=== PATIENT | male | born 1950 | race Caucasian/White ===

== ENCOUNTER → 2018-12-24 07:52 | Outpatient (CLI) | payer MEDICARE, OTHER, SELFPAY ==
[2018-12-24 08:39] LABS: Add Manual Diff / Slide Review NO; Basophils Absolute Auto 100 /uL; Basophils Percent Auto 0.8 %; Eosinophils Absolute Auto 500 /uL; Eosinophils Percent Auto 6.2 %; Hematocrit 48.8 %; Hemoglobin 16.4 g/dL; Lymphocytes Absolute Auto 2100 /uL; Lymphocytes Percent Auto 26.5 %; Mean Corpuscular HGB Conc 33.6 %; Mean Corpuscular Volume 98.3 fL; Monocytes Absolute Auto 700 /uL; Monocytes Percent Auto 8.9 %; Neutrophils Absolute Auto 4600 /uL; Neutrophils Percent Auto 57.6 %; Red Blood Cell Count 4.96 X10^6/uL; Red Cell Distribution Width 14.3 %
[2018-12-24 09:10] LABS: Platelet Count 222 X10^3/uL
[2018-12-24 10:39] LABS: TSH w/ Reflex to FT4 3.08 uIU/mL
[2018-12-24 12:26] LABS: Alanine Aminotransferase 27 IU/L; Albumin 4.2 g/dL; Albumin Globulin Ratio 1.3; Alkaline Phosphatase 58 U/L; Aspartate Aminotransferase 25 IU/L; BUN Creatinine Ratio 21.4; Bilirubin Total 0.6 mg/dL; Blood Urea Nitrogen 15 mg/dL; Carbon Dioxide 21 mmol/L; Chloride 109 mmol/L; Cholesterol 217 mg/dL; Estimated Glomerular Filt Rate > 60.0 mL/min; Globulin 3.3 g/dL; Glucose 95 mg/dL; HDL Cholesterol 49 mg/dL; HEMOLYSIS < 15; LDL Cholesterol Calculated 146 mg/dL; Potassium 4.3 mmol/L; Sodium 139 mmol/L; Total Protein 7.5 g/dL; Triglycerides 111 mg/dL
== END ==
PROVIDERS: Visit Provider Internal Medicine
DX: M15.0 Primary generalized (osteo)arthritis (principal); I10 Essential (primary) hypertension; E78.00 Pure hypercholesterolemia, unspecified; E04.1 Nontoxic single thyroid nodule
CPT/HCPCS: 36415; 80053; 80061; 84443; 85025

== ENCOUNTER → 2018-12-30 13:09 | Outpatient (CLI) | payer MEDICARE, OTHER, SELFPAY ==
--- NOTE | 2018-12-30 | DI.US.S_ITS ---
PROCEDURE: US THYROID INDICATIONS: BILE DUCT DILATION/THYROID NOD TECHNIQUE: Real-time scanning was performed of the thyroid gland, with image documentation. COMPARISON: None. FINDINGS: Right: The right thyroid lobe measures 1.5 x 1.4 x 3.9 cm and contains a single small nodule, measuring up to 9 x 5 x 7 mm at the inferior third of the gland. This is solid, hypoechoic, smoothly marginated and shows no abnormal internal calcifications Left: The left thyroid lobe measures up to 2.1 x 2.2 x 3.4 cm and is slightly enlarged at its middle third by a dominant nodule measuring up to 2.6 x 1.6 x 1.5 cm. This is solid, isoechoic, smoothly marginated and contains no internal calcifications Isthmus: The isthmus appears normal IMPRESSION: Asymmetric thyroid nodules, one each bilaterally, with a small nodule at the inferior third of the right thyroid lobe a dominant nodule measuring up to 2.7 x 1.6 x 1.5 cm at the middle third of the left thyroid lobe. Biopsy of this dominant mass may be warranted depending on clinical status. Dictated by: Josue Olivares M.D. on 12/30/2018 at 17:02 Approved by: Josue Olivares M.D. on 12/30/2018 at 17:04
--- NOTE | 2018-12-30 | DI.US.S_ITS ---
PROCEDURE: US ABDOMEN COMPLETE INDICATIONS: BILE DUCT DILATION/THYROID NOD TECHNIQUE: Real-time scanning was performed of the abdominal and retroperitoneal organs, with image documentation. COMPARISON: None. FINDINGS: Liver: Liver is normal in size and homogeneous in echotexture. A benign-appearing calcification is present within the right hepatic lobe. Gallbladder: The gallbladder is surgically absent. Biliary ducts: Intrahepatic bile ducts are non-dilated. Extrahepatic bile duct caliber measures 11.2 mm. Normal is 6-7 mm or less in diameter, or 10 mm or less post-cholecystectomy. Pancreas: Visualized portions of the pancreas are sonographically normal. Spleen: Spleen is normal in size and homogeneous in echotexture. Kidneys: Kidneys are normal in size and echotexture. Right kidney measures 9.1 cm long; left kidney measures 11.0 cm long. No hydronephrosis or nephrolithiasis. No solid masses. Aorta: Visualized aorta is normal in caliber at less than 3 cm. Iliacs: Proximal common iliac arteries are normal in caliber at less than 2.5 cm. IVC: Intrahepatic inferior vena cava is patent. Miscellaneous: No free abdominal fluid. IMPRESSION: 1. Mild ectasia of the common bile duct which may be associated with prior cholecystectomy. No intrahepatic biliary ductal dilatation. Dictated by: Jerica Webb M.D. on 12/30/2018 at 15:47 Approved by: Jerica Webb M.D. on 12/30/2018 at 15:51
== END ==
PROVIDERS: Visit Provider Internal Medicine
DX: K83.8 Other specified diseases of biliary tract (principal); E04.2 Nontoxic multinodular goiter; Z90.49 Acquired absence of other specified parts of digestive tract
CPT/HCPCS: 76536; 76700

== ENCOUNTER → 2019-01-10 07:56 | Outpatient (CLI) | payer MEDICARE, OTHER, SELFPAY ==
[2019-01-10 10:02] LABS: Free T3, Triiodothyronine Free 3.73 pg/mL (2.77-5.27); Free T4, Direct Thyroxine 0.83 ng/dL (0.78-2.19)
[2019-01-10 10:15] LABS: Thyroid Stimulating Hormone 2.58 uIU/mL (0.47-4.68)
== END ==
PROVIDERS: Visit Provider Internal Medicine
DX: E04.1 Nontoxic single thyroid nodule (principal)
CPT/HCPCS: 36415; 84439; 84443; 84481

== ENCOUNTER → 2019-03-20 07:43 | Outpatient (CLI) | payer MEDICARE, OTHER, SELFPAY ==
[2019-03-20 08:48] LABS: Alanine Aminotransferase 24 IU/L (21-72); Cholesterol 176 mg/dL (140-199); HDL Cholesterol 62 mg/dL (40-60); LDL Cholesterol Calculated 94 mg/dL (<100); Triglycerides 101 mg/dL (35-150)
[2019-03-20 12:28] LABS: Aspartate Aminotransferase 28 IU/L (17-59)
== END ==
PROVIDERS: PCP Internal Medicine; Visit Provider Internal Medicine
DX: E78.00 Pure hypercholesterolemia, unspecified (principal)
CPT/HCPCS: 36415; 80061; 84450; 84460

== ENCOUNTER 2019-04-14 16:18 | Emergency (ER) | payer MEDICARE, OTHER, SELFPAY ==
[2019-04-14] VITALS (12 sets, daily range): BP systolic 151–178; BP diastolic 89–101; PULSE 52–88; RESP 14–21; TEMP 36.6–36.7; O2SAT 95–98
--- NOTE | 2019-04-14 16:37 | DI.CT.S_ITS ---
PROCEDURE: CT HEAD/BRAIN WO CON INDICATIONS: loss of vision on left @ 345pm TECHNIQUE: Noncontrast 4.5 mm thick angled axial sections acquired from the foramen magnum to the vertex, with coronal and sagittal reformats. For radiation dose reduction, the following was used: automated exposure control, adjustment of mA and/or kV according to patient size. COMPARISON: None. FINDINGS: Image quality: Excellent. CSF spaces: Basal cisterns are patent. No extra-axial fluid collections. The ventricles are symmetric in size and shape. Brain: There is a 6.5 x 3.8 x 7 cm focus of intraparenchymal hemorrhage seen is seen within the right frontal lobe, also extending into the posterior right temporal lobe, the posterior right frontal lobe, and the right occipital lobe. There is surrounding edema seen. Mass effect is seen, with midline shift of 4 mm. There is cerebral volume loss for age, with resultant ventricular and sulcal prominence. There are periventricular and deep white matter chronic small vessel ischemic changes. There is intracranial internal carotid artery atherosclerosis. Skull and face: Calvarium and visualized facial bones appear intact, without suspicious lesions. Sinuses: Visualized sinuses and mastoids are clear. IMPRESSION: 7 cm focus of intraparenchymal hemorrhage, which is centered within the right parietal lobe. There is associated mass effect, with 4 mm of midline shift. An urgent or surgical referral is recommended. Note: Critical findings and recommendations discussed by telephone with Dr. Smith at 5 PM on 04/14/19. Dictated by: Pradeep Zarco M.D. on 04/14/2019 at 15:57 Approved by: Pradeep Zarco M.D. on 04/14/2019 at 16:02
[2019-04-14 16:46] LABS: Add Manual Diff / Slide Review NO; Basophils Absolute Auto 100 /uL (0-100); Basophils Percent Auto 0.9 % (0-2); Eosinophils Absolute Auto 200 /uL (0-450); Eosinophils Percent Auto 2.7 % (2-4); Lymphocytes Absolute Auto 2000 /uL (1100-4500); Lymphocytes Percent Auto 22.9 % (25-40); Mean Corpuscular HGB Conc 34.1 % (30-36); Mean Corpuscular Hemoglobin 33.6 PG (26-34); Mean Corpuscular Volume 98.7 fL (80-100); Monocytes Absolute Auto 700 /uL (0-900); Monocytes Percent Auto 8.1 % (3-14); Neutrophils Absolute Auto 5600 /uL (1500-7000); Neutrophils Percent Auto 65.4 % (50-75); Platelet Count 202 X10^3/uL (150-400); Red Blood Cell Count 4.76 X10^6/uL (4.5-5.9); White Blood Cell Count 8.5 X10^3/uL (4.5-11.0)
--- NOTE | 2019-04-14 16:51 | ED.NEUROSD ---
HPI - Neuro Symptoms/Deficit General Chief Complaint: Neuro Symptoms/Deficit Stated Complaint: CONFUSED DIZZY UNABLE TO SEE Time Seen by Provider: 04/14/19 16:37 Source: patient and family () Mode of arrival: ambulatory Limitations: no limitations History of Present Illness HPI Narrative: This is a 68-year-old male comes to the emergency department with complaint of loss of vision on the left side. states that she came home today and patient was at the door. He could not see the car which was in front of him. He seems sort of confused and missing things in his vision. She states that she did notice any obvious speech changes. She did notice any obvious weakness. Patient then started complaining of a severe headache he has been nauseated but not had any vomiting. Patient states that he does not have any chest pain, no shortness of breath. He denies any weakness or numbness in his extremities. He does notice his vision changes. He takes an aspirin daily but denies any other blood thinners. He does take medication for hypertension and dyslipidemia. On Anticoagulants: Yes (ASA 81 mg po daily) Related Data Home Medications Medication Instructions Recorded Confirmed aspirin [Aspirin Low Dose] 81 mg PO DAILY 04/14/19 04/14/19 omeprazole magnesium [Prilosec OTC] 20 mg PO DAILY 04/14/19 04/14/19 Allergies Allergy/AdvReac Type Severity Reaction Status Date / Time No Known Drug Allergies Allergy Verified 04/14/19 16:27 Review of Systems Review of Systems ROS Unobtainable: All systems reviewed & are unremarkable except as noted in HPI and below Eyes Reports loss of vision (Left vision loss) Neurologic Reports loss of vision (Left vision loss) [facility] Social History Smoking Status: Current every day smoker Social History Smoking Status: Current every day smoker Exam Narrative Exam Narrative: GEN: well nourished, well appearing elderly male, alert and oriented x 3, patient appears to be in mild distress. HEENT: Atraumatic, pupils are equal round reactive to light, patient has lateral gaze to the right, he does appear to have vision loss on the left, nares are clear, TMs are clear with no fluid, there is no conjunctival pallor. Throat is clear without any exudates, erythema, tonsillar enlargement or uvular deviation, no obvious facial droop. HEART: Regular rate and rhythm without murmur, clicks, rubs. Pulses are equal in upper and lower extremities LUNGS:Lungs clear to auscultation, no wheezes, rales, crackles, chest moves symmetrically ABD:bowel sounds normal, soft, non-tender, no guarding, rebound, rigidity, no masses noted, no hepatosplenomegaly :No CVA tenderness MSCL: Non-tender, no muscle atrophy, muscles strength 5/5 upper and lower extremities, full range of motion NEURO:CN 2-12 intact, sensation normal, reflexes 2/4 upper and lower extremities. finger nose finger test normal, heel sidhu test normal, no dysarthria although patient has a strong accent. No aphasia appreciated. Patient states he does not feel touch on the left lower upper extremity or left side of the face. Initial Vital Signs Initial Vital Signs: Vital Signs Temperature 98.1 F 04/14/19 16:22 Pulse Rate 88 04/14/19 16:22 Respiratory Rate 14 04/14/19 16:22 Blood Pressure 178/97 H 04/14/19 16:22 Pulse Oximetry 97 04/14/19 16:22 Scores GCS Gilby coma scale eye opening: Spontaneous Kanwal coma scale verbal response: Orientated Kanwal coma scale motor response: Obey commands Kanwal coma scale total score: 15 NIH Stroke Scale Level of Conciousness: Alert, keenly responsive Ask month/age: Answers both questions correctly. Open/close eyes, close hand: Performs both tasks correctly Best gaze horizontal: Forced deviation or total gaze paresis not overcome Visual graves: Complete hemianopia Facial palsy: Minor paralysis, flattened nasolabial fold, asymmetry on smiling Left arm drift: No drift for full 10 sec Right arm drift: No drift for full 10 sec Left leg drift: No drift for full 10 sec Right leg drift: No drift for full 10 sec Limb ataxia: Absent Sensory on face/arms/legs: Severe to total sensory loss, not aware of touch, coma, quadriplegic Best language: No aphasia, normal Dysarthria: Normal Extinction or inattention: Profound vale-inattention. Does not recognize own hand, one side Total NIH Stroke scale score: 9 Course Orders Ordered: ED Orders 04/14/19 16:28 EKG-12 Lead Stat 04/14/19 16:35 Basic Metabolic Panel Stat Complete Blood Count AUTO DIFF Stat Partial Thromboplastin Time Stat Prothrombin Time INR Stat Troponin I Stat 04/14/19 16:37 CT head/brain wo con Stat Urine Drug Screen, Rapid Stat Discontinued Medications Sodium Chloride (Normal Saline 0.9%) 1,000 mls @ 150 mls/hr IV CONT JOSE Last Admin: 04/14/19 16:56 Dose: 150 mls/hr Esmolol HCl (Brevibloc) 2.5 gm in 250 mls @ 0 mls/hr IV TITRATE JOSE; Protocol Last Admin: 04/14/19 17:52 Dose: Not Given Morphine Sulfate (Morphine) 4 mg IV NOW ONE Stop: 04/14/19 18:23 Last Admin: 04/14/19 18:24 Dose: 4 mg Ondansetron HCl (Zofran) 4 mg IV NOW ONE Stop: 04/14/19 16:55 Last Admin: 04/14/19 16:56 Dose: 4 mg Ondansetron HCl (Zofran) 4 mg IV NOW ONE Stop: 04/14/19 19:01 Last Admin: 04/14/19 19:01 Dose: 4 mg Vital Signs - 8 hr 04/14/19 16:22 04/14/19 16:30 04/14/19 16:50 Temperature 98.1 F Pulse Rate 88 82 78 Respiratory Rate 14 20 21 Blood Pressure 178/97 H Blood Pressure [Right Arm] 176/98 H 166/97 H Pulse Oximetry 97 04/14/19 17:00 04/14/19 17:10 04/14/19 17:20 Temperature Pulse Rate 77 73 69 Respiratory Rate 19 18 18 Blood Pressure Blood Pressure [Right Arm] 156/91 H 164/92 H 163/101 H Pulse Oximetry 04/14/19 17:31 04/14/19 17:40 04/14/19 17:50 Temperature Pulse Rate 63 66 64 Respiratory Rate 18 17 18 Blood Pressure Blood Pressure [Right Arm] 151/97 H 157/99 H 165/100 H Pulse Oximetry 98 04/14/19 18:10 04/14/19 18:30 04/14/19 19:05 Temperature 97.8 F Pulse Rate 62 57 L 52 L Respiratory Rate 19 17 17 Blood Pressure Blood Pressure [Right Arm] 160/94 H 151/90 H 158/89 H Pulse Oximetry 96 95 MDM - Neuro Symptoms/Deficit Lab Data Attestation: I reviewed the patient's lab results. Result diagrams: 04/14/19 16:35 04/14/19 16:35 Lab Results 04/14/19 04/14/19 04/14/19 Range/Units 16:35 16:35 16:35 WBC 8.5 (4.5-11.0) X10^3/uL RBC 4.76 (4.5-5.9) X10^6/uL Hgb 16.0 (13.5-17.5) g/dL Hct 47.0 (41-53) % MCV 98.7 (80-100) fL MCH 33.6 (26-34) PG MCHC 34.1 (30-36) % RDW 14.0 (11.6-14.8) % Plt Count 202 (150-400) X10^3/uL Neut % (Auto) 65.4 (50-75) % Lymph % (Auto) 22.9 L (25-40) % [place] % (Auto) 8.1 (3-14) % Eos % (Auto) 2.7 (2-4) % Baso % (Auto) 0.9 (0-2) % Neut # (Auto) 5600 (7337-0559) /uL Lymph # (Auto) 2000 (1128-6776) /uL [place] # (Auto) 700 (0-900) /uL Eos # (Auto) 200 (0-450) /uL Baso # (Auto) 100 (0-100) /uL PT 11.2 (10.1-12.7) SECONDS INR 1.0 (0.9-1.3) APTT 37 H (26.4-36.2) SECONDS Sodium 140 (137-145) mmol/L Potassium 3.7 (3.4-5.1) mmol/L Chloride 107 (98-107) mmol/L Carbon Dioxide 25 (22-32) mmol/L BUN 20 (9-20) mg/dL Creatinine 0.70 (0.66-1.25) mg/dL Estimated GFR > 60.0 (>60) mL/min BUN/Creatinine Ratio 28.6 H (6-22) Glucose 97 (80-110) mg/dL Calcium 9.3 (8.4-10.2) mg/dL Troponin I < 0.012 (0.01-0.034) ng/mL Point of Care Testing Glucose POC [address] scan - head: Radiologist's impression: Prelim report was called to me with a 7 cm focus of intraparenchymal hemorrhage, centered in the right parietal lobe with associated mass effect with 4 mm midline shift. Rod Nayak 68 M [address] [address] [address] Scan Report Signed Patient: Rod Nayak HMR#: [id number] : 1950cct:[id number] Age/Sex: 68 / MDate of Service: 04/14/19 Loc: ED Accession Number: [id number] Procedure: CT head/brain wo con Ordering Provider: Pita Smith D.O. PROCEDURE: CT HEAD/BRAIN WO CON INDICATIONS: loss of vision on left @ 345pm TECHNIQUE: Noncontrast 4.5 mm thick angled axial sections acquired from the foramen magnum to the vertex, with coronal and sagittal reformats. For radiation dose reduction, the following was used: automated exposure control, adjustment of mA and/or kV according to patient size. COMPARISON: None. FINDINGS: Image quality: Excellent. CSF spaces: Basal cisterns are patent. No extra-axial fluid collections. The ventricles are symmetric in size and shape. Brain: There is a 6.5 x 3.8 x 7 cm focus of intraparenchymal hemorrhage seen is seen within the right frontal lobe, also extending into the posterior right temporal lobe, the posterior right frontal lobe, and the right occipital lobe. There is surrounding edema seen. Mass effect is seen, with midline shift of 4 mm. There is cerebral volume loss for age, with resultant ventricular and sulcal prominence. There are periventricular and deep white matter chronic small vessel ischemic changes. There is intracranial internal carotid artery atherosclerosis. Skull and face: Calvarium and visualized facial bones appear intact, without suspicious lesions. Sinuses: Visualized sinuses and mastoids are clear. IMPRESSION: 7 cm focus of intraparenchymal hemorrhage, which is centered within the right parietal lobe. There is associated mass effect, with 4 mm of midline shift. An urgent or surgical referral is recommended. Note: Critical findings and recommendations discussed by telephone with Dr. Smith at 5 PM on 04/14/19. Dictated by: Pradeep Zarco M.D. on 04/14/2019 at 15:57 Approved by: Pradeep aZrco M.D. on 04/14/2019 at 16:02 ECG Data Attestation: I personally reviewed and interpreted this ECG as follows: Interpretation: Sinus rhythm rate 84 P are 142 QRS of 101 QTC of 425. No ST elevation. Incomplete right bundle branch block. MDM Narrative Medical decision making narrative: Patient's head CT shows intraparenchymal hemorrhage. Patient is on aspirin. We do not have platelets available here for transfusion. Patient right now is protecting her airway appropriately. Images were pushed to [facility], patient and family are willing for intervention and are full code at this time. Patient's head of bed was placed at 30?. Spoke with Dr. Jones the utility pipe layer at [facility] who requests that the systolic blood pressure be kept lower than 160, he recommends a nicardipine drip if it is not staying below this. Patient has been protecting his airway without issue. Patient, and I all discussed treatment opotions they are comfortable with transfer. They are comfortable with intervention as needed as well as full code. We do not have platelets available here. Patient is not on any blood thinners per . Critical Care Time Critical Care Time: Yes Total Critical Care Time: 140 Attestation: The high probability of a clinically significant, sudden or life threatening deterioration of the [cardiac] system(s) required my full and direct attention, intervention and personal management. The aggregate critical care time was [140] minutes. This time is in addition to time spent performing reported procedures but includes the following: [x] Data Review and interpretation [x] Patient assessment and monitoring of vital signs [x] Documentation [] Medication orders and management Discharge Plan Departure Patient Disposition: [facility] Clinical Impression: Intraparenchymal hemorrhage of brain Discharge Date/Time: 04/14/19 19:27 Interventions: ED Discharge Assessment Last Done: 04/14/19 19:22 Prescriptions: No Action aspirin [Aspirin Low Dose] 81 mg Tablet,Delayed Release (Dr/Ec) 81 mg PO DAILY RF: 0 Prilosec OTC 20 mg Tablet,Delayed Release (Dr/Ec) 20 mg PO DAILY RF: 0 Referrals: Ariel Cochran MD [Primary Care Provider] -
[2019-04-14 16:52] LABS: Prothrombin Time 11.2 SECONDS (10.1-12.7)
[2019-04-14 16:55] LABS: PTT Partial Thromboplastin Tim 37 SECONDS (26.4-36.2)
[2019-04-14 16:56] LABS: BUN Creatinine Ratio 28.6 (6-22); Blood Urea Nitrogen 20 mg/dL (9-20); Calcium 9.3 mg/dL (8.4-10.2); Carbon Dioxide 25 mmol/L (22-32); Chloride 107 mmol/L (98-107); Estimated Glomerular Filt Rate > 60.0 mL/min (>60); Glucose 97 mg/dL (80-110); HEMOLYSIS < 15 (0-50); Potassium 3.7 mmol/L (3.4-5.1); Sodium 140 mmol/L (137-145)
[2019-04-14] MEDS: ONDANSETRON 4 MG/2 ML INJ IV ×2 (16:56→19:01)
[2019-04-14] MEDS: SODIUM CHLORIDE 0.9% 1,000 ML 150 ML IV (16:56)
[2019-04-14 17:07] LABS: Troponin I < 0.012 ng/mL (0.01-0.034)
[2019-04-14] MEDS: MORPHINE 4 MG/ML INJ IV (18:24)
--- NOTE | 2019-04-14 18:37 | CM.SWNOTE ---
ED REEL CART OPERATOR Note HAND BLOCKER was asked to provide support to pt's as she was alone in the room with pt who had a stroke and is to be transferred to [facility]. Introduced myself and informed pt and his that I was there for support. Provided her with paper, encouraged her to write down anything she thought of and explained that in times of crisis we frequently have difficulty remembering. Pt's mentioned that her brother and [id number] live in [facility] and offered to come to the hospital to be with her, but she was not sure if she needed it as she didn't know what she needed. HAND BLOCKER provided validation and explained that it was perfectly normal not to know what she needed. REEL CART OPERATOR inquired if it was a positive relationship and if it is, to take them up on their offer. Explained that the whole experience in a large hospital can feel overwhelming and having someone with her may be important. She agreed that it might be helpful not to be alone and also contacted a neighbor and provided her with a urrutia. REEL CART OPERATOR checked in again; neighbor was present and pt's was not aware of any social work needs.
--- NOTE | 2019-05-12 17:21 | PC.NURSE ---
IV stop time for transfer at 1925 04/14/2019 total intake 450 ml 0.9% NS
== END 2019-04-14 19:27 | disposition short-term general hospital (02) ==
PROVIDERS: Emergency Provider Emergency Medicine; PCP Internal Medicine
DX: I61.8 Other nontraumatic intracerebral hemorrhage (principal); Z79.01 Long term (current) use of anticoagulants
CPT/HCPCS: 36591; 70450; 80048; 82962; 84484; 85025; 85610; 85730; 93005; 96361; 96374; 96375; 96376; 99285; 99291; 99292; J2270; J2405

== ENCOUNTER → 2019-05-20 14:46 | Outpatient (CLI) | payer MEDICARE, OTHER, SELFPAY ==
--- NOTE | 2019-05-20 14:54 | DI.CT.S_ITS ---
PROCEDURE: CT HEAD/BRAIN WO CON INDICATIONS: Nontraumatic intracerebral hemorrhage TECHNIQUE: Noncontrast 4.5 mm thick angled axial sections acquired from the foramen magnum to the vertex, with coronal and sagittal reformats. For radiation dose reduction, the following was used: automated exposure control, adjustment of mA and/or kV according to patient size. COMPARISON: [facility], CT, CT HEAD/BRAIN WO CON, 04/14/2019, 16:44. FINDINGS: Image quality: Excellent. CSF spaces: Basal cisterns are patent. No extra-axial fluid collections. Ventricles are asymmetric in size and shape associated with treatment of the large right occipital parietal hemorrhage that had been present acutely 04/14/19. Brain: Slight residual midline shift from right to left. No new intracranial masses or hemorrhage. There is only a small degree of residual hemorrhage at the posterior occipital parietal junction on the right Palafox-white matter interface is normal. Skull and face: Calvarium and visualized facial bones are intact, except for a large right temporal parietal craniotomy, without suspicious lesions that would indicate presence of infection or neoplasm. Sinuses: Visualized sinuses and mastoids are clear. IMPRESSION: A large prior hemorrhage in the right hemisphere has been largely evacuated through a wide right temporal parietal craniotomy, and mild residual edema within the right hemisphere from a prior ischemic injury produces now only a mild degree of [id number] shift of midline structures. No new injury is seen, no new hemorrhage is present. Expected postoperative appearance. At this time hydrocephalus of the left ventricular system or significant left hemispheric ischemic injury is not seen. Dictated by: Josue Olivares M.D. on 05/20/2019 at 15:31 Approved by: Josue Olivares M.D. on 05/20/2019 at 15:38
== END ==
PROVIDERS: PCP Internal Medicine; Visit Provider Neurological Surgery
DX: I61.1 Nontraumatic intracerebral hemorrhage in hemisphere, cortical (principal)
CPT/HCPCS: 70450

== ENCOUNTER → 2019-06-24 17:02 | Outpatient (CLI) | payer MEDICARE, OTHER, SELFPAY ==
--- NOTE | 2019-06-24 | DI.MRI.S_ITS ---
PROCEDURE: MR HEAD/BRAIN WO/W CON INDICATIONS: HEMORRHAGE TECHNIQUE: Noncontrast axial T1 spin echo, axial T2 fast spin echo, sagittal and axial FLAIR, coronal T2 fast spin echo, axial gradient echo, axial diffusion and ADC through the brain. After the administration of contrast, axial and coronal 3D VIBE or T1 spin echo with fat saturation through the brain. COMPARISON: [facility], CT, CT HEAD/BRAIN WO CON, 04/14/2019, 16:44. [facility], CT, CT HEAD/BRAIN WO CON, 05/20/2019, 14:51. FINDINGS: Image quality: Excellent. CSF Spaces: Basal cisterns are patent. No extra-axial fluid collections. Ventricles are again seen to be asymmetric in size and shape due to the craniotomy on the right and encephalomalacia and residual blood products from large right parietal hemorrhage identified 04/14/19. The blood products on precontrast T1 imaging have diminished in overall quantity and mass effect from the followup CT scanning 05/20/19, but remain heterogeneous and predominantly elevated in T1 signal with no identifiable internal focus of contrast enhancement on postcontrast T1 imaging that would indicate presence of a neoplasm or vascular malformation in this area. Brain: No midline shift. No intracranial bleeds or masses. No abnormal intracranial enhancement. The brainstem appears normal. Diffusion-weighted images demonstrate no acute ischemic insults. No chronic ischemic insults. Normal intravascular flow voids are present. Skull and face: Calvarial marrow is normal in signal. Orbits appear normal. Sinuses: Sinuses and mastoids appear clear. IMPRESSION: Slowly resolving mass effect from blood products related to a large right posterior parietal hemorrhagic event which occurred 04/14/19. The contrast-enhanced portion of the study shows no evidence of underlying neoplasm or vascular malformation as cause of hemorrhage in that area. No new lesion is identified. Dictated by: Josue Olivares M.D. on 06/25/2019 at 8:28 Approved by: Josue Olivares M.D. on 06/25/2019 at 8:30
== END ==
PROVIDERS: Family Provider Internal Medicine; PCP Internal Medicine; Visit Provider Psychiatry & Neurology Neurology
DX: Z86.79 Personal history of other diseases of the circulatory system (principal); R90.89 Other abnormal findings on diagnostic imaging of central nervous system; G93.89 Other specified disorders of brain; Z98.890 Other specified postprocedural states
CPT/HCPCS: 70553; A9579

== ENCOUNTER → 2019-09-08 12:47 | Outpatient (CLI) | payer MEDICARE, OTHER, SELFPAY ==
--- NOTE | 2019-09-08 | DI.MRI.S_ITS ---
PROCEDURE: MR HEAD/BRAIN WO/W CON INDICATIONS: abnormal findings on previous mri TECHNIQUE: Noncontrast axial T1 spin echo, axial T2 fast spin echo, sagittal and axial FLAIR, coronal T2 fast spin echo, axial gradient echo, axial diffusion and ADC through the brain. After the administration of contrast, axial and coronal T1 spin echo with fat saturation through the brain. COMPARISON: [facility], CT, CT HEAD/BRAIN WO CON, 05/20/2019, 14:51. [facility], CT, CT HEAD/BRAIN WO CON, 04/14/2019, 16:44. [facility], MR, MR HEAD/BRAIN WO/W CON, 06/24/2019, 17:20. FINDINGS: Image quality: There is susceptibility artifact seen, which is associated with dental hardware. CSF spaces: Basal cisterns are patent. No extra-axial fluid collections. There is ex vacuo dilatation seen of the posterior horn of the right lateral ventricle. Brain: Findings of prior right parietal hemorrhage can be seen, with partial evacuation compared to the prior examination. Brain parenchymal volume loss and encephalomalacia can be seen. No definite abnormal enhancement can be seen, although there is an area seen within the right frontal lobe that is hyperintense on both precontrast T1-weighted imaging and postcontrast T1-weighted imaging. No midline shift. There is cerebral volume loss for age. There is periventricular white matter chronic small vessel ischemic change. The brainstem appears normal. Diffusion-weighted images demonstrate no acute ischemic insults. No chronic ischemic insults. Normal intravascular flow voids are present. Skull and face: Right sided craniotomy changes are seen. Calvarial marrow is normal in signal. Orbits appear normal. Sinuses: Sinuses and mastoids appear clear. IMPRESSION: Prior right parietal hemorrhagic infarct, with apparent evacuation. There is encephalomalacia and volume loss seen, with ex vacuo dilatation of the posterior horn of the right lateral ventricle. No findings of acute or subacute infarction can be seen. No new hemorrhage can be seen. Dictated by: Pradeep Zarco M.D. on 09/08/2019 at 16:39 Approved by: Pradeep Zarco M.D. on 09/08/2019 at 16:42
== END ==
PROVIDERS: PCP Internal Medicine; Visit Provider Physician Assistant
DX: R90.89 Other abnormal findings on diagnostic imaging of central nervous system (principal); I69.398 Other sequelae of cerebral infarction; G93.89 Other specified disorders of brain
CPT/HCPCS: 70553; A9579

== ENCOUNTER → 2019-09-18 18:48 | Outpatient (ROUT) | payer MEDICARE, OTHER, SELFPAY ==
[2019-09-18 19:00] LABS: Alanine Aminotransferase 23 IU/L (21-72); Aspartate Aminotransferase 24 IU/L (17-59); BUN Creatinine Ratio 21.7 (6-22); Blood Urea Nitrogen 13 mg/dL (9-20); Calcium 9.6 mg/dL (8.4-10.2); Carbon Dioxide 26 mmol/L (22-32); Chloride 104 mmol/L (98-107); Cholesterol 157 mg/dL (140-199); Estimated Glomerular Filt Rate > 60.0 mL/min (>60); Glucose 98 mg/dL (80-110); HDL Cholesterol 54 mg/dL (40-60); HEMOLYSIS < 15 (0-50); LDL Cholesterol Calculated 75 mg/dL (<100); Potassium 4.1 mmol/L (3.4-5.1); Sodium 140 mmol/L (137-145); Triglycerides 141 mg/dL (35-150)
== END ==
PROVIDERS: PCP Internal Medicine; Visit Provider Internal Medicine
DX: I10 Essential (primary) hypertension (principal); E78.00 Pure hypercholesterolemia, unspecified
CPT/HCPCS: 80048; 80061; 84450; 84460

== ENCOUNTER → 2019-10-30 09:44 | Oncology outpatient (ONC) | payer MEDICARE, OTHER, SELFPAY ==
--- NOTE | 2019-10-30 10:28 | P.CONONC_ITS ---
History of Present Illness - Data of Consult Patient: new to practice Consult date: 10/30/19 Requesting Physician: Yesy Cortes MD Primary Care Provider: Yesy Cortes MD - Consult Narrative Reason for consult: Stroke Narrative: Rod Nayak is a 69 year old male. In April 14, 2019, he developed right parietal/occipital intracranial hemarrhage. He was evaluated first at ER and later transferred to [facility]. His first presentation was left sided vision loss. He was able to walk to ER accompanied by his , but evolved quickly into left sided faccid paralysis with severe headache. On April 16, 2019, he underwent right-sided decompressive craniectomy with evacuation of intraparenchymal hematoma by Dr. Rohit López. The patient had an unremarkable recovery and was discharged on 05/05/2019 to neurological rehab. The patient said that he gained some strength of his left leg and arm. His left leg regained strength better than his left arm. On 06/26/2019, he underwent right autologous cranioplasty for cranial defect. He was referred to [facility] for evaluation of possible cause of his hemorrhagic stroke. Gerd reports no previous history of prolong bleeding after trauma, no history of spontaneous nose bleeding, joint bleeding, BRBPR or hematuria. He also denies any family history of bleeding disorder. He admits to have medical problems including hypertension, hyperlipidemia and smoking. He also has chronic arthritis and has been using aspirin and ibuprofen regularly. CC: Dougie Barragan MD Home Medications and Allergies Home Medications Medication Instructions Recorded Confirmed Type omeprazole magnesium [Prilosec OTC] 20 mg PO DAILY 04/14/19 10/30/19 History Tylenol Extra Strength 500 mg Q4-6H PRN 10/30/19 10/30/19 History atorvastatin 10 mg PO DAILY 10/30/19 10/30/19 History gabapentin 900 mg PO BEDTIME 10/30/19 10/30/19 History levetiracetam [Keppra] 250 mg PO Q12H 10/30/19 10/30/19 History losartan 25 mg PO DAILY 10/30/19 10/30/19 History ondansetron HCl [Zofran] 4 mg PO Q6H PRN 10/30/19 10/30/19 History oxycodone 5 mg PO BID PRN 10/30/19 10/30/19 History Allergies Allergy/AdvReac Type Severity Reaction Status Date / Time No Known Drug Allergies Allergy Verified 04/14/19 16:27 Medical History - Medical, Surgical, Family History Medical History: Medical History (Last Updated 10/30/19 @ 22:29 by Dougie Barragan MD) Arthritis Negro esophagus Fibromyalgia Hyperlipidemia Hypertension Smoking Surgical History: Surgical History (Last Updated 10/30/19 @ 22:31 by Dougie Barragan MD) History of cholecystectomy Onset Date: ~1979 History of hernia repair Onset Date: ~2005 History of varicose vein stripping Onset Date: ~1995 Hx of appendectomy Onset Date: ~1967 - Social History Smoking Status: Current every day smoker Alcohol Intake: current Review of Systems All systems PM: reviewed and no additional remarkable complaints except as stated Exam Vital signs: Last Vital Signs Temp 98.1 F 10/30/19 10:29 Pulse 57 L 10/30/19 10:29 Resp 18 10/30/19 10:29 BP 115/74 10/30/19 10:29 Pulse Ox 98 10/30/19 10:29 ECOG 1 - Constitutional positive no acute distress, positive average body habitus, positive chronically ill appearing, positive cooperative - Routine HEENT Exam Head: Present: normocephalic, atraumatic Eye: Present: EOMI, PERRL, normal accommodation. Absent: conjunctival icterus, scleral injection ENT: Present: mucous membranes moist - Routine Neck Exam Present: supple. Absent: lymphadenopathy, thyromegaly - Routine Chest/Breast/Axilla Exam Chest wall exam standard: Absent: tenderness Axillae: Absent: lymphadenopathy - Routine Respiratory Exam Present: Clear to auscultation bilaterally. Absent: wheezes - Routine Cardiovascular Exam Present: RRR, S1, S2. Absent: murmur, gallop, rubs - Routine Abdominal Exam Present: soft. Absent: distended, rebound, organomegaly - Routine Extremities Exam Absent: edema - Routine Neurological Exam Present: alert, oriented X3, sensory deficit, motor deficit, abnormal gait, moving all extremities, facial asymmetry, normal speech. Absent: normal reflexes, normal tone - Routine Psychiatric Exam Present: normal affect, normal thought process, cooperative Results - Labs Normal CBC. No thrombocytopenia. Assessment and Plan (1) Stroke due to intracerebral hemorrhage Overview: 69 year old with right parietal/occipital intracranial hemarrhage requiring right-sided decompressive craniectomy with evacuation of intraparenchymal hematoma on 04/16/2019. He does not have personal history of abnormal bleeding events for examples, prolong bleeding after trauma, spontaneous nose bleeding, spontaneous joint bleeding, BRBPR or hematuria of unknown reason etc. Nor does he have family history of bleeding. He admits he has multiple e medical problems including hypertension, hyperlipidemia and smoking. He also has chronic arthritis and has been using aspirin and ibuprofen regularly. Assessment and Plan; I explained to the patient that his hemorrhagic stroke probably most likely related to his medical comorbidities including hypertension, hypercholesterolemia as well as long-term use of aspirin and ibuprofen. Patient said that he uses aspirin and Advil for osteoarthritis. He denies any previous history of abnormal bleeding and denies any family history of stroke or family history of bleeding events. I reviewed patient's laboratory tests, No thrombocytopenia. I talked with him that that I do not think he has any primary bleeding disorder. I do not think that extensive hematological workup is warranted. I recommend the patient continue follow-up with his primary care provider. No follow-up is scheduled. Please call if there is any new issue that need further evaluation.
[2019-10-30 10:29] VITALS: BP 115/74; PULSE 57; RESP 18; TEMP 36.7; O2SAT 98
== END ==
PROVIDERS: Family Provider Internal Medicine; PCP Internal Medicine; Visit Provider Internal Medicine Hematology & Oncology
DX: I69.254 Hemiplegia and hemiparesis following other nontraumatic intracranial hemorrhage affecting left non-dominant side (principal); M19.90 Unspecified osteoarthritis, unspecified site; I10 Essential (primary) hypertension; E78.5 Hyperlipidemia, unspecified; M79.7 Fibromyalgia; F17.200 Nicotine dependence, unspecified, uncomplicated; Z79.82 Long term (current) use of aspirin
CPT/HCPCS: 99204; 99214

== ENCOUNTER 2020-01-23 17:13 | Emergency (ER) | payer MEDICARE, OTHER, SELFPAY ==
--- NOTE | 2020-01-23 17:14 | DI.CT.S_ITS ---
PROCEDURE: CT HEAD/BRAIN WO CON INDICATIONS: code stroke TECHNIQUE: Noncontrast 4.5 mm thick angled axial sections acquired from the foramen magnum to the vertex, with coronal and sagittal reformats. For radiation dose reduction, the following was used: automated exposure control, adjustment of mA and/or kV according to patient size. COMPARISON: [facility], CT, CT HEAD/BRAIN WO CON, 05/20/2019, 14:51. [facility], MR, MR HEAD/BRAIN WO/W CON, 09/08/2019, 12:59. FINDINGS: Image quality: Excellent. CSF spaces: Basal cisterns are patent. No extra-axial fluid collections. Ex-vacuo dilatation of the right lateral ventricle involving the parietal and occipital portions. The ventricles are otherwise symmetric in size and shape. Brain: No acute intracranial bleeds or masses. Focal region of encephalomalacia within the right parietal lobe, compatible with postsurgical sequelae, as before. There is cerebral volume loss for age, with resultant ventricular and sulcal prominence. There are periventricular and deep white matter chronic small vessel ischemic changes. There is intracranial internal carotid artery atherosclerosis. Skull and face: Right frontoparietal craniotomy. Calvarium and visualized facial bones otherwise appear intact, without suspicious lesions. Sinuses: Visualized sinuses and mastoids are clear. IMPRESSION: 1. No acute intracranial abnormality. 2. Postsurgical sequelae. Dictated by: Rosalina Paulson M.D. on 01/23/2020 at 17:21 Approved by: Rosalina Paulson M.D. on 01/23/2020 at 17:23
[2020-01-23 17:19] VITALS: BP 161/97; PULSE 86; RESP 24; TEMP 36.4; O2SAT 98
--- NOTE | 2020-01-23 17:54 | ED.NEUROSD ---
HPI - Neuro Symptoms/Deficit General Chief Complaint: Neuro Symptoms/Deficit Stated Complaint: Stroke Time Seen by Provider: 01/23/20 17:24 Source: patient, family and EMS Mode of arrival: Ambulatory History of Present Illness HPI Narrative: 69-year-old gentleman with a large hemorrhagic stroke in March of 2016 with persistent left-sided weakness and left-sided neglect as well as hypertension and hyperlipidemia presents after an episode of slightly blurry vision this afternoon. He had gone to his usual pool physical therapy and was having some left shoulder pain and a bit of dizziness(both chronic issues and being appropriately rehabilitated). When he got home he was reading some material and specifically had difficulty reading the very fine print in a [employer] Flyer. This lasted for a few moments only, and was preceded by a brief episode of ?seeing stars. On arrival in the emergency room he is completely back to his baseline with no new symptoms and no continued visual changes. On Anticoagulants: No Related Data Home Medications Medication Instructions Recorded Confirmed omeprazole magnesium [Prilosec OTC] 20 mg PO DAILY 04/14/19 01/23/20 acetaminophen 500 - 1,000 mg PO Q6H PRN 10/30/19 01/23/20 atorvastatin 10 mg PO BEDTIME 10/30/19 01/23/20 gabapentin 900 mg PO BEDTIME 10/30/19 01/23/20 ondansetron HCl [Zofran] 4 mg PO DAILY PRN 10/30/19 01/23/20 oxycodone 5 - 10 mg PO BEDTIME 10/30/19 01/23/20 Mayra Capsule 1 cap PO DIRECTED 01/23/20 01/23/20 cyclobenzaprine 10 mg PO BEDTIME 01/23/20 01/23/20 docusate sodium [Stool Softener] 100 mg PO DAILY PRN 01/23/20 01/23/20 fluticasone propionate [Flonase 1 spray INTRANASAL DAILY 01/23/20 01/23/20 Allergy Relief] levocetirizine [Xyzal] 5 mg PO QPM 01/23/20 01/23/20 losartan 50 mg PO BID 01/23/20 01/23/20 ranitidine HCl [Acid Control 150 mg PO DIRECTED 01/23/20 01/23/20 (ranitidine)] Allergies Allergy/AdvReac Type Severity Reaction Status Date / Time No Known Drug Allergies Allergy Verified 04/14/19 16:27 Review of Systems Review of Systems Narrative: Mild left-sided neglect, left-sided weakness, left shoulder and trapezius tightness after swimming causing dizziness No fevers, cough, chills, abdominal pain, vomiting, diarrhea, skin changes or rashes He is alert appropriate and able to cooperate with history Patient History Medical History (Updated 01/23/20 @ 18:34 by Fior Green MD) Arthritis (Acute) Negro esophagus (Acute) Fibromyalgia (Acute) Hyperlipidemia (Acute) Hypertension (Acute) Smoking (Acute) Stroke due to intracerebral hemorrhage (Acute) Surgical History History of cholecystectomy (Acute ~1979) History of hernia repair (Acute ~2005) History of varicose vein stripping (Acute ~1995) Hx of appendectomy (Acute ~1967) Social History Smoking Status: Current every day smoker alcohol intake: current Smoking Status: Current every day smoker alcohol intake frequency: 0-2 drinks per day Substance Use Type: does not use Exam Narrative Exam Narrative: General: Alert and appropriate. Have mild dysarthria at baseline, mild left-sided neglect with cognitive awareness to try and correct for this, able to cooperate with history and exam HEENT: Pupils equal and reactive, neck is supple. No visual disturbance and able to read small print in a magazine at this time Neck: No cervical adenopathy no jugular venous distension, trapezius muscle spasm on the left Chest: Completely clear to auscultation Cardiac: Regular rate and rhythm without murmurs Abdomen: Soft and nontender Skin: No rashes, well perfused Neurologic: Left-sided weakness with contractures developing the left hand Psych: Good insight, appropriate affect Initial Vital Signs Initial Vital Signs: Vital Signs Temperature 97.6 F 01/23/20 17:19 Pulse Rate 86 01/23/20 17:19 Respiratory Rate 24 01/23/20 17:19 Blood Pressure 161/97 H 01/23/20 17:19 Pulse Oximetry 98 01/23/20 17:19 Course Orders Ordered: ED Orders 01/23/20 17:14 CT head/brain wo con Stat Vital Signs Vital signs: Vital Signs - 8 hr 01/23/20 17:19 Temperature 97.6 F Pulse Rate 86 Respiratory Rate 24 Blood Pressure 161/97 H Pulse Oximetry 98 MDM - Neuro Symptoms/Deficit Medical Records Attestation: I reviewed the patient's medical records. ECG Data Attestation: I personally reviewed and interpreted this ECG as follows: Interpretation: Ventricular rate at 63 Sinus rhythm Partial right bundle branch block no acute ischemic changes MDM Narrative Medical decision making narrative: 69-year-old gentleman with a large hemorrhagic stroke last March. Recovering nicely with a very brief episode of slightly blurred vision. Explanations and possibilities include mild dehydration, migraine, partial seizure, doubt recurrence stroke however his blood pressure is elevated so med is possibility. At this time, there is no additional workup required he has had full stroke workup, he is appropriately treating his blood pressure and following up with his primary care doctor as well as aggressive physical therapy. I believe it is safe for him to go home and will have him continue with all current care. Discharge Plan Departure Patient Disposition: Home Clinical Impression: Changes in vision Instructions: DI for Stroke-Ischemic Activity Restrictions/Additional Instructions: Thank you for coming in today. Your head CT do NOT suggest any new bleeding. Your exam does not suggest a new stroke at this time. Your blood pressure is moderately high however it sounds like Dr. Cortes is treating this appropriately and you do need to make sure that you take your evening blood pressure medications today. I am not sure why you had this brief episode of blurred vision associated with some spots in your peripheral visual field. It may be that you are slightly dehydrated after your pool workout today. Migraine headache can sometimes cause transiently blurred vision. Occasionally you can develop a mild seizure focus in your brain as it heals from a previous stroke and seizures can have all sorts of presentations from very mild to quite impressive. At this point, it does not appear related to a new stroke or other life-threatening event. As you are currently doing all of your stroke therapy and following up closely with your primary care physician I do not believe that we need to do additional workup or hospital admission at this time I would encourage you to continue to keep track of your blood pressures and follow up with Dr. Cortes as well as taking all of your blood pressure medications. I would also encourage you to make sure that you are drinking plenty of fluids after your pool workouts. If you have recurrent symptoms that are lasting for any extended period of time, associated with worsening weakness, altered mental status or other issues it would be appropriate to come to the emergency department. I hope that your recovery continues and you do not need a repeat visit to the emergency room. Prescriptions: No Action atorvastatin 10 mg Tablet 10 mg PO BEDTIME RF: 0 ondansetron HCl [Zofran] 4 mg Tablet 4 mg PO DAILY PRN (Reason: Nausea) RF: 0 acetaminophen 500 mg Tablet 500 - 1,000 mg PO Q6H PRN (Reason: pain) RF: 0 gabapentin 300 mg Capsule 900 mg PO BEDTIME RF: 0 oxycodone 5 mg Tablet 5 - 10 mg PO BEDTIME RF: 0 Mayra Capsule 1 cap PO DIRECTED RF: 0 losartan 50 mg Tablet 50 mg PO BID RF: 0 cyclobenzaprine 10 mg Tablet 10 mg PO BEDTIME RF: 0 ranitidine HCl [Acid Control (ranitidine)] 150 mg Tablet 150 mg PO DIRECTED RF: 0 docusate sodium [Stool Softener] 100 mg Capsule 100 mg PO DAILY PRN (Reason: constipation) RF: 0 fluticasone propionate [Flonase Allergy Relief] 50 mcg/actuation [place],Suspension 1 spray INTRANASAL DAILY RF: 0 levocetirizine [Xyzal] 5 mg Tablet 5 mg PO QPM RF: 0 Prilosec OTC 20 mg Tablet,Delayed Release (Dr/Ec) 20 mg PO DAILY RF: 0 Referrals: Yesy Cortes MD [Primary Care Provider] -
[2020-01-23 18:47] VITALS: BP 119/91; PULSE 81; RESP 18; TEMP 36.8; O2SAT 98
== END 2020-01-23 18:47 | disposition home or self-care (01) ==
LOC: ED 18:02
PROVIDERS: Emergency Provider Emergency Medicine; Family Provider Internal Medicine; PCP Internal Medicine
DX: H53.8 Other visual disturbances (principal); I10 Essential (primary) hypertension; E78.5 Hyperlipidemia, unspecified; R29.898 Other symptoms and signs involving the musculoskeletal system
CPT/HCPCS: 70450; 93005; 93010; 99282; 99284

== ENCOUNTER → 2020-05-16 15:14 | Outpatient (CLI) | payer MEDICARE, OTHER, SELFPAY ==
[2020-05-17 08:56] LABS: COVID19 Sendout Not Detected (Not Detect)
== END ==
PROVIDERS: Family Provider Internal Medicine; PCP Internal Medicine; Visit Provider Physician Assistant
DX: Z01.812 Encounter for preprocedural laboratory examination (principal)
CPT/HCPCS: 87635

== ENCOUNTER 2020-05-19 11:30 | Day surgery (SDC) | payer MEDICARE, OTHER, SELFPAY ==
[2020-05-19] VITALS (8 sets, daily range): BP systolic 100–141; BP diastolic 71–91; PULSE 57–67; RESP 12–20; TEMP 35.8–36.6; O2SAT 92–96; BMI 26.5
--- NOTE | 2020-05-19 | PATH_ITS ---
[facility] Accession Number: [id number] . 01 Material submitted: . PART A: esophagus - ESOPHAGUS AT 36CM PART B: esophagus - ESOPHAGUS AT 35CM . 02 Diagnosis: A. Esophagus at 36 cm, Biopsy: Proximal gastric-type mucosa with mild chronic inflammation. Negative for specialized intestinal metaplasia, dysplasia or malignancy. . B. Esophagus at 35 cm, Biopsy: Proximal gastric-type mucosa with specialized intestinal metaplasia, consistent with Negro's esophagus. Negative for dysplasia and malignancy. [facility] 05/21/2020 1048 Local . 02 Electronically signed: . Farshad Marquez MD, PhD, Pathologist NPI- [id number] . 01 Gross description: . Part A: ESOPHAGUS AT 36CM: Received in formalin are 3 fragment(s) of hercules, soft tissue measuring 0.3 x 0.2 x 0.1 cm to 0.2 x 0.1 x 0.1 cm submitted entirely in 1 cassette(s) Part B: ESOPHAGUS AT 35CM: Received in formalin are 3 fragment(s) of hercules, soft tissue measuring 0.3 x 0.3 x 0.2 cm to 0.2 x 0.2 x 0.2 cm submitted entirely in 1 cassette(s) /QBJ 05/20/2020 0742 Local . 02 Pathologist provided ICD-10: K22.70 . 02 CPT . 914980, [id number] Performed at: 01 [facility] [address], [place], [place] [id number] MD Gerson Wasserman MD Phone: [phone] Performed at: 02 [facility] [address] [place], [place] [id number] MD Kelley Robledo MD Phone: [phone]
[2020-05-19] MEDS: SODIUM CHLORIDE 0.9% 1,000 ML 100 ML IV (12:55)
--- NOTE | 2020-05-19 13:21 | PM.HP.1 ---
History of Present Illness History of Present Illness Date Patient Seen: 05/19/20 Time Patient Seen: 13:21 Chief complaint: [id number] Narrative: History of Negro's esophagus Patient History Medical History (Updated 02/07/20 @ 00:00 by ) Arthritis (Acute) Negro esophagus (Acute) Fibromyalgia (Acute) Hyperlipidemia (Acute) Hypertension (Acute) Smoking (Acute) Stroke due to intracerebral hemorrhage (Acute) Surgical History History of cholecystectomy (Acute ~1979) History of hernia repair (Acute ~2005) History of varicose vein stripping (Acute ~1995) Hx of appendectomy (Acute ~1967) Family & Social History Social History: household members spouse Tobacco & Substance use: Tobacco type cigarettes Smoking Status Former smoker Smoking packs per day 1 alcohol intake current alcohol intake frequency 0-2 drinks per day Substance Use Type does not use Meds Home Medications and Allergies Home Medications Medication Instructions Recorded Confirmed Type omeprazole magnesium [Prilosec OTC] 40 mg PO DAILY 04/14/19 05/19/20 History acetaminophen 500 - 1,000 mg PO Q6H PRN 10/30/19 05/19/20 History atorvastatin 10 mg PO BEDTIME 10/30/19 05/19/20 History gabapentin 600 mg PO BEDTIME 10/30/19 05/19/20 History ondansetron HCl [Zofran] 4 mg PO DAILY PRN 10/30/19 05/19/20 History oxycodone 5 - 10 mg PO BEDTIME 10/30/19 05/19/20 History Mayra Capsule 1 cap PO DIRECTED 01/23/20 05/19/20 History cyclobenzaprine 10 mg PO BEDTIME 01/23/20 05/19/20 History docusate sodium [Stool Softener] 100 mg PO DAILY PRN 01/23/20 05/19/20 History fluticasone propionate [Flonase 1 spray INTRANASAL DAILY 01/23/20 05/19/20 History Allergy Relief] levocetirizine [Xyzal] 5 mg PO QPM 01/23/20 05/19/20 History losartan 50 mg PO BID 01/23/20 05/19/20 History ranitidine HCl [Acid Control 150 mg PO DIRECTED 01/23/20 05/19/20 History (ranitidine)] amlodipine 5 mg PO DAILY 05/19/20 05/19/20 History guaifenesin [Mucinex] 1,200 mg PO Q12H PRN 05/19/20 05/19/20 History sennosides [senna] 8.6 mg PO BEDTIME 05/19/20 05/19/20 History simethicone [Gas-X Extra Strength] 125 mg 05/19/20 History Allergies Allergy/AdvReac Type Severity Reaction Status Date / Time aspirin AdvReac Verified 05/19/20 12:56 NSAIDS (Non-Steroidal AdvReac Verified 05/19/20 12:57 Anti-Inflamma Exam Vital Signs (past 8 hours): - 05/19/20 12:44 Temperature 97.8 F Pulse Rate 67 Respiratory Rate 16 Blood Pressure 141/87 H Pulse Oximetry 96 Oxygen Delivery Method Room Air Narrative Exam Narrative: Oropharynx free of lesions Chest clear to auscultation percussion Cardiac exam reveals no S3 or murmur Assessment & Plan Assessment & Plan narrative: History of Negro's esophagus need for follow-up endoscopy. Risks, benefits, alternatives have been explained. Further recommendations will follow the results of the study
--- NOTE | 2020-05-19 13:22 | PM.OP.ENDO ---
Operative Date/Time/Diagnoses Date of procedure: 05/19/20 Time of procedure: 13:22 Pre-op diagnosis: See indication and findings Procedure & Clinicians Study performed: EGD with biopsy Same procedure as scheduled: Yes Indications: Negro's esophagus Surgeon: Felipe Gomez Procedure Notes Procedure in detail: After informed consent was obtained the patient was placed in left lateral decubitus position. The video upper scope was placed into the oropharynx and with the patient's help swelled in the esophagus. The esophagus, stomach, duodenum were carefully examined. On withdrawal, retroflexed view the GE junction was performed. The scope was removed. Patient tolerated the procedure well. Blood loss none Complications none Sedation Total sedation time 10 minutes Versed 4 mg fentanyl 100 mg IV titration Findings 1. Negro's esophagus the last 2 cm of the esophagus. This is from 37-35 cm. Four-quadrant biopsies were taken in 2 locations labeled 36 and 35 cm. No other abnormalities were seen 2. Normal stomach other than mild straight distal antral erythema 3. Normal duodenal bulb and sweep Mr. Montaño will need follow-up endoscopy 3 years. We will be in touch regarding his biopsies.
[2020-05-19] MEDS: MIDAZOLAM 5 MG/5 ML VIAL IV (13:33)
[2020-05-19] MEDS: fentaNYL 250 MCG/5 ML INJ IV (13:33)
== END 2020-05-19 15:11 | disposition home or self-care (01) ==
PROVIDERS: PCP Internal Medicine; Referring Provider Internal Medicine Gastroenterology; Visit Provider Internal Medicine Gastroenterology
PROC: 0DJ08ZZ Inspection of Upper Intestinal Tract, Via Natural or Artificial Opening Endoscopic (ICD-10-PCS; CPT 43235; principal; 2020-05-19 13:00)
DX: K22.70 Barrett's esophagus without dysplasia (principal); K21.9 Gastro-esophageal reflux disease without esophagitis; I10 Essential (primary) hypertension; F17.210 Nicotine dependence, cigarettes, uncomplicated; Z86.73 Personal history of transient ischemic attack (TIA), and cerebral infarction without residual deficits; E78.5 Hyperlipidemia, unspecified; M79.7 Fibromyalgia
CPT/HCPCS: 43235; J2250; J3010

== ENCOUNTER → 2020-06-24 16:12 | Outpatient (CLI) | payer MEDICARE, OTHER, SELFPAY ==
--- NOTE | 2020-06-24 | DI.US.S_ITS ---
PROCEDURE: US THYROID INDICATIONS: THYROID NODULE TECHNIQUE: Real-time scanning was performed of the thyroid gland, with image documentation. COMPARISON: [facility], US, US THYROID, 12/30/2018, 15:28. FINDINGS: Right: Thyroid lobe measures 1.5 x 1.7 x 3.8 cm, and is homogeneous in echotexture. Left: Thyroid lobe measures 2.0 x 2.6 x 4.5 cm, and is homogenous in echotexture. Isthmus: 2 mm thick. Nodule number: 1 Location: Right inferior thyroid lobe Size: 1.1 x 0.7 x 0.8 cm. Composition: Predominantly cystic Echogenicity: Hypoechoic Shape: Wider than tall Margins: Smoothly marginated Echogenic foci: None Total points: 2 ACR TI-RADS category: Category 2, not suspicious, no biopsy recommended. Nodule number: To Location: Left mid thyroid Size: 2.6 x 1.8 x 1.9 cm. Composition: Solid Echogenicity: Hypoechoic Shape: Wider than tall Margins: Smoothly marginated Echogenic foci: None Total points: 4 ACR TI-RADS category: Thyroid nodule category 4, moderately suspicious, fine needle aspiration is recommended because this nodule is over a average diameter of 1.5 cm. recommended because this thyroid nodule is over an average diameter of 1.5 cm. Nodule number: 3 Location: Inferior right thyroid lobe Size: 1.5 x 0.8 x 0.9 cm. Composition: Solid Echogenicity: Hypoechoic Shape: Wider than tall Margins: Smoothly marginated Echogenic foci: Punctate Total points: 7 ACR TI-RADS category: The category 5, suspicious, fine-needle aspiration is recommended for this nodule. IMPRESSION: The 2 nodules on the left have imaging findings potentially increasing the risk of underlying thyroid carcinoma. Fine-needle aspiration biopsy of each of these 2 lesions is recommended. The patient may prefer to have both nodules biopsied on 1 day but also may prefer to have 2 separate biopsies scheduled. ACR TI-RADS definitions and recommendations: TI-RADS 1 (benign): 0 points. FNA not needed. TI-RADS 2 (not suspicious): 2 points. FNA not needed. TI-RADS 3 (mildly suspicious): 3 points. * FNA if 2.5 cm or larger, follow up if 1.5 cm or larger (at 1, 3, and 5 years). TI-RADS 4 (moderately suspicious): 4-6 points. * FNA if 1.5 cm or larger, follow up if 1 cm or larger (at 1, 2, 3, and 5 years). TI-RADS 5 (highly suspicious): 7 points or more. * FNA if 1 cm or larger, follow up if 0.5 cm or larger (every year for 5 years). Dictated by: Josue Olivares M.D. on 06/25/2020 at 15:48 Approved by: Josue Olivares M.D. on 06/25/2020 at 15:57
== END ==
PROVIDERS: PCP Internal Medicine; Referring Provider Internal Medicine; Visit Provider Internal Medicine
DX: E04.2 Nontoxic multinodular goiter (principal)
CPT/HCPCS: 76536

== ENCOUNTER → 2020-08-20 12:47 | Outpatient (CLI) | payer MEDICARE, OTHER, SELFPAY ==
--- NOTE | 2020-08-20 | DI.US.S_ITS ---
PROCEDURE: US FINE NEEDLE ASPIRATION INDICATIONS: THYROID FNA TECHNIQUE: The indications, alternatives, benefits, risks, and complications of the procedure were explained to the patient. Written informed consent was obtained and placed in the chart. The thyroid region was examined sonographically and a site was chosen for ultrasound guided percutaneous sampling. The skin was prepared and draped in the usual fashion, and anesthetized with 1% lidocaine infiltrated from the skin down to the thyroid gland. Multiple passes were then performed, with contents emptied into an appropriate pathology specimen container. A bandage was applied to the area of access at completion of the study. COMPARISON: [facility], [place], [place] THYROID, 12/30/2018, 15:28. [facility]YROID, 06/24/2020, 16:47. FINDINGS: After personal discussion by telephone with Dr. Mcmahan , both left thyroid nodules were planned to be sampled however only the left mid lobe lesion was accessible percutaneously. The inferior left thyroid nodule was not accessible due to location and small size. This could be further assessed with dedicated nuclear medicine radioactive iodine scanning, continued ultrasound surveillance, or surgical biopsy dependent on clinical suspicion. Location(s) of lesion(s) sampled: Left mid lobe Reed: 25 and 22 gauge hypodermic needles. Number of passes: 6 Medications: 1% lidocaine for local anaesthesia. Complications: None. IMPRESSION: Successful ultrasound-guided fine needle aspiration of the left mid lobe nodule only, with cytology results pending. The small inferior left nodule was not accessible for sampling as discussed above. Please see chart below for management recommendations based on cytology results. [facility] ReportingRecommendationsNon-diagnostic* Repeat US-guided FNA, with on-site cytology evaluation if possible. * Repeated non-diagnostic nodules without high suspicion US features: close observation vs surgical consult. * Consider surgery if nodule has high suspicion US features, grows >20% in 2 dimensions on followup, or patient has clinical risk factors for malignancy. Benign* If nodule has high suspicion US features: repeat US and FNA within 12 months. * If nodule has low to intermediate suspicion US features: repeat US at 12-24 months. If nodule grows (20% increase in at least 2 dimensions, with minimal increase of 2 mm or >50% change in volume), or development of new suspicious US features, then repeat FNA or continue followup. * If nodule has very low suspicion US features: followup US at >24 months. Atypia of undetermined significance, follicular lesion of undetermined significanceRepeat FNA, molecular testing, followup US, or surgical consult.Follicular neoplasm, suspicious for follicular neoplasmSurgical consult; also consider molecular testing. Suspicious for malignancySurgical consult.MalignantSurgical consult. Dictated by: Kristopher Jo M.D. on 08/20/2020 at 17:39 Approved by: Kristopher Jo M.D. on 08/20/2020 at 17:43
--- NOTE | 2020-08-20 | PATH_ITS ---
Note [facility] Accession Number: [id number] TESTS RESULT FLAG UNITS REF RANGE LAB Clinician Provided Cytology Information No. of containers..01 Other (Miscellaneous) No. of containers..02 Previously Prepared Cytology Slide 01 THYROID DIAGNOSIS: 01 LEFT THYROID NODULE, FINE NEEDLE ASPIRATION. NEGATIVE FOR MALIGNANT CELLS. ADEQUATE FOR EVALUATION. FOLLICULAR GROUPS ARE PRESENT. FAVOR BENIGN FOLLICULAR (GOITEROUS) NODULE (BETHESDA CATEGORY II), SEE COMMENT. COMMENT: MICROSCOPIC EXAMINATION REVEALS A MILDLY CELLULAR ASPIRATE, COMPOSED OF COLLOID, FOLLICULAR GROUPS WITHOUT SIGNIFICANT CYTOLOGIC OR ARCHITECTURAL ATYPIA, AND FEW MACROPHAGES. THESE FINDINGS FAVOR A BENIGN FOLLICULAR (GOITEROUS) NODULE. CORRELATION WITH CLINICAL AND RADIOGRAPHIC FINDINGS IS RECOMMENDED TO ENSURE THAT THE NODULE HAS BEEN ADEQUATELY SAMPLED. ACCORDING TO THE [place] REPORTING SYSTEM FOR THYROID CYTOPATHOLOGY, THE RISK OF MALIGNANCY IN THE CATEGORY BENIGN-CATEGORY II IS 0-3%; THEREFORE RECOMMEND CONTINUED ULTRASOUND SURVEILLANCE WITH REPEAT FNA IF THE NODULE SIGNIFICANTLY INCREASES IN SIZE. Pathologist ICD10: 01 E04.2 01 Right: Thyroid lobe measures 1.5 x 1.7 x 3.8 cm, and is homogeneous in echotexture. Left: Thyroid lobe measures 2.0 x 2.6 x 4.5 cm, and is homogenous in echotexture, Isthmus: 2 mm thick. Nodule number: 1 Location: Right inferior thyroid lobe Size: x 0.7 x 0.8 cm, and this has not changed significantly in size from the 01/07 study. Composition: Predominantly cystic Echogenicity: Hypoechoic Shape: Wider than tall Margins: Smoothly marginated Echogenic foci: None Total points: 2 ACR T I-RADS category: Category 2, not suspicious, no biopsy recommended. Nodule number: 2 Location: Left mid thyroid Size: 2.6 x 1.8 x 1.9 cm, and previously these measurements were 2.6 x 1.5 x 1.6 cm, mildly enlarged in size from the comparison study. Composition: Solid Echogenicity: Hypoechoic Shape: Wider than tall Margins: Smoothly marginated Echogenic foci: None Total points: 4 ACR T I-RADS category: Thyroid nodule category 4, moderately suspicious, fine needle aspiration is recommended because this nodule is over an average diameter of 1.5 cm. Nodule number: 3 Location: Inferior left thyroid lobe Size: 1.5 x 0.8 x 0.9 cm, not previously identified. Composition: Solid Echogenicity: Hypoechoic Shape: Wider than tall Margins: Smoothly marginated. Echogenic foci: Punctate Total points: 7 ACR T I-RADS category: The category 5, suspicious, fine-needle aspiration is recommended for this nodule. IMPRESSION: The 2 nodules on the left have imaging findings potentially increasing the risk of underlying thyroid carcinoma. Fine-needle aspiration biopsy of each of these 2 lesions is recommended. The patient may prefer to have both nodules biopsied on 1 day but also may prefer to have 2 separate biopsies scheduled. 01 Sarah Perez MD, Pathologist NPI- [id number] Mohit Beard, College Athletic Director ([facility]) 01 30 CC, RED, CLEAR RECIEVED: IN CYTOLYT WITH 6 ALCOHOL FIXED AND 6 QUICK STAINED SLIDES ALSO 1 RNA VIAL WAS RECEIVED FOR FURTHER TESTING. /VD 08/23/2020 1120 Local FLAG LEGEND: L-Low Normal,H-High Normal,LL-Alert Low,HH-Alert High <-Panic Low,>-Panic High,A-Abnormal,AA-Critical Abnormal Performed at: 01 =Z [facility] [address], [place] [address] Gerson Wasserman MD, Specimen Comment: A courtesy copy of this report has been sent to [phone], [phone] Specimen Comment: [id number] Performed at: 01 [facility] [address], [place], [place] [id number] MD Gerson Wasserman MD Phone: [phone]
== END ==
PROVIDERS: PCP Internal Medicine; Referring Provider Specialist/Technologist, Other Surgical Technologist; Visit Provider Specialist/Technologist, Other Surgical Technologist
DX: E04.2 Nontoxic multinodular goiter (principal)
CPT/HCPCS: 10005

== ENCOUNTER → 2020-08-26 15:32 | Outpatient (ROUT) | payer MEDICARE, OTHER, SELFPAY ==
[2020-08-26 16:26] LABS: Alanine Aminotransferase 29 IU/L (<50); Albumin Globulin Ratio 1.3 (1.0-2.8); Alkaline Phosphatase 86 U/L (38-126); Aspartate Aminotransferase 31 IU/L (17-59); BUN Creatinine Ratio 21.4 (6-22); Bilirubin Total 0.6 mg/dL (0.2-1.3); Blood Urea Nitrogen 15 mg/dL (9-20); Calcium 9.2 mg/dL (8.4-10.2); Carbon Dioxide 22 mmol/L (22-32); Chloride 107 mmol/L (98-107); Cholesterol 168 mg/dL (140-199); Estimated Glomerular Filt Rate > 60.0 mL/min (>60); Globulin 3.1 g/dL (1.7-4.1); Glucose 85 mg/dL (80-110); HDL Cholesterol 58 mg/dL (40-60); HEMOLYSIS < 15 (0-50); LDL Cholesterol Calculated 85 mg/dL (<100); Magnesium 2.1 mg/dL (1.6-2.3); Potassium 4.5 mmol/L (3.4-5.1); Sodium 140 mmol/L (137-145); Total Protein 7.1 g/dL (6.3-8.2); Triglycerides 124 mg/dL (35-150)
[2020-08-26 17:00] LABS: Vitamin D 25 Hydroxy (D3) < 12.8 ng/mL (30.0-100.0)
[2020-08-27 09:11] LABS: PSA Free % 12.9 % (.); PSA, Total 0.7 ng/mL (0.0-4.0)
== END ==
PROVIDERS: PCP Internal Medicine; Visit Provider Internal Medicine
DX: I10 Essential (primary) hypertension (principal); E78.2 Mixed hyperlipidemia; Z12.5 Encounter for screening for malignant neoplasm of prostate; R25.2 Cramp and spasm
CPT/HCPCS: 80053; 80061; 82306; 83735; 84153; 84154

== ENCOUNTER → 2020-12-07 18:21 | Outpatient (ROUT) | payer MEDICARE, OTHER, SELFPAY | PROVIDERS: PCP Internal Medicine; Visit Provider Internal Medicine | DX: E55.9 Vitamin D deficiency, unspecified (principal) | CPT/HCPCS: 82306 ==

== ENCOUNTER → 2020-12-17 10:58 | Outpatient (CLI) | payer MEDICARE, OTHER, SELFPAY ==
[2020-12-17] MEDS: COVID-19 VACC #1, MRNA(MOD) 100 MCG/0.5 ML VIAL IM (11:06)
== END ==
PROVIDERS: PCP Internal Medicine; Visit Provider Internal Medicine
DX: Z23 Encounter for immunization (principal)
CPT/HCPCS: 0011A; 91301

== ENCOUNTER → 2021-01-06 16:12 | Outpatient (CLI) | payer MEDICARE, OTHER, SELFPAY ==
--- NOTE | 2021-01-06 16:14 | DI.CT.S_ITS ---
PROCEDURE: CT SINUS SCREEN WO CON INDICATIONS: CHRONIC MAXILLARY SINUSITIS TECHNIQUE: Noncontrast 3.0 mm axial images acquired from the frontal sinuses to the mid-sella, with coronal and sagittal reformats. For radiation dose reduction, the following was used: automated exposure control, adjustment of mA and/or kV according to patient size. COMPARISON: [facility], CT, CT HEAD/BRAIN WO CON, 01/23/2020, 17:03. FINDINGS: Image quality: Excellent. Maxillary Sinuses: No bony remodeling or destruction. Mild bilateral maxillary sinus mucosal thickening. Ethmoid Air Cells: No bony remodeling or destruction. Moderate mucosal thickening within the bilateral ethmoid air cells. Sphenoid Sinuses: No bony remodeling or destruction. Mild left sphenoid sinus mucosal thickening. Frontal Sinuses: No bony remodeling or destruction. There is moderate mucosal thickening within the bilateral anteromedial frontal sinuses. Ostiomeatal Complexes: Left ostiomeatal unit is patent. Near complete opacification of the right ostiomeatal unit. No Krystina cells. Miscellaneous: Visualized intra-orbital contents are normal. No broderick bullosa or paradoxical turbinate curvature. Mild leftward nasal septal deviation. Right fronto temporal craniotomy, as before. Right parietal encephalomalacia, incompletely visualized. Ex vacuo dilatation of the right lateral ventricle. IMPRESSION: 1. Velazquez sinus mucosal disease as described above. 2. Leftward nasal septum deviation. 3. Intracranial postsurgical sequelae. Dictated by: Rosalina Paulson M.D. on 01/06/2021 at 16:35 Approved by: Rosalina Paulson M.D. on 01/06/2021 at 16:37
== END ==
PROVIDERS: PCP Internal Medicine; Referring Provider Internal Medicine; Visit Provider Internal Medicine
DX: J32.0 Chronic maxillary sinusitis (principal)
CPT/HCPCS: 70486

== ENCOUNTER → 2021-01-14 10:17 | Outpatient (CLI) | payer MEDICARE, OTHER, SELFPAY ==
[2021-01-14] MEDS: COVID-19 VACC #2, MRNA(MOD) 100 MCG/0.5 ML VIAL IM (10:27)
== END ==
PROVIDERS: PCP Internal Medicine; Visit Provider Internal Medicine
DX: Z23 Encounter for immunization (principal)
CPT/HCPCS: 0012A; 91301

== ENCOUNTER → 2021-03-26 09:58 | Outpatient (CLI) | payer MEDICARE, OTHER, SELFPAY ==
[2021-03-26 12:10] LABS: COVID19 -Nasal RAPID Negative (Negative)
== END ==
PROVIDERS: PCP Internal Medicine; Referring Provider Student in an Organized Health Care Education/Training Program; Visit Provider Student in an Organized Health Care Education/Training Program
DX: Z01.812 Encounter for preprocedural laboratory examination (principal); Z20.822 Contact with and (suspected) exposure to COVID-19
CPT/HCPCS: 87635; C9803

== ENCOUNTER → 2021-03-28 10:40 | Outpatient (CLI) | payer MEDICARE, OTHER, SELFPAY ==
--- NOTE | 2021-03-29 17:12 | DI.NM.S_ITS ---
PROCEDURE PERFORMED: Pharmacologic vasodilator stress and rest myocardial perfusion imaging with gating to assess ejection fraction and regional wall motion. DATE OF SERVICE: March 28, 2021 ORDERING PROVIDER: Yesy Cortes MD INDICATIONS: The patient is a 70-year-old male status post CVA who describes exertional dyspnea and atypical chest discomfort. CARDIAC STRESS: Per protocol, 0.4 mg of regadenoson was infused with a normal hemodynamic response with development of moderate dyspnea and abdominal discomfort but no chest discomfort. His resting ECG shows sinus rhythm with an incomplete RBBB with anterolateral ST-segment abnormalities but there were no significant ST-segment shifts or arrhythmias with stress. Per protocol, 27.5 millicuries of technetium-99m Myoview was injected. He was imaged 30 minutes later using a gated SPECT acquisition protocol. He returned the following day and was reinjected with an additional 26.0 millicuries of technetium-99m Myoview and was imaged 30 minutes later, again using a gated SPECT acquisition protocol. FINDINGS: RAW DATA: There is fairly good myocardial tracer uptake. The patient was unable to lay prone due to limited mobility because of his stroke. The lung/heart ratio is normal at 0.30. While the TID ratio is borderline elevated at 1.33, this is nonspecific with the use of vasodilator stress and visually, that degree of post-stress dilatation is not evident and thus this is nonspecific. QUANTITATED GATED SPECT: Post-stress ejection fraction is estimated at 71% without any focal wall motion abnormality. The resting ejection fraction is 73% with an end-diastolic volume of 73 mL. MYOCARDIAL PERFUSION IMAGING: Post-stress supine images show a normal myocardial perfusion pattern without any concerning perfusion defects. There is no prone imaging available. IMPRESSION: 1. Normal myocardial perfusion study. 2. No evidence of myocardial ischemia or previous myocardial infarction. 3. Normal left ventricular systolic function without any regional wall motion abnormality. While there is computer-measured post-stress dilatation, this is not visually apparent and thus lacks specificity. 4. No chest discomfort or ECG changes of ischemia with pharmacologic vasodilator stress. Rod Nayak - CANDIDO/trinity/trent doc#: [id number]/job#: [id number] dd: 03/29/2021 16:37:00 dt: 03/29/2021 16:50:00 DICTATING MD/COPIES TO: Leon Paredes MD; Yesy Cortes MD COPIES MNE: JONATHAN;
== END ==
PROVIDERS: PCP Internal Medicine; Referring Provider Internal Medicine; Visit Provider Internal Medicine
DX: R07.89 Other chest pain (principal); R06.09 Other forms of dyspnea; Z86.73 Personal history of transient ischemic attack (TIA), and cerebral infarction without residual deficits
CPT/HCPCS: 78452; 93017; A9502; J2785

== ENCOUNTER → 2021-04-05 14:52 | Outpatient (ROUT) | payer MEDICARE, OTHER, SELFPAY ==
[2021-04-05 15:44] LABS: Alanine Aminotransferase 35 IU/L (<50); Albumin 4.3 g/dL (3.5-5.0); Albumin Globulin Ratio 1.3 (1.0-2.8); Alkaline Phosphatase 81 U/L (38-126); Aspartate Aminotransferase 38 IU/L (17-59); BUN Creatinine Ratio 17.8 (6-22); Bilirubin Total 0.5 mg/dL (0.2-1.3); Blood Urea Nitrogen 13 mg/dL (9-20); Calcium 9.3 mg/dL (8.4-10.2); Carbon Dioxide 24 mmol/L (22-32); Chloride 106 mmol/L (98-107); Cholesterol 161 mg/dL (140-199); Estimated Glomerular Filt Rate > 60.0 mL/min (>60); Globulin 3.2 g/dL (1.7-4.1); Glucose 85 mg/dL (80-110); HDL Cholesterol 63 mg/dL (40-60); HEMOLYSIS 36 (0-50); LDL Cholesterol Calculated 74 mg/dL (<100); Potassium 4.4 mmol/L (3.4-5.1); Sodium 139 mmol/L (137-145); Total Protein 7.5 g/dL (6.3-8.2); Triglycerides 118 mg/dL (35-150)
[2021-04-06 08:36] LABS: PSA Free % 11.3 % (.); PSA, Total 0.8 ng/mL (0.0-4.0)
== END ==
PROVIDERS: PCP Internal Medicine; Visit Provider Internal Medicine
DX: I10 Essential (primary) hypertension (principal); E78.5 Hyperlipidemia, unspecified; N40.0 Benign prostatic hyperplasia without lower urinary tract symptoms
CPT/HCPCS: 80053; 80061; 84153; 84154

== ENCOUNTER → 2021-07-14 15:21 | Outpatient (CLI) | payer MEDICARE, OTHER, SELFPAY ==
--- NOTE | 2021-07-14 15:24 | DI.RAD.S_ITS ---
PROCEDURE: XR LUMBAR SPINE 2-3V INDICATIONS: LT SIDE LOW BACK PAIN TECHNIQUE: 3 views of the lumbar spine were acquired. COMPARISON: [facility], , US ABDOMEN COMPLETE, 12/30/2018, 14:05. FINDINGS: Bones: 5 [id number] vertebrae are present. Mild dextrocurvature centered at the L3 level. Grade 1 spondylolisthesis at the L5-S1 level and there is trace retrolisthesis at the L4-L5 level. There is severe disc degeneration at the L5-S1 level. Moderate L5-S1 facet joint arthropathy. No vertebral body compression fractures. No suspicious bony lesions. Soft tissues: Overlying bowel gas pattern is normal. No suspicious soft tissue calcifications. Vascular calcifications indicate atherosclerosis. Atherosclerotic changes of the abdominal aorta and there appears to be mild aneurysmal dilatation of the distal aorta measuring up to 4.3 cm on the lateral view. IMPRESSION: 1. Multilevel spondylosis, severe at the L5-S1 level. 2. Atherosclerotic and aneurysmal changes of the abdominal aorta. Recommend aortic ultrasound for further more accurate size assessment of the aneurysm. Dictated by: Hoang Jaime [facility] Interpreted: Victoriano Yates MD on 07/14/2021 at 15:58 Transcribed by: NANCY on 07/14/2021 at 16:00 Approved by: Francois Yates M.D. on 07/18/2021 at 9:38
== END ==
PROVIDERS: PCP Internal Medicine; Referring Provider Internal Medicine; Visit Provider Internal Medicine
DX: M54.5 Low back pain (principal); M47.817 Spondylosis without myelopathy or radiculopathy, lumbosacral region
CPT/HCPCS: 72100

== ENCOUNTER → 2021-07-26 14:43 | Outpatient (CLI) | payer MEDICARE, OTHER, SELFPAY ==
--- NOTE | 2021-07-26 | DI.US.S_ITS ---
PROCEDURE: US ABD AORTA ANEURYSM SCREEN INDICATIONS: Encounter for screening for cardiovascular disorde TECHNIQUE: Real time scanning was performed of the aorta and iliac arteries, with image documentation. COMPARISON: [facility], , US ABDOMEN COMPLETE, 12/30/2018, 14:05. FINDINGS: Aorta: Proximal aorta is not well seen cm. Mid-aorta measures 2.9 cm. Distal aortic diameter is 2.6 cm. Iliac arteries: Right common iliac artery measures 2.4 x 2.5 cm. Left common iliac artery measures 2 cm. IMPRESSION: No jordy aortic aneurysm is seen. The mid aorta is ectatic at 2.9 cm. 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 Dictated by: Pradeep Zarco M.D. on 07/26/2021 at 15:03 Approved by: Pradeep Zarco M.D. on 07/26/2021 at 15:04
== END ==
PROVIDERS: PCP Internal Medicine; Referring Provider Internal Medicine; Visit Provider Internal Medicine
DX: Z13.6 Encounter for screening for cardiovascular disorders (principal); I72.3 Aneurysm of iliac artery; I77.811 Abdominal aortic ectasia
CPT/HCPCS: 76706

== ENCOUNTER 2021-08-31 10:30 | Outpatient (RCR) | payer MEDICARE, OTHER, SELFPAY ==
--- NOTE | 2019-09-18 15:30 | OT.OP.EVAL ---
Visit Care Team Role Provider Type Yesy Cortes MD Attending Provider Physician Primary Care Provider Specialty: Internal Medicine Address: [address] [place] [address], [id number] Email: [email or web address] Initial Evaluation OT Outpatient Adult Evaluation Start: 09/29/19 07:33 Freq: Status: Active Protocol: Document 09/18/19 15:30 AMS (Rec: 09/29/19 08:13 AMS [id number]) General Information Visit Start Time 12:30 Visit Stop Time 13:25 Total Visit Minutes 55 Visit Number 11/28 Plan of Care Dates 09/18/19-12/11/2019 Insurance Information Medicare Treatment Setting Outpatient Care Note Type Initial Evaluation Referring Physician Yesy Cortes MD Reason for Referral CVA Identification Confirmed Yes: Photo ID Identification Confirmed By Medical History Patient is a 69 year-old male referred to outpatient OT by PCP, Yesy Cortes MD, 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 Patient was transferred from [facility] to [facility] where craniotomy was performed 04/16/19. Patient completed 7 weeks of rehab at [facility] and then underwent secondary surgery on 06/26/19 to replace skull fragment. Patient was then at acute rehab facility 06/30/19-07/18/19 . He was discharged home with assist from and caregivers. He received Home Health PT/OT/WATCH TRAIN INSPECTOR until . Therapy Pain Assessment When Pain Assessed Pre-treat Pain Present Pain Reported Left Foot Intensity 5 Scale Used Numeric (1 - 10) Left Upper Leg Intensity 7 Scale Used Numeric (1 - 10) Lower Back Intensity 7 Scale Used Numeric (1 - 10) Left Arm Intensity 4 Scale Used Numeric (1 - 10) Bilateral Shoulder Intensity 5 Scale Used Numeric (1 - 10) ADLs Comments Impaired; and caregiver assists patient w/ ADLS Skill Level Impaired Skill Level Impaired Skill Level Impaired Skill Level Impaired Skill Level Impaired Observations Observations AROM of L thumb noted. Use of lateral urrutia pinch. Unable to oppose left thumb to second digit pad. In-Hand Manipulation Right Level of Ability WFL Left Level of Ability Unable Right Level of Ability WFL Left Level of Ability Unable Right Level of Ability WFL Left Level of Ability Unable Right Level of Ability WFL Left Level of Ability Unable Right Level of Ability WFL Left Level of Ability Unable Goals Treatment Education completed re: positioning of UE when at rest ; instructed in positioning in w/c and when in supported sitting. Education focus on positioning of UE away from protective pattern and to the left of the body w/ supported wrist extension as tolerated. Recommended active TT ROM w/ scapular retraction/ protraction in frontal plane given no c/o pain/discomfort w / this exercise. Short Term Goals 1. Patient will be able to oppose left thumb to second digit pad 4 out of 5 trials with increased effort and concentration demonstrating increasing ability to actively incorporate the left upper extremity/hand in day-to-day life. 2. 0-30 degrees active left wrist extension. 3. 0-60 degrees active left forearm supination. 4. Patient will demonstrate increased ability to actively incorporate L UE in day-to-day life, as evidenced by ability to tolerate left <-> right weight shifting x 10 trials, with hands positioned in frontal plane. 5. Patient will actively participate in standardized digit/burnt lime drawer strength testing as tolerated. Care Home Goals 1. Patient will be modified independent with execution of UE home exercise program utilizing provided written and visual instructions from therapist with support of family and caregivers. Assessment/Plan Patient Response Good Rehabilitation Potential Good Impairments Identified ADLs,Attention,Balance,Body Mechanics,Flexibility, Functional Activities,Motor Function,Pain,Weakness,Posture ,Range of Motion,Recreational Activities,Meaningful Activities,Spasticity, Stiffness,Vision,Soft Tissue Mobility,Motor Planning Treatment Assessment Patient is a 69 year-old male referred to outpatient OT by PCP, Yesy Cortes MD, 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 PMH : Significant for arthritis; back pain; blood pressure; fibromyalgia; 2 brain surgeries (March 2019); left sided neglect; impaired vision . PLOF: Independent w/ ADLS and IADLS. Evaluation findings: Reported pain/discomfort of L LE, lower back bilateral shoulders, and L UE; left sided neglect; impaired functional independence; patient focus on gait; poor tolerance for distal L UE splint; impaired sensation of L UE; L UE weakness; decreased L UE AROM; decreased object manipulation abilities of the L hand; spasticity into flexor pattern of UE; protective posturing of UE; impaired posture; impaired balance; and poor tolerance for UE weight bearing. Outpatient OT is recommended to address these areas in order to maximize Gerd's success with active participation in meaningful activities with active incorporation of the affected UE. Comment 12 weeks Comment 1-2 times per week Therapeutic Contents Active Range of Motion, Adaptive Equipment Education, Client Education,Cognitive Skills Development,Functional Activities,Home Exercise Program,Joint Protection, Manual Therapy,Education, Neurodevelopment Treatment, Neuromuscular Re-Education, Self-Care,Stretching/ Flexibility Activities, Therapeutic Activities, Therapeutic Exercises, Modalities,Sensory Re- education Modalities As Needed,As Prescribed Types of Modalities Contrast Bath,E-Stim, Functional Stimulation (FES),T .E.N. Stimulation,TENS Placement/Application, Ultrasound Patient Instruction Home Exercise Program,Plan of Care,Questions/Concerns Occupational Therapy Assessment OT Outpatient Range of Motion Start: 09/29/19 07:33 Freq: Status: Active Protocol: Document 09/18/19 15:30 AMS (Rec: 09/29/19 08:13 AMS [email or web address]) ROM - Shoulder Shoulder Left Forearm ROM Testing Position Sitting Shoulder IR AROM (degrees) WFL IR Shoulder ER AROM (degrees) 0-30 Right Active Shoulder ROM WFL Yes Forearm ROM Testing Position Sitting ROM - Elbow/Forearm Elbow/Forearm Measured in Degrees Left ROM Testing Position Sitting Elbow Flex AROM (degrees) 120 Elbow Ext AROM (degrees) WFL Elbow Ext Forearm Pron AROM (degrees) WFL Pronation Forearm Sup AROM (degrees) 0-45 Right Elbow/Forearm ROM WFL Yes ROM Testing Position Sitting ROM - Wrist Wrist Range of Motion Measured in Degrees Left ROM Testing Position Sitting Wrist Flex AROM (degrees) WFL Wrist Ext AROM Fingers Open (degrees) 0 Wrist Ext AROM Fingers Flexed (degrees) 0 Ulnar Deviation AROM (degrees) 0 Radial Deviation AROM (degrees) 0 Wrist ROM WFL No Right Active ROM Testing Position Sitting Wrist ROM WFL Yes ROM Limitations Wrist ROM Limitations Muscle Tone
--- NOTE | 2019-09-26 15:30 | OT.OP.TRT ---
Visit Care Team Role Provider Type Yesy Cortes MD Attending Provider Physician Primary Care Provider Specialty: Internal Medicine Address: [address] [place] [address], [id number] Email: [email or web address] Occupational Therapy Treatment Note OT Outpatient Treatment Note - Adult Start: 09/29/19 07:33 Freq: Status: Active Protocol: Document 09/26/19 15:30 AMS (Rec: 10/01/19 13:44 AMS [id number]) OT Outpatient Adult Treatment Note Session Time Visit Start Time 14:30 Visit Stop Time 15:18 Total Visit Minutes 48 Visit Information Visit Number 12/29 Plan of Care Dates 09/18/19-12/11/2019 Insurance Information Medicare Setting Treatment Setting Outpatient Care Visit Type Note Type Treatment Note General Information General Information 69-yr-old male s/p 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 The pt was brought to [facility] ED where CT head revealed hemorrhage, then transferred via helicopter to [facility]. Pt underwent craniotomy on 04/16. He transferred to [facility] for rehab on 05/05 , where he remained until returning to [facility] 06/26 for surgical replacement of right side skull. He transferred from [facility] to [facility] for acute inpatient rehab from 06/30 - 07/18, returning home with Home Health PT/OT/ST until 09/12. While at [facility], the pt was seen by this MARKET PRESIDENT x2 and followed the facility's primary MARKET PRESIDENT Isabel Lyman, who targeted swallow and cognitve- linguistic rehab including left side neglect. Per pt/ spouse report, swallow function was determined rehabilitated at [facility] and re- assessed at [facility] and found to remain WNL. Per [facility] and Home Health MARKET PRESIDENT reports, the pt has made progress with cognitive- linguistic skills but continues with deficits in areas of visuospatial/left side neglect, oral motor strength secondary to left side weakness, calendar and clock usage, sequencing task steps, and problem solving. The pt reported particular frustration with reading and working with numbers, stating I used to be really good with numbers and enjoyed reading. - Subjective Identification Type Name,Picture Others Present Family Chief Complaint(s) Restricts Loss of Function Marked Degree Effect on Activity Marked Degree Effect on Daily Life Marked Degree - Objective Short Term Goals 1. Patient will be able to oppose left thumb to second digit pad 4 out of 5 trials with increased effort and concentration demonstrating increasing ability to actively incorporate the left upper extremity/hand in day-to-day life. 2. 0-30 degrees active left wrist extension. 3. 0-60 degrees active left forearm supination. 4. Patient will demonstrate increased ability to actively incorporate L UE in day-to-day life, as evidenced by ability to tolerate left <-> right weight shifting x 10 trials, with hands positioned in frontal plane. 5. Patient will actively participate in standardized digit/delivery driver/supervisor strength testing as tolerated. Muffler Mechanic Goals 1. Patient will be able to oppose left thumb to second digit pad 4 out of 5 trials with increased effort and concentration demonstrating increasing ability to actively incorporate the left upper extremity/hand in day-to-day life. 2. 0-30 degrees active left wrist extension. 3. 0-60 degrees active left forearm supination. 4. Patient will demonstrate increased ability to actively incorporate L UE in day-to-day life, as evidenced by ability to tolerate left <-> right weight shifting x 10 trials, with hands positioned in frontal plane. 5. Patient will actively participate in standardized digit/delivery driver/supervisor strength testing as tolerated. - Treatment 2 Descriptor Tone management. Weight bearing. Mat level. 1 Descriptor Filipino e-stim. Facilitation of wrist/digit extension. x 10 min. 10/10 cycle. 30 intensity. Exercises 2 Descriptor Cane exercises. Cane rowing - circumduction forwards 2x10. Forearm supination 2x10. Cane wrist extension 2x10. Supine cane chest press 2x10. Supine cane sh flex 2x10. Supine cane sh hor abd 2x10. Complexity Upgraded 1 Descriptor HEP. Instructed in seated EOM cane exercises. Cane rowing - circumduction forwards. Forearm supination. Cane wrist extension. Supine cane sh flex. Supine cane chest press. Supine cane sh hor abd. Recommended use of heat/warm water with hand exercises to support flexibility/ROM. accompanied patient to treatment session to assist w/ carry-over. and patient denied questions. Complexity Upgraded - Assessment Patient Response to Treatment Good Rehab Potential Good Impairments Identified ADLs,Attention,Body Mechanics, Coordination/Dexterity, Flexibility,Functional Activities,Motor Function,Pain ,Weakness,Posture,Range of Motion,Recreational Activities ,Meaningful Activities, Stiffness,Motor Planning Assessment of Improvement Decreased tone management of UE. Poor tolerance for weight bearing. Wesly intensity of e- stim at 30; recommend increasing as wesly by patient to support return of wrist/ digit extension. Improving attention to L side of space/ body. Home Exercise Program Please refer to treatment section of note for specific details. Reviewed with Patient/Caregiver Home Exercise Program Patient/Caregiver Understanding Good - Plan Therapy Recommendations Continue with Current Program, Advance per Rehabilitation Protocol Additional Therapy Recommendations Consult w/ PT and MARKET PRESIDENT
--- NOTE | 2019-09-29 15:30 | OT.OP.TRT ---
Visit Care Team Role Provider Type Yesy Cortes MD Attending Provider Physician Primary Care Provider Specialty: Internal Medicine Address: [address] [place] [address], [id number] Email: [email or web address] Occupational Therapy Treatment Note OT Outpatient Treatment Note - Adult Start: 09/29/19 07:33 Freq: Status: Active Protocol: Document 09/29/19 15:30 AMS (Rec: 10/01/19 13:56 AMS [email or web address]) OT Outpatient Adult Treatment Note Session Time Visit Start Time 14:30 Visit Stop Time 15:15 Total Visit Minutes 45 Visit Information Visit Number 01/26 Plan of Care Dates 09/18/19-12/11/2019 Insurance Information Medicare Setting Treatment Setting Outpatient Care Visit Type Note Type Treatment Note General Information General Information 69-yr-old male s/p 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 The pt was brought to [facility] ED where CT head revealed hemorrhage, then transferred via helicopter to [facility]. Pt underwent craniotomy on 04/16. He transferred to [facility] for rehab on 05/05 , where he remained until returning to [facility] 06/26 for surgical replacement of right side skull. He transferred from [facility] to [facility] for acute inpatient rehab from 06/30 - 07/18, returning home with Home Health PT/OT/ST until 09/12. While at [facility], the pt was seen by this PAPER RULER x2 and followed the facility's primary PAPER RULER Isabel Lyman, who targeted swallow and cognitve- linguistic rehab including left side neglect. Per pt/ spouse report, swallow function was determined rehabilitated at [facility] and re- assessed at [facility] and found to remain WNL. Per [facility] and Home Health PAPER RULER reports, the pt has made progress with cognitive- linguistic skills but continues with deficits in areas of visuospatial/left side neglect, oral motor strength secondary to left side weakness, calendar and clock usage, sequencing task steps, and problem solving. The pt reported particular frustration with reading and working with numbers, stating I used to be really good with numbers and enjoyed reading. - Subjective Identification Type Name,Picture Others Present Family Observations We have been really busy so he really hasn't had a chance to do the exercises at home with the cane per . Chief Complaint(s) Restricts Loss of Function Marked Degree Effect on Activity Marked Degree Effect on Daily Life Marked Degree Patient/Caregiver Compliance with Home Fair Exercise Program Comments w/ caregiver/family support - Objective Objective Measurements AROM measurements of L wrist were taken on this treatment date; please refer to ROM section of note for specific details. Please refer to below for progress towards meeting established OT goals. Short Term Goals 1. Patient will be able to oppose left thumb to second digit pad 4 out of 5 trials with increased effort and concentration demonstrating increasing ability to actively incorporate the left upper extremity/hand in day-to-day life. 2. 0-30 degrees active left wrist extension. 3. 0-60 degrees active left forearm supination. 4. Patient will demonstrate increased ability to actively incorporate L UE in day-to-day life, as evidenced by ability to tolerate left <-> right weight shifting x 10 trials, with hands positioned in frontal plane. 5. Patient will actively participate in standardized digit/ironmolder strength testing as tolerated. Skilled Nursing Goals 1. Patient will be modified independent with execution of UE home exercise program utilizing provided written and visual instructions from therapist with support of family and caregivers. - Treatment 2 Descriptor Tone management. Weight bearing. Mat level. 1 Descriptor Togolese e-stim. Facilitation of wrist/digit extension. x 10 min. 10/10 cycle. 36 intensity. Exercises 4 Descriptor Tone management. Weight bearing through UE. 3 Descriptor Compensatory motor planning/ object manipulation. 2 Descriptor Cane exercises. Cane rowing - circumduction forwards 2x10. 1 Descriptor HEP. Instruction/education re: compensatory motor pattern to utilize w/ functional grasping/releasing of objects (sliding to edge of table). Recommended weight bearing through distal L UE as able/as tolerated. and patient denied questions. Complexity Upgraded - Assessment Patient Response to Treatment Good Rehab Potential Good Impairments Identified ADLs,Attention,Body Mechanics, Coordination/Dexterity, Flexibility,Functional Activities,Motor Function,Pain ,Weakness,Posture,Range of Motion,Recreational Activities ,Meaningful Activities, Stiffness,Motor Planning Assessment of Improvement Increased tolerance for weight bearing through UE seated at EOM. Improving active range of motion of L wrist since time of initial evaluation. Focus on strengthening of wrist/ digit extensors to support functional abilities/object manipulation tasks. Increasing spontaneous rotation of neck to L side to attend to objects at mat level. Increasing self -directed use of L hand w/ light object manipulation. Weakness of UE. Decreased AROM of UE. Decreased functional independence/functional abilities with active incorporation of the affected UE. Home Exercise Program Please refer to treatment section of note for specific details. Reviewed with Patient/Caregiver Goals,Progress Being Made,Home Exercise Program Patient/Caregiver Understanding Excellent - Plan Therapy Recommendations Continue with Current Program, Advance per Rehabilitation Protocol Occupational Therapy Assessment OT Outpatient Range of Motion Start: 09/29/19 07:33 Freq: Status: Active Protocol: Document 09/29/19 15:30 AMS (Rec: 10/01/19 13:56 AMS [email or web address]) ROM - Shoulder Shoulder Left Forearm ROM Testing Position Sitting Shoulder IR AROM (degrees) WFL IR Shoulder ER AROM (degrees) 0-30 Right Active Shoulder ROM WFL Yes Forearm ROM Testing Position Sitting ROM - Elbow/Forearm Elbow/Forearm Measured in Degrees Left ROM Testing Position Sitting Elbow Flex AROM (degrees) 120 Elbow Ext AROM (degrees) WFL Elbow Ext Forearm Pron AROM (degrees) WFL Pronation Forearm Sup AROM (degrees) 0-45 Right Elbow/Forearm ROM WFL Yes ROM Testing Position Sitting ROM - Wrist Wrist Range of Motion Measured in Degrees Left ROM Testing Position Sitting Wrist Flex AROM (degrees) 0-70 Wrist Ext AROM Fingers Open (degrees) 0 Wrist Ext AROM Fingers Flexed (degrees) 0-10 Ulnar Deviation AROM (degrees) 0-20 Radial Deviation AROM (degrees) 0-15 Wrist ROM WFL No Right Active ROM Testing Position Sitting Wrist ROM WFL Yes ROM Limitations Wrist ROM Limitations Muscle Tone
--- NOTE | 2019-10-06 15:30 | OT.OP.TRT ---
Visit Care Team Role Provider Type Yesy Cortes MD Attending Provider Physician Primary Care Provider Specialty: Internal Medicine Address: [address] [place] [address], [id number] Email: [email or web address] [email or web address] [facility]blue [facility] Occupational Therapy Treatment Note OT Outpatient Treatment Note - Adult Start: 09/29/19 07:33 Freq: Status: Active Protocol: Document 10/06/19 15:30 AMS (Rec: 10/07/19 12:18 AMS [email or web address]) OT Outpatient Adult Treatment Note Session Time Visit Start Time 14:30 Visit Stop Time 15:20 Total Visit Minutes 50 Visit Information Visit Number 02/26 Plan of Care Dates 09/18/19-12/11/2019 Insurance Information Medicare Setting Treatment Setting Outpatient Care Visit Type Note Type Treatment Note General Information General Information 69-yr-old male s/p 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 The pt was brought to [facility] ED where CT head revealed hemorrhage, then transferred via helicopter to [facility]. Pt underwent craniotomy on 04/16. He transferred to [facility] for rehab on 05/05 , where he remained until returning to [facility] 06/26 for surgical replacement of right side skull. He transferred from [facility] to [facility] for acute inpatient rehab from 06/30 - 07/18, returning home with Home Health PT/OT/ST until 09/12. While at [facility], the pt was seen by this [employer] DRIVER x2 and followed the facility's primary [employer] DRIVER Isabel Lyman, who targeted swallow and cognitve- linguistic rehab including left side neglect. Per pt/ spouse report, swallow function was determined rehabilitated at [facility] and re- assessed at [facility] and found to remain WNL. Per [facility] and Home Health [employer] DRIVER reports, the pt has made progress with cognitive- linguistic skills but continues with deficits in areas of visuospatial/left side neglect, oral motor strength secondary to left side weakness, calendar and clock usage, sequencing task steps, and problem solving. The pt reported particular frustration with reading and working with numbers, stating I used to be really good with numbers and enjoyed reading. - Subjective Identification Type Name,Picture Others Present Family Observations We were just talking about that this morning per in re: doing exercises at home. Chief Complaint(s) Restricts Loss of Function Marked Degree Effect on Activity Marked Degree Effect on Daily Life Marked Degree Patient/Caregiver Compliance with Home Fair Exercise Program Comments w/ caregiver/family support - Objective Objective Measurements Please refer to below for progress towards meeting established OT goals. Short Term Goals 1. Patient will be able to oppose left thumb to second digit pad 4 out of 5 trials with increased effort and concentration demonstrating increasing ability to actively incorporate the left upper extremity/hand in day-to-day life. 2. 0-30 degrees active left wrist extension. 3. 0-60 degrees active left forearm supination. 4. Patient will demonstrate increased ability to actively incorporate L UE in day-to-day life, as evidenced by ability to tolerate left <-> right weight shifting x 10 trials, with hands positioned in frontal plane. 5. Patient will actively participate in standardized digit/genetics teacher strength testing as tolerated. Breakfast Bar Attendant Goals 1. Patient will be modified independent with execution of UE home exercise program utilizing provided written and visual instructions from therapist with support of family and caregivers. - Treatment 2 Descriptor Tone management. Weight bearing. Mat level. 1 Descriptor Botswanan e-stim. Facilitation of wrist/digit extension. x 10 min. 10/10 cycle. 37 intensity. Exercises 3 Descriptor Compensatory motor planning/ object manipulation. 2 Descriptor Cane supine exercises. Sh flex . Chest press. Sh hor abd. Sh abd. Wrist flex/ext. 1x10 per each exercise. 1 Descriptor HEP. No changes to HEP were made on this treatment date. Reviewed importance of daily ROM/tone management. and patient denied questions. - Assessment Patient Response to Treatment Good Rehab Potential Good Impairments Identified ADLs,Attention,Body Mechanics, Coordination/Dexterity, Flexibility,Functional Activities,Motor Function,Pain ,Weakness,Posture,Range of Motion,Recreational Activities ,Meaningful Activities, Stiffness,Motor Planning Progress Towards Goals Good Progress Assessment of Improvement Increased tone compared to previous treatment session; decreased liz for WB exercises compared to previous session. Decreased active carry-over. Decreased functional independence/functional abilities with active incorporation of the affected UE. Recommend that therapist addresses functional incorporation of the affected UE, tone management, weakness, motor planning, object manipulation, attention to L side of space/UE. Home Exercise Program Please refer to treatment section of note for specific details. Reviewed with Patient/Caregiver Goals,Progress Being Made,Home Exercise Program Patient/Caregiver Understanding Excellent - Plan Therapy Recommendations Continue with Current Program, Advance per Rehabilitation Protocol Additional Therapy Recommendations Consult w/ PT and [employer] DRIVER
--- NOTE | 2019-10-08 14:30 | OT.OP.TRT ---
Visit Care Team Role Provider Type Yesy Cortes MD Attending Provider Physician Primary Care Provider Specialty: Internal Medicine Address: [address] [place] [address], [id number] Email: [email or web address] [facility] greensboroDistractifyspan[facility] Occupational Therapy Treatment Note OT Outpatient Treatment Note - Adult Start: 09/29/19 07:33 Freq: Status: Active Protocol: Document 10/08/19 14:30 AMS (Rec: 10/10/19 13:04 AMS [email or web address]) OT Outpatient Adult Treatment Note Session Time Visit Start Time 13:30 Visit Stop Time 14:20 Total Visit Minutes 50 Visit Information Visit Number 04/28 Plan of Care Dates 09/18/19-12/11/2019 Insurance Information Medicare Setting Treatment Setting Outpatient Care Visit Type Note Type Treatment Note General Information General Information 69-yr-old male s/p 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 The pt was brought to [facility] ED where CT head revealed hemorrhage, then transferred via helicopter to [facility]. Pt underwent craniotomy on 04/16. He transferred to [facility] for rehab on 05/05 , where he remained until returning to [facility] 06/26 for surgical replacement of right side skull. He transferred from [facility] to [facility] for acute inpatient rehab from 06/30 - 07/18, returning home with Home Health PT/OT/ST until 09/12. While at [facility], the pt was seen by this FRAMING MECHANIC x2 and followed the facility's primary FRAMING MECHANIC Isabel Lyman, who targeted swallow and cognitve- linguistic rehab including left side neglect. Per pt/ spouse report, swallow function was determined rehabilitated at [facility] and re- assessed at [facility] and found to remain WNL. Per [facility] and Home Health FRAMING MECHANIC reports, the pt has made progress with cognitive- linguistic skills but continues with deficits in areas of visuospatial/left side neglect, oral motor strength secondary to left side weakness, calendar and clock usage, sequencing task steps, and problem solving. The pt reported particular frustration with reading and working with numbers, stating I used to be really good with numbers and enjoyed reading. - Subjective Identification Type Name,Picture Others Present Family Observations He didn't sleep very well last night per . Chief Complaint(s) Restricts Loss of Function Marked Degree Effect on Activity Marked Degree Effect on Daily Life Marked Degree Patient/Caregiver Compliance with Home Fair Exercise Program Comments w/ caregiver/family support - Objective Objective Measurements Please refer to below for progress towards meeting established OT goals. Short Term Goals 1. Patient will be able to oppose left thumb to second digit pad 4 out of 5 trials with increased effort and concentration demonstrating increasing ability to actively incorporate the left upper extremity/hand in day-to-day life. 2. 0-30 degrees active left wrist extension. 3. 0-60 degrees active left forearm supination. 4. Patient will demonstrate increased ability to actively incorporate L UE in day-to-day life, as evidenced by ability to tolerate left <-> right weight shifting x 10 trials, with hands positioned in frontal plane. 5. Patient will actively participate in standardized digit/statue carver strength testing as tolerated. Market Survey Representative Goals 1. Patient will be modified independent with execution of UE home exercise program utilizing provided written and visual instructions from therapist with support of family and caregivers. - Treatment 2 Descriptor Tone management. Weight bearing. Mat level hand/ forearm. TT forward plane forearm level. Cylindrical grasp neutral positioning w/ WB. Complexity Upgraded 1 Descriptor Panamanian e-stim. Facilitation of wrist/digit extension. x 6 min. 10/10 cycle. 38 intensity . Exercises 3 Descriptor Compensatory motor planning/ object manipulation. 2 Descriptor Cane supine exercises. Sh flex . Chest press. Sh hor abd. Sh abd. Wrist flex/ext. 1x10 per each exercise. 1 Descriptor HEP. No changes to HEP were made on this treatment date. Reviewed importance of daily ROM/tone management. and patient denied questions. - Assessment Patient Response to Treatment Good Rehab Potential Good Impairments Identified ADLs,Attention,Body Mechanics, Coordination/Dexterity, Flexibility,Functional Activities,Motor Function,Pain ,Weakness,Posture,Range of Motion,Recreational Activities ,Meaningful Activities, Stiffness,Motor Planning Assessment of Improvement Fatigue; decreased sleep previous night. Decreased ability to maintain static sitting balance for e-stim without support. c/o L LE pain ; info conveyed to PT. Patient referred to PT for presenting symptoms. Poor liz for WB; poor WB w/ weight shift in standing at TT. Decreased functional independence/ functional abilities with active incorporation of the affected UE. Recommend that therapist addresses functional incorporation of the affected UE, tone management, weakness , motor planning, object manipulation, attention to L side of space/UE. Home Exercise Program Please refer to treatment section of note for specific details. Reviewed with Patient/Caregiver Goals,Progress Being Made,Home Exercise Program Patient/Caregiver Understanding Good - Plan Additional Therapy Recommendations Consult w/ PT and FRAMING MECHANIC
--- NOTE | 2019-10-14 16:50 | OT.OP.TRT ---
Visit Care Team Role Provider Type Yesy Cortes MD Attending Provider Physician Primary Care Provider Specialty: Internal Medicine Address: [address] [place] [address], [address] Email: [email or web address] Therapy Treatment Note OT Outpatient Treatment Note - Adult Start: 09/29/19 07:33 Freq: Status: Active Protocol: Document 10/14/19 16:41 AMS (Rec: 10/14/19 16:50 AMS [email or web address]) OT Outpatient Adult Treatment Note Session Time Visit Start Time 14:30 Visit Stop Time 15:20 Total Visit Minutes 50 Visit Information Visit Number 05/28 Plan of Care Dates 09/18/19-12/11/2019 Insurance Information Medicare Setting Treatment Setting Outpatient Care Visit Type Note Type Treatment Note General Information General Information 69-yr-old male s/p 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 The pt was brought to [facility] ED where CT head revealed hemorrhage, then transferred via helicopter to [facility]. Pt underwent craniotomy on 04/16. He transferred to [facility] for rehab on 05/05 , where he remained until returning to [facility] 06/26 for surgical replacement of right side skull. He transferred from [facility] to [facility] for acute inpatient rehab from 06/30 - 07/18, returning home with Home Health PT/OT/ST until 09/12. While at [facility], the pt was seen by this THERMOMETER MAKER x2 and followed the facility's primary THERMOMETER MAKER Isabel Lyman, who targeted swallow and cognitve- linguistic rehab including left side neglect. Per pt/ spouse report, swallow function was determined rehabilitated at [facility] and re- assessed at [facility] and found to remain WNL. Per [facility] and Home Health THERMOMETER MAKER reports, the pt has made progress with cognitive- linguistic skills but continues with deficits in areas of visuospatial/left side neglect, oral motor strength secondary to left side weakness, calendar and clock usage, sequencing task steps, and problem solving. The pt reported particular frustration with reading and working with numbers, stating I used to be really good with numbers and enjoyed reading. - Subjective Identification Type Name,Picture Others Present Family Observations He saw the director of student financial services earlier today per . Chief Complaint(s) Restricts Loss of Function Marked Degree Effect on Activity Marked Degree Effect on Daily Life Marked Degree Patient/Caregiver Compliance with Home Good Exercise Program Comments w/ caregiver/family support - Objective Objective Measurements Please refer to below for progress towards meeting established OT goals. Short Term Goals 1. Patient will be able to oppose left thumb to second digit pad 4 out of 5 trials with increased effort and concentration demonstrating increasing ability to actively incorporate the left upper extremity/hand in day-to-day life. 2. 0-30 degrees active left wrist extension. 3. 0-60 degrees active left forearm supination. 4. Patient will demonstrate increased ability to actively incorporate L UE in day-to-day life, as evidenced by ability to tolerate left <-> right weight shifting x 10 trials, with hands positioned in frontal plane. 5. Patient will actively participate in standardized digit/guest history clerk strength testing as tolerated. Mental Telepathist Goals 1. Patient will be modified independent with execution of UE home exercise program utilizing provided written and visual instructions from therapist with support of family and caregivers. - Treatment 3 Descriptor Functional object manipulation . 2 Descriptor Tone management. Weight bearing. Mat level hand/ forearm. 1 Descriptor [place] Citizen e-stim. Facilitation of wrist/digit extension. x 10 min. 10/10 cycle. 36 intensity. Skin intact pre- and post- treatment. Use of towels to assist w/ positioning. Modality completed w/ patient seated up in w/c. Exercises 5 Descriptor Hand/finger AROM. Tendon glides. 4 Descriptor Cane exercises Side Both Body Position Supine Sets 2 Repetitions 10 3 Descriptor Compensatory motor planning/ object manipulation. 1 Descriptor HEP. Reviewed supine cane exercises w/ and new caregiver present. Sh flex; chest press; hor sh abd/add; sh abd; sh hor abd w/ ER; wrist ext. Scapular pinches w/ and without backwards sh shrugs were also recommended. Reviewed positioning of the UE out of vale pattern utilizing available surfaces. Recommended use of heat prior to ROM exercises w/ hands given h/o arthritis; recommended follow-up w/ PCP for additional recommendations for arthritis of the hands. Complexity Upgraded - Assessment Patient Response to Treatment Good Rehab Potential Good Assessment of Improvement Increased tolerance for therapeutic exercises/ activities observed on this treatment date. Mild swelling of L hand; swelling noted at the MCP joints of 2-5th digits of the L hand. (+) intrinsic tightness; (+) discomfort w/ WB for tone management and to encourage functional positioning of the hand/wrist. Decreased functional independence/functional abilities with active incorporation of the affected UE. Recommend that therapist addresses functional incorporation of the affected UE, tone management, weakness, motor planning, object manipulation, attention to L side of space/UE. Home Exercise Program Please refer to treatment section of note for specific details. Reviewed with Patient/Caregiver Goals,Progress Being Made,Home Exercise Program Patient/Caregiver Understanding Good - Plan Therapy Recommendations Continue with Current Program, Advance per Rehabilitation Protocol Additional Therapy Recommendations Consult w/ PT and THERMOMETER MAKER
--- NOTE | 2019-10-21 14:30 | OT.OP.TRT ---
Visit Care Team Role Provider Type Yesy Cortes MD Attending Provider Physician Primary Care Provider Specialty: Internal Medicine Address: [address] [place] [address], [address] Email: [email or web address] Occupational Therapy Treatment Note OT Outpatient Treatment Note - Adult Start: 09/29/19 07:33 Freq: Status: Active Protocol: Document 10/21/19 14:30 AMS (Rec: 10/22/19 11:54 AMS [id number]) OT Outpatient Adult Treatment Note Session Time Visit Start Time 13:30 Visit Stop Time 14:20 Total Visit Minutes 50 Visit Information Visit Number 06/28 Plan of Care Dates 09/18/19-12/11/2019 Insurance Information Medicare Setting Treatment Setting Outpatient Care Visit Type Note Type Treatment Note General Information General Information 69-yr-old male s/p 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 The pt was brought to [facility] ED where CT head revealed hemorrhage, then transferred via helicopter to [facility]. Pt underwent craniotomy on 04/16. He transferred to [facility] for rehab on 05/05 , where he remained until returning to [facility] 06/26 for surgical replacement of right side skull. He transferred from [facility] to [facility] for acute inpatient rehab from 06/30 - 07/18, returning home with Home Health PT/OT/ST until 09/12. While at [facility], the pt was seen by this RISK COMPLIANCE ANALYST x2 and followed the facility's primary RISK COMPLIANCE ANALYST Isabel Lyman, who targeted swallow and cognitve- linguistic rehab including left side neglect. Per pt/ spouse report, swallow function was determined rehabilitated at [facility] and re- assessed at [facility] and found to remain WNL. Per [facility] and Home Health RISK COMPLIANCE ANALYST reports, the pt has made progress with cognitive- linguistic skills but continues with deficits in areas of visuospatial/left side neglect, oral motor strength secondary to left side weakness, calendar and clock usage, sequencing task steps, and problem solving. The pt reported particular frustration with reading and working with numbers, stating I used to be really good with numbers and enjoyed reading. - Subjective Identification Type Name,Picture Others Present Family Observations My wrist was really hurting after the last time per Gerd. Chief Complaint(s) Restricts Loss of Function Marked Degree Effect on Activity Marked Degree Effect on Daily Life Marked Degree Patient/Caregiver Compliance with Home Good Exercise Program Comments w/ caregiver/family support - Objective Objective Measurements Please refer to below for progress towards meeting established OT goals. Short Term Goals 1. Patient will be able to oppose left thumb to second digit pad 4 out of 5 trials with increased effort and concentration demonstrating increasing ability to actively incorporate the left upper extremity/hand in day-to-day life. 2. 0-30 degrees active left wrist extension. 3. 0-60 degrees active left forearm supination. 4. Patient will demonstrate increased ability to actively incorporate L UE in day-to-day life, as evidenced by ability to tolerate left <-> right weight shifting x 10 trials, with hands positioned in frontal plane. 5. Patient will demonstrate improved ability to actively incorporate L UE in day-to-day life, as evidenced by increased director banking strength of the left hand. Gerd will average 15.0+ pounds of force with left director banking dynamometer II strength testing. GOALS MET Actively participated in standardized digit/director banking strength testing. Cutting Machine Tender Decorative/Lateral Urrutia Pinch. *MET 10/21/19 Outpatient Surgery Rn Goals 1. Patient will be modified independent with execution of UE home exercise program utilizing provided written and visual instructions from therapist with support of family and caregivers. - Treatment 4 Descriptor Bimanual coordination/ Stabilization for functional incorporation of the UE. Instructed in stabilization of jacket for manipulation of zipper w/ R hand; instructed in management of R sleeve w/ L hand; instructed in 2-handed obj manipulation (opening, drinking from container). 3 Descriptor Functional object manipulation . 2 Descriptor Tone management. Weight bearing. Mat level hand/ forearm. 1 Descriptor [place] Island[place] e-stim. Facilitation of wrist/digit extension. x 10 min. 10/10 cycle. 36 intensity. Skin intact pre- and post- treatment. Use of towels to assist w/ positioning. Modality completed w/ patient seated up in w/c. Exercises 5 Descriptor Hand/finger AROM. Thumb AROM. 4 Descriptor Cane exercises Side Both Body Position Supine Sets 2 Repetitions 10 3 Descriptor Compensatory motor planning/ object manipulation. 1 Descriptor HEP. Discussed ROM exercises for hand/thumb; visual and written instructions were obtained and will be provided to patient and as soon as able. Complexity Upgraded - Assessment Patient Response to Treatment Good Rehab Potential Good Assessment of Improvement Increased functional incorporation of affected UE w / instruction. L lateral urrutia pinch comparable to dominant R hand; however, would benefit from strengthening of L director banking strength. Decreased L UE motor planning to support functional incorporation/ ability to utilize available hand/digit strength. Decreased functional independence/ functional abilities with active incorporation of the affected UE. Recommend that therapist addresses functional incorporation of the affected UE, tone management, weakness , motor planning, object manipulation, attention to L side of space/UE. Recommended activities: tone management; functional ROM; bimanual coordination Home Exercise Program Please refer to treatment section of note for specific details. Reviewed with Patient/Caregiver Goals,Progress Being Made,Home Exercise Program Patient/Caregiver Understanding Good - Plan Therapy Recommendations Continue with Current Program, Advance per Rehabilitation Protocol Additional Therapy Recommendations Consult w/ PT and RISK COMPLIANCE ANALYST - convey 's request re: scheduling
--- NOTE | 2019-10-29 15:30 | OT.OP.TRT ---
Visit Care Team Role Provider Type Yesy Cortes MD Attending Provider Physician Primary Care Provider Specialty: Internal Medicine Address: [address] [place] [address], [id number] Email: [email or web address] Occupational Therapy Treatment Note OT Outpatient Treatment Note - Adult Start: 09/29/19 07:33 Freq: Status: Active Protocol: Document 10/29/19 13:30 AMS (Rec: 11/04/19 11:23 AMS [id number]) OT Outpatient Adult Treatment Note Session Time Visit Start Time 13:30 Visit Stop Time 14:20 Total Visit Minutes 50 Visit Information Visit Number 07/29 Plan of Care Dates 09/18/19-12/11/2019 Insurance Information Medicare Setting Treatment Setting Outpatient Care Visit Type Note Type Treatment Note General Information General Information 69-yr-old male s/p 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 The pt was brought to [facility] ED where CT head revealed hemorrhage, then [facility]. Pt underwent craniotomy on 04/16. He transferred to [facility] for rehab on 05/05 , where he remained until returning to [facility] 06/26 for surgical replacement of right side skull. He transferred from [facility] to [facility] for acute inpatient rehab from 06/30 - 07/18, returning home with Home Health PT/OT/ST until 09/12. While at [facility], the pt was seen by this CASINO DEALER x2 and followed the facility's primary CASINO DEALER Isabel Lyman, who targeted swallow and cognitve- linguistic rehab including left side neglect. Per pt/ spouse report, swallow function was determined rehabilitated at [facility] and re- assessed at [facility] and found to remain WNL. Per [facility] and Home Health CASINO DEALER reports, the pt has made progress with cognitive- linguistic skills but continues with deficits in areas of visuospatial/left side neglect, oral motor strength secondary to left side weakness, calendar and clock usage, sequencing task steps, and problem solving. The pt reported particular frustration with reading and working with numbers, stating I used to be really good with numbers and enjoyed reading. - Subjective Identification Type Name,Picture Others Present Family Observations I want to be able to go to the bathroom by myself per Gerd. Chief Complaint(s) Restricts Loss of Function Marked Degree Effect on Activity Marked Degree Effect on Daily Life Marked Degree Patient/Caregiver Compliance with Home Good Exercise Program Comments w/ caregiver/family support - Objective Objective Measurements Please refer to below for progress towards meeting established OT goals. Short Term Goals 1. Patient will be able to oppose left thumb to second digit pad 4 out of 5 trials with increased effort and concentration demonstrating increasing ability to actively incorporate the left upper extremity/hand in day-to-day life. 2. 0-30 degrees active left wrist extension. 3. 0-60 degrees active left forearm supination. 4. Patient will demonstrate increased ability to actively incorporate L UE in day-to-day life, as evidenced by ability to tolerate left <-> right weight shifting x 10 trials, with hands positioned in frontal plane. 5. Patient will demonstrate improved ability to actively incorporate L UE in day-to-day life, as evidenced by increased stage electrician helper strength of the left hand. Gerd will average 15.0+ pounds of force with left stage electrician helper dynamometer II strength testing. GOALS MET Actively participated in standardized digit/stage electrician helper strength testing. Agile Business Analyst/Lateral Nichols Pinch. *MET 10/21/19 Checker And Packer Goals 1. Patient will be modified independent with execution of UE home exercise program utilizing provided written and visual instructions from therapist with support of family and caregivers. - Treatment 4 Descriptor Bimanual coordination/ Stabilization for functional incorporation of the UE. 3 Descriptor Functional object manipulation . 2 Descriptor Tone management. Weight bearing. Exercises 7 Descriptor Elbow ext. Side Left Body Position Sitting Sets 3 Repetitions 10 Resistance TB #3 Complexity Upgraded 6 Descriptor Sh ext. Seated row. Side Left Body Position Sitting Sets 3 Repetitions 10 Resistance TB #3 Complexity Upgraded 5 Descriptor Hand/finger AROM. Thumb AROM. 3 Descriptor Compensatory motor planning/ object manipulation. 1 Descriptor HEP. No changes to HEP were made on this treatment date. Complexity Upgraded - Assessment Patient Response to Treatment Good Rehab Potential Good Assessment of Improvement Increased functional incorporation of affected UE w / instruction. Decreased L UE motor planning to support functional incorporation/ ability to utilize available hand/digit strength. Decreased functional independence/ functional abilities with active incorporation of the affected UE. Recommend that therapist addresses functional incorporation of the affected UE, tone management, weakness , motor planning, object manipulation, attention to L side of space/UE. Recommended activities: tone management; functional ROM; bimanual coordination Home Exercise Program Please refer to treatment section of note for specific details. Reviewed with Patient/Caregiver Goals,Progress Being Made,Home Exercise Program Patient/Caregiver Understanding Good - Plan Therapy Recommendations Continue with Current Program, Advance per Rehabilitation Protocol Additional Therapy Recommendations Consult w/ PT and CASINO DEALER
--- NOTE | 2019-11-05 14:49 | OT.OP.REEVAL ---
Visit Care Team Role Provider Type Yesy Cortes MD Attending Provider Physician Primary Care Provider Address: [address] [place] [address], [id number] Email: [email or web address] OT Outpatient OT Outpatient Adult Evaluation Start: 09/29/19 07:33 Freq: Status: Active Protocol: Document 09/18/19 15:30 AMS (Rec: 09/29/19 08:13 AMS [email or web address]) General Information Session Time Visit Start Time 12:30 Visit Stop Time 13:25 Total Visit Minutes 55 Visit Information Visit Number [id number] Plan of Care Dates 09/18/19-12/11/2019 Insurance Information Medicare Setting Treatment Setting Outpatient Care Visit Type Note Type Initial Evaluation Referral Referring Physician Yesy Cortes MD Reason for Referral CVA Identification Identification Confirmed Yes: Photo ID Identification Confirmed By Medical Information Medical History Patient is a 69 year-old male referred to outpatient OT by PCP, Yesy Cortes MD, 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 Patient was transferred from [facility] to [facility] where craniotomy was performed 04/16/19. Patient completed 7 weeks of rehab at [facility] and then underwent secondary surgery on 06/26/19 to replace skull fragment. Patient was then at acute rehab facility 06/30/19-07/18/19 . He was discharged home with assist from and caregivers. He received Home Health PT/OT/MAINFRAME SYSTEMS PROGRAMMER until . Therapy Pain Assessment Pain When Pain Assessed Pre-treat Pain Present Pain Present Pain Reported Location Left Foot Intensity 5 Scale Used Numeric (1 - 10) Left Upper Leg Intensity 7 Scale Used Numeric (1 - 10) Lower Back Intensity 7 Scale Used Numeric (1 - 10) Left Arm Intensity 4 Scale Used Numeric (1 - 10) Bilateral Shoulder Intensity 5 Scale Used Numeric (1 - 10) ADLs Overall Ability Comments Impaired; and caregiver assists patient w/ ADLS Dressing Skill Level Impaired Skill Level Impaired Skill Level Impaired Bathing Skill Level Impaired Toileting Skill Level Impaired Observations Observations Observations AROM of L thumb noted. Use of lateral nichols pinch. Unable to oppose left thumb to second digit pad. In-Hand Manipulation [id number] Translation Right Level of Ability WFL Left Level of Ability Unable [id number] Translation Right Level of Ability WFL Left Level of Ability Unable Shift Right Level of Ability WFL Left Level of Ability Unable Simple Rotation Right Level of Ability WFL Left Level of Ability Unable Complex Rotation Right Level of Ability WFL Left Level of Ability Unable Goals Treatment Treatment Education completed re: positioning of UE when at rest ; instructed in positioning in w/c and when in supported sitting. Education focus on positioning of UE away from protective pattern and to the left of the body w/ supported wrist extension as tolerated. Recommended active TT ROM w/ scapular retraction/ protraction in frontal plane given no c/o pain/discomfort w / this exercise. Short Term Goals Short Term Goals 1. Patient will be able to oppose left thumb to second digit pad 4 out of 5 trials with increased effort and concentration demonstrating increasing ability to actively incorporate the left upper extremity/hand in day-to-day life. 2. 0-30 degrees active left wrist extension. 3. 0-60 degrees active left forearm supination. 4. Patient will demonstrate increased ability to actively incorporate L UE in day-to-day life, as evidenced by ability to tolerate left <-> right weight shifting x 10 trials, with hands positioned in frontal plane. 5. Patient will actively participate in standardized digit/want ad supervisor strength testing as tolerated. Chcf Goals Artist Relationship Manager Goals 1. Patient will be modified independent with execution of UE home exercise program utilizing provided written and visual instructions from therapist with support of family and caregivers. 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 PMH : Significant for arthritis; back pain; blood pressure; fibromyalgia; 2 brain surgeries (March 2019); left sided neglect; impaired vision . PLOF: Independent w/ ADLS and IADLS. Evaluation findings: Reported pain/discomfort of L LE, lower back bilateral shoulders, and L UE; left sided neglect; impaired functional independence; patient focus on gait; poor tolerance for distal L UE splint; impaired sensation of L UE; L UE weakness; decreased L UE AROM; decreased object manipulation abilities of the L hand; spasticity into flexor pattern of UE; protective posturing of UE; impaired posture; impaired balance; and poor tolerance for UE weight bearing. Outpatient OT is recommended to address these areas in order to maximize Gerd's success with active participation in meaningful activities with active incorporation of the affected UE. Plan Comment 12 weeks Comment 1-2 times per week Therapeutic Contents Active Range of Motion, Adaptive Equipment Education, Client Education,Cognitive Skills Development,Functional Activities,Home Exercise Program,Joint Protection, Manual Therapy,Education, Neurodevelopment Treatment, Neuromuscular Re-Education, Self-Care,Stretching/ Flexibility Activities, Therapeutic Activities, Therapeutic Exercises, Modalities,Sensory Re- education Modalities As Needed,As Prescribed Types of Modalities Contrast Bath,E-Stim, Functional Stimulation (FES),T .E.N. Stimulation,TENS Placement/Application, Ultrasound Patient Instruction Home Exercise Program,Plan of Care,Questions/Concerns Sensory Assessment Sensory Profile2 Functional Wrist/Hand Scan Hand Side OT Outpatient Muscle Testing Start: 09/29/19 07:33 Freq: Status: Active Protocol: Document 11/05/19 14:25 AMS (Rec: 11/05/19 14:49 AMS [email or web address]) Tea Bag Machine Tender/Hand Strength Tea Bag Machine Tender/Hand Strength Left Tea Bag Machine Tender Dynamometer II 8.0 Lateral Pinch Strengh (lbs) 7.0 Comments Avg for Tea Bag Machine Tender and Lateral Pinch were obtained 10/21/19. Right Tea Bag Machine Tender Dynamometer II 44.0 Lateral Pinch Strengh (lbs) 10.0 Comments Avg for Tea Bag Machine Tender and Lateral Pinch were obtained 10/21/19. OT Outpatient Range of Motion Start: 09/29/19 07:33 Freq: Status: Active Protocol: Document 11/05/19 14:25 AMS (Rec: 11/05/19 14:49 AMS [email or web address]) ROM - Shoulder Shoulder Left Forearm ROM Testing Position Sitting Shoulder IR AROM (degrees) WFL IR Shoulder ER AROM (degrees) 0-30 Right Active Shoulder ROM WFL Yes Forearm ROM Testing Position Sitting ROM - Elbow/Forearm Elbow/Forearm Measured in Degrees Left ROM Testing Position Sitting Elbow Flex AROM (degrees) 120 Elbow Ext AROM (degrees) WFL Elbow Ext Forearm Pron AROM (degrees) WFL Pronation Forearm Sup AROM (degrees) 0-45 Right Elbow/Forearm ROM WFL Yes ROM Testing Position Sitting ROM - Wrist Wrist Range of Motion Measured in Degrees Left ROM Testing Position Sitting Wrist Flex AROM (degrees) 0-70 Wrist Ext AROM Fingers Open (degrees) 0 Wrist Ext AROM Fingers Flexed (degrees) 0-10 Ulnar Deviation AROM (degrees) 0-20 Radial Deviation AROM (degrees) 0-15 Wrist ROM WFL No Right Active ROM Testing Position Sitting Wrist ROM WFL Yes ROM Limitations Wrist ROM Limitations Muscle Tone OT Outpatient Treatment Note - Adult Start: 09/29/19 07:33 Freq: Status: Active Protocol: Document 11/05/19 14:25 AMS (Rec: 11/05/19 14:49 AMS [email or web address]) OT Outpatient Adult Treatment Note Session Time Visit Start Time 13:30 Visit Stop Time 14:20 Total Visit Minutes 50 Visit Information Visit Number 11/[id number] Plan of Care Dates 11/05/19-01/28/20 Insurance Information Medicare Setting Treatment Setting Outpatient Care Visit Type Note Type Re-Evaluation General Information General Information 69-yr-old male s/p 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 The pt was brought to [facility] ED where CT head revealed hemorrhage, then transferred via helicopter to [facility]. Pt underwent craniotomy on 04/16. He transferred to [facility] for rehab on 05/05 , where he remained until returning to [facility] 06/26 for surgical replacement of right side skull. He transferred from [facility] to [facility] for acute inpatient rehab from 06/30 - 07/18, returning home with Home Health PT/OT/ST until 09/12. While at [facility], the pt was seen by this MAINFRAME SYSTEMS PROGRAMMER x2 and followed the facility's primary MAINFRAME SYSTEMS PROGRAMMER Isabel Lyman, who targeted swallow and cognitve- linguistic rehab including left side neglect. Per pt/ spouse report, swallow function was determined rehabilitated at [facility] and re- assessed at [facility] and found to remain WNL. Per [facility] and Home Health MAINFRAME SYSTEMS PROGRAMMER reports, the pt has made progress with cognitive- linguistic skills but continues with deficits in areas of visuospatial/left side neglect, oral motor strength secondary to left side weakness, calendar and clock usage, sequencing task steps, and problem solving. The pt reported particular frustration with reading and working with numbers, stating I used to be really good with numbers and enjoyed reading. - Subjective Identification Type Name,Picture Others Present Family Observations I was sore in this hand and this leg after the pool for a couple of days per Gerd. She made a vest out of neoprene and I was much warmer this time in the pool. Chief Complaint(s) Restricts Loss of Function Marked Degree Effect on Activity Marked Degree Effect on Daily Life Marked Degree Patient/Caregiver Compliance with Home Good Exercise Program Comments w/ caregiver/family support - Objective Objective Measurements Please refer to below for progress towards meeting established OT goals. Short Term Goals 1. Patient will be able to oppose left thumb to second digit pad 4 out of 5 trials with increased effort and concentration demonstrating increasing ability to actively incorporate the left upper extremity/hand in day-to-day life. 11/05/19= 50% met; 2 out of 5 trials; inconsistent w/ accuracy w/ thumb to 2nd digit pad opposition 2. 0-30 degrees active left wrist extension. 3. 0-60 degrees active left forearm supination. 11/05/19= 25% met 4. Patient will demonstrate increased ability to actively incorporate L UE in day-to-day life, as evidenced by ability to tolerate left <-> right weight shifting x 10 trials, with hands positioned in frontal plane. 11/05/19= Poor liz for WB 5. Patient will demonstrate improved ability to actively incorporate L UE in day-to-day life, as evidenced by increased want ad supervisor strength of the left hand. Gerd will average 15.0+ pounds of force with left want ad supervisor dynamometer II strength testing. GOALS MET Actively participated in standardized digit/want ad supervisor strength testing. Tea Bag Machine Tender/Lateral Nichols Pinch. *MET 10/21/19 Artist Relationship Manager Goals 1. Patient will be modified independent with execution of UE home exercise program utilizing provided written and visual instructions from therapist with support of family and caregivers. = 25% met - Treatment 4 Descriptor Bimanual coordination/ Stabilization for functional incorporation of the UE. 3 Descriptor Functional object manipulation . 2 Descriptor Tone management. Weight bearing. Exercises 10 Descriptor UEB Side Both Body Position Seated in w/c Time x5 min Complexity Upgraded 9 Descriptor Sh abd Side Left Body Position Sitting Sets 1 Repetitions 10 Resistance TB #1 8 Descriptor Sh ext Side Left Body Position Sitting Sets 2 Repetitions 10 Resistance TB #3 7 Descriptor Elbow ext Side Left Body Position Sitting Sets 2 Repetitions 10 Resistance TB #3 6 Descriptor Seated row Side Left Body Position Sitting Sets 2 Repetitions 10 Resistance TB #3 5 Descriptor Hand/finger AROM. Thumb AROM. 3 Descriptor Compensatory motor planning/ object manipulation. 1 Descriptor HEP. No changes to HEP were made on this treatment date. Complexity Upgraded - Assessment Patient Response to Treatment Good Rehab Potential Good Assessment of Improvement Over the course of this certification period, Gerd has demonstrated progress relative to functional incorporation of the upper extremity (for stabilization of objects), as well as attention to the left side of the body. Gerd is demonstrating improving motor coordination of the left hand w/ gross/static grasps w/ obj manipulation w/ use of visual feedback. Gerd was able to maintain hand on UEB handle without assist x5 min. Gerd continues to present w/ decreased liz for WB through the UE particularly through the hand and with the wrist positioned in extension. Based on Gerd's dec liz for WB and difficulties w/ motor planning of the UE, Gerd cont to struggle w/ functional incorporation of the UE. Continued outpatient OT is recommended w/ focus on functional incorporation of the UE; recommend continuing to address motor planning and advancing activities as tolerated. Recommended activities: UEB; functional obj manipulation/ stabilization; UE motor planning; neuro handling/ functional support of neuro handling. Home Exercise Program Please refer to treatment section of note for specific details. Reviewed with Patient/Caregiver Goals,Progress Being Made,Home Exercise Program Patient/Caregiver Understanding Good - Plan Therapy Recommendations Continue with Current Program, Advance per Rehabilitation Protocol Additional Therapy Recommendations Consult w/ other therapies Comment 12 weeks Comment 1-2 times per week Therapeutic Contents Active Range of Motion, Adaptive Equipment Education, Client Education,Cognitive Skills Development,Functional Activities,Home Exercise Program,Joint Protection, Manual Therapy,Education, Neurodevelopment Treatment, Neuromuscular Re-Education, Self-Care,Stretching/ Flexibility Activities, Therapeutic Activities, Therapeutic Exercises, Modalities,Sensory Re- education Types of Modalities Contrast Bath,E-Stim, Functional Stimulation (FES),T .E.N. Stimulation,TENS Placement/Application, Ultrasound
--- NOTE | 2019-11-13 14:35 | OT.OP.TRT ---
Visit Care Team Role Provider Type Yesy Cortes MD Attending Provider Physician Primary Care Provider Specialty: Internal Medicine Address: [address] [place] [address], [address] Email: [email or web address] Occupational Therapy Treatment Note OT Outpatient Treatment Note - Adult Start: 09/29/19 07:33 Freq: Status: Active Protocol: Document 11/13/19 14:29 AMS (Rec: 11/13/19 14:35 AMS [id number]) OT Outpatient Adult Treatment Note Session Time Visit Start Time 13:30 Visit Stop Time 14:20 Total Visit Minutes 50 Visit Information Visit Number 12/29 Plan of Care Dates 11/05/19-01/28/20 Insurance Information Medicare Setting Treatment Setting Outpatient Care Visit Type Note Type Treatment Note General Information General Information 69-yr-old male s/p 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 The pt was brought to [facility] ED where CT head revealed hemorrhage, then transferred via helicopter to [facility]. Pt underwent craniotomy on 04/16. He transferred to [facility] for rehab on 05/05 , where he remained until returning to [facility] 06/26 for surgical replacement of right side skull. He transferred from [facility] to [facility] for acute inpatient rehab from 06/30 - 07/18, returning home with Home Health PT/OT/ST until 09/12. While at [facility], the pt was seen by this EXCHANGE MECHANIC x2 and followed the facility's primary EXCHANGE MECHANIC Isabel Lyman, who targeted swallow and cognitve- linguistic rehab including left side neglect. Per pt/ spouse report, swallow function was determined rehabilitated at [facility] and re- assessed at [facility] and found to remain WNL. Per [facility] and Home Health EXCHANGE MECHANIC reports, the pt has made progress with cognitive- linguistic skills but continues with deficits in areas of visuospatial/left side neglect, oral motor strength secondary to left side weakness, calendar and clock usage, sequencing task steps, and problem solving. The pt reported particular frustration with reading and working with numbers, stating I used to be really good with numbers and enjoyed reading. - Subjective Identification Type Name,Picture Others Present Family Observations Felipe did the stairs with him the other day per . He has been using that hand to hold onto water bottles per . Patient/Caregiver Compliance with Home Good Exercise Program Comments w/ caregiver/family support - Objective Objective Measurements Please refer to below for progress towards meeting established OT goals. Short Term Goals 1. Patient will be able to oppose left thumb to second digit pad 4 out of 5 trials with increased effort and concentration demonstrating increasing ability to actively incorporate the left upper extremity/hand in day-to-day life. 11/05/19= 50% met; 2 out of 5 trials; inconsistent w/ accuracy w/ thumb to 2nd digit pad opposition 2. 0-30 degrees active left wrist extension. 3. 0-60 degrees active left forearm supination. 11/05/19= 25% met 4. Patient will demonstrate increased ability to actively incorporate L UE in day-to-day life, as evidenced by ability to tolerate left <-> right weight shifting x 10 trials, with hands positioned in frontal plane. 11/05/19= Poor liz for WB 5. Patient will demonstrate improved ability to actively incorporate L UE in day-to-day life, as evidenced by increased purchasing specialist strength of the left hand. Gerd will average 15.0+ pounds of force with left purchasing specialist dynamometer II strength testing. GOALS MET Actively participated in standardized digit/purchasing specialist strength testing. Domestic Freight Forwarder/Lateral Nichols Pinch. *MET 10/21/19 Fdc Goals 1. Patient will be modified independent with execution of UE home exercise program utilizing provided written and visual instructions from therapist with support of family and caregivers. = 25% met - Treatment 4 Descriptor Bimanual coordination/ Stabilization for functional incorporation of the UE. 3 Descriptor Functional object manipulation . 2 Descriptor Tone management. Weight bearing. Exercises 11 Descriptor ER Side Left Body Position Sitting Sets 2 Repetitions 10 Resistance TB #1 10 Descriptor UEB Side Both Body Position Seated in w/c Time x4 min 9 Descriptor Sh abd. Sh flex. Side Left Body Position Sitting Sets 2 Repetitions 10 Resistance TB #1 Complexity Upgraded 8 Descriptor Sh ext Side Left Body Position Sitting Sets 2 Repetitions 10 Resistance TB #3 7 Descriptor Elbow ext Side Left Body Position Sitting Sets 2 Repetitions 10 Resistance TB #3 6 Descriptor Seated row Side Left Body Position Sitting Sets 2 Repetitions 10 Resistance TB #3 5 Descriptor Hand/finger AROM. Thumb AROM. 3 Descriptor Compensatory motor planning/ object manipulation. 1 Descriptor HEP. No changes to HEP were made on this treatment date. - Assessment Patient Response to Treatment Good Rehab Potential Good Assessment of Improvement Decreased liz for WB; (+) active incorporation of L UE w / stabilization w/ day-to-day task completion. Initiated focus on grading of force w/ obj manip; able to stack dominoes lengthwise w/ left hand x 3 trials w/ therapist stabilizating bottom emma of stack. Expressed desire to be able to manage small buttons of clothing w/ dressing. Continued outpatient OT is recommended w/ focus on functional incorporation of the UE; recommend continuing to address motor planning and advancing activities as tolerated. Recommended activities: UEB; functional obj manipulation/ stabilization; UE motor planning; neuro handling Home Exercise Program Please refer to treatment section of note for specific details. Reviewed with Patient/Caregiver Goals,Progress Being Made,Home Exercise Program Patient/Caregiver Understanding Good - Plan Therapy Recommendations Continue with Current Program, Advance per Rehabilitation Protocol Additional Therapy Recommendations Consult w/ other therapies
--- NOTE | 2019-11-17 16:05 | OT.OP.TRT ---
Visit Care Team Role Provider Type Yesy Cortes MD Attending Provider Physician Primary Care Provider Specialty: Internal Medicine Address: [address] [place] [address], [address] Email: [email or web address] Occupational Therapy Treatment Note OT Outpatient Treatment Note - Adult Start: 09/29/19 07:33 Freq: Status: Active Protocol: Document 11/17/19 15:53 AMS (Rec: 11/17/19 16:04 AMS [email or web address]) OT Outpatient Adult Treatment Note Session Time Visit Start Time 13:30 Visit Stop Time 14:20 Total Visit Minutes 50 Visit Information Visit Number 01/26 Plan of Care Dates 11/05/19-01/28/20 Insurance Information Medicare Setting Treatment Setting Outpatient Care Visit Type Note Type Treatment Note General Information General Information 69-yr-old male s/p 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 The pt was brought to [facility] ED where CT head revealed hemorrhage, then transferred via helicopter to [facility]. Pt underwent craniotomy on 04/16. He transferred to [facility] for rehab on 05/05 , where he remained until returning to [facility] 06/26 for surgical replacement of right side skull. He transferred from [facility] to [facility] for acute inpatient rehab from 06/30 - 07/18, returning home with Home Health PT/OT/ST until 09/12. While at [facility], the pt was seen by this QA INTERN x2 and followed the facility's primary QA INTERN Isabel Lyman, who targeted swallow and cognitve- linguistic rehab including left side neglect. Per pt/ spouse report, swallow function was determined rehabilitated at [facility] and re- assessed at [facility] and found to remain WNL. Per [facility] and Home Health QA INTERN reports, the pt has made progress with cognitive- linguistic skills but continues with deficits in areas of visuospatial/left side neglect, oral motor strength secondary to left side weakness, calendar and clock usage, sequencing task steps, and problem solving. The pt reported particular frustration with reading and working with numbers, stating I used to be really good with numbers and enjoyed reading. - Subjective Identification Type Name,Picture Others Present Family Observations I was able to do most of my buttons with just this hand per Gerd re: use of right hand . Chief Complaint(s) Restricts Loss of Function Marked Degree Effect on Activity Marked Degree Effect on Daily Life Marked Degree Patient/Caregiver Compliance with Home Good Exercise Program Comments w/ caregiver/family support - Objective Objective Measurements Please refer to below for progress towards meeting established OT goals. Short Term Goals 1. Patient will be able to oppose left thumb to each digit pad x 2 out of 3 cycles, with no more than 1 error, with increased effort and concentration demonstrating increasing ability to actively incorporate the left upper extremity/hand in day-to-day life. 11/17/19= GOAL UPGRADED 2. 0-30 degrees active left wrist extension. 3. 0-60 degrees active left forearm supination. 11/05/19= 25% met 4. Patient will demonstrate increased ability to actively incorporate L UE in day-to-day life, as evidenced by ability to tolerate left <-> right weight shifting x 10 trials, with hands positioned in frontal plane on horizontal parallel bar. 11/17/19= modified goal 5. Patient will demonstrate improved ability to actively incorporate L UE in day-to-day life, as evidenced by increased dual hose cementer strength of the left hand. Gerd will average 15.0+ pounds of force with left dual hose cementer dynamometer II strength testing. GOALS MET Actively participated in standardized digit/dual hose cementer strength testing. Etl Software Engineer/Lateral Nichols Pinch. *MET 10/21/19 Opposed L thumb to second digit pad 4 out of 5 trials w/ increased effort/ concentration. *MET 11/17/19 Wait Staff Goals 1. Patient will be modified independent with execution of UE home exercise program utilizing provided written and visual instructions from therapist with support of family and caregivers. = 25% met - Treatment 4 Descriptor Bimanual coordination/ Stabilization for functional incorporation of the UE. 3 Descriptor Functional object manipulation . 2 Descriptor Tone management. Weight bearing. Functional WB w/ s-s and standing at horizontal parallel bar from w/c (focus on functional WB). Exercises 11 Descriptor ER Side Left Body Position Sitting Sets 2 Repetitions 10 Resistance TB #1 10 Descriptor UEB. Seated. Height 1 x 2 min. Height 2 x 1 min. Body Position Seated in w/c Time x4 min Complexity Upgraded 9 Descriptor Sh abd. Sh flex. Side Left Body Position Sitting Sets 2 Repetitions 10 Resistance TB #1 8 Descriptor Sh ext Side Left Body Position Sitting Sets 2 Repetitions 10 Resistance TB #4 Complexity Upgraded 7 Descriptor Elbow ext Side Left Body Position Sitting Sets 2 Repetitions 10 Resistance TB #4 Complexity Upgraded 6 Descriptor Seated row Side Left Body Position Sitting Sets 2 Repetitions 10 Resistance TB #4 Complexity Upgraded 5 Descriptor Hand/finger AROM. Thumb AROM. 3 Descriptor Compensatory motor planning/ object manipulation. 1 Descriptor HEP/POC. Upgraded therapeutic exercises/neuro activities on this treatment date. Recommend providing written and visual instructions for theraband UE strengthening exercises at time of next treatment session . Recommend advancing weight bearing activities as tolerated to support functional abilities in the home; recommend coordinating w / PT. - Assessment Patient Response to Treatment Good Rehab Potential Good Assessment of Improvement Improving functional independence utilizing modified techniques; 1-handed buttoning w/ some stabilization of shirt material w/ affected UE. Improving UE strength; able to increase resistance w/ some exercises. Improving motor planning of the affected hand; met goal in this area. Upgraded goal accordingly. Improving tolerance for weight bearing; able to initiate functional weight bearing/ weight shifting onto affected hand/UE. Continued outpatient OT is recommended w/ focus on functional incorporation of the UE; recommend continuing to address motor planning and advancing activities as tolerated. Recommended activities: UEB; functional obj manipulation/ stabilization; UE motor planning; neuro handling Home Exercise Program Please refer to treatment section of note for specific details. Reviewed with Patient/Caregiver Goals,Progress Being Made,Home Exercise Program Patient/Caregiver Understanding Good - Plan Therapy Recommendations Continue with Current Program, Advance per Rehabilitation Protocol Additional Therapy Recommendations Consult w/ other therapies
--- NOTE | 2019-11-27 14:13 | OT.OP.TRT ---
Visit Care Team Role Provider Type Yesy Cortes MD Attending Provider Physician Primary Care Provider Specialty: Internal Medicine Address: [address] [place] [address], [id number] Email: [email or web address] Occupational Therapy Treatment Note OT Outpatient Treatment Note - Adult Start: 09/29/19 07:33 Freq: Status: Active Protocol: Document 11/27/19 14:00 AMS (Rec: 11/27/19 14:12 AMS [email or web address]) OT Outpatient Adult Treatment Note Session Time Visit Start Time 12:30 Visit Stop Time 13:20 Total Visit Minutes 50 Visit Information Visit Number 02/26 Plan of Care Dates 11/05/19-01/28/20 Insurance Information Medicare Setting Treatment Setting Outpatient Care Visit Type Note Type Treatment Note General Information General Information 69-yr-old male s/p 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 The pt was brought to [facility] ED where CT head revealed hemorrhage, then transferred via helicopter to [facility] [place]. Pt underwent craniotomy on 04/16. He transferred to [facility] for rehab on 05/05 , where he remained until returning to [facility] 06/26 for surgical replacement of right side skull. He transferred from [facility] to [facility] for acute inpatient rehab from 06/30 - 07/18, returning home with Home Health PT/OT/ST until 09/12. While at [facility], the pt was seen by this SMALL BUSINESS REPRESENTATIVE x2 and followed the facility's primary SMALL BUSINESS REPRESENTATIVE Isabel Lyman, who targeted swallow and cognitve- linguistic rehab including left side neglect. Per pt/ spouse report, swallow function was determined rehabilitated at [facility] and re- assessed at [facility] and found to remain WNL. Per [facility] and Home Health SMALL BUSINESS REPRESENTATIVE reports, the pt has made progress with cognitive- linguistic skills but continues with deficits in areas of visuospatial/left side neglect, oral motor strength secondary to left side weakness, calendar and clock usage, sequencing task steps, and problem solving. The pt reported particular frustration with reading and working with numbers, stating I used to be really good with numbers and enjoyed reading. - Subjective Identification Type Name,Picture Others Present Family Observations I have the soft yellow theraputty at home per Gerd. It is way too soft. Chief Complaint(s) Restricts Loss of Function Marked Degree Effect on Activity Marked Degree Effect on Daily Life Marked Degree Patient/Caregiver Compliance with Home Excellent Exercise Program Comments w/ caregiver/family support - Objective Objective Measurements Please refer to below for progress towards meeting established OT goals. Short Term Goals 1. Patient will be able to oppose left thumb to each digit pad x 2 out of 3 cycles, with no more than 1 error, with increased effort and concentration demonstrating increasing ability to actively incorporate the left upper extremity/hand in day-to-day life. 11/27/19= decreased accuracy w/ 4th and 5th digit opposition 2. 0-30 degrees active left wrist extension. 3. 0-60 degrees active left forearm supination. 11/05/19= 25% met 4. Patient will demonstrate increased ability to actively incorporate L UE in day-to-day life, as evidenced by ability to tolerate left <-> right weight shifting x 10 trials, with hands positioned in frontal plane on horizontal parallel bar. 11/17/19= modified goal 5. Patient will demonstrate improved ability to actively incorporate L UE in day-to-day life, as evidenced by increased marketing mgr strength of the left hand. Gerd will average 15.0+ pounds of force with left marketing mgr dynamometer II strength testing. GOALS MET Actively participated in standardized digit/marketing mgr strength testing. Nutrition Associate/Lateral Urrutia Pinch. *MET 10/21/19 Opposed L thumb to second digit pad 4 out of 5 trials w/ increased effort/ concentration. *MET 11/17/19 Halfway Goals 1. Patient will be modified independent with execution of UE home exercise program utilizing provided written and visual instructions from therapist with support of family and caregivers. = 25% met 2. Patient will be able to don upper body clothing items (e.g., donning of shirt/jacket ) with modified independence utilizing compensatory strategies on a daily basis based on spouse/patient verbal report, as observed over a 7- day period of time. 3. Patient will be able to doff upper body clothing items with modified independence utilizing compensatory strategies on a daily basis based on spouse/patient verbal report, as observed over a 7- day period of time. - Treatment 4 Descriptor Bimanual coordination/ Stabilization for functional incorporation of the UE. 3 Descriptor Functional object manipulation . 2 Descriptor Tone management. Weight bearing. Functional WB. Exercises 11 Descriptor ER Side Left Body Position Sitting Sets 1 Repetitions 10 Resistance TB #1 10 Descriptor UEB. Seated. Height 1 x 2 min. Height 2 x 1 min. Body Position Seated in w/c Time x4 min Complexity Upgraded 9 Descriptor Sh abd. Sh flex. Side Left Body Position Sitting Sets 2 Repetitions 10 Resistance TB #1 8 Descriptor Sh ext Side Left Body Position Sitting Sets 1 Repetitions 10 Resistance TB #3 7 Descriptor Elbow ext Side Left Body Position Sitting Sets 1 Repetitions 10 Resistance TB #3 6 Descriptor Seated row Side Left Body Position Sitting Sets 1 Repetitions 10 Resistance TB #3 5 Descriptor Hand/finger AROM. Thumb AROM. 3 Descriptor Compensatory motor planning. Object manipulation. Functional motor planning at EOM. Donning zip-up jacket ( min phys assist); doffing zip- up jacket (max phys assist). Donning L shoe (min physical assistance). Donning pants on left side to knee level (min physical assistance). Complexity Upgraded 1 Descriptor HEP/POC. Upgraded therapeutic exercises/neuro activities on this treatment date. Provided patient with written and visual instructions for home exercise program; provided patient w/ personal TB #1 and TB #3. Provided patient with personal blue theraputty for home use. Recommended focus on strengthening of lateral pinch to support functional success w/ dressing tasks. Discussed use of elastic shoe laces/zip lock laces and edge sawyer. Recommend reviewing functional abilities at time of next treatment session, as well as providing patient and spouse w/ written and visual instructions. Complexity Upgraded - Assessment Patient Response to Treatment Good Rehab Potential Good Assessment of Improvement Improving functional independence; reviewed techniques for donning zip-up jacket (2 approaches), left shoe, distal LB pant management w/ and without edge sawyer. Reviewed TB UE strengthening exercises for HEP; provision of appropriate resistant theraband. Provided increased resistant theraputty for home use to support functoinal abilities utilizing lateral urrutia pinch approach. Continued outpatient OT is recommended w/ focus on functional incorporation of the UE; recommend continuing to address motor planning and advancing activities as tolerated. Questions from patient and spouse re: functional independence w/ transfers; recommended that they follow-up w/ PT and consult manual for transport w /c for questions re: tightening of brakes. Recommended activities: UEB; functional obj manipulation/ stabilization; UE motor planning; neuro handling; functional tasks utilizing AE/ compensatory techniques as needed/necessary Home Exercise Program Please refer to treatment section of note for specific details. Reviewed with Patient/Caregiver Goals,Progress Being Made,Home Exercise Program Patient/Caregiver Understanding Good - Plan Therapy Recommendations Continue with Current Program, Advance per Rehabilitation Protocol
--- NOTE | 2019-12-09 14:29 | OT.OP.TRT ---
Visit Care Team Role Provider Type Yesy Cortes MD Attending Provider Physician Primary Care Provider Specialty: Internal Medicine Address: [address] [place] [address], [address] Email: [email or web address] Occupational Therapy Treatment Note OT Outpatient Treatment Note - Adult Start: 09/29/19 07:33 Freq: Status: Active Protocol: Document 12/09/19 13:26 AMS (Rec: 12/09/19 13:33 AMS [id number]) OT Outpatient Adult Treatment Note Session Time Visit Start Time 12:35 Visit Stop Time 13:25 Total Visit Minutes 50 Visit Information Visit Number 03/28 Plan of Care Dates 11/05/19-01/28/20 Insurance Information Medicare Setting Treatment Setting Outpatient Care Visit Type Note Type Treatment Note General Information General Information 69-yr-old male s/p 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 The pt was brought to [facility] ED where CT head revealed hemorrhage, then transferred via helicopter to [facility]. Pt underwent craniotomy on 04/16. He transferred to [facility] for rehab on 05/05 , where he remained until returning to [facility] 06/26 for surgical replacement of right side skull. He transferred from [facility] to [facility] for acute inpatient rehab from 06/30 - 07/18, returning home with Home Health PT/OT/ST until 09/12. While at [facility], the pt was seen by this POLICE COMMUNICATIONS OPERATOR x2 and followed the facility's primary POLICE COMMUNICATIONS OPERATOR Isabel Lyman, who targeted swallow and cognitve- linguistic rehab including left side neglect. Per pt/ spouse report, swallow function was determined rehabilitated at [facility] and re- assessed at [facility] and found to remain WNL. Per [facility] and Home Health POLICE COMMUNICATIONS OPERATOR reports, the pt has made progress with cognitive- linguistic skills but continues with deficits in areas of visuospatial/left side neglect, oral motor strength secondary to left side weakness, calendar and clock usage, sequencing task steps, and problem solving. The pt reported particular frustration with reading and working with numbers, stating I used to be really good with numbers and enjoyed reading. - Subjective Identification Type Name,Picture Others Present Family Observations accompanied Gerd to treatment session. He has really been working on that hand at home per . Chief Complaint(s) Restricts Loss of Function Marked Degree Effect on Activity Marked Degree Effect on Daily Life Marked Degree Patient/Caregiver Compliance with Home Excellent Exercise Program Comments w/ caregiver/family support - Objective Objective Measurements Please refer to below for progress towards meeting established OT goals. Re- assessed tube draw helper strength on this treatment date. Short Term Goals 1. Patient will be able to oppose left thumb to each digit pad x 2 out of 3 cycles, with no more than 1 error, with increased effort and concentration demonstrating increasing ability to actively incorporate the left upper extremity/hand in day-to-day life. 12/09/19= 50% met 2. 0-30 degrees active left wrist extension. 12/09/19= 0-20 degrees w/ fingers flexed 3. Patient will demonstrate increased ability to actively incorporate L UE in day-to-day life, as evidenced by ability to tolerate left <-> right weight shifting x 10 trials, with hands positioned in frontal plane on horizontal parallel bar. 11/17/19= modified goal GOALS MET Actively participated in standardized digit/tube draw helper strength testing. Paintless Dent Repair Technician/Lateral Nichols Pinch. *MET 10/21/19 Opposed L thumb to second digit pad 4 out of 5 trials w/ increased effort/ concentration. *MET 11/17/19 0-60 degrees active left forearm supination. *MET = 0-75 degrees Will average 15.0+ pounds of force with L tube draw helper dynamometer II strength testing. *MET 12/09 = 22.0# Retirement Goals 1. Patient will be modified independent with execution of UE home exercise program utilizing provided written and visual instructions from therapist with support of family and caregivers. = 25% met 2. Patient will be able to don upper body clothing items (e.g., donning of shirt/jacket ) with modified independence utilizing compensatory strategies on a daily basis based on spouse/patient verbal report, as observed over a 7- day period of time. 3. Patient will be able to doff upper body clothing items with modified independence utilizing compensatory strategies on a daily basis based on spouse/patient verbal report, as observed over a 7- day period of time. - Treatment 4 Descriptor Bimanual coordination/ Stabilization for functional incorporation of the UE. 3 Descriptor Functional object manipulation . 2 Descriptor Tone management. Weight bearing. Functional WB. Exercises 11 Descriptor ER Side Left Body Position Sitting Sets 1 Repetitions 10 Resistance TB #1 9 Descriptor Sh abd. Sh flex. Side Left Body Position Sitting Sets 2 Repetitions 10 Resistance TB #1 8 Descriptor Sh ext Side Left Body Position Sitting Sets 1 Repetitions 10 Resistance TB #3 7 Descriptor Elbow ext Side Left Body Position Sitting Sets 1 Repetitions 10 Resistance TB #3 6 Descriptor Seated row Side Left Body Position Sitting Sets 1 Repetitions 10 Resistance TB #3 5 Descriptor Hand/finger AROM. Thumb AROM. 3 Descriptor Compensatory motor planning. Object manipulation. Functional motor planning at EOM. Reviewed donning of L shoe seated at EOM. Written and visual instructions provided to support functional independence w/ dressing. Complexity Upgraded 1 Descriptor HEP/POC. Upgraded HEP; provided written and visual instructions to support functional independence w/ dressing. Recommended working on smaller object manipulation /grading of force w/ manipulation of objects on the radial side of the hand. was present throughout treatment session; both patient and denied questions. Complexity Upgraded - Assessment Patient Response to Treatment Good Rehab Potential Good Assessment of Improvement Improving tube draw helper strength; met short term goal in this area. Improving distal AROM of UE; this is evidenced by patient meeting short term goal in this area and progress towards meeting another goal in this area. Initiated smaller object manipulation to support motor planning/grading of force. Discussed functional activities to support motor planning of affected UE; progressed from stabilization to twisting lids w/ affected hand. Decreased motor planning of the hand; decreased obj manipulation abilities, including in-hand manipulation . Continued outpatient OT is recommended w/ focus on functional incorporation of the UE; recommend continuing to address motor planning and advancing activities as tolerated. Recommended activities: UEB; functional obj manipulation/ stabilization; UE motor planning; neuro handling; functional tasks utilizing AE/ compensatory techniques as needed/necessary Home Exercise Program Please refer to treatment section of note for specific details. Reviewed with Patient/Caregiver Goals,Progress Being Made,Home Exercise Program Patient/Caregiver Understanding Excellent - Plan Therapy Recommendations Continue with Current Program, Advance per Rehabilitation Protocol Additional Therapy Recommendations Consult w/ other therapies
--- NOTE | 2019-12-16 12:59 | OT.OP.TRT ---
Visit Care Team Role Provider Type Yesy Cortes MD Attending Provider Physician Primary Care Provider Specialty: Internal Medicine Address: [address] [place] [address], [address] Email: [email or web address] Treatment Note OT Outpatient Treatment Note - Adult Start: 09/29/19 07:33 Freq: Status: Active Protocol: Document 12/16/19 12:44 AMS (Rec: 12/16/19 12:59 AMS [id number]) OT Outpatient Adult Treatment Note Session Time Visit Start Time 11:30 Visit Stop Time 12:20 Total Visit Minutes 50 Visit Information Visit Number 04/28 Plan of Care Dates 11/05/19-01/28/20 Insurance Information Medicare Setting Treatment Setting Outpatient Care Visit Type Note Type Treatment Note General Information General Information 69-yr-old male s/p 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 The pt was brought to [facility] ED where CT head revealed hemorrhage, then transferred via helicopter to [facility]. Pt underwent craniotomy on 04/16. He transferred to [facility] for rehab on 05/05 , where he remained until returning to [facility] 06/26 for surgical replacement of right side skull. He transferred from [facility] to [facility] for acute inpatient rehab from 06/30 - 07/18, returning home with Home Health PT/OT/ST until 09/12. While at [facility], the pt was seen by this RFID SYSTEMS ARCHITECT x2 and followed the facility's primary RFID SYSTEMS ARCHITECT Isabel Lyman, who targeted swallow and cognitve- linguistic rehab including left side neglect. Per pt/ spouse report, swallow function was determined rehabilitated at [facility] and re- assessed at [facility] and found to remain WNL. Per [facility] and Home Health RFID SYSTEMS ARCHITECT reports, the pt has made progress with cognitive- linguistic skills but continues with deficits in areas of visuospatial/left side neglect, oral motor strength secondary to left side weakness, calendar and clock usage, sequencing task steps, and problem solving. The pt reported particular frustration with reading and working with numbers, stating I used to be really good with numbers and enjoyed reading. - Subjective Identification Type Name,Picture Others Present Family Observations accompanied Gerd to treatment session. One of his goals is to be able to use the bathroom by himself per . Chief Complaint(s) Restricts Loss of Function Marked Degree Effect on Activity Marked Degree Effect on Daily Life Marked Degree Patient/Caregiver Compliance with Home Excellent Exercise Program Comments w/ caregiver/family support - Objective Objective Measurements Please refer to below for progress towards meeting established OT goals. AROM measurements for the L UE were obtained on this treatment date; please refer to standardized section of note for specific details. Impaired sensation of L UE; absent sensation of distal UE (volar/ dorsal surfaces of the hand). Absent touch noted in the areas of light, pain, stereognosis. Report of some sense of touch noted w/ vibration elbow --> distal UE. Report of painful response to water to hand in morning. Short Term Goals 1. Patient will be able to oppose left thumb to each digit pad x 2 out of 3 cycles, with no more than 1 error, with increased effort and concentration demonstrating increasing ability to actively incorporate the left upper extremity/hand in day-to-day life. 12/09/19= 50% met 2. 0-30 degrees active left wrist extension. 12/09/19= 0-20 degrees w/ fingers flexed 3. Patient will demonstrate increased ability to actively incorporate L UE in day-to-day life, as evidenced by ability to tolerate left <-> right weight shifting x 10 trials, with hands positioned in frontal plane on horizontal bar. 11/17/19= modified goal 4. Patient will participate in standardized fine motor/ object manipulation standardized assessment given recent gains observed in outpatient setting/as well as in the home as reported by . GOALS MET Actively participated in standardized digit/machine wedger strength testing. Tooth Grinder/Lateral Nichols Pinch. *MET 10/21/19 Opposed L thumb to second digit pad 4 out of 5 trials w/ increased effort/ concentration. *MET 11/17/19 0-60 degrees active left forearm supination. *MET = 0-75 degrees Will average 15.0+ pounds of force with L machine wedger dynamometer II strength testing. *MET 12/09 = 22.0# Detention Goals 1. Patient will be modified independent with execution of UE home exercise program utilizing provided written and visual instructions from therapist with support of family and caregivers. = 25% met 2. Patient will be able to don upper body clothing items (e.g., donning of shirt/jacket ) with modified independence utilizing compensatory strategies on a daily basis based on spouse/patient verbal report, as observed over a 7- day period of time. 3. Patient will be able to doff upper body clothing items with modified independence utilizing compensatory strategies on a daily basis based on spouse/patient verbal report, as observed over a 7- day period of time. - Treatment 4 Descriptor Bimanual coordination. 3 Descriptor Functional object manipulation . Eye-hand coordination ( tennis ball TT activities with proximal stabilization of UE at elbow on w/c armrest). 2 Descriptor Tone management. Weight bearing. Functional WB. Exercises 11 Descriptor ER Side Left Body Position Sitting Sets 1 Repetitions 10 Resistance TB #1 5 Descriptor Hand/finger AROM. Thumb AROM. 3 Descriptor Compensatory motor planning. Object manipulation. Functional motor planning at EOM. Reviewed donning of L shoe seated at EOM. Written and visual instructions provided to support functional independence w/ dressing. Complexity Upgraded 1 Descriptor HEP/POC. Upgraded HEP. Recommended working on eye- hand coordination/speed of motor planning at TT via bimanual and unilateral UE activities utilizing tennis ball; discussed active use of visual compensatory strategies as well to support attention to left side of space/L UE. Discussed sensation options for UE. Discussed activities to support cylindrical object/ functional motor planning. Demonstrated and/or practiced all activities in treatment session. Discussed set-up of environment to support obj manip w/ attention to left side of space/body/L UE. Both patient and his denied questions. Complexity Upgraded - Assessment Patient Response to Treatment Good Rehab Potential Good Assessment of Improvement Improving AROM of UE; improved active ER noted from time of initial evaluation. Improving motor planning of the L UE; upgraded treatment and home exercise program appropriately . Impaired sensation; abnormal painful response to nonnoxious stimuli. L side neglect; cueing to support use of compensatory strategies to attend to L side of space. Continued outpatient OT is recommended w/ focus on functional incorporation of the UE; recommend continuing to address motor planning and advancing activities as tolerated. Recommended activities: UEB; functional obj manipulation/ stabilization; UE motor planning; neuro handling; functional tasks utilizing AE/ compensatory techniques as needed/necessary Home Exercise Program Please refer to treatment section of note for specific details. Reviewed with Patient/Caregiver Goals,Progress Being Made,Home Exercise Program Patient/Caregiver Understanding Excellent - Plan Additional Therapy Recommendations Consult w/ other therapies
--- NOTE | 2019-12-22 15:30 | OT.OP.TRT ---
Visit Care Team Role Provider Type Yesy Cortes MD Attending Provider Physician Primary Care Provider Specialty: Internal Medicine Address: [address] [place] [address], [id number] Email: [email or web address] Occupational Therapy Treatment Note OT Outpatient Treatment Note - Adult Start: 09/29/19 07:33 Freq: Status: Active Protocol: Document 12/22/19 15:35 AMS (Rec: 12/24/19 16:06 AMS [id number]) OT Outpatient Adult Treatment Note Session Time Visit Start Time 12:30 Visit Stop Time 13:15 Total Visit Minutes 45 Visit Information Visit Number 05/28 Plan of Care Dates 11/05/19-01/28/20 Insurance Information Medicare Setting Treatment Setting Outpatient Care Visit Type Note Type Treatment Note General Information General Information 69-yr-old male s/p 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 The pt was brought to [facility] ED where CT head revealed hemorrhage, then transferred via helicopter to [facility] [place]. Pt underwent craniotomy on 04/16. He transferred to [facility] for rehab on 05/05 , where he remained until returning to [facility] 06/26 for surgical replacement of right side skull. He transferred from [facility] to [facility] for acute inpatient rehab from 06/30 - 07/18, returning home with Home Health PT/OT/ST until 09/12. While at [facility], the pt was seen by this MOLECULAR SPECTROSCOPIST x2 and followed the facility's primary MOLECULAR SPECTROSCOPIST Isabel Lyman, who targeted swallow and cognitve- linguistic rehab including left side neglect. Per pt/ spouse report, swallow function was determined rehabilitated at [facility] and re- assessed at [facility] and found to remain WNL. Per [facility] and Home Health MOLECULAR SPECTROSCOPIST reports, the pt has made progress with cognitive- linguistic skills but continues with deficits in areas of visuospatial/left side neglect, oral motor strength secondary to left side weakness, calendar and clock usage, sequencing task steps, and problem solving. The pt reported particular frustration with reading and working with numbers, stating I used to be really good with numbers and enjoyed reading. - Subjective Identification Type Name,Picture Others Present Family Observations accompanied Gerd to treatment session. He has been trying to use the bathroom on his own per . I do use the grab bars per Gerd. Patient/Caregiver Compliance with Home Excellent Exercise Program Comments w/ caregiver/family support - Objective Objective Measurements Please refer to below for progress towards meeting established OT goals. 12/16/19= Impaired sensation of L UE; absent sensation of distal UE (volar/dorsal surfaces of the hand). Absent touch noted in the areas of light, pain, stereognosis. Report of some sense of touch noted w/ vibration elbow --> distal UE. Report of painful response to water to hand in morning. Short Term Goals 1. 0-30 degrees active left wrist extension. 12/09/19= 0-20 degrees w/ fingers flexed 2. Patient will demonstrate increased ability to actively incorporate L UE in day-to-day life, as evidenced by ability to tolerate left <-> right weight shifting x 10 trials, with hands positioned in frontal plane on horizontal bar. 11/17/19= modified goal 3. Patient will participate in standardized fine motor/ object manipulation standardized assessment given recent gains observed in outpatient setting/as well as in the home as reported by . GOALS MET Actively participated in standardized digit/assembler and tester electronics strength testing. Building Guard Deputy Sheriff/Lateral Nichols Pinch. *MET 10/21/19 Opposed L thumb to second digit pad 4 out of 5 trials w/ increased effort/ concentration. *MET 11/17/19 0-60 degrees active left forearm supination. *MET = 0-75 degrees Will average 15.0+ pounds of force with L assembler and tester electronics dynamometer II strength testing. *MET 12/09 = 22.0# Opposed L thumb to each digit pad x 2 out of 2 cycles. *MET 12/24/19 Subassembly Assembler Goals 1. Patient will be modified independent with execution of UE home exercise program utilizing provided written and visual instructions from therapist with support of family and caregivers. = 25% met 2. Patient will be able to don upper body clothing items (e.g., donning of shirt/jacket ) with modified independence utilizing compensatory strategies on a daily basis based on spouse/patient verbal report, as observed over a 7- day period of time. 3. Patient will be able to doff upper body clothing items with modified independence utilizing compensatory strategies on a daily basis based on spouse/patient verbal report, as observed over a 7- day period of time. - Treatment 5 Descriptor Motor planning. Isolation of 2nd digit to support object manipulation. 4 Descriptor Bimanual coordination. 3 Descriptor Functional object manipulation . Eye-hand coordination ( tennis ball TT activities w/ and without proximal stabilization of UE at elbow). Rotation of objects with and without use of compensatory strategies. PNF UE diagonals w / object manipulation. Opposition. Retrieval of objects to the left/retrieval of objects. 2 Descriptor Tone management. Exercises 12 Descriptor Spherical ball grasp/Hand strengthening Side Left Body Position Seated Sets 1 Repetitions 10 Resistance 2.2# spherical ball 5 Descriptor Hand/finger AROM. Thumb AROM. 1 Descriptor HEP/POC. Reviewed eye-hand/ bimanual activities. Discussed approaches to advance object manipulation abilities/ increase motor planning abilities of the digit/hand. Complexity Upgraded - Assessment Patient Response to Treatment Good Rehab Potential Good Assessment of Improvement Improving motor planning of the UE; advancing in-treatment session activities relative to motor planning and object manipulation. Introduced hand/ digit upper extremity strengthening w/ use of spherical ball. Continued outpatient OT is recommended w / focus on functional incorporation of the UE; recommend continuing to address motor planning and advancing activities as tolerated. Recommended activities: UEB; functional obj manipulation/ stabilization; UE motor planning; neuro handling; functional tasks utilizing AE/ compensatory techniques as needed/necessary Home Exercise Program Please refer to treatment section of note for specific details. Reviewed with Patient/Caregiver Goals,Progress Being Made,Home Exercise Program Patient/Caregiver Understanding Excellent - Plan Therapy Recommendations Continue with Current Program, Advance per Rehabilitation Protocol Additional Therapy Recommendations Consult w/ other therapies
--- NOTE | 2019-12-30 15:17 | OT.OP.TRT ---
Visit Care Team Role Provider Type Yesy Cortes MD Attending Provider Physician Primary Care Provider Specialty: Internal Medicine [address]: [address] [place] [address], [id number] Email: [email or web address] Occupational Therapy Treatment Note OT Outpatient Treatment Note - Adult Start: 09/29/19 07:33 Freq: Status: Active Protocol: Document 12/30/19 14:58 AMS (Rec: 12/30/19 15:17 AMS [email or web address]) OT Outpatient Adult Treatment Note Session Time Visit Start Time 12:30 Visit Stop Time 13:20 Total Visit Minutes 50 Visit Information Visit Number 06/28 Plan of Care Dates 11/05/19-01/28/20 Insurance Information Medicare Setting Treatment Setting Outpatient Care Visit Type Note Type Treatment Note General Information General Information 69-yr-old male s/p 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 The pt was brought to [facility] ED where CT head revealed hemorrhage, then transferred via helicopter to [facility]. Pt underwent craniotomy on 04/16. He transferred to [facility] for rehab on 05/05 , where he remained until returning to [facility] 06/26 for surgical replacement of right side skull. He transferred from [facility] to [facility] for acute inpatient rehab from 06/30 - 07/18, returning home with Home Health PT/OT/ST until 09/12. While at [facility], the pt was seen by this BALLOON ARTIST x2 and followed the facility's primary BALLOON ARTIST Isabel Lyman, who targeted swallow and cognitve- linguistic rehab including left side neglect. Per pt/ spouse report, swallow function was determined rehabilitated at [facility] and re- assessed at [facility] and found to remain WNL. Per [facility] and Home Health BALLOON ARTIST reports, the pt has made progress with cognitive- linguistic skills but continues with deficits in areas of visuospatial/left side neglect, oral motor strength secondary to left side weakness, calendar and clock usage, sequencing task steps, and problem solving. The pt reported particular frustration with reading and working with numbers, stating I used to be really good with numbers and enjoyed reading. - Subjective Identification Type Name,Picture Others Present Family Observations accompanied Gerd to treatment session. His dominoes are coming in this afternoon. We are going to be picking them up. He is going to be getting temporary prism glasses per . Patient/Caregiver Compliance with Home Excellent Exercise Program Comments w/ caregiver/family support - Objective Objective Measurements Please refer to below for progress towards meeting established OT goals. 12/16/19= Impaired sensation of L UE; absent sensation of distal UE (volar/dorsal surfaces of the hand). Absent touch noted in the areas of light, pain, stereognosis. Report of some sense of touch noted w/ vibration elbow --> distal UE. Report of painful response to water to hand in morning. Short Term Goals 1. 0-30 degrees active left wrist extension. 12/09/19= 0-20 degrees w/ fingers flexed 2. Patient will demonstrate increased ability to actively incorporate L UE in day-to-day life, as evidenced by ability to tolerate left <-> right weight shifting x 10 trials, with hands positioned in frontal plane on horizontal bar. 11/17/19= modified goal 3. Patient will participate in standardized fine motor/ object manipulation standardized assessment given recent gains observed in outpatient setting/as well as in the home as reported by . GOALS MET Actively participated in standardized digit/clay worker strength testing. Clinic Nurse/Lateral Nichols Pinch. *MET 10/21/19 Opposed L thumb to second digit pad 4 out of 5 trials w/ increased effort/ concentration. *MET 11/17/19 0-60 degrees active left forearm supination. *MET = 0-75 degrees Will average 15.0+ pounds of force with L clay worker dynamometer II strength testing. *MET 12/09 = 22.0# Opposed L thumb to each digit pad x 2 out of 2 cycles. *MET 12/24/19 Freight Breaker Goals 1. Patient will be modified independent with execution of UE home exercise program utilizing provided written and visual instructions from therapist with support of family and caregivers. = 25% met 2. Patient will be able to don upper body clothing items (e.g., donning of shirt/jacket ) with modified independence utilizing compensatory strategies on a daily basis based on spouse/patient verbal report, as observed over a 7- day period of time. 12/30/19= 25% met GOALS MET Per , Gerd is able to doff all UB clothing items w/ mod I on daily basis. *MET 12/30/19 - Treatment 5 Descriptor Motor planning. PNF diagonals UE. 4 Descriptor Bimanual coordination. 3 Descriptor Functional object manipulation . PNF UE diagonals w/ object manipulation. Simple rotation of objects 90 degree ROM. Grading of force w/ object manipulation. Thumb ROM; movement of object radial <-> ulnar sides of hand at fingertips. Separation of 2 sides of hand. 2 Descriptor Tone management. Exercises 12 Descriptor Spherical ball grasp/Hand strengthening 1x10 2.2# spherical ball 1x5 3.3# spherical ball Side Left Body Position Seated Complexity Upgraded 5 Descriptor Hand/finger AROM. Thumb AROM. Opposition. Opposition base each digit. 1 Descriptor HEP/POC. Instructed in activities to support fine motor planning and functional motor planning abilities. Complexity Upgraded - Assessment Patient Response to Treatment Good Rehab Potential Good Assessment of Improvement Improving UE motor planning abilities, including object manipulation abilities. Decreased in-hand motor coordination; decreased speed and efficiency with motor planning of various grasp patterns. Decreased hand/digit strength. Recommend addressing these areas. Decreased functional independence w/ donning clothing items. Recommended focusing on functional independence w/ upper body dressing while seated on stable surface versus attempting in standing. Continued outpatient OT is recommended w/ focus on functional incorporation of the UE; recommend continuing to address motor planning and advancing activities as tolerated. Recommended activities: functional object manipulation Home Exercise Program Please refer to treatment section of note for specific details. Reviewed with Patient/Caregiver Goals,Progress Being Made,Home Exercise Program Patient/Caregiver Understanding Excellent - Plan Therapy Recommendations Continue with Current Program, Advance per Rehabilitation Protocol Additional Therapy Recommendations Consult w/ other therapies
--- NOTE | 2020-01-06 15:28 | OT.OP.TRT ---
Visit Care Team Role Provider Type Yesy Cortes MD Attending Provider Physician Primary Care Provider Specialty: Internal Medicine Address: [address] [place] [address], [id number] Email: [email or web address] Occupational Therapy Treatment Note OT Outpatient Treatment Note - Adult Start: 09/29/19 07:33 Freq: Status: Active Protocol: Document 01/06/20 15:04 AMS (Rec: 01/06/20 15:28 AMS [id number]) OT Outpatient Adult Treatment Note Session Time Visit Start Time 12:30 Visit Stop Time 13:18 Total Visit Minutes 48 Visit Information Visit Number 07/29 Plan of Care Dates 11/05/19-01/28/20 Insurance Information Medicare Setting Treatment Setting Outpatient Care Visit Type Note Type Treatment Note General Information General Information 69-yr-old male s/p 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 The pt was brought to [facility] ED where CT head revealed hemorrhage, then transferred via helicopter to . Pt underwent craniotomy on 04/16. He transferred to [facility] for rehab on 05/05 , where he remained until returning to [facility] 06/26 for surgical replacement of right side skull. He transferred from [facility] to [facility] for acute inpatient rehab from 06/30 - 07/18, returning home with Home Health PT/OT/ST until 09/12. While at [facility], the pt was seen by this MACHINE OPERATOR PACKAGING x2 and followed the facility's primary MACHINE OPERATOR PACKAGING Isabel Lyman, who targeted swallow and cognitve- linguistic rehab including left side neglect. Per pt/ spouse report, swallow function was determined rehabilitated at [facility] and re- assessed at [facility] and found to remain WNL. Per [facility] and Home Health MACHINE OPERATOR PACKAGING reports, the pt has made progress with cognitive- linguistic skills but continues with deficits in areas of visuospatial/left side neglect, oral motor strength secondary to left side weakness, calendar and clock usage, sequencing task steps, and problem solving. The pt reported particular frustration with reading and working with numbers, stating I used to be really good with numbers and enjoyed reading. - Subjective Identification Type Name,Picture Others Present Family Observations accompanied Gerd to treatment session. His glasses are coming tomorrow per April (). Stephanie came yesterday and worked with him per April. Patient/Caregiver Compliance with Home Excellent Exercise Program Comments w/ caregiver/family support - Objective Objective Measurements Please refer to below for progress towards meeting established OT goals. Administered Peter Hand Function Test; please refer to standardized section of note for specific details. Correctly differentiated between L vs R w/ laterality activity 5 out of 10 trials. 12/16/19= Impaired sensation of L UE; absent sensation of distal UE (volar/dorsal surfaces of the hand). Absent touch noted in the areas of light, pain, stereognosis. Report of some sense of touch noted w/ vibration elbow --> distal UE. Report of painful response to water to hand in morning. Short Term Goals 1. 0-30 degrees active left wrist extension. 12/09/19= 0-20 degrees w/ fingers flexed 2. Patient will demonstrate increased ability to actively incorporate L UE in day-to-day life, as evidenced by ability to tolerate left <-> right weight shifting x 10 trials, with hands positioned in frontal plane on horizontal bar. 11/17/19= modified goal 3. Patient will participate in standardized fine motor/ object manipulation standardized assessment given recent gains observed in outpatient setting/as well as in the home as reported by . 01/06/20= Administered Peter Hand Function test; recommend attempting 9-Hole GOALS MET Actively participated in standardized digit/asbestos siding installer strength testing. Roller Setter/Lateral Nichols Pinch. *MET 10/21/19 Opposed L thumb to second digit pad 4 out of 5 trials w/ increased effort/ concentration. *MET 11/17/19 0-60 degrees active left forearm supination. *MET = 0-75 degrees Will average 15.0+ pounds of force with L asbestos siding installer dynamometer II strength testing. *MET 12/09 = 22.0# Opposed L thumb to each digit pad x 2 out of 2 cycles. *MET 12/24/19 Drop Count Associate Goals 1. Patient will be modified independent with execution of UE home exercise program utilizing provided written and visual instructions from therapist with support of family and caregivers. = 25% met 2. Patient will be able to don upper body clothing items (e.g., donning of shirt/jacket ) with modified independence utilizing compensatory strategies on a daily basis based on spouse/patient verbal report, as observed over a 7- day period of time. 01/06/20= 25% met GOALS MET Per , Rod is able to doff all UB clothing items w/ mod I on daily basis. *MET 12/30/19 - Treatment 5 Descriptor Motor planning. 4 Descriptor Bimanual coordination. 3 Descriptor Functional object manipulation . Peter Hand Function Test administered. 2 Descriptor Tone management. Exercises 12 Descriptor Spherical ball grasp/Hand strengthening 2x10 2.2# spherical ball 1x5 4.4# spherical ball Side Left Body Position Seated Complexity Upgraded 5 Descriptor Hand/finger AROM. Thumb AROM. Opposition. Opposition base each digit. 1 Descriptor HEP/POC. Discussed use of mirror to support attention/ motor planning of the L UE given impaired sensation. Demonstrated in treatment session. and patient denied questions. Complexity Upgraded - Assessment Patient Response to Treatment Good Rehab Potential Good Assessment of Improvement Improving speed and efficiency w/ TT eye-hand coordination tasks. Able to administer Peter Hand Function Test; able to execute small objects subtest w/ use of side of table, including managing paperclips! Able to increase resistance w/ spherical weighted ball; this suggests improving hand/digit strength. Decreased attention to left side of space; impaired L UE sensation and decreased awareness of UE in space. (+) response to mirror feedback w/ brief introduction. Decreased consistency w/ correctly differentiating between L and R hands; impaired laterality. Decreased functional independence w/ donning UB clothing items. Continued outpatient OT is recommended w / focus on functional incorporation of the UE; recommend continuing to address motor planning and advancing activities as tolerated. Recommended activities: functional object manipulation Home Exercise Program Please refer to treatment section of note for specific details. Reviewed with Patient/Caregiver Goals,Progress Being Made,Home Exercise Program Patient/Caregiver Understanding Excellent - Plan Therapy Recommendations Continue with Current Program, Advance per Rehabilitation Protocol Additional Therapy Recommendations Consult w/ other therapies
--- NOTE | 2020-01-13 17:32 | OT.OP.REEVAL ---
Visit Care Team Role Provider Type Yesy Cortes MD Attending Provider Physician Primary Care Provider Address: [address] [place] [address], [id number] Email: [email or web address] Outpatient OT Outpatient Adult Evaluation Start: 09/29/19 07:33 Freq: Status: Active Protocol: Document 09/18/19 15:30 AMS (Rec: 09/29/19 08:13 AMS [email or web address]) General Information Session Time Visit Start Time 12:30 Visit Stop Time 13:25 Total Visit Minutes 55 Visit Information Visit Number [id number] Plan of Care Dates 09/18/19-12/11/2019 Insurance Information Medicare Setting Treatment Setting Outpatient Care Visit Type Note Type Initial Evaluation Referral Referring Physician Yesy Cortes MD Reason for Referral CVA Identification Identification Confirmed Yes: Photo ID Identification Confirmed By Medical Information Medical History Patient is a 69 year-old male referred to outpatient OT by PCP, Yesy Cortes MD, 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 Patient was transferred from [facility] to [facility] where craniotomy was performed 04/16/19. Patient completed 7 weeks of rehab at [facility] and then underwent secondary surgery on 06/26/19 to replace skull fragment. Patient was then at acute rehab facility 06/30/19-07/18/19 . He was discharged home with assist from and caregivers. He received Home Health PT/OT/MANAGER TERMINAL until . Therapy Pain Assessment Pain When Pain Assessed Pre-treat Pain Present Pain Present Pain Reported Location Left Foot Intensity 5 Scale Used Numeric (1 - 10) Left Upper Leg Intensity 7 Scale Used Numeric (1 - 10) Lower Back Intensity 7 Scale Used Numeric (1 - 10) Left Arm Intensity 4 Scale Used Numeric (1 - 10) Bilateral Shoulder Intensity 5 Scale Used Numeric (1 - 10) ADLs Overall Ability Comments Impaired; and caregiver assists patient w/ ADLS Dressing Skill Level Impaired Skill Level Impaired Skill Level Impaired Bathing Skill Level Impaired Toileting Skill Level Impaired Observations Observations Observations AROM of L thumb noted. Use of lateral nichols pinch. Unable to oppose left thumb to second digit pad. In-Hand Manipulation [id number] Translation Right Level of Ability WFL Left Level of Ability Unable [id number] Translation Right Level of Ability WFL Left Level of Ability Unable Shift Right Level of Ability WFL Left Level of Ability Unable Simple Rotation Right Level of Ability WFL Left Level of Ability Unable Complex Rotation Right Level of Ability WFL Left Level of Ability Unable Goals Treatment Treatment Education completed re: positioning of UE when at rest ; instructed in positioning in w/c and when in supported sitting. Education focus on positioning of UE away from protective pattern and to the left of the body w/ supported wrist extension as tolerated. Recommended active TT ROM w/ scapular retraction/ protraction in frontal plane given no c/o pain/discomfort w / this exercise. Short Term Goals Short Term Goals 1. Patient will be able to oppose left thumb to second digit pad 4 out of 5 trials with increased effort and concentration demonstrating increasing ability to actively incorporate the left upper extremity/hand in day-to-day life. 2. 0-30 degrees active left wrist extension. 3. 0-60 degrees active left forearm supination. 4. Patient will demonstrate increased ability to actively incorporate L UE in day-to-day life, as evidenced by ability to tolerate left <-> right weight shifting x 10 trials, with hands positioned in frontal plane. 5. Patient will actively participate in standardized digit/cigarette making machine hopper feeder strength testing as tolerated. Detention Goals Canvas Repairer Goals 1. Patient will be modified independent with execution of UE home exercise program utilizing provided written and visual instructions from therapist with support of family and caregivers. 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 PMH : Significant for arthritis; back pain; blood pressure; fibromyalgia; 2 brain surgeries (March 2019); left sided neglect; impaired vision . PLOF: Independent w/ ADLS and IADLS. Evaluation findings: Reported pain/discomfort of L LE, lower back bilateral shoulders, and L UE; left sided neglect; impaired functional independence; patient focus on gait; poor tolerance for distal L UE splint; impaired sensation of L UE; L UE weakness; decreased L UE AROM; decreased object manipulation abilities of the L hand; spasticity into flexor pattern of UE; protective posturing of UE; impaired posture; impaired balance; and poor tolerance for UE weight bearing. Outpatient OT is recommended to address these areas in order to maximize Gerd's success with active participation in meaningful activities with active incorporation of the affected UE. Plan Comment 12 weeks Comment 1-2 times per week Therapeutic Contents Active Range of Motion, Adaptive Equipment Education, Client Education,Cognitive Skills Development,Functional Activities,Home Exercise Program,Joint Protection, Manual Therapy,Education, Neurodevelopment Treatment, Neuromuscular Re-Education, Self-Care,Stretching/ Flexibility Activities, Therapeutic Activities, Therapeutic Exercises, Modalities,Sensory Re- education Modalities As Needed,As Prescribed Types of Modalities Contrast Bath,E-Stim, Functional Stimulation (FES),T .E.N. Stimulation,TENS Placement/Application, Ultrasound Patient Instruction Home Exercise Program,Plan of Care,Questions/Concerns Sensory Assessment Sensory Profile2 Functional Wrist/Hand Scan Hand Side OT Outpatient Muscle Testing Start: 09/29/19 07:33 Freq: Status: Active Protocol: Document 01/13/20 17:07 AMS (Rec: 01/13/20 17:31 AMS [email or web address]) Junior Sales Representative/Hand Strength Junior Sales Representative/Hand Strength Left Junior Sales Representative Dynamometer II 24.0 Lateral Pinch Strengh (lbs) 7.0 Comments New avg for cigarette making machine hopper feeder obtained 01/13= 24.0# Avg for Junior Sales Representative and Lateral Pinch were obtained 10/21/19. 8.0# Left Junior Sales Representative 7.0# Lateral Pinch Right Junior Sales Representative Dynamometer II 44.0 Lateral Pinch Strengh (lbs) 10.0 Comments Avg for Junior Sales Representative and Lateral Pinch were obtained 10/21/19. OT Outpatient Range of Motion Start: 09/29/19 07:33 Freq: Status: Active Protocol: Document 01/13/20 17:07 AMS (Rec: 01/13/20 17:31 AMS [email or web address]) ROM - Shoulder Shoulder Left Forearm ROM Testing Position Sitting Shoulder Flex AROM (degrees) 0-80 Query Text: Shoulder Abd AROM (degrees) 0-70 Shoulder IR AROM (degrees) WFL IR Shoulder ER AROM (degrees) 0-40 Comments New Measurements taken 12/16/19 09/18/20 ER 0-30 Right Active Shoulder ROM WFL Yes Forearm ROM Testing Position Sitting ROM - Elbow/Forearm Elbow/Forearm Measured in Degrees Left ROM Testing Position Sitting Elbow Flex AROM (degrees) 120 Elbow Ext AROM (degrees) WFL Elbow Ext Forearm Pron AROM (degrees) WFL Pronation Forearm Sup AROM (degrees) 0-75 Comments NEW ROM Measurements obtained for forearm supination 12/09/19 09/18/19 ROM Measurements 120 flex WFL elbow ext WFL forearm pronation 0-45 forearm supination Right Elbow/Forearm ROM WFL Yes ROM Testing Position Sitting ROM - Wrist Wrist Range of Motion Measured in Degrees Left ROM Testing Position Sitting Wrist Flex AROM (degrees) 0-70 Wrist Ext AROM Fingers Open (degrees) 0 Wrist Ext AROM Fingers Flexed (degrees) 0-40 Ulnar Deviation AROM (degrees) 0-20 Radial Deviation AROM (degrees) 0-15 Comments 01/13/20 Measurements 09/18/19 ROM Measurements 0-70 wrist flex 0-10 fingers flexed 0-20 UD 0-15 RD Wrist ROM WFL No Right Active ROM Testing Position Sitting Wrist ROM WFL Yes ROM Limitations Wrist ROM Limitations Muscle Tone OT Outpatient Treatment Note - Adult Start: 09/29/19 07:33 Freq: Status: Active Protocol: Document 01/13/20 17:07 AMS (Rec: 01/13/20 17:31 [facility] [email or web address]) OT Outpatient Adult Treatment Note Session Time Visit Start Time 12:30 Visit Stop Time 13:28 Total Visit Minutes 58 Visit Information Visit Number 11/[id number] Plan of Care Dates 01/13/20-04/06/20 Insurance Information Medicare Setting Treatment Setting Outpatient Care Visit Type Note Type Re-Evaluation General Information General Information 69-yr-old male s/p 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 The pt was brought to [facility] ED where CT head revealed hemorrhage, then transferred via helicopter to [facility]. Pt underwent craniotomy on 04/16. He transferred to [facility] for rehab on 05/05 , where he remained until returning to [facility] 06/26 for surgical replacement of right side skull. He transferred from [facility] to [facility] for acute inpatient rehab from 06/30 - 07/18, returning home with Home Health PT/OT/ST until 09/12. - Subjective Identification Type Name,Picture Others Present Family Observations accompanied Gerd to treatment session. These are his temporary glasses. He is supposed to wear them for a hour per April (). Patient/Caregiver Compliance with Home Excellent Exercise Program Comments w/ caregiver/family support - Objective Objective Measurements Please refer to below for progress towards meeting established OT goals. 01/06/20= Correctly differentiated between L vs R w/ laterality activity 5 out of 10 trials. 12/16/19= Impaired sensation of L UE; absent sensation of distal UE (volar/dorsal surfaces of the hand). Absent touch noted in the areas of light, pain, stereognosis. Report of some sense of touch noted w/ vibration elbow --> distal UE. Report of painful response to water to hand in morning. Short Term Goals 1. Patient will present with improved fine motor/object manipulation abilities and joint protection of the left hand, as evidenced by ability to isolate thumb and second digit of the left hand and flip over 10 various sized coins requiring supervision from the therapist. 01/13/20= NEW GOAL 2. Patient will present with improved fine motor and bimanual coordination of the upper extremities, as evidenced by patient's self- report of ability to manage personal zippers of UB clothing items with increased time while seated on stable surface on a daily basis. 01/13= NEW GOAL GOALS MET Actively participated in standardized digit/cigarette making machine hopper feeder strength testing. Junior Sales Representative/Lateral Nichols Pinch. *MET 10/21/19 Opposed L thumb to second digit pad 4 out of 5 trials w/ increased effort/ concentration. *MET 11/17/19 0-60 degrees active left forearm supination. *MET = 0-75 degrees Will average 15.0+ pounds of force with L cigarette making machine hopper feeder dynamometer II strength testing. *MET 12/09= avg 22.0# of force Opposed L thumb to each digit pad x 2 out of 2 cycles. *MET 12/24/19 0-30 degrees active left wrist extension. *MET 01/13/20. 0-40 w/ fingers flexed Actively utilizing the left hand with functional transfers . *MET 01/13/20 Actively participated in additional standardized assessments. *MET 01/13/20 Canvas Repairer Goals 1. Patient will be modified independent with execution of UE home exercise program utilizing provided written and visual instructions from therapist with support of family and caregivers. 01/13/20 = 25% met 2. Patient will be able to don upper body clothing items (e.g., donning of shirt/jacket ) with modified independence utilizing compensatory strategies on a daily basis based on spouse/patient verbal report, as observed over a 7- day period of time. 01/13/20= 25% met GOALS MET Per , Gerd is able to doff all UB clothing items w/ mod I on daily basis. *MET 12/30/19 - Treatment 6 Descriptor Visual feedback to support UE motor planning. 5 Descriptor Motor planning. 4 Descriptor Bimanual coordination. 3 Descriptor Functional object manipulation . 2 Descriptor Tone management. Exercises 12 Descriptor Spherical ball grasp/Hand strengthening 2x10 2.2# spherical ball 1x5 4.4# spherical ball Side Left Body Position Seated Complexity Upgraded 5 Descriptor Hand/finger AROM. Thumb AROM to support in-hand manipulation. 1 Descriptor HEP/POC. Reviewed posture to support overall success w/ functional tasks (dressing); sitting on firm surface with feet positioned shoulder width apart, trunk at midline without lean, and hands coming to midline for certain tasks (e.g., management of zipper). Discussed protection of joints of fingers w/ focus on isolation of thumb and second digit for manipulation of smaller objects. Practiced in treatment session. Both patient and his denied questions. Complexity Upgraded - Assessment Patient Response to Treatment Good Rehab Potential Good Assessment of Overall Progress Improving Assessment of Improvement Gerd has made progress over the last certification period relative to functional incorporation of the L UE, L UE AROM, L hand strength, and motor planning/object manipulation abilities of the hand. This is evidenced by Gerd meeting goals in these areas, as well as patient/and patient's 's report of increased functional incorporation of the L UE/hand in day-to-day life. Despite progress, Gerd continues to present with L sided neglect, impaired vision, impaired L UE motor planning, decreased orientation to midline, impaired L UE sensation, and decreased functional independence. Continued outpatient OT is recommended to maximize patient's success in day-to-day life with active incorporation of the L UE. Recommended activities: functional object manipulation Home Exercise Program Please refer to treatment section of note for specific details. Reviewed with Patient/Caregiver Goals,Progress Being Made,Home Exercise Program Patient/Caregiver Understanding Excellent - Plan Therapy Recommendations Continue with Current Program, Advance per Rehabilitation Protocol Comment 12 weeks Frequency of Treatment Once a Week Therapeutic Contents Active Range of Motion, Adaptive Equipment Education, Client Education,Cognitive Skills Development,Functional Activities,Home Exercise Program,Joint Protection, Manual Therapy,Education, Neurodevelopment Treatment, Neuromuscular Re-Education, Self-Care,Stretching/ Flexibility Activities, Therapeutic Activities, Therapeutic Exercises, Modalities,Sensory Re- education Modalities As Needed,As Prescribed Types of Modalities Biofeedback,E-Stim,Functional Stimulation (FES),T.E.N. Stimulation,TENS Placement/ Application,Ultrasound Occupational Therapy Assessment OT Outpatient Standardized Assessments Start: 09/29/19 07:33 Freq: Status: Active Protocol: Document 01/13/20 17:07 [facility] (Rec: 01/13/20 17:31 AMS [email or web address]) Jebsen-Mely Hand Function Test Date of Test Date of Test 01/06/20 Writing Comments N/A Lifting Small, Common Objects Non-Dominant Hand 16.6 Dominant Hand 6.3 Comments Mean Subtest Scores for Men 60 -69 years of age in sec (+/- SD) Non-dominant hand = 7.48 +/- 2 .20; > 4 SD above the mean Dominant hand = 6.72 +/- 1.39; slightly faster then mean Simulated Feeding Comments N/A Stacking Checkers Non-Dominant Hand Unable Dominant Hand 5.2 Comments Mean Subtest Scores for Men 60 -69 years of age in sec (+/- SD) Non-dominant hand = 5.46 +/- 2 .83 Dominant hand = 4.19 +/- 0.93 ; slightly > 1 SD above mean Lifting Large, Light Objects Non-Dominant Hand 34.3 Dominant Hand 4.4 Comments Mean Subtest Scores for Men 60 -69 years of age in sec (+/- SD) Non-dominant hand = 3.94 +/- 0 .69; > 5+ SD above the man Dominant hand = 3.69 +/- 0.71; 1 SD above mean Lifting Large, Heavy Objects Non-Dominant Hand 39.8 Dominant Hand 5.8 Comments Mean Subtest Scores for Men 60 -69 years of age in sec (+/- SD) Non-dominant hand = 4.03 +/- 0 .78; > 5+ SD above the man Dominant hand = 3.62 +/- 0.73; slightly greater than 2 SD above the mean 9-Hole Peg Hand Test Hand Left Date of Test 01/13/20 Therapist Paula Carvajal, OTR/L Comments Unable Right Comments Did not perform assessment given patient unable to complete w/ L hand
--- NOTE | 2020-01-19 14:58 | OT.OP.TRT ---
Visit Care Team Role Provider Type Yesy Cortes MD Attending Provider Physician Primary Care Provider Specialty: Internal Medicine Address: [address] [place] [address], [id number] Email: [email or web address] Occupational Therapy Treatment Note OT Outpatient Treatment Note - Adult Start: 09/29/19 07:33 Freq: Status: Active Protocol: Document 01/19/20 14:45 AMS (Rec: 01/19/20 14:57 AMS [id number]) OT Outpatient Adult Treatment Note Session Time Visit Start Time 12:35 Visit Stop Time 13:30 Total Visit Minutes 55 Visit Information Visit Number 12/29 Plan of Care Dates 01/13/20-04/06/20 Insurance Information Medicare Setting Treatment Setting Outpatient Care Visit Type Note Type Treatment Note General Information General Information 69-yr-old male s/p 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 The pt was brought to [facility] ED where CT head revealed hemorrhage, then transferred via helicopter to [facility]. Pt underwent craniotomy on 04/16. He transferred to [facility] for rehab on 05/05 , where he remained until returning to [facility] 06/26 for surgical replacement of right side skull. He transferred from [facility] to [facility] for acute inpatient rehab from 06/30 - 07/18, returning home with Home Health PT/OT/ST until 09/12. - Subjective Identification Type Name,Picture Others Present Family Observations accompanied Gerd to treatment session. These are his temporary glasses. He is supposed to wear them for a hour per April (). Patient/Caregiver Compliance with Home Excellent Exercise Program Comments w/ caregiver/family support - Objective Objective Measurements Please refer to below for progress towards meeting established OT goals. 01/06/20= Correctly differentiated between L vs R w/ laterality activity 5 out of 10 trials. 12/16/19= Impaired sensation of L UE; absent sensation of distal UE (volar/dorsal surfaces of the hand). Absent touch noted in the areas of light, pain, stereognosis. Report of some sense of touch noted w/ vibration elbow --> distal UE. Report of painful response to water to hand in morning. Short Term Goals 1. Patient will present with improved fine motor/object manipulation abilities and joint protection of the left hand, as evidenced by ability to isolate thumb and second digit of the left hand and flip over 10 various sized coins requiring supervision from the therapist. 01/19/20= 25 % met; mod v.c. 2. Patient will present with improved fine motor and bimanual coordination of the upper extremities, as evidenced by patient's self- report of ability to manage personal zippers of UB clothing items with increased time while seated on stable surface on a daily basis. = 25% met GOALS MET Actively participated in standardized digit/library science professor strength testing. [employer]/Lateral Nichols Pinch. *MET 10/21/19 Opposed L thumb to second digit pad 4 out of 5 trials w/ increased effort/ concentration. *MET 11/17/19 0-60 degrees active left forearm supination. *MET = 0-75 degrees Will average 15.0+ pounds of force with L library science professor dynamometer II strength testing. *MET 12/09= avg 22.0# of force Opposed L thumb to each digit pad x 2 out of 2 cycles. *MET 12/24/19 0-30 degrees active left wrist extension. *MET 01/13/20. 0-40 w/ fingers flexed Actively utilizing the left hand with functional transfers . *MET 01/13/20 Actively participated in additional standardized assessments. *MET 01/13/20 Shelter Goals 1. Patient will be modified independent with execution of UE home exercise program utilizing provided written and visual instructions from therapist with support of family and caregivers. 01/19/20= 25% met 2. Patient will be able to don upper body clothing items (e.g., donning of shirt/jacket ) with modified independence utilizing compensatory strategies on a daily basis based on spouse/patient verbal report, as observed over a 7- day period of time. 01/19/20= 25 % met GOALS MET Per , Gerd is able to doff all UB clothing items w/ mod I on daily basis. *MET 12/30/19 - Treatment 6 Descriptor Visual feedback to support UE motor planning. 5 Descriptor Motor planning. 4 Descriptor Bimanual coordination. 3 Descriptor Functional object manipulation . 2 Descriptor Tone management. Exercises 12 Descriptor Spherical ball grasp/Hand strengthening 4.4# spherical ball 1x10 Resistent clothespins 2# to 6# of force resistance Complexity Upgraded 5 Descriptor Hand/finger AROM. Thumb AROM to support in-hand manipulation. 1 Descriptor HEP/POC. Reviewed posture to support overall success w/ functional tasks (dressing). Reviewed bimanual coordination /fine motor coordination to support success w/ management of zippers. Reviewed joint protection principles w/ isolation of radial side of hand. Instruction re: separation of 2 sides of hand to support in-hand manipulation. Both patient and his denied questions. Complexity Upgraded - Assessment Patient Response to Treatment Good Rehab Potential Good Assessment of Improvement Decreased ability to manipulate objects in space w/ L hand without proximal stabilization. Decreased bimanual coordination/motor planning noted w/ managing zipper of personal sweatshirt. Impaired sensation of distal L UE. Decreased orientation to midline relative to UEs; increased reliance on R UE w/ bimanual object manipulation. Impaired in-hand manipulation skills. Gerd continues to present with L sided neglect, impaired vision, impaired L UE motor planning, decreased orientation to midline, impaired L UE sensation, and decreased functional independence. Continued outpatient OT is recommended to maximize patient's success in day-to-day life with active incorporation of the L UE. Recommended activities: functional object manipulation Home Exercise Program Please refer to treatment section of note for specific details. Reviewed with Patient/Caregiver Goals,Progress Being Made,Home Exercise Program Patient/Caregiver Understanding Excellent - Plan Therapy Recommendations Continue with Current Program, Advance per Rehabilitation Protocol Additional Therapy Recommendations Consult w/ other therapies
--- NOTE | 2020-02-04 15:17 | OT.OP.TRT ---
Visit Care Team Role Provider Type Yesy Cortes MD Attending Provider Physician Primary Care Provider Specialty: Internal Medicine Address: [address] [place] [address], [id number] Email: [email or web address] Occupational Therapy Treatment Note OT Outpatient Treatment Note - Adult Start: 09/29/19 07:33 Freq: Status: Active Protocol: Document 02/04/20 15:01 AMS (Rec: 02/04/20 15:17 AMS [email or web address]) OT Outpatient Adult Treatment Note Session Time Visit Start Time 13:30 Visit Stop Time 14:20 Total Visit Minutes 50 Visit Information Visit Number 01/26 Plan of Care Dates 01/13/20-04/06/20 Insurance Information Medicare Setting Treatment Setting Outpatient Care Visit Type Note Type Treatment Note General Information General Information 69-yr-old male s/p 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 The pt was brought to [facility] ED where CT head revealed hemorrhage, then transferred via helicopter to [facility]. Pt underwent craniotomy on 04/16. He transferred to [facility] for rehab on 05/05 , where he remained until returning to [facility] 06/26 for surgical replacement of right side skull. He transferred from [facility] to [facility] for acute inpatient rehab from 06/30 - 07/18, returning home with Home Health PT/OT/ST until 09/12. - Subjective Others Present Family Observations , April, accompanied Gerd to treatment session. He is still having a hard time managing his clothing on that side per April relative to LB clothing and use of toilet. Patient/Caregiver Compliance with Home Good Exercise Program Comments w/ caregiver/family support - Objective Objective Measurements Please refer to below for progress towards meeting established OT goals. 01/06/20= Correctly differentiated between L vs R w/ laterality activity 5 out of 10 trials. 12/16/19= Impaired sensation of L UE; absent sensation of distal UE (volar/dorsal surfaces of the hand). Absent touch noted in the areas of light, pain, stereognosis. Report of some sense of touch noted w/ vibration elbow --> distal UE. Report of painful response to water to hand in morning. Short Term Goals 1. Patient will present with improved fine motor/object manipulation abilities and joint protection of the left hand, as evidenced by ability to isolate thumb and second digit of the left hand and flip over 10 various sized coins requiring supervision from the therapist. 02/04/20= 25% met; min v.c. 2. Patient will present with improved fine motor and bimanual coordination of the upper extremities, as evidenced by patient's self- report of ability to manage personal zippers of UB clothing items with increased time while seated on stable surface on a daily basis. 02/03= 25% met GOALS MET Actively participated in standardized digit/lubrication technician strength testing. Cold Roller/Lateral Nichols Pinch. *MET 10/21/19 Opposed L thumb to second digit pad 4 out of 5 trials w/ increased effort/ concentration. *MET 11/17/19 0-60 degrees active left forearm supination. *MET = 0-75 degrees Will average 15.0+ pounds of force with L lubrication technician dynamometer II strength testing. *MET 12/09= avg 22.0# of force Opposed L thumb to each digit pad x 2 out of 2 cycles. *MET 12/24/19 0-30 degrees active left wrist extension. *MET 01/13/20. 0-40 w/ fingers flexed Actively utilizing the left hand with functional transfers . *MET 01/13/20 Actively participated in additional standardized assessments. *MET 01/13/20 Senior Care Goals 1. Patient will be modified independent with execution of UE home exercise program utilizing provided written and visual instructions from therapist with support of family and caregivers. 02/04/20 = 25% met 2. Patient will be able to don upper body clothing items (e.g., donning of shirt/jacket ) with modified independence utilizing compensatory strategies on a daily basis based on spouse/patient verbal report, as observed over a 7- day period of time. 02/04/20= 25% met GOALS MET Per , Gerd is able to doff all UB clothing items w/ mod I on daily basis. *MET 12/30/19 - Treatment 6 Descriptor Visual feedback to support UE motor planning. 5 Descriptor Motor planning. Functional motor planning. Self-care activities. Modification/ compensatory strategies to promote functional independence w/ ADLs. 4 Descriptor Bimanual coordination. 3 Descriptor Functional object manipulation . 2 Descriptor Tone management. Exercises 12 Descriptor Spherical ball grasp/Hand strengthening 4.4# spherical ball 1x10 Resistent clothespins 2# to 6# of force resistance Complexity Upgraded 5 Descriptor Hand/finger AROM. Thumb AROM to support in-hand manipulation. 1 Descriptor HEP/POC. Education provided to April and re: modification/compensatory strategies to support functional independence relative to management of LB dressing; education provided re: dynamic functional grasp patterns to support bimanual coordination w/ functional tasks. Discussed ways to promote/practice functional bimanual/object manipulation ( zippers, clasps, interlocking items). Discussed progress relative to UE motor planning, including ability to grade force and increased success w/ release of objects in frontal plane from L hand. Both April and denied questions. - Assessment Patient Response to Treatment Good Rehab Potential Good Assessment of Overall Progress Improving Assessment of Improvement Improving functional independence; however, cont difficulties reported with toileting clothing management, management of clothing fasteners/objects. Thus, therapist provided education re: strategies to trial in the home to support success. Will need to follow-up at time of next session. Improving motor planning/ability to grade force w/ object release, as evidenced by ability to grasp and release dominoes w/ left hand vertically on table without assistance. Need to work on exertion of force between pads of digits to support success w/ small obj manip. Decreased orientation to midline. Impaired in-hand manipulation skills. Gerd continues to present with L sided neglect, impaired vision , impaired L UE motor planning , decreased orientation to midline, impaired L UE sensation, and decreased functional independence. Continued outpatient OT is recommended to maximize patient's success in day-to- day life with active incorporation of the L UE. Recommended activities: functional object manipulation Home Exercise Program Please refer to treatment section of note for specific details. Reviewed with Patient/Caregiver Goals,Progress Being Made,Home Exercise Program Patient/Caregiver Understanding Excellent - Plan Therapy Recommendations Continue with Current Program, Advance per Rehabilitation Protocol Additional Therapy Recommendations Consult w/ other therapies
--- NOTE | 2020-05-05 15:30 | OT.OP.REEVAL ---
Visit Care Team Role Provider Type Yesy Cortes MD Attending Provider Physician Primary Care Provider Address: [address] [place] [address], [id number] Email: [email or web address] OT Outpatient OT Outpatient Adult Evaluation Start: 09/29/19 07:33 Freq: Status: Active Protocol: Document 09/18/19 15:30 AMS (Rec: 09/29/19 08:13 AMS [id number]) General Information Session Time Visit Start Time 12:30 Visit Stop Time 13:25 Total Visit Minutes 55 Visit Information Visit Number [id number] Plan of Care Dates 09/18/19-12/11/2019 Insurance Information Medicare Setting Treatment Setting Outpatient Care Visit Type Note Type Initial Evaluation Referral Referring Physician Yesy Cortes MD Reason for Referral CVA Identification Identification Confirmed Yes: Photo ID Identification Confirmed By Medical Information Medical History Patient is a 69 year-old male referred to outpatient OT by PCP, Yesy Cortes MD, 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 Patient was transferred from [facility] to [facility] where craniotomy was performed 04/16/19. Patient completed 7 weeks of rehab at [facility] and then underwent secondary surgery on 06/26/19 to replace skull fragment. Patient was then at acute rehab facility 06/30/19-07/18/19 . He was discharged home with assist from and caregivers. He received Home Health PT/OT/[employer] until . Therapy Pain Assessment Pain When Pain Assessed Pre-treat Pain Present Pain Present Pain Reported Location Left Foot Intensity 5 Scale Used Numeric (0 - 10) Left Upper Leg Intensity 7 Scale Used Numeric (0 - 10) Lower Back Intensity 7 Scale Used Numeric (0 - 10) Left Arm Intensity 4 Scale Used Numeric (0 - 10) Bilateral Shoulder Intensity 5 Scale Used Numeric (0 - 10) ADLs Overall Ability Comments Impaired; and caregiver assists patient w/ ADLS Dressing Skill Level Impaired Skill Level Impaired Skill Level Impaired Bathing Skill Level Impaired Toileting Skill Level Impaired Observations Observations Observations AROM of L thumb noted. Use of lateral nichols pinch. Unable to oppose left thumb to second digit pad. In-Hand Manipulation [id number] Translation Right Level of Ability WFL Left Level of Ability Unable [id number] Translation Right Level of Ability WFL Left Level of Ability Unable Shift Right Level of Ability WFL Left Level of Ability Unable Simple Rotation Right Level of Ability WFL Left Level of Ability Unable Complex Rotation Right Level of Ability WFL Left Level of Ability Unable Goals Treatment Treatment Education completed re: positioning of UE when at rest ; instructed in positioning in w/c and when in supported sitting. Education focus on positioning of UE away from protective pattern and to the left of the body w/ supported wrist extension as tolerated. Recommended active TT ROM w/ scapular retraction/ protraction in frontal plane given no c/o pain/discomfort w / this exercise. Short Term Goals Short Term Goals 1. Patient will be able to oppose left thumb to second digit pad 4 out of 5 trials with increased effort and concentration demonstrating increasing ability to actively incorporate the left upper extremity/hand in day-to-day life. 2. 0-30 degrees active left wrist extension. 3. 0-60 degrees active left forearm supination. 4. Patient will demonstrate increased ability to actively incorporate L UE in day-to-day life, as evidenced by ability to tolerate left <-> right weight shifting x 10 trials, with hands positioned in frontal plane. 5. Patient will actively participate in standardized digit/restaurant line server strength testing as tolerated. [facility] Goals Workforce Manager Goals 1. Patient will be modified independent with execution of UE home exercise program utilizing provided written and visual instructions from therapist with support of family and caregivers. 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 PMH : Significant for arthritis; back pain; blood pressure; fibromyalgia; 2 brain surgeries (March 2019); left sided neglect; impaired vision . PLOF: Independent w/ ADLS and IADLS. Evaluation findings: Reported pain/discomfort of L LE, lower back bilateral shoulders, and L UE; left sided neglect; impaired functional independence; patient focus on gait; poor tolerance for distal L UE splint; impaired sensation of L UE; L UE weakness; decreased L UE AROM; decreased object manipulation abilities of the L hand; spasticity into flexor pattern of UE; protective posturing of UE; impaired posture; impaired balance; and poor tolerance for UE weight bearing. Outpatient OT is recommended to address these areas in order to maximize Gerd's success with active participation in meaningful activities with active incorporation of the affected UE. Plan Comment 12 weeks Comment 1-2 times per week Therapeutic Contents Active Range of Motion, Adaptive Equipment Education, Client Education,Cognitive Skills Development,Functional Activities,Home Exercise Program,Joint Protection, Manual Therapy,Education, Neurodevelopment Treatment, Neuromuscular Re-Education, Self-Care,Stretching/ Flexibility Activities, Therapeutic Activities, Therapeutic Exercises, Modalities,Sensory Re- education Modalities As Needed,As Prescribed Types of Modalities Contrast Bath,E-Stim, Functional Stimulation (FES),T .E.N. Stimulation,TENS Placement/Application, Ultrasound Patient Instruction Home Exercise Program,Plan of Care,Questions/Concerns Sensory Assessment Sensory Profile2 Functional Wrist/Hand Scan Hand Side OT Outpatient Muscle Testing Start: 09/29/19 07:33 Freq: Status: Active Protocol: Document 05/05/20 15:30 AMS (Rec: 05/11/20 11:47 AMS [id number]) Gelatin Powder Mixer/Hand Strength Gelatin Powder Mixer/Hand Strength Left Gelatin Powder Mixer Dynamometer II 32.0 Lateral Pinch Strengh (lbs) 7.0 Comments New avg for restaurant line server obtained 05/0501/13/20= 24.0# of force 10/21/19= 8.0# of force L Gelatin Powder Mixer; 7.0# of force L Lateral Pinch Right Gelatin Powder Mixer Dynamometer II 44.0 Lateral Pinch Strengh (lbs) 10.0 Comments Avg for Gelatin Powder Mixer and Lateral Pinch were obtained 10/21/19. OT Outpatient Range of Motion Start: 09/29/19 07:33 Freq: Status: Active Protocol: Document 05/05/20 15:30 AMS (Rec: 05/11/20 11:47 AMS [id number]) ROM - Shoulder Shoulder Left Forearm ROM Testing Position Sitting Shoulder Flex AROM (degrees) 0-100 Query Text: Shoulder Abd AROM (degrees) 0-70 Shoulder IR AROM (degrees) WFL IR Shoulder ER AROM (degrees) 0-40 Comments New Measurements 05/05/20 12/16/19= sh flex 0-80; 0-70 sh abd; WFL IR; 0-40 ER 09/18/20= ER 0-30 Right Active Shoulder ROM WFL Yes Forearm ROM Testing Position Sitting ROM - Elbow/Forearm Elbow/Forearm Measured in Degrees Left ROM Testing Position Sitting Elbow Flex AROM (degrees) 130 Elbow Ext AROM (degrees) WFL Elbow Ext Forearm Pron AROM (degrees) WFL Pronation Forearm Sup AROM (degrees) 0-80 Comments New ROM obtained 05/05/20 12/09/19= 0-75 supination 09/18/19= 0-120 degrees act elbow flex WFL elbow ext WFL forearm pronation 0-45 degrees active forearm supination Right Elbow/Forearm ROM WFL Yes ROM Testing Position Sitting ROM - Wrist Wrist Range of Motion Measured in Degrees Left ROM Testing Position Sitting Wrist Flex AROM (degrees) 0-70 Wrist Ext AROM Fingers Open (degrees) 0 Wrist Ext AROM Fingers Flexed (degrees) 0-40 Ulnar Deviation AROM (degrees) 0-20 Radial Deviation AROM (degrees) 0-15 Comments New ROM Measurements 05/05/20 01/13/20 ROM 0-70 wrist flex 0-40 wrist ext w/ fingers flexed 0-20 UD 0-15 RD 09/18/19 ROM 0-70 wrist flex 0-10 wrist ext fingers flexed 0-20 UD 0-15 RD Wrist ROM WFL No Right Active ROM Testing Position Sitting Wrist ROM WFL Yes ROM Limitations Wrist ROM Limitations Muscle Tone OT Outpatient Treatment Note - Adult Start: 09/29/19 07:33 Freq: Status: Active Protocol: Document 05/05/20 15:30 AMS (Rec: 05/11/20 11:47 AMS [id number]) OT Outpatient Adult Treatment Note Session Time Visit Start Time 10:30 Visit Stop Time 11:20 Total Visit Minutes 50 Visit Information Visit Number 11/28 Plan of Care Dates 05/05/20-07/28/20 Insurance Information Medicare Setting Treatment Setting Outpatient Care Visit Type Note Type Progress Note General Information General Information 69-yr-old male s/p 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 The pt was brought to [facility] ED where CT head revealed hemorrhage, then transferred via helicopter to [facility]. Pt underwent craniotomy on 04/16. He transferred to [facility] for rehab on 05/05 , where he remained until returning to [facility] 06/26 for surgical replacement of right side skull. He transferred from [facility] to [facility] for acute inpatient rehab from 06/30 - 07/18, returning home with Home Health PT/OT/ST until 09/12. - Subjective Identification Type Name Identification Reconciled With Medical Record Others Present Family Observations , April, accompanied Gerd to treatment session; all individuals present wore masks and sanitized hands pre- and post treatment. I can now do this per Gerd demonstrating doffing and donning personal glasses w/ the L hand. Patient/Caregiver Compliance with Home Good Exercise Program Comments w/ caregiver/family support - Objective Objective Measurements Please refer to below for progress towards meeting established OT goals. Functional abilities as of = min phys assist w/ donning UB/LB dressing ( however, is mod I w/ socks/ shoes); mod I w/ toileting hygiene, application of deodarant, and managing personal glasses. 01/06/20= Correctly differentiated between L vs R w/ laterality activity 5 out of 10 trials. 12/16/19= Impaired sensation of L UE; absent sensation of distal UE (volar/dorsal surfaces of the hand). Absent touch noted in the areas of light, pain, stereognosis. Report of some sense of touch noted w/ vibration elbow --> distal UE. Report of painful response to water to hand in morning. Short Term Goals 1. Patient will present with improved fine motor/object manipulation abilities and joint protection of the left hand, as evidenced by ability to isolate thumb and second digit of the left hand and flip over 10 various sized coins requiring supervision from the therapist. 02/04/20= 25% met; min v.c. 2. Patient will present with improved fine motor and bimanual coordination of the upper extremities, as evidenced by patient's self- report of ability to manage personal zippers of UB clothing items with increased time while seated on stable surface on a daily basis. 05/05= 25% met GOALS MET Actively participated in standardized digit/restaurant line server strength testing. Gelatin Powder Mixer/Lateral Nichols Pinch. *MET 10/21/19 Opposed L thumb to second digit pad 4 out of 5 trials w/ increased effort/ concentration. *MET 11/17/19 0-60 degrees active left forearm supination. *MET = 0-75 degrees Will average 15.0+ pounds of force with L restaurant line server dynamometer II strength testing. *MET 12/09= avg 22.0# of force Opposed L thumb to each digit pad x 2 out of 2 cycles. *MET 12/24/19 0-30 degrees active left wrist extension. *MET 01/13/20. 0-40 w/ fingers flexed Actively utilizing the left hand with functional transfers . *MET 01/13/20 Actively participated in additional standardized assessments. *MET 01/13/20 Mcfp Goals 1. Patient will be modified independent with execution of UE home exercise program utilizing provided written and visual instructions from therapist with support of family and caregivers. 02/04/20 = 25% met 2. Patient will be able to don upper body clothing items (e.g., donning of shirt/jacket ) with modified independence utilizing compensatory strategies on a daily basis based on spouse/patient verbal report, as observed over a 7- day period of time. 05/05/20= 25% met; min phys assistance required GOALS MET Per , Rod is able to doff all UB clothing items w/ mod I on daily basis. *MET 12/30/19 - Treatment 6 Descriptor Visual feedback to support UE motor planning. 5 Descriptor Motor planning. Functional motor planning. Self-care activities. Modification/ compensatory strategies to promote functional independence w/ ADLs. 4 Descriptor Bimanual coordination. 3 Descriptor Functional object manipulation . 2 Descriptor Tone management. Exercises 13 Descriptor ROM/Gelatin Powder Mixer Strength 5 Descriptor Hand/finger AROM. Thumb AROM to support in-hand manipulation. 1 Descriptor HEP/POC. Recommended continued outpatient OT with agreed frequency of 1 x per week given (+) carry-over of recommendations in the home. Discussed activities to work on bimanual coordination to support success w/ holding book given expressed desire to have increased success with this area. Demonstrated techniques to support UB dressing/LB dressing; recommend reviewing at time of next session. Both Themla and denied questions. - Assessment Patient Response to Treatment Good Rehab Potential Good Assessment of Overall Progress Improving Assessment of Improvement Gap in outpatient OT occurred secondary to COVID-19. Despite gap, Gerd did demonstrate improvements relative to functional abilities, ROM of L UE, L hand strength, and incorporation of the affected hand/UE in day-to-day life. This is evidenced by Gerd meeting goals established in these areas, as well as based on patient/spousal report. Gerd is now mod I w/ doffing/ donning socks/shoes, managing personal glasses, applying deodarant and managing personal toileting hygiene! Gerd continues to present with L sided neglect, impaired vision, impaired L UE motor planning, decreased orientation to midline, impaired L UE sensation, and decreased functional independence. Thus, continued outpatient OT is recommended to maximize patient's success in day-to-day life with active incorporation of the L UE. Recommended activities: functional object manipulation ; functional ADLS Home Exercise Program Please refer to treatment section of note for specific details. Reviewed with Patient/Caregiver Goals,Progress Being Made,Home Exercise Program Patient/Caregiver Understanding Excellent - Plan Therapy Recommendations Continue with Current Program, Advance per Rehabilitation Protocol Additional Therapy Recommendations Consult w/ other therapies Comment 12 weeks Frequency of Treatment Once a Week Comment Re-eval frequency Therapeutic Contents Active Range of Motion, Adaptive Equipment Education, Client Education,Cognitive Skills Development,Functional Activities,Home Exercise Program,Joint Protection, Manual Therapy,Education, Neurodevelopment Treatment, Neuromuscular Re-Education, Self-Care,Stretching/ Flexibility Activities, Therapeutic Activities, Therapeutic Exercises, Modalities,Sensory Re- education Modalities As Needed,As Prescribed Types of Modalities Contrast Bath,E-Stim, Functional Stimulation (FES),T .E.N. Stimulation,TENS Placement/Application, Ultrasound Additional Types of Modalities Use of heat
--- NOTE | 2020-05-13 15:41 | OT.OP.TRT ---
Visit Care Team Role Provider Type Yesy Cortes MD Attending Provider Physician Primary Care Provider Specialty: Internal Medicine [address]: [address] [place] [address], [address] Email: [email or web address] Occupational Therapy Treatment Note OT Outpatient Treatment Note - Adult Start: 09/29/19 07:33 Freq: Status: Active Protocol: Document 05/13/20 15:12 AMS (Rec: 05/13/20 15:25 AMS [id number]) OT Outpatient Adult Treatment Note Session Time Visit Start Time 12:35 Visit Stop Time 13:25 Total Visit Minutes 50 Visit Information Visit Number 11/28 Plan of Care Dates 05/05/20-07/28/20 Insurance Information Medicare Setting Treatment Setting Outpatient Care Visit Type Note Type Treatment Note General Information General Information 69-yr-old male s/p 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 The pt was brought to [facility] ED where CT head revealed hemorrhage, then transferred via helicopter to [facility]. Pt underwent craniotomy on 04/16. He transferred to [facility] for rehab on 05/05 , where he remained until returning to [facility] 06/26 for surgical replacement of right side skull. He transferred from [facility] to [facility] for acute inpatient rehab from 06/30 - 07/18, returning home with Home Health PT/OT/ST until 09/12. - Subjective Identification Type Name Identification Reconciled With Medical Record Others Present Family Observations , April, accompanied Gerd to treatment session; all individuals present wore masks and sanitized hands pre- and post treatment. I was wondering if you could test his sensation. Felipe did it yesterday per April. Patient/Caregiver Compliance with Home Good Exercise Program Comments w/ caregiver/family support - Objective Objective Measurements Please refer to below for progress towards meeting established OT goals. Impaired sensation of L UE; indicated awareness of sensation to touch of the anterior and posterior surfaces of the L forearm. Functional abilities as of = min phys assist w/ donning UB/LB dressing ( however, is mod I w/ socks/ shoes); mod I w/ toileting hygiene, application of deodarant, and managing personal glasses. 01/06/20= Correctly differentiated between L vs R w/ laterality activity 5 out of 10 trials. 12/16/19= Impaired sensation of L UE; absent sensation of distal UE (volar/dorsal surfaces of the hand). Absent touch noted in the areas of light, pain, stereognosis. Report of some sense of touch noted w/ vibration elbow --> distal UE. Report of painful response to water to hand in morning. Short Term Goals 1. Patient will present with improved fine motor/object manipulation abilities and joint protection of the left hand, as evidenced by ability to isolate thumb and second digit of the left hand and flip over 10 various sized coins requiring supervision from the therapist. 05/13/20= 50% met; min v.c. 2. Patient will present with improved fine motor and bimanual coordination of the upper extremities, as evidenced by patient's self- report of ability to manage personal zippers of UB clothing items with increased time while seated on stable surface on a daily basis. 05/05= 25% met GOALS MET Actively participated in standardized digit/stna strength testing. Roller Skater/Lateral Nichols Pinch. *MET 10/21/19 Opposed L thumb to second digit pad 4 out of 5 trials w/ increased effort/ concentration. *MET 11/17/19 0-60 degrees active left forearm supination. *MET = 0-75 degrees Will average 15.0+ pounds of force with L stna dynamometer II strength testing. *MET 12/09= avg 22.0# of force Opposed L thumb to each digit pad x 2 out of 2 cycles. *MET 12/24/19 0-30 degrees active left wrist extension. *MET 01/13/20. 0-40 w/ fingers flexed Actively utilizing the left hand with functional transfers . *MET 01/13/20 Actively participated in additional standardized assessments. *MET 01/13/20 Snf Goals 1. Patient will be modified independent with execution of UE home exercise program utilizing provided written and visual instructions from therapist with support of family and caregivers. 05/13/20 = 25% met 2. Patient will be able to don upper body clothing items (e.g., donning of shirt/jacket ) with modified independence utilizing compensatory strategies on a daily basis based on spouse/patient verbal report, as observed over a 7- day period of time. 05/13/20= 25% met; instructed in technique GOALS MET Per , Gerd is able to doff all UB clothing items w/ mod I on daily basis. *MET 12/30/19 - Treatment 5 Descriptor Motor planning. Functional motor planning. Self-care activities. Long-sleeved shirt donned sitting x 2; zip-up sweatshirt donned sitting x 1 (zipping of sweatshirt prior to attempt). Clothing management w/ toileting. 4 Descriptor Bimanual coordination. 3 Descriptor Functional object manipulation . Exercises 13 Descriptor ROM/Roller Skater Strength 1 Descriptor HEP/POC. Instructed in donning of long-sleeved shirt and zip -up sweatshirt; Gerd was able to verbally repeat back steps to therapist. Instructed in clothing management (pinching pants underneath shirt). Discussed use of R hand as compensatory strategy for sensation feedback of the L side of the body. Both Thelma and Gerd denied questions. - Assessment Patient Response to Treatment Good Rehab Potential Good Assessment of Improvement Therapist simplified verbal cues for UB dressing; utilized similar technique between long-sleeve shirt and zip-up sweatshirt to support success. Able to repeat steps back verbally including nichols components (pulling sleeve above elbows); difficulty was observed w/ first step; but Gerd was able to overcome and continued w/ good effort. d/t impaired sensation of the L side utilizing compensatory techniques to support pulling up of LB dressing/clothing management with R hand/UE. Gerd continues to present with L sided neglect, impaired vision, impaired L UE motor planning, decreased orientation to midline, impaired L UE sensation, and decreased functional independence. Thus, continued outpatient OT is recommended to maximize patient's success in day-to-day life with active incorporation of the L UE. Recommended activities: UB dressing; LB dressing clothing management Home Exercise Program Please refer to treatment section of note for specific details. Reviewed with Patient/Caregiver Goals,Progress Being Made,Home Exercise Program Patient/Caregiver Understanding Excellent - Plan Therapy Recommendations Continue with Current Program, Advance per Rehabilitation Protocol Additional Therapy Recommendations Consult w/ other therapies
--- NOTE | 2020-05-18 15:30 | OT.OP.TRT ---
Visit Care Team Role Provider Type Yesy Cortes MD Attending Provider Physician Primary Care Provider Specialty: Internal Medicine [address]: [address] [place] [address], [address] Email: [email or web address] Occupational Therapy Treatment Note OT Outpatient Treatment Note - Adult Start: 09/29/19 07:33 Freq: Status: Active Protocol: Document 05/18/20 15:30 AMS (Rec: 05/20/20 09:06 AMS [id number]) OT Outpatient Adult Treatment Note Session Time Visit Start Time 10:30 Visit Stop Time 11:20 Total Visit Minutes 50 Visit Information Visit Number 01/26 Plan of Care Dates 05/05/20-07/28/20 Insurance Information Medicare Setting Treatment Setting Outpatient Care Visit Type Note Type Treatment Note General Information General Information 69-yr-old male s/p 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 The pt was brought to [facility] ED where CT head revealed hemorrhage, then transferred via helicopter to [facility]. Pt underwent craniotomy on 04/16. He transferred to [facility] for rehab on 05/05 , where he remained until returning to [facility] 06/26 for surgical replacement of right side skull. He transferred from [facility] to [facility] for acute inpatient rehab from 06/30 - 07/18, returning home with Home Health PT/OT/ST until 09/12. - Subjective Identification Type Name Identification Reconciled With Medical Record Others Present Family Observations , April, accompanied Gerd to treatment session; all individuals present wore masks and sanitized hands pre- and post treatment. I brought in his shirts. He wanted to do it again today per April. Patient/Caregiver Compliance with Home Excellent Exercise Program Comments w/ caregiver/family support - Objective Objective Measurements Please refer to below for progress towards meeting established OT goals. Impaired sensation of L UE; indicated awareness of sensation to touch of the anterior and posterior surfaces of the L forearm. Functional abilities as of = min phys assist w/ donning UB/LB dressing ( however, is mod I w/ socks/ shoes); mod I w/ toileting hygiene, application of deodarant, and managing personal glasses. 01/06/20= Correctly differentiated between L vs R w/ laterality activity 5 out of 10 trials. 12/16/19= Impaired sensation of L UE; absent sensation of distal UE (volar/dorsal surfaces of the hand). Absent touch noted in the areas of light, pain, stereognosis. Report of some sense of touch noted w/ vibration elbow --> distal UE. Report of painful response to water to hand in morning. Short Term Goals 1. Patient will present with improved fine motor/object manipulation abilities and joint protection of the left hand, as evidenced by ability to isolate thumb and second digit of the left hand and flip over 10 various sized coins requiring supervision from the therapist. 05/18/20= 50% met; min v.c. 2. Patient will present with improved fine motor and bimanual coordination of the upper extremities, as evidenced by patient's self- report of ability to manage personal zippers of UB clothing items with increased time while seated on stable surface on a daily basis. 05/18= 25% met GOALS MET Actively participated in standardized digit/seo team lead strength testing. Retail Specialist/Lateral Nichols Pinch. *MET 10/21/19 Opposed L thumb to second digit pad 4 out of 5 trials w/ increased effort/ concentration. *MET 11/17/19 0-60 degrees active left forearm supination. *MET = 0-75 degrees Will average 15.0+ pounds of force with L seo team lead dynamometer II strength testing. *MET 12/09= avg 22.0# of force Opposed L thumb to each digit pad x 2 out of 2 cycles. *MET 12/24/19 0-30 degrees active left wrist extension. *MET 01/13/20. 0-40 w/ fingers flexed Actively utilizing the left hand with functional transfers . *MET 01/13/20 Actively participated in additional standardized assessments. *MET 01/13/20 Bioinformatics Engineer Goals 1. Patient will be modified independent with execution of UE home exercise program utilizing provided written and visual instructions from therapist with support of family and caregivers. 05/13/20 = 25% met 2. Patient will be able to don upper body clothing items (e.g., donning of shirt/jacket ) with modified independence utilizing compensatory strategies on a daily basis based on spouse/patient verbal report, as observed over a 7- day period of time. 05/18/20= 25% met; reviewed technique at EOM 3. Patient will present with improved bimanual coordination of the upper extremities, as evidenced by patient and patient's spouse's self-report of ability to manage personal reading materials, utilizing compensatory strategies/AE if/ as needed, with increased time while seated on stable surface on a daily basis with modified independence. GOALS MET Per , Rod is able to doff all UB clothing items w/ mod I on daily basis. *MET 12/30/19 - Treatment 5 Descriptor Motor planning. Functional motor planning. Self-care activities. Short-sleeved shirt donned sitting x 1; zip- up sweatshirt donned sitting x 1 (zipping of sweatshirt prior to attempt). Instruction on orientation of shirt to support success. 4 Descriptor Bimanual coordination. 3 Descriptor Functional object manipulation . PNF UE diagonals. Resistant clothespins in front of body at or slightly below 90 degrees sh flex. Exercises 1 Descriptor HEP/POC. Reviewed UE dressing with inclusion of orientation of shirt pre-UB dressing ( positioning of shirt on lap); required max phys assistance for positioning of shirt on leg to support success w/ this aspect of motor planing. Joint protection education provided re: avoidance of hyperextension of DIP joints with finger walks on incline surface; recommended as finger /UE motor planning. Instruction in manipulation of objects away from body to support functional strengthening and motor planning. Instructed in bimanual UE coordination with use of cane (focus on rhythmic /smooth motor planning). Both April and denied questions . - Assessment Patient Response to Treatment Good Rehab Potential Good Assessment of Improvement Initiated orientation component with UB dressing; max phys assist required on this treatment date. Cueing to double check shirt above elbows. Cueing to support bilateral pulling down of shirt. Fatigue observed w/ object manipulation away from body; proximal compensatory strategies to support success. Decreased joint protection and continued need to work on radial side digit isolation. Gerd continues to present with L sided neglect, impaired vision, impaired L UE motor planning, decreased orientation to midline, impaired L UE sensation, and decreased functional independence. Thus, continued outpatient OT is recommended to maximize patient's success in day-to-day life with active incorporation of the L UE. Recommended activities: UB dressing; LB dressing clothing management Home Exercise Program Please refer to treatment section of note for specific details. Reviewed with Patient/Caregiver Goals,Progress Being Made,Home Exercise Program Patient/Caregiver Understanding Excellent - Plan Therapy Recommendations Continue with Current Program, Advance per Rehabilitation Protocol Additional Therapy Recommendations Consult w/ other therapies
--- NOTE | 2020-05-26 15:30 | OT.OP.TRT ---
Visit Care Team Role Provider Type Yesy Cortes MD Attending Provider Physician Primary Care Provider Specialty: Internal Medicine Address: [address] [place] [address], [id number] Email: [email or web address]ational Therapy Treatment Note OT Outpatient Treatment Note - Adult Start: 09/29/19 07:33 Freq: Status: Active Protocol: Document 05/26/20 15:30 AMS (Rec: 05/27/20 08:26 AMS [id number]) OT Outpatient Adult Treatment Note Session Time Visit Start Time 14:30 Visit Stop Time 15:17 Total Visit Minutes 47 Visit Information Visit Number 02/26 Plan of Care Dates 05/05/20-07/28/20 Insurance Information Medicare Setting Treatment Setting Outpatient Care Visit Type Note Type Treatment Note General Information General Information 69-yr-old male s/p 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 The pt was brought to [facility] ED where CT head revealed hemorrhage, then transferred via helicopter to [facility] ([place], [place]). Pt underwent craniotomy on 04/16. He transferred to [facility] for rehab on 05/05 , where he remained until returning to [facility] 06/26 for surgical replacement of right side skull. He transferred from [facility] to [facility] for acute inpatient rehab from 06/30 - 07/18, returning home with Home Health PT/OT/ST until 09/12. - Subjective Identification Type Name Identification Reconciled With Medical Record Others Present Family Observations , April, accompanied Gerd to treatment session; all individuals present wore masks and sanitized hands pre- and post treatment. He is still having trouble with that side of his pants per April re: LB clothing management. Patient/Caregiver Compliance with Home Excellent Exercise Program Comments w/ caregiver/family support - Objective Objective Measurements Forward head posture; R anterior sh pain/discomfort. Tightness of front chest/pec. Please refer to below for progress towards meeting established OT goals. Functional abilities as of = min phys assist w/ donning UB/LB dressing ( however, is mod I w/ socks/ shoes); mod I w/ toileting hygiene, application of deodarant, and managing personal glasses. 01/06/20= Correctly differentiated between L vs R w/ laterality activity 5 out of 10 trials. 12/16/19= Impaired sensation of L UE; absent sensation of distal UE (volar/dorsal surfaces of the hand). Absent touch noted in the areas of light, pain, stereognosis. Report of some sense of touch noted w/ vibration elbow --> distal UE. Report of painful response to water to hand in morning. Short Term Goals 1. Patient will present with improved fine motor/object manipulation abilities and joint protection of the left hand, as evidenced by ability to isolate thumb and second digit of the left hand and flip over 10 various sized coins requiring supervision from the therapist. 05/18/20= 50% met; min v.c. 2. Patient will present with improved fine motor and bimanual coordination of the upper extremities, as evidenced by patient's self- report of ability to manage personal zippers of UB clothing items with increased time while seated on stable surface on a daily basis. 05/18= 25% met GOALS MET Actively participated in standardized digit/director packaging strength testing. Medical Receptionist/Lateral Nichols Pinch. *MET 10/21/19 Opposed L thumb to second digit pad 4 out of 5 trials w/ increased effort/ concentration. *MET 11/17/19 0-60 degrees active left forearm supination. *MET = 0-75 degrees Will average 15.0+ pounds of force with L director packaging dynamometer II strength testing. *MET 12/09= avg 22.0# of force Opposed L thumb to each digit pad x 2 out of 2 cycles. *MET 12/24/19 0-30 degrees active left wrist extension. *MET 01/13/20. 0-40 w/ fingers flexed Actively utilizing the left hand with functional transfers . *MET 01/13/20 Actively participated in additional standardized assessments. *MET 01/13/20 Alf Goals 1. Patient will be modified independent with execution of UE home exercise program utilizing provided written and visual instructions from therapist with support of family and caregivers. 05/13/20 = 25% met 2. Patient will be able to don upper body clothing items (e.g., donning of shirt/jacket ) with modified independence utilizing compensatory strategies on a daily basis based on spouse/patient verbal report, as observed over a 7- day period of time. 05/18/20= 25% met; reviewed technique at EOM 3. Patient will present with improved bimanual coordination of the upper extremities, as evidenced by patient and patient's spouse's self-report of ability to manage personal reading materials, utilizing compensatory strategies/AE if/ as needed, with increased time while seated on stable surface on a daily basis with modified independence. GOALS MET Per , Rod is able to doff all UB clothing items w/ mod I on daily basis. *MET 12/30/19 - Treatment 5 Descriptor Motor planning. Functional motor planning. Following of border of shirt seated. 1 x 10. 4 Descriptor Bimanual coordination. 3 Descriptor Functional object manipulation . PNF UE diagonals. Resistant clothespins in front of body. x 49 reps w/ 1 to 8# of force resistance. Exercises 5 Descriptor Motor planning. Sh circles with cane. Compensatory strategies at elbow. 4 Descriptor Functional ROM L sh. Seated. Top of head/Lower Back. 1 x 10 . 3 Descriptor ROM L sh. Seated. Scapular pinches. 1 x 10. Scaption w/ 45 degrees. 1 x 10 . Hor sh abd. 2 x 10. Sh ext. 1 x 10. Post delt. 1 x 10. 2 Descriptor ROM of L sh. Supine. Supine pec/ant sh stretch. 30 sec x 2. ER/Hands behind head. 20 sec x 1. 1 Descriptor HEP/POC. Discussed importance of positioning of L UE given impaired L vision/L sided neglect. Instructed in ROM stretch supine w/ inclusion of heat to maintain available functional range of motion of shoulder. Both Thelma and denied questions. - Assessment Patient Response to Treatment Good Rehab Potential Good Assessment of Improvement Impaired posture; forward head position and rounding of bilateral shoulders. Education provided in re: importance of positioning and stretching the L UE away from body given L sided neglect/impaired vision given typical tonal pattern of the UE. Pec tightness/pain and discomfort of anterior sh. Compensatory motor planning; elbow flex/ext noted w/ sh circles. Increased success w/ use of cane. Decreased kinesthetic and proprioceptive awareness L UE. Gerd continues to present with L sided neglect, impaired vision, impaired L UE motor planning, decreased orientation to midline, impaired L UE sensation, and decreased functional independence. Thus, continued outpatient OT is recommended to maximize patient's success in day-to-day life with active incorporation of the L UE. Recommended activities: UB dressing; LB dressing clothing management; passive/manual ROM of L UE; continuing to work on posture to support UE pain-free ROM Home Exercise Program Please refer to treatment section of note for specific details. Reviewed with Patient/Caregiver Goals,Progress Being Made,Home Exercise Program Patient/Caregiver Understanding Excellent - Plan Therapy Recommendations Continue with Current Program, Advance per Rehabilitation Protocol Additional Therapy Recommendations Consult w/ other therapies
--- NOTE | 2020-05-31 16:05 | OT.OP.TRT ---
Visit Care Team Role Provider Type Yesy Cortes MD Attending Provider Physician Primary Care Provider Specialty: Internal Medicine Address: [address] [place] [address], [address] Email: [email or web address] Treatment Note OT Outpatient Treatment Note - Adult Start: 09/29/19 07:33 Freq: Status: Active Protocol: Document 05/31/20 15:47 AMS (Rec: 05/31/20 16:04 AMS [id number]) OT Outpatient Adult Treatment Note Session Time Visit Start Time 14:30 Visit Stop Time 15:20 Total Visit Minutes 50 Visit Information Visit Number 03/28 Plan of Care Dates 05/05/20-07/28/20 Insurance Information Medicare Setting Treatment Setting Outpatient Care Visit Type Note Type Treatment Note General Information General Information 69-yr-old male s/p 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 The pt was brought to [facility] ED where CT head revealed hemorrhage, then transferred via helicopter to [facility]. Pt underwent craniotomy on 04/16. He transferred to [facility] for rehab on 05/05 , where he remained until returning to [facility] 06/26 for surgical replacement of right side skull. He transferred from [facility] to [facility] for acute inpatient rehab from 06/30 - 07/18, returning home with Home Health PT/OT/ST until 09/12. - Subjective Identification Type Name Identification Reconciled With Medical Record Others Present Family Observations , April, accompanied Gerd to 50% of treatment session. You might want to make sure that he is doing that stretch right. He was having a hard time on the bed this morning per April. Patient/Caregiver Compliance with Home Excellent Exercise Program Comments w/ caregiver/family support - Objective Objective Measurements Object transfer R hand thumb/ 3rd digit. Forward head posture; R anterior sh pain/ discomfort. Tightness of front chest/pec. Please refer to below for progress towards meeting established OT goals. Functional abilities as of = min phys assist w/ donning UB/LB dressing ( however, is mod I w/ socks/ shoes); mod I w/ toileting hygiene, application of deodarant, and managing personal glasses. 01/06/20= Correctly differentiated between L vs R w/ laterality activity 5 out of 10 trials. 12/16/19= Impaired sensation of L UE; absent sensation of distal UE (volar/dorsal surfaces of the hand). Absent touch noted in the areas of light, pain, stereognosis. Report of some sense of touch noted w/ vibration elbow --> distal UE. Report of painful response to water to hand in morning. Short Term Goals 1. Patient will present with improved fine motor/object manipulation abilities and joint protection of the left hand, as evidenced by ability to flip over 10 various sized coins requiring supervision from the therapist. 05/18/20= 50% met; min v.c. 2. Patient will present with improved fine motor and bimanual coordination of the upper extremities, as evidenced by patient's self- report of ability to manage personal zippers of UB clothing items with increased time while seated on stable surface on a daily basis. 05/18= 25% met GOALS MET Actively participated in standardized digit/end maker strength testing. Combat Control/Lateral Nichols Pinch. *MET 10/21/19 Opposed L thumb to second digit pad 4 out of 5 trials w/ increased effort/ concentration. *MET 11/17/19 0-60 degrees active left forearm supination. *MET = 0-75 degrees Will average 15.0+ pounds of force with L end maker dynamometer II strength testing. *MET 12/09= avg 22.0# of force Opposed L thumb to each digit pad x 2 out of 2 cycles. *MET 12/24/19 0-30 degrees active left wrist extension. *MET 01/13/20. 0-40 w/ fingers flexed Actively utilizing the left hand with functional transfers . *MET 01/13/20 Actively participated in additional standardized assessments. *MET 01/13/20 Section Cutter Goals 1. Patient will be modified independent with execution of UE home exercise program utilizing provided written and visual instructions from therapist with support of family and caregivers. 05/31/20 = 25% met 2. Patient will be able to don upper body clothing items (e.g., donning of shirt/jacket ) with modified independence utilizing compensatory strategies on a daily basis based on spouse/patient verbal report, as observed over a 7- day period of time. 05/18/20= 25% met; reviewed technique at EOM 3. Patient will present with improved bimanual coordination of the upper extremities, as evidenced by patient and patient's spouse's self-report of ability to manage personal reading materials, utilizing compensatory strategies/AE if/ as needed, with increased time while seated on stable surface on a daily basis with modified independence. GOALS MET Per , Rod is able to doff all UB clothing items w/ mod I on daily basis. *MET 12/30/19 - Treatment 5 Descriptor Motor planning. Functional motor planning. Following of border of shirt seated. 1 x 10. 4 Descriptor Bimanual coordination. 3 Descriptor Functional object manipulation . Vertical slanted surface. Pegboard. Exercises 6 Descriptor L UE Strengthening. Sh flex. 1# DB. 2 x 10. Sh height. Sh abd. 1# DB. 2 x 10. Sh height. Min phys A. Sh hor. abd. 1# DB. 2 x 10. Sh height. Elbow ext. Above head -> ceiling. 3# DB. 2 x 10. Facilitation by therapist. Chest press. 3# DB. 2 x 10. 5 Descriptor Motor planning. Supine. Proprioceptive input provided to assist w/ motor planning. 4 Descriptor Functional ROM L sh. Seated. Top of head/Lower Back. 1 x 10 . 3 Descriptor ROM L sh. Seated. Scapular pinches. 1 x 10. Scaption w/ 45 degrees. 1 x 10 . Hor sh abd. 2 x 10. Sh ext. 1 x 10. Post delt. 1 x 10. 2 Descriptor ROM of L UE. Supine pec/ant sh stretch. 30 sec x 1. MCP joint encouragement of extension. Hand press. Modifications used and trialed on this date to facilitate. 1 Descriptor HEP/POC. Discussed potential for carry-over of strengthening exercises into the home; recommended supine strengthening to discourage compensatory patterns. Recommended exercises be executed w/ support from family/caregivers d/t impaired sensation/vision/and risk for injury w/ dropping of a heavier weight. Rod and Thelma verbalized understanding/ agreement. Recommended working on facilitation of extension at MP joints; recommended consideration of use of heat to support joint mobility in pain-free ROM. Discussed safety risk w/ impaired sensation. Discussed potential use of warm water as an additional alternative. Both Thelma and Rod denied questions . - Assessment Patient Response to Treatment Good Rehab Potential Good Assessment of Improvement Advanced strengthening exercises on this treatment date; modified goal relative to object manipulation based on observations w/ R hand object manip. Increased tolerance for gentle weight bearing through palm of left hand compared to time of initial evaluation; positive response to heat. Impaired posture. Gerd continues to present with L sided neglect, impaired vision, impaired L UE motor planning, decreased orientation to midline, impaired L UE sensation, and decreased functional independence. Thus, continued outpatient OT is recommended to maximize patient's success in day-to-day life with active incorporation of the L UE. Recommended activities: functional motor planning; UE motor planning; UE strengthening; Home Exercise Program Please refer to treatment section of note for specific details. Reviewed with Patient/Caregiver Goals,Progress Being Made,Home Exercise Program Patient/Caregiver Understanding Excellent - Plan Therapy Recommendations Continue with Current Program, Advance per Rehabilitation Protocol Additional Therapy Recommendations Consult w/ other therapies
--- NOTE | 2020-06-09 15:16 | OT.OP.TRT ---
Visit Care Team Role Provider Type Yesy Cortes MD Attending Provider Physician Primary Care Provider Specialty: Internal Medicine [address]: [address] [place] [address], [id number] Email: [email or web address] Occupational Therapy Treatment Note OT Outpatient Treatment Note - Adult Start: 09/29/19 07:33 Freq: Status: Active Protocol: Document 06/09/20 14:57 AMS (Rec: 06/09/20 15:16 AMS [id number]) OT Outpatient Adult Treatment Note Session Time Visit Start Time 13:30 Visit Stop Time 14:25 Total Visit Minutes 55 Visit Information Visit Number 04/28 Plan of Care Dates 05/05/20-07/28/20 Insurance Information Medicare Setting Treatment Setting Outpatient Care Visit Type Note Type Treatment Note General Information General Information 69-yr-old male s/p 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 The pt was brought to [facility] ED where CT head revealed hemorrhage, then transferred via helicopter to [facility]. Pt underwent craniotomy on 04/16. He transferred to [facility] for rehab on 05/05 , where he remained until returning to [facility] 06/26 for surgical replacement of right side skull. He transferred from [facility] to [facility] for acute inpatient rehab from 06/30 - 07/18, returning home with Home Health PT/OT/ST until 09/12. - Subjective Identification Type Name Identification Reconciled With Medical Record Others Present Family Observations , April, accompanied Gerd to treatment session. He still has a hard time with those things per April relative to UB dressing and LB clothing management post toileting. Patient/Caregiver Compliance with Home Excellent Exercise Program Comments w/ caregiver/family support - Objective Objective Measurements Object transfer R hand thumb/ 3rd digit. Please refer to below for progress towards meeting established OT goals. Functional abilities as of = min phys assist w/ donning UB/LB dressing ( however, is mod I w/ socks/ shoes); mod I w/ toileting hygiene, application of deodarant, and managing personal glasses. 01/06/20= Correctly differentiated between L vs R w/ laterality activity 5 out of 10 trials. 12/16/19= Impaired sensation of L UE; absent sensation of distal UE (volar/dorsal surfaces of the hand). Absent touch noted in the areas of light, pain, stereognosis. Report of some sense of touch noted w/ vibration elbow --> distal UE. Report of painful response to water to hand in morning. Short Term Goals 1. Patient will present with improved fine motor/object manipulation abilities and joint protection of the left hand, as evidenced by ability to flip over 10 various sized coins requiring supervision from the therapist. 05/18/20= 50% met; min v.c. 2. Patient will present with improved fine motor and bimanual coordination of the upper extremities, as evidenced by patient's self- report of ability to manage personal zippers of UB clothing items with increased time while seated on stable surface on a daily basis. 05/18= 25% met 3. 0-80 degrees active R sh abd. GOALS MET Actively participated in standardized digit/cigar making machine supervisor strength testing. Rn Maternal Child/Lateral Nichols Pinch. *MET 10/21/19 Opposed L thumb to second digit pad 4 out of 5 trials w/ increased effort/ concentration. *MET 11/17/19 0-60 degrees active left forearm supination. *MET = 0-75 degrees Will average 15.0+ pounds of force with L cigar making machine supervisor dynamometer II strength testing. *MET 12/09= avg 22.0# of force Opposed L thumb to each digit pad x 2 out of 2 cycles. *MET 12/24/19 0-30 degrees active left wrist extension. *MET 01/13/20. 0-40 w/ fingers flexed Actively utilizing the left hand with functional transfers . *MET 01/13/20 Actively participated in additional standardized assessments. *MET 01/13/20 Zigzag Machine Operator Goals 1. Patient will be modified independent with execution of UE home exercise program utilizing provided written and visual instructions from therapist with support of family and caregivers. 06/09/20 = 25% met 2. Patient will be able to don upper body clothing items (e.g., donning of shirt/jacket ) with modified independence utilizing compensatory strategies on a daily basis based on spouse/patient verbal report, as observed over a 7- day period of time. 05/18/20= 25% met; reviewed technique at EOM 3. Patient will present with improved bimanual coordination of the upper extremities, as evidenced by patient and patient's spouse's self-report of ability to manage personal reading materials, utilizing compensatory strategies/AE if/ as needed, with increased time while seated on stable surface on a daily basis with modified independence. GOALS MET Per , Rod is able to doff all UB clothing items w/ mod I on daily basis. *MET 12/30/19 - Treatment 4 Descriptor Bimanual coordination. 3 Descriptor Functional object manipulation . Visual fixation supine <-> crossing midline. Exercises 6 Descriptor L UE Strengthening. Sh flex. 1# DB. 2 x 10. Sh ht. Seated. Sh abd. 1# DB. 2 x 10. Sh ht. Seated. Sh hor. abd. 1# DB. 2 x 10. Sh ht. Supine. Elbow ext. Above head -> ceiling. 3# DB. 2 x 10. Facilitation by therapist. Supine. Posterior deltoid. R sidelying . 1# DB. 2 x 10. Visual cues to support motor planning. N/A 06/09/20 = Chest press. 3# DB. 2 x 10. 5 Descriptor Motor planning. 3 Descriptor ROM L sh. Seated. Scapular pinches. 1 x 10. Scaption w/ 45 degrees. 1 x 10 . Hor sh abd. 2 x 10. Sh ext. 1 x 10. Post delt. 1 x 10. 2 Descriptor ROM of L UE. Supine pec/ant sh stretch. 20 sec x 1. Supine. UB/LB dissociation. 10 sec x 1. Posterior sh girdle. Cross body stretch seated. 20 sec x 1. MCP joint extension. DIP joint flexion; use of objects to support execution. 1 Descriptor HEP/POC. Discussed focus of OT treatment on supporting Rod' s functional abilities as previously identified; recommended use of small spherical object in palm of L hand to encourage flexion of DIP joints (decreased positive response noted towards other therapeutic approaches). Rod and Thelma verbalized understanding/agreement. - Assessment Patient Response to Treatment Good Rehab Potential Good Assessment of Improvement Increased focus on visual fixation w/ object manipulation/UE strengthening exercises to the L of the body . Decreased active flexion of DIPJ of digits 2-5 of the L hand; identified object for palm of hand to encourage flexion of DIPJ that did not exacerbate pain symptoms/was well tolerated. Introduced additional anterior/posterior sh girdle stretches and strengthening posterior sh/ delt. Gerd continues to present with L sided neglect, impaired vision, impaired L UE motor planning, decreased orientation to midline, impaired L UE sensation, and decreased functional independence. Thus, continued outpatient OT is recommended to maximize patient's success in day-to-day life with active incorporation of the L UE. Recommended activities: functional motor planning; UE motor planning; UE strengthening; Home Exercise Program Please refer to treatment section of note for specific details. Reviewed with Patient/Caregiver Goals,Progress Being Made,Home Exercise Program Patient/Caregiver Understanding Excellent - Plan Therapy Recommendations Continue with Current Program, Advance per Rehabilitation Protocol Additional Therapy Recommendations Consult w/ other therapies
--- NOTE | 2020-06-16 15:11 | OT.OP.TRT ---
Visit Care Team Role Provider Type Yesy Cortes MD Attending Provider Physician Primary Care Provider Specialty: Internal Medicine Address: [address] [place] [address], [address] Email: [email or web address] Occupational Therapy Treatment Note OT Outpatient Treatment Note - Adult Start: 09/29/19 07:33 Freq: Status: Active Protocol: Document 06/16/20 13:26 AMS (Rec: 06/16/20 14:01 AMS [id number]) OT Outpatient Adult Treatment Note Session Time Visit Start Time 13:30 Visit Stop Time 14:25 Total Visit Minutes 55 Visit Information Visit Number 05/28 Plan of Care Dates 05/05/20-07/28/20 Insurance Information Medicare Setting Treatment Setting Outpatient Care Visit Type Note Type Treatment Note General Information General Information 69-yr-old male s/p 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 The pt was brought to [facility] ED where CT head revealed hemorrhage, then transferred via helicopter to [facility]. Pt underwent craniotomy on 04/16. He transferred to [facility] for rehab on 05/05 , where he remained until returning to [facility] 06/26 for surgical replacement of right side skull. He transferred from [facility] to [facility] for acute inpatient rehab from 06/30 - 07/18, returning home with Home Health PT/OT/ST until 09/12. - Subjective Identification Type Name Identification Reconciled With Medical Record Others Present Family Observations , April, accompanied Gerd to treatment session. He was able to dressing all by himself on 2 separate days. He is still having a hard time with his clothing after using the toilet per April. I am still having a hard time holding a book and turning the pages. I have to use a table and something to hold it still per Gerd. Patient/Caregiver Compliance with Home Excellent Exercise Program Comments w/ caregiver/family support - Objective Objective Measurements Object transfer R hand thumb/ 3rd digit. Please refer to below for progress towards meeting established OT goals. Functional abilities as of = min phys assist w/ donning UB/LB dressing ( however, is mod I w/ socks/ shoes); mod I w/ toileting hygiene, application of deodarant, and managing personal glasses. 01/06/20= Correctly differentiated between L vs R w/ laterality activity 5 out of 10 trials. 12/16/19= Impaired sensation of L UE; absent sensation of distal UE (volar/dorsal surfaces of the hand). Absent touch noted in the areas of light, pain, stereognosis. Report of some sense of touch noted w/ vibration elbow --> distal UE. Report of painful response to water to hand in morning. Short Term Goals 1. Patient will present with improved fine motor coordination of the affected upper extremity; this will be evidenced by Gerd's ability to flip five, 3 x 5 index cards (simulated page turning subtest of the Peter Hand Function Test), within 2 SD below the mean (within 11.88 seconds) compared to his same- aged male peers requiring encouragement from therapist. 06/16/20= GOAL UPGRADED 2. Patient will present with improved fine motor coordination of the affected upper extremity; this will be evidenced by Gerd's ability to stack for wood checkers requiring minimal verbal and visual cues from therapist. = GOAL UPGRADED 3. Patient will present with improved fine motor and bimanual coordination of the upper extremities, as evidenced by patient's self- report of ability to manage personal zippers of UB clothing items with increased time while seated on stable surface on a daily basis. 05/18= 25% met 4. 0-80 degrees active R sh abd. GOALS MET Actively participated in standardized digit/educational technician strength testing. Offc Spec/Lateral Nichols Pinch. *MET 10/21/19 Opposed L thumb to second digit pad 4 out of 5 trials w/ increased effort/ concentration. *MET 11/17/19 0-60 degrees active left forearm supination. *MET = 0-75 degrees Will average 15.0+ pounds of force with L educational technician dynamometer II strength testing. *MET 12/09= avg 22.0# of force Opposed L thumb to each digit pad x 2 out of 2 cycles. *MET 12/24/19 0-30 degrees active left wrist extension. *MET 01/13/20. 0-40 w/ fingers flexed Actively utilizing the left hand with functional transfers . *MET 01/13/20 Actively participated in additional standardized assessments. *MET 01/13/20 Flipped over 10 various sized coins w/ S without use of edge of TT. *MET 06/16/20 Detention Goals 1. Patient will be modified independent with execution of UE home exercise program utilizing provided written and visual instructions from therapist with support of family and caregivers. 06/09/20 = 25% met 2. Patient will be able to don upper body clothing items (e.g., donning of shirt/jacket ) with modified independence utilizing compensatory strategies on a daily basis based on spouse/patient verbal report, as observed over a 7- day period of time. 05/18/20= 25% met; reviewed technique at EOM 3. Patient will present with improved bimanual coordination of the upper extremities, as evidenced by patient and patient's spouse's self-report of ability to manage personal reading materials, utilizing compensatory strategies/AE if/ as needed, with increased time while seated on stable surface on a daily basis with modified independence. GOALS MET Per , Gerd is able to doff all UB clothing items w/ mod I on daily basis. *MET 12/30/19 - Treatment 4 Descriptor Bimanual coordination. Neuro re-education. 3 Descriptor Functional object manipulation . Coins. Cards. Single. Flip from card stack to new card stack. Visual fixation seated <-> crossing midline. Exercises 8 Descriptor Wrist strengthening. Wrist ext. 2# DB 1 x 10. 3# DB 1 x 10. 7 Descriptor Elbow strengthening. Elbow ext. Supine. 4# DB. 2 x 10. Facilitation by therapist. 6 Descriptor L UE Strengthening. Sh flex. 2# DB. 2 x 10. Sh ht. Seated. Sh abd. 2# DB. 2 x 10. Sh ht. Seated. Sh hor. abd. 2# DB. 2 x 10. Sh ht. Supine. Post deltoid. R sidelying. 2# DB. 2 x 10. Visual cues to support motor planning. 5 Descriptor Motor planning. 2 Descriptor ROM of L UE. Supine pec/ant sh stretch. 20 sec x 1. Supine. UB/LB dissociation. 10 sec x 1. MCP joint extension. DIP joint flexion; use of objects to support execution. 1 Descriptor HEP/POC. Discussed recent increased focus on upper extremity strengthening; discussed potential for alternating between strengthening exercises and neuro/motor planning exercises to support functional success and utilize treatment time effectively. Trialed this approach with alt of seated strengthening and TT/neuro re- ed exercises. Gerd was able to tolerate and denied fatigue. - Assessment Patient Response to Treatment Good Rehab Potential Good Assessment of Improvement Improving fine motor abilities of affected hand; this is evidenced by Gerd meeting short term goal in this area and therapist's ability to advance fine motor/object manipulation goals. Improving L UE strength; this is evidenced by therapist's ability to increase resistance w/ UE strengthening exercises . Trialed alt strengthening exercises w/ fine motor and neuro based tasks; Gerd responded positively. Midline shift noted w/ neuro based tasks; decreased awareness of L UE in space. Practiced functional adjustment of LB band in standing for replication of functional task . Recommend repeating. Gerd continues to present with L sided neglect, impaired vision, impaired L UE motor planning, decreased orientation to midline, impaired L UE sensation, and decreased functional independence. Thus, continued outpatient OT is recommended to maximize patient's success in day-to-day life with active incorporation of the L UE. Recommended activities: functional motor planning; UE motor planning; UE strengthening; Home Exercise Program Please refer to treatment section of note for specific details. Reviewed with Patient/Caregiver Goals,Progress Being Made,Home Exercise Program Patient/Caregiver Understanding Excellent - Plan Therapy Recommendations Continue with Current Program, Advance per Rehabilitation Protocol Additional Therapy Recommendations Provided purple slip; schedule thru July
--- NOTE | 2020-06-22 14:30 | OT.OP.TRT ---
Visit Care Team Role Provider Type Yesy Cortes MD Attending Provider Physician Primary Care Provider Specialty: Internal Medicine [address]: [address] [place] [address], [id number] Email: [email or web address] Therapy Treatment Note OT Outpatient Treatment Note - Adult Start: 09/29/19 07:33 Freq: Status: Active Protocol: Document 06/22/20 13:32 AMS (Rec: 06/22/20 14:20 AMS [id number]) OT Outpatient Adult Treatment Note Session Time Visit Start Time 13:30 Visit Stop Time 14:15 Total Visit Minutes 45 Visit Information Visit Number 06/28 Plan of Care Dates 05/05/20-07/28/20 Insurance Information Medicare Setting Treatment Setting Outpatient Care Visit Type Note Type Treatment Note General Information General Information 69-yr-old male s/p 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 The pt was brought to [facility] ED where CT head revealed hemorrhage, then transferred via helicopter to [facility]. Pt underwent craniotomy on 04/16. He transferred to [facility] for rehab on 05/05 , where he remained until returning to [facility] 06/26 for surgical replacement of right side skull. He transferred from [facility] to [facility] for acute inpatient rehab from 06/30 - 07/18, returning home with Home Health PT/OT/ST until 09/12. - Subjective Identification Type Name Identification Reconciled With Medical Record Observations I got my shirt on by myself this morning. Thelma placed the shirt down for me per Gerd. Patient/Caregiver Compliance with Home Excellent Exercise Program Comments w/ caregiver/family support - Objective Objective Measurements Object transfer R hand thumb/ 3rd digit. Please refer to below for progress towards meeting established OT goals. Functional abilities as of = min phys assist w/ donning UB/LB dressing ( however, is mod I w/ socks/ shoes); mod I w/ toileting hygiene, application of deodarant, and managing personal glasses. 01/06/20= Correctly differentiated between L vs R w/ laterality activity 5 out of 10 trials. 12/16/19= Impaired sensation of L UE; absent sensation of distal UE (volar/dorsal surfaces of the hand). Absent touch noted in the areas of light, pain, stereognosis. Report of some sense of touch noted w/ vibration elbow --> distal UE. Report of painful response to water to hand in morning. Short Term Goals 1. Patient will present with improved fine motor coordination of the affected upper extremity; this will be evidenced by Gerd's ability to flip five, 3 x 5 index cards (simulated page turning subtest of the Peter Hand Function Test), within 2 SD below the mean (within 11.88 seconds) compared to his same- aged male peers requiring encouragement from therapist. 06/16/20= GOAL UPGRADED 2. Patient will present with improved fine motor coordination of the affected upper extremity; this will be evidenced by Gerd's ability to stack for wood checkers requiring minimal verbal and visual cues from therapist. = GOAL UPGRADED 3. Patient will present with improved fine motor and bimanual coordination of the upper extremities, as evidenced by patient's self- report of ability to manage personal zippers of UB clothing items with increased time while seated on stable surface on a daily basis. 05/18= 25% met 4. 0-80 degrees active R sh abd. GOALS MET Actively participated in standardized digit/soft tile setter strength testing. Mercury Cracking Tester/Lateral Nichols Pinch. *MET 10/21/19 Opposed L thumb to second digit pad 4 out of 5 trials w/ increased effort/ concentration. *MET 11/17/19 0-60 degrees active left forearm supination. *MET = 0-75 degrees Will average 15.0+ pounds of force with L soft tile setter dynamometer II strength testing. *MET 12/09= avg 22.0# of force Opposed L thumb to each digit pad x 2 out of 2 cycles. *MET 12/24/19 0-30 degrees active left wrist extension. *MET 01/13/20. 0-40 w/ fingers flexed Actively utilizing the left hand with functional transfers . *MET 01/13/20 Actively participated in additional standardized assessments. *MET 01/13/20 Flipped over 10 various sized coins w/ S without use of edge of TT. *MET 06/16/20 Senior Living Goals 1. Patient will be modified independent with execution of UE home exercise program utilizing provided written and visual instructions from therapist with support of family and caregivers. 06/09/20 = 25% met 2. Patient will be able to don upper body clothing items (e.g., donning of shirt/jacket ) with modified independence utilizing compensatory strategies on a daily basis based on spouse/patient verbal report, as observed over a 7- day period of time. 05/18/20= 25% met; reviewed technique at EOM 3. Patient will present with improved bimanual coordination of the upper extremities, as evidenced by patient and patient's spouse's self-report of ability to manage personal reading materials, utilizing compensatory strategies/AE if/ as needed, with increased time while seated on stable surface on a daily basis with modified independence. GOALS MET Per , Rod is able to doff all UB clothing items w/ mod I on daily basis. *MET 12/30/19 - Treatment 4 Descriptor Bimanual coordination. Neuro re-education. 3 Descriptor Functional object manipulation . Visual fixation seated <-> crossing midline. In-hand manipulation skills. Rotation from finger tips. Single object placed in hand w / focus on rotation (emma/ block). N/A 06/22/20 Coins. Cards. Single. Flip from card stack to new card stack. Exercises 8 Descriptor Wrist strengthening. Wrist ext. 2# DB 1 x 10. 3# DB 1 x 10. 7 Descriptor Elbow strengthening. Elbow ext. Supine. 4# DB. 2 x 10. Facilitation by therapist. 6 Descriptor L UE Strengthening. Sh flex. 2# DB. 2 x 10. Sh ht. Seated. Sh abd. 2# DB. 2 x 10. Sh ht. Seated. Sh hor. abd. 2# DB. 2 x 10. Sh ht. Supine. Post deltoid. R sidelying. 2# DB. 2 x 10. Visual cues to support motor planning. 2 Descriptor ROM of L UE. Supine pec/ant sh stretch. 20 sec x 1. MCP joint extension. DIP joint flexion; use of objects to support execution. 1 Descriptor HEP/POC. Recommended that Thelma supports with orientation of shirt at this time; progress to Gerd orientating shirt as able. Recommended that Rod works in object rotation w/ emma given that the couple already has this item in the home for therapeutic purposes. Thelma was not present at time of session given that she was receiving outpatient PT herself. Recommend reviewing treatment and OT recommendations if needed at time of next session. - Assessment Patient Response to Treatment Good Assessment of Improvement Increased success w/ support from w/ orientation of shirt w/ set-up. Progressed to rotation of objects w/ manipulation tasks. Improving L UE strength; this is evidenced by therapist's ability to increase resistance w/ UE strengthening exercises . Trialed alt strengthening exercises w/ fine motor and neuro based tasks; Gerd responded positively. Midline shift noted w/ neuro based tasks; decreased awareness of L UE in space. Gerd continues to present with L sided neglect, impaired vision, impaired L UE motor planning, decreased orientation to midline, impaired L UE sensation, and decreased functional independence. Thus, continued outpatient OT is recommended to maximize patient's success in day-to-day life with active incorporation of the L UE. Recommended activities: functional motor planning; UE motor planning; UE strengthening; Home Exercise Program Please refer to treatment section of note for specific details. Reviewed with Patient/Caregiver Goals,Progress Being Made,Home Exercise Program Patient/Caregiver Understanding Excellent - Plan Therapy Recommendations Continue with Current Program, Advance per Rehabilitation Protocol
--- NOTE | 2020-06-28 16:04 | OT.OP.TRT ---
Visit Care Team Role Provider Type Yesy Cortes MD Attending Provider Physician Primary Care Provider Specialty: Internal Medicine [address]: [address] [place] [address], [id number] Email: [email or web address] Occupational Therapy Treatment Note OT Outpatient Treatment Note - Adult Start: 09/29/19 07:33 Freq: Status: Active Protocol: Document 06/28/20 13:21 AMS (Rec: 06/28/20 14:00 AMS [id number]) OT Outpatient Adult Treatment Note Session Time Visit Start Time 13:30 Visit Stop Time 14:18 Total Visit Minutes 48 Visit Information Visit Number 07/29 Plan of Care Dates 05/05/20-07/28/20 Insurance Information Medicare Setting Treatment Setting Outpatient Care Visit Type Note Type Treatment Note General Information General Information 69-yr-old male s/p 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 The pt was brought to [facility] ED where CT head revealed hemorrhage, then transferred via helicopter to [facility]. Pt underwent craniotomy on 04/16. He transferred to [facility] for rehab on 05/05 , where he remained until returning to [facility] 06/26 for surgical replacement of right side skull. He transferred from [facility] to [facility] for acute inpatient rehab from 06/30 - 07/18, returning home with Home Health PT/OT/ST until 09/12. - Subjective Identification Type Name Identification Reconciled With Medical Record Observations He called me in so I could see what he was doing with the emma per April. Patient/Caregiver Compliance with Home Excellent Exercise Program Comments w/ caregiver/family support - Objective Objective Measurements Object transfer R hand thumb/ 3rd digit. Please refer to below for progress towards meeting established OT goals. Functional abilities as of = min phys assist w/ donning UB/LB dressing ( however, is mod I w/ socks/ shoes); mod I w/ toileting hygiene, application of deodarant, and managing personal glasses. 01/06/20= Correctly differentiated between L vs R w/ laterality activity 5 out of 10 trials. 12/16/19= Impaired sensation of L UE; absent sensation of distal UE (volar/dorsal surfaces of the hand). Absent touch noted in the areas of light, pain, stereognosis. Report of some sense of touch noted w/ vibration elbow --> distal UE. Report of painful response to water to hand in morning. Short Term Goals 1. Patient will present with improved fine motor coordination of the affected upper extremity; this will be evidenced by Gerd's ability to flip five, 3 x 5 index cards (simulated page turning subtest of the Peter Hand Function Test), within 2 SD below the mean (within 11.88 seconds) compared to his same- aged male peers requiring encouragement from therapist. 06/16/20= GOAL UPGRADED 2. Patient will present with improved fine motor coordination of the affected upper extremity; this will be evidenced by Gerd's ability to stack 4 wood checkers requiring minimal verbal and visual cues from therapist. = GOAL UPGRADED 3. Patient will present with improved fine motor and bimanual coordination of the upper extremities, as evidenced by patient's self- report of ability to manage personal zippers of UB clothing items with increased time while seated on stable surface on a daily basis. 05/18= 25% met 4. 0-80 degrees active R sh abd. GOALS MET Actively participated in standardized digit/toter strength testing. Land Acquisition Specialist/Lateral Nichols Pinch. *MET 10/21/19 Opposed L thumb to second digit pad 4 out of 5 trials w/ increased effort/ concentration. *MET 11/17/19 0-60 degrees active left forearm supination. *MET = 0-75 degrees Will average 15.0+ pounds of force with L toter dynamometer II strength testing. *MET 12/09= avg 22.0# of force Opposed L thumb to each digit pad x 2 out of 2 cycles. *MET 12/24/19 0-30 degrees active left wrist extension. *MET 01/13/20. 0-40 w/ fingers flexed Actively utilizing the left hand with functional transfers . *MET 01/13/20 Actively participated in additional standardized assessments. *MET 01/13/20 Flipped over 10 various sized coins w/ S without use of edge of TT. *MET 06/16/20 Shelter Goals 1. Patient will be modified independent with execution of UE home exercise program utilizing provided written and visual instructions from therapist with support of family and caregivers. 06/28/20 = 25% met 2. Patient will be able to don upper body clothing items (e.g., donning of shirt/jacket ) with modified independence utilizing compensatory strategies on a daily basis based on spouse/patient verbal report, as observed over a 7- day period of time. 05/18/20= 25% met; reviewed technique at EOM 3. Patient will present with improved bimanual coordination of the upper extremities, as evidenced by patient and patient's spouse's self-report of ability to manage personal reading materials, utilizing compensatory strategies/AE if/ as needed, with increased time while seated on stable surface on a daily basis with modified independence. GOALS MET Per , Rod is able to doff all UB clothing items w/ mod I on daily basis. *MET 12/30/19 - Treatment 4 Descriptor Bimanual coordination. Neuro re-education. Cup activity. Away from base of support. 3 Descriptor Functional object manipulation . Visual fixation seated <-> crossing midline. In-hand manipulation. Washers. Wide width marker. 2 diff colored disks. Tool manipulation. Basic level . N/A 06/22/20 Coins. Cards. Single. Flip from card stack to new card stack. Exercises 6 Descriptor L UE Strengthening. Sh flex. 3# DB. 2 x 10. Sh ht. Seated. Sh abd. 3# DB. 2 x 10. Sh ht. Seated. Sh hor. abd. 3# DB. 2 x 10. Sh ht. Supine. Hor Abd/Add. Seated. 1# DB. 2 x 5. N/A 06/28/20 Post deltoid. R sidelying. 2# DB. 2 x 10. Visual cues to support motor planning. 2 Descriptor ROM of L UE. Supine pec/ant sh stretch. 20 sec x 1. MCP joint extension. DIP joint flexion; use of objects to support execution. 1 Descriptor HEP/POC. Recommended working on in-hand manipulation skills ; focus on translation of smaller objects and rotation of larger objects (e.g., wide width pen). Practiced these activities in treatment session w/ Gerd. He denied questions. - Assessment Patient Response to Treatment Good Assessment of Improvement Improving obj manipulation abilities; advanced activities on this treatment date. Introduced more dynamic exercises. Increased awareness of L UE in space w/ cup activity; was able to self correct! versus tub container exercise. Recommend incorporating additional transferring of items away from base of support with upper extremities based on increased self awareness/ insight/ability to self correct as observed on this date. Tendency towards utilization of all digits w/ tool use as observed on this date; recommend incorporating additional tool based activities to support obj transfer at next treatment session. Gerd continues to present with L sided neglect, impaired vision, impaired L UE motor planning, decreased orientation to midline, impaired L UE sensation, and decreased functional independence. Thus, continued outpatient OT is recommended to maximize patient's success in day-to-day life with active incorporation of the L UE. Recommended activities: functional motor planning; UE motor planning; UE strengthening; Home Exercise Program Please refer to treatment section of note for specific details. Reviewed with Patient/Caregiver Goals,Progress Being Made,Home Exercise Program Patient/Caregiver Understanding Excellent - Plan Therapy Recommendations Continue with Current Program, Advance per Rehabilitation Protocol Additional Therapy Recommendations Complete progress note
--- NOTE | 2020-07-05 15:58 | OT.OPPN ---
Current Diagnoses Nontraumatic intracerebral hemorrhage, unspecified (07/05/20) Occupational Therapy Inpatient Evaluation/Re-Eval OT Outpatient Adult Evaluation Start: 09/29/19 07:33 Freq: Status: Active Protocol: Document 09/18/19 15:30 AMS (Rec: 09/29/19 08:13 AMS [id number]) General Information Session Time Visit Start Time 12:30 Visit Stop Time 13:25 Total Visit Minutes 55 Visit Information Visit Number [id number] Plan of Care Dates 09/18/19-12/11/2019 Insurance Information Medicare Setting Treatment Setting Outpatient Care Visit Type Note Type Initial Evaluation Referral Referring Physician Yesy Cortes MD Reason for Referral CVA Identification Identification Confirmed Yes: Photo ID Identification Confirmed By Medical Information Medical History Patient is a 69 year-old male referred to outpatient OT by PCP, Yesy Cortes MD, 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 Patient was transferred from [facility] to [facility] where craniotomy was performed 04/16/19. Patient completed 7 weeks of rehab at [facility] and then underwent secondary surgery on 06/26/19 to replace skull fragment. Patient was then at acute rehab facility 06/30/19-07/18/19 . He was discharged home with assist from and caregivers. He received Home Health PT/OT/[facility]HL[facility] until . Therapy Pain Assessment Pain When Pain Assessed Pre-treat Pain Present Pain Present Pain Reported Location Left Foot Intensity 5 Scale Used Numeric (0 - 10) Left Upper Leg Intensity 7 Scale Used Numeric (0 - 10) Lower Back Intensity 7 Scale Used Numeric (0 - 10) Left Arm Intensity 4 Scale Used Numeric (0 - 10) Bilateral Shoulder Intensity 5 Scale Used Numeric (0 - 10) ADLs Overall Ability Comments Impaired; and caregiver assists patient w/ ADLS Dressing Skill Level Impaired Skill Level Impaired Skill Level Impaired Bathing Skill Level Impaired Toileting Skill Level Impaired Observations Observations Observations AROM of L thumb noted. Use of lateral nichols pinch. Unable to oppose left thumb to second digit pad. In-Hand Manipulation [id number] Translation Right Level of Ability WFL Left Level of Ability Unable [id number] Translation Right Level of Ability WFL Left Level of Ability Unable Shift Right Level of Ability WFL Left Level of Ability Unable Simple Rotation Right Level of Ability WFL Left Level of Ability Unable Complex Rotation Right Level of Ability WFL Left Level of Ability Unable Goals Treatment Treatment Education completed re: positioning of UE when at rest ; instructed in positioning in w/c and when in supported sitting. Education focus on positioning of UE away from protective pattern and to the left of the body w/ supported wrist extension as tolerated. Recommended active TT ROM w/ scapular retraction/ protraction in frontal plane given no c/o pain/discomfort w / this exercise. Short Term Goals Short Term Goals 1. Patient will be able to oppose left thumb to second digit pad 4 out of 5 trials with increased effort and concentration demonstrating increasing ability to actively incorporate the left upper extremity/hand in day-to-day life. 2. 0-30 degrees active left wrist extension. 3. 0-60 degrees active left forearm supination. 4. Patient will demonstrate increased ability to actively incorporate L UE in day-to-day life, as evidenced by ability to tolerate left <-> right weight shifting x 10 trials, with hands positioned in frontal plane. 5. Patient will actively participate in standardized digit/adventure challenge instructor strength testing as tolerated. Manufacturer Representative Goals Assisted Goals 1. Patient will be modified independent with execution of UE home exercise program utilizing provided written and visual instructions from therapist with support of family and caregivers. 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 PMH : Significant for arthritis; back pain; blood pressure; fibromyalgia; 2 brain surgeries (March 2019); left sided neglect; impaired vision . PLOF: Independent w/ ADLS and IADLS. Evaluation findings: Reported pain/discomfort of L LE, lower back bilateral shoulders, and L UE; left sided neglect; impaired functional independence; patient focus on gait; poor tolerance for distal L UE splint; impaired sensation of L UE; L UE weakness; decreased L UE AROM; decreased object manipulation abilities of the L hand; spasticity into flexor pattern of UE; protective posturing of UE; impaired posture; impaired balance; and poor tolerance for UE weight bearing. Outpatient OT is recommended to address these areas in order to maximize Gerd's success with active participation in meaningful activities with active incorporation of the affected UE. Plan Comment 12 weeks Comment 1-2 times per week Therapeutic Contents Active Range of Motion, Adaptive Equipment Education, Client Education,Cognitive Skills Development,Functional Activities,Home Exercise Program,Joint Protection, Manual Therapy,Education, Neurodevelopment Treatment, Neuromuscular Re-Education, Self-Care,Stretching/ Flexibility Activities, Therapeutic Activities, Therapeutic Exercises, Modalities,Sensory Re- education Modalities As Needed,As Prescribed Types of Modalities Contrast Bath,E-Stim, Functional Stimulation (FES),T .E.N. Stimulation,TENS Placement/Application, Ultrasound Patient Instruction Home Exercise Program,Plan of Care,Questions/Concerns Sensory Assessment Sensory Profile2 Functional Wrist/Hand Scan Hand Side OT Outpatient Standardized Assessments Start: 09/29/19 07:33 Freq: Status: Active Protocol: Document 07/05/20 15:38 [facility] (Rec: 07/05/20 15:58 [facility] [id number]) Jebsen-Mely Hand Function Test Date of Test Date of Test 01/06/20 Writing Comments N/A Lifting Small, Common Objects Non-Dominant Hand 16.6 Dominant Hand 6.3 Comments Mean Subtest Scores for Men 60 -69 years of age in sec (+/- SD) Non-dominant hand = 7.48 +/- 2 .20; > 4 SD above the mean Dominant hand = 6.72 +/- 1.39; slightly faster then mean Simulated Feeding Comments N/A Stacking Checkers Non-Dominant Hand Unable Dominant Hand 5.2 Comments Mean Subtest Scores for Men 60 -69 years of age in sec (+/- SD) Non-dominant hand = 5.46 +/- 2 .83 Dominant hand = 4.19 +/- 0.93 ; slightly > 1 SD above mean Lifting Large, Light Objects Non-Dominant Hand 34.3 Dominant Hand 4.4 Comments Mean Subtest Scores for Men 60 -69 years of age in sec (+/- SD) Non-dominant hand = 3.94 +/- 0 .69; > 5+ SD above the man Dominant hand = 3.69 +/- 0.71; 1 SD above mean Lifting Large, Heavy Objects Non-Dominant Hand 39.8 Dominant Hand 5.8 Comments Mean Subtest Scores for Men 60 -69 years of age in sec (+/- SD) Non-dominant hand = 4.03 +/- 0 .78; > 5+ SD above the man Dominant hand = 3.62 +/- 0.73; slightly greater than 2 SD above the mean 9-Hole Peg Hand Test Hand Left Date of Test 01/13/20 Therapist DENISE Austin/Octavio Comments Unable Right Comments Did not perform assessment given patient unable to complete w/ L hand OT Outpatient Treatment Note - Adult Start: 09/29/19 07:33 Freq: Status: Active Protocol: Document 07/05/20 15:38 AMS (Rec: 07/05/20 15:58 AMS [id number]) OT Outpatient Adult Treatment Note Session Time Visit Start Time 13:30 Visit Stop Time 14:20 Total Visit Minutes 50 Visit Information Visit Number 11/28 Plan of Care Dates 07/05/20-09/27/20 Insurance Information Medicare Setting Treatment Setting Outpatient Care Visit Type Note Type Treatment Note General Information General Information Now 70-yr-old male s/p 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 The pt was brought to [facility] ED where CT head revealed hemorrhage, then transferred [facility] Pt underwent craniotomy on 04/16. He transferred to [facility] for rehab on 05/05 , where he remained until returning to [facility] 06/26 for surgical replacement of right side skull. He transferred from [facility] to [facility] for acute inpatient rehab from 06/30 - 07/18, returning home with Home Health PT/OT/ST until 09/12. - Subjective Identification Type Name Identification Reconciled With Medical Record Observations He had a hard time doing this at home per April in re: putting card in envelope. Patient/Caregiver Compliance with Home Excellent Exercise Program Comments w/ caregiver/family support - Objective Objective Measurements Object transfer R hand thumb/ 3rd digit. Please refer to below for progress towards meeting established OT goals. Functional abilities as of = min phys assist w/ donning UB/LB dressing ( however, is mod I w/ socks/ shoes); mod I w/ toileting hygiene, application of deodarant, and managing personal glasses. 01/06/20= Correctly differentiated between L vs R w/ laterality activity 5 out of 10 trials. 12/16/19= Impaired sensation of L UE; absent sensation of distal UE (volar/dorsal surfaces of the hand). Absent touch noted in the areas of light, pain, stereognosis. Report of some sense of touch noted w/ vibration elbow --> distal UE. Report of painful response to water to hand in morning. Short Term Goals 1. Patient will present with improved fine motor coordination of the affected upper extremity; this will be evidenced by Gerd's ability to place at least 5 pegs in pegboard with the left hand. = 25% met 2. Patient will present with improved fine motor and bimanual coordination of the upper extremities, as evidenced by patient's self- report of ability to manage personal zippers of UB clothing items with increased time while seated on stable surface on a daily basis. 07/05= 25% met 3. 0-80 degrees active R sh abd. GOALS MET Actively participated in standardized digit/adventure challenge instructor strength testing. Stripper Black And White/Lateral Nichols Pinch. *MET 10/21/19 Opposed L thumb to second digit pad 4 out of 5 trials w/ increased effort/ concentration. *MET 11/17/19 0-60 degrees active left forearm supination. *MET = 0-75 degrees Will average 15.0+ pounds of force with L adventure challenge instructor dynamometer II strength testing. *MET 12/09= avg 22.0# of force Opposed L thumb to each digit pad x 2 out of 2 cycles. *MET 12/24/19 0-30 degrees active left wrist extension. *MET 01/13/20. 0-40 w/ fingers flexed Actively utilizing the left hand with functional transfers . *MET 01/13/20 Actively participated in additional standardized assessments. *MET 01/13/20 Flipped over 10 various sized coins w/ S without use of edge of TT. *MET 06/16/20 Flipped five, 3 x 5 index cards, within 2 SD below the mean (within 11.88 seconds) ( Peter subtest). *MET 07/05/20; 10.9 sec Stacked 4 wood checkers w/ S. *MET 07/05/20 Assisted Goals 1. Patient will be modified independent with execution of UE home exercise program utilizing provided written and visual instructions from therapist with support of family and caregivers. 07/05/20 = 50% met 2. Patient will be able to don upper body clothing items (e.g., donning of shirt/jacket ) with modified independence utilizing compensatory strategies on a daily basis based on spouse/patient verbal report, as observed over a 7- day period of time. 07/05/20= 75% met; set-up from 3. Patient will present with improved bimanual coordination of the upper extremities, as evidenced by patient and patient's spouse's self-report of ability to manage personal reading materials, utilizing compensatory strategies/AE if/ as needed, with increased time while seated on stable surface on a daily basis with modified independence. 07/05/20 = 25% met GOALS MET Per , Gerd is able to doff all UB clothing items w/ mod I on daily basis. *MET 12/30/19 - Treatment 4 Descriptor Bimanual functional coordination. Neuro re- education. 3 Descriptor Functional object manipulation . Tool manipulation (basic level ). Card flip. Checkers stack. Small pegs. Exercises 6 Descriptor L UE Strengthening. Sh flex. 3# DB. 2 x 10. Sh ht. Seated. Sh abd. 3# DB. 2 x 10. Sh ht. Seated. Sh hor. abd. 3# DB. 2 x 10. Sh ht. Supine. Hor Abd/Add. Seated. 1# DB. 2 x 5. N/A 06/28/20 Post deltoid. R sidelying. 2# DB. 2 x 10. Visual cues to support motor planning. 1 Descriptor HEP/POC. Recommended functional incorporation of the L UE on a daily basis with various tasks. Working on compensatory strategies w/ object manipulation given impaired sensation. Recommended working on small obj rotation/controlling grasp and release of small objects. He denied questions. - Assessment Patient Response to Treatment Good Assessment of Overall Progress Improving Assessment of Improvement Gerd has made progress over the last certification period relative to object manipulation abilities of the left hand; this is evidenced by Gerd meeting short term goals in these areas, as well as therapist's ability to advance in therapy treatment fine motor/bimanual activities . Gerd tends to utilize all digits w/ basic tool use; working on radial side isolation w/ tool use. Therapist is also working on compensatory strategies w/ object manipulation given Gerd 's impaired sensation (e.g., placement of small peg on pegboard w/ fingertips w/ lifting hand straight up from pegboard). Gerd is demonstrating progress w/ functional dressing; however, continues to need assistance w / orientation of clothing items (e.g., shirt). Gerd was observed to need assistance w/ bimanual coordination w/ card and envelope; assistance provided w/ orientation. He was able to execute on 3rd trial without tactile cues. Gerd continues to present with L sided neglect, impaired vision, impaired L UE motor planning, decreased orientation to midline, impaired L UE sensation, and decreased functional independence. Thus, continued outpatient OT is recommended to maximize patient's success in day-to-day life with active incorporation of the L UE. Recommended activities: functional motor planning; UE motor planning; UE strengthening Home Exercise Program Please refer to treatment section of note for specific details. Reviewed with Patient/Caregiver Goals,Progress Being Made,Home Exercise Program Patient/Caregiver Understanding Excellent - Plan Therapy Recommendations Continue with Current Program, Advance per Rehabilitation Protocol Comment 12 weeks Comment 1-2 times per week Therapeutic Contents Active Range of Motion, Adaptive Equipment Education, Client Education,Cognitive Skills Development,Functional Activities,Home Exercise Program,Joint Protection, Manual Therapy,Education, Neurodevelopment Treatment, Neuromuscular Re-Education, Self-Care,Stretching/ Flexibility Activities, Therapeutic Activities, Therapeutic Exercises, Modalities,Sensory Re- education Types of Modalities E-Stim,Functional Stimulation (FES),T.E.N. Stimulation,TENS Placement/Application Additional Types of Modalities Heat/Ice
--- NOTE | 2020-07-28 15:32 | OT.OP.TRT ---
Visit Care Team Role Provider Type Yesy Cortes MD Attending Provider Physician Primary Care Provider Specialty: Internal Medicine [address]: [address] [place] [address], [address] Email: [email or web address] Therapy Treatment Note OT Outpatient Treatment Note - Adult Start: 09/29/19 07:33 Freq: Status: Active Protocol: Document 07/28/20 15:30 AMS (Rec: 07/29/20 15:32 AMS [id number]) OT Outpatient Adult Treatment Note Session Time Visit Start Time 14:30 Visit Stop Time 15:15 Total Visit Minutes 45 Visit Information Visit Number 12/29 Plan of Care Dates 07/05/20-09/27/20 Insurance Information Medicare Setting Treatment Setting Outpatient Care Visit Type Note Type Treatment Note General Information General Information Now 70-yr-old male s/p 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 The pt was brought to [facility] ED where CT head revealed hemorrhage, then transferred via helicopter to [facility]. Pt underwent craniotomy on 04/16. He transferred to [facility] for rehab on 05/05 , where he remained until returning to [facility] 06/26 for surgical replacement of right side skull. He transferred from [facility] to [facility] for acute inpatient rehab from 06/30 - 07/18, returning home with Home Health PT/OT/ST until 09/12. - Subjective Identification Type Name Identification Reconciled With Medical Record Observations My hand really hurt while holding the phone per Gerd. Patient/Caregiver Compliance with Home Excellent Exercise Program Comments w/ caregiver/family support - Objective Objective Measurements Object transfer R hand thumb/ 3rd digit. Hyperextension of DIP joints of 3rd, 4th and 5th digits of the L hand; hyperextension observed w/ object retrieval given digits are extended despite size of objects being manipulated. Please refer to below for progress towards meeting established OT goals. Functional abilities as of = min phys assist w/ donning UB/LB dressing ( however, is mod I w/ socks/ shoes); mod I w/ toileting hygiene, application of deodarant, and managing personal glasses. 01/06/20= Correctly differentiated between L vs R w/ laterality activity 5 out of 10 trials. 12/16/19= Impaired sensation of L UE; absent sensation of distal UE (volar/dorsal surfaces of the hand). Absent touch noted in the areas of light, pain, stereognosis. Report of some sense of touch noted w/ vibration elbow --> distal UE. Report of painful response to water to hand in morning. Short Term Goals 1. Patient will present with improved fine motor coordination of the affected upper extremity; this will be evidenced by Gerd's ability to place at least 5 pegs in pegboard with the left hand. = 25% met 2. Patient will present with improved fine motor and bimanual coordination of the upper extremities, as evidenced by patient's self- report of ability to manage personal zippers of UB clothing items with increased time while seated on stable surface on a daily basis. 07/05= 25% met 3. 0-80 degrees active R sh abd. GOALS MET Actively participated in standardized digit/valance cutter strength testing. Biometric Fingerprinting Technician/Lateral Nichols Pinch. *MET 10/21/19 Opposed L thumb to second digit pad 4 out of 5 trials w/ increased effort/ concentration. *MET 11/17/19 0-60 degrees active left forearm supination. *MET = 0-75 degrees Will average 15.0+ pounds of force with L valance cutter dynamometer II strength testing. *MET 12/09= avg 22.0# of force Opposed L thumb to each digit pad x 2 out of 2 cycles. *MET 12/24/19 0-30 degrees active left wrist extension. *MET 01/13/20. 0-40 w/ fingers flexed Actively utilizing the left hand with functional transfers . *MET 01/13/20 Actively participated in additional standardized assessments. *MET 01/13/20 Flipped over 10 various sized coins w/ S without use of edge of TT. *MET 06/16/20 Flipped five, 3 x 5 index cards, within 2 SD below the mean (within 11.88 seconds) ( Peter subtest). *MET 07/05/20; 10.9 sec Stacked 4 wood checkers w/ S. *MET 07/05/20 [place] Goals 1. Patient will be modified independent with execution of UE home exercise program utilizing provided written and visual instructions from therapist with support of family and caregivers. 07/28/20= 50% met 2. Patient will be able to don upper body clothing items (e.g., donning of shirt/jacket ) with modified independence utilizing compensatory strategies on a daily basis based on spouse/patient verbal report, as observed over a 7- day period of time. 07/28/20= 75 % met; set-up from 3. Patient will present with improved bimanual coordination of the upper extremities, as evidenced by patient and patient's spouse's self-report of ability to manage personal reading materials, utilizing compensatory strategies/AE if/ as needed, with increased time while seated on stable surface on a daily basis with modified independence. 07/28/20= 25% met GOALS MET Per , Rod is able to doff all UB clothing items w/ mod I on daily basis. *MET 12/30/19 - Treatment 4 Descriptor Bimanual functional coordination. Neuro re- education. 3 Descriptor Functional object manipulation . Tool manipulation (basic level ). Exercises 1 Descriptor HEP/POC. Thelma, Rod's , was present throughout treatment session. Discussed new activities that have been recently initiated in treatment session (including rotation of objects in palm/ tool manipulation). Discussed use of oval 8 rings throughout the day given positioning of DIP joints in hyperextension based on current motor approach to obj manipulation of various sizes. Thelma and Rod will look into this option further at home. Discussed use of AE to support grasping/holding of phone in the left hand to promote bimanual coordination/ functional abilities. Discussed utilization of paper cups to support functional motor planning/assist w/ force . - Assessment Patient Response to Treatment Good Assessment of Improvement Decreased success w/ tool manipulation on this treatment date compared to previous treatment sessions; however, therapist was able to initiate unfamiliar functional motor tasks which patient actively participated in. Therapist introduced motor planning w/ obj avoidance given frequent knocking over of items/grading of force w/ functional objects w/ cups to support functional/meaningful tasks. Rod continues to present with L sided neglect, impaired vision, impaired L UE motor planning, decreased orientation to midline, impaired L UE sensation, and decreased functional independence. Thus, continued outpatient OT is recommended to maximize patient's success in day-to-day life with active incorporation of the L UE. Recommended activities: functional motor planning; UE motor planning; UE strengthening Home Exercise Program Please refer to treatment section of note for specific details. Reviewed with Patient/Caregiver Goals,Progress Being Made,Home Exercise Program Patient/Caregiver Understanding Excellent - Plan Therapy Recommendations Continue with Current Program, Advance per Rehabilitation Protocol
--- NOTE | 2020-08-04 15:44 | OT.OP.TRT ---
Visit Care Team Role Provider Type Yesy Cortes MD Attending Provider Physician Primary Care Provider Specialty: Internal Medicine Address: [address] [place] [address], [id number] Email: [email or web address] Occupational Therapy Treatment Note OT Outpatient Treatment Note - Adult Start: 09/29/19 07:33 Freq: Status: Active Protocol: Document 08/04/20 15:27 AMS (Rec: 08/04/20 15:44 AMS [id number]) OT Outpatient Adult Treatment Note Session Time Visit Start Time 14:30 Visit Stop Time 15:15 Total Visit Minutes 45 Visit Information Visit Number 01/26 Plan of Care Dates 07/05/20-09/27/20 Insurance Information Medicare Setting Treatment Setting Outpatient Care Visit Type Note Type Treatment Note General Information General Information Now 70-yr-old male s/p 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 The pt was brought to [facility] ED where CT head revealed hemorrhage, then transferred via helicopter to [facility]. Pt underwent craniotomy on 04/16. He transferred to [facility] for rehab on 05/05 , where he remained until returning to [facility] 06/26 for surgical replacement of right side skull. He transferred from [facility] to [facility] for acute inpatient rehab from 06/30 - 07/18, returning home with Home Health PT/OT/ST until 09/12. - Subjective Identification Type Name Identification Reconciled With Medical Record Observations I want to be able to use this hand more. I can tell that I was doing something I hadn't done before in this hand per Gerd relative to cell phone use. Patient/Caregiver Compliance with Home Excellent Exercise Program Comments w/ caregiver/family support - Objective Objective Measurements Object transfer R hand thumb/ 3rd digit. Hyperextension of DIP joints of 3rd, 4th and 5th digits of the L hand; hyperextension observed w/ object retrieval given digits are extended despite size of objects being manipulated. Please refer to below for progress towards meeting established OT goals. Functional abilities as of = min phys assist w/ donning UB/LB dressing ( however, is mod I w/ socks/ shoes); mod I w/ toileting hygiene, application of deodarant, and managing personal glasses. 01/06/20= Correctly differentiated between L vs R w/ laterality activity 5 out of 10 trials. 12/16/19= Impaired sensation of L UE; absent sensation of distal UE (volar/dorsal surfaces of the hand). Absent touch noted in the areas of light, pain, stereognosis. Report of some sense of touch noted w/ vibration elbow --> distal UE. Report of painful response to water to hand in morning. Short Term Goals 1. Patient will present with improved fine motor coordination of the affected upper extremity; this will be evidenced by Gerd's ability to place at least 5 pegs in pegboard with the left hand. = 25% met 2. Patient will present with improved fine motor and bimanual coordination of the upper extremities, as evidenced by patient's self- report of ability to manage personal zippers of UB clothing items with increased time while seated on stable surface on a daily basis. 07/05= 25% met 3. 0-80 degrees active R sh abd. GOALS MET Actively participated in standardized digit/contestant coordinator strength testing. Bull Bucker/Lateral Nichols Pinch. *MET 10/21/19 Opposed L thumb to second digit pad 4 out of 5 trials w/ increased effort/ concentration. *MET 11/17/19 0-60 degrees active left forearm supination. *MET = 0-75 degrees Will average 15.0+ pounds of force with L contestant coordinator dynamometer II strength testing. *MET 12/09= avg 22.0# of force Opposed L thumb to each digit pad x 2 out of 2 cycles. *MET 12/24/19 0-30 degrees active left wrist extension. *MET 01/13/20. 0-40 w/ fingers flexed Actively utilizing the left hand with functional transfers . *MET 01/13/20 Actively participated in additional standardized assessments. *MET 01/13/20 Flipped over 10 various sized coins w/ S without use of edge of TT. *MET 06/16/20 Flipped five, 3 x 5 index cards, within 2 SD below the mean (within 11.88 seconds) ( Peter subtest). *MET 07/05/20; 10.9 sec Stacked 4 wood checkers w/ S. *MET 07/05/20 Correction Goals 1. Patient will be modified independent with execution of UE home exercise program utilizing provided written and visual instructions from therapist with support of family and caregivers. 07/28/20= 50% met 2. Patient will be able to don upper body clothing items (e.g., donning of shirt/jacket ) with modified independence utilizing compensatory strategies on a daily basis based on spouse/patient verbal report, as observed over a 7- day period of time. 07/28/20= 75 % met; set-up from 3. Patient will present with improved bimanual coordination of the upper extremities, as evidenced by patient and patient's spouse's self-report of ability to manage personal reading materials, utilizing compensatory strategies/AE if/ as needed, with increased time while seated on stable surface on a daily basis with modified independence. 07/28/20= 25% met 4. Patient will present with improved functional independence/motor coordination of the left upper extremity; this will be evidenced by patient and spouse's verbal report of patient's ability to manage personal cell phone utilizing compensatory strategies/AE if/ as needed over short periods of time (5 to 10 minutes in length) on daily basis with the left hand. 08/04/20= 25% met; NEW GOAL GOALS MET Per , Rod is able to doff all UB clothing items w/ mod I on daily basis. *MET 12/30/19 - Treatment 6 Descriptor Eye-hand coordination w/ visual scanning component. Whiteboard away from SRIDEVI. TT level within base of support. Sticky notes. L <-> R matching . 5 Descriptor Bimanual coordination. 4 Descriptor Neuro re-education. 3 Descriptor Functional object manipulation . Personal cell phone. Exercises 1 Descriptor HEP/POC. Thelma, Rod's , was present throughout treatment session. Recommended daily engagement of personal cell phone use in supported sitting position; recommended engagement in previously meaningful esther on cell phone with use of left hand. Discussed potential use of ipad to enlarge circles based on size observed in session to support success. Recommended esther use/fine motor/maze apps if meaningful to support UE motor planning. Recommended use of sticky notes as an additional option to support visual fixation w/ eye-hand coordination. Discussed use of large strap given report of discomfort w/ phone use and to avoid damaging cell phone and /or case. Thelma and Gerd denied questions. Recommended utilizing apps recommended by speech with the left hand; discuss w/ POST ACUTE CARE REGISTERED NURSE if more guidance is needed to identify appropriate 'brain exercises' . - Assessment Patient Response to Treatment Good Assessment of Improvement Increased focus on participation in meaningful activity (use of personal cell phone) on this treatment date ; actively problem solved with couple to support Gerd's success. Recommend revisiting at time of next treatment session. Initiated vertical visual scanning/L UE eye-hand coordination activities. Fatigue noted particularly w/ vertical positioning of board away from base of support. However, Gerd actively participated in task and demonstrated good effort. Gerd continues to present with L sided neglect, impaired vision, impaired L UE motor planning, decreased orientation to midline, impaired L UE sensation, and decreased functional independence. Thus, continued outpatient OT is recommended to maximize patient's success in day-to-day life with active incorporation of the L UE. Recommended activities: functional motor planning; UE motor planning; UE strengthening Home Exercise Program Please refer to treatment section of note for specific details. Reviewed with Patient/Caregiver Goals,Progress Being Made,Home Exercise Program Patient/Caregiver Understanding Excellent - Plan Therapy Recommendations Continue with Current Program, Advance per Rehabilitation Protocol
--- NOTE | 2020-08-11 15:56 | OT.OP.TRT ---
Visit Care Team Role Provider Type Yesy Cortes MD Attending Provider Physician Primary Care Provider Specialty: Internal Medicine Address: [address] [place] [address], [id number] Email: [email or web address] Occupational Therapy Treatment Note OT Outpatient Treatment Note - Adult Start: 09/29/19 07:33 Freq: Status: Active Protocol: Document 08/11/20 15:42 AMS (Rec: 08/11/20 15:56 AMS [id number]) OT Outpatient Adult Treatment Note Session Time Visit Start Time 14:30 Visit Stop Time 15:20 Total Visit Minutes 50 Visit Information Visit Number 02/26 Plan of Care Dates 07/05/20-09/27/20 Insurance Information Medicare Setting Treatment Setting Outpatient Care Visit Type Note Type Treatment Note General Information General Information 70-yr-old male s/p 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 The pt was brought to [facility] ED where CT head revealed hemorrhage, then transferred via helicopter to [facility]. Pt underwent craniotomy on 04/16. He transferred to [facility] for rehab on 05/05 , where he remained until returning to [facility] 06/26 for surgical replacement of right side skull. He transferred from [facility] to [facility] for acute inpatient rehab from 06/30 - 07/18, returning home with Home Health PT/OT/ST until 09/12. - Subjective Identification Type Name Identification Reconciled With Medical Record Observations See now this hand is sore per . We have some pulleys at home per April. Patient/Caregiver Compliance with Home Excellent Exercise Program Comment w/ caregiver/family support - Objective Objective Measurements Object transfer R hand thumb/ 3rd digit. Hyperextension of DIP joints of 3rd, 4th and 5th digits of the L hand; hyperextension observed w/ object retrieval given digits are extended despite size of objects being manipulated. Please refer to below for progress towards meeting established OT goals. Functional abilities as of = min phys assist w/ donning UB/LB dressing ( however, is mod I w/ socks/ shoes); mod I w/ toileting hygiene, application of deodarant, and managing personal glasses. 01/06/20= Correctly differentiated between L vs R w/ laterality activity 5 out of 10 trials. 12/16/19= Impaired sensation of L UE; absent sensation of distal UE (volar/dorsal surfaces of the hand). Absent touch noted in the areas of light, pain, stereognosis. Report of some sense of touch noted w/ vibration elbow --> distal UE. Report of painful response to water to hand in morning. Short Term Goals 1. Patient will present with improved fine motor coordination of the affected upper extremity; this will be evidenced by Gerd's ability to place at least 5 pegs in pegboard with the left hand. = 25% met 2. Patient will present with improved fine motor and bimanual coordination of the upper extremities, as evidenced by patient's self- report of ability to manage personal zippers of UB clothing items with increased time while seated on stable surface on a daily basis. 07/05= 25% met 3. 0-80 degrees active R sh abd. GOALS MET Actively participated in standardized digit/spring layer strength testing. News Production Supervisor/Lateral Nichols Pinch. *MET 10/21/19 Opposed L thumb to second digit pad 4 out of 5 trials w/ increased effort/ concentration. *MET 11/17/19 0-60 degrees active left forearm supination. *MET = 0-75 degrees Will average 15.0+ pounds of force with L spring layer dynamometer II strength testing. *MET 12/09= avg 22.0# of force Opposed L thumb to each digit pad x 2 out of 2 cycles. *MET 12/24/19 0-30 degrees active left wrist extension. *MET 01/13/20. 0-40 w/ fingers flexed Actively utilizing the left hand with functional transfers . *MET 01/13/20 Actively participated in additional standardized assessments. *MET 01/13/20 Flipped over 10 various sized coins w/ S without use of edge of TT. *MET 06/16/20 Flipped five, 3 x 5 index cards, within 2 SD below the mean (within 11.88 seconds) ( Peter subtest). *MET 07/05/20; 10.9 sec Stacked 4 wood checkers w/ S. *MET 07/05/20 Intermediate Goals 1. Patient will be modified independent with execution of UE home exercise program utilizing provided written and visual instructions from therapist with support of family and caregivers. 07/28/20= 50% met 2. Patient will be able to don upper body clothing items (e.g., donning of shirt/jacket ) with modified independence utilizing compensatory strategies on a daily basis based on spouse/patient verbal report, as observed over a 7- day period of time. 07/28/20= 75 % met; set-up from 3. Patient will present with improved bimanual coordination of the upper extremities, as evidenced by patient and patient's spouse's self-report of ability to manage personal reading materials, utilizing compensatory strategies/AE if/ as needed, with increased time while seated on stable surface on a daily basis with modified independence. 07/28/20= 25% met 4. Patient will present with improved functional independence/motor coordination of the left upper extremity; this will be evidenced by patient and spouse's verbal report of patient's ability to manage personal cell phone utilizing compensatory strategies/AE if/ as needed over short periods of time (5 to 10 minutes in length) on daily basis with the left hand. 08/04/20= 25% met GOALS MET Per , Rod is able to doff all UB clothing items w/ mod I on daily basis. *MET 12/30/19 - Treatment 6 Descriptor Eye-hand coordination. Balloon. OT positioned to L of body. 4-square ball. Bimanual activity center and w/ focus of catching to L of body. 5 Descriptor Bimanual coordination. 4 Descriptor Neuro re-education. 3 Descriptor Functional object manipulation . Personal cell phone. 2 Descriptor Kinesthetic awareness of L UE in space. Forearm/wrist positioning of R UE first then addition of elbow component. Verbal language provided to support Gerd's breaking down of motor chain along chain - self- identifying. Exercises 3 Descriptor Arm pulleys. x 5 minutes. Seated punches. Above head. Snow angels. Limited to 90 degrees. 2 Descriptor Upper trap tightness. Instructed in self-stretch. Hold 20 sec. Reviewed importance of posture and completing supine stretches. 1 Descriptor HEP/POC. Thelma, Rod's , was present throughout treatment session. Recommended focusing on 2 methods to utilize arm pulleys in sitting (to avoid having to reposition pulleys and support Gerd's independence w/ home program). Recommended goal of 3 minutes and increasing to 5 minutes. Discussed practicing of kinesthetic exercise at home given success observed in session; reviewed guidelines. Recommended daily execution of pec stretch, bicep stretch, attending to posture, and engaging in strengthening of post delt in sidelying. - Assessment Assessment of Improvement Increasing attention to left side of space; able to advance bimanual UE activities, as well eye-hand coordination/ motor planning tasks. Improving kinesthetic awareness of L UE; w/ verbal breakdown to support breakdown of motor chain able to replicate L from elbow, forearm, and wrist levels. Upper trap tightness, tightness of bicep, anterior chest/pec, rhomboids, and impaired posture; reviewed importance of daily execution of stretches. Upgraded HEP. Recommend reviewing HEP at this time for UE at time of next treatment session. Gerd continues to present with L sided neglect, impaired vision, impaired L UE motor planning, decreased orientation to midline, impaired L UE sensation, and decreased functional independence. Thus, continued outpatient OT is recommended to maximize patient's success in day-to-day life with active incorporation of the L UE. Recommended activities: functional motor planning; UE motor planning; UE strengthening Home Exercise Program Please refer to treatment section of note for specific details. - Plan Therapy Recommendations Continue with Current Program, Advance per Rehabilitation Protocol
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
--- NOTE | 2020-08-26 15:45 | OT.OP.TRT ---
Visit Care Team Role Provider Type Yesy Cortes MD Attending Provider Physician Primary Care Provider Specialty: Internal Medicine [address]: [address] [place] [address], [id number] Email: [email or web address]ational Therapy Treatment Note OT Outpatient Treatment Note - Adult Start: 09/29/19 07:33 Freq: Status: Active Protocol: Document 08/25/20 15:30 AMS (Rec: 08/26/20 12:25 AMS [id number]) OT Outpatient Adult Treatment Note Session Time Visit Start Time 14:30 Visit Stop Time 15:20 Total Visit Minutes 50 Visit Information Visit Number 04/28 Plan of Care Dates 07/05/20-09/27/20 Insurance Information Medicare Setting Treatment Setting Outpatient Care Visit Type Note Type Treatment Note General Information General Information 70-yr-old male s/p 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 The pt was brought to [facility] ED where CT head revealed hemorrhage, then transferred via helicopter to [facility]. Pt underwent craniotomy on 04/16. He transferred to [facility] for rehab on 05/05 , where he remained until returning to [facility] 06/26 for surgical replacement of right side skull. He transferred from [facility] to [facility] for acute inpatient rehab from 06/30 - 07/18, returning home with Home Health PT/OT/ST until 09/12. - Subjective Identification Type Name Identification Reconciled With Medical Record Observations April, Rod's , informed therapist that 'a small change in his vision was found'. Patient/Caregiver Compliance with Home Excellent Exercise Program Comment w/ caregiver/family support - Objective Objective Measurements Object transfer R hand thumb/ 3rd digit. Hyperextension of DIP joints of 3rd, 4th and 5th digits of the L hand; hyperextension observed w/ object retrieval given digits are extended despite size of objects being manipulated. Please refer to below for progress towards meeting established OT goals. Functional abilities as of = min phys assist w/ donning UB/LB dressing ( however, is mod I w/ socks/ shoes); mod I w/ toileting hygiene, application of deodarant, and managing personal glasses. 01/06/20= Correctly differentiated between L vs R w/ laterality activity 5 out of 10 trials. 12/16/19= Impaired sensation of L UE; absent sensation of distal UE (volar/dorsal surfaces of the hand). Absent touch noted in the areas of light, pain, stereognosis. Report of some sense of touch noted w/ vibration elbow --> distal UE. Report of painful response to water to hand in morning. Short Term Goals 1. Patient will present with improved fine motor coordination of the affected upper extremity; this will be evidenced by Gerd's ability to place at least 5 pegs in pegboard with the left hand. = 25% met 2. Patient will present with improved fine motor and bimanual coordination of the upper extremities, as evidenced by patient's self- report of ability to manage personal zippers of UB clothing items with increased time while seated on stable surface on a daily basis. 07/05= 25% met 3. 0-80 degrees active R sh abd. GOALS MET Actively participated in standardized digit/nursery hand strength testing. Card Punching Machine Operator/Lateral Nichols Pinch. *MET 10/21/19 Opposed L thumb to second digit pad 4 out of 5 trials w/ increased effort/ concentration. *MET 11/17/19 0-60 degrees active left forearm supination. *MET = 0-75 degrees Will average 15.0+ pounds of force with L nursery hand dynamometer II strength testing. *MET 12/09= avg 22.0# of force Opposed L thumb to each digit pad x 2 out of 2 cycles. *MET 12/24/19 0-30 degrees active left wrist extension. *MET 01/13/20. 0-40 w/ fingers flexed Actively utilizing the left hand with functional transfers . *MET 01/13/20 Actively participated in additional standardized assessments. *MET 01/13/20 Flipped over 10 various sized coins w/ S without use of edge of TT. *MET 06/16/20 Flipped five, 3 x 5 index cards, within 2 SD below the mean (within 11.88 seconds) ( Peter subtest). *MET 07/05/20; 10.9 sec Stacked 4 wood checkers w/ S. *MET 07/05/20 Political Reporter Goals 1. Patient will be modified independent with execution of UE home exercise program utilizing provided written and visual instructions from therapist with support of family and caregivers. 08/18/20 = 50% met 2. Patient will be able to don upper body clothing items (e.g., donning of shirt/jacket ) with modified independence utilizing compensatory strategies on a daily basis based on spouse/patient verbal report, as observed over a 7- day period of time. 08/18/20= 75% met; set-up from 3. Patient will present with improved bimanual coordination of the upper extremities, as evidenced by patient and patient's spouse's self-report of ability to manage personal reading materials, utilizing compensatory strategies/AE if/ as needed, with increased time while seated on stable surface on a daily basis with modified independence. 07/28/20= 25% met 4. Patient will present with improved functional independence/motor coordination of the left upper extremity; this will be evidenced by patient and spouse's verbal report of patient's ability to manage personal cell phone utilizing compensatory strategies/AE if/ as needed over short periods of time (5 to 10 minutes in length) on daily basis with the left hand. 08/04/20= 25% met GOALS MET Per , Rod is able to doff all UB clothing items w/ mod I on daily basis. *MET 12/30/19 - Treatment 6 Descriptor Eye-hand coordination. 5 Descriptor Bimanual coordination. 4 Descriptor Neuro re-education. Exercises 6 Descriptor Grasp strengthening. Transferring of weighted ball. 4.4#. 2x10. 5 Descriptor Forearm supination. 2# DB. 2x10. 4 Descriptor Wrist Strengthening Wrist ext. 2# DB. 2x10. Wrist RD/UD. 2# DB. 2x10. 3 Descriptor Arm bike seated. x 3 min. 1 Descriptor HEP/POC. Thelma, Rod's , was present throughout treatment session. Education re: passive/active ROM. Discussed importance of strengthening of digits/wrist into extension. Recommend practicing of digit ext strengthening for carry-over; had patient practice holding onto rubberband w/ right hand and extending digits with forearm in neutral. Both Thelma and Rod denied questions. - Assessment Assessment of Improvement Advanced distal L UE strengthening exercises; refer to treatment section of note for specific details. Unable to maintain sh flex, w/ elbow ext, and combined wrist ext. Advanced digit extension strengthening exercises utilizing rubberband only. Gerd continues to present with L sided neglect, impaired vision, impaired L UE motor planning, decreased orientation to midline, impaired L UE sensation, and decreased functional independence. Thus, continued outpatient OT is recommended to maximize patient's success in day-to-day life with active incorporation of the L UE. Recommended activities: functional motor planning; UE motor planning; UE strengthening Home Exercise Program Please refer to treatment section of note for specific details. - Plan Therapy Recommendations Continue with Current Program, Advance per Rehabilitation Protocol
--- NOTE | 2020-09-08 15:30 | OT.OP.TRT ---
Visit Care Team Role Provider Type Yesy Cortes MD Attending Provider Physician Primary Care Provider Specialty: Internal Medicine [address]: [address] [place] [address], [address] Email: [email or web address] Occupational Therapy Treatment Note OT Outpatient Treatment Note - Adult Start: 09/29/19 07:33 Freq: Status: Active Protocol: Document 09/08/20 15:30 AMS (Rec: 09/11/20 09:47 AMS [id number]) OT Outpatient Adult Treatment Note Session Time Visit Start Time 13:30 Visit Stop Time 14:20 Total Visit Minutes 50 Visit Information Visit Number 05/28 Plan of Care Dates 07/05/20-09/27/20 Insurance Information Medicare Setting Treatment Setting Outpatient Care Visit Type Note Type Treatment Note General Information General Information 70-yr-old male s/p 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 The pt was brought to [facility] ED where CT head revealed hemorrhage, then transferred via helicopter to [facility]. Pt underwent craniotomy on 04/16. He transferred to [facility] for rehab on 05/05 , where he remained until returning to [facility] 06/26 for surgical replacement of right side skull. He transferred from [facility] to [facility] for acute inpatient rehab from 06/30 - 07/18, returning home with Home Health PT/OT/ST until 09/12. - Subjective Identification Type Name Identification Reconciled With Medical Record Observations Thelma, Rod's , was present throughout treatment session. Indication of need to encourage carry-over/increased frequence of self-directed execution of exercises in the home (including use of arm pulleys). Patient/Caregiver Compliance with Home Excellent Exercise Program Comment w/ caregiver/family support - Objective Objective Measurements Object transfer R hand thumb/ 3rd digit. Hyperextension of DIP joints of 3rd, 4th and 5th digits of the L hand; hyperextension observed w/ object retrieval given digits are extended despite size of objects being manipulated. Please refer to below for progress towards meeting established OT goals. Functional abilities as of = min phys assist w/ donning UB/LB dressing ( however, is mod I w/ socks/ shoes); mod I w/ toileting hygiene, application of deodarant, and managing personal glasses. 01/06/20= Correctly differentiated between L vs R w/ laterality activity 5 out of 10 trials. 12/16/19= Impaired sensation of L UE; absent sensation of distal UE (volar/dorsal surfaces of the hand). Absent touch noted in the areas of light, pain, stereognosis. Report of some sense of touch noted w/ vibration elbow --> distal UE. Report of painful response to water to hand in morning. Short Term Goals 1. Patient will present with improved fine motor coordination of the affected upper extremity; this will be evidenced by Gerd's ability to place at least 5 pegs in pegboard with the left hand. = 25% met 2. Patient will present with improved fine motor and bimanual coordination of the upper extremities, as evidenced by patient's self- report of ability to manage personal zippers of UB clothing items with increased time while seated on stable surface on a daily basis. 07/05= 25% met 3. 0-80 degrees active R sh abd. GOALS MET Actively participated in standardized digit/o and m supervisor strength testing. International Relations Teacher/Lateral Nichols Pinch. *MET 10/21/19 Opposed L thumb to second digit pad 4 out of 5 trials w/ increased effort/ concentration. *MET 11/17/19 0-60 degrees active left forearm supination. *MET = 0-75 degrees Will average 15.0+ pounds of force with L o and m supervisor dynamometer II strength testing. *MET 12/09= avg 22.0# of force Opposed L thumb to each digit pad x 2 out of 2 cycles. *MET 12/24/19 0-30 degrees active left wrist extension. *MET 01/13/20. 0-40 w/ fingers flexed Actively utilizing the left hand with functional transfers . *MET 01/13/20 Actively participated in additional standardized assessments. *MET 01/13/20 Flipped over 10 various sized coins w/ S without use of edge of TT. *MET 06/16/20 Flipped five, 3 x 5 index cards, within 2 SD below the mean (within 11.88 seconds) ( Peter subtest). *MET 07/05/20; 10.9 sec Stacked 4 wood checkers w/ S. *MET 07/05/20 Custodial Goals 1. Patient will be modified independent with execution of UE home exercise program utilizing provided written and visual instructions from therapist with support of family and caregivers. 08/18/20 = 50% met 2. Patient will be able to don upper body clothing items (e.g., donning of shirt/jacket ) with modified independence utilizing compensatory strategies on a daily basis based on spouse/patient verbal report, as observed over a 7- day period of time. 08/18/20= 75% met; set-up from 3. Patient will present with improved bimanual coordination of the upper extremities, as evidenced by patient and patient's spouse's self-report of ability to manage personal reading materials, utilizing compensatory strategies/AE if/ as needed, with increased time while seated on stable surface on a daily basis with modified independence. 07/28/20= 25% met 4. Patient will present with improved functional independence/motor coordination of the left upper extremity; this will be evidenced by patient and spouse's verbal report of patient's ability to manage personal cell phone utilizing compensatory strategies/AE if/ as needed over short periods of time (5 to 10 minutes in length) on daily basis with the left hand. 08/04/20= 25% met GOALS MET Per , Rod is able to doff all UB clothing items w/ mod I on daily basis. *MET 12/30/19 - Treatment 6 Descriptor Eye-hand coordination. 5 Descriptor Bimanual coordination. 4 Descriptor Neuro re-education. Exercises 6 Descriptor Grasp strengthening. Transferring of weighted ball. 4.4#. 2x10. 5 Descriptor Forearm supination. 2# DB. 2x10. 4 Descriptor Wrist Strengthening Wrist ext. 2# DB. 2x10. Wrist RD/UD. 2# DB. 2x10. 3 Descriptor Arm bike seated. x 5 min. 1 Descriptor HEP/POC. Thelma, Rod's , was present throughout treatment session. Provided written and visual instructions. Both Thelma and Rod denied questions. - Assessment Assessment of Improvement Advanced HEP. Decreased kinesthetic awareness of L sh in space. Retraining of sh. Tightness of upper trap, levator, rhomboids, pec, IR. Roles onto back/supine position when trying to isolate sh ROM w/ short or long lever arm. Impaired posture; h/o poor posture. Reviewed importance of posture to support biomechanics w/ sh movement. Education re: sitting posture and recommended avoiding use of w/ c when sitting; recommended firm back. Also discussed influence of arm rests of posture and impact on sh. Plan : explore additional sidelying exercises/use of mirror for visual feedback neuro retraining/core engagement. Gerd continues to present with L sided neglect, impaired vision, impaired L UE motor planning, decreased orientation to midline, impaired L UE sensation, and decreased functional independence. Thus, continued outpatient OT is recommended to maximize patient's success in day-to-day life with active incorporation of the L UE. Home Exercise Program Please refer to treatment section of note for specific details. - Plan Therapy Recommendations Continue with Current Program, Advance per Rehabilitation Protocol
--- NOTE | 2020-09-15 15:47 | OT.OP.TRT ---
Visit Care Team Role Provider Type Yesy Cortes MD Attending Provider Physician Primary Care Provider Specialty: Internal Medicine Address: [address] [place] [address], [address] Email: [email or web address] Occupational Therapy Treatment Note OT Outpatient Treatment Note - Adult Start: 09/29/19 07:33 Freq: Status: Active Protocol: Document 09/15/20 15:38 AMS (Rec: 09/15/20 15:47 AMS [id number]) OT Outpatient Adult Treatment Note Session Time Visit Start Time 13:30 Visit Stop Time 14:25 Total Visit Minutes 55 Visit Information Visit Number 07/29 Plan of Care Dates 07/05/20-09/27/20 Insurance Information Medicare Setting Treatment Setting Outpatient Care Visit Type Note Type Treatment Note General Information General Information 70-yr-old male s/p 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 The pt was brought to [facility] ED where CT head revealed hemorrhage, then transferred via helicopter to [facility]. Pt underwent craniotomy on 04/16. He transferred to [facility] for rehab on 05/05 , where he remained until returning to [facility] 06/26 for surgical replacement of right side skull. He transferred from [facility] to [facility] for acute inpatient rehab from 06/30 - 07/18, returning home with Home Health PT/OT/ST until 09/12. - Subjective Identification Type Name Identification Reconciled With Medical Record Observations Thelma, Rod's , was present throughout treatment session. Indication of need to encourage carry-over/increased frequence of self-directed execution of exercises in the home (including use of arm pulleys). Patient/Caregiver Compliance with Home Excellent Exercise Program Comment w/ caregiver/family support - Objective Objective Measurements Object transfer R hand thumb/ 3rd digit. Hyperextension of DIP joints of 3rd, 4th and 5th digits of the L hand; hyperextension observed w/ object retrieval given digits are extended despite size of objects being manipulated. Please refer to below for progress towards meeting established OT goals. Functional abilities as of = min phys assist w/ donning UB/LB dressing ( however, is mod I w/ socks/ shoes); mod I w/ toileting hygiene, application of deodarant, and managing personal glasses. 01/06/20= Correctly differentiated between L vs R w/ laterality activity 5 out of 10 trials. 12/16/19= Impaired sensation of L UE; absent sensation of distal UE (volar/dorsal surfaces of the hand). Absent touch noted in the areas of light, pain, stereognosis. Report of some sense of touch noted w/ vibration elbow --> distal UE. Report of painful response to water to hand in morning. Short Term Goals 1. Patient will present with improved fine motor coordination of the affected upper extremity; this will be evidenced by Gerd's ability to place at least 5 pegs in pegboard with the left hand. = 25% met 2. Patient will present with improved fine motor and bimanual coordination of the upper extremities, as evidenced by patient's self- report of ability to manage personal zippers of UB clothing items with increased time while seated on stable surface on a daily basis. 07/05= 25% met 3. 0-80 degrees active R sh abd. GOALS MET Actively participated in standardized digit/hematology nurse educator strength testing. Retail Merchandising Manager/Lateral Nichols Pinch. *MET 10/21/19 Opposed L thumb to second digit pad 4 out of 5 trials w/ increased effort/ concentration. *MET 11/17/19 0-60 degrees active left forearm supination. *MET = 0-75 degrees Will average 15.0+ pounds of force with L hematology nurse educator dynamometer II strength testing. *MET 12/09= avg 22.0# of force Opposed L thumb to each digit pad x 2 out of 2 cycles. *MET 12/24/19 0-30 degrees active left wrist extension. *MET 01/13/20. 0-40 w/ fingers flexed Actively utilizing the left hand with functional transfers . *MET 01/13/20 Actively participated in additional standardized assessments. *MET 01/13/20 Flipped over 10 various sized coins w/ S without use of edge of TT. *MET 06/16/20 Flipped five, 3 x 5 index cards, within 2 SD below the mean (within 11.88 seconds) ( Peter subtest). *MET 07/05/20; 10.9 sec Stacked 4 wood checkers w/ S. *MET 07/05/20 Custodial Goals 1. Patient will be modified independent with execution of UE home exercise program utilizing provided written and visual instructions from therapist with support of family and caregivers. = 50% met 2. Patient will be able to don upper body clothing items (e.g., donning of shirt/jacket ) with modified independence utilizing compensatory strategies on a daily basis based on spouse/patient verbal report, as observed over a 7- day period of time. 08/18/20= 75% met; set-up from 3. Patient will present with improved bimanual coordination of the upper extremities, as evidenced by patient and patient's spouse's self-report of ability to manage personal reading materials, utilizing compensatory strategies/AE if/ as needed, with increased time while seated on stable surface on a daily basis with modified independence. 07/28/20= 25% met 4. Patient will present with improved functional independence/motor coordination of the left upper extremity; this will be evidenced by patient and spouse's verbal report of patient's ability to manage personal cell phone utilizing compensatory strategies/AE if/ as needed over short periods of time (5 to 10 minutes in length) on daily basis with the left hand. 08/04/20= 25% met GOALS MET Per , Rod is able to doff all UB clothing items w/ mod I on daily basis. *MET 12/30/19 - Treatment 6 Descriptor Eye-hand coordination. 5 Descriptor Bimanual coordination. 4 Descriptor Neuro re-education. 3 Descriptor Manual address muscular tightness. Exercises 4 Descriptor ER. Upright seated. 3 sets of 10 repetitions. 3# DB. 3 Descriptor Arm bike seated. x 5 min. 1 Descriptor HEP/POC. Thelma, Rod's , was present throughout treatment session. Recommended working on kinesthetic retraining of sh w/ digit isolation activity; recommended positioning piece of paper away from body at height (below the shoulder) and tracing. No other additional exercises/ activities were recommended on this treatment date. - Assessment Assessment of Improvement Retraining of sh. Tightness of upper trap, levator, rhomboids, pec, IR. Focus on seated/upright tracing of pathway w/ 2nd digit isolation . Impaired posture; h/o poor posture. Tendency towards IR w / execution of bimanual tasks at TT; will need to work on orientation to midline; continued neuro re-training needed and addressing strength into ER. Improving attention to left side body of space. Concerns verbalized by re : impaired sensation; request to test this area. Gerd continues to present with L sided neglect, impaired vision, impaired L UE motor planning, decreased orientation to midline, impaired L UE sensation, and decreased functional independence. Thus, continued outpatient OT is recommended to maximize patient's success in day-to-day life with active incorporation of the L UE. Home Exercise Program Please refer to treatment section of note for specific details. - Plan Therapy Recommendations Continue with Current Program, Advance per Rehabilitation Protocol Additional Therapy Recommendations Complete Progress Note at time of next treatment session
--- NOTE | 2020-09-22 15:30 | OT.OPPOC ---
Physical, Occupational & Speech Therapy At [facility] Rod Nayak [id number] Rod Nayak Visit Care Team Role Provider Type Yesy Cortes MD Attending Provider Physician Primary Care Provider Address: [address] [place] [address], [id number] Occupational Therapy Plan of Care OT Outpatient Adult Evaluation Start: 09/29/19 07:33 Freq: Status: Active Protocol: Document 09/18/19 15:30 AMS (Rec: 09/29/19 08:13 AMS [id number]) General Information Session Time Visit Start Time 12:30 Visit Stop Time 13:25 Total Visit Minutes 55 Visit Information Visit Number [id number] Plan of Care Dates 09/18/19-12/11/2019 Insurance Information Medicare Setting Treatment Setting Outpatient Care Visit Type Note Type Initial Evaluation Referral Referring Physician Yesy Cortes MD Reason for Referral CVA Identification Identification Confirmed Yes: Photo ID Identification Confirmed By Medical Information Medical History Patient is a 69 year-old male referred to outpatient OT by PCP, Yesy Cortes MD, 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 Patient was transferred from [facility] to [facility] where craniotomy was performed 04/16/19. Patient completed 7 weeks of rehab at [facility] and then underwent secondary surgery on 06/26/19 to replace skull fragment. Patient was then at acute rehab facility 06/30/19-07/18/19 . He was discharged home with assist from and caregivers. 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 Therapy Pain Assessment Pain When Pain Assessed Pre-treat Pain Present Pain Present Pain Reported Location Left Foot Intensity 5 Scale Used Numeric (0 - 10) Left Upper Leg Intensity 7 Scale Used Numeric (0 - 10) Lower Back Intensity 7 Scale Used Numeric (0 - 10) Left Arm Intensity 4 Scale Used Numeric (0 - 10) Bilateral Shoulder Intensity 5 Scale Used Numeric (0 - 10) ADLs Overall Ability Comments Impaired; and caregiver assists patient w/ ADLS Dressing Skill Level Impaired Skill Level Impaired Skill Level Impaired Bathing Skill Level Impaired Toileting Skill Level Impaired Observations Observations Observations AROM of L thumb noted. Use of lateral nichols pinch. Unable to oppose left thumb to second digit pad. In-Hand Manipulation [id number] Translation Right Level of Ability WFL Left Level of Ability Unable Gprr-qq-Wkepox Translation Right Level of Ability WFL Left Level of Ability Unable Shift Right Level of Ability WFL Left Level of Ability Unable Simple Rotation Right Level of Ability WFL Left Level of Ability Unable Complex Rotation Right Level of Ability WFL Left Level of Ability Unable Goals Treatment Treatment Education completed re: positioning of UE when at rest ; instructed in positioning in w/c and when in supported sitting. Education focus on positioning of UE away from protective pattern and to the left of the body w/ supported wrist extension as tolerated. Recommended active TT ROM w/ scapular retraction/ protraction in frontal plane given no c/o pain/discomfort w / this exercise. Short Term Goals Short Term Goals 1. Patient will be able to oppose left thumb to second digit pad 4 out of 5 trials with increased effort and concentration demonstrating increasing ability to actively incorporate the left upper extremity/hand in day-to-day life. 2. 0-30 degrees active left wrist extension. 3. 0-60 degrees active left forearm supination. 4. Patient will demonstrate increased ability to actively incorporate L UE in day-to-day life, as evidenced by ability to tolerate left <-> right weight shifting x 10 trials, with hands positioned in frontal plane. 5. Patient will actively participate in standardized digit/professor criminal justice strength testing as tolerated. Clearance Representative Goals Clearance Representative Goals 1. Patient will be modified independent with execution of UE home exercise program utilizing provided written and visual instructions from therapist with support of family and caregivers. 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 PMH : Significant for arthritis; back pain; blood pressure; fibromyalgia; 2 brain surgeries (March 2019); left sided neglect; impaired vision . PLOF: Independent w/ ADLS and IADLS. Evaluation findings: Reported pain/discomfort of L LE, lower back bilateral shoulders, and L UE; left sided neglect; impaired functional independence; patient focus on gait; poor tolerance for distal L UE splint; impaired sensation of L UE; L UE weakness; decreased L UE AROM; decreased object manipulation abilities of the L hand; spasticity into flexor pattern of UE; protective posturing of UE; impaired posture; impaired balance; and poor tolerance for UE weight bearing. Outpatient OT is recommended to address these areas in order to maximize Gerd's success with active participation in meaningful activities with active incorporation of the affected UE. Plan Comment 12 weeks Comment 1-2 times per week Therapeutic Contents Active Range of Motion, Adaptive Equipment Education, Client Education,Cognitive Skills Development,Functional Activities,Home Exercise Program,Joint Protection, Manual Therapy,Education, Neurodevelopment Treatment, Neuromuscular Re-Education, Self-Care,Stretching/ Flexibility Activities, Therapeutic Activities, Therapeutic Exercises, Modalities,Sensory Re- education Modalities As Needed,As Prescribed Types of Modalities Contrast Bath,E-Stim, Functional Stimulation (FES),T .E.N. Stimulation,TENS Placement/Application, Ultrasound Patient Instruction Home Exercise Program,Plan of Care,Questions/Concerns Sensory Assessment Sensory Profile2 Functional Wrist/Hand Scan Hand Side OT Outpatient Treatment Note - Adult Start: 09/29/19 07:33 Freq: Status: Active Protocol: Document 09/22/20 15:30 AMS (Rec: 09/26/20 12:28 AMS [id number]) OT Outpatient Adult Treatment Note Session Time Visit Start Time 13:30 Visit Stop Time 14:25 Total Visit Minutes 55 Visit Information Visit Number 11/[id number] Plan of Care Dates 09/22/20-12/15/20 Insurance Information Medicare Setting Treatment Setting Outpatient Care Visit Type Note Type Progress Note General Information General Information 70-yr-old male s/p 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 The pt was brought to [facility] ED where CT head revealed hemorrhage, then transferred via helicopter to [facility]. Pt underwent craniotomy on 04/16. He transferred to [facility] for rehab on 05/05 , where he remained until returning to [facility] 06/26 for surgical replacement of right side skull. He transferred from [facility] to [facility] for acute inpatient rehab from 06/30 - 07/18, returning home with Home Health PT/OT/ST until 09/12. - Subjective Identification Type Name Identification Reconciled With Medical Record Observations April, Rod's , accompanied him to OT treatment session. Patient/Caregiver Compliance with Home Excellent Exercise Program Comment w/ caregiver/family support - Objective Objective Measurements Object transfer R hand thumb/ 3rd digit. Hyperextension of DIP joints of 3rd, 4th and 5th digits of the L hand; hyperextension observed w/ object retrieval given digits are extended despite size of objects being manipulated. Please refer to below for progress towards meeting established OT goals. Functional abilities as of = min phys assist w/ donning UB/LB dressing ( however, is mod I w/ socks/ shoes); mod I w/ toileting hygiene, application of deodarant, and managing personal glasses. 01/06/20= Correctly differentiated between L vs R w/ laterality activity 5 out of 10 trials. 12/16/19= Impaired sensation of L UE; absent sensation of distal UE (volar/dorsal surfaces of the hand). Absent touch noted in the areas of light, pain, stereognosis. Report of some sense of touch noted w/ vibration elbow --> distal UE. Report of painful response to water to hand in morning. Short Term Goals 1. Patient will present with improved fine motor coordination of the affected upper extremity; this will be evidenced by Rod's ability to place 8 medium/large sized pegs in pegboard with the left hand, with therapist placing 1 peg at a time in the palm of the left hand. 09/22/20= GOAL UPGRADED 2. Patient will present with improved fine motor and bimanual coordination of the upper extremities, as evidenced by patient's self- report of ability to manage personal zippers of UB clothing items with increased time while seated on stable surface on a daily basis. 09/22 = 25% met; STILL WORKING ON THIS GOAL 3. 0-90 degrees active L sh abduction. 09/22/20 = GOAL UPGRADED GOALS MET Actively participated in standardized digit/professor criminal justice strength testing. Lathe Set Up Operator/Lateral Nichols Pinch. *MET 10/21/19 Opposed L thumb to second digit pad 4 out of 5 trials w/ increased effort/ concentration. *MET 11/17/19 0-60 degrees active left forearm supination. *MET = 0-75 degrees Will average 15.0+ pounds of force with L professor criminal justice dynamometer II strength testing. *MET 12/09= avg 22.0# of force Opposed L thumb to each digit pad x 2 out of 2 cycles. *MET 12/24/19 0-30 degrees active left wrist extension. *MET 01/13/20. 0-40 w/ fingers flexed Actively utilizing the left hand with functional transfers . *MET 01/13/20 Actively participated in additional standardized assessments. *MET 01/13/20 Flipped over 10 various sized coins w/ S without use of edge of TT. *MET 06/16/20 Flipped five, 3 x 5 index cards, within 2 SD below the mean (within 11.88 seconds) ( Peter subtest). *MET 07/05/20; 10.9 sec Stacked 4 wood checkers w/ S. *MET 07/05/20 Place 5+ small/medium/large pegs in pegboard w/ L hand. Transferred TT to pegboard. * MET 09/22/20 0-80 degrees active L sh abd. *MET 09/22/20 Clearance Representative Goals 1. Patient will be modified independent with execution of UE home exercise program utilizing provided written and visual instructions from therapist with support of family and caregivers. 09/22/20 = 50% met 2. Patient will be able to don upper body clothing items (e.g., donning of shirt/jacket ) with modified independence utilizing compensatory strategies on a daily basis based on spouse/patient verbal report, as observed over a 7- day period of time. 09/22/20= 75% met; set-up from 3. Patient will present with improved bimanual coordination of the upper extremities, as evidenced by patient and patient's spouse's self-report of ability to manage personal reading materials, utilizing compensatory strategies/AE if/ as needed, with increased time while seated on stable surface on a daily basis with modified independence. 09/22/20 = 50% met 4. Patient will present with improved functional independence/motor coordination of the left upper extremity; this will be evidenced by patient and spouse's verbal report of patient's ability to manage personal cell phone utilizing compensatory strategies/AE if/ as needed over short periods of time (5 to 10 minutes in length) on daily basis with the left hand. 09/22/20= 50% met GOALS MET Per , Rod is able to doff all UB clothing items w/ mod I on daily basis. *MET 12/30/19 - Treatment 6 Descriptor Eye-hand coordination. 5 Descriptor Bimanual coordination. 4 Descriptor Neuro re-education. 3 Descriptor Manual to address muscular tightness. Exercises 4 Descriptor ER. Upright seated. 3 sets of 10 repetitions. 3# DB. 3 Descriptor 5.5# spherical ball transfer. EOM <-> TT. 1x10. 1 Descriptor HEP/POC. Thelma, Rod's , was present throughout treatment session. Discussed progress that has been made over the last certification period. Instructed to use modified approach to manipulation of reading materials; recommended utilizing electronic device as an alternative to manual manipulation of newspaper. Encouragement of proximal stabilization at TT (elbow level). - Assessment Assessment of Improvement Rod has made progress over the last certification period relative to L UE AROM, object manipulation abilities, attention to the L side of space and L UE, as well as improved functional abilities of the L hand. This is evidenced by Rod meeting goals in these areas, as well as increased insight and desire to improve upon the overall function of his left hand. Given time constraints therapist did not examine sensation on this date; will complete to meet concerns of Thelma/Rod's . Rod continues to present with L sided neglect, impaired vision, impaired L UE motor planning, decreased orientation to midline, impaired L UE sensation, and decreased functional independence. Thus, continued outpatient OT is recommended to maximize patient's success in day-to-day life with active incorporation of the L UE. Home Exercise Program Please refer to treatment section of note for specific details. - Plan Therapy Recommendations Continue with Current Program, Advance per Rehabilitation Protocol Additional Therapy Recommendations Complete Progress Note at time of next treatment session Comment 12 weeks Frequency of Treatment Once a Week Therapeutic Contents Active Range of Motion, Adaptive Equipment Education, Client Education,Cognitive Skills Development,Functional Activities,Home Exercise Program,Joint Protection, Manual Therapy,Education, Neurodevelopment Treatment, Neuromuscular Re-Education, Self-Care,Stretching/ Flexibility Activities, Therapeutic Activities, Therapeutic Exercises, Modalities,Sensory Re- education Modalities As Needed,As Prescribed Types of Modalities E-Stim,Functional Stimulation (FES),T.E.N. Stimulation, Ultrasound Electronically Signed by: Paula Carvajal OT 09/26/20 1228 Please Sign and Return: I have reviewed this Plan of Care and certify that the skilled therapy services above are required to meet the patient?s needs. Physician Signature Date Printed Name and Credentials Clinical Instructor Signature Printed Name and Credentials
--- NOTE | 2020-09-29 16:02 | OT.OP.TRT ---
Visit Care Team Role Provider Type Yesy Cortes MD Attending Provider Physician Primary Care Provider Specialty: Internal Medicine [address]: [address] [place] [address], [id number] Email: [email or web address] Treatment Note OT Outpatient Treatment Note - Adult Start: 09/29/19 07:33 Freq: Status: Active Protocol: Document 09/29/20 15:48 AMS (Rec: 09/29/20 16:01 AMS [id number]) OT Outpatient Adult Treatment Note Session Time Visit Start Time 13:30 Visit Stop Time 14:25 Total Visit Minutes 55 Visit Information Visit Number 12/29 Plan of Care Dates 09/22/20-12/15/20 Insurance Information Medicare Setting Treatment Setting Outpatient Care Visit Type Note Type Progress Note General Information General Information 70-yr-old male s/p 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 The pt was brought to [facility] ED where CT head revealed hemorrhage, then transferred via helicopter to [facility]. Pt underwent craniotomy on 04/16. He transferred to [facility] for rehab on 05/05 , where he remained until returning to [facility] 06/26 for surgical replacement of right side skull. He transferred from [facility] to [facility] for acute inpatient rehab from 06/30 - 07/18, returning home with Home Health PT/OT/ST until 09/12. - Subjective Identification Type Name Identification Reconciled With Medical Record Observations April, Rod's , accompanied him to OT treatment session. He was able to put on his deodarant by himself per April . He only dropped 2 mushrooms . He was able to hold onto the mushroom with his left hand and chop with the other hand. I practiced having my elbow on the table per Rod with reading. I need a bigger table. Patient/Caregiver Compliance with Home Excellent Exercise Program Comment w/ caregiver/family support - Objective Objective Measurements Object transfer R hand thumb/ 3rd digit. Hyperextension of DIP joints of 3rd, 4th and 5th digits of the L hand; hyperextension observed w/ object retrieval given digits are extended despite size of objects being manipulated. Please refer to below for progress towards meeting established OT goals. Functional abilities as of = min phys assist w/ donning UB/LB dressing ( however, is mod I w/ socks/ shoes); mod I w/ toileting hygiene, application of deodarant, and managing personal glasses. 01/06/20= Correctly differentiated between L vs R w/ laterality activity 5 out of 10 trials. 12/16/19= Impaired sensation of L UE; absent sensation of distal UE (volar/dorsal surfaces of the hand). Absent touch noted in the areas of light, pain, stereognosis. Report of some sense of touch noted w/ vibration elbow --> distal UE. Report of painful response to water to hand in morning. Short Term Goals 1. Patient will present with improved fine motor coordination of the affected upper extremity; this will be evidenced by Gerd's ability to place 8 medium/large sized pegs in pegboard with the left hand, with therapist placing 1 peg at a time in the palm of the left hand. 09/29/20= 50% met 2. Patient will present with improved fine motor and bimanual coordination of the upper extremities, as evidenced by patient's self- report of ability to manage personal zippers of UB clothing items with increased time while seated on stable surface on a daily basis. 10/08 = 25% met; STILL WORKING ON 3. 0-90 degrees active L sh abduction. 09/22/20 = GOAL UPGRADED GOALS MET Actively participated in standardized digit/corrections lieutenant strength testing. Combining Machine Operator/Lateral Nichols Pinch. *MET 10/21/19 Opposed L thumb to second digit pad 4 out of 5 trials w/ increased effort/ concentration. *MET 11/17/19 0-60 degrees active left forearm supination. *MET = 0-75 degrees Will average 15.0+ pounds of force with L corrections lieutenant dynamometer II strength testing. *MET 12/09= avg 22.0# of force Opposed L thumb to each digit pad x 2 out of 2 cycles. *MET 12/24/19 0-30 degrees active left wrist extension. *MET 01/13/20. 0-40 w/ fingers flexed Actively utilizing the left hand with functional transfers . *MET 01/13/20 Actively participated in additional standardized assessments. *MET 01/13/20 Flipped over 10 various sized coins w/ S without use of edge of TT. *MET 06/16/20 Flipped five, 3 x 5 index cards, within 2 SD below the mean (within 11.88 seconds) ( Peter subtest). *MET 07/05/20; 10.9 sec Stacked 4 wood checkers w/ S. *MET 07/05/20 Place 5+ small/medium/large pegs in pegboard w/ L hand. Transferred TT to pegboard. * MET 09/22/20 0-80 degrees active L sh abd. *MET 09/22/20 Mcc Goals 1. Patient will be modified independent with execution of UE home exercise program utilizing provided written and visual instructions from therapist with support of family and caregivers. = 50% met 2. Patient will be able to don upper body clothing items (e.g., donning of shirt/jacket ) with modified independence utilizing compensatory strategies on a daily basis based on spouse/patient verbal report, as observed over a 7- day period of time. 09/22/20= 75% met; set-up from 3. Patient will present with improved bimanual coordination of the upper extremities, as evidenced by patient and patient's spouse's self-report of ability to manage personal reading materials, utilizing compensatory strategies/AE if/ as needed, with increased time while seated on stable surface on a daily basis with modified independence. 09/22/20 = 50% met 4. Patient will present with improved functional independence/motor coordination of the left upper extremity; this will be evidenced by patient and spouse's verbal report of patient's ability to manage personal cell phone utilizing compensatory strategies/AE if/ as needed over short periods of time (5 to 10 minutes in length) on daily basis with the left hand. 09/22/20= 50% met GOALS MET Per , Gerd is able to doff all UB clothing items w/ mod I on daily basis. *MET 12/30/19 - Treatment 6 Descriptor Eye-hand coordination. 5 Descriptor Bimanual coordination. 4 Descriptor Neuro re-education. 3 Descriptor Manual to address muscular tightness. Exercises 5 Descriptor Arm pulleys. Seated in w/c. x 3 minutes. 4 Descriptor ER. Upright seated. 3 sets of 10 repetitions. 3# DB. 3 Descriptor 5.5# spherical ball transfer. EOM <-> TT. 1x10. 2 Descriptor UEB. x 5 minutes. x 3 min L UE only. Seated in w/c. Forwards <-> Backwards alternating. 1 Descriptor HEP/POC. Thelma, Rod's , was present throughout treatment session. Discussed progress that has been made over the last certification period. Instructed to use modified approach to manipulation of reading materials; recommended utilizing electronic device as an alternative to manual manipulation of newspaper. Encouragement of proximal stabilization at TT (elbow level). - Assessment Assessment of Improvement Progressed to translation w/ pegs (medium and large size pegs). Education was provided re: separation of the 2 sides of the hand to support functional object manipulation . Based on feedback had patient practice utilizing clinic's pulleys to support carry-over given that treatment is 1 x per week and Rod reportedly has not been utilizing personal pulleys in the home. Given time constraints and need for progression of obj manipulation abilities/grasp patterns and addressing use of pulleys, therapist did not examine sensation; will complete to meet concerns of Thelma/Rdo's . Rod continues to present with L sided neglect, impaired vision, impaired L UE motor planning, decreased orientation to midline, impaired L UE sensation, and decreased functional independence. Thus, continued outpatient OT is recommended to maximize patient's success in day-to-day life with active incorporation of the L UE. Home Exercise Program Please refer to treatment section of note for specific details. - Plan Therapy Recommendations Continue with Current Program, Advance per Rehabilitation Protocol
--- NOTE | 2020-10-06 15:51 | OT.OP.TRT ---
Visit Care Team Role Provider Type Yesy Cortes MD Attending Provider Physician Primary Care Provider Specialty: Internal Medicine Address: [address] [place] [address], [id number] Email: [email or web address] Occupational Therapy Treatment Note OT Outpatient Treatment Note - Adult Start: 09/29/19 07:33 Freq: Status: Active Protocol: Document 10/06/20 15:40 AMS (Rec: 10/06/20 15:51 AMS [id number]) OT Outpatient Adult Treatment Note Session Time Visit Start Time 13:30 Visit Stop Time 14:25 Visit Information Visit Number 01/26 Plan of Care Dates 09/22/20-12/15/20 Insurance Information Medicare Setting Treatment Setting Outpatient Care Visit Type Note Type Treatment Note General Information General Information 70-yr-old male s/p 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 The pt was brought to [facility] ED where CT head revealed hemorrhage, then transferred via helicopter to [facility] [place]. Pt underwent craniotomy on 04/16. He transferred to [facility] for rehab on 05/05 , where he remained until returning to [facility] 06/26 for surgical replacement of right side skull. He transferred from [facility] to [facility] for acute inpatient rehab from 06/30 - 07/18, returning home with Home Health PT/OT/ST until 09/12. - Subjective Identification Type Name Identification Reconciled With Medical Record Observations April, Rod's , accompanied him to OT treatment session. He has been using the pulleys at home per April and Gerd. I have a hard time holding onto larger things with this hand per Gerd. Patient/Caregiver Compliance with Home Excellent Exercise Program Comment w/ caregiver/family support - Objective Objective Measurements Object transfer R hand thumb/ 3rd digit. Hyperextension of DIP joints of 3rd, 4th and 5th digits of the L hand; hyperextension observed w/ object retrieval given digits are extended despite size of objects being manipulated. Please refer to below for progress towards meeting established OT goals. Functional abilities as of = min phys assist w/ donning UB/LB dressing ( however, is mod I w/ socks/ shoes); mod I w/ toileting hygiene, application of deodarant, and managing personal glasses. 01/06/20= Correctly differentiated between L vs R w/ laterality activity 5 out of 10 trials. 12/16/19= Impaired sensation of L UE; absent sensation of distal UE (volar/dorsal surfaces of the hand). Absent touch noted in the areas of light, pain, stereognosis. Report of some sense of touch noted w/ vibration elbow --> distal UE. Report of painful response to water to hand in morning. Short Term Goals 1. Patient will present with improved fine motor coordination of the affected upper extremity; this will be evidenced by Gerd's ability to place 8 medium/large sized pegs in pegboard with the left hand, with therapist placing 1 peg at a time in the palm of the left hand. 10/06/20= 50% met 2. Patient will present with improved fine motor and bimanual coordination of the upper extremities, as evidenced by patient's self- report of ability to manage personal zippers of UB clothing items with increased time while seated on stable surface on a daily basis. 10/08 = 25% met; STILL WORKING ON 3. 0-90 degrees active L sh abduction. 09/22/20 = GOAL UPGRADED GOALS MET Actively participated in standardized digit/card lacer jacquard strength testing. Bioinformatics Engineer/Lateral Nichols Pinch. *MET 10/21/19 Opposed L thumb to second digit pad 4 out of 5 trials w/ increased effort/ concentration. *MET 11/17/19 0-60 degrees active left forearm supination. *MET = 0-75 degrees Will average 15.0+ pounds of force with L card lacer jacquard dynamometer II strength testing. *MET 12/09= avg 22.0# of force Opposed L thumb to each digit pad x 2 out of 2 cycles. *MET 12/24/19 0-30 degrees active left wrist extension. *MET 01/13/20. 0-40 w/ fingers flexed Actively utilizing the left hand with functional transfers . *MET 01/13/20 Actively participated in additional standardized assessments. *MET 01/13/20 Flipped over 10 various sized coins w/ S without use of edge of TT. *MET 06/16/20 Flipped five, 3 x 5 index cards, within 2 SD below the mean (within 11.88 seconds) ( Peter subtest). *MET 07/05/20; 10.9 sec Stacked 4 wood checkers w/ S. *MET 07/05/20 Place 5+ small/medium/large pegs in pegboard w/ L hand. Transferred TT to pegboard. * MET 09/22/20 0-80 degrees active L sh abd. *MET 09/22/20 Diamond Cleaner Goals 1. Patient will be modified independent with execution of UE home exercise program utilizing provided written and visual instructions from therapist with support of family and caregivers. = 50% met 2. Patient will be able to don upper body clothing items (e.g., donning of shirt/jacket ) with modified independence utilizing compensatory strategies on a daily basis based on spouse/patient verbal report, as observed over a 7- day period of time. 09/22/20= 75% met; set-up from 3. Patient will present with improved bimanual coordination of the upper extremities, as evidenced by patient and patient's spouse's self-report of ability to manage personal reading materials, utilizing compensatory strategies/AE if/ as needed, with increased time while seated on stable surface on a daily basis with modified independence. 09/22/20 = 50% met 4. Patient will present with improved functional independence/motor coordination of the left upper extremity; this will be evidenced by patient and spouse's verbal report of patient's ability to manage personal cell phone utilizing compensatory strategies/AE if/ as needed over short periods of time (5 to 10 minutes in length) on daily basis with the left hand. 09/22/20= 50% met GOALS MET Per , Gerd is able to doff all UB clothing items w/ mod I on daily basis. *MET 12/30/19 - Treatment 6 Descriptor Eye-hand coordination. 5 Descriptor Bimanual coordination. 4 Descriptor Neuro re-education. 3 Descriptor Object manipulation. Translation of object palm --> fingertip. Rotation of small spherical object in palm w/ visual point of focus. Exercises 6 Descriptor 2# weighted cane focus L hand side. 1x10. 5 Descriptor Arm pulleys. Seated in w/c. x 3 minutes. 4 Descriptor Pull to stand w/ parallel bar. Frontal plane L hand only. 1x10. Bar positioned to L of body. Pull to stand. 1x10. Grasping parallel bar positioned to L of body. Active elbow flexion <-> extension. 1x10. 3 Descriptor 5.5# spherical ball transfer. EOM <-> TT. 1x10. 2 Descriptor UEB. x 5 minutes. x 3 min L UE only. Seated in w/c. Forwards <-> Backwards alternating. 1 Descriptor HEP/POC. Thelma, Rod's , was present throughout treatment session. No additional recommendations were made on this treatment date. - Assessment Assessment of Improvement Attempted to progress to 6.6# weighted sphericall ball; able to execute x 2 reps only. Thumb add tightness L; provided manual release to thumb adductor. Tendency towards hyperextension of the MPJ w/ larger object manipulation. Impaired motor planning; attempting to work on isolated thumb coordination /exercises - positive response /increased success w/ incorporation of an object (as observed w/ small foam goal ball w/ visual reference w/ rotational component). Able to tolerate weight bearing/ weight shifting at parallel bar; recommended encouraging use of the L hand w/ bed mobility as able/tolerated. Therapist did not examine sensation; will complete to meet concerns of Thelma/Rod's . Rod continues to present with L sided neglect, impaired vision, impaired L UE motor planning, decreased orientation to midline, impaired L UE sensation, and decreased functional independence. Thus, continued outpatient OT is recommended to maximize patient's success in day-to-day life with active incorporation of the L UE. Home Exercise Program Please refer to treatment section of note for specific details. - Plan Therapy Recommendations Continue with Current Program, Advance per Rehabilitation Protocol
--- NOTE | 2020-10-13 16:14 | OT.OP.TRT ---
Visit Care Team Role Provider Type Yesy Cortes MD Attending Provider Physician Primary Care Provider Specialty: Internal Medicine [address]: [address] [place] [address], [id number] Email: [email or web address] Treatment Note OT Outpatient Treatment Note - Adult Start: 09/29/19 07:33 Freq: Status: Active Protocol: Document 10/13/20 15:50 AMS (Rec: 10/13/20 16:14 AMS [id number]) OT Outpatient Adult Treatment Note Session Time Visit Start Time 13:30 Visit Stop Time 14:20 Total Visit Minutes 50 Visit Information Visit Number 02/26 Plan of Care Dates 09/22/20-12/15/20 Insurance Information Medicare Setting Treatment Setting Outpatient Care Visit Type Note Type Treatment Note General Information General Information 70-yr-old male s/p 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 The pt was brought [facility] ED where CT head revealed hemorrhage, then transferred via helicopter to [facility]. Pt underwent craniotomy on 04/16. He transferred to [facility] for rehab on 05/05 , where he remained until returning to [facility] 06/26 for surgical replacement of right side skull. He transferred from [facility] to [facility] for acute inpatient rehab from 06/30 - 07/18, returning home with Home Health PT/OT/ST until 09/12. - Subjective Identification Type Name Identification Reconciled With Medical Record Observations April, Rod's , accompanied him to OT treatment session. Patient/Caregiver Compliance with Home Excellent Exercise Program Comment w/ caregiver/family support - Objective Objective Measurements Object transfer R hand thumb/ 3rd digit. Hyperextension of DIP joints of 3rd, 4th and 5th digits of the L hand; hyperextension observed w/ object retrieval given digits are extended despite size of objects being manipulated. Please refer to below for progress towards meeting established OT goals. Functional abilities as of = min phys assist w/ donning UB/LB dressing ( however, is mod I w/ socks/ shoes); mod I w/ toileting hygiene, application of deodarant, and managing personal glasses. 01/06/20= Correctly differentiated between L vs R w/ laterality activity 5 out of 10 trials. 12/16/19= Impaired sensation of L UE; absent sensation of distal UE (volar/dorsal surfaces of the hand). Absent touch noted in the areas of light, pain, stereognosis. Report of some sense of touch noted w/ vibration elbow --> distal UE. Report of painful response to water to hand in morning. Short Term Goals 1. Patient will present with improved fine motor coordination of the affected upper extremity; this will be evidenced by Gerd's ability to place 8 medium/large sized pegs in pegboard with the left hand, with therapist placing 1 peg at a time in the palm of the left hand. 10/13/20= 75% met 2. Patient will present with improved fine motor and bimanual coordination of the upper extremities, as evidenced by patient's self- report of ability to manage personal zippers of UB clothing items with increased time while seated on stable surface on a daily basis. 10/08 = 25% met; STILL WORKING ON 3. 0-90 degrees active L sh abduction. 10/13/20 = 25% met GOALS MET Actively participated in standardized digit/pv design and installation technician strength testing. Assistant Fitness Manager/Lateral Nichols Pinch. *MET 10/21/19 Opposed L thumb to second digit pad 4 out of 5 trials w/ increased effort/ concentration. *MET 11/17/19 0-60 degrees active left forearm supination. *MET = 0-75 degrees Will average 15.0+ pounds of force with L pv design and installation technician dynamometer II strength testing. *MET 12/09= avg 22.0# of force Opposed L thumb to each digit pad x 2 out of 2 cycles. *MET 12/24/19 0-30 degrees active left wrist extension. *MET 01/13/20. 0-40 w/ fingers flexed Actively utilizing the left hand with functional transfers . *MET 01/13/20 Actively participated in additional standardized assessments. *MET 01/13/20 Flipped over 10 various sized coins w/ S without use of edge of TT. *MET 06/16/20 Flipped five, 3 x 5 index cards, within 2 SD below the mean (within 11.88 seconds) ( Peter subtest). *MET 07/05/20; 10.9 sec Stacked 4 wood checkers w/ S. *MET 07/05/20 Place 5+ small/medium/large pegs in pegboard w/ L hand. Transferred TT to pegboard. * MET 09/22/20 0-80 degrees active L sh abd. *MET 09/22/20 Railway Track Worker Goals 1. Patient will be modified independent with execution of UE home exercise program utilizing provided written and visual instructions from therapist with support of family and caregivers. = 50% met 2. Patient will be able to don upper body clothing items (e.g., donning of shirt/jacket ) with modified independence utilizing compensatory strategies on a daily basis based on spouse/patient verbal report, as observed over a 7- day period of time. 09/22/20= 75% met; set-up from 3. Patient will present with improved bimanual coordination of the upper extremities, as evidenced by patient and patient's spouse's self-report of ability to manage personal reading materials, utilizing compensatory strategies/AE if/ as needed, with increased time while seated on stable surface on a daily basis with modified independence. 09/22/20 = 50% met 4. Patient will present with improved functional independence/motor coordination of the left upper extremity; this will be evidenced by patient and spouse's verbal report of patient's ability to manage personal cell phone utilizing compensatory strategies/AE if/ as needed over short periods of time (5 to 10 minutes in length) on daily basis with the left hand. 09/22/20= 50% met GOALS MET Per , Gerd is able to doff all UB clothing items w/ mod I on daily basis. *MET 12/30/19 - Treatment 6 Descriptor Eye-hand coordination. 5 Descriptor Bimanual coordination. 4 Descriptor Neuro re-education. 3 Descriptor Object manipulation. Translation of object palm --> fingertips. Seated. Standing. Pegboard obj manipulation w/ trunk rotation to the L. Exercises 13 Descriptor ROM/Assistant Fitness Manager Strength 12 Descriptor Spherical ball grasp/Hand strengthening 4.4# spherical ball 1x10 Resistent clothespins 2# to 6# of force resistance Complexity Upgraded 11 Descriptor Shoulder Strengthening. ER. Sitting. Side Left Sets 3 Repetitions 10 Resistance 2# DB (x 2 sets); 3# DB (x 1 set) 10 Descriptor UEB. Seated. Height 1 x 2 min. Height 2 x 1 min. Body Position Seated in w/c Time x4 min Complexity Upgraded 9 Descriptor Shoulder Strengthening. Seated . Sh abd. Sh flex. Side Left Body Position Sitting Sets 3 Repetitions 10 Resistance 2# DB (2 sets); 3# DB 1 set 6 Descriptor 2# weighted cane focus L hand side. 1x10. 5 Descriptor Arm pulleys. Seated in w/c. x 3 minutes. 4 Descriptor Pull to stand w/ parallel bar. Frontal plane L hand only. 1x10. Bar positioned to L of body. Pull to stand. 1x10. Grasping parallel bar positioned to L of body. Active elbow flexion <-> extension. 1x10. 3 Descriptor 5.5# spherical ball transfer. EOM <-> TT. 1x10. 2 Descriptor ROM/Stretches. Supine. Pec stretch. 30 sec. Supine. Both hands behind head . 30 sec. 1 Descriptor HEP/POC. Thelma, Rod's , was present throughout treatment session. Reviewed importance of ROM/stretches. - Assessment Assessment of Improvement Alternated between UE strengthening exercises, obj manipulation, and ROM/ stretches. Patient did c/o discomfort on the right side w / trunk rotation in standing w / obj manipulation. Tightness L side; tightness upper trap, levator, pec, rhomboids, lat. Need to encourage L scapular mobility. Impaired posture; tendency towards rounded shoulders neck flexion and chin protrusion. Need to continue to encourage carry- over of ROM/stretches into the home. Advancing activities as able relative to object manipulation/bimanual coordination to support functional abilities. Therapist did not examine sensation; will complete to meet concerns of Thelma/Rod's . Rod continues to present with L sided neglect, impaired vision, impaired L UE motor planning, decreased orientation to midline, impaired L UE sensation, and decreased functional independence. Thus, continued outpatient OT is recommended to maximize patient's success in day-to-day life with active incorporation of the L UE. Home Exercise Program Please refer to treatment section of note for specific details. - Plan Therapy Recommendations Continue with Current Program, Advance per Rehabilitation Protocol
--- NOTE | 2020-10-25 13:05 | OT.OP.TRT ---
Visit Care Team Role Provider Type Yesy Cortes MD Attending Provider Physician Primary Care Provider Specialty: Internal Medicine [address]: [address] [place] [address], [id number] Email: [email or web address] Occupational Therapy Treatment Note OT Outpatient Treatment Note - Adult Start: 09/29/19 07:33 Freq: Status: Active Protocol: Document 10/25/20 12:55 AMS (Rec: 10/25/20 13:05 AMS [id number]) OT Outpatient Adult Treatment Note Session Time Visit Start Time 10:30 Visit Stop Time 11:20 Total Visit Minutes 50 Visit Information Visit Number 03/28 Plan of Care Dates 09/22/20-12/15/20 Insurance Information Medicare Setting Treatment Setting Outpatient Care Visit Type Note Type Treatment Note General Information General Information 70-yr-old male s/p 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 The pt was brought to [facility] ED where CT head revealed hemorrhage, then transferred via helicopter to [facility]. Pt underwent craniotomy on 04/16. He transferred to [facility] for rehab on 05/05 , where he remained until returning to [facility] 06/26 for surgical replacement of right side skull. He transferred from [facility] to [facility] for acute inpatient rehab from 06/30 - 07/18, returning home with Home Health PT/OT/ST until 09/12. - Subjective Identification Type Name Identification Reconciled With Medical Record Observations April, Rod's , accompanied him to OT treatment session. We made a slight change to our schedule. We will be going to every other week to limit exposure per April. Felipe has been saying that he is swinging his arm more with walking which is good per April. Patient/Caregiver Compliance with Home Excellent Exercise Program Comment w/ caregiver/family support - Objective Objective Measurements Object transfer R hand thumb/ 3rd digit. Hyperextension of DIP joints of 3rd, 4th and 5th digits of the L hand; hyperextension observed w/ object retrieval given digits are extended despite size of objects being manipulated. Please refer to below for progress towards meeting established OT goals. Functional abilities as of = min phys assist w/ donning UB/LB dressing ( however, is mod I w/ socks/ shoes); mod I w/ toileting hygiene, application of deodarant, and managing personal glasses. 01/06/20= Correctly differentiated between L vs R w/ laterality activity 5 out of 10 trials. 12/16/19= Impaired sensation of L UE; absent sensation of distal UE (volar/dorsal surfaces of the hand). Absent touch noted in the areas of light, pain, stereognosis. Report of some sense of touch noted w/ vibration elbow --> distal UE. Report of painful response to water to hand in morning. Short Term Goals 1. Patient will present with improved fine motor coordination of the affected upper extremity; this will be evidenced by Gerd's ability to place 8 small sized pegs in pegboard with the left hand, with therapist placing 1 peg at a time in the palm of the left hand. 10/25/20 = GOAL UPGRADED 2. Patient will present with improved fine motor and bimanual coordination of the upper extremities, as evidenced by patient's self- report of ability to manage personal zippers of UB clothing items with increased time while seated on stable surface on a daily basis. 10/08 = 25% met; STILL WORKING ON 3. 0-90 degrees active L sh abduction. 10/13/20 = 25% met GOALS MET Actively participated in standardized digit/desktop support engineer strength testing. Surveying Or Spatial Science Technician/Lateral Nichols Pinch. *MET 10/21/19 Opposed L thumb to second digit pad 4 out of 5 trials w/ increased effort/ concentration. *MET 11/17/19 0-60 degrees active left forearm supination. *MET = 0-75 degrees Will average 15.0+ pounds of force with L desktop support engineer dynamometer II strength testing. *MET 12/09= avg 22.0# of force Opposed L thumb to each digit pad x 2 out of 2 cycles. *MET 12/24/19 0-30 degrees active left wrist extension. *MET 01/13/20. 0-40 w/ fingers flexed Actively utilizing the left hand with functional transfers . *MET 01/13/20 Actively participated in additional standardized assessments. *MET 01/13/20 Flipped over 10 various sized coins w/ S without use of edge of TT. *MET 06/16/20 Flipped five, 3 x 5 index cards, within 2 SD below the mean (within 11.88 seconds) ( Peter subtest). *MET 07/05/20; 10.9 sec Stacked 4 wood checkers w/ S. *MET 07/05/20 Placed 5+ small/medium/large pegs in pegboard w/ L hand. Transferred TT to pegboard. * MET 09/22/20 0-80 degrees active L sh abd. *MET 09/22/20 Place 8+ medium/large sized pegs in pegboard w/ L hand, w/ 1 peg placed at a time in the palm of L hand. *MET 10/25/20 Skilled Nursing Goals 1. Patient will be modified independent with execution of UE home exercise program utilizing provided written and visual instructions from therapist with support of family and caregivers. = 50% met 2. Patient will be able to don upper body clothing items (e.g., donning of shirt/jacket ) with modified independence utilizing compensatory strategies on a daily basis based on spouse/patient verbal report, as observed over a 7- day period of time. 10/25/20= 75% met; set-up from - completed w/ t-shirt for first time 3. Patient will present with improved bimanual coordination of the upper extremities, as evidenced by patient and patient's spouse's self-report of ability to manage personal reading materials, utilizing compensatory strategies/AE if/ as needed, with increased time while seated on stable surface on a daily basis with modified independence. 09/22/20 = 50% met 4. Patient will present with improved functional independence/motor coordination of the left upper extremity; this will be evidenced by patient and spouse's verbal report of patient's ability to manage personal cell phone utilizing compensatory strategies/AE if/ as needed over short periods of time (5 to 10 minutes in length) on daily basis with the left hand. 09/22/20= 50% met GOALS MET Per , Gerd is able to doff all UB clothing items w/ mod I on daily basis. *MET 12/30/19 - Treatment 6 Descriptor Eye-hand coordination. 5 Descriptor Bimanual coordination. 4 Descriptor Neuro re-education. 3 Descriptor Object manipulation. Translation of object palm --> fingertips. Small objects. Seated. Standing. Pegboard obj manipulation w/ trunk rotation to the L. Sherwood bags/Large/ Medium Rings. Exercises 11 Descriptor Shoulder Strengthening. ER. Sitting. Side Left Sets 3 Repetitions 10 Resistance 2# DB (x 2 sets); 3# DB (x 1 set) 9 Descriptor Shoulder Strengthening. Seated . Sh abd. Sh flex. Side Left Body Position Sitting Sets 3 Repetitions 10 Resistance 2# DB (2 sets); 3# DB 1 set 5 Descriptor Arm pulleys. Seated in w/c. x 3 minutes. 2 Descriptor ROM/Stretches. Supine. Pec stretch. 30 sec. Supine. Both hands behind head . 30 sec. 1 Descriptor HEP/POC. Thelma, Rod's , was present throughout treatment session. Reviewed importance of ROM/stretches. Encouraged use of L hand w/ finger foods for self-feeding (e.g., pretzels) to support functional incorporation of the L hand. - Assessment Assessment of Improvement Couple is reducing frequency for outpatient treatment to reduce risk of exposure given rising COVID numbers. Improving in-hand translation w/ medium sized objects placed in palm of left hand. Met goal in this area and progressed to small object manipulation utilizing compensatory technique to bring small object distal to palm to support thumb translation. Patient was able to complete - however, frustration noted given inconsistency w/ ability to execute the skill. Improving functional independence; able to manage personal t-shirt for first time. Progressed standing activities w/ object manipulation as well on this date to smaller objects and increased number of tasks in standing. Therapist did not examine sensation; will complete to meet concerns of Thelma/Rod's . PLAN: increase tasks completed in standing; work on translation/ smaller objects; bimanual coordination; importance of carry-over of stretches and use of pulleys. Gerd continues to present with L sided neglect, impaired vision, impaired L UE motor planning, decreased orientation to midline, impaired L UE sensation, and decreased functional independence. Thus, continued outpatient OT is recommended to maximize patient's success in day-to-day life with active incorporation of the L UE. Home Exercise Program Please refer to treatment section of note for specific details. - Plan Therapy Recommendations Continue with Current Program, Advance per Rehabilitation Protocol
--- NOTE | 2020-11-08 15:34 | OT.OP.TRT ---
Visit Care Team Role Provider Type Yesy Cortes MD Attending Provider Physician Primary Care Provider Specialty: Internal Medicine Address: [address] [place] [address], [id number] Email: [email or web address] Occupational Therapy Treatment Note OT Outpatient Treatment Note - Adult Start: 09/29/19 07:33 Freq: Status: Active Protocol: Document 11/08/20 15:20 AMS (Rec: 11/08/20 15:34 AMS [id number]) OT Outpatient Adult Treatment Note Session Time Visit Start Time 10:30 Visit Stop Time 11:20 Total Visit Minutes 50 Visit Information Visit Number 04/28 Plan of Care Dates 09/22/20-12/15/20 Insurance Information Medicare Setting Treatment Setting Outpatient Care Visit Type Note Type Treatment Note General Information General Information 70-yr-old male s/p 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 The pt was brought to [facility] ED where CT head revealed hemorrhage, then transferred via helicopter to [facility]. Pt underwent craniotomy on 04/16. He transferred to [facility] for rehab on 05/05 , where he remained until returning to [facility] 06/26 for surgical replacement of right side skull. He transferred from [facility] to [facility] for acute inpatient rehab from 06/30 - 07/18, returning home with Home Health PT/OT/ST until 09/12. - Subjective Identification Type Name Identification Reconciled With Medical Record Observations April, Rod's , accompanied him to OT treatment session. He has been using that hand a lot per April. Patient/Caregiver Compliance with Home Excellent Exercise Program Comment w/ caregiver/family support - Objective Objective Measurements Object transfer R hand thumb/ 3rd digit. Hyperextension of DIP joints of 3rd, 4th and 5th digits of the L hand; hyperextension observed w/ object retrieval given digits are extended despite size of objects being manipulated. Please refer to below for progress towards meeting established OT goals. Functional abilities as of = min phys assist w/ donning UB/LB dressing ( however, is mod I w/ socks/ shoes); mod I w/ toileting hygiene, application of deodarant, and managing personal glasses. 01/06/20= Correctly differentiated between L vs R w/ laterality activity 5 out of 10 trials. 12/16/19= Impaired sensation of L UE; absent sensation of distal UE (volar/dorsal surfaces of the hand). Absent touch noted in the areas of light, pain, stereognosis. Report of some sense of touch noted w/ vibration elbow --> distal UE. Report of painful response to water to hand in morning. Short Term Goals 1. Patient will present with improved fine motor coordination of the affected upper extremity; this will be evidenced by Gerd's ability to place 8 small sized pegs in pegboard with the left hand, with therapist placing 1 peg at a time in the palm of the left hand. 11/08/20 = 50% met 2. Patient will present with improved fine motor and bimanual coordination of the upper extremities, as evidenced by patient's self- report of ability to manage personal zippers of UB clothing items with increased time while seated on stable surface on a daily basis. 10/08 = 25% met; STILL WORKING ON 3. 0-90 degrees active L sh abduction. 10/13/20 = 25% met GOALS MET Actively participated in standardized digit/major gifts director strength testing. Fruit Grower/Lateral Nichols Pinch. *MET 10/21/19 Opposed L thumb to second digit pad 4 out of 5 trials w/ increased effort/ concentration. *MET 11/17/19 0-60 degrees active left forearm supination. *MET = 0-75 degrees Will average 15.0+ pounds of force with L major gifts director dynamometer II strength testing. *MET 12/09= avg 22.0# of force Opposed L thumb to each digit pad x 2 out of 2 cycles. *MET 12/24/19 0-30 degrees active left wrist extension. *MET 01/13/20. 0-40 w/ fingers flexed Actively utilizing the left hand with functional transfers . *MET 01/13/20 Actively participated in additional standardized assessments. *MET 01/13/20 Flipped over 10 various sized coins w/ S without use of edge of TT. *MET 06/16/20 Flipped five, 3 x 5 index cards, within 2 SD below the mean (within 11.88 seconds) ( Peter subtest). *MET 07/05/20; 10.9 sec Stacked 4 wood checkers w/ S. *MET 07/05/20 Placed 5+ small/medium/large pegs in pegboard w/ L hand. Transferred TT to pegboard. * MET 09/22/20 0-80 degrees active L sh abd. *MET 09/22/20 Place 8+ medium/large sized pegs in pegboard w/ L hand, w/ 1 peg placed at a time in the palm of L hand. *MET 10/25/20 Half-Way Goals 1. Patient will be modified independent with execution of UE home exercise program utilizing provided written and visual instructions from therapist with support of family and caregivers. = 50% met 2. Patient will be able to don upper body clothing items (e.g., donning of shirt/jacket ) with modified independence utilizing compensatory strategies on a daily basis based on spouse/patient verbal report, as observed over a 7- day period of time. 10/25/20= 75% met; set-up from - completed w/ t-shirt for first time 3. Patient will present with improved bimanual coordination of the upper extremities, as evidenced by patient and patient's spouse's self-report of ability to manage personal reading materials, utilizing compensatory strategies/AE if/ as needed, with increased time while seated on stable surface on a daily basis with modified independence. = 50% met 4. Patient will present with improved functional independence/motor coordination of the left upper extremity; this will be evidenced by patient and spouse's verbal report of patient's ability to manage personal cell phone utilizing compensatory strategies/AE if/ as needed over short periods of time (5 to 10 minutes in length) on daily basis with the left hand. 11/08/20= 50% met GOALS MET Per , Gerd is able to doff all UB clothing items w/ mod I on daily basis. *MET 12/30/19 - Treatment 6 Descriptor Eye-hand coordination. 5 Descriptor Bimanual coordination. 4 Descriptor Neuro re-education. 3 Descriptor Object manipulation. Translation of object palm --> fingertips. Small objects. Seated. Transferring of objects. With and without trunk rotation. TT --> location to left of body/ shoulder height. Seated/ Standing. Transferring of objects to L of body with 2# weight strapped to wrist. Exercises 1 Descriptor HEP/POC. Thelma, Rod's , was present throughout treatment session. Reviewed importance of ROM/stretches. Encouraged use of L hand w/ finger foods for self-feeding (e.g., pretzels) to support functional incorporation of the L hand. - Assessment Assessment of Improvement Decreased speed and efficiency w/ translation of smaller objects from palm --> fingertips despire use of compensatory technique to move small object distal to palm to support thumb translation. Initiated use of veclroed 2# weight around distal UE to support functional strengthening/activity tolerance. Decreased consistency w/ use of arm pulleys in the home; reportedly utilized 1 time since previous treatment session. Patient reports executing UE versus LE exercises when arm versus leg bothers him. PLAN: Focus on continuing to support functional incorporation of UE /hand in day-to-day life; re- inforcement of carry-over/ consistency w/ UE ROM exercises to maintain available shoulder ROM particularly w/ movement of UE to left of body Rod continues to present with L sided neglect, impaired vision, impaired L UE motor planning, decreased orientation to midline, impaired L UE sensation, and decreased functional independence. Thus, continued outpatient OT is recommended to maximize patient's success in day-to-day life with active incorporation of the L UE. Home Exercise Program Please refer to treatment section of note for specific details. - Plan Therapy Recommendations Continue with Current Program, Advance per Rehabilitation Protocol
--- NOTE | 2020-11-22 15:30 | OT.OP.TRT ---
Visit Care Team Role Provider Type Yesy Cortes MD Attending Provider Physician Primary Care Provider Specialty: Internal Medicine Address: [address] [place] [address], [id number] Email: [email or web address] Occupational Therapy Treatment Note OT Outpatient Treatment Note - Adult Start: 09/29/19 07:33 Freq: Status: Active Protocol: Document 11/22/20 15:30 AMS (Rec: 11/23/20 11:06 AMS [id number]) OT Outpatient Adult Treatment Note Session Time Visit Start Time 12:30 Visit Stop Time 13:20 Total Visit Minutes 50 Visit Information Visit Number 05/28 Plan of Care Dates 09/22/20-12/15/20 Insurance Information Medicare Setting Treatment Setting Outpatient Care Visit Type Note Type Treatment Note General Information General Information 70-yr-old male s/p 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 The pt was brought to [facility] ED where CT head revealed hemorrhage, then transferred via helicopter to [facility]. Pt underwent craniotomy on 04/16. He transferred to [facility] for rehab on 05/05 , where he remained until returning to [facility] 06/26 for surgical replacement of right side skull. He transferred from [facility] to [facility] for acute inpatient rehab from 06/30 - 07/18, returning home with Home Health PT/OT/ST until 09/12. - Subjective Identification Type Name Identification Reconciled With Medical Record Observations April, Rod's , accompanied him to OT treatment session. Rod reportedly has been inconsistent with UE exercises , including execution of UE DB strengthening exercises and use of arm pulleys. Patient/Caregiver Compliance with Home Excellent Exercise Program Comment w/ caregiver/family support - Objective Objective Measurements Object transfer R hand thumb/ 3rd digit. Hyperextension of DIP joints of 3rd, 4th and 5th digits of the L hand; hyperextension observed w/ object retrieval given digits are extended despite size of objects being manipulated. Please refer to below for progress towards meeting established OT goals. Functional abilities as of = min phys assist w/ donning UB/LB dressing ( however, is mod I w/ socks/ shoes); mod I w/ toileting hygiene, application of deodarant, and managing personal glasses. 01/06/20= Correctly differentiated between L vs R w/ laterality activity 5 out of 10 trials. 12/16/19= Impaired sensation of L UE; absent sensation of distal UE (volar/dorsal surfaces of the hand). Absent touch noted in the areas of light, pain, stereognosis. Report of some sense of touch noted w/ vibration elbow --> distal UE. Report of painful response to water to hand in morning. Short Term Goals 1. Patient will present with improved fine motor coordination of the affected upper extremity; this will be evidenced by Gerd's ability to place 8 small sized pegs in pegboard with the left hand, with therapist placing 1 peg at a time in the palm of the left hand. 11/22/20 = 50% met 2. Patient will present with improved fine motor and bimanual coordination of the upper extremities, as evidenced by patient's self- report of ability to manage personal zippers of UB clothing items with increased time while seated on stable surface on a daily basis. 10/08 = 25% met; STILL WORKING ON 3. 0-90 degrees active L sh abduction. 10/13/20 = 25% met GOALS MET Actively participated in standardized digit/psychologist social strength testing. Crew Dispatcher/Lateral Nichols Pinch. *MET 10/21/19 Opposed L thumb to second digit pad 4 out of 5 trials w/ increased effort/ concentration. *MET 11/17/19 0-60 degrees active left forearm supination. *MET = 0-75 degrees Will average 15.0+ pounds of force with L psychologist social dynamometer II strength testing. *MET 12/09= avg 22.0# of force Opposed L thumb to each digit pad x 2 out of 2 cycles. *MET 12/24/19 0-30 degrees active left wrist extension. *MET 01/13/20. 0-40 w/ fingers flexed Actively utilizing the left hand with functional transfers . *MET 01/13/20 Actively participated in additional standardized assessments. *MET 01/13/20 Flipped over 10 various sized coins w/ S without use of edge of TT. *MET 06/16/20 Flipped five, 3 x 5 index cards, within 2 SD below the mean (within 11.88 seconds) ( Peter subtest). *MET 07/05/20; 10.9 sec Stacked 4 wood checkers w/ S. *MET 07/05/20 Placed 5+ small/medium/large pegs in pegboard w/ L hand. Transferred TT to pegboard. * MET 09/22/20 0-80 degrees active L sh abd. *MET 09/22/20 Place 8+ medium/large sized pegs in pegboard w/ L hand, w/ 1 peg placed at a time in the palm of L hand. *MET 10/25/20 Mcfp Goals 1. Patient will be modified independent with execution of UE home exercise program utilizing provided written and visual instructions from therapist with support of family and caregivers. 11/22/20= 50% met 2. Patient will be able to don upper body clothing items (e.g., donning of shirt/jacket ) with modified independence utilizing compensatory strategies on a daily basis based on spouse/patient verbal report, as observed over a 7- day period of time. 11/22/20= 75 % met; set-up from - completed w/ t-shirt for first time 3. Patient will present with improved bimanual coordination of the upper extremities, as evidenced by patient and patient's spouse's self-report of ability to manage personal reading materials, utilizing compensatory strategies/AE if/ as needed, with increased time while seated on stable surface on a daily basis with modified independence. 11/22/20= 50% met 4. Patient will present with improved functional independence/motor coordination of the left upper extremity; this will be evidenced by patient and spouse's verbal report of patient's ability to manage personal cell phone utilizing compensatory strategies/AE if/ as needed over short periods of time (5 to 10 minutes in length) on daily basis with the left hand. 11/22/20= 50% met GOALS MET Per , Gerd is able to doff all UB clothing items w/ mod I on daily basis. *MET 12/30/19 - Treatment 6 Descriptor Eye-hand coordination. 5 Descriptor Bimanual coordination. 4 Descriptor Neuro re-education. 3 Descriptor Object manipulation. Translation of object palm --> fingertips. Small objects. Seated. Transferring of objects. With and without trunk rotation. TT --> location to left of body/ shoulder height. Seated/ Standing. Transferring of objects to L of body with 2# weight strapped to wrist. Exercises 1 Descriptor HEP/POC. Thelma, Rod's , was present throughout treatment session. Education provided re: positioning versus UE exercises versus functional/NDT approach of incorporation of L UE in day- to-day life. Education was provided re: importance of maintaining available range of motion; education re: positioning of objects to support upright sitting/ posture. Discussed functional activities to support ROM, including management of laundry, reading materials, functional dressing, g/h tasks . Discussed positioning of UE to the left of body on TT/or other surface/stretching arms out infront of body while seated at kitchen table. Discussed returning to PCP for additional options to address UE discomfort; Gerd is taking muscle relaxant at night time . - Assessment Assessment of Improvement Inconsistent w/ execution of UE strengthening/ROM exercises (e.g., use of arm pulleys). Thus, increased focus on positioning, environmental modifications, and functional incorporation of UE to support carry-over and daily completion. Gerd is taking muscle relaxant at night; he is using heating pad as well. c/o R sh pain and neck pain. ( +) response to manual therapy to upper trap/levator R side. Patient is completing upper trap/levator stretch when pain presents; however, pain continues to be bothersome. Tendency towards forward posturing w/ activities ( including engagement in reading materials). Will need to explore positioning/ functional tasks further to encourage movement/upright sitting/posturing/scapular movement. Recommend instruction on use of anibal bandage to support positioning of heating pad to assist couple. PLAN: Focus on continuing to support functional incorporation of UE /hand in day-to-day life; re- inforcement of carry-over/ consistency w/ UE ROM exercises to maintain available shoulder ROM particularly w/ movement of UE to left of body Gerd continues to present with L sided neglect, impaired vision, impaired L UE motor planning, decreased orientation to midline, impaired L UE sensation, and decreased functional independence. Thus, continued outpatient OT is recommended to maximize patient's success in day-to-day life with active incorporation of the L UE. Home Exercise Program Please refer to treatment section of note for specific details. - Plan Therapy Recommendations Continue with Current Program, Advance per Rehabilitation Protocol
--- NOTE | 2020-12-09 15:30 | OT.OPPN ---
Current Diagnoses Nontraumatic intracerebral hemorrhage, unspecified (12/09/20) Occupational Therapy Inpatient Evaluation/Re-Eval OT Outpatient Adult Evaluation Start: 09/29/19 07:33 Freq: Status: Active Protocol: Document 09/18/19 15:30 AMS (Rec: 09/29/19 08:13 AMS [id number]) General Information Session Time Visit Start Time 12:30 Visit Stop Time 13:25 Total Visit Minutes 55 Visit Information Visit Number [id number] Plan of Care Dates 09/18/19-12/11/2019 Insurance Information Medicare Setting Treatment Setting Outpatient Care Visit Type Note Type Initial Evaluation Referral Referring Physician Yesy Cortes MD Reason for Referral CVA Identification Identification Confirmed Yes: Photo ID Identification Confirmed By Medical Information Medical History Patient is a 69 year-old male referred to outpatient OT by PCP, Yesy Cortes MD, 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 Patient was transferred from [facility] to [facility] where craniotomy was performed 04/16/19. Patient completed [address] [facility] and then underwent secondary surgery on 06/26/19 to replace skull fragment. Patient was then at acute rehab facility 06/30/19-07/18/19 . He was discharged home with assist from and caregivers. He received Home Health PT/OT/COMPOUND FINISHER until . Therapy Pain Assessment Pain When Pain Assessed Pre-treat Pain Present Pain Present Pain Reported Location Left Foot Intensity 5 Scale Used Numeric (0 - 10) Left Upper Leg Intensity 7 Scale Used Numeric (0 - 10) Lower Back Intensity 7 Scale Used Numeric (0 - 10) Left Arm Intensity 4 Scale Used Numeric (0 - 10) Bilateral Shoulder Intensity 5 Scale Used Numeric (0 - 10) ADLs Overall Ability Comments Impaired; and caregiver assists patient w/ ADLS Dressing Skill Level Impaired Skill Level Impaired Skill Level Impaired Bathing Skill Level Impaired Toileting Skill Level Impaired Observations Observations Observations AROM of L thumb noted. Use of lateral nichols pinch. Unable to oppose left thumb to second digit pad. In-Hand Manipulation [id number] Translation Right Level of Ability WFL Left Level of Ability Unable [id number] Translation Right Level of Ability WFL Left Level of Ability Unable Shift Right Level of Ability WFL Left Level of Ability Unable Simple Rotation Right Level of Ability WFL Left Level of Ability Unable Complex Rotation Right Level of Ability WFL Left Level of Ability Unable Goals Treatment Treatment Education completed re: positioning of UE when at rest ; instructed in positioning in w/c and when in supported sitting. Education focus on positioning of UE away from protective pattern and to the left of the body w/ supported wrist extension as tolerated. Recommended active TT ROM w/ scapular retraction/ protraction in frontal plane given no c/o pain/discomfort w / this exercise. Short Term Goals Short Term Goals 1. Patient will be able to oppose left thumb to second digit pad 4 out of 5 trials with increased effort and concentration demonstrating increasing ability to actively incorporate the left upper extremity/hand in day-to-day life. 2. 0-30 degrees active left wrist extension. 3. 0-60 degrees active left forearm supination. 4. Patient will demonstrate increased ability to actively incorporate L UE in day-to-day life, as evidenced by ability to tolerate left <-> right weight shifting x 10 trials, with hands positioned in frontal plane. 5. Patient will actively participate in standardized digit/sorority supervisor strength testing as tolerated. Pile Driver Operator Goals Senior Care Goals 1. Patient will be modified independent with execution of UE home exercise program utilizing provided written and visual instructions from therapist with support of family and caregivers. 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 PMH : Significant for arthritis; back pain; blood pressure; fibromyalgia; 2 brain surgeries (March 2019); left sided neglect; impaired vision . PLOF: Independent w/ ADLS and IADLS. Evaluation findings: Reported pain/discomfort of L LE, lower back bilateral shoulders, and L UE; left sided neglect; impaired functional independence; patient focus on gait; poor tolerance for distal L UE splint; impaired sensation of L UE; L UE weakness; decreased L UE AROM; decreased object manipulation abilities of the L hand; spasticity into flexor pattern of UE; protective posturing of UE; impaired posture; impaired balance; and poor tolerance for UE weight bearing. Outpatient OT is recommended to address these areas in order to maximize Gerd's success with active participation in meaningful activities with active incorporation of the affected UE. Plan Comment 12 weeks Comment 1-2 times per week Therapeutic Contents Active Range of Motion, Adaptive Equipment Education, Client Education,Cognitive Skills Development,Functional Activities,Home Exercise Program,Joint Protection, Manual Therapy,Education, Neurodevelopment Treatment, Neuromuscular Re-Education, Self-Care,Stretching/ Flexibility Activities, Therapeutic Activities, Therapeutic Exercises, Modalities,Sensory Re- education Modalities As Needed,As Prescribed Types of Modalities Contrast Bath,E-Stim, Functional Stimulation (FES),T .E.N. Stimulation,TENS Placement/Application, Ultrasound Patient Instruction Home Exercise Program,Plan of Care,Questions/Concerns Sensory Assessment Sensory Profile2 Functional Wrist/Hand Scan Hand Side OT Outpatient Standardized Assessments Start: 09/29/19 07:33 Freq: Status: Active Protocol: Document 12/09/20 15:30 [facility] (Rec: 12/10/20 15:18 [facility] [id number]) Jebsen-Mely Hand Function Test Date of Test Date of Test 01/06/20 Writing Comments N/A Lifting Small, Common Objects Non-Dominant Hand 16.6 Dominant Hand 6.3 Comments Mean Subtest Scores for Men 60 -69 years of age in sec (+/- SD) Non-dominant hand = 7.48 +/- 2 .20; > 4 SD above the mean Dominant hand = 6.72 +/- 1.39; slightly faster then mean Simulated Feeding Comments N/A Stacking Checkers Non-Dominant Hand Unable Dominant Hand 5.2 Comments Mean Subtest Scores for Men 60 -69 years of age in sec (+/- SD) Non-dominant hand = 5.46 +/- 2 .83 Dominant hand = 4.19 +/- 0.93 ; slightly > 1 SD above mean Lifting Large, Light Objects Non-Dominant Hand 34.3 Dominant Hand 4.4 Comments Mean Subtest Scores for Men 60 -69 years of age in sec (+/- SD) Non-dominant hand = 3.94 +/- 0 .69; > 5+ SD above the man Dominant hand = 3.69 +/- 0.71; 1 SD above mean Lifting Large, Heavy Objects Non-Dominant Hand 39.8 Dominant Hand 5.8 Comments Mean Subtest Scores for Men 60 -69 years of age in sec (+/- SD) Non-dominant hand = 4.03 +/- 0 .78; > 5+ SD above the man Dominant hand = 3.62 +/- 0.73; slightly greater than 2 SD above the mean 9-Hole Peg Hand Test Hand Left Date of Test 01/13/20 Therapist DENISE Austin/Octavio Comments Unable Right Comments Did not perform assessment given patient unable to complete w/ L hand OT Outpatient Treatment Note - Adult Start: 09/29/19 07:33 Freq: Status: Active Protocol: Document 12/09/20 15:30 AMS (Rec: 12/10/20 15:18 AMS [id number]) OT Outpatient Adult Treatment Note Session Time Visit Start Time 12:30 Visit Stop Time 13:20 Total Visit Minutes 50 Visit Information Visit Number 11/[id number] Plan of Care Dates 12/10/2020-03/04/2021 Insurance Information Medicare Setting Treatment Setting Outpatient Care Visit Type Note Type Progress Note General Information General Information 70-yr-old male s/p 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 The pt was brought to [facility] ED where CT head revealed hemorrhage, then transferred via helicopter to [facility]. Pt underwent craniotomy on 04/16. He transferred to [facility] for rehab on 05/05 , where he remained until returning to [facility] 06/26 for surgical replacement of right side skull. He transferred from [facility] to [facility] for acute inpatient rehab from 06/30 - 07/18, returning home with Home Health PT/OT/ST until 09/12. - Subjective Identification Type Name Identification Reconciled With Medical Record Others Present Family Observations April, Rod's , accompanied him to OT treatment session. I have a whole routine in the morning. When I finally get to my shirt I just want to be done and have my coffee per Gerd. Patient/Caregiver Compliance with Home Good Exercise Program Comment w/ caregiver/family support - Objective Objective Measurements Object transfer R hand thumb/ 3rd digit. Hyperextension of DIP joints of 3rd, 4th and 5th digits of the L hand; hyperextension observed w/ object retrieval given digits are extended despite size of objects being manipulated. Please refer to below for progress towards meeting established OT goals. Functional abilities as of = min phys assist w/ donning UB/LB dressing ( however, is mod I w/ socks/ shoes); mod I w/ toileting hygiene, application of deodarant, and managing personal glasses. 01/06/20= Correctly differentiated between L vs R w/ laterality activity 5 out of 10 trials. 12/16/19= Impaired sensation of L UE; absent sensation of distal UE (volar/dorsal surfaces of the hand). Absent touch noted in the areas of light, pain, stereognosis. Report of some sense of touch noted w/ vibration elbow --> distal UE. Report of painful response to water to hand in morning. Short Term Goals 1. Patient will present with improved fine motor coordination of the affected upper extremity; this will be evidenced by Gerd's ability to place 8 small sized pegs in pegboard with the left hand, with therapist placing 1 peg at a time in the palm of the left hand. 12/09/20 = 50% met 2. 0-90 degrees active L sh abduction. 12/09/20= 75% met; 0 -85 degrees GOALS MET Actively participated in standardized digit/sorority supervisor strength testing. [employer] Artistic Director/Lateral Nichols Pinch. *MET 10/21/19 Opposed L thumb to second digit pad 4 out of 5 trials w/ increased effort/ concentration. *MET 11/17/19 0-60 degrees active left forearm supination. *MET = 0-75 degrees Will average 15.0+ pounds of force with L sorority supervisor dynamometer II strength testing. *MET 12/09= avg 22.0# of force Opposed L thumb to each digit pad x 2 out of 2 cycles. *MET 12/24/19 0-30 degrees active left wrist extension. *MET 01/13/20. 0-40 w/ fingers flexed Actively utilizing the left hand with functional transfers . *MET 01/13/20 Actively participated in additional standardized assessments. *MET 01/13/20 Flipped over 10 various sized coins w/ S without use of edge of TT. *MET 06/16/20 Flipped five, 3 x 5 index cards, within 2 SD below the mean (within 11.88 seconds) ( Peter subtest). *MET 07/05/20; 10.9 sec Stacked 4 wood checkers w/ S. *MET 07/05/20 Placed 5+ small/medium/large pegs in pegboard w/ L hand. Transferred TT to pegboard. * MET 09/22/20 0-80 degrees active L sh abd. *MET 09/22/20 Place 8+ medium/large sized pegs in pegboard w/ L hand, w/ 1 peg placed at a time in the palm of L hand. *MET 10/25/20 Able to manage personal zippers of UB clothing items with increased time (increased difficulty when fatigued). * MET 12/09/20 Senior Care Goals 1. Patient will be modified independent with execution of UE home exercise program utilizing provided written and visual instructions from therapist with support of family and caregivers. 12/09/20 = 50% met 2. Patient will be able to don upper body clothing items (e.g., donning of shirt/jacket ) with modified independence utilizing compensatory strategies on a daily basis based on spouse/patient verbal report, as observed over a 7- day period of time. 12/09/20= 75% met 3. Patient will present with improved bimanual coordination of the upper extremities, as evidenced by patient and patient's spouse's self-report of ability to manage personal reading materials, utilizing compensatory strategies/AE if/ as needed, with increased time while seated on stable surface on a daily basis with modified independence. 11/22/20= 50% met 4. Patient will present with improved functional independence/motor coordination of the left upper extremity; this will be evidenced by patient and spouse's verbal report of patient's ability to manage personal cell phone utilizing compensatory strategies/AE if/ as needed over short periods of time (5 to 10 minutes in length) on daily basis with the left hand. 11/22/20= 50% met GOALS MET Per , Gerd is able to doff all UB clothing items w/ mod I on daily basis. *MET 12/30/19 - Treatment 6 Descriptor Eye-hand coordination. 5 Descriptor Bimanual coordination. 4 Descriptor Neuro re-education. 3 Descriptor Object manipulation. Translation of object palm --> fingertips. Small objects. Seated. Transferring of objects. With and without trunk rotation. TT --> location to left of body/ shoulder height. Seated/ Standing. Transferring of objects to L of body with 2# weight strapped to wrist. 2 Descriptor Self-care Activities Croswell/donning zipper vest. Croswell/donning personal long sleeved jacket Exercises 1 Descriptor HEP/POC. Thelma, Rod's , was present throughout treatment session. - Assessment Assessment of Improvement Gerd has made progress relative to translation of objects w/ rotation of the left hand, left upper extremity range of motion, self-care abilities and functional problem solving. This is evidenced by Gerd meeting short term goals in these areas, as well as based on self- and caregiver report. Gerd continues to have difficulty w/ primarily w/ orientation of UB clothing. This may be d/t donning of shirt being the last in his morning routine; thus, actively problem solved w/ and April w/ slightly altering morning routine to support success. Gerd continues to report impaired sensation negatively impacts his day-to-day life; Gerd is attending to the left side more than from time of initial evaluation however, does have vision loss. Thus, impaired sensation and vision loss is likely contributing to difficulties with upper body dressing/functional incorporation of the L hand. Therapist has also been focusing increasingly on functional tasks given that Gerd is inconsistent w/ execution of UE strengthening/ ROM exercises (e.g., use of arm pulleys). Therapist is also increasingly focusing on positioning, environmental modifications. Gerd continues to c/o pain of the neck/L shoulder region. Neck pain was pre-morbid. Currently Gerd is taking a muscle relaxant at night and he is using heating pad. Gerd does have poor sitting/standing posture and has a tendency towards forward posturing w/ activities ( including engagement in reading materials). PLAN: Focus on continuing to support functional incorporation of UE/hand in day-to-day life; re -inforcement of carry-over/ consistency w/ UE ROM exercises to maintain available shoulder ROM particularly w/ movement of UE to left of body; Recommend instruction on use of anibal bandage to support positioning of heating pad to assist couple. Gerd continues to present with L sided neglect, impaired vision, impaired L UE motor planning, decreased orientation to midline, impaired L UE sensation, and decreased functional independence. Thus, continued outpatient OT is recommended to maximize patient's success in day-to-day life with active incorporation of the L UE. Home Exercise Program Please refer to treatment section of note for specific details. - Plan Therapy Recommendations Continue with Current Program, Advance per Rehabilitation Protocol Comment 12 weeks Comment 1 x per week versus 1 x every other week Therapeutic Contents Active Range of Motion, Adaptive Equipment Education, Client Education,Cognitive Skills Development,Functional Activities,Home Exercise Program,Joint Protection, Manual Therapy,Education, Neurodevelopment Treatment, Neuromuscular Re-Education, Self-Care,Stretching/ Flexibility Activities, Therapeutic Activities, Therapeutic Exercises, Modalities,Sensory Re- education Modalities As Needed,As Prescribed Types of Modalities E-Stim,Ice Massage,T.E.N. Stimulation,TENS Placement/ Application,Ultrasound Additional Types of Modalities Heat/US/Paraffin/
--- NOTE | 2020-12-20 13:30 | OT.OP.TRT ---
Visit Care Team Role Provider Type Yesy Cortes MD Attending Provider Physician Primary Care Provider Specialty: Internal Medicine [address]: [address] [place] [address], [address] Email: [email or web address] Occupational Therapy Treatment Note OT Outpatient Treatment Note - Adult Start: 09/29/19 07:33 Freq: Status: Active Protocol: Document 12/20/20 13:21 AMS (Rec: 12/20/20 13:30 AMS [id number]) OT Outpatient Adult Treatment Note Session Time Visit Start Time 12:30 Visit Stop Time 13:20 Total Visit Minutes 50 Visit Information Visit Number 12/29 Plan of Care Dates 12/10/2020-03/04/2021 Insurance Information Medicare Setting Treatment Setting Outpatient Care Visit Type Note Type Treatment Note General Information General Information 70-yr-old male s/p 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 The pt was brought to [facility] ED where CT head revealed hemorrhage, then transferred via helicopter to [facility]. Pt underwent craniotomy on 04/16. He transferred to [facility] for rehab on 05/05 , where he remained until returning to [facility] 06/26 for surgical replacement of right side skull. He transferred from [facility] to [facility] for acute inpatient rehab from 06/30 - 07/18, returning home with Home Health PT/OT/ST until 09/12. - Subjective Identification Type Name Identification Reconciled With Medical Record Others Present Family Observations April, Rod's , accompanied him to OT treatment session. I am trying to use this arm more per Rod. He is still getting help with his shirt in the morning per April. Patient/Caregiver Compliance with Home Good Exercise Program Comment w/ caregiver/family support - Objective Objective Measurements Object transfer R hand thumb/ 3rd digit. Hyperextension of DIP joints of 3rd, 4th and 5th digits of the L hand; hyperextension observed w/ object retrieval given digits are extended despite size of objects being manipulated. Please refer to below for progress towards meeting established OT goals. Functional abilities as of = min phys assist w/ donning UB/LB dressing ( however, is mod I w/ socks/ shoes); mod I w/ toileting hygiene, application of deodarant, and managing personal glasses. 01/06/20= Correctly differentiated between L vs R w/ laterality activity 5 out of 10 trials. 12/16/19= Impaired sensation of L UE; absent sensation of distal UE (volar/dorsal surfaces of the hand). Absent touch noted in the areas of light, pain, stereognosis. Report of some sense of touch noted w/ vibration elbow --> distal UE. Report of painful response to water to hand in morning. Short Term Goals 1. Patient will present with improved fine motor coordination of the affected upper extremity; this will be evidenced by Gerd's ability to place 8 small sized pegs in pegboard with the left hand, with therapist placing 1 peg at a time in the palm of the left hand. 12/09/20 = 50% met 2. 0-90 degrees active L sh abduction. 12/09/20= 75% met; 0 -85 degrees GOALS MET Actively participated in standardized digit/grocery clerk selling strength testing. Storage Garage Manager/Lateral [employer] Pinch. *MET 10/21/19 Opposed L thumb to second digit pad 4 out of 5 trials w/ increased effort/ concentration. *MET 11/17/19 0-60 degrees active left forearm supination. *MET = 0-75 degrees Will average 15.0+ pounds of force with L grocery clerk selling dynamometer II strength testing. *MET 12/09= avg 22.0# of force Opposed L thumb to each digit pad x 2 out of 2 cycles. *MET 12/24/19 0-30 degrees active left wrist extension. *MET 01/13/20. 0-40 w/ fingers flexed Actively utilizing the left hand with functional transfers . *MET 01/13/20 Actively participated in additional standardized assessments. *MET 01/13/20 Flipped over 10 various sized coins w/ S without use of edge of TT. *MET 06/16/20 Flipped five, 3 x 5 index cards, within 2 SD below the mean (within 11.88 seconds) ( Peter subtest). *MET 07/05/20; 10.9 sec Stacked 4 wood checkers w/ S. *MET 07/05/20 Placed 5+ small/medium/large pegs in pegboard w/ L hand. Transferred TT to pegboard. * MET 09/22/20 0-80 degrees active L sh abd. *MET 09/22/20 Place 8+ medium/large sized pegs in pegboard w/ L hand, w/ 1 peg placed at a time in the palm of L hand. *MET 10/25/20 Able to manage personal zippers of UB clothing items with increased time (increased difficulty when fatigued). * MET 12/09/20 Usp Goals 1. Patient will be modified independent with execution of UE home exercise program utilizing provided written and visual instructions from therapist with support of family and caregivers. 12/09/20 = 50% met 2. Patient will be able to don upper body clothing items (e.g., donning of shirt/jacket ) with modified independence utilizing compensatory strategies on a daily basis based on spouse/patient verbal report, as observed over a 7- day period of time. 12/09/20= 75% met 3. Patient will present with improved bimanual coordination of the upper extremities, as evidenced by patient and patient's spouse's self-report of ability to manage personal reading materials, utilizing compensatory strategies/AE if/ as needed, with increased time while seated on stable surface on a daily basis with modified independence. 11/22/20= 50% met 4. Patient will present with improved functional independence/motor coordination of the left upper extremity; this will be evidenced by patient and spouse's verbal report of patient's ability to manage personal cell phone utilizing compensatory strategies/AE if/ as needed over short periods of time (5 to 10 minutes in length) on daily basis with the left hand. 11/22/20= 50% met GOALS MET Per , Gerd is able to doff all UB clothing items w/ mod I on daily basis. *MET 12/30/19 - Treatment 6 Descriptor Eye-hand coordination. 5 Descriptor Bimanual coordination. 4 Descriptor Neuro re-education. 3 Descriptor Object manipulation. Translation of object palm --> fingertips. Small objects. Seated. Transferring of objects. With and without trunk rotation. TT --> location to left of body/ shoulder height. Seated/ Standing. Transferring of objects to L of body with 2# weight strapped to wrist. 2 Descriptor Self-care Activities Orientation to left upper extremity/awareness to support functional abilities [place]/donning zipper vest. [place]/donning personal long sleeved jacket Exercises 1 Descriptor HEP/POC. Thelma, Rod's , was present throughout treatment session. - Assessment Assessment of Improvement Active participation in all activities. Slightly upgraded eye-hand coordination w/ single arm use to increase demands on reaction time/motor planning abilities; introduced single marble to increase challenge. Increased speed and efficiency w/ manipulation evidenced w/ repetitions w/ single marble manipulation. Active problem solving observed w/ L UE to support R hand removal of items placed on L arm sleeve. Poor sitting/standing posture and has a tendency towards forward posturing w/ activities (including engagement in reading materials). Patient verbally indicated that he is trying to use hand more; able to identify daily task incorporation of left hand without support! also reported that Gerd is having increasing awareness of clothing items on the L UE. Overall, progress towards goals is being made. PLAN: Focus on continuing to support functional incorporation of UE/hand in day-to-day life; re- inforcement of carry-over/ consistency w/ UE ROM exercises to maintain available shoulder ROM particularly w/ movement of UE to left of body; Recommend instruction on use of anibal bandage to support positioning of heating pad to assist couple. Gerd continues to present with L sided neglect, impaired vision, impaired L UE motor planning, decreased orientation to midline, impaired L UE sensation, and decreased functional independence. Thus, continued outpatient OT is recommended to maximize patient's success in day-to-day life with active incorporation of the L UE. Home Exercise Program Please refer to treatment section of note for specific details. - Plan Therapy Recommendations Continue with Current Program, Advance per Rehabilitation Protocol
--- NOTE | 2021-01-05 15:30 | OT.OP.TRT ---
Visit Care Team Role Provider Type Yesy Cortes MD Attending Provider Physician Primary Care Provider Specialty: Internal Medicine [address]: [address] [place] [address], [id number] Email: [email or web address] Treatment Note OT Outpatient Treatment Note - Adult Start: 09/29/19 07:33 Freq: Status: Active Protocol: Document 01/05/21 15:30 AMS (Rec: 01/07/21 14:57 AMS [id number]) OT Outpatient Adult Treatment Note Session Time Visit Start Time 12:30 Visit Stop Time 13:20 Total Visit Minutes 50 Visit Information Visit Number 01/26 Plan of Care Dates 12/10/2020-03/04/2021 Insurance Information Medicare Setting Treatment Setting Outpatient Care Visit Type Note Type Treatment Note General Information General Information 70-yr-old male s/p 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 The pt was brought to [facility] ED where CT head revealed hemorrhage, then transferred via helicopter to [facility]. Pt underwent craniotomy on 04/16. He transferred to [facility] for rehab on 05/05 , where he remained until returning to [facility] 06/26 for surgical replacement of right side skull. He transferred from [facility] to [facility] for acute inpatient rehab from 06/30 - 07/18, returning home with Home Health PT/OT/ST until 09/12. - Subjective Identification Type Name Identification Reconciled With Medical Record Others Present Family Observations April, Rod's , accompanied him to OT treatment session. Can we work on shoe tying and this vest? per Rod. Patient/Caregiver Compliance with Home Good Exercise Program Comment w/ caregiver/family support - Objective Objective Measurements Object transfer R hand thumb/ 3rd digit. Hyperextension of DIP joints of 3rd, 4th and 5th digits of the L hand; hyperextension observed w/ object retrieval given digits are extended despite size of objects being manipulated. Please refer to below for progress towards meeting established OT goals. Functional abilities as of = min phys assist w/ donning UB/LB dressing ( however, is mod I w/ socks/ shoes); mod I w/ toileting hygiene, application of deodarant, and managing personal glasses. 01/06/20= Correctly differentiated between L vs R w/ laterality activity 5 out of 10 trials. 12/16/19= Impaired sensation of L UE; absent sensation of distal UE (volar/dorsal surfaces of the hand). Absent touch noted in the areas of light, pain, stereognosis. Report of some sense of touch noted w/ vibration elbow --> distal UE. Report of painful response to water to hand in morning. Short Term Goals 1. Patient will present with improved fine motor coordination of the affected upper extremity; this will be evidenced by Gerd's ability to place 8 small sized pegs in pegboard with the left hand, with therapist placing 1 peg at a time in the palm of the left hand. 12/09/20 = 50% met 2. 0-90 degrees active L sh abduction. 12/09/20= 75% met; 0 -85 degrees GOALS MET Actively participated in standardized digit/intranet support strength testing. Medical Assistant Float/Lateral Nichols Pinch. *MET 10/21/19 Opposed L thumb to second digit pad 4 out of 5 trials w/ increased effort/ concentration. *MET 11/17/19 0-60 degrees active left forearm supination. *MET = 0-75 degrees Will average 15.0+ pounds of force with L intranet support dynamometer II strength testing. *MET 12/09= avg 22.0# of force Opposed L thumb to each digit pad x 2 out of 2 cycles. *MET 12/24/19 0-30 degrees active left wrist extension. *MET 01/13/20. 0-40 w/ fingers flexed Actively utilizing the left hand with functional transfers . *MET 01/13/20 Actively participated in additional standardized assessments. *MET 01/13/20 Flipped over 10 various sized coins w/ S without use of edge of TT. *MET 06/16/20 Flipped five, 3 x 5 index cards, within 2 SD below the mean (within 11.88 seconds) ( Peter subtest). *MET 07/05/20; 10.9 sec Stacked 4 wood checkers w/ S. *MET 07/05/20 Placed 5+ small/medium/large pegs in pegboard w/ L hand. Transferred TT to pegboard. * MET 09/22/20 0-80 degrees active L sh abd. *MET 09/22/20 Place 8+ medium/large sized pegs in pegboard w/ L hand, w/ 1 peg placed at a time in the palm of L hand. *MET 10/25/20 Able to manage personal zippers of UB clothing items with increased time (increased difficulty when fatigued). * MET 12/09/20 Retirement Goals 1. Patient will be modified independent with execution of UE home exercise program utilizing provided written and visual instructions from therapist with support of family and caregivers. 12/09/20 = 50% met 2. Patient will be able to don upper body clothing items (e.g., donning of shirt/jacket ) with modified independence utilizing compensatory strategies on a daily basis based on spouse/patient verbal report, as observed over a 7- day period of time. 12/09/20= 75% met 3. Patient will present with improved bimanual coordination of the upper extremities, as evidenced by patient and patient's spouse's self-report of ability to manage personal reading materials, utilizing compensatory strategies/AE if/ as needed, with increased time while seated on stable surface on a daily basis with modified independence. 11/22/20= 50% met 4. Patient will present with improved functional independence/motor coordination of the left upper extremity; this will be evidenced by patient and spouse's verbal report of patient's ability to manage personal cell phone utilizing compensatory strategies/AE if/ as needed over short periods of time (5 to 10 minutes in length) on daily basis with the left hand. 11/22/20= 50% met GOALS MET Per , Rod is able to doff all UB clothing items w/ mod I on daily basis. *MET 12/30/19 - Treatment 6 Descriptor Eye-hand coordination. 5 Descriptor Bimanual coordination. 4 Descriptor Neuro re-education. 3 Descriptor Object manipulation. Translation of object palm --> fingertips. Small objects. Seated. Transferring of objects. With and without trunk rotation. TT --> location to left of body/ shoulder height. Seated/ Standing. Transferring of objects to L of body with 2# weight strapped to wrist. 2 Descriptor Self-care Activities Orientation to left upper extremity/awareness to support functional abilities Krebs/donning zipper vest. Tying of shoe laces. Exercises 1 Descriptor HEP/POC. Rod Renee's , was present throughout treatment session. Recommended that Gerd utilizes a stool to support shoe tying. Discussed potential use of shoe tying AE; Gerd denied current need. Discussed changing verbal cue to 'can you see your elbow' versus 'straighten your arm' to support donning of vest, short-sleeve shirt. Practiced this approach to donning of vest in treatment session. Discussed cue to place vest/or UB clothing item on table or other surface to support complete removal of clothing item from left upper extremity . Also recommended working on managing personal sleeves (R and L) with and without visual feedback. Both Rod and his denied questions. - Assessment Assessment of Improvement Active participation in all activities. Focus on functional abilities based on patient request. Addressed shoe tying abilities and reviewed donning of personal zipper vest. Identified strategies with patient and his to support carry-over /success in the home environment relative to these functional tasks/removal of upper body clothing items. Overall, progress towards goals is being made. PLAN: Focus on continuing to support functional incorporation of UE/hand in day-to-day life; re- inforcement of carry-over/ consistency w/ UE ROM exercises to maintain available shoulder ROM particularly w/ movement of UE to left of body; Recommend instruction on use of anibal bandage to support positioning of heating pad to assist couple. Gerd continues to present with L sided neglect, impaired vision, impaired L UE motor planning, decreased orientation to midline, impaired L UE sensation, and decreased functional independence. Thus, continued outpatient OT is recommended to maximize patient's success in day-to-day life with active incorporation of the L UE. Home Exercise Program Please refer to treatment section of note for specific details. - Plan Therapy Recommendations Continue with Current Program, Advance per Rehabilitation Protocol
--- NOTE | 2021-01-24 13:28 | OT.OP.TRT ---
Visit Care Team Role Provider Type Yesy Cortes MD Attending Provider Physician Primary Care Provider Specialty: Internal Medicine Address: [address] [place] [address], [id number] Email: [email or web address] Occupational Therapy Treatment Note OT Outpatient Treatment Note - Adult Start: 09/29/19 07:33 Freq: Status: Active Protocol: Document 01/24/21 12:27 AMS (Rec: 01/24/21 12:31 AMS [id number]) OT Outpatient Adult Treatment Note Session Time Visit Start Time 10:30 Visit Stop Time 11:15 Total Visit Minutes 45 Visit Information Visit Number 02/26 Plan of Care Dates 12/10/2020-03/04/2021 Insurance Information Medicare Setting Treatment Setting Outpatient Care Visit Type Note Type Treatment Note General Information General Information 70-yr-old male s/p 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 The pt was brought to [facility] ED where CT head revealed hemorrhage, then transferred via helicopter to [facility]. Pt underwent craniotomy on 04/16. He transferred to [facility] for rehab on 05/05 , where he remained until returning to [facility] 06/26 for surgical replacement of right side skull. He transferred from [facility] to [facility] for acute inpatient rehab from 06/30 - 07/18, returning home with Home Health PT/OT/ST until 09/12. - Subjective Identification Type Name Identification Reconciled With Medical Record Others Present Family Observations April, Rod's , accompanied him to OT treatment session. Can we work on the vest? per Rod. Last night he got his pajama top on but it was backwards. He is now however, pulling everything off of that arm when he is getting undressed. That is definitely progress. We had another appointment for his vision and they said that he is missing bilateral lower quadrants of his vision. He may have gotten a little bit back in the upper quadrants. It is hard to tell per April. Patient/Caregiver Compliance with Home Good Exercise Program Comment w/ caregiver/family support - Objective Objective Measurements Object transfer R hand thumb/ 3rd digit. Hyperextension of DIP joints of 3rd, 4th and 5th digits of the L hand; hyperextension observed w/ object retrieval given digits are extended despite size of objects being manipulated. Please refer to below for progress towards meeting established OT goals. Functional abilities as of = min phys assist w/ donning UB/LB dressing ( however, is mod I w/ socks/ shoes); mod I w/ toileting hygiene, application of deodarant, and managing personal glasses. 01/06/20= Correctly differentiated between L vs R w/ laterality activity 5 out of 10 trials. 12/16/19= Impaired sensation of L UE; absent sensation of distal UE (volar/dorsal surfaces of the hand). Absent touch noted in the areas of light, pain, stereognosis. Report of some sense of touch noted w/ vibration elbow --> distal UE. Report of painful response to water to hand in morning. Short Term Goals 1. Patient will present with improved fine motor coordination of the affected upper extremity; this will be evidenced by Gerd's ability to place 8 small sized pegs in pegboard with the left hand, with therapist placing 1 peg at a time in the palm of the left hand. 12/09/20 = 50% met 2. 0-90 degrees active L sh abduction. 12/09/20= 75% met; 0 -85 degrees GOALS MET Actively participated in standardized digit/scrap drop engineer strength testing. Pipe Fitter Supervisor/Lateral Nichols Pinch. *MET 10/21/19 Opposed L thumb to second digit pad 4 out of 5 trials w/ increased effort/ concentration. *MET 11/17/19 0-60 degrees active left forearm supination. *MET = 0-75 degrees Will average 15.0+ pounds of force with L scrap drop engineer dynamometer II strength testing. *MET 12/09= avg 22.0# of force Opposed L thumb to each digit pad x 2 out of 2 cycles. *MET 12/24/19 0-30 degrees active left wrist extension. *MET 01/13/20. 0-40 w/ fingers flexed Actively utilizing the left hand with functional transfers . *MET 01/13/20 Actively participated in additional standardized assessments. *MET 01/13/20 Flipped over 10 various sized coins w/ S without use of edge of TT. *MET 06/16/20 Flipped five, 3 x 5 index cards, within 2 SD below the mean (within 11.88 seconds) ( Peter subtest). *MET 07/05/20; 10.9 sec Stacked 4 wood checkers w/ S. *MET 07/05/20 Placed 5+ small/medium/large pegs in pegboard w/ L hand. Transferred TT to pegboard. * MET 09/22/20 0-80 degrees active L sh abd. *MET 09/22/20 Place 8+ medium/large sized pegs in pegboard w/ L hand, w/ 1 peg placed at a time in the palm of L hand. *MET 10/25/20 Able to manage personal zippers of UB clothing items with increased time (increased difficulty when fatigued). * MET 12/09/20 Fdc Goals 1. Patient will be modified independent with execution of UE home exercise program utilizing provided written and visual instructions from therapist with support of family and caregivers. 12/09/20 = 50% met 2. Patient will be able to don upper body clothing items (e.g., donning of shirt/jacket ) with modified independence utilizing compensatory strategies on a daily basis based on spouse/patient verbal report, as observed over a 7- day period of time. 01/24/21= 75 % met 3. Patient will present with improved bimanual coordination of the upper extremities, as evidenced by patient and patient's spouse's self-report of ability to manage personal reading materials, utilizing compensatory strategies/AE if/ as needed, with increased time while seated on stable surface on a daily basis with modified independence. 11/22/20= 50% met 4. Patient will present with improved functional independence/motor coordination of the left upper extremity; this will be evidenced by patient and spouse's verbal report of patient's ability to manage personal cell phone utilizing compensatory strategies/AE if/ as needed over short periods of time (5 to 10 minutes in length) on daily basis with the left hand. 11/22/20= 50% met GOALS MET Per , Rod is able to doff all UB clothing items w/ mod I on daily basis. *MET 12/30/19 - Treatment 2 Descriptor Self-care Activities Orientation to left upper extremity/awareness to support functional abilities [place]/donning zipper vest. [place]/donning long sleeve snap button v-neck shirt. Exercises 1 Descriptor HEP/POC. April, Rod's , was present throughout treatment session. Initiated UB set-up and orientation to front and back of shirt; problem solved in re: multiple tags located on the interior of UB clothing items. Initiated functional problem solving with clothing items inside out. Both Rod and his denied questions. - Assessment Assessment of Improvement Active participation in all activities. Focus on functional abilities based on patient request. Addressed UB dressing abilities; worked on orientation to front and back of vest and long sleeved shirt , as well as fixing sleeve/ shirt when 'inside out'. Identified strategies with patient and his to support carry-over/success in the home environment relative to these functional tasks. Overall, progress towards goals is being made. PLAN: Focus on continuing to support functional incorporation of UE/hand in day-to-day life; re- inforcement of carry-over/ consistency w/ UE ROM exercises to maintain available shoulder ROM particularly w/ movement of UE to left of body; Recommend instruction on use of anibal bandage to support positioning of heating pad to assist couple. Gerd continues to present with L sided neglect, impaired vision, impaired L UE motor planning, decreased orientation to midline, impaired L UE sensation, and decreased functional independence. Thus, continued outpatient OT is recommended to maximize patient's success in day-to-day life with active incorporation of the L UE. Home Exercise Program Please refer to treatment section of note for specific details. - Plan Therapy Recommendations Continue with Current Program, Advance per Rehabilitation Protocol
--- NOTE | 2021-01-31 11:37 | OT.OP.TRT ---
Visit Care Team Role Provider Type Yesy Cortes MD Attending Provider Physician Primary Care Provider Specialty: Internal Medicine [address]: [address] [place] [address], [id number] Email: [email or web address] Occupational Therapy Treatment Note OT Outpatient Treatment Note - Adult Start: 09/29/19 07:33 Freq: Status: Active Protocol: Document 01/31/21 11:27 AMS (Rec: 01/31/21 11:37 AMS [id number]) OT Outpatient Adult Treatment Note Session Time Visit Start Time 10:30 Visit Stop Time 11:15 Visit Information Visit Number 03/28 Plan of Care Dates 12/10/2020-03/04/2021 Insurance Information Medicare Setting Treatment Setting Outpatient Care Visit Type Note Type Treatment Note General Information General Information 70-yr-old male s/p 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 The pt was brought to [facility] ED where CT head revealed hemorrhage, then transferred via helicopter to [facility]. Pt underwent craniotomy on 04/16. He transferred to [facility] for rehab on 05/05 , where he remained until returning to [facility] 06/26 for surgical replacement of right side skull. He transferred from [facility] to [facility] for acute inpatient rehab from 06/30 - 07/18, returning home with Home Health PT/OT/ST until 09/12. - Subjective Identification Type Name Identification Reconciled With Medical Record Others Present Family Observations April, Gerd's , accompanied him to OT treatment session. I want to work on the belt. I want to have the option to not have to wear sweatpants per Gerd. He does tend to hold things by the loop so that should help per April. Patient/Caregiver Compliance with Home Good Exercise Program Comment w/ caregiver/family support - Objective Objective Measurements Object transfer R hand thumb/ 3rd digit. Hyperextension of DIP joints of 3rd, 4th and 5th digits of the L hand; hyperextension observed w/ object retrieval given digits are extended despite size of objects being manipulated. Please refer to below for progress towards meeting established OT goals. Functional abilities as of = min phys assist w/ donning UB/LB dressing ( however, is mod I w/ socks/ shoes); mod I w/ toileting hygiene, application of deodarant, and managing personal glasses. 01/06/20= Correctly differentiated between L vs R w/ laterality activity 5 out of 10 trials. 12/16/19= Impaired sensation of L UE; absent sensation of distal UE (volar/dorsal surfaces of the hand). Absent touch noted in the areas of light, pain, stereognosis. Report of some sense of touch noted w/ vibration elbow --> distal UE. Report of painful response to water to hand in morning. Short Term Goals 1. Patient will present with improved fine motor coordination of the affected upper extremity; this will be evidenced by Gerd's ability to place 8 small sized pegs in pegboard with the left hand, with therapist placing 1 peg at a time in the palm of the left hand. 12/09/20 = 50% met 2. 0-90 degrees active L sh abduction. 12/09/20= 75% met; 0 -85 degrees GOALS MET Actively participated in standardized digit/manager compensation strength testing. Lokie Engineer/Lateral Nichols Pinch. *MET 10/21/19 Opposed L thumb to second digit pad 4 out of 5 trials w/ increased effort/ concentration. *MET 11/17/19 0-60 degrees active left forearm supination. *MET = 0-75 degrees Will average 15.0+ pounds of force with L manager compensation dynamometer II strength testing. *MET 12/09= avg 22.0# of force Opposed L thumb to each digit pad x 2 out of 2 cycles. *MET 12/24/19 0-30 degrees active left wrist extension. *MET 01/13/20. 0-40 w/ fingers flexed Actively utilizing the left hand with functional transfers . *MET 01/13/20 Actively participated in additional standardized assessments. *MET 01/13/20 Flipped over 10 various sized coins w/ S without use of edge of TT. *MET 06/16/20 Flipped five, 3 x 5 index cards, within 2 SD below the mean (within 11.88 seconds) ( Peter subtest). *MET 07/05/20; 10.9 sec Stacked 4 wood checkers w/ S. *MET 07/05/20 Placed 5+ small/medium/large pegs in pegboard w/ L hand. Transferred TT to pegboard. * MET 09/22/20 0-80 degrees active L sh abd. *MET 09/22/20 Place 8+ medium/large sized pegs in pegboard w/ L hand, w/ 1 peg placed at a time in the palm of L hand. *MET 10/25/20 Able to manage personal zippers of UB clothing items with increased time (increased difficulty when fatigued). * MET 12/09/20 Long-Term Goals 1. Patient will be modified independent with execution of UE home exercise program utilizing provided written and visual instructions from therapist with support of family and caregivers. 12/09/20 = 50% met 2. Patient will be able to don upper body clothing items (e.g., donning of shirt/jacket ) with modified independence utilizing compensatory strategies on a daily basis based on spouse/patient verbal report, as observed over a 7- day period of time. 01/24/21= 75 % met 3. Patient will present with improved bimanual coordination of the upper extremities, as evidenced by patient and patient's spouse's self-report of ability to manage personal reading materials, utilizing compensatory strategies/AE if/ as needed, with increased time while seated on stable surface on a daily basis with modified independence. 11/22/20= 50% met 4. Patient will present with improved functional independence/motor coordination of the left upper extremity; this will be evidenced by patient and spouse's verbal report of patient's ability to manage personal cell phone utilizing compensatory strategies/AE if/ as needed over short periods of time (5 to 10 minutes in length) on daily basis with the left hand. 11/22/20= 50% met GOALS MET Per , Rod is able to doff all UB clothing items w/ mod I on daily basis. *MET 12/30/19 - Treatment 2 Descriptor Self-care Activities Orientation. Differentiation between front vs back, left vs right, inside vs outside clothing materials. [place]/donning zipper vest. [place]/donning long sleeve snap button v-neck shirt. Exercises 1 Descriptor HEP/POC. Rod Renee's , was present throughout treatment session. Discussed functional problem solving with donning of personal vest, v neck long sleeved shirt, and personal belt. Recommended orientation to appropriate tag w/ reference point of loop to hang item if clothing paperhanger pipe not being used. Began orientation w/ belt to 5 loops and starting with tail going to left. Recommended placement of UB clothing items on lap to support orientation. Discussed difficulties that may be encountered with completing dressing tasks while seated in w/c. Both Rod and his denied questions . - Assessment Assessment of Improvement Active participation in all activities. Focus on functional abilities based per patient and 's request. Addressed UB dressing and management of personal belt. Max difficulty w/ managing left belt loop located slightly posterior to front left pocket; attempt to manage with reaching across with right hand and was dependent w / threading belt w/ this 1 loop. Task was completed in standing. Identified strategies with patient and his to support carry-over /success in the home environment relative to these functional tasks. Gerd is demonstrating improving attention to left side of body w/ managing LB dressing; (+) pulling up of LB dressing over L hip on own; good walking of hands over the top of pants/ jeans! Overall, progress towards goals is being made. PLAN: Focus on continuing to support functional incorporation of UE/hand in day-to-day life; re- inforcement of carry-over/ consistency w/ UE ROM exercises to maintain available shoulder ROM particularly w/ movement of UE to left of body; Recommend instruction on use of anibal bandage to support positioning of heating pad to assist couple. Gerd continues to present with L sided neglect, impaired vision, impaired L UE motor planning, decreased orientation to midline, impaired L UE sensation, and decreased functional independence. Thus, continued outpatient OT is recommended to maximize patient's success in day-to-day life with active incorporation of the L UE. Home Exercise Program Please refer to treatment section of note for specific details. - Plan Therapy Recommendations Continue with Current Program, Advance per Rehabilitation Protocol
--- NOTE | 2021-02-07 11:47 | OT.OP.TRT ---
Visit Care Team Role Provider Type eYsy Cortes MD Attending Provider Physician Primary Care Provider Specialty: Internal Medicine Address: [address] [place] [address], [id number] Email: [email or web address] Occupational Therapy Treatment Note OT Outpatient Treatment Note - Adult Start: 09/29/19 07:33 Freq: Status: Active Protocol: Document 02/07/21 11:40 AMS (Rec: 02/07/21 11:46 AMS [id number]) OT Outpatient Adult Treatment Note Session Time Visit Start Time 10:30 Visit Stop Time 11:15 Total Visit Minutes 45 Visit Information Visit Number 04/28 Plan of Care Dates 12/10/2020-03/04/2021 Insurance Information Medicare Setting Treatment Setting Outpatient Care Visit Type Note Type Treatment Note General Information General Information 70-yr-old male s/p 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 The pt was brought to [facility] ED where CT head revealed hemorrhage, then transferred via helicopter to [facility]. Pt underwent craniotomy on 04/16. He transferred to [facility] for rehab on 05/05 , where he remained until returning to [facility] 06/26 for surgical replacement of right side skull. He transferred from [facility] to [facility] for acute inpatient rehab from 06/30 - 07/18, returning home with Home Health PT/OT/ST until 09/12. - Subjective Identification Type Name Identification Reconciled With Medical Record Others Present Family Observations April, Rod's , accompanied him to OT treatment session. He has been trying every night per April in re: donning pajama shirt on own. Patient/Caregiver Compliance with Home Good Exercise Program Comment w/ caregiver/family support - Objective Objective Measurements Object transfer R hand thumb/ 3rd digit. Hyperextension of DIP joints of 3rd, 4th and 5th digits of the L hand; hyperextension observed w/ object retrieval given digits are extended despite size of objects being manipulated. Please refer to below for progress towards meeting established OT goals. Functional abilities as of = min phys assist w/ donning UB/LB dressing ( however, is mod I w/ socks/ shoes); mod I w/ toileting hygiene, application of deodarant, and managing personal glasses. 01/06/20= Correctly differentiated between L vs R w/ laterality activity 5 out of 10 trials. 12/16/19= Impaired sensation of L UE; absent sensation of distal UE (volar/dorsal surfaces of the hand). Absent touch noted in the areas of light, pain, stereognosis. Report of some sense of touch noted w/ vibration elbow --> distal UE. Report of painful response to water to hand in morning. Short Term Goals 1. Patient will present with improved fine motor coordination of the affected upper extremity; this will be evidenced by Gerd's ability to place 8 small sized pegs in pegboard with the left hand, with therapist placing 1 peg at a time in the palm of the left hand. 12/09/20 = 50% met 2. 0-90 degrees active L sh abduction. 12/09/20= 75% met; 0 -85 degrees GOALS MET Actively participated in standardized digit/pharmacy services director strength testing. 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 *MET 10/21/19 Opposed L thumb to second digit pad 4 out of 5 trials w/ increased effort/ concentration. *MET 11/17/19 0-60 degrees active left forearm supination. *MET = 0-75 degrees Will average 15.0+ pounds of force with L pharmacy services director dynamometer II strength testing. *MET 12/09= avg 22.0# of force Opposed L thumb to each digit pad x 2 out of 2 cycles. *MET 12/24/19 0-30 degrees active left wrist extension. *MET 01/13/20. 0-40 w/ fingers flexed Actively utilizing the left hand with functional transfers . *MET 01/13/20 Actively participated in additional standardized assessments. *MET 01/13/20 Flipped over 10 various sized coins w/ S without use of edge of TT. *MET 06/16/20 Flipped five, 3 x 5 index cards, within 2 SD below the mean (within 11.88 seconds) ( Peter subtest). *MET 07/05/20; 10.9 sec Stacked 4 wood checkers w/ S. *MET 07/05/20 Placed 5+ small/medium/large pegs in pegboard w/ L hand. Transferred TT to pegboard. * MET 09/22/20 0-80 degrees active L sh abd. *MET 09/22/20 Place 8+ medium/large sized pegs in pegboard w/ L hand, w/ 1 peg placed at a time in the palm of L hand. *MET 10/25/20 Able to manage personal zippers of UB clothing items with increased time (increased difficulty when fatigued). * MET 12/09/20 Longterm Goals 1. Patient will be modified independent with execution of UE home exercise program utilizing provided written and visual instructions from therapist with support of family and caregivers. 12/09/20 = 50% met 2. Patient will be able to don upper body clothing items (e.g., donning of shirt/jacket ) with modified independence utilizing compensatory strategies on a daily basis based on spouse/patient verbal report, as observed over a 7- day period of time. 02/07/21= 75% met 3. Patient will present with improved bimanual coordination of the upper extremities, as evidenced by patient and patient's spouse's self-report of ability to manage personal reading materials, utilizing compensatory strategies/AE if/ as needed, with increased time while seated on stable surface on a daily basis with modified independence. 11/22/20= 50% met 4. Patient will present with improved functional independence/motor coordination of the left upper extremity; this will be evidenced by patient and spouse's verbal report of patient's ability to manage personal cell phone utilizing compensatory strategies/AE if/ as needed over short periods of time (5 to 10 minutes in length) on daily basis with the left hand. 11/22/20= 50% met GOALS MET Per , Rod is able to doff all UB clothing items w/ mod I on daily basis. *MET 12/30/19 - Treatment 2 Descriptor Self-care Activities Orientation. Differentiation between front vs back, left vs right, inside vs outside clothing materials. [place]/donning zipper vest. [place]/donning long sleeve snap button v-neck shirt. Exercises 1 Descriptor HEP/POC. Thelma, Rod's , was present throughout treatment session. Initiated orientation to left sided pockets of vest and left front pocket of sweats; initiated functional problem solving verbally prior to initiation of UB dressing process, including differentiation between left and right arm sleeves of v neck long sleeved shirt. Both Gerd and his denied questions. - Assessment Assessment of Improvement Active participation in all activities. Focus on functional abilities based per patient and 's request. Addressed UB dressing. Initiated orientation to and differentiation between left and right sleeves, front and back, inside/outside of clothing items prior to starting dressing process. Initiated orientation to and use of medium sized objects placed in left pockets of vest . Reviewed set-up on lap w/ pulley worker UB clothing. Improving orientation to UB clothing. Primary difficulty is identifying and locating left arm sleeve w/ pull-over UB clothing items; worked on identification of sleeve post set-up of clothing item on lap . Overall, progress towards goals is being made. PLAN: Focus on continuing to support functional incorporation of UE/hand in day-to-day life; re- inforcement of carry-over/ consistency w/ UE ROM exercises to maintain available shoulder ROM particularly w/ movement of UE to left of body; Recommend instruction on use of anibal bandage to support positioning of heating pad to assist couple. Gerd continues to present with L sided neglect, impaired vision, impaired L UE motor planning, decreased orientation to midline, impaired L UE sensation, and decreased functional independence. Thus, continued outpatient OT is recommended to maximize patient's success in day-to-day life with active incorporation of the L UE. Home Exercise Program Please refer to treatment section of note for specific details. - Plan Therapy Recommendations Continue with Current Program, Advance per Rehabilitation Protocol
--- NOTE | 2021-02-28 15:30 | OT.OPPOC ---
Physical, Occupational & Speech Therapy At [facility] Rod Nayak [id number] Rod Nayak Visit Care Team Role Provider Type Yesy Cortes MD Attending Provider Physician Primary Care Provider Address: [address] [place] [address], [id number] Occupational Therapy Plan of Care OT Outpatient Adult Evaluation Start: 09/29/19 07:33 Freq: Status: Active Protocol: Document 09/18/19 15:30 AMS (Rec: 09/29/19 08:13 AMS [id number]) General Information Session Time Visit Start Time 12:30 Visit Stop Time 13:25 Total Visit Minutes 55 Visit Information Visit Number [id number] Plan of Care Dates 09/18/19-12/11/2019 Insurance Information Medicare Setting Treatment Setting Outpatient Care Visit Type Note Type Initial Evaluation Referral Referring Physician Yesy Cortes MD Reason for Referral CVA Identification Identification Confirmed Yes: Photo ID Identification Confirmed By Medical Information Medical History Patient is a 69 year-old male referred to outpatient OT by PCP, Yesy Cortes MD, 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 Patient was transferred from [facility] to [facility] where craniotomy was performed 04/16/19. Patient completed 7 weeks of rehab at [facility] and then underwent secondary surgery on 06/26/19 to replace skull fragment. Patient was then at acute rehab facility 06/30/19-07/18/19 . He was discharged home with assist from and caregivers. He received Home Health PT/OT/PROCUREMENT TECHNICIAN until . Therapy Pain Assessment Pain When Pain Assessed Pre-treat Pain Present Pain Present Pain Reported Location Left Foot Intensity 5 Scale Used Numeric (0 - 10) Left Upper Leg Intensity 7 Scale Used Numeric (0 - 10) Lower Back Intensity 7 Scale Used Numeric (0 - 10) Left Arm Intensity 4 Scale Used Numeric (0 - 10) Bilateral Shoulder Intensity 5 Scale Used Numeric (0 - 10) ADLs Overall Ability Comments Impaired; and caregiver assists patient w/ ADLS Dressing Skill Level Impaired Skill Level Impaired Skill Level Impaired Bathing Skill Level Impaired Toileting Skill Level Impaired Observations Observations Observations AROM of L thumb noted. Use of lateral nichols pinch. Unable to oppose left thumb to second digit pad. In-Hand Manipulation [id number] Translation Right Level of Ability WFL Left Level of Ability Unable [id number] Translation Right Level of Ability WFL Left Level of Ability Unable Shift Right Level of Ability WFL Left Level of Ability Unable Simple Rotation Right Level of Ability WFL Left Level of Ability Unable Complex Rotation Right Level of Ability WFL Left Level of Ability Unable Goals Treatment Treatment Education completed re: positioning of UE when at rest ; instructed in positioning in w/c and when in supported sitting. Education focus on positioning of UE away from protective pattern and to the left of the body w/ supported wrist extension as tolerated. Recommended active TT ROM w/ scapular retraction/ protraction in frontal plane given no c/o pain/discomfort w / this exercise. Short Term Goals Short Term Goals 1. Patient will be able to oppose left thumb to second digit pad 4 out of 5 trials with increased effort and concentration demonstrating increasing ability to actively incorporate the left upper extremity/hand in day-to-day life. 2. 0-30 degrees active left wrist extension. 3. 0-60 degrees active left forearm supination. 4. Patient will demonstrate increased ability to actively incorporate L UE in day-to-day life, as evidenced by ability to tolerate left <-> right weight shifting x 10 trials, with hands positioned in frontal plane. 5. Patient will actively participate in standardized digit/integrity director strength testing as tolerated. Furnace Packer Goals Furnace Packer Goals 1. Patient will be modified independent with execution of UE home exercise program utilizing provided written and visual instructions from therapist with support of family and caregivers. 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 PMH : Significant for arthritis; back pain; blood pressure; fibromyalgia; 2 brain surgeries (March 2019); left sided neglect; impaired vision . PLOF: Independent w/ ADLS and IADLS. Evaluation findings: Reported pain/discomfort of L LE, lower back bilateral shoulders, and L UE; left sided neglect; impaired functional independence; patient focus on gait; poor tolerance for distal L UE splint; impaired sensation of L UE; L UE weakness; decreased L UE AROM; decreased object manipulation abilities of the L hand; spasticity into flexor pattern of UE; protective posturing of UE; impaired posture; impaired balance; and poor tolerance for UE weight bearing. Outpatient OT is recommended to address these areas in order to maximize Gerd's success with active participation in meaningful activities with active incorporation of the affected UE. Plan Comment 12 weeks Comment 1-2 times per week Therapeutic Contents Active Range of Motion, Adaptive Equipment Education, Client Education,Cognitive Skills Development,Functional Activities,Home Exercise Program,Joint Protection, Manual Therapy,Education, Neurodevelopment Treatment, Neuromuscular Re-Education, Self-Care,Stretching/ Flexibility Activities, Therapeutic Activities, Therapeutic Exercises, Modalities,Sensory Re- education Modalities As Needed,As Prescribed Types of Modalities Contrast Bath,E-Stim, Functional Stimulation (FES),T .E.N. Stimulation,TENS Placement/Application, Ultrasound Patient Instruction Home Exercise Program,Plan of Care,Questions/Concerns Sensory Assessment Sensory Profile2 Functional Wrist/Hand Scan Hand Side OT Outpatient Treatment Note - Adult Start: 09/29/19 07:33 Freq: Status: Active Protocol: Document 02/28/21 15:30 AMS (Rec: 03/01/21 09:09 AMS [id number]) OT Outpatient Adult Treatment Note Session Time Visit Start Time 10:30 Visit Stop Time 11:15 Total Visit Minutes 45 Visit Information Visit Number 11/28 Plan of Care Dates 02/28/21-05/23/21 Insurance Information Medicare Setting Treatment Setting Outpatient Care Visit Type Note Type Progress Note General Information General Information 70-yr-old male s/p 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 The pt was brought to [facility] ED where CT head revealed hemorrhage, then transferred via helicopter to [facility]. Pt underwent craniotomy on 04/16. He transferred to [facility] for rehab on 05/05 , where he remained until returning to [facility] 06/26 for surgical replacement of right side skull. He transferred from [facility] to [facility] for acute inpatient rehab from 06/30 - 07/18, returning home with Home Health PT/OT/ST until 09/12. - Subjective Identification Type Name Identification Reconciled With Medical Record Others Present Family Observations April, Rod's , accompanied him to OT treatment session. He has been working on his [employer] shirt every night per April. He has gotten it on 3 or 4 times in the last week per April. Patient/Caregiver Compliance with Home Excellent Exercise Program Comment w/ caregiver/family support - Objective Objective Measurements Object transfer R hand thumb/ 3rd digit. Hyperextension of DIP joints of 3rd, 4th and 5th digits of the L hand; hyperextension observed w/ object retrieval given digits are extended despite size of objects being manipulated. Please refer to below for progress towards meeting established OT goals. Functional abilities as of = min phys assist w/ donning UB/LB dressing ( however, is mod I w/ socks/ shoes); mod I w/ toileting hygiene, application of deodarant, and managing personal glasses. 01/06/20= Correctly differentiated between L vs R w/ laterality activity 5 out of 10 trials. 12/16/19= Impaired sensation of L UE; absent sensation of distal UE (volar/dorsal surfaces of the hand). Absent touch noted in the areas of light, pain, stereognosis. Report of some sense of touch noted w/ vibration elbow --> distal UE. Report of painful response to water to hand in morning. Short Term Goals 1. Patient will present with improved fine motor coordination of the affected upper extremity; this will be evidenced by Rod's ability to place 8 small sized pegs in pegboard with the left hand, with therapist placing 1 peg at a time in the palm of the left hand. 12/09/20 = 50% met ( 02/28/21= HAS NOT BEEN A FOCUS) 2. 0-90 degrees active L sh abduction. 12/09/20= 75% met; 0 -85 degrees (02/28/21= HAS NOT BEEN A FOCUS) GOALS MET Actively participated in standardized digit/integrity director strength testing. Special Events Driver/Lateral Nichols Pinch. *MET 10/21/19 Opposed L thumb to second digit pad 4 out of 5 trials w/ increased effort/ concentration. *MET 11/17/19 0-60 degrees active left forearm supination. *MET = 0-75 degrees Will average 15.0+ pounds of force with L integrity director dynamometer II strength testing. *MET 12/09= avg 22.0# of force Opposed L thumb to each digit pad x 2 out of 2 cycles. *MET 12/24/19 0-30 degrees active left wrist extension. *MET 01/13/20. 0-40 w/ fingers flexed Actively utilizing the left hand with functional transfers . *MET 01/13/20 Actively participated in additional standardized assessments. *MET 01/13/20 Flipped over 10 various sized coins w/ S without use of edge of TT. *MET 06/16/20 Flipped five, 3 x 5 index cards, within 2 SD below the mean (within 11.88 seconds) ( Peter subtest). *MET 07/05/20; 10.9 sec Stacked 4 wood checkers w/ S. *MET 07/05/20 Placed 5+ small/medium/large pegs in pegboard w/ L hand. Transferred TT to pegboard. * MET 09/22/20 0-80 degrees active L sh abd. *MET 09/22/20 Place 8+ medium/large sized pegs in pegboard w/ L hand, w/ 1 peg placed at a time in the palm of L hand. *MET 10/25/20 Able to manage personal zippers of UB clothing items with increased time (increased difficulty when fatigued). * MET 12/09/20 Furnace Packer Goals 1. Patient will be modified independent with execution of UE home exercise program utilizing provided written and visual instructions from therapist with support of family and caregivers. 02/28/21 = 50% met 2. Patient will be able to don upper body clothing items (e.g., donning of shirt/jacket ) with modified independence utilizing compensatory strategies on a daily basis based on spouse/patient verbal report, as observed over a 7- day period of time. 03/09/21= 75% met 3. Patient will present with improved bimanual coordination of the upper extremities, as evidenced by patient and patient's spouse's self-report of ability to manage personal reading materials, utilizing compensatory strategies/AE if/ as needed, with increased time while seated on stable surface on a daily basis with modified independence. 11/22/20= 50% met 4. Patient will present with improved functional independence/motor coordination of the left upper extremity; this will be evidenced by patient and spouse's verbal report of patient's ability to manage personal cell phone utilizing compensatory strategies/AE if/ as needed over short periods of time (5 to 10 minutes in length) on daily basis with the left hand. 11/22/20= 50% met (02/28/21= HAS NOT BEEN A FOCUS) GOALS MET Per , Rod is able to doff all UB clothing items w/ mod I on daily basis. *MET 12/30/19 - Treatment 2 Descriptor Self-care Activities Orientation. Differentiation between front vs back, left vs right, inside vs outside clothing materials. [place]/donning zip-up jacket. [place]/donning long sleeve snap button v-neck shirt. Exercises 1 Descriptor HEP/POC. Thelma, Rod's , was present throughout treatment session. Focused on identification of verbal cues to support optimal set-up with pull-over UB clothing items; cue to have 'collar away - facing forward' and other compensatory strategies to support location of left sleeve for UE (use of right arm inside and 'walking' of left hand down to find sleeve) . Both Rod and his denied questions. - Assessment Assessment of Improvement Based on feedback from Rod and his , therapist has been focusing on supporting Rod's functional independence with BADLS. Rod is making progress relative to UB dressing; he is demonstrating improving spatial awareness relative to UB clothing items (including ability to differentiate between front versus back, inside versus outside, top versus bottom, and left versus right sleeves) . He is demonstrating ability to locate pockets of left pockets of UB and LB clothing items utilizing R hand intermittently to support tactile feedback/confirmation. Rod however, does not yet consistently orient UB clothing items on lap with set -up of pull-over items. He also can become confused with motor planning when alternating between zip-up/ open front UB clothing versus pull-over UB clothing. Progress is being made though, given successful attempts being reported in the home without assist from April! Rod is reportedly only having occasional difficulties with LB clothing items (pants) and Thelma expressed interest in returning to practicing of tying shoe laces. Rod continues to present with L sided neglect, impaired vision, impaired L UE motor planning, decreased orientation to midline, impaired L UE sensation, and decreased functional independence. Continued outpatient OT is recommended to maximize Gerd's functional independence with incorporation of fine motor/ motor planning and strengthening activities to support functional gains. PLAN : Functional activities Home Exercise Program Please refer to treatment section of note for specific details. - Plan Therapy Recommendations Continue with Current Program, Advance per Rehabilitation Protocol Comment 12 weeks Comment 1 x per week versus 1 x every other week Therapeutic Contents Active Range of Motion, Adaptive Equipment Education, Client Education,Cognitive Skills Development,Functional Activities,Home Exercise Program,Joint Protection, Manual Therapy,Education, Neurodevelopment Treatment, Self-Care,Stretching/ Flexibility Activities, Therapeutic Activities, Therapeutic Exercises, Modalities Types of Modalities E-Stim,T.E.N. Stimulation,TENS Placement/Application, Ultrasound Additional Types of Modalities heat/ice Electronically Signed by: Paula Carvajal OT 03/01/21 0910 Please Sign and Return: I have reviewed this Plan of Care and certify that the skilled therapy services above are required to meet the patient?s needs. Physician Signature Date Printed Name and Credentials Clinical Instructor Signature Printed Name and Credentials
--- NOTE | 2021-03-14 12:09 | OT.OP.TRT ---
Visit Care Team Role Provider Type Yesy Cortes MD Attending Provider Physician Primary Care Provider Specialty: Internal Medicine Address: [address] [place] [address], [id number] Email: [email or web address] Treatment Note OT Outpatient Treatment Note - Adult Start: 09/29/19 07:33 Freq: Status: Active Protocol: Document 03/14/21 11:59 AMS (Rec: 03/14/21 12:09 AMS [id number]) OT Outpatient Adult Treatment Note Session Time Visit Start Time 10:30 Visit Stop Time 11:15 Visit Information Visit Number 12/29 Plan of Care Dates 02/28/21-05/23/21 Insurance Information Medicare Setting Treatment Setting Outpatient Care Visit Type Note Type Treatment Note General Information General Information 70-yr-old male s/p 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 The pt was brought to [facility] ED where CT head revealed hemorrhage, then transferred via helicopter to [facility]. Pt underwent craniotomy on 04/16. He transferred to [facility] for rehab on 05/05 , where he remained until returning to [facility] 06/26 for surgical replacement of right side skull. He transferred from [facility] to [facility] for acute inpatient rehab from 06/30 - 07/18, returning home with Home Health PT/OT/ST until 09/12. - Subjective Identification Type Name Identification Reconciled With Medical Record Others Present Family Observations April, Rod's , accompanied him to OT treatment session. He has been working on his [employer] shirt every night per April. He has gotten it on 3 or 4 times in the last week per April. Patient/Caregiver Compliance with Home Excellent Exercise Program Comment w/ caregiver/family support - Objective Objective Measurements Object transfer R hand thumb/ 3rd digit. Hyperextension of DIP joints of 3rd, 4th and 5th digits of the L hand; hyperextension observed w/ object retrieval given digits are extended despite size of objects being manipulated. Please refer to below for progress towards meeting established OT goals. Functional abilities as of = min phys assist w/ donning UB/LB dressing ( however, is mod I w/ socks/ shoes); mod I w/ toileting hygiene, application of deodarant, and managing personal glasses. 01/06/20= Correctly differentiated between L vs R w/ laterality activity 5 out of 10 trials. 12/16/19= Impaired sensation of L UE; absent sensation of distal UE (volar/dorsal surfaces of the hand). Absent touch noted in the areas of light, pain, stereognosis. Report of some sense of touch noted w/ vibration elbow --> distal UE. Report of painful response to water to hand in morning. Short Term Goals 1. Patient will present with improved fine motor coordination of the affected upper extremity; this will be evidenced by Gerd's ability to place 8 small sized pegs in pegboard with the left hand, with therapist placing 1 peg at a time in the palm of the left hand. 12/09/20 = 50% met ( 02/28/21= HAS NOT BEEN A FOCUS) 2. 0-90 degrees active L sh abduction. 12/09/20= 75% met; 0 -85 degrees (02/28/21= HAS NOT BEEN A FOCUS) GOALS MET Actively participated in standardized digit/fuel system maintenance supervisor strength testing. Mechanical Equipment Sales Engineer/Lateral [employer] Pinch. *MET 10/21/19 Opposed L thumb to second digit pad 4 out of 5 trials w/ increased effort/ concentration. *MET 11/17/19 0-60 degrees active left forearm supination. *MET = 0-75 degrees Will average 15.0+ pounds of force with L fuel system maintenance supervisor dynamometer II strength testing. *MET 12/09= avg 22.0# of force Opposed L thumb to each digit pad x 2 out of 2 cycles. *MET 12/24/19 0-30 degrees active left wrist extension. *MET 01/13/20. 0-40 w/ fingers flexed Actively utilizing the left hand with functional transfers . *MET 01/13/20 Actively participated in additional standardized assessments. *MET 01/13/20 Flipped over 10 various sized coins w/ S without use of edge of TT. *MET 06/16/20 Flipped five, 3 x 5 index cards, within 2 SD below the mean (within 11.88 seconds) ( Peter subtest). *MET 07/05/20; 10.9 sec Stacked 4 wood checkers w/ S. *MET 07/05/20 Placed 5+ small/medium/large pegs in pegboard w/ L hand. Transferred TT to pegboard. * MET 09/22/20 0-80 degrees active L sh abd. *MET 09/22/20 Place 8+ medium/large sized pegs in pegboard w/ L hand, w/ 1 peg placed at a time in the palm of L hand. *MET 10/25/20 Able to manage personal zippers of UB clothing items with increased time (increased difficulty when fatigued). * MET 12/09/20 Halfway Goals 1. Patient will be modified independent with execution of UE home exercise program utilizing provided written and visual instructions from therapist with support of family and caregivers. 02/28/21 = 50% met 2. Patient will be able to don upper body clothing items (e.g., donning of shirt/jacket ) with modified independence utilizing compensatory strategies on a daily basis based on spouse/patient verbal report, as observed over a 7- day period of time. 03/09/21= 75% met 3. Patient will present with improved bimanual coordination of the upper extremities, as evidenced by patient and patient's spouse's self-report of ability to manage personal reading materials, utilizing compensatory strategies/AE if/ as needed, with increased time while seated on stable surface on a daily basis with modified independence. 11/22/20= 50% met 4. Patient will present with improved functional independence/motor coordination of the left upper extremity; this will be evidenced by patient and spouse's verbal report of patient's ability to manage personal cell phone utilizing compensatory strategies/AE if/ as needed over short periods of time (5 to 10 minutes in length) on daily basis with the left hand. 11/22/20= 50% met (02/28/21= HAS NOT BEEN A FOCUS) GOALS MET Per , Rod is able to doff all UB clothing items w/ mod I on daily basis. *MET 12/30/19 - Treatment 2 Descriptor Self-care Activities Exercises 1 Descriptor HEP/POC. Thelma, Rod's , was present throughout treatment session. Answered questions re: UE. Recommended x 5 min daily of proximal UE exercises given that Stephanie has been focusing on PT based goals/ambulation. Discussed reducing/breaking up time throughout the day as needed. Discussed use of arm pulleys, arm circles, horizontal abd/ add, sh abd. Education was completed re: tendency to lean to R with L UE exercises; recommended completing bilaterally to discourage compensatory pattern. Requested identification of any other functional goals given that progress is reportedly being observed w/ UB dressing. Both Gerd and his denied questions. - Assessment Assessment of Improvement Focus of treatment session on L UE questions re: recommendations for ROM/ther ex. Gerd reported donning v- neck pull-over zipper jacket on his own this morning without assistance! reports that Gerd needs assistance if any errors are made re: orientation of clothing (inside out pulling of sleeve, et cetera). Tendency to lean to R with movement of L UE. Will need to follow-up re: carry-over of recommendations for UE. Inquired about additional functional areas that Gerd/ Thelma would like to see addressed; will need to follow -up with couple. Recommend re- assessing flexion of MPJs of digits based on feedback and to determine if further loss of ROM has occurred. Gerd continues to present with L sided neglect, impaired vision, impaired L UE motor planning, decreased orientation to midline, impaired L UE sensation, and decreased functional independence. Continued outpatient OT is recommended to maximize Gerd's functional independence with incorporation of fine motor/ motor planning and strengthening activities to support functional gains. PLAN : Functional activities Home Exercise Program Please refer to treatment section of note for specific details. - Plan Therapy Recommendations Continue with Current Program, Advance per Rehabilitation Protocol
--- NOTE | 2021-03-30 15:30 | OT.OP.TRT ---
Visit Care Team Role Provider Type Yesy Cortes MD Attending Provider Physician Primary Care Provider Specialty: Internal Medicine Address: [address] [place] [address], [address] Email: [email or web address] Therapy Treatment Note OT Outpatient Treatment Note - Adult Start: 09/29/19 07:33 Freq: Status: Active Protocol: Document 03/30/21 15:30 AMS (Rec: 03/31/21 13:16 AMS [id number]) OT Outpatient Adult Treatment Note Session Time Visit Start Time 10:30 Visit Stop Time 11:15 Total Visit Minutes 45 Visit Information Visit Number 01/26 Plan of Care Dates 02/28/21-05/23/21 Insurance Information Medicare Setting Treatment Setting Outpatient Care Visit Type Note Type Treatment Note General Information General Information 70-yr-old male s/p 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 The pt was brought to [facility] ED where CT head revealed hemorrhage, then transferred via helicopter to [facility]. Pt underwent craniotomy on 04/16. He transferred to [facility] for rehab on 05/05 , where he remained until returning to [facility] 06/26 for surgical replacement of right side skull. He transferred from [facility] to [facility] for acute inpatient rehab from 06/30 - 07/18, returning home with Home Health PT/OT/ST until 09/12. - Subjective Identification Type Name Identification Reconciled With Medical Record Others Present Family Observations April, Rod's , accompanied him to OT treatment session. He has PT right after this per April. Patient/Caregiver Compliance with Home Excellent Exercise Program Comment w/ caregiver/family support - Objective Objective Measurements Object transfer R hand thumb/ 3rd digit. Hyperextension of DIP joints of 3rd, 4th and 5th digits of the L hand; hyperextension observed w/ object retrieval given digits are extended despite size of objects being manipulated. Please refer to below for progress towards meeting established OT goals. Functional abilities as of = min phys assist w/ donning UB/LB dressing ( however, is mod I w/ socks/ shoes); mod I w/ toileting hygiene, application of deodarant, and managing personal glasses. 01/06/20= Correctly differentiated between L vs R w/ laterality activity 5 out of 10 trials. 12/16/19= Impaired sensation of L UE; absent sensation of distal UE (volar/dorsal surfaces of the hand). Absent touch noted in the areas of light, pain, stereognosis. Report of some sense of touch noted w/ vibration elbow --> distal UE. Report of painful response to water to hand in morning. Short Term Goals 1. Patient will present with improved fine motor coordination of the affected upper extremity; this will be evidenced by Gerd's ability to place 8 small sized pegs in pegboard with the left hand, with therapist placing 1 peg at a time in the palm of the left hand. 12/09/20 = 50% met ( 02/28/21= HAS NOT BEEN A FOCUS) 2. 0-90 degrees active L sh abduction. 12/09/20= 75% met; 0 -85 degrees (02/28/21= HAS NOT BEEN A FOCUS) GOALS MET Actively participated in standardized digit/cupola tender strength testing. Director Of Volunteer Services/Lateral Nichols Pinch. *MET 10/21/19 Opposed L thumb to second digit pad 4 out of 5 trials w/ increased effort/ concentration. *MET 11/17/19 0-60 degrees active left forearm supination. *MET = 0-75 degrees Will average 15.0+ pounds of force with L cupola tender dynamometer II strength testing. *MET 12/09= avg 22.0# of force Opposed L thumb to each digit pad x 2 out of 2 cycles. *MET 12/24/19 0-30 degrees active left wrist extension. *MET 01/13/20. 0-40 w/ fingers flexed Actively utilizing the left hand with functional transfers . *MET 01/13/20 Actively participated in additional standardized assessments. *MET 01/13/20 Flipped over 10 various sized coins w/ S without use of edge of TT. *MET 06/16/20 Flipped five, 3 x 5 index cards, within 2 SD below the mean (within 11.88 seconds) ( Peter subtest). *MET 07/05/20; 10.9 sec Stacked 4 wood checkers w/ S. *MET 07/05/20 Placed 5+ small/medium/large pegs in pegboard w/ L hand. Transferred TT to pegboard. * MET 09/22/20 0-80 degrees active L sh abd. *MET 09/22/20 Place 8+ medium/large sized pegs in pegboard w/ L hand, w/ 1 peg placed at a time in the palm of L hand. *MET 10/25/20 Able to manage personal zippers of UB clothing items with increased time (increased difficulty when fatigued). * MET 12/09/20 [place] Mixer Operator Goals 1. Patient will be modified independent with execution of UE home exercise program utilizing provided written and visual instructions from therapist with support of family and caregivers. 02/28/21 = 50% met 2. Patient will be able to don upper body clothing items (e.g., donning of shirt/jacket ) with modified independence utilizing compensatory strategies on a daily basis based on spouse/patient verbal report, as observed over a 7- day period of time. 03/09/21= 75% met 3. Patient will present with improved bimanual coordination of the upper extremities, as evidenced by patient and patient's spouse's self-report of ability to manage personal reading materials, utilizing compensatory strategies/AE if/ as needed, with increased time while seated on stable surface on a daily basis with modified independence. 11/22/20= 50% met 4. Patient will present with improved functional independence/motor coordination of the left upper extremity; this will be evidenced by patient and spouse's verbal report of patient's ability to manage personal cell phone utilizing compensatory strategies/AE if/ as needed over short periods of time (5 to 10 minutes in length) on daily basis with the left hand. 11/22/20= 50% met (02/28/21= HAS NOT BEEN A FOCUS) GOALS MET Per , Rod is able to doff all UB clothing items w/ mod I on daily basis. *MET 12/30/19 - Treatment 2 Descriptor Self-care Activities Exercises 1 Descriptor HEP/POC. Thelma, Rod's , was present throughout treatment session. Thelma and Rod reported approx one-third to half compliance w/ execution of home exercise program; they indicated that they now have hired Stephanie 1 x per week to help with exercises (including walking for PT). Thelma indicated prior to stroke Gerd would have walked for exercise. Instructed in passive stretch w/ use of flat surface to address tightening into flexion of MCP joints primarily of the 4th and 5th digits. Recommended focusing on v-neck versus button-up/ zipper donning of UB clothing at this time; recommended Thelma completes set-up and that they use same set-up for morning routine as much as possible. Both Gerd and his denied questions. - Assessment Assessment of Improvement Improved ext at MCP joints of 2nd and 3rd digits of L hand; decreased ext at MCP joints of 4th and 5th digits of L hand. Instructed in exercise. Some improvement relative to compliance w/ UE exercises; however, Gerd could continue to improve in this area. Altered approach to UB dressing; will focus on t- shirts/long sleeve shirts at this time. See treatment section above for additional details. Gerd continues to present with L sided neglect, impaired vision, impaired L UE motor planning, decreased orientation to midline, impaired L UE sensation, and decreased functional independence. Continued outpatient OT is recommended to maximize Gerd's functional independence with incorporation of fine motor/ motor planning and strengthening activities to support functional gains. PLAN : Functional activities Home Exercise Program Please refer to treatment section of note for specific details. - Plan Therapy Recommendations Continue with Current Program, Advance per Rehabilitation Protocol
--- NOTE | 2021-04-11 15:48 | OT.OP.TRT ---
Visit Care Team Role Provider Type Yesy Cortes MD Attending Provider Physician Primary Care Provider Specialty: Internal Medicine Address: [address] [place] [address], [id number] Email: [email or web address] Occupational Therapy Treatment Note OT Outpatient Treatment Note - Adult Start: 09/29/19 07:33 Freq: Status: Active Protocol: Document 04/11/21 15:39 AMS (Rec: 04/11/21 15:48 AMS [id number]) OT Outpatient Adult Treatment Note Session Time Visit Start Time 10:30 Visit Stop Time 11:15 Total Visit Minutes 45 Visit Information Visit Number 02/26 Plan of Care Dates 02/28/21-05/23/21 Insurance Information Medicare Setting Treatment Setting Outpatient Care Visit Type Note Type Treatment Note General Information General Information 70-yr-old male s/p 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 The pt was brought to [facility] ED where CT head revealed hemorrhage, then transferred via helicopter to [facility]. Pt underwent craniotomy on 04/16. He transferred to [facility] for rehab on 05/05 , where he remained until returning to [facility] 06/26 for surgical replacement of right side skull. He transferred from [facility] to [facility] for acute inpatient rehab from 06/30 - 07/18, returning home with Home Health PT/OT/ST until 09/12. - Subjective Identification Type Name Identification Reconciled With Medical Record Others Present Family Observations April, Rod's , accompanied him to OT treatment session. I wanted to work on this per Rod in re: donbryn of poncathryn . Patient/Caregiver Compliance with Home Excellent Exercise Program Comment w/ caregiver/family support - Objective Objective Measurements Object transfer R hand thumb/ 3rd digit. Hyperextension of DIP joints of 3rd, 4th and 5th digits of the L hand; hyperextension observed w/ object retrieval given digits are extended despite size of objects being manipulated. Please refer to below for progress towards meeting established OT goals. Functional abilities as of = min phys assist w/ donning UB/LB dressing ( however, is mod I w/ socks/ shoes); mod I w/ toileting hygiene, application of deodarant, and managing personal glasses. 2/18/20= Correctly differentiated between L vs R w/ laterality activity 5 out of 10 trials. 12/16/19= Impaired sensation of L UE; absent sensation of distal UE (volar/dorsal surfaces of the hand). Absent touch noted in the areas of light, pain, stereognosis. Report of some sense of touch noted w/ vibration elbow --> distal UE. Report of painful response to water to hand in morning. Short Term Goals 1. Patient will present with improved fine motor coordination of the affected upper extremity; this will be evidenced by Gerd's ability to place 8 small sized pegs in pegboard with the left hand, with therapist placing 1 peg at a time in the palm of the left hand. 12/09/20 = 50% met ( 02/28/21= HAS NOT BEEN A FOCUS) 2. 0-90 degrees active L sh abduction. 12/09/20= 75% met; 0 -85 degrees (02/28/21= HAS NOT BEEN A FOCUS) GOALS MET Actively participated in standardized digit/petrography teacher strength testing. Project Manager Senior/Lateral Nichols Pinch. *MET 10/21/19 Opposed L thumb to second digit pad 4 out of 5 trials w/ increased effort/ concentration. *MET 11/17/19 0-60 degrees active left forearm supination. *MET = 0-75 degrees Will average 15.0+ pounds of force with L petrography teacher dynamometer II strength testing. *MET 12/09= avg 22.0# of force Opposed L thumb to each digit pad x 2 out of 2 cycles. *MET 12/24/19 0-30 degrees active left wrist extension. *MET 01/13/20. 0-40 w/ fingers flexed Actively utilizing the left hand with functional transfers . *MET 01/13/20 Actively participated in additional standardized assessments. *MET 01/13/20 Flipped over 10 various sized coins w/ S without use of edge of TT. *MET 06/16/20 Flipped five, 3 x 5 index cards, within 2 SD below the mean (within 11.88 seconds) ( Peter subtest). *MET 07/05/20; 10.9 sec Stacked 4 wood checkers w/ S. *MET 07/05/20 Placed 5+ small/medium/large pegs in pegboard w/ L hand. Transferred TT to pegboard. * MET 09/22/20 0-80 degrees active L sh abd. *MET 09/22/20 Place 8+ medium/large sized pegs in pegboard w/ L hand, w/ 1 peg placed at a time in the palm of L hand. *MET 10/25/20 Able to manage personal zippers of UB clothing items with increased time (increased difficulty when fatigued). * MET 12/09/20 Lead Nuclear Medicine Technologist Goals 1. Patient will be modified independent with execution of UE home exercise program utilizing provided written and visual instructions from therapist with support of family and caregivers. 02/28/21 = 50% met 2. Patient will be able to don upper body clothing items (e.g., donning of shirt/jacket ) with modified independence utilizing compensatory strategies on a daily basis based on spouse/patient verbal report, as observed over a 7- day period of time. 04/11/21= 75% met 3. Patient will present with improved bimanual coordination of the upper extremities, as evidenced by patient and patient's spouse's self-report of ability to manage personal reading materials, utilizing compensatory strategies/AE if/ as needed, with increased time while seated on stable surface on a daily basis with modified independence. 04/11/21 = 50% met 4. Patient will present with improved functional independence/motor coordination of the left upper extremity; this will be evidenced by patient and spouse's verbal report of patient's ability to manage personal cell phone utilizing compensatory strategies/AE if/ as needed over short periods of time (5 to 10 minutes in length) on daily basis with the left hand. 04/11/21 = 50% met GOALS MET Per , Rod is able to doff all UB clothing items w/ mod I on daily basis. *MET 12/30/19 - Treatment 2 Descriptor Self-care Activities Exercises 1 Descriptor HEP/POC. Thelma, Rod's , was present throughout treatment session. Recommended continued support w/ set-up for upper body dressing given continued difficulties w/ self set-up and differentiation between front and back. Recommended continuing to practice flattening of hand; discussed use of table versus isolated use of knee to support inclusion of 4th and 5th digits in the stretch. Recommended practicing of finger digit isolation ( formation of numbers w/ left hand) and tapping isolated fingers on surface (piano keys ). Both Rod and his denied questions. - Assessment Assessment of Improvement Worked on self-donning of sweatshirt material based poncho. Assist w/ set-up and cueing to support functional motor planning/problem solving . Gerd was able to differentiate between inside and outside of poncho with verbal supports. Maximum difficulty w/ imitation of images of finger/hand poses with the right or the left hand. Improved with repetition within treatment session. Difficulty isolating digits of the left hand with motor imitation. Gerd continues to present with L sided neglect, impaired vision, impaired L UE motor planning, decreased orientation to midline, impaired L UE sensation, and decreased functional independence. Continued outpatient OT is recommended to maximize Gerd's functional independence with incorporation of fine motor/ motor planning and strengthening activities to support functional gains. PLAN : Functional activities Home Exercise Program Please refer to treatment section of note for specific details. - Plan Therapy Recommendations Continue with Current Program, Advance per Rehabilitation Protocol
--- NOTE | 2021-04-28 16:12 | OT.OP.TRT ---
Visit Care Team Role Provider Type Yesy Cortes MD Attending Provider Physician Primary Care Provider Specialty: Internal Medicine Address: [address] [place] [address], [id number] Email: [email or web address] Occupational Therapy Treatment Note OT Outpatient Treatment Note - Adult Start: 09/29/19 07:33 Freq: Status: Active Protocol: Document 04/28/21 16:09 AMS (Rec: 04/28/21 16:12 AMS [id number]) OT Outpatient Adult Treatment Note Session Time Visit Start Time 13:30 Visit Stop Time 14:20 Total Visit Minutes 50 Visit Information Visit Number 03/28 Plan of Care Dates 02/28/21-05/23/21 Insurance Information Medicare Setting Treatment Setting Outpatient Care Visit Type Note Type Treatment Note General Information General Information 70-yr-old male s/p 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 The pt was brought to [facility] ED where CT head revealed hemorrhage, then transferred via helicopter to [facility]. Pt underwent craniotomy on 04/16. He transferred to [facility] for rehab on 05/05 , where he remained until returning to [facility] 06/26 for surgical replacement of right side skull. He transferred from [facility] to [facility] for acute inpatient rehab from 06/30 - 07/18, returning home with Home Health PT/OT/ST until 09/12. - Subjective Identification Type Name Identification Reconciled With Medical Record Others Present Family Observations April, Rod's , accompanied him to OT treatment session. Patient/Caregiver Compliance with Home Excellent Exercise Program Comment w/ caregiver/family support - Objective Objective Measurements Object transfer R hand thumb/ 3rd digit. Hyperextension of DIP joints of 3rd, 4th and 5th digits of the L hand; hyperextension observed w/ object retrieval given digits are extended despite size of objects being manipulated. Please refer to below for progress towards meeting established OT goals. Functional abilities as of = min phys assist w/ donning UB/LB dressing ( however, is mod I w/ socks/ shoes); mod I w/ toileting hygiene, application of deodarant, and managing personal glasses. 01/06/20= Correctly differentiated between L vs R w/ laterality activity 5 out of 10 trials. 12/16/19= Impaired sensation of L UE; absent sensation of distal UE (volar/dorsal surfaces of the hand). Absent touch noted in the areas of light, pain, stereognosis. Report of some sense of touch noted w/ vibration elbow --> distal UE. Report of painful response to water to hand in morning. Short Term Goals 1. Patient will present with improved fine motor coordination of the affected upper extremity; this will be evidenced by Gerd's ability to place 8 small sized pegs in pegboard with the left hand, with therapist placing 1 peg at a time in the palm of the left hand. 12/09/20 = 50% met ( 02/28/21= HAS NOT BEEN A FOCUS) 2. 0-90 degrees active L sh abduction. 12/09/20= 75% met; 0 -85 degrees (02/28/21= HAS NOT BEEN A FOCUS) GOALS MET Actively participated in standardized digit/landfill attendant strength testing. Checkering Machine Adjuster/Lateral Nichols Pinch. *MET 10/21/19 Opposed L thumb to second digit pad 4 out of 5 trials w/ increased effort/ concentration. *MET 11/17/19 0-60 degrees active left forearm supination. *MET = 0-75 degrees Will average 15.0+ pounds of force with L landfill attendant dynamometer II strength testing. *MET 12/09= avg 22.0# of force Opposed L thumb to each digit pad x 2 out of 2 cycles. *MET 12/24/19 0-30 degrees active left wrist extension. *MET 01/13/20. 0-40 w/ fingers flexed Actively utilizing the left hand with functional transfers . *MET 01/13/20 Actively participated in additional standardized assessments. *MET 01/13/20 Flipped over 10 various sized coins w/ S without use of edge of TT. *MET 06/16/20 Flipped five, 3 x 5 index cards, within 2 SD below the mean (within 11.88 seconds) ( Peter subtest). *MET 07/05/20; 10.9 sec Stacked 4 wood checkers w/ S. *MET 07/05/20 Placed 5+ small/medium/large pegs in pegboard w/ L hand. Transferred TT to pegboard. * MET 09/22/20 0-80 degrees active L sh abd. *MET 09/22/20 Place 8+ medium/large sized pegs in pegboard w/ L hand, w/ 1 peg placed at a time in the palm of L hand. *MET 10/25/20 Able to manage personal zippers of UB clothing items with increased time (increased difficulty when fatigued). * MET 12/09/20 Internet Designer Goals 1. Patient will be modified independent with execution of UE home exercise program utilizing provided written and visual instructions from therapist with support of family and caregivers. 02/28/21 = 50% met 2. Patient will be able to don upper body clothing items (e.g., donning of shirt/jacket ) with modified independence utilizing compensatory strategies on a daily basis based on spouse/patient verbal report, as observed over a 7- day period of time. 04/11/21= 75% met 3. Patient will present with improved bimanual coordination of the upper extremities, as evidenced by patient and patient's spouse's self-report of ability to manage personal reading materials, utilizing compensatory strategies/AE if/ as needed, with increased time while seated on stable surface on a daily basis with modified independence. 04/11/21 = 50% met 4. Patient will present with improved functional independence/motor coordination of the left upper extremity; this will be evidenced by patient and spouse's verbal report of patient's ability to manage personal cell phone utilizing compensatory strategies/AE if/ as needed over short periods of time (5 to 10 minutes in length) on daily basis with the left hand. 04/11/21 = 50% met GOALS MET Per , Rod is able to doff all UB clothing items w/ mod I on daily basis. *MET 12/30/19 - Treatment 2 Descriptor Self-care Activities Exercises 1 Descriptor HEP/POC. Thelma, Rod's , was present throughout treatment session. - Assessment Assessment of Improvement Worked on self-donning of sweatshirt material based poncho and t-shirt. Assist w/ set-up and cueing to support functional motor planning/ problem solving. Gerd continues to present with L sided neglect, impaired vision, impaired L UE motor planning, decreased orientation to midline, impaired L UE sensation, and decreased functional independence. Continued outpatient OT is recommended to maximize Gerd's functional independence with incorporation of fine motor/ motor planning and strengthening activities to support functional gains. PLAN : Functional activities Home Exercise Program Please refer to treatment section of note for specific details. - Plan Therapy Recommendations Continue with Current Program, Advance per Rehabilitation Protocol
--- NOTE | 2021-06-06 13:28 | OT.OPPN ---
Current Diagnoses Nontraumatic intracerebral hemorrhage, unspecified (06/06/21) Other lack of coordination (06/06/21) Weakness (06/06/21) OT Progress Note OT Outpatient Standardized Assessments Start: 09/29/19 07:33 Freq: Status: Active Protocol: Document 06/06/21 13:15 AMS (Rec: 06/06/21 13:28 AMS [id number]) Jebsen-Mely Hand Function Test Date of Test Date of Test 01/06/20 Writing Comments N/A Lifting Small, Common Objects Non-Dominant Hand 16.6 Dominant Hand 6.3 Comments Mean Subtest Scores for Men 60 -69 years of age in sec (+/- SD) Non-dominant hand = 7.48 +/- 2 .20; > 4 SD above the mean Dominant hand = 6.72 +/- 1.39; slightly faster then mean Simulated Feeding Comments N/A Stacking Checkers Non-Dominant Hand Unable Dominant Hand 5.2 Comments Mean Subtest Scores for Men 60 -69 years of age in sec (+/- SD) Non-dominant hand = 5.46 +/- 2 .83 Dominant hand = 4.19 +/- 0.93 ; slightly > 1 SD above mean Lifting Large, Light Objects Non-Dominant Hand 34.3 Dominant Hand 4.4 Comments Mean Subtest Scores for Men 60 -69 years of age in sec (+/- SD) Non-dominant hand = 3.94 +/- 0 .69; > 5+ SD above the man Dominant hand = 3.69 +/- 0.71; 1 SD above mean Lifting Large, Heavy Objects Non-Dominant Hand 39.8 Dominant Hand 5.8 Comments Mean Subtest Scores for Men 60 -69 years of age in sec (+/- SD) Non-dominant hand = 4.03 +/- 0 .78; > 5+ SD above the man Dominant hand = 3.62 +/- 0.73; slightly greater than 2 SD above the mean 9-Hole Peg Hand Test Hand Left Date of Test 01/13/20 Therapist SHELBY Austin Comments Unable Right Comments Did not perform assessment given patient unable to complete w/ L hand OT Outpatient Treatment Note - Adult Start: 09/29/19 07:33 Freq: Status: Active Protocol: Document 06/06/21 13:15 AMS (Rec: 06/06/21 13:28 AMS [id number]) OT Outpatient Adult Treatment Note Session Time Visit Start Time 10:30 Visit Stop Time 11:15 Total Visit Minutes 45 Visit Information Visit Number 11/28 Plan of Care Dates 05/23/21-08/15/21 Insurance Information Medicare Setting Treatment Setting Outpatient Care Visit Type Note Type Progress Note General Information General Information 70-yr-old male s/p 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 The pt was brought to [facility] ED where CT head revealed hemorrhage, then transferred via helicopter to [facility]. Pt underwent craniotomy on 04/16. He transferred to [facility] for rehab on 05/05 , where he remained until returning to [facility] 06/26 for surgical replacement of right side skull. He transferred from [facility] to [facility] for acute inpatient rehab from 06/30 - 07/18, returning home with Home Health PT/OT/ST until 09/12. - Subjective Identification Type Name Identification Reconciled With Medical Record Others Present Family Observations April, Gerd's , accompanied him to OT treatment session. I am able to do my shirt 60% of the time per Gerd (and April). She has to help me with my belt and if my shoes become untied. I am using this left hand with limitations per Gerd. Patient/Caregiver Compliance with Home Excellent Exercise Program Comment w/ caregiver/family support - Objective Objective Measurements Object transfer R hand thumb/ 3rd digit. Hyperextension of DIP joints of 3rd, 4th and 5th digits of the L hand; hyperextension observed w/ object retrieval given digits are extended despite size of objects being manipulated. Please refer to below for progress towards meeting established OT goals. Functional abilities as of = min phys assist w/ donning UB/LB dressing ( however, is mod I w/ socks/ shoes); mod I w/ toileting hygiene, application of deodarant, and managing personal glasses. 01/06/20= Correctly differentiated between L vs R w/ laterality activity 5 out of 10 trials. 12/16/19= Impaired sensation of L UE; absent sensation of distal UE (volar/dorsal surfaces of the hand). Absent touch noted in the areas of light, pain, stereognosis. Report of some sense of touch noted w/ vibration elbow --> distal UE. Report of painful response to water to hand in morning. Short Term Goals 1. Patient will present with improved fine motor coordination of the affected upper extremity; this will be evidenced by Gerd's ability to place 8 small sized pegs in pegboard with the left hand, with therapist placing 1 peg at a time in the palm of the left hand. 06/06/21 = 50% met GOALS MET Actively participated in standardized digit/patch worker strength testing. Assembly Line Machine Operator/Lateral Nichols Pinch. *MET 10/21/19 Opposed L thumb to second digit pad 4 out of 5 trials w/ increased effort/ concentration. *MET 11/17/19 0-60 degrees active left forearm supination. *MET = 0-75 degrees Will average 15.0+ pounds of force with L patch worker dynamometer II strength testing. *MET 12/09= avg 22.0# of force Opposed L thumb to each digit pad x 2 out of 2 cycles. *MET 12/24/19 0-30 degrees active left wrist extension. *MET 01/13/20. 0-40 w/ fingers flexed Actively utilizing the left hand with functional transfers . *MET 01/13/20 Actively participated in additional standardized assessments. *MET 01/13/20 Flipped over 10 various sized coins w/ S without use of edge of TT. *MET 06/16/20 Flipped five, 3 x 5 index cards, within 2 SD below the mean (within 11.88 seconds) ( Peter subtest). *MET 07/05/20; 10.9 sec Stacked 4 wood checkers w/ S. *MET 07/05/20 Placed 5+ small/medium/large pegs in pegboard w/ L hand. Transferred TT to pegboard. * MET 09/22/20 0-80 degrees active L sh abd. *MET 09/22/20 Place 8+ medium/large sized pegs in pegboard w/ L hand, w/ 1 peg placed at a time in the palm of L hand. *MET 10/25/20 Able to manage personal zippers of UB clothing items with increased time (increased difficulty when fatigued). * MET 12/09/20 0-90 degrees active L sh abduction. *MET 06/06/21 Rotor Casting Machine Setup Operator Goals 1. Patient will be modified independent with execution of UE home exercise program utilizing provided written and visual instructions from therapist with support of family and caregivers. 06/06/21 = 50% met 2. Patient will be able to don upper body clothing items (e.g., donning of shirt/jacket ) with modified independence utilizing compensatory strategies on a daily basis based on spouse/patient verbal report, as observed over a 7- day period of time. 06/06/21= 50% met; completing 60% of the time 3. Patient will present with improved functional independence/motor coordination of the left upper extremity; this will be evidenced by patient and spouse's verbal report of patient's ability to manage personal cell phone utilizing compensatory strategies/AE if/ as needed over short periods of time (5 to 10 minutes in length) on daily basis with the left hand. 04/11/21 = 50% met 4. Patient will be able to manage personal belt with modified independence utilizing compensatory strategies on a daily basis based on spouse/patient verbal report, as observed over a 7- day period of time. 06/06/21 = NEW GOAL GOALS MET Per , Rod is able to doff all UB clothing items w/ mod I on daily basis. *MET 12/30/19 Able to manage personal reading materials, utilizing compensatory strategies/AE if/ as needed, w/ increased time while seated on stable surface . *MET 06/06/21 - Treatment 2 Descriptor Self-care Activities 1 Descriptor Object manipulation. Pegs. Exercises 2 Descriptor ROM Measurements. 1 Descriptor HEP/POC. Thelma, Rod's , was present throughout treatment session. - Assessment Assessment of Improvement Rod has made progress over the last certification period relative to active left upper extremity sh abduction and functional abilities; he is able to manage reading materials with active incorporation of the left hand and utilizing compensatory strategies as needed. He is able to don upper body clothing items 50 to 60% of the time with intermittent assistance for problem solving related to motor plan, orientation, laterality. Rod was encouraged to manage buttons w/ R hand on this date and he was able to button x 2 buttons on polo shirt w/ increased time with right hand . Based on feedback from Rod and his , they would like to work on belt management and tying of shoe laces. Rod continues to present with L sided neglect, impaired vision , impaired L UE motor planning , decreased orientation to midline, impaired L UE sensation, and decreased functional independence. Continued outpatient OT is recommended to maximize Gerd's functional independence with incorporation of fine motor/ motor planning and strengthening activities to support functional gains. PLAN : Functional activities Home Exercise Program Please refer to treatment section of note for specific details. - Plan Therapy Recommendations Continue with Current Program, Advance per Rehabilitation Protocol Comment 12 weeks Comment 1 x every 2 weeks versus 1 x per week Therapeutic Contents Active Range of Motion, Adaptive Equipment Education, Client Education,Cognitive Skills Development,Functional Activities,Home Exercise Program,Joint Protection, Manual Therapy,Education, Neurodevelopment Treatment, Neuromuscular Re-Education, Self-Care,Therapeutic Activities,Therapeutic Exercises,Modalities,Sensory Re-education Modalities As Needed,As Prescribed Additional Types of Modalities Heat/Ice/Cold Pack/E-stim Please Sign and Return: I have reviewed this Plan of Care and certify that the skilled therapy services above are required to meet the patient?s needs. Physician Signature Date Printed Name and Credentials Clinical Instructor Signature Printed Name and Credentials
--- NOTE | 2021-06-22 14:27 | OT.OP.TRT ---
Visit Care Team Role Provider Type Yesy Cortes MD Attending Provider Physician Primary Care Provider Specialty: Internal Medicine [address]: [address] [place] [address], [address] Email: [email or web address] Therapy Treatment Note OT Outpatient Treatment Note - Adult Start: 09/29/19 07:33 Freq: Status: Active Protocol: Document 06/22/21 14:21 AMS (Rec: 06/22/21 14:27 AMS [id number]) OT Outpatient Adult Treatment Note Session Time Visit Start Time 13:30 Visit Stop Time 14:15 Total Visit Minutes 45 Visit Information Visit Number 12/29 Plan of Care Dates 05/23/21-08/15/21 Insurance Information Medicare Setting Treatment Setting Outpatient Care Visit Type Note Type Treatment Note General Information General Information 70-yr-old male s/p 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 The pt was brought to [facility] ED where CT head revealed hemorrhage, then transferred via helicopter to [facility]. Pt underwent craniotomy on 04/16. He transferred to [facility] for rehab on 05/05 , where he remained until returning to [facility] 06/26 for surgical replacement of right side skull. He transferred from [facility] to [facility] for acute inpatient rehab from 06/30 - 07/18, returning home with Home Health PT/OT/ST until 09/12. - Subjective Identification Type Name Identification Reconciled With Medical Record Others Present Family Observations April, Rod's , accompanied him to OT treatment session. Patient/Caregiver Compliance with Home Excellent Exercise Program Comment w/ caregiver/family support - Objective Objective Measurements Object transfer R hand thumb/ 3rd digit. Hyperextension of DIP joints of 3rd, 4th and 5th digits of the L hand; hyperextension observed w/ object retrieval given digits are extended despite size of objects being manipulated. Please refer to below for progress towards meeting established OT goals. Functional abilities as of = min phys assist w/ donning UB/LB dressing ( however, is mod I w/ socks/ shoes); mod I w/ toileting hygiene, application of deodarant, and managing personal glasses. 01/06/20= Correctly differentiated between L vs R w/ laterality activity 5 out of 10 trials. 12/16/19= Impaired sensation of L UE; absent sensation of distal UE (volar/dorsal surfaces of the hand). Absent touch noted in the areas of light, pain, stereognosis. Report of some sense of touch noted w/ vibration elbow --> distal UE. Report of painful response to water to hand in morning. Short Term Goals 1. Patient will present with improved fine motor coordination of the affected upper extremity; this will be evidenced by Gerd's ability to place 8 small sized pegs in pegboard with the left hand, with therapist placing 1 peg at a time in the palm of the left hand. 06/06/21 = 50% met GOALS MET Actively participated in standardized digit/cocoa butter filter operator strength testing. Roll Plugger Machine Operator/Lateral Nichols Pinch. *MET 10/21/19 Opposed L thumb to second digit pad 4 out of 5 trials w/ increased effort/ concentration. *MET 11/17/19 0-60 degrees active left forearm supination. *MET = 0-75 degrees Will average 15.0+ pounds of force with L cocoa butter filter operator dynamometer II strength testing. *MET 12/09= avg 22.0# of force Opposed L thumb to each digit pad x 2 out of 2 cycles. *MET 12/24/19 0-30 degrees active left wrist extension. *MET 01/13/20. 0-40 w/ fingers flexed Actively utilizing the left hand with functional transfers . *MET 01/13/20 Actively participated in additional standardized assessments. *MET 01/13/20 Flipped over 10 various sized coins w/ S without use of edge of TT. *MET 06/16/20 Flipped five, 3 x 5 index cards, within 2 SD below the mean (within 11.88 seconds) ( Peter subtest). *MET 07/05/20; 10.9 sec Stacked 4 wood checkers w/ S. *MET 07/05/20 Placed 5+ small/medium/large pegs in pegboard w/ L hand. Transferred TT to pegboard. * MET 09/22/20 0-80 degrees active L sh abd. *MET 09/22/20 Place 8+ medium/large sized pegs in pegboard w/ L hand, w/ 1 peg placed at a time in the palm of L hand. *MET 10/25/20 Able to manage personal zippers of UB clothing items with increased time (increased difficulty when fatigued). * MET 12/09/20 0-90 degrees active L sh abduction. *MET 06/06/21 Manufacturing Technology Analyst Goals 1. Patient will be modified independent with execution of UE home exercise program utilizing provided written and visual instructions from therapist with support of family and caregivers. 06/06/21 = 50% met 2. Patient will be able to don upper body clothing items (e.g., donning of shirt/jacket ) with modified independence utilizing compensatory strategies on a daily basis based on spouse/patient verbal report, as observed over a 7- day period of time. 06/06/21= 50% met; completing 60% of the time 3. Patient will present with improved functional independence/motor coordination of the left upper extremity; this will be evidenced by patient and spouse's verbal report of patient's ability to manage personal cell phone utilizing compensatory strategies/AE if/ as needed over short periods of time (5 to 10 minutes in length) on daily basis with the left hand. 04/11/21 = 50% met 4. Patient will be able to manage personal belt with modified independence utilizing compensatory strategies on a daily basis based on spouse/patient verbal report, as observed over a 7- day period of time. 06/06/21 = NEW GOAL GOALS MET Per , Rod is able to doff all UB clothing items w/ mod I on daily basis. *MET 12/30/19 Able to manage personal reading materials, utilizing compensatory strategies/AE if/ as needed, w/ increased time while seated on stable surface . *MET 06/06/21 - Treatment 2 Descriptor Self-care Activities 1 Descriptor Object manipulation. Bimanual coordination. Exercises 2 Descriptor ROM Measurements. 1 Descriptor HEP/POC. Thelma, Rod's , was present throughout treatment session. Functional problem solving relative to management of personal belt. - Assessment Assessment of Improvement Min verbal cues to support functional problem solving with large bead lacing task and to complete bimanually. Min v.c. to support doffing of belt; mod to max verbal cues to support donning of belt. Initiated counting of loops x 5 and naming 2 ends of belt to support functional success. Recommendation to complete components of this skill seated versus in standing for energy conservation purposes. Recommend repeating. Gerd continues to present with L sided neglect, impaired vision , impaired L UE motor planning , decreased orientation to midline, impaired L UE sensation, and decreased functional independence. Continued outpatient OT is recommended to maximize Gerd's functional independence with incorporation of fine motor/ motor planning and strengthening activities to support functional gains. PLAN : Functional activities Home Exercise Program Please refer to treatment section of note for specific details. - Plan Therapy Recommendations Continue with Current Program, Advance per Rehabilitation Protocol Comment 12 weeks
--- NOTE | 2021-08-15 15:30 | OT.OPPN ---
Current Diagnoses Nontraumatic intracerebral hemorrhage, unspecified (08/15/21) Other lack of coordination (08/15/21) Weakness (08/15/21) OT Progress Note OT Outpatient Standardized Assessments Start: 09/29/19 07:33 Freq: Status: Active Protocol: Document 08/15/21 15:30 AMS (Rec: 08/16/21 13:44 AMS [id number]) 9-Hole Peg Hand Test Hand Left Date of Test 01/13/20 Therapist Paula Carvajal MSOTR/L Comments Unable Right Comments Did not perform assessment given patient unable to complete w/ L hand OT Outpatient Treatment Note - Adult Start: 09/29/19 07:33 Freq: Status: Active Protocol: Document 08/15/21 15:30 AMS (Rec: 08/16/21 13:44 AMS [id number]) OT Outpatient Adult Treatment Note Session Time Visit Start Time 12:30 Visit Stop Time 13:25 Total Visit Minutes 55 Visit Information Visit Number 11/28; with visit => starting to use KX modifier Plan of Care Dates 08/15/21-11/07/21 Insurance Information Medicare Setting Treatment Setting Outpatient Care Visit Type Note Type Progress Note General Information General Information 70-yr-old male s/p 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 The pt was brought to [facility] ED where CT head revealed hemorrhage, then transferred via helicopter to [facility]. Pt underwent craniotomy on 04/16. He transferred to [facility] for rehab on 05/05 , where he remained until returning to [facility] 06/26 for surgical replacement of right side skull. He transferred from [facility] to [facility] for acute inpatient rehab from 06/30 - 07/18, returning home with Home Health PT/OT/ST until 09/12. - Subjective Identification Type Name Identification Reconciled With Medical Record Others Present Family Observations April, Rod's , accompanied him to OT treatment session. Patient/Caregiver Compliance with Home Excellent Exercise Program Comment w/ caregiver/family support - Objective Objective Measurements Object transfer R hand thumb/ 3rd digit. Hyperextension of DIP joints of 3rd, 4th and 5th digits of the L hand; hyperextension observed w/ object retrieval given digits are extended despite size of objects being manipulated. Please refer to below for progress towards meeting established OT goals. Functional abilities as of = min phys assist w/ donning UB/LB dressing ( however, is mod I w/ socks/ shoes); mod I w/ toileting hygiene, application of deodarant, and managing personal glasses. 01/06/20= Correctly differentiated between L vs R w/ laterality activity 5 out of 10 trials. 12/16/19= Impaired sensation of L UE; absent sensation of distal UE (volar/dorsal surfaces of the hand). Absent touch noted in the areas of light, pain, stereognosis. Report of some sense of touch noted w/ vibration elbow --> distal UE. Report of painful response to water to hand in morning. Short Term Goals 1. Patient will present with improved fine motor coordination of the affected upper extremity; this will be evidenced by Gerd's ability to place 8 small sized pegs in pegboard with the left hand, with therapist placing 1 peg at a time in the palm of the left hand. 08/15/21 = 50% met; NOT a focus GOALS MET Actively participated in standardized digit/machine maintenance mechanic strength testing. [employer]/Lateral [employer] Pinch. *MET 10/21/19 Opposed L thumb to second digit pad 4 out of 5 trials w/ increased effort/ concentration. *MET 11/17/19 0-60 degrees active left forearm supination. *MET = 0-75 degrees Will average 15.0+ pounds of force with L machine maintenance mechanic dynamometer II strength testing. *MET 12/09= avg 22.0# of force Opposed L thumb to each digit pad x 2 out of 2 cycles. *MET 12/24/19 0-30 degrees active left wrist extension. *MET 01/13/20. 0-40 w/ fingers flexed Actively utilizing the left hand with functional transfers . *MET 01/13/20 Actively participated in additional standardized assessments. *MET 01/13/20 Flipped over 10 various sized coins w/ S without use of edge of TT. *MET 06/16/20 Flipped five, 3 x 5 index cards, within 2 SD below the mean (within 11.88 seconds) ( Peter subtest). *MET 07/05/20; 10.9 sec Stacked 4 wood checkers w/ S. *MET 07/05/20 Placed 5+ small/medium/large pegs in pegboard w/ L hand. Transferred TT to pegboard. * MET 09/22/20 0-80 degrees active L sh abd. *MET 09/22/20 Place 8+ medium/large sized pegs in pegboard w/ L hand, w/ 1 peg placed at a time in the palm of L hand. *MET 10/25/20 Able to manage personal zippers of UB clothing items with increased time (increased difficulty when fatigued). * MET 12/09/20 0-90 degrees active L sh abduction. *MET 06/06/21 Long-Term Goals 1. Patient will be modified independent with execution of UE home exercise program utilizing provided written and visual instructions from therapist with support of family and caregivers. 08/15/21 = 50% met 2. Patient will be able to don upper body clothing items (e.g., donning of shirt/jacket ) with modified independence utilizing compensatory strategies on a daily basis based on spouse/patient verbal report, as observed over a 7- day period of time. 08/15/21= 50% met; completing 60% of the time 3. Patient will be able to manage personal belt with modified independence utilizing compensatory strategies on a daily basis based on spouse/patient verbal report, as observed over a 7- day period of time. 08/15/21 = 25% met GOALS MET Per , Rod is able to doff all UB clothing items w/ mod I on daily basis. *MET 12/30/19 Able to manage personal reading materials, utilizing compensatory strategies/AE if/ as needed, w/ increased time while seated on stable surface . *MET 06/06/21 GOALS D/C Patient will present with improved functional independence/motor coordination of the left upper extremity; this will be evidenced by patient and spouse's verbal report of patient's ability to manage personal cell phone utilizing compensatory strategies/AE if/ as needed over short periods of time (5 to 10 minutes in length) on daily basis with the left hand. D/C 08/15/21 = NOT A FOCUS - Treatment 2 Descriptor Self-care Activities 1 Descriptor Object manipulation. Bimanual coordination. Exercises 1 Descriptor HEP/POC. Thelma, Rod's , was present throughout treatment session. Functional problem solving relative to management of button-up shirt. - Assessment Assessment of Improvement Gerd continues to require intermittent support with UB and LB dressing from his spouse; spouse assists when left arm has been placed through head hole of pull-over upper body cothing and/or pant leg becomes inside out. The couple has been trying various strategies as directed ; yet, vision, spatial awareness, laterality impairments, apraxia continues to impact Gerd's ability to complete this skill with functional independence on a daily basis. Yet, it is important to note that Gerd is successful with these self care skills on a more regular basis compared to time of initial evaluation. Instruction on button-up long sleeve clothing was completed on this date; able to manage buttons of plaid shirt without phys assistance. Min verbal cues overall, primarily provided on 3rd trial. This may have been d/t fatigue or Gerd trying to complete skill faster or d/t decreased executive function skills/ frustration. Instruction was provided to support more awareness; discussed self- management of pant legs, orientation to tag of pants prior to donning, use of long/ calf/athletic socks, holding of all clothing with right hand and reaching across with left arm. Gerd continues to present with L sided neglect, impaired vision, impaired L UE motor planning, decreased orientation to midline, impaired L UE sensation, and decreased functional independence. Continued outpatient OT is recommended to maximize Gerd's functional independence with incorporation of fine motor/ motor planning and strengthening activities to support functional gains. PLAN : Functional activities Home Exercise Program Please refer to treatment section of note for specific details. - Plan Therapy Recommendations Continue with Current Program, Advance per Rehabilitation Protocol Comment 12 weeks Comment 1 x a week versus 1 x every 3 weeks Therapeutic Contents Active Range of Motion, Adaptive Equipment Education, Client Education,Cognitive Skills Development,Functional Activities,Home Exercise Program,Joint Protection, Manual Therapy,Education, Neurodevelopment Treatment, Neuromuscular Re-Education, Self-Care,Therapeutic Activities,Therapeutic Exercises Please Sign and Return: I have reviewed this Plan of Care and certify that the skilled therapy services above are required to meet the patient?s needs. Physician Signature Date Printed Name and Credentials Clinical Instructor Signature Printed Name and Credentials
--- NOTE | 2021-08-31 11:47 | OT.OP.DC ---
Visit Care Team Role Provider Type Yesy Cortes MD Attending Provider Physician Primary Care Provider Address: [address] [place] [address], [id number] Email: [email or web address] Out[facility] OT Outpatient Adult Evaluation Start: 09/29/19 07:33 Freq: Status: Active Protocol: Document 09/18/19 15:30 AMS (Rec: 09/29/19 08:13 AMS [id number]) General Information Session Time Visit Start Time 12:30 Visit Stop Time 13:25 Total Visit Minutes 55 Visit Information Visit Number 11/[id number] Plan of Care Dates 09/18/19-12/11/2019 Insurance Information Medicare Setting Treatment Setting Outpatient Care Visit Type Note Type Initial Evaluation Referral Referring Physician Yesy Cortes MD Reason for Referral CVA Identification Identification Confirmed Yes: Photo ID Identification Confirmed By Medical Information Medical History Patient is a 69 year-old male referred to outpatient OT by PCP, Yesy Cortes MD, 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 Patient was transferred from [facility] to [facility] where craniotomy was performed 04/16/19. Patient completed 7 weeks of rehab at [facility] and then underwent secondary surgery on 06/26/19 to replace skull fragment. Patient was then at acute rehab facility 06/30/19-07/18/19 . He was discharged home with assist from and caregivers. 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 Therapy Pain Assessment Pain When Pain Assessed Pre-treat Pain Present Pain Present Pain Reported Location Left Foot Intensity 5 Scale Used Numeric (0 - 10) Left Upper Leg Intensity 7 Scale Used Numeric (0 - 10) Lower Back Intensity 7 Scale Used Numeric (0 - 10) Left Arm Intensity 4 Scale Used Numeric (0 - 10) Bilateral Shoulder Intensity 5 Scale Used Numeric (0 - 10) ADLs Overall Ability Comments Impaired; and caregiver assists patient w/ ADLS Dressing Skill Level Impaired Skill Level Impaired Skill Level Impaired Bathing Skill Level Impaired Toileting Skill Level Impaired Observations Observations Observations AROM of L thumb noted. Use of lateral nichols pinch. Unable to oppose left thumb to second digit pad. In-Hand Manipulation [id number] Translation Right Level of Ability WFL Left Level of Ability Unable [id number] Translation Right Level of Ability WFL Left Level of Ability Unable Shift Right Level of Ability WFL Left Level of Ability Unable Simple Rotation Right Level of Ability WFL Left Level of Ability Unable Complex Rotation Right Level of Ability WFL Left Level of Ability Unable Goals Treatment Treatment Education completed re: positioning of UE when at rest ; instructed in positioning in w/c and when in supported sitting. Education focus on positioning of UE away from protective pattern and to the left of the body w/ supported wrist extension as tolerated. Recommended active TT ROM w/ scapular retraction/ protraction in frontal plane given no c/o pain/discomfort w / this exercise. Short Term Goals Short Term Goals 1. Patient will be able to oppose left thumb to second digit pad 4 out of 5 trials with increased effort and concentration demonstrating increasing ability to actively incorporate the left upper extremity/hand in day-to-day life. 2. 0-30 degrees active left wrist extension. 3. 0-60 degrees active left forearm supination. 4. Patient will demonstrate increased ability to actively incorporate L UE in day-to-day life, as evidenced by ability to tolerate left <-> right weight shifting x 10 trials, with hands positioned in frontal plane. 5. Patient will actively participate in standardized digit/broker associate strength testing as tolerated. Jail Goals Final Assembler Boat Goals 1. Patient will be modified independent with execution of UE home exercise program utilizing provided written and visual instructions from therapist with support of family and caregivers. 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 PMH : Significant for arthritis; back pain; blood pressure; fibromyalgia; 2 brain surgeries (March 2019); left sided neglect; impaired vision . PLOF: Independent w/ ADLS and IADLS. Evaluation findings: Reported pain/discomfort of L LE, lower back bilateral shoulders, and L UE; left sided neglect; impaired functional independence; patient focus on gait; poor tolerance for distal L UE splint; impaired sensation of L UE; L UE weakness; decreased L UE AROM; decreased object manipulation abilities of the L hand; spasticity into flexor pattern of UE; protective posturing of UE; impaired posture; impaired balance; and poor tolerance for UE weight bearing. Outpatient OT is recommended to address these areas in order to maximize Gerd's success with active participation in meaningful activities with active incorporation of the affected UE. Plan Comment 12 weeks Comment 1-2 times per week Therapeutic Contents Active Range of Motion, Adaptive Equipment Education, Client Education,Cognitive Skills Development,Functional Activities,Home Exercise Program,Joint Protection, Manual Therapy,Education, Neurodevelopment Treatment, Neuromuscular Re-Education, Self-Care,Stretching/ Flexibility Activities, Therapeutic Activities, Therapeutic Exercises, Modalities,Sensory Re- education Modalities As Needed,As Prescribed Types of Modalities Contrast Bath,E-Stim, Functional Stimulation (FES),T .E.N. Stimulation,TENS Placement/Application, Ultrasound Patient Instruction Home Exercise Program,Plan of Care,Questions/Concerns Sensory Assessment Sensory Profile2 Functional Wrist/Hand Scan Hand Side OT Outpatient Muscle Testing Start: 09/29/19 07:33 Freq: Status: Active Protocol: Document 08/31/21 11:40 AMS (Rec: 08/31/21 11:47 [facility] [id number]) Respiratory Scientist/Hand Strength Respiratory Scientist/Hand Strength Left Respiratory Scientist Dynamometer II 32.0 Lateral Pinch Strengh (lbs) 7.0 Comments New avg for broker associate obtained 05/0501/13/20= 24.0# of force 10/21/19= 8.0# of force L Respiratory Scientist; 7.0# of force L Lateral Pinch Right Respiratory Scientist Dynamometer II 44.0 Lateral Pinch Strengh (lbs) 10.0 Comments Avg for Respiratory Scientist and Lateral Pinch were obtained 10/21/19. OT Outpatient Range of Motion Start: 09/29/19 07:33 Freq: Status: Active Protocol: Document 08/31/21 11:40 AMS (Rec: 08/31/21 11:47 AMS [id number]) ROM - Shoulder Shoulder Left Forearm ROM Testing Position Sitting Shoulder Flex AROM (degrees) 0-100 Query Text: Shoulder Abd AROM (degrees) 0-90 Shoulder IR AROM (degrees) WFL IR Shoulder ER AROM (degrees) 0-50 Comments New ROM taken 08/31/21 0-80 L sh abd. 09/22/20 12/16/19= sh flex 0-80; 0-70 sh abd; WFL IR; 0-40 ER 09/18/20= ER 0-30 Right Active Shoulder ROM WFL Yes Forearm ROM Testing Position Sitting ROM - Finger Goniometric Finger Measured in Degrees Left Second Finger ROM WFL No ROM Limitations Comments 08/31/21; -25 ext at L 2nd MCPJ; -25 ext at L 3rd MCPJ; - 45 ext at L 4th MCPJ; -70 ext at L 5th MCPJ; +35 degrees hyperext at L 4th PIPJ; +55 hyperext at L 5th DIPJ -35 ext at L 2nd MCPJ -40 ext at L 3rd MCPJ -30 ext at L 4th MCPJ -45 ext at L 5th MCPJ OT Outpatient Treatment Note - Adult Start: 09/29/19 07:33 Freq: Status: Active Protocol: Document 08/31/21 11:40 AMS (Rec: 08/31/21 11:47 AMS [id number]) OT Outpatient Adult Treatment Note Session Time Visit Start Time 10:30 Visit Stop Time 11:25 Total Visit Minutes 55 Visit Information Visit Number 12/29; with visit => starting to use KX modifier Plan of Care Dates 08/15/21-11/07/21 Insurance Information Medicare Setting Treatment Setting Outpatient Care Visit Type Note Type Treatment Note General Information General Information 70-yr-old male s/p 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 The pt was brought to [facility] ED where CT head revealed hemorrhage, then transferred via helicopter to [facility]. Pt underwent craniotomy on 04/16. He transferred to [facility] for rehab on 05/05 , where he remained until returning to [facility] 06/26 for surgical replacement of right side skull. He transferred from [facility] to [facility] for acute inpatient rehab from 06/30 - 07/18, returning home with Home Health PT/OT/ST until 09/12. - Subjective Identification Type Name Identification Reconciled With Medical Record Others Present Family Observations April, Rod's , accompanied him to OT treatment session. Patient/Caregiver Compliance with Home Excellent Exercise Program Comment w/ caregiver/family support - Objective Objective Measurements Object transfer R hand thumb/ 3rd digit. Hyperextension of DIP joints of 3rd, 4th and 5th digits of the L hand; hyperextension observed w/ object retrieval given digits are extended despite size of objects being manipulated. Please refer to below for progress towards meeting established OT goals. Functional abilities as of = min phys assist w/ donning UB/LB dressing ( however, is mod I w/ socks/ shoes); mod I w/ toileting hygiene, application of deodarant, and managing personal glasses. 01/06/20= Correctly differentiated between L vs R w/ laterality activity 5 out of 10 trials. 12/16/19= Impaired sensation of L UE; absent sensation of distal UE (volar/dorsal surfaces of the hand). Absent touch noted in the areas of light, pain, stereognosis. Report of some sense of touch noted w/ vibration elbow --> distal UE. Report of painful response to water to hand in morning. Short Term Goals GOALS MET Actively participated in standardized digit/broker associate strength testing. Respiratory Scientist/Lateral Nichols Pinch. *MET 10/21/19 Opposed L thumb to second digit pad 4 out of 5 trials w/ increased effort/ concentration. *MET 11/17/19 0-60 degrees active left forearm supination. *MET = 0-75 degrees Will average 15.0+ pounds of force with L broker associate dynamometer II strength testing. *MET 12/09= avg 22.0# of force Opposed L thumb to each digit pad x 2 out of 2 cycles. *MET 12/24/19 0-30 degrees active left wrist extension. *MET 01/13/20. 0-40 w/ fingers flexed Actively utilizing the left hand with functional transfers . *MET 01/13/20 Actively participated in additional standardized assessments. *MET 01/13/20 Flipped over 10 various sized coins w/ S without use of edge of TT. *MET 06/16/20 Flipped five, 3 x 5 index cards, within 2 SD below the mean (within 11.88 seconds) ( Peter subtest). *MET 07/05/20; 10.9 sec Stacked 4 wood checkers w/ S. *MET 07/05/20 Placed 5+ small/medium/large pegs in pegboard w/ L hand. Transferred TT to pegboard. * MET 09/22/20 0-80 degrees active L sh abd. *MET 09/22/20 Place 8+ medium/large sized pegs in pegboard w/ L hand, w/ 1 peg placed at a time in the palm of L hand. *MET 10/25/20 Able to manage personal zippers of UB clothing items with increased time (increased difficulty when fatigued). * MET 12/09/20 0-90 degrees active L sh abduction. *MET 06/06/21 Patient will present with improved fine motor coordination of the affected upper extremity; this will be evidenced by Gerd's ability to place 8 small sized pegs in pegboard with the left hand, with therapist placing 1 peg at a time in the palm of the left hand. 08/31/21 = x 6 small pegs Final Assembler Boat Goals Patient will be modified independent with execution of UE home exercise program utilizing provided written and visual instructions from therapist with support of family and caregivers. *MET Per , Gerd is able to doff all UB clothing items w/ mod I on daily basis. *MET 12/30/19 Able to manage personal reading materials, utilizing compensatory strategies/AE if/ as needed, w/ increased time while seated on stable surface . *MET 06/06/21 D/C Patient will be able to don upper body clothing items (e.g ., donning of shirt/jacket) with modified independence utilizing compensatory strategies on a daily basis based on spouse/patient verbal report, as observed over a 7- day period of time. 08/31/21 = 50 to 75% of time Patient will be able to manage personal belt with modified independence utilizing compensatory strategies on a daily basis based on spouse/ patient verbal report, as observed over a 7-day period of time. Wearing elastic d/t easier ability to manage w/ toileting, et cetera Patient will present with improved functional independence/motor coordination of the left upper extremity; this will be evidenced by patient and spouse's verbal report of patient's ability to manage personal cell phone utilizing compensatory strategies/AE if/ as needed over short periods of time (5 to 10 minutes in length) on daily basis with the left hand. D/C 08/15/21 = NOT A FOCUS - Treatment 2 Descriptor Self-care Activities 1 Descriptor Object manipulation. Bimanual coordination. Exercises 2 Descriptor ROM Measurements. 1 Descriptor HEP/POC. Thelma, Rod's , was present throughout treatment session. Self-care, attention to left hand UE, range of motion, object maniulation, discussed. - Assessment Assessment of Improvement Based on feedback from patient and spouse, patient to d/c from OT. Couple is mod independent with execution of home exercise program ( dressing skills, active incorporation of the left hand with completion of meaningful tasks). - Plan Therapy Recommendations Discharge from Occupational Therapy
== END 2021-12-20 09:55 ==
LOC: OT 10:30
PROVIDERS: PCP Internal Medicine; Visit Provider Internal Medicine
DX: I61.9 Nontraumatic intracerebral hemorrhage, unspecified (principal); R27.8 Other lack of coordination; R53.1 Weakness
CPT/HCPCS: 97032; 97110; 97112; 97140; 97166; 97530; 97535

== ENCOUNTER 2021-11-07 12:00 | Outpatient (RCR) | payer MEDICARE, OTHER, SELFPAY ==
--- NOTE | 2019-09-17 12:45 | PT.OIE ---
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) Visit Care Team Role Provider Type Yesy Cortes MD Attending Provider Physician Primary Care Provider Specialty: Internal Medicine Address: [address] [place] [address] Email: [email or web address] Initial Evaluation PT-OP-A Visit Information Start: 09/17/19 18:00 Freq: Status: Active Protocol: Document 09/17/19 12:00 DCW (Rec: 09/18/19 10:29 DCW [id number]) Out-Patient Physical Therapy Visit Information Visit Information Visit Type Initial Evaluation Visit Start Time 12:00 Visit Stop Time 13:00 Total Visit Minutes 60 Visit Number 1 Number of SPA HOST Visits 0 Evaluation Information Evaluation Date 09/17/19 PT-OP-B Current Condition Start: 09/17/19 18:00 Freq: Status: Active Protocol: Document 09/17/19 12:00 DCW (Rec: 09/18/19 10:29 DCW [id number]) Current Condition History of Current Condition Onset Date 04/14/19 Current Complaints Hemiparesis secondary to CVA History of Current Condition Pt is a 69 year old male presenting to skilled outpatient physical therapy with left-side neglect, hemiparesis, loss of independence, and difficulty walking following an intraparenchymal hemorrhage on 04/14/19. Pt was transferred from [facility] to [facility], where a craniotomy was performed on 04/16/19. Pt completed 7 weeks of rehab/ recovery at [facility], and then underwent a second surgery on 06/26/19 to replace the skull fragment. Pt was then at an acute rehab facility 06/30-07/18/19, and since then has been receiving home health physical therapy. Pt presents today with limited left-sided function, left visual and physical neglect, difficulty with transfers, decreased activity tolerance, decreased gait, and many other secondary effects following his CVA. Pt has been working on ambulation with a vale walker with home health, and his states he has walked around 100' a few times, but always with a therapist, as she does not feel comfortable walking with him yet. Pt exclusively gets around at time of evaluation in a manual wheelchair. Pt's transfers have been going fairly well, with his caregivers performing CGA, however pt will occasionally need assistance with placement of his left UE and LE due to neglect. Pt's biggest complaint at the moment is leg pain, his reports they have tried PT, Massage, CBD il, Tylenol, Oxycodine, and Gabapentin, all with minimal benefit. Prior to CVA, pt was fully independent in all activities. Pt and have garegivers 8 hrs a day for assistance. Prior Treatments and Tests Craniotomy 04/16/19, Acute rehab, Skull fragment replacement 06/26/19, home health PT Prior Functional Status Baseline Function- ADL's Independent Baseline Function- Mobility Independent PT-OP-C Subjective Start: 09/17/19 18:00 Freq: Status: Active Protocol: Document 09/17/19 12:00 DCW (Rec: 09/18/19 10:29 [facility] [id number]) OP-PT Subjective Patient Comments Patient Comments Your job is to get me up and walking again. I want to be out of this chair. Patient Reported Progress Improving OP-PT Pain Assessment Pain Assessment Grid Paper Pain Assessment Grid Completed Yes: Multiple locations, see paper chart PT-OP-G Mobility & Gait Start: 09/17/19 18:00 Freq: Status: Active Protocol: Document 09/17/19 12:00 DCW (Rec: 09/18/19 10:29 DC [id number]) OP Mobility Evaluation Bed Mobility Rolling Rolling torso largely SBA, however requires Min A x1 for positioning of L UE secondary to neglect Supine to and from Sit SBA Transfers Sit to Stand SBA /c gait belt, occasional assistance required for positioning of left foot Bed to Chair Transfers Stand pivot transfer CGA /c gait belt when transfersing in both directions OP Gait Assessment Gait Gait Assistance Required: Contact Guard Assist Distance (Feet) 120 Able to Maintain Weight Bearing Status Yes During Gait Assistive Devices Assistive Device Gait Belt,Vale Walker Orthotic/Prosthetic Devices or Brace: No Gait Deviations General Gait Pattern Antalgic,Ataxic,Decreased Stride Length,Decreased Feet Clearance,Flexed Trunk,Lateral Trunk Lean,Step-to Gait Factors Limiting Gait Function Factors Limiting Gait Function Abnormal Tonal Influences, Decreased Activity Tolerance, Decreased Sensation,Decreased Strength,Incoordination,Poor Balance,Poor Safety Awareness PT-OP-H Neuro Start: 09/17/19 18:00 Freq: Status: Active Protocol: Document 09/17/19 12:00 DCW (Rec: 09/18/19 17:29 DCW [id number]) Sensation Evaluation Gross Sensation Gross Sensation Left UE Impaired,Left LE Impaired Sensation Description Paresthesia,Numbness,Burning, Heaviness,Pain Location Details Left Leg Light Touch Absent Sharp/Dull Absent Deep Pressure Impaired Proprioception (Position) Absent Kinesthesia (Movement) Impaired Deep Tendon Reflex & Clonus Assessment Deep Tendon Reflex Left Achilles Deep Tendon Reflex 3+ Normal But Brisk Left Patellar Deep Tendon Reflex 3+ Normal But Brisk Muscle Tone Tone Assessment Left Lower Extremity Flexor Tone Description Severe Hypotonicity PT-OP-M Strength Start: 09/17/19 18:00 Freq: Status: Active Protocol: Document 09/17/19 12:00 DCW (Rec: 09/18/19 17:29 DCW [id number]) Hip Strength Hip Manual Muscle Testing Right Flexion (L2) 4 Good Extension (S1) 4 Good Abduction 5 Normal Adduction 5 Normal External Rotation 5 Normal Internal Rotation 5 Normal Left Flexion (L2) 3 Fair Extension (S1) 2- Poor- Abduction 2+ Poor+ Adduction 3+ Fair+ External Rotation 3- Fair- Internal Rotation 2- Poor- Reason Not Measured Muscle Tone,Pain Knee Strength Knee Manual Muscle Testing Right Flexion (S2) 5 Normal Extension (L3) 5 Normal Left Flexion (S2) 3- Fair- Extension (L3) 3+ Fair+ Reason Not Measured Muscle Tone,Pain Ankle/Foot Strength Ankle and Foot Manual Muscle Testing Right Dorsiflexion (L4) 5 Normal Plantarflexion (S1) 5 Normal Left Dorsiflexion (L4) 4- Good- Plantarflexion (S1) 3+ Fair+ PT-OP-T Assessment and Plan Start: 09/17/19 18:00 Freq: Status: Active Protocol: Document 09/17/19 12:00 DCW (Rec: 09/18/19 17:29 DCW [id number]) Physical Therapy Assessment Rehab Potential Rehabilitation Potential Fair Evaluation Complexity Number of Personal Factors/Comorbidities 3 or More Number of Body Systems Impaired 4 or More Clinical Presentation at Evaluation Unstable Impairments Impairments Activity Tolerance,Balance, Coordination,Functional Activities,Functional Mobility ,Gait,Pain,ROM,Sensation, Strength,Tone,Transfers Goals Four Impairment Pt demonstrates strength impairment throughout left LE Irrigation Service Technician Goal (LTG) Pt to display MMT >3+/5 through L LE LTG Duration 11/18/19 Three Impairment Pt SBA for transfers and bed mobility d/t Left Neglect Irrigation Service Technician Goal (LTG) Pt to demonstrate independent transfers and bed mobility with an ability to address left LE and UE 80% of the time Two Impairment Pt ambulates 120' SBA with hemiwalker Short Term Goal (STG) Pt to ambulate 200' Independently with hemiwalker to improve independence at home and reduce reliance on his wheelchair STG Duration 10/18/19 Detention Goal (LTG) Pt to ambulate 300' SBA /c SPC LTG Duration 11/18/19 One Impairment Pt does not have an appropriate home exercise program Short Term Goal (STG) Pt to be independent and compliant with an appropriate HEP STG Duration 10/18/19 Assessment Summary Assessment Patient presents with signs and symptoms consistent with his diagnosed CVA. Pt displays limited gait, decreased left- sided strength, decreased independence with transfers and bed mobility, absent sensation and proprioception, left neglect (both physical and visual), and pain throughout the affected side. Skilled therapy should be beneficial to address ongoing deficits s/p CVA, decreasing pt's burden of care, transitioning from w/c to a less restrictive assistive device, improving strength, limiting effects of left-sided pain and neglect, and improving coordination. Pt will benefit from a combination of both land- and water-based therapy. Pt is very motivated to address ongoing issues and work hard to return to as close to his prior level of function as possible. Physical Therapy Plan Frequency and Duration Frequency of Treatment 2x/Week Duration of Treatment 12 weeks Plan of Care Start Date 09/17/19 Plan of Care End Date 12/10/19 Therapeutic Interventions Therapeutic Interventions Aquatic Therapy,Balance Training,Coordination Training ,Gait Training,Home Exercise Program,Manual Therapy, Neuromuscular Re-education, Patient/Caregiver Education, Self-Care/Home Management, Therapeutic Activities, Therapeutic Exercises Modalities Cold Pack/Ice Massage,Electric Stimulation,Hot Packs, Ultrasound Next Visit Focus/Plan Next Note Type Treatment Note Next Visit Plan Strengthening, gait training, balance training, NMR
--- NOTE | 2019-09-19 12:54 | PT.OTN ---
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) Physical Therapy Treatment Note PT-OP-A Visit Information Start: 09/17/19 18:00 Freq: Status: Active Protocol: Document 09/19/19 12:00 DCW (Rec: 09/19/19 12:54 DCW [id number]) Out-Patient Physical Therapy Visit Information Visit Information Visit Type Treatment Note Visit Start Time 12:00 Visit Stop Time 12:45 Total Visit Minutes 45 Visit Number 2 Number of ACID RETORT OPERATOR Visits 0 Evaluation Information Evaluation Date 09/17/19 PT-OP-B Current Condition Start: 09/17/19 18:00 Freq: Status: Active Protocol: Document 09/17/19 12:00 DCW (Rec: 09/18/19 10:29 DCW [id number]) Current Condition History of Current Condition Onset Date 04/14/19 Current Complaints Hemiparesis secondary to CVA History of Current Condition Pt is a 69 year old male presenting to skilled outpatient physical therapy with left-side neglect, hemiparesis, loss of independence, and difficulty walking following an intraparenchymal hemorrhage on 04/14/19. Pt was transferred from [facility] to [facility], where a craniotomy was performed on 04/16/19. Pt completed 7 weeks of rehab/ recovery at [facility], and then underwent a second surgery on 06/26/19 to replace the skull fragment. Pt was then at an acute rehab facility 06/30-07/18/19, and since then has been receiving home health physical therapy. Pt presents today with limited left-sided function, left visual and physical neglect, difficulty with transfers, decreased activity tolerance, decreased gait, and many other secondary effects following his CVA. Pt has been working on ambulation with a trent walker with home health, and his states he has walked around 100' a few times, but always with a therapist, as she does not feel comfortable walking with him yet. Pt exclusively gets around at time of evaluation in a manual wheelchair. Pt's transfers have been going fairly well, with his caregivers performing CGA, however pt will occasionally need assistance with placement of his left UE and LE due to neglect. Pt's biggest complaint at the moment is leg pain, his reports they have tried PT, Massage, CBD il, Tylenol, Oxycodine, and Gabapentin, all with minimal benefit. Prior to CVA, pt was fully independent in all activities. Pt and have garegivers 8 hrs a day for assistance. Prior Treatments and Tests Craniotomy 04/16/19, Acute rehab, Skull fragment replacement 06/26/19, home health PT Prior Functional Status Baseline Function- ADL's Independent Baseline Function- Mobility Independent PT-OP-C Subjective Start: 09/17/19 18:00 Freq: Status: Active Protocol: Document 09/19/19 12:00 DCW (Rec: 09/19/19 12:54 DCW [id number]) OP-PT Subjective Patient Comments Patient Comments I'm ready to get moving! PT-OP-G Mobility & Gait Start: 09/17/19 18:00 Freq: Status: Active Protocol: Document 09/17/19 12:00 DCW (Rec: 09/18/19 10:29 DCW [id number]) OP Mobility Evaluation Bed Mobility Rolling Rolling torso largely SBA, however requires Min A x1 for positioning of L UE secondary to neglect Supine to and from Sit SBA Transfers Sit to Stand SBA /c gait belt, occasional assistance required for positioning of left foot Bed to Chair Transfers Stand pivot transfer CGA /c gait belt when transfersing in both directions OP Gait Assessment Gait Gait Assistance Required: Contact Guard Assist Distance (Feet) 120 Able to Maintain Weight Bearing Status Yes During Gait Assistive Devices Assistive Device Gait Belt,Trent Walker Orthotic/Prosthetic Devices or Brace: No Gait Deviations General Gait Pattern Antalgic,Ataxic,Decreased Stride Length,Decreased Feet Clearance,Flexed Trunk,Lateral Trunk Lean,Step-to Gait Factors Limiting Gait Function Factors Limiting Gait Function Abnormal Tonal Influences, Decreased Activity Tolerance, Decreased Sensation,Decreased Strength,Incoordination,Poor Balance,Poor Safety Awareness PT-OP-H Neuro Start: 09/17/19 18:00 Freq: Status: Active Protocol: Document 09/17/19 12:00 DCW (Rec: 09/18/19 17:29 DCW [id number]) Sensation Evaluation Gross Sensation Gross Sensation Left UE Impaired,Left LE Impaired Sensation Description Paresthesia,Numbness,Burning, Heaviness,Pain Location Details Left Leg Light Touch Absent Sharp/Dull Absent Deep Pressure Impaired Proprioception (Position) Absent Kinesthesia (Movement) Impaired Deep Tendon Reflex & Clonus Assessment Deep Tendon Reflex Left Achilles Deep Tendon Reflex 3+ Normal But Brisk Left Patellar Deep Tendon Reflex 3+ Normal But Brisk Muscle Tone Tone Assessment Left Lower Extremity Flexor Tone Description Severe Hypotonicity PT-OP-M Strength Start: 09/17/19 18:00 Freq: Status: Active Protocol: Document 09/17/19 12:00 DCW (Rec: 09/18/19 17:29 DCW [id number]) Hip Strength Hip Manual Muscle Testing Right Flexion (L2) 4 Good Extension (S1) 4 Good Abduction 5 Normal Adduction 5 Normal External Rotation 5 Normal Internal Rotation 5 Normal Left Flexion (L2) 3 Fair Extension (S1) 2- Poor- Abduction 2+ Poor+ Adduction 3+ Fair+ External Rotation 3- Fair- Internal Rotation 2- Poor- Reason Not Measured Muscle Tone,Pain Knee Strength Knee Manual Muscle Testing Right Flexion (S2) 5 Normal Extension (L3) 5 Normal Left Flexion (S2) 3- Fair- Extension (L3) 3+ Fair+ Reason Not Measured Muscle Tone,Pain Ankle/Foot Strength Ankle and Foot Manual Muscle Testing Right Dorsiflexion (L4) 5 Normal Plantarflexion (S1) 5 Normal Left Dorsiflexion (L4) 4- Good- Plantarflexion (S1) 3+ Fair+ PT-OP-Q Treatments Start: 09/17/19 18:00 Freq: Status: Active Protocol: Document 09/19/19 12:00 DCW (Rec: 09/19/19 12:54 DCW [id number]) Cardio Equipment Recumbent Elliptical ([employer]) Duration (Minutes) 5 Resistance 2 Seat Position 12 Other L UE strapped to handle Gym Equipment Shuttle Recovery Unilateral Heel Raises Details Left Resistance 12# Reps/Time Stopped d/t calf pain Unilateral Squats Details Left Resistance 37# Shuttle Recovery Platform Stable Bilateral Squats Resistance 100# Shuttle Recovery Platform Stable Therapeutic Exercises Other Exercises Side-stepping Other Exercise Name Side-stepping at [facility] Therapeutic Activity Therapeutic Activity 1 Name Stand-pivot transfers to L side Comments Verbal cues for checking to make sure chair was there, position of L UE and L LE, transfer techniques Gait Training Gait Activity Trent Walker amb Description Min A x1 amb with Trent-walker Device Used R Trent-walker Level of Assistance CGA->Min Ax1 Distance/Duration total 230', 3 rest breaks PT-OP-T Assessment and Plan Start: 09/17/19 18:00 Freq: Status: Active Protocol: Document 09/19/19 12:00 DCW (Rec: 09/19/19 12:54 DCW [id number]) Physical Therapy Assessment Impairments Impairments Activity Tolerance,Balance, Coordination,Functional Activities,Functional Mobility ,Gait,Pain,ROM,Sensation, Strength,Tone,Transfers Goals Four Impairment Pt demonstrates strength impairment throughout left LE Longterm Goal (LTG) Pt to display MMT >3+/5 through L LE LTG Duration 11/18/19 Three Impairment Pt SBA for transfers and bed mobility d/t Left Neglect Longterm Goal (LTG) Pt to demonstrate independent transfers and bed mobility with an ability to address left LE and UE 80% of the time Two Impairment Pt ambulates 120' SBA with hemiwalker Short Term Goal (STG) Pt to ambulate 200' Independently with hemiwalker to improve independence at home and reduce reliance on his wheelchair STG Duration 10/18/19 Health Administrator Goal (LTG) Pt to ambulate 300' SBA /c SPC LTG Duration 11/18/19 One Impairment Pt does not have an appropriate home exercise program Short Term Goal (STG) Pt to be independent and compliant with an appropriate HEP STG Duration 10/18/19 Assessment Summary Assessment Pt worked very hard today, despite being offered longer breaks when fatigued, he only took short, 30-second breaks between exercises, very motivated to fit as much activity as he could into his treatment time. Pt demonstrated significantly more difficulty with transfers to his left side. Physical Therapy Plan Frequency and Duration Frequency of Treatment 2x/Week Duration of Treatment 12 weeks Plan of Care Start Date 09/17/19 Plan of Care End Date 12/10/19 Therapeutic Interventions Therapeutic Interventions Aquatic Therapy,Balance Training,Coordination Training ,Gait Training,Home Exercise Program,Manual Therapy, Neuromuscular Re-education, Patient/Caregiver Education, Self-Care/Home Management, Therapeutic Activities, Therapeutic Exercises Modalities Cold Pack/Ice Massage,Electric Stimulation,Hot Packs, Ultrasound Next Visit Focus/Plan Next Note Type Treatment Note Next Visit Plan Strengthening, gait training, balance training, NMR
--- NOTE | 2019-09-24 14:34 | PT.OTN ---
Current Diagnoses Nontraumatic intracerebral hemorrhage, unspecified (09/24/19) Hemiplegia and hemiparesis following cerebral infarction affecting left non-dominant side (09/24/19) Pain in left leg (09/24/19) Pain in left lower leg (09/24/19) Other abnormalities of gait and mobility (09/24/19) Abnormal posture (09/24/19) Neurologic neglect syndrome (09/24/19) Physical Therapy Treatment Note PT-OP-A Visit Information Start: 09/17/19 18:00 Freq: Status: Active Protocol: Document 09/24/19 13:45 DCW (Rec: 09/24/19 14:34 DCW [id number]) Out-Patient Physical Therapy Visit Information Visit Information Visit Type Treatment Note Visit Start Time 13:45 Visit Stop Time 14:30 Total Visit Minutes 45 Visit Number 3 Number of DIRECTOR STATISTICAL PROGRAMMING Visits 0 Evaluation Information Evaluation Date 09/17/19 PT-OP-B Current Condition Start: 09/17/19 18:00 Freq: Status: Active Protocol: Document 09/17/19 12:00 DCW (Rec: 09/18/19 10:29 DCW [id number]) Current Condition History of Current Condition Onset Date 04/14/19 Current Complaints Hemiparesis secondary to CVA History of Current Condition Pt is a 69 year old male presenting to skilled outpatient physical therapy with left-side neglect, hemiparesis, loss of independence, and difficulty walking following an intraparenchymal hemorrhage on 04/14/19. Pt was transferred from [facility] to [facility], where a craniotomy was performed on 04/16/19. Pt completed 7 weeks of rehab/ recovery at [facility], and then underwent a second surgery on 06/26/19 to replace the skull fragment. Pt was then at an acute rehab facility 06/30-07/18/19, and since then has been receiving home health physical therapy. Pt presents today with limited left-sided function, left visual and physical neglect, difficulty with transfers, decreased activity tolerance, decreased gait, and many other secondary effects following his CVA. Pt has been working on ambulation with a trent walker with home health, and his states he has walked around 100' a few times, but always with a therapist, as she does not feel comfortable walking with him yet. Pt exclusively gets around at time of evaluation in a manual wheelchair. Pt's transfers have been going fairly well, with his caregivers performing CGA, however pt will occasionally need assistance with placement of his left UE and LE due to neglect. Pt's biggest complaint at the moment is leg pain, his reports they have tried PT, Massage, CBD il, Tylenol, Oxycodine, and Gabapentin, all with minimal benefit. Prior to CVA, pt was fully independent in all activities. Pt and have garegivers 8 hrs a day for assistance. Prior Treatments and Tests Craniotomy 04/16/19, Acute rehab, Skull fragment replacement 06/26/19, home health PT Prior Functional Status Baseline Function- ADL's Independent Baseline Function- Mobility Independent PT-OP-C Subjective Start: 09/17/19 18:00 Freq: Status: Active Protocol: Document 09/24/19 13:45 DCW (Rec: 09/24/19 14:34 DCW [id number]) OP-PT Subjective Patient Comments Patient Comments Pt reports he was fairly sore for a few days following his last appointment. PT-OP-G Mobility & Gait Start: 09/17/19 18:00 Freq: Status: Active Protocol: Document 09/17/19 12:00 DCW (Rec: 09/18/19 10:29 DCW [id number]) OP Mobility Evaluation Bed Mobility Rolling Rolling torso largely SBA, however requires Min A x1 for positioning of L UE secondary to neglect Supine to and from Sit SBA Transfers Sit to Stand SBA /c gait belt, occasional assistance required for positioning of left foot Bed to Chair Transfers Stand pivot transfer CGA /c gait belt when transfersing in both directions OP Gait Assessment Gait Gait Assistance Required: Contact Guard Assist Distance (Feet) 120 Able to Maintain Weight Bearing Status Yes During Gait Assistive Devices Assistive Device Gait Belt,Trent Walker Orthotic/Prosthetic Devices or Brace: No Gait Deviations General Gait Pattern Antalgic,Ataxic,Decreased Stride Length,Decreased Feet Clearance,Flexed Trunk,Lateral Trunk Lean,Step-to Gait Factors Limiting Gait Function Factors Limiting Gait Function Abnormal Tonal Influences, Decreased Activity Tolerance, Decreased Sensation,Decreased Strength,Incoordination,Poor Balance,Poor Safety Awareness PT-OP-H Neuro Start: 09/17/19 18:00 Freq: Status: Active Protocol: Document 09/17/19 12:00 DCW (Rec: 09/18/19 17:29 DCW [id number]) Sensation Evaluation Gross Sensation Gross Sensation Left UE Impaired,Left LE Impaired Sensation Description Paresthesia,Numbness,Burning, Heaviness,Pain Location Details Left Leg Light Touch Absent Sharp/Dull Absent Deep Pressure Impaired Proprioception (Position) Absent Kinesthesia (Movement) Impaired Deep Tendon Reflex & Clonus Assessment Deep Tendon Reflex Left Achilles Deep Tendon Reflex 3+ Normal But Brisk Left Patellar Deep Tendon Reflex 3+ Normal But Brisk Muscle Tone Tone Assessment Left Lower Extremity Flexor Tone Description Severe Hypotonicity PT-OP-M Strength Start: 09/17/19 18:00 Freq: Status: Active Protocol: Document 09/17/19 12:00 DCW (Rec: 09/18/19 17:29 DCW [id number]) Hip Strength Hip Manual Muscle Testing Right Flexion (L2) 4 Good Extension (S1) 4 Good Abduction 5 Normal Adduction 5 Normal External Rotation 5 Normal Internal Rotation 5 Normal Left Flexion (L2) 3 Fair Extension (S1) 2- Poor- Abduction 2+ Poor+ Adduction 3+ Fair+ External Rotation 3- Fair- Internal Rotation 2- Poor- Reason Not Measured Muscle Tone,Pain Knee Strength Knee Manual Muscle Testing Right Flexion (S2) 5 Normal Extension (L3) 5 Normal Left Flexion (S2) 3- Fair- Extension (L3) 3+ Fair+ Reason Not Measured Muscle Tone,Pain Ankle/Foot Strength Ankle and Foot Manual Muscle Testing Right Dorsiflexion (L4) 5 Normal Plantarflexion (S1) 5 Normal Left Dorsiflexion (L4) 4- Good- Plantarflexion (S1) 3+ Fair+ PT-OP-Q Treatments Start: 09/17/19 18:00 Freq: Status: Active Protocol: Document 09/24/19 13:45 DCW (Rec: 09/24/19 14:34 DCW [id number]) Cardio Equipment Recumbent Elliptical ([employer]) Duration (Minutes) 5 Resistance 2 Seat Position 12 Other L UE strapped to handle Therapeutic Exercises Sitting Exercises Adduction Sitting Exercise Name Adductor ball squeeze Side bilateral Reps/Minutes 5 hold LAQ Sitting Exercise Name LAQ Side left Resistance 2# Hamstring Curls Sitting Exercise Name HS curl Side left Resistance Lv 2 Equipment Used T-band Therapeutic Activity Therapeutic Activity 1 Name Stand-pivot transfers to L side Comments Verbal cues for checking to make sure chair was there, position of L UE and L LE, transfer techniques Gait Training Gait Activity Trent Walker amb Description Min A x1 amb with Trent-walker Device Used R Trent-walker, R LBQC Level of Assistance CGA->Min Ax1 Distance/Duration 160' x1 /c Trent, 60' x1 /c LBQC PT-OP-T Assessment and Plan Start: 09/17/19 18:00 Freq: Status: Active Protocol: Document 09/24/19 13:45 DCW (Rec: 09/24/19 14:34 DCW [id number]) Physical Therapy Assessment Impairments Impairments Activity Tolerance,Balance, Coordination,Functional Activities,Functional Mobility ,Gait,Pain,ROM,Sensation, Strength,Tone,Transfers Goals Four Impairment Pt demonstrates strength impairment throughout left LE Prison Goal (LTG) Pt to display MMT >3+/5 through L LE LTG Duration 11/18/19 Three Impairment Pt SBA for transfers and bed mobility d/t Left Neglect Prison Goal (LTG) Pt to demonstrate independent transfers and bed mobility with an ability to address left LE and UE 80% of the time Two Impairment Pt ambulates 120' SBA with hemiwalker Short Term Goal (STG) Pt to ambulate 200' Independently with hemiwalker to improve independence at home and reduce reliance on his wheelchair STG Duration 10/18/19 Dtp Operator Goal (LTG) Pt to ambulate 300' SBA /c SPC LTG Duration 11/18/19 One Impairment Pt does not have an appropriate home exercise program Short Term Goal (STG) Pt to be independent and compliant with an appropriate HEP STG Duration 10/18/19 Assessment Summary Assessment Trial of quad cane today, due to pt's habit of turning trent- walker at an angle and getting his walker leg very close to his right foot during swing phase. Pt had slightly less stability with quad cane, but was able to ambulate 60' with Min Ax1. Physical Therapy Plan Frequency and Duration Frequency of Treatment 2x/Week Duration of Treatment 12 weeks Plan of Care Start Date 09/17/19 Plan of Care End Date 12/10/19 Therapeutic Interventions Therapeutic Interventions Aquatic Therapy,Balance Training,Coordination Training ,Gait Training,Home Exercise Program,Manual Therapy, Neuromuscular Re-education, Patient/Caregiver Education, Self-Care/Home Management, Therapeutic Activities, Therapeutic Exercises Modalities Cold Pack/Ice Massage,Electric Stimulation,Hot Packs, Ultrasound Next Visit Focus/Plan Next Note Type Treatment Note Next Visit Plan Strengthening, gait training, balance training, NMR
--- NOTE | 2019-09-26 16:11 | PT.OTN ---
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) Physical Therapy Treatment Note PT-OP-A Visit Information Start: 09/17/19 18:00 Freq: Status: Active Protocol: Document 09/26/19 13:02 HH (Rec: 09/26/19 16:11 [email or web address]) Out-Patient Physical Therapy Visit Information Visit Information Visit Type Treatment Note Visit Note pt's attended session Visit Start Time 13:02 Visit Stop Time 13:46 Total Visit Minutes 44 Visit Number 4 Number of JAVA ANALYST Visits 0 PT-OP-B Current Condition Start: 09/17/19 18:00 Freq: Status: Active Protocol: Document 09/17/19 12:00 DCW (Rec: 09/18/19 10:29 DCW [id number]) Current Condition History of Current Condition Onset Date 04/14/19 Current Complaints Hemiparesis secondary to CVA History of Current Condition Pt is a 69 year old male presenting to skilled outpatient physical therapy with left-side neglect, hemiparesis, loss of independence, and difficulty walking following an intraparenchymal hemorrhage on 04/14/19. Pt was transferred from [facility] to [facility], where a craniotomy was performed on 04/16/19. Pt completed 7 weeks of rehab/ recovery at [facility], and then underwent a second surgery on 06/26/19 to replace the skull fragment. Pt was then at an acute rehab facility 06/30-07/18/19, and since then has been receiving home health physical therapy. Pt presents today with limited left-sided function, left visual and physical neglect, difficulty with transfers, decreased activity tolerance, decreased gait, and many other secondary effects following his CVA. Pt has been working on ambulation with a trent walker with home health, and his states he has walked around 100' a few times, but always with a therapist, as she does not feel comfortable walking with him yet. Pt exclusively gets around at time of evaluation in a manual wheelchair. Pt's transfers have been going fairly well, with his caregivers performing CGA, however pt will occasionally need assistance with placement of his left UE and LE due to neglect. Pt's biggest complaint at the moment is leg pain, his reports they have tried PT, Massage, CBD il, Tylenol, Oxycodine, and Gabapentin, all with minimal benefit. Prior to CVA, pt was fully independent in all activities. Pt and have garegivers 8 hrs a day for assistance. Prior Treatments and Tests Craniotomy 04/16/19, Acute rehab, Skull fragment replacement 06/26/19, home health PT Prior Functional Status Baseline Function- ADL's Independent Baseline Function- Mobility Independent PT-OP-C Subjective Start: 09/17/19 18:00 Freq: Status: Active Protocol: Document 09/26/19 13:02 HH (Rec: 09/26/19 16:11 HH [email or web address]) OP-PT Subjective Patient Comments Patient Comments 'Im ready to walk with you guabel PT-OP-G Mobility & Gait Start: 09/17/19 18:00 Freq: Status: Active Protocol: Document 09/17/19 12:00 DCW (Rec: 09/18/19 10:29 DCW [id number]) OP Mobility Evaluation Bed Mobility Rolling Rolling torso largely SBA, however requires Min A x1 for positioning of L UE secondary to neglect Supine to and from Sit SBA Transfers Sit to Stand SBA /c gait belt, occasional assistance required for positioning of left foot Bed to Chair Transfers Stand pivot transfer CGA /c gait belt when transfersing in both directions OP Gait Assessment Gait Gait Assistance Required: Contact Guard Assist Distance (Feet) 120 Able to Maintain Weight Bearing Status Yes During Gait Assistive Devices Assistive Device Gait Belt,Trent Walker Orthotic/Prosthetic Devices or Brace: No Gait Deviations General Gait Pattern Antalgic,Ataxic,Decreased Stride Length,Decreased Feet Clearance,Flexed Trunk,Lateral Trunk Lean,Step-to Gait Factors Limiting Gait Function Factors Limiting Gait Function Abnormal Tonal Influences, Decreased Activity Tolerance, Decreased Sensation,Decreased Strength,Incoordination,Poor Balance,Poor Safety Awareness PT-OP-H Neuro Start: 09/17/19 18:00 Freq: Status: Active Protocol: Document 09/17/19 12:00 DCW (Rec: 09/18/19 17:29 DCW [id number]) Sensation Evaluation Gross Sensation Gross Sensation Left UE Impaired,Left LE Impaired Sensation Description Paresthesia,Numbness,Burning, Heaviness,Pain Location Details Left Leg Light Touch Absent Sharp/Dull Absent Deep Pressure Impaired Proprioception (Position) Absent Kinesthesia (Movement) Impaired Deep Tendon Reflex & Clonus Assessment Deep Tendon Reflex Left Achilles Deep Tendon Reflex 3+ Normal But Brisk Left Patellar Deep Tendon Reflex 3+ Normal But Brisk Muscle Tone Tone Assessment Left Lower Extremity Flexor Tone Description Severe Hypotonicity PT-OP-M Strength Start: 09/17/19 18:00 Freq: Status: Active Protocol: Document 09/17/19 12:00 DCW (Rec: 09/18/19 17:29 DCW [id number]) Hip Strength Hip Manual Muscle Testing Right Flexion (L2) 4 Good Extension (S1) 4 Good Abduction 5 Normal Adduction 5 Normal External Rotation 5 Normal Internal Rotation 5 Normal Left Flexion (L2) 3 Fair Extension (S1) 2- Poor- Abduction 2+ Poor+ Adduction 3+ Fair+ External Rotation 3- Fair- Internal Rotation 2- Poor- Reason Not Measured Muscle Tone,Pain Knee Strength Knee Manual Muscle Testing Right Flexion (S2) 5 Normal Extension (L3) 5 Normal Left Flexion (S2) 3- Fair- Extension (L3) 3+ Fair+ Reason Not Measured Muscle Tone,Pain Ankle/Foot Strength Ankle and Foot Manual Muscle Testing Right Dorsiflexion (L4) 5 Normal Plantarflexion (S1) 5 Normal Left Dorsiflexion (L4) 4- Good- Plantarflexion (S1) 3+ Fair+ PT-OP-Q Treatments Start: 09/17/19 18:00 Freq: Status: Active Protocol: Document 09/26/19 13:02 (Rec: 09/26/19 16:11 [email or web address]) Gait Training Gait Activity gait cycle Description in front of mirror Device Used pink 1 lb db, mirror Level of Assistance CGA and verbal cues Surface ground level Distance/Duration 24 mins Treatment Focus stance phase and swing phase of LLE Comments R foot step over DB with R UE support (cues on L knee ext) L foot step over DB with R UE support Neuro Re-Education Treatment Other Activities weight shift Details in front of mirror Reps/Duration 20 mins Comments verbal and tactile cues on L knee to facilitate L knee extension during static stance . Without UE support on bar PT-OP-T Assessment and Plan Start: 09/17/19 18:00 Freq: Status: Active Protocol: Document 09/26/19 13:02 (Rec: 09/26/19 16:11 [email or web address]) Physical Therapy Assessment Goals Four Impairment Pt demonstrates strength impairment throughout left LE Milking Machine Operator Goal (LTG) Pt to display MMT >3+/5 through L LE LTG Duration 11/18/19 Three Impairment Pt SBA for transfers and bed mobility d/t Left Neglect Milking Machine Operator Goal (LTG) Pt to demonstrate independent transfers and bed mobility with an ability to address left LE and UE 80% of the time Two Impairment Pt ambulates 120' SBA with hemiwalker Short Term Goal (STG) Pt to ambulate 200' Independently with hemiwalker to improve independence at home and reduce reliance on his wheelchair STG Duration 10/18/19 Mcc Goal (LTG) Pt to ambulate 300' SBA /c SPC LTG Duration 11/18/19 One Impairment Pt does not have an appropriate home exercise program Short Term Goal (STG) Pt to be independent and compliant with an appropriate HEP STG Duration 10/18/19 Assessment Summary Assessment pt liz tx very well today. Primarily focused on standing weight shift and gait training to improve weight acceptance and foot clearance on LLE. Use of mirror today to improve his body awareness. Physical Therapy Plan Next Visit Focus/Plan Next Note Type Treatment Note Next Visit Plan Strengthening, gait training, balance training, NMR
--- NOTE | 2019-10-01 16:08 | PT.OTN ---
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 (10/01/19) Pain in left leg (10/01/19) Pain in left lower leg (10/01/19) Other abnormalities of gait and mobility (10/01/19) Abnormal posture (10/01/19) Neurologic neglect syndrome (10/01/19) Physical Therapy Treatment Note PT-OP-A Visit Information Start: 09/17/19 18:00 Freq: Status: Active Protocol: Document 10/01/19 15:15 DCW (Rec: 10/01/19 16:08 DCW [id number]) Out-Patient Physical Therapy Visit Information Visit Information Visit Type Treatment Note Visit Start Time 15:15 Visit Stop Time 16:00 Total Visit Minutes 45 Visit Number 5 Number of MOTOR VEHICLE ESCORT DRIVER Visits 0 Evaluation Information Evaluation Date 09/17/19 PT-OP-B Current Condition Start: 09/17/19 18:00 Freq: Status: Active Protocol: Document 09/17/19 12:00 DCW (Rec: 09/18/19 10:29 DCW [id number]) Current Condition History of Current Condition Onset Date 04/14/19 Current Complaints Hemiparesis secondary to CVA History of Current Condition Pt is a 69 year old male presenting to skilled outpatient physical therapy with left-side neglect, hemiparesis, loss of independence, and difficulty walking following an intraparenchymal hemorrhage on 04/14/19. Pt was transferred from [facility] to [facility], where a craniotomy was performed on 04/16/19. Pt completed 7 weeks of rehab/ recovery at [facility], and then underwent a second surgery on 06/26/19 to replace the skull fragment. Pt was then at an acute rehab facility 06/30-07/18/19, and since then has been receiving home health physical therapy. Pt presents today with limited left-sided function, left visual and physical neglect, difficulty with transfers, decreased activity tolerance, decreased gait, and many other secondary effects following his CVA. Pt has been working on ambulation with a trent walker with home health, and his states he has walked around 100' a few times, but always with a therapist, as she does not feel comfortable walking with him yet. Pt exclusively gets around at time of evaluation in a manual wheelchair. Pt's transfers have been going fairly well, with his caregivers performing CGA, however pt will occasionally need assistance with placement of his left UE and LE due to neglect. Pt's biggest complaint at the moment is leg pain, his reports they have tried PT, Massage, CBD il, Tylenol, Oxycodine, and Gabapentin, all with minimal benefit. Prior to CVA, pt was fully independent in all activities. Pt and have garegivers 8 hrs a day for assistance. Prior Treatments and Tests Craniotomy 04/16/19, Acute rehab, Skull fragment replacement 06/26/19, home health PT Prior Functional Status Baseline Function- ADL's Independent Baseline Function- Mobility Independent PT-OP-C Subjective Start: 09/17/19 18:00 Freq: Status: Active Protocol: Document 10/01/19 15:15 DCW (Rec: 10/01/19 16:08 DCW [id number]) OP-PT Subjective Patient Comments Patient Comments Pt notes he has had a large increase in left leg pain over the past 12 hours. PT-OP-G Mobility & Gait Start: 09/17/19 18:00 Freq: Status: Active Protocol: Document 09/17/19 12:00 DCW (Rec: 09/18/19 10:29 DCW [id number]) OP Mobility Evaluation Bed Mobility Rolling Rolling torso largely SBA, however requires Min A x1 for positioning of L UE secondary to neglect Supine to and from Sit SBA Transfers Sit to Stand SBA /c gait belt, occasional assistance required for positioning of left foot Bed to Chair Transfers Stand pivot transfer CGA /c gait belt when transfersing in both directions OP Gait Assessment Gait Gait Assistance Required: Contact Guard Assist Distance (Feet) 120 Able to Maintain Weight Bearing Status Yes During Gait Assistive Devices Assistive Device Gait Belt,Trent Walker Orthotic/Prosthetic Devices or Brace: No Gait Deviations General Gait Pattern Antalgic,Ataxic,Decreased Stride Length,Decreased Feet Clearance,Flexed Trunk,Lateral Trunk Lean,Step-to Gait Factors Limiting Gait Function Factors Limiting Gait Function Abnormal Tonal Influences, Decreased Activity Tolerance, Decreased Sensation,Decreased Strength,Incoordination,Poor Balance,Poor Safety Awareness PT-OP-H Neuro Start: 09/17/19 18:00 Freq: Status: Active Protocol: Document 09/17/19 12:00 DCW (Rec: 09/18/19 17:29 DCW [id number]) Sensation Evaluation Gross Sensation Gross Sensation Left UE Impaired,Left LE Impaired Sensation Description Paresthesia,Numbness,Burning, Heaviness,Pain Location Details Left Leg Light Touch Absent Sharp/Dull Absent Deep Pressure Impaired Proprioception (Position) Absent Kinesthesia (Movement) Impaired Deep Tendon Reflex & Clonus Assessment Deep Tendon Reflex Left Achilles Deep Tendon Reflex 3+ Normal But Brisk Left Patellar Deep Tendon Reflex 3+ Normal But Brisk Muscle Tone Tone Assessment Left Lower Extremity Flexor Tone Description Severe Hypotonicity PT-OP-M Strength Start: 09/17/19 18:00 Freq: Status: Active Protocol: Document 09/17/19 12:00 DCW (Rec: 09/18/19 17:29 DCW [id number]) Hip Strength Hip Manual Muscle Testing Right Flexion (L2) 4 Good Extension (S1) 4 Good Abduction 5 Normal Adduction 5 Normal External Rotation 5 Normal Internal Rotation 5 Normal Left Flexion (L2) 3 Fair Extension (S1) 2- Poor- Abduction 2+ Poor+ Adduction 3+ Fair+ External Rotation 3- Fair- Internal Rotation 2- Poor- Reason Not Measured Muscle Tone,Pain Knee Strength Knee Manual Muscle Testing Right Flexion (S2) 5 Normal Extension (L3) 5 Normal Left Flexion (S2) 3- Fair- Extension (L3) 3+ Fair+ Reason Not Measured Muscle Tone,Pain Ankle/Foot Strength Ankle and Foot Manual Muscle Testing Right Dorsiflexion (L4) 5 Normal Plantarflexion (S1) 5 Normal Left Dorsiflexion (L4) 4- Good- Plantarflexion (S1) 3+ Fair+ PT-OP-Q Treatments Start: 09/17/19 18:00 Freq: Status: Active Protocol: Document 10/01/19 15:15 DCW (Rec: 10/01/19 16:08 DCW [id number]) Cardio Equipment Recumbent Elliptical (Handmade Mobile) Duration (Minutes) 5 Resistance 2 Seat Position 12 Other L UE strapped to handle Therapeutic Exercises Sitting Exercises Seated Marching Sitting Exercise Name Seated Marching Side bilateral Resistance 4# Abduction Sitting Exercise Name Hip Abduction Side bilateral Resistance Lv 3 Equipment Used T-band LAQ Sitting Exercise Name LAQ Side left Resistance 4# Standing Exercises Toe-taps Standing Exercise Name Toe-taps Side bilateral Equipment Used 6 step Comments fwd, lateral Other Exercises Sit<->Stand Other Exercise Name Sit<->Stand /c R LE on step Equipment Used 4 Step, // bars Gait Training Gait Activity Trent Walker amb Description Min A x1 amb with LBQC Device Used R LBQC Level of Assistance CGA->Min Ax1 Distance/Duration 80' x2 /c LBQC PT-OP-T Assessment and Plan Start: 09/17/19 18:00 Freq: Status: Active Protocol: Document 10/01/19 15:15 DCW (Rec: 10/01/19 16:08 DCW [id number]) Physical Therapy Assessment Impairments Impairments Activity Tolerance,Balance, Coordination,Functional Activities,Functional Mobility ,Gait,Pain,ROM,Sensation, Strength,Tone,Transfers Goals Four Impairment Pt demonstrates strength impairment throughout left LE Top Frame Maker Goal (LTG) Pt to display MMT >3+/5 through L LE LTG Duration 11/18/19 Three Impairment Pt SBA for transfers and bed mobility d/t Left Neglect Top Frame Maker Goal (LTG) Pt to demonstrate independent transfers and bed mobility with an ability to address left LE and UE 80% of the time Two Impairment Pt ambulates 120' SBA with hemiwalker Short Term Goal (STG) Pt to ambulate 200' Independently with hemiwalker to improve independence at home and reduce reliance on his wheelchair STG Duration 10/18/19 Top Frame Maker Goal (LTG) Pt to ambulate 300' SBA /c SPC LTG Duration 11/18/19 One Impairment Pt does not have an appropriate home exercise program Short Term Goal (STG) Pt to be independent and compliant with an appropriate HEP STG Duration 10/18/19 Assessment Summary Assessment Pt continues to improve with L LE use, and pt shows fewer signs of left LE neglect. Pt following instruction well. Physical Therapy Plan Frequency and Duration Frequency of Treatment 2x/Week Duration of Treatment 12 weeks Plan of Care Start Date 09/17/19 Plan of Care End Date 12/10/19 Therapeutic Interventions Therapeutic Interventions Aquatic Therapy,Balance Training,Coordination Training ,Gait Training,Home Exercise Program,Manual Therapy, Neuromuscular Re-education, Patient/Caregiver Education, Self-Care/Home Management, Therapeutic Activities, Therapeutic Exercises Modalities Cold Pack/Ice Massage,Electric Stimulation,Hot Packs, Ultrasound Next Visit Focus/Plan Next Note Type Treatment Note Next Visit Plan Strengthening, gait training, balance training, NMR
--- NOTE | 2019-10-03 09:56 | PT.OTN ---
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) Physical Therapy Treatment Note PT-OP-A Visit Information Start: 09/17/19 18:00 Freq: Status: Active Protocol: Document 10/03/19 09:00 DCW (Rec: 10/03/19 09:55 DCW [id number]) Out-Patient Physical Therapy Visit Information Visit Information Visit Type Treatment Note Visit Start Time 09:00 Visit Stop Time 09:45 Total Visit Minutes 45 Visit Number 6 Number of CREATIVE SERVICES DIRECTOR Visits 0 Evaluation Information Evaluation Date 09/17/19 PT-OP-B Current Condition Start: 09/17/19 18:00 Freq: Status: Active Protocol: Document 09/17/19 12:00 DCW (Rec: 09/18/19 10:29 DCW [id number]) Current Condition History of Current Condition Onset Date 04/14/19 Current Complaints Hemiparesis secondary to CVA History of Current Condition Pt is a 69 year old male presenting to skilled outpatient physical therapy with left-side neglect, hemiparesis, loss of independence, and difficulty walking following an intraparenchymal hemorrhage on 04/14/19. Pt was transferred from [facility] to [facility], where a craniotomy was performed on 04/16/19. Pt completed 7 weeks of rehab/ recovery at [facility], and then underwent a second surgery on 06/26/19 to replace the skull fragment. Pt was then at an acute rehab facility 06/30-07/18/19, and since then has been receiving home health physical therapy. Pt presents today with limited left-sided function, left visual and physical neglect, difficulty with transfers, decreased activity tolerance, decreased gait, and many other secondary effects following his CVA. Pt has been working on ambulation with a trent walker with home health, and his states he has walked around 100' a few times, but always with a therapist, as she does not feel comfortable walking with him yet. Pt exclusively gets around at time of evaluation in a manual wheelchair. Pt's transfers have been going fairly well, with his caregivers performing CGA, however pt will occasionally need assistance with placement of his left UE and LE due to neglect. Pt's biggest complaint at the moment is leg pain, his reports they have tried PT, Massage, CBD il, Tylenol, Oxycodine, and Gabapentin, all with minimal benefit. Prior to CVA, pt was fully independent in all activities. Pt and have garegivers 8 hrs a day for assistance. Prior Treatments and Tests Craniotomy 04/16/19, Acute rehab, Skull fragment replacement 06/26/19, home health PT Prior Functional Status Baseline Function- ADL's Independent Baseline Function- Mobility Independent PT-OP-C Subjective Start: 09/17/19 18:00 Freq: Status: Active Protocol: Document 10/03/19 09:00 DCW (Rec: 10/03/19 09:55 DCW [id number]) OP-PT Subjective Patient Comments Patient Comments Pt reports his leg is still hurting, mostly when he is weight-bearing, but it doew feel better when he starts moving. PT-OP-G Mobility & Gait Start: 09/17/19 18:00 Freq: Status: Active Protocol: Document 09/17/19 12:00 DCW (Rec: 09/18/19 10:29 DCW [id number]) OP Mobility Evaluation Bed Mobility Rolling Rolling torso largely SBA, however requires Min A x1 for positioning of L UE secondary to neglect Supine to and from Sit SBA Transfers Sit to Stand SBA /c gait belt, occasional assistance required for positioning of left foot Bed to Chair Transfers Stand pivot transfer CGA /c gait belt when transfersing in both directions OP Gait Assessment Gait Gait Assistance Required: Contact Guard Assist Distance (Feet) 120 Able to Maintain Weight Bearing Status Yes During Gait Assistive Devices Assistive Device Gait Belt,Trent Walker Orthotic/Prosthetic Devices or Brace: No Gait Deviations General Gait Pattern Antalgic,Ataxic,Decreased Stride Length,Decreased Feet Clearance,Flexed Trunk,Lateral Trunk Lean,Step-to Gait Factors Limiting Gait Function Factors Limiting Gait Function Abnormal Tonal Influences, Decreased Activity Tolerance, Decreased Sensation,Decreased Strength,Incoordination,Poor Balance,Poor Safety Awareness PT-OP-H Neuro Start: 09/17/19 18:00 Freq: Status: Active Protocol: Document 09/17/19 12:00 DCW (Rec: 09/18/19 17:29 DCW [id number]) Sensation Evaluation Gross Sensation Gross Sensation Left UE Impaired,Left LE Impaired Sensation Description Paresthesia,Numbness,Burning, Heaviness,Pain Location Details Left Leg Light Touch Absent Sharp/Dull Absent Deep Pressure Impaired Proprioception (Position) Absent Kinesthesia (Movement) Impaired Deep Tendon Reflex & Clonus Assessment Deep Tendon Reflex Left Achilles Deep Tendon Reflex 3+ Normal But Brisk Left Patellar Deep Tendon Reflex 3+ Normal But Brisk Muscle Tone Tone Assessment Left Lower Extremity Flexor Tone Description Severe Hypotonicity PT-OP-M Strength Start: 09/17/19 18:00 Freq: Status: Active Protocol: Document 09/17/19 12:00 DCW (Rec: 09/18/19 17:29 DCW [id number]) Hip Strength Hip Manual Muscle Testing Right Flexion (L2) 4 Good Extension (S1) 4 Good Abduction 5 Normal Adduction 5 Normal External Rotation 5 Normal Internal Rotation 5 Normal Left Flexion (L2) 3 Fair Extension (S1) 2- Poor- Abduction 2+ Poor+ Adduction 3+ Fair+ External Rotation 3- Fair- Internal Rotation 2- Poor- Reason Not Measured Muscle Tone,Pain Knee Strength Knee Manual Muscle Testing Right Flexion (S2) 5 Normal Extension (L3) 5 Normal Left Flexion (S2) 3- Fair- Extension (L3) 3+ Fair+ Reason Not Measured Muscle Tone,Pain Ankle/Foot Strength Ankle and Foot Manual Muscle Testing Right Dorsiflexion (L4) 5 Normal Plantarflexion (S1) 5 Normal Left Dorsiflexion (L4) 4- Good- Plantarflexion (S1) 3+ Fair+ PT-OP-Q Treatments Start: 09/17/19 18:00 Freq: Status: Active Protocol: Document 10/03/19 09:00 DCW (Rec: 10/03/19 09:55 DCW [id number]) Cardio Equipment Recumbent Elliptical (Jobool) Duration (Minutes) 5 Resistance 2 Seat Position 12 Therapeutic Exercises Standing Exercises Abduction Standing Exercise Name R hip abduction Equipment Used Slider Comments R foot sliding, L LE support Other Exercises Side-stepping Other Exercise Name Side-stepping at rail - CGA Gait Training Gait Activity Trent Walker amb Description Min A x1 amb with LBQC Device Used R LBQC Level of Assistance CGA->Min Ax1 Distance/Duration 190' x1 Neuro Re-Education Treatment Balance Activities Standing Balance Details Static standing Surface inside // bars Comments CGA, Weight shift PT-OP-T Assessment and Plan Start: 09/17/19 18:00 Freq: Status: Active Protocol: Document 10/03/19 09:00 DCW (Rec: 10/03/19 09:55 DCW [id number]) Physical Therapy Assessment Impairments Impairments Activity Tolerance,Balance, Coordination,Functional Activities,Functional Mobility ,Gait,Pain,ROM,Sensation, Strength,Tone,Transfers Goals Four Impairment Pt demonstrates strength impairment throughout left LE Assisted Goal (LTG) Pt to display MMT >3+/5 through L LE LTG Duration 11/18/19 Three Impairment Pt SBA for transfers and bed mobility d/t Left Neglect Home Health Nurse Goal (LTG) Pt to demonstrate independent transfers and bed mobility with an ability to address left LE and UE 80% of the time Two Impairment Pt ambulates 120' SBA with hemiwalker Short Term Goal (STG) Pt to ambulate 200' Independently with hemiwalker to improve independence at home and reduce reliance on his wheelchair STG Duration 10/18/19 Home Health Nurse Goal (LTG) Pt to ambulate 300' SBA /c SPC LTG Duration 11/18/19 One Impairment Pt does not have an appropriate home exercise program Short Term Goal (STG) Pt to be independent and compliant with an appropriate HEP STG Duration 10/18/19 Assessment Summary Assessment Pt making small improvements each visit, better heel strike during gait, did well with static stance and weight shift today. Physical Therapy Plan Frequency and Duration Frequency of Treatment 2x/Week Duration of Treatment 12 weeks Plan of Care Start Date 09/17/19 Plan of Care End Date 12/10/19 Therapeutic Interventions Therapeutic Interventions Aquatic Therapy,Balance Training,Coordination Training ,Gait Training,Home Exercise Program,Manual Therapy, Neuromuscular Re-education, Patient/Caregiver Education, Self-Care/Home Management, Therapeutic Activities, Therapeutic Exercises Modalities Cold Pack/Ice Massage,Electric Stimulation,Hot Packs, Ultrasound Next Visit Focus/Plan Next Note Type Treatment Note Next Visit Plan Strengthening, gait training, balance training, NMR
--- NOTE | 2019-10-08 18:12 | PT.OTN ---
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) Physical Therapy Treatment Note PT-OP-A Visit Information Start: 09/17/19 18:00 Freq: Status: Active Protocol: Document 10/08/19 16:04 HH (Rec: 10/08/19 18:05 HH [id number]) Out-Patient Physical Therapy Visit Information Visit Information Visit Type Treatment Note Visit Start Time 16:04 Visit Stop Time 16:45 Total Visit Minutes 41 Visit Number 7 Number of ERCO MACHINE OPERATOR Visits 0 PT-OP-B Current Condition Start: 09/17/19 18:00 Freq: Status: Active Protocol: Document 09/17/19 12:00 DCW (Rec: 09/18/19 10:29 DCW [id number]) Current Condition History of Current Condition Onset Date 04/14/19 Current Complaints Hemiparesis secondary to CVA History of Current Condition Pt is a 69 year old male presenting to skilled outpatient physical therapy with left-side neglect, hemiparesis, loss of independence, and difficulty walking following an intraparenchymal hemorrhage on 04/14/19. Pt was transferred from [facility] to [facility], where a craniotomy was performed on 04/16/19. Pt completed 7 weeks of rehab/ recovery at [facility], and then underwent a second surgery on 06/26/19 to replace the skull fragment. Pt was then at an acute rehab facility 06/30-07/18/19, and since then has been receiving home health physical therapy. Pt presents today with limited left-sided function, left visual and physical neglect, difficulty with transfers, decreased activity tolerance, decreased gait, and many other secondary effects following his CVA. Pt has been working on ambulation with a trent walker with home health, and his states he has walked around 100' a few times, but always with a therapist, as she does not feel comfortable walking with him yet. Pt exclusively gets around at time of evaluation in a manual wheelchair. Pt's transfers have been going fairly well, with his caregivers performing CGA, however pt will occasionally need assistance with placement of his left UE and LE due to neglect. Pt's biggest complaint at the moment is leg pain, his reports they have tried PT, Massage, CBD il, Tylenol, Oxycodine, and Gabapentin, all with minimal benefit. Prior to CVA, pt was fully independent in all activities. Pt and have garegivers 8 hrs a day for assistance. 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 PT-OP-G Mobility & Gait Start: 09/17/19 18:00 Freq: Status: Active Protocol: Document 09/17/19 12:00 DCW (Rec: 09/18/19 10:29 DCW [id number]) OP Mobility Evaluation Bed Mobility Rolling Rolling torso largely SBA, however requires Min A x1 for positioning of L UE secondary to neglect Supine to and from Sit SBA Transfers Sit to Stand SBA /c gait belt, occasional assistance required for positioning of left foot Bed to Chair Transfers Stand pivot transfer CGA /c gait belt when transfersing in both directions OP Gait Assessment Gait Gait Assistance Required: Contact Guard Assist Distance (Feet) 120 Able to Maintain Weight Bearing Status Yes During Gait Assistive Devices Assistive Device Gait Belt,Trent Walker Orthotic/Prosthetic Devices or Brace: No Gait Deviations General Gait Pattern Antalgic,Ataxic,Decreased Stride Length,Decreased Feet Clearance,Flexed Trunk,Lateral Trunk Lean,Step-to Gait Factors Limiting Gait Function Factors Limiting Gait Function Abnormal Tonal Influences, Decreased Activity Tolerance, Decreased Sensation,Decreased Strength,Incoordination,Poor Balance,Poor Safety Awareness PT-OP-H Neuro Start: 09/17/19 18:00 Freq: Status: Active Protocol: Document 09/17/19 12:00 DCW (Rec: 09/18/19 17:29 DC [id number]) Sensation Evaluation Gross Sensation Gross Sensation Left UE Impaired,Left LE Impaired Sensation Description Paresthesia,Numbness,Burning, Heaviness,Pain Location Details Left Leg Light Touch Absent Sharp/Dull Absent Deep Pressure Impaired Proprioception (Position) Absent Kinesthesia (Movement) Impaired Deep Tendon Reflex & Clonus Assessment Deep Tendon Reflex Left Achilles Deep Tendon Reflex 3+ Normal But Brisk Left Patellar Deep Tendon Reflex 3+ Normal But Brisk Muscle Tone Tone Assessment Left Lower Extremity Flexor Tone Description Severe Hypotonicity PT-OP-M Strength Start: 09/17/19 18:00 Freq: Status: Active Protocol: Document 09/17/19 12:00 DCW (Rec: 09/18/19 17:29 DC [id number]) Hip Strength Hip Manual Muscle Testing Right Flexion (L2) 4 Good Extension (S1) 4 Good Abduction 5 Normal Adduction 5 Normal External Rotation 5 Normal Internal Rotation 5 Normal Left Flexion (L2) 3 Fair Extension (S1) 2- Poor- Abduction 2+ Poor+ Adduction 3+ Fair+ External Rotation 3- Fair- Internal Rotation 2- Poor- Reason Not Measured Muscle Tone,Pain Knee Strength Knee Manual Muscle Testing Right Flexion (S2) 5 Normal Extension (L3) 5 Normal Left Flexion (S2) 3- Fair- Extension (L3) 3+ Fair+ Reason Not Measured Muscle Tone,Pain Ankle/Foot Strength Ankle and Foot Manual Muscle Testing Right Dorsiflexion (L4) 5 Normal Plantarflexion (S1) 5 Normal Left Dorsiflexion (L4) 4- Good- Plantarflexion (S1) 3+ Fair+ PT-OP-Q Treatments Start: 09/17/19 18:00 Freq: Status: Active Protocol: Document 10/08/19 16:04 (Rec: 10/08/19 18:05 [id number]) Therapeutic Exercises Supine Exercises supine isometric hip abd Supine Exercise Name B knee bent Side bilateral Reps/Minutes 3 secs holdx 5 Comments manual resistance Gait Training Gait Activity WBQC Device Used WBQC on R UE Level of Assistance CGA to min A on LLE Surface ground level Comments cues on avoiding scissoring gait. gait cycle Description in front of mirror Device Used pink 1 lb db, mirror Level of Assistance CGA and verbal cues Surface ground level Distance/Duration 24 mins Treatment Focus stance phase and swing phase of LLE Comments R foot step over DB with R UE support (cues on L knee ext) L foot step over DB with R UE support Manual Therapy Treatment Soft Tissue Mobilization L medial knee jointline Mobilization Type Sustained Pressure,Trigger Point Release Intensity/Depth Superficial Body Position Supine L adductor Body Location L hip adductors Mobilization Type Rolling,Sustained Pressure Intensity/Depth Superficial Body Position Supine PT-OP-T Assessment and Plan Start: 09/17/19 18:00 Freq: Status: Active Protocol: Document 10/08/19 16:04 (Rec: 10/08/19 18:05 [id number]) Physical Therapy Assessment Goals Four Impairment Pt demonstrates strength impairment throughout left LE Clerk Operator Goal (LTG) Pt to display MMT >3+/5 through L LE LTG Duration 11/18/19 Three Impairment Pt SBA for transfers and bed mobility d/t Left Neglect Skilled Nursing Goal (LTG) Pt to demonstrate independent transfers and bed mobility with an ability to address left LE and UE 80% of the time Two Impairment Pt ambulates 120' SBA with hemiwalker Short Term Goal (STG) Pt to ambulate 200' Independently with hemiwalker to improve independence at home and reduce reliance on his wheelchair STG Duration 10/18/19 Clerk Operator Goal (LTG) Pt to ambulate 300' SBA /c SPC LTG Duration 11/18/19 One Impairment Pt does not have an appropriate home exercise program Short Term Goal (STG) Pt to be independent and compliant with an appropriate HEP STG Duration 10/18/19 Assessment Summary Assessment Pt cont to have significant L thigh pain. Assessed pt today and significant tenderness noted to pressure for L hip adductors proximal> distal. Explained to pt and his regarding overuse of adductors as a compensatory movement pattern from his flexion pattern. Pt reports symptoms relieved after manual therapy. Physical Therapy Plan Next Visit Focus/Plan Next Note Type Treatment Note Next Visit Plan reassess pt's symptoms Strengthening, gait training, balance training, NMR
--- NOTE | 2019-10-10 16:17 | PT.OTN ---
Current Diagnoses Nontraumatic intracerebral hemorrhage, unspecified (10/10/19) Hemiplegia and hemiparesis following cerebral infarction affecting left non-dominant side (10/10/19) Pain in left leg (10/10/19) Pain in left lower leg (10/10/19) Other abnormalities of gait and mobility (10/10/19) Abnormal posture (10/10/19) Neurologic neglect syndrome (10/10/19) Physical Therapy Treatment Note PT-OP-A Visit Information Start: 09/17/19 18:00 Freq: Status: Active Protocol: Document 10/10/19 13:45 HH (Rec: 10/10/19 16:16 HH [email or web address]) Out-Patient Physical Therapy Visit Information Visit Information Visit Type Treatment Note Visit Start Time 13:45 Visit Stop Time 14:40 Total Visit Minutes 55 Visit Number 8 Number of COPY SUPERVISOR Visits 0 PT-OP-B Current Condition Start: 09/17/19 18:00 Freq: Status: Active Protocol: Document 09/17/19 12:00 DCW (Rec: 09/18/19 10:29 DCW [id number]) Current Condition History of Current Condition Onset Date 04/14/19 Current Complaints Hemiparesis secondary to CVA History of Current Condition Pt is a 69 year old male presenting to skilled outpatient physical therapy with left-side neglect, hemiparesis, loss of independence, and difficulty walking following an intraparenchymal hemorrhage on 04/14/19. Pt was transferred from [facility] to [facility], where a craniotomy was performed on 04/16/19. Pt completed 7 weeks of rehab/ recovery at [facility], and then underwent a second surgery on 06/26/19 to replace the skull fragment. Pt was then at an acute rehab facility 06/30-07/18/19, and since then has been receiving home health physical therapy. Pt presents today with limited left-sided function, left visual and physical neglect, difficulty with transfers, decreased activity tolerance, decreased gait, and many other secondary effects following his CVA. Pt has been working on ambulation with a trent walker with home health, and his states he has walked around 100' a few times, but always with a therapist, as she does not feel comfortable walking with him yet. Pt exclusively gets around at time of evaluation in a manual wheelchair. Pt's transfers have been going fairly well, with his caregivers performing CGA, however pt will occasionally need assistance with placement of his left UE and LE due to neglect. Pt's biggest complaint at the moment is leg pain, his reports they have tried PT, Massage, CBD il, Tylenol, Oxycodine, and Gabapentin, all with minimal benefit. Prior to CVA, pt was fully independent in all activities. Pt and have garegivers 8 hrs a day for assistance. Prior Treatments and Tests Craniotomy 04/16/19, Acute rehab, Skull fragment replacement 06/26/19, home health PT Prior Functional Status Baseline Function- ADL's Independent Baseline Function- Mobility Independent PT-OP-C Subjective Start: 09/17/19 18:00 Freq: Status: Active Protocol: Document 10/10/19 13:45 HH (Rec: 10/10/19 16:16 HH [email or web address]) OP-PT Subjective Patient Comments Patient Comments My leg feels pretty good after last visit. i was able to sleep better. pt's also stated they have been using rolling pin to massage his adductors. Patient Reported Progress Improving PT-OP-G Mobility & Gait Start: 09/17/19 18:00 Freq: Status: Active Protocol: Document 09/17/19 12:00 DCW (Rec: 09/18/19 10:29 DCW [id number]) OP Mobility Evaluation Bed Mobility Rolling Rolling torso largely SBA, however requires Min A x1 for positioning of L UE secondary to neglect Supine to and from Sit SBA Transfers Sit to Stand SBA /c gait belt, occasional assistance required for positioning of left foot Bed to Chair Transfers Stand pivot transfer CGA /c gait belt when transfersing in both directions OP Gait Assessment Gait Gait Assistance Required: Contact Guard Assist Distance (Feet) 120 Able to Maintain Weight Bearing Status Yes During Gait Assistive Devices Assistive Device Gait Belt,Trent Walker Orthotic/Prosthetic Devices or Brace: No Gait Deviations General Gait Pattern Antalgic,Ataxic,Decreased Stride Length,Decreased Feet Clearance,Flexed Trunk,Lateral Trunk Lean,Step-to Gait Factors Limiting Gait Function Factors Limiting Gait Function Abnormal Tonal Influences, Decreased Activity Tolerance, Decreased Sensation,Decreased Strength,Incoordination,Poor Balance,Poor Safety Awareness PT-OP-H Neuro Start: 09/17/19 18:00 Freq: Status: Active Protocol: Document 09/17/19 12:00 DCW (Rec: 09/18/19 17:29 DCW [id number]) Sensation Evaluation Gross Sensation Gross Sensation Left UE Impaired,Left LE Impaired Sensation Description Paresthesia,Numbness,Burning, Heaviness,Pain Location Details Left Leg Light Touch Absent Sharp/Dull Absent Deep Pressure Impaired Proprioception (Position) Absent Kinesthesia (Movement) Impaired Deep Tendon Reflex & Clonus Assessment Deep Tendon Reflex Left Achilles Deep Tendon Reflex 3+ Normal But Brisk Left Patellar Deep Tendon Reflex 3+ Normal But Brisk Muscle Tone Tone Assessment Left Lower Extremity Flexor Tone Description Severe Hypotonicity PT-OP-M Strength Start: 09/17/19 18:00 Freq: Status: Active Protocol: Document 09/17/19 12:00 DCW (Rec: 09/18/19 17:29 DCW [id number]) Hip Strength Hip Manual Muscle Testing Right Flexion (L2) 4 Good Extension (S1) 4 Good Abduction 5 Normal Adduction 5 Normal External Rotation 5 Normal Internal Rotation 5 Normal Left Flexion (L2) 3 Fair Extension (S1) 2- Poor- Abduction 2+ Poor+ Adduction 3+ Fair+ External Rotation 3- Fair- Internal Rotation 2- Poor- Reason Not Measured Muscle Tone,Pain Knee Strength Knee Manual Muscle Testing Right Flexion (S2) 5 Normal Extension (L3) 5 Normal Left Flexion (S2) 3- Fair- Extension (L3) 3+ Fair+ Reason Not Measured Muscle Tone,Pain Ankle/Foot Strength Ankle and Foot Manual Muscle Testing Right Dorsiflexion (L4) 5 Normal Plantarflexion (S1) 5 Normal Left Dorsiflexion (L4) 4- Good- Plantarflexion (S1) 3+ Fair+ PT-OP-Q Treatments Start: 09/17/19 18:00 Freq: Status: Active Protocol: Document 10/10/19 13:45 HH (Rec: 10/10/19 16:16 HH [email or web address]) Therapeutic Exercises Supine Exercises supine isometric hip abd Supine Exercise Name B knee bent Side bilateral Reps/Minutes 3 secs holdx 5 Comments manual resistance Standing Exercises Abduction Standing Exercise Name L hip abduction Equipment Used Slider Reps/Minutes 10 mins Comments L foot slide fwd and bwd, laterally as well Gait Training Gait Activity WBQC Device Used WBQC on R UE Level of Assistance CGA to min A on LLE Surface ground level Comments cues on avoiding scissoring gait. gait cycle Description in front of mirror Device Used pink 1 lb db, mirror Level of Assistance CGA and verbal cues Surface ground level Distance/Duration 24 mins Treatment Focus stance phase and swing phase of LLE Comments R foot step over DB with R UE support (cues on L knee ext) L foot step over DB with R UE support Manual Therapy Treatment Soft Tissue Mobilization L medial knee jointline Mobilization Type Sustained Pressure,Trigger Point Release Intensity/Depth Superficial Body Position Supine L adductor Body Location L hip adductors Mobilization Type Rolling,Sustained Pressure Intensity/Depth Superficial Body Position Supine PT-OP-R Modalities Start: 09/17/19 18:00 Freq: Status: Active Protocol: Document 10/10/19 13:45 HH (Rec: 10/10/19 16:17 [email or web address]) Hot Pack/Cold Pack Treatment moist heat Location L hip adductors Patient Position Hooklying Treatment Duration (minutes) 10 Patient Tolerance Good PT-OP-T Assessment and Plan Start: 09/17/19 18:00 Freq: Status: Active Protocol: Document 10/10/19 13:45 HH (Rec: 10/10/19 16:16 [email or web address]) Physical Therapy Assessment Goals Four Impairment Pt demonstrates strength impairment throughout left LE Shelter Goal (LTG) Pt to display MMT >3+/5 through L LE LTG Duration 11/18/19 Three Impairment Pt SBA for transfers and bed mobility d/t Left Neglect Shelter Goal (LTG) Pt to demonstrate independent transfers and bed mobility with an ability to address left LE and UE 80% of the time Two Impairment Pt ambulates 120' SBA with hemiwalker Short Term Goal (STG) Pt to ambulate 200' Independently with hemiwalker to improve independence at home and reduce reliance on his wheelchair STG Duration 10/18/19 Shelter Goal (LTG) Pt to ambulate 300' SBA /c SPC LTG Duration 11/18/19 One Impairment Pt does not have an appropriate home exercise program Short Term Goal (STG) Pt to be independent and compliant with an appropriate HEP STG Duration 10/18/19 Assessment Summary Assessment Pt shows improvements with his adductor pain after MT. He also had improved L hip abduction significantly today (supine hip abd and standing hip abd) He was able to amb 150 feet without scissoring gait. Physical Therapy Plan Next Visit Focus/Plan Next Note Type Treatment Note Next Visit Plan reassess pt's symptoms Strengthening, gait training, balance training, NMR
--- NOTE | 2019-10-13 12:47 | PT.OTN ---
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) Physical Therapy Treatment Note PT-OP-A Visit Information Start: 09/17/19 18:00 Freq: Status: Active Protocol: Document 10/13/19 12:21 AW (Rec: 10/13/19 12:45 AW [email or web address]) Out-Patient Physical Therapy Visit Information Visit Information Visit Type Treatment Note Visit Start Time 10:30 Visit Stop Time 11:15 Total Visit Minutes 45 Visit Number 9 Number of TELEPHONE RECORDER Visits 0 Evaluation Information Evaluation Date 09/17/19 PT-OP-B Current Condition Start: 09/17/19 18:00 Freq: Status: Active Protocol: Document 09/17/19 12:00 DCW (Rec: 09/18/19 10:29 DCW [id number]) Current Condition History of Current Condition Onset Date 04/14/19 Current Complaints Hemiparesis secondary to CVA History of Current Condition Pt is a 69 year old male presenting to skilled outpatient physical therapy with left-side neglect, hemiparesis, loss of independence, and difficulty walking following an intraparenchymal hemorrhage on 04/14/19. Pt was transferred from [facility] to [facility], where a craniotomy was performed on 04/16/19. Pt completed 7 weeks of rehab/ recovery at [facility], and then underwent a second surgery on 06/26/19 to replace the skull fragment. Pt was then at an acute rehab facility 06/30-07/18/19, and since then has been receiving home health physical therapy. Pt presents today with limited left-sided function, left visual and physical neglect, difficulty with transfers, decreased activity tolerance, decreased gait, and many other secondary effects following his CVA. Pt has been working on ambulation with a trent walker with home health, and his states he has walked around 100' a few times, but always with a therapist, as she does not feel comfortable walking with him yet. Pt exclusively gets around at time of evaluation in a manual wheelchair. Pt's transfers have been going fairly well, with his caregivers performing CGA, however pt will occasionally need assistance with placement of his left UE and LE due to neglect. Pt's biggest complaint at the moment is leg pain, his reports they have tried PT, Massage, CBD il, Tylenol, Oxycodine, and Gabapentin, all with minimal benefit. Prior to CVA, pt was fully independent in all activities. Pt and have garegivers 8 hrs a day for assistance. Prior Treatments and Tests Craniotomy 04/16/19, Acute rehab, Skull fragment replacement 06/26/19, home health PT Prior Functional Status Baseline Function- ADL's Independent Baseline Function- Mobility Independent PT-OP-C Subjective Start: 09/17/19 18:00 Freq: Status: Active Protocol: Document 10/13/19 12:21 AW (Rec: 10/13/19 12:45 AW [email or web address]) OP-PT Subjective Patient Comments Patient Comments Pt states he has continued to use the rolling technique for his adductors and feels it is very helpful. PT-OP-G Mobility & Gait Start: 09/17/19 18:00 Freq: Status: Active Protocol: Document 09/17/19 12:00 DCW (Rec: 09/18/19 10:29 DCW [id number]) OP Mobility Evaluation Bed Mobility Rolling Rolling torso largely SBA, however requires Min A x1 for positioning of L UE secondary to neglect Supine to and from Sit SBA Transfers Sit to Stand SBA /c gait belt, occasional assistance required for positioning of left foot Bed to Chair Transfers Stand pivot transfer CGA /c gait belt when transfersing in both directions OP Gait Assessment Gait Gait Assistance Required: Contact Guard Assist Distance (Feet) 120 Able to Maintain Weight Bearing Status Yes During Gait Assistive Devices Assistive Device Gait Belt,Trent Walker Orthotic/Prosthetic Devices or Brace: No Gait Deviations General Gait Pattern Antalgic,Ataxic,Decreased Stride Length,Decreased Feet Clearance,Flexed Trunk,Lateral Trunk Lean,Step-to Gait Factors Limiting Gait Function Factors Limiting Gait Function Abnormal Tonal Influences, Decreased Activity Tolerance, Decreased Sensation,Decreased Strength,Incoordination,Poor Balance,Poor Safety Awareness PT-OP-H Neuro Start: 09/17/19 18:00 Freq: Status: Active Protocol: Document 09/17/19 12:00 DCW (Rec: 09/18/19 17:29 DCW [id number]) Sensation Evaluation Gross Sensation Gross Sensation Left UE Impaired,Left LE Impaired Sensation Description Paresthesia,Numbness,Burning, Heaviness,Pain Location Details Left Leg Light Touch Absent Sharp/Dull Absent Deep Pressure Impaired Proprioception (Position) Absent Kinesthesia (Movement) Impaired Deep Tendon Reflex & Clonus Assessment Deep Tendon Reflex Left Achilles Deep Tendon Reflex 3+ Normal But Brisk Left Patellar Deep Tendon Reflex 3+ Normal But Brisk Muscle Tone Tone Assessment Left Lower Extremity Flexor Tone Description Severe Hypotonicity PT-OP-M Strength Start: 09/17/19 18:00 Freq: Status: Active Protocol: Document 09/17/19 12:00 DCW (Rec: 09/18/19 17:29 OHW [id number]) Hip Strength Hip Manual Muscle Testing Right Flexion (L2) 4 Good Extension (S1) 4 Good Abduction 5 Normal Adduction 5 Normal External Rotation 5 Normal Internal Rotation 5 Normal Left Flexion (L2) 3 Fair Extension (S1) 2- Poor- Abduction 2+ Poor+ Adduction 3+ Fair+ External Rotation 3- Fair- Internal Rotation 2- Poor- Reason Not Measured Muscle Tone,Pain Knee Strength Knee Manual Muscle Testing Right Flexion (S2) 5 Normal Extension (L3) 5 Normal Left Flexion (S2) 3- Fair- Extension (L3) 3+ Fair+ Reason Not Measured Muscle Tone,Pain Ankle/Foot Strength Ankle and Foot Manual Muscle Testing Right Dorsiflexion (L4) 5 Normal Plantarflexion (S1) 5 Normal Left Dorsiflexion (L4) 4- Good- Plantarflexion (S1) 3+ Fair+ PT-OP-Q Treatments Start: 09/17/19 18:00 Freq: Status: Active Protocol: Document 10/13/19 12:21 AW (Rec: 10/13/19 12:45 AW [email or web address]) Therapeutic Exercises Supine Exercises hip flexor march Supine Exercise Name hip flexor march Side left Reps/Minutes 15 Comments bent knees, left leg march/ place on floor, return to starting position hip abduction/adduction Supine Exercise Name hip abduction/adduction Side left Equipment Used towel under foot Reps/Minutes 9 reps Comments verbal and tactile cues to keep toes pointed up supine isometric hip abd Supine Exercise Name B knee bent Side bilateral Resistance manual Reps/Minutes 3 secs holdx 5 Comments manual resistance Sidelying Exercises clamshell Sidelying Exercise Name clamshell Side left Reps/Minutes 12 reps - limited excursion Comments left hand gripping edge of mat for support Sitting Exercises Seated Marching Sitting Exercise Name Seated Marching Side bilateral Resistance 4# Equipment Used ankle weights Reps/Minutes 10 bilat Comments cues for slow controlled movement Abduction Sitting Exercise Name Hip Abduction Side bilateral Resistance Lv 3 Equipment Used T-band LAQ Sitting Exercise Name LAQ Side bilateral Resistance 4# Equipment Used ankle weights Therapeutic Activity Therapeutic Activity 1 Name squat-pivot transfers to R side Reps/Minutes 2 reps Comments First rep from transport w/c to treatment table SBA. Second rep from table to transport chair resulted in slide/fall to floor. Wheel locks were set and gait belt was donned. Patient reached for the right handle of the wheelchair and attempted to lift his hips before his right hand was on the armrest. Pt slid to the floor as the chair slid backward, landing on his left hip in sitting position on the floor. He was sitting with the chair on his right, the wall several inches behind him , and the treatment table on the left. He did not hit his head and did not report any injury. The table next to the wheelchair was moved to have more room to assist. Using the gait belt, I assisted the patient from the right side while PT Aide assisted from the left side and PT Denisse assisted from the back to lift the patient back toward the chair. OT Paula maneuvered the wheelchair into position so the patient could sit. He was assessed for injury which he denied. Gait Training Gait Activity WBQC Device Used WBQC on R UE Level of Assistance CGA to min A on LLE Surface ground level Comments Pt ambulated 50 feet using WBQC on the right CGA to min A and intermittent cues for terminal knee extension/ upright posture. PT-OP-R Modalities Start: 09/17/19 18:00 Freq: Status: Active Protocol: Document 10/10/19 13:45 HH (Rec: 10/10/19 16:17 HH [email or web address]) Hot Pack/Cold Pack Treatment moist heat Location L hip adductors Patient Position Hooklying Treatment Duration (minutes) 10 Patient Tolerance Good PT-OP-T Assessment and Plan Start: 09/17/19 18:00 Freq: Status: Active Protocol: Document 10/13/19 12:21 AW (Rec: 10/13/19 12:45 AW [email or web address]) Physical Therapy Assessment Goals Four Impairment Pt demonstrates strength impairment throughout left LE Chcf Goal (LTG) Pt to display MMT >3+/5 through L LE LTG Duration 11/18/19 Three Impairment Pt SBA for transfers and bed mobility d/t Left Neglect Corporate Administrator Goal (LTG) Pt to demonstrate independent transfers and bed mobility with an ability to address left LE and UE 80% of the time Two Impairment Pt ambulates 120' SBA with hemiwalker Short Term Goal (STG) Pt to ambulate 200' Independently with hemiwalker to improve independence at home and reduce reliance on his wheelchair STG Duration 10/18/19 Chcf Goal (LTG) Pt to ambulate 300' SBA /c SPC LTG Duration 11/18/19 One Impairment Pt does not have an appropriate home exercise program Short Term Goal (STG) Pt to be independent and compliant with an appropriate HEP STG Duration 10/18/19 Assessment Summary Assessment Pt and his note improved bed mobility. Pt had a fall during treatment today as he transferred to the right side from treatment table to transport wheelchair (see description under therapeutic activities). Following the fall, pt ambulated 50 feet with WBQC in the R UE CGA to min A with R LE exhibiting greater tendency to cross midline than left. Pt had improved ability to identify obstacles on his left side during gait training. Physical Therapy Plan Next Visit Focus/Plan Next Note Type Treatment Note Next Visit Plan reassess pt's symptoms Strengthening, gait training, balance training, NMR
--- NOTE | 2019-10-15 17:34 | PT.OTN ---
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) Physical Therapy Treatment Note PT-OP-A Visit Information Start: 09/17/19 18:00 Freq: Status: Active Protocol: Document 10/15/19 14:30 DCW (Rec: 10/15/19 17:34 DCW [id number]) Out-Patient Physical Therapy Visit Information Visit Information Visit Type Treatment Note Visit Start Time 14:30 Visit Stop Time 15:15 Total Visit Minutes 45 Visit Number 10 Number of CASINO HOST Visits 0 Evaluation Information Evaluation Date 09/17/19 PT-OP-B Current Condition Start: 09/17/19 18:00 Freq: Status: Active Protocol: Document 09/17/19 12:00 DCW (Rec: 09/18/19 10:29 DCW [id number]) Current Condition History of Current Condition Onset Date 04/14/19 Current Complaints Hemiparesis secondary to CVA History of Current Condition Pt is a 69 year old male presenting to skilled outpatient physical therapy with left-side neglect, hemiparesis, loss of independence, and difficulty walking following an intraparenchymal hemorrhage on 04/14/19. Pt was transferred from [facility] to [facility], where a craniotomy was performed on 04/16/19. Pt completed 7 weeks of rehab/ recovery at [facility], and then underwent a second surgery on 06/26/19 to replace the skull fragment. Pt was then at an acute rehab facility 06/30-07/18/19, and since then has been receiving home health physical therapy. Pt presents today with limited left-sided function, left visual and physical neglect, difficulty with transfers, decreased activity tolerance, decreased gait, and many other secondary effects following his CVA. Pt has been working on ambulation with a trent walker with home health, and his states he has walked around 100' a few times, but always with a therapist, as she does not feel comfortable walking with him yet. Pt exclusively gets around at time of evaluation in a manual wheelchair. Pt's transfers have been going fairly well, with his caregivers performing CGA, however pt will occasionally need assistance with placement of his left UE and LE due to neglect. Pt's biggest complaint at the moment is leg pain, his reports they have tried PT, Massage, CBD il, Tylenol, Oxycodine, and Gabapentin, all with minimal benefit. Prior to CVA, pt was fully independent in all activities. Pt and have garegivers 8 hrs a day for assistance. Prior Treatments and Tests Craniotomy 04/16/19, Acute rehab, Skull fragment replacement 06/26/19, home health PT Prior Functional Status Baseline Function- ADL's Independent Baseline Function- Mobility Independent PT-OP-C Subjective Start: 09/17/19 18:00 Freq: Status: Active Protocol: Document 10/15/19 14:30 DCW (Rec: 10/15/19 17:34 DCW [id number]) OP-PT Subjective Patient Comments Patient Comments Pt c/o L LE muscle soreness today, doesn't appear to be any worse than his usual complaint. Continues to feel like the rolling pin is helpful. PT and wide also arrive with a application trainer today, who will be working with him on his therapy off-days. PT-OP-G Mobility & Gait Start: 09/17/19 18:00 Freq: Status: Active Protocol: Document 09/17/19 12:00 DCW (Rec: 09/18/19 10:29 DCW [id number]) OP Mobility Evaluation Bed Mobility Rolling Rolling torso largely SBA, however requires Min A x1 for positioning of L UE secondary to neglect Supine to and from Sit SBA Transfers Sit to Stand SBA /c gait belt, occasional assistance required for positioning of left foot Bed to Chair Transfers Stand pivot transfer CGA /c gait belt when transfersing in both directions OP Gait Assessment Gait Gait Assistance Required: Contact Guard Assist Distance (Feet) 120 Able to Maintain Weight Bearing Status Yes During Gait Assistive Devices Assistive Device Gait Belt,Trent Walker Orthotic/Prosthetic Devices or Brace: No Gait Deviations General Gait Pattern Antalgic,Ataxic,Decreased Stride Length,Decreased Feet Clearance,Flexed Trunk,Lateral Trunk Lean,Step-to Gait Factors Limiting Gait Function Factors Limiting Gait Function Abnormal Tonal Influences, Decreased Activity Tolerance, Decreased Sensation,Decreased Strength,Incoordination,Poor Balance,Poor Safety Awareness PT-OP-H Neuro Start: 09/17/19 18:00 Freq: Status: Active Protocol: Document 09/17/19 12:00 DCW (Rec: 09/18/19 17:29 DCW [id number]) Sensation Evaluation Gross Sensation Gross Sensation Left UE Impaired,Left LE Impaired Sensation Description Paresthesia,Numbness,Burning, Heaviness,Pain Location Details Left Leg Light Touch Absent Sharp/Dull Absent Deep Pressure Impaired Proprioception (Position) Absent Kinesthesia (Movement) Impaired Deep Tendon Reflex & Clonus Assessment Deep Tendon Reflex Left Achilles Deep Tendon Reflex 3+ Normal But Brisk Left Patellar Deep Tendon Reflex 3+ Normal But Brisk Muscle Tone Tone Assessment Left Lower Extremity Flexor Tone Description Severe Hypotonicity PT-OP-M Strength Start: 09/17/19 18:00 Freq: Status: Active Protocol: Document 09/17/19 12:00 DCW (Rec: 09/18/19 17:29 DCW [id number]) Hip Strength Hip Manual Muscle Testing Right Flexion (L2) 4 Good Extension (S1) 4 Good Abduction 5 Normal Adduction 5 Normal External Rotation 5 Normal Internal Rotation 5 Normal Left Flexion (L2) 3 Fair Extension (S1) 2- Poor- Abduction 2+ Poor+ Adduction 3+ Fair+ External Rotation 3- Fair- Internal Rotation 2- Poor- Reason Not Measured Muscle Tone,Pain Knee Strength Knee Manual Muscle Testing Right Flexion (S2) 5 Normal Extension (L3) 5 Normal Left Flexion (S2) 3- Fair- Extension (L3) 3+ Fair+ Reason Not Measured Muscle Tone,Pain Ankle/Foot Strength Ankle and Foot Manual Muscle Testing Right Dorsiflexion (L4) 5 Normal Plantarflexion (S1) 5 Normal Left Dorsiflexion (L4) 4- Good- Plantarflexion (S1) 3+ Fair+ PT-OP-Q Treatments Start: 09/17/19 18:00 Freq: Status: Active Protocol: Document 10/15/19 14:30 DCW (Rec: 10/15/19 17:34 DCW [id number]) Cardio Equipment Recumbent Elliptical ([place]) Duration (Minutes) 5 Resistance 2 Seat Position 12 Therapeutic Exercises Supine Exercises Hamstring stretch Supine Exercise Name HS stretch SLR Supine Exercise Name SLR Side left Sidelying Exercises abduction Sidelying Exercise Name abduction Side left reverse clamshell Sidelying Exercise Name reverse clamshell Side left clamshell Sidelying Exercise Name clamshell Side left Reps/Minutes 12 reps - limited excursion Comments left hand gripping edge of mat for support Therapeutic Activity Therapeutic Activity 1 Name stand-pivot transfers to both sides Reps/Minutes 2 reps each direction Gait Training Gait Activity WBQC Device Used WBQC on R UE Level of Assistance CGA to min A on LLE Surface ground level Distance/Duration 100' Comments cues on avoiding scissoring gait. Manual Therapy Treatment Soft Tissue Mobilization L Psoas Body Location L Psoas Mobilization Type Strumming,Sustained Pressure PT-OP-R Modalities Start: 09/17/19 18:00 Freq: Status: Active Protocol: Document 10/10/19 13:45 HH (Rec: 10/10/19 16:17 HH [id number]) Hot Pack/Cold Pack Treatment moist heat Location L hip adductors Patient Position Hooklying Treatment Duration (minutes) 10 Patient Tolerance Good PT-OP-T Assessment and Plan Start: 09/17/19 18:00 Freq: Status: Active Protocol: Document 10/15/19 14:30 DCW (Rec: 10/15/19 17:34 DCW [id number]) Physical Therapy Assessment Goals Four Impairment Pt demonstrates strength impairment throughout left LE Tow Boat Captain Goal (LTG) Pt to display MMT >3+/5 through L LE LTG Duration 11/18/19 Three Impairment Pt SBA for transfers and bed mobility d/t Left Neglect Tow Boat Captain Goal (LTG) Pt to demonstrate independent transfers and bed mobility with an ability to address left LE and UE 80% of the time Two Impairment Pt ambulates 120' SBA with hemiwalker Short Term Goal (STG) Pt to ambulate 200' Independently with hemiwalker to improve independence at home and reduce reliance on his wheelchair STG Duration 10/18/19 Tow Boat Captain Goal (LTG) Pt to ambulate 300' SBA /c SPC LTG Duration 11/18/19 One Impairment Pt does not have an appropriate home exercise program Short Term Goal (STG) Pt to be independent and compliant with an appropriate HEP STG Duration 10/18/19 Assessment Summary Assessment Pt improving ability to advance left leg during gait. Pt also now able to perform a SLR and a side-lying SLR in abduction, which he was unable to do two weeks ago. Physical Therapy Plan Frequency and Duration Frequency of Treatment 2x/Week Duration of Treatment 12 weeks Plan of Care Start Date 09/17/19 Plan of Care End Date 12/10/19 Therapeutic Interventions Therapeutic Interventions Aquatic Therapy,Balance Training,Coordination Training ,Gait Training,Home Exercise Program,Manual Therapy, Neuromuscular Re-education, Patient/Caregiver Education, Self-Care/Home Management, Therapeutic Activities, Therapeutic Exercises Modalities Cold Pack/Ice Massage,Electric Stimulation,Hot Packs, Ultrasound Next Visit Focus/Plan Next Note Type Treatment Note Next Visit Plan reassess pt's symptoms Strengthening, gait training, balance training, NMR
--- NOTE | 2019-10-20 16:31 | PT.OTN ---
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) Physical Therapy Treatment Note PT-OP-A Visit Information Start: 09/17/19 18:00 Freq: Status: Active Protocol: Document 10/20/19 16:17 SAK (Rec: 10/20/19 16:23 SAK [id number]) Out-Patient Physical Therapy Visit Information Visit Information Visit Type Treatment Note Visit Start Time 14:30 Visit Stop Time 15:15 Total Visit Minutes 45 Visit Number 10 Number of NATIONAL EXPANSION RECRUITER Visits 0 Evaluation Information Evaluation Date 09/17/19 PT-OP-B Current Condition Start: 09/17/19 18:00 Freq: Status: Active Protocol: Document 09/17/19 12:00 DCW (Rec: 09/18/19 10:29 DCW [id number]) Current Condition History of Current Condition Onset Date 04/14/19 Current Complaints Hemiparesis secondary to CVA History of Current Condition Pt is a 69 year old male presenting to skilled outpatient physical therapy with left-side neglect, hemiparesis, loss of independence, and difficulty walking following an intraparenchymal hemorrhage on 04/14/19. Pt was transferred from [facility] to [facility], where a craniotomy was performed on 04/16/19. Pt completed 7 weeks of rehab/ recovery at [facility], and then underwent a second surgery on 06/26/19 to replace the skull fragment. Pt was then at an acute rehab facility 06/30-07/18/19, and since then has been receiving home health physical therapy. Pt presents today with limited left-sided function, left visual and physical neglect, difficulty with transfers, decreased activity tolerance, decreased gait, and many other secondary effects following his CVA. Pt has been working on ambulation with a trent walker with home health, and his states he has walked around 100' a few times, but always with a therapist, as she does not feel comfortable walking with him yet. Pt exclusively gets around at time of evaluation in a manual wheelchair. Pt's transfers have been going fairly well, with his caregivers performing CGA, however pt will occasionally need assistance with placement of his left UE and LE due to neglect. Pt's biggest complaint at the moment is leg pain, his reports they have tried PT, Massage, CBD il, Tylenol, Oxycodine, and Gabapentin, all with minimal benefit. Prior to CVA, pt was fully independent in all activities. Pt and have garegivers 8 hrs a day for assistance. Prior Treatments and Tests Craniotomy 04/16/19, Acute rehab, Skull fragment replacement 06/26/19, home health PT Prior Functional Status Baseline Function- ADL's Independent Baseline Function- Mobility Independent PT-OP-C Subjective Start: 09/17/19 18:00 Freq: Status: Active Protocol: Document 10/20/19 16:17 SAK (Rec: 10/20/19 16:23 SAK [id number]) OP-PT Subjective Patient Comments Patient Comments C/o left LE soreness. Eager to try aquatic therapy. PT-OP-G Mobility & Gait Start: 09/17/19 18:00 Freq: Status: Active Protocol: Document 09/17/19 12:00 DCW (Rec: 09/18/19 10:29 DCW [id number]) OP Mobility Evaluation Bed Mobility Rolling Rolling torso largely SBA, however requires Min A x1 for positioning of L UE secondary to neglect Supine to and from Sit SBA Transfers Sit to Stand SBA /c gait belt, occasional assistance required for positioning of left foot Bed to Chair Transfers Stand pivot transfer CGA /c gait belt when transfersing in both directions OP Gait Assessment Gait Gait Assistance Required: Contact Guard Assist Distance (Feet) 120 Able to Maintain Weight Bearing Status Yes During Gait Assistive Devices Assistive Device Gait Belt,Trent Walker Orthotic/Prosthetic Devices or Brace: No Gait Deviations General Gait Pattern Antalgic,Ataxic,Decreased Stride Length,Decreased Feet Clearance,Flexed Trunk,Lateral Trunk Lean,Step-to Gait Factors Limiting Gait Function Factors Limiting Gait Function Abnormal Tonal Influences, Decreased Activity Tolerance, Decreased Sensation,Decreased Strength,Incoordination,Poor Balance,Poor Safety Awareness PT-OP-H Neuro Start: 09/17/19 18:00 Freq: Status: Active Protocol: Document 09/17/19 12:00 DCW (Rec: 09/18/19 17:29 DCW [id number]) Sensation Evaluation Gross Sensation Gross Sensation Left UE Impaired,Left LE Impaired Sensation Description Paresthesia,Numbness,Burning, Heaviness,Pain Location Details Left Leg Light Touch Absent Sharp/Dull Absent Deep Pressure Impaired Proprioception (Position) Absent Kinesthesia (Movement) Impaired Deep Tendon Reflex & Clonus Assessment Deep Tendon Reflex Left Achilles Deep Tendon Reflex 3+ Normal But Brisk Left Patellar Deep Tendon Reflex 3+ Normal But Brisk Muscle Tone Tone Assessment Left Lower Extremity Flexor Tone Description Severe Hypotonicity PT-OP-M Strength Start: 09/17/19 18:00 Freq: Status: Active Protocol: Document 09/17/19 12:00 DCW (Rec: 09/18/19 17:29 DCW [id number]) Hip Strength Hip Manual Muscle Testing Right Flexion (L2) 4 Good Extension (S1) 4 Good Abduction 5 Normal Adduction 5 Normal External Rotation 5 Normal Internal Rotation 5 Normal Left Flexion (L2) 3 Fair Extension (S1) 2- Poor- Abduction 2+ Poor+ Adduction 3+ Fair+ External Rotation 3- Fair- Internal Rotation 2- Poor- Reason Not Measured Muscle Tone,Pain Knee Strength Knee Manual Muscle Testing Right Flexion (S2) 5 Normal Extension (L3) 5 Normal Left Flexion (S2) 3- Fair- Extension (L3) 3+ Fair+ Reason Not Measured Muscle Tone,Pain Ankle/Foot Strength Ankle and Foot Manual Muscle Testing Right Dorsiflexion (L4) 5 Normal Plantarflexion (S1) 5 Normal Left Dorsiflexion (L4) 4- Good- Plantarflexion (S1) 3+ Fair+ PT-OP-Q Treatments Start: 09/17/19 18:00 Freq: Status: Active Protocol: Document 10/15/19 14:30 DCW (Rec: 10/15/19 17:34 DCW [id number]) Cardio Equipment Recumbent Elliptical ([place]) Duration (Minutes) 5 Resistance 2 Seat Position 12 Therapeutic Exercises Supine Exercises Hamstring stretch Supine Exercise Name HS stretch SLR Supine Exercise Name SLR Side left Sidelying Exercises abduction Sidelying Exercise Name abduction Side left reverse clamshell Sidelying Exercise Name reverse clamshell Side left clamshell Sidelying Exercise Name clamshell Side left Reps/Minutes 12 reps - limited excursion Comments left hand gripping edge of mat for support Therapeutic Activity Therapeutic Activity 1 Name stand-pivot transfers to both sides Reps/Minutes 2 reps each direction Gait Training Gait Activity WBQC Device Used WBQC on R UE Level of Assistance CGA to min A on LLE Surface ground level Distance/Duration 100' Comments cues on avoiding scissoring gait. Manual Therapy Treatment Soft Tissue Mobilization L Psoas Body Location L Psoas Mobilization Type Strumming,Sustained Pressure PT-OP-R Modalities Start: 09/17/19 18:00 Freq: Status: Active Protocol: Document 10/10/19 13:45 HH (Rec: 10/10/19 16:17 HH [id number]) Hot Pack/Cold Pack Treatment moist heat Location L hip adductors Patient Position Hooklying Treatment Duration (minutes) 10 Patient Tolerance Good PT-OP-S Aquatic Treatment Start: 09/17/19 18:00 Freq: Status: Active Protocol: Document 10/20/19 16:17 SAK (Rec: 10/20/19 16:31 SAK [id number]) Aquatics Treatment Pool Entry/Exit Pool Entry/Exit Method Lift Assistance Minimal Assistance,Moderate Assistance Comments min A transfering to right onto pool lift, mod A lift to w/c left Water Walking Sideways Water Level Chest Level Level of Assistance Minimal Assistance,Moderate Assistance Comments nathan benton float Forwards Water Level Chest Level Level of Assistance Contact Guard Assistance, Minimal Assistance,Moderate Assistance Comments variable physical A, trial different floats: iain gutierrez , [place] float Lower Extremity Exercises squats Body Position Standing Water Level Chest Level Reps/Duration 10x Comments holding pool edge Upper Extremity Exercises push/pull Body Position Standing Water Level Chest Level Reps/Duration 2 min Comments joanna benton assist for bal upper trunk rotation Body Position Standing Water Level Chest Level Reps/Duration 2 min Comments joanna benton assit for bal breastroke UE's Body Position Standing Water Level Chest Level Reps/Duration 2 min Comments mod assist for bal hor ab/ad Body Position Standing Water Level Chest Level Reps/Duration 2 min Comments mod assist for bal Balance standing bal Body Position Standing Water Level Waist Level Comments CG to mod assist Sylmar Activities Sylmar Activities Bicycle Equipment [place] float, small ankle floats on arms, 3# each LE Swim Strokes Flutter Other Equipment Used [place] float, physical assist for supine positioning Laps/Duration 5 min PT-OP-T Assessment and Plan Start: 09/17/19 18:00 Freq: Status: Active Protocol: Document 10/20/19 16:17 ALTA (Rec: 10/20/19 16:23 ALTA [id number]) Physical Therapy Assessment Goals Four Impairment Pt demonstrates strength impairment throughout left LE Half-Way Goal (LTG) Pt to display MMT >3+/5 through L LE LTG Duration 11/18/19 Three Impairment Pt SBA for transfers and bed mobility d/t Left Neglect Half-Way Goal (LTG) Pt to demonstrate independent transfers and bed mobility with an ability to address left LE and UE 80% of the time Two Impairment Pt ambulates 120' SBA with hemiwalker Short Term Goal (STG) Pt to ambulate 200' Independently with hemiwalker to improve independence at home and reduce reliance on his wheelchair STG Duration 10/18/19 Child Care Centre Manager Goal (LTG) Pt to ambulate 300' SBA /c SPC LTG Duration 11/18/19 One Impairment Pt does not have an appropriate home exercise program Short Term Goal (STG) Pt to be independent and compliant with an appropriate HEP STG Duration 10/18/19 Assessment Summary Assessment Patient c/o cold temperature in pool, appeared to improve in tolerance throughout session. Discussed with patient and possibly obtaining rash guard shirt for improved warmth in pool. Patient needed verbal and manual cues and CG to mod assist for balance correction; frequent LOB with neglect of left side interfering. Cues required for attending to left side. Physical Therapy Plan Frequency and Duration Frequency of Treatment 2x/Week Duration of Treatment 12 weeks Plan of Care Start Date 09/17/19 Plan of Care End Date 12/10/19 Therapeutic Interventions Therapeutic Interventions Aquatic Therapy,Balance Training,Coordination Training ,Gait Training,Home Exercise Program,Manual Therapy, Neuromuscular Re-education, Patient/Caregiver Education, Self-Care/Home Management, Therapeutic Activities, Therapeutic Exercises Modalities Cold Pack/Ice Massage,Electric Stimulation,Hot Packs, Ultrasound Next Visit Focus/Plan Next Note Type Treatment Note Next Visit Plan reassess pt's symptoms Strengthening, gait training, balance training, NMR
--- NOTE | 2019-10-20 16:37 | PT.OTN ---
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) Physical Therapy Treatment Note PT-OP-A Visit Information Start: 09/17/19 18:00 Freq: Status: Active Protocol: Document 10/20/19 16:17 SAK (Rec: 10/20/19 16:23 SAK [id number]) Out-Patient Physical Therapy Visit Information Visit Information Visit Type Treatment Note Visit Start Time 14:30 Visit Stop Time 15:15 Total Visit Minutes 45 Visit Number 10 Number of PRIMARY CARE COORDINATOR Visits 0 Evaluation Information Evaluation Date 09/17/19 PT-OP-B Current Condition Start: 09/17/19 18:00 Freq: Status: Active Protocol: Document 09/17/19 12:00 DCW (Rec: 09/18/19 10:29 DCW [id number]) Current Condition History of Current Condition Onset Date 04/14/19 Current Complaints Hemiparesis secondary to CVA History of Current Condition Pt is a 69 year old male presenting to skilled outpatient physical therapy with left-side neglect, hemiparesis, loss of independence, and difficulty walking following an intraparenchymal hemorrhage on 04/14/19. Pt was transferred from [facility] to [facility], where a craniotomy was performed on 04/16/19. Pt completed 7 weeks of rehab/ recovery at [facility], and then underwent a second surgery on 06/26/19 to replace the skull fragment. Pt was then at an acute rehab facility 06/30-07/18/19, and since then has been receiving home health physical therapy. Pt presents today with limited left-sided function, left visual and physical neglect, difficulty with transfers, decreased activity tolerance, decreased gait, and many other secondary effects following his CVA. Pt has been working on ambulation with a trent walker with home health, and his states he has walked around 100' a few times, but always with a therapist, as she does not feel comfortable walking with him yet. Pt exclusively gets around at time of evaluation in a manual wheelchair. Pt's transfers have been going fairly well, with his caregivers performing CGA, however pt will occasionally need assistance with placement of his left UE and LE due to neglect. Pt's biggest complaint at the moment is leg pain, his reports they have tried PT, Massage, CBD il, Tylenol, Oxycodine, and Gabapentin, all with minimal benefit. Prior to CVA, pt was fully independent in all activities. Pt and have garegivers 8 hrs a day for assistance. Prior Treatments and Tests Craniotomy 04/16/19, Acute rehab, Skull fragment replacement 06/26/19, home health PT Prior Functional Status Baseline Function- ADL's Independent Baseline Function- Mobility Independent PT-OP-C Subjective Start: 09/17/19 18:00 Freq: Status: Active Protocol: Document 10/20/19 16:17 SAK (Rec: 10/20/19 16:23 SAK [id number]) OP-PT Subjective Patient Comments Patient Comments C/o left LE soreness. Eager to try aquatic therapy. PT-OP-G Mobility & Gait Start: 09/17/19 18:00 Freq: Status: Active Protocol: Document 09/17/19 12:00 DCW (Rec: 09/18/19 10:29 DCW [id number]) OP Mobility Evaluation Bed Mobility Rolling Rolling torso largely SBA, however requires Min A x1 for positioning of L UE secondary to neglect Supine to and from Sit SBA Transfers Sit to Stand SBA /c gait belt, occasional assistance required for positioning of left foot Bed to Chair Transfers Stand pivot transfer CGA /c gait belt when transfersing in both directions OP Gait Assessment Gait Gait Assistance Required: Contact Guard Assist Distance (Feet) 120 Able to Maintain Weight Bearing Status Yes During Gait Assistive Devices Assistive Device Gait Belt,Trent Walker Orthotic/Prosthetic Devices or Brace: No Gait Deviations General Gait Pattern Antalgic,Ataxic,Decreased Stride Length,Decreased Feet Clearance,Flexed Trunk,Lateral Trunk Lean,Step-to Gait Factors Limiting Gait Function Factors Limiting Gait Function Abnormal Tonal Influences, Decreased Activity Tolerance, Decreased Sensation,Decreased Strength,Incoordination,Poor Balance,Poor Safety Awareness PT-OP-H Neuro Start: 09/17/19 18:00 Freq: Status: Active Protocol: Document 09/17/19 12:00 DCW (Rec: 09/18/19 17:29 DCW [id number]) Sensation Evaluation Gross Sensation Gross Sensation Left UE Impaired,Left LE Impaired Sensation Description Paresthesia,Numbness,Burning, Heaviness,Pain Location Details Left Leg Light Touch Absent Sharp/Dull Absent Deep Pressure Impaired Proprioception (Position) Absent Kinesthesia (Movement) Impaired Deep Tendon Reflex & Clonus Assessment Deep Tendon Reflex Left Achilles Deep Tendon Reflex 3+ Normal But Brisk Left Patellar Deep Tendon Reflex 3+ Normal But Brisk Muscle Tone Tone Assessment Left Lower Extremity Flexor Tone Description Severe Hypotonicity PT-OP-M Strength Start: 09/17/19 18:00 Freq: Status: Active Protocol: Document 09/17/19 12:00 DCW (Rec: 09/18/19 17:29 DCW [id number]) Hip Strength Hip Manual Muscle Testing Right Flexion (L2) 4 Good Extension (S1) 4 Good Abduction 5 Normal Adduction 5 Normal External Rotation 5 Normal Internal Rotation 5 Normal Left Flexion (L2) 3 Fair Extension (S1) 2- Poor- Abduction 2+ Poor+ Adduction 3+ Fair+ External Rotation 3- Fair- Internal Rotation 2- Poor- Reason Not Measured Muscle Tone,Pain Knee Strength Knee Manual Muscle Testing Right Flexion (S2) 5 Normal Extension (L3) 5 Normal Left Flexion (S2) 3- Fair- Extension (L3) 3+ Fair+ Reason Not Measured Muscle Tone,Pain Ankle/Foot Strength Ankle and Foot Manual Muscle Testing Right Dorsiflexion (L4) 5 Normal Plantarflexion (S1) 5 Normal Left Dorsiflexion (L4) 4- Good- Plantarflexion (S1) 3+ Fair+ PT-OP-Q Treatments Start: 09/17/19 18:00 Freq: Status: Active Protocol: Document 10/15/19 14:30 DCW (Rec: 10/15/19 17:34 DCW [id number]) Cardio Equipment Recumbent Elliptical ([email or web address]) Duration (Minutes) 5 Resistance 2 Seat Position 12 Therapeutic Exercises Supine Exercises Hamstring stretch Supine Exercise Name HS stretch SLR Supine Exercise Name SLR Side left Sidelying Exercises abduction Sidelying Exercise Name abduction Side left reverse clamshell Sidelying Exercise Name reverse clamshell Side left clamshell Sidelying Exercise Name clamshell Side left Reps/Minutes 12 reps - limited excursion Comments left hand gripping edge of mat for support Therapeutic Activity Therapeutic Activity 1 Name stand-pivot transfers to both sides Reps/Minutes 2 reps each direction Gait Training Gait Activity WBQC Device Used WBQC on R UE Level of Assistance CGA to min A on LLE Surface ground level Distance/Duration 100' Comments cues on avoiding scissoring gait. Manual Therapy Treatment Soft Tissue Mobilization L Psoas Body Location L Psoas Mobilization Type Strumming,Sustained Pressure PT-OP-R Modalities Start: 09/17/19 18:00 Freq: Status: Active Protocol: Document 10/10/19 13:45 HH (Rec: 10/10/19 16:17 HH [id number]) Hot Pack/Cold Pack Treatment moist heat Location L hip adductors Patient Position Hooklying Treatment Duration (minutes) 10 Patient Tolerance Good PT-OP-S Aquatic Treatment Start: 09/17/19 18:00 Freq: Status: Active Protocol: Document 10/20/19 16:17 SAK (Rec: 10/20/19 16:31 SAK [id number]) Aquatics Treatment Pool Entry/Exit Pool Entry/Exit Method Lift Assistance Minimal Assistance,Moderate Assistance Comments min A transfering to right onto pool lift, mod A lift to w/c left Water Walking Sideways Water Level Chest Level Level of Assistance Minimal Assistance,Moderate Assistance Comments nathan benton float Forwards Water Level Chest Level Level of Assistance Contact Guard Assistance, Minimal Assistance,Moderate Assistance Comments variable physical A, trial different floats: iain gutierrez , iroquois float Lower Extremity Exercises squats Body Position Standing Water Level Chest Level Reps/Duration 10x Comments holding pool edge Upper Extremity Exercises push/pull Body Position Standing Water Level Chest Level Reps/Duration 2 min Comments joanna benton assist for bal upper trunk rotation Body Position Standing Water Level Chest Level Reps/Duration 2 min Comments joanna benton assit for bal breastroke UE's Body Position Standing Water Level Chest Level Reps/Duration 2 min Comments mod assist for bal hor ab/ad Body Position Standing Water Level Chest Level Reps/Duration 2 min Comments mod assist for bal Balance standing bal Body Position Standing Water Level Waist Level Comments CG to mod assist Mims Activities Mims Activities Bicycle Equipment iroquois float, small ankle floats on arms, 3# each LE Swim Strokes Flutter Other Equipment Used iroquois float, physical assist for supine positioning Laps/Duration 5 min PT-OP-T Assessment and Plan Start: 09/17/19 18:00 Freq: Status: Active Protocol: Document 10/20/19 16:17 ALTA (Rec: 10/20/19 16:23 ALTA [id number]) Physical Therapy Assessment Goals Four Impairment Pt demonstrates strength impairment throughout left LE Fpc Goal (LTG) Pt to display MMT >3+/5 through L LE LTG Duration 11/18/19 Three Impairment Pt SBA for transfers and bed mobility d/t Left Neglect Fpc Goal (LTG) Pt to demonstrate independent transfers and bed mobility with an ability to address left LE and UE 80% of the time Two Impairment Pt ambulates 120' SBA with hemiwalker Short Term Goal (STG) Pt to ambulate 200' Independently with hemiwalker to improve independence at home and reduce reliance on his wheelchair STG Duration 10/18/19 Marking Machine Tender Goal (LTG) Pt to ambulate 300' SBA /c SPC LTG Duration 11/18/19 One Impairment Pt does not have an appropriate home exercise program Short Term Goal (STG) Pt to be independent and compliant with an appropriate HEP STG Duration 10/18/19 Assessment Summary Assessment Patient c/o cold temperature in pool, appeared to improve in tolerance throughout session. Discussed with patient and possibly obtaining rash guard shirt for improved warmth in pool. Patient needed verbal and manual cues and CG to mod assist for balance correction; frequent LOB with neglect of left side interfering. Cues required for attending to left side. Physical Therapy Plan Frequency and Duration Frequency of Treatment 2x/Week Duration of Treatment 12 weeks Plan of Care Start Date 09/17/19 Plan of Care End Date 12/10/19 Therapeutic Interventions Therapeutic Interventions Aquatic Therapy,Balance Training,Coordination Training ,Gait Training,Home Exercise Program,Manual Therapy, Neuromuscular Re-education, Patient/Caregiver Education, Self-Care/Home Management, Therapeutic Activities, Therapeutic Exercises Modalities Cold Pack/Ice Massage,Electric Stimulation,Hot Packs, Ultrasound Next Visit Focus/Plan Next Note Type Treatment Note Next Visit Plan reassess pt's symptoms Strengthening, gait training, balance training, NMR
--- NOTE | 2019-10-22 12:47 | PT.OTN ---
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) Physical Therapy Treatment Note PT-OP-A Visit Information Start: 09/17/19 18:00 Freq: Status: Active Protocol: Document 10/22/19 12:00 DCW (Rec: 10/22/19 12:47 DCW [id number]) Out-Patient Physical Therapy Visit Information Visit Information Visit Type Treatment Note Visit Start Time 12:00 Visit Stop Time 12:45 Total Visit Minutes 45 Visit Number 11 Number of HANDLE FINISHER Visits 0 Evaluation Information Evaluation Date 09/17/19 PT-OP-B Current Condition Start: 09/17/19 18:00 Freq: Status: Active Protocol: Document 09/17/19 12:00 DCW (Rec: 09/18/19 10:29 DCW [id number]) Current Condition History of Current Condition Onset Date 04/14/19 Current Complaints Hemiparesis secondary to CVA History of Current Condition Pt is a 69 year old male presenting to skilled outpatient physical therapy with left-side neglect, hemiparesis, loss of independence, and difficulty walking following an intraparenchymal hemorrhage on 04/14/19. Pt was transferred from to [facility], where a craniotomy was performed on 04/16/19. Pt completed 7 weeks of rehab/ recovery at [facility], and then underwent a second surgery on 06/26/19 to replace the skull fragment. Pt was then at an acute rehab facility 06/30-07/18/19, and since then has been receiving home health physical therapy. Pt presents today with limited left-sided function, left visual and physical neglect, difficulty with transfers, decreased activity tolerance, decreased gait, and many other secondary effects following his CVA. Pt has been working on ambulation with a trent walker with home health, and his states he has walked around 100' a few times, but always with a therapist, as she does not feel comfortable walking with him yet. Pt exclusively gets around at time of evaluation in a manual wheelchair. Pt's transfers have been going fairly well, with his caregivers performing CGA, however pt will occasionally need assistance with placement of his left UE and LE due to neglect. Pt's biggest complaint at the moment is leg pain, his reports they have tried PT, Massage, CBD il, Tylenol, Oxycodine, and Gabapentin, all with minimal benefit. Prior to CVA, pt was fully independent in all activities. Pt and have garegivers 8 hrs a day for assistance. Prior Treatments and Tests Craniotomy 04/16/19, Acute rehab, Skull fragment replacement 06/26/19, home health PT Prior Functional Status Baseline Function- ADL's Independent Baseline Function- Mobility Independent PT-OP-C Subjective Start: 09/17/19 18:00 Freq: Status: Active Protocol: Document 10/22/19 12:00 DCW (Rec: 10/22/19 12:47 DCW [id number]) OP-PT Subjective Patient Comments Patient Comments Pt reports he struggled with the pool due to the cold water , but felt the work he got out of it was worth it. PT-OP-G Mobility & Gait Start: 09/17/19 18:00 Freq: Status: Active Protocol: Document 09/17/19 12:00 DCW (Rec: 09/18/19 10:29 DCW [id number]) OP Mobility Evaluation Bed Mobility Rolling Rolling torso largely SBA, however requires Min A x1 for positioning of L UE secondary to neglect Supine to and from Sit SBA Transfers Sit to Stand SBA /c gait belt, occasional assistance required for positioning of left foot Bed to Chair Transfers Stand pivot transfer CGA /c gait belt when transfersing in both directions OP Gait Assessment Gait Gait Assistance Required: Contact Guard Assist Distance (Feet) 120 Able to Maintain Weight Bearing Status Yes During Gait Assistive Devices Assistive Device Gait Belt,Trent Walker Orthotic/Prosthetic Devices or Brace: No Gait Deviations General Gait Pattern Antalgic,Ataxic,Decreased Stride Length,Decreased Feet Clearance,Flexed Trunk,Lateral Trunk Lean,Step-to Gait Factors Limiting Gait Function Factors Limiting Gait Function Abnormal Tonal Influences, Decreased Activity Tolerance, Decreased Sensation,Decreased Strength,Incoordination,Poor Balance,Poor Safety Awareness PT-OP-H Neuro Start: 09/17/19 18:00 Freq: Status: Active Protocol: Document 09/17/19 12:00 DCW (Rec: 09/18/19 17:29 DCW [id number]) Sensation Evaluation Gross Sensation Gross Sensation Left UE Impaired,Left LE Impaired Sensation Description Paresthesia,Numbness,Burning, Heaviness,Pain Location Details Left Leg Light Touch Absent Sharp/Dull Absent Deep Pressure Impaired Proprioception (Position) Absent Kinesthesia (Movement) Impaired Deep Tendon Reflex & Clonus Assessment Deep Tendon Reflex Left Achilles Deep Tendon Reflex 3+ Normal But Brisk Left Patellar Deep Tendon Reflex 3+ Normal But Brisk Muscle Tone Tone Assessment Left Lower Extremity Flexor Tone Description Severe Hypotonicity PT-OP-M Strength Start: 09/17/19 18:00 Freq: Status: Active Protocol: Document 09/17/19 12:00 DCW (Rec: 09/18/19 17:29 DCW [id number]) Hip Strength Hip Manual Muscle Testing Right Flexion (L2) 4 Good Extension (S1) 4 Good Abduction 5 Normal Adduction 5 Normal External Rotation 5 Normal Internal Rotation 5 Normal Left Flexion (L2) 3 Fair Extension (S1) 2- Poor- Abduction 2+ Poor+ Adduction 3+ Fair+ External Rotation 3- Fair- Internal Rotation 2- Poor- Reason Not Measured Muscle Tone,Pain Knee Strength Knee Manual Muscle Testing Right Flexion (S2) 5 Normal Extension (L3) 5 Normal Left Flexion (S2) 3- Fair- Extension (L3) 3+ Fair+ Reason Not Measured Muscle Tone,Pain Ankle/Foot Strength Ankle and Foot Manual Muscle Testing Right Dorsiflexion (L4) 5 Normal Plantarflexion (S1) 5 Normal Left Dorsiflexion (L4) 4- Good- Plantarflexion (S1) 3+ Fair+ PT-OP-Q Treatments Start: 09/17/19 18:00 Freq: Status: Active Protocol: Document 10/22/19 12:00 DCW (Rec: 10/22/19 12:47 DCW [id number]) Cardio Equipment Recumbent Elliptical (B[place]) Duration (Minutes) 5 Resistance 2 Seat Position 12 Gym Equipment Shuttle Recovery Unilateral Heel Raises Details Left Resistance 12# Reps/Time Stopped d/t calf pain Unilateral Squats Details Left Resistance 37# Shuttle Recovery Platform Stable Therapeutic Exercises Sitting Exercises Plantarflexion Sitting Exercise Name Ankle plantarflexion Side left Resistance Lv 1 Equipment Used T-band Therapeutic Activity Therapeutic Activity 1 Name stand-pivot transfers to both sides Reps/Minutes 2 reps each direction Gait Training Gait Activity WBQC Device Used WBQC on R UE Level of Assistance CGA to min A on LLE Surface ground level Distance/Duration 190' Comments heel-toe on left foot PT-OP-R Modalities Start: 09/17/19 18:00 Freq: Status: Active Protocol: Document 10/10/19 13:45 HH (Rec: 10/10/19 16:17 HH [id number]) Hot Pack/Cold Pack Treatment moist heat Location L hip adductors Patient Position Hooklying Treatment Duration (minutes) 10 Patient Tolerance Good PT-OP-S Aquatic Treatment Start: 09/17/19 18:00 Freq: Status: Active Protocol: Document 10/20/19 16:17 SAK (Rec: 10/20/19 16:31 SAK [id number]) Aquatics Treatment Pool Entry/Exit Pool Entry/Exit Method Lift Assistance Minimal Assistance,Moderate Assistance Comments min A transfering to right onto pool lift, mod A lift to w/c left Water Walking Sideways Water Level Chest Level Level of Assistance Minimal Assistance,Moderate Assistance Comments long barbmaria de jesus, barrow float Forwards Water Level Chest Level Level of Assistance Contact Guard Assistance, Minimal Assistance,Moderate Assistance Comments variable physical A, trial different floats: long barbell , barrow float Lower Extremity Exercises squats Body Position Standing Water Level Chest Level Reps/Duration 10x Comments holding pool edge Upper Extremity Exercises push/pull Body Position Standing Water Level Chest Level Reps/Duration 2 min Comments iain gutierrez, mod assist for bal upper trunk rotation Body Position Standing Water Level Chest Level Reps/Duration 2 min Comments iain gutierrez mod assit for bal breastroke UE's Body Position Standing Water Level Chest Level Reps/Duration 2 min Comments mod assist for bal hor ab/ad Body Position Standing Water Level Chest Level Reps/Duration 2 min Comments mod assist for bal Balance standing bal Body Position Standing Water Level Waist Level Comments CG to mod assist [place] Activities [place] Activities Bicycle Equipment barrow float, small ankle floats on arms, 3# each LE Swim Strokes Flutter Other Equipment Used barrow float, physical assist for supine positioning Laps/Duration 5 min PT-OP-T Assessment and Plan Start: 09/17/19 18:00 Freq: Status: Active Protocol: Document 10/22/19 12:00 DCW (Rec: 10/22/19 12:47 DCW [id number]) Physical Therapy Assessment Goals Four Impairment Pt demonstrates strength impairment throughout left LE Master Control Supervisor Goal (LTG) Pt to display MMT >3+/5 through L LE LTG Duration 11/18/19 Three Impairment Pt SBA for transfers and bed mobility d/t Left Neglect Master Control Supervisor Goal (LTG) Pt to demonstrate independent transfers and bed mobility with an ability to address left LE and UE 80% of the time Two Impairment Pt ambulates 120' SBA with hemiwalker Short Term Goal (STG) Pt to ambulate 200' Independently with hemiwalker to improve independence at home and reduce reliance on his wheelchair STG Duration 10/18/19 Master Control Supervisor Goal (LTG) Pt to ambulate 300' SBA /c SPC LTG Duration 11/18/19 One Impairment Pt does not have an appropriate home exercise program Short Term Goal (STG) Pt to be independent and compliant with an appropriate HEP STG Duration 10/18/19 Assessment Summary Assessment Pt's recent complaints of leg pain appear to be associated with the dorsiflexed position his feet are in when sitting in the foot rests causing calf stretching. Pt did very well focusing on heel-toe pattern vs foot slap. Physical Therapy Plan Frequency and Duration Frequency of Treatment 2x/Week Duration of Treatment 12 weeks Plan of Care Start Date 09/17/19 Plan of Care End Date 12/10/19 Therapeutic Interventions Therapeutic Interventions Aquatic Therapy,Balance Training,Coordination Training ,Gait Training,Home Exercise Program,Manual Therapy, Neuromuscular Re-education, Patient/Caregiver Education, Self-Care/Home Management, Therapeutic Activities, Therapeutic Exercises Modalities Cold Pack/Ice Massage,Electric Stimulation,Hot Packs, Ultrasound Next Visit Focus/Plan Next Note Type Treatment Note Next Visit Plan reassess pt's symptoms Strengthening, gait training, balance training, NMR
--- NOTE | 2019-10-27 17:43 | PT.OTN ---
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) Physical Therapy Treatment Note PT-OP-A Visit Information Start: 09/17/19 18:00 Freq: Status: Active Protocol: Document 10/27/19 13:45 DCW (Rec: 10/27/19 17:43 DCW [id number]) Out-Patient Physical Therapy Visit Information Visit Information Visit Type Treatment Note Visit Start Time 13:45 Visit Stop Time 14:30 Total Visit Minutes 45 Visit Number 12 Number of AMERICAN HISTORY TEACHER Visits 0 Evaluation Information Evaluation Date 09/17/19 PT-OP-B Current Condition Start: 09/17/19 18:00 Freq: Status: Active Protocol: Document 09/17/19 12:00 DCW (Rec: 09/18/19 10:29 DCW [id number]) Current Condition History of Current Condition Onset Date 04/14/19 Current Complaints Hemiparesis secondary to CVA History of Current Condition Pt is a 69 year old male presenting to skilled outpatient physical therapy with left-side neglect, hemiparesis, loss of independence, and difficulty walking following an intraparenchymal hemorrhage on 04/14/19. Pt was transferred from [facility] to [facility], where a craniotomy was performed on 04/16/19. Pt completed 7 weeks of rehab/ recovery at [facility], and then underwent a second surgery on 06/26/19 to replace the skull fragment. Pt was then at an acute rehab facility 06/30-07/18/19, and since then has been receiving home health physical therapy. Pt presents today with limited left-sided function, left visual and physical neglect, difficulty with transfers, decreased activity tolerance, decreased gait, and many other secondary effects following his CVA. Pt has been working on ambulation with a trent walker with home health, and his states he has walked around 100' a few times, but always with a therapist, as she does not feel comfortable walking with him yet. Pt exclusively gets around at time of evaluation in a manual wheelchair. Pt's transfers have been going fairly well, with his caregivers performing CGA, however pt will occasionally need assistance with placement of his left UE and LE due to neglect. Pt's biggest complaint at the moment is leg pain, his reports they have tried PT, Massage, CBD il, Tylenol, Oxycodine, and Gabapentin, all with minimal benefit. Prior to CVA, pt was fully independent in all activities. Pt and have garegivers 8 hrs a day for assistance. Prior Treatments and Tests Craniotomy 04/16/19, Acute rehab, Skull fragment replacement 06/26/19, home health PT Prior Functional Status Baseline Function- ADL's Independent Baseline Function- Mobility Independent PT-OP-C Subjective Start: 09/17/19 18:00 Freq: Status: Active Protocol: Document 10/27/19 13:45 DCW (Rec: 10/27/19 17:43 DCW [id number]) OP-PT Subjective Patient Comments Patient Comments Pt reports he is feeling good today, ready to get to work. PT-OP-G Mobility & Gait Start: 09/17/19 18:00 Freq: Status: Active Protocol: Document 09/17/19 12:00 DCW (Rec: 09/18/19 10:29 DCW [id number]) OP Mobility Evaluation Bed Mobility Rolling Rolling torso largely SBA, however requires Min A x1 for positioning of L UE secondary to neglect Supine to and from Sit SBA Transfers Sit to Stand SBA /c gait belt, occasional assistance required for positioning of left foot Bed to Chair Transfers Stand pivot transfer CGA /c gait belt when transfersing in both directions OP Gait Assessment Gait Gait Assistance Required: Contact Guard Assist Distance (Feet) 120 Able to Maintain Weight Bearing Status Yes During Gait Assistive Devices Assistive Device Gait Belt,Trent Walker Orthotic/Prosthetic Devices or Brace: No Gait Deviations General Gait Pattern Antalgic,Ataxic,Decreased Stride Length,Decreased Feet Clearance,Flexed Trunk,Lateral Trunk Lean,Step-to Gait Factors Limiting Gait Function Factors Limiting Gait Function Abnormal Tonal Influences, Decreased Activity Tolerance, Decreased Sensation,Decreased Strength,Incoordination,Poor Balance,Poor Safety Awareness PT-OP-H Neuro Start: 09/17/19 18:00 Freq: Status: Active Protocol: Document 09/17/19 12:00 DCW (Rec: 09/18/19 17:29 DCW [id number]) Sensation Evaluation Gross Sensation Gross Sensation Left UE Impaired,Left LE Impaired Sensation Description Paresthesia,Numbness,Burning, Heaviness,Pain Location Details Left Leg Light Touch Absent Sharp/Dull Absent Deep Pressure Impaired Proprioception (Position) Absent Kinesthesia (Movement) Impaired Deep Tendon Reflex & Clonus Assessment Deep Tendon Reflex Left Achilles Deep Tendon Reflex 3+ Normal But Brisk Left Patellar Deep Tendon Reflex 3+ Normal But Brisk Muscle Tone Tone Assessment Left Lower Extremity Flexor Tone Description Severe Hypotonicity PT-OP-M Strength Start: 09/17/19 18:00 Freq: Status: Active Protocol: Document 09/17/19 12:00 DCW (Rec: 09/18/19 17:29 DCW [id number]) Hip Strength Hip Manual Muscle Testing Right Flexion (L2) 4 Good Extension (S1) 4 Good Abduction 5 Normal Adduction 5 Normal External Rotation 5 Normal Internal Rotation 5 Normal Left Flexion (L2) 3 Fair Extension (S1) 2- Poor- Abduction 2+ Poor+ Adduction 3+ Fair+ External Rotation 3- Fair- Internal Rotation 2- Poor- Reason Not Measured Muscle Tone,Pain Knee Strength Knee Manual Muscle Testing Right Flexion (S2) 5 Normal Extension (L3) 5 Normal Left Flexion (S2) 3- Fair- Extension (L3) 3+ Fair+ Reason Not Measured Muscle Tone,Pain Ankle/Foot Strength Ankle and Foot Manual Muscle Testing Right Dorsiflexion (L4) 5 Normal Plantarflexion (S1) 5 Normal Left Dorsiflexion (L4) 4- Good- Plantarflexion (S1) 3+ Fair+ PT-OP-Q Treatments Start: 09/17/19 18:00 Freq: Status: Active Protocol: Document 10/27/19 13:45 DCW (Rec: 10/27/19 17:43 DCW [id number]) Cardio Equipment Recumbent Elliptical (Biodex) Duration (Minutes) 5 Resistance 2 Seat Position 12 Gym Equipment Shuttle Recovery Unilateral Heel Raises Details Left Resistance 12# Unilateral Squats Details Left Resistance 37# Shuttle Recovery Platform Stable Therapeutic Exercises Sitting Exercises Lateral trunk flexion Sitting Exercise Name Lateral trunk flexion Lumbar Flexion Sitting Exercise Name Seated lumbar flexion Plantarflexion Sitting Exercise Name Ankle plantarflexion Side left Resistance Lv 2 Equipment Used T-band Therapeutic Activity Therapeutic Activity 1 Name stand-pivot transfers to both sides Reps/Minutes 2 reps each direction Gait Training Gait Activity WBQC Device Used WBQC on R UE Level of Assistance CGA to min A on LLE Surface ground level Distance/Duration 380' Comments heel-toe on left foot PT-OP-R Modalities Start: 09/17/19 18:00 Freq: Status: Active Protocol: Document 10/10/19 13:45 HH (Rec: 10/10/19 16:17 HH [id number]) Hot Pack/Cold Pack Treatment moist heat Location L hip adductors Patient Position Hooklying Treatment Duration (minutes) 10 Patient Tolerance Good PT-OP-S Aquatic Treatment Start: 09/17/19 18:00 Freq: Status: Active Protocol: Document 10/20/19 16:17 SAK (Rec: 10/20/19 16:31 SAK [id number]) Aquatics Treatment Pool Entry/Exit Pool Entry/Exit Method Lift Assistance Minimal Assistance,Moderate Assistance Comments min A transfering to right onto pool lift, mod A lift to w/c left Water Walking Sideways Water Level Chest Level Level of Assistance Minimal Assistance,Moderate Assistance Comments iain gutierrez in[place] float Forwards Water Level Chest Level Level of Assistance Contact Guard Assistance, Minimal Assistance,Moderate Assistance Comments variable physical A, trial different floats: iain gutierrez , [place] float Lower Extremity Exercises squats Body Position Standing Water Level Chest Level Reps/Duration 10x Comments holding pool edge Upper Extremity Exercises push/pull Body Position Standing Water Level Chest Level Reps/Duration 2 min Comments joanna benton assist for bal upper trunk rotation Body Position Standing Water Level Chest Level Reps/Duration 2 min Comments joanna benton assit for bal breastroke UE's Body Position Standing Water Level Chest Level Reps/Duration 2 min Comments mod assist for bal hor ab/ad Body Position Standing Water Level Chest Level Reps/Duration 2 min Comments mod assist for bal Balance standing bal Body Position Standing Water Level Waist Level Comments CG to mod assist [place] Activities [place] Activities Bicycle Equipment [place] float, small ankle floats on arms, 3# each LE Swim Strokes Flutter Other Equipment Used [place] float, physical assist for supine positioning Laps/Duration 5 min PT-OP-T Assessment and Plan Start: 09/17/19 18:00 Freq: Status: Active Protocol: Document 10/27/19 13:45 DCW (Rec: 10/27/19 17:43 DCW [id number]) Physical Therapy Assessment Goals Four Impairment Pt demonstrates strength impairment throughout left LE Assisted Goal (LTG) Pt to display MMT >3+/5 through L LE LTG Duration 11/18/19 Three Impairment Pt SBA for transfers and bed mobility d/t Left Neglect Cost Control Supervisor Goal (LTG) Pt to demonstrate independent transfers and bed mobility with an ability to address left LE and UE 80% of the time Two Impairment Pt ambulates 120' SBA with hemiwalker Short Term Goal (STG) Pt to ambulate 200' Independently with hemiwalker to improve independence at home and reduce reliance on his wheelchair STG Duration 10/18/19 Assisted Goal (LTG) Pt to ambulate 300' SBA /c SPC LTG Duration 11/18/19 One Impairment Pt does not have an appropriate home exercise program Short Term Goal (STG) Pt to be independent and compliant with an appropriate HEP STG Duration 10/18/19 Assessment Summary Assessment Pt continues to do well with heel-toe gait pattern, and increased total distance at one time from 190' to 380'. Improving activity tolerance, gait technique, and LE strength. Physical Therapy Plan Frequency and Duration Frequency of Treatment 2x/Week Duration of Treatment 12 weeks Plan of Care Start Date 09/17/19 Plan of Care End Date 12/10/19 Therapeutic Interventions Therapeutic Interventions Aquatic Therapy,Balance Training,Coordination Training ,Gait Training,Home Exercise Program,Manual Therapy, Neuromuscular Re-education, Patient/Caregiver Education, Self-Care/Home Management, Therapeutic Activities, Therapeutic Exercises Modalities Cold Pack/Ice Massage,Electric Stimulation,Hot Packs, Ultrasound Next Visit Focus/Plan Next Note Type Treatment Note Next Visit Plan reassess pt's symptoms Strengthening, gait training, balance training, NMR
--- NOTE | 2019-10-31 14:01 | PT.OTN ---
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) Physical Therapy Treatment Note PT-OP-A Visit Information Start: 09/17/19 18:00 Freq: Status: Active Protocol: Document 10/31/19 11:45 LJ (Rec: 10/31/19 14:01 LJ [id number]) Out-Patient Physical Therapy Visit Information Visit Information Visit Type Aquatic Treatment Note Visit Start Time 11:45 Visit Stop Time 12:30 Total Visit Minutes 45 Visit Number 13 Number of HISTOLOGIST TECHNOLOGIST Visits 1 PT-OP-B Current Condition Start: 09/17/19 18:00 Freq: Status: Active Protocol: Document 09/17/19 12:00 DCW (Rec: 09/18/19 10:29 DCW [id number]) Current Condition History of Current Condition Onset Date 04/14/19 Current Complaints Hemiparesis secondary to CVA History of Current Condition Pt is a 69 year old male presenting to skilled outpatient physical therapy with left-side neglect, hemiparesis, loss of independence, and difficulty walking following an intraparenchymal hemorrhage on 04/14/19. Pt was transferred from [facility] to [facility], where a craniotomy was performed on 04/16/19. Pt completed 7 weeks of rehab/ recovery at [facility], and then underwent a second surgery on 06/26/19 to replace the skull fragment. Pt was then at an acute rehab facility 06/30-07/18/19, and since then has been receiving home health physical therapy. Pt presents today with limited left-sided function, left visual and physical neglect, difficulty with transfers, decreased activity tolerance, decreased gait, and many other secondary effects following his CVA. Pt has been working on ambulation with a trent walker with home health, and his states he has walked around 100' a few times, but always with a therapist, as she does not feel comfortable walking with him yet. Pt exclusively gets around at time of evaluation in a manual wheelchair. Pt's transfers have been going fairly well, with his caregivers performing CGA, however pt will occasionally need assistance with placement of his left UE and LE due to neglect. Pt's biggest complaint at the moment is leg pain, his reports they have tried PT, Massage, CBD il, Tylenol, Oxycodine, and Gabapentin, all with minimal benefit. Prior to CVA, pt was fully independent in all activities. Pt and have garegivers 8 hrs a day for assistance. Prior Treatments and Tests Craniotomy 04/16/19, Acute rehab, Skull fragment replacement 06/26/19, home health PT Prior Functional Status Baseline Function- ADL's Independent Baseline Function- Mobility Independent PT-OP-C Subjective Start: 09/17/19 18:00 Freq: Status: Active Protocol: Document 10/31/19 11:45 LJ (Rec: 10/31/19 14:01 LJ [id number]) OP-PT Subjective Patient Comments Patient Comments Pt somewhat apprehensive about therapy due to temperature of water. States it was too cold for him last time. PT-OP-G Mobility & Gait Start: 09/17/19 18:00 Freq: Status: Active Protocol: Document 09/17/19 12:00 DCW (Rec: 09/18/19 10:29 DCW [id number]) OP Mobility Evaluation Bed Mobility Rolling Rolling torso largely SBA, however requires Min A x1 for positioning of L UE secondary to neglect Supine to and from Sit SBA Transfers Sit to Stand SBA /c gait belt, occasional assistance required for positioning of left foot Bed to Chair Transfers Stand pivot transfer CGA /c gait belt when transfersing in both directions OP Gait Assessment Gait Gait Assistance Required: Contact Guard Assist Distance (Feet) 120 Able to Maintain Weight Bearing Status Yes During Gait Assistive Devices Assistive Device Gait Belt,Trent Walker Orthotic/Prosthetic Devices or Brace: No Gait Deviations General Gait Pattern Antalgic,Ataxic,Decreased Stride Length,Decreased Feet Clearance,Flexed Trunk,Lateral Trunk Lean,Step-to Gait Factors Limiting Gait Function Factors Limiting Gait Function Abnormal Tonal Influences, Decreased Activity Tolerance, Decreased Sensation,Decreased Strength,Incoordination,Poor Balance,Poor Safety Awareness PT-OP-H Neuro Start: 09/17/19 18:00 Freq: Status: Active Protocol: Document 09/17/19 12:00 DCW (Rec: 09/18/19 17:29 DCW [id number]) Sensation Evaluation Gross Sensation Gross Sensation Left UE Impaired,Left LE Impaired Sensation Description Paresthesia,Numbness,Burning, Heaviness,Pain Location Details Left Leg Light Touch Absent Sharp/Dull Absent Deep Pressure Impaired Proprioception (Position) Absent Kinesthesia (Movement) Impaired Deep Tendon Reflex & Clonus Assessment Deep Tendon Reflex Left Achilles Deep Tendon Reflex 3+ Normal But Brisk Left Patellar Deep Tendon Reflex 3+ Normal But Brisk Muscle Tone Tone Assessment Left Lower Extremity Flexor Tone Description Severe Hypotonicity PT-OP-M Strength Start: 09/17/19 18:00 Freq: Status: Active Protocol: Document 09/17/19 12:00 DCW (Rec: 09/18/19 17:29 DCW [id number]) Hip Strength Hip Manual Muscle Testing Right Flexion (L2) 4 Good Extension (S1) 4 Good Abduction 5 Normal Adduction 5 Normal External Rotation 5 Normal Internal Rotation 5 Normal Left Flexion (L2) 3 Fair Extension (S1) 2- Poor- Abduction 2+ Poor+ Adduction 3+ Fair+ External Rotation 3- Fair- Internal Rotation 2- Poor- Reason Not Measured Muscle Tone,Pain Knee Strength Knee Manual Muscle Testing Right Flexion (S2) 5 Normal Extension (L3) 5 Normal Left Flexion (S2) 3- Fair- Extension (L3) 3+ Fair+ Reason Not Measured Muscle Tone,Pain Ankle/Foot Strength Ankle and Foot Manual Muscle Testing Right Dorsiflexion (L4) 5 Normal Plantarflexion (S1) 5 Normal Left Dorsiflexion (L4) 4- Good- Plantarflexion (S1) 3+ Fair+ PT-OP-Q Treatments Start: 09/17/19 18:00 Freq: Status: Active Protocol: Document 10/27/19 13:45 DCW (Rec: 10/27/19 17:43 DCW [id number]) Cardio Equipment Recumbent Elliptical (Biodex) Duration (Minutes) 5 Resistance 2 Seat Position 12 Gym Equipment Shuttle Recovery Unilateral Heel Raises Details Left Resistance 12# Unilateral Squats Details Left Resistance 37# Shuttle Recovery Platform Stable Therapeutic Exercises Sitting Exercises Lateral trunk flexion Sitting Exercise Name Lateral trunk flexion Lumbar Flexion Sitting Exercise Name Seated lumbar flexion Plantarflexion Sitting Exercise Name Ankle plantarflexion Side left Resistance Lv 2 Equipment Used T-band Therapeutic Activity Therapeutic Activity 1 Name stand-pivot transfers to both sides Reps/Minutes 2 reps each direction Gait Training Gait Activity WBQC Device Used WBQC on R UE Level of Assistance CGA to min A on LLE Surface ground level Distance/Duration 380' Comments heel-toe on left foot PT-OP-R Modalities Start: 09/17/19 18:00 Freq: Status: Active Protocol: Document 10/10/19 13:45 HH (Rec: 10/10/19 16:17 HH [id number]) Hot Pack/Cold Pack Treatment moist heat Location L hip adductors Patient Position Hooklying Treatment Duration (minutes) 10 Patient Tolerance Good PT-OP-S Aquatic Treatment Start: 09/17/19 18:00 Freq: Status: Active Protocol: Document 10/31/19 11:45 LJ (Rec: 10/31/19 14:01 LJ [id number]) Aquatics Treatment Pool Entry/Exit Pool Entry/Exit Method Lift Assistance Minimal Assistance,Moderate Assistance Comments min A transfering to right onto pool lift, mod A lift to w/c left Water Walking Sideways Water Level Chest Level Level of Assistance Minimal Assistance,Moderate Assistance Comments iain gutierrez, [place] float, wet vest Forwards Water Level Chest Level Walking Equipment wet vest Level of Assistance Contact Guard Assistance, Minimal Assistance,Moderate Assistance Lower Extremity Exercises hip extension Water Level Chest Level Equipment wet vest, blue float Reps/Duration 10x bilat HS curls Water Level Chest Level Equipment wet vest, blue float Reps/Duration 20 bilat Comments pt left hand hold on therapist arm marching at wall Water Level Chest Level Equipment wet vest, blue float Reps/Duration 1 min Comments pt left hand hold on therapist arm Upper Extremity Exercises push/pull Body Position Standing Water Level Chest Level Reps/Duration 2 min Comments joanna benton assist for bal upper trunk rotation Body Position Standing Water Level Chest Level Reps/Duration 2 min Comments joanna benton assit for bal breastroke UE's Body Position Standing Water Level Chest Level Reps/Duration 2 min Comments mod assist for bal hor ab/ad Body Position Standing Water Level Chest Level Reps/Duration 2 min Comments mod assist for bal Balance standing bal Body Position Standing Water Level Waist Level Comments CG to mod assist [place] Activities [place] Activities Bicycle Equipment wet vest,[place] float, small ankle floats on arms, 3# each LE Swim Strokes Flutter Other Equipment Used [place] float, physical assist for supine positioning Laps/Duration 5 min Other supine to standing Water Level Chest Level Equipment blue float, wet vest, Reps/Duration x5 Comments Bony with transition, ModA with stabilizing balance PT-OP-T Assessment and Plan Start: 09/17/19 18:00 Freq: Status: Active Protocol: Document 10/31/19 11:45 LJ (Rec: 10/31/19 14:01 LJ [id number]) Physical Therapy Assessment Rehab Potential Rehabilitation Potential Fair Evaluation Complexity Number of Personal Factors/Comorbidities 3 or More Number of Body Systems Impaired 4 or More Clinical Presentation at Evaluation Unstable Impairments Impairments Activity Tolerance,Balance, Coordination,Functional Activities,Functional Mobility ,Gait,Pain,ROM,Sensation, Strength,Tone,Transfers Goals Four Impairment Pt demonstrates strength impairment throughout left LE Pharmaceutical Physician Goal (LTG) Pt to display MMT >3+/5 through L LE LTG Duration 11/18/19 Three Impairment Pt SBA for transfers and bed mobility d/t Left Neglect Residential Goal (LTG) Pt to demonstrate independent transfers and bed mobility with an ability to address left LE and UE 80% of the time Two Impairment Pt ambulates 120' SBA with hemiwalker Short Term Goal (STG) Pt to ambulate 200' Independently with hemiwalker to improve independence at home and reduce reliance on his wheelchair STG Duration 10/18/19 Residential Goal (LTG) Pt to ambulate 300' SBA /c SPC LTG Duration 11/18/19 One Impairment Pt does not have an appropriate home exercise program Short Term Goal (STG) Pt to be independent and compliant with an appropriate HEP STG Duration 10/18/19 Assessment Summary Assessment Pt much more comfortable with wet vest this session. No c/o being cold. Pt requiring ModA for ambulation and CGA for static balance. Continues to require verbal and manual cueing for left-side neglect. Physical Therapy Plan Frequency and Duration Frequency of Treatment 2x/Week Duration of Treatment 12 weeks Plan of Care Start Date 09/17/19 Plan of Care End Date 12/10/19 Therapeutic Interventions Therapeutic Interventions Aquatic Therapy,Balance Training,Coordination Training ,Gait Training,Home Exercise Program,Manual Therapy, Neuromuscular Re-education, Patient/Caregiver Education, Self-Care/Home Management, Therapeutic Activities, Therapeutic Exercises Modalities Cold Pack/Ice Massage,Electric Stimulation,Hot Packs, Ultrasound Next Visit Focus/Plan Next Note Type Treatment Note Next Visit Plan Continue strengthening, balance and gait training with NMR
--- NOTE | 2019-11-03 15:30 | PT.OTN ---
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) Physical Therapy Treatment Note PT-OP-A Visit Information Start: 09/17/19 18:00 Freq: Status: Active Protocol: Document 11/03/19 13:45 DCW (Rec: 11/03/19 15:30 DCW [id number]) Out-Patient Physical Therapy Visit Information Visit Information Visit Type Treatment Note Visit Start Time 13:45 Visit Stop Time 14:30 Total Visit Minutes 45 Visit Number 12 Number of [employer] AGENT Visits 0 Evaluation Information Evaluation Date 09/17/19 PT-OP-B Current Condition Start: 09/17/19 18:00 Freq: Status: Active Protocol: Document 09/17/19 12:00 DCW (Rec: 09/18/19 10:29 DCW [id number]) Current Condition History of Current Condition Onset Date 04/14/19 Current Complaints Hemiparesis secondary to CVA History of Current Condition Pt is a 69 year old male presenting to skilled outpatient physical therapy with left-side neglect, hemiparesis, loss of independence, and difficulty walking following an intraparenchymal hemorrhage on 04/14/19. Pt was transferred from [facility] to [facility], where a craniotomy was performed on 04/16/19. Pt completed 7 weeks of rehab/ recovery at [facility], and then underwent a second surgery on 06/26/19 to replace the skull fragment. Pt was then at an acute rehab facility 06/30-07/18/19, and since then has been receiving home health physical therapy. Pt presents today with limited left-sided function, left visual and physical neglect, difficulty with transfers, decreased activity tolerance, decreased gait, and many other secondary effects following his CVA. Pt has been working on ambulation with a trent walker with home health, and his states he has walked around 100' a few times, but always with a therapist, as she does not feel comfortable walking with him yet. Pt exclusively gets around at time of evaluation in a manual wheelchair. Pt's transfers have been going fairly well, with his caregivers performing CGA, however pt will occasionally need assistance with placement of his left UE and LE due to neglect. Pt's biggest complaint at the moment is leg pain, his reports they have tried PT, Massage, CBD il, Tylenol, Oxycodine, and Gabapentin, all with minimal benefit. Prior to CVA, pt was fully independent in all activities. Pt and have garegivers 8 hrs a day for assistance. Prior Treatments and Tests Craniotomy 04/16/19, Acute rehab, Skull fragment replacement 06/26/19, home health PT Prior Functional Status Baseline Function- ADL's Independent Baseline Function- Mobility Independent PT-OP-C Subjective Start: 09/17/19 18:00 Freq: Status: Active Protocol: Document 11/03/19 13:45 DCW (Rec: 11/03/19 15:30 DCW [id number]) OP-PT Subjective Patient Comments Patient Comments Pt felt much better about his aquatic therapy on Sunday. Was able to better tolerate the temperature, and felt that he got a very good workout. PT-OP-G Mobility & Gait Start: 09/17/19 18:00 Freq: Status: Active Protocol: Document 09/17/19 12:00 DCW (Rec: 09/18/19 10:29 DCW [id number]) OP Mobility Evaluation Bed Mobility Rolling Rolling torso largely SBA, however requires Min A x1 for positioning of L UE secondary to neglect Supine to and from Sit SBA Transfers Sit to Stand SBA /c gait belt, occasional assistance required for positioning of left foot Bed to Chair Transfers Stand pivot transfer CGA /c gait belt when transfersing in both directions OP Gait Assessment Gait Gait Assistance Required: Contact Guard Assist Distance (Feet) 120 Able to Maintain Weight Bearing Status Yes During Gait Assistive Devices Assistive Device Gait Belt,Trent Walker Orthotic/Prosthetic Devices or Brace: No Gait Deviations General Gait Pattern Antalgic,Ataxic,Decreased Stride Length,Decreased Feet Clearance,Flexed Trunk,Lateral Trunk Lean,Step-to Gait Factors Limiting Gait Function Factors Limiting Gait Function Abnormal Tonal Influences, Decreased Activity Tolerance, Decreased Sensation,Decreased Strength,Incoordination,Poor Balance,Poor Safety Awareness PT-OP-H Neuro Start: 09/17/19 18:00 Freq: Status: Active Protocol: Document 09/17/19 12:00 DCW (Rec: 09/18/19 17:29 DCW [id number]) Sensation Evaluation Gross Sensation Gross Sensation Left UE Impaired,Left LE Impaired Sensation Description Paresthesia,Numbness,Burning, Heaviness,Pain Location Details Left Leg Light Touch Absent Sharp/Dull Absent Deep Pressure Impaired Proprioception (Position) Absent Kinesthesia (Movement) Impaired Deep Tendon Reflex & Clonus Assessment Deep Tendon Reflex Left Achilles Deep Tendon Reflex 3+ Normal But Brisk Left Patellar Deep Tendon Reflex 3+ Normal But Brisk Muscle Tone Tone Assessment Left Lower Extremity Flexor Tone Description Severe Hypotonicity PT-OP-M Strength Start: 09/17/19 18:00 Freq: Status: Active Protocol: Document 09/17/19 12:00 DCW (Rec: 09/18/19 17:29 DCW [id number]) Hip Strength Hip Manual Muscle Testing Right Flexion (L2) 4 Good Extension (S1) 4 Good Abduction 5 Normal Adduction 5 Normal External Rotation 5 Normal Internal Rotation 5 Normal Left Flexion (L2) 3 Fair Extension (S1) 2- Poor- Abduction 2+ Poor+ Adduction 3+ Fair+ External Rotation 3- Fair- Internal Rotation 2- Poor- Reason Not Measured Muscle Tone,Pain Knee Strength Knee Manual Muscle Testing Right Flexion (S2) 5 Normal Extension (L3) 5 Normal Left Flexion (S2) 3- Fair- Extension (L3) 3+ Fair+ Reason Not Measured Muscle Tone,Pain Ankle/Foot Strength Ankle and Foot Manual Muscle Testing Right Dorsiflexion (L4) 5 Normal Plantarflexion (S1) 5 Normal Left Dorsiflexion (L4) 4- Good- Plantarflexion (S1) 3+ Fair+ PT-OP-Q Treatments Start: 09/17/19 18:00 Freq: Status: Active Protocol: Document 11/03/19 13:45 DCW (Rec: 11/03/19 15:30 DCW [id number]) Cardio Equipment Recumbent Elliptical (Biodex) Duration (Minutes) 6 Resistance 2 Seat Position 12 Gym Equipment Shuttle Recovery Unilateral Heel Raises Details Left Resistance 12# Unilateral Squats Details Left Resistance 37# Shuttle Recovery Platform Stable Therapeutic Activity Therapeutic Activity 1 Name stand-pivot transfers to both sides Reps/Minutes 2 reps each direction Gait Training Gait Activity WBQC Device Used WBQC on R UE Level of Assistance CGA to min A on LLE Surface ground level Distance/Duration 190' Comments heel-toe on left foot, trial of AFO PT-OP-R Modalities Start: 09/17/19 18:00 Freq: Status: Active Protocol: Document 10/10/19 13:45 HH (Rec: 10/10/19 16:17 HH [id number]) Hot Pack/Cold Pack Treatment moist heat Location L hip adductors Patient Position Hooklying Treatment Duration (minutes) 10 Patient Tolerance Good PT-OP-S Aquatic Treatment Start: 09/17/19 18:00 Freq: Status: Active Protocol: Document 10/31/19 11:45 LJ (Rec: 10/31/19 14:01 LJ [id number]) Aquatics Treatment Pool Entry/Exit Pool Entry/Exit Method Lift Assistance Minimal Assistance,Moderate Assistance Comments min A transfering to right onto pool lift, mod A lift to w/c left Water Walking Sideways Water Level Chest Level Level of Assistance Minimal Assistance,Moderate Assistance Comments iain gutierrez, [place] float, wet vest Forwards Water Level Chest Level Walking Equipment wet vest Level of Assistance Contact Guard Assistance, Minimal Assistance,Moderate Assistance Lower Extremity Exercises hip extension Water Level Chest Level Equipment wet vest, blue float Reps/Duration 10x bilat HS curls Water Level Chest Level Equipment wet vest, blue float Reps/Duration 20 bilat Comments pt left hand hold on therapist arm marching at wall Water Level Chest Level Equipment wet vest, blue float Reps/Duration 1 min Comments pt left hand hold on therapist arm Upper Extremity Exercises push/pull Body Position Standing Water Level Chest Level Reps/Duration 2 min Comments joanna benton assist for bal upper trunk rotation Body Position Standing Water Level Chest Level Reps/Duration 2 min Comments joanna benton assit for bal breastroke UE's Body Position Standing Water Level Chest Level Reps/Duration 2 min Comments mod assist for bal hor ab/ad Body Position Standing Water Level Chest Level Reps/Duration 2 min Comments mod assist for bal Balance standing bal Body Position Standing Water Level Waist Level Comments CG to mod assist [place] Activities [place] Activities Bicycle Equipment wet vest,[place] float, small ankle floats on arms, 3# each LE Swim Strokes Flutter Other Equipment Used [place] float, physical assist for supine positioning Laps/Duration 5 min Other supine to standing Water Level Chest Level Equipment blue float, wet vest, Reps/Duration x5 Comments Bony with transition, ModA with stabilizing balance PT-OP-T Assessment and Plan Start: 09/17/19 18:00 Freq: Status: Active Protocol: Document 11/03/19 13:45 DCW (Rec: 11/03/19 15:30 DCW [id number]) Physical Therapy Assessment Impairments Impairments Activity Tolerance,Balance, Coordination,Functional Activities,Functional Mobility ,Gait,Pain,ROM,Sensation, Strength,Tone,Transfers Goals Four Impairment Pt demonstrates strength impairment throughout left LE Burner Hand Goal (LTG) Pt to display MMT >3+/5 through L LE LTG Duration 11/18/19 Three Impairment Pt SBA for transfers and bed mobility d/t Left Neglect Penitentiary Goal (LTG) Pt to demonstrate independent transfers and bed mobility with an ability to address left LE and UE 80% of the time Two Impairment Pt ambulates 120' SBA with hemiwalker Short Term Goal (STG) Pt to ambulate 200' Independently with hemiwalker to improve independence at home and reduce reliance on his wheelchair STG Duration 10/18/19 Burner Hand Goal (LTG) Pt to ambulate 300' SBA /c SPC LTG Duration 11/18/19 One Impairment Pt does not have an appropriate home exercise program Short Term Goal (STG) Pt to be independent and compliant with an appropriate HEP STG Duration 10/18/19 Assessment Summary Assessment Trial of AFO during ambulation today. Pt demonstrated small improvement on left limb advancement, but overall displayed minimal gains with use of AFO. Physical Therapy Plan Frequency and Duration Frequency of Treatment 2x/Week Duration of Treatment 12 weeks Plan of Care Start Date 09/17/19 Plan of Care End Date 12/10/19 Therapeutic Interventions Therapeutic Interventions Aquatic Therapy,Balance Training,Coordination Training ,Gait Training,Home Exercise Program,Manual Therapy, Neuromuscular Re-education, Patient/Caregiver Education, Self-Care/Home Management, Therapeutic Activities, Therapeutic Exercises Modalities Cold Pack/Ice Massage,Electric Stimulation,Hot Packs, Ultrasound Next Visit Focus/Plan Next Note Type Treatment Note Next Visit Plan Continue strengthening, balance and gait training with NMR
--- NOTE | 2019-11-07 16:29 | PT.OTN ---
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) Physical Therapy Treatment Note PT-OP-A Visit Information Start: 09/17/19 18:00 Freq: Status: Active Protocol: Document 11/07/19 11:45 LJ (Rec: 11/07/19 16:29 LJ [id number]) Out-Patient Physical Therapy Visit Information Visit Information Visit Type Aquatic Treatment Note Visit Start Time 11:45 Visit Stop Time 12:30 Total Visit Minutes 45 Visit Number 13 Number of PHILOSOPHY AND RELIGION INSTRUCTOR Visits 1 PT-OP-B Current Condition Start: 09/17/19 18:00 Freq: Status: Active Protocol: Document 09/17/19 12:00 DCW (Rec: 09/18/19 10:29 DCW [id number]) Current Condition History of Current Condition Onset Date 04/14/19 Current Complaints Hemiparesis secondary to CVA History of Current Condition Pt is a 69 year old male presenting to skilled outpatient physical therapy with left-side neglect, hemiparesis, loss of independence, and difficulty walking following an intraparenchymal hemorrhage on 04/14/19. Pt was transferred from [facility] to [facility], where a craniotomy was performed on 04/16/19. Pt completed 7 weeks of rehab/ recovery at [facility], and then underwent a second surgery on 06/26/19 to replace the skull fragment. Pt was then at an acute rehab facility 06/30-07/18/19, and since then has been receiving home health physical therapy. Pt presents today with limited left-sided function, left visual and physical neglect, difficulty with transfers, decreased activity tolerance, decreased gait, and many other secondary effects following his CVA. Pt has been working on ambulation with a trent walker with home health, and his states he has walked around 100' a few times, but always with a therapist, as she does not feel comfortable walking with him yet. Pt exclusively gets around at time of evaluation in a manual wheelchair. Pt's transfers have been going fairly well, with his caregivers performing CGA, however pt will occasionally need assistance with placement of his left UE and LE due to neglect. Pt's biggest complaint at the moment is leg pain, his reports they have tried PT, Massage, CBD il, Tylenol, Oxycodine, and Gabapentin, all with minimal benefit. Prior to CVA, pt was fully independent in all activities. Pt and have garegivers 8 hrs a day for assistance. Prior Treatments and Tests Craniotomy 04/16/19, Acute rehab, Skull fragment replacement 06/26/19, home health PT Prior Functional Status Baseline Function- ADL's Independent Baseline Function- Mobility Independent PT-OP-C Subjective Start: 09/17/19 18:00 Freq: Status: Active Protocol: Document 11/07/19 11:45 LJ (Rec: 11/07/19 16:29 LJ [id number]) OP-PT Subjective Patient Comments Patient Comments Pt happy to get back into the pool. Reports that he was much more comfortable last session wearing the wetvest. PT-OP-G Mobility & Gait Start: 09/17/19 18:00 Freq: Status: Active Protocol: Document 09/17/19 12:00 DCW (Rec: 09/18/19 10:29 DCW [id number]) OP Mobility Evaluation Bed Mobility Rolling Rolling torso largely SBA, however requires Min A x1 for positioning of L UE secondary to neglect Supine to and from Sit SBA Transfers Sit to Stand SBA /c gait belt, occasional assistance required for positioning of left foot Bed to Chair Transfers Stand pivot transfer CGA /c gait belt when transfersing in both directions OP Gait Assessment Gait Gait Assistance Required: Contact Guard Assist Distance (Feet) 120 Able to Maintain Weight Bearing Status Yes During Gait Assistive Devices Assistive Device Gait Belt,Trent Walker Orthotic/Prosthetic Devices or Brace: No Gait Deviations General Gait Pattern Antalgic,Ataxic,Decreased Stride Length,Decreased Feet Clearance,Flexed Trunk,Lateral Trunk Lean,Step-to Gait Factors Limiting Gait Function Factors Limiting Gait Function Abnormal Tonal Influences, Decreased Activity Tolerance, Decreased Sensation,Decreased Strength,Incoordination,Poor Balance,Poor Safety Awareness PT-OP-H Neuro Start: 09/17/19 18:00 Freq: Status: Active Protocol: Document 09/17/19 12:00 DCW (Rec: 09/18/19 17:29 DCW [id number]) Sensation Evaluation Gross Sensation Gross Sensation Left UE Impaired,Left LE Impaired Sensation Description Paresthesia,Numbness,Burning, Heaviness,Pain Location Details Left Leg Light Touch Absent Sharp/Dull Absent Deep Pressure Impaired Proprioception (Position) Absent Kinesthesia (Movement) Impaired Deep Tendon Reflex & Clonus Assessment Deep Tendon Reflex Left Achilles Deep Tendon Reflex 3+ Normal But Brisk Left Patellar Deep Tendon Reflex 3+ Normal But Brisk Muscle Tone Tone Assessment Left Lower Extremity Flexor Tone Description Severe Hypotonicity PT-OP-M Strength Start: 09/17/19 18:00 Freq: Status: Active Protocol: Document 09/17/19 12:00 DCW (Rec: 09/18/19 17:29 DCW [id number]) Hip Strength Hip Manual Muscle Testing Right Flexion (L2) 4 Good Extension (S1) 4 Good Abduction 5 Normal Adduction 5 Normal External Rotation 5 Normal Internal Rotation 5 Normal Left Flexion (L2) 3 Fair Extension (S1) 2- Poor- Abduction 2+ Poor+ Adduction 3+ Fair+ External Rotation 3- Fair- Internal Rotation 2- Poor- Reason Not Measured Muscle Tone,Pain Knee Strength Knee Manual Muscle Testing Right Flexion (S2) 5 Normal Extension (L3) 5 Normal Left Flexion (S2) 3- Fair- Extension (L3) 3+ Fair+ Reason Not Measured Muscle Tone,Pain Ankle/Foot Strength Ankle and Foot Manual Muscle Testing Right Dorsiflexion (L4) 5 Normal Plantarflexion (S1) 5 Normal Left Dorsiflexion (L4) 4- Good- Plantarflexion (S1) 3+ Fair+ PT-OP-Q Treatments Start: 09/17/19 18:00 Freq: Status: Active Protocol: Document 11/03/19 13:45 DCW (Rec: 11/03/19 15:30 DCW [id number]) Cardio Equipment Recumbent Elliptical (Biodex) Duration (Minutes) 6 Resistance 2 Seat Position 12 Gym Equipment Shuttle Recovery Unilateral Heel Raises Details Left Resistance 12# Unilateral Squats Details Left Resistance 37# Shuttle Recovery Platform Stable Therapeutic Activity Therapeutic Activity 1 Name stand-pivot transfers to both sides Reps/Minutes 2 reps each direction Gait Training Gait Activity WBQC Device Used WBQC on R UE Level of Assistance CGA to min A on LLE Surface ground level Distance/Duration 190' Comments heel-toe on left foot, trial of AFO PT-OP-R Modalities Start: 09/17/19 18:00 Freq: Status: Active Protocol: Document 10/10/19 13:45 HH (Rec: 10/10/19 16:17 HH [id number]) Hot Pack/Cold Pack Treatment moist heat Location L hip adductors Patient Position Hooklying Treatment Duration (minutes) 10 Patient Tolerance Good PT-OP-S Aquatic Treatment Start: 09/17/19 18:00 Freq: Status: Active Protocol: Document 11/07/19 11:45 LJ (Rec: 11/07/19 16:29 LJ [id number]) Aquatics Treatment Pool Entry/Exit Pool Entry/Exit Method Lift Assistance Minimal Assistance,Moderate Assistance Comments min A transfering to right onto pool lift, mod A lift to w/c left Water Walking Sideways Water Level Chest Level Level of Assistance Minimal Assistance,Moderate Assistance Comments [place] float, wet vest Forwards Water Level Chest Level Walking Equipment wet vest Level of Assistance Contact Guard Assistance, Minimal Assistance,Moderate Assistance Lower Extremity Exercises hip extension Water Level Chest Level Equipment wet vest, blue float Reps/Duration 10x bilat HS curls Water Level Chest Level Equipment wet vest, blue float Reps/Duration 20 bilat Comments pt left hand hold on therapist arm marching at wall Water Level Chest Level Equipment wet vest, blue float Reps/Duration 1 min Comments pt left hand hold on therapist arm Upper Extremity Exercises push/pull Body Position Standing Water Level Chest Level Reps/Duration 2 min Comments joanna benton assist for bal upper trunk rotation Body Position Standing Water Level Chest Level Reps/Duration 2 min Comments joanna benton assit for bal hor ab/ad Body Position Standing Water Level Chest Level Reps/Duration 2 min Comments mod assist for bal Balance standing bal Body Position Standing Water Level Waist Level Comments CG to mod assist [place] Activities [place] Activities Bicycle Equipment wet vest,[place] float, small ankle floats on arms, 3# each LE PT-OP-T Assessment and Plan Start: 09/17/19 18:00 Freq: Status: Active Protocol: Document 11/07/19 11:45 LJ (Rec: 11/07/19 16:29 LJ [id number]) Physical Therapy Assessment Rehab Potential Rehabilitation Potential Fair Evaluation Complexity Number of Personal Factors/Comorbidities 3 or More Number of Body Systems Impaired 4 or More Clinical Presentation at Evaluation Unstable Impairments Impairments Activity Tolerance,Balance, Coordination,Functional Activities,Functional Mobility ,Gait,Pain,ROM,Sensation, Strength,Tone,Transfers Goals Four Impairment Pt demonstrates strength impairment throughout left LE Locator Goal (LTG) Pt to display MMT >3+/5 through L LE LTG Duration 11/18/19 Three Impairment Pt SBA for transfers and bed mobility d/t Left Neglect Locator Goal (LTG) Pt to demonstrate independent transfers and bed mobility with an ability to address left LE and UE 80% of the time Two Impairment Pt ambulates 120' SBA with hemiwalker Short Term Goal (STG) Pt to ambulate 200' Independently with hemiwalker to improve independence at home and reduce reliance on his wheelchair STG Duration 10/18/19 Assisted Goal (LTG) Pt to ambulate 300' SBA /c SPC LTG Duration 11/18/19 One Impairment Pt does not have an appropriate home exercise program Short Term Goal (STG) Pt to be independent and compliant with an appropriate HEP STG Duration 10/18/19 Assessment Summary Assessment Pt showing some impulsiveness this session with walking. Continues needing cues for standing tall for walking activities. Prt c/o pin in left hand while holding noodle or lg float. Tolerated small BB in deep water. Pt slightly improved with standing balance using wetvest and blue float Physical Therapy Plan Frequency and Duration Frequency of Treatment 2x/Week Duration of Treatment 12 weeks Plan of Care Start Date 09/17/19 Plan of Care End Date 12/10/19 Therapeutic Interventions Therapeutic Interventions Aquatic Therapy,Balance Training,Coordination Training ,Gait Training,Home Exercise Program,Manual Therapy, Neuromuscular Re-education, Patient/Caregiver Education, Self-Care/Home Management, Therapeutic Activities, Therapeutic Exercises Modalities Cold Pack/Ice Massage,Electric Stimulation,Hot Packs, Ultrasound Next Visit Focus/Plan Next Note Type Treatment Note Next Visit Plan Continue strengthening, balance and gait training with NMR
--- NOTE | 2019-11-10 14:35 | PT.OTN ---
Current Diagnoses Nontraumatic intracerebral hemorrhage, unspecified (11/10/19) Hemiplegia and hemiparesis following cerebral infarction affecting left non-dominant side (11/10/19) Pain in left leg (11/10/19) Pain in left lower leg (11/10/19) Other abnormalities of gait and mobility (11/10/19) Abnormal posture (11/10/19) Neurologic neglect syndrome (11/10/19) Physical Therapy Treatment Note PT-OP-A Visit Information Start: 09/17/19 18:00 Freq: Status: Active Protocol: Document 11/10/19 13:45 DCW (Rec: 11/10/19 14:35 DCW [id number]) Out-Patient Physical Therapy Visit Information Visit Information Visit Type Treatment Note Visit Start Time 13:45 Visit Stop Time 14:30 Total Visit Minutes 45 Visit Number 14 Number of TECHNICIAN SUPPORT ENGINEER Visits 0 Evaluation Information Evaluation Date 09/17/19 PT-OP-B Current Condition Start: 09/17/19 18:00 Freq: Status: Active Protocol: Document 09/17/19 12:00 DCW (Rec: 09/18/19 10:29 DCW [id number]) Current Condition History of Current Condition Onset Date 04/14/19 Current Complaints Hemiparesis secondary to CVA History of Current Condition Pt is a 69 year old male presenting to skilled outpatient physical therapy with left-side neglect, hemiparesis, loss of independence, and difficulty walking following an intraparenchymal hemorrhage on 04/14/19. Pt was transferred from [facility] to [facility], where a craniotomy was performed on 04/16/19. Pt completed 7 weeks of rehab/ recovery at [facility], and then underwent a second surgery on 06/26/19 to replace the skull fragment. Pt was then at an acute rehab facility 06/30-07/18/19, and since then has been receiving home health physical therapy. Pt presents today with limited left-sided function, left visual and physical neglect, difficulty with transfers, decreased activity tolerance, decreased gait, and many other secondary effects following his CVA. Pt has been working on ambulation with a trent walker with home health, and his states he has walked around 100' a few times, but always with a therapist, as she does not feel comfortable walking with him yet. Pt exclusively gets around at time of evaluation in a manual wheelchair. Pt's transfers have been going fairly well, with his caregivers performing CGA, however pt will occasionally need assistance with placement of his left UE and LE due to neglect. Pt's biggest complaint at the moment is leg pain, his reports they have tried PT, Massage, CBD il, Tylenol, Oxycodine, and Gabapentin, all with minimal benefit. Prior to CVA, pt was fully independent in all activities. Pt and have garegivers 8 hrs a day for assistance. Prior Treatments and Tests Craniotomy 04/16/19, Acute rehab, Skull fragment replacement 06/26/19, home health PT Prior Functional Status Baseline Function- ADL's Independent Baseline Function- Mobility Independent PT-OP-C Subjective Start: 09/17/19 18:00 Freq: Status: Active Protocol: Document 11/10/19 13:45 DCW (Rec: 11/10/19 14:35 DCW [id number]) OP-PT Subjective Patient Comments Patient Comments Pt's reports that he went for a walk this morning, at least 600-700 feet with his home helper using a trent- walker. PT-OP-G Mobility & Gait Start: 09/17/19 18:00 Freq: Status: Active Protocol: Document 09/17/19 12:00 DCW (Rec: 09/18/19 10:29 DCW [id number]) OP Mobility Evaluation Bed Mobility Rolling Rolling torso largely SBA, however requires Min A x1 for positioning of L UE secondary to neglect Supine to and from Sit SBA Transfers Sit to Stand SBA /c gait belt, occasional assistance required for positioning of left foot Bed to Chair Transfers Stand pivot transfer CGA /c gait belt when transfersing in both directions OP Gait Assessment Gait Gait Assistance Required: Contact Guard Assist Distance (Feet) 120 Able to Maintain Weight Bearing Status Yes During Gait Assistive Devices Assistive Device Gait Belt,Trent Walker Orthotic/Prosthetic Devices or Brace: No Gait Deviations General Gait Pattern Antalgic,Ataxic,Decreased Stride Length,Decreased Feet Clearance,Flexed Trunk,Lateral Trunk Lean,Step-to Gait Factors Limiting Gait Function Factors Limiting Gait Function Abnormal Tonal Influences, Decreased Activity Tolerance, Decreased Sensation,Decreased Strength,Incoordination,Poor Balance,Poor Safety Awareness PT-OP-H Neuro Start: 09/17/19 18:00 Freq: Status: Active Protocol: Document 09/17/19 12:00 DCW (Rec: 09/18/19 17:29 DCW [id number]) Sensation Evaluation Gross Sensation Gross Sensation Left UE Impaired,Left LE Impaired Sensation Description Paresthesia,Numbness,Burning, Heaviness,Pain Location Details Left Leg Light Touch Absent Sharp/Dull Absent Deep Pressure Impaired Proprioception (Position) Absent Kinesthesia (Movement) Impaired Deep Tendon Reflex & Clonus Assessment Deep Tendon Reflex Left Achilles Deep Tendon Reflex 3+ Normal But Brisk Left Patellar Deep Tendon Reflex 3+ Normal But Brisk Muscle Tone Tone Assessment Left Lower Extremity Flexor Tone Description Severe Hypotonicity PT-OP-M Strength Start: 09/17/19 18:00 Freq: Status: Active Protocol: Document 09/17/19 12:00 DCW (Rec: 09/18/19 17:29 DCW [id number]) Hip Strength Hip Manual Muscle Testing Right Flexion (L2) 4 Good Extension (S1) 4 Good Abduction 5 Normal Adduction 5 Normal External Rotation 5 Normal Internal Rotation 5 Normal Left Flexion (L2) 3 Fair Extension (S1) 2- Poor- Abduction 2+ Poor+ Adduction 3+ Fair+ External Rotation 3- Fair- Internal Rotation 2- Poor- Reason Not Measured Muscle Tone,Pain Knee Strength Knee Manual Muscle Testing Right Flexion (S2) 5 Normal Extension (L3) 5 Normal Left Flexion (S2) 3- Fair- Extension (L3) 3+ Fair+ Reason Not Measured Muscle Tone,Pain Ankle/Foot Strength Ankle and Foot Manual Muscle Testing Right Dorsiflexion (L4) 5 Normal Plantarflexion (S1) 5 Normal Left Dorsiflexion (L4) 4- Good- Plantarflexion (S1) 3+ Fair+ PT-OP-Q Treatments Start: 09/17/19 18:00 Freq: Status: Active Protocol: Document 11/10/19 13:45 DCW (Rec: 11/10/19 14:35 DCW [id number]) Cardio Equipment Recumbent Elliptical (BiodMeedor) Duration (Minutes) 6 Resistance 3 Seat Position 12 Gym Equipment Shuttle Recovery Unilateral Heel Raises Details Left Resistance 25# Unilateral Squats Details Left Resistance 50# Shuttle Recovery Platform Stable Therapeutic Exercises Other Exercises Step-ups Other Exercise Name Step-ups Side left Equipment Used 4 steps Gait Training Gait Activity Steps Description Ascend/Descend Device Used R rail Level of Assistance CGA Surface 4 Comments Step-to and step-through PT-OP-R Modalities Start: 09/17/19 18:00 Freq: Status: Active Protocol: Document 10/10/19 13:45 HH (Rec: 10/10/19 16:17 HH [id number]) Hot Pack/Cold Pack Treatment moist heat Location L hip adductors Patient Position Hooklying Treatment Duration (minutes) 10 Patient Tolerance Good PT-OP-S Aquatic Treatment Start: 09/17/19 18:00 Freq: Status: Active Protocol: Document 11/07/19 11:45 LJ (Rec: 11/07/19 16:29 LJ [id number]) Aquatics Treatment Pool Entry/Exit Pool Entry/Exit Method Lift Assistance Minimal Assistance,Moderate Assistance Comments min A transfering to right onto pool lift, mod A lift to w/c left Water Walking Sideways Water Level Chest Level Level of Assistance Minimal Assistance,Moderate Assistance Comments [place] float, wet vest Forwards Water Level Chest Level Walking Equipment wet vest Level of Assistance Contact Guard Assistance, Minimal Assistance,Moderate Assistance Lower Extremity Exercises hip extension Water Level Chest Level Equipment wet vest, blue float Reps/Duration 10x bilat HS curls Water Level Chest Level Equipment wet vest, blue float Reps/Duration 20 bilat Comments pt left hand hold on therapist arm marching at wall Water Level Chest Level Equipment wet vest, blue float Reps/Duration 1 min Comments pt left hand hold on therapist arm Upper Extremity Exercises push/pull Body Position Standing Water Level Chest Level Reps/Duration 2 min Comments joanna benton assist for bal upper trunk rotation Body Position Standing Water Level Chest Level Reps/Duration 2 min Comments joanna benton assit for bal hor ab/ad Body Position Standing Water Level Chest Level Reps/Duration 2 min Comments mod assist for bal Balance standing bal Body Position Standing Water Level Waist Level Comments CG to mod assist [place] Activities [place] Activities Bicycle Equipment wet vest,[place] float, small ankle floats on arms, 3# each LE PT-OP-T Assessment and Plan Start: 09/17/19 18:00 Freq: Status: Active Protocol: Document 11/10/19 13:45 DCW (Rec: 11/10/19 14:35 DCW [id number]) Physical Therapy Assessment Impairments Impairments Activity Tolerance,Balance, Coordination,Functional Activities,Functional Mobility ,Gait,Pain,ROM,Sensation, Strength,Tone,Transfers Goals Four Impairment Pt demonstrates strength impairment throughout left LE Care Home Goal (LTG) Pt to display MMT >3+/5 through L LE LTG Duration 11/18/19 Three Impairment Pt SBA for transfers and bed mobility d/t Left Neglect Care Home Goal (LTG) Pt to demonstrate independent transfers and bed mobility with an ability to address left LE and UE 80% of the time Two Impairment Pt ambulates 120' SBA with hemiwalker Short Term Goal (STG) Pt to ambulate 200' Independently with hemiwalker to improve independence at home and reduce reliance on his wheelchair STG Duration 10/18/19 Care Home Goal (LTG) Pt to ambulate 300' SBA /c SPC LTG Duration 11/18/19 One Impairment Pt does not have an appropriate home exercise program Short Term Goal (STG) Pt to be independent and compliant with an appropriate HEP STG Duration 10/18/19 Assessment Summary Assessment Pt did exceptionally well with his first attempt of stairs, both step-to and step-through using R rail. Pt demonstrating increased left leg strength and coordination, however ~50% of the time during step-down, pt demonstrated L scissoring gait, and needed verbal and tactile cues to position left foot properly. Physical Therapy Plan Frequency and Duration Frequency of Treatment 2x/Week Duration of Treatment 12 weeks Plan of Care Start Date 09/17/19 Plan of Care End Date 12/10/19 Therapeutic Interventions Therapeutic Interventions Aquatic Therapy,Balance Training,Coordination Training ,Gait Training,Home Exercise Program,Manual Therapy, Neuromuscular Re-education, Patient/Caregiver Education, Self-Care/Home Management, Therapeutic Activities, Therapeutic Exercises Modalities Cold Pack/Ice Massage,Electric Stimulation,Hot Packs, Ultrasound Next Visit Focus/Plan Next Note Type Treatment Note Next Visit Plan Continue strengthening, balance and gait training with NMR
--- NOTE | 2019-11-14 17:14 | PT.OTN ---
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) Physical Therapy Treatment Note PT-OP-A Visit Information Start: 09/17/19 18:00 Freq: Status: Active Protocol: Document 11/14/19 11:45 LJ (Rec: 11/14/19 17:14 LJ [id number]) Out-Patient Physical Therapy Visit Information Visit Information Visit Type Aquatic Treatment Note Visit Start Time 11:45 Visit Stop Time 12:30 Total Visit Minutes 45 Visit Number 15 Number of RUG CLEANING SUPERVISOR Visits 1 PT-OP-B Current Condition Start: 09/17/19 18:00 Freq: Status: Active Protocol: Document 09/17/19 12:00 DCW (Rec: 09/18/19 10:29 DCW [id number]) Current Condition History of Current Condition Onset Date 04/14/19 Current Complaints Hemiparesis secondary to CVA History of Current Condition Pt is a 69 year old male presenting to skilled outpatient physical therapy with left-side neglect, hemiparesis, loss of independence, and difficulty walking following an intraparenchymal hemorrhage on 04/14/19. Pt was transferred from [facility] to [facility], where a craniotomy was performed on 04/16/19. Pt completed 7 weeks of rehab/ recovery at [facility], and then underwent a second surgery on 06/26/19 to replace the skull fragment. Pt was then at an acute rehab facility 06/30-07/18/19, and since then has been receiving home health physical therapy. Pt presents today with limited left-sided function, left visual and physical neglect, difficulty with transfers, decreased activity tolerance, decreased gait, and many other secondary effects following his CVA. Pt has been working on ambulation with a trent walker with home health, and his states he has walked around 100' a few times, but always with a therapist, as she does not feel comfortable walking with him yet. Pt exclusively gets around at time of evaluation in a manual wheelchair. Pt's transfers have been going fairly well, with his caregivers performing CGA, however pt will occasionally need assistance with placement of his left UE and LE due to neglect. Pt's biggest complaint at the moment is leg pain, his reports they have tried PT, Massage, CBD il, Tylenol, Oxycodine, and Gabapentin, all with minimal benefit. Prior to CVA, pt was fully independent in all activities. Pt and have garegivers 8 hrs a day for assistance. Prior Treatments and Tests Craniotomy 04/16/19, Acute rehab, Skull fragment replacement 06/26/19, home health PT Prior Functional Status Baseline Function- ADL's Independent Baseline Function- Mobility Independent PT-OP-C Subjective Start: 09/17/19 18:00 Freq: Status: Active Protocol: Document 11/14/19 11:45 LJ (Rec: 11/14/19 17:14 LJ [id number]) OP-PT Subjective Patient Comments Patient Comments Pt very happy with the progress he is making PT-OP-G Mobility & Gait Start: 09/17/19 18:00 Freq: Status: Active Protocol: Document 09/17/19 12:00 DCW (Rec: 09/18/19 10:29 DCW [id number]) OP Mobility Evaluation Bed Mobility Rolling Rolling torso largely SBA, however requires Min A x1 for positioning of L UE secondary to neglect Supine to and from Sit SBA Transfers Sit to Stand SBA /c gait belt, occasional assistance required for positioning of left foot Bed to Chair Transfers Stand pivot transfer CGA /c gait belt when transfersing in both directions OP Gait Assessment Gait Gait Assistance Required: Contact Guard Assist Distance (Feet) 120 Able to Maintain Weight Bearing Status Yes During Gait Assistive Devices Assistive Device Gait Belt,Trent Walker Orthotic/Prosthetic Devices or Brace: No Gait Deviations General Gait Pattern Antalgic,Ataxic,Decreased Stride Length,Decreased Feet Clearance,Flexed Trunk,Lateral Trunk Lean,Step-to Gait Factors Limiting Gait Function Factors Limiting Gait Function Abnormal Tonal Influences, Decreased Activity Tolerance, Decreased Sensation,Decreased Strength,Incoordination,Poor Balance,Poor Safety Awareness PT-OP-H Neuro Start: 09/17/19 18:00 Freq: Status: Active Protocol: Document 09/17/19 12:00 DCW (Rec: 09/18/19 17:29 DCW [id number]) Sensation Evaluation Gross Sensation Gross Sensation Left UE Impaired,Left LE Impaired Sensation Description Paresthesia,Numbness,Burning, Heaviness,Pain Location Details Left Leg Light Touch Absent Sharp/Dull Absent Deep Pressure Impaired Proprioception (Position) Absent Kinesthesia (Movement) Impaired Deep Tendon Reflex & Clonus Assessment Deep Tendon Reflex Left Achilles Deep Tendon Reflex 3+ Normal But Brisk Left Patellar Deep Tendon Reflex 3+ Normal But Brisk Muscle Tone Tone Assessment Left Lower Extremity Flexor Tone Description Severe Hypotonicity PT-OP-M Strength Start: 09/17/19 18:00 Freq: Status: Active Protocol: Document 09/17/19 12:00 DCW (Rec: 09/18/19 17:29 DCW [id number]) Hip Strength Hip Manual Muscle Testing Right Flexion (L2) 4 Good Extension (S1) 4 Good Abduction 5 Normal Adduction 5 Normal External Rotation 5 Normal Internal Rotation 5 Normal Left Flexion (L2) 3 Fair Extension (S1) 2- Poor- Abduction 2+ Poor+ Adduction 3+ Fair+ External Rotation 3- Fair- Internal Rotation 2- Poor- Reason Not Measured Muscle Tone,Pain Knee Strength Knee Manual Muscle Testing Right Flexion (S2) 5 Normal Extension (L3) 5 Normal Left Flexion (S2) 3- Fair- Extension (L3) 3+ Fair+ Reason Not Measured Muscle Tone,Pain Ankle/Foot Strength Ankle and Foot Manual Muscle Testing Right Dorsiflexion (L4) 5 Normal Plantarflexion (S1) 5 Normal Left Dorsiflexion (L4) 4- Good- Plantarflexion (S1) 3+ Fair+ PT-OP-Q Treatments Start: 09/17/19 18:00 Freq: Status: Active Protocol: Document 11/10/19 13:45 DCW (Rec: 11/10/19 14:35 DCW [id number]) Cardio Equipment Recumbent Elliptical (Biodex) Duration (Minutes) 6 Resistance 3 Seat Position 12 Gym Equipment Shuttle Recovery Unilateral Heel Raises Details Left Resistance 25# Unilateral Squats Details Left Resistance 50# Shuttle Recovery Platform Stable Therapeutic Exercises Other Exercises Step-ups Other Exercise Name Step-ups Side left Equipment Used 4 steps Gait Training Gait Activity Steps Description Ascend/Descend Device Used R rail Level of Assistance CGA Surface 4 Comments Step-to and step-through PT-OP-R Modalities Start: 09/17/19 18:00 Freq: Status: Active Protocol: Document 10/10/19 13:45 HH (Rec: 10/10/19 16:17 HH [id number]) Hot Pack/Cold Pack Treatment moist heat Location L hip adductors Patient Position Hooklying Treatment Duration (minutes) 10 Patient Tolerance Good PT-OP-S Aquatic Treatment Start: 09/17/19 18:00 Freq: Status: Active Protocol: Document 11/14/19 11:45 LJ (Rec: 11/14/19 17:14 LJ [id number]) Aquatics Treatment Pool Entry/Exit Pool Entry/Exit Method Lift Assistance Minimal Assistance,Moderate Assistance Comments min A transfering to right onto pool lift, mod A lift to w/c left Water Walking Marching Water Level Chest Level Walking Equipment wet vest, colored floats Level of Assistance Standby Assistance,Contact Guard Assistance,Minimal Assistance Sideways Water Level Chest Level Level of Assistance Minimal Assistance,Moderate Assistance Comments wet vest, arm floats LUE Forwards Water Level Chest Level Walking Equipment wet vest Level of Assistance Standby Assistance,Contact Guard Assistance,Minimal Assistance Upper Extremity Exercises push/pull Body Position Standing Water Level Chest Level Reps/Duration 2 min Comments joanna benton assist for bal upper trunk rotation Body Position Standing Water Level Chest Level Reps/Duration 2 min Comments joanna benton assit for bal hor ab/ad Body Position Standing Water Level Chest Level Reps/Duration 2 min Comments mod assist for bal Balance step ups Details step ups/down using boxes Body Position Standing Water Level Waist Level Equipment 8 boxes Comments mod verbal cues for coordination weight shifting Body Position Standing Water Level Waist Level Equipment wet vest Comments CG-mod assist standing bal Body Position Standing Water Level Waist Level Equipment wet vest Comments CG to mod assist PT-OP-T Assessment and Plan Start: 09/17/19 18:00 Freq: Status: Active Protocol: Document 11/14/19 11:45 ADA (Rec: 11/14/19 17:14 LJ [id number]) Physical Therapy Assessment Rehab Potential Rehabilitation Potential Fair Evaluation Complexity Number of Personal Factors/Comorbidities 3 or More Number of Body Systems Impaired 4 or More Clinical Presentation at Evaluation Unstable Impairments Impairments Activity Tolerance,Balance, Coordination,Functional Activities,Functional Mobility ,Gait,Pain,ROM,Sensation, Strength,Tone,Transfers Goals Four Impairment Pt demonstrates strength impairment throughout left LE Alf Goal (LTG) Pt to display MMT >3+/5 through L LE LTG Duration 11/18/19 Three Impairment Pt SBA for transfers and bed mobility d/t Left Neglect Last Model Department Supervisor Goal (LTG) Pt to demonstrate independent transfers and bed mobility with an ability to address left LE and UE 80% of the time Two Impairment Pt ambulates 120' SBA with hemiwalker Short Term Goal (STG) Pt to ambulate 200' Independently with hemiwalker to improve independence at home and reduce reliance on his wheelchair STG Duration 10/18/19 Alf Goal (LTG) Pt to ambulate 300' SBA /c SPC LTG Duration 11/18/19 One Impairment Pt does not have an appropriate home exercise program Short Term Goal (STG) Pt to be independent and compliant with an appropriate HEP STG Duration 10/18/19 Assessment Summary Assessment Pt did very well with independnt walking in pool with occasional redirection and balance assist. Pt able to follow directions with step up/down with boxes. With concentration pt is able to stabilize on top of step independently in groin deep water. Still requires moderate amount of verbal cueing for most activities but overall much improved Physical Therapy Plan Frequency and Duration Frequency of Treatment 2x/Week Duration of Treatment 12 weeks Plan of Care Start Date 09/17/19 Plan of Care End Date 12/10/19 Therapeutic Interventions Therapeutic Interventions Aquatic Therapy,Balance Training,Coordination Training ,Gait Training,Home Exercise Program,Manual Therapy, Neuromuscular Re-education, Patient/Caregiver Education, Self-Care/Home Management, Therapeutic Activities, Therapeutic Exercises Modalities Cold Pack/Ice Massage,Electric Stimulation,Hot Packs, Ultrasound Next Visit Focus/Plan Next Note Type Treatment Note Next Visit Plan Continue strengthening, balance and gait training with NMR
--- NOTE | 2019-11-18 15:26 | PT.OTN ---
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) Physical Therapy Treatment Note PT-OP-A Visit Information Start: 09/17/19 18:00 Freq: Status: Active Protocol: Document 11/18/19 14:30 DCW (Rec: 11/18/19 15:25 DCW [id number]) Out-Patient Physical Therapy Visit Information Visit Information Visit Type Treatment Note Visit Start Time 14:30 Visit Stop Time 15:15 Total Visit Minutes 45 Visit Number 16 Number of LEGAL OFFICER Visits 0 Evaluation Information Evaluation Date 09/17/19 PT-OP-B Current Condition Start: 09/17/19 18:00 Freq: Status: Active Protocol: Document 09/17/19 12:00 DCW (Rec: 09/18/19 10:29 DCW [id number]) Current Condition History of Current Condition Onset Date 04/14/19 Current Complaints Hemiparesis secondary to CVA History of Current Condition Pt is a 69 year old male presenting to skilled outpatient physical therapy with left-side neglect, hemiparesis, loss of independence, and difficulty walking following an intraparenchymal hemorrhage on 04/14/19. Pt was transferred from [facility] to [facility], where a craniotomy was performed on 04/16/19. Pt completed 7 weeks of rehab/ recovery at [facility], and then underwent a second surgery on 06/26/19 to replace the skull fragment. Pt was then at an acute rehab facility 06/30-07/18/19, and since then has been receiving home health physical therapy. Pt presents today with limited left-sided function, left visual and physical neglect, difficulty with transfers, decreased activity tolerance, decreased gait, and many other secondary effects following his CVA. Pt has been working on ambulation with a trent walker with home health, and his states he has walked around 100' a few times, but always with a therapist, as she does not feel comfortable walking with him yet. Pt exclusively gets around at time of evaluation in a manual wheelchair. Pt's transfers have been going fairly well, with his caregivers performing CGA, however pt will occasionally need assistance with placement of his left UE and LE due to neglect. Pt's biggest complaint at the moment is leg pain, his reports they have tried PT, Massage, CBD il, Tylenol, Oxycodine, and Gabapentin, all with minimal benefit. Prior to CVA, pt was fully independent in all activities. Pt and have garegivers 8 hrs a day for assistance. Prior Treatments and Tests Craniotomy 04/16/19, Acute rehab, Skull fragment replacement 06/26/19, home health PT Prior Functional Status Baseline Function- ADL's Independent Baseline Function- Mobility Independent PT-OP-C Subjective Start: 09/17/19 18:00 Freq: Status: Active Protocol: Document 11/18/19 14:30 DCW (Rec: 11/18/19 15:25 DCW [id number]) OP-PT Subjective Patient Comments Patient Comments Pt very excited to get back to trying the stairs. PT-OP-G Mobility & Gait Start: 09/17/19 18:00 Freq: Status: Active Protocol: Document 09/17/19 12:00 DCW (Rec: 09/18/19 10:29 DCW [id number]) OP Mobility Evaluation Bed Mobility Rolling Rolling torso largely SBA, however requires Min A x1 for positioning of L UE secondary to neglect Supine to and from Sit SBA Transfers Sit to Stand SBA /c gait belt, occasional assistance required for positioning of left foot Bed to Chair Transfers Stand pivot transfer CGA /c gait belt when transfersing in both directions OP Gait Assessment Gait Gait Assistance Required: Contact Guard Assist Distance (Feet) 120 Able to Maintain Weight Bearing Status Yes During Gait Assistive Devices Assistive Device Gait Belt,Trent Walker Orthotic/Prosthetic Devices or Brace: No Gait Deviations General Gait Pattern Antalgic,Ataxic,Decreased Stride Length,Decreased Feet Clearance,Flexed Trunk,Lateral Trunk Lean,Step-to Gait Factors Limiting Gait Function Factors Limiting Gait Function Abnormal Tonal Influences, Decreased Activity Tolerance, Decreased Sensation,Decreased Strength,Incoordination,Poor Balance,Poor Safety Awareness PT-OP-H Neuro Start: 09/17/19 18:00 Freq: Status: Active Protocol: Document 09/17/19 12:00 DCW (Rec: 09/18/19 17:29 DCW [id number]) Sensation Evaluation Gross Sensation Gross Sensation Left UE Impaired,Left LE Impaired Sensation Description Paresthesia,Numbness,Burning, Heaviness,Pain Location Details Left Leg Light Touch Absent Sharp/Dull Absent Deep Pressure Impaired Proprioception (Position) Absent Kinesthesia (Movement) Impaired Deep Tendon Reflex & Clonus Assessment Deep Tendon Reflex Left Achilles Deep Tendon Reflex 3+ Normal But Brisk Left Patellar Deep Tendon Reflex 3+ Normal But Brisk Muscle Tone Tone Assessment Left Lower Extremity Flexor Tone Description Severe Hypotonicity PT-OP-M Strength Start: 09/17/19 18:00 Freq: Status: Active Protocol: Document 09/17/19 12:00 DCW (Rec: 09/18/19 17:29 DCW [id number]) Hip Strength Hip Manual Muscle Testing Right Flexion (L2) 4 Good Extension (S1) 4 Good Abduction 5 Normal Adduction 5 Normal External Rotation 5 Normal Internal Rotation 5 Normal Left Flexion (L2) 3 Fair Extension (S1) 2- Poor- Abduction 2+ Poor+ Adduction 3+ Fair+ External Rotation 3- Fair- Internal Rotation 2- Poor- Reason Not Measured Muscle Tone,Pain Knee Strength Knee Manual Muscle Testing Right Flexion (S2) 5 Normal Extension (L3) 5 Normal Left Flexion (S2) 3- Fair- Extension (L3) 3+ Fair+ Reason Not Measured Muscle Tone,Pain Ankle/Foot Strength Ankle and Foot Manual Muscle Testing Right Dorsiflexion (L4) 5 Normal Plantarflexion (S1) 5 Normal Left Dorsiflexion (L4) 4- Good- Plantarflexion (S1) 3+ Fair+ PT-OP-Q Treatments Start: 09/17/19 18:00 Freq: Status: Active Protocol: Document 11/18/19 14:30 DCW (Rec: 11/18/19 15:25 DCW [id number]) Therapeutic Exercises Other Exercises Step-ups Other Exercise Name Toe-taps Equipment Used 6 step Comments L UE support->no UE support Gait Training Gait Activity Steps Description Ascend/Descend Device Used R rail Level of Assistance CGA Surface 6 Comments Step-to and step-through Neuro Re-Education Treatment Balance Activities Cone transfers Details Bending down to transfer ball between cones Comments Standing balance with L UE support and with no UE support Standing Balance Details Sherwood-bag toss Equipment // bars Comments Standing balance with L UE support and with no UE support PT-OP-R Modalities Start: 09/17/19 18:00 Freq: Status: Active Protocol: Document 10/10/19 13:45 HH (Rec: 10/10/19 16:17 HH [email or web address]) Hot Pack/Cold Pack Treatment moist heat Location L hip adductors Patient Position Hooklying Treatment Duration (minutes) 10 Patient Tolerance Good PT-OP-S Aquatic Treatment Start: 09/17/19 18:00 Freq: Status: Active Protocol: Document 11/14/19 11:45 LJ (Rec: 11/14/19 17:14 LJ [id number]) Aquatics Treatment Pool Entry/Exit Pool Entry/Exit Method Lift Assistance Minimal Assistance,Moderate Assistance Comments min A transfering to right onto pool lift, mod A lift to w/c left Water Walking Marching Water Level Chest Level Walking Equipment wet vest, colored floats Level of Assistance Standby Assistance,Contact Guard Assistance,Minimal Assistance Sideways Water Level Chest Level Level of Assistance Minimal Assistance,Moderate Assistance Comments wet vest, arm floats LUE Forwards Water Level Chest Level Walking Equipment wet vest Level of Assistance Standby Assistance,Contact Guard Assistance,Minimal Assistance Upper Extremity Exercises push/pull Body Position Standing Water Level Chest Level Reps/Duration 2 min Comments joanna benton assist for bal upper trunk rotation Body Position Standing Water Level Chest Level Reps/Duration 2 min Comments joanna benton assit for bal hor ab/ad Body Position Standing Water Level Chest Level Reps/Duration 2 min Comments mod assist for bal Balance step ups Details step ups/down using boxes Body Position Standing Water Level Waist Level Equipment 8 boxes Comments mod verbal cues for coordination weight shifting Body Position Standing Water Level Waist Level Equipment wet vest Comments CG-mod assist standing bal Body Position Standing Water Level Waist Level Equipment wet vest Comments CG to mod assist PT-OP-T Assessment and Plan Start: 09/17/19 18:00 Freq: Status: Active Protocol: Document 11/18/19 14:30 DCW (Rec: 11/18/19 15:25 DCW [id number]) Physical Therapy Assessment Impairments Impairments Activity Tolerance,Balance, Coordination,Functional Activities,Functional Mobility ,Gait,Pain,ROM,Sensation, Strength,Tone,Transfers Goals Four Impairment Pt demonstrates strength impairment throughout left LE Supervisor Drawing Goal (LTG) Pt to display MMT >3+/5 through L LE LTG Duration 11/18/19 Three Impairment Pt SBA for transfers and bed mobility d/t Left Neglect Halfway Goal (LTG) Pt to demonstrate independent transfers and bed mobility with an ability to address left LE and UE 80% of the time Two Impairment Pt ambulates 120' SBA with hemiwalker Short Term Goal (STG) Pt to ambulate 200' Independently with hemiwalker to improve independence at home and reduce reliance on his wheelchair STG Duration 10/18/19 Supervisor Drawing Goal (LTG) Pt to ambulate 300' SBA /c SPC LTG Duration 11/18/19 One Impairment Pt does not have an appropriate home exercise program Short Term Goal (STG) Pt to be independent and compliant with an appropriate HEP STG Duration 10/18/19 Assessment Summary Assessment Pt continues to perform very well on the stairs, even with the increase to 6 steps. Pt was also able to perform standing balance, weight shifting, and bending over both with only L UE support and with no UE support CGA. Physical Therapy Plan Frequency and Duration Frequency of Treatment 2x/Week Duration of Treatment 12 weeks Plan of Care Start Date 09/17/19 Plan of Care End Date 12/10/19 Therapeutic Interventions Therapeutic Interventions Aquatic Therapy,Balance Training,Coordination Training ,Gait Training,Home Exercise Program,Manual Therapy, Neuromuscular Re-education, Patient/Caregiver Education, Self-Care/Home Management, Therapeutic Activities, Therapeutic Exercises Modalities Cold Pack/Ice Massage,Electric Stimulation,Hot Packs, Ultrasound Next Visit Focus/Plan Next Note Type Treatment Note Next Visit Plan Continue strengthening, balance and gait training with NMR
--- NOTE | 2019-11-21 17:24 | PT.OTN ---
Current Diagnoses Nontraumatic intracerebral hemorrhage, unspecified (11/21/19) Hemiplegia and hemiparesis following cerebral infarction affecting left non-dominant side (11/21/19) Pain in left leg (11/21/19) Pain in left lower leg (11/21/19) Other abnormalities of gait and mobility (11/21/19) Abnormal posture (11/21/19) Neurologic neglect syndrome (11/21/19) Physical Therapy Treatment Note PT-OP-A Visit Information Start: 09/17/19 18:00 Freq: Status: Active Protocol: Document 11/21/19 11:45 LJ (Rec: 11/21/19 17:24 LJ [id number]) Out-Patient Physical Therapy Visit Information Visit Information Visit Type Aquatic Treatment Note Visit Start Time 11:45 Visit Stop Time 12:30 Total Visit Minutes 45 Visit Number 17 Number of SENIOR STATISTICIAN Visits 1 Evaluation Information Evaluation Date 09/17/19 PT-OP-B Current Condition Start: 09/17/19 18:00 Freq: Status: Active Protocol: Document 09/17/19 12:00 DCW (Rec: 09/18/19 10:29 DCW [id number]) Current Condition History of Current Condition Onset Date 04/14/19 Current Complaints Hemiparesis secondary to CVA History of Current Condition Pt is a 69 year old male presenting to skilled outpatient physical therapy with left-side neglect, hemiparesis, loss of independence, and difficulty walking following an intraparenchymal hemorrhage on 04/14/19. Pt was transferred from [facility] to [facility], where a craniotomy was performed on 04/16/19. Pt completed 7 weeks of rehab/ recovery at [facility], and then underwent a second surgery on 06/26/19 to replace the skull fragment. Pt was then at an acute rehab facility 06/30-07/18/19, and since then has been receiving home health physical therapy. Pt presents today with limited left-sided function, left visual and physical neglect, difficulty with transfers, decreased activity tolerance, decreased gait, and many other secondary effects following his CVA. Pt has been working on ambulation with a trent walker with home health, and his states he has walked around 100' a few times, but always with a therapist, as she does not feel comfortable walking with him yet. Pt exclusively gets around at time of evaluation in a manual wheelchair. Pt's transfers have been going fairly well, with his caregivers performing CGA, however pt will occasionally need assistance with placement of his left UE and LE due to neglect. Pt's biggest complaint at the moment is leg pain, his reports they have tried PT, Massage, CBD il, Tylenol, Oxycodine, and Gabapentin, all with minimal benefit. Prior to CVA, pt was fully independent in all activities. Pt and have garegivers 8 hrs a day for assistance. Prior Treatments and Tests Craniotomy 04/16/19, Acute rehab, Skull fragment replacement 06/26/19, home health PT Prior Functional Status Baseline Function- ADL's Independent Baseline Function- Mobility Independent PT-OP-C Subjective Start: 09/17/19 18:00 Freq: Status: Active Protocol: Document 11/21/19 11:45 LJ (Rec: 11/21/19 17:24 LJ [id number]) OP-PT Subjective Patient Comments Patient Comments Pt was surprised at how he was able to perform at last clinic session PT-OP-G Mobility & Gait Start: 09/17/19 18:00 Freq: Status: Active Protocol: Document 09/17/19 12:00 DCW (Rec: 09/18/19 10:29 DCW [id number]) OP Mobility Evaluation Bed Mobility Rolling Rolling torso largely SBA, however requires Min A x1 for positioning of L UE secondary to neglect Supine to and from Sit SBA Transfers Sit to Stand SBA /c gait belt, occasional assistance required for positioning of left foot Bed to Chair Transfers Stand pivot transfer CGA /c gait belt when transfersing in both directions OP Gait Assessment Gait Gait Assistance Required: Contact Guard Assist Distance (Feet) 120 Able to Maintain Weight Bearing Status Yes During Gait Assistive Devices Assistive Device Gait Belt,Trent Walker Orthotic/Prosthetic Devices or Brace: No Gait Deviations General Gait Pattern Antalgic,Ataxic,Decreased Stride Length,Decreased Feet Clearance,Flexed Trunk,Lateral Trunk Lean,Step-to Gait Factors Limiting Gait Function Factors Limiting Gait Function Abnormal Tonal Influences, Decreased Activity Tolerance, Decreased Sensation,Decreased Strength,Incoordination,Poor Balance,Poor Safety Awareness PT-OP-H Neuro Start: 09/17/19 18:00 Freq: Status: Active Protocol: Document 09/17/19 12:00 DCW (Rec: 09/18/19 17:29 DCW [id number]) Sensation Evaluation Gross Sensation Gross Sensation Left UE Impaired,Left LE Impaired Sensation Description Paresthesia,Numbness,Burning, Heaviness,Pain Location Details Left Leg Light Touch Absent Sharp/Dull Absent Deep Pressure Impaired Proprioception (Position) Absent Kinesthesia (Movement) Impaired Deep Tendon Reflex & Clonus Assessment Deep Tendon Reflex Left Achilles Deep Tendon Reflex 3+ Normal But Brisk Left Patellar Deep Tendon Reflex 3+ Normal But Brisk Muscle Tone Tone Assessment Left Lower Extremity Flexor Tone Description Severe Hypotonicity PT-OP-M Strength Start: 09/17/19 18:00 Freq: Status: Active Protocol: Document 09/17/19 12:00 DCW (Rec: 09/18/19 17:29 NEW [id number]) Hip Strength Hip Manual Muscle Testing Right Flexion (L2) 4 Good Extension (S1) 4 Good Abduction 5 Normal Adduction 5 Normal External Rotation 5 Normal Internal Rotation 5 Normal Left Flexion (L2) 3 Fair Extension (S1) 2- Poor- Abduction 2+ Poor+ Adduction 3+ Fair+ External Rotation 3- Fair- Internal Rotation 2- Poor- Reason Not Measured Muscle Tone,Pain Knee Strength Knee Manual Muscle Testing Right Flexion (S2) 5 Normal Extension (L3) 5 Normal Left Flexion (S2) 3- Fair- Extension (L3) 3+ Fair+ Reason Not Measured Muscle Tone,Pain Ankle/Foot Strength Ankle and Foot Manual Muscle Testing Right Dorsiflexion (L4) 5 Normal Plantarflexion (S1) 5 Normal Left Dorsiflexion (L4) 4- Good- Plantarflexion (S1) 3+ Fair+ PT-OP-Q Treatments Start: 09/17/19 18:00 Freq: Status: Active Protocol: Document 11/18/19 14:30 DCW (Rec: 11/18/19 15:25 DCW [id number]) Therapeutic Exercises Other Exercises Step-ups Other Exercise Name Toe-taps Equipment Used 6 step Comments L UE support->no UE support Gait Training Gait Activity Steps Description Ascend/Descend Device Used R rail Level of Assistance CGA Surface 6 Comments Step-to and step-through Neuro Re-Education Treatment Balance Activities Cone transfers Details Bending down to transfer ball between cones Comments Standing balance with L UE support and with no UE support Standing Balance Details Sherwood-bag toss Equipment // bars Comments Standing balance with L UE support and with no UE support PT-OP-R Modalities Start: 09/17/19 18:00 Freq: Status: Active Protocol: Document 10/10/19 13:45 HH (Rec: 10/10/19 16:17 HH [email or web address]) Hot Pack/Cold Pack Treatment moist heat Location L hip adductors Patient Position Hooklying Treatment Duration (minutes) 10 Patient Tolerance Good PT-OP-S Aquatic Treatment Start: 09/17/19 18:00 Freq: Status: Active Protocol: Document 11/21/19 11:45 LJ (Rec: 11/21/19 17:24 LJ [email or web address]) Aquatics Treatment Pool Entry/Exit Pool Entry/Exit Method Lift Assistance Minimal Assistance,Moderate Assistance Comments min A transfering to right onto pool lift, mod A lift to w/c left Water Walking start stop walking forward and backward Water Level Chest Level Walking Equipment SPC Level of Assistance Contact Guard Assistance, Minimal Assistance,Moderate Assistance,Verbal Cues forward with SPC Water Level Chest Level Walking Equipment wet vest, LUE floatation Level of Assistance Standby Assistance,Contact Guard Assistance,Minimal Assistance,Verbal Cues Marching Water Level Chest Level Walking Equipment wet vest, LUE floatation Level of Assistance Standby Assistance,Contact Guard Assistance,Minimal Assistance,Verbal Cues Sideways Water Level Chest Level Level of Assistance Minimal Assistance,Moderate Assistance,Verbal Cues Comments wet vest, arm floats LUE Forwards Water Level Chest Level Walking Equipment wet vest Level of Assistance Standby Assistance,Contact Guard Assistance,Minimal Assistance,Verbal Cues Lower Extremity Exercises jumping Body Position Standing Water Level Chest Level Reps/Duration 12x Comments CGA SLS with op leg swing flex ext Body Position Standing Water Level Chest Level Equipment Small Noodle Reps/Duration 10 ea Comments bracing LLE knee hip extension Water Level Chest Level Equipment wet vest, blue float Reps/Duration 10x bilat squats Body Position Standing Water Level Chest Level Equipment 8' box Reps/Duration 15x Comments holding pool edge Lower Extremity Stretches hip flexors Details at wall Body Position Standing Water Level Waist Level Reps/Duration 2x45 Comments manually assisted HS Details at wall Body Position Standing Water Level Waist Level Equipment wet vest Reps/Duration 2x45 Balance step ups Details step ups/down using boxes Body Position Standing Water Level Waist Level Equipment 8 boxes Comments mod verbal cues for coordination weight shifting Body Position Standing Water Level Waist Level Equipment wet vest Comments CG-mod assist standing bal Body Position Standing Water Level Waist Level Equipment wet vest Comments CG to mod assist PT-OP-T Assessment and Plan Start: 09/17/19 18:00 Freq: Status: Active Protocol: Document 11/21/19 11:45 ADA (Rec: 11/21/19 17:24 LJ [email or web address]) Physical Therapy Assessment Rehab Potential Rehabilitation Potential Fair Evaluation Complexity Number of Personal Factors/Comorbidities 3 or More Number of Body Systems Impaired 4 or More Clinical Presentation at Evaluation Unstable Impairments Impairments Activity Tolerance,Balance, Coordination,Functional Activities,Functional Mobility ,Gait,Pain,ROM,Sensation, Strength,Tone,Transfers Goals Four Impairment Pt demonstrates strength impairment throughout left LE Soft Sugar Supervisor Goal (LTG) Pt to display MMT >3+/5 through L LE LTG Duration 11/18/19 Three Impairment Pt SBA for transfers and bed mobility d/t Left Neglect Alf Goal (LTG) Pt to demonstrate independent transfers and bed mobility with an ability to address left LE and UE 80% of the time Two Impairment Pt ambulates 120' SBA with hemiwalker Short Term Goal (STG) Pt to ambulate 200' Independently with hemiwalker to improve independence at home and reduce reliance on his wheelchair STG Duration 10/18/19 Soft Sugar Supervisor Goal (LTG) Pt to ambulate 300' SBA /c SPC LTG Duration 11/18/19 One Impairment Pt does not have an appropriate home exercise program Short Term Goal (STG) Pt to be independent and compliant with an appropriate HEP STG Duration 10/18/19 Assessment Summary Assessment Pt continues to perform very well in the , pool. His gait and balance has improved so he requires less assist and is capable of increased level of difficulty with performing exercises. With verbal and manual cueing of LLE pt is able to stand and balance in waist deep water. He is able to perform squats coming to full standing with minimal hand hold on wall. Additionally pt requires less assistance with transfers to/ from lift chair. Pt was able to do plyometric jumps in shallow water with CGA Physical Therapy Plan Frequency and Duration Frequency of Treatment 2x/Week Duration of Treatment 12 weeks Plan of Care Start Date 09/17/19 Plan of Care End Date 12/10/19 Therapeutic Interventions Therapeutic Interventions Aquatic Therapy,Balance Training,Coordination Training ,Gait Training,Home Exercise Program,Manual Therapy, Neuromuscular Re-education, Patient/Caregiver Education, Self-Care/Home Management, Therapeutic Activities, Therapeutic Exercises Modalities Cold Pack/Ice Massage,Electric Stimulation,Hot Packs, Ultrasound Next Visit Focus/Plan Next Note Type Treatment Note Next Visit Plan Continue strengthening, balance and gait training with NMR. Move into deep water for cardio training and stretching of LEs in particular
--- NOTE | 2019-11-26 16:10 | PT.OTN ---
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) Physical Therapy Treatment Note PT-OP-A Visit Information Start: 09/17/19 18:00 Freq: Status: Active Protocol: Document 11/26/19 15:15 DCW (Rec: 11/26/19 16:10 DCW [id number]) Out-Patient Physical Therapy Visit Information Visit Information Visit Type Treatment Note Visit Start Time 15:15 Visit Stop Time 16:00 Total Visit Minutes 45 Visit Number 18 Number of WEAPONS SYSTEM INSTRUMENT MECHANIC Visits 0 Evaluation Information Evaluation Date 09/17/19 PT-OP-B Current Condition Start: 09/17/19 18:00 Freq: Status: Active Protocol: Document 09/17/19 12:00 DCW (Rec: 09/18/19 10:29 DCW [id number]) Current Condition History of Current Condition Onset Date 04/14/19 Current Complaints Hemiparesis secondary to CVA History of Current Condition Pt is a 69 year old male presenting to skilled outpatient physical therapy with left-side neglect, hemiparesis, loss of independence, and difficulty walking following an intraparenchymal hemorrhage on 04/14/19. Pt was transferred from [facility] to [facility], where a craniotomy was performed on 04/16/19. Pt completed 7 weeks of rehab/ recovery at [facility], and then underwent a second surgery on 06/26/19 to replace the skull fragment. Pt was then at an acute rehab facility 06/30-07/18/19, and since then has been receiving home health physical therapy. Pt presents today with limited left-sided function, left visual and physical neglect, difficulty with transfers, decreased activity tolerance, decreased gait, and many other secondary effects following his CVA. Pt has been working on ambulation with a trent walker with home health, and his states he has walked around 100' a few times, but always with a therapist, as she does not feel comfortable walking with him yet. Pt exclusively gets around at time of evaluation in a manual wheelchair. Pt's transfers have been going fairly well, with his caregivers performing CGA, however pt will occasionally need assistance with placement of his left UE and LE due to neglect. Pt's biggest complaint at the moment is leg pain, his reports they have tried PT, Massage, CBD il, Tylenol, Oxycodine, and Gabapentin, all with minimal benefit. Prior to CVA, pt was fully independent in all activities. Pt and have garegivers 8 hrs a day for assistance. Prior Treatments and Tests Craniotomy 04/16/19, Acute rehab, Skull fragment replacement 06/26/19, home health PT Prior Functional Status Baseline Function- ADL's Independent Baseline Function- Mobility Independent PT-OP-C Subjective Start: 09/17/19 18:00 Freq: Status: Active Protocol: Document 11/26/19 15:15 DCW (Rec: 11/26/19 16:10 DCW [id number]) OP-PT Subjective Patient Comments Patient Comments Pt reports some LE stiffness and pain today, due to the weather. PT-OP-G Mobility & Gait Start: 09/17/19 18:00 Freq: Status: Active Protocol: Document 09/17/19 12:00 DCW (Rec: 09/18/19 10:29 DCW [id number]) OP Mobility Evaluation Bed Mobility Rolling Rolling torso largely SBA, however requires Min A x1 for positioning of L UE secondary to neglect Supine to and from Sit SBA Transfers Sit to Stand SBA /c gait belt, occasional assistance required for positioning of left foot Bed to Chair Transfers Stand pivot transfer CGA /c gait belt when transfersing in both directions OP Gait Assessment Gait Gait Assistance Required: Contact Guard Assist Distance (Feet) 120 Able to Maintain Weight Bearing Status Yes During Gait Assistive Devices Assistive Device Gait Belt,Trent Walker Orthotic/Prosthetic Devices or Brace: No Gait Deviations General Gait Pattern Antalgic,Ataxic,Decreased Stride Length,Decreased Feet Clearance,Flexed Trunk,Lateral Trunk Lean,Step-to Gait Factors Limiting Gait Function Factors Limiting Gait Function Abnormal Tonal Influences, Decreased Activity Tolerance, Decreased Sensation,Decreased Strength,Incoordination,Poor Balance,Poor Safety Awareness PT-OP-H Neuro Start: 09/17/19 18:00 Freq: Status: Active Protocol: Document 09/17/19 12:00 DCW (Rec: 09/18/19 17:29 DCW [id number]) Sensation Evaluation Gross Sensation Gross Sensation Left UE Impaired,Left LE Impaired Sensation Description Paresthesia,Numbness,Burning, Heaviness,Pain Location Details Left Leg Light Touch Absent Sharp/Dull Absent Deep Pressure Impaired Proprioception (Position) Absent Kinesthesia (Movement) Impaired Deep Tendon Reflex & Clonus Assessment Deep Tendon Reflex Left Achilles Deep Tendon Reflex 3+ Normal But Brisk Left Patellar Deep Tendon Reflex 3+ Normal But Brisk Muscle Tone Tone Assessment Left Lower Extremity Flexor Tone Description Severe Hypotonicity PT-OP-M Strength Start: 09/17/19 18:00 Freq: Status: Active Protocol: Document 09/17/19 12:00 DCW (Rec: 09/18/19 17:29 DCW [id number]) Hip Strength Hip Manual Muscle Testing Right Flexion (L2) 4 Good Extension (S1) 4 Good Abduction 5 Normal Adduction 5 Normal External Rotation 5 Normal Internal Rotation 5 Normal Left Flexion (L2) 3 Fair Extension (S1) 2- Poor- Abduction 2+ Poor+ Adduction 3+ Fair+ External Rotation 3- Fair- Internal Rotation 2- Poor- Reason Not Measured Muscle Tone,Pain Knee Strength Knee Manual Muscle Testing Right Flexion (S2) 5 Normal Extension (L3) 5 Normal Left Flexion (S2) 3- Fair- Extension (L3) 3+ Fair+ Reason Not Measured Muscle Tone,Pain Ankle/Foot Strength Ankle and Foot Manual Muscle Testing Right Dorsiflexion (L4) 5 Normal Plantarflexion (S1) 5 Normal Left Dorsiflexion (L4) 4- Good- Plantarflexion (S1) 3+ Fair+ PT-OP-Q Treatments Start: 09/17/19 18:00 Freq: Status: Active Protocol: Document 11/26/19 15:15 DCW (Rec: 11/26/19 16:10 DCW [id number]) Gym Equipment Shuttle Recovery Unilateral Heel Raises Details Left Resistance 25# Unilateral Squats Details Left Resistance 50# Shuttle Recovery Platform Stable Bilateral Squats Resistance 100# Shuttle Recovery Platform Stable Gait Training Gait Activity No AD Description Amb /s AD Device Used None Level of Assistance SBA Distance/Duration 20' Steps Description Ascend/Descend Device Used R rail Level of Assistance CGA Surface 6 Comments Step-through WBQC Device Used WBQC on R UE Level of Assistance SBA Surface ground level Distance/Duration 190' Comments heel-toe on left foot, trial of AFO PT-OP-R Modalities Start: 09/17/19 18:00 Freq: Status: Active Protocol: Document 10/10/19 13:45 HH (Rec: 10/10/19 16:17 HH [id number]) Hot Pack/Cold Pack Treatment moist heat Location L hip adductors Patient Position Hooklying Treatment Duration (minutes) 10 Patient Tolerance Good PT-OP-S Aquatic Treatment Start: 09/17/19 18:00 Freq: Status: Active Protocol: Document 11/21/19 11:45 LJ (Rec: 11/21/19 17:24 LJ [id number]) Aquatics Treatment Pool Entry/Exit Pool Entry/Exit Method Lift Assistance Minimal Assistance,Moderate Assistance Comments min A transfering to right onto pool lift, mod A lift to w/c left Water Walking start stop walking forward and backward Water Level Chest Level Walking Equipment SPC Level of Assistance Contact Guard Assistance, Minimal Assistance,Moderate Assistance,Verbal Cues forward with SPC Water Level Chest Level Walking Equipment wet vest, LUE floatation Level of Assistance Standby Assistance,Contact Guard Assistance,Minimal Assistance,Verbal Cues Marching Water Level Chest Level Walking Equipment wet vest, LUE floatation Level of Assistance Standby Assistance,Contact Guard Assistance,Minimal Assistance,Verbal Cues Sideways Water Level Chest Level Level of Assistance Minimal Assistance,Moderate Assistance,Verbal Cues Comments wet vest, arm floats LUE Forwards Water Level Chest Level Walking Equipment wet vest Level of Assistance Standby Assistance,Contact Guard Assistance,Minimal Assistance,Verbal Cues Lower Extremity Exercises jumping Body Position Standing Water Level Chest Level Reps/Duration 12x Comments CGA SLS with op leg swing flex ext Body Position Standing Water Level Chest Level Equipment Small Noodle Reps/Duration 10 ea Comments bracing LLE knee hip extension Water Level Chest Level Equipment wet vest, blue float Reps/Duration 10x bilat squats Body Position Standing Water Level Chest Level Equipment 8' box Reps/Duration 15x Comments holding pool edge Lower Extremity Stretches hip flexors Details at wall Body Position Standing Water Level Waist Level Reps/Duration 2x45 Comments manually assisted HS Details at wall Body Position Standing Water Level Waist Level Equipment wet vest Reps/Duration 2x45 Balance step ups Details step ups/down using boxes Body Position Standing Water Level Waist Level Equipment 8 boxes Comments mod verbal cues for coordination weight shifting Body Position Standing Water Level Waist Level Equipment wet vest Comments CG-mod assist standing bal Body Position Standing Water Level Waist Level Equipment wet vest Comments CG to mod assist PT-OP-T Assessment and Plan Start: 09/17/19 18:00 Freq: Status: Active Protocol: Document 11/26/19 15:15 DCW (Rec: 11/26/19 16:10 DCW [id number]) Physical Therapy Assessment Impairments Impairments Activity Tolerance,Balance, Coordination,Functional Activities,Functional Mobility ,Gait,Pain,ROM,Sensation, Strength,Tone,Transfers Goals Four Impairment Pt demonstrates strength impairment throughout left LE Director [employer] Goal (LTG) Pt to display MMT >3+/5 through L LE LTG Duration 11/18/19 Three Impairment Pt SBA for transfers and bed mobility d/t Left Neglect Group Home Goal (LTG) Pt to demonstrate independent transfers and bed mobility with an ability to address left LE and UE 80% of the time Two Impairment Pt ambulates 120' SBA with hemiwalker Short Term Goal (STG) Pt to ambulate 200' Independently with hemiwalker to improve independence at home and reduce reliance on his wheelchair STG Duration 10/18/19 Group Home Goal (LTG) Pt to ambulate 300' SBA /c SPC LTG Duration 11/18/19 One Impairment Pt does not have an appropriate home exercise program Short Term Goal (STG) Pt to be independent and compliant with an appropriate HEP STG Duration 10/18/19 Assessment Summary Assessment Pt performed AD-free ambulation today for the first time, able to ambulate 20 SBA. Pt also cleared to attempt ambulation with a LBQC at home, with assistance. Physical Therapy Plan Frequency and Duration Frequency of Treatment 2x/Week Duration of Treatment 12 weeks Plan of Care Start Date 09/17/19 Plan of Care End Date 12/10/19 Therapeutic Interventions Therapeutic Interventions Aquatic Therapy,Balance Training,Coordination Training ,Gait Training,Home Exercise Program,Manual Therapy, Neuromuscular Re-education, Patient/Caregiver Education, Self-Care/Home Management, Therapeutic Activities, Therapeutic Exercises Modalities Cold Pack/Ice Massage,Electric Stimulation,Hot Packs, Ultrasound Next Visit Focus/Plan Next Note Type Treatment Note Next Visit Plan Continue strengthening, balance and gait training with NMR. Move into deep water for cardio training and stretching of LEs in particular
--- NOTE | 2019-11-28 15:51 | PT.OTN ---
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) Physical Therapy Treatment Note PT-OP-A Visit Information Start: 09/17/19 18:00 Freq: Status: Active Protocol: Document 11/28/19 11:45 LJ (Rec: 11/28/19 15:51 LJ [email or web address]) Out-Patient Physical Therapy Visit Information Visit Information Visit Type Treatment Note Visit Start Time 11:45 Visit Stop Time 12:30 Total Visit Minutes 45 Visit Number 19 Number of LINING BRUSHER Visits 1 Evaluation Information Evaluation Date 09/17/19 PT-OP-B Current Condition Start: 09/17/19 18:00 Freq: Status: Active Protocol: Document 09/17/19 12:00 DCW (Rec: 09/18/19 10:29 DCW [id number]) Current Condition History of Current Condition Onset Date 04/14/19 Current Complaints Hemiparesis secondary to CVA History of Current Condition Pt is a 69 year old male presenting to skilled outpatient physical therapy with left-side neglect, hemiparesis, loss of independence, and difficulty walking following an intraparenchymal hemorrhage on 04/14/19. Pt was transferred from [facility] to [facility], where a craniotomy was performed on 04/16/19. Pt completed 7 weeks of rehab/ recovery at [facility], and then underwent a second surgery on 06/26/19 to replace the skull fragment. Pt was then at an acute rehab facility 06/30-07/18/19, and since then has been receiving home health physical therapy. Pt presents today with limited left-sided function, left visual and physical neglect, difficulty with transfers, decreased activity tolerance, decreased gait, and many other secondary effects following his CVA. Pt has been working on ambulation with a trent walker with home health, and his states he has walked around 100' a few times, but always with a therapist, as she does not feel comfortable walking with him yet. Pt exclusively gets around at time of evaluation in a manual wheelchair. Pt's transfers have been going fairly well, with his caregivers performing CGA, however pt will occasionally need assistance with placement of his left UE and LE due to neglect. Pt's biggest complaint at the moment is leg pain, his reports they have tried PT, Massage, CBD il, Tylenol, Oxycodine, and Gabapentin, all with minimal benefit. Prior to CVA, pt was fully independent in all activities. Pt and have garegivers 8 hrs a day for assistance. Prior Treatments and Tests Craniotomy 04/16/19, Acute rehab, Skull fragment replacement 06/26/19, home health PT Prior Functional Status Baseline Function- ADL's Independent Baseline Function- Mobility Independent PT-OP-C Subjective Start: 09/17/19 18:00 Freq: Status: Active Protocol: Document 11/28/19 11:45 LJ (Rec: 11/28/19 15:51 LJ [email or web address]) OP-PT Subjective Patient Comments Patient Comments Pt pleased at his progress in clinic. PT-OP-G Mobility & Gait Start: 09/17/19 18:00 Freq: Status: Active Protocol: Document 09/17/19 12:00 DCW (Rec: 09/18/19 10:29 DCW [id number]) OP Mobility Evaluation Bed Mobility Rolling Rolling torso largely SBA, however requires Min A x1 for positioning of L UE secondary to neglect Supine to and from Sit SBA Transfers Sit to Stand SBA /c gait belt, occasional assistance required for positioning of left foot Bed to Chair Transfers Stand pivot transfer CGA /c gait belt when transfersing in both directions OP Gait Assessment Gait Gait Assistance Required: Contact Guard Assist Distance (Feet) 120 Able to Maintain Weight Bearing Status Yes During Gait Assistive Devices Assistive Device Gait Belt,Trent Walker Orthotic/Prosthetic Devices or Brace: No Gait Deviations General Gait Pattern Antalgic,Ataxic,Decreased Stride Length,Decreased Feet Clearance,Flexed Trunk,Lateral Trunk Lean,Step-to Gait Factors Limiting Gait Function Factors Limiting Gait Function Abnormal Tonal Influences, Decreased Activity Tolerance, Decreased Sensation,Decreased Strength,Incoordination,Poor Balance,Poor Safety Awareness PT-OP-H Neuro Start: 09/17/19 18:00 Freq: Status: Active Protocol: Document 09/17/19 12:00 DCW (Rec: 09/18/19 17:29 DCW [id number]) Sensation Evaluation Gross Sensation Gross Sensation Left UE Impaired,Left LE Impaired Sensation Description Paresthesia,Numbness,Burning, Heaviness,Pain Location Details Left Leg Light Touch Absent Sharp/Dull Absent Deep Pressure Impaired Proprioception (Position) Absent Kinesthesia (Movement) Impaired Deep Tendon Reflex & Clonus Assessment Deep Tendon Reflex Left Achilles Deep Tendon Reflex 3+ Normal But Brisk Left Patellar Deep Tendon Reflex 3+ Normal But Brisk Muscle Tone Tone Assessment Left Lower Extremity Flexor Tone Description Severe Hypotonicity PT-OP-M Strength Start: 09/17/19 18:00 Freq: Status: Active Protocol: Document 09/17/19 12:00 DCW (Rec: 09/18/19 17:29 [facility] [id number]) Hip Strength Hip Manual Muscle Testing Right Flexion (L2) 4 Good Extension (S1) 4 Good Abduction 5 Normal Adduction 5 Normal External Rotation 5 Normal Internal Rotation 5 Normal Left Flexion (L2) 3 Fair Extension (S1) 2- Poor- Abduction 2+ Poor+ Adduction 3+ Fair+ External Rotation 3- Fair- Internal Rotation 2- Poor- Reason Not Measured Muscle Tone,Pain Knee Strength Knee Manual Muscle Testing Right Flexion (S2) 5 Normal Extension (L3) 5 Normal Left Flexion (S2) 3- Fair- Extension (L3) 3+ Fair+ Reason Not Measured Muscle Tone,Pain Ankle/Foot Strength Ankle and Foot Manual Muscle Testing Right Dorsiflexion (L4) 5 Normal Plantarflexion (S1) 5 Normal Left Dorsiflexion (L4) 4- Good- Plantarflexion (S1) 3+ Fair+ PT-OP-Q Treatments Start: 09/17/19 18:00 Freq: Status: Active Protocol: Document 11/26/19 15:15 DCW (Rec: 11/26/19 16:10 DCW [id number]) Gym Equipment Shuttle Recovery Unilateral Heel Raises Details Left Resistance 25# Unilateral Squats Details Left Resistance 50# Shuttle Recovery Platform Stable Bilateral Squats Resistance 100# Shuttle Recovery Platform Stable Gait Training Gait Activity No AD Description Amb /s AD Device Used None Level of Assistance SBA Distance/Duration 20' Steps Description Ascend/Descend Device Used R rail Level of Assistance CGA Surface 6 Comments Step-through WBQC Device Used WBQC on R UE Level of Assistance SBA Surface ground level Distance/Duration 190' Comments heel-toe on left foot, trial of AFO PT-OP-R Modalities Start: 09/17/19 18:00 Freq: Status: Active Protocol: Document 10/10/19 13:45 HH (Rec: 10/10/19 16:17 HH [email or web address]) Hot Pack/Cold Pack Treatment moist heat Location L hip adductors Patient Position Hooklying Treatment Duration (minutes) 10 Patient Tolerance Good PT-OP-S Aquatic Treatment Start: 09/17/19 18:00 Freq: Status: Active Protocol: Document 11/28/19 11:45 LJ (Rec: 11/28/19 15:51 LJ [email or web address]) Aquatics Treatment Pool Entry/Exit Pool Entry/Exit Method Lift Assistance Minimal Assistance,Moderate Assistance Comments min A transfering to right onto pool lift, mod A lift to w/c left Water Walking Backwards Water Level Chest Level Walking Equipment vest, lg noodle Level of Assistance Contact Guard Assistance, Minimal Assistance,Verbal Cues Comments manual assist for LLE with therapist foot start stop walking forward and backward Water Level Chest Level Walking Equipment vest Level of Assistance Contact Guard Assistance, Minimal Assistance,Moderate Assistance,Verbal Cues Comments yellow corcle float and wrap on LUE Marching Water Level Chest Level Walking Equipment wet vest, LUE floatation, #3. 75 Level of Assistance Standby Assistance,Contact Guard Assistance,Minimal Assistance,Verbal Cues Sideways Water Level Chest Level Walking Equipment see above Level of Assistance Standby Assistance,Contact Guard Assistance,Minimal Assistance,Verbal Cues Comments wet vest, arm floats LUE Forwards Water Level Chest Level Walking Equipment wet vest Level of Assistance Standby Assistance,Contact Guard Assistance,Minimal Assistance,Verbal Cues Lower Extremity Exercises knee extensions Details seated in lift chair Equipment #3.75 Reps/Duration 12 B SLS Details at wall with handhold Body Position Standing Water Level Chest Level Equipment vest, #3.75 Reps/Duration 2 min Comments verbal and manual cueing and assist bacing at knee SLS with op leg swing flex ext Body Position Standing Water Level Chest Level Equipment Small Noodle Reps/Duration 10 ea Comments bracing LLE knee hip extension Water Level Chest Level Equipment wet vest, blue float Reps/Duration 10x bilat HS curls Water Level Chest Level Equipment wet vest, blue float Reps/Duration 20 bilat Comments pt left hand hold on therapist arm marching at wall Water Level Chest Level Equipment wet vest Reps/Duration 1 min Lower Extremity Stretches hip flexors Details at wall Body Position Standing Water Level Waist Level Reps/Duration 2x45 Comments manually assisted HS Details at wall Body Position Standing Water Level Waist Level Equipment wet vest Reps/Duration 2x45 Upper Extremity Exercises breastroke UE's Body Position Standing Water Level Chest Level Reps/Duration 2 min Comments during walking and deep water hor ab/ad Body Position Standing Water Level Chest Level Reps/Duration 2 min Comments during walking and deep water Balance weight shifting Body Position Standing Water Level Waist Level Equipment wet vest Comments CG assist [place] Activities [place] Activities Bicycle Equipment wet vest,[place] float, 3# each LE Duration 8 min Comments pt moving in circles both directions using only UEs then only LEs PT-OP-T Assessment and Plan Start: 09/17/19 18:00 Freq: Status: Active Protocol: Document 11/28/19 11:45 ADA (Rec: 11/28/19 15:51 LJ [email or web address]) Physical Therapy Assessment Rehab Potential Rehabilitation Potential Fair Evaluation Complexity Number of Personal Factors/Comorbidities 3 or More Number of Body Systems Impaired 4 or More Clinical Presentation at Evaluation Unstable Impairments Impairments Activity Tolerance,Balance, Coordination,Functional Activities,Functional Mobility ,Gait,Pain,ROM,Sensation, Strength,Tone,Transfers Goals Four Impairment Pt demonstrates strength impairment throughout left LE Long-Term Goal (LTG) Pt to display MMT >3+/5 through L LE LTG Duration 11/18/19 Three Impairment Pt SBA for transfers and bed mobility d/t Left Neglect Long-Term Goal (LTG) Pt to demonstrate independent transfers and bed mobility with an ability to address left LE and UE 80% of the time Two Impairment Pt ambulates 120' SBA with hemiwalker Short Term Goal (STG) Pt to ambulate 200' Independently with hemiwalker to improve independence at home and reduce reliance on his wheelchair STG Duration 10/18/19 [employer] L[employer] Goal (LTG) Pt to ambulate 300' SBA /c SPC LTG Duration 11/18/19 One Impairment Pt does not have an appropriate home exercise program Short Term Goal (STG) Pt to be independent and compliant with an appropriate HEP STG Duration 10/18/19 Assessment Summary Assessment Pt balance, ambulation, and coordination improving. Less frequent scissor gait pattern. Pt better able to walk across pool in straight line for cues to attend to left side. LUE wtrength and use improving . Physical Therapy Plan Frequency and Duration Frequency of Treatment 2x/Week Duration of Treatment 12 weeks Plan of Care Start Date 09/17/19 Plan of Care End Date 12/10/19 Therapeutic Interventions Therapeutic Interventions Aquatic Therapy,Balance Training,Coordination Training ,Gait Training,Home Exercise Program,Manual Therapy, Neuromuscular Re-education, Patient/Caregiver Education, Self-Care/Home Management, Therapeutic Activities, Therapeutic Exercises Modalities Cold Pack/Ice Massage,Electric Stimulation,Hot Packs, Ultrasound Next Visit Focus/Plan Next Note Type Treatment Note Next Visit Plan Continue strengthening, balance and gait training with NMR. Move into deep water for cardio training and core stabilization. Revisit step ups/down with boxes and add obstacle course when appropriate.
--- NOTE | 2019-12-04 16:01 | PT.OTN ---
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) Physical Therapy Treatment Note PT-OP-A Visit Information Start: 09/17/19 18:00 Freq: Status: Active Protocol: Document 12/04/19 15:15 DCW (Rec: 12/04/19 16:01 DCW [id number]) Out-Patient Physical Therapy Visit Information Visit Information Visit Type Treatment Note Visit Start Time 15:15 Visit Stop Time 16:00 Total Visit Minutes 45 Visit Number 20 Number of DIE CASTING MACHINE MAINTAINER Visits 0 Evaluation Information Evaluation Date 09/17/19 PT-OP-B Current Condition Start: 09/17/19 18:00 Freq: Status: Active Protocol: Document 09/17/19 12:00 DCW (Rec: 09/18/19 10:29 DCW [id number]) Current Condition History of Current Condition Onset Date 04/14/19 Current Complaints Hemiparesis secondary to CVA History of Current Condition Pt is a 69 year old male presenting to skilled outpatient physical therapy with left-side neglect, hemiparesis, loss of independence, and difficulty walking following an intraparenchymal hemorrhage on 04/14/19. Pt was transferred from [facility] to [facility], where a craniotomy was performed on 04/16/19. Pt completed 7 weeks of rehab/ recovery at [facility], and then underwent a second surgery on 06/26/19 to replace the skull fragment. Pt was then at an acute rehab facility 06/30-07/18/19, and since then has been receiving home health physical therapy. Pt presents today with limited left-sided function, left visual and physical neglect, difficulty with transfers, decreased activity tolerance, decreased gait, and many other secondary effects following his CVA. Pt has been working on ambulation with a trent walker with home health, and his states he has walked around 100' a few times, but always with a therapist, as she does not feel comfortable walking with him yet. Pt exclusively gets around at time of evaluation in a manual wheelchair. Pt's transfers have been going fairly well, with his caregivers performing CGA, however pt will occasionally need assistance with placement of his left UE and LE due to neglect. Pt's biggest complaint at the moment is leg pain, his reports they have tried PT, Massage, CBD il, Tylenol, Oxycodine, and Gabapentin, all with minimal benefit. Prior to CVA, pt was fully independent in all activities. Pt and have garegivers 8 hrs a day for assistance. Prior Treatments and Tests Craniotomy 04/16/19, Acute rehab, Skull fragment replacement 06/26/19, home health PT Prior Functional Status Baseline Function- ADL's Independent Baseline Function- Mobility Independent PT-OP-C Subjective Start: 09/17/19 18:00 Freq: Status: Active Protocol: Document 12/04/19 15:15 DCW (Rec: 12/04/19 16:01 DCW [id number]) OP-PT Subjective Patient Comments Patient Comments Pt brings in his Quad cane from home to make sure it fits correctly. PT-OP-G Mobility & Gait Start: 09/17/19 18:00 Freq: Status: Active Protocol: Document 09/17/19 12:00 DCW (Rec: 09/18/19 10:29 DCW [id number]) OP Mobility Evaluation Bed Mobility Rolling Rolling torso largely SBA, however requires Min A x1 for positioning of L UE secondary to neglect Supine to and from Sit SBA Transfers Sit to Stand SBA /c gait belt, occasional assistance required for positioning of left foot Bed to Chair Transfers Stand pivot transfer CGA /c gait belt when transfersing in both directions OP Gait Assessment Gait Gait Assistance Required: Contact Guard Assist Distance (Feet) 120 Able to Maintain Weight Bearing Status Yes During Gait Assistive Devices Assistive Device Gait Belt,Trent Walker Orthotic/Prosthetic Devices or Brace: No Gait Deviations General Gait Pattern Antalgic,Ataxic,Decreased Stride Length,Decreased Feet Clearance,Flexed Trunk,Lateral Trunk Lean,Step-to Gait Factors Limiting Gait Function Factors Limiting Gait Function Abnormal Tonal Influences, Decreased Activity Tolerance, Decreased Sensation,Decreased Strength,Incoordination,Poor Balance,Poor Safety Awareness PT-OP-H Neuro Start: 09/17/19 18:00 Freq: Status: Active Protocol: Document 09/17/19 12:00 DCW (Rec: 09/18/19 17:29 DCW [id number]) Sensation Evaluation Gross Sensation Gross Sensation Left UE Impaired,Left LE Impaired Sensation Description Paresthesia,Numbness,Burning, Heaviness,Pain Location Details Left Leg Light Touch Absent Sharp/Dull Absent Deep Pressure Impaired Proprioception (Position) Absent Kinesthesia (Movement) Impaired Deep Tendon Reflex & Clonus Assessment Deep Tendon Reflex Left Achilles Deep Tendon Reflex 3+ Normal But Brisk Left Patellar Deep Tendon Reflex 3+ Normal But Brisk Muscle Tone Tone Assessment Left Lower Extremity Flexor Tone Description Severe Hypotonicity PT-OP-M Strength Start: 09/17/19 18:00 Freq: Status: Active Protocol: Document 09/17/19 12:00 DCW (Rec: 09/18/19 17:29 NMW [id number]) Hip Strength Hip Manual Muscle Testing Right Flexion (L2) 4 Good Extension (S1) 4 Good Abduction 5 Normal Adduction 5 Normal External Rotation 5 Normal Internal Rotation 5 Normal Left Flexion (L2) 3 Fair Extension (S1) 2- Poor- Abduction 2+ Poor+ Adduction 3+ Fair+ External Rotation 3- Fair- Internal Rotation 2- Poor- Reason Not Measured Muscle Tone,Pain Knee Strength Knee Manual Muscle Testing Right Flexion (S2) 5 Normal Extension (L3) 5 Normal Left Flexion (S2) 3- Fair- Extension (L3) 3+ Fair+ Reason Not Measured Muscle Tone,Pain Ankle/Foot Strength Ankle and Foot Manual Muscle Testing Right Dorsiflexion (L4) 5 Normal Plantarflexion (S1) 5 Normal Left Dorsiflexion (L4) 4- Good- Plantarflexion (S1) 3+ Fair+ PT-OP-Q Treatments Start: 09/17/19 18:00 Freq: Status: Active Protocol: Document 12/04/19 15:15 DCW (Rec: 12/04/19 16:01 DCW [id number]) Gym Equipment Shuttle Recovery Unilateral Heel Raises Details Left Resistance 25# Unilateral Squats Details Left Resistance 50# Shuttle Recovery Platform Stable Bilateral Squats Resistance 100# Shuttle Recovery Platform Stable Therapeutic Exercises Standing Exercises Toe-taps Standing Exercise Name Toe-taps Side bilateral Resistance 5# Equipment Used 8 step Other Exercises Side-stepping Other Exercise Name Side-stepping at rail - [facility] Comments B UE use Gait Training Gait Activity No AD Description Amb /s AD Device Used None Level of Assistance SBA Distance/Duration 190' WBQC Device Used WBQC on R UE Level of Assistance SBA Surface ground level Distance/Duration 190' Comments heel-toe on left foot PT-OP-R Modalities Start: 09/17/19 18:00 Freq: Status: Active Protocol: Document 10/10/19 13:45 HH (Rec: 10/10/19 16:17 HH [id number]) Hot Pack/Cold Pack Treatment moist heat Location L hip adductors Patient Position Hooklying Treatment Duration (minutes) 10 Patient Tolerance Good PT-OP-S Aquatic Treatment Start: 09/17/19 18:00 Freq: Status: Active Protocol: Document 11/28/19 11:45 LJ (Rec: 11/28/19 15:51 LJ [id number]) Aquatics Treatment Pool Entry/Exit Pool Entry/Exit Method Lift Assistance Minimal Assistance,Moderate Assistance Comments min A transfering to right onto pool lift, mod A lift to w/c left Water Walking Backwards Water Level Chest Level Walking Equipment vest, lg noodle Level of Assistance Contact Guard Assistance, Minimal Assistance,Verbal Cues Comments manual assist for LLE with therapist foot start stop walking forward and backward Water Level Chest Level Walking Equipment vest Level of Assistance Contact Guard Assistance, Minimal Assistance,Moderate Assistance,Verbal Cues Comments yellow corcle float and wrap on LUE Marching Water Level Chest Level Walking Equipment wet vest, LUE floatation, #3. 75 Level of Assistance Standby Assistance,Contact Guard Assistance,Minimal Assistance,Verbal Cues Sideways Water Level Chest Level Walking Equipment see above Level of Assistance Standby Assistance,Contact Guard Assistance,Minimal Assistance,Verbal Cues Comments wet vest, arm floats LUE Forwards Water Level Chest Level Walking Equipment wet vest Level of Assistance Standby Assistance,Contact Guard Assistance,Minimal Assistance,Verbal Cues Lower Extremity Exercises knee extensions Details seated in lift chair Equipment #3.75 Reps/Duration 12 B SLS Details at wall with handhold Body Position Standing Water Level Chest Level Equipment vest, #3.75 Reps/Duration 2 min Comments verbal and manual cueing and assist bacing at knee SLS with op leg swing flex ext Body Position Standing Water Level Chest Level Equipment Small Noodle Reps/Duration 10 ea Comments bracing LLE knee hip extension Water Level Chest Level Equipment wet vest, blue float Reps/Duration 10x bilat HS curls Water Level Chest Level Equipment wet vest, blue float Reps/Duration 20 bilat Comments pt left hand hold on therapist arm marching at wall Water Level Chest Level Equipment wet vest Reps/Duration 1 min Lower Extremity Stretches hip flexors Details at wall Body Position Standing Water Level Waist Level Reps/Duration 2x45 Comments manually assisted HS Details at wall Body Position Standing Water Level Waist Level Equipment wet vest Reps/Duration 2x45 Upper Extremity Exercises breastroke UE's Body Position Standing Water Level Chest Level Reps/Duration 2 min Comments during walking and deep water hor ab/ad Body Position Standing Water Level Chest Level Reps/Duration 2 min Comments during walking and deep water Balance weight shifting Body Position Standing Water Level Waist Level Equipment wet vest Comments CG assist Burdette Activities Burdette Activities Bicycle Equipment wet vest,seneca float, 3# each LE Duration 8 min Comments pt moving in circles both directions using only UEs then only LEs PT-OP-T Assessment and Plan Start: 09/17/19 18:00 Freq: Status: Active Protocol: Document 12/04/19 15:15 DCW (Rec: 12/04/19 16:01 DCW [id number]) Physical Therapy Assessment Impairments Impairments Activity Tolerance,Balance, Coordination,Functional Activities,Functional Mobility ,Gait,Pain,ROM,Sensation, Strength,Tone,Transfers Goals Four Impairment Pt demonstrates strength impairment throughout left LE Fx Artist Goal (LTG) Pt to display MMT >3+/5 through L LE LTG Duration 12/20/19 - Improving Three Impairment Pt SBA for transfers and bed mobility d/t Left Neglect Fx Artist Goal (LTG) Pt to demonstrate independent transfers and bed mobility with an ability to address left LE and UE 80% of the time LTG Duration 12/20/19 - Improving Two Impairment Pt ambulates 120' SBA with hemiwalker Short Term Goal (STG) Pt to ambulate 200' Independently with hemiwalker to improve independence at home and reduce reliance on his wheelchair STG Duration 12/09/19 - Improving Alf Goal (LTG) Pt to ambulate 300' SBA /c SPC LTG Duration 12/20/19 - Improving One Impairment Pt does not have an appropriate home exercise program Short Term Goal (STG) Pt to be independent and compliant with an appropriate HEP STG Duration 12/09/19 Assessment Summary Assessment Pt gait, both with and without an assistive device, continues to improve, showing improved control of both his left arm and leg. Physical Therapy Plan Frequency and Duration Frequency of Treatment 2x/Week Duration of Treatment 12 weeks Plan of Care Start Date 09/17/19 Plan of Care End Date 12/10/19 Therapeutic Interventions Therapeutic Interventions Aquatic Therapy,Balance Training,Coordination Training ,Gait Training,Home Exercise Program,Manual Therapy, Neuromuscular Re-education, Patient/Caregiver Education, Self-Care/Home Management, Therapeutic Activities, Therapeutic Exercises Modalities Cold Pack/Ice Massage,Electric Stimulation,Hot Packs, Ultrasound Next Visit Focus/Plan Next Note Type Treatment Note Next Visit Plan Continue strengthening, balance and gait training with NMR. Move into deep water for cardio training and core stabilization. Revisit step ups/down with boxes and add obstacle course when appropriate.
--- NOTE | 2019-12-08 08:05 | PT.OTN ---
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) Physical Therapy Treatment Note PT-OP-A Visit Information Start: 09/17/19 18:00 Freq: Status: Active Protocol: Document 12/08/19 10:15 SAK (Rec: 12/09/19 08:05 SAK [id number]) Out-Patient Physical Therapy Visit Information Visit Information Visit Type Treatment Note Visit Start Time 10:15 Visit Stop Time 11:00 Total Visit Minutes 45 Visit Number 21 Number of BACK DIGGER OPERATOR Visits 0 Evaluation Information Evaluation Date 09/17/19 PT-OP-B Current Condition Start: 09/17/19 18:00 Freq: Status: Active Protocol: Document 09/17/19 12:00 DCW (Rec: 09/18/19 10:29 DCW [id number]) Current Condition History of Current Condition Onset Date 04/14/19 Current Complaints Hemiparesis secondary to CVA History of Current Condition Pt is a 69 year old male presenting to skilled outpatient physical therapy with left-side neglect, hemiparesis, loss of independence, and difficulty walking following an intraparenchymal hemorrhage on 04/14/19. Pt was transferred from [facility] to [facility], where a craniotomy was performed on 04/16/19. Pt completed 7 weeks of rehab/ recovery at [facility], and then underwent a second surgery on 06/26/19 to replace the skull fragment. Pt was then at an acute rehab facility 06/30-07/18/19, and since then has been receiving home health physical therapy. Pt presents today with limited left-sided function, left visual and physical neglect, difficulty with transfers, decreased activity tolerance, decreased gait, and many other secondary effects following his CVA. Pt has been working on ambulation with a trent walker with home health, and his states he has walked around 100' a few times, but always with a therapist, as she does not feel comfortable walking with him yet. Pt exclusively gets around at time of evaluation in a manual wheelchair. Pt's transfers have been going fairly well, with his caregivers performing CGA, however pt will occasionally need assistance with placement of his left UE and LE due to neglect. Pt's biggest complaint at the moment is leg pain, his reports they have tried PT, Massage, CBD il, Tylenol, Oxycodine, and Gabapentin, all with minimal benefit. Prior to CVA, pt was fully independent in all activities. Pt and have garegivers 8 hrs a day for assistance. Prior Treatments and Tests Craniotomy 04/16/19, Acute rehab, Skull fragment replacement 06/26/19, home health PT Prior Functional Status Baseline Function- ADL's Independent Baseline Function- Mobility Independent PT-OP-C Subjective Start: 09/17/19 18:00 Freq: Status: Active Protocol: Document 12/08/19 10:15 SAK (Rec: 12/09/19 08:05 SAK [id number]) OP-PT Subjective Patient Comments Patient Comments No new c/o. States he does some walking at home with his holding onto him. PT-OP-G Mobility & Gait Start: 09/17/19 18:00 Freq: Status: Active Protocol: Document 09/17/19 12:00 DCW (Rec: 09/18/19 10:29 DCW [id number]) OP Mobility Evaluation Bed Mobility Rolling Rolling torso largely SBA, however requires Min A x1 for positioning of L UE secondary to neglect Supine to and from Sit SBA Transfers Sit to Stand SBA /c gait belt, occasional assistance required for positioning of left foot Bed to Chair Transfers Stand pivot transfer CGA /c gait belt when transfersing in both directions OP Gait Assessment Gait Gait Assistance Required: Contact Guard Assist Distance (Feet) 120 Able to Maintain Weight Bearing Status Yes During Gait Assistive Devices Assistive Device Gait Belt,Trent Walker Orthotic/Prosthetic Devices or Brace: No Gait Deviations General Gait Pattern Antalgic,Ataxic,Decreased Stride Length,Decreased Feet Clearance,Flexed Trunk,Lateral Trunk Lean,Step-to Gait Factors Limiting Gait Function Factors Limiting Gait Function Abnormal Tonal Influences, Decreased Activity Tolerance, Decreased Sensation,Decreased Strength,Incoordination,Poor Balance,Poor Safety Awareness PT-OP-H Neuro Start: 09/17/19 18:00 Freq: Status: Active Protocol: Document 09/17/19 12:00 DCW (Rec: 09/18/19 17:29 DCW [id number]) Sensation Evaluation Gross Sensation Gross Sensation Left UE Impaired,Left LE Impaired Sensation Description Paresthesia,Numbness,Burning, Heaviness,Pain Location Details Left Leg Light Touch Absent Sharp/Dull Absent Deep Pressure Impaired Proprioception (Position) Absent Kinesthesia (Movement) Impaired Deep Tendon Reflex & Clonus Assessment Deep Tendon Reflex Left Achilles Deep Tendon Reflex 3+ Normal But Brisk Left Patellar Deep Tendon Reflex 3+ Normal But Brisk Muscle Tone Tone Assessment Left Lower Extremity Flexor Tone Description Severe Hypotonicity PT-OP-M Strength Start: 09/17/19 18:00 Freq: Status: Active Protocol: Document 09/17/19 12:00 DCW (Rec: 09/18/19 17:29 DEW [id number]) Hip Strength Hip Manual Muscle Testing Right Flexion (L2) 4 Good Extension (S1) 4 Good Abduction 5 Normal Adduction 5 Normal External Rotation 5 Normal Internal Rotation 5 Normal Left Flexion (L2) 3 Fair Extension (S1) 2- Poor- Abduction 2+ Poor+ Adduction 3+ Fair+ External Rotation 3- Fair- Internal Rotation 2- Poor- Reason Not Measured Muscle Tone,Pain Knee Strength Knee Manual Muscle Testing Right Flexion (S2) 5 Normal Extension (L3) 5 Normal Left Flexion (S2) 3- Fair- Extension (L3) 3+ Fair+ Reason Not Measured Muscle Tone,Pain Ankle/Foot Strength Ankle and Foot Manual Muscle Testing Right Dorsiflexion (L4) 5 Normal Plantarflexion (S1) 5 Normal Left Dorsiflexion (L4) 4- Good- Plantarflexion (S1) 3+ Fair+ PT-OP-Q Treatments Start: 09/17/19 18:00 Freq: Status: Active Protocol: Document 12/04/19 15:15 DCW (Rec: 12/04/19 16:01 DCW [id number]) Gym Equipment Shuttle Recovery Unilateral Heel Raises Details Left Resistance 25# Unilateral Squats Details Left Resistance 50# Shuttle Recovery Platform Stable Bilateral Squats Resistance 100# Shuttle Recovery Platform Stable Therapeutic Exercises Standing Exercises Toe-taps Standing Exercise Name Toe-taps Side bilateral Resistance 5# Equipment Used 8 step Other Exercises Side-stepping Other Exercise Name Side-stepping at rail - [facility] Comments B UE use Gait Training Gait Activity No AD Description Amb /s AD Device Used None Level of Assistance SBA Distance/Duration 190' WBQC Device Used WBQC on R UE Level of Assistance SBA Surface ground level Distance/Duration 190' Comments heel-toe on left foot PT-OP-R Modalities Start: 09/17/19 18:00 Freq: Status: Active Protocol: Document 10/10/19 13:45 HH (Rec: 10/10/19 16:17 HH [id number]) Hot Pack/Cold Pack Treatment moist heat Location L hip adductors Patient Position Hooklying Treatment Duration (minutes) 10 Patient Tolerance Good PT-OP-S Aquatic Treatment Start: 09/17/19 18:00 Freq: Status: Active Protocol: Document 12/08/19 10:15 SAK (Rec: 12/09/19 08:05 SAK [id number]) Aquatics Treatment Pool Entry/Exit Pool Entry/Exit Method Lift Assistance Minimal Assistance,Moderate Assistance Comments min A transfering to right onto pool lift, mod A lift to w/c left Water Walking Backwards Water Level Chest Level Walking Equipment vest Level of Assistance Contact Guard Assistance, Minimal Assistance,Verbal Cues start stop walking forward and backward Water Level Chest Level Walking Equipment vest Level of Assistance Contact Guard Assistance, Minimal Assistance,Moderate Assistance,Verbal Cues Comments yellow corcle float and wrap on LUE Marching Water Level Chest Level Walking Equipment wet vest Level of Assistance Standby Assistance,Contact Guard Assistance,Minimal Assistance,Verbal Cues Sideways Water Level Chest Level Walking Equipment wet vest Level of Assistance Standby Assistance,Contact Guard Assistance,Minimal Assistance,Verbal Cues Forwards Water Level Chest Level Walking Equipment wet vest Level of Assistance Standby Assistance,Contact Guard Assistance,Minimal Assistance,Verbal Cues Lower Extremity Exercises knee extensions Details seated in lift chair Equipment #3.75 Reps/Duration 12 B SLS Details PT manual assist at hips Body Position Standing Water Level Chest Level Equipment vest Reps/Duration 2 min squats Body Position Standing Water Level Chest Level Reps/Duration 15x Comments min to mod assist for balance Lower Extremity Stretches HS Details at wall Body Position Standing Water Level Waist Level Equipment wet vest Reps/Duration 2x30 Upper Extremity Exercises hor ab/ad Body Position Standing Water Level Chest Level Reps/Duration 2 min Comments min to mod assist for balance Spinal Exercises trunk rotation Body Position Standing Water Level Chest Level Equipment vest, long barbell in UE's to guide Comments patient cued for straight elbows, PT hand as target from behind, min-mod A Swim Strokes Breastroke Other Equipment Used wetvest Laps/Duration 4 min Comments CG to min assist , roll to back when fatigued Flutter Other Equipment Used vest, Laps/Duration 5 min Comments CG to min assist to correct roll to left Other supine to standing Water Level Chest Level Equipment wet vest Reps/Duration x5 Comments Bony with transition, ModA with stabilizing balance PT-OP-T Assessment and Plan Start: 09/17/19 18:00 Freq: Status: Active Protocol: Document 12/08/19 10:15 [facility] (Rec: 12/09/19 08:[address] [facility] [id number]) Physical Therapy Assessment Impairments Impairments Activity Tolerance,Balance, Coordination,Functional Activities,Functional Mobility ,Gait,Pain,ROM,Sensation, Strength,Tone,Transfers Goals Four Impairment Pt demonstrates strength impairment throughout left LE Stacker Driver Goal (LTG) Pt to display MMT >3+/5 through L LE LTG Duration 12/20/19 - Improving Three Impairment Pt SBA for transfers and bed mobility d/t Left Neglect Half-Way Goal (LTG) Pt to demonstrate independent transfers and bed mobility with an ability to address left LE and UE 80% of the time LTG Duration 12/20/19 - Improving Two Impairment Pt ambulates 120' SBA with hemiwalker Short Term Goal (STG) Pt to ambulate 200' Independently with hemiwalker to improve independence at home and reduce reliance on his wheelchair STG Duration 12/09/19 - Improving Half-Way Goal (LTG) Pt to ambulate 300' SBA /c SPC LTG Duration 12/20/19 - Improving One Impairment Pt does not have an appropriate home exercise program Short Term Goal (STG) Pt to be independent and compliant with an appropriate HEP STG Duration 12/09/19 Physical Therapy Plan Frequency and Duration Frequency of Treatment 2x/Week Duration of Treatment 12 weeks Plan of Care Start Date 09/17/19 Plan of Care End Date 12/10/19 Therapeutic Interventions Therapeutic Interventions Aquatic Therapy,Balance Training,Coordination Training ,Gait Training,Home Exercise Program,Manual Therapy, Neuromuscular Re-education, Patient/Caregiver Education, Self-Care/Home Management, Therapeutic Activities, Therapeutic Exercises Modalities Cold Pack/Ice Massage,Electric Stimulation,Hot Packs, Ultrasound Next Visit Focus/Plan Next Note Type Treatment Note Next Visit Plan Continue strengthening, balance and gait training with NMR. Move into deep water for cardio training and core stabilization. Revisit step ups/down with boxes and add obstacle course when appropriate.
--- NOTE | 2019-12-10 15:04 | PT.OTN ---
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) Physical Therapy Treatment Note PT-OP-A Visit Information Start: 09/17/19 18:00 Freq: Status: Active Protocol: Document 12/10/19 11:15 DCW (Rec: 12/10/19 15:04 DCW [id number]) Out-Patient Physical Therapy Visit Information Visit Information Visit Type Progress Note Visit Start Time 11:15 Visit Stop Time 12:00 Total Visit Minutes 45 Visit Number 22 Number of MOTION STUDY TECHNICIAN Visits 0 Evaluation Information Evaluation Date 09/17/19 PT-OP-B Current Condition Start: 09/17/19 18:00 Freq: Status: Active Protocol: Document 09/17/19 12:00 DCW (Rec: 09/18/19 10:29 DCW [id number]) Current Condition History of Current Condition Onset Date 04/14/19 Current Complaints Hemiparesis secondary to CVA History of Current Condition Pt is a 69 year old male presenting to skilled outpatient physical therapy with left-side neglect, hemiparesis, loss of independence, and difficulty walking following an intraparenchymal hemorrhage on 04/14/19. Pt was transferred from [facility] to [facility], where a craniotomy was performed on 04/16/19. Pt completed 7 weeks of rehab/ recovery at [facility], and then underwent a second surgery on 06/26/19 to replace the skull fragment. Pt was then at an acute rehab facility 06/30-07/18/19, and since then has been receiving home health physical therapy. Pt presents today with limited left-sided function, left visual and physical neglect, difficulty with transfers, decreased activity tolerance, decreased gait, and many other secondary effects following his CVA. Pt has been working on ambulation with a trent walker with home health, and his states he has walked around 100' a few times, but always with a therapist, as she does not feel comfortable walking with him yet. Pt exclusively gets around at time of evaluation in a manual wheelchair. Pt's transfers have been going fairly well, with his caregivers performing CGA, however pt will occasionally need assistance with placement of his left UE and LE due to neglect. Pt's biggest complaint at the moment is leg pain, his reports they have tried PT, Massage, CBD il, Tylenol, Oxycodine, and Gabapentin, all with minimal benefit. Prior to CVA, pt was fully independent in all activities. Pt and have garegivers 8 hrs a day for assistance. Prior Treatments and Tests Craniotomy 04/16/19, Acute rehab, Skull fragment replacement 06/26/19, home health PT Prior Functional Status Baseline Function- ADL's Independent Baseline Function- Mobility Independent PT-OP-C Subjective Start: 09/17/19 18:00 Freq: Status: Active Protocol: Document 12/10/19 11:15 DCW (Rec: 12/10/19 15:04 DCW [id number]) OP-PT Subjective Patient Comments Patient Comments Pt's reports their goal is to get him up walking with his cane (with a wheelchair follow) [place] the [place], hopefully within the month. PT-OP-G Mobility & Gait Start: 09/17/19 18:00 Freq: Status: Active Protocol: Document 12/10/19 11:15 DCW (Rec: 12/10/19 11:55 DCW [id number]) OP Mobility Evaluation Bed Mobility Rolling Independent Supine to and from Sit Independent Transfers Sit to Stand SBA Bed to Chair Transfers SBA OP Gait Assessment Gait Gait Assistance Required: Contact Guard Assist Distance (Feet) 280 Able to Maintain Weight Bearing Status Yes During Gait Assistive Devices Assistive Device None,Trent Walker Orthotic/Prosthetic Devices or Brace: No Gait Deviations General Gait Pattern Antalgic,Ataxic,Decreased Stride Length,Decreased Feet Clearance,Flexed Trunk,Lateral Trunk Lean Factors Limiting Gait Function Factors Limiting Gait Function Abnormal Tonal Influences, Decreased Activity Tolerance, Decreased Sensation,Decreased Strength,Incoordination,Poor Balance,Poor Safety Awareness Stair Climbing Evaluation Evaluation Level of Assist On Stairs Contact Guard Assistance Devices Stair Climbing Assistive Devices Right Railing Technique/Endurance Stair Climbing Direction Ascend and Descend Stair Climbing Technique Step Over Step Number of Steps Climbed 4 Stair Climbing Set # Repetitions (reps) 6 Comments Stair Climbing Comments Constant verbal cues to limit left scissoring and continuing [id number] gait pattern PT-OP-H Neuro Start: 09/17/19 18:00 Freq: Status: Active Protocol: Document 12/10/19 11:15 DCW (Rec: 12/10/19 11:55 DCW [id number]) Sensation Evaluation Gross Sensation Gross Sensation Left UE Impaired,Left LE Impaired Sensation Description Paresthesia,Numbness,Pain Location Details Left Leg Light Touch Absent Sharp/Dull Absent Deep Pressure Intact/Normal Proprioception (Position) Impaired Kinesthesia (Movement) Impaired Deep Tendon Reflex & Clonus Assessment Deep Tendon Reflex Left Achilles Deep Tendon Reflex 3+ Normal But Brisk Left Patellar Deep Tendon Reflex 3+ Normal But Brisk Ankle Clonus Left Clonus Assessment Sustained Muscle Tone Tone Assessment Left Lower Extremity Flexor Tone Description Moderate Hypotonicity PT-OP-M Strength Start: 09/17/19 18:00 Freq: Status: Active Protocol: Document 12/10/19 11:15 DCW (Rec: 12/10/19 11:55 DCW [id number]) Hip Strength Hip Manual Muscle Testing Left Flexion (L2) 3 Fair Extension (S1) 3- Fair- Abduction 2+ Poor+ Adduction 3+ Fair+ External Rotation 3 Fair Internal Rotation 3- Fair- Reason Not Measured Muscle Tone Knee Strength Knee Manual Muscle Testing Right Flexion (S2) 5 Normal Extension (L3) 5 Normal Left Flexion (S2) 4- Good- Extension (L3) 4 Good Reason Not Measured Muscle Tone,Pain Ankle/Foot Strength Ankle and Foot Manual Muscle Testing Right Dorsiflexion (L4) 5 Normal Plantarflexion (S1) 5 Normal Left Dorsiflexion (L4) 4- Good- Plantarflexion (S1) 3+ Fair+ Inversion 3- Fair- Eversion (S1) 3- Fair- PT-OP-Q Treatments Start: 09/17/19 18:00 Freq: Status: Active Protocol: Document 12/10/19 11:15 DCW (Rec: 12/10/19 15:04 DCW [id number]) Gait Training Gait Activity No AD Description Amb /s AD Device Used None Level of Assistance SBA Distance/Duration 280' Steps Description Ascend/Descend Device Used R rail Level of Assistance CGA Surface 6 Distance/Duration x6 Comments Step-through PT-OP-R Modalities Start: 09/17/19 18:00 Freq: Status: Active Protocol: Document 10/10/19 13:45 HH (Rec: 10/10/19 16:17 HH [id number]) Hot Pack/Cold Pack Treatment moist heat Location L hip adductors Patient Position Hooklying Treatment Duration (minutes) 10 Patient Tolerance Good PT-OP-S Aquatic Treatment Start: 09/17/19 18:00 Freq: Status: Active Protocol: Document 12/08/19 10:15 SAK (Rec: 12/09/19 08:05 SAK [id number]) Aquatics Treatment Pool Entry/Exit Pool Entry/Exit Method Lift Assistance Minimal Assistance,Moderate Assistance Comments min A transfering to right onto pool lift, mod A lift to w/c left Water Walking Backwards Water Level Chest Level Walking Equipment vest Level of Assistance Contact Guard Assistance, Minimal Assistance,Verbal Cues start stop walking forward and backward Water Level Chest Level Walking Equipment vest Level of Assistance Contact Guard Assistance, Minimal Assistance,Moderate Assistance,Verbal Cues Comments yellow corcle float and wrap on LUE Marching Water Level Chest Level Walking Equipment wet vest Level of Assistance Standby Assistance,Contact Guard Assistance,Minimal Assistance,Verbal Cues Sideways Water Level Chest Level Walking Equipment wet vest Level of Assistance Standby Assistance,Contact Guard Assistance,Minimal Assistance,Verbal Cues Forwards Water Level Chest Level Walking Equipment wet vest Level of Assistance Standby Assistance,Contact Guard Assistance,Minimal Assistance,Verbal Cues Lower Extremity Exercises knee extensions Details seated in lift chair Equipment #3.75 Reps/Duration 12 B SLS Details PT manual assist at hips Body Position Standing Water Level Chest Level Equipment vest Reps/Duration 2 min squats Body Position Standing Water Level Chest Level Reps/Duration 15x Comments min to mod assist for balance Lower Extremity Stretches HS Details at wall Body Position Standing Water Level Waist Level Equipment wet vest Reps/Duration 2x30 Upper Extremity Exercises hor ab/ad Body Position Standing Water Level Chest Level Reps/Duration 2 min Comments min to mod assist for balance Spinal Exercises trunk rotation Body Position Standing Water Level Chest Level Equipment vest, long barbell in UE's to guide Comments patient cued for straight elbows, PT hand as target from behind, min-mod A Swim Strokes Breastroke Other Equipment Used wetvest Laps/Duration 4 min Comments CG to min assist , roll to back when fatigued Flutter Other Equipment Used vest, Laps/Duration 5 min Comments CG to min assist to correct roll to left Other supine to standing Water Level Chest Level Equipment wet vest Reps/Duration x5 Comments Bony with transition, ModA with stabilizing balance PT-OP-T Assessment and Plan Start: 09/17/19 18:00 Freq: Status: Active Protocol: Document 12/10/19 11:15 DCW (Rec: 12/10/19 15:04 DCW [id number]) Physical Therapy Assessment Impairments Impairments Activity Tolerance,Balance, Coordination,Functional Activities,Functional Mobility ,Gait,Pain,ROM,Sensation, Strength,Tone,Transfers Goals Six Impairment Decreased Static Balance Jail Goal (LTG) Pt to score 35/56 or better on the Adler Balance LTG Duration 03/10/20 Five Impairment Pt uses R rail and step-over gait pattern ascending stairs Chief Revenue Officer Goal (LTG) Pt to ascend/descend stairs independently without use of rail LTG Duration 03/10/20 Four Impairment Pt demonstrates strength impairment throughout left LE Chief Revenue Officer Goal (LTG) Pt to display MMT >3+/5 through L LE LTG Duration 03/10/20 - Improving Three Impairment Pt SBA for transfers and bed mobility d/t Left Neglect Chief Revenue Officer Goal (LTG) Pt to demonstrate independent transfers and bed mobility with an ability to address left LE and UE 80% of the time LTG Duration Met Two Impairment Pt ambulates 280' CGA /s an AD Short Term Goal (STG) Prior gait goals met STG Duration Met Jail Goal (LTG) Pt to ambulate 400' SBA independently LTG Duration 03/10/20 One Impairment Pt does not have an appropriate home exercise program Short Term Goal (STG) Pt to be independent and compliant with an appropriate HEP STG Duration Met Assessment Summary Assessment Pt making excellent progress since his initial evaluation. Pt demonstrating decreased in left LE neglect. Showing improved LE strength, gait, stability, and functional mobility. Pt should benefit from skilled therapy focusing on gait, strength, balance, and functional mobility. Physical Therapy Plan Frequency and Duration Frequency of Treatment 2x/Week Duration of Treatment 3 months Plan of Care Start Date 12/10/19 Plan of Care End Date 03/10/20 Therapeutic Interventions Therapeutic Interventions Aquatic Therapy,Balance Training,Coordination Training ,Gait Training,Home Exercise Program,Manual Therapy, Neuromuscular Re-education, Patient/Caregiver Education, Self-Care/Home Management, Therapeutic Activities, Therapeutic Exercises Modalities Cold Pack/Ice Massage,Electric Stimulation,Hot Packs, Ultrasound Next Visit Focus/Plan Next Note Type Treatment Note Next Visit Plan Continue strengthening, balance and gait training with NMR. Move into deep water for cardio training and core stabilization. Revisit step ups/down with boxes and add obstacle course when appropriate.
--- NOTE | 2019-12-10 15:04 | PT.OPPOC ---
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) Visit Care Team Role Provider Type Yesy Cortes MD Attending Provider Physician Primary Care Provider Specialty: Internal Medicine Address: [address] [place] [address], [facility] Email: [email or web address] Plan Of Care PT-OP-T Assessment and Plan Start: 09/17/19 18:00 Freq: Status: Active Protocol: Document 12/10/19 11:15 DCW (Rec: 12/10/19 15:04 DCW [id number]) Physical Therapy Assessment Impairments Impairments Activity Tolerance,Balance, Coordination,Functional Activities,Functional Mobility ,Gait,Pain,ROM,Sensation, Strength,Tone,Transfers Goals Six Impairment Decreased Static Balance Customer Service Coordinator Goal (LTG) Pt to score 35/56 or better on the Adler Balance LTG Duration 03/10/20 Five Impairment Pt uses R rail and step-over gait pattern ascending stairs Residential Goal (LTG) Pt to ascend/descend stairs independently without use of rail LTG Duration 03/10/20 Four Impairment Pt demonstrates strength impairment throughout left LE Residential Goal (LTG) Pt to display MMT >3+/5 through L LE LTG Duration 03/10/20 - Improving Three Impairment Pt SBA for transfers and bed mobility d/t Left Neglect Customer Service Coordinator Goal (LTG) Pt to demonstrate independent transfers and bed mobility with an ability to address left LE and UE 80% of the time LTG Duration Met Two Impairment Pt ambulates 280' CGA /s an AD Short Term Goal (STG) Prior gait goals met STG Duration Met Residential Goal (LTG) Pt to ambulate 400' SBA independently LTG Duration 03/10/20 One Impairment Pt does not have an appropriate home exercise program Short Term Goal (STG) Pt to be independent and compliant with an appropriate HEP STG Duration Met Assessment Summary Assessment Pt making excellent progress since his initial evaluation. Pt demonstrating decreased in left LE neglect. Showing improved LE strength, gait, stability, and functional mobility. Pt should benefit from skilled therapy focusing on gait, strength, balance, and functional mobility. Physical Therapy Plan Frequency and Duration Frequency of Treatment 2x/Week Duration of Treatment 3 months Plan of Care Start Date 12/10/19 Plan of Care End Date 03/10/20 Therapeutic Interventions Therapeutic Interventions Aquatic Therapy,Balance Training,Coordination Training ,Gait Training,Home Exercise Program,Manual Therapy, Neuromuscular Re-education, Patient/Caregiver Education, Self-Care/Home Management, Therapeutic Activities, Therapeutic Exercises Modalities Cold Pack/Ice Massage,Electric Stimulation,Hot Packs, Ultrasound Next Visit Focus/Plan Next Note Type Treatment Note Next Visit Plan Continue strengthening, balance and gait training with NMR. Move into deep water for cardio training and core stabilization. Revisit step ups/down with boxes and add obstacle course when appropriate. Plan of Care Dates Plan of Care Start Date 12/10/19 Plan of Care End Date 03/10/20 Electronically Signed by: Osbaldo Barrios, PT 12/10/19 [id number] Please Sign and Return: I have reviewed this Plan of Care and certify that the skilled therapy services above are required to meet the patient?s needs. Physician Signature Date Printed Name and Credentials Clinical Instructor Signature Printed Name and Credentials
--- NOTE | 2019-12-15 14:19 | PT.OTN ---
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) Physical Therapy Treatment Note PT-OP-A Visit Information Start: 09/17/19 18:00 Freq: Status: Active Protocol: Document 12/15/19 10:15 LJ (Rec: 12/15/19 14:19 LJ [id number]) Out-Patient Physical Therapy Visit Information Visit Information Visit Type Treatment Note Visit Start Time 10:15 Visit Stop Time 11:00 Total Visit Minutes 45 Visit Number 23 Number of MOLDER WAX BALL Visits 1 Evaluation Information Evaluation Date 09/17/19 PT-OP-B Current Condition Start: 09/17/19 18:00 Freq: Status: Active Protocol: Document 09/17/19 12:00 DCW (Rec: 09/18/19 10:29 DCW [id number]) Current Condition History of Current Condition Onset Date 04/14/19 Current Complaints Hemiparesis secondary to CVA History of Current Condition Pt is a 69 year old male presenting to skilled outpatient physical therapy with left-side neglect, hemiparesis, loss of independence, and difficulty walking following an intraparenchymal hemorrhage on 04/14/19. Pt was transferred from [facility] to [facility], where a craniotomy was performed on 04/16/19. Pt completed 7 weeks of rehab/ recovery at [facility], and then underwent a second surgery on 06/26/19 to replace the skull fragment. Pt was then at an acute rehab facility 06/30-07/18/19, and since then has been receiving home health physical therapy. Pt presents today with limited left-sided function, left visual and physical neglect, difficulty with transfers, decreased activity tolerance, decreased gait, and many other secondary effects following his CVA. Pt has been working on ambulation with a ternt walker with home health, and his states he has walked around 100' a few times, but always with a therapist, as she does not feel comfortable walking with him yet. Pt exclusively gets around at time of evaluation in a manual wheelchair. Pt's transfers have been going fairly well, with his caregivers performing CGA, however pt will occasionally need assistance with placement of his left UE and LE due to neglect. Pt's biggest complaint at the moment is leg pain, his reports they have tried PT, Massage, CBD il, Tylenol, Oxycodine, and Gabapentin, all with minimal benefit. Prior to CVA, pt was fully independent in all activities. Pt and have garegivers 8 hrs a day for assistance. Prior Treatments and Tests Craniotomy 04/16/19, Acute rehab, Skull fragment replacement 06/26/19, home health PT Prior Functional Status Baseline Function- ADL's Independent Baseline Function- Mobility Independent PT-OP-C Subjective Start: 09/17/19 18:00 Freq: Status: Active Protocol: Document 12/15/19 10:15 LJ (Rec: 12/15/19 14:19 LJ [id number]) OP-PT Subjective Patient Comments Patient Comments Pt is happy with progress he is making PT-OP-G Mobility & Gait Start: 09/17/19 18:00 Freq: Status: Active Protocol: Document 12/10/19 11:15 DCW (Rec: 12/10/19 11:55 DCW [id number]) OP Mobility Evaluation Bed Mobility Rolling Independent Supine to and from Sit Independent Transfers Sit to Stand SBA Bed to Chair Transfers SBA OP Gait Assessment Gait Gait Assistance Required: Contact Guard Assist Distance (Feet) 280 Able to Maintain Weight Bearing Status Yes During Gait Assistive Devices Assistive Device None,Trent Walker Orthotic/Prosthetic Devices or Brace: No Gait Deviations General Gait Pattern Antalgic,Ataxic,Decreased Stride Length,Decreased Feet Clearance,Flexed Trunk,Lateral Trunk Lean Factors Limiting Gait Function Factors Limiting Gait Function Abnormal Tonal Influences, Decreased Activity Tolerance, Decreased Sensation,Decreased Strength,Incoordination,Poor Balance,Poor Safety Awareness Stair Climbing Evaluation Evaluation Level of Assist On Stairs Contact Guard Assistance Devices Stair Climbing Assistive Devices Right Railing Technique/Endurance Stair Climbing Direction Ascend and Descend Stair Climbing Technique Step Over Step Number of Steps Climbed 4 Stair Climbing Set # Repetitions (reps) 6 Comments Stair Climbing Comments Constant verbal cues to limit left scissoring and continuing [id number] gait pattern PT-OP-H Neuro Start: 09/17/19 18:00 Freq: Status: Active Protocol: Document 12/10/19 11:15 DCW (Rec: 12/10/19 11:55 DCW [id number]) Sensation Evaluation Gross Sensation Gross Sensation Left UE Impaired,Left LE Impaired Sensation Description Paresthesia,Numbness,Pain Location Details Left Leg Light Touch Absent Sharp/Dull Absent Deep Pressure Intact/Normal Proprioception (Position) Impaired Kinesthesia (Movement) Impaired Deep Tendon Reflex & Clonus Assessment Deep Tendon Reflex Left Achilles Deep Tendon Reflex 3+ Normal But Brisk Left Patellar Deep Tendon Reflex 3+ Normal But Brisk Ankle Clonus Left Clonus Assessment Sustained Muscle Tone Tone Assessment Left Lower Extremity Flexor Tone Description Moderate Hypotonicity PT-OP-M Strength Start: 09/17/19 18:00 Freq: Status: Active Protocol: Document 12/10/19 11:15 DCW (Rec: 12/10/19 11:55 DCW [id number]) Hip Strength Hip Manual Muscle Testing Left Flexion (L2) 3 Fair Extension (S1) 3- Fair- Abduction 2+ Poor+ Adduction 3+ Fair+ External Rotation 3 Fair Internal Rotation 3- Fair- Reason Not Measured Muscle Tone Knee Strength Knee Manual Muscle Testing Right Flexion (S2) 5 Normal Extension (L3) 5 Normal Left Flexion (S2) 4- Good- Extension (L3) 4 Good Reason Not Measured Muscle Tone,Pain Ankle/Foot Strength Ankle and Foot Manual Muscle Testing Right Dorsiflexion (L4) 5 Normal Plantarflexion (S1) 5 Normal Left Dorsiflexion (L4) 4- Good- Plantarflexion (S1) 3+ Fair+ Inversion 3- Fair- Eversion (S1) 3- Fair- PT-OP-Q Treatments Start: 09/17/19 18:00 Freq: Status: Active Protocol: Document 12/10/19 11:15 DCW (Rec: 12/10/19 15:04 DCW [id number]) Gait Training Gait Activity No AD Description Amb /s AD Device Used None Level of Assistance SBA Distance/Duration 280' Steps Description Ascend/Descend Device Used R rail Level of Assistance CGA Surface 6 Distance/Duration x6 Comments Step-through PT-OP-R Modalities Start: 09/17/19 18:00 Freq: Status: Active Protocol: Document 10/10/19 13:45 HH (Rec: 10/10/19 16:17 HH [id number]) Hot Pack/Cold Pack Treatment moist heat Location L hip adductors Patient Position Hooklying Treatment Duration (minutes) 10 Patient Tolerance Good PT-OP-S Aquatic Treatment Start: 09/17/19 18:00 Freq: Status: Active Protocol: Document 12/15/19 10:15 ADA (Rec: 12/15/19 14:19 [id number]) Aquatics Treatment Pool Entry/Exit Pool Entry/Exit Method Lift Assistance Minimal Assistance,Moderate Assistance Comments min A transfering to right onto pool lift, mod A lift to w/c left Water Walking Marching Water Level Chest Level Walking Equipment wet vest Level of Assistance Standby Assistance,Contact Guard Assistance,Minimal Assistance,Verbal Cues Sideways Water Level Chest Level Walking Equipment wet vest Level of Assistance Standby Assistance,Contact Guard Assistance,Minimal Assistance,Verbal Cues Forwards Water Level Chest Level Walking Equipment wet vest Level of Assistance Standby Assistance,Contact Guard Assistance,Minimal Assistance,Verbal Cues Lower Extremity Exercises knee extensions Details seated in lift chair Equipment #3.75 Reps/Duration 12 B SLS Details bracing LLE Body Position Standing Water Level Chest Level Equipment vest Reps/Duration 2 min hip extension Water Level Chest Level Equipment wet vest, blue float, #3.5 Reps/Duration 10x bilat HS curls Water Level Chest Level Equipment wet vest, blue float, #3.5 Reps/Duration 20 bilat marching at wall Water Level Chest Level Equipment wet vest Reps/Duration 6 min Comments working on recip. gait pattern Lower Extremity Stretches hip flexors Details at wall Body Position Standing Water Level Waist Level Reps/Duration 2x45 Comments manually assisted HS Details at wall Body Position Standing Water Level Waist Level Equipment wet vest Reps/Duration 2x30 Balance weight shifting Details forward backward with recip arms Body Position Standing Water Level Waist Level Equipment wet vest Comments CG assist Huntington Activities Huntington Activities Bicycle Equipment wet vest,sun'aq float, 3# each LE Duration 8 min Comments pt stabilizing in vertical position Guy-ModA PT-OP-T Assessment and Plan Start: 09/17/19 18:00 Freq: Status: Active Protocol: Document 12/15/19 10:15 ADA (Rec: 12/15/19 14:19 [id number]) Physical Therapy Assessment Impairments Impairments Activity Tolerance,Balance, Coordination,Functional Activities,Functional Mobility ,Gait,Pain,ROM,Sensation, Strength,Tone,Transfers Goals Six Impairment Decreased Static Balance Service Delivery Manager Goal (LTG) Pt to score 35/56 or better on the Adler Balance LTG Duration 03/10/20 Five Impairment Pt uses R rail and step-over gait pattern ascending stairs Skilled Nursing Goal (LTG) Pt to ascend/descend stairs independently without use of rail LTG Duration 03/10/20 Four Impairment Pt demonstrates strength impairment throughout left LE Service Delivery Manager Goal (LTG) Pt to display MMT >3+/5 through L LE LTG Duration 03/10/20 - Improving Three Impairment Pt SBA for transfers and bed mobility d/t Left Neglect Service Delivery Manager Goal (LTG) Pt to demonstrate independent transfers and bed mobility with an ability to address left LE and UE 80% of the time LTG Duration Met Two Impairment Pt ambulates 280' CGA /s an AD Short Term Goal (STG) Prior gait goals met STG Duration Met Skilled Nursing Goal (LTG) Pt to ambulate 400' SBA independently LTG Duration 03/10/20 One Impairment Pt does not have an appropriate home exercise program Short Term Goal (STG) Pt to be independent and compliant with an appropriate HEP STG Duration Met Assessment Summary Assessment Pt had more difficulty today with concentation when working on reciprocal gait patterning . Much time spent. At times he would use the correct pattern without thinking about it but other times had difficulty with the exercise in maintaining the pattern. He did well with deep water stabilization responding to verbal cueing correctly. Physical Therapy Plan Frequency and Duration Frequency of Treatment 2x/Week Duration of Treatment 3 months Plan of Care Start Date 12/10/19 Plan of Care End Date 03/10/20 Therapeutic Interventions Therapeutic Interventions Aquatic Therapy,Balance Training,Coordination Training ,Gait Training,Home Exercise Program,Manual Therapy, Neuromuscular Re-education, Patient/Caregiver Education, Self-Care/Home Management, Therapeutic Activities, Therapeutic Exercises Modalities Cold Pack/Ice Massage,Electric Stimulation,Hot Packs, Ultrasound Next Visit Focus/Plan Next Note Type Treatment Note Next Visit Plan Continue strengthening, balance and gait training with NMR. Move into deep water for cardio training and core stabilization. Revisit step ups/down with boxes and add obstacle course when appropriate.
--- NOTE | 2019-12-17 12:24 | PT.OTN ---
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) Physical Therapy Treatment Note PT-OP-A Visit Information Start: 09/17/19 18:00 Freq: Status: Active Protocol: Document 12/17/19 11:15 DCW (Rec: 12/17/19 12:23 DCW [id number]) Out-Patient Physical Therapy Visit Information Visit Information Visit Type Treatment Note Visit Start Time 11:15 Visit Stop Time 12:00 Total Visit Minutes 45 Visit Number 24 Number of ORGANIC SECTION TECHNICAL LEAD Visits 0 Evaluation Information Evaluation Date 09/17/19 PT-OP-B Current Condition Start: 09/17/19 18:00 Freq: Status: Active Protocol: Document 09/17/19 12:00 DCW (Rec: 09/18/19 10:29 DCW [id number]) Current Condition History of Current Condition Onset Date 04/14/19 Current Complaints Hemiparesis secondary to CVA History of Current Condition Pt is a 69 year old male presenting to skilled outpatient physical therapy with left-side neglect, hemiparesis, loss of independence, and difficulty walking following an intraparenchymal hemorrhage on 04/14/19. Pt was transferred from [facility] to [facility], where a craniotomy was performed on 04/16/19. Pt completed 7 weeks of rehab/ recovery at [facility], and then underwent a second surgery on 06/26/19 to replace the skull fragment. Pt was then at an acute rehab facility 06/30-07/18/19, and since then has been receiving home health physical therapy. Pt presents today with limited left-sided function, left visual and physical neglect, difficulty with transfers, decreased activity tolerance, decreased gait, and many other secondary effects following his CVA. Pt has been working on ambulation with a trent walker with home health, and his states he has walked around 100' a few times, but always with a therapist, as she does not feel comfortable walking with him yet. Pt exclusively gets around at time of evaluation in a manual wheelchair. Pt's transfers have been going fairly well, with his caregivers performing CGA, however pt will occasionally need assistance with placement of his left UE and LE due to neglect. Pt's biggest complaint at the moment is leg pain, his reports they have tried PT, Massage, CBD il, Tylenol, Oxycodine, and Gabapentin, all with minimal benefit. Prior to CVA, pt was fully independent in all activities. Pt and have garegivers 8 hrs a day for assistance. Prior Treatments and Tests Craniotomy 04/16/19, Acute rehab, Skull fragment replacement 06/26/19, home health PT Prior Functional Status Baseline Function- ADL's Independent Baseline Function- Mobility Independent PT-OP-C Subjective Start: 09/17/19 18:00 Freq: Status: Active Protocol: Document 12/17/19 11:15 DCW (Rec: 12/17/19 12:23 DCW [id number]) OP-PT Subjective Patient Comments Patient Comments Pt reports he is feeling well today, no new complaints. PT-OP-G Mobility & Gait Start: 09/17/19 18:00 Freq: Status: Active Protocol: Document 12/10/19 11:15 DCW (Rec: 12/10/19 11:55 DCW [id number]) OP Mobility Evaluation Bed Mobility Rolling Independent Supine to and from Sit Independent Transfers Sit to Stand SBA Bed to Chair Transfers SBA OP Gait Assessment Gait Gait Assistance Required: Contact Guard Assist Distance (Feet) 280 Able to Maintain Weight Bearing Status Yes During Gait Assistive Devices Assistive Device None,Trent Walker Orthotic/Prosthetic Devices or Brace: No Gait Deviations General Gait Pattern Antalgic,Ataxic,Decreased Stride Length,Decreased Feet Clearance,Flexed Trunk,Lateral Trunk Lean Factors Limiting Gait Function Factors Limiting Gait Function Abnormal Tonal Influences, Decreased Activity Tolerance, Decreased Sensation,Decreased Strength,Incoordination,Poor Balance,Poor Safety Awareness Stair Climbing Evaluation Evaluation Level of Assist On Stairs Contact Guard Assistance Devices Stair Climbing Assistive Devices Right Railing Technique/Endurance Stair Climbing Direction Ascend and Descend Stair Climbing Technique Step Over Step Number of Steps Climbed 4 Stair Climbing Set # Repetitions (reps) 6 Comments Stair Climbing Comments Constant verbal cues to limit left scissoring and continuing [id number] gait pattern PT-OP-H Neuro Start: 09/17/19 18:00 Freq: Status: Active Protocol: Document 12/10/19 11:15 DCW (Rec: 12/10/19 11:55 DCW [id number]) Sensation Evaluation Gross Sensation Gross Sensation Left UE Impaired,Left LE Impaired Sensation Description Paresthesia,Numbness,Pain Location Details Left Leg Light Touch Absent Sharp/Dull Absent Deep Pressure Intact/Normal Proprioception (Position) Impaired Kinesthesia (Movement) Impaired Deep Tendon Reflex & Clonus Assessment Deep Tendon Reflex Left Achilles Deep Tendon Reflex 3+ Normal But Brisk Left Patellar Deep Tendon Reflex 3+ Normal But Brisk Ankle Clonus Left Clonus Assessment Sustained Muscle Tone Tone Assessment Left Lower Extremity Flexor Tone Description Moderate Hypotonicity PT-OP-M Strength Start: 09/17/19 18:00 Freq: Status: Active Protocol: Document 12/10/19 11:15 DCW (Rec: 12/10/19 11:55 DCW [id number]) Hip Strength Hip Manual Muscle Testing Left Flexion (L2) 3 Fair Extension (S1) 3- Fair- Abduction 2+ Poor+ Adduction 3+ Fair+ External Rotation 3 Fair Internal Rotation 3- Fair- Reason Not Measured Muscle Tone Knee Strength Knee Manual Muscle Testing Right Flexion (S2) 5 Normal Extension (L3) 5 Normal Left Flexion (S2) 4- Good- Extension (L3) 4 Good Reason Not Measured Muscle Tone,Pain Ankle/Foot Strength Ankle and Foot Manual Muscle Testing Right Dorsiflexion (L4) 5 Normal Plantarflexion (S1) 5 Normal Left Dorsiflexion (L4) 4- Good- Plantarflexion (S1) 3+ Fair+ Inversion 3- Fair- Eversion (S1) 3- Fair- PT-OP-Q Treatments Start: 09/17/19 18:00 Freq: Status: Active Protocol: Document 12/17/19 11:15 DCW (Rec: 12/17/19 12:23 DCW [id number]) Gym Equipment Shuttle Recovery Unilateral Heel Raises Details Left Resistance 37# Unilateral Squats Details Left Resistance 75# Shuttle Recovery Platform Stable Bilateral Squats Resistance 125# Shuttle Recovery Platform Stable Therapeutic Exercises Standing Exercises Abduction Standing Exercise Name L hip abduction Toe-taps Standing Exercise Name Toe-taps Side bilateral Resistance 10# Equipment Used 6 step Gait Training Gait Activity No AD Description Amb /s AD Device Used None Level of Assistance SBA->CGA Distance/Duration 850' PT-OP-R Modalities Start: 09/17/19 18:00 Freq: Status: Active Protocol: Document 10/10/19 13:45 HH (Rec: 10/10/19 16:17 HH [id number]) Hot Pack/Cold Pack Treatment moist heat Location L hip adductors Patient Position Hooklying Treatment Duration (minutes) 10 Patient Tolerance Good PT-OP-S Aquatic Treatment Start: 09/17/19 18:00 Freq: Status: Active Protocol: Document 12/15/19 10:15 LJ (Rec: 12/15/19 14:19 LJ [id number]) Aquatics Treatment Pool Entry/Exit Pool Entry/Exit Method Lift Assistance Minimal Assistance,Moderate Assistance Comments min A transfering to right onto pool lift, mod A lift to w/c left Water Walking Marching Water Level Chest Level Walking Equipment wet vest Level of Assistance Standby Assistance,Contact Guard Assistance,Minimal Assistance,Verbal Cues Sideways Water Level Chest Level Walking Equipment wet vest Level of Assistance Standby Assistance,Contact Guard Assistance,Minimal Assistance,Verbal Cues Forwards Water Level Chest Level Walking Equipment wet vest Level of Assistance Standby Assistance,Contact Guard Assistance,Minimal Assistance,Verbal Cues Lower Extremity Exercises knee extensions Details seated in lift chair Equipment #3.75 Reps/Duration 12 B SLS Details bracing LLE Body Position Standing Water Level Chest Level Equipment vest Reps/Duration 2 min hip extension Water Level Chest Level Equipment wet vest, blue float, #3.5 Reps/Duration 10x bilat HS curls Water Level Chest Level Equipment wet vest, blue float, #3.5 Reps/Duration 20 bilat marching at wall Water Level Chest Level Equipment wet vest Reps/Duration 6 min Comments working on recip. gait pattern Lower Extremity Stretches hip flexors Details at wall Body Position Standing Water Level Waist Level Reps/Duration 2x45 Comments manually assisted HS Details at wall Body Position Standing Water Level Waist Level Equipment wet vest Reps/Duration 2x30 Balance weight shifting Details forward backward with recip arms Body Position Standing Water Level Waist Level Equipment wet vest Comments CG assist [place] Activities Lohn Activities Bicycle Equipment wet vest,[place] float, 3# each LE Duration 8 min Comments pt stabilizing in vertical position Guy-ModA PT-OP-T Assessment and Plan Start: 09/17/19 18:00 Freq: Status: Active Protocol: Document 12/17/19 11:15 DCW (Rec: 12/17/19 12:23 DCW [id number]) Physical Therapy Assessment Impairments Impairments Activity Tolerance,Balance, Coordination,Functional Activities,Functional Mobility ,Gait,Pain,ROM,Sensation, Strength,Tone,Transfers Goals Six Impairment Decreased Static Balance Corn Cutter Goal (LTG) Pt to score 35/56 or better on the Adler Balance LTG Duration 03/10/20 Five Impairment Pt uses R rail and step-over gait pattern ascending stairs Usp Goal (LTG) Pt to ascend/descend stairs independently without use of rail LTG Duration 03/10/20 Four Impairment Pt demonstrates strength impairment throughout left LE Usp Goal (LTG) Pt to display MMT >3+/5 through L LE LTG Duration 03/10/20 - Improving Three Impairment Pt SBA for transfers and bed mobility d/t Left Neglect Corn Cutter Goal (LTG) Pt to demonstrate independent transfers and bed mobility with an ability to address left LE and UE 80% of the time LTG Duration Met Two Impairment Pt ambulates 280' CGA /s an AD Short Term Goal (STG) Prior gait goals met STG Duration Met Corn Cutter Goal (LTG) Pt to ambulate 400' SBA independently LTG Duration 03/10/20 One Impairment Pt does not have an appropriate home exercise program Short Term Goal (STG) Pt to be independent and compliant with an appropriate HEP STG Duration Met Assessment Summary Assessment Pt had a substantial improvement in gait tolerance today, improving from a previous long distance /s an AD of 280' to 850'. Physical Therapy Plan Frequency and Duration Frequency of Treatment 2x/Week Duration of Treatment 3 months Plan of Care Start Date 12/10/19 Plan of Care End Date 03/10/20 Therapeutic Interventions Therapeutic Interventions Aquatic Therapy,Balance Training,Coordination Training ,Gait Training,Home Exercise Program,Manual Therapy, Neuromuscular Re-education, Patient/Caregiver Education, Self-Care/Home Management, Therapeutic Activities, Therapeutic Exercises Modalities Cold Pack/Ice Massage,Electric Stimulation,Hot Packs, Ultrasound Next Visit Focus/Plan Next Note Type Treatment Note Next Visit Plan Continue strengthening, balance and gait training with NMR. Move into deep water for cardio training and core stabilization. Revisit step ups/down with boxes and add obstacle course when appropriate.
--- NOTE | 2019-12-19 09:43 | PT.OTN ---
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) Physical Therapy Treatment Note PT-OP-A Visit Information Start: 09/17/19 18:00 Freq: Status: Active Protocol: Document 12/17/19 11:15 DCW (Rec: 12/17/19 12:23 DCW [id number]) Out-Patient Physical Therapy Visit Information Visit Information Visit Type Treatment Note Visit Start Time 11:15 Visit Stop Time 12:00 Total Visit Minutes 45 Visit Number 24 Number of TERADATA DEVELOPER Visits 0 Evaluation Information Evaluation Date 09/17/19 PT-OP-B Current Condition Start: 09/17/19 18:00 Freq: Status: Active Protocol: Document 09/17/19 12:00 DCW (Rec: 09/18/19 10:29 DCW [id number]) Current Condition History of Current Condition Onset Date 04/14/19 Current Complaints Hemiparesis secondary to CVA History of Current Condition Pt is a 69 year old male presenting to skilled outpatient physical therapy with left-side neglect, hemiparesis, loss of independence, and difficulty walking following an intraparenchymal hemorrhage on 04/14/19. Pt was transferred from [facility] to [facility], where a craniotomy was performed on 04/16/19. Pt completed 7 weeks of rehab/ recovery at [facility], and then underwent a second surgery on 06/26/19 to replace the skull fragment. Pt was then at an acute rehab facility 06/30-07/18/19, and since then has been receiving home health physical therapy. Pt presents today with limited left-sided function, left visual and physical neglect, difficulty with transfers, decreased activity tolerance, decreased gait, and many other secondary effects following his CVA. Pt has been working on ambulation with a trent walker with home health, and his states he has walked around 100' a few times, but always with a therapist, as she does not feel comfortable walking with him yet. Pt exclusively gets around at time of evaluation in a manual wheelchair. Pt's transfers have been going fairly well, with his caregivers performing CGA, however pt will occasionally need assistance with placement of his left UE and LE due to neglect. Pt's biggest complaint at the moment is leg pain, his reports they have tried PT, Massage, CBD il, Tylenol, Oxycodine, and Gabapentin, all with minimal benefit. Prior to CVA, pt was fully independent in all activities. Pt and have garegivers 8 hrs a day for assistance. Prior Treatments and Tests Craniotomy 04/16/19, Acute rehab, Skull fragment replacement 06/26/19, home health PT Prior Functional Status Baseline Function- ADL's Independent Baseline Function- Mobility Independent PT-OP-C Subjective Start: 09/17/19 18:00 Freq: Status: Active Protocol: Document 12/17/19 11:15 DCW (Rec: 12/17/19 12:23 DCW [id number]) OP-PT Subjective Patient Comments Patient Comments Pt reports he is feeling well today, no new complaints. PT-OP-G Mobility & Gait Start: 09/17/19 18:00 Freq: Status: Active Protocol: Document 12/10/19 11:15 DCW (Rec: 12/10/19 11:55 DCW [id number]) OP Mobility Evaluation Bed Mobility Rolling Independent Supine to and from Sit Independent Transfers Sit to Stand SBA Bed to Chair Transfers SBA OP Gait Assessment Gait Gait Assistance Required: Contact Guard Assist Distance (Feet) 280 Able to Maintain Weight Bearing Status Yes During Gait Assistive Devices Assistive Device None,Trent Walker Orthotic/Prosthetic Devices or Brace: No Gait Deviations General Gait Pattern Antalgic,Ataxic,Decreased Stride Length,Decreased Feet Clearance,Flexed Trunk,Lateral Trunk Lean Factors Limiting Gait Function Factors Limiting Gait Function Abnormal Tonal Influences, Decreased Activity Tolerance, Decreased Sensation,Decreased Strength,Incoordination,Poor Balance,Poor Safety Awareness Stair Climbing Evaluation Evaluation Level of Assist On Stairs Contact Guard Assistance Devices Stair Climbing Assistive Devices Right Railing Technique/Endurance Stair Climbing Direction Ascend and Descend Stair Climbing Technique Step Over Step Number of Steps Climbed 4 Stair Climbing Set # Repetitions (reps) 6 Comments Stair Climbing Comments Constant verbal cues to limit left scissoring and continuing [id number] gait pattern PT-OP-H Neuro Start: 09/17/19 18:00 Freq: Status: Active Protocol: Document 12/10/19 11:15 DCW (Rec: 12/10/19 11:55 DCW [id number]) Sensation Evaluation Gross Sensation Gross Sensation Left UE Impaired,Left LE Impaired Sensation Description Paresthesia,Numbness,Pain Location Details Left Leg Light Touch Absent Sharp/Dull Absent Deep Pressure Intact/Normal Proprioception (Position) Impaired Kinesthesia (Movement) Impaired Deep Tendon Reflex & Clonus Assessment Deep Tendon Reflex Left Achilles Deep Tendon Reflex 3+ Normal But Brisk Left Patellar Deep Tendon Reflex 3+ Normal But Brisk Ankle Clonus Left Clonus Assessment Sustained Muscle Tone Tone Assessment Left Lower Extremity Flexor Tone Description Moderate Hypotonicity PT-OP-M Strength Start: 09/17/19 18:00 Freq: Status: Active Protocol: Document 12/10/19 11:15 DCW (Rec: 12/10/19 11:55 DCW [id number]) Hip Strength Hip Manual Muscle Testing Left Flexion (L2) 3 Fair Extension (S1) 3- Fair- Abduction 2+ Poor+ Adduction 3+ Fair+ External Rotation 3 Fair Internal Rotation 3- Fair- Reason Not Measured Muscle Tone Knee Strength Knee Manual Muscle Testing Right Flexion (S2) 5 Normal Extension (L3) 5 Normal Left Flexion (S2) 4- Good- Extension (L3) 4 Good Reason Not Measured Muscle Tone,Pain Ankle/Foot Strength Ankle and Foot Manual Muscle Testing Right Dorsiflexion (L4) 5 Normal Plantarflexion (S1) 5 Normal Left Dorsiflexion (L4) 4- Good- Plantarflexion (S1) 3+ Fair+ Inversion 3- Fair- Eversion (S1) 3- Fair- PT-OP-Q Treatments Start: 09/17/19 18:00 Freq: Status: Active Protocol: Document 12/17/19 11:15 DCW (Rec: 12/17/19 12:23 DCW [id number]) Gym Equipment Shuttle Recovery Unilateral Heel Raises Details Left Resistance 37# Unilateral Squats Details Left Resistance 75# Shuttle Recovery Platform Stable Bilateral Squats Resistance 125# Shuttle Recovery Platform Stable Therapeutic Exercises Standing Exercises Abduction Standing Exercise Name L hip abduction Toe-taps Standing Exercise Name Toe-taps Side bilateral Resistance 10# Equipment Used 6 step Gait Training Gait Activity No AD Description Amb /s AD Device Used None Level of Assistance SBA->CGA Distance/Duration 850' PT-OP-R Modalities Start: 09/17/19 18:00 Freq: Status: Active Protocol: Document 10/10/19 13:45 HH (Rec: 10/10/19 16:17 HH [email or web address]) Hot Pack/Cold Pack Treatment moist heat Location L hip adductors Patient Position Hooklying Treatment Duration (minutes) 10 Patient Tolerance Good PT-OP-S Aquatic Treatment Start: 09/17/19 18:00 Freq: Status: Active Protocol: Document 12/15/19 10:15 LJ (Rec: 12/15/19 14:19 LJ [id number]) Aquatics Treatment Pool Entry/Exit Pool Entry/Exit Method Lift Assistance Minimal Assistance,Moderate Assistance Comments min A transfering to right onto pool lift, mod A lift to w/c left Water Walking Marching Water Level Chest Level Walking Equipment wet vest Level of Assistance Standby Assistance,Contact Guard Assistance,Minimal Assistance,Verbal Cues Sideways Water Level Chest Level Walking Equipment wet vest Level of Assistance Standby Assistance,Contact Guard Assistance,Minimal Assistance,Verbal Cues Forwards Water Level Chest Level Walking Equipment wet vest Level of Assistance Standby Assistance,Contact Guard Assistance,Minimal Assistance,Verbal Cues Lower Extremity Exercises knee extensions Details seated in lift chair Equipment #3.75 Reps/Duration 12 B SLS Details bracing LLE Body Position Standing Water Level Chest Level Equipment vest Reps/Duration 2 min hip extension Water Level Chest Level Equipment wet vest, blue float, #3.5 Reps/Duration 10x bilat HS curls Water Level Chest Level Equipment wet vest, blue float, #3.5 Reps/Duration 20 bilat marching at wall Water Level Chest Level Equipment wet vest Reps/Duration 6 min Comments working on recip. gait pattern Lower Extremity Stretches hip flexors Details at wall Body Position Standing Water Level Waist Level Reps/Duration 2x45 Comments manually assisted HS Details at wall Body Position Standing Water Level Waist Level Equipment wet vest Reps/Duration 2x30 Balance weight shifting Details forward backward with recip arms Body Position Standing Water Level Waist Level Equipment wet vest Comments CG assist [place] Activities [place] Activities Bicycle Equipment wet vest,[place] float, 3# each LE Duration 8 min Comments pt stabilizing in vertical position Guy-ModA PT-OP-T Assessment and Plan Start: 09/17/19 18:00 Freq: Status: Active Protocol: Document 12/17/19 11:15 DCW (Rec: 12/17/19 12:23 DCW [id number]) Physical Therapy Assessment Impairments Impairments Activity Tolerance,Balance, Coordination,Functional Activities,Functional Mobility ,Gait,Pain,ROM,Sensation, Strength,Tone,Transfers Goals Six Impairment Decreased Static Balance Crystal Gazer Goal (LTG) Pt to score 35/56 or better on the Adler Balance LTG Duration 03/10/20 Five Impairment Pt uses R rail and step-over gait pattern ascending stairs Usp Goal (LTG) Pt to ascend/descend stairs independently without use of rail LTG Duration 03/10/20 Four Impairment Pt demonstrates strength impairment throughout left LE Usp Goal (LTG) Pt to display MMT >3+/5 through L LE LTG Duration 03/10/20 - Improving Three Impairment Pt SBA for transfers and bed mobility d/t Left Neglect Crystal Gazer Goal (LTG) Pt to demonstrate independent transfers and bed mobility with an ability to address left LE and UE 80% of the time LTG Duration Met Two Impairment Pt ambulates 280' CGA /s an AD Short Term Goal (STG) Prior gait goals met STG Duration Met Crystal Gazer Goal (LTG) Pt to ambulate 400' SBA independently LTG Duration 03/10/20 One Impairment Pt does not have an appropriate home exercise program Short Term Goal (STG) Pt to be independent and compliant with an appropriate HEP STG Duration Met Assessment Summary Assessment Pt had a substantial improvement in gait tolerance today, improving from a previous long distance /s an AD of 280' to 850'. Physical Therapy Plan Frequency and Duration Frequency of Treatment 2x/Week Duration of Treatment 3 months Plan of Care Start Date 12/10/19 Plan of Care End Date 03/10/20 Therapeutic Interventions Therapeutic Interventions Aquatic Therapy,Balance Training,Coordination Training ,Gait Training,Home Exercise Program,Manual Therapy, Neuromuscular Re-education, Patient/Caregiver Education, Self-Care/Home Management, Therapeutic Activities, Therapeutic Exercises Modalities Cold Pack/Ice Massage,Electric Stimulation,Hot Packs, Ultrasound Next Visit Focus/Plan Next Note Type Treatment Note Next Visit Plan Continue strengthening, balance and gait training with NMR. Move into deep water for cardio training and core stabilization. Revisit step ups/down with boxes and add obstacle course when appropriate.
--- NOTE | 2019-12-24 12:14 | PT.OTN ---
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) Physical Therapy Treatment Note PT-OP-A Visit Information Start: 09/17/19 18:00 Freq: Status: Active Protocol: Document 12/24/19 11:17 DCW (Rec: 12/24/19 12:14 DCW [id number]) Out-Patient Physical Therapy Visit Information Visit Information Visit Type Treatment Note Visit Start Time 11:17 Visit Stop Time 12:00 Total Visit Minutes 43 Visit Number [id number] Number of MANAGER DATABASE Visits 0 Evaluation Information Evaluation Date 09/17/19 PT-OP-B Current Condition Start: 09/17/19 18:00 Freq: Status: Active Protocol: Document 09/17/19 12:00 DCW (Rec: 09/18/19 10:29 DCW [id number]) Current Condition History of Current Condition Onset Date 04/14/19 Current Complaints Hemiparesis secondary to CVA History of Current Condition Pt is a 69 year old male presenting to skilled outpatient physical therapy with left-side neglect, hemiparesis, loss of independence, and difficulty walking following an intraparenchymal hemorrhage on 04/14/19. Pt was transferred from [facility] to [facility], where a craniotomy was performed on 04/16/19. Pt completed 7 weeks of rehab/ recovery at [facility], and then underwent a second surgery on 06/26/19 to replace the skull fragment. Pt was then at an acute rehab facility 06/30-07/18/19, and since then has been receiving home health physical therapy. Pt presents today with limited left-sided function, left visual and physical neglect, difficulty with transfers, decreased activity tolerance, decreased gait, and many other secondary effects following his CVA. Pt has been working on ambulation with a trent walker with home health, and his states he has walked around 100' a few times, but always with a therapist, as she does not feel comfortable walking with him yet. Pt exclusively gets around at time of evaluation in a manual wheelchair. Pt's transfers have been going fairly well, with his caregivers performing CGA, however pt will occasionally need assistance with placement of his left UE and LE due to neglect. Pt's biggest complaint at the moment is leg pain, his reports they have tried PT, Massage, CBD il, Tylenol, Oxycodine, and Gabapentin, all with minimal benefit. Prior to CVA, pt was fully independent in all activities. Pt and have garegivers 8 hrs a day for assistance. Prior Treatments and Tests Craniotomy 04/16/19, Acute rehab, Skull fragment replacement 06/26/19, home health PT Prior Functional Status Baseline Function- ADL's Independent Baseline Function- Mobility Independent PT-OP-C Subjective Start: 09/17/19 18:00 Freq: Status: Active Protocol: Document 12/24/19 11:17 DCW (Rec: 12/24/19 12:14 DCW [id number]) OP-PT Subjective Patient Comments Patient Comments Pt has been doing more ambulation at home, and has reached the point where he can perform his own pericare at home. PT-OP-G Mobility & Gait Start: 09/17/19 18:00 Freq: Status: Active Protocol: Document 12/10/19 11:15 DCW (Rec: 12/10/19 11:55 DCW [id number]) OP Mobility Evaluation Bed Mobility Rolling Independent Supine to and from Sit Independent Transfers Sit to Stand SBA Bed to Chair Transfers SBA OP Gait Assessment Gait Gait Assistance Required: Contact Guard Assist Distance (Feet) 280 Able to Maintain Weight Bearing Status Yes During Gait Assistive Devices Assistive Device None,Trent Walker Orthotic/Prosthetic Devices or Brace: No Gait Deviations General Gait Pattern Antalgic,Ataxic,Decreased Stride Length,Decreased Feet Clearance,Flexed Trunk,Lateral Trunk Lean Factors Limiting Gait Function Factors Limiting Gait Function Abnormal Tonal Influences, Decreased Activity Tolerance, Decreased Sensation,Decreased Strength,Incoordination,Poor Balance,Poor Safety Awareness Stair Climbing Evaluation Evaluation Level of Assist On Stairs Contact Guard Assistance Devices Stair Climbing Assistive Devices Right Railing Technique/Endurance Stair Climbing Direction Ascend and Descend Stair Climbing Technique Step Over Step Number of Steps Climbed 4 Stair Climbing Set # Repetitions (reps) 6 Comments Stair Climbing Comments Constant verbal cues to limit left scissoring and continuing [id number] gait pattern PT-OP-H Neuro Start: 09/17/19 18:00 Freq: Status: Active Protocol: Document 12/10/19 11:15 DCW (Rec: 12/10/19 11:55 DCW [id number]) Sensation Evaluation Gross Sensation Gross Sensation Left UE Impaired,Left LE Impaired Sensation Description Paresthesia,Numbness,Pain Location Details Left Leg Light Touch Absent Sharp/Dull Absent Deep Pressure Intact/Normal Proprioception (Position) Impaired Kinesthesia (Movement) Impaired Deep Tendon Reflex & Clonus Assessment Deep Tendon Reflex Left Achilles Deep Tendon Reflex 3+ Normal But Brisk Left Patellar Deep Tendon Reflex 3+ Normal But Brisk Ankle Clonus Left Clonus Assessment Sustained Muscle Tone Tone Assessment Left Lower Extremity Flexor Tone Description Moderate Hypotonicity PT-OP-M Strength Start: 09/17/19 18:00 Freq: Status: Active Protocol: Document 12/10/19 11:15 DCW (Rec: 12/10/19 11:55 DCW [id number]) Hip Strength Hip Manual Muscle Testing Left Flexion (L2) 3 Fair Extension (S1) 3- Fair- Abduction 2+ Poor+ Adduction 3+ Fair+ External Rotation 3 Fair Internal Rotation 3- Fair- Reason Not Measured Muscle Tone Knee Strength Knee Manual Muscle Testing Right Flexion (S2) 5 Normal Extension (L3) 5 Normal Left Flexion (S2) 4- Good- Extension (L3) 4 Good Reason Not Measured Muscle Tone,Pain Ankle/Foot Strength Ankle and Foot Manual Muscle Testing Right Dorsiflexion (L4) 5 Normal Plantarflexion (S1) 5 Normal Left Dorsiflexion (L4) 4- Good- Plantarflexion (S1) 3+ Fair+ Inversion 3- Fair- Eversion (S1) 3- Fair- PT-OP-Q Treatments Start: 09/17/19 18:00 Freq: Status: Active Protocol: Document 12/24/19 11:17 DCW (Rec: 12/24/19 12:06 DCW [id number]) Gym Equipment Shuttle Recovery Unilateral Heel Raises Details Left Resistance 37# Unilateral Squats Details Left Resistance 75# Shuttle Recovery Platform Stable Bilateral Squats Resistance 125# Shuttle Recovery Platform Stable Therapeutic Exercises Standing Exercises SLS Standing Exercise Name SLS Equipment Used // bars Comments CGA Other Exercises Sit<->Stand Other Exercise Name Sit<->Stand Equipment Used // bars Comments VCs for foot placement and L knee extension Gait Training Gait Activity No AD Description Amb /s AD Device Used None Level of Assistance SBA->CGA Distance/Duration 950' Comments VCs to promote heel-toe gait, extend left knee during stance phase PT-OP-R Modalities Start: 09/17/19 18:00 Freq: Status: Active Protocol: Document 10/10/19 13:45 HH (Rec: 10/10/19 16:17 HH [id number]) Hot Pack/Cold Pack Treatment moist heat Location L hip adductors Patient Position Hooklying Treatment Duration (minutes) 10 Patient Tolerance Good PT-OP-S Aquatic Treatment Start: 09/17/19 18:00 Freq: Status: Active Protocol: Document 12/15/19 10:15 LJ (Rec: 12/15/19 14:19 LJ [id number]) Aquatics Treatment Pool Entry/Exit Pool Entry/Exit Method Lift Assistance Minimal Assistance,Moderate Assistance Comments min A transfering to right onto pool lift, mod A lift to w/c left Water Walking Marching Water Level Chest Level Walking Equipment wet vest Level of Assistance Standby Assistance,Contact Guard Assistance,Minimal Assistance,Verbal Cues Sideways Water Level Chest Level Walking Equipment wet vest Level of Assistance Standby Assistance,Contact Guard Assistance,Minimal Assistance,Verbal Cues Forwards Water Level Chest Level Walking Equipment wet vest Level of Assistance Standby Assistance,Contact Guard Assistance,Minimal Assistance,Verbal Cues Lower Extremity Exercises knee extensions Details seated in lift chair Equipment #3.75 Reps/Duration 12 B SLS Details bracing LLE Body Position Standing Water Level Chest Level Equipment vest Reps/Duration 2 min hip extension Water Level Chest Level Equipment wet vest, blue float, #3.5 Reps/Duration 10x bilat HS curls Water Level Chest Level Equipment wet vest, blue float, #3.5 Reps/Duration 20 bilat marching at wall Water Level Chest Level Equipment wet vest Reps/Duration 6 min Comments working on recip. gait pattern Lower Extremity Stretches hip flexors Details at wall Body Position Standing Water Level Waist Level Reps/Duration 2x45 Comments manually assisted HS Details at wall Body Position Standing Water Level Waist Level Equipment wet vest Reps/Duration 2x30 Balance weight shifting Details forward backward with recip arms Body Position Standing Water Level Waist Level Equipment wet vest Comments CG assist [place] Activities [place] Activities Bicycle Equipment wet vest,[place] float, 3# each LE Duration 8 min Comments pt stabilizing in vertical position Guy-ModA PT-OP-T Assessment and Plan Start: 09/17/19 18:00 Freq: Status: Active Protocol: Document 12/24/19 11:17 DCW (Rec: 12/24/19 12:06 DCW [id number]) Physical Therapy Assessment Impairments Impairments Activity Tolerance,Balance, Coordination,Functional Activities,Functional Mobility ,Gait,Pain,ROM,Sensation, Strength,Tone,Transfers Goals Six Impairment Decreased Static Balance Binder Chainstitch Goal (LTG) Pt to score 35/56 or better on the Adler Balance LTG Duration 03/10/20 Five Impairment Pt uses R rail and step-over gait pattern ascending stairs Senior Care Goal (LTG) Pt to ascend/descend stairs independently without use of rail LTG Duration 03/10/20 Four Impairment Pt demonstrates strength impairment throughout left LE Binder Chainstitch Goal (LTG) Pt to display MMT >3+/5 through L LE LTG Duration 03/10/20 - Improving Three Impairment Pt SBA for transfers and bed mobility d/t Left Neglect Senior Care Goal (LTG) Pt to demonstrate independent transfers and bed mobility with an ability to address left LE and UE 80% of the time LTG Duration Met Two Impairment Pt ambulates 280' CGA /s an AD Short Term Goal (STG) Prior gait goals met STG Duration Met Senior Care Goal (LTG) Pt to ambulate 400' SBA independently LTG Duration 03/10/20 One Impairment Pt does not have an appropriate home exercise program Short Term Goal (STG) Pt to be independent and compliant with an appropriate HEP STG Duration Met Assessment Summary Assessment Today's session got very involved in technical explanations of gait mechanics while pt was ambulating, attempting to educate pt on why he needs to properly extend L knee while walking. Physical Therapy Plan Frequency and Duration Frequency of Treatment 2x/Week Duration of Treatment 3 months Plan of Care Start Date 12/10/19 Plan of Care End Date 03/10/20 Therapeutic Interventions Therapeutic Interventions Aquatic Therapy,Balance Training,Coordination Training ,Gait Training,Home Exercise Program,Manual Therapy, Neuromuscular Re-education, Patient/Caregiver Education, Self-Care/Home Management, Therapeutic Activities, Therapeutic Exercises Modalities Cold Pack/Ice Massage,Electric Stimulation,Hot Packs, Ultrasound Next Visit Focus/Plan Next Note Type Treatment Note Next Visit Plan Continue strengthening, balance and gait training with NMR. Move into deep water for cardio training and core stabilization. Revisit step ups/down with boxes and add obstacle course when appropriate.
--- NOTE | 2019-12-26 15:26 | PT.OTN ---
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) Physical Therapy Treatment Note PT-OP-A Visit Information Start: 09/17/19 18:00 Freq: Status: Active Protocol: Document 12/26/19 10:15 LJ (Rec: 12/26/19 15:26 LJ [email or web address]) Out-Patient Physical Therapy Visit Information Visit Information Visit Type Treatment Note Visit Start Time 10:15 Visit Stop Time 11:00 Total Visit Minutes 45 Visit Number 26 Number of AUTOMATIC GLUING MACHINE OPERATOR Visits 1 Evaluation Information Evaluation Date 09/17/19 PT-OP-B Current Condition Start: 09/17/19 18:00 Freq: Status: Active Protocol: Document 09/17/19 12:00 DCW (Rec: 09/18/19 10:29 DCW [id number]) Current Condition History of Current Condition Onset Date 04/14/19 Current Complaints Hemiparesis secondary to CVA History of Current Condition Pt is a 69 year old male presenting to skilled outpatient physical therapy with left-side neglect, hemiparesis, loss of independence, and difficulty walking following an intraparenchymal hemorrhage on 04/14/19. Pt was transferred from [facility] to [facility], where a craniotomy was performed on 04/16/19. Pt completed 7 weeks of rehab/ recovery at [facility], and then underwent a second surgery on 06/26/19 to replace the skull fragment. Pt was then at an acute rehab facility 06/30-07/18/19, and since then has been receiving home health physical therapy. Pt presents today with limited left-sided function, left visual and physical neglect, difficulty with transfers, decreased activity tolerance, decreased gait, and many other secondary effects following his CVA. Pt has been working on ambulation with a trent walker with home health, and his states he has walked around 100' a few times, but always with a therapist, as she does not feel comfortable walking with him yet. Pt exclusively gets around at time of evaluation in a manual wheelchair. Pt's transfers have been going fairly well, with his caregivers performing CGA, however pt will occasionally need assistance with placement of his left UE and LE due to neglect. Pt's biggest complaint at the moment is leg pain, his reports they have tried PT, Massage, CBD il, Tylenol, Oxycodine, and Gabapentin, all with minimal benefit. Prior to CVA, pt was fully independent in all activities. Pt and have garegivers 8 hrs a day for assistance. Prior Treatments and Tests Craniotomy 04/16/19, Acute rehab, Skull fragment replacement 06/26/19, home health PT Prior Functional Status Baseline Function- ADL's Independent Baseline Function- Mobility Independent PT-OP-C Subjective Start: 09/17/19 18:00 Freq: Status: Active Protocol: Document 12/26/19 10:15 LJ (Rec: 12/26/19 15:26 LJ [email or web address]) OP-PT Subjective Patient Comments Patient Comments Pt is very happy with lhis progress PT-OP-G Mobility & Gait Start: 09/17/19 18:00 Freq: Status: Active Protocol: Document 12/10/19 11:15 DCW (Rec: 12/10/19 11:55 DCW [id number]) OP Mobility Evaluation Bed Mobility Rolling Independent Supine to and from Sit Independent Transfers Sit to Stand SBA Bed to Chair Transfers SBA OP Gait Assessment Gait Gait Assistance Required: Contact Guard Assist Distance (Feet) 280 Able to Maintain Weight Bearing Status Yes During Gait Assistive Devices Assistive Device None,Trent Walker Orthotic/Prosthetic Devices or Brace: No Gait Deviations General Gait Pattern Antalgic,Ataxic,Decreased Stride Length,Decreased Feet Clearance,Flexed Trunk,Lateral Trunk Lean Factors Limiting Gait Function Factors Limiting Gait Function Abnormal Tonal Influences, Decreased Activity Tolerance, Decreased Sensation,Decreased Strength,Incoordination,Poor Balance,Poor Safety Awareness Stair Climbing Evaluation Evaluation Level of Assist On Stairs Contact Guard Assistance Devices Stair Climbing Assistive Devices Right Railing Technique/Endurance Stair Climbing Direction Ascend and Descend Stair Climbing Technique Step Over Step Number of Steps Climbed 4 Stair Climbing Set # Repetitions (reps) 6 Comments Stair Climbing Comments Constant verbal cues to limit left scissoring and continuing [id number] gait pattern PT-OP-H Neuro Start: 09/17/19 18:00 Freq: Status: Active Protocol: Document 12/10/19 11:15 DCW (Rec: 12/10/19 11:55 DCW [id number]) Sensation Evaluation Gross Sensation Gross Sensation Left UE Impaired,Left LE Impaired Sensation Description Paresthesia,Numbness,Pain Location Details Left Leg Light Touch Absent Sharp/Dull Absent Deep Pressure Intact/Normal Proprioception (Position) Impaired Kinesthesia (Movement) Impaired Deep Tendon Reflex & Clonus Assessment Deep Tendon Reflex Left Achilles Deep Tendon Reflex 3+ Normal But Brisk Left Patellar Deep Tendon Reflex 3+ Normal But Brisk Ankle Clonus Left Clonus Assessment Sustained Muscle Tone Tone Assessment Left Lower Extremity Flexor Tone Description Moderate Hypotonicity PT-OP-M Strength Start: 09/17/19 18:00 Freq: Status: Active Protocol: Document 12/10/19 11:15 DCW (Rec: 12/10/19 11:55 DCW [id number]) Hip Strength Hip Manual Muscle Testing Left Flexion (L2) 3 Fair Extension (S1) 3- Fair- Abduction 2+ Poor+ Adduction 3+ Fair+ External Rotation 3 Fair Internal Rotation 3- Fair- Reason Not Measured Muscle Tone Knee Strength Knee Manual Muscle Testing Right Flexion (S2) 5 Normal Extension (L3) 5 Normal Left Flexion (S2) 4- Good- Extension (L3) 4 Good Reason Not Measured Muscle Tone,Pain Ankle/Foot Strength Ankle and Foot Manual Muscle Testing Right Dorsiflexion (L4) 5 Normal Plantarflexion (S1) 5 Normal Left Dorsiflexion (L4) 4- Good- Plantarflexion (S1) 3+ Fair+ Inversion 3- Fair- Eversion (S1) 3- Fair- PT-OP-Q Treatments Start: 09/17/19 18:00 Freq: Status: Active Protocol: Document 12/24/19 11:17 DCW (Rec: 12/24/19 12:06 DCW [id number]) Gym Equipment Shuttle Recovery Unilateral Heel Raises Details Left Resistance 37# Unilateral Squats Details Left Resistance 75# Shuttle Recovery Platform Stable Bilateral Squats Resistance 125# Shuttle Recovery Platform Stable Therapeutic Exercises Standing Exercises SLS Standing Exercise Name SLS Equipment Used // bars Comments CGA Other Exercises Sit<->Stand Other Exercise Name Sit<->Stand Equipment Used // bars Comments VCs for foot placement and L knee extension Gait Training Gait Activity No AD Description Amb /s AD Device Used None Level of Assistance SBA->CGA Distance/Duration 950' Comments VCs to promote heel-toe gait, extend left knee during stance phase PT-OP-R Modalities Start: 09/17/19 18:00 Freq: Status: Active Protocol: Document 10/10/19 13:45 HH (Rec: 10/10/19 16:17 HH [email or web address]) Hot Pack/Cold Pack Treatment moist heat Location L hip adductors Patient Position Hooklying Treatment Duration (minutes) 10 Patient Tolerance Good PT-OP-S Aquatic Treatment Start: 09/17/19 18:00 Freq: Status: Active Protocol: Document 12/26/19 10:15 LJ (Rec: 12/26/19 15:26 LJ [email or web address]) Aquatics Treatment Pool Entry/Exit Pool Entry/Exit Method Lift Assistance Minimal Assistance Water Walking Forward with emphasis on reciprocal gait pattern Water Level Chest Level Level of Assistance Standby Assistance,Contact Guard Assistance,Minimal Assistance,Verbal Cues Comments manual assist with UEs, wetvest and sm blue float Marching Water Level Chest Level Walking Equipment wet vest Level of Assistance Standby Assistance,Contact Guard Assistance,Minimal Assistance,Verbal Cues Sideways Water Level Chest Level Walking Equipment wet vest Level of Assistance Standby Assistance,Contact Guard Assistance,Minimal Assistance,Verbal Cues Forwards Water Level Chest Level Walking Equipment wet vest Level of Assistance Standby Assistance,Contact Guard Assistance,Minimal Assistance,Verbal Cues Lower Extremity Exercises SL aquats Details HH on wall Body Position Standing Water Level Waist Level Equipment wetvest Reps/Duration 20 Comments VC to extend knee knee extensions Details seated in lift chair Equipment Ankle Weight- 5.0# Reps/Duration 20 B Comments seated in lift SLS Details bracing LLE Body Position Standing Water Level Chest Level Equipment vest Reps/Duration 2 min marching at wall Water Level Chest Level Reps/Duration 5 min Comments opposite UE/LE tapping wall squats Body Position Standing Water Level Chest Level Reps/Duration 20x Comments min to mod assist for balance Lower Extremity Stretches hip flexors Details at wall Body Position Standing Water Level Waist Level Reps/Duration 2x45 Comments manually assisted HS Details at wall Body Position Sitting Water Level Waist Level Equipment wet vest Reps/Duration 2x45 Comments sitting in lift chair assisted Balance standing bal Water Level Waist Level Reps/Duration 3 min Kindred Activities Kindred Activities Running Equipment wet vest,squaxin float, 3# each LE Duration 8 min Comments emphasis on opposite UE/LE pattern with runnning PT-OP-T Assessment and Plan Start: 09/17/19 18:00 Freq: Status: Active Protocol: Document 12/26/19 10:15 ADA (Rec: 12/26/19 15:26 ADA [email or web address]) Physical Therapy Assessment Impairments Impairments Activity Tolerance,Balance, Coordination,Functional Activities,Functional Mobility ,Gait,Pain,ROM,Sensation, Strength,Tone,Transfers Goals Six Impairment Decreased Static Balance Aquatic Director Goal (LTG) Pt to score 35/56 or better on the Adler Balance LTG Duration 03/10/20 Five Impairment Pt uses R rail and step-over gait pattern ascending stairs Aquatic Director Goal (LTG) Pt to ascend/descend stairs independently without use of rail LTG Duration 03/10/20 Four Impairment Pt demonstrates strength impairment throughout left LE Aquatic Director Goal (LTG) Pt to display MMT >3+/5 through L LE LTG Duration 03/10/20 - Improving Three Impairment Pt SBA for transfers and bed mobility d/t Left Neglect Detention Goal (LTG) Pt to demonstrate independent transfers and bed mobility with an ability to address left LE and UE 80% of the time LTG Duration Met Two Impairment Pt ambulates 280' CGA /s an AD Short Term Goal (STG) Prior gait goals met STG Duration Met Detention Goal (LTG) Pt to ambulate 400' SBA independently LTG Duration 03/10/20 One Impairment Pt does not have an appropriate home exercise program Short Term Goal (STG) Pt to be independent and compliant with an appropriate HEP STG Duration Met Assessment Summary Assessment Emphasis today on reciprocal gait pattern in shallow and deep water. Pt was assisted with pattern in standing at wall and walking across pool with max cuing and manual assist with LUE. Pt cued to extend knees and swing right LE farther forward to even out stride length. Once started, pt could maintain pattern for several steps then need additional cuing. Deep water session time pt was using BK stroke and recip UE/LE pattern while running. Physical Therapy Plan Frequency and Duration Frequency of Treatment 2x/Week Duration of Treatment 3 months Plan of Care Start Date 12/10/19 Plan of Care End Date 03/10/20 Therapeutic Interventions Therapeutic Interventions Aquatic Therapy,Balance Training,Coordination Training ,Gait Training,Home Exercise Program,Manual Therapy, Neuromuscular Re-education, Patient/Caregiver Education, Self-Care/Home Management, Therapeutic Activities, Therapeutic Exercises Modalities Cold Pack/Ice Massage,Electric Stimulation,Hot Packs, Ultrasound Next Visit Focus/Plan Next Note Type Treatment Note Next Visit Plan Continue strengthening, balance and gait training with NMR. Move into deep water for cardio training and core stabilization. Revisit step ups/down with boxes and add obstacle course when appropriate.
--- NOTE | 2019-12-31 12:14 | PT.OTN ---
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) Physical Therapy Treatment Note PT-OP-A Visit Information Start: 09/17/19 18:00 Freq: Status: Active Protocol: Document 12/31/19 11:15 DCW (Rec: 12/31/19 12:14 DCW [id number]) Out-Patient Physical Therapy Visit Information Visit Information Visit Type Treatment Note Visit Start Time 11:15 Visit Stop Time 12:00 Total Visit Minutes 45 Visit Number 27 Number of THERMOSPRAY OPERATOR Visits 0 Evaluation Information Evaluation Date 09/17/19 PT-OP-B Current Condition Start: 09/17/19 18:00 Freq: Status: Active Protocol: Document 09/17/19 12:00 DCW (Rec: 09/18/19 10:29 DCW [id number]) Current Condition History of Current Condition Onset Date 04/14/19 Current Complaints Hemiparesis secondary to CVA History of Current Condition Pt is a 69 year old male presenting to skilled outpatient physical therapy with left-side neglect, hemiparesis, loss of independence, and difficulty walking following an intraparenchymal hemorrhage on 04/14/19. Pt was transferred from [facility] to [facility], where a craniotomy was performed on 04/16/19. Pt completed 7 weeks of rehab/ recovery at [facility], and then underwent a second surgery on 06/26/19 to replace the skull fragment. Pt was then at an acute rehab facility 06/30-07/18/19, and since then has been receiving home health physical therapy. Pt presents today with limited left-sided function, left visual and physical neglect, difficulty with transfers, decreased activity tolerance, decreased gait, and many other secondary effects following his CVA. Pt has been working on ambulation with a trent walker with home health, and his states he has walked around 100' a few times, but always with a therapist, as she does not feel comfortable walking with him yet. Pt exclusively gets around at time of evaluation in a manual wheelchair. Pt's transfers have been going fairly well, with his caregivers performing CGA, however pt will occasionally need assistance with placement of his left UE and LE due to neglect. Pt's biggest complaint at the moment is leg pain, his reports they have tried PT, Massage, CBD il, Tylenol, Oxycodine, and Gabapentin, all with minimal benefit. Prior to CVA, pt was fully independent in all activities. Pt and have garegivers 8 hrs a day for assistance. Prior Treatments and Tests Craniotomy 04/16/19, Acute rehab, Skull fragment replacement 06/26/19, home health PT Prior Functional Status Baseline Function- ADL's Independent Baseline Function- Mobility Independent PT-OP-C Subjective Start: 09/17/19 18:00 Freq: Status: Active Protocol: Document 12/31/19 11:15 DCW (Rec: 12/31/19 12:14 DCW [id number]) OP-PT Subjective Patient Comments Patient Comments Pt has been getting up to walk at home, despite protests from, without assistance, to show off to friends. PT-OP-G Mobility & Gait Start: 09/17/19 18:00 Freq: Status: Active Protocol: Document 12/10/19 11:15 DCW (Rec: 12/10/19 11:55 DCW [id number]) OP Mobility Evaluation Bed Mobility Rolling Independent Supine to and from Sit Independent Transfers Sit to Stand SBA Bed to Chair Transfers SBA OP Gait Assessment Gait Gait Assistance Required: Contact Guard Assist Distance (Feet) 280 Able to Maintain Weight Bearing Status Yes During Gait Assistive Devices Assistive Device None,Trent Walker Orthotic/Prosthetic Devices or Brace: No Gait Deviations General Gait Pattern Antalgic,Ataxic,Decreased Stride Length,Decreased Feet Clearance,Flexed Trunk,Lateral Trunk Lean Factors Limiting Gait Function Factors Limiting Gait Function Abnormal Tonal Influences, Decreased Activity Tolerance, Decreased Sensation,Decreased Strength,Incoordination,Poor Balance,Poor Safety Awareness Stair Climbing Evaluation Evaluation Level of Assist On Stairs Contact Guard Assistance Devices Stair Climbing Assistive Devices Right Railing Technique/Endurance Stair Climbing Direction Ascend and Descend Stair Climbing Technique Step Over Step Number of Steps Climbed 4 Stair Climbing Set # Repetitions (reps) 6 Comments Stair Climbing Comments Constant verbal cues to limit left scissoring and continuing [id number] gait pattern PT-OP-H Neuro Start: 09/17/19 18:00 Freq: Status: Active Protocol: Document 12/10/19 11:15 DCW (Rec: 12/10/19 11:55 DCW [id number]) Sensation Evaluation Gross Sensation Gross Sensation Left UE Impaired,Left LE Impaired Sensation Description Paresthesia,Numbness,Pain Location Details Left Leg Light Touch Absent Sharp/Dull Absent Deep Pressure Intact/Normal Proprioception (Position) Impaired Kinesthesia (Movement) Impaired Deep Tendon Reflex & Clonus Assessment Deep Tendon Reflex Left Achilles Deep Tendon Reflex 3+ Normal But Brisk Left Patellar Deep Tendon Reflex 3+ Normal But Brisk Ankle Clonus Left Clonus Assessment Sustained Muscle Tone Tone Assessment Left Lower Extremity Flexor Tone Description Moderate Hypotonicity PT-OP-M Strength Start: 09/17/19 18:00 Freq: Status: Active Protocol: Document 12/10/19 11:15 DCW (Rec: 12/10/19 11:55 DCW [id number]) Hip Strength Hip Manual Muscle Testing Left Flexion (L2) 3 Fair Extension (S1) 3- Fair- Abduction 2+ Poor+ Adduction 3+ Fair+ External Rotation 3 Fair Internal Rotation 3- Fair- Reason Not Measured Muscle Tone Knee Strength Knee Manual Muscle Testing Right Flexion (S2) 5 Normal Extension (L3) 5 Normal Left Flexion (S2) 4- Good- Extension (L3) 4 Good Reason Not Measured Muscle Tone,Pain Ankle/Foot Strength Ankle and Foot Manual Muscle Testing Right Dorsiflexion (L4) 5 Normal Plantarflexion (S1) 5 Normal Left Dorsiflexion (L4) 4- Good- Plantarflexion (S1) 3+ Fair+ Inversion 3- Fair- Eversion (S1) 3- Fair- PT-OP-Q Treatments Start: 09/17/19 18:00 Freq: Status: Active Protocol: Document 12/31/19 11:15 DCW (Rec: 12/31/19 12:14 DCW [id number]) Therapeutic Exercises Sitting Exercises Gastroc Stretch Sitting Exercise Name Gastroc Stretch Side bilateral Equipment Used LEONARD Dorsiflexion Sitting Exercise Name Dorsiflexion Side left Resistance Lv 2 Equipment Used T-band Gait Training Gait Activity No AD Description Amb /s AD Device Used None Level of Assistance SBA->CGA Distance/Duration 850' Comments VCs to promote heel-toe gait, extend left knee during stance phase Neuro Re-Education Treatment Balance Activities Cone ramon campos rahman Details C[facility] Easter Egg Rahman Comments searching visual field, ambulation, balance, bending PT-OP-R Modalities Start: 09/17/19 18:00 Freq: Status: Active Protocol: Document 10/10/19 13:45 HH (Rec: 10/10/19 16:17 HH [id number]) Hot Pack/Cold Pack Treatment moist heat Location L hip adductors Patient Position Hooklying Treatment Duration (minutes) 10 Patient Tolerance Good PT-OP-S Aquatic Treatment Start: 09/17/19 18:00 Freq: Status: Active Protocol: Document 12/26/19 10:15 LJ (Rec: 12/26/19 15:26 LJ [id number]) Aquatics Treatment Pool Entry/Exit Pool Entry/Exit Method Lift Assistance Minimal Assistance Water Walking Forward with emphasis on reciprocal gait pattern Water Level Chest Level Level of Assistance Standby Assistance,Contact Guard Assistance,Minimal Assistance,Verbal Cues Comments manual assist with UEs, wetvest and sm blue float Marching Water Level Chest Level Walking Equipment wet vest Level of Assistance Standby Assistance,Contact Guard Assistance,Minimal Assistance,Verbal Cues Sideways Water Level Chest Level Walking Equipment wet vest Level of Assistance Standby Assistance,Contact Guard Assistance,Minimal Assistance,Verbal Cues Forwards Water Level Chest Level Walking Equipment wet vest Level of Assistance Standby Assistance,Contact Guard Assistance,Minimal Assistance,Verbal Cues Lower Extremity Exercises SL aquats Details HH on wall Body Position Standing Water Level Waist Level Equipment wetvest Reps/Duration 20 Comments VC to extend knee knee extensions Details seated in lift chair Equipment Ankle Weight- 5.0# Reps/Duration 20 B Comments seated in lift SLS Details bracing LLE Body Position Standing Water Level Chest Level Equipment vest Reps/Duration 2 min marching at wall Water Level Chest Level Reps/Duration 5 min Comments opposite UE/LE tapping wall squats Body Position Standing Water Level Chest Level Reps/Duration 20x Comments min to mod assist for balance Lower Extremity Stretches hip flexors Details at wall Body Position Standing Water Level Waist Level Reps/Duration 2x45 Comments manually assisted HS Details at wall Body Position Sitting Water Level Waist Level Equipment wet vest Reps/Duration 2x45 Comments sitting in lift chair assisted Balance standing bal Water Level Waist Level Reps/Duration 3 min [place] Activities [place] Activities Running Equipment wet vest,[place] float, 3# each LE Duration 8 min Comments emphasis on opposite UE/LE pattern with runnning PT-OP-T Assessment and Plan Start: 09/17/19 18:00 Freq: Status: Active Protocol: Document 12/31/19 11:15 DCW (Rec: 12/31/19 12:14 DCW [id number]) Physical Therapy Assessment Impairments Impairments Activity Tolerance,Balance, Coordination,Functional Activities,Functional Mobility ,Gait,Pain,ROM,Sensation, Strength,Tone,Transfers Goals Six Impairment Decreased Static Balance Surgical Assistant Certified Goal (LTG) Pt to score 35/56 or better on the Adler Balance LTG Duration 03/10/20 Five Impairment Pt uses R rail and step-over gait pattern ascending stairs Surgical Assistant Certified Goal (LTG) Pt to ascend/descend stairs independently without use of rail LTG Duration 03/10/20 Four Impairment Pt demonstrates strength impairment throughout left LE Surgical Assistant Certified Goal (LTG) Pt to display MMT >3+/5 through L LE LTG Duration 03/10/20 - Improving Three Impairment Pt SBA for transfers and bed mobility d/t Left Neglect Fdc Goal (LTG) Pt to demonstrate independent transfers and bed mobility with an ability to address left LE and UE 80% of the time LTG Duration Met Two Impairment Pt ambulates 280' CGA /s an AD Short Term Goal (STG) Prior gait goals met STG Duration Met Surgical Assistant Certified Goal (LTG) Pt to ambulate 400' SBA independently LTG Duration 03/10/20 One Impairment Pt does not have an appropriate home exercise program Short Term Goal (STG) Pt to be independent and compliant with an appropriate HEP STG Duration Met Assessment Summary Assessment Pt continues to require verbal cues during ambulation for heel-toe and knee extension. Did well with visual field challenges today, able to scan and look for hidden cones with minimal cues. Physical Therapy Plan Frequency and Duration Frequency of Treatment 2x/Week Duration of Treatment 3 months Plan of Care Start Date 12/10/19 Plan of Care End Date 03/10/20 Therapeutic Interventions Therapeutic Interventions Aquatic Therapy,Balance Training,Coordination Training ,Gait Training,Home Exercise Program,Manual Therapy, Neuromuscular Re-education, Patient/Caregiver Education, Self-Care/Home Management, Therapeutic Activities, Therapeutic Exercises Modalities Cold Pack/Ice Massage,Electric Stimulation,Hot Packs, Ultrasound Next Visit Focus/Plan Next Note Type Treatment Note Next Visit Plan Assess pt tolerance to visual field challenges and continue to challenge, continue strengthening, balance and gait training with NMR. Move into deep water for cardio training and core stabilization. Revisit step ups/down with boxes and add obstacle course when appropriate.
--- NOTE | 2020-01-02 13:33 | PT.OTN ---
Current Diagnoses Nontraumatic intracerebral hemorrhage, unspecified (01/02/20) Hemiplegia and hemiparesis following cerebral infarction affecting left non-dominant side (01/02/20) Pain in left leg (01/02/20) Pain in left lower leg (01/02/20) Other abnormalities of gait and mobility (01/02/20) Abnormal posture (01/02/20) Neurologic neglect syndrome (01/02/20) Physical Therapy Treatment Note PT-OP-A Visit Information Start: 09/17/19 18:00 Freq: Status: Active Protocol: Document 01/02/20 11:10 LJ (Rec: 01/02/20 13:33 LJ [id number]) Out-Patient Physical Therapy Visit Information Visit Information Visit Type Aquatic Treatment Note Visit Start Time 11:10 Visit Stop Time 11:45 Total Visit Minutes 35 Visit Number 35 Number of COMPLIANCE ANALYST Visits 1 Evaluation Information Evaluation Date 09/17/19 PT-OP-B Current Condition Start: 09/17/19 18:00 Freq: Status: Active Protocol: Document 09/17/19 12:00 DCW (Rec: 09/18/19 10:29 DCW [id number]) Current Condition History of Current Condition Onset Date 04/14/19 Current Complaints Hemiparesis secondary to CVA History of Current Condition Pt is a 69 year old male presenting to skilled outpatient physical therapy with left-side neglect, hemiparesis, loss of independence, and difficulty walking following an intraparenchymal hemorrhage on 04/14/19. Pt was transferred from [facility] to [facility], where a craniotomy was performed on 04/16/19. Pt completed 7 weeks of rehab/ recovery at [facility], and then underwent a second surgery on 06/26/19 to replace the skull fragment. Pt was then at an acute rehab facility 06/30-07/18/19, and since then has been receiving home health physical therapy. Pt presents today with limited left-sided function, left visual and physical neglect, difficulty with transfers, decreased activity tolerance, decreased gait, and many other secondary effects following his CVA. Pt has been working on ambulation with a trent walker with home health, and his states he has walked around 100' a few times, but always with a therapist, as she does not feel comfortable walking with him yet. Pt exclusively gets around at time of evaluation in a manual wheelchair. Pt's transfers have been going fairly well, with his caregivers performing CGA, however pt will occasionally need assistance with placement of his left UE and LE due to neglect. Pt's biggest complaint at the moment is leg pain, his reports they have tried PT, Massage, CBD il, Tylenol, Oxycodine, and Gabapentin, all with minimal benefit. Prior to CVA, pt was fully independent in all activities. Pt and have garegivers 8 hrs a day for assistance. Prior Treatments and Tests Craniotomy 04/16/19, Acute rehab, Skull fragment replacement 06/26/19, home health PT Prior Functional Status Baseline Function- ADL's Independent Baseline Function- Mobility Independent PT-OP-C Subjective Start: 09/17/19 18:00 Freq: Status: Active Protocol: Document 01/02/20 11:10 LJ (Rec: 01/02/20 13:33 LJ [id number]) OP-PT Subjective Patient Comments Patient Comments Pt has been walking more at home and would like to try the stairs at some point. PT-OP-G Mobility & Gait Start: 09/17/19 18:00 Freq: Status: Active Protocol: Document 12/10/19 11:15 DCW (Rec: 12/10/19 11:55 DCW [id number]) OP Mobility Evaluation Bed Mobility Rolling Independent Supine to and from Sit Independent Transfers Sit to Stand SBA Bed to Chair Transfers SBA OP Gait Assessment Gait Gait Assistance Required: Contact Guard Assist Distance (Feet) 280 Able to Maintain Weight Bearing Status Yes During Gait Assistive Devices Assistive Device None,Trent Walker Orthotic/Prosthetic Devices or Brace: No Gait Deviations General Gait Pattern Antalgic,Ataxic,Decreased Stride Length,Decreased Feet Clearance,Flexed Trunk,Lateral Trunk Lean Factors Limiting Gait Function Factors Limiting Gait Function Abnormal Tonal Influences, Decreased Activity Tolerance, Decreased Sensation,Decreased Strength,Incoordination,Poor Balance,Poor Safety Awareness Stair Climbing Evaluation Evaluation Level of Assist On Stairs Contact Guard Assistance Devices Stair Climbing Assistive Devices Right Railing Technique/Endurance Stair Climbing Direction Ascend and Descend Stair Climbing Technique Step Over Step Number of Steps Climbed 4 Stair Climbing Set # Repetitions (reps) 6 Comments Stair Climbing Comments Constant verbal cues to limit left scissoring and continuing [id number] gait pattern PT-OP-H Neuro Start: 09/17/19 18:00 Freq: Status: Active Protocol: Document 12/10/19 11:15 DCW (Rec: 12/10/19 11:55 DCW [id number]) Sensation Evaluation Gross Sensation Gross Sensation Left UE Impaired,Left LE Impaired Sensation Description Paresthesia,Numbness,Pain Location Details Left Leg Light Touch Absent Sharp/Dull Absent Deep Pressure Intact/Normal Proprioception (Position) Impaired Kinesthesia (Movement) Impaired Deep Tendon Reflex & Clonus Assessment Deep Tendon Reflex Left Achilles Deep Tendon Reflex 3+ Normal But Brisk Left Patellar Deep Tendon Reflex 3+ Normal But Brisk Ankle Clonus Left Clonus Assessment Sustained Muscle Tone Tone Assessment Left Lower Extremity Flexor Tone Description Moderate Hypotonicity PT-OP-M Strength Start: 09/17/19 18:00 Freq: Status: Active Protocol: Document 12/10/19 11:15 DCW (Rec: 12/10/19 11:55 DCW [id number]) Hip Strength Hip Manual Muscle Testing Left Flexion (L2) 3 Fair Extension (S1) 3- Fair- Abduction 2+ Poor+ Adduction 3+ Fair+ External Rotation 3 Fair Internal Rotation 3- Fair- Reason Not Measured Muscle Tone Knee Strength Knee Manual Muscle Testing Right Flexion (S2) 5 Normal Extension (L3) 5 Normal Left Flexion (S2) 4- Good- Extension (L3) 4 Good Reason Not Measured Muscle Tone,Pain Ankle/Foot Strength Ankle and Foot Manual Muscle Testing Right Dorsiflexion (L4) 5 Normal Plantarflexion (S1) 5 Normal Left Dorsiflexion (L4) 4- Good- Plantarflexion (S1) 3+ Fair+ Inversion 3- Fair- Eversion (S1) 3- Fair- PT-OP-Q Treatments Start: 09/17/19 18:00 Freq: Status: Active Protocol: Document 12/31/19 11:15 DCW (Rec: 12/31/19 12:14 DCW [id number]) Therapeutic Exercises Sitting Exercises Gastroc Stretch Sitting Exercise Name Gastroc Stretch Side bilateral Equipment Used LEONARD Dorsiflexion Sitting Exercise Name Dorsiflexion Side left Resistance Lv 2 Equipment Used T-band Gait Training Gait Activity No AD Description Amb /s AD Device Used None Level of Assistance SBA->CGA Distance/Duration 850' Comments VCs to promote heel-toe gait, extend left knee during stance phase Neuro Re-Education Treatment Balance Activities [facility]one easter egg rahman Details Dereje Drake Rahman Comments searching visual field, ambulation, balance, bending PT-OP-R Modalities Start: 09/17/19 18:00 Freq: Status: Active Protocol: Document 10/10/19 13:45 HH (Rec: 10/10/19 16:17 HH [id number]) Hot Pack/Cold Pack Treatment moist heat Location L hip adductors Patient Position Hooklying Treatment Duration (minutes) 10 Patient Tolerance Good PT-OP-S Aquatic Treatment Start: 09/17/19 18:00 Freq: Status: Active Protocol: Document 01/02/20 11:10 LJ (Rec: 01/02/20 13:33 LJ [id number]) Aquatics Treatment Pool Entry/Exit Pool Entry/Exit Method Lift Assistance Minimal Assistance Water Walking Forward with emphasis on reciprocal gait pattern Water Level Chest Level Level of Assistance Standby Assistance,Contact Guard Assistance,Minimal Assistance,Verbal Cues Comments manual assist with UEs, wetvest, sm float on LUE, #2.5 ankle wt on LLE Backwards Water Level Chest Level Walking Equipment vest Level of Assistance Contact Guard Assistance, Minimal Assistance,Verbal Cues Comments manual assist with UEs, wetvest, sm float on LUE, #2.5 ankle wt on LLE start stop walking forward and backward Water Level Chest Level Walking Equipment vest Level of Assistance Contact Guard Assistance, Minimal Assistance,Moderate Assistance,Verbal Cues Comments manual assist with UEs, wetvest, sm float on LUE, #2.5 ankle wt on LLE Marching Water Level Chest Level Walking Equipment wet vest, UE float, #2.5 ankle wt Level of Assistance Standby Assistance,Contact Guard Assistance,Minimal Assistance,Verbal Cues Sideways Water Level Chest Level Walking Equipment wet vest, UE float, #2.5 ankle wt Level of Assistance Standby Assistance,Contact Guard Assistance,Minimal Assistance,Verbal Cues Lower Extremity Exercises SLS Details bracing LLE Body Position Standing Water Level Chest Level Equipment vest Reps/Duration 1 min x2 hip extension Water Level Chest Level Equipment wet vest, #3.5 Reps/Duration 10x bilat HS curls Water Level Chest Level Equipment wet vest, #3.5 Reps/Duration 20 bilat Lower Extremity Stretches hip flexors Details at wall Body Position Standing Water Level Waist Level Reps/Duration 2x45 Comments manually assisted HS Details at wall Body Position Sitting Water Level Waist Level Equipment wet vest Reps/Duration 2x45 Comments sitting in lift chair assisted Upper Extremity Exercises breastroke UE's Body Position Standing Water Level Chest Level Reps/Duration 2 min Comments during walking and deep water Balance step ups Details step ups/down using boxes Body Position Standing Water Level Waist Level Equipment 8 boxes Comments mod verbal cues for coordination [place] Activities [place] Activities Running Equipment wet vest,wainwright float, 3# each LE Duration 10 min Comments emphasis on opposite UE/LE pattern with runnning assist with directioning PT-OP-T Assessment and Plan Start: 09/17/19 18:00 Freq: Status: Active Protocol: Document 01/02/20 11:10 LJ (Rec: 01/02/20 13:33 LJ [id number]) Physical Therapy Assessment Impairments Impairments Activity Tolerance,Balance, Coordination,Functional Activities,Functional Mobility ,Gait,Pain,ROM,Sensation, Strength,Tone,Transfers Goals Six Impairment Decreased Static Balance Filler Wiper Goal (LTG) Pt to score 35/56 or better on the Adler Balance LTG Duration 03/10/20 Five Impairment Pt uses R rail and step-over gait pattern ascending stairs Residential Goal (LTG) Pt to ascend/descend stairs independently without use of rail LTG Duration 03/10/20 Four Impairment Pt demonstrates strength impairment throughout left LE Residential Goal (LTG) Pt to display MMT >3+/5 through L LE LTG Duration 03/10/20 - Improving Three Impairment Pt SBA for transfers and bed mobility d/t Left Neglect Residential Goal (LTG) Pt to demonstrate independent transfers and bed mobility with an ability to address left LE and UE 80% of the time LTG Duration Met Two Impairment Pt ambulates 280' CGA /s an AD Short Term Goal (STG) Prior gait goals met STG Duration Met Filler Wiper Goal (LTG) Pt to ambulate 400' SBA independently LTG Duration 03/10/20 One Impairment Pt does not have an appropriate home exercise program Short Term Goal (STG) Pt to be independent and compliant with an appropriate HEP STG Duration Met Assessment Summary Assessment Pt was somewhat impulsive today with gait training in pool. Required cues for directioning and posture. Pt has tendency to lean forward to create momentum and has difficulty stopping. When slowed sown, he is able to stop with one step and use of UEs. Pt is more able to involve yessi ROGERSE in deepwater breast stroke when cued. Physical Therapy Plan Frequency and Duration Frequency of Treatment 2x/Week Duration of Treatment 3 months Plan of Care Start Date 12/10/19 Plan of Care End Date 03/10/20 Therapeutic Interventions Therapeutic Interventions Aquatic Therapy,Balance Training,Coordination Training ,Gait Training,Home Exercise Program,Manual Therapy, Neuromuscular Re-education, Patient/Caregiver Education, Self-Care/Home Management, Therapeutic Activities, Therapeutic Exercises Modalities Cold Pack/Ice Massage,Electric Stimulation,Hot Packs, Ultrasound Next Visit Focus/Plan Next Note Type Treatment Note Next Visit Plan Continue to challenge, continue strengthening, balance and gait training with NMR. Move into deep water for cardio training and core stabilization. Revisit step ups/down with boxes and add obstacle course when appropriate. Attempt first step on stairs if appropriate.
--- NOTE | 2020-01-07 12:22 | PT.OTN ---
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) Physical Therapy Treatment Note PT-OP-A Visit Information Start: 09/17/19 18:00 Freq: Status: Active Protocol: Document 01/07/20 11:20 DCW (Rec: 01/07/20 12:22 DCW [id number]) Out-Patient Physical Therapy Visit Information Visit Information Visit Type Treatment Note Visit Start Time 11:20 Visit Stop Time 12:05 Total Visit Minutes 45 Visit Number 29 Number of WEIGHT COUNT OPERATOR Visits 0 Evaluation Information Evaluation Date 09/17/19 PT-OP-B Current Condition Start: 09/17/19 18:00 Freq: Status: Active Protocol: Document 09/17/19 12:00 DCW (Rec: 09/18/19 10:29 DCW [id number]) Current Condition History of Current Condition Onset Date 04/14/19 Current Complaints Hemiparesis secondary to CVA History of Current Condition Pt is a 69 year old male presenting to skilled outpatient physical therapy with left-side neglect, hemiparesis, loss of independence, and difficulty walking following an intraparenchymal hemorrhage on 04/14/19. Pt was transferred from [facility] to [facility], where a craniotomy was performed on 04/16/19. Pt completed 7 weeks of rehab/ recovery at [facility], and then underwent a second surgery on 06/26/19 to replace the skull fragment. Pt was then at an acute rehab facility 06/30-07/18/19, and since then has been receiving home health physical therapy. Pt presents today with limited left-sided function, left visual and physical neglect, difficulty with transfers, decreased activity tolerance, decreased gait, and many other secondary effects following his CVA. Pt has been working on ambulation with a trent walker with home health, and his states he has walked around 100' a few times, but always with a therapist, as she does not feel comfortable walking with him yet. Pt exclusively gets around at time of evaluation in a manual wheelchair. Pt's transfers have been going fairly well, with his caregivers performing CGA, however pt will occasionally need assistance with placement of his left UE and LE due to neglect. Pt's biggest complaint at the moment is leg pain, his reports they have tried PT, Massage, CBD il, Tylenol, Oxycodine, and Gabapentin, all with minimal benefit. Prior to CVA, pt was fully independent in all activities. Pt and have garegivers 8 hrs a day for assistance. Prior Treatments and Tests Craniotomy 04/16/19, Acute rehab, Skull fragment replacement 06/26/19, home health PT Prior Functional Status Baseline Function- ADL's Independent Baseline Function- Mobility Independent PT-OP-C Subjective Start: 09/17/19 18:00 Freq: Status: Active Protocol: Document 01/07/20 11:20 DCW (Rec: 01/07/20 12:22 DCW [id number]) OP-PT Subjective Patient Comments Patient Comments Pt reports he had a fall on Sunday, was standing with his cane, looked up at the top of his bookshelf, and fell backward. Pt reports he was able to recover pretty well, and get himself up. PT-OP-G Mobility & Gait Start: 09/17/19 18:00 Freq: Status: Active Protocol: Document 12/10/19 11:15 DCW (Rec: 12/10/19 11:55 DCW [id number]) OP Mobility Evaluation Bed Mobility Rolling Independent Supine to and from Sit Independent Transfers Sit to Stand SBA Bed to Chair Transfers SBA OP Gait Assessment Gait Gait Assistance Required: Contact Guard Assist Distance (Feet) 280 Able to Maintain Weight Bearing Status Yes During Gait Assistive Devices Assistive Device None,Trent Walker Orthotic/Prosthetic Devices or Brace: No Gait Deviations General Gait Pattern Antalgic,Ataxic,Decreased Stride Length,Decreased Feet Clearance,Flexed Trunk,Lateral Trunk Lean Factors Limiting Gait Function Factors Limiting Gait Function Abnormal Tonal Influences, Decreased Activity Tolerance, Decreased Sensation,Decreased Strength,Incoordination,Poor Balance,Poor Safety Awareness Stair Climbing Evaluation Evaluation Level of Assist On Stairs Contact Guard Assistance Devices Stair Climbing Assistive Devices Right Railing Technique/Endurance Stair Climbing Direction Ascend and Descend Stair Climbing Technique Step Over Step Number of Steps Climbed 4 Stair Climbing Set # Repetitions (reps) 6 Comments Stair Climbing Comments Constant verbal cues to limit left scissoring and continuing [id number] gait pattern PT-OP-H Neuro Start: 09/17/19 18:00 Freq: Status: Active Protocol: Document 12/10/19 11:15 DCW (Rec: 12/10/19 11:55 DCW [id number]) Sensation Evaluation Gross Sensation Gross Sensation Left UE Impaired,Left LE Impaired Sensation Description Paresthesia,Numbness,Pain Location Details Left Leg Light Touch Absent Sharp/Dull Absent Deep Pressure Intact/Normal Proprioception (Position) Impaired Kinesthesia (Movement) Impaired Deep Tendon Reflex & Clonus Assessment Deep Tendon Reflex Left Achilles Deep Tendon Reflex 3+ Normal But Brisk Left Patellar Deep Tendon Reflex 3+ Normal But Brisk Ankle Clonus Left Clonus Assessment Sustained Muscle Tone Tone Assessment Left Lower Extremity Flexor Tone Description Moderate Hypotonicity PT-OP-M Strength Start: 09/17/19 18:00 Freq: Status: Active Protocol: Document 12/10/19 11:15 DCW (Rec: 12/10/19 11:55 DCW [id number]) Hip Strength Hip Manual Muscle Testing Left Flexion (L2) 3 Fair Extension (S1) 3- Fair- Abduction 2+ Poor+ Adduction 3+ Fair+ External Rotation 3 Fair Internal Rotation 3- Fair- Reason Not Measured Muscle Tone Knee Strength Knee Manual Muscle Testing Right Flexion (S2) 5 Normal Extension (L3) 5 Normal Left Flexion (S2) 4- Good- Extension (L3) 4 Good Reason Not Measured Muscle Tone,Pain Ankle/Foot Strength Ankle and Foot Manual Muscle Testing Right Dorsiflexion (L4) 5 Normal Plantarflexion (S1) 5 Normal Left Dorsiflexion (L4) 4- Good- Plantarflexion (S1) 3+ Fair+ Inversion 3- Fair- Eversion (S1) 3- Fair- PT-OP-Q Treatments Start: 09/17/19 18:00 Freq: Status: Active Protocol: Document 01/07/20 11:20 DCW (Rec: 01/07/20 12:22 DCW [id number]) Therapeutic Activity Therapeutic Activity 1 Name Floor->chair fall recovery Reps/Minutes x2 Comments VCs for technique, LE and UE positioning Gait Training Gait Activity No AD Description Amb /s AD Device Used None Level of Assistance SBA->CGA Distance/Duration 1330' Comments VCs to promote heel-toe gait, extend left knee during stance phase PT-OP-R Modalities Start: 09/17/19 18:00 Freq: Status: Active Protocol: Document 10/10/19 13:45 HH (Rec: 10/10/19 16:17 HH [id number]) Hot Pack/Cold Pack Treatment moist heat Location L hip adductors Patient Position Hooklying Treatment Duration (minutes) 10 Patient Tolerance Good PT-OP-S Aquatic Treatment Start: 09/17/19 18:00 Freq: Status: Active Protocol: Document 01/02/20 11:10 LJ (Rec: 01/02/20 13:33 LJ [id number]) Aquatics Treatment Pool Entry/Exit Pool Entry/Exit Method Lift Assistance Minimal Assistance Water Walking Forward with emphasis on reciprocal gait pattern Water Level Chest Level Level of Assistance Standby Assistance,Contact Guard Assistance,Minimal Assistance,Verbal Cues Comments manual assist with UEs, wetvest, sm float on LUE, #2.5 ankle wt on LLE Backwards Water Level Chest Level Walking Equipment vest Level of Assistance Contact Guard Assistance, Minimal Assistance,Verbal Cues Comments manual assist with UEs, wetvest, sm float on LUE, #2.5 ankle wt on LLE start stop walking forward and backward Water Level Chest Level Walking Equipment vest Level of Assistance Contact Guard Assistance, Minimal Assistance,Moderate Assistance,Verbal Cues Comments manual assist with UEs, wetvest, sm float on LUE, #2.5 ankle wt on LLE Marching Water Level Chest Level Walking Equipment wet vest, UE float, #2.5 ankle wt Level of Assistance Standby Assistance,Contact Guard Assistance,Minimal Assistance,Verbal Cues Sideways Water Level Chest Level Walking Equipment wet vest, UE float, #2.5 ankle wt Level of Assistance Standby Assistance,Contact Guard Assistance,Minimal Assistance,Verbal Cues Lower Extremity Exercises SLS Details bracing LLE Body Position Standing Water Level Chest Level Equipment vest Reps/Duration 1 min x2 hip extension Water Level Chest Level Equipment wet vest, #3.5 Reps/Duration 10x bilat HS curls Water Level Chest Level Equipment wet vest, #3.5 Reps/Duration 20 bilat Lower Extremity Stretches hip flexors Details at wall Body Position Standing Water Level Waist Level Reps/Duration 2x45 Comments manually assisted HS Details at wall Body Position Sitting Water Level Waist Level Equipment wet vest Reps/Duration 2x45 Comments sitting in lift chair assisted Upper Extremity Exercises breastroke UE's Body Position Standing Water Level Chest Level Reps/Duration 2 min Comments during walking and deep water Balance step ups Details step ups/down using boxes Body Position Standing Water Level Waist Level Equipment 8 boxes Comments mod verbal cues for coordination [place] Activities [place] Activities Running Equipment wet vest,[place] float, 3# each LE Duration 10 min Comments emphasis on opposite UE/LE pattern with runnning assist with directioning PT-OP-T Assessment and Plan Start: 09/17/19 18:00 Freq: Status: Active Protocol: Document 01/07/20 11:20 DCW (Rec: 01/07/20 12:22 DCW [id number]) Physical Therapy Assessment Impairments Impairments Activity Tolerance,Balance, Coordination,Functional Activities,Functional Mobility ,Gait,Pain,ROM,Sensation, Strength,Tone,Transfers Goals Six Impairment Decreased Static Balance Half-Way Goal (LTG) Pt to score 35/56 or better on the [place] Balance LTG Duration 03/10/20 Five Impairment Pt uses R rail and step-over gait pattern ascending stairs Senior Mobile Application Developer Goal (LTG) Pt to ascend/descend stairs independently without use of rail LTG Duration 03/10/20 Four Impairment Pt demonstrates strength impairment throughout left LE Senior Mobile Application Developer Goal (LTG) Pt to display MMT >3+/5 through L LE LTG Duration 03/10/20 - Improving Three Impairment Pt SBA for transfers and bed mobility d/t Left Neglect Half-Way Goal (LTG) Pt to demonstrate independent transfers and bed mobility with an ability to address left LE and UE 80% of the time LTG Duration Met Two Impairment Pt ambulates 280' CGA /s an AD Short Term Goal (STG) Prior gait goals met STG Duration Met Senior Mobile Application Developer Goal (LTG) Pt to ambulate 400' SBA independently LTG Duration 03/10/20 One Impairment Pt does not have an appropriate home exercise program Short Term Goal (STG) Pt to be independent and compliant with an appropriate HEP STG Duration Met Assessment Summary Assessment Pt did very well with fall recovery today, although did need repeated verbal cues for proper positioning. Pt ambulated a personal best 1330 ' at once without an assistive device , still required reminders for knee extension, heel-toe gait pattern, and scanning to compensate for his homonymous hemianopia visual field defict. Physical Therapy Plan Frequency and Duration Frequency of Treatment 2x/Week Duration of Treatment 3 months Plan of Care Start Date 12/10/19 Plan of Care End Date 03/10/20 Therapeutic Interventions Therapeutic Interventions Aquatic Therapy,Balance Training,Coordination Training ,Gait Training,Home Exercise Program,Manual Therapy, Neuromuscular Re-education, Patient/Caregiver Education, Self-Care/Home Management, Therapeutic Activities, Therapeutic Exercises Modalities Cold Pack/Ice Massage,Electric Stimulation,Hot Packs, Ultrasound Next Visit Focus/Plan Next Note Type Treatment Note Next Visit Plan Continue to challenge, continue strengthening, balance and gait training with NMR. Move into deep water for cardio training and core stabilization. Revisit step ups/down with boxes and add obstacle course when appropriate. Attempt first step on stairs if appropriate.
--- NOTE | 2020-01-09 13:08 | PT.OTN ---
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) Physical Therapy Treatment Note PT-OP-A Visit Information Start: 09/17/19 18:00 Freq: Status: Active Protocol: Document 01/09/20 11:00 LJ (Rec: 01/09/20 13:07 LJ [email or web address]) Out-Patient Physical Therapy Visit Information Visit Information Visit Type Aquatic Treatment Note Visit Start Time 11:00 Visit Stop Time 11:45 Total Visit Minutes 45 Visit Number 30 Number of OYSTER BUYER Visits 1 Evaluation Information Evaluation Date 09/17/19 PT-OP-B Current Condition Start: 09/17/19 18:00 Freq: Status: Active Protocol: Document 09/17/19 12:00 DCW (Rec: 09/18/19 10:29 DCW [id number]) Current Condition History of Current Condition Onset Date 04/14/19 Current Complaints Hemiparesis secondary to CVA History of Current Condition Pt is a 69 year old male presenting to skilled outpatient physical therapy with left-side neglect, hemiparesis, loss of independence, and difficulty walking following an intraparenchymal hemorrhage on 04/14/19. Pt was transferred from [facility] to [facility], where a craniotomy was performed on 04/16/19. Pt completed 7 weeks of rehab/ recovery at [facility], and then underwent a second surgery on 06/26/19 to replace the skull fragment. Pt was then at an acute rehab facility 06/30-07/18/19, and since then has been receiving home health physical therapy. Pt presents today with limited left-sided function, left visual and physical neglect, difficulty with transfers, decreased activity tolerance, decreased gait, and many other secondary effects following his CVA. Pt has been working on ambulation with a trent walker with home health, and his states he has walked around 100' a few times, but always with a therapist, as she does not feel comfortable walking with him yet. Pt exclusively gets around at time of evaluation in a manual wheelchair. Pt's transfers have been going fairly well, with his caregivers performing CGA, however pt will occasionally need assistance with placement of his left UE and LE due to neglect. Pt's biggest complaint at the moment is leg pain, his reports they have tried PT, Massage, CBD il, Tylenol, Oxycodine, and Gabapentin, all with minimal benefit. Prior to CVA, pt was fully independent in all activities. Pt and have garegivers 8 hrs a day for assistance. Prior Treatments and Tests Craniotomy 04/16/19, Acute rehab, Skull fragment replacement 06/26/19, home health PT Prior Functional Status Baseline Function- ADL's Independent Baseline Function- Mobility Independent PT-OP-C Subjective Start: 09/17/19 18:00 Freq: Status: Active Protocol: Document 01/09/20 11:00 LJ (Rec: 01/09/20 13:07 LJ [email or web address]) OP-PT Subjective Patient Comments Patient Comments Pt reports again that he fell on Sunday but was not hurt. He stated he prefers to use his Trent walker rather than his cane. Feels more unsteady using hhis cane. He also has a new pair of aquatic shoes which are more supportive than the previous ones PT-OP-G Mobility & Gait Start: 09/17/19 18:00 Freq: Status: Active Protocol: Document 12/10/19 11:15 DCW (Rec: 12/10/19 11:55 DCW [id number]) OP Mobility Evaluation Bed Mobility Rolling Independent Supine to and from Sit Independent Transfers Sit to Stand SBA Bed to Chair Transfers SBA OP Gait Assessment Gait Gait Assistance Required: Contact Guard Assist Distance (Feet) 280 Able to Maintain Weight Bearing Status Yes During Gait Assistive Devices Assistive Device None,Trent Walker Orthotic/Prosthetic Devices or Brace: No Gait Deviations General Gait Pattern Antalgic,Ataxic,Decreased Stride Length,Decreased Feet Clearance,Flexed Trunk,Lateral Trunk Lean Factors Limiting Gait Function Factors Limiting Gait Function Abnormal Tonal Influences, Decreased Activity Tolerance, Decreased Sensation,Decreased Strength,Incoordination,Poor Balance,Poor Safety Awareness Stair Climbing Evaluation Evaluation Level of Assist On Stairs Contact Guard Assistance Devices Stair Climbing Assistive Devices Right Railing Technique/Endurance Stair Climbing Direction Ascend and Descend Stair Climbing Technique Step Over Step Number of Steps Climbed 4 Stair Climbing Set # Repetitions (reps) 6 Comments Stair Climbing Comments Constant verbal cues to limit left scissoring and continuing [id number] gait pattern PT-OP-H Neuro Start: 09/17/19 18:00 Freq: Status: Active Protocol: Document 12/10/19 11:15 DCW (Rec: 12/10/19 11:55 DCW [id number]) Sensation Evaluation Gross Sensation Gross Sensation Left UE Impaired,Left LE Impaired Sensation Description Paresthesia,Numbness,Pain Location Details Left Leg Light Touch Absent Sharp/Dull Absent Deep Pressure Intact/Normal Proprioception (Position) Impaired Kinesthesia (Movement) Impaired Deep Tendon Reflex & Clonus Assessment Deep Tendon Reflex Left Achilles Deep Tendon Reflex 3+ Normal But Brisk Left Patellar Deep Tendon Reflex 3+ Normal But Brisk Ankle Clonus Left Clonus Assessment Sustained Muscle Tone Tone Assessment Left Lower Extremity Flexor Tone Description Moderate Hypotonicity PT-OP-M Strength Start: 09/17/19 18:00 Freq: Status: Active Protocol: Document 12/10/19 11:15 DCW (Rec: 12/10/19 11:55 DCW [id number]) Hip Strength Hip Manual Muscle Testing Left Flexion (L2) 3 Fair Extension (S1) 3- Fair- Abduction 2+ Poor+ Adduction 3+ Fair+ External Rotation 3 Fair Internal Rotation 3- Fair- Reason Not Measured Muscle Tone Knee Strength Knee Manual Muscle Testing Right Flexion (S2) 5 Normal Extension (L3) 5 Normal Left Flexion (S2) 4- Good- Extension (L3) 4 Good Reason Not Measured Muscle Tone,Pain Ankle/Foot Strength Ankle and Foot Manual Muscle Testing Right Dorsiflexion (L4) 5 Normal Plantarflexion (S1) 5 Normal Left Dorsiflexion (L4) 4- Good- Plantarflexion (S1) 3+ Fair+ Inversion 3- Fair- Eversion (S1) 3- Fair- PT-OP-Q Treatments Start: 09/17/19 18:00 Freq: Status: Active Protocol: Document 01/07/20 11:20 DCW (Rec: 01/07/20 12:22 DCW [id number]) Therapeutic Activity Therapeutic Activity 1 Name Floor->chair fall recovery Reps/Minutes x2 Comments VCs for technique, LE and UE positioning Gait Training Gait Activity No AD Description Amb /s AD Device Used None Level of Assistance SBA->CGA Distance/Duration 1330' Comments VCs to promote heel-toe gait, extend left knee during stance phase PT-OP-R Modalities Start: 09/17/19 18:00 Freq: Status: Active Protocol: Document 10/10/19 13:45 HH (Rec: 10/10/19 16:17 HH [email or web address]) Hot Pack/Cold Pack Treatment moist heat Location L hip adductors Patient Position Hooklying Treatment Duration (minutes) 10 Patient Tolerance Good PT-OP-S Aquatic Treatment Start: 09/17/19 18:00 Freq: Status: Active Protocol: Document 01/09/20 11:00 LJ (Rec: 01/09/20 13:07 LJ [email or web address]) Aquatics Treatment Pool Entry/Exit Pool Entry/Exit Method Lift Assistance Minimal Assistance Water Walking Forward with emphasis on reciprocal gait pattern Water Level Chest Level Level of Assistance Standby Assistance,Contact Guard Assistance,Minimal Assistance,Verbal Cues Comments wetvest, sm float on LUE, #3. 75 ankle wt on LLE Backwards Water Level Chest Level Walking Equipment vest Level of Assistance Contact Guard Assistance, Verbal Cues Comments wetvest, sm float on LUE, #3. 75 ankle wt on LLE start stop walking forward and backward Water Level Chest Level Walking Equipment vest Level of Assistance Contact Guard Assistance, Verbal Cues Comments wetvest, sm float on LUE, #3. 75 ankle wt on LLE Sideways Water Level Chest Level Walking Equipment wet vest, UE float, #2.5 ankle wt Level of Assistance Standby Assistance,Contact Guard Assistance,Minimal Assistance,Verbal Cues Lower Extremity Exercises SLS Details bracing LLE Body Position Standing Water Level Chest Level Equipment vest Reps/Duration 1 min x1 hip extension Water Level Chest Level Equipment wet vest, #3.75 Reps/Duration 15x bilat HS curls Water Level Chest Level Equipment wet vest, #3.75 Reps/Duration 20 bilat squats Body Position Standing Water Level Chest Level Reps/Duration 20x Lower Extremity Stretches hip flexors Details at wall Body Position Standing Water Level Waist Level Reps/Duration 2x45 Comments manually assisted HS Details at wall Body Position Sitting Water Level Waist Level Equipment wet vest Reps/Duration 2x45 Comments sitting in lift chair assisted Upper Extremity Exercises push/pull Body Position Standing Water Level Chest Level Reps/Duration 1 min Comments long barbell, mod assist for bal breastroke UE's Body Position Standing Water Level Chest Level Reps/Duration 2 min Comments during walking and deep water hor ab/ad Body Position Standing Water Level Chest Level Reps/Duration 2 min Balance step ups Details step ups/down using boxes Body Position Standing Water Level Waist Level Equipment 8 boxes Comments mod verbal cues for coordination standing bal Water Level Waist Level Reps/Duration 1 min Comments pushing on shoulders and hips Bend Activities Bend Activities Running Equipment wet vest,nez perce float, 3# each LE Duration 10 min Comments emphasis on opposite UE/LE pattern with runnning assist with directioning Swim Strokes Breastroke Other Equipment Used wetvest Laps/Duration 2 min Flutter Other Equipment Used vest, Laps/Duration 2 min Comments on back Other supine to standing Water Level Chest Level Equipment wet vest Reps/Duration x5 Comments Bony PT-OP-T Assessment and Plan Start: 09/17/19 18:00 Freq: Status: Active Protocol: Document 01/09/20 11:00 ADA (Rec: 01/09/20 13:07 ADA [email or web address]) Physical Therapy Assessment Rehab Potential Rehabilitation Potential Fair Evaluation Complexity Number of Personal Factors/Comorbidities 3 or More Number of Body Systems Impaired 4 or More Clinical Presentation at Evaluation Unstable Impairments Impairments Activity Tolerance,Balance, Coordination,Functional Activities,Functional Mobility ,Gait,Pain,ROM,Sensation, Strength,Tone,Transfers Goals Six Impairment Decreased Static Balance Residential Goal (LTG) Pt to score 35/56 or better on the Adler Balance LTG Duration 03/10/20 Five Impairment Pt uses R rail and step-over gait pattern ascending stairs Voucher Clerk Goal (LTG) Pt to ascend/descend stairs independently without use of rail LTG Duration 03/10/20 Four Impairment Pt demonstrates strength impairment throughout left LE Voucher Clerk Goal (LTG) Pt to display MMT >3+/5 through L LE LTG Duration 03/10/20 - Improving Three Impairment Pt SBA for transfers and bed mobility d/t Left Neglect Voucher Clerk Goal (LTG) Pt to demonstrate independent transfers and bed mobility with an ability to address left LE and UE 80% of the time LTG Duration Met Two Impairment Pt ambulates 280' CGA /s an AD Short Term Goal (STG) Prior gait goals met STG Duration Met Residential Goal (LTG) Pt to ambulate 400' SBA independently LTG Duration 03/10/20 One Impairment Pt does not have an appropriate home exercise program Short Term Goal (STG) Pt to be independent and compliant with an appropriate HEP STG Duration Met Assessment Summary Assessment Pt is improving with gait and balance activities. Bony-ModA for directioning due to field of vision impairment. Pt still needs lots of cuing in deep water for maintaining upright posture. Physical Therapy Plan Frequency and Duration Frequency of Treatment 2x/Week Duration of Treatment 3 months Plan of Care Start Date 12/10/19 Plan of Care End Date 03/10/20 Therapeutic Interventions Therapeutic Interventions Aquatic Therapy,Balance Training,Coordination Training ,Gait Training,Home Exercise Program,Manual Therapy, Neuromuscular Re-education, Patient/Caregiver Education, Self-Care/Home Management, Therapeutic Activities, Therapeutic Exercises Modalities Cold Pack/Ice Massage,Electric Stimulation,Hot Packs, Ultrasound Next Visit Focus/Plan Next Note Type Treatment Note Next Visit Plan Continue to challenge, continue strengthening, balance and gait training with NMR. Move into deep water for cardio training and core stabilization. Revisit step ups/down with boxes and add obstacle course when appropriate. Attempt first step on stairs if appropriate.
--- NOTE | 2020-01-14 12:12 | PT.OTN ---
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) Physical Therapy Treatment Note PT-OP-A Visit Information Start: 09/17/19 18:00 Freq: Status: Active Protocol: Document 01/14/20 11:15 DCW (Rec: 01/14/20 12:10 DCW [id number]) Out-Patient Physical Therapy Visit Information Visit Information Visit Type Treatment Note Visit Start Time 11:15 Visit Stop Time 12:00 Total Visit Minutes 45 Visit Number 31 Number of CLINICAL OPERATIONS SPECIALIST Visits 0 Evaluation Information Evaluation Date 09/17/19 PT-OP-B Current Condition Start: 09/17/19 18:00 Freq: Status: Active Protocol: Document 09/17/19 12:00 DCW (Rec: 09/18/19 10:29 DCW [id number]) Current Condition History of Current Condition Onset Date 04/14/19 Current Complaints Hemiparesis secondary to CVA History of Current Condition Pt is a 69 year old male presenting to skilled outpatient physical therapy with left-side neglect, hemiparesis, loss of independence, and difficulty walking following an intraparenchymal hemorrhage on 04/14/19. Pt was transferred from [facility] to [facility], where a craniotomy was performed on 04/16/19. Pt completed 7 weeks of rehab/ recovery at [facility], and then underwent a second surgery on 06/26/19 to replace the skull fragment. Pt was then at an acute rehab facility 06/30-07/18/19, and since then has been receiving home health physical therapy. Pt presents today with limited left-sided function, left visual and physical neglect, difficulty with transfers, decreased activity tolerance, decreased gait, and many other secondary effects following his CVA. Pt has been working on ambulation with a trent walker with home health, and his states he has walked around 100' a few times, but always with a therapist, as she does not feel comfortable walking with him yet. Pt exclusively gets around at time of evaluation in a manual wheelchair. Pt's transfers have been going fairly well, with his caregivers performing CGA, however pt will occasionally need assistance with placement of his left UE and LE due to neglect. Pt's biggest complaint at the moment is leg pain, his reports they have tried PT, Massage, CBD il, Tylenol, Oxycodine, and Gabapentin, all with minimal benefit. Prior to CVA, pt was fully independent in all activities. Pt and have garegivers 8 hrs a day for assistance. Prior Treatments and Tests Craniotomy 04/16/19, Acute rehab, Skull fragment replacement 06/26/19, home health PT Prior Functional Status Baseline Function- ADL's Independent Baseline Function- Mobility Independent PT-OP-C Subjective Start: 09/17/19 18:00 Freq: Status: Active Protocol: Document 01/14/20 11:15 DCW (Rec: 01/14/20 12:12 DCW [id number]) OP-PT Subjective Patient Comments Patient Comments Pt has been using his new prisim glasses to help cut down on his left neglect for ~ 1 hour daily, pt is unsure if they are helpful yet. PT-OP-G Mobility & Gait Start: 09/17/19 18:00 Freq: Status: Active Protocol: Document 12/10/19 11:15 DCW (Rec: 12/10/19 11:55 DCW [id number]) OP Mobility Evaluation Bed Mobility Rolling Independent Supine to and from Sit Independent Transfers Sit to Stand SBA Bed to Chair Transfers SBA OP Gait Assessment Gait Gait Assistance Required: Contact Guard Assist Distance (Feet) 280 Able to Maintain Weight Bearing Status Yes During Gait Assistive Devices Assistive Device None,Trent Walker Orthotic/Prosthetic Devices or Brace: No Gait Deviations General Gait Pattern Antalgic,Ataxic,Decreased Stride Length,Decreased Feet Clearance,Flexed Trunk,Lateral Trunk Lean Factors Limiting Gait Function Factors Limiting Gait Function Abnormal Tonal Influences, Decreased Activity Tolerance, Decreased Sensation,Decreased Strength,Incoordination,Poor Balance,Poor Safety Awareness Stair Climbing Evaluation Evaluation Level of Assist On Stairs Contact Guard Assistance Devices Stair Climbing Assistive Devices Right Railing Technique/Endurance Stair Climbing Direction Ascend and Descend Stair Climbing Technique Step Over Step Number of Steps Climbed 4 Stair Climbing Set # Repetitions (reps) 6 Comments Stair Climbing Comments Constant verbal cues to limit left scissoring and continuing [id number] gait pattern PT-OP-H Neuro Start: 09/17/19 18:00 Freq: Status: Active Protocol: Document 12/10/19 11:15 DCW (Rec: 12/10/19 11:55 DCW [id number]) Sensation Evaluation Gross Sensation Gross Sensation Left UE Impaired,Left LE Impaired Sensation Description Paresthesia,Numbness,Pain Location Details Left Leg Light Touch Absent Sharp/Dull Absent Deep Pressure Intact/Normal Proprioception (Position) Impaired Kinesthesia (Movement) Impaired Deep Tendon Reflex & Clonus Assessment Deep Tendon Reflex Left Achilles Deep Tendon Reflex 3+ Normal But Brisk Left Patellar Deep Tendon Reflex 3+ Normal But Brisk Ankle Clonus Left Clonus Assessment Sustained Muscle Tone Tone Assessment Left Lower Extremity Flexor Tone Description Moderate Hypotonicity PT-OP-M Strength Start: 09/17/19 18:00 Freq: Status: Active Protocol: Document 12/10/19 11:15 DCW (Rec: 12/10/19 11:55 DCW [id number]) Hip Strength Hip Manual Muscle Testing Left Flexion (L2) 3 Fair Extension (S1) 3- Fair- Abduction 2+ Poor+ Adduction 3+ Fair+ External Rotation 3 Fair Internal Rotation 3- Fair- Reason Not Measured Muscle Tone Knee Strength Knee Manual Muscle Testing Right Flexion (S2) 5 Normal Extension (L3) 5 Normal Left Flexion (S2) 4- Good- Extension (L3) 4 Good Reason Not Measured Muscle Tone,Pain Ankle/Foot Strength Ankle and Foot Manual Muscle Testing Right Dorsiflexion (L4) 5 Normal Plantarflexion (S1) 5 Normal Left Dorsiflexion (L4) 4- Good- Plantarflexion (S1) 3+ Fair+ Inversion 3- Fair- Eversion (S1) 3- Fair- PT-OP-Q Treatments Start: 09/17/19 18:00 Freq: Status: Active Protocol: Document 01/14/20 11:15 DCW (Rec: 01/14/20 12:10 DCW [id number]) Therapeutic Exercises Supine Exercises Hamstring stretch Supine Exercise Name HS stretch Other Exercises Tandem Ambulation Other Exercise Name Tandem Amb in // bars Comments focus on L UE for stability, VCs to remind pt to not leave his left hand h Gait Training Gait Activity No AD Description No AD, outdoor navigating uneven surfaces Device Used None Level of Assistance SBA->CGA Distance/Duration 775' Comments VCs to promote heel-toe gait, extend left knee during stance phase PT-OP-R Modalities Start: 09/17/19 18:00 Freq: Status: Active Protocol: Document 10/10/19 13:45 HH (Rec: 10/10/19 16:17 HH [id number]) Hot Pack/Cold Pack Treatment moist heat Location L hip adductors Patient Position Hooklying Treatment Duration (minutes) 10 Patient Tolerance Good PT-OP-S Aquatic Treatment Start: 09/17/19 18:00 Freq: Status: Active Protocol: Document 01/09/20 11:00 LJ (Rec: 01/09/20 13:07 LJ [id number]) Aquatics Treatment Pool Entry/Exit Pool Entry/Exit Method Lift Assistance Minimal Assistance Water Walking Forward with emphasis on reciprocal gait pattern Water Level Chest Level Level of Assistance Standby Assistance,Contact Guard Assistance,Minimal Assistance,Verbal Cues Comments wetvest, sm float on LUE, #3. 75 ankle wt on LLE Backwards Water Level Chest Level Walking Equipment vest Level of Assistance Contact Guard Assistance, Verbal Cues Comments wetvest, sm float on LUE, #3. 75 ankle wt on LLE start stop walking forward and backward Water Level Chest Level Walking Equipment vest Level of Assistance Contact Guard Assistance, Verbal Cues Comments wetvest, sm float on LUE, #3. 75 ankle wt on LLE Sideways Water Level Chest Level Walking Equipment wet vest, UE float, #2.5 ankle wt Level of Assistance Standby Assistance,Contact Guard Assistance,Minimal Assistance,Verbal Cues Lower Extremity Exercises SLS Details bracing LLE Body Position Standing Water Level Chest Level Equipment vest Reps/Duration 1 min x1 hip extension Water Level Chest Level Equipment wet vest, #3.75 Reps/Duration 15x bilat HS curls Water Level Chest Level Equipment wet vest, #3.75 Reps/Duration 20 bilat squats Body Position Standing Water Level Chest Level Reps/Duration 20x Lower Extremity Stretches hip flexors Details at wall Body Position Standing Water Level Waist Level Reps/Duration 2x45 Comments manually assisted HS Details at wall Body Position Sitting Water Level Waist Level Equipment wet vest Reps/Duration 2x45 Comments sitting in lift chair assisted Upper Extremity Exercises push/pull Body Position Standing Water Level Chest Level Reps/Duration 1 min Comments iain gutierrez, mod assist for bal breastroke UE's Body Position Standing Water Level Chest Level Reps/Duration 2 min Comments during walking and deep water hor ab/ad Body Position Standing Water Level Chest Level Reps/Duration 2 min Balance step ups Details step ups/down using boxes Body Position Standing Water Level Waist Level Equipment 8 boxes Comments mod verbal cues for coordination standing bal Water Level Waist Level Reps/Duration 1 min Comments pushing on shoulders and hips [place] Activities [place] Activities Running Equipment wet vest,[place] float, 3# each LE Duration 10 min Comments emphasis on opposite UE/LE pattern with runnning assist with directioning Swim Strokes Breastroke Other Equipment Used wetvest Laps/Duration 2 min Flutter Other Equipment Used vest, Laps/Duration 2 min Comments on back Other supine to standing Water Level Chest Level Equipment wet vest Reps/Duration x5 Comments Bony PT-OP-T Assessment and Plan Start: 09/17/19 18:00 Freq: Status: Active Protocol: Document 01/14/20 11:15 DCW (Rec: 01/14/20 12:10 DCW [id number]) Physical Therapy Assessment Impairments Impairments Activity Tolerance,Balance, Coordination,Functional Activities,Functional Mobility ,Gait,Pain,ROM,Sensation, Strength,Tone,Transfers Goals Six Impairment Decreased Static Balance Farm [employer] Goal (LTG) Pt to score 35/56 or better on the [place] Balance LTG Duration 03/10/20 Five Impairment Pt uses R rail and step-over gait pattern ascending stairs [employer] Agent Goal (LTG) Pt to ascend/descend stairs independently without use of rail LTG Duration 03/10/20 Four Impairment Pt demonstrates strength impairment throughout left LE [employer] Goal (LTG) Pt to display MMT >3+/5 through L LE LTG Duration 03/10/20 - Improving Three Impairment Pt SBA for transfers and bed mobility d/t Left Neglect Snf Goal (LTG) Pt to demonstrate independent transfers and bed mobility with an ability to address left LE and UE 80% of the time LTG Duration Met Two Impairment Pt ambulates 280' CGA /s an AD Short Term Goal (STG) Prior gait goals met STG Duration Met Snf Goal (LTG) Pt to ambulate 400' SBA independently LTG Duration 03/10/20 One Impairment Pt does not have an appropriate home exercise program Short Term Goal (STG) Pt to be independent and compliant with an appropriate HEP STG Duration Met Assessment Summary Assessment Pt ambulated outdoors for the first time, needed to navigate a grassy hill with damp, soft ground, and go up/down curb. Pt was a little impulsive with curb, stepping up over it when too far away, resulting in LOB which PT needed to assist to prevent fall. Otherwise, pt did very well with uneven surfaces. Physical Therapy Plan Frequency and Duration Frequency of Treatment 2x/Week Duration of Treatment 3 months Plan of Care Start Date 12/10/19 Plan of Care End Date 03/10/20 Therapeutic Interventions Therapeutic Interventions Aquatic Therapy,Balance Training,Coordination Training ,Gait Training,Home Exercise Program,Manual Therapy, Neuromuscular Re-education, Patient/Caregiver Education, Self-Care/Home Management, Therapeutic Activities, Therapeutic Exercises Modalities Cold Pack/Ice Massage,Electric Stimulation,Hot Packs, Ultrasound Next Visit Focus/Plan Next Note Type Treatment Note Next Visit Plan Continue to challenge, continue strengthening, balance and gait training with NMR. Move into deep water for cardio training and core stabilization. Revisit step ups/down with boxes and add obstacle course when appropriate. Attempt first step on stairs if appropriate.
--- NOTE | 2020-01-16 13:26 | PT.OTN ---
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) Physical Therapy Treatment Note PT-OP-A Visit Information Start: 09/17/19 18:00 Freq: Status: Active Protocol: Document 01/16/20 11:00 LJ (Rec: 01/16/20 13:26 LJ [id number]) Out-Patient Physical Therapy Visit Information Visit Information Visit Type Treatment Note Visit Start Time 11:00 Visit Stop Time 11:45 Total Visit Minutes 45 Visit Number 32 Number of ECONOMIC RESEARCH ANALYST Visits 1 Evaluation Information Evaluation Date 09/17/19 PT-OP-B Current Condition Start: 09/17/19 18:00 Freq: Status: Active Protocol: Document 09/17/19 12:00 DCW (Rec: 09/18/19 10:29 DCW [id number]) Current Condition History of Current Condition Onset Date 04/14/19 Current Complaints Hemiparesis secondary to CVA History of Current Condition Pt is a 69 year old male presenting to skilled outpatient physical therapy with left-side neglect, hemiparesis, loss of independence, and difficulty walking following an intraparenchymal hemorrhage on 04/14/19. Pt was transferred from [facility] to [facility], where a craniotomy was performed on 04/16/19. Pt completed 7 weeks of rehab/ recovery at [facility], and then underwent a second surgery on 06/26/19 to replace the skull fragment. Pt was then at an acute rehab facility 06/30-07/18/19, and since then has been receiving home health physical therapy. Pt presents today with limited left-sided function, left visual and physical neglect, difficulty with transfers, decreased activity tolerance, decreased gait, and many other secondary effects following his CVA. Pt has been working on ambulation with a trent walker with home health, and his states he has walked around 100' a few times, but always with a therapist, as she does not feel comfortable walking with him yet. Pt exclusively gets around at time of evaluation in a manual wheelchair. Pt's transfers have been going fairly well, with his caregivers performing CGA, however pt will occasionally need assistance with placement of his left UE and LE due to neglect. Pt's biggest complaint at the moment is leg pain, his reports they have tried PT, Massage, CBD il, Tylenol, Oxycodine, and Gabapentin, all with minimal benefit. Prior to CVA, pt was fully independent in all activities. Pt and have garegivers 8 hrs a day for assistance. Prior Treatments and Tests Craniotomy 04/16/19, Acute rehab, Skull fragment replacement 06/26/19, home health PT Prior Functional Status Baseline Function- ADL's Independent Baseline Function- Mobility Independent PT-OP-C Subjective Start: 09/17/19 18:00 Freq: Status: Active Protocol: Document 01/16/20 11:00 LJ (Rec: 01/16/20 13:26 LJ [id number]) OP-PT Subjective Patient Comments Patient Comments Pt feels he is making good porgress. Has allergy symptoms but feels well enough to participate in therapy. PT-OP-G Mobility & Gait Start: 09/17/19 18:00 Freq: Status: Active Protocol: Document 12/10/19 11:15 DCW (Rec: 12/10/19 11:55 DCW [id number]) OP Mobility Evaluation Bed Mobility Rolling Independent Supine to and from Sit Independent Transfers Sit to Stand SBA Bed to Chair Transfers SBA OP Gait Assessment Gait Gait Assistance Required: Contact Guard Assist Distance (Feet) 280 Able to Maintain Weight Bearing Status Yes During Gait Assistive Devices Assistive Device None,Trent Walker Orthotic/Prosthetic Devices or Brace: No Gait Deviations General Gait Pattern Antalgic,Ataxic,Decreased Stride Length,Decreased Feet Clearance,Flexed Trunk,Lateral Trunk Lean Factors Limiting Gait Function Factors Limiting Gait Function Abnormal Tonal Influences, Decreased Activity Tolerance, Decreased Sensation,Decreased Strength,Incoordination,Poor Balance,Poor Safety Awareness Stair Climbing Evaluation Evaluation Level of Assist On Stairs Contact Guard Assistance Devices Stair Climbing Assistive Devices Right Railing Technique/Endurance Stair Climbing Direction Ascend and Descend Stair Climbing Technique Step Over Step Number of Steps Climbed 4 Stair Climbing Set # Repetitions (reps) 6 Comments Stair Climbing Comments Constant verbal cues to limit left scissoring and continuing [id number] gait pattern PT-OP-H Neuro Start: 09/17/19 18:00 Freq: Status: Active Protocol: Document 12/10/19 11:15 DCW (Rec: 12/10/19 11:55 DCW [id number]) Sensation Evaluation Gross Sensation Gross Sensation Left UE Impaired,Left LE Impaired Sensation Description Paresthesia,Numbness,Pain Location Details Left Leg Light Touch Absent Sharp/Dull Absent Deep Pressure Intact/Normal Proprioception (Position) Impaired Kinesthesia (Movement) Impaired Deep Tendon Reflex & Clonus Assessment Deep Tendon Reflex Left Achilles Deep Tendon Reflex 3+ Normal But Brisk Left Patellar Deep Tendon Reflex 3+ Normal But Brisk Ankle Clonus Left Clonus Assessment Sustained Muscle Tone Tone Assessment Left Lower Extremity Flexor Tone Description Moderate Hypotonicity PT-OP-M Strength Start: 09/17/19 18:00 Freq: Status: Active Protocol: Document 12/10/19 11:15 DCW (Rec: 12/10/19 11:55 DCW [id number]) Hip Strength Hip Manual Muscle Testing Left Flexion (L2) 3 Fair Extension (S1) 3- Fair- Abduction 2+ Poor+ Adduction 3+ Fair+ External Rotation 3 Fair Internal Rotation 3- Fair- Reason Not Measured Muscle Tone Knee Strength Knee Manual Muscle Testing Right Flexion (S2) 5 Normal Extension (L3) 5 Normal Left Flexion (S2) 4- Good- Extension (L3) 4 Good Reason Not Measured Muscle Tone,Pain Ankle/Foot Strength Ankle and Foot Manual Muscle Testing Right Dorsiflexion (L4) 5 Normal Plantarflexion (S1) 5 Normal Left Dorsiflexion (L4) 4- Good- Plantarflexion (S1) 3+ Fair+ Inversion 3- Fair- Eversion (S1) 3- Fair- PT-OP-Q Treatments Start: 09/17/19 18:00 Freq: Status: Active Protocol: Document 01/14/20 11:15 DCW (Rec: 01/14/20 12:10 DCW [id number]) Therapeutic Exercises Supine Exercises Hamstring stretch Supine Exercise Name HS stretch Other Exercises Tandem Ambulation Other Exercise Name Tandem Amb in // bars Comments focus on L UE for stability, VCs to remind pt to not leave his left hand h Gait Training Gait Activity No AD Description No AD, outdoor navigating uneven surfaces Device Used None Level of Assistance SBA->CGA Distance/Duration 775' Comments VCs to promote heel-toe gait, extend left knee during stance phase PT-OP-R Modalities Start: 09/17/19 18:00 Freq: Status: Active Protocol: Document 10/10/19 13:45 HH (Rec: 10/10/19 16:17 HH [id number]) Hot Pack/Cold Pack Treatment moist heat Location L hip adductors Patient Position Hooklying Treatment Duration (minutes) 10 Patient Tolerance Good PT-OP-S Aquatic Treatment Start: 09/17/19 18:00 Freq: Status: Active Protocol: Document 01/16/20 11:00 LJ (Rec: 01/16/20 13:26 LJ [id number]) Aquatics Treatment Pool Entry/Exit Pool Entry/Exit Method Lift Assistance Minimal Assistance Water Walking Forward with emphasis on reciprocal gait pattern Water Level Chest Level Level of Assistance Standby Assistance,Contact Guard Assistance,Minimal Assistance,Verbal Cues Comments wetvest, sm float on LUE, #3. 75 ankle wt on LLE Backwards Water Level Chest Level Walking Equipment vest Level of Assistance Contact Guard Assistance, Verbal Cues Comments wetvest, sm float on LUE, #3. 75 ankle wt on LLE start stop walking forward and backward Water Level Chest Level Walking Equipment vest Level of Assistance Contact Guard Assistance, Verbal Cues Comments wetvest, sm float on LUE, #3. 75 ankle wt on LLE Sideways Water Level Chest Level Walking Equipment wet vest, UE float, #2.5 ankle wt Level of Assistance Standby Assistance,Contact Guard Assistance,Minimal Assistance,Verbal Cues Lower Extremity Exercises SLS Details bracing LLE Body Position Standing Water Level Chest Level Equipment vest Reps/Duration 1 min x1 hip extension Water Level Chest Level Equipment wet vest, #3.75 Reps/Duration 15x bilat HS curls Water Level Chest Level Equipment wet vest, #3.75 Reps/Duration 20 bilat marching at wall Water Level Chest Level Reps/Duration 5 min Comments opposite UE/LE tapping wall Lower Extremity Stretches hip flexors Details at wall Body Position Standing Water Level Waist Level Reps/Duration 2x45 Comments manually assisted HS Details at wall Body Position Sitting Water Level Waist Level Equipment wet vest Reps/Duration 2x45 Comments sitting in lift chair assisted Upper Extremity Exercises breastroke UE's Body Position Standing Water Level Chest Level Reps/Duration 2 min Comments during walking and deep water hor ab/ad Body Position Standing Water Level Chest Level Reps/Duration 2 min Balance step ups Details step ups/down using boxes Body Position Standing Water Level Waist Level Equipment 8 boxes Comments mod verbal cues for coordination [employer] Activities [employer] Activities Cross Country Equipment wet vest, split belt, UE floats Duration 10 min Comments Guy and cues for vertical alignmernt. Swim Strokes Flutter Other Equipment Used vest, Laps/Duration 1 min Comments vertical PT-OP-T Assessment and Plan Start: 09/17/19 18:00 Freq: Status: Active Protocol: Document 01/16/20 11:00 ADA (Rec: 01/16/20 13:26 [id number]) Physical Therapy Assessment Rehab Potential Rehabilitation Potential Fair Evaluation Complexity Number of Personal Factors/Comorbidities 3 or More Number of Body Systems Impaired 4 or More Clinical Presentation at Evaluation Unstable Impairments Impairments Activity Tolerance,Balance, Coordination,Functional Activities,Functional Mobility ,Gait,Pain,ROM,Sensation, Strength,Tone,Transfers Goals Six Impairment Decreased Static Balance Retirement Goal (LTG) Pt to score 35/56 or better on the Adler Balance LTG Duration 03/10/20 Five Impairment Pt uses R rail and step-over gait pattern ascending stairs Retirement Goal (LTG) Pt to ascend/descend stairs independently without use of rail LTG Duration 03/10/20 Four Impairment Pt demonstrates strength impairment throughout left LE Sales Promotion Director Goal (LTG) Pt to display MMT >3+/5 through L LE LTG Duration 03/10/20 - Improving Three Impairment Pt SBA for transfers and bed mobility d/t Left Neglect Sales Promotion Director Goal (LTG) Pt to demonstrate independent transfers and bed mobility with an ability to address left LE and UE 80% of the time LTG Duration Met Two Impairment Pt ambulates 280' CGA /s an AD Short Term Goal (STG) Prior gait goals met STG Duration Met Retirement Goal (LTG) Pt to ambulate 400' SBA independently LTG Duration 03/10/20 One Impairment Pt does not have an appropriate home exercise program Short Term Goal (STG) Pt to be independent and compliant with an appropriate HEP STG Duration Met Assessment Summary Assessment Pt becoming more independent with ambulation in shallow water. Cueing for bilateral knee extension often. Pt is improving with standing balance and start stop walking . Deep water stabilization with less floatation assist is improving. Physical Therapy Plan Frequency and Duration Frequency of Treatment 2x/Week Duration of Treatment 3 months Plan of Care Start Date 12/10/19 Plan of Care End Date 03/10/20 Therapeutic Interventions Therapeutic Interventions Aquatic Therapy,Balance Training,Coordination Training ,Gait Training,Home Exercise Program,Manual Therapy, Neuromuscular Re-education, Patient/Caregiver Education, Self-Care/Home Management, Therapeutic Activities, Therapeutic Exercises Modalities Cold Pack/Ice Massage,Electric Stimulation,Hot Packs, Ultrasound Next Visit Focus/Plan Next Note Type Treatment Note Next Visit Plan Continue to challenge, continue strengthening, balance and gait training with NMR. Move into deep water for cardio training and core stabilization. Revisit step ups/down with boxes and add obstacle course when appropriate. Attempt first step on stairs if appropriate.
--- NOTE | 2020-01-21 12:50 | PT.OTN ---
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) Physical Therapy Treatment Note PT-OP-A Visit Information Start: 09/17/19 18:00 Freq: Status: Active Protocol: Document 01/21/20 12:00 DCW (Rec: 01/21/20 12:50 DCW [id number]) Out-Patient Physical Therapy Visit Information Visit Information Visit Type Treatment Note Visit Start Time 12:00 Visit Stop Time 12:45 Total Visit Minutes 45 Visit Number 33 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 Pt was transferred from [facility] to [facility], where a craniotomy was performed on 04/16/19. Pt completed 7 weeks of rehab/ recovery at [facility], and then underwent a second surgery on 06/26/19 to replace the skull fragment. Pt was then at an acute rehab facility 06/30-07/18/19, and since then has been receiving home health physical therapy. Pt presents today with limited left-sided function, left visual and physical neglect, difficulty with transfers, decreased activity tolerance, decreased gait, and many other secondary effects following his CVA. Pt has been working on ambulation with a trent walker with home health, and his states he has walked around 100' a few times, but always with a therapist, as she does not feel comfortable walking with him yet. Pt exclusively gets around at time of evaluation in a manual wheelchair. Pt's transfers have been going fairly well, with his caregivers performing CGA, however pt will occasionally need assistance with placement of his left UE and LE due to neglect. Pt's biggest complaint at the moment is leg pain, his reports they have tried PT, Massage, CBD il, Tylenol, Oxycodine, and Gabapentin, all with minimal benefit. Prior to CVA, pt was fully independent in all activities. Pt and have garegivers 8 hrs a day for assistance. Prior Treatments and Tests Craniotomy 04/16/19, Acute rehab, Skull fragment replacement 06/26/19, home health PT Prior Functional Status Baseline Function- ADL's Independent Baseline Function- Mobility Independent PT-OP-C Subjective Start: 09/17/19 18:00 Freq: Status: Active Protocol: Document 01/21/20 12:00 DCW (Rec: 01/21/20 12:50 DCW [id number]) OP-PT Subjective Patient Comments Patient Comments Pt's reports that she is not sure if he will be able to get up the stairs with a left ascending railing. PT-OP-G Mobility & Gait Start: 09/17/19 18:00 Freq: Status: Active Protocol: Document 12/10/19 11:15 DCW (Rec: 12/10/19 11:55 DCW [id number]) OP Mobility Evaluation Bed Mobility Rolling Independent Supine to and from Sit Independent Transfers Sit to Stand SBA Bed to Chair Transfers SBA OP Gait Assessment Gait Gait Assistance Required: Contact Guard Assist Distance (Feet) 280 Able to Maintain Weight Bearing Status Yes During Gait Assistive Devices Assistive Device None,Trent Walker Orthotic/Prosthetic Devices or Brace: No Gait Deviations General Gait Pattern Antalgic,Ataxic,Decreased Stride Length,Decreased Feet Clearance,Flexed Trunk,Lateral Trunk Lean Factors Limiting Gait Function Factors Limiting Gait Function Abnormal Tonal Influences, Decreased Activity Tolerance, Decreased Sensation,Decreased Strength,Incoordination,Poor Balance,Poor Safety Awareness Stair Climbing Evaluation Evaluation Level of Assist On Stairs Contact Guard Assistance Devices Stair Climbing Assistive Devices Right Railing Technique/Endurance Stair Climbing Direction Ascend and Descend Stair Climbing Technique Step Over Step Number of Steps Climbed 4 Stair Climbing Set # Repetitions (reps) 6 Comments Stair Climbing Comments Constant verbal cues to limit left scissoring and continuing aevp-bore-ptvo gait pattern PT-OP-H Neuro Start: 09/17/19 18:00 Freq: Status: Active Protocol: Document 12/10/19 11:15 DCW (Rec: 12/10/19 11:55 DCW [id number]) Sensation Evaluation Gross Sensation Gross Sensation Left UE Impaired,Left LE Impaired Sensation Description Paresthesia,Numbness,Pain Location Details Left Leg Light Touch Absent Sharp/Dull Absent Deep Pressure Intact/Normal Proprioception (Position) Impaired Kinesthesia (Movement) Impaired Deep Tendon Reflex & Clonus Assessment Deep Tendon Reflex Left Achilles Deep Tendon Reflex 3+ Normal But Brisk Left Patellar Deep Tendon Reflex 3+ Normal But Brisk Ankle Clonus Left Clonus Assessment Sustained Muscle Tone Tone Assessment Left Lower Extremity Flexor Tone Description Moderate Hypotonicity PT-OP-M Strength Start: 09/17/19 18:00 Freq: Status: Active Protocol: Document 12/10/19 11:15 DCW (Rec: 12/10/19 11:55 DCW [id number]) Hip Strength Hip Manual Muscle Testing Left Flexion (L2) 3 Fair Extension (S1) 3- Fair- Abduction 2+ Poor+ Adduction 3+ Fair+ External Rotation 3 Fair Internal Rotation 3- Fair- Reason Not Measured Muscle Tone Knee Strength Knee Manual Muscle Testing Right Flexion (S2) 5 Normal Extension (L3) 5 Normal Left Flexion (S2) 4- Good- Extension (L3) 4 Good Reason Not Measured Muscle Tone,Pain Ankle/Foot Strength Ankle and Foot Manual Muscle Testing Right Dorsiflexion (L4) 5 Normal Plantarflexion (S1) 5 Normal Left Dorsiflexion (L4) 4- Good- Plantarflexion (S1) 3+ Fair+ Inversion 3- Fair- Eversion (S1) 3- Fair- PT-OP-Q Treatments Start: 09/17/19 18:00 Freq: Status: Active Protocol: Document 01/21/20 12:00 DCW (Rec: 01/21/20 12:50 DCW [id number]) Gym Equipment Shuttle Recovery Unilateral Heel Raises Details Left Resistance 37# Unilateral Squats Details Left Resistance 75# Shuttle Recovery Platform Stable Bilateral Squats Resistance 125# Shuttle Recovery Platform Stable Shuttle Balance Green Details Wide [id number] Comments EO/EC, vs Perturbations Gait Training Gait Activity No AD Description No AD Device Used None Level of Assistance SBA->CGA Distance/Duration 570' Comments VCs to promote heel-toe gait, extend left knee during stance phase Steps Description Ascend/Descend Device Used L ascending rail Level of Assistance CGA Surface 6 Distance/Duration x28 steps Comments Step-through up, step-to down PT-OP-R Modalities Start: 09/17/19 18:00 Freq: Status: Active Protocol: Document 10/10/19 13:45 HH (Rec: 10/10/19 16:17 HH [id number]) Hot Pack/Cold Pack Treatment moist heat Location L hip adductors Patient Position Hooklying Treatment Duration (minutes) 10 Patient Tolerance Good PT-OP-S Aquatic Treatment Start: 09/17/19 18:00 Freq: Status: Active Protocol: Document 01/16/20 11:00 LJ (Rec: 01/16/20 13:26 LJ [id number]) Aquatics Treatment Pool Entry/Exit Pool Entry/Exit Method Lift Assistance Minimal Assistance Water Walking Forward with emphasis on reciprocal gait pattern Water Level Chest Level Level of Assistance Standby Assistance,Contact Guard Assistance,Minimal Assistance,Verbal Cues Comments wetvest, sm float on LUE, #3. 75 ankle wt on LLE Backwards Water Level Chest Level Walking Equipment vest Level of Assistance Contact Guard Assistance, Verbal Cues Comments wetvest, sm float on LUE, #3. 75 ankle wt on LLE start stop walking forward and backward Water Level Chest Level Walking Equipment vest Level of Assistance Contact Guard Assistance, Verbal Cues Comments wetvest, sm float on LUE, #3. 75 ankle wt on LLE Sideways Water Level Chest Level Walking Equipment wet vest, UE float, #2.5 ankle wt Level of Assistance Standby Assistance,Contact Guard Assistance,Minimal Assistance,Verbal Cues Lower Extremity Exercises SLS Details bracing LLE Body Position Standing Water Level Chest Level Equipment vest Reps/Duration 1 min x1 hip extension Water Level Chest Level Equipment wet vest, #3.75 Reps/Duration 15x bilat HS curls Water Level Chest Level Equipment wet vest, #3.75 Reps/Duration 20 bilat marching at wall Water Level Chest Level Reps/Duration 5 min Comments opposite UE/LE tapping wall Lower Extremity Stretches hip flexors Details at wall Body Position Standing Water Level Waist Level Reps/Duration 2x45 Comments manually assisted HS Details at wall Body Position Sitting Water Level Waist Level Equipment wet vest Reps/Duration 2x45 Comments sitting in lift chair assisted Upper Extremity Exercises breastroke UE's Body Position Standing Water Level Chest Level Reps/Duration 2 min Comments during walking and deep water hor ab/ad Body Position Standing Water Level Chest Level Reps/Duration 2 min Balance step ups Details step ups/down using boxes Body Position Standing Water Level Waist Level Equipment 8 boxes Comments mod verbal cues for coordination [place] Activities [place] Activities Cross Country Equipment wet vest, split belt, UE floats Duration 10 min Comments Guy and cues for vertical alignmernt. Swim Strokes Flutter Other Equipment Used vest, Laps/Duration 1 min Comments vertical PT-OP-T Assessment and Plan Start: 09/17/19 18:00 Freq: Status: Active Protocol: Document 01/21/20 12:00 DCW (Rec: 01/21/20 12:50 DCW [id number]) Physical Therapy Assessment Impairments Impairments Activity Tolerance,Balance, Coordination,Functional Activities,Functional Mobility ,Gait,Pain,ROM,Sensation, Strength,Tone,Transfers Goals Six Impairment Decreased Static Balance Pastry Assistant Goal (LTG) Pt to score 35/56 or better on the [place] Balance LTG Duration 03/10/20 Five Impairment Pt uses R rail and step-over gait pattern ascending stairs Pastry Assistant Goal (LTG) Pt to ascend/descend stairs independently without use of rail LTG Duration 03/10/20 Four Impairment Pt demonstrates strength impairment throughout left LE Pastry Assistant Goal (LTG) Pt to display MMT >3+/5 through L LE LTG Duration 03/10/20 - Improving Three Impairment Pt SBA for transfers and bed mobility d/t Left Neglect Pastry Assistant Goal (LTG) Pt to demonstrate independent transfers and bed mobility with an ability to address left LE and UE 80% of the time LTG Duration Met Two Impairment Pt ambulates 280' CGA /s an AD Short Term Goal (STG) Prior gait goals met STG Duration Met Pastry Assistant Goal (LTG) Pt to ambulate 400' SBA independently LTG Duration 03/10/20 One Impairment Pt does not have an appropriate home exercise program Short Term Goal (STG) Pt to be independent and compliant with an appropriate HEP STG Duration Met Assessment Summary Assessment Pt did very well on the large set of stairs in the waiting room, ascend/descend 28 steps with CGA, left ascending rail. PT also attempted Shuttle Balance for the first time, and was able to maintain balance even against perturbation. Physical Therapy Plan Frequency and Duration Frequency of Treatment 2x/Week Duration of Treatment 3 months Plan of Care Start Date 12/10/19 Plan of Care End Date 03/10/20 Therapeutic Interventions Therapeutic Interventions Aquatic Therapy,Balance Training,Coordination Training ,Gait Training,Home Exercise Program,Manual Therapy, Neuromuscular Re-education, Patient/Caregiver Education, Self-Care/Home Management, Therapeutic Activities, Therapeutic Exercises Modalities Cold Pack/Ice Massage,Electric Stimulation,Hot Packs, Ultrasound Next Visit Focus/Plan Next Note Type Treatment Note Next Visit Plan Continue to challenge, continue strengthening, balance and gait training with NMR. Move into deep water for cardio training and core stabilization. Revisit step ups/down with boxes and add obstacle course when appropriate. Attempt first step on stairs if appropriate.
--- NOTE | 2020-01-23 15:37 | PT.OTN ---
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) Physical Therapy Treatment Note PT-OP-A Visit Information Start: 09/17/19 18:00 Freq: Status: Active Protocol: Document 01/23/20 12:30 LJ (Rec: 01/23/20 15:37 LJ [id number]) Out-Patient Physical Therapy Visit Information Visit Information Visit Type Aquatic Treatment Note Visit Start Time 12:30 Visit Stop Time 13:15 Total Visit Minutes 45 Visit Number 34 Number of AUTOMOTIVE BUYER Visits 1 Evaluation Information Evaluation Date 09/17/19 PT-OP-B Current Condition Start: 09/17/19 18:00 Freq: Status: Active Protocol: Document 09/17/19 12:00 DCW (Rec: 09/18/19 10:29 DCW [id number]) Current Condition History of Current Condition Onset Date 04/14/19 Current Complaints Hemiparesis secondary to CVA History of Current Condition Pt is a 69 year old male presenting to skilled outpatient physical therapy with left-side neglect, hemiparesis, loss of independence, and difficulty walking following an intraparenchymal hemorrhage on 04/14/19. Pt was transferred from [facility] to [facility], where a craniotomy was performed on 04/16/19. Pt completed 7 weeks of rehab/ recovery at [facility], and then underwent a second surgery on 06/26/19 to replace the skull fragment. Pt was then at an acute rehab facility 06/30-07/18/19, and since then has been receiving home health physical therapy. Pt presents today with limited left-sided function, left visual and physical neglect, difficulty with transfers, decreased activity tolerance, decreased gait, and many other secondary effects following his CVA. Pt has been working on ambulation with a trent walker with home health, and his states he has walked around 100' a few times, but always with a therapist, as she does not feel comfortable walking with him yet. Pt exclusively gets around at time of evaluation in a manual wheelchair. Pt's transfers have been going fairly well, with his caregivers performing CGA, however pt will occasionally need assistance with placement of his left UE and LE due to neglect. Pt's biggest complaint at the moment is leg pain, his reports they have tried PT, Massage, CBD il, Tylenol, Oxycodine, and Gabapentin, all with minimal benefit. Prior to CVA, pt was fully independent in all activities. Pt and have garegivers 8 hrs a day for assistance. Prior Treatments and Tests Craniotomy 04/16/19, Acute rehab, Skull fragment replacement 06/26/19, home health PT Prior Functional Status Baseline Function- ADL's Independent Baseline Function- Mobility Independent PT-OP-C Subjective Start: 09/17/19 18:00 Freq: Status: Active Protocol: Document 01/23/20 12:30 LJ (Rec: 01/23/20 15:37 LJ [id number]) OP-PT Subjective Patient Comments Patient Comments Pt states he has been walking outside w/o assistive device other than a gait belt PT-OP-G Mobility & Gait Start: 09/17/19 18:00 Freq: Status: Active Protocol: Document 12/10/19 11:15 DCW (Rec: 12/10/19 11:55 DCW [id number]) OP Mobility Evaluation Bed Mobility Rolling Independent Supine to and from Sit Independent Transfers Sit to Stand SBA Bed to Chair Transfers SBA OP Gait Assessment Gait Gait Assistance Required: Contact Guard Assist Distance (Feet) 280 Able to Maintain Weight Bearing Status Yes During Gait Assistive Devices Assistive Device None,Trent Walker Orthotic/Prosthetic Devices or Brace: No Gait Deviations General Gait Pattern Antalgic,Ataxic,Decreased Stride Length,Decreased Feet Clearance,Flexed Trunk,Lateral Trunk Lean Factors Limiting Gait Function Factors Limiting Gait Function Abnormal Tonal Influences, Decreased Activity Tolerance, Decreased Sensation,Decreased Strength,Incoordination,Poor Balance,Poor Safety Awareness Stair Climbing Evaluation Evaluation Level of Assist On Stairs Contact Guard Assistance Devices Stair Climbing Assistive Devices Right Railing Technique/Endurance Stair Climbing Direction Ascend and Descend Stair Climbing Technique Step Over Step Number of Steps Climbed 4 Stair Climbing Set # Repetitions (reps) 6 Comments Stair Climbing Comments Constant verbal cues to limit left scissoring and continuing [id number] gait pattern PT-OP-H Neuro Start: 09/17/19 18:00 Freq: Status: Active Protocol: Document 12/10/19 11:15 DCW (Rec: 12/10/19 11:55 DCW [id number]) Sensation Evaluation Gross Sensation Gross Sensation Left UE Impaired,Left LE Impaired Sensation Description Paresthesia,Numbness,Pain Location Details Left Leg Light Touch Absent Sharp/Dull Absent Deep Pressure Intact/Normal Proprioception (Position) Impaired Kinesthesia (Movement) Impaired Deep Tendon Reflex & Clonus Assessment Deep Tendon Reflex Left Achilles Deep Tendon Reflex 3+ Normal But Brisk Left Patellar Deep Tendon Reflex 3+ Normal But Brisk Ankle Clonus Left Clonus Assessment Sustained Muscle Tone Tone Assessment Left Lower Extremity Flexor Tone Description Moderate Hypotonicity PT-OP-M Strength Start: 09/17/19 18:00 Freq: Status: Active Protocol: Document 12/10/19 11:15 DCW (Rec: 12/10/19 11:55 DCW [id number]) Hip Strength Hip Manual Muscle Testing Left Flexion (L2) 3 Fair Extension (S1) 3- Fair- Abduction 2+ Poor+ Adduction 3+ Fair+ External Rotation 3 Fair Internal Rotation 3- Fair- Reason Not Measured Muscle Tone Knee Strength Knee Manual Muscle Testing Right Flexion (S2) 5 Normal Extension (L3) 5 Normal Left Flexion (S2) 4- Good- Extension (L3) 4 Good Reason Not Measured Muscle Tone,Pain Ankle/Foot Strength Ankle and Foot Manual Muscle Testing Right Dorsiflexion (L4) 5 Normal Plantarflexion (S1) 5 Normal Left Dorsiflexion (L4) 4- Good- Plantarflexion (S1) 3+ Fair+ Inversion 3- Fair- Eversion (S1) 3- Fair- PT-OP-Q Treatments Start: 09/17/19 18:00 Freq: Status: Active Protocol: Document 01/21/20 12:00 DCW (Rec: 01/21/20 12:50 DCW [id number]) Gym Equipment Shuttle Recovery Unilateral Heel Raises Details Left Resistance 37# Unilateral Squats Details Left Resistance 75# Shuttle Recovery Platform Stable Bilateral Squats Resistance 125# Shuttle Recovery Platform Stable Shuttle Balance Green Details Wide [id number] Comments EO/EC, vs Perturbations Gait Training Gait Activity No AD Description No AD Device Used None Level of Assistance SBA->CGA Distance/Duration 570' Comments VCs to promote heel-toe gait, extend left knee during stance phase Steps Description Ascend/Descend Device Used L ascending rail Level of Assistance CGA Surface 6 Distance/Duration x28 steps Comments Step-through up, step-to down PT-OP-R Modalities Start: 09/17/19 18:00 Freq: Status: Active Protocol: Document 10/10/19 13:45 HH (Rec: 10/10/19 16:17 HH [id number]) Hot Pack/Cold Pack Treatment moist heat Location L hip adductors Patient Position Hooklying Treatment Duration (minutes) 10 Patient Tolerance Good PT-OP-S Aquatic Treatment Start: 09/17/19 18:00 Freq: Status: Active Protocol: Document 01/23/20 12:30 LJ (Rec: 01/23/20 15:37 LJ [id number]) Aquatics Treatment Pool Entry/Exit Pool Entry/Exit Method Lift Assistance Minimal Assistance Water Walking Forward with emphasis on reciprocal gait pattern Water Level Chest Level Level of Assistance Standby Assistance,Contact Guard Assistance,Minimal Assistance,Verbal Cues Comments wetvest, sm float on LUE, #3. 75 ankle wt on LLE Backwards Water Level Chest Level Walking Equipment vest Level of Assistance Contact Guard Assistance, Verbal Cues Comments wetvest, sm float on LUE, #3. 75 ankle wt on LLE start stop walking forward and backward Water Level Chest Level Walking Equipment vest Level of Assistance Contact Guard Assistance, Verbal Cues Comments wetvest, sm float on LUE, #3. 75 ankle wt on LLE Marching Water Level Chest Level Walking Equipment wet vest, UE float, #2.5 ankle wt Level of Assistance Standby Assistance,Contact Guard Assistance,Minimal Assistance,Verbal Cues Comments holding sm noodle in front Sideways Water Level Chest Level Walking Equipment wet vest, UE float, #2.5 ankle wt Level of Assistance Standby Assistance,Contact Guard Assistance,Minimal Assistance,Verbal Cues Lower Extremity Exercises SLS Details bracing LLE Body Position Standing Water Level Chest Level Equipment vest Reps/Duration 1 min jumping Body Position Standing Water Level Chest Level Reps/Duration 10x Comments CGA hip extension Water Level Chest Level Equipment wet vest, #3.75 Reps/Duration 15x bilat HS curls Water Level Chest Level Equipment wet vest, #3.75 Reps/Duration 20 bilat squats Body Position Standing Water Level Chest Level Reps/Duration 20x Lower Extremity Stretches hip flexors Details at wall Body Position Standing Water Level Waist Level Reps/Duration 2x45 Comments manually assisted HS Details at wall Body Position Sitting Water Level Waist Level Equipment wet vest Reps/Duration 2x45 Comments sitting in lift chair assisted Upper Extremity Exercises push/pull Body Position Standing Water Level Chest Level Reps/Duration 20 x Comments Med BBs-assist with left hand community support associate upper trunk rotation Body Position Standing Water Level Chest Level Reps/Duration 20 x Comments Med BBs-assist with left hand community support associate breastroke UE's Body Position Standing Water Level Chest Level Reps/Duration 2 min Comments during walking and deep water hor ab/ad Body Position Standing Water Level Chest Level Equipment med BBs Reps/Duration 20 x Balance step ups Details step ups/down using boxes Body Position Standing Water Level Waist Level Equipment 8 boxes Comments mod verbal cues for coordination [place] Activities [place] Activities Bicycle,Cross Country Equipment wet vest, split belt, UE floats Duration 8 min Comments Guy and cues for vertical alignmernt. PT-OP-T Assessment and Plan Start: 09/17/19 18:00 Freq: Status: Active Protocol: Document 01/23/20 12:30 ADA (Rec: 01/23/20 15:37 [id number]) Physical Therapy Assessment Rehab Potential Rehabilitation Potential Fair Evaluation Complexity Number of Personal Factors/Comorbidities 3 or More Number of Body Systems Impaired 4 or More Clinical Presentation at Evaluation Unstable Impairments Impairments Activity Tolerance,Balance, Coordination,Functional Activities,Functional Mobility ,Gait,Pain,ROM,Sensation, Strength,Tone,Transfers Goals Six Impairment Decreased Static Balance Supervisor Airplane Flight Attendant Goal (LTG) Pt to score 35/56 or better on the [place] Balance LTG Duration 03/10/20 Five Impairment Pt uses R rail and step-over gait pattern ascending stairs Care Home Goal (LTG) Pt to ascend/descend stairs independently without use of rail LTG Duration 03/10/20 Four Impairment Pt demonstrates strength impairment throughout left LE Care Home Goal (LTG) Pt to display MMT >3+/5 through L LE LTG Duration 03/10/20 - Improving Three Impairment Pt SBA for transfers and bed mobility d/t Left Neglect Supervisor Airplane Flight Attendant Goal (LTG) Pt to demonstrate independent transfers and bed mobility with an ability to address left LE and UE 80% of the time LTG Duration Met Two Impairment Pt ambulates 280' CGA /s an AD Short Term Goal (STG) Prior gait goals met STG Duration Met Supervisor Airplane Flight Attendant Goal (LTG) Pt to ambulate 400' SBA independently LTG Duration 03/10/20 One Impairment Pt does not have an appropriate home exercise program Short Term Goal (STG) Pt to be independent and compliant with an appropriate HEP STG Duration Met Assessment Summary Assessment Pt still challenged with walking in a straight line. Tends to veer to the right but will correct with cues. Walking backwards presents a challenge as he tends to stoop and scoot backwards. LUE is getting stronger and pt is able to hold onto a barbell with assist. He was challenged in the deep water with remaining in vertical position and required manual assist to right himself. May need to adjust floatation system and add ankle weights. Pt increased effort in deep water Physical Therapy Plan Frequency and Duration Frequency of Treatment 2x/Week Duration of Treatment 3 months Plan of Care Start Date 12/10/19 Plan of Care End Date 03/10/20 Therapeutic Interventions Therapeutic Interventions Aquatic Therapy,Balance Training,Coordination Training ,Gait Training,Home Exercise Program,Manual Therapy, Neuromuscular Re-education, Patient/Caregiver Education, Self-Care/Home Management, Therapeutic Activities, Therapeutic Exercises Modalities Cold Pack/Ice Massage,Electric Stimulation,Hot Packs, Ultrasound Next Visit Focus/Plan Next Note Type Treatment Note Next Visit Plan Continue to challenge, continue strengthening, balance and gait training with NMR. Move into deep water for cardio training and core stabilization. Revisit step ups/down with boxes and add obstacle course when appropriate. Attempt first step on stairs if appropriate.
--- NOTE | 2020-01-26 12:52 | PT.OTN ---
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) Physical Therapy Treatment Note PT-OP-A Visit Information Start: 09/17/19 18:00 Freq: Status: Active Protocol: Document 01/26/20 12:00 DCW (Rec: 01/26/20 12:52 DCW [id number]) Out-Patient Physical Therapy Visit Information Visit Information Visit Type Treatment Note Visit Start Time 12:00 Visit Stop Time 12:45 Total Visit Minutes 45 Visit Number 35 Number of CENTER CONSULTANT Visits 0 Evaluation Information Evaluation Date 09/17/19 PT-OP-B Current Condition Start: 09/17/19 18:00 Freq: Status: Active Protocol: Document 09/17/19 12:00 DCW (Rec: 09/18/19 10:29 DCW [id number]) Current Condition History of Current Condition Onset Date 04/14/19 Current Complaints Hemiparesis secondary to CVA History of Current Condition Pt is a 69 year old male presenting to skilled outpatient physical therapy with left-side neglect, hemiparesis, loss of independence, and difficulty walking following an intraparenchymal hemorrhage on 04/14/19. Pt was transferred from [facility] to [facility], where a craniotomy was performed on 04/16/19. Pt completed 7 weeks of rehab/ recovery at [facility], and then underwent a second surgery on 06/26/19 to replace the skull fragment. Pt was then at an acute rehab facility 06/30-07/18/19, and since then has been receiving home health physical therapy. Pt presents today with limited left-sided function, left visual and physical neglect, difficulty with transfers, decreased activity tolerance, decreased gait, and many other secondary effects following his CVA. Pt has been working on ambulation with a trent walker with home health, and his states he has walked around 100' a few times, but always with a therapist, as she does not feel comfortable walking with him yet. Pt exclusively gets around at time of evaluation in a manual wheelchair. Pt's transfers have been going fairly well, with his caregivers performing CGA, however pt will occasionally need assistance with placement of his left UE and LE due to neglect. Pt's biggest complaint at the moment is leg pain, his reports they have tried PT, Massage, CBD il, Tylenol, Oxycodine, and Gabapentin, all with minimal benefit. Prior to CVA, pt was fully independent in all activities. Pt and have garegivers 8 hrs a day for assistance. Prior Treatments and Tests Craniotomy 04/16/19, Acute rehab, Skull fragment replacement 06/26/19, home health PT Prior Functional Status Baseline Function- ADL's Independent Baseline Function- Mobility Independent PT-OP-C Subjective Start: 09/17/19 18:00 Freq: Status: Active Protocol: Document 01/26/20 12:00 DCW (Rec: 01/26/20 12:52 DCW [id number]) OP-PT Subjective Patient Comments Patient Comments Pt experienced blurry vision and dizziness on Sunday, went to the ED, but all testing wasnegative, with the ED physician stating he should return to his normal activities. PT-OP-G Mobility & Gait Start: 09/17/19 18:00 Freq: Status: Active Protocol: Document 12/10/19 11:15 DCW (Rec: 12/10/19 11:55 DCW [id number]) OP Mobility Evaluation Bed Mobility Rolling Independent Supine to and from Sit Independent Transfers Sit to Stand SBA Bed to Chair Transfers SBA OP Gait Assessment Gait Gait Assistance Required: Contact Guard Assist Distance (Feet) 280 Able to Maintain Weight Bearing Status Yes During Gait Assistive Devices Assistive Device None,Trent Walker Orthotic/Prosthetic Devices or Brace: No Gait Deviations General Gait Pattern Antalgic,Ataxic,Decreased Stride Length,Decreased Feet Clearance,Flexed Trunk,Lateral Trunk Lean Factors Limiting Gait Function Factors Limiting Gait Function Abnormal Tonal Influences, Decreased Activity Tolerance, Decreased Sensation,Decreased Strength,Incoordination,Poor Balance,Poor Safety Awareness Stair Climbing Evaluation Evaluation Level of Assist On Stairs Contact Guard Assistance Devices Stair Climbing Assistive Devices Right Railing Technique/Endurance Stair Climbing Direction Ascend and Descend Stair Climbing Technique Step Over Step Number of Steps Climbed 4 Stair Climbing Set # Repetitions (reps) 6 Comments Stair Climbing Comments Constant verbal cues to limit left scissoring and continuing [id number] gait pattern PT-OP-H Neuro Start: 09/17/19 18:00 Freq: Status: Active Protocol: Document 12/10/19 11:15 DCW (Rec: 12/10/19 11:55 DCW [id number]) Sensation Evaluation Gross Sensation Gross Sensation Left UE Impaired,Left LE Impaired Sensation Description Paresthesia,Numbness,Pain Location Details Left Leg Light Touch Absent Sharp/Dull Absent Deep Pressure Intact/Normal Proprioception (Position) Impaired Kinesthesia (Movement) Impaired Deep Tendon Reflex & Clonus Assessment Deep Tendon Reflex Left Achilles Deep Tendon Reflex 3+ Normal But Brisk Left Patellar Deep Tendon Reflex 3+ Normal But Brisk Ankle Clonus Left Clonus Assessment Sustained Muscle Tone Tone Assessment Left Lower Extremity Flexor Tone Description Moderate Hypotonicity PT-OP-M Strength Start: 09/17/19 18:00 Freq: Status: Active Protocol: Document 12/10/19 11:15 DCW (Rec: 12/10/19 11:55 DCW [id number]) Hip Strength Hip Manual Muscle Testing Left Flexion (L2) 3 Fair Extension (S1) 3- Fair- Abduction 2+ Poor+ Adduction 3+ Fair+ External Rotation 3 Fair Internal Rotation 3- Fair- Reason Not Measured Muscle Tone Knee Strength Knee Manual Muscle Testing Right Flexion (S2) 5 Normal Extension (L3) 5 Normal Left Flexion (S2) 4- Good- Extension (L3) 4 Good Reason Not Measured Muscle Tone,Pain Ankle/Foot Strength Ankle and Foot Manual Muscle Testing Right Dorsiflexion (L4) 5 Normal Plantarflexion (S1) 5 Normal Left Dorsiflexion (L4) 4- Good- Plantarflexion (S1) 3+ Fair+ Inversion 3- Fair- Eversion (S1) 3- Fair- PT-OP-Q Treatments Start: 09/17/19 18:00 Freq: Status: Active Protocol: Document 01/26/20 12:00 DCW (Rec: 01/26/20 12:52 DCW [id number]) Gym Equipment Shuttle Recovery Unilateral Heel Raises Details Left Resistance 37# Unilateral Squats Details Left Resistance 75# Shuttle Recovery Platform Stable Bilateral Squats Resistance 125# Shuttle Recovery Platform Stable Gait Training Gait Activity No AD Description No AD Device Used None Level of Assistance SBA->CGA Distance/Duration 680' Comments VCs to promote heel-toe gait, extend left knee during stance phase Neuro Re-Education Treatment Balance Activities Cone dyaner andres rahman Details Cone Dyaner Egg Rahman - color match Comments searching visual field, ambulation, balance, bending Other Activities PENA chart Details PENA chart reading Comments Focus on saccadic movements PT-OP-R Modalities Start: 09/17/19 18:00 Freq: Status: Active Protocol: Document 10/10/19 13:45 HH (Rec: 10/10/19 16:17 HH [id number]) Hot Pack/Cold Pack Treatment moist heat Location L hip adductors Patient Position Hooklying Treatment Duration (minutes) 10 Patient Tolerance Good PT-OP-S Aquatic Treatment Start: 09/17/19 18:00 Freq: Status: Active Protocol: Document 01/23/20 12:30 LJ (Rec: 01/23/20 15:37 LJ [id number]) Aquatics Treatment Pool Entry/Exit Pool Entry/Exit Method Lift Assistance Minimal Assistance Water Walking Forward with emphasis on reciprocal gait pattern Water Level Chest Level Level of Assistance Standby Assistance,Contact Guard Assistance,Minimal Assistance,Verbal Cues Comments wetvest, sm float on LUE, #3. 75 ankle wt on LLE Backwards Water Level Chest Level Walking Equipment vest Level of Assistance Contact Guard Assistance, Verbal Cues Comments wetvest, sm float on LUE, #3. 75 ankle wt on LLE start stop walking forward and backward Water Level Chest Level Walking Equipment vest Level of Assistance Contact Guard Assistance, Verbal Cues Comments wetvest, sm float on LUE, #3. 75 ankle wt on LLE Marching Water Level Chest Level Walking Equipment wet vest, UE float, #2.5 ankle wt Level of Assistance Standby Assistance,Contact Guard Assistance,Minimal Assistance,Verbal Cues Comments holding sm noodle in front Sideways Water Level Chest Level Walking Equipment wet vest, UE float, #2.5 ankle wt Level of Assistance Standby Assistance,Contact Guard Assistance,Minimal Assistance,Verbal Cues Lower Extremity Exercises SLS Details bracing LLE Body Position Standing Water Level Chest Level Equipment vest Reps/Duration 1 min jumping Body Position Standing Water Level Chest Level Reps/Duration 10x Comments CGA hip extension Water Level Chest Level Equipment wet vest, #3.75 Reps/Duration 15x bilat HS curls Water Level Chest Level Equipment wet vest, #3.75 Reps/Duration 20 bilat squats Body Position Standing Water Level Chest Level Reps/Duration 20x Lower Extremity Stretches hip flexors Details at wall Body Position Standing Water Level Waist Level Reps/Duration 2x45 Comments manually assisted HS Details at wall Body Position Sitting Water Level Waist Level Equipment wet vest Reps/Duration 2x45 Comments sitting in lift chair assisted Upper Extremity Exercises push/pull Body Position Standing Water Level Chest Level Reps/Duration 20 x Comments Med BBs-assist with left hand missile inspector upper trunk rotation Body Position Standing Water Level Chest Level Reps/Duration 20 x Comments Med BBs-assist with left hand missile inspector breastroke UE's Body Position Standing Water Level Chest Level Reps/Duration 2 min Comments during walking and deep water hor ab/ad Body Position Standing Water Level Chest Level Equipment med BBs Reps/Duration 20 x Balance step ups Details step ups/down using boxes Body Position Standing Water Level Waist Level Equipment 8 boxes Comments mod verbal cues for coordination [place] Activities [place] Activities Bicycle,Cross Country Equipment wet vest, split belt, UE floats Duration 8 min Comments Guy and cues for vertical alignmernt. PT-OP-T Assessment and Plan Start: 09/17/19 18:00 Freq: Status: Active Protocol: Document 01/26/20 12:00 DCW (Rec: 01/26/20 12:52 DCW [id number]) Physical Therapy Assessment Impairments Impairments Activity Tolerance,Balance, Coordination,Functional Activities,Functional Mobility ,Gait,Pain,ROM,Sensation, Strength,Tone,Transfers Goals Six Impairment Decreased Static Balance Halfway Goal (LTG) Pt to score 35/56 or better on the Adler Balance LTG Duration 03/10/20 Five Impairment Pt uses R rail and step-over gait pattern ascending stairs Sanitarian Aide Goal (LTG) Pt to ascend/descend stairs independently without use of rail LTG Duration 03/10/20 Four Impairment Pt demonstrates strength impairment throughout left LE Halfway Goal (LTG) Pt to display MMT >3+/5 through L LE LTG Duration 03/10/20 - Improving Three Impairment Pt SBA for transfers and bed mobility d/t Left Neglect Sanitarian Aide Goal (LTG) Pt to demonstrate independent transfers and bed mobility with an ability to address left LE and UE 80% of the time LTG Duration Met Two Impairment Pt ambulates 280' CGA /s an AD Short Term Goal (STG) Prior gait goals met STG Duration Met Sanitarian Aide Goal (LTG) Pt to ambulate 400' SBA independently LTG Duration 03/10/20 One Impairment Pt does not have an appropriate home exercise program Short Term Goal (STG) Pt to be independent and compliant with an appropriate HEP STG Duration Met Assessment Summary Assessment Pt was able to ambulate with an increased darryl today, after a little instability upon first starting, was able to walk with minimal scissoring gait. Pt was able to understand PENA chart reading after moderate prompting/verbal cues. Physical Therapy Plan Frequency and Duration Frequency of Treatment 2x/Week Duration of Treatment 3 months Plan of Care Start Date 12/10/19 Plan of Care End Date 03/10/20 Therapeutic Interventions Therapeutic Interventions Aquatic Therapy,Balance Training,Coordination Training ,Gait Training,Home Exercise Program,Manual Therapy, Neuromuscular Re-education, Patient/Caregiver Education, Self-Care/Home Management, Therapeutic Activities, Therapeutic Exercises Modalities Cold Pack/Ice Massage,Electric Stimulation,Hot Packs, Ultrasound Next Visit Focus/Plan Next Note Type Treatment Note Next Visit Plan Continue to challenge, continue strengthening, balance and gait training with NMR. Move into deep water for cardio training and core stabilization. Revisit step ups/down with boxes and add obstacle course when appropriate. Attempt first step on stairs if appropriate.
--- NOTE | 2020-01-30 14:54 | PT.OTN ---
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) Physical Therapy Treatment Note PT-OP-A Visit Information Start: 09/17/19 18:00 Freq: Status: Active Protocol: Document 01/30/20 12:30 LJ (Rec: 01/30/20 14:54 LJ [email or web address]) Out-Patient Physical Therapy Visit Information Visit Information Visit Type Aquatic Treatment Note Visit Start Time 12:30 Visit Stop Time 13:15 Total Visit Minutes 45 Visit Number 36 Number of BLEACH BOILER PACKER Visits 1 PT-OP-B Current Condition Start: 09/17/19 18:00 Freq: Status: Active Protocol: Document 09/17/19 12:00 DCW (Rec: 09/18/19 10:29 DCW [id number]) Current Condition History of Current Condition Onset Date 04/14/19 Current Complaints Hemiparesis secondary to CVA History of Current Condition Pt is a 69 year old male presenting to skilled outpatient physical therapy with left-side neglect, hemiparesis, loss of independence, and difficulty walking following an intraparenchymal hemorrhage on 04/14/19. Pt was transferred from [facility] to [facility], where a craniotomy was performed on 04/16/19. Pt completed 7 weeks of rehab/ recovery at [facility], and then underwent a second surgery on 06/26/19 to replace the skull fragment. Pt was then at an acute rehab facility 06/30-07/18/19, and since then has been receiving home health physical therapy. Pt presents today with limited left-sided function, left visual and physical neglect, difficulty with transfers, decreased activity tolerance, decreased gait, and many other secondary effects following his CVA. Pt has been working on ambulation with a trent walker with home health, and his states he has walked around 100' a few times, but always with a therapist, as she does not feel comfortable walking with him yet. Pt exclusively gets around at time of evaluation in a manual wheelchair. Pt's transfers have been going fairly well, with his caregivers performing CGA, however pt will occasionally need assistance with placement of his left UE and LE due to neglect. Pt's biggest complaint at the moment is leg pain, his reports they have tried PT, Massage, CBD il, Tylenol, Oxycodine, and Gabapentin, all with minimal benefit. Prior to CVA, pt was fully independent in all activities. Pt and have garegivers 8 hrs a day for assistance. Prior Treatments and Tests Craniotomy 04/16/19, Acute rehab, Skull fragment replacement 06/26/19, home health PT Prior Functional Status Baseline Function- ADL's Independent Baseline Function- Mobility Independent PT-OP-C Subjective Start: 09/17/19 18:00 Freq: Status: Active Protocol: Document 01/30/20 12:30 LJ (Rec: 01/30/20 14:54 LJ [email or web address]) OP-PT Subjective Patient Comments Patient Comments Pt reported he walked the [employer] 1/2 mile with a few seated rest breaks yesterday. PT-OP-G Mobility & Gait Start: 09/17/19 18:00 Freq: Status: Active Protocol: Document 12/10/19 11:15 DCW (Rec: 12/10/19 11:55 DCW [id number]) OP Mobility Evaluation Bed Mobility Rolling Independent Supine to and from Sit Independent Transfers Sit to Stand SBA Bed to Chair Transfers SBA OP Gait Assessment Gait Gait Assistance Required: Contact Guard Assist Distance (Feet) 280 Able to Maintain Weight Bearing Status Yes During Gait Assistive Devices Assistive Device None,Trent Walker Orthotic/Prosthetic Devices or Brace: No Gait Deviations General Gait Pattern Antalgic,Ataxic,Decreased Stride Length,Decreased Feet Clearance,Flexed Trunk,Lateral Trunk Lean Factors Limiting Gait Function Factors Limiting Gait Function Abnormal Tonal Influences, Decreased Activity Tolerance, Decreased Sensation,Decreased Strength,Incoordination,Poor Balance,Poor Safety Awareness Stair Climbing Evaluation Evaluation Level of Assist On Stairs Contact Guard Assistance Devices Stair Climbing Assistive Devices Right Railing Technique/Endurance Stair Climbing Direction Ascend and Descend Stair Climbing Technique Step Over Step Number of Steps Climbed 4 Stair Climbing Set # Repetitions (reps) 6 Comments Stair Climbing Comments Constant verbal cues to limit left scissoring and continuing [id number] gait pattern PT-OP-H Neuro Start: 09/17/19 18:00 Freq: Status: Active Protocol: Document 12/10/19 11:15 DCW (Rec: 12/10/19 11:55 DCW [id number]) Sensation Evaluation Gross Sensation Gross Sensation Left UE Impaired,Left LE Impaired Sensation Description Paresthesia,Numbness,Pain Location Details Left Leg Light Touch Absent Sharp/Dull Absent Deep Pressure Intact/Normal Proprioception (Position) Impaired Kinesthesia (Movement) Impaired Deep Tendon Reflex & Clonus Assessment Deep Tendon Reflex Left Achilles Deep Tendon Reflex 3+ Normal But Brisk Left Patellar Deep Tendon Reflex 3+ Normal But Brisk Ankle Clonus Left Clonus Assessment Sustained Muscle Tone Tone Assessment Left Lower Extremity Flexor Tone Description Moderate Hypotonicity PT-OP-M Strength Start: 09/17/19 18:00 Freq: Status: Active Protocol: Document 12/10/19 11:15 DCW (Rec: 12/10/19 11:55 DCW [id number]) Hip Strength Hip Manual Muscle Testing Left Flexion (L2) 3 Fair Extension (S1) 3- Fair- Abduction 2+ Poor+ Adduction 3+ Fair+ External Rotation 3 Fair Internal Rotation 3- Fair- Reason Not Measured Muscle Tone Knee Strength Knee Manual Muscle Testing Right Flexion (S2) 5 Normal Extension (L3) 5 Normal Left Flexion (S2) 4- Good- Extension (L3) 4 Good Reason Not Measured Muscle Tone,Pain Ankle/Foot Strength Ankle and Foot Manual Muscle Testing Right Dorsiflexion (L4) 5 Normal Plantarflexion (S1) 5 Normal Left Dorsiflexion (L4) 4- Good- Plantarflexion (S1) 3+ Fair+ Inversion 3- Fair- Eversion (S1) 3- Fair- PT-OP-Q Treatments Start: 09/17/19 18:00 Freq: Status: Active Protocol: Document 01/26/20 12:00 DCW (Rec: 01/26/20 12:52 DCW [id number]) Gym Equipment Shuttle Recovery Unilateral Heel Raises Details Left Resistance 37# Unilateral Squats Details Left Resistance 75# Shuttle Recovery Platform Stable Bilateral Squats Resistance 125# Shuttle Recovery Platform Stable Gait Training Gait Activity No AD Description No AD Device Used None Level of Assistance SBA->CGA Distance/Duration 680' Comments VCs to promote heel-toe gait, extend left knee during stance phase Neuro Re-Education Treatment Balance Activities Cone easter egg rahman Details Cone Easter Egg Rahman - color match Comments searching visual field, ambulation, balance, bending Other Activities PENA chart Details PENA chart reading Comments Focus on saccadic movements PT-OP-R Modalities Start: 09/17/19 18:00 Freq: Status: Active Protocol: Document 10/10/19 13:45 HH (Rec: 10/10/19 16:17 HH [email or web address]) Hot Pack/Cold Pack Treatment moist heat Location L hip adductors Patient Position Hooklying Treatment Duration (minutes) 10 Patient Tolerance Good PT-OP-S Aquatic Treatment Start: 09/17/19 18:00 Freq: Status: Active Protocol: Document 01/30/20 12:30 LJ (Rec: 01/30/20 14:54 LJ [email or web address]) Aquatics Treatment Pool Entry/Exit Pool Entry/Exit Method Lift Assistance Minimal Assistance Water Walking Slow motion Water Level Chest Level Walking Equipment wet vest, UE float, #2.5 ankle wt Level of Assistance Standby Assistance,Contact Guard Assistance,Moderate Assistance Comments emphasis on LLE extension stance phase [place] March Water Level Chest Level Walking Equipment wet vest, UE float, #2.5 ankle wt Level of Assistance Standby Assistance,Contact Guard Assistance,Moderate Assistance,Verbal Cues Forward with emphasis on reciprocal gait pattern Water Level Chest Level Level of Assistance Standby Assistance,Contact Guard Assistance,Minimal Assistance,Verbal Cues Comments wetvest, sm float on LUE, #3. 75 ankle wt on LLE start stop walking forward and backward Water Level Chest Level Walking Equipment vest Level of Assistance Contact Guard Assistance, Verbal Cues Comments wetvest, sm float on LUE, #3. 75 ankle wt on LLE Sideways Water Level Chest Level Walking Equipment wet vest, UE float, #2.5 ankle wt Level of Assistance Standby Assistance,Contact Guard Assistance,Minimal Assistance,Verbal Cues Lower Extremity Exercises SL aquats Details HH on wall Body Position Standing Water Level Waist Level Equipment wetvest Reps/Duration 2x10 LLE Comments VC to extend knee knee extensions Details seated in lift chair Equipment Ankle Weight- 5.0# Reps/Duration 20 B Comments seated in lift SLS Details bracing LLE Body Position Standing Water Level Chest Level Equipment vest Reps/Duration 1 min marching at wall Water Level Chest Level Reps/Duration 2 min Comments opposite UE/LE tapping wall squats Body Position Standing Water Level Chest Level Reps/Duration 20x Lower Extremity Stretches adductors Comments seated in chair Gastroc Body Position Sitting Reps/Duration 2 x 45 sec B Comments manual assist hip flexors Details at wall Body Position Standing Water Level Waist Level Reps/Duration 2x45 Comments manually assisted HS Details at wall Body Position Sitting Water Level Waist Level Equipment wet vest Reps/Duration 2x45 Comments sitting in lift chair assisted Upper Extremity Exercises breastroke UE's Body Position Standing Water Level Chest Level Reps/Duration 3 min Comments during walking and deep water hor ab/ad Water Level Chest Level Comments during side walking, CGA Balance step ups Details step ups/down using boxes Body Position Standing Water Level Waist Level Equipment 8 boxes Comments mod verbal cues for coordination [place] Activities [place] Activities Bicycle,Cross Country Equipment wet vest, white noodle Duration 7 min Comments Guy and cues for vertical alignmernt. PT-OP-T Assessment and Plan Start: 09/17/19 18:00 Freq: Status: Active Protocol: Document 01/30/20 12:30 ADA (Rec: 01/30/20 14:54 LJ [email or web address]) Physical Therapy Assessment Rehab Potential Rehabilitation Potential Fair Evaluation Complexity Number of Personal Factors/Comorbidities 3 or More Number of Body Systems Impaired 4 or More Clinical Presentation at Evaluation Unstable Impairments Impairments Activity Tolerance,Balance, Coordination,Functional Activities,Functional Mobility ,Gait,Pain,ROM,Sensation, Strength,Tone,Transfers Goals Six Impairment Decreased Static Balance Computer Networking Instructor Goal (LTG) Pt to score 35/56 or better on the [place] Balance LTG Duration 03/10/20 Five Impairment Pt uses R rail and step-over gait pattern ascending stairs Computer Networking Instructor Goal (LTG) Pt to ascend/descend stairs independently without use of rail LTG Duration 03/10/20 Four Impairment Pt demonstrates strength impairment throughout left LE Alf Goal (LTG) Pt to display MMT >3+/5 through L LE LTG Duration 03/10/20 - Improving Three Impairment Pt SBA for transfers and bed mobility d/t Left Neglect Computer Networking Instructor Goal (LTG) Pt to demonstrate independent transfers and bed mobility with an ability to address left LE and UE 80% of the time LTG Duration Met Two Impairment Pt ambulates 280' CGA /s an AD Short Term Goal (STG) Prior gait goals met STG Duration Met Alf Goal (LTG) Pt to ambulate 400' SBA independently LTG Duration 03/10/20 One Impairment Pt does not have an appropriate home exercise program Short Term Goal (STG) Pt to be independent and compliant with an appropriate HEP STG Duration Met Assessment Summary Assessment Pt encouraged to ambulate slower in shallow water to increase balance challenge. Pt requires a lot of verbal and manual cueing for fully extending bilateral LEs during gait training. He will push up on his tip toes on LLE when straightening knee during stance phase. Unable to get heelstrike. Significant amount of treatment focused on quad strength. When he loses balance he will often catch himself with scissor gait which needs to be corrected. Side walking is difficult because he doesn't fully extend knees. Continued work on shallow water gait training will address this and other deficits. Physical Therapy Plan Frequency and Duration Frequency of Treatment 2x/Week Duration of Treatment 3 months Plan of Care Start Date 12/10/19 Plan of Care End Date 03/10/20 Therapeutic Interventions Therapeutic Interventions Aquatic Therapy,Balance Training,Coordination Training ,Gait Training,Home Exercise Program,Manual Therapy, Neuromuscular Re-education, Patient/Caregiver Education, Self-Care/Home Management, Therapeutic Activities, Therapeutic Exercises Modalities Cold Pack/Ice Massage,Electric Stimulation,Hot Packs, Ultrasound Next Visit Focus/Plan Next Note Type Treatment Note Next Visit Plan Continue to challenge, continue strengthening, balance and gait training with NMR. Continue deep water for cardio training and core stabilization. Focus on bilateral knee extension in shallow water gait training
--- NOTE | 2020-02-02 13:04 | PT.OTN ---
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) Physical Therapy Treatment Note PT-OP-A Visit Information Start: 09/17/19 18:00 Freq: Status: Active Protocol: Document 02/02/20 12:00 DCW (Rec: 02/02/20 13:04 DCW [id number]) Out-Patient Physical Therapy Visit Information Visit Information Visit Type Treatment Note Visit Start Time 12:00 Visit Stop Time 12:45 Total Visit Minutes 45 Visit Number 35 Number of GREIGE MENDER Visits 0 Evaluation Information Evaluation Date 09/17/19 PT-OP-B Current Condition Start: 09/17/19 18:00 Freq: Status: Active Protocol: Document 09/17/19 12:00 DCW (Rec: 09/18/19 10:29 DCW [id number]) Current Condition History of Current Condition Onset Date 04/14/19 Current Complaints Hemiparesis secondary to CVA History of Current Condition Pt is a 69 year old male presenting to skilled outpatient physical therapy with left-side neglect, hemiparesis, loss of independence, and difficulty walking following an intraparenchymal hemorrhage on 04/14/19. Pt was transferred from [facility] to [facility], where a craniotomy was performed on 04/16/19. Pt completed 7 weeks of rehab/ recovery at [facility], and then underwent a second surgery on 06/26/19 to replace the skull fragment. Pt was then at an acute rehab facility 06/30-07/18/19, and since then has been receiving home health physical therapy. Pt presents today with limited left-sided function, left visual and physical neglect, difficulty with transfers, decreased activity tolerance, decreased gait, and many other secondary effects following his CVA. Pt has been working on ambulation with a trent walker with home health, and his states he has walked around 100' a few times, but always with a therapist, as she does not feel comfortable walking with him yet. Pt exclusively gets around at time of evaluation in a manual wheelchair. Pt's transfers have been going fairly well, with his caregivers performing CGA, however pt will occasionally need assistance with placement of his left UE and LE due to neglect. Pt's biggest complaint at the moment is leg pain, his reports they have tried PT, Massage, CBD il, Tylenol, Oxycodine, and Gabapentin, all with minimal benefit. Prior to CVA, pt was fully independent in all activities. Pt and have garegivers 8 hrs a day for assistance. Prior Treatments and Tests Craniotomy 04/16/19, Acute rehab, Skull fragment replacement 06/26/19, home health PT Prior Functional Status Baseline Function- ADL's Independent Baseline Function- Mobility Independent PT-OP-C Subjective Start: 09/17/19 18:00 Freq: Status: Active Protocol: Document 02/02/20 12:00 DCW (Rec: 02/02/20 13:04 DCW [id number]) OP-PT Subjective Patient Comments Patient Comments Pt feeling great after being [place]. PT-OP-G Mobility & Gait Start: 09/17/19 18:00 Freq: Status: Active Protocol: Document 12/10/19 11:15 DCW (Rec: 12/10/19 11:55 DCW [id number]) OP Mobility Evaluation Bed Mobility Rolling Independent Supine to and from Sit Independent Transfers Sit to Stand SBA Bed to Chair Transfers SBA OP Gait Assessment Gait Gait Assistance Required: Contact Guard Assist Distance (Feet) 280 Able to Maintain Weight Bearing Status Yes During Gait Assistive Devices Assistive Device None,Trent Walker Orthotic/Prosthetic Devices or Brace: No Gait Deviations General Gait Pattern Antalgic,Ataxic,Decreased Stride Length,Decreased Feet Clearance,Flexed Trunk,Lateral Trunk Lean Factors Limiting Gait Function Factors Limiting Gait Function Abnormal Tonal Influences, Decreased Activity Tolerance, Decreased Sensation,Decreased Strength,Incoordination,Poor Balance,Poor Safety Awareness Stair Climbing Evaluation Evaluation Level of Assist On Stairs Contact Guard Assistance Devices Stair Climbing Assistive Devices Right Railing Technique/Endurance Stair Climbing Direction Ascend and Descend Stair Climbing Technique Step Over Step Number of Steps Climbed 4 Stair Climbing Set # Repetitions (reps) 6 Comments Stair Climbing Comments Constant verbal cues to limit left scissoring and continuing [id number] gait pattern PT-OP-H Neuro Start: 09/17/19 18:00 Freq: Status: Active Protocol: Document 12/10/19 11:15 DCW (Rec: 12/10/19 11:55 DCW [id number]) Sensation Evaluation Gross Sensation Gross Sensation Left UE Impaired,Left LE Impaired Sensation Description Paresthesia,Numbness,Pain Location Details Left Leg Light Touch Absent Sharp/Dull Absent Deep Pressure Intact/Normal Proprioception (Position) Impaired Kinesthesia (Movement) Impaired Deep Tendon Reflex & Clonus Assessment Deep Tendon Reflex Left Achilles Deep Tendon Reflex 3+ Normal But Brisk Left Patellar Deep Tendon Reflex 3+ Normal But Brisk Ankle Clonus Left Clonus Assessment Sustained Muscle Tone Tone Assessment Left Lower Extremity Flexor Tone Description Moderate Hypotonicity PT-OP-M Strength Start: 09/17/19 18:00 Freq: Status: Active Protocol: Document 12/10/19 11:15 DCW (Rec: 12/10/19 11:55 DCW [id number]) Hip Strength Hip Manual Muscle Testing Left Flexion (L2) 3 Fair Extension (S1) 3- Fair- Abduction 2+ Poor+ Adduction 3+ Fair+ External Rotation 3 Fair Internal Rotation 3- Fair- Reason Not Measured Muscle Tone Knee Strength Knee Manual Muscle Testing Right Flexion (S2) 5 Normal Extension (L3) 5 Normal Left Flexion (S2) 4- Good- Extension (L3) 4 Good Reason Not Measured Muscle Tone,Pain Ankle/Foot Strength Ankle and Foot Manual Muscle Testing Right Dorsiflexion (L4) 5 Normal Plantarflexion (S1) 5 Normal Left Dorsiflexion (L4) 4- Good- Plantarflexion (S1) 3+ Fair+ Inversion 3- Fair- Eversion (S1) 3- Fair- PT-OP-Q Treatments Start: 09/17/19 18:00 Freq: Status: Active Protocol: Document 02/02/20 12:00 DCW (Rec: 02/02/20 13:04 DCW [id number]) Gait Training Gait Activity No AD Description No AD Device Used None Level of Assistance SBA->CGA Distance/Duration 680' Comments VCs to promote heel-toe gait, extend left knee during stance phase Neuro Re-Education Treatment Balance Activities Hurdles Details Hurdles Comments Min Ax1 Cone easter egg rahman Details Cone Easter Egg Rahman - color match Comments searching visual field, ambulation, balance, bending PT-OP-R Modalities Start: 09/17/19 18:00 Freq: Status: Active Protocol: Document 10/10/19 13:45 HH (Rec: 10/10/19 16:17 HH [email or web address]) Hot Pack/Cold Pack Treatment moist heat Location L hip adductors Patient Position Hooklying Treatment Duration (minutes) 10 Patient Tolerance Good PT-OP-S Aquatic Treatment Start: 09/17/19 18:00 Freq: Status: Active Protocol: Document 01/30/20 12:30 LJ (Rec: 01/30/20 14:54 LJ [id number]) Aquatics Treatment Pool Entry/Exit Pool Entry/Exit Method Lift Assistance Minimal Assistance Water Walking Slow motion Water Level Chest Level Walking Equipment wet vest, UE float, #2.5 ankle wt Level of Assistance Standby Assistance,Contact Guard Assistance,Moderate Assistance Comments emphasis on LLE extension stance phase January Water Level Chest Level Walking Equipment wet vest, UE float, #2.5 ankle wt Level of Assistance Standby Assistance,Contact Guard Assistance,Moderate Assistance,Verbal Cues Forward with emphasis on reciprocal gait pattern Water Level Chest Level Level of Assistance Standby Assistance,Contact Guard Assistance,Minimal Assistance,Verbal Cues Comments wetvest, sm float on LUE, #3. 75 ankle wt on LLE start stop walking forward and backward Water Level Chest Level Walking Equipment vest Level of Assistance Contact Guard Assistance, Verbal Cues Comments wetvest, sm float on LUE, #3. 75 ankle wt on LLE Sideways Water Level Chest Level Walking Equipment wet vest, UE float, #2.5 ankle wt Level of Assistance Standby Assistance,Contact Guard Assistance,Minimal Assistance,Verbal Cues Lower Extremity Exercises SL aquats Details HH on wall Body Position Standing Water Level Waist Level Equipment wetvest Reps/Duration 2x10 LLE Comments VC to extend knee knee extensions Details seated in lift chair Equipment Ankle Weight- 5.0# Reps/Duration 20 B Comments seated in lift SLS Details bracing LLE Body Position Standing Water Level Chest Level Equipment vest Reps/Duration 1 min marching at wall Water Level Chest Level Reps/Duration 2 min Comments opposite UE/LE tapping wall squats Body Position Standing Water Level Chest Level Reps/Duration 20x Lower Extremity Stretches adductors Comments seated in chair Gastroc Body Position Sitting Reps/Duration 2 x 45 sec B Comments manual assist hip flexors Details at wall Body Position Standing Water Level Waist Level Reps/Duration 2x45 Comments manually assisted HS Details at wall Body Position Sitting Water Level Waist Level Equipment wet vest Reps/Duration 2x45 Comments sitting in lift chair assisted Upper Extremity Exercises breastroke UE's Body Position Standing Water Level Chest Level Reps/Duration 3 min Comments during walking and deep water hor ab/ad Water Level Chest Level Comments during side walking, CGA Balance step ups Details step ups/down using boxes Body Position Standing Water Level Waist Level Equipment 8 boxes Comments mod verbal cues for coordination Freeland Activities Freeland Activities Bicycle,Cross Country Equipment wet vest, white noodle Duration 7 min Comments Guy and cues for vertical alignmernt. PT-OP-T Assessment and Plan Start: 09/17/19 18:00 Freq: Status: Active Protocol: Document 02/02/20 12:00 DCW (Rec: 02/02/20 13:04 DCW [id number]) Physical Therapy Assessment Impairments Impairments Activity Tolerance,Balance, Coordination,Functional Activities,Functional Mobility ,Gait,Pain,ROM,Sensation, Strength,Tone,Transfers Goals Six Impairment Decreased Static Balance Fpc Goal (LTG) Pt to score 35/56 or better on the Adler Balance LTG Duration 03/10/20 Five Impairment Pt uses R rail and step-over gait pattern ascending stairs Fpc Goal (LTG) Pt to ascend/descend stairs independently without use of rail LTG Duration 03/10/20 Four Impairment Pt demonstrates strength impairment throughout left LE Fpc Goal (LTG) Pt to display MMT >3+/5 through L LE LTG Duration 03/10/20 - Improving Three Impairment Pt SBA for transfers and bed mobility d/t Left Neglect Integration Analyst Goal (LTG) Pt to demonstrate independent transfers and bed mobility with an ability to address left LE and UE 80% of the time LTG Duration Met Two Impairment Pt ambulates 280' CGA /s an AD Short Term Goal (STG) Prior gait goals met STG Duration Met Fpc Goal (LTG) Pt to ambulate 400' SBA independently LTG Duration 03/10/20 One Impairment Pt does not have an appropriate home exercise program Short Term Goal (STG) Pt to be independent and compliant with an appropriate HEP STG Duration Met Assessment Summary Assessment Pt struggled using hurdles without any upper extremity support. Pt doing well with his cone search, and is improving his visual scanning techniques. Physical Therapy Plan Frequency and Duration Frequency of Treatment 2x/Week Duration of Treatment 3 months Plan of Care Start Date 12/10/19 Plan of Care End Date 03/10/20 Therapeutic Interventions Therapeutic Interventions Aquatic Therapy,Balance Training,Coordination Training ,Gait Training,Home Exercise Program,Manual Therapy, Neuromuscular Re-education, Patient/Caregiver Education, Self-Care/Home Management, Therapeutic Activities, Therapeutic Exercises Modalities Cold Pack/Ice Massage,Electric Stimulation,Hot Packs, Ultrasound Next Visit Focus/Plan Next Note Type Treatment Note Next Visit Plan Continue to challenge, continue strengthening, balance and gait training with NMR. Continue deep water for cardio training and core stabilization. Focus on bilateral knee extension in shallow water gait training
--- NOTE | 2020-05-04 17:08 | PT.OTN ---
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) Physical Therapy Treatment Note PT-OP-A Visit Information Start: 09/17/19 18:00 Freq: Status: Active Protocol: Document 05/04/20 15:15 DCW (Rec: 05/04/20 17:08 DCW [id number]) Out-Patient Physical Therapy Visit Information Visit Information Visit Type Progress Note Visit Start Time 15:15 Visit Stop Time 16:00 Total Visit Minutes 45 Visit Number 38 Number of CANVAS CUTTER HAND Visits 0 Evaluation Information Evaluation Date 09/17/19 PT-OP-B Current Condition Start: 09/17/19 18:00 Freq: Status: Active Protocol: Document 09/17/19 12:00 DCW (Rec: 09/18/19 10:29 DCW [id number]) Current Condition History of Current Condition Onset Date 04/14/19 Current Complaints Hemiparesis secondary to CVA History of Current Condition Pt is a 69 year old male presenting to skilled outpatient physical therapy with left-side neglect, hemiparesis, loss of independence, and difficulty walking following an intraparenchymal hemorrhage on 04/14/19. Pt was transferred from [facility] to [facility], where a craniotomy was performed on 04/16/19. Pt completed 7 weeks of rehab/ recovery at [facility], and then underwent a second surgery on 06/26/19 to replace the skull fragment. Pt was then at an acute rehab facility 06/30-07/18/19, and since then has been receiving home health physical therapy. Pt presents today with limited left-sided function, left visual and physical neglect, difficulty with transfers, decreased activity tolerance, decreased gait, and many other secondary effects following his CVA. Pt has been working on ambulation with a vale walker with home health, and his states he has walked around 100' a few times, but always with a therapist, as she does not feel comfortable walking with him yet. Pt exclusively gets around at time of evaluation in a manual wheelchair. Pt's transfers have been going fairly well, with his caregivers performing CGA, however pt will occasionally need assistance with placement of his left UE and LE due to neglect. Pt's biggest complaint at the moment is leg pain, his reports they have tried PT, Massage, CBD il, Tylenol, Oxycodine, and Gabapentin, all with minimal benefit. Prior to CVA, pt was fully independent in all activities. Pt and have garegivers 8 hrs a day for assistance. Prior Treatments and Tests Craniotomy 04/16/19, Acute rehab, Skull fragment replacement 06/26/19, home health PT Prior Functional Status Baseline Function- ADL's Independent Baseline Function- Mobility Independent PT-OP-C Subjective Start: 09/17/19 18:00 Freq: Status: Active Protocol: Document 05/04/20 15:15 DCW (Rec: 05/04/20 17:08 DCW [id number]) OP-PT Subjective Patient Comments Patient Comments Pt and report he has been doing a lot of walking around their property, typically between 1/4-1/2 mile. Pt has also been using the bathroom independently, getting his w/c into the room and performing his transfers by himself. PT-OP-E Functional Tests Start: 05/04/20 15:15 Freq: Status: Active Protocol: Document 05/04/20 15:15 DCW (Rec: 05/04/20 15:55 DCW [id number]) Functional Tests 6 Minute Walk Test Distance 870' Device Used none Comments 2.42 ft/sec Timed Up and Go (TUG) Score 10.82 seconds Comments 3-trial average (11.15, 11.05, 10.26) TUG Impairment Rating 1 to <20% Impaired (Score 11) PT-OP-G Mobility & Gait Start: 09/17/19 18:00 Freq: Status: Active Protocol: Document 05/04/20 15:15 DCW (Rec: 05/04/20 15:55 DCW [id number]) OP Mobility Evaluation Bed Mobility Rolling Independent Supine to and from Sit Independent Transfers Sit to Stand SBA Bed to Chair Transfers SBA OP Gait Assessment Gait Gait Assistance Required: Contact Guard Assist Distance (Feet) 870 Assistive Devices Assistive Device None Gait Deviations General Gait Pattern Antalgic,Ataxic,Decreased Stride Length,Decreased Feet Clearance,Flexed Trunk,Lateral Trunk Lean Factors Limiting Gait Function Factors Limiting Gait Function Abnormal Tonal Influences, Decreased Activity Tolerance, Decreased Sensation,Decreased Strength,Incoordination,Poor Balance,Poor Safety Awareness Comments Gait Comments Improved foot clearance, no instances of scissoring gait, better ability to visually scan for path finding and obstacle avoidance. Stair Climbing Evaluation Evaluation Level of Assist On Stairs Contact Guard Assistance Devices Stair Climbing Assistive Devices Right Railing Technique/Endurance Stair Climbing Direction Ascend and Descend Stair Climbing Technique Step Over Step,Step to Step Number of Steps Climbed 4 Stair Climbing Set # Repetitions (reps) 6 Comments Stair Climbing Comments Step-over ascending, step-to descending. Occasional scissoring with left during descent. PT-OP-H Neuro Start: 09/17/19 18:00 Freq: Status: Active Protocol: Document 05/04/20 15:15 DCW (Rec: 05/04/20 15:55 DCW [id number]) Sensation Evaluation Gross Sensation Gross Sensation Left UE Impaired,Left LE Impaired Sensation Description Paresthesia,Numbness,Pain Location Details Left Leg Light Touch Absent Sharp/Dull Absent Deep Pressure Intact/Normal Proprioception (Position) Impaired Kinesthesia (Movement) Impaired Deep Tendon Reflex & Clonus Assessment Deep Tendon Reflex Left Achilles Deep Tendon Reflex 3+ Normal But Brisk Left Patellar Deep Tendon Reflex 3+ Normal But Brisk Ankle Clonus Left Clonus Assessment Sustained Muscle Tone Tone Assessment Left Lower Extremity Flexor Tone Description Moderate Hypotonicity PT-OP-M Strength Start: 09/17/19 18:00 Freq: Status: Active Protocol: Document 05/04/20 15:15 DCW (Rec: 05/04/20 15:55 DCW [id number]) Hip Strength Hip Manual Muscle Testing Left Flexion (L2) 3 Fair Extension (S1) 3- Fair- Abduction 3 Fair Adduction 3+ Fair+ External Rotation 3+ Fair+ Internal Rotation 3+ Fair+ Reason Not Measured Muscle Tone Knee Strength Knee Manual Muscle Testing Left Flexion (S2) 4- Good- Extension (L3) 4 Good Reason Not Measured Muscle Tone,Pain Ankle/Foot Strength Ankle and Foot Manual Muscle Testing Left Dorsiflexion (L4) 4 Good Plantarflexion (S1) 3+ Fair+ Inversion 3+ Fair+ Eversion (S1) 3+ Fair+ PT-OP-Q Treatments Start: 09/17/19 18:00 Freq: Status: Active Protocol: Document 05/04/20 15:15 DCW (Rec: 05/04/20 17:08 DCW [id number]) Manual Therapy Treatment Other Other Manual Treatments 6 MWT, TUG, Strength testing, gait, stairs PT-OP-R Modalities Start: 09/17/19 18:00 Freq: Status: Active Protocol: Document 10/10/19 13:45 HH (Rec: 10/10/19 16:17 HH [id number]) Hot Pack/Cold Pack Treatment moist heat Location L hip adductors Patient Position Hooklying Treatment Duration (minutes) 10 Patient Tolerance Good PT-OP-S Aquatic Treatment Start: 09/17/19 18:00 Freq: Status: Active Protocol: Document 01/30/20 12:30 LJ (Rec: 01/30/20 14:54 LJ [id number]) Aquatics Treatment Pool Entry/Exit Pool Entry/Exit Method Lift Assistance Minimal Assistance Water Walking Slow motion Water Level Chest Level Walking Equipment wet vest, UE float, #2.5 ankle wt Level of Assistance Standby Assistance,Contact Guard Assistance,Moderate Assistance Comments emphasis on LLE extension stance phase January Water Level Chest Level Walking Equipment wet vest, UE float, #2.5 ankle wt Level of Assistance Standby Assistance,Contact Guard Assistance,Moderate Assistance,Verbal Cues Forward with emphasis on reciprocal gait pattern Water Level Chest Level Level of Assistance Standby Assistance,Contact Guard Assistance,Minimal Assistance,Verbal Cues Comments wetvest, sm float on LUE, #3. 75 ankle wt on LLE start stop walking forward and backward Water Level Chest Level Walking Equipment vest Level of Assistance Contact Guard Assistance, Verbal Cues Comments wetvest, sm float on LUE, #3. 75 ankle wt on LLE Sideways Water Level Chest Level Walking Equipment wet vest, UE float, #2.5 ankle wt Level of Assistance Standby Assistance,Contact Guard Assistance,Minimal Assistance,Verbal Cues Lower Extremity Exercises SL aquats Details HH on wall Body Position Standing Water Level Waist Level Equipment wetvest Reps/Duration 2x10 LLE Comments VC to extend knee knee extensions Details seated in lift chair Equipment Ankle Weight- 5.0# Reps/Duration 20 B Comments seated in lift SLS Details bracing LLE Body Position Standing Water Level Chest Level Equipment vest Reps/Duration 1 min marching at wall Water Level Chest Level Reps/Duration 2 min Comments opposite UE/LE tapping wall squats Body Position Standing Water Level Chest Level Reps/Duration 20x Lower Extremity Stretches adductors Comments seated in chair Gastroc Body Position Sitting Reps/Duration 2 x 45 sec B Comments manual assist hip flexors Details at wall Body Position Standing Water Level Waist Level Reps/Duration 2x45 Comments manually assisted HS Details at wall Body Position Sitting Water Level Waist Level Equipment wet vest Reps/Duration 2x45 Comments sitting in lift chair assisted Upper Extremity Exercises breastroke UE's Body Position Standing Water Level Chest Level Reps/Duration 3 min Comments during walking and deep water hor ab/ad Water Level Chest Level Comments during side walking, CGA Balance step ups Details step ups/down using boxes Body Position Standing Water Level Waist Level Equipment 8 boxes Comments mod verbal cues for coordination [place] Activities [place] Activities Bicycle,Cross Country Equipment wet vest, white noodle Duration 7 min Comments Guy and cues for vertical alignmernt. PT-OP-T Assessment and Plan Start: 09/17/19 18:00 Freq: Status: Active Protocol: Document 05/04/20 15:15 DCW (Rec: 05/04/20 17:08 DCW [id number]) Physical Therapy Assessment Goals Six Impairment Decreased Static Balance Short Term Goal (STG) Pt to score <9 seconds on TUG STG Duration 06/03/20 Elastic Assembler Goal (LTG) Pt to score 35/56 or better on the Adler Balance LTG Duration 07/04/20 Five Impairment Pt uses R rail and step-over gait pattern ascending stairs Elastic Assembler Goal (LTG) Pt to ascend/descend stairs independently without use of rail LTG Duration 07/04/20 Four Impairment Pt demonstrates strength impairment throughout left LE Mcfp Goal (LTG) Pt to display MMT >3+/5 through L LE LTG Duration 07/04/20 - Improving Three Impairment Pt SBA for transfers and bed mobility d/t Left Neglect Mcfp Goal (LTG) Pt to demonstrate independent transfers and bed mobility with an ability to address left LE and UE 80% of the time LTG Duration Met Two Impairment Pt ambulates 280' CGA /s an AD Short Term Goal (STG) Pt to ambulate 400' SBA independently STG Duration Met Mcfp Goal (LTG) Pt to ambulate 800' during 6 MWT Independently without SBA LTG Duration 07/04/20 One Impairment Pt does not have an appropriate home exercise program Short Term Goal (STG) Pt to be independent and compliant with an appropriate HEP STG Duration Met Assessment Summary Assessment Pt has continued to improve while therapy was on hold during Covid-19 shutdown. Pt has a much faster gait with minimal scissoring, demonstrating a better ability to scan on his left side and obstacle avoidance. Pt would like to work on feeling more stable and confident in his ability tto stand up and walk himself to the bathroom to decrease reliance on the wheelchair. Physical Therapy Plan Frequency and Duration Frequency of Treatment 2x/Week Duration of Treatment 3 months Plan of Care Start Date 05/04/20 Plan of Care End Date 08/04/20 Therapeutic Interventions Therapeutic Interventions Aquatic Therapy,Balance Training,Coordination Training ,Gait Training,Home Exercise Program,Manual Therapy, Neuromuscular Re-education, Patient/Caregiver Education, Self-Care/Home Management, Therapeutic Activities, Therapeutic Exercises Modalities Cold Pack/Ice Massage,Electric Stimulation,Hot Packs, Ultrasound Next Visit Focus/Plan Next Note Type Treatment Note Next Visit Plan Perform Adler Balance Continue to challenge, continue strengthening, balance and gait training with NMR. Continue deep water for cardio training and core stabilization. Focus on bilateral knee extension in shallow water gait training
--- NOTE | 2020-05-04 17:09 | PT.OPPOC ---
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 Plan Of Care PT-OP-T Assessment and Plan Start: 09/17/19 18:00 Freq: Status: Active Protocol: Document 05/04/20 15:15 DCW (Rec: 05/04/20 17:08 DCW [id number]) Physical Therapy Assessment Goals Six Impairment Decreased Static Balance Short Term Goal (STG) Pt to score <9 seconds on TUG STG Duration 06/03/20 Alf Goal (LTG) Pt to score 35/56 or better on the Adler Balance LTG Duration 07/04/20 Five Impairment Pt uses R rail and step-over gait pattern ascending stairs Alf Goal (LTG) Pt to ascend/descend stairs independently without use of rail LTG Duration 07/04/20 Four Impairment Pt demonstrates strength impairment throughout left LE Sales Representative Aircraft Goal (LTG) Pt to display MMT >3+/5 through L LE LTG Duration 07/04/20 - Improving Three Impairment Pt SBA for transfers and bed mobility d/t Left Neglect Sales Representative Aircraft Goal (LTG) Pt to demonstrate independent transfers and bed mobility with an ability to address left LE and UE 80% of the time LTG Duration Met Two Impairment Pt ambulates 280' CGA /s an AD Short Term Goal (STG) Pt to ambulate 400' SBA independently STG Duration Met Sales Representative Aircraft Goal (LTG) Pt to ambulate 800' during 6 MWT Independently without SBA LTG Duration 8/16/20 One Impairment Pt does not have an appropriate home exercise program Short Term Goal (STG) Pt to be independent and compliant with an appropriate HEP STG Duration Met Assessment Summary Assessment Pt has continued to improve while therapy was on hold during Covid-19 shutdown. Pt has a much faster gait with minimal scissoring, demonstrating a better ability to scan on his left side and obstacle avoidance. Pt would like to work on feeling more stable and confident in his ability tto stand up and walk himself to the bathroom to decrease reliance on the wheelchair. Physical Therapy Plan Frequency and Duration Frequency of Treatment 2x/Week Duration of Treatment 3 months Plan of Care Start Date 05/04/20 Plan of Care End Date 08/04/20 Therapeutic Interventions Therapeutic Interventions Aquatic Therapy,Balance Training,Coordination Training ,Gait Training,Home Exercise Program,Manual Therapy, Neuromuscular Re-education, Patient/Caregiver Education, Self-Care/Home Management, Therapeutic Activities, Therapeutic Exercises Modalities Cold Pack/Ice Massage,Electric Stimulation,Hot Packs, Ultrasound Next Visit Focus/Plan Next Note Type Treatment Note Next Visit Plan Perform Adler Balance Continue to challenge, continue strengthening, balance and gait training with NMR. Continue deep water for cardio training and core stabilization. Focus on bilateral knee extension in shallow water gait training Plan of Care Dates Plan of Care Start Date 05/04/20 Plan of Care End Date 08/04/20 Electronically Signed by: Osbaldo Barrios, PT 05/04/20 [id number] Please Sign and Return: I have reviewed this Plan of Care and certify that the skilled therapy services above are required to meet the patient?s needs. Physician Signature Date Printed Name and Credentials Clinical Instructor Signature Printed Name and Credentials
--- NOTE | 2020-05-12 16:48 | PT.OTN ---
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) Physical Therapy Treatment Note PT-OP-A Visit Information Start: 09/17/19 18:00 Freq: Status: Active Protocol: Document 05/12/20 16:00 DCW (Rec: 05/12/20 16:44 DCW [id number]) Out-Patient Physical Therapy Visit Information Visit Information Visit Type Treatment Note Visit Start Time 16:00 Visit Stop Time 16:45 Total Visit Minutes 45 Visit Number 39 Number of VENEER GLUE JOINTER FEEDBACK Visits 0 Evaluation Information Evaluation Date 09/17/19 PT-OP-B Current Condition Start: 09/17/19 18:00 Freq: Status: Active Protocol: Document 09/17/19 12:00 DCW (Rec: 09/18/19 10:29 DCW [id number]) Current Condition History of Current Condition Onset Date 04/14/19 Current Complaints Hemiparesis secondary to CVA History of Current Condition Pt is a 69 year old male presenting to skilled outpatient physical therapy with left-side neglect, hemiparesis, loss of independence, and difficulty walking following an intraparenchymal hemorrhage on 04/14/19. Pt was transferred from [facility] to [facility], where a craniotomy was performed on 04/16/19. Pt completed 7 weeks of rehab/ recovery at [facility], and then underwent a second surgery on 06/26/19 to replace the skull fragment. Pt was then at an acute rehab facility 06/30-07/18/19, and since then has been receiving home health physical therapy. Pt presents today with limited left-sided function, left visual and physical neglect, difficulty with transfers, decreased activity tolerance, decreased gait, and many other secondary effects following his CVA. Pt has been working on ambulation with a vale walker with home health, and his states he has walked around 100' a few times, but always with a therapist, as she does not feel comfortable walking with him yet. Pt exclusively gets around at time of evaluation in a manual wheelchair. Pt's transfers have been going fairly well, with his caregivers performing CGA, however pt will occasionally need assistance with placement of his left UE and LE due to neglect. Pt's biggest complaint at the moment is leg pain, his reports they have tried PT, Massage, CBD il, Tylenol, Oxycodine, and Gabapentin, all with minimal benefit. Prior to CVA, pt was fully independent in all activities. Pt and have garegivers 8 hrs a day for assistance. Prior Treatments and Tests Craniotomy 04/16/19, Acute rehab, Skull fragment replacement 06/26/19, home health PT Prior Functional Status Baseline Function- ADL's Independent Baseline Function- Mobility Independent PT-OP-C Subjective Start: 09/17/19 18:00 Freq: Status: Active Protocol: Document 05/12/20 16:00 DCW (Rec: 05/12/20 16:44 DCW [id number]) OP-PT Subjective Patient Comments Patient Comments Pt's reports he walked approx 50 feet independently to the bathroom today for the first time. PT-OP-E Functional Tests Start: 05/04/20 15:15 Freq: Status: Active Protocol: Document 05/04/20 15:15 DCW (Rec: 05/04/20 15:55 DCW [id number]) Functional Tests 6 Minute Walk Test Distance 870' Device Used none Comments 2.42 ft/sec Timed Up and Go (TUG) Score 10.82 seconds Comments 3-trial average (11.15, 11.05, 10.26) TUG Impairment Rating 1 to <20% Impaired (Score 11) PT-OP-G Mobility & Gait Start: 09/17/19 18:00 Freq: Status: Active Protocol: Document 05/04/20 15:15 DCW (Rec: 05/04/20 15:55 DCW [id number]) OP Mobility Evaluation Bed Mobility Rolling Independent Supine to and from Sit Independent Transfers Sit to Stand SBA Bed to Chair Transfers SBA OP Gait Assessment Gait Gait Assistance Required: Contact Guard Assist Distance (Feet) 870 Assistive Devices Assistive Device None Gait Deviations General Gait Pattern Antalgic,Ataxic,Decreased Stride Length,Decreased Feet Clearance,Flexed Trunk,Lateral Trunk Lean Factors Limiting Gait Function Factors Limiting Gait Function Abnormal Tonal Influences, Decreased Activity Tolerance, Decreased Sensation,Decreased Strength,Incoordination,Poor Balance,Poor Safety Awareness Comments Gait Comments Improved foot clearance, no instances of scissoring gait, better ability to visually scan for path finding and obstacle avoidance. Stair Climbing Evaluation Evaluation Level of Assist On Stairs Contact Guard Assistance Devices Stair Climbing Assistive Devices Right Railing Technique/Endurance Stair Climbing Direction Ascend and Descend Stair Climbing Technique Step Over Step,Step to Step Number of Steps Climbed 4 Stair Climbing Set # Repetitions (reps) 6 Comments Stair Climbing Comments Step-over ascending, step-to descending. Occasional scissoring with left during descent. PT-OP-H Neuro Start: 09/17/19 18:00 Freq: Status: Active Protocol: Document 05/04/20 15:15 DCW (Rec: 05/04/20 15:55 DCW [id number]) Sensation Evaluation Gross Sensation Gross Sensation Left UE Impaired,Left LE Impaired Sensation Description Paresthesia,Numbness,Pain Location Details Left Leg Light Touch Impaired Sharp/Dull Impaired Deep Pressure Intact/Normal Proprioception (Position) Impaired Kinesthesia (Movement) Impaired Deep Tendon Reflex & Clonus Assessment Deep Tendon Reflex Left Achilles Deep Tendon Reflex 3+ Normal But Brisk Left Patellar Deep Tendon Reflex 3+ Normal But Brisk Ankle Clonus Left Clonus Assessment Sustained Muscle Tone Tone Assessment Left Lower Extremity Flexor Tone Description Moderate Hypotonicity PT-OP-M Strength Start: 09/17/19 18:00 Freq: Status: Active Protocol: Document 05/04/20 15:15 DCW (Rec: 05/04/20 15:55 DCW [id number]) Hip Strength Hip Manual Muscle Testing Left Flexion (L2) 3 Fair Extension (S1) 3- Fair- Abduction 3 Fair Adduction 3+ Fair+ External Rotation 3+ Fair+ Internal Rotation 3+ Fair+ Reason Not Measured Muscle Tone Knee Strength Knee Manual Muscle Testing Left Flexion (S2) 4- Good- Extension (L3) 4 Good Reason Not Measured Muscle Tone,Pain Ankle/Foot Strength Ankle and Foot Manual Muscle Testing Left Dorsiflexion (L4) 4 Good Plantarflexion (S1) 3+ Fair+ Inversion 3+ Fair+ Eversion (S1) 3+ Fair+ PT-OP-Q Treatments Start: 09/17/19 18:00 Freq: Status: Active Protocol: Document 05/12/20 16:00 DCW (Rec: 05/12/20 16:44 DCW [id number]) Gait Training Gait Activity No AD Description No AD Device Used None Level of Assistance SBA->CGA Distance/Duration 570' Comments VCs to promote heel-toe gait, extend left knee during stance phase Steps Description Ascend/Descend Device Used L ascending rail Level of Assistance CGA Surface 6 Distance/Duration x28 steps Comments Step-through up, step-to down Neuro Re-Education Treatment Balance Activities Cone ramon sanderst Details Dereje Drake Rahman - color match Comments searching visual field, ambulation, balance, bending PT-OP-R Modalities Start: 09/17/19 18:00 Freq: Status: Active Protocol: Document 10/10/19 13:45 HH (Rec: 10/10/19 16:17 HH [id number]) Hot Pack/Cold Pack Treatment moist heat Location L hip adductors Patient Position Hooklying Treatment Duration (minutes) 10 Patient Tolerance Good PT-OP-S Aquatic Treatment Start: 09/17/19 18:00 Freq: Status: Active Protocol: Document 01/30/20 12:30 LJ (Rec: 01/30/20 14:54 LJ [id number]) Aquatics Treatment Pool Entry/Exit Pool Entry/Exit Method Lift Assistance Minimal Assistance Water Walking Slow motion Water Level Chest Level Walking Equipment wet vest, UE float, #2.5 ankle wt Level of Assistance Standby Assistance,Contact Guard Assistance,Moderate Assistance Comments emphasis on LLE extension stance phase January Water Level Chest Level Walking Equipment wet vest, UE float, #2.5 ankle wt Level of Assistance Standby Assistance,Contact Guard Assistance,Moderate Assistance,Verbal Cues Forward with emphasis on reciprocal gait pattern Water Level Chest Level Level of Assistance Standby Assistance,Contact Guard Assistance,Minimal Assistance,Verbal Cues Comments wetvest, sm float on LUE, #3. 75 ankle wt on LLE start stop walking forward and backward Water Level Chest Level Walking Equipment vest Level of Assistance Contact Guard Assistance, Verbal Cues Comments wetvest, sm float on LUE, #3. 75 ankle wt on LLE Sideways Water Level Chest Level Walking Equipment wet vest, UE float, #2.5 ankle wt Level of Assistance Standby Assistance,Contact Guard Assistance,Minimal Assistance,Verbal Cues Lower Extremity Exercises SL aquats Details HH on wall Body Position Standing Water Level Waist Level Equipment wetvest Reps/Duration 2x10 LLE Comments VC to extend knee knee extensions Details seated in lift chair Equipment Ankle Weight- 5.0# Reps/Duration 20 B Comments seated in lift SLS Details bracing LLE Body Position Standing Water Level Chest Level Equipment vest Reps/Duration 1 min marching at wall Water Level Chest Level Reps/Duration 2 min Comments opposite UE/LE tapping wall squats Body Position Standing Water Level Chest Level Reps/Duration 20x Lower Extremity Stretches adductors Comments seated in chair Gastroc Body Position Sitting Reps/Duration 2 x 45 sec B Comments manual assist hip flexors Details at wall Body Position Standing Water Level Waist Level Reps/Duration 2x45 Comments manually assisted HS Details at wall Body Position Sitting Water Level Waist Level Equipment wet vest Reps/Duration 2x45 Comments sitting in lift chair assisted Upper Extremity Exercises breastroke UE's Body Position Standing Water Level Chest Level Reps/Duration 3 min Comments during walking and deep water hor ab/ad Water Level Chest Level Comments during side walking, CGA Balance step ups Details step ups/down using boxes Body Position Standing Water Level Waist Level Equipment 8 boxes Comments mod verbal cues for coordination Truxton Activities Truxton Activities Bicycle,Cross Country Equipment wet vest, white noodle Duration 7 min Comments Guy and cues for vertical alignmernt. PT-OP-T Assessment and Plan Start: 09/17/19 18:00 Freq: Status: Active Protocol: Document 05/12/20 16:00 DCW (Rec: 05/12/20 16:44 DCW [id number]) Physical Therapy Assessment Impairments Impairments Activity Tolerance,Balance, Coordination,Functional Activities,Functional Mobility ,Gait,Pain,ROM,Sensation, Strength,Tone,Transfers Goals Six Impairment Decreased Static Balance Short Term Goal (STG) Pt to score <9 seconds on TUG STG Duration 06/03/20 Senior Care Goal (LTG) Pt to score 35/56 or better on the Adler Balance LTG Duration 07/04/20 Five Impairment Pt uses R rail and step-over gait pattern ascending stairs Senior Care Goal (LTG) Pt to ascend/descend stairs independently without use of rail LTG Duration 07/04/20 Four Impairment Pt demonstrates strength impairment throughout left LE Senior Care Goal (LTG) Pt to display MMT >3+/5 through L LE LTG Duration 07/04/20 - Improving Three Impairment Pt SBA for transfers and bed mobility d/t Left Neglect Publications Production Supervisor Goal (LTG) Pt to demonstrate independent transfers and bed mobility with an ability to address left LE and UE 80% of the time LTG Duration Met Two Impairment Pt ambulates 280' CGA /s an AD Short Term Goal (STG) Pt to ambulate 400' SBA independently STG Duration Met Senior Care Goal (LTG) Pt to ambulate 800' during 6 MWT Independently without SBA LTG Duration 07/04/20 One Impairment Pt does not have an appropriate home exercise program Short Term Goal (STG) Pt to be independent and compliant with an appropriate HEP STG Duration Met Assessment Summary Assessment Pt did wel today, focused on a lot of gait and improving activity tolerance. Pt displaying improvement in sharp and deep sensation along L LE. Physical Therapy Plan Frequency and Duration Frequency of Treatment 2x/Week Duration of Treatment 3 months Plan of Care Start Date 05/04/20 Plan of Care End Date 08/04/20 Therapeutic Interventions Therapeutic Interventions Aquatic Therapy,Balance Training,Coordination Training ,Gait Training,Home Exercise Program,Manual Therapy, Neuromuscular Re-education, Patient/Caregiver Education, Self-Care/Home Management, Therapeutic Activities, Therapeutic Exercises Modalities Cold Pack/Ice Massage,Electric Stimulation,Hot Packs, Ultrasound Next Visit Focus/Plan Next Note Type Treatment Note Next Visit Plan Perform Adler Balance Continue to challenge, continue strengthening, balance and gait training with NMR. Continue deep water for cardio training and core stabilization. Focus on bilateral knee extension in shallow water gait training
--- NOTE | 2020-05-18 14:32 | PT.OTN ---
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) Physical Therapy Treatment Note PT-OP-A Visit Information Start: 09/17/19 18:00 Freq: Status: Active Protocol: Document 05/18/20 13:45 DCW (Rec: 05/18/20 14:31 DCW [id number]) Out-Patient Physical Therapy Visit Information Visit Information Visit Type Treatment Note Visit Start Time 13:45 Visit Stop Time 14:30 Total Visit Minutes 45 Visit Number 40 Number of JEWELRY ESTIMATOR Visits 0 Evaluation Information Evaluation Date 09/17/19 PT-OP-B Current Condition Start: 09/17/19 18:00 Freq: Status: Active Protocol: Document 09/17/19 12:00 DCW (Rec: 09/18/19 10:29 DCW [id number]) Current Condition History of Current Condition Onset Date 04/14/19 Current Complaints Hemiparesis secondary to CVA History of Current Condition Pt is a 69 year old male presenting to skilled outpatient physical therapy with left-side neglect, hemiparesis, loss of independence, and difficulty walking following an intraparenchymal hemorrhage on 04/14/19. Pt was transferred from [facility] to [facility], where a craniotomy was performed on 04/16/19. Pt completed 7 weeks of rehab/ recovery at [facility], and then underwent a second surgery on 06/26/19 to replace the skull fragment. Pt was then at an acute rehab facility 06/30-07/18/19, and since then has been receiving home health physical therapy. Pt presents today with limited left-sided function, left visual and physical neglect, difficulty with transfers, decreased activity tolerance, decreased gait, and many other secondary effects following his CVA. Pt has been working on ambulation with a vale walker with home health, and his states he has walked around 100' a few times, but always with a therapist, as she does not feel comfortable walking with him yet. Pt exclusively gets around at time of evaluation in a manual wheelchair. Pt's transfers have been going fairly well, with his caregivers performing CGA, however pt will occasionally need assistance with placement of his left UE and LE due to neglect. Pt's biggest complaint at the moment is leg pain, his reports they have tried PT, Massage, CBD il, Tylenol, Oxycodine, and Gabapentin, all with minimal benefit. Prior to CVA, pt was fully independent in all activities. Pt and have garegivers 8 hrs a day for assistance. Prior Treatments and Tests Craniotomy 04/16/19, Acute rehab, Skull fragment replacement 06/26/19, home health PT Prior Functional Status Baseline Function- ADL's Independent Baseline Function- Mobility Independent PT-OP-C Subjective Start: 09/17/19 18:00 Freq: Status: Active Protocol: Document 05/18/20 13:45 DCW (Rec: 05/18/20 14:31 DCW [id number]) OP-PT Subjective Patient Comments Patient Comments Pt admits his leg is a little stiff today. PT-OP-E Functional Tests Start: 05/04/20 15:15 Freq: Status: Active Protocol: Document 05/04/20 15:15 DCW (Rec: 05/04/20 15:55 DCW [id number]) Functional Tests 6 Minute Walk Test Distance 870' Device Used none Comments 2.42 ft/sec Timed Up and Go (TUG) Score 10.82 seconds Comments 3-trial average (11.15, 11.05, 10.26) TUG Impairment Rating 1 to <20% Impaired (Score 11) PT-OP-G Mobility & Gait Start: 09/17/19 18:00 Freq: Status: Active Protocol: Document 05/04/20 15:15 DCW (Rec: 05/04/20 15:55 DCW [id number]) OP Mobility Evaluation Bed Mobility Rolling Independent Supine to and from Sit Independent Transfers Sit to Stand SBA Bed to Chair Transfers SBA OP Gait Assessment Gait Gait Assistance Required: Contact Guard Assist Distance (Feet) 870 Assistive Devices Assistive Device None Gait Deviations General Gait Pattern Antalgic,Ataxic,Decreased Stride Length,Decreased Feet Clearance,Flexed Trunk,Lateral Trunk Lean Factors Limiting Gait Function Factors Limiting Gait Function Abnormal Tonal Influences, Decreased Activity Tolerance, Decreased Sensation,Decreased Strength,Incoordination,Poor Balance,Poor Safety Awareness Comments Gait Comments Improved foot clearance, no instances of scissoring gait, better ability to visually scan for path finding and obstacle avoidance. Stair Climbing Evaluation Evaluation Level of Assist On Stairs Contact Guard Assistance Devices Stair Climbing Assistive Devices Right Railing Technique/Endurance Stair Climbing Direction Ascend and Descend Stair Climbing Technique Step Over Step,Step to Step Number of Steps Climbed 4 Stair Climbing Set # Repetitions (reps) 6 Comments Stair Climbing Comments Step-over ascending, step-to descending. Occasional scissoring with left during descent. PT-OP-H Neuro Start: 09/17/19 18:00 Freq: Status: Active Protocol: Document 05/04/20 15:15 DCW (Rec: 05/04/20 15:55 DCW [id number]) Sensation Evaluation Gross Sensation Gross Sensation Left UE Impaired,Left LE Impaired Sensation Description Paresthesia,Numbness,Pain Location Details Left Leg Light Touch Impaired Sharp/Dull Impaired Deep Pressure Intact/Normal Proprioception (Position) Impaired Kinesthesia (Movement) Impaired Deep Tendon Reflex & Clonus Assessment Deep Tendon Reflex Left Achilles Deep Tendon Reflex 3+ Normal But Brisk Left Patellar Deep Tendon Reflex 3+ Normal But Brisk Ankle Clonus Left Clonus Assessment Sustained Muscle Tone Tone Assessment Left Lower Extremity Flexor Tone Description Moderate Hypotonicity PT-OP-M Strength Start: 09/17/19 18:00 Freq: Status: Active Protocol: Document 05/04/20 15:15 DCW (Rec: 05/04/20 15:55 DCW [id number]) Hip Strength Hip Manual Muscle Testing Left Flexion (L2) 3 Fair Extension (S1) 3- Fair- Abduction 3 Fair Adduction 3+ Fair+ External Rotation 3+ Fair+ Internal Rotation 3+ Fair+ Reason Not Measured Muscle Tone Knee Strength Knee Manual Muscle Testing Left Flexion (S2) 4- Good- Extension (L3) 4 Good Reason Not Measured Muscle Tone,Pain Ankle/Foot Strength Ankle and Foot Manual Muscle Testing Left Dorsiflexion (L4) 4 Good Plantarflexion (S1) 3+ Fair+ Inversion 3+ Fair+ Eversion (S1) 3+ Fair+ PT-OP-Q Treatments Start: 09/17/19 18:00 Freq: Status: Active Protocol: Document 05/18/20 13:45 DCW (Rec: 05/18/20 14:31 DCW [id number]) Gym Equipment Shuttle Recovery Unilateral Heel Raises Details Left Resistance 25# Reps/Time calf stretch at end Unilateral Squats Details Left Resistance 62# Shuttle Recovery Platform Stable Bilateral Squats Resistance 100# Shuttle Recovery Platform Stable Shuttle Balance Green Details Wide [id number] Comments EO/EC, vs Perturbations Therapeutic Exercises Sitting Exercises Adduction Sitting Exercise Name Adductor ball squeeze Side bilateral Reps/Minutes 5 hold Hamstring Curls Sitting Exercise Name HS curl Side left Resistance Lv 3 Equipment Used T-band Gait Training Gait Activity No AD Description No AD Device Used None Level of Assistance SBA->CGA Distance/Duration 850' Comments VCs to promote heel-toe gait, extend left knee during stance phase Neuro Re-Education Treatment Balance Activities Cone transfers Details Bending down to transfer ball between cones Comments No UE support, L UE grabs and tosses ball PT-OP-R Modalities Start: 09/17/19 18:00 Freq: Status: Active Protocol: Document 10/10/19 13:45 HH (Rec: 10/10/19 16:17 HH [id number]) Hot Pack/Cold Pack Treatment moist heat Location L hip adductors Patient Position Hooklying Treatment Duration (minutes) 10 Patient Tolerance Good PT-OP-S Aquatic Treatment Start: 09/17/19 18:00 Freq: Status: Active Protocol: Document 01/30/20 12:30 LJ (Rec: 01/30/20 14:54 LJ [id number]) Aquatics Treatment Pool Entry/Exit Pool Entry/Exit Method Lift Assistance Minimal Assistance Water Walking Slow motion Water Level Chest Level Walking Equipment wet vest, UE float, #2.5 ankle wt Level of Assistance Standby Assistance,Contact Guard Assistance,Moderate Assistance Comments emphasis on LLE extension stance phase January Water Level Chest Level Walking Equipment wet vest, UE float, #2.5 ankle wt Level of Assistance Standby Assistance,Contact Guard Assistance,Moderate Assistance,Verbal Cues Forward with emphasis on reciprocal gait pattern Water Level Chest Level Level of Assistance Standby Assistance,Contact Guard Assistance,Minimal Assistance,Verbal Cues Comments wetvest, sm float on LUE, #3. 75 ankle wt on LLE start stop walking forward and backward Water Level Chest Level Walking Equipment vest Level of Assistance Contact Guard Assistance, Verbal Cues Comments wetvest, sm float on LUE, #3. 75 ankle wt on LLE Sideways Water Level Chest Level Walking Equipment wet vest, UE float, #2.5 ankle wt Level of Assistance Standby Assistance,Contact Guard Assistance,Minimal Assistance,Verbal Cues Lower Extremity Exercises SL aquats Details HH on wall Body Position Standing Water Level Waist Level Equipment wetvest Reps/Duration 2x10 LLE Comments VC to extend knee knee extensions Details seated in lift chair Equipment Ankle Weight- 5.0# Reps/Duration 20 B Comments seated in lift SLS Details bracing LLE Body Position Standing Water Level Chest Level Equipment vest Reps/Duration 1 min marching at wall Water Level Chest Level Reps/Duration 2 min Comments opposite UE/LE tapping wall squats Body Position Standing Water Level Chest Level Reps/Duration 20x Lower Extremity Stretches adductors Comments seated in chair Gastroc Body Position Sitting Reps/Duration 2 x 45 sec B Comments manual assist hip flexors Details at wall Body Position Standing Water Level Waist Level Reps/Duration 2x45 Comments manually assisted HS Details at wall Body Position Sitting Water Level Waist Level Equipment wet vest Reps/Duration 2x45 Comments sitting in lift chair assisted Upper Extremity Exercises breastroke UE's Body Position Standing Water Level Chest Level Reps/Duration 3 min Comments during walking and deep water hor ab/ad Water Level Chest Level Comments during side walking, CGA Balance step ups Details step ups/down using boxes Body Position Standing Water Level Waist Level Equipment 8 boxes Comments mod verbal cues for coordination Collbran Activities Collbran Activities Bicycle,Cross Country Equipment wet vest, white noodle Duration 7 min Comments Guy and cues for vertical alignmernt. PT-OP-T Assessment and Plan Start: 09/17/19 18:00 Freq: Status: Active Protocol: Document 05/18/20 13:45 DCW (Rec: 05/18/20 14:31 DCW [id number]) Physical Therapy Assessment Impairments Impairments Activity Tolerance,Balance, Coordination,Functional Activities,Functional Mobility ,Gait,Pain,ROM,Sensation, Strength,Tone,Transfers Goals Six Impairment Decreased Static Balance Short Term Goal (STG) Pt to score <9 seconds on TUG STG Duration 06/03/20 Longterm Goal (LTG) Pt to score 35/56 or better on the Adler Balance LTG Duration 07/04/20 Five Impairment Pt uses R rail and step-over gait pattern ascending stairs Regulatory Internship Goal (LTG) Pt to ascend/descend stairs independently without use of rail LTG Duration 07/04/20 Four Impairment Pt demonstrates strength impairment throughout left LE Regulatory Internship Goal (LTG) Pt to display MMT >3+/5 through L LE LTG Duration 07/04/20 - Improving Three Impairment Pt SBA for transfers and bed mobility d/t Left Neglect Longterm Goal (LTG) Pt to demonstrate independent transfers and bed mobility with an ability to address left LE and UE 80% of the time LTG Duration Met Two Impairment Pt ambulates 280' CGA /s an AD Short Term Goal (STG) Pt to ambulate 400' SBA independently STG Duration Met Regulatory Internship Goal (LTG) Pt to ambulate 800' during 6 MWT Independently without SBA LTG Duration 07/04/20 One Impairment Pt does not have an appropriate home exercise program Short Term Goal (STG) Pt to be independent and compliant with an appropriate HEP STG Duration Met Assessment Summary Assessment Pt able to perform more activity today with minimal rest breaks, did more standing and bending today, with fatigued his quads. Physical Therapy Plan Frequency and Duration Frequency of Treatment 2x/Week Duration of Treatment 3 months Plan of Care Start Date 05/04/20 Plan of Care End Date 08/04/20 Therapeutic Interventions Therapeutic Interventions Aquatic Therapy,Balance Training,Coordination Training ,Gait Training,Home Exercise Program,Manual Therapy, Neuromuscular Re-education, Patient/Caregiver Education, Self-Care/Home Management, Therapeutic Activities, Therapeutic Exercises Modalities Cold Pack/Ice Massage,Electric Stimulation,Hot Packs, Ultrasound Next Visit Focus/Plan Next Note Type Treatment Note Next Visit Plan Continue to challenge, continue strengthening, balance and gait training with NMR. Continue deep water for cardio training and core stabilization. Focus on bilateral knee extension in shallow water gait training
--- NOTE | 2020-05-24 17:38 | PT.OTN ---
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) Physical Therapy Treatment Note PT-OP-A Visit Information Start: 09/17/19 18:00 Freq: Status: Active Protocol: Document 05/24/20 16:45 DCW (Rec: 05/24/20 17:38 DCW [id number]) Out-Patient Physical Therapy Visit Information Visit Information Visit Type Treatment Note Visit Start Time 16:45 Visit Stop Time 17:30 Total Visit Minutes 45 Visit Number 41 Number of VICE PRESIDENT FOR INSTRUCTION Visits 0 Evaluation Information Evaluation Date 09/17/19 PT-OP-B Current Condition Start: 09/17/19 18:00 Freq: Status: Active Protocol: Document 09/17/19 12:00 DCW (Rec: 09/18/19 10:29 DCW [id number]) Current Condition History of Current Condition Onset Date 04/14/19 Current Complaints Hemiparesis secondary to CVA History of Current Condition Pt is a 69 year old male presenting to skilled outpatient physical therapy with left-side neglect, hemiparesis, loss of independence, and difficulty walking following an intraparenchymal hemorrhage on 04/14/19. Pt was transferred from [facility] to [facility], where a craniotomy was performed on 04/16/19. Pt completed 7 weeks of rehab/ recovery at [facility], and then underwent a second surgery on 06/26/19 to replace the skull fragment. Pt was then at an acute rehab facility 06/30-07/18/19, and since then has been receiving home health physical therapy. Pt presents today with limited left-sided function, left visual and physical neglect, difficulty with transfers, decreased activity tolerance, decreased gait, and many other secondary effects following his CVA. Pt has been working on ambulation with a vale walker with home health, and his states he has walked around 100' a few times, but always with a therapist, as she does not feel comfortable walking with him yet. Pt exclusively gets around at time of evaluation in a manual wheelchair. Pt's transfers have been going fairly well, with his caregivers performing CGA, however pt will occasionally need assistance with placement of his left UE and LE due to neglect. Pt's biggest complaint at the moment is leg pain, his reports they have tried PT, Massage, CBD il, Tylenol, Oxycodine, and Gabapentin, all with minimal benefit. Prior to CVA, pt was fully independent in all activities. Pt and have garegivers 8 hrs a day for assistance. Prior Treatments and Tests Craniotomy 04/16/19, Acute rehab, Skull fragment replacement 06/26/19, home health PT Prior Functional Status Baseline Function- ADL's Independent Baseline Function- Mobility Independent PT-OP-C Subjective Start: 09/17/19 18:00 Freq: Status: Active Protocol: Document 05/24/20 16:45 DCW (Rec: 05/24/20 17:38 DCW [id number]) OP-PT Subjective Patient Comments Patient Comments Pt notes an increase in leg and arm nerve pain recently. PT-OP-E Functional Tests Start: 05/04/20 15:15 Freq: Status: Active Protocol: Document 05/04/20 15:15 DCW (Rec: 05/04/20 15:55 DCW [id number]) Functional Tests 6 Minute Walk Test Distance 870' Device Used none Comments 2.42 ft/sec Timed Up and Go (TUG) Score 10.82 seconds Comments 3-trial average (11.15, 11.05, 10.26) TUG Impairment Rating 1 to <20% Impaired (Score 11) PT-OP-G Mobility & Gait Start: 09/17/19 18:00 Freq: Status: Active Protocol: Document 05/04/20 15:15 DCW (Rec: 05/04/20 15:55 DCW [id number]) OP Mobility Evaluation Bed Mobility Rolling Independent Supine to and from Sit Independent Transfers Sit to Stand SBA Bed to Chair Transfers SBA OP Gait Assessment Gait Gait Assistance Required: Contact Guard Assist Distance (Feet) 870 Assistive Devices Assistive Device None Gait Deviations General Gait Pattern Antalgic,Ataxic,Decreased Stride Length,Decreased Feet Clearance,Flexed Trunk,Lateral Trunk Lean Factors Limiting Gait Function Factors Limiting Gait Function Abnormal Tonal Influences, Decreased Activity Tolerance, Decreased Sensation,Decreased Strength,Incoordination,Poor Balance,Poor Safety Awareness Comments Gait Comments Improved foot clearance, no instances of scissoring gait, better ability to visually scan for path finding and obstacle avoidance. Stair Climbing Evaluation Evaluation Level of Assist On Stairs Contact Guard Assistance Devices Stair Climbing Assistive Devices Right Railing Technique/Endurance Stair Climbing Direction Ascend and Descend Stair Climbing Technique Step Over Step,Step to Step Number of Steps Climbed 4 Stair Climbing Set # Repetitions (reps) 6 Comments Stair Climbing Comments Step-over ascending, step-to descending. Occasional scissoring with left during descent. PT-OP-H Neuro Start: 09/17/19 18:00 Freq: Status: Active Protocol: Document 05/04/20 15:15 DCW (Rec: 05/04/20 15:55 DCW [id number]) Sensation Evaluation Gross Sensation Gross Sensation Left UE Impaired,Left LE Impaired Sensation Description Paresthesia,Numbness,Pain Location Details Left Leg Light Touch Impaired Sharp/Dull Impaired Deep Pressure Intact/Normal Proprioception (Position) Impaired Kinesthesia (Movement) Impaired Deep Tendon Reflex & Clonus Assessment Deep Tendon Reflex Left Achilles Deep Tendon Reflex 3+ Normal But Brisk Left Patellar Deep Tendon Reflex 3+ Normal But Brisk Ankle Clonus Left Clonus Assessment Sustained Muscle Tone Tone Assessment Left Lower Extremity Flexor Tone Description Moderate Hypotonicity PT-OP-M Strength Start: 09/17/19 18:00 Freq: Status: Active Protocol: Document 05/04/20 15:15 DCW (Rec: 05/04/20 15:55 DCW [id number]) Hip Strength Hip Manual Muscle Testing Left Flexion (L2) 3 Fair Extension (S1) 3- Fair- Abduction 3 Fair Adduction 3+ Fair+ External Rotation 3+ Fair+ Internal Rotation 3+ Fair+ Reason Not Measured Muscle Tone Knee Strength Knee Manual Muscle Testing Left Flexion (S2) 4- Good- Extension (L3) 4 Good Reason Not Measured Muscle Tone,Pain Ankle/Foot Strength Ankle and Foot Manual Muscle Testing Left Dorsiflexion (L4) 4 Good Plantarflexion (S1) 3+ Fair+ Inversion 3+ Fair+ Eversion (S1) 3+ Fair+ PT-OP-Q Treatments Start: 09/17/19 18:00 Freq: Status: Active Protocol: Document 05/24/20 16:45 DCW (Rec: 05/24/20 17:38 DCW [id number]) Gym Equipment Shuttle Balance Green Details Wide [email or web address] Comments EO/EC, vs Perturbations Therapeutic Exercises Sitting Exercises Dorsiflexion Sitting Exercise Name Dorsiflexion Side left Comments Focus on neutral DF /s inversion Standing Exercises Hip Extension Standing Exercise Name Extension Side bilateral Resistance Lv 2 Equipment Used T-band Other Exercises Hurdles Other Exercise Name Hurdles Comments Fwd Gait Training Gait Activity No AD Description No AD Device Used None Level of Assistance SBA->CGA Distance/Duration 800' Comments VCs to promote heel-toe gait, extend left knee during stance phase PT-OP-R Modalities Start: 09/17/19 18:00 Freq: Status: Active Protocol: Document 10/10/19 13:45 HH (Rec: 10/10/19 16:17 HH [id number]) Hot Pack/Cold Pack Treatment moist heat Location L hip adductors Patient Position Hooklying Treatment Duration (minutes) 10 Patient Tolerance Good PT-OP-S Aquatic Treatment Start: 09/17/19 18:00 Freq: Status: Active Protocol: Document 01/30/20 12:30 LJ (Rec: 01/30/20 14:54 LJ [id number]) Aquatics Treatment Pool Entry/Exit Pool Entry/Exit Method Lift Assistance Minimal Assistance Water Walking Slow motion Water Level Chest Level Walking Equipment wet vest, UE float, #2.5 ankle wt Level of Assistance Standby Assistance,Contact Guard Assistance,Moderate Assistance Comments emphasis on LLE extension stance phase January Water Level Chest Level Walking Equipment wet vest, UE float, #2.5 ankle wt Level of Assistance Standby Assistance,Contact Guard Assistance,Moderate Assistance,Verbal Cues Forward with emphasis on reciprocal gait pattern Water Level Chest Level Level of Assistance Standby Assistance,Contact Guard Assistance,Minimal Assistance,Verbal Cues Comments wetvest, sm float on LUE, #3. 75 ankle wt on LLE start stop walking forward and backward Water Level Chest Level Walking Equipment vest Level of Assistance Contact Guard Assistance, Verbal Cues Comments wetvest, sm float on LUE, #3. 75 ankle wt on LLE Sideways Water Level Chest Level Walking Equipment wet vest, UE float, #2.5 ankle wt Level of Assistance Standby Assistance,Contact Guard Assistance,Minimal Assistance,Verbal Cues Lower Extremity Exercises SL aquats Details HH on wall Body Position Standing Water Level Waist Level Equipment wetvest Reps/Duration 2x10 LLE Comments VC to extend knee knee extensions Details seated in lift chair Equipment Ankle Weight- 5.0# Reps/Duration 20 B Comments seated in lift SLS Details bracing LLE Body Position Standing Water Level Chest Level Equipment vest Reps/Duration 1 min marching at wall Water Level Chest Level Reps/Duration 2 min Comments opposite UE/LE tapping wall squats Body Position Standing Water Level Chest Level Reps/Duration 20x Lower Extremity Stretches adductors Comments seated in chair Gastroc Body Position Sitting Reps/Duration 2 x 45 sec B Comments manual assist hip flexors Details at wall Body Position Standing Water Level Waist Level Reps/Duration 2x45 Comments manually assisted HS Details at wall Body Position Sitting Water Level Waist Level Equipment wet vest Reps/Duration 2x45 Comments sitting in lift chair assisted Upper Extremity Exercises breastroke UE's Body Position Standing Water Level Chest Level Reps/Duration 3 min Comments during walking and deep water hor ab/ad Water Level Chest Level Comments during side walking, CGA Balance step ups Details step ups/down using boxes Body Position Standing Water Level Waist Level Equipment 8 boxes Comments mod verbal cues for coordination [place] Activities [place] Activities Bicycle,Cross Country Equipment wet vest, white noodle Duration 7 min Comments Guy and cues for vertical alignmernt. PT-OP-T Assessment and Plan Start: 09/17/19 18:00 Freq: Status: Active Protocol: Document 05/24/20 16:45 DCW (Rec: 05/24/20 17:38 DCW [id number]) Physical Therapy Assessment Impairments Impairments Activity Tolerance,Balance, Coordination,Functional Activities,Functional Mobility ,Gait,Pain,ROM,Sensation, Strength,Tone,Transfers Goals Six Impairment Decreased Static Balance Short Term Goal (STG) Pt to score <9 seconds on TUG STG Duration 06/03/20 Doctor Of Optometry Goal (LTG) Pt to score 35/56 or better on the [place] Balance LTG Duration 07/04/20 Five Impairment Pt uses R rail and step-over gait pattern ascending stairs Doctor Of Optometry Goal (LTG) Pt to ascend/descend stairs independently without use of rail LTG Duration 07/04/20 Four Impairment Pt demonstrates strength impairment throughout left LE Doctor Of Optometry Goal (LTG) Pt to display MMT >3+/5 through L LE LTG Duration 07/04/20 - Improving Three Impairment Pt SBA for transfers and bed mobility d/t Left Neglect Fpc Goal (LTG) Pt to demonstrate independent transfers and bed mobility with an ability to address left LE and UE 80% of the time LTG Duration Met Two Impairment Pt ambulates 280' CGA /s an AD Short Term Goal (STG) Pt to ambulate 400' SBA independently STG Duration Met Doctor Of Optometry Goal (LTG) Pt to ambulate 800' during 6 MWT Independently without SBA LTG Duration 07/04/20 One Impairment Pt does not have an appropriate home exercise program Short Term Goal (STG) Pt to be independent and compliant with an appropriate HEP STG Duration Met Assessment Summary Assessment Pt having increased pain along anterior lower leg, likely due to over activation of ant tib during gait,resulting in inversion during dorsiflexion. Practiced today focusing on keeping ankle in neutral during DF. Physical Therapy Plan Frequency and Duration Frequency of Treatment 2x/Week Duration of Treatment 3 months Plan of Care Start Date 05/04/20 Plan of Care End Date 08/04/20 Therapeutic Interventions Therapeutic Interventions Aquatic Therapy,Balance Training,Coordination Training ,Gait Training,Home Exercise Program,Manual Therapy, Neuromuscular Re-education, Patient/Caregiver Education, Self-Care/Home Management, Therapeutic Activities, Therapeutic Exercises Modalities Cold Pack/Ice Massage,Electric Stimulation,Hot Packs, Ultrasound Next Visit Focus/Plan Next Note Type Treatment Note Next Visit Plan Continue to challenge, continue strengthening, balance and gait training with NMR. Continue deep water for cardio training and core stabilization. Focus on bilateral knee extension in shallow water gait training
--- NOTE | 2020-05-26 16:47 | PT.OTN ---
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) Physical Therapy Treatment Note PT-OP-A Visit Information Start: 09/17/19 18:00 Freq: Status: Active Protocol: Document 05/26/20 16:00 DCW (Rec: 05/26/20 16:47 DCW [id number]) Out-Patient Physical Therapy Visit Information Visit Information Visit Type Treatment Note Visit Start Time 16:00 Visit Stop Time 16:45 Total Visit Minutes 45 Visit Number 42 Number of SCIENTIFIC RESEARCH ASSOCIATE Visits 0 Evaluation Information Evaluation Date 09/17/19 PT-OP-B Current Condition Start: 09/17/19 18:00 Freq: Status: Active Protocol: Document 09/17/19 12:00 DCW (Rec: 09/18/19 10:29 DCW [id number]) Current Condition History of Current Condition Onset Date 04/14/19 Current Complaints Hemiparesis secondary to CVA History of Current Condition Pt is a 69 year old male presenting to skilled outpatient physical therapy with left-side neglect, hemiparesis, loss of independence, and difficulty walking following an intraparenchymal hemorrhage on 04/14/19. Pt was transferred from [facility] to [facility], where a craniotomy was performed on 04/16/19. Pt completed 7 weeks of rehab/ recovery at [facility], and then underwent a second surgery on 06/26/19 to replace the skull fragment. Pt was then at an acute rehab facility 06/30-07/18/19, and since then has been receiving home health physical therapy. Pt presents today with limited left-sided function, left visual and physical neglect, difficulty with transfers, decreased activity tolerance, decreased gait, and many other secondary effects following his CVA. Pt has been working on ambulation with a vale walker with home health, and his states he has walked around 100' a few times, but always with a therapist, as she does not feel comfortable walking with him yet. Pt exclusively gets around at time of evaluation in a manual wheelchair. Pt's transfers have been going fairly well, with his caregivers performing CGA, however pt will occasionally need assistance with placement of his left UE and LE due to neglect. Pt's biggest complaint at the moment is leg pain, his reports they have tried PT, Massage, CBD il, Tylenol, Oxycodine, and Gabapentin, all with minimal benefit. Prior to CVA, pt was fully independent in all activities. Pt and have garegivers 8 hrs a day for assistance. Prior Treatments and Tests Craniotomy 04/16/19, Acute rehab, Skull fragment replacement 06/26/19, home health PT Prior Functional Status Baseline Function- ADL's Independent Baseline Function- Mobility Independent PT-OP-C Subjective Start: 09/17/19 18:00 Freq: Status: Active Protocol: Document 05/26/20 16:00 DCW (Rec: 05/26/20 16:47 DCW [id number]) OP-PT Subjective Patient Comments Patient Comments Pt's reports they've noticed a spot on his left sidhu, they think because they have been over-icing it. PT-OP-E Functional Tests Start: 05/04/20 15:15 Freq: Status: Active Protocol: Document 05/04/20 15:15 DCW (Rec: 05/04/20 15:55 DCW [id number]) Functional Tests 6 Minute Walk Test Distance 870' Device Used none Comments 2.42 ft/sec Timed Up and Go (TUG) Score 10.82 seconds Comments 3-trial average (11.15, 11.05, 10.26) TUG Impairment Rating 1 to <20% Impaired (Score 11) PT-OP-G Mobility & Gait Start: 09/17/19 18:00 Freq: Status: Active Protocol: Document 05/04/20 15:15 DCW (Rec: 05/04/20 15:55 DCW [id number]) OP Mobility Evaluation Bed Mobility Rolling Independent Supine to and from Sit Independent Transfers Sit to Stand SBA Bed to Chair Transfers SBA OP Gait Assessment Gait Gait Assistance Required: Contact Guard Assist Distance (Feet) 870 Assistive Devices Assistive Device None Gait Deviations General Gait Pattern Antalgic,Ataxic,Decreased Stride Length,Decreased Feet Clearance,Flexed Trunk,Lateral Trunk Lean Factors Limiting Gait Function Factors Limiting Gait Function Abnormal Tonal Influences, Decreased Activity Tolerance, Decreased Sensation,Decreased Strength,Incoordination,Poor Balance,Poor Safety Awareness Comments Gait Comments Improved foot clearance, no instances of scissoring gait, better ability to visually scan for path finding and obstacle avoidance. Stair Climbing Evaluation Evaluation Level of Assist On Stairs Contact Guard Assistance Devices Stair Climbing Assistive Devices Right Railing Technique/Endurance Stair Climbing Direction Ascend and Descend Stair Climbing Technique Step Over Step,Step to Step Number of Steps Climbed 4 Stair Climbing Set # Repetitions (reps) 6 Comments Stair Climbing Comments Step-over ascending, step-to descending. Occasional scissoring with left during descent. PT-OP-H Neuro Start: 09/17/19 18:00 Freq: Status: Active Protocol: Document 05/04/20 15:15 DCW (Rec: 05/04/20 15:55 DCW [id number]) Sensation Evaluation Gross Sensation Gross Sensation Left UE Impaired,Left LE Impaired Sensation Description Paresthesia,Numbness,Pain Location Details Left Leg Light Touch Impaired Sharp/Dull Impaired Deep Pressure Intact/Normal Proprioception (Position) Impaired Kinesthesia (Movement) Impaired Deep Tendon Reflex & Clonus Assessment Deep Tendon Reflex Left Achilles Deep Tendon Reflex 3+ Normal But Brisk Left Patellar Deep Tendon Reflex 3+ Normal But Brisk Ankle Clonus Left Clonus Assessment Sustained Muscle Tone Tone Assessment Left Lower Extremity Flexor Tone Description Moderate Hypotonicity PT-OP-M Strength Start: 09/17/19 18:00 Freq: Status: Active Protocol: Document 05/04/20 15:15 DCW (Rec: 05/04/20 15:55 DCW [id number]) Hip Strength Hip Manual Muscle Testing Left Flexion (L2) 3 Fair Extension (S1) 3- Fair- Abduction 3 Fair Adduction 3+ Fair+ External Rotation 3+ Fair+ Internal Rotation 3+ Fair+ Reason Not Measured Muscle Tone Knee Strength Knee Manual Muscle Testing Left Flexion (S2) 4- Good- Extension (L3) 4 Good Reason Not Measured Muscle Tone,Pain Ankle/Foot Strength Ankle and Foot Manual Muscle Testing Left Dorsiflexion (L4) 4 Good Plantarflexion (S1) 3+ Fair+ Inversion 3+ Fair+ Eversion (S1) 3+ Fair+ PT-OP-Q Treatments Start: 09/17/19 18:00 Freq: Status: Active Protocol: Document 05/26/20 16:00 DCW (Rec: 05/26/20 16:47 DCW [id number]) Gym Equipment Shuttle Recovery Unilateral Heel Raises Details Left Resistance 25# Reps/Time calf stretch at end Unilateral Squats Details Left Resistance 62# Shuttle Recovery Platform Stable Bilateral Squats Resistance 100# Shuttle Recovery Platform Stable Shuttle Balance Green Details Wide [email or web address] Comments EO/EC, vs Perturbations Therapeutic Exercises Sitting Exercises Dorsiflexion Sitting Exercise Name Dorsiflexion Side left Comments Focus on neutral DF /s inversion Other Exercises Hurdles Other Exercise Name Hurdles Comments Fwd Gait Training Gait Activity No AD Description No AD Device Used None Level of Assistance SBA->CGA Distance/Duration 800' Comments VCs to promote heel-toe gait, extend left knee during stance phase Neuro Re-Education Treatment Balance Activities Standing Balance Details Bend, pick-up, and toss acevedo bags in standing PT-OP-R Modalities Start: 09/17/19 18:00 Freq: Status: Active Protocol: Document 10/10/19 13:45 HH (Rec: 10/10/19 16:17 HH [id number]) Hot Pack/Cold Pack Treatment moist heat Location L hip adductors Patient Position Hooklying Treatment Duration (minutes) 10 Patient Tolerance Good PT-OP-S Aquatic Treatment Start: 09/17/19 18:00 Freq: Status: Active Protocol: Document 01/30/20 12:30 LJ (Rec: 01/30/20 14:54 LJ [id number]) Aquatics Treatment Pool Entry/Exit Pool Entry/Exit Method Lift Assistance Minimal Assistance Water Walking Slow motion Water Level Chest Level Walking Equipment wet vest, UE float, #2.5 ankle wt Level of Assistance Standby Assistance,Contact Guard Assistance,Moderate Assistance Comments emphasis on LLE extension stance phase January Water Level Chest Level Walking Equipment wet vest, UE float, #2.5 ankle wt Level of Assistance Standby Assistance,Contact Guard Assistance,Moderate Assistance,Verbal Cues Forward with emphasis on reciprocal gait pattern Water Level Chest Level Level of Assistance Standby Assistance,Contact Guard Assistance,Minimal Assistance,Verbal Cues Comments wetvest, sm float on LUE, #3. 75 ankle wt on LLE start stop walking forward and backward Water Level Chest Level Walking Equipment vest Level of Assistance Contact Guard Assistance, Verbal Cues Comments wetvest, sm float on LUE, #3. 75 ankle wt on LLE Sideways Water Level Chest Level Walking Equipment wet vest, UE float, #2.5 ankle wt Level of Assistance Standby Assistance,Contact Guard Assistance,Minimal Assistance,Verbal Cues Lower Extremity Exercises SL aquats Details HH on wall Body Position Standing Water Level Waist Level Equipment wetvest Reps/Duration 2x10 LLE Comments VC to extend knee knee extensions Details seated in lift chair Equipment Ankle Weight- 5.0# Reps/Duration 20 B Comments seated in lift SLS Details bracing LLE Body Position Standing Water Level Chest Level Equipment vest Reps/Duration 1 min marching at wall Water Level Chest Level Reps/Duration 2 min Comments opposite UE/LE tapping wall squats Body Position Standing Water Level Chest Level Reps/Duration 20x Lower Extremity Stretches adductors Comments seated in chair Gastroc Body Position Sitting Reps/Duration 2 x 45 sec B Comments manual assist hip flexors Details at wall Body Position Standing Water Level Waist Level Reps/Duration 2x45 Comments manually assisted HS Details at wall Body Position Sitting Water Level Waist Level Equipment wet vest Reps/Duration 2x45 Comments sitting in lift chair assisted Upper Extremity Exercises breastroke UE's Body Position Standing Water Level Chest Level Reps/Duration 3 min Comments during walking and deep water hor ab/ad Water Level Chest Level Comments during side walking, CGA Balance step ups Details step ups/down using boxes Body Position Standing Water Level Waist Level Equipment 8 boxes Comments mod verbal cues for coordination [place] Activities [place] Activities Bicycle,Cross Country Equipment wet vest, white noodle Duration 7 min Comments Guy and cues for vertical alignmernt. PT-OP-T Assessment and Plan Start: 09/17/19 18:00 Freq: Status: Active Protocol: Document 05/26/20 16:00 DCW (Rec: 05/26/20 16:47 DCW [id number]) Physical Therapy Assessment Goals Six Impairment Decreased Static Balance Short Term Goal (STG) Pt to score <9 seconds on TUG STG Duration 06/03/20 Half-Way Goal (LTG) Pt to score 35/56 or better on the Adler Balance LTG Duration 07/04/20 Five Impairment Pt uses R rail and step-over gait pattern ascending stairs Food Vendor Goal (LTG) Pt to ascend/descend stairs independently without use of rail LTG Duration 07/04/20 Four Impairment Pt demonstrates strength impairment throughout left LE Food Vendor Goal (LTG) Pt to display MMT >3+/5 through L LE LTG Duration 07/04/20 - Improving Three Impairment Pt SBA for transfers and bed mobility d/t Left Neglect Half-Way Goal (LTG) Pt to demonstrate independent transfers and bed mobility with an ability to address left LE and UE 80% of the time LTG Duration Met Two Impairment Pt ambulates 280' CGA /s an AD Short Term Goal (STG) Pt to ambulate 400' SBA independently STG Duration Met Food Vendor Goal (LTG) Pt to ambulate 800' during 6 MWT Independently without SBA LTG Duration 07/04/20 One Impairment Pt does not have an appropriate home exercise program Short Term Goal (STG) Pt to be independent and compliant with an appropriate HEP STG Duration Met Assessment Summary Assessment Pt very fatigued by the end of today's session, but worked very hard. Pt improving with bending down and picking items up off the floor. Physical Therapy Plan Frequency and Duration Frequency of Treatment 2x/Week Duration of Treatment 3 months Plan of Care Start Date 05/04/20 Plan of Care End Date 08/04/20 Therapeutic Interventions Therapeutic Interventions Aquatic Therapy,Balance Training,Coordination Training ,Gait Training,Home Exercise Program,Manual Therapy, Neuromuscular Re-education, Patient/Caregiver Education, Self-Care/Home Management, Therapeutic Activities, Therapeutic Exercises Modalities Cold Pack/Ice Massage,Electric Stimulation,Hot Packs, Ultrasound Next Visit Focus/Plan Next Note Type Treatment Note Next Visit Plan Continue to challenge, continue strengthening, balance and gait training with NMR. Continue deep water for cardio training and core stabilization. Focus on bilateral knee extension in shallow water gait training
--- NOTE | 2020-05-31 16:04 | PT.OTN ---
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) Physical Therapy Treatment Note PT-OP-A Visit Information Start: 09/17/19 18:00 Freq: Status: Active Protocol: Document 05/31/20 15:20 DCW (Rec: 05/31/20 16:04 DCW [id number]) Out-Patient Physical Therapy Visit Information Visit Information Visit Type Treatment Note Visit Note Late start due to OT overlap Visit Start Time 15:20 Visit Stop Time 16:00 Total Visit Minutes 40 Visit Number 43 Number of TEAM MEMBER Visits 0 Evaluation Information Evaluation Date 09/17/19 PT-OP-B Current Condition Start: 09/17/19 18:00 Freq: Status: Active Protocol: Document 09/17/19 12:00 DCW (Rec: 09/18/19 10:29 DCW [id number]) Current Condition History of Current Condition Onset Date 04/14/19 Current Complaints Hemiparesis secondary to CVA History of Current Condition Pt is a 69 year old male presenting to skilled outpatient physical therapy with left-side neglect, hemiparesis, loss of independence, and difficulty walking following an intraparenchymal hemorrhage on 04/14/19. Pt was transferred from [facility] to [facility], where a craniotomy was performed on 04/16/19. Pt completed 7 weeks of rehab/ recovery at [facility], and then underwent a second surgery on 06/26/19 to replace the skull fragment. Pt was then at an acute rehab facility 06/30-07/18/19, and since then has been receiving home health physical therapy. Pt presents today with limited left-sided function, left visual and physical neglect, difficulty with transfers, decreased activity tolerance, decreased gait, and many other secondary effects following his CVA. Pt has been working on ambulation with a vale walker with home health, and his states he has walked around 100' a few times, but always with a therapist, as she does not feel comfortable walking with him yet. Pt exclusively gets around at time of evaluation in a manual wheelchair. Pt's transfers have been going fairly well, with his caregivers performing CGA, however pt will occasionally need assistance with placement of his left UE and LE due to neglect. Pt's biggest complaint at the moment is leg pain, his reports they have tried PT, Massage, CBD il, Tylenol, Oxycodine, and Gabapentin, all with minimal benefit. Prior to CVA, pt was fully independent in all activities. Pt and have garegivers 8 hrs a day for assistance. Prior Treatments and Tests Craniotomy 04/16/19, Acute rehab, Skull fragment replacement 06/26/19, home health PT Prior Functional Status Baseline Function- ADL's Independent Baseline Function- Mobility Independent PT-OP-C Subjective Start: 09/17/19 18:00 Freq: Status: Active Protocol: Document 05/31/20 15:20 DCW (Rec: 05/31/20 16:04 DCW [id number]) OP-PT Subjective Patient Comments Patient Comments Pt reports he is doing well today, wishes he was able to get out and walk more with the recent nicer weather. PT-OP-E Functional Tests Start: 05/04/20 15:15 Freq: Status: Active Protocol: Document 05/04/20 15:15 DCW (Rec: 05/04/20 15:55 DCW [id number]) Functional Tests 6 Minute Walk Test Distance 870' Device Used none Comments 2.42 ft/sec Timed Up and Go (TUG) Score 10.82 seconds Comments 3-trial average (11.15, 11.05, 10.26) TUG Impairment Rating 1 to <20% Impaired (Score 11) PT-OP-G Mobility & Gait Start: 09/17/19 18:00 Freq: Status: Active Protocol: Document 05/04/20 15:15 DCW (Rec: 05/04/20 15:55 DCW [id number]) OP Mobility Evaluation Bed Mobility Rolling Independent Supine to and from Sit Independent Transfers Sit to Stand SBA Bed to Chair Transfers SBA OP Gait Assessment Gait Gait Assistance Required: Contact Guard Assist Distance (Feet) 870 Assistive Devices Assistive Device None Gait Deviations General Gait Pattern Antalgic,Ataxic,Decreased Stride Length,Decreased Feet Clearance,Flexed Trunk,Lateral Trunk Lean Factors Limiting Gait Function Factors Limiting Gait Function Abnormal Tonal Influences, Decreased Activity Tolerance, Decreased Sensation,Decreased Strength,Incoordination,Poor Balance,Poor Safety Awareness Comments Gait Comments Improved foot clearance, no instances of scissoring gait, better ability to visually scan for path finding and obstacle avoidance. Stair Climbing Evaluation Evaluation Level of Assist On Stairs Contact Guard Assistance Devices Stair Climbing Assistive Devices Right Railing Technique/Endurance Stair Climbing Direction Ascend and Descend Stair Climbing Technique Step Over Step,Step to Step Number of Steps Climbed 4 Stair Climbing Set # Repetitions (reps) 6 Comments Stair Climbing Comments Step-over ascending, step-to descending. Occasional scissoring with left during descent. PT-OP-H Neuro Start: 09/17/19 18:00 Freq: Status: Active Protocol: Document 05/04/20 15:15 DCW (Rec: 05/04/20 15:55 DCW [id number]) Sensation Evaluation Gross Sensation Gross Sensation Left UE Impaired,Left LE Impaired Sensation Description Paresthesia,Numbness,Pain Location Details Left Leg Light Touch Impaired Sharp/Dull Impaired Deep Pressure Intact/Normal Proprioception (Position) Impaired Kinesthesia (Movement) Impaired Deep Tendon Reflex & Clonus Assessment Deep Tendon Reflex Left Achilles Deep Tendon Reflex 3+ Normal But Brisk Left Patellar Deep Tendon Reflex 3+ Normal But Brisk Ankle Clonus Left Clonus Assessment Sustained Muscle Tone Tone Assessment Left Lower Extremity Flexor Tone Description Moderate Hypotonicity PT-OP-M Strength Start: 09/17/19 18:00 Freq: Status: Active Protocol: Document 05/04/20 15:15 DCW (Rec: 05/04/20 15:55 DCW [id number]) Hip Strength Hip Manual Muscle Testing Left Flexion (L2) 3 Fair Extension (S1) 3- Fair- Abduction 3 Fair Adduction 3+ Fair+ External Rotation 3+ Fair+ Internal Rotation 3+ Fair+ Reason Not Measured Muscle Tone Knee Strength Knee Manual Muscle Testing Left Flexion (S2) 4- Good- Extension (L3) 4 Good Reason Not Measured Muscle Tone,Pain Ankle/Foot Strength Ankle and Foot Manual Muscle Testing Left Dorsiflexion (L4) 4 Good Plantarflexion (S1) 3+ Fair+ Inversion 3+ Fair+ Eversion (S1) 3+ Fair+ PT-OP-Q Treatments Start: 09/17/19 18:00 Freq: Status: Active Protocol: Document 05/31/20 15:20 DCW (Rec: 05/31/20 16:04 DCW [id number]) Gym Equipment Shuttle Balance Green Details Wide [email or web address] Comments EO/EC, vs Perturbations, /c head turns Therapeutic Exercises Sitting Exercises Dorsiflexion Sitting Exercise Name Dorsiflexion Side left Comments Focus on neutral DF /s inversion Standing Exercises Marching Standing Exercise Name Marching Side bilateral Resistance 5# Equipment Used @rail Other Exercises Hurdles Other Exercise Name Hurdles Comments Fwd Gait Training Gait Activity No AD Description No AD Device Used None Level of Assistance SBA->CGA Distance/Duration 850' Comments VCs to promote heel-toe gait, extend left knee during stance phase gait cycle Description Fwd/Bkwd weight shifting /c arm swing Comments PVC poles PT-OP-R Modalities Start: 09/17/19 18:00 Freq: Status: Active Protocol: Document 10/10/19 13:45 HH (Rec: 10/10/19 16:17 HH [id number]) Hot Pack/Cold Pack Treatment moist heat Location L hip adductors Patient Position Hooklying Treatment Duration (minutes) 10 Patient Tolerance Good PT-OP-S Aquatic Treatment Start: 09/17/19 18:00 Freq: Status: Active Protocol: Document 01/30/20 12:30 LJ (Rec: 01/30/20 14:54 LJ [id number]) Aquatics Treatment Pool Entry/Exit Pool Entry/Exit Method Lift Assistance Minimal Assistance Water Walking Slow motion Water Level Chest Level Walking Equipment wet vest, UE float, #2.5 ankle wt Level of Assistance Standby Assistance,Contact Guard Assistance,Moderate Assistance Comments emphasis on LLE extension stance phase [place] January Water Level Chest Level Walking Equipment wet vest, UE float, #2.5 ankle wt Level of Assistance Standby Assistance,Contact Guard Assistance,Moderate Assistance,Verbal Cues Forward with emphasis on reciprocal gait pattern Water Level Chest Level Level of Assistance Standby Assistance,Contact Guard Assistance,Minimal Assistance,Verbal Cues Comments wetvest, sm float on LUE, #3. 75 ankle wt on LLE start stop walking forward and backward Water Level Chest Level Walking Equipment vest Level of Assistance Contact Guard Assistance, Verbal Cues Comments wetvest, sm float on LUE, #3. 75 ankle wt on LLE Sideways Water Level Chest Level Walking Equipment wet vest, UE float, #2.5 ankle wt Level of Assistance Standby Assistance,Contact Guard Assistance,Minimal Assistance,Verbal Cues Lower Extremity Exercises SL aquats Details HH on wall Body Position Standing Water Level Waist Level Equipment wetvest Reps/Duration 2x10 LLE Comments VC to extend knee knee extensions Details seated in lift chair Equipment Ankle Weight- 5.0# Reps/Duration 20 B Comments seated in lift SLS Details bracing LLE Body Position Standing Water Level Chest Level Equipment vest Reps/Duration 1 min marching at wall Water Level Chest Level Reps/Duration 2 min Comments opposite UE/LE tapping wall squats Body Position Standing Water Level Chest Level Reps/Duration 20x Lower Extremity Stretches adductors Comments seated in chair Gastroc Body Position Sitting Reps/Duration 2 x 45 sec B Comments manual assist hip flexors Details at wall Body Position Standing Water Level Waist Level Reps/Duration 2x45 Comments manually assisted HS Details at wall Body Position Sitting Water Level Waist Level Equipment wet vest Reps/Duration 2x45 Comments sitting in lift chair assisted Upper Extremity Exercises breastroke UE's Body Position Standing Water Level Chest Level Reps/Duration 3 min Comments during walking and deep water hor ab/ad Water Level Chest Level Comments during side walking, CGA Balance step ups Details step ups/down using boxes Body Position Standing Water Level Waist Level Equipment 8 boxes Comments mod verbal cues for coordination [place] Activities [place] Activities Bicycle,Cross Country Equipment wet vest, white noodle Duration 7 min Comments Guy and cues for vertical alignmernt. PT-OP-T Assessment and Plan Start: 09/17/19 18:00 Freq: Status: Active Protocol: Document 05/31/20 15:20 DC (Rec: 05/31/20 16:04 [facility] [id number]) Physical Therapy Assessment Impairments Impairments Activity Tolerance,Balance, Coordination,Functional Activities,Functional Mobility ,Gait,Pain,ROM,Sensation, Strength,Tone,Transfers Goals Six Impairment Decreased Static Balance Short Term Goal (STG) Pt to score <9 seconds on TUG STG Duration 06/03/20 Foam Charger Goal (LTG) Pt to score 35/56 or better on the [place] Balance LTG Duration 07/04/20 Five Impairment Pt uses R rail and step-over gait pattern ascending stairs Care Home Goal (LTG) Pt to ascend/descend stairs independently without use of rail LTG Duration 07/04/20 Four Impairment Pt demonstrates strength impairment throughout left LE Care Home Goal (LTG) Pt to display MMT >3+/5 through L LE LTG Duration 07/04/20 - Improving Three Impairment Pt SBA for transfers and bed mobility d/t Left Neglect Care Home Goal (LTG) Pt to demonstrate independent transfers and bed mobility with an ability to address left LE and UE 80% of the time LTG Duration Met Two Impairment Pt ambulates 280' CGA /s an AD Short Term Goal (STG) Pt to ambulate 400' SBA independently STG Duration Met Foam Charger Goal (LTG) Pt to ambulate 800' during 6 MWT Independently without SBA LTG Duration 07/04/20 One Impairment Pt does not have an appropriate home exercise program Short Term Goal (STG) Pt to be independent and compliant with an appropriate HEP STG Duration Met Assessment Summary Assessment Pt tolerated treatment well today, having less leg pain, but was fatigued by the end of the session. Physical Therapy Plan Frequency and Duration Frequency of Treatment 2x/Week Duration of Treatment 3 months Plan of Care Start Date 05/04/20 Plan of Care End Date 08/04/20 Therapeutic Interventions Therapeutic Interventions Aquatic Therapy,Balance Training,Coordination Training ,Gait Training,Home Exercise Program,Manual Therapy, Neuromuscular Re-education, Patient/Caregiver Education, Self-Care/Home Management, Therapeutic Activities, Therapeutic Exercises Modalities Cold Pack/Ice Massage,Electric Stimulation,Hot Packs, Ultrasound Next Visit Focus/Plan Next Note Type Treatment Note Next Visit Plan Continue to challenge, continue strengthening, balance and gait training with NMR. Continue deep water for cardio training and core stabilization. Focus on bilateral knee extension in shallow water gait training
--- NOTE | 2020-06-02 17:01 | PT.OTN ---
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) Physical Therapy Treatment Note PT-OP-A Visit Information Start: 09/17/19 18:00 Freq: Status: Active Protocol: Document 06/02/20 16:00 DCW (Rec: 06/02/20 17:01 DCW [id number]) Out-Patient Physical Therapy Visit Information Visit Information Visit Type Treatment Note Visit Start Time 16:00 Visit Stop Time 16:45 Total Visit Minutes 45 Visit Number 44 Number of POLICE OFFICER CRIME PREVENTION Visits 0 Evaluation Information Evaluation Date 09/17/19 PT-OP-B Current Condition Start: 09/17/19 18:00 Freq: Status: Active Protocol: Document 09/17/19 12:00 DCW (Rec: 09/18/19 10:29 DCW [id number]) Current Condition History of Current Condition Onset Date 04/14/19 Current Complaints Hemiparesis secondary to CVA History of Current Condition Pt is a 69 year old male presenting to skilled outpatient physical therapy with left-side neglect, hemiparesis, loss of independence, and difficulty walking following an intraparenchymal hemorrhage on 04/14/19. Pt was transferred from [facility] to [facility], where a craniotomy was performed on 04/16/19. Pt completed 7 weeks of rehab/ recovery at [facility], and then underwent a second surgery on 06/26/19 to replace the skull fragment. Pt was then at an acute rehab facility 06/30-07/18/19, and since then has been receiving home health physical therapy. Pt presents today with limited left-sided function, left visual and physical neglect, difficulty with transfers, decreased activity tolerance, decreased gait, and many other secondary effects following his CVA. Pt has been working on ambulation with a vale walker with home health, and his states he has walked around 100' a few times, but always with a therapist, as she does not feel comfortable walking with him yet. Pt exclusively gets around at time of evaluation in a manual wheelchair. Pt's transfers have been going fairly well, with his caregivers performing CGA, however pt will occasionally need assistance with placement of his left UE and LE due to neglect. Pt's biggest complaint at the moment is leg pain, his reports they have tried PT, Massage, CBD il, Tylenol, Oxycodine, and Gabapentin, all with minimal benefit. Prior to CVA, pt was fully independent in all activities. Pt and have garegivers 8 hrs a day for assistance. Prior Treatments and Tests Craniotomy 04/16/19, Acute rehab, Skull fragment replacement 06/26/19, home health PT Prior Functional Status Baseline Function- ADL's Independent Baseline Function- Mobility Independent PT-OP-C Subjective Start: 09/17/19 18:00 Freq: Status: Active Protocol: Document 06/02/20 16:00 DCW (Rec: 06/02/20 17:01 DCW [id number]) OP-PT Subjective Patient Comments Patient Comments Pt reports he is frustrated today after struggling in speech therapy earlier. PT-OP-E Functional Tests Start: 05/04/20 15:15 Freq: Status: Active Protocol: Document 05/04/20 15:15 DCW (Rec: 05/04/20 15:55 DCW [id number]) Functional Tests 6 Minute Walk Test Distance 870' Device Used none Comments 2.42 ft/sec Timed Up and Go (TUG) Score 10.82 seconds Comments 3-trial average (11.15, 11.05, 10.26) TUG Impairment Rating 1 to <20% Impaired (Score 11) PT-OP-G Mobility & Gait Start: 09/17/19 18:00 Freq: Status: Active Protocol: Document 05/04/20 15:15 DCW (Rec: 05/04/20 15:55 DCW [id number]) OP Mobility Evaluation Bed Mobility Rolling Independent Supine to and from Sit Independent Transfers Sit to Stand SBA Bed to Chair Transfers SBA OP Gait Assessment Gait Gait Assistance Required: Contact Guard Assist Distance (Feet) 870 Assistive Devices Assistive Device None Gait Deviations General Gait Pattern Antalgic,Ataxic,Decreased Stride Length,Decreased Feet Clearance,Flexed Trunk,Lateral Trunk Lean Factors Limiting Gait Function Factors Limiting Gait Function Abnormal Tonal Influences, Decreased Activity Tolerance, Decreased Sensation,Decreased Strength,Incoordination,Poor Balance,Poor Safety Awareness Comments Gait Comments Improved foot clearance, no instances of scissoring gait, better ability to visually scan for path finding and obstacle avoidance. Stair Climbing Evaluation Evaluation Level of Assist On Stairs Contact Guard Assistance Devices Stair Climbing Assistive Devices Right Railing Technique/Endurance Stair Climbing Direction Ascend and Descend Stair Climbing Technique Step Over Step,Step to Step Number of Steps Climbed 4 Stair Climbing Set # Repetitions (reps) 6 Comments Stair Climbing Comments Step-over ascending, step-to descending. Occasional scissoring with left during descent. PT-OP-H Neuro Start: 09/17/19 18:00 Freq: Status: Active Protocol: Document 05/04/20 15:15 DCW (Rec: 05/04/20 15:55 DCW [id number]) Sensation Evaluation Gross Sensation Gross Sensation Left UE Impaired,Left LE Impaired Sensation Description Paresthesia,Numbness,Pain Location Details Left Leg Light Touch Impaired Sharp/Dull Impaired Deep Pressure Intact/Normal Proprioception (Position) Impaired Kinesthesia (Movement) Impaired Deep Tendon Reflex & Clonus Assessment Deep Tendon Reflex Left Achilles Deep Tendon Reflex 3+ Normal But Brisk Left Patellar Deep Tendon Reflex 3+ Normal But Brisk Ankle Clonus Left Clonus Assessment Sustained Muscle Tone Tone Assessment Left Lower Extremity Flexor Tone Description Moderate Hypotonicity PT-OP-M Strength Start: 09/17/19 18:00 Freq: Status: Active Protocol: Document 05/04/20 15:15 DCW (Rec: 05/04/20 15:55 DCW [id number]) Hip Strength Hip Manual Muscle Testing Left Flexion (L2) 3 Fair Extension (S1) 3- Fair- Abduction 3 Fair Adduction 3+ Fair+ External Rotation 3+ Fair+ Internal Rotation 3+ Fair+ Reason Not Measured Muscle Tone Knee Strength Knee Manual Muscle Testing Left Flexion (S2) 4- Good- Extension (L3) 4 Good Reason Not Measured Muscle Tone,Pain Ankle/Foot Strength Ankle and Foot Manual Muscle Testing Left Dorsiflexion (L4) 4 Good Plantarflexion (S1) 3+ Fair+ Inversion 3+ Fair+ Eversion (S1) 3+ Fair+ PT-OP-Q Treatments Start: 09/17/19 18:00 Freq: Status: Active Protocol: Document 06/02/20 16:00 DCW (Rec: 06/02/20 17:01 DCW [id number]) Therapeutic Exercises Other Exercises Hurdles Other Exercise Name Hurdles Comments Fwd Side-stepping Other Exercise Name Side-stepping at rail - CGA Comments B UE use Gait Training Gait Activity No AD Description No AD Device Used None Level of Assistance SBA->CGA Distance/Duration 950' Comments VCs to promote heel-toe gait, extend left knee during stance phase Neuro Re-Education Treatment Balance Activities Standing Balance Details Bend, pick-up, and toss ball in standing, kick over cone PT-OP-R Modalities Start: 09/17/19 18:00 Freq: Status: Active Protocol: Document 10/10/19 13:45 HH (Rec: 10/10/19 16:17 HH [id number]) Hot Pack/Cold Pack Treatment moist heat Location L hip adductors Patient Position Hooklying Treatment Duration (minutes) 10 Patient Tolerance Good PT-OP-S Aquatic Treatment Start: 09/17/19 18:00 Freq: Status: Active Protocol: Document 01/30/20 12:30 LJ (Rec: 01/30/20 14:54 LJ [id number]) Aquatics Treatment Pool Entry/Exit Pool Entry/Exit Method Lift Assistance Minimal Assistance Water Walking Slow motion Water Level Chest Level Walking Equipment wet vest, UE float, #2.5 ankle wt Level of Assistance Standby Assistance,Contact Guard Assistance,Moderate Assistance Comments emphasis on LLE extension stance phase January Water Level Chest Level Walking Equipment wet vest, UE float, #2.5 ankle wt Level of Assistance Standby Assistance,Contact Guard Assistance,Moderate Assistance,Verbal Cues Forward with emphasis on reciprocal gait pattern Water Level Chest Level Level of Assistance Standby Assistance,Contact Guard Assistance,Minimal Assistance,Verbal Cues Comments wetvest, sm float on LUE, #3. 75 ankle wt on LLE start stop walking forward and backward Water Level Chest Level Walking Equipment vest Level of Assistance Contact Guard Assistance, Verbal Cues Comments wetvest, sm float on LUE, #3. 75 ankle wt on LLE Sideways Water Level Chest Level Walking Equipment wet vest, UE float, #2.5 ankle wt Level of Assistance Standby Assistance,Contact Guard Assistance,Minimal Assistance,Verbal Cues Lower Extremity Exercises SL aquats Details HH on wall Body Position Standing Water Level Waist Level Equipment wetvest Reps/Duration 2x10 LLE Comments VC to extend knee knee extensions Details seated in lift chair Equipment Ankle Weight- 5.0# Reps/Duration 20 B Comments seated in lift SLS Details bracing LLE Body Position Standing Water Level Chest Level Equipment vest Reps/Duration 1 min marching at wall Water Level Chest Level Reps/Duration 2 min Comments opposite UE/LE tapping wall squats Body Position Standing Water Level Chest Level Reps/Duration 20x Lower Extremity Stretches adductors Comments seated in chair Gastroc Body Position Sitting Reps/Duration 2 x 45 sec B Comments manual assist hip flexors Details at wall Body Position Standing Water Level Waist Level Reps/Duration 2x45 Comments manually assisted HS Details at wall Body Position Sitting Water Level Waist Level Equipment wet vest Reps/Duration 2x45 Comments sitting in lift chair assisted Upper Extremity Exercises breastroke UE's Body Position Standing Water Level Chest Level Reps/Duration 3 min Comments during walking and deep water hor ab/ad Water Level Chest Level Comments during side walking, CGA Balance step ups Details step ups/down using boxes Body Position Standing Water Level Waist Level Equipment 8 boxes Comments mod verbal cues for coordination Jenison Activities Jenison Activities Bicycle,Cross Country Equipment wet vest, white noodle Duration 7 min Comments Guy and cues for vertical alignmernt. PT-OP-T Assessment and Plan Start: 09/17/19 18:00 Freq: Status: Active Protocol: Document 06/02/20 16:00 DCW (Rec: 06/02/20 17:01 DCW [id number]) Physical Therapy Assessment Impairments Impairments Activity Tolerance,Balance, Coordination,Functional Activities,Functional Mobility ,Gait,Pain,ROM,Sensation, Strength,Tone,Transfers Goals Six Impairment Decreased Static Balance Short Term Goal (STG) Pt to score <9 seconds on TUG STG Duration 06/03/20 Prison Goal (LTG) Pt to score 35/56 or better on the [place]ler Balance LTG Duration 07/04/20 Five Impairment Pt uses R rail and step-over gait pattern ascending stairs Welder Oxyhydrogen Goal (LTG) Pt to ascend/descend stairs independently without use of rail LTG Duration 07/04/20 Four Impairment Pt demonstrates strength impairment throughout left LE Prison Goal (LTG) Pt to display MMT >3+/5 through L LE LTG Duration 07/04/20 - Improving Three Impairment Pt SBA for transfers and bed mobility d/t Left Neglect Prison Goal (LTG) Pt to demonstrate independent transfers and bed mobility with an ability to address left LE and UE 80% of the time LTG Duration Met Two Impairment Pt ambulates 280' CGA /s an AD Short Term Goal (STG) Pt to ambulate 400' SBA independently STG Duration Met Welder Oxyhydrogen Goal (LTG) Pt to ambulate 800' during 6 MWT Independently without SBA LTG Duration 07/04/20 One Impairment Pt does not have an appropriate home exercise program Short Term Goal (STG) Pt to be independent and compliant with an appropriate HEP STG Duration Met Assessment Summary Assessment Pt showed substantial improvement with hurdles today , was able to clear them with ~70% accuracy. Physical Therapy Plan Frequency and Duration Frequency of Treatment 2x/Week Duration of Treatment 3 months Plan of Care Start Date 05/04/20 Plan of Care End Date 08/04/20 Therapeutic Interventions Therapeutic Interventions Aquatic Therapy,Balance Training,Coordination Training ,Gait Training,Home Exercise Program,Manual Therapy, Neuromuscular Re-education, Patient/Caregiver Education, Self-Care/Home Management, Therapeutic Activities, Therapeutic Exercises Modalities Cold Pack/Ice Massage,Electric Stimulation,Hot Packs, Ultrasound Next Visit Focus/Plan Next Note Type Treatment Note Next Visit Plan Continue to challenge, continue strengthening, balance and gait training with NMR. Continue deep water for cardio training and core stabilization. Focus on bilateral knee extension in shallow water gait training
--- NOTE | 2020-06-07 17:35 | PT.OTN ---
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) Physical Therapy Treatment Note PT-OP-A Visit Information Start: 09/17/19 18:00 Freq: Status: Active Protocol: Document 06/07/20 16:45 DCW (Rec: 06/07/20 17:35 DCW [id number]) Out-Patient Physical Therapy Visit Information Visit Information Visit Type Treatment Note Visit Start Time 16:45 Visit Stop Time 17:30 Total Visit Minutes 45 Visit Number 45 Number of RN TRAUMA Visits 0 Evaluation Information Evaluation Date 09/17/19 PT-OP-B Current Condition Start: 09/17/19 18:00 Freq: Status: Active Protocol: Document 09/17/19 12:00 DCW (Rec: 09/18/19 10:29 DCW [id number]) Current Condition History of Current Condition Onset Date 04/14/19 Current Complaints Hemiparesis secondary to CVA History of Current Condition Pt is a 69 year old male presenting to skilled outpatient physical therapy with left-side neglect, hemiparesis, loss of independence, and difficulty walking following an intraparenchymal hemorrhage on 04/14/19. Pt was transferred from [facility] to [facility], where a craniotomy was performed on 04/16/19. Pt completed 7 weeks of rehab/ recovery at [facility], and then underwent a second surgery on 06/26/19 to replace the skull fragment. Pt was then at an acute rehab facility 06/30-07/18/19, and since then has been receiving home health physical therapy. Pt presents today with limited left-sided function, left visual and physical neglect, difficulty with transfers, decreased activity tolerance, decreased gait, and many other secondary effects following his CVA. Pt has been working on ambulation with a vale walker with home health, and his states he has walked around 100' a few times, but always with a therapist, as she does not feel comfortable walking with him yet. Pt exclusively gets around at time of evaluation in a manual wheelchair. Pt's transfers have been going fairly well, with his caregivers performing CGA, however pt will occasionally need assistance with placement of his left UE and LE due to neglect. Pt's biggest complaint at the moment is leg pain, his reports they have tried PT, Massage, CBD il, Tylenol, Oxycodine, and Gabapentin, all with minimal benefit. Prior to CVA, pt was fully independent in all activities. Pt and have garegivers 8 hrs a day for assistance. Prior Treatments and Tests Craniotomy 04/16/19, Acute rehab, Skull fragment replacement 06/26/19, home health PT Prior Functional Status Baseline Function- ADL's Independent Baseline Function- Mobility Independent PT-OP-C Subjective Start: 09/17/19 18:00 Freq: Status: Active Protocol: Document 06/07/20 16:45 DCW (Rec: 06/07/20 17:35 DCW [id number]) OP-PT Subjective Patient Comments Patient Comments Pt doing well today. PT-OP-E Functional Tests Start: 05/04/20 15:15 Freq: Status: Active Protocol: Document 05/04/20 15:15 DCW (Rec: 05/04/20 15:55 DCW [id number]) Functional Tests 6 Minute Walk Test Distance 870' Device Used none Comments 2.42 ft/sec Timed Up and Go (TUG) Score 10.82 seconds Comments 3-trial average (11.15, 11.05, 10.26) TUG Impairment Rating 1 to <20% Impaired (Score 11) PT-OP-G Mobility & Gait Start: 09/17/19 18:00 Freq: Status: Active Protocol: Document 05/04/20 15:15 DCW (Rec: 05/04/20 15:55 DCW [id number]) OP Mobility Evaluation Bed Mobility Rolling Independent Supine to and from Sit Independent Transfers Sit to Stand SBA Bed to Chair Transfers SBA OP Gait Assessment Gait Gait Assistance Required: Contact Guard Assist Distance (Feet) 870 Assistive Devices Assistive Device None Gait Deviations General Gait Pattern Antalgic,Ataxic,Decreased Stride Length,Decreased Feet Clearance,Flexed Trunk,Lateral Trunk Lean Factors Limiting Gait Function Factors Limiting Gait Function Abnormal Tonal Influences, Decreased Activity Tolerance, Decreased Sensation,Decreased Strength,Incoordination,Poor Balance,Poor Safety Awareness Comments Gait Comments Improved foot clearance, no instances of scissoring gait, better ability to visually scan for path finding and obstacle avoidance. Stair Climbing Evaluation Evaluation Level of Assist On Stairs Contact Guard Assistance Devices Stair Climbing Assistive Devices Right Railing Technique/Endurance Stair Climbing Direction Ascend and Descend Stair Climbing Technique Step Over Step,Step to Step Number of Steps Climbed 4 Stair Climbing Set # Repetitions (reps) 6 Comments Stair Climbing Comments Step-over ascending, step-to descending. Occasional scissoring with left during descent. PT-OP-H Neuro Start: 09/17/19 18:00 Freq: Status: Active Protocol: Document 05/04/20 15:15 DCW (Rec: 05/04/20 15:55 DCW [id number]) Sensation Evaluation Gross Sensation Gross Sensation Left UE Impaired,Left LE Impaired Sensation Description Paresthesia,Numbness,Pain Location Details Left Leg Light Touch Impaired Sharp/Dull Impaired Deep Pressure Intact/Normal Proprioception (Position) Impaired Kinesthesia (Movement) Impaired Deep Tendon Reflex & Clonus Assessment Deep Tendon Reflex Left Achilles Deep Tendon Reflex 3+ Normal But Brisk Left Patellar Deep Tendon Reflex 3+ Normal But Brisk Ankle Clonus Left Clonus Assessment Sustained Muscle Tone Tone Assessment Left Lower Extremity Flexor Tone Description Moderate Hypotonicity PT-OP-M Strength Start: 09/17/19 18:00 Freq: Status: Active Protocol: Document 05/04/20 15:15 DCW (Rec: 05/04/20 15:55 DCW [id number]) Hip Strength Hip Manual Muscle Testing Left Flexion (L2) 3 Fair Extension (S1) 3- Fair- Abduction 3 Fair Adduction 3+ Fair+ External Rotation 3+ Fair+ Internal Rotation 3+ Fair+ Reason Not Measured Muscle Tone Knee Strength Knee Manual Muscle Testing Left Flexion (S2) 4- Good- Extension (L3) 4 Good Reason Not Measured Muscle Tone,Pain Ankle/Foot Strength Ankle and Foot Manual Muscle Testing Left Dorsiflexion (L4) 4 Good Plantarflexion (S1) 3+ Fair+ Inversion 3+ Fair+ Eversion (S1) 3+ Fair+ PT-OP-Q Treatments Start: 09/17/19 18:00 Freq: Status: Active Protocol: Document 06/07/20 16:45 DCW (Rec: 06/07/20 17:35 DCW [id number]) Gym Equipment Shuttle Balance Green Details Wide [email or web address] Comments EO/EC, vs Perturbations, /c head turns Therapeutic Exercises Other Exercises Hurdles Other Exercise Name Hurdles Comments Fwd Side-stepping Other Exercise Name Side-stepping at rail - CGA Resistance Yellow Equipment Used T-band Comments B UE use Gait Training Gait Activity No AD Description No AD Device Used None Level of Assistance SBA->CGA Distance/Duration 950' Comments VCs to promote heel-toe gait, extend left knee during stance phase Neuro Re-Education Treatment Balance Activities Standing Balance Details Bend, pick-up, and toss ball in standing, kick over cone PT-OP-R Modalities Start: 09/17/19 18:00 Freq: Status: Active Protocol: Document 10/10/19 13:45 HH (Rec: 10/10/19 16:17 HH [id number]) Hot Pack/Cold Pack Treatment moist heat Location L hip adductors Patient Position Hooklying Treatment Duration (minutes) 10 Patient Tolerance Good PT-OP-S Aquatic Treatment Start: 09/17/19 18:00 Freq: Status: Active Protocol: Document 01/30/20 12:30 LJ (Rec: 01/30/20 14:54 LJ [id number]) Aquatics Treatment Pool Entry/Exit Pool Entry/Exit Method Lift Assistance Minimal Assistance Water Walking Slow motion Water Level Chest Level Walking Equipment wet vest, UE float, #2.5 ankle wt Level of Assistance Standby Assistance,Contact Guard Assistance,Moderate Assistance Comments emphasis on LLE extension stance phase January Water Level Chest Level Walking Equipment wet vest, UE float, #2.5 ankle wt Level of Assistance Standby Assistance,Contact Guard Assistance,Moderate Assistance,Verbal Cues Forward with emphasis on reciprocal gait pattern Water Level Chest Level Level of Assistance Standby Assistance,Contact Guard Assistance,Minimal Assistance,Verbal Cues Comments wetvest, sm float on LUE, #3. 75 ankle wt on LLE start stop walking forward and backward Water Level Chest Level Walking Equipment vest Level of Assistance Contact Guard Assistance, Verbal Cues Comments wetvest, sm float on LUE, #3. 75 ankle wt on LLE Sideways Water Level Chest Level Walking Equipment wet vest, UE float, #2.5 ankle wt Level of Assistance Standby Assistance,Contact Guard Assistance,Minimal Assistance,Verbal Cues Lower Extremity Exercises SL aquats Details HH on wall Body Position Standing Water Level Waist Level Equipment wetvest Reps/Duration 2x10 LLE Comments VC to extend knee knee extensions Details seated in lift chair Equipment Ankle Weight- 5.0# Reps/Duration 20 B Comments seated in lift SLS Details bracing LLE Body Position Standing Water Level Chest Level Equipment vest Reps/Duration 1 min marching at wall Water Level Chest Level Reps/Duration 2 min Comments opposite UE/LE tapping wall squats Body Position Standing Water Level Chest Level Reps/Duration 20x Lower Extremity Stretches adductors Comments seated in chair Gastroc Body Position Sitting Reps/Duration 2 x 45 sec B Comments manual assist hip flexors Details at wall Body Position Standing Water Level Waist Level Reps/Duration 2x45 Comments manually assisted HS Details at wall Body Position Sitting Water Level Waist Level Equipment wet vest Reps/Duration 2x45 Comments sitting in lift chair assisted Upper Extremity Exercises breastroke UE's Body Position Standing Water Level Chest Level Reps/Duration 3 min Comments during walking and deep water hor ab/ad Water Level Chest Level Comments during side walking, CGA Balance step ups Details step ups/down using boxes Body Position Standing Water Level Waist Level Equipment 8 boxes Comments mod verbal cues for coordination [place] Activities [place] Activities Bicycle,Cross Country Equipment wet vest, white noodle Duration 7 min Comments Guy and cues for vertical alignmernt. PT-OP-T Assessment and Plan Start: 09/17/19 18:00 Freq: Status: Active Protocol: Document 06/07/20 16:45 DCW (Rec: 06/07/20 17:35 DCW [id number]) Physical Therapy Assessment Impairments Impairments Activity Tolerance,Balance, Coordination,Functional Activities,Functional Mobility ,Gait,Pain,ROM,Sensation, Strength,Tone,Transfers Goals Six Impairment Decreased Static Balance Short Term Goal (STG) Pt to score <9 seconds on TUG STG Duration 06/03/20 Custodial Goal (LTG) Pt to score 35/56 or better on the [place] Balance LTG Duration 07/04/20 Five Impairment Pt uses R rail and step-over gait pattern ascending stairs Wire Coiler Goal (LTG) Pt to ascend/descend stairs independently without use of rail LTG Duration 07/04/20 Four Impairment Pt demonstrates strength impairment throughout left LE Custodial Goal (LTG) Pt to display MMT >3+/5 through L LE LTG Duration 07/04/20 - Improving Three Impairment Pt SBA for transfers and bed mobility d/t Left Neglect Wire Coiler Goal (LTG) Pt to demonstrate independent transfers and bed mobility with an ability to address left LE and UE 80% of the time LTG Duration Met Two Impairment Pt ambulates 280' CGA /s an AD Short Term Goal (STG) Pt to ambulate 400' SBA independently STG Duration Met Custodial Goal (LTG) Pt to ambulate 800' during 6 MWT Independently without SBA LTG Duration 07/04/20 One Impairment Pt does not have an appropriate home exercise program Short Term Goal (STG) Pt to be independent and compliant with an appropriate HEP STG Duration Met Assessment Summary Assessment Pt a little more fatigued today, but was able to work very hard and complete all tasks. Balance slightly worse today, pt caught his foot during ambulation multiple times. Physical Therapy Plan Frequency and Duration Frequency of Treatment 2x/Week Duration of Treatment 3 months Plan of Care Start Date 05/04/20 Plan of Care End Date 08/04/20 Therapeutic Interventions Therapeutic Interventions Aquatic Therapy,Balance Training,Coordination Training ,Gait Training,Home Exercise Program,Manual Therapy, Neuromuscular Re-education, Patient/Caregiver Education, Self-Care/Home Management, Therapeutic Activities, Therapeutic Exercises Modalities Cold Pack/Ice Massage,Electric Stimulation,Hot Packs, Ultrasound Next Visit Focus/Plan Next Note Type Treatment Note Next Visit Plan Continue to challenge, continue strengthening, balance and gait training with NMR. Continue deep water for cardio training and core stabilization. Focus on bilateral knee extension in shallow water gait training
--- NOTE | 2020-06-09 15:14 | PT.OTN ---
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) Physical Therapy Treatment Note PT-OP-A Visit Information Start: 09/17/19 18:00 Freq: Status: Active Protocol: Document 06/09/20 14:30 DCW (Rec: 06/09/20 15:14 DCW [id number]) Out-Patient Physical Therapy Visit Information Visit Information Visit Type Treatment Note Visit Start Time 14:30 Visit Stop Time 15:15 Total Visit Minutes 45 Visit Number 46 Number of GUNITE NOZZLE OPERATOR Visits 0 Evaluation Information Evaluation Date 09/17/19 PT-OP-B Current Condition Start: 09/17/19 18:00 Freq: Status: Active Protocol: Document 09/17/19 12:00 DCW (Rec: 09/18/19 10:29 DCW [id number]) Current Condition History of Current Condition Onset Date 04/14/19 Current Complaints Hemiparesis secondary to CVA History of Current Condition Pt is a 69 year old male presenting to skilled outpatient physical therapy with left-side neglect, hemiparesis, loss of independence, and difficulty walking following an intraparenchymal hemorrhage on 04/14/19. Pt was transferred from [facility] to [facility], where a craniotomy was performed on 04/16/19. Pt completed 7 weeks of rehab/ recovery at [facility], and then underwent a second surgery on 06/26/19 to replace the skull fragment. Pt was then at an acute rehab facility 06/30-07/18/19, and since then has been receiving home health physical therapy. Pt presents today with limited left-sided function, left visual and physical neglect, difficulty with transfers, decreased activity tolerance, decreased gait, and many other secondary effects following his CVA. Pt has been working on ambulation with a vale walker with home health, and his states he has walked around 100' a few times, but always with a therapist, as she does not feel comfortable walking with him yet. Pt exclusively gets around at time of evaluation in a manual wheelchair. Pt's transfers have been going fairly well, with his caregivers performing CGA, however pt will occasionally need assistance with placement of his left UE and LE due to neglect. Pt's biggest complaint at the moment is leg pain, his reports they have tried PT, Massage, CBD il, Tylenol, Oxycodine, and Gabapentin, all with minimal benefit. Prior to CVA, pt was fully independent in all activities. Pt and have garegivers 8 hrs a day for assistance. Prior Treatments and Tests Craniotomy 04/16/19, Acute rehab, Skull fragment replacement 06/26/19, home health PT Prior Functional Status Baseline Function- ADL's Independent Baseline Function- Mobility Independent PT-OP-C Subjective Start: 09/17/19 18:00 Freq: Status: Active Protocol: Document 06/09/20 14:30 DCW (Rec: 06/09/20 15:14 DCW [id number]) OP-PT Subjective Patient Comments Patient Comments Pt still having some pain along dorsal surface of foot. PT-OP-E Functional Tests Start: 05/04/20 15:15 Freq: Status: Active Protocol: Document 05/04/20 15:15 DCW (Rec: 05/04/20 15:55 DCW [id number]) Functional Tests 6 Minute Walk Test Distance 870' Device Used none Comments 2.42 ft/sec Timed Up and Go (TUG) Score 10.82 seconds Comments 3-trial average (11.15, 11.05, 10.26) TUG Impairment Rating 1 to <20% Impaired (Score 11) PT-OP-G Mobility & Gait Start: 09/17/19 18:00 Freq: Status: Active Protocol: Document 05/04/20 15:15 DCW (Rec: 05/04/20 15:55 DCW [id number]) OP Mobility Evaluation Bed Mobility Rolling Independent Supine to and from Sit Independent Transfers Sit to Stand SBA Bed to Chair Transfers SBA OP Gait Assessment Gait Gait Assistance Required: Contact Guard Assist Distance (Feet) 870 Assistive Devices Assistive Device None Gait Deviations General Gait Pattern Antalgic,Ataxic,Decreased Stride Length,Decreased Feet Clearance,Flexed Trunk,Lateral Trunk Lean Factors Limiting Gait Function Factors Limiting Gait Function Abnormal Tonal Influences, Decreased Activity Tolerance, Decreased Sensation,Decreased Strength,Incoordination,Poor Balance,Poor Safety Awareness Comments Gait Comments Improved foot clearance, no instances of scissoring gait, better ability to visually scan for path finding and obstacle avoidance. Stair Climbing Evaluation Evaluation Level of Assist On Stairs Contact Guard Assistance Devices Stair Climbing Assistive Devices Right Railing Technique/Endurance Stair Climbing Direction Ascend and Descend Stair Climbing Technique Step Over Step,Step to Step Number of Steps Climbed 4 Stair Climbing Set # Repetitions (reps) 6 Comments Stair Climbing Comments Step-over ascending, step-to descending. Occasional scissoring with left during descent. PT-OP-H Neuro Start: 09/17/19 18:00 Freq: Status: Active Protocol: Document 05/04/20 15:15 DCW (Rec: 05/04/20 15:55 DCW [id number]) Sensation Evaluation Gross Sensation Gross Sensation Left UE Impaired,Left LE Impaired Sensation Description Paresthesia,Numbness,Pain Location Details Left Leg Light Touch Impaired Sharp/Dull Impaired Deep Pressure Intact/Normal Proprioception (Position) Impaired Kinesthesia (Movement) Impaired Deep Tendon Reflex & Clonus Assessment Deep Tendon Reflex Left Achilles Deep Tendon Reflex 3+ Normal But Brisk Left Patellar Deep Tendon Reflex 3+ Normal But Brisk Ankle Clonus Left Clonus Assessment Sustained Muscle Tone Tone Assessment Left Lower Extremity Flexor Tone Description Moderate Hypotonicity PT-OP-M Strength Start: 09/17/19 18:00 Freq: Status: Active Protocol: Document 05/04/20 15:15 DCW (Rec: 05/04/20 15:55 DCW [id number]) Hip Strength Hip Manual Muscle Testing Left Flexion (L2) 3 Fair Extension (S1) 3- Fair- Abduction 3 Fair Adduction 3+ Fair+ External Rotation 3+ Fair+ Internal Rotation 3+ Fair+ Reason Not Measured Muscle Tone Knee Strength Knee Manual Muscle Testing Left Flexion (S2) 4- Good- Extension (L3) 4 Good Reason Not Measured Muscle Tone,Pain Ankle/Foot Strength Ankle and Foot Manual Muscle Testing Left Dorsiflexion (L4) 4 Good Plantarflexion (S1) 3+ Fair+ Inversion 3+ Fair+ Eversion (S1) 3+ Fair+ PT-OP-Q Treatments Start: 09/17/19 18:00 Freq: Status: Active Protocol: Document 06/09/20 14:30 DCW (Rec: 06/09/20 15:14 DCW [id number]) Gym Equipment Shuttle Recovery Unilateral Heel Raises Details Left Resistance 25# Reps/Time calf stretch at end Unilateral Squats Details Left Resistance 62# Shuttle Recovery Platform Stable Bilateral Squats Resistance 100# Shuttle Recovery Platform Stable Shuttle Balance Red Details Wide [id number] Comments Mod Ax1 Therapeutic Exercises Sitting Exercises Dorsiflexion Sitting Exercise Name Dorsiflexion Side left Comments Focus on neutral DF /s inversion Seated Marching Sitting Exercise Name Seated Marching Side bilateral Resistance 10# Equipment Used ankle weights Reps/Minutes 10 bilat Comments cues for slow controlled movement Standing Exercises Hip Extension Standing Exercise Name Extension Side bilateral Resistance Lv 2 Equipment Used T-band SLS Standing Exercise Name SLS Equipment Used // bars Comments CGA Abduction Standing Exercise Name L hip abduction Gait Training Gait Activity No AD Description No AD Device Used None Level of Assistance SBA->CGA Distance/Duration 855' Comments VCs to promote heel-toe gait, extend left knee during stance phase PT-OP-R Modalities Start: 09/17/19 18:00 Freq: Status: Active Protocol: Document 10/10/19 13:45 HH (Rec: 10/10/19 16:17 HH [id number]) Hot Pack/Cold Pack Treatment moist heat Location L hip adductors Patient Position Hooklying Treatment Duration (minutes) 10 Patient Tolerance Good PT-OP-S Aquatic Treatment Start: 09/17/19 18:00 Freq: Status: Active Protocol: Document 01/30/20 12:30 LJ (Rec: 01/30/20 14:54 LJ [id number]) Aquatics Treatment Pool Entry/Exit Pool Entry/Exit Method Lift Assistance Minimal Assistance Water Walking Slow motion Water Level Chest Level Walking Equipment wet vest, UE float, #2.5 ankle wt Level of Assistance Standby Assistance,Contact Guard Assistance,Moderate Assistance Comments emphasis on LLE extension stance phase January Water Level Chest Level Walking Equipment wet vest, UE float, #2.5 ankle wt Level of Assistance Standby Assistance,Contact Guard Assistance,Moderate Assistance,Verbal Cues Forward with emphasis on reciprocal gait pattern Water Level Chest Level Level of Assistance Standby Assistance,Contact Guard Assistance,Minimal Assistance,Verbal Cues Comments wetvest, sm float on LUE, #3. 75 ankle wt on LLE start stop walking forward and backward Water Level Chest Level Walking Equipment vest Level of Assistance Contact Guard Assistance, Verbal Cues Comments wetvest, sm float on LUE, #3. 75 ankle wt on LLE Sideways Water Level Chest Level Walking Equipment wet vest, UE float, #2.5 ankle wt Level of Assistance Standby Assistance,Contact Guard Assistance,Minimal Assistance,Verbal Cues Lower Extremity Exercises SL aquats Details HH on wall Body Position Standing Water Level Waist Level Equipment wetvest Reps/Duration 2x10 LLE Comments VC to extend knee knee extensions Details seated in lift chair Equipment Ankle Weight- 5.0# Reps/Duration 20 B Comments seated in lift SLS Details bracing LLE Body Position Standing Water Level Chest Level Equipment vest Reps/Duration 1 min marching at wall Water Level Chest Level Reps/Duration 2 min Comments opposite UE/LE tapping wall squats Body Position Standing Water Level Chest Level Reps/Duration 20x Lower Extremity Stretches adductors Comments seated in chair Gastroc Body Position Sitting Reps/Duration 2 x 45 sec B Comments manual assist hip flexors Details at wall Body Position Standing Water Level Waist Level Reps/Duration 2x45 Comments manually assisted HS Details at wall Body Position Sitting Water Level Waist Level Equipment wet vest Reps/Duration 2x45 Comments sitting in lift chair assisted Upper Extremity Exercises breastroke UE's Body Position Standing Water Level Chest Level Reps/Duration 3 min Comments during walking and deep water hor ab/ad Water Level Chest Level Comments during side walking, CGA Balance step ups Details step ups/down using boxes Body Position Standing Water Level Waist Level Equipment 8 boxes Comments mod verbal cues for coordination [place] Activities [place] Activities Bicycle,Cross Country Equipment wet vest, white noodle Duration 7 min Comments uGy and cues for vertical alignmernt. PT-OP-T Assessment and Plan Start: 09/17/19 18:00 Freq: Status: Active Protocol: Document 06/09/20 14:30 DCW (Rec: 06/09/20 15:14 DCW [id number]) Physical Therapy Assessment Impairments Impairments Activity Tolerance,Balance, Coordination,Functional Activities,Functional Mobility ,Gait,Pain,ROM,Sensation, Strength,Tone,Transfers Goals Six Impairment Decreased Static Balance Short Term Goal (STG) Pt to score <9 seconds on TUG STG Duration 06/03/20 Usp Goal (LTG) Pt to score 35/56 or better on the Adler Balance LTG Duration 07/04/20 Five Impairment Pt uses R rail and step-over gait pattern ascending stairs Usp Goal (LTG) Pt to ascend/descend stairs independently without use of rail LTG Duration 07/04/20 Four Impairment Pt demonstrates strength impairment throughout left LE Telecommunications Network Engineer Goal (LTG) Pt to display MMT >3+/5 through L LE LTG Duration 07/04/20 - Improving Three Impairment Pt SBA for transfers and bed mobility d/t Left Neglect Telecommunications Network Engineer Goal (LTG) Pt to demonstrate independent transfers and bed mobility with an ability to address left LE and UE 80% of the time LTG Duration Met Two Impairment Pt ambulates 280' CGA /s an AD Short Term Goal (STG) Pt to ambulate 400' SBA independently STG Duration Met Telecommunications Network Engineer Goal (LTG) Pt to ambulate 800' during 6 MWT Independently without SBA LTG Duration 07/04/20 One Impairment Pt does not have an appropriate home exercise program Short Term Goal (STG) Pt to be independent and compliant with an appropriate HEP STG Duration Met Assessment Summary Assessment Pt a fairly well with increased difficulty on Shuttle Balance to red clips, though required Min->Mod A to maintain balance, pretty fatigued afterward. Physical Therapy Plan Frequency and Duration Frequency of Treatment 2x/Week Duration of Treatment 3 months Plan of Care Start Date 05/04/20 Plan of Care End Date 08/04/20 Therapeutic Interventions Therapeutic Interventions Aquatic Therapy,Balance Training,Coordination Training ,Gait Training,Home Exercise Program,Manual Therapy, Neuromuscular Re-education, Patient/Caregiver Education, Self-Care/Home Management, Therapeutic Activities, Therapeutic Exercises Modalities Cold Pack/Ice Massage,Electric Stimulation,Hot Packs, Ultrasound Next Visit Focus/Plan Next Note Type Treatment Note Next Visit Plan Continue to challenge, continue strengthening, balance and gait training with NMR. Continue deep water for cardio training and core stabilization. Focus on bilateral knee extension in shallow water gait training
--- NOTE | 2020-06-14 15:16 | PT.OTN ---
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) Physical Therapy Treatment Note PT-OP-A Visit Information Start: 09/17/19 18:00 Freq: Status: Active Protocol: Document 06/14/20 14:30 DCW (Rec: 06/14/20 15:16 DCW [id number]) Out-Patient Physical Therapy Visit Information Visit Information Visit Type Treatment Note Visit Start Time 14:30 Visit Stop Time 15:15 Total Visit Minutes 45 Visit Number 47 Number of SAND WHEELER Visits 0 Evaluation Information Evaluation Date 09/17/19 PT-OP-B Current Condition Start: 09/17/19 18:00 Freq: Status: Active Protocol: Document 09/17/19 12:00 DCW (Rec: 09/18/19 10:29 DCW [id number]) Current Condition History of Current Condition Onset Date 04/14/19 Current Complaints Hemiparesis secondary to CVA History of Current Condition Pt is a 69 year old male presenting to skilled outpatient physical therapy with left-side neglect, hemiparesis, loss of independence, and difficulty walking following an intraparenchymal hemorrhage on 04/14/19. Pt was transferred from [facility] to [facility], where a craniotomy was performed on 04/16/19. Pt completed 7 weeks of rehab/ recovery at [facility], and then underwent a second surgery on 06/26/19 to replace the skull fragment. Pt was then at an acute rehab facility 06/30-07/18/19, and since then has been receiving home health physical therapy. Pt presents today with limited left-sided function, left visual and physical neglect, difficulty with transfers, decreased activity tolerance, decreased gait, and many other secondary effects following his CVA. Pt has been working on ambulation with a vale walker with home health, and his states he has walked around 100' a few times, but always with a therapist, as she does not feel comfortable walking with him yet. Pt exclusively gets around at time of evaluation in a manual wheelchair. Pt's transfers have been going fairly well, with his caregivers performing CGA, however pt will occasionally need assistance with placement of his left UE and LE due to neglect. Pt's biggest complaint at the moment is leg pain, his reports they have tried PT, Massage, CBD il, Tylenol, Oxycodine, and Gabapentin, all with minimal benefit. Prior to CVA, pt was fully independent in all activities. Pt and have garegivers 8 hrs a day for assistance. Prior Treatments and Tests Craniotomy 04/16/19, Acute rehab, Skull fragment replacement 06/26/19, home health PT Prior Functional Status Baseline Function- ADL's Independent Baseline Function- Mobility Independent PT-OP-C Subjective Start: 09/17/19 18:00 Freq: Status: Active Protocol: Document 06/14/20 14:30 DCW (Rec: 06/14/20 15:16 DCW [id number]) OP-PT Subjective Patient Comments Patient Comments Pt reports he was out walking outside for about 1/2 mile yesterday. PT-OP-E Functional Tests Start: 05/04/20 15:15 Freq: Status: Active Protocol: Document 05/04/20 15:15 DCW (Rec: 05/04/20 15:55 DCW [id number]) Functional Tests 6 Minute Walk Test Distance 870' Device Used none Comments 2.42 ft/sec Timed Up and Go (TUG) Score 10.82 seconds Comments 3-trial average (11.15, 11.05, 10.26) TUG Impairment Rating 1 to <20% Impaired (Score 11) PT-OP-G Mobility & Gait Start: 09/17/19 18:00 Freq: Status: Active Protocol: Document 05/04/20 15:15 DCW (Rec: 05/04/20 15:55 DCW [id number]) OP Mobility Evaluation Bed Mobility Rolling Independent Supine to and from Sit Independent Transfers Sit to Stand SBA Bed to Chair Transfers SBA OP Gait Assessment Gait Gait Assistance Required: Contact Guard Assist Distance (Feet) 870 Assistive Devices Assistive Device None Gait Deviations General Gait Pattern Antalgic,Ataxic,Decreased Stride Length,Decreased Feet Clearance,Flexed Trunk,Lateral Trunk Lean Factors Limiting Gait Function Factors Limiting Gait Function Abnormal Tonal Influences, Decreased Activity Tolerance, Decreased Sensation,Decreased Strength,Incoordination,Poor Balance,Poor Safety Awareness Comments Gait Comments Improved foot clearance, no instances of scissoring gait, better ability to visually scan for path finding and obstacle avoidance. Stair Climbing Evaluation Evaluation Level of Assist On Stairs Contact Guard Assistance Devices Stair Climbing Assistive Devices Right Railing Technique/Endurance Stair Climbing Direction Ascend and Descend Stair Climbing Technique Step Over Step,Step to Step Number of Steps Climbed 4 Stair Climbing Set # Repetitions (reps) 6 Comments Stair Climbing Comments Step-over ascending, step-to descending. Occasional scissoring with left during descent. PT-OP-H Neuro Start: 09/17/19 18:00 Freq: Status: Active Protocol: Document 05/04/20 15:15 DCW (Rec: 05/04/20 15:55 DCW [id number]) Sensation Evaluation Gross Sensation Gross Sensation Left UE Impaired,Left LE Impaired Sensation Description Paresthesia,Numbness,Pain Location Details Left Leg Light Touch Impaired Sharp/Dull Impaired Deep Pressure Intact/Normal Proprioception (Position) Impaired Kinesthesia (Movement) Impaired Deep Tendon Reflex & Clonus Assessment Deep Tendon Reflex Left Achilles Deep Tendon Reflex 3+ Normal But Brisk Left Patellar Deep Tendon Reflex 3+ Normal But Brisk Ankle Clonus Left Clonus Assessment Sustained Muscle Tone Tone Assessment Left Lower Extremity Flexor Tone Description Moderate Hypotonicity PT-OP-M Strength Start: 09/17/19 18:00 Freq: Status: Active Protocol: Document 05/04/20 15:15 DCW (Rec: 05/04/20 15:55 DCW [id number]) Hip Strength Hip Manual Muscle Testing Left Flexion (L2) 3 Fair Extension (S1) 3- Fair- Abduction 3 Fair Adduction 3+ Fair+ External Rotation 3+ Fair+ Internal Rotation 3+ Fair+ Reason Not Measured Muscle Tone Knee Strength Knee Manual Muscle Testing Left Flexion (S2) 4- Good- Extension (L3) 4 Good Reason Not Measured Muscle Tone,Pain Ankle/Foot Strength Ankle and Foot Manual Muscle Testing Left Dorsiflexion (L4) 4 Good Plantarflexion (S1) 3+ Fair+ Inversion 3+ Fair+ Eversion (S1) 3+ Fair+ PT-OP-Q Treatments Start: 09/17/19 18:00 Freq: Status: Active Protocol: Document 06/14/20 14:30 DCW (Rec: 06/14/20 15:16 DCW [id number]) Gym Equipment Shuttle Balance Red Details Wide [email or web address] Comments Min Ax1 Therapeutic Exercises Sitting Exercises Seated Marching Sitting Exercise Name Seated Marching Side bilateral Resistance 10# Equipment Used ankle weights Reps/Minutes 10 bilat Comments cues for slow controlled movement LAQ Sitting Exercise Name LAQ Side bilateral Resistance 10# Equipment Used ankle weights Other Exercises Hurdles Other Exercise Name Hurdles Comments Fwd Side-stepping Other Exercise Name Side-stepping at rail - CGA Resistance Yellow Equipment Used T-band Comments B UE use Gait Training Gait Activity No AD Description No AD Device Used None Level of Assistance SBA->CGA Distance/Duration 950' Comments VCs to promote heel-toe gait, extend left knee during stance phase Neuro Re-Education Treatment Balance Activities Standing Balance Details Bend, pick-up, and toss ball in standing, kick over cone PT-OP-R Modalities Start: 09/17/19 18:00 Freq: Status: Active Protocol: Document 10/10/19 13:45 HH (Rec: 10/10/19 16:17 HH [id number]) Hot Pack/Cold Pack Treatment moist heat Location L hip adductors Patient Position Hooklying Treatment Duration (minutes) 10 Patient Tolerance Good PT-OP-S Aquatic Treatment Start: 09/17/19 18:00 Freq: Status: Active Protocol: Document 01/30/20 12:30 LJ (Rec: 01/30/20 14:54 LJ [id number]) Aquatics Treatment Pool Entry/Exit Pool Entry/Exit Method Lift Assistance Minimal Assistance Water Walking Slow motion Water Level Chest Level Walking Equipment wet vest, UE float, #2.5 ankle wt Level of Assistance Standby Assistance,Contact Guard Assistance,Moderate Assistance Comments emphasis on LLE extension stance phase January Water Level Chest Level Walking Equipment wet vest, UE float, #2.5 ankle wt Level of Assistance Standby Assistance,Contact Guard Assistance,Moderate Assistance,Verbal Cues Forward with emphasis on reciprocal gait pattern Water Level Chest Level Level of Assistance Standby Assistance,Contact Guard Assistance,Minimal Assistance,Verbal Cues Comments wetvest, sm float on LUE, #3. 75 ankle wt on LLE start stop walking forward and backward Water Level Chest Level Walking Equipment vest Level of Assistance Contact Guard Assistance, Verbal Cues Comments wetvest, sm float on LUE, #3. 75 ankle wt on LLE Sideways Water Level Chest Level Walking Equipment wet vest, UE float, #2.5 ankle wt Level of Assistance Standby Assistance,Contact Guard Assistance,Minimal Assistance,Verbal Cues Lower Extremity Exercises SL aquats Details HH on wall Body Position Standing Water Level Waist Level Equipment wetvest Reps/Duration 2x10 LLE Comments VC to extend knee knee extensions Details seated in lift chair Equipment Ankle Weight- 5.0# Reps/Duration 20 B Comments seated in lift SLS Details bracing LLE Body Position Standing Water Level Chest Level Equipment vest Reps/Duration 1 min marching at wall Water Level Chest Level Reps/Duration 2 min Comments opposite UE/LE tapping wall squats Body Position Standing Water Level Chest Level Reps/Duration 20x Lower Extremity Stretches adductors Comments seated in chair Gastroc Body Position Sitting Reps/Duration 2 x 45 sec B Comments manual assist hip flexors Details at wall Body Position Standing Water Level Waist Level Reps/Duration 2x45 Comments manually assisted HS Details at wall Body Position Sitting Water Level Waist Level Equipment wet vest Reps/Duration 2x45 Comments sitting in lift chair assisted Upper Extremity Exercises breastroke UE's Body Position Standing Water Level Chest Level Reps/Duration 3 min Comments during walking and deep water hor ab/ad Water Level Chest Level Comments during side walking, CGA Balance step ups Details step ups/down using boxes Body Position Standing Water Level Waist Level Equipment 8 boxes Comments mod verbal cues for coordination Theresa Activities Theresa Activities Bicycle,Cross Country Equipment wet vest, white noodle Duration 7 min Comments Guy and cues for vertical alignmernt. PT-OP-T Assessment and Plan Start: 09/17/19 18:00 Freq: Status: Active Protocol: Document 06/14/20 14:30 DCW (Rec: 06/14/20 15:16 DCW [id number]) Physical Therapy Assessment Impairments Impairments Activity Tolerance,Balance, Coordination,Functional Activities,Functional Mobility ,Gait,Pain,ROM,Sensation, Strength,Tone,Transfers Goals Six Impairment Decreased Static Balance Short Term Goal (STG) Pt to score <9 seconds on TUG STG Duration 06/03/20 Intermediate Goal (LTG) Pt to score 35/56 or better on the Adler Balance LTG Duration 07/04/20 Five Impairment Pt uses R rail and step-over gait pattern ascending stairs Combination Machine Tool Operator Goal (LTG) Pt to ascend/descend stairs independently without use of rail LTG Duration 07/04/20 Four Impairment Pt demonstrates strength impairment throughout left LE Intermediate Goal (LTG) Pt to display MMT >3+/5 through L LE LTG Duration 07/04/20 - Improving Three Impairment Pt SBA for transfers and bed mobility d/t Left Neglect Intermediate Goal (LTG) Pt to demonstrate independent transfers and bed mobility with an ability to address left LE and UE 80% of the time LTG Duration Met Two Impairment Pt ambulates 280' CGA /s an AD Short Term Goal (STG) Pt to ambulate 400' SBA independently STG Duration Met Combination Machine Tool Operator Goal (LTG) Pt to ambulate 800' during 6 MWT Independently without SBA LTG Duration 07/04/20 One Impairment Pt does not have an appropriate home exercise program Short Term Goal (STG) Pt to be independent and compliant with an appropriate HEP STG Duration Met Assessment Summary Assessment Pt tolerated treatment well today, able to complete entirety of cone/ball activity with no rest breaks for the first time, improving activity tolerance. Physical Therapy Plan Frequency and Duration Frequency of Treatment 2x/Week Duration of Treatment 3 months Plan of Care Start Date 05/04/20 Plan of Care End Date 08/04/20 Therapeutic Interventions Therapeutic Interventions Aquatic Therapy,Balance Training,Coordination Training ,Gait Training,Home Exercise Program,Manual Therapy, Neuromuscular Re-education, Patient/Caregiver Education, Self-Care/Home Management, Therapeutic Activities, Therapeutic Exercises Modalities Cold Pack/Ice Massage,Electric Stimulation,Hot Packs, Ultrasound Next Visit Focus/Plan Next Note Type Treatment Note Next Visit Plan Continue to challenge, continue strengthening, balance and gait training with NMR. Continue deep water for cardio training and core stabilization. Focus on bilateral knee extension in shallow water gait training
--- NOTE | 2020-06-16 15:21 | PT.OTN ---
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) Physical Therapy Treatment Note PT-OP-A Visit Information Start: 09/17/19 18:00 Freq: Status: Active Protocol: Document 06/16/20 14:30 DCW (Rec: 06/16/20 15:21 DCW [id number]) Out-Patient Physical Therapy Visit Information Visit Information Visit Type Treatment Note Visit Start Time 14:30 Visit Stop Time 15:15 Total Visit Minutes 45 Visit Number 48 Number of BUNCH TRIMMER MOLD Visits 0 Evaluation Information Evaluation Date 09/17/19 PT-OP-B Current Condition Start: 09/17/19 18:00 Freq: Status: Active Protocol: Document 09/17/19 12:00 DCW (Rec: 09/18/19 10:29 DCW [id number]) Current Condition History of Current Condition Onset Date 04/14/19 Current Complaints Hemiparesis secondary to CVA History of Current Condition Pt is a 69 year old male presenting to skilled outpatient physical therapy with left-side neglect, hemiparesis, loss of independence, and difficulty walking following an intraparenchymal hemorrhage on 04/14/19. Pt was transferred from [facility] to [facility], where a craniotomy was performed on 04/16/19. Pt completed 7 weeks of rehab/ recovery at [facility], and then underwent a second surgery on 06/26/19 to replace the skull fragment. Pt was then at an acute rehab facility 06/30-07/18/19, and since then has been receiving home health physical therapy. Pt presents today with limited left-sided function, left visual and physical neglect, difficulty with transfers, decreased activity tolerance, decreased gait, and many other secondary effects following his CVA. Pt has been working on ambulation with a vale walker with home health, and his states he has walked around 100' a few times, but always with a therapist, as she does not feel comfortable walking with him yet. Pt exclusively gets around at time of evaluation in a manual wheelchair. Pt's transfers have been going fairly well, with his caregivers performing CGA, however pt will occasionally need assistance with placement of his left UE and LE due to neglect. Pt's biggest complaint at the moment is leg pain, his reports they have tried PT, Massage, CBD il, Tylenol, Oxycodine, and Gabapentin, all with minimal benefit. Prior to CVA, pt was fully independent in all activities. Pt and have garegivers 8 hrs a day for assistance. Prior Treatments and Tests Craniotomy 04/16/19, Acute rehab, Skull fragment replacement 06/26/19, home health PT Prior Functional Status Baseline Function- ADL's Independent Baseline Function- Mobility Independent PT-OP-C Subjective Start: 09/17/19 18:00 Freq: Status: Active Protocol: Document 06/16/20 14:30 DCW (Rec: 06/16/20 15:21 DCW [id number]) OP-PT Subjective Patient Comments Patient Comments Pt doing well today, feels like his leg is a little fatigued PT-OP-E Functional Tests Start: 05/04/20 15:15 Freq: Status: Active Protocol: Document 05/04/20 15:15 DCW (Rec: 05/04/20 15:55 DCW [id number]) Functional Tests 6 Minute Walk Test Distance 870' Device Used none Comments 2.42 ft/sec Timed Up and Go (TUG) Score 10.82 seconds Comments 3-trial average (11.15, 11.05, 10.26) TUG Impairment Rating 1 to <20% Impaired (Score 11) PT-OP-G Mobility & Gait Start: 09/17/19 18:00 Freq: Status: Active Protocol: Document 05/04/20 15:15 DCW (Rec: 05/04/20 15:55 DCW [id number]) OP Mobility Evaluation Bed Mobility Rolling Independent Supine to and from Sit Independent Transfers Sit to Stand SBA Bed to Chair Transfers SBA OP Gait Assessment Gait Gait Assistance Required: Contact Guard Assist Distance (Feet) 870 Assistive Devices Assistive Device None Gait Deviations General Gait Pattern Antalgic,Ataxic,Decreased Stride Length,Decreased Feet Clearance,Flexed Trunk,Lateral Trunk Lean Factors Limiting Gait Function Factors Limiting Gait Function Abnormal Tonal Influences, Decreased Activity Tolerance, Decreased Sensation,Decreased Strength,Incoordination,Poor Balance,Poor Safety Awareness Comments Gait Comments Improved foot clearance, no instances of scissoring gait, better ability to visually scan for path finding and obstacle avoidance. Stair Climbing Evaluation Evaluation Level of Assist On Stairs Contact Guard Assistance Devices Stair Climbing Assistive Devices Right Railing Technique/Endurance Stair Climbing Direction Ascend and Descend Stair Climbing Technique Step Over Step,Step to Step Number of Steps Climbed 4 Stair Climbing Set # Repetitions (reps) 6 Comments Stair Climbing Comments Step-over ascending, step-to descending. Occasional scissoring with left during descent. PT-OP-H Neuro Start: 09/17/19 18:00 Freq: Status: Active Protocol: Document 05/04/20 15:15 DCW (Rec: 05/04/20 15:55 DCW [id number]) Sensation Evaluation Gross Sensation Gross Sensation Left UE Impaired,Left LE Impaired Sensation Description Paresthesia,Numbness,Pain Location Details Left Leg Light Touch Impaired Sharp/Dull Impaired Deep Pressure Intact/Normal Proprioception (Position) Impaired Kinesthesia (Movement) Impaired Deep Tendon Reflex & Clonus Assessment Deep Tendon Reflex Left Achilles Deep Tendon Reflex 3+ Normal But Brisk Left Patellar Deep Tendon Reflex 3+ Normal But Brisk Ankle Clonus Left Clonus Assessment Sustained Muscle Tone Tone Assessment Left Lower Extremity Flexor Tone Description Moderate Hypotonicity PT-OP-M Strength Start: 09/17/19 18:00 Freq: Status: Active Protocol: Document 05/04/20 15:15 DCW (Rec: 05/04/20 15:55 DCW [id number]) Hip Strength Hip Manual Muscle Testing Left Flexion (L2) 3 Fair Extension (S1) 3- Fair- Abduction 3 Fair Adduction 3+ Fair+ External Rotation 3+ Fair+ Internal Rotation 3+ Fair+ Reason Not Measured Muscle Tone Knee Strength Knee Manual Muscle Testing Left Flexion (S2) 4- Good- Extension (L3) 4 Good Reason Not Measured Muscle Tone,Pain Ankle/Foot Strength Ankle and Foot Manual Muscle Testing Left Dorsiflexion (L4) 4 Good Plantarflexion (S1) 3+ Fair+ Inversion 3+ Fair+ Eversion (S1) 3+ Fair+ PT-OP-Q Treatments Start: 09/17/19 18:00 Freq: Status: Active Protocol: Document 06/16/20 14:30 DCW (Rec: 06/16/20 15:21 DCW [id number]) Gym Equipment Shuttle Balance Red Details Wide [email or web address] Comments Min Ax1 Therapeutic Exercises Standing Exercises SLS Standing Exercise Name SLS Equipment Used rail Comments CGA Abduction Standing Exercise Name L hip abduction Other Exercises Hurdles Other Exercise Name Hurdles Comments Fwd Gait Training Gait Activity No AD Description No AD Device Used None Level of Assistance SBA->CGA Distance/Duration 950' Comments VCs to promote heel-toe gait, extend left knee during stance phase Neuro Re-Education Treatment Balance Activities Balance Board Details Lateral weight shift Standing Balance Details Bend, pick-up, and toss ball in standing, kick over cone PT-OP-R Modalities Start: 09/17/19 18:00 Freq: Status: Active Protocol: Document 10/10/19 13:45 HH (Rec: 10/10/19 16:17 HH [id number]) Hot Pack/Cold Pack Treatment moist heat Location L hip adductors Patient Position Hooklying Treatment Duration (minutes) 10 Patient Tolerance Good PT-OP-S Aquatic Treatment Start: 09/17/19 18:00 Freq: Status: Active Protocol: Document 01/30/20 12:30 LJ (Rec: 01/30/20 14:54 LJ [id number]) Aquatics Treatment Pool Entry/Exit Pool Entry/Exit Method Lift Assistance Minimal Assistance Water Walking Slow motion Water Level Chest Level Walking Equipment wet vest, UE float, #2.5 ankle wt Level of Assistance Standby Assistance,Contact Guard Assistance,Moderate Assistance Comments emphasis on LLE extension stance phase January Water Level Chest Level Walking Equipment wet vest, UE float, #2.5 ankle wt Level of Assistance Standby Assistance,Contact Guard Assistance,Moderate Assistance,Verbal Cues Forward with emphasis on reciprocal gait pattern Water Level Chest Level Level of Assistance Standby Assistance,Contact Guard Assistance,Minimal Assistance,Verbal Cues Comments wetvest, sm float on LUE, #3. 75 ankle wt on LLE start stop walking forward and backward Water Level Chest Level Walking Equipment vest Level of Assistance Contact Guard Assistance, Verbal Cues Comments wetvest, sm float on LUE, #3. 75 ankle wt on LLE Sideways Water Level Chest Level Walking Equipment wet vest, UE float, #2.5 ankle wt Level of Assistance Standby Assistance,Contact Guard Assistance,Minimal Assistance,Verbal Cues Lower Extremity Exercises SL aquats Details HH on wall Body Position Standing Water Level Waist Level Equipment wetvest Reps/Duration 2x10 LLE Comments VC to extend knee knee extensions Details seated in lift chair Equipment Ankle Weight- 5.0# Reps/Duration 20 B Comments seated in lift SLS Details bracing LLE Body Position Standing Water Level Chest Level Equipment vest Reps/Duration 1 min marching at wall Water Level Chest Level Reps/Duration 2 min Comments opposite UE/LE tapping wall squats Body Position Standing Water Level Chest Level Reps/Duration 20x Lower Extremity Stretches adductors Comments seated in chair Gastroc Body Position Sitting Reps/Duration 2 x 45 sec B Comments manual assist hip flexors Details at wall Body Position Standing Water Level Waist Level Reps/Duration 2x45 Comments manually assisted HS Details at wall Body Position Sitting Water Level Waist Level Equipment wet vest Reps/Duration 2x45 Comments sitting in lift chair assisted Upper Extremity Exercises breastroke UE's Body Position Standing Water Level Chest Level Reps/Duration 3 min Comments during walking and deep water hor ab/ad Water Level Chest Level Comments during side walking, CGA Balance step ups Details step ups/down using boxes Body Position Standing Water Level Waist Level Equipment 8 boxes Comments mod verbal cues for coordination [place] Activities [place] Activities Bicycle,Cross Country Equipment wet vest, white noodle Duration 7 min Comments Guy and cues for vertical alignmernt. PT-OP-T Assessment and Plan Start: 09/17/19 18:00 Freq: Status: Active Protocol: Document 06/16/20 14:30 DCW (Rec: 06/16/20 15:21 DCW [id number]) Physical Therapy Assessment Impairments Impairments Activity Tolerance,Balance, Coordination,Functional Activities,Functional Mobility ,Gait,Pain,ROM,Sensation, Strength,Tone,Transfers Goals Six Impairment Decreased Static Balance Short Term Goal (STG) Pt to score <9 seconds on TUG STG Duration 06/03/20 Hand Alterations Seamstress Goal (LTG) Pt to score 35/56 or better on the [place] Balance LTG Duration 07/04/20 Five Impairment Pt uses R rail and step-over gait pattern ascending stairs Fpc Goal (LTG) Pt to ascend/descend stairs independently without use of rail LTG Duration 07/04/20 Four Impairment Pt demonstrates strength impairment throughout left LE Hand Alterations Seamstress Goal (LTG) Pt to display MMT >3+/5 through L LE LTG Duration 07/04/20 - Improving Three Impairment Pt SBA for transfers and bed mobility d/t Left Neglect Fpc Goal (LTG) Pt to demonstrate independent transfers and bed mobility with an ability to address left LE and UE 80% of the time LTG Duration Met Two Impairment Pt ambulates 280' CGA /s an AD Short Term Goal (STG) Pt to ambulate 400' SBA independently STG Duration Met Fpc Goal (LTG) Pt to ambulate 800' during 6 MWT Independently without SBA LTG Duration 07/04/20 One Impairment Pt does not have an appropriate home exercise program Short Term Goal (STG) Pt to be independent and compliant with an appropriate HEP STG Duration Met Assessment Summary Assessment Pt fatigued by end of session, especially left leg after working on SLS. Physical Therapy Plan Frequency and Duration Frequency of Treatment 2x/Week Duration of Treatment 3 months Plan of Care Start Date 05/04/20 Plan of Care End Date 08/04/20 Therapeutic Interventions Therapeutic Interventions Aquatic Therapy,Balance Training,Coordination Training ,Gait Training,Home Exercise Program,Manual Therapy, Neuromuscular Re-education, Patient/Caregiver Education, Self-Care/Home Management, Therapeutic Activities, Therapeutic Exercises Modalities Cold Pack/Ice Massage,Electric Stimulation,Hot Packs, Ultrasound Next Visit Focus/Plan Next Note Type Treatment Note Next Visit Plan Continue to challenge, continue strengthening, balance and gait training with NMR. Continue deep water for cardio training and core stabilization. Focus on bilateral knee extension in shallow water gait training
--- NOTE | 2020-06-21 17:34 | PT.OTN ---
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) Physical Therapy Treatment Note PT-OP-A Visit Information Start: 09/17/19 18:00 Freq: Status: Active Protocol: Document 06/21/20 16:45 DCW (Rec: 06/21/20 17:33 DCW [id number]) Out-Patient Physical Therapy Visit Information Visit Information Visit Type Treatment Note Visit Start Time 16:45 Visit Stop Time 17:30 Total Visit Minutes 45 Visit Number 49 Number of [employer] H[employer]ORY TE[employer]ER Visits 0 Evaluation Information Evaluation Date 09/17/19 PT-OP-B Current Condition Start: 09/17/19 18:00 Freq: Status: Active Protocol: Document 09/17/19 12:00 DCW (Rec: 09/18/19 10:29 DCW [id number]) Current Condition History of Current Condition Onset Date 04/14/19 Current Complaints Hemiparesis secondary to CVA History of Current Condition Pt is a 69 year old male presenting to skilled outpatient physical therapy with left-side neglect, hemiparesis, loss of independence, and difficulty walking following an intraparenchymal hemorrhage on 04/14/19. Pt was transferred from [facility] to [facility], where a craniotomy was performed on 04/16/19. Pt completed 7 weeks of rehab/ recovery at [facility], and then underwent a second surgery on 06/26/19 to replace the skull fragment. Pt was then at an acute rehab facility 06/30-07/18/19, and since then has been receiving home health physical therapy. Pt presents today with limited left-sided function, left visual and physical neglect, difficulty with transfers, decreased activity tolerance, decreased gait, and many other secondary effects following his CVA. Pt has been working on ambulation with a vale walker with home health, and his states he has walked around 100' a few times, but always with a therapist, as she does not feel comfortable walking with him yet. Pt exclusively gets around at time of evaluation in a manual wheelchair. Pt's transfers have been going fairly well, with his caregivers performing CGA, however pt will occasionally need assistance with placement of his left UE and LE due to neglect. Pt's biggest complaint at the moment is leg pain, his reports they have tried PT, Massage, CBD il, Tylenol, Oxycodine, and Gabapentin, all with minimal benefit. Prior to CVA, pt was fully independent in all activities. Pt and have garegivers 8 hrs a day for assistance. Prior Treatments and Tests Craniotomy 04/16/19, Acute rehab, Skull fragment replacement 06/26/19, home health PT Prior Functional Status Baseline Function- ADL's Independent Baseline Function- Mobility Independent PT-OP-C Subjective Start: 09/17/19 18:00 Freq: Status: Active Protocol: Document 06/21/20 16:45 DCW (Rec: 06/21/20 17:33 DCW [id number]) OP-PT Subjective Patient Comments Patient Comments Pt reports he is doing well today. PT-OP-E Functional Tests Start: 05/04/20 15:15 Freq: Status: Active Protocol: Document 05/04/20 15:15 DCW (Rec: 05/04/20 15:55 DCW [id number]) Functional Tests 6 Minute Walk Test Distance 870' Device Used none Comments 2.42 ft/sec Timed Up and Go (TUG) Score 10.82 seconds Comments 3-trial average (11.15, 11.05, 10.26) TUG Impairment Rating 1 to <20% Impaired (Score 11) PT-OP-G Mobility & Gait Start: 09/17/19 18:00 Freq: Status: Active Protocol: Document 05/04/20 15:15 DCW (Rec: 05/04/20 15:55 DCW [id number]) OP Mobility Evaluation Bed Mobility Rolling Independent Supine to and from Sit Independent Transfers Sit to Stand SBA Bed to Chair Transfers SBA OP Gait Assessment Gait Gait Assistance Required: Contact Guard Assist Distance (Feet) 870 Assistive Devices Assistive Device None Gait Deviations General Gait Pattern Antalgic,Ataxic,Decreased Stride Length,Decreased Feet Clearance,Flexed Trunk,Lateral Trunk Lean Factors Limiting Gait Function Factors Limiting Gait Function Abnormal Tonal Influences, Decreased Activity Tolerance, Decreased Sensation,Decreased Strength,Incoordination,Poor Balance,Poor Safety Awareness Comments Gait Comments Improved foot clearance, no instances of scissoring gait, better ability to visually scan for path finding and obstacle avoidance. Stair Climbing Evaluation Evaluation Level of Assist On Stairs Contact Guard Assistance Devices Stair Climbing Assistive Devices Right Railing Technique/Endurance Stair Climbing Direction Ascend and Descend Stair Climbing Technique Step Over Step,Step to Step Number of Steps Climbed 4 Stair Climbing Set # Repetitions (reps) 6 Comments Stair Climbing Comments Step-over ascending, step-to descending. Occasional scissoring with left during descent. PT-OP-H Neuro Start: 09/17/19 18:00 Freq: Status: Active Protocol: Document 05/04/20 15:15 DCW (Rec: 05/04/20 15:55 DCW [id number]) Sensation Evaluation Gross Sensation Gross Sensation Left UE Impaired,Left LE Impaired Sensation Description Paresthesia,Numbness,Pain Location Details Left Leg Light Touch Impaired Sharp/Dull Impaired Deep Pressure Intact/Normal Proprioception (Position) Impaired Kinesthesia (Movement) Impaired Deep Tendon Reflex & Clonus Assessment Deep Tendon Reflex Left Achilles Deep Tendon Reflex 3+ Normal But Brisk Left Patellar Deep Tendon Reflex 3+ Normal But Brisk Ankle Clonus Left Clonus Assessment Sustained Muscle Tone Tone Assessment Left Lower Extremity Flexor Tone Description Moderate Hypotonicity PT-OP-M Strength Start: 09/17/19 18:00 Freq: Status: Active Protocol: Document 05/04/20 15:15 DCW (Rec: 05/04/20 15:55 DCW [id number]) Hip Strength Hip Manual Muscle Testing Left Flexion (L2) 3 Fair Extension (S1) 3- Fair- Abduction 3 Fair Adduction 3+ Fair+ External Rotation 3+ Fair+ Internal Rotation 3+ Fair+ Reason Not Measured Muscle Tone Knee Strength Knee Manual Muscle Testing Left Flexion (S2) 4- Good- Extension (L3) 4 Good Reason Not Measured Muscle Tone,Pain Ankle/Foot Strength Ankle and Foot Manual Muscle Testing Left Dorsiflexion (L4) 4 Good Plantarflexion (S1) 3+ Fair+ Inversion 3+ Fair+ Eversion (S1) 3+ Fair+ PT-OP-Q Treatments Start: 09/17/19 18:00 Freq: Status: Active Protocol: Document 06/21/20 16:45 DCW (Rec: 06/21/20 17:33 DCW [id number]) Therapeutic Exercises Other Exercises Side-stepping Other Exercise Name Side-stepping at rail - [facility] Resistance Yellow Equipment Used T-band Comments B UE use Gait Training Gait Activity Retro Ambulation Description Retro Amb Device Used none Level of Assistance CGA->Min Ax1 Distance/Duration 30' x2 No AD Description No AD Device Used None Level of Assistance SBA Distance/Duration 1140' Comments VCs to promote heel-toe gait, extend left knee during stance phase Neuro Re-Education Treatment Balance Activities Standing Balance Details Bend, pick-up, and toss ball in standing, kick over cone PT-OP-R Modalities Start: 09/17/19 18:00 Freq: Status: Active Protocol: Document 10/10/19 13:45 HH (Rec: 10/10/19 16:17 HH [id number]) Hot Pack/Cold Pack Treatment moist heat Location L hip adductors Patient Position Hooklying Treatment Duration (minutes) 10 Patient Tolerance Good PT-OP-S Aquatic Treatment Start: 09/17/19 18:00 Freq: Status: Active Protocol: Document 01/30/20 12:30 LJ (Rec: 01/30/20 14:54 LJ [id number]) Aquatics Treatment Pool Entry/Exit Pool Entry/Exit Method Lift Assistance Minimal Assistance Water Walking Slow motion Water Level Chest Level Walking Equipment wet vest, UE float, #2.5 ankle wt Level of Assistance Standby Assistance,Contact Guard Assistance,Moderate Assistance Comments emphasis on LLE extension stance phase January Water Level Chest Level Walking Equipment wet vest, UE float, #2.5 ankle wt Level of Assistance Standby Assistance,Contact Guard Assistance,Moderate Assistance,Verbal Cues Forward with emphasis on reciprocal gait pattern Water Level Chest Level Level of Assistance Standby Assistance,Contact Guard Assistance,Minimal Assistance,Verbal Cues Comments wetvest, sm float on LUE, #3. 75 ankle wt on LLE start stop walking forward and backward Water Level Chest Level Walking Equipment vest Level of Assistance Contact Guard Assistance, Verbal Cues Comments wetvest, sm float on LUE, #3. 75 ankle wt on LLE Sideways Water Level Chest Level Walking Equipment wet vest, UE float, #2.5 ankle wt Level of Assistance Standby Assistance,Contact Guard Assistance,Minimal Assistance,Verbal Cues Lower Extremity Exercises SL aquats Details HH on wall Body Position Standing Water Level Waist Level Equipment wetvest Reps/Duration 2x10 LLE Comments VC to extend knee knee extensions Details seated in lift chair Equipment Ankle Weight- 5.0# Reps/Duration 20 B Comments seated in lift SLS Details bracing LLE Body Position Standing Water Level Chest Level Equipment vest Reps/Duration 1 min marching at wall Water Level Chest Level Reps/Duration 2 min Comments opposite UE/LE tapping wall squats Body Position Standing Water Level Chest Level Reps/Duration 20x Lower Extremity Stretches adductors Comments seated in chair Gastroc Body Position Sitting Reps/Duration 2 x 45 sec B Comments manual assist hip flexors Details at wall Body Position Standing Water Level Waist Level Reps/Duration 2x45 Comments manually assisted HS Details at wall Body Position Sitting Water Level Waist Level Equipment wet vest Reps/Duration 2x45 Comments sitting in lift chair assisted Upper Extremity Exercises breastroke UE's Body Position Standing Water Level Chest Level Reps/Duration 3 min Comments during walking and deep water hor ab/ad Water Level Chest Level Comments during side walking, CGA Balance step ups Details step ups/down using boxes Body Position Standing Water Level Waist Level Equipment 8 boxes Comments mod verbal cues for coordination Wells Activities Wells Activities Bicycle,Cross Country Equipment wet vest, white noodle Duration 7 min Comments Guy and cues for vertical alignmernt. PT-OP-T Assessment and Plan Start: 09/17/19 18:00 Freq: Status: Active Protocol: Document 06/21/20 16:45 DCW (Rec: 06/21/20 17:33 DCW [id number]) Physical Therapy Assessment Impairments Impairments Activity Tolerance,Balance, Coordination,Functional Activities,Functional Mobility ,Gait,Pain,ROM,Sensation, Strength,Tone,Transfers Goals Six Impairment Decreased Static Balance Short Term Goal (STG) Pt to score <9 seconds on TUG STG Duration 06/03/20 Client Technical Professional Goal (LTG) Pt to score 35/56 or better on the Adler Balance LTG Duration 07/04/20 Five Impairment Pt uses R rail and step-over gait pattern ascending stairs Chcf Goal (LTG) Pt to ascend/descend stairs independently without use of rail LTG Duration 07/04/20 Four Impairment Pt demonstrates strength impairment throughout left LE Chcf Goal (LTG) Pt to display MMT >3+/5 through L LE LTG Duration 07/04/20 - Improving Three Impairment Pt SBA for transfers and bed mobility d/t Left Neglect Client Technical Professional Goal (LTG) Pt to demonstrate independent transfers and bed mobility with an ability to address left LE and UE 80% of the time LTG Duration Met Two Impairment Pt ambulates 280' CGA /s an AD Short Term Goal (STG) Pt to ambulate 400' SBA independently STG Duration Met Chcf Goal (LTG) Pt to ambulate 800' during 6 MWT Independently without SBA LTG Duration 07/04/20 One Impairment Pt does not have an appropriate home exercise program Short Term Goal (STG) Pt to be independent and compliant with an appropriate HEP STG Duration Met Assessment Summary Assessment Pt concerned today because he has been experiencing calf pain, so he is afraid he has a blood clot. Assessed by PT. Pt does have some pain with deep pressure, however no different that the past 3-4 months. Pt exhibits no increased temp to the area, no red, flaky skin, no increased edema. Pt tolerated treatment well, continues to fatigue quickly, but is able to ambulate further distances. Physical Therapy Plan Frequency and Duration Frequency of Treatment 2x/Week Duration of Treatment 3 months Plan of Care Start Date 05/04/20 Plan of Care End Date 08/04/20 Therapeutic Interventions Therapeutic Interventions Aquatic Therapy,Balance Training,Coordination Training ,Gait Training,Home Exercise Program,Manual Therapy, Neuromuscular Re-education, Patient/Caregiver Education, Self-Care/Home Management, Therapeutic Activities, Therapeutic Exercises Modalities Cold Pack/Ice Massage,Electric Stimulation,Hot Packs, Ultrasound Next Visit Focus/Plan Next Note Type Treatment Note Next Visit Plan Continue to challenge, continue strengthening, balance and gait training with NMR. Continue deep water for cardio training and core stabilization. Focus on bilateral knee extension in shallow water gait training
--- NOTE | 2020-06-23 16:11 | PT.OTN ---
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) Physical Therapy Treatment Note PT-OP-A Visit Information Start: 09/17/19 18:00 Freq: Status: Active Protocol: Document 06/23/20 14:30 DCW (Rec: 06/23/20 15:18 DCW [id number]) Out-Patient Physical Therapy Visit Information Visit Information Visit Type Treatment Note Visit Start Time 14:30 Visit Stop Time 15:20 Total Visit Minutes 50 Visit Number 50 Number of RN SURGERY Visits 0 Evaluation Information Evaluation Date 09/17/19 PT-OP-B Current Condition Start: 09/17/19 18:00 Freq: Status: Active Protocol: Document 09/17/19 12:00 DCW (Rec: 09/18/19 10:29 DCW [id number]) Current Condition History of Current Condition Onset Date 04/14/19 Current Complaints Hemiparesis secondary to CVA History of Current Condition Pt is a 69 year old male presenting to skilled outpatient physical therapy with left-side neglect, hemiparesis, loss of independence, and difficulty walking following an intraparenchymal hemorrhage on 04/14/19. Pt was transferred from [facility] to [facility], where a craniotomy was performed on 04/16/19. Pt completed 7 weeks of rehab/ recovery at [facility], and then underwent a second surgery on 06/26/19 to replace the skull fragment. Pt was then at an acute rehab facility 06/30-07/18/19, and since then has been receiving home health physical therapy. Pt presents today with limited left-sided function, left visual and physical neglect, difficulty with transfers, decreased activity tolerance, decreased gait, and many other secondary effects following his CVA. Pt has been working on ambulation with a vale walker with home health, and his states he has walked around 100' a few times, but always with a therapist, as she does not feel comfortable walking with him yet. Pt exclusively gets around at time of evaluation in a manual wheelchair. Pt's transfers have been going fairly well, with his caregivers performing CGA, however pt will occasionally need assistance with placement of his left UE and LE due to neglect. Pt's biggest complaint at the moment is leg pain, his reports they have tried PT, Massage, CBD il, Tylenol, Oxycodine, and Gabapentin, all with minimal benefit. Prior to CVA, pt was fully independent in all activities. Pt and have garegivers 8 hrs a day for assistance. Prior Treatments and Tests Craniotomy 04/16/19, Acute rehab, Skull fragment replacement 06/26/19, home health PT Prior Functional Status Baseline Function- ADL's Independent Baseline Function- Mobility Independent PT-OP-C Subjective Start: 09/17/19 18:00 Freq: Status: Active Protocol: Document 06/23/20 14:30 DCW (Rec: 06/23/20 15:18 DCW [id number]) OP-PT Subjective Patient Comments Patient Comments My foot is really bothering me. I don't look forward to therapy anymore because it bothers me so much. I don't want to quit, but I just want the pain to stop. PT-OP-E Functional Tests Start: 05/04/20 15:15 Freq: Status: Active Protocol: Document 05/04/20 15:15 DCW (Rec: 05/04/20 15:55 DCW [id number]) Functional Tests 6 Minute Walk Test Distance 870' Device Used none Comments 2.42 ft/sec Timed Up and Go (TUG) Score 10.82 seconds Comments 3-trial average (11.15, 11.05, 10.26) TUG Impairment Rating 1 to <20% Impaired (Score 11) PT-OP-G Mobility & Gait Start: 09/17/19 18:00 Freq: Status: Active Protocol: Document 05/04/20 15:15 DCW (Rec: 05/04/20 15:55 DCW [id number]) OP Mobility Evaluation Bed Mobility Rolling Independent Supine to and from Sit Independent Transfers Sit to Stand SBA Bed to Chair Transfers SBA OP Gait Assessment Gait Gait Assistance Required: Contact Guard Assist Distance (Feet) 870 Assistive Devices Assistive Device None Gait Deviations General Gait Pattern Antalgic,Ataxic,Decreased Stride Length,Decreased Feet Clearance,Flexed Trunk,Lateral Trunk Lean Factors Limiting Gait Function Factors Limiting Gait Function Abnormal Tonal Influences, Decreased Activity Tolerance, Decreased Sensation,Decreased Strength,Incoordination,Poor Balance,Poor Safety Awareness Comments Gait Comments Improved foot clearance, no instances of scissoring gait, better ability to visually scan for path finding and obstacle avoidance. Stair Climbing Evaluation Evaluation Level of Assist On Stairs Contact Guard Assistance Devices Stair Climbing Assistive Devices Right Railing Technique/Endurance Stair Climbing Direction Ascend and Descend Stair Climbing Technique Step Over Step,Step to Step Number of Steps Climbed 4 Stair Climbing Set # Repetitions (reps) 6 Comments Stair Climbing Comments Step-over ascending, step-to descending. Occasional scissoring with left during descent. PT-OP-H Neuro Start: 09/17/19 18:00 Freq: Status: Active Protocol: Document 05/04/20 15:15 DCW (Rec: 05/04/20 15:55 DCW [id number]) Sensation Evaluation Gross Sensation Gross Sensation Left UE Impaired,Left LE Impaired Sensation Description Paresthesia,Numbness,Pain Location Details Left Leg Light Touch Impaired Sharp/Dull Impaired Deep Pressure Intact/Normal Proprioception (Position) Impaired Kinesthesia (Movement) Impaired Deep Tendon Reflex & Clonus Assessment Deep Tendon Reflex Left Achilles Deep Tendon Reflex 3+ Normal But Brisk Left Patellar Deep Tendon Reflex 3+ Normal But Brisk Ankle Clonus Left Clonus Assessment Sustained Muscle Tone Tone Assessment Left Lower Extremity Flexor Tone Description Moderate Hypotonicity PT-OP-M Strength Start: 09/17/19 18:00 Freq: Status: Active Protocol: Document 05/04/20 15:15 DCW (Rec: 05/04/20 15:55 DCW [id number]) Hip Strength Hip Manual Muscle Testing Left Flexion (L2) 3 Fair Extension (S1) 3- Fair- Abduction 3 Fair Adduction 3+ Fair+ External Rotation 3+ Fair+ Internal Rotation 3+ Fair+ Reason Not Measured Muscle Tone Knee Strength Knee Manual Muscle Testing Left Flexion (S2) 4- Good- Extension (L3) 4 Good Reason Not Measured Muscle Tone,Pain Ankle/Foot Strength Ankle and Foot Manual Muscle Testing Left Dorsiflexion (L4) 4 Good Plantarflexion (S1) 3+ Fair+ Inversion 3+ Fair+ Eversion (S1) 3+ Fair+ PT-OP-Q Treatments Start: 09/17/19 18:00 Freq: Status: Active Protocol: Document 06/23/20 14:30 DCW (Rec: 06/23/20 15:18 DCW [id number]) Therapeutic Exercises Sitting Exercises Plantarflexion Sitting Exercise Name PF Side left Resistance Lv 3 Equipment Used T-band Gait Training Gait Activity No AD Description No AD Device Used None Level of Assistance SBA Distance/Duration 570' Comments VCs to promote heel-toe gait, extend left knee during stance phase Self-Care/Home Management Treatment Education Other Education Edu on anterior tib overuse, increased inflammation, trying to decrease use at rest. PT-OP-R Modalities Start: 09/17/19 18:00 Freq: Status: Active Protocol: Document 06/23/20 14:30 DCW (Rec: 06/23/20 15:18 DCW [id number]) Electric Stimulation Electric Stimulation Interferential Current (IFC) Body Location L ant ankle Duration (Minutes) 15 Patient Position Sitting Combined With Heat/Cold Cold Pack PT-OP-S Aquatic Treatment Start: 09/17/19 18:00 Freq: Status: Active Protocol: Document 01/30/20 12:30 LJ (Rec: 01/30/20 14:54 LJ [id number]) Aquatics Treatment Pool Entry/Exit Pool Entry/Exit Method Lift Assistance Minimal Assistance Water Walking Slow motion Water Level Chest Level Walking Equipment wet vest, UE float, #2.5 ankle wt Level of Assistance Standby Assistance,Contact Guard Assistance,Moderate Assistance Comments emphasis on LLE extension stance phase January Water Level Chest Level Walking Equipment wet vest, UE float, #2.5 ankle wt Level of Assistance Standby Assistance,Contact Guard Assistance,Moderate Assistance,Verbal Cues Forward with emphasis on reciprocal gait pattern Water Level Chest Level Level of Assistance Standby Assistance,Contact Guard Assistance,Minimal Assistance,Verbal Cues Comments wetvest, sm float on LUE, #3. 75 ankle wt on LLE start stop walking forward and backward Water Level Chest Level Walking Equipment vest Level of Assistance Contact Guard Assistance, Verbal Cues Comments wetvest, sm float on LUE, #3. 75 ankle wt on LLE Sideways Water Level Chest Level Walking Equipment wet vest, UE float, #2.5 ankle wt Level of Assistance Standby Assistance,Contact Guard Assistance,Minimal Assistance,Verbal Cues Lower Extremity Exercises SL aquats Details HH on wall Body Position Standing Water Level Waist Level Equipment wetvest Reps/Duration 2x10 LLE Comments VC to extend knee knee extensions Details seated in lift chair Equipment Ankle Weight- 5.0# Reps/Duration 20 B Comments seated in lift SLS Details bracing LLE Body Position Standing Water Level Chest Level Equipment vest Reps/Duration 1 min marching at wall Water Level Chest Level Reps/Duration 2 min Comments opposite UE/LE tapping wall squats Body Position Standing Water Level Chest Level Reps/Duration 20x Lower Extremity Stretches adductors Comments seated in chair Gastroc Body Position Sitting Reps/Duration 2 x 45 sec B Comments manual assist hip flexors Details at wall Body Position Standing Water Level Waist Level Reps/Duration 2x45 Comments manually assisted HS Details at wall Body Position Sitting Water Level Waist Level Equipment wet vest Reps/Duration 2x45 Comments sitting in lift chair assisted Upper Extremity Exercises breastroke UE's Body Position Standing Water Level Chest Level Reps/Duration 3 min Comments during walking and deep water hor ab/ad Water Level Chest Level Comments during side walking, CGA Balance step ups Details step ups/down using boxes Body Position Standing Water Level Waist Level Equipment 8 boxes Comments mod verbal cues for coordination [place] Activities [place] Activities Bicycle,Cross Country Equipment wet vest, white noodle Duration 7 min Comments Guy and cues for vertical alignmernt. PT-OP-T Assessment and Plan Start: 09/17/19 18:00 Freq: Status: Active Protocol: Document 06/23/20 14:30 DCW (Rec: 06/23/20 16:11 DCW [id number]) Physical Therapy Assessment Impairments Impairments Activity Tolerance,Balance, Coordination,Functional Activities,Functional Mobility ,Gait,Pain,ROM,Sensation, Strength,Tone,Transfers Goals Six Impairment Decreased Static Balance Short Term Goal (STG) Pt to score <9 seconds on TUG STG Duration 06/03/20 Detention Goal (LTG) Pt to score 35/56 or better on the [place]ler Balance LTG Duration 07/04/20 Five Impairment Pt uses R rail and step-over gait pattern ascending stairs Detention Goal (LTG) Pt to ascend/descend stairs independently without use of rail LTG Duration 07/04/20 Four Impairment Pt demonstrates strength impairment throughout left LE Fpga Engineer Goal (LTG) Pt to display MMT >3+/5 through L LE LTG Duration 07/04/20 - Improving Three Impairment Pt SBA for transfers and bed mobility d/t Left Neglect Fpga Engineer Goal (LTG) Pt to demonstrate independent transfers and bed mobility with an ability to address left LE and UE 80% of the time LTG Duration Met Two Impairment Pt ambulates 280' CGA /s an AD Short Term Goal (STG) Pt to ambulate 400' SBA independently STG Duration Met Fpga Engineer Goal (LTG) Pt to ambulate 800' during 6 MWT Independently without SBA LTG Duration 07/04/20 One Impairment Pt does not have an appropriate home exercise program Short Term Goal (STG) Pt to be independent and compliant with an appropriate HEP STG Duration Met Assessment Summary Assessment Pt started today's session with an extended discussion on whether or not he sould continue therapy, because his leg has been so sore afterward . Therapist discussed the fact that he constantly has his anterior tib contracted, even if he is unaware of it, and needed to let it rest. Trial of e-stim after therapy session in an attempt to help limit post-therapy pain. Pt agreeable to continuing therapy as long as there is also a focus on not overusing his right leg. Physical Therapy Plan Frequency and Duration Frequency of Treatment 2x/Week Duration of Treatment 3 months Plan of Care Start Date 05/04/20 Plan of Care End Date 08/04/20 Therapeutic Interventions Therapeutic Interventions Aquatic Therapy,Balance Training,Coordination Training ,Gait Training,Home Exercise Program,Manual Therapy, Neuromuscular Re-education, Patient/Caregiver Education, Self-Care/Home Management, Therapeutic Activities, Therapeutic Exercises Modalities Cold Pack/Ice Massage,Electric Stimulation,Hot Packs, Ultrasound Next Visit Focus/Plan Next Note Type Treatment Note Next Visit Plan Continue to challenge, continue strengthening, balance and gait training with NMR. Continue deep water for cardio training and core stabilization. Focus on bilateral knee extension in shallow water gait training
--- NOTE | 2020-06-28 15:15 | PT.OTN ---
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) Physical Therapy Treatment Note PT-OP-A Visit Information Start: 09/17/19 18:00 Freq: Status: Active Protocol: Document 06/28/20 14:30 DCW (Rec: 06/28/20 15:15 DCW [id number]) Out-Patient Physical Therapy Visit Information Visit Information Visit Type Treatment Note Visit Start Time 14:30 Visit Stop Time 15:20 Total Visit Minutes 50 Visit Number 51 Number of HEART SPECIALIST Visits 0 Evaluation Information Evaluation Date 09/17/19 PT-OP-B Current Condition Start: 09/17/19 18:00 Freq: Status: Active Protocol: Document 09/17/19 12:00 DCW (Rec: 09/18/19 10:29 DCW [id number]) Current Condition History of Current Condition Onset Date 04/14/19 Current Complaints Hemiparesis secondary to CVA History of Current Condition Pt is a 69 year old male presenting to skilled outpatient physical therapy with left-side neglect, hemiparesis, loss of independence, and difficulty walking following an intraparenchymal hemorrhage on 04/14/19. Pt was transferred from [facility] to [facility], where a craniotomy was performed on 04/16/19. Pt completed 7 weeks of rehab/ recovery at [facility], and then underwent a second surgery on 06/26/19 to replace the skull fragment. Pt was then at an acute rehab facility 06/30-07/18/19, and since then has been receiving home health physical therapy. Pt presents today with limited left-sided function, left visual and physical neglect, difficulty with transfers, decreased activity tolerance, decreased gait, and many other secondary effects following his CVA. Pt has been working on ambulation with a vale walker with home health, and his states he has walked around 100' a few times, but always with a therapist, as she does not feel comfortable walking with him yet. Pt exclusively gets around at time of evaluation in a manual wheelchair. Pt's transfers have been going fairly well, with his caregivers performing CGA, however pt will occasionally need assistance with placement of his left UE and LE due to neglect. Pt's biggest complaint at the moment is leg pain, his reports they have tried PT, Massage, CBD il, Tylenol, Oxycodine, and Gabapentin, all with minimal benefit. Prior to CVA, pt was fully independent in all activities. Pt and have garegivers 8 hrs a day for assistance. Prior Treatments and Tests Craniotomy 04/16/19, Acute rehab, Skull fragment replacement 06/26/19, home health PT Prior Functional Status Baseline Function- ADL's Independent Baseline Function- Mobility Independent PT-OP-C Subjective Start: 09/17/19 18:00 Freq: Status: Active Protocol: Document 06/28/20 14:30 DCW (Rec: 06/28/20 15:15 DCW [id number]) OP-PT Subjective Patient Comments Patient Comments Pt reports he has been having some calf spasms when attempting to actively stretch his foot in the morning. PT-OP-E Functional Tests Start: 05/04/20 15:15 Freq: Status: Active Protocol: Document 05/04/20 15:15 DCW (Rec: 05/04/20 15:55 DCW [id number]) Functional Tests 6 Minute Walk Test Distance 870' Device Used none Comments 2.42 ft/sec Timed Up and Go (TUG) Score 10.82 seconds Comments 3-trial average (11.15, 11.05, 10.26) TUG Impairment Rating 1 to <20% Impaired (Score 11) PT-OP-G Mobility & Gait Start: 09/17/19 18:00 Freq: Status: Active Protocol: Document 05/04/20 15:15 DCW (Rec: 05/04/20 15:55 DCW [id number]) OP Mobility Evaluation Bed Mobility Rolling Independent Supine to and from Sit Independent Transfers Sit to Stand SBA Bed to Chair Transfers SBA OP Gait Assessment Gait Gait Assistance Required: Contact Guard Assist Distance (Feet) 870 Assistive Devices Assistive Device None Gait Deviations General Gait Pattern Antalgic,Ataxic,Decreased Stride Length,Decreased Feet Clearance,Flexed Trunk,Lateral Trunk Lean Factors Limiting Gait Function Factors Limiting Gait Function Abnormal Tonal Influences, Decreased Activity Tolerance, Decreased Sensation,Decreased Strength,Incoordination,Poor Balance,Poor Safety Awareness Comments Gait Comments Improved foot clearance, no instances of scissoring gait, better ability to visually scan for path finding and obstacle avoidance. Stair Climbing Evaluation Evaluation Level of Assist On Stairs Contact Guard Assistance Devices Stair Climbing Assistive Devices Right Railing Technique/Endurance Stair Climbing Direction Ascend and Descend Stair Climbing Technique Step Over Step,Step to Step Number of Steps Climbed 4 Stair Climbing Set # Repetitions (reps) 6 Comments Stair Climbing Comments Step-over ascending, step-to descending. Occasional scissoring with left during descent. PT-OP-H Neuro Start: 09/17/19 18:00 Freq: Status: Active Protocol: Document 05/04/20 15:15 DCW (Rec: 05/04/20 15:55 DCW [id number]) Sensation Evaluation Gross Sensation Gross Sensation Left UE Impaired,Left LE Impaired Sensation Description Paresthesia,Numbness,Pain Location Details Left Leg Light Touch Impaired Sharp/Dull Impaired Deep Pressure Intact/Normal Proprioception (Position) Impaired Kinesthesia (Movement) Impaired Deep Tendon Reflex & Clonus Assessment Deep Tendon Reflex Left Achilles Deep Tendon Reflex 3+ Normal But Brisk Left Patellar Deep Tendon Reflex 3+ Normal But Brisk Ankle Clonus Left Clonus Assessment Sustained Muscle Tone Tone Assessment Left Lower Extremity Flexor Tone Description Moderate Hypotonicity PT-OP-M Strength Start: 09/17/19 18:00 Freq: Status: Active Protocol: Document 05/04/20 15:15 DCW (Rec: 05/04/20 15:55 DCW [id number]) Hip Strength Hip Manual Muscle Testing Left Flexion (L2) 3 Fair Extension (S1) 3- Fair- Abduction 3 Fair Adduction 3+ Fair+ External Rotation 3+ Fair+ Internal Rotation 3+ Fair+ Reason Not Measured Muscle Tone Knee Strength Knee Manual Muscle Testing Left Flexion (S2) 4- Good- Extension (L3) 4 Good Reason Not Measured Muscle Tone,Pain Ankle/Foot Strength Ankle and Foot Manual Muscle Testing Left Dorsiflexion (L4) 4 Good Plantarflexion (S1) 3+ Fair+ Inversion 3+ Fair+ Eversion (S1) 3+ Fair+ PT-OP-Q Treatments Start: 09/17/19 18:00 Freq: Status: Active Protocol: Document 06/28/20 14:30 DCW (Rec: 06/28/20 15:15 DCW [id number]) Gait Training Gait Activity No AD Description No AD Device Used None Level of Assistance SBA Distance/Duration 950' Comments VCs to promote heel-toe gait, extend left knee during stance phase Neuro Re-Education Treatment Balance Activities Ball Kick Details Ball kick to goal Comments Weight shift, SLS, Coordination Hurdles Details Hurdles Comments Min Ax1 Cone easter egg mchugh Details Pick-up cones without knocking over others PT-OP-R Modalities Start: 09/17/19 18:00 Freq: Status: Active Protocol: Document 06/28/20 14:30 DCW (Rec: 06/28/20 15:15 DCW [id number]) Electric Stimulation Electric Stimulation Interferential Current (IFC) Body Location L ant ankle Duration (Minutes) 15 Patient Position Sitting Combined With Heat/Cold Cold Pack PT-OP-S Aquatic Treatment Start: 09/17/19 18:00 Freq: Status: Active Protocol: Document 01/30/20 12:30 LJ (Rec: 01/30/20 14:54 LJ [id number]) Aquatics Treatment Pool Entry/Exit Pool Entry/Exit Method Lift Assistance Minimal Assistance Water Walking Slow motion Water Level Chest Level Walking Equipment wet vest, UE float, #2.5 ankle wt Level of Assistance Standby Assistance,Contact Guard Assistance,Moderate Assistance Comments emphasis on LLE extension stance phase January Water Level Chest Level Walking Equipment wet vest, UE float, #2.5 ankle wt Level of Assistance Standby Assistance,Contact Guard Assistance,Moderate Assistance,Verbal Cues Forward with emphasis on reciprocal gait pattern Water Level Chest Level Level of Assistance Standby Assistance,Contact Guard Assistance,Minimal Assistance,Verbal Cues Comments wetvest, sm float on LUE, #3. 75 ankle wt on LLE start stop walking forward and backward Water Level Chest Level Walking Equipment vest Level of Assistance Contact Guard Assistance, Verbal Cues Comments wetvest, sm float on LUE, #3. 75 ankle wt on LLE Sideways Water Level Chest Level Walking Equipment wet vest, UE float, #2.5 ankle wt Level of Assistance Standby Assistance,Contact Guard Assistance,Minimal Assistance,Verbal Cues Lower Extremity Exercises SL aquats Details HH on wall Body Position Standing Water Level Waist Level Equipment wetvest Reps/Duration 2x10 LLE Comments VC to extend knee knee extensions Details seated in lift chair Equipment Ankle Weight- 5.0# Reps/Duration 20 B Comments seated in lift SLS Details bracing LLE Body Position Standing Water Level Chest Level Equipment vest Reps/Duration 1 min marching at wall Water Level Chest Level Reps/Duration 2 min Comments opposite UE/LE tapping wall squats Body Position Standing Water Level Chest Level Reps/Duration 20x Lower Extremity Stretches adductors Comments seated in chair Gastroc Body Position Sitting Reps/Duration 2 x 45 sec B Comments manual assist hip flexors Details at wall Body Position Standing Water Level Waist Level Reps/Duration 2x45 Comments manually assisted HS Details at wall Body Position Sitting Water Level Waist Level Equipment wet vest Reps/Duration 2x45 Comments sitting in lift chair assisted Upper Extremity Exercises breastroke UE's Body Position Standing Water Level Chest Level Reps/Duration 3 min Comments during walking and deep water hor ab/ad Water Level Chest Level Comments during side walking, CGA Balance step ups Details step ups/down using boxes Body Position Standing Water Level Waist Level Equipment 8 boxes Comments mod verbal cues for coordination Cardwell Activities Cardwell Activities Bicycle,Cross Country Equipment wet vest, white noodle Duration 7 min Comments Guy and cues for vertical alignmernt. PT-OP-T Assessment and Plan Start: 09/17/19 18:00 Freq: Status: Active Protocol: Document 06/28/20 14:30 DCW (Rec: 06/28/20 15:15 DCW [id number]) Physical Therapy Assessment Impairments Impairments Activity Tolerance,Balance, Coordination,Functional Activities,Functional Mobility ,Gait,Pain,ROM,Sensation, Strength,Tone,Transfers Goals Six Impairment Decreased Static Balance Short Term Goal (STG) Pt to score <9 seconds on TUG STG Duration 06/03/20 Half-Way Goal (LTG) Pt to score 35/56 or better on the Adlre Balance LTG Duration 07/04/20 Five Impairment Pt uses R rail and step-over gait pattern ascending stairs Plumber Supervisor Goal (LTG) Pt to ascend/descend stairs independently without use of rail LTG Duration 07/04/20 Four Impairment Pt demonstrates strength impairment throughout left LE Half-Way Goal (LTG) Pt to display MMT >3+/5 through L LE LTG Duration 07/04/20 - Improving Three Impairment Pt SBA for transfers and bed mobility d/t Left Neglect Plumber Supervisor Goal (LTG) Pt to demonstrate independent transfers and bed mobility with an ability to address left LE and UE 80% of the time LTG Duration Met Two Impairment Pt ambulates 280' CGA /s an AD Short Term Goal (STG) Pt to ambulate 400' SBA independently STG Duration Met Plumber Supervisor Goal (LTG) Pt to ambulate 800' during 6 MWT Independently without SBA LTG Duration 07/04/20 One Impairment Pt does not have an appropriate home exercise program Short Term Goal (STG) Pt to be independent and compliant with an appropriate HEP STG Duration Met Assessment Summary Assessment Pt much more optimistic today, feels that the discussion last week regarding his leg pain has helped a lot, and he felt better after finishing with e-stim and ice. Pt instructed to perform passive stretches in the morning instead of active stretches to decrease LE spasm. Physical Therapy Plan Frequency and Duration Frequency of Treatment 2x/Week Duration of Treatment 3 months Plan of Care Start Date 05/04/20 Plan of Care End Date 08/04/20 Therapeutic Interventions Therapeutic Interventions Aquatic Therapy,Balance Training,Coordination Training ,Gait Training,Home Exercise Program,Manual Therapy, Neuromuscular Re-education, Patient/Caregiver Education, Self-Care/Home Management, Therapeutic Activities, Therapeutic Exercises Modalities Cold Pack/Ice Massage,Electric Stimulation,Hot Packs, Ultrasound Next Visit Focus/Plan Next Note Type Treatment Note Next Visit Plan Continue to challenge, continue strengthening, balance and gait training with NMR. Continue deep water for cardio training and core stabilization. Focus on bilateral knee extension in shallow water gait training
--- NOTE | 2020-06-30 15:17 | PT.OTN ---
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) Physical Therapy Treatment Note PT-OP-A Visit Information Start: 09/17/19 18:00 Freq: Status: Active Protocol: Document 06/30/20 14:30 DCW (Rec: 06/30/20 15:16 DCW [id number]) Out-Patient Physical Therapy Visit Information Visit Information Visit Type Treatment Note Visit Start Time 14:30 Visit Stop Time 15:20 Total Visit Minutes 50 Visit Number 52 Number of INTERFACE ENGINEER Visits 0 Evaluation Information Evaluation Date 09/17/19 PT-OP-B Current Condition Start: 09/17/19 18:00 Freq: Status: Active Protocol: Document 09/17/19 12:00 DCW (Rec: 09/18/19 10:29 DCW [id number]) Current Condition History of Current Condition Onset Date 04/14/19 Current Complaints Hemiparesis secondary to CVA History of Current Condition Pt is a 69 year old male presenting to skilled outpatient physical therapy with left-side neglect, hemiparesis, loss of independence, and difficulty walking following an intraparenchymal hemorrhage on 04/14/19. Pt was transferred from [facility] to [facility], where a craniotomy was performed on 04/16/19. Pt completed 7 weeks of rehab/ recovery at [facility], and then underwent a second surgery on 06/26/19 to replace the skull fragment. Pt was then at an acute rehab facility 06/30-07/18/19, and since then has been receiving home health physical therapy. Pt presents today with limited left-sided function, left visual and physical neglect, difficulty with transfers, decreased activity tolerance, decreased gait, and many other secondary effects following his CVA. Pt has been working on ambulation with a vale walker with home health, and his states he has walked around 100' a few times, but always with a therapist, as she does not feel comfortable walking with him yet. Pt exclusively gets around at time of evaluation in a manual wheelchair. Pt's transfers have been going fairly well, with his caregivers performing CGA, however pt will occasionally need assistance with placement of his left UE and LE due to neglect. Pt's biggest complaint at the moment is leg pain, his reports they have tried PT, Massage, CBD il, Tylenol, Oxycodine, and Gabapentin, all with minimal benefit. Prior to CVA, pt was fully independent in all activities. Pt and have garegivers 8 hrs a day for assistance. Prior Treatments and Tests Craniotomy 04/16/19, Acute rehab, Skull fragment replacement 06/26/19, home health PT Prior Functional Status Baseline Function- ADL's Independent Baseline Function- Mobility Independent PT-OP-C Subjective Start: 09/17/19 18:00 Freq: Status: Active Protocol: Document 06/30/20 14:30 DCW (Rec: 06/30/20 15:16 DCW [id number]) OP-PT Subjective Patient Comments Patient Comments Pt reports his leg has been doing better, he has been stretching his calf out more. PT-OP-E Functional Tests Start: 05/04/20 15:15 Freq: Status: Active Protocol: Document 05/04/20 15:15 DCW (Rec: 05/04/20 15:55 DCW [id number]) Functional Tests 6 Minute Walk Test Distance 870' Device Used none Comments 2.42 ft/sec Timed Up and Go (TUG) Score 10.82 seconds Comments 3-trial average (11.15, 11.05, 10.26) TUG Impairment Rating 1 to <20% Impaired (Score 11) PT-OP-G Mobility & Gait Start: 09/17/19 18:00 Freq: Status: Active Protocol: Document 05/04/20 15:15 DCW (Rec: 05/04/20 15:55 DCW [id number]) OP Mobility Evaluation Bed Mobility Rolling Independent Supine to and from Sit Independent Transfers Sit to Stand SBA Bed to Chair Transfers SBA OP Gait Assessment Gait Gait Assistance Required: Contact Guard Assist Distance (Feet) 870 Assistive Devices Assistive Device None Gait Deviations General Gait Pattern Antalgic,Ataxic,Decreased Stride Length,Decreased Feet Clearance,Flexed Trunk,Lateral Trunk Lean Factors Limiting Gait Function Factors Limiting Gait Function Abnormal Tonal Influences, Decreased Activity Tolerance, Decreased Sensation,Decreased Strength,Incoordination,Poor Balance,Poor Safety Awareness Comments Gait Comments Improved foot clearance, no instances of scissoring gait, better ability to visually scan for path finding and obstacle avoidance. Stair Climbing Evaluation Evaluation Level of Assist On Stairs Contact Guard Assistance Devices Stair Climbing Assistive Devices Right Railing Technique/Endurance Stair Climbing Direction Ascend and Descend Stair Climbing Technique Step Over Step,Step to Step Number of Steps Climbed 4 Stair Climbing Set # Repetitions (reps) 6 Comments Stair Climbing Comments Step-over ascending, step-to descending. Occasional scissoring with left during descent. PT-OP-H Neuro Start: 09/17/19 18:00 Freq: Status: Active Protocol: Document 05/04/20 15:15 DCW (Rec: 05/04/20 15:55 DCW [id number]) Sensation Evaluation Gross Sensation Gross Sensation Left UE Impaired,Left LE Impaired Sensation Description Paresthesia,Numbness,Pain Location Details Left Leg Light Touch Impaired Sharp/Dull Impaired Deep Pressure Intact/Normal Proprioception (Position) Impaired Kinesthesia (Movement) Impaired Deep Tendon Reflex & Clonus Assessment Deep Tendon Reflex Left Achilles Deep Tendon Reflex 3+ Normal But Brisk Left Patellar Deep Tendon Reflex 3+ Normal But Brisk Ankle Clonus Left Clonus Assessment Sustained Muscle Tone Tone Assessment Left Lower Extremity Flexor Tone Description Moderate Hypotonicity PT-OP-M Strength Start: 09/17/19 18:00 Freq: Status: Active Protocol: Document 05/04/20 15:15 DCW (Rec: 05/04/20 15:55 DCW [id number]) Hip Strength Hip Manual Muscle Testing Left Flexion (L2) 3 Fair Extension (S1) 3- Fair- Abduction 3 Fair Adduction 3+ Fair+ External Rotation 3+ Fair+ Internal Rotation 3+ Fair+ Reason Not Measured Muscle Tone Knee Strength Knee Manual Muscle Testing Left Flexion (S2) 4- Good- Extension (L3) 4 Good Reason Not Measured Muscle Tone,Pain Ankle/Foot Strength Ankle and Foot Manual Muscle Testing Left Dorsiflexion (L4) 4 Good Plantarflexion (S1) 3+ Fair+ Inversion 3+ Fair+ Eversion (S1) 3+ Fair+ PT-OP-Q Treatments Start: 09/17/19 18:00 Freq: Status: Active Protocol: Document 06/30/20 14:30 DCW (Rec: 06/30/20 15:16 DCW [id number]) Gym Equipment Shuttle Recovery Unilateral Squats Details Left Resistance 50# Shuttle Recovery Platform Stable Bilateral Squats Resistance 100# Shuttle Recovery Platform Stable Therapeutic Exercises Sitting Exercises Gastroc Stretch Sitting Exercise Name Gastroc Stretch Side bilateral Equipment Used Belt Gait Training Gait Activity Hill Description Up and down ambulance ramp x2 Device Used None Level of Assistance SBA Surface Hill Distance/Duration 920' No AD Description No AD Device Used None Level of Assistance SBA Distance/Duration 340' x1, 400' x1 Comments VCs to promote heel-toe gait, extend left knee during stance phase PT-OP-R Modalities Start: 09/17/19 18:00 Freq: Status: Active Protocol: Document 06/30/20 14:30 DCW (Rec: 06/30/20 15:17 DCW [id number]) Electric Stimulation Electric Stimulation Interferential Current (IFC) Body Location L ant ankle Duration (Minutes) 15 Patient Position Sitting Combined With Heat/Cold Cold Pack PT-OP-S Aquatic Treatment Start: 09/17/19 18:00 Freq: Status: Active Protocol: Document 01/30/20 12:30 LJ (Rec: 01/30/20 14:54 LJ [id number]) Aquatics Treatment Pool Entry/Exit Pool Entry/Exit Method Lift Assistance Minimal Assistance Water Walking Slow motion Water Level Chest Level Walking Equipment wet vest, UE float, #2.5 ankle wt Level of Assistance Standby Assistance,Contact Guard Assistance,Moderate Assistance Comments emphasis on LLE extension stance phase January Water Level Chest Level Walking Equipment wet vest, UE float, #2.5 ankle wt Level of Assistance Standby Assistance,Contact Guard Assistance,Moderate Assistance,Verbal Cues Forward with emphasis on reciprocal gait pattern Water Level Chest Level Level of Assistance Standby Assistance,Contact Guard Assistance,Minimal Assistance,Verbal Cues Comments wetvest, sm float on LUE, #3. 75 ankle wt on LLE start stop walking forward and backward Water Level Chest Level Walking Equipment vest Level of Assistance Contact Guard Assistance, Verbal Cues Comments wetvest, sm float on LUE, #3. 75 ankle wt on LLE Sideways Water Level Chest Level Walking Equipment wet vest, UE float, #2.5 ankle wt Level of Assistance Standby Assistance,Contact Guard Assistance,Minimal Assistance,Verbal Cues Lower Extremity Exercises SL aquats Details HH on wall Body Position Standing Water Level Waist Level Equipment wetvest Reps/Duration 2x10 LLE Comments VC to extend knee knee extensions Details seated in lift chair Equipment Ankle Weight- 5.0# Reps/Duration 20 B Comments seated in lift SLS Details bracing LLE Body Position Standing Water Level Chest Level Equipment vest Reps/Duration 1 min marching at wall Water Level Chest Level Reps/Duration 2 min Comments opposite UE/LE tapping wall squats Body Position Standing Water Level Chest Level Reps/Duration 20x Lower Extremity Stretches adductors Comments seated in chair Gastroc Body Position Sitting Reps/Duration 2 x 45 sec B Comments manual assist hip flexors Details at wall Body Position Standing Water Level Waist Level Reps/Duration 2x45 Comments manually assisted HS Details at wall Body Position Sitting Water Level Waist Level Equipment wet vest Reps/Duration 2x45 Comments sitting in lift chair assisted Upper Extremity Exercises breastroke UE's Body Position Standing Water Level Chest Level Reps/Duration 3 min Comments during walking and deep water hor ab/ad Water Level Chest Level Comments during side walking, CGA Balance step ups Details step ups/down using boxes Body Position Standing Water Level Waist Level Equipment 8 boxes Comments mod verbal cues for coordination Beecher Activities Beecher Activities Bicycle,Cross Country Equipment wet vest, white noodle Duration 7 min Comments Guy and cues for vertical alignmernt. PT-OP-T Assessment and Plan Start: 09/17/19 18:00 Freq: Status: Active Protocol: Document 06/30/20 14:30 DCW (Rec: 06/30/20 15:16 DCW [id number]) Physical Therapy Assessment Impairments Impairments Activity Tolerance,Balance, Coordination,Functional Activities,Functional Mobility ,Gait,Pain,ROM,Sensation, Strength,Tone,Transfers Goals Six Impairment Decreased Static Balance Short Term Goal (STG) Pt to score <9 seconds on TUG STG Duration 06/03/20 Student Services Vice President Goal (LTG) Pt to score 35/56 or better on the Adler Balance LTG Duration 07/04/20 Five Impairment Pt uses R rail and step-over gait pattern ascending stairs Custodial Goal (LTG) Pt to ascend/descend stairs independently without use of rail LTG Duration 07/04/20 Four Impairment Pt demonstrates strength impairment throughout left LE Custodial Goal (LTG) Pt to display MMT >3+/5 through L LE LTG Duration 07/04/20 - Improving Three Impairment Pt SBA for transfers and bed mobility d/t Left Neglect Student Services Vice President Goal (LTG) Pt to demonstrate independent transfers and bed mobility with an ability to address left LE and UE 80% of the time LTG Duration Met Two Impairment Pt ambulates 280' CGA /s an AD Short Term Goal (STG) Pt to ambulate 400' SBA independently STG Duration Met Student Services Vice President Goal (LTG) Pt to ambulate 800' during 6 MWT Independently without SBA LTG Duration 07/04/20 One Impairment Pt does not have an appropriate home exercise program Short Term Goal (STG) Pt to be independent and compliant with an appropriate HEP STG Duration Met Assessment Summary Assessment Pt did very well with increased gait distance while walking on hill outside. No complaints of leg pain with leg press, reviewed stretching HEP for calf. Physical Therapy Plan Frequency and Duration Frequency of Treatment 2x/Week Duration of Treatment 3 months Plan of Care Start Date 05/04/20 Plan of Care End Date 08/04/20 Therapeutic Interventions Therapeutic Interventions Aquatic Therapy,Balance Training,Coordination Training ,Gait Training,Home Exercise Program,Manual Therapy, Neuromuscular Re-education, Patient/Caregiver Education, Self-Care/Home Management, Therapeutic Activities, Therapeutic Exercises Modalities Cold Pack/Ice Massage,Electric Stimulation,Hot Packs, Ultrasound Next Visit Focus/Plan Next Note Type Treatment Note Next Visit Plan Continue to challenge, continue strengthening, balance and gait training with NMR. Continue deep water for cardio training and core stabilization. Focus on bilateral knee extension in shallow water gait training
--- NOTE | 2020-07-05 15:22 | PT.OTN ---
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) Physical Therapy Treatment Note PT-OP-A Visit Information Start: 09/17/19 18:00 Freq: Status: Active Protocol: Document 07/05/20 14:30 DCW (Rec: 07/05/20 15:22 DCW [id number]) Out-Patient Physical Therapy Visit Information Visit Information Visit Type Treatment Note Visit Start Time 14:30 Visit Stop Time 15:20 Total Visit Minutes 50 Visit Number 53 Number of MOCCASIN SEWER Visits 0 Evaluation Information Evaluation Date 09/17/19 PT-OP-B Current Condition Start: 09/17/19 18:00 Freq: Status: Active Protocol: Document 09/17/19 12:00 DCW (Rec: 09/18/19 10:29 DCW [id number]) Current Condition History of Current Condition Onset Date 04/14/19 Current Complaints Hemiparesis secondary to CVA History of Current Condition Pt is a 69 year old male presenting to skilled outpatient physical therapy with left-side neglect, hemiparesis, loss of independence, and difficulty walking following an intraparenchymal hemorrhage on 04/14/19. Pt was transferred from [facility] to [facility], where a craniotomy was performed on 04/16/19. Pt completed 7 weeks of rehab/ recovery at [facility], and then underwent a second surgery on 06/26/19 to replace the skull fragment. Pt was then at an acute rehab facility 06/30-07/18/19, and since then has been receiving home health physical therapy. Pt presents today with limited left-sided function, left visual and physical neglect, difficulty with transfers, decreased activity tolerance, decreased gait, and many other secondary effects following his CVA. Pt has been working on ambulation with a vale walker with home health, and his states he has walked around 100' a few times, but always with a therapist, as she does not feel comfortable walking with him yet. Pt exclusively gets around at time of evaluation in a manual wheelchair. Pt's transfers have been going fairly well, with his caregivers performing CGA, however pt will occasionally need assistance with placement of his left UE and LE due to neglect. Pt's biggest complaint at the moment is leg pain, his reports they have tried PT, Massage, CBD il, Tylenol, Oxycodine, and Gabapentin, all with minimal benefit. Prior to CVA, pt was fully independent in all activities. Pt and have garegivers 8 hrs a day for assistance. Prior Treatments and Tests Craniotomy 04/16/19, Acute rehab, Skull fragment replacement 06/26/19, home health PT Prior Functional Status Baseline Function- ADL's Independent Baseline Function- Mobility Independent PT-OP-C Subjective Start: 09/17/19 18:00 Freq: Status: Active Protocol: Document 07/05/20 14:30 DCW (Rec: 07/05/20 15:22 DCW [id number]) OP-PT Subjective Patient Comments Patient Comments Pt and interested in purchasing recumbent bike, would like to trial bike here to start with. PT-OP-E Functional Tests Start: 05/04/20 15:15 Freq: Status: Active Protocol: Document 05/04/20 15:15 DCW (Rec: 05/04/20 15:55 DCW [id number]) Functional Tests 6 Minute Walk Test Distance 870' Device Used none Comments 2.42 ft/sec Timed Up and Go (TUG) Score 10.82 seconds Comments 3-trial average (11.15, 11.05, 10.26) TUG Impairment Rating 1 to <20% Impaired (Score 11) PT-OP-G Mobility & Gait Start: 09/17/19 18:00 Freq: Status: Active Protocol: Document 05/04/20 15:15 DCW (Rec: 05/04/20 15:55 DCW [id number]) OP Mobility Evaluation Bed Mobility Rolling Independent Supine to and from Sit Independent Transfers Sit to Stand SBA Bed to Chair Transfers SBA OP Gait Assessment Gait Gait Assistance Required: Contact Guard Assist Distance (Feet) 870 Assistive Devices Assistive Device None Gait Deviations General Gait Pattern Antalgic,Ataxic,Decreased Stride Length,Decreased Feet Clearance,Flexed Trunk,Lateral Trunk Lean Factors Limiting Gait Function Factors Limiting Gait Function Abnormal Tonal Influences, Decreased Activity Tolerance, Decreased Sensation,Decreased Strength,Incoordination,Poor Balance,Poor Safety Awareness Comments Gait Comments Improved foot clearance, no instances of scissoring gait, better ability to visually scan for path finding and obstacle avoidance. Stair Climbing Evaluation Evaluation Level of Assist On Stairs Contact Guard Assistance Devices Stair Climbing Assistive Devices Right Railing Technique/Endurance Stair Climbing Direction Ascend and Descend Stair Climbing Technique Step Over Step,Step to Step Number of Steps Climbed 4 Stair Climbing Set # Repetitions (reps) 6 Comments Stair Climbing Comments Step-over ascending, step-to descending. Occasional scissoring with left during descent. PT-OP-H Neuro Start: 09/17/19 18:00 Freq: Status: Active Protocol: Document 05/04/20 15:15 DCW (Rec: 05/04/20 15:55 DCW [id number]) Sensation Evaluation Gross Sensation Gross Sensation Left UE Impaired,Left LE Impaired Sensation Description Paresthesia,Numbness,Pain Location Details Left Leg Light Touch Impaired Sharp/Dull Impaired Deep Pressure Intact/Normal Proprioception (Position) Impaired Kinesthesia (Movement) Impaired Deep Tendon Reflex & Clonus Assessment Deep Tendon Reflex Left Achilles Deep Tendon Reflex 3+ Normal But Brisk Left Patellar Deep Tendon Reflex 3+ Normal But Brisk Ankle Clonus Left Clonus Assessment Sustained Muscle Tone Tone Assessment Left Lower Extremity Flexor Tone Description Moderate Hypotonicity PT-OP-M Strength Start: 09/17/19 18:00 Freq: Status: Active Protocol: Document 05/04/20 15:15 DCW (Rec: 05/04/20 15:55 DCW [id number]) Hip Strength Hip Manual Muscle Testing Left Flexion (L2) 3 Fair Extension (S1) 3- Fair- Abduction 3 Fair Adduction 3+ Fair+ External Rotation 3+ Fair+ Internal Rotation 3+ Fair+ Reason Not Measured Muscle Tone Knee Strength Knee Manual Muscle Testing Left Flexion (S2) 4- Good- Extension (L3) 4 Good Reason Not Measured Muscle Tone,Pain Ankle/Foot Strength Ankle and Foot Manual Muscle Testing Left Dorsiflexion (L4) 4 Good Plantarflexion (S1) 3+ Fair+ Inversion 3+ Fair+ Eversion (S1) 3+ Fair+ PT-OP-Q Treatments Start: 09/17/19 18:00 Freq: Status: Active Protocol: Document 07/05/20 14:30 DCW (Rec: 07/05/20 15:22 DCW [id number]) Cardio Equipment Recumbent Bicycle Duration (Minutes) 7 Resistance 3 Seat Position 9 Gait Training Gait Activity No AD Description No AD Device Used None Level of Assistance SBA Distance/Duration 400' x1 Comments VCs to promote heel-toe gait, extend left knee during stance phase Neuro Re-Education Treatment Balance Activities Hurdles Details Hurdles Comments Min Ax1 Cone transfers Details Bending down to pick balls up from cone, kick cone over, balltoss to target PT-OP-R Modalities Start: 09/17/19 18:00 Freq: Status: Active Protocol: Document 07/05/20 14:30 DCW (Rec: 07/05/20 15:22 DCW [id number]) Electric Stimulation Electric Stimulation Interferential Current (IFC) Body Location L ant ankle Duration (Minutes) 15 Patient Position Sitting Combined With Heat/Cold Cold Pack PT-OP-S Aquatic Treatment Start: 09/17/19 18:00 Freq: Status: Active Protocol: Document 01/30/20 12:30 LJ (Rec: 01/30/20 14:54 LJ [id number]) Aquatics Treatment Pool Entry/Exit Pool Entry/Exit Method Lift Assistance Minimal Assistance Water Walking Slow motion Water Level Chest Level Walking Equipment wet vest, UE float, #2.5 ankle wt Level of Assistance Standby Assistance,Contact Guard Assistance,Moderate Assistance Comments emphasis on LLE extension stance phase January Water Level Chest Level Walking Equipment wet vest, UE float, #2.5 ankle wt Level of Assistance Standby Assistance,Contact Guard Assistance,Moderate Assistance,Verbal Cues Forward with emphasis on reciprocal gait pattern Water Level Chest Level Level of Assistance Standby Assistance,Contact Guard Assistance,Minimal Assistance,Verbal Cues Comments wetvest, sm float on LUE, #3. 75 ankle wt on LLE start stop walking forward and backward Water Level Chest Level Walking Equipment vest Level of Assistance Contact Guard Assistance, Verbal Cues Comments wetvest, sm float on LUE, #3. 75 ankle wt on LLE Sideways Water Level Chest Level Walking Equipment wet vest, UE float, #2.5 ankle wt Level of Assistance Standby Assistance,Contact Guard Assistance,Minimal Assistance,Verbal Cues Lower Extremity Exercises SL aquats Details HH on wall Body Position Standing Water Level Waist Level Equipment wetvest Reps/Duration 2x10 LLE Comments VC to extend knee knee extensions Details seated in lift chair Equipment Ankle Weight- 5.0# Reps/Duration 20 B Comments seated in lift SLS Details bracing LLE Body Position Standing Water Level Chest Level Equipment vest Reps/Duration 1 min marching at wall Water Level Chest Level Reps/Duration 2 min Comments opposite UE/LE tapping wall squats Body Position Standing Water Level Chest Level Reps/Duration 20x Lower Extremity Stretches adductors Comments seated in chair Gastroc Body Position Sitting Reps/Duration 2 x 45 sec B Comments manual assist hip flexors Details at wall Body Position Standing Water Level Waist Level Reps/Duration 2x45 Comments manually assisted HS Details at wall Body Position Sitting Water Level Waist Level Equipment wet vest Reps/Duration 2x45 Comments sitting in lift chair assisted Upper Extremity Exercises breastroke UE's Body Position Standing Water Level Chest Level Reps/Duration 3 min Comments during walking and deep water hor ab/ad Water Level Chest Level Comments during side walking, CGA Balance step ups Details step ups/down using boxes Body Position Standing Water Level Waist Level Equipment 8 boxes Comments mod verbal cues for coordination Dahlgren Activities Dahlgren Activities Bicycle,Cross Country Equipment wet vest, white noodle Duration 7 min Comments Guy and cues for vertical alignmernt. PT-OP-T Assessment and Plan Start: 09/17/19 18:00 Freq: Status: Active Protocol: Document 07/05/20 14:30 DCW (Rec: 07/05/20 15:22 DCW [id number]) Physical Therapy Assessment Impairments Impairments Activity Tolerance,Balance, Coordination,Functional Activities,Functional Mobility ,Gait,Pain,ROM,Sensation, Strength,Tone,Transfers Goals Six Impairment Decreased Static Balance Short Term Goal (STG) Pt to score <9 seconds on TUG STG Duration 08/05/20 Hair Worker Goal (LTG) Pt to score 35/56 or better on the Adler Balance LTG Duration 09/04/20 Five Impairment Pt uses R rail and step-over gait pattern ascending stairs Hair Worker Goal (LTG) Pt to ascend/descend stairs independently without use of rail LTG Duration 09/04/20 Four Impairment Pt demonstrates strength impairment throughout left LE Alf Goal (LTG) Pt to display MMT >3+/5 through L LE LTG Duration 09/04/20 - Improving Three Impairment Pt SBA for transfers and bed mobility d/t Left Neglect Hair Worker Goal (LTG) Pt to demonstrate independent transfers and bed mobility with an ability to address left LE and UE 80% of the time LTG Duration Met Two Impairment Pt ambulates 280' CGA /s an AD Short Term Goal (STG) Pt to ambulate 400' SBA independently STG Duration Met Hair Worker Goal (LTG) Pt to ambulate 800' during 6 MWT Independently without SBA LTG Duration 09/04/20 One Impairment Pt does not have an appropriate home exercise program Short Term Goal (STG) Pt to be independent and compliant with an appropriate HEP STG Duration Met Assessment Summary Assessment Pt continues to make progress, doing much better with weight shift and stability when walking over hurdles. Pt struggles with muscle fatigue in bilateral quads, especially when bending over to pick balls up after walking. Physical Therapy Plan Frequency and Duration Frequency of Treatment 2x/Week Duration of Treatment 3 months Plan of Care Start Date 05/04/20 Plan of Care End Date 08/04/20 Therapeutic Interventions Therapeutic Interventions Aquatic Therapy,Balance Training,Coordination Training ,Gait Training,Home Exercise Program,Manual Therapy, Neuromuscular Re-education, Patient/Caregiver Education, Self-Care/Home Management, Therapeutic Activities, Therapeutic Exercises Modalities Cold Pack/Ice Massage,Electric Stimulation,Hot Packs, Ultrasound Next Visit Focus/Plan Next Note Type Treatment Note Next Visit Plan Continue to challenge, continue strengthening, balance and gait training with NMR. Continue deep water for cardio training and core stabilization. Focus on bilateral knee extension in shallow water gait training
--- NOTE | 2020-07-07 15:15 | PT.OTN ---
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) Physical Therapy Treatment Note PT-OP-A Visit Information Start: 09/17/19 18:00 Freq: Status: Active Protocol: Document 07/07/20 14:30 DCW (Rec: 07/07/20 15:15 DCW [id number]) Out-Patient Physical Therapy Visit Information Visit Information Visit Type Treatment Note Visit Start Time 14:30 Visit Stop Time 15:25 Total Visit Minutes 55 Visit Number 54 Number 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 Pt was transferred from [facility] to [facility], where a craniotomy was performed on 04/16/19. Pt completed 7 weeks of rehab/ recovery at [facility], and then underwent a second surgery on 06/26/19 to replace the skull fragment. Pt was then at an acute rehab facility 06/30-07/18/19, and since then has been receiving home health physical therapy. Pt presents today with limited left-sided function, left visual and physical neglect, difficulty with transfers, decreased activity tolerance, decreased gait, and many other secondary effects following his CVA. Pt has been working on ambulation with a vale walker with home health, and his states he has walked around 100' a few times, but always with a therapist, as she does not feel comfortable walking with him yet. Pt exclusively gets around at time of evaluation in a manual wheelchair. Pt's transfers have been going fairly well, with his caregivers performing CGA, however pt will occasionally need assistance with placement of his left UE and LE due to neglect. Pt's biggest complaint at the moment is leg pain, his reports they have tried PT, Massage, CBD il, Tylenol, Oxycodine, and Gabapentin, all with minimal benefit. Prior to CVA, pt was fully independent in all activities. Pt and have garegivers 8 hrs a day for assistance. Prior Treatments and Tests Craniotomy 04/16/19, Acute rehab, Skull fragment replacement 06/26/19, home health PT Prior Functional Status Baseline Function- ADL's Independent Baseline Function- Mobility Independent PT-OP-C Subjective Start: 09/17/19 18:00 Freq: Status: Active Protocol: Document 07/07/20 14:30 DCW (Rec: 07/07/20 15:15 DCW [id number]) OP-PT Subjective Patient Comments Patient Comments Pt doing well today, but admits he is tired. PT-OP-E Functional Tests Start: 05/04/20 15:15 Freq: Status: Active Protocol: Document 05/04/20 15:15 DCW (Rec: 05/04/20 15:55 DCW [id number]) Functional Tests 6 Minute Walk Test Distance 870' Device Used none Comments 2.42 ft/sec Timed Up and Go (TUG) Score 10.82 seconds Comments 3-trial average (11.15, 11.05, 10.26) TUG Impairment Rating 1 to <20% Impaired (Score 11) PT-OP-G Mobility & Gait Start: 09/17/19 18:00 Freq: Status: Active Protocol: Document 05/04/20 15:15 DCW (Rec: 05/04/20 15:55 DCW [id number]) OP Mobility Evaluation Bed Mobility Rolling Independent Supine to and from Sit Independent Transfers Sit to Stand SBA Bed to Chair Transfers SBA OP Gait Assessment Gait Gait Assistance Required: Contact Guard Assist Distance (Feet) 870 Assistive Devices Assistive Device None Gait Deviations General Gait Pattern Antalgic,Ataxic,Decreased Stride Length,Decreased Feet Clearance,Flexed Trunk,Lateral Trunk Lean Factors Limiting Gait Function Factors Limiting Gait Function Abnormal Tonal Influences, Decreased Activity Tolerance, Decreased Sensation,Decreased Strength,Incoordination,Poor Balance,Poor Safety Awareness Comments Gait Comments Improved foot clearance, no instances of scissoring gait, better ability to visually scan for path finding and obstacle avoidance. Stair Climbing Evaluation Evaluation Level of Assist On Stairs Contact Guard Assistance Devices Stair Climbing Assistive Devices Right Railing Technique/Endurance Stair Climbing Direction Ascend and Descend Stair Climbing Technique Step Over Step,Step to Step Number of Steps Climbed 4 Stair Climbing Set # Repetitions (reps) 6 Comments Stair Climbing Comments Step-over ascending, step-to descending. Occasional scissoring with left during descent. PT-OP-H Neuro Start: 09/17/19 18:00 Freq: Status: Active Protocol: Document 05/04/20 15:15 DCW (Rec: 05/04/20 15:55 DCW [id number]) Sensation Evaluation Gross Sensation Gross Sensation Left UE Impaired,Left LE Impaired Sensation Description Paresthesia,Numbness,Pain Location Details Left Leg Light Touch Impaired Sharp/Dull Impaired Deep Pressure Intact/Normal Proprioception (Position) Impaired Kinesthesia (Movement) Impaired Deep Tendon Reflex & Clonus Assessment Deep Tendon Reflex Left Achilles Deep Tendon Reflex 3+ Normal But Brisk Left Patellar Deep Tendon Reflex 3+ Normal But Brisk Ankle Clonus Left Clonus Assessment Sustained Muscle Tone Tone Assessment Left Lower Extremity Flexor Tone Description Moderate Hypotonicity PT-OP-M Strength Start: 09/17/19 18:00 Freq: Status: Active Protocol: Document 05/04/20 15:15 DCW (Rec: 05/04/20 15:55 DCW [id number]) Hip Strength Hip Manual Muscle Testing Left Flexion (L2) 3 Fair Extension (S1) 3- Fair- Abduction 3 Fair Adduction 3+ Fair+ External Rotation 3+ Fair+ Internal Rotation 3+ Fair+ Reason Not Measured Muscle Tone Knee Strength Knee Manual Muscle Testing Left Flexion (S2) 4- Good- Extension (L3) 4 Good Reason Not Measured Muscle Tone,Pain Ankle/Foot Strength Ankle and Foot Manual Muscle Testing Left Dorsiflexion (L4) 4 Good Plantarflexion (S1) 3+ Fair+ Inversion 3+ Fair+ Eversion (S1) 3+ Fair+ PT-OP-Q Treatments Start: 09/17/19 18:00 Freq: Status: Active Protocol: Document 07/07/20 14:30 DCW (Rec: 07/07/20 15:15 DCW [id number]) Gym Equipment Shuttle Recovery Unilateral Squats Details Left Resistance 50# Shuttle Recovery Platform Stable Bilateral Squats Resistance 100# Shuttle Recovery Platform Stable Gait Training Gait Activity No AD Description No AD Device Used None Level of Assistance SBA Distance/Duration 950' x1 Comments VCs to promote heel-toe gait, extend left knee during stance phase Neuro Re-Education Treatment Balance Activities Cone transfers Details Bending down to pick balls up from cone, kick cone over, balltoss to target PT-OP-R Modalities Start: 09/17/19 18:00 Freq: Status: Active Protocol: Document 07/07/20 14:30 DCW (Rec: 07/07/20 15:15 DCW [id number]) Electric Stimulation Electric Stimulation Interferential Current (IFC) Body Location L ant ankle Duration (Minutes) 15 Patient Position Sitting Combined With Heat/Cold Cold Pack PT-OP-S Aquatic Treatment Start: 09/17/19 18:00 Freq: Status: Active Protocol: Document 01/30/20 12:30 LJ (Rec: 01/30/20 14:54 LJ [id number]) Aquatics Treatment Pool Entry/Exit Pool Entry/Exit Method Lift Assistance Minimal Assistance Water Walking Slow motion Water Level Chest Level Walking Equipment wet vest, UE float, #2.5 ankle wt Level of Assistance Standby Assistance,Contact Guard Assistance,Moderate Assistance Comments emphasis on LLE extension stance phase January Water Level Chest Level Walking Equipment wet vest, UE float, #2.5 ankle wt Level of Assistance Standby Assistance,Contact Guard Assistance,Moderate Assistance,Verbal Cues Forward with emphasis on reciprocal gait pattern Water Level Chest Level Level of Assistance Standby Assistance,Contact Guard Assistance,Minimal Assistance,Verbal Cues Comments wetvest, sm float on LUE, #3. 75 ankle wt on LLE start stop walking forward and backward Water Level Chest Level Walking Equipment vest Level of Assistance Contact Guard Assistance, Verbal Cues Comments wetvest, sm float on LUE, #3. 75 ankle wt on LLE Sideways Water Level Chest Level Walking Equipment wet vest, UE float, #2.5 ankle wt Level of Assistance Standby Assistance,Contact Guard Assistance,Minimal Assistance,Verbal Cues Lower Extremity Exercises SL aquats Details HH on wall Body Position Standing Water Level Waist Level Equipment wetvest Reps/Duration 2x10 LLE Comments VC to extend knee knee extensions Details seated in lift chair Equipment Ankle Weight- 5.0# Reps/Duration 20 B Comments seated in lift SLS Details bracing LLE Body Position Standing Water Level Chest Level Equipment vest Reps/Duration 1 min marching at wall Water Level Chest Level Reps/Duration 2 min Comments opposite UE/LE tapping wall squats Body Position Standing Water Level Chest Level Reps/Duration 20x Lower Extremity Stretches adductors Comments seated in chair Gastroc Body Position Sitting Reps/Duration 2 x 45 sec B Comments manual assist hip flexors Details at wall Body Position Standing Water Level Waist Level Reps/Duration 2x45 Comments manually assisted HS Details at wall Body Position Sitting Water Level Waist Level Equipment wet vest Reps/Duration 2x45 Comments sitting in lift chair assisted Upper Extremity Exercises breastroke UE's Body Position Standing Water Level Chest Level Reps/Duration 3 min Comments during walking and deep water hor ab/ad Water Level Chest Level Comments during side walking, CGA Balance step ups Details step ups/down using boxes Body Position Standing Water Level Waist Level Equipment 8 boxes Comments mod verbal cues for coordination [place] Activities [place] Activities Bicycle,Cross Country Equipment wet vest, white noodle Duration 7 min Comments Guy and cues for vertical alignmernt. PT-OP-T Assessment and Plan Start: 09/17/19 18:00 Freq: Status: Active Protocol: Document 07/07/20 14:30 DCW (Rec: 07/07/20 15:15 DCW [id number]) Physical Therapy Assessment Impairments Impairments Activity Tolerance,Balance, Coordination,Functional Activities,Functional Mobility ,Gait,Pain,ROM,Sensation, Strength,Tone,Transfers Goals Six Impairment Decreased Static Balance Short Term Goal (STG) Pt to score <9 seconds on TUG STG Duration 08/05/20 Senior Living Goal (LTG) Pt to score 35/56 or better on the [place] Balance LTG Duration 09/04/20 Five Impairment Pt uses R rail and step-over gait pattern ascending stairs Bank Accountant Goal (LTG) Pt to ascend/descend stairs independently without use of rail LTG Duration 09/04/20 Four Impairment Pt demonstrates strength impairment throughout left LE Senior Living Goal (LTG) Pt to display MMT >3+/5 through L LE LTG Duration 09/04/20 - Improving Three Impairment Pt SBA for transfers and bed mobility d/t Left Neglect Bank Accountant Goal (LTG) Pt to demonstrate independent transfers and bed mobility with an ability to address left LE and UE 80% of the time LTG Duration Met Two Impairment Pt ambulates 280' CGA /s an AD Short Term Goal (STG) Pt to ambulate 400' SBA independently STG Duration Met Senior Living Goal (LTG) Pt to ambulate 800' during 6 MWT Independently without SBA LTG Duration 09/04/20 One Impairment Pt does not have an appropriate home exercise program Short Term Goal (STG) Pt to be independent and compliant with an appropriate HEP STG Duration Met Assessment Summary Assessment Pt tolerating more activity recently without complaints of leg and foot pain. Physical Therapy Plan Frequency and Duration Frequency of Treatment 2x/Week Duration of Treatment 3 months Plan of Care Start Date 05/04/20 Plan of Care End Date 08/04/20 Therapeutic Interventions Therapeutic Interventions Aquatic Therapy,Balance Training,Coordination Training ,Gait Training,Home Exercise Program,Manual Therapy, Neuromuscular Re-education, Patient/Caregiver Education, Self-Care/Home Management, Therapeutic Activities, Therapeutic Exercises Modalities Cold Pack/Ice Massage,Electric Stimulation,Hot Packs, Ultrasound Next Visit Focus/Plan Next Note Type Treatment Note Next Visit Plan Continue to challenge, continue strengthening, balance and gait training with NMR. Continue deep water for cardio training and core stabilization. Focus on bilateral knee extension in shallow water gait training
--- NOTE | 2020-07-12 15:15 | PT.OTN ---
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) Physical Therapy Treatment Note PT-OP-A Visit Information Start: 09/17/19 18:00 Freq: Status: Active Protocol: Document 07/12/20 14:30 DCW (Rec: 07/12/20 15:14 DCW [id number]) Out-Patient Physical Therapy Visit Information Visit Information Visit Type Treatment Note Visit Start Time 14:30 Visit Stop Time 15:25 Total Visit Minutes 55 Visit Number 55 Number of TRADE SHOW SPECIALIST Visits 0 Evaluation Information Evaluation Date 09/17/19 PT-OP-B Current Condition Start: 09/17/19 18:00 Freq: Status: Active Protocol: Document 09/17/19 12:00 DCW (Rec: 09/18/19 10:29 DCW [id number]) Current Condition History of Current Condition Onset Date 04/14/19 Current Complaints Hemiparesis secondary to CVA History of Current Condition Pt is a 69 year old male presenting to skilled outpatient physical therapy with left-side neglect, hemiparesis, loss of independence, and difficulty walking following an intraparenchymal hemorrhage on 04/14/19. Pt was transferred from [facility] to [facility], where a craniotomy was performed on 04/16/19. Pt completed 7 weeks of rehab/ recovery at [facility], and then underwent a second surgery on 06/26/19 to replace the skull fragment. Pt was then at an acute rehab facility 06/30-07/18/19, and since then has been receiving home health physical therapy. Pt presents today with limited left-sided function, left visual and physical neglect, difficulty with transfers, decreased activity tolerance, decreased gait, and many other secondary effects following his CVA. Pt has been working on ambulation with a vale walker with home health, and his states he has walked around 100' a few times, but always with a therapist, as she does not feel comfortable walking with him yet. Pt exclusively gets around at time of evaluation in a manual wheelchair. Pt's transfers have been going fairly well, with his caregivers performing CGA, however pt will occasionally need assistance with placement of his left UE and LE due to neglect. Pt's biggest complaint at the moment is leg pain, his reports they have tried PT, Massage, CBD il, Tylenol, Oxycodine, and Gabapentin, all with minimal benefit. Prior to CVA, pt was fully independent in all activities. Pt and have garegivers 8 hrs a day for assistance. Prior Treatments and Tests Craniotomy 04/16/19, Acute rehab, Skull fragment replacement 06/26/19, home health PT Prior Functional Status Baseline Function- ADL's Independent Baseline Function- Mobility Independent PT-OP-C Subjective Start: 09/17/19 18:00 Freq: Status: Active Protocol: Document 07/12/20 14:30 DCW (Rec: 07/12/20 15:15 DCW [id number]) OP-PT Subjective Patient Comments Patient Comments Pt reports that he is doing well today, no new complaints. PT-OP-E Functional Tests Start: 05/04/20 15:15 Freq: Status: Active Protocol: Document 05/04/20 15:15 DCW (Rec: 05/04/20 15:55 DCW [id number]) Functional Tests 6 Minute Walk Test Distance 870' Device Used none Comments 2.42 ft/sec Timed Up and Go (TUG) Score 10.82 seconds Comments 3-trial average (11.15, 11.05, 10.26) TUG Impairment Rating 1 to <20% Impaired (Score 11) PT-OP-G Mobility & Gait Start: 09/17/19 18:00 Freq: Status: Active Protocol: Document 05/04/20 15:15 DCW (Rec: 05/04/20 15:55 DCW [id number]) OP Mobility Evaluation Bed Mobility Rolling Independent Supine to and from Sit Independent Transfers Sit to Stand SBA Bed to Chair Transfers SBA OP Gait Assessment Gait Gait Assistance Required: Contact Guard Assist Distance (Feet) 870 Assistive Devices Assistive Device None Gait Deviations General Gait Pattern Antalgic,Ataxic,Decreased Stride Length,Decreased Feet Clearance,Flexed Trunk,Lateral Trunk Lean Factors Limiting Gait Function Factors Limiting Gait Function Abnormal Tonal Influences, Decreased Activity Tolerance, Decreased Sensation,Decreased Strength,Incoordination,Poor Balance,Poor Safety Awareness Comments Gait Comments Improved foot clearance, no instances of scissoring gait, better ability to visually scan for path finding and obstacle avoidance. Stair Climbing Evaluation Evaluation Level of Assist On Stairs Contact Guard Assistance Devices Stair Climbing Assistive Devices Right Railing Technique/Endurance Stair Climbing Direction Ascend and Descend Stair Climbing Technique Step Over Step,Step to Step Number of Steps Climbed 4 Stair Climbing Set # Repetitions (reps) 6 Comments Stair Climbing Comments Step-over ascending, step-to descending. Occasional scissoring with left during descent. PT-OP-H Neuro Start: 09/17/19 18:00 Freq: Status: Active Protocol: Document 05/04/20 15:15 DCW (Rec: 05/04/20 15:55 DCW [id number]) Sensation Evaluation Gross Sensation Gross Sensation Left UE Impaired,Left LE Impaired Sensation Description Paresthesia,Numbness,Pain Location Details Left Leg Light Touch Impaired Sharp/Dull Impaired Deep Pressure Intact/Normal Proprioception (Position) Impaired Kinesthesia (Movement) Impaired Deep Tendon Reflex & Clonus Assessment Deep Tendon Reflex Left Achilles Deep Tendon Reflex 3+ Normal But Brisk Left Patellar Deep Tendon Reflex 3+ Normal But Brisk Ankle Clonus Left Clonus Assessment Sustained Muscle Tone Tone Assessment Left Lower Extremity Flexor Tone Description Moderate Hypotonicity PT-OP-M Strength Start: 09/17/19 18:00 Freq: Status: Active Protocol: Document 05/04/20 15:15 DCW (Rec: 05/04/20 15:55 DCW [id number]) Hip Strength Hip Manual Muscle Testing Left Flexion (L2) 3 Fair Extension (S1) 3- Fair- Abduction 3 Fair Adduction 3+ Fair+ External Rotation 3+ Fair+ Internal Rotation 3+ Fair+ Reason Not Measured Muscle Tone Knee Strength Knee Manual Muscle Testing Left Flexion (S2) 4- Good- Extension (L3) 4 Good Reason Not Measured Muscle Tone,Pain Ankle/Foot Strength Ankle and Foot Manual Muscle Testing Left Dorsiflexion (L4) 4 Good Plantarflexion (S1) 3+ Fair+ Inversion 3+ Fair+ Eversion (S1) 3+ Fair+ PT-OP-Q Treatments Start: 09/17/19 18:00 Freq: Status: Active Protocol: Document 07/12/20 14:30 DCW (Rec: 07/12/20 15:14 DCW [id number]) Gym Equipment Shuttle Balance Red Details Wide [email or web address] Comments Min Ax1 Gait Training Gait Activity No AD Description No AD Device Used None Level of Assistance SBA Distance/Duration 990' x1 Comments VCs to promote heel-toe gait, extend left knee during stance phase Neuro Re-Education Treatment Balance Activities Foam Details Foam ambulation Hurdles Details Hurdles Comments Min Ax1 Cone transfers Details Bending down to pick balls up from cone, kick cone over, balltoss to target PT-OP-R Modalities Start: 09/17/19 18:00 Freq: Status: Active Protocol: Document 07/12/20 14:30 DCW (Rec: 07/12/20 15:14 DCW [id number]) Electric Stimulation Electric Stimulation Interferential Current (IFC) Body Location L ant ankle Duration (Minutes) 15 Patient Position Sitting Combined With Heat/Cold Cold Pack PT-OP-S Aquatic Treatment Start: 09/17/19 18:00 Freq: Status: Active Protocol: Document 01/30/20 12:30 LJ (Rec: 01/30/20 14:54 LJ [id number]) Aquatics Treatment Pool Entry/Exit Pool Entry/Exit Method Lift Assistance Minimal Assistance Water Walking Slow motion Water Level Chest Level Walking Equipment wet vest, UE float, #2.5 ankle wt Level of Assistance Standby Assistance,Contact Guard Assistance,Moderate Assistance Comments emphasis on LLE extension stance phase January Water Level Chest Level Walking Equipment wet vest, UE float, #2.5 ankle wt Level of Assistance Standby Assistance,Contact Guard Assistance,Moderate Assistance,Verbal Cues Forward with emphasis on reciprocal gait pattern Water Level Chest Level Level of Assistance Standby Assistance,Contact Guard Assistance,Minimal Assistance,Verbal Cues Comments wetvest, sm float on LUE, #3. 75 ankle wt on LLE start stop walking forward and backward Water Level Chest Level Walking Equipment vest Level of Assistance Contact Guard Assistance, Verbal Cues Comments wetvest, sm float on LUE, #3. 75 ankle wt on LLE Sideways Water Level Chest Level Walking Equipment wet vest, UE float, #2.5 ankle wt Level of Assistance Standby Assistance,Contact Guard Assistance,Minimal Assistance,Verbal Cues Lower Extremity Exercises SL aquats Details HH on wall Body Position Standing Water Level Waist Level Equipment wetvest Reps/Duration 2x10 LLE Comments VC to extend knee knee extensions Details seated in lift chair Equipment Ankle Weight- 5.0# Reps/Duration 20 B Comments seated in lift SLS Details bracing LLE Body Position Standing Water Level Chest Level Equipment vest Reps/Duration 1 min marching at wall Water Level Chest Level Reps/Duration 2 min Comments opposite UE/LE tapping wall squats Body Position Standing Water Level Chest Level Reps/Duration 20x Lower Extremity Stretches adductors Comments seated in chair Gastroc Body Position Sitting Reps/Duration 2 x 45 sec B Comments manual assist hip flexors Details at wall Body Position Standing Water Level Waist Level Reps/Duration 2x45 Comments manually assisted HS Details at wall Body Position Sitting Water Level Waist Level Equipment wet vest Reps/Duration 2x45 Comments sitting in lift chair assisted Upper Extremity Exercises breastroke UE's Body Position Standing Water Level Chest Level Reps/Duration 3 min Comments during walking and deep water hor ab/ad Water Level Chest Level Comments during side walking, CGA Balance step ups Details step ups/down using boxes Body Position Standing Water Level Waist Level Equipment 8 boxes Comments mod verbal cues for coordination Dodson Activities Dodson Activities Bicycle,Cross Country Equipment wet vest, white noodle Duration 7 min Comments Guy and cues for vertical alignmernt. PT-OP-T Assessment and Plan Start: 09/17/19 18:00 Freq: Status: Active Protocol: Document 07/12/20 14:30 DCW (Rec: 07/12/20 15:14 DCW [id number]) Physical Therapy Assessment Impairments Impairments Activity Tolerance,Balance, Coordination,Functional Activities,Functional Mobility ,Gait,Pain,ROM,Sensation, Strength,Tone,Transfers Goals Six Impairment Decreased Static Balance Short Term Goal (STG) Pt to score <9 seconds on TUG STG Duration 08/05/20 Delivery Assistant Goal (LTG) Pt to score 35/56 or better on the Adler Balance LTG Duration 09/04/20 Five Impairment Pt uses R rail and step-over gait pattern ascending stairs Delivery Assistant Goal (LTG) Pt to ascend/descend stairs independently without use of rail LTG Duration 09/04/20 Four Impairment Pt demonstrates strength impairment throughout left LE Fdc Goal (LTG) Pt to display MMT >3+/5 through L LE LTG Duration 09/04/20 - Improving Three Impairment Pt SBA for transfers and bed mobility d/t Left Neglect Fdc Goal (LTG) Pt to demonstrate independent transfers and bed mobility with an ability to address left LE and UE 80% of the time LTG Duration Met Two Impairment Pt ambulates 280' CGA /s an AD Short Term Goal (STG) Pt to ambulate 400' SBA independently STG Duration Met Delivery Assistant Goal (LTG) Pt to ambulate 800' during 6 MWT Independently without SBA LTG Duration 09/04/20 One Impairment Pt does not have an appropriate home exercise program Short Term Goal (STG) Pt to be independent and compliant with an appropriate HEP STG Duration Met Assessment Summary Assessment Nearing end of session, pt complained of some mild return of left foot pain, however feels e-stim and ice post- exercise has been helping a lot to control his pain. Physical Therapy Plan Frequency and Duration Frequency of Treatment 2x/Week Duration of Treatment 3 months Plan of Care Start Date 05/04/20 Plan of Care End Date 08/04/20 Therapeutic Interventions Therapeutic Interventions Aquatic Therapy,Balance Training,Coordination Training ,Gait Training,Home Exercise Program,Manual Therapy, Neuromuscular Re-education, Patient/Caregiver Education, Self-Care/Home Management, Therapeutic Activities, Therapeutic Exercises Modalities Cold Pack/Ice Massage,Electric Stimulation,Hot Packs, Ultrasound Next Visit Focus/Plan Next Note Type Treatment Note Next Visit Plan Continue to challenge, continue strengthening, balance and gait training with NMR. Continue deep water for cardio training and core stabilization. Focus on bilateral knee extension in shallow water gait training
--- NOTE | 2020-07-14 15:14 | PT.OTN ---
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) Physical Therapy Treatment Note PT-OP-A Visit Information Start: 09/17/19 18:00 Freq: Status: Active Protocol: Document 07/14/20 14:30 DCW (Rec: 07/14/20 15:13 DCW [id number]) Out-Patient Physical Therapy Visit Information Visit Information Visit Type Treatment Note Visit Start Time 14:30 Visit Stop Time 15:25 Total Visit Minutes 55 Visit Number 56 Number of LEGAL INTERN Visits 0 Evaluation Information Evaluation Date 09/17/19 PT-OP-B Current Condition Start: 09/17/19 18:00 Freq: Status: Active Protocol: Document 09/17/19 12:00 DCW (Rec: 09/18/19 10:29 DCW [id number]) Current Condition History of Current Condition Onset Date 04/14/19 Current Complaints Hemiparesis secondary to CVA History of Current Condition Pt is a 69 year old male presenting to skilled outpatient physical therapy with left-side neglect, hemiparesis, loss of independence, and difficulty walking following an intraparenchymal hemorrhage on 04/14/19. Pt was transferred from [facility] to [facility], where a craniotomy was performed on 04/16/19. Pt completed 7 weeks of rehab/ recovery at [facility], and then underwent a second surgery on 06/26/19 to replace the skull fragment. Pt was then at an acute rehab facility 06/30-07/18/19, and since then has been receiving home health physical therapy. Pt presents today with limited left-sided function, left visual and physical neglect, difficulty with transfers, decreased activity tolerance, decreased gait, and many other secondary effects following his CVA. Pt has been working on ambulation with a vale walker with home health, and his states he has walked around 100' a few times, but always with a therapist, as she does not feel comfortable walking with him yet. Pt exclusively gets around at time of evaluation in a manual wheelchair. Pt's transfers have been going fairly well, with his caregivers performing CGA, however pt will occasionally need assistance with placement of his left UE and LE due to neglect. Pt's biggest complaint at the moment is leg pain, his reports they have tried PT, Massage, CBD il, Tylenol, Oxycodine, and Gabapentin, all with minimal benefit. Prior to CVA, pt was fully independent in all activities. Pt and have garegivers 8 hrs a day for assistance. Prior Treatments and Tests Craniotomy 04/16/19, Acute rehab, Skull fragment replacement 06/26/19, home health PT Prior Functional Status Baseline Function- ADL's Independent Baseline Function- Mobility Independent PT-OP-C Subjective Start: 09/17/19 18:00 Freq: Status: Active Protocol: Document 07/14/20 14:30 DCW (Rec: 07/14/20 15:13 DCW [id number]) OP-PT Subjective Patient Comments Patient Comments Pt complains of increased left shoulder and arm pain over night, really limiting his sleep. PT-OP-E Functional Tests Start: 05/04/20 15:15 Freq: Status: Active Protocol: Document 05/04/20 15:15 DCW (Rec: 05/04/20 15:55 DCW [id number]) Functional Tests 6 Minute Walk Test Distance 870' Device Used none Comments 2.42 ft/sec Timed Up and Go (TUG) Score 10.82 seconds Comments 3-trial average (11.15, 11.05, 10.26) TUG Impairment Rating 1 to <20% Impaired (Score 11) PT-OP-G Mobility & Gait Start: 09/17/19 18:00 Freq: Status: Active Protocol: Document 05/04/20 15:15 DCW (Rec: 05/04/20 15:55 DCW [id number]) OP Mobility Evaluation Bed Mobility Rolling Independent Supine to and from Sit Independent Transfers Sit to Stand SBA Bed to Chair Transfers SBA OP Gait Assessment Gait Gait Assistance Required: Contact Guard Assist Distance (Feet) 870 Assistive Devices Assistive Device None Gait Deviations General Gait Pattern Antalgic,Ataxic,Decreased Stride Length,Decreased Feet Clearance,Flexed Trunk,Lateral Trunk Lean Factors Limiting Gait Function Factors Limiting Gait Function Abnormal Tonal Influences, Decreased Activity Tolerance, Decreased Sensation,Decreased Strength,Incoordination,Poor Balance,Poor Safety Awareness Comments Gait Comments Improved foot clearance, no instances of scissoring gait, better ability to visually scan for path finding and obstacle avoidance. Stair Climbing Evaluation Evaluation Level of Assist On Stairs Contact Guard Assistance Devices Stair Climbing Assistive Devices Right Railing Technique/Endurance Stair Climbing Direction Ascend and Descend Stair Climbing Technique Step Over Step,Step to Step Number of Steps Climbed 4 Stair Climbing Set # Repetitions (reps) 6 Comments Stair Climbing Comments Step-over ascending, step-to descending. Occasional scissoring with left during descent. PT-OP-H Neuro Start: 09/17/19 18:00 Freq: Status: Active Protocol: Document 05/04/20 15:15 DCW (Rec: 05/04/20 15:55 DCW [id number]) Sensation Evaluation Gross Sensation Gross Sensation Left UE Impaired,Left LE Impaired Sensation Description Paresthesia,Numbness,Pain Location Details Left Leg Light Touch Impaired Sharp/Dull Impaired Deep Pressure Intact/Normal Proprioception (Position) Impaired Kinesthesia (Movement) Impaired Deep Tendon Reflex & Clonus Assessment Deep Tendon Reflex Left Achilles Deep Tendon Reflex 3+ Normal But Brisk Left Patellar Deep Tendon Reflex 3+ Normal But Brisk Ankle Clonus Left Clonus Assessment Sustained Muscle Tone Tone Assessment Left Lower Extremity Flexor Tone Description Moderate Hypotonicity PT-OP-M Strength Start: 09/17/19 18:00 Freq: Status: Active Protocol: Document 05/04/20 15:15 DCW (Rec: 05/04/20 15:55 DCW [id number]) Hip Strength Hip Manual Muscle Testing Left Flexion (L2) 3 Fair Extension (S1) 3- Fair- Abduction 3 Fair Adduction 3+ Fair+ External Rotation 3+ Fair+ Internal Rotation 3+ Fair+ Reason Not Measured Muscle Tone Knee Strength Knee Manual Muscle Testing Left Flexion (S2) 4- Good- Extension (L3) 4 Good Reason Not Measured Muscle Tone,Pain Ankle/Foot Strength Ankle and Foot Manual Muscle Testing Left Dorsiflexion (L4) 4 Good Plantarflexion (S1) 3+ Fair+ Inversion 3+ Fair+ Eversion (S1) 3+ Fair+ PT-OP-Q Treatments Start: 09/17/19 18:00 Freq: Status: Active Protocol: Document 07/14/20 14:30 DCW (Rec: 07/14/20 15:13 DCW [id number]) Gym Equipment Shuttle Recovery Unilateral Squats Details Left Resistance 50# Shuttle Recovery Platform Stable Bilateral Squats Resistance 100# Shuttle Recovery Platform Stable Shuttle Balance Red Details Wide [id number] Comments Min Ax1 Gait Training Gait Activity No AD Description No AD Device Used None Level of Assistance SBA Distance/Duration 970' x1 Comments VCs to promote heel-toe gait, extend left knee during stance phase Neuro Re-Education Treatment Balance Activities Ball Kick Details Ball kick to goal Comments Weight shift, SLS, Coordination PT-OP-R Modalities Start: 09/17/19 18:00 Freq: Status: Active Protocol: Document 07/14/20 14:30 DCW (Rec: 07/14/20 15:13 DCW [id number]) Electric Stimulation Electric Stimulation Interferential Current (IFC) Body Location L ant ankle Duration (Minutes) 15 Patient Position Sitting Combined With Heat/Cold Cold Pack PT-OP-S Aquatic Treatment Start: 09/17/19 18:00 Freq: Status: Active Protocol: Document 01/30/20 12:30 LJ (Rec: 01/30/20 14:54 LJ [id number]) Aquatics Treatment Pool Entry/Exit Pool Entry/Exit Method Lift Assistance Minimal Assistance Water Walking Slow motion Water Level Chest Level Walking Equipment wet vest, UE float, #2.5 ankle wt Level of Assistance Standby Assistance,Contact Guard Assistance,Moderate Assistance Comments emphasis on LLE extension stance phase January Water Level Chest Level Walking Equipment wet vest, UE float, #2.5 ankle wt Level of Assistance Standby Assistance,Contact Guard Assistance,Moderate Assistance,Verbal Cues Forward with emphasis on reciprocal gait pattern Water Level Chest Level Level of Assistance Standby Assistance,Contact Guard Assistance,Minimal Assistance,Verbal Cues Comments wetvest, sm float on LUE, #3. 75 ankle wt on LLE start stop walking forward and backward Water Level Chest Level Walking Equipment vest Level of Assistance Contact Guard Assistance, Verbal Cues Comments wetvest, sm float on LUE, #3. 75 ankle wt on LLE Sideways Water Level Chest Level Walking Equipment wet vest, UE float, #2.5 ankle wt Level of Assistance Standby Assistance,Contact Guard Assistance,Minimal Assistance,Verbal Cues Lower Extremity Exercises SL aquats Details HH on wall Body Position Standing Water Level Waist Level Equipment wetvest Reps/Duration 2x10 LLE Comments VC to extend knee knee extensions Details seated in lift chair Equipment Ankle Weight- 5.0# Reps/Duration 20 B Comments seated in lift SLS Details bracing LLE Body Position Standing Water Level Chest Level Equipment vest Reps/Duration 1 min marching at wall Water Level Chest Level Reps/Duration 2 min Comments opposite UE/LE tapping wall squats Body Position Standing Water Level Chest Level Reps/Duration 20x Lower Extremity Stretches adductors Comments seated in chair Gastroc Body Position Sitting Reps/Duration 2 x 45 sec B Comments manual assist hip flexors Details at wall Body Position Standing Water Level Waist Level Reps/Duration 2x45 Comments manually assisted HS Details at wall Body Position Sitting Water Level Waist Level Equipment wet vest Reps/Duration 2x45 Comments sitting in lift chair assisted Upper Extremity Exercises breastroke UE's Body Position Standing Water Level Chest Level Reps/Duration 3 min Comments during walking and deep water hor ab/ad Water Level Chest Level Comments during side walking, CGA Balance step ups Details step ups/down using boxes Body Position Standing Water Level Waist Level Equipment 8 boxes Comments mod verbal cues for coordination [place] Activities [place] Activities Bicycle,Cross Country Equipment wet vest, white noodle Duration 7 min Comments Guy and cues for vertical alignmernt. PT-OP-T Assessment and Plan Start: 09/17/19 18:00 Freq: Status: Active Protocol: Document 07/14/20 14:30 DCW (Rec: 07/14/20 15:13 DCW [id number]) Physical Therapy Assessment Impairments Impairments Activity Tolerance,Balance, Coordination,Functional Activities,Functional Mobility ,Gait,Pain,ROM,Sensation, Strength,Tone,Transfers Goals Six Impairment Decreased Static Balance Short Term Goal (STG) Pt to score <9 seconds on TUG STG Duration 08/05/20 Residential Goal (LTG) Pt to score 35/56 or better on the [place]ler Balance LTG Duration 09/04/20 Five Impairment Pt uses R rail and step-over gait pattern ascending stairs Residential Goal (LTG) Pt to ascend/descend stairs independently without use of rail LTG Duration 09/04/20 Four Impairment Pt demonstrates strength impairment throughout left LE Electronic Pagination System Operator Goal (LTG) Pt to display MMT >3+/5 through L LE LTG Duration 09/04/20 - Improving Three Impairment Pt SBA for transfers and bed mobility d/t Left Neglect Electronic Pagination System Operator Goal (LTG) Pt to demonstrate independent transfers and bed mobility with an ability to address left LE and UE 80% of the time LTG Duration Met Two Impairment Pt ambulates 280' CGA /s an AD Short Term Goal (STG) Pt to ambulate 400' SBA independently STG Duration Met Electronic Pagination System Operator Goal (LTG) Pt to ambulate 800' during 6 MWT Independently without SBA LTG Duration 09/04/20 One Impairment Pt does not have an appropriate home exercise program Short Term Goal (STG) Pt to be independent and compliant with an appropriate HEP STG Duration Met Assessment Summary Assessment Pt did much better today, although had some significant confusion with use of Shuttle Recovery. Physical Therapy Plan Frequency and Duration Frequency of Treatment 2x/Week Duration of Treatment 3 months Plan of Care Start Date 05/04/20 Plan of Care End Date 08/04/20 Therapeutic Interventions Therapeutic Interventions Aquatic Therapy,Balance Training,Coordination Training ,Gait Training,Home Exercise Program,Manual Therapy, Neuromuscular Re-education, Patient/Caregiver Education, Self-Care/Home Management, Therapeutic Activities, Therapeutic Exercises Modalities Cold Pack/Ice Massage,Electric Stimulation,Hot Packs, Ultrasound Next Visit Focus/Plan Next Note Type Treatment Note Next Visit Plan Continue to challenge, continue strengthening, balance and gait training with NMR. Continue deep water for cardio training and core stabilization. Focus on bilateral knee extension in shallow water gait training
--- NOTE | 2020-07-20 12:00 | PT.OTN ---
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) Physical Therapy Treatment Note PT-OP-A Visit Information Start: 09/17/19 18:00 Freq: Status: Active Protocol: Document 07/20/20 11:15 DCW (Rec: 07/20/20 11:59 DCW [id number]) Out-Patient Physical Therapy Visit Information Visit Information Visit Type Treatment Note Visit Start Time 11:15 Visit Stop Time 12:10 Total Visit Minutes 55 Visit Number 57 Number of BULK STATION AGENT Visits 0 Evaluation Information Evaluation Date 09/17/19 PT-OP-B Current Condition Start: 09/17/19 18:00 Freq: Status: Active Protocol: Document 09/17/19 12:00 DCW (Rec: 09/18/19 10:29 DCW [id number]) Current Condition History of Current Condition Onset Date 04/14/19 Current Complaints Hemiparesis secondary to CVA History of Current Condition Pt is a 69 year old male presenting to skilled outpatient physical therapy with left-side neglect, hemiparesis, loss of independence, and difficulty walking following an intraparenchymal hemorrhage on 04/14/19. Pt was transferred from [facility] to [facility], [place], where a craniotomy was performed on 04/16/19. Pt completed 7 weeks of rehab/ recovery at [facility], and then underwent a second surgery on 06/26/19 to replace the skull fragment. Pt was then at an acute rehab facility 06/30-07/18/19, and since then has been receiving home health physical therapy. Pt presents today with limited left-sided function, left visual and physical neglect, difficulty with transfers, decreased activity tolerance, decreased gait, and many other secondary effects following his CVA. Pt has been working on ambulation with a vale walker with home health, and his states he has walked around 100' a few times, but always with a therapist, as she does not feel comfortable walking with him yet. Pt exclusively gets around at time of evaluation in a manual wheelchair. Pt's transfers have been going fairly well, with his caregivers performing CGA, however pt will occasionally need assistance with placement of his left UE and LE due to neglect. Pt's biggest complaint at the moment is leg pain, his reports they have tried PT, Massage, CBD il, Tylenol, Oxycodine, and Gabapentin, all with minimal benefit. Prior to CVA, pt was fully independent in all activities. Pt and have garegivers 8 hrs a day for assistance. Prior Treatments and Tests Craniotomy 04/16/19, Acute rehab, Skull fragment replacement 06/26/19, home health PT Prior Functional Status Baseline Function- ADL's Independent Baseline Function- Mobility Independent PT-OP-C Subjective Start: 09/17/19 18:00 Freq: Status: Active Protocol: Document 07/20/20 11:15 DCW (Rec: 07/20/20 11:59 DCW [id number]) OP-PT Subjective Patient Comments Patient Comments Pt reports overall he's doing well, but his leg is shakey today. PT-OP-E Functional Tests Start: 05/04/20 15:15 Freq: Status: Active Protocol: Document 05/04/20 15:15 DCW (Rec: 05/04/20 15:55 DCW [id number]) Functional Tests 6 Minute Walk Test Distance 870' Device Used none Comments 2.42 ft/sec Timed Up and Go (TUG) Score 10.82 seconds Comments 3-trial average (11.15, 11.05, 10.26) TUG Impairment Rating 1 to <20% Impaired (Score 11) PT-OP-G Mobility & Gait Start: 09/17/19 18:00 Freq: Status: Active Protocol: Document 05/04/20 15:15 DCW (Rec: 05/04/20 15:55 DCW [id number]) OP Mobility Evaluation Bed Mobility Rolling Independent Supine to and from Sit Independent Transfers Sit to Stand SBA Bed to Chair Transfers SBA OP Gait Assessment Gait Gait Assistance Required: Contact Guard Assist Distance (Feet) 870 Assistive Devices Assistive Device None Gait Deviations General Gait Pattern Antalgic,Ataxic,Decreased Stride Length,Decreased Feet Clearance,Flexed Trunk,Lateral Trunk Lean Factors Limiting Gait Function Factors Limiting Gait Function Abnormal Tonal Influences, Decreased Activity Tolerance, Decreased Sensation,Decreased Strength,Incoordination,Poor Balance,Poor Safety Awareness Comments Gait Comments Improved foot clearance, no instances of scissoring gait, better ability to visually scan for path finding and obstacle avoidance. Stair Climbing Evaluation Evaluation Level of Assist On Stairs Contact Guard Assistance Devices Stair Climbing Assistive Devices Right Railing Technique/Endurance Stair Climbing Direction Ascend and Descend Stair Climbing Technique Step Over Step,Step to Step Number of Steps Climbed 4 Stair Climbing Set # Repetitions (reps) 6 Comments Stair Climbing Comments Step-over ascending, step-to descending. Occasional scissoring with left during descent. PT-OP-H Neuro Start: 09/17/19 18:00 Freq: Status: Active Protocol: Document 05/04/20 15:15 DCW (Rec: 05/04/20 15:55 DCW [id number]) Sensation Evaluation Gross Sensation Gross Sensation Left UE Impaired,Left LE Impaired Sensation Description Paresthesia,Numbness,Pain Location Details Left Leg Light Touch Impaired Sharp/Dull Impaired Deep Pressure Intact/Normal Proprioception (Position) Impaired Kinesthesia (Movement) Impaired Deep Tendon Reflex & Clonus Assessment Deep Tendon Reflex Left Achilles Deep Tendon Reflex 3+ Normal But Brisk Left Patellar Deep Tendon Reflex 3+ Normal But Brisk Ankle Clonus Left Clonus Assessment Sustained Muscle Tone Tone Assessment Left Lower Extremity Flexor Tone Description Moderate Hypotonicity PT-OP-M Strength Start: 09/17/19 18:00 Freq: Status: Active Protocol: Document 05/04/20 15:15 DCW (Rec: 05/04/20 15:55 DCW [id number]) Hip Strength Hip Manual Muscle Testing Left Flexion (L2) 3 Fair Extension (S1) 3- Fair- Abduction 3 Fair Adduction 3+ Fair+ External Rotation 3+ Fair+ Internal Rotation 3+ Fair+ Reason Not Measured Muscle Tone Knee Strength Knee Manual Muscle Testing Left Flexion (S2) 4- Good- Extension (L3) 4 Good Reason Not Measured Muscle Tone,Pain Ankle/Foot Strength Ankle and Foot Manual Muscle Testing Left Dorsiflexion (L4) 4 Good Plantarflexion (S1) 3+ Fair+ Inversion 3+ Fair+ Eversion (S1) 3+ Fair+ PT-OP-Q Treatments Start: 09/17/19 18:00 Freq: Status: Active Protocol: Document 07/20/20 11:15 DCW (Rec: 07/20/20 11:59 DCW [id number]) Gym Equipment Shuttle Recovery Unilateral Squats Details Left Resistance 62# Shuttle Recovery Platform Stable Bilateral Squats Resistance 100# Shuttle Recovery Platform Stable Shuttle Balance Red Details Wide [id number] Comments Min Ax1 Therapeutic Exercises Other Exercises Side-stepping Other Exercise Name Side-stepping at rail - CGA Resistance Yellow Equipment Used T-band Comments B UE use Gait Training Gait Activity No AD Description No AD Device Used None Level of Assistance SBA Distance/Duration 950' x1 Comments VCs to promote heel-toe gait, extend left knee during stance phase Steps Description Ascend/Descend Device Used R ascending rail Level of Assistance CGA Surface 6 Distance/Duration 4 steps x6 Comments Step-through PT-OP-R Modalities Start: 09/17/19 18:00 Freq: Status: Active Protocol: Document 07/20/20 11:15 DCW (Rec: 07/20/20 11:59 DCW [id number]) Electric Stimulation Electric Stimulation Interferential Current (IFC) Body Location L ant ankle Duration (Minutes) 15 Patient Position Sitting Combined With Heat/Cold Cold Pack PT-OP-S Aquatic Treatment Start: 09/17/19 18:00 Freq: Status: Active Protocol: Document 01/30/20 12:30 LJ (Rec: 01/30/20 14:54 LJ [id number]) Aquatics Treatment Pool Entry/Exit Pool Entry/Exit Method Lift Assistance Minimal Assistance Water Walking Slow motion Water Level Chest Level Walking Equipment wet vest, UE float, #2.5 ankle wt Level of Assistance Standby Assistance,Contact Guard Assistance,Moderate Assistance Comments emphasis on LLE extension stance phase January Water Level Chest Level Walking Equipment wet vest, UE float, #2.5 ankle wt Level of Assistance Standby Assistance,Contact Guard Assistance,Moderate Assistance,Verbal Cues Forward with emphasis on reciprocal gait pattern Water Level Chest Level Level of Assistance Standby Assistance,Contact Guard Assistance,Minimal Assistance,Verbal Cues Comments wetvest, sm float on LUE, #3. 75 ankle wt on LLE start stop walking forward and backward Water Level Chest Level Walking Equipment vest Level of Assistance Contact Guard Assistance, Verbal Cues Comments wetvest, sm float on LUE, #3. 75 ankle wt on LLE Sideways Water Level Chest Level Walking Equipment wet vest, UE float, #2.5 ankle wt Level of Assistance Standby Assistance,Contact Guard Assistance,Minimal Assistance,Verbal Cues Lower Extremity Exercises SL aquats Details HH on wall Body Position Standing Water Level Waist Level Equipment wetvest Reps/Duration 2x10 LLE Comments VC to extend knee knee extensions Details seated in lift chair Equipment Ankle Weight- 5.0# Reps/Duration 20 B Comments seated in lift SLS Details bracing LLE Body Position Standing Water Level Chest Level Equipment vest Reps/Duration 1 min marching at wall Water Level Chest Level Reps/Duration 2 min Comments opposite UE/LE tapping wall squats Body Position Standing Water Level Chest Level Reps/Duration 20x Lower Extremity Stretches adductors Comments seated in chair Gastroc Body Position Sitting Reps/Duration 2 x 45 sec B Comments manual assist hip flexors Details at wall Body Position Standing Water Level Waist Level Reps/Duration 2x45 Comments manually assisted HS Details at wall Body Position Sitting Water Level Waist Level Equipment wet vest Reps/Duration 2x45 Comments sitting in lift chair assisted Upper Extremity Exercises breastroke UE's Body Position Standing Water Level Chest Level Reps/Duration 3 min Comments during walking and deep water hor ab/ad Water Level Chest Level Comments during side walking, CGA Balance step ups Details step ups/down using boxes Body Position Standing Water Level Waist Level Equipment 8 boxes Comments mod verbal cues for coordination [place] Activities [place] Activities Bicycle,Cross Country Equipment wet vest, white noodle Duration 7 min Comments Guy and cues for vertical alignmernt. PT-OP-T Assessment and Plan Start: 09/17/19 18:00 Freq: Status: Active Protocol: Document 07/20/20 11:15 DCW (Rec: 07/20/20 11:59 DCW [id number]) Physical Therapy Assessment Impairments Impairments Activity Tolerance,Balance, Coordination,Functional Activities,Functional Mobility ,Gait,Pain,ROM,Sensation, Strength,Tone,Transfers Goals Six Impairment Decreased Static Balance Short Term Goal (STG) Pt to score <9 seconds on TUG STG Duration 08/05/20 Longterm Goal (LTG) Pt to score 35/56 or better on the [place]ler Balance LTG Duration 09/04/20 Five Impairment Pt uses R rail and step-over gait pattern ascending stairs Longterm Goal (LTG) Pt to ascend/descend stairs independently without use of rail LTG Duration 09/04/20 Four Impairment Pt demonstrates strength impairment throughout left LE Longterm Goal (LTG) Pt to display MMT >3+/5 through L LE LTG Duration 09/04/20 - Improving Three Impairment Pt SBA for transfers and bed mobility d/t Left Neglect Stopper Maker Goal (LTG) Pt to demonstrate independent transfers and bed mobility with an ability to address left LE and UE 80% of the time LTG Duration Met Two Impairment Pt ambulates 280' CGA /s an AD Short Term Goal (STG) Pt to ambulate 400' SBA independently STG Duration Met Longterm Goal (LTG) Pt to ambulate 800' during 6 MWT Independently without SBA LTG Duration 09/04/20 One Impairment Pt does not have an appropriate home exercise program Short Term Goal (STG) Pt to be independent and compliant with an appropriate HEP STG Duration Met Assessment Summary Assessment Pt had his best day ever on the shuttle balance, seems to be getting return of glutes bilaterally. Physical Therapy Plan Frequency and Duration Frequency of Treatment 2x/Week Duration of Treatment 3 months Plan of Care Start Date 05/04/20 Plan of Care End Date 08/04/20 Therapeutic Interventions Therapeutic Interventions Aquatic Therapy,Balance Training,Coordination Training ,Gait Training,Home Exercise Program,Manual Therapy, Neuromuscular Re-education, Patient/Caregiver Education, Self-Care/Home Management, Therapeutic Activities, Therapeutic Exercises Modalities Cold Pack/Ice Massage,Electric Stimulation,Hot Packs, Ultrasound Next Visit Focus/Plan Next Note Type Treatment Note Next Visit Plan Continue to challenge, continue strengthening, balance and gait training with NMR. Continue deep water for cardio training and core stabilization. Focus on bilateral knee extension in shallow water gait training
--- NOTE | 2020-07-22 12:00 | PT.OTN ---
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) Physical Therapy Treatment Note PT-OP-A Visit Information Start: 09/17/19 18:00 Freq: Status: Active Protocol: Document 07/22/20 11:15 DCW (Rec: 07/22/20 12:00 DCW [id number]) Out-Patient Physical Therapy Visit Information Visit Information Visit Type Treatment Note Visit Start Time 11:15 Visit Stop Time 12:10 Total Visit Minutes 55 Visit Number 57 Number of [employer] Visits 0 Evaluation Information Evaluation Date 09/17/19 PT-OP-B Current Condition Start: 09/17/19 18:00 Freq: Status: Active Protocol: Document 09/17/19 12:00 DCW (Rec: 09/18/19 10:29 DCW [id number]) Current Condition History of Current Condition Onset Date 04/14/19 Current Complaints Hemiparesis secondary to CVA History of Current Condition Pt is a 69 year old male presenting to skilled outpatient physical therapy with left-side neglect, hemiparesis, loss of independence, and difficulty walking following an intraparenchymal hemorrhage on 04/14/19. Pt was transferred from [facility] to [facility], where a craniotomy was performed on 04/16/19. Pt completed 7 weeks of rehab/ recovery at [facility], and then underwent a second surgery on 06/26/19 to replace the skull fragment. Pt was then at an acute rehab facility 06/30-07/18/19, and since then has been receiving home health physical therapy. Pt presents today with limited left-sided function, left visual and physical neglect, difficulty with transfers, decreased activity tolerance, decreased gait, and many other secondary effects following his CVA. Pt has been working on ambulation with a vale walker with home health, and his states he has walked around 100' a few times, but always with a therapist, as she does not feel comfortable walking with him yet. Pt exclusively gets around at time of evaluation in a manual wheelchair. Pt's transfers have been going fairly well, with his caregivers performing CGA, however pt will occasionally need assistance with placement of his left UE and LE due to neglect. Pt's biggest complaint at the moment is leg pain, his reports they have tried PT, Massage, CBD il, Tylenol, Oxycodine, and Gabapentin, all with minimal benefit. Prior to CVA, pt was fully independent in all activities. Pt and have garegivers 8 hrs a day for assistance. Prior Treatments and Tests Craniotomy 04/16/19, Acute rehab, Skull fragment replacement 06/26/19, home health PT Prior Functional Status Baseline Function- ADL's Independent Baseline Function- Mobility Independent PT-OP-C Subjective Start: 09/17/19 18:00 Freq: Status: Active Protocol: Document 07/22/20 11:15 DCW (Rec: 07/22/20 12:00 DCW [id number]) OP-PT Subjective Patient Comments Patient Comments Pt reports he is feeling good today. PT-OP-E Functional Tests Start: 05/04/20 15:15 Freq: Status: Active Protocol: Document 05/04/20 15:15 DCW (Rec: 05/04/20 15:55 DCW [id number]) Functional Tests 6 Minute Walk Test Distance 870' Device Used none Comments 2.42 ft/sec Timed Up and Go (TUG) Score 10.82 seconds Comments 3-trial average (11.15, 11.05, 10.26) TUG Impairment Rating 1 to <20% Impaired (Score 11) PT-OP-G Mobility & Gait Start: 09/17/19 18:00 Freq: Status: Active Protocol: Document 05/04/20 15:15 DCW (Rec: 05/04/20 15:55 DCW [id number]) OP Mobility Evaluation Bed Mobility Rolling Independent Supine to and from Sit Independent Transfers Sit to Stand SBA Bed to Chair Transfers SBA OP Gait Assessment Gait Gait Assistance Required: Contact Guard Assist Distance (Feet) 870 Assistive Devices Assistive Device None Gait Deviations General Gait Pattern Antalgic,Ataxic,Decreased Stride Length,Decreased Feet Clearance,Flexed Trunk,Lateral Trunk Lean Factors Limiting Gait Function Factors Limiting Gait Function Abnormal Tonal Influences, Decreased Activity Tolerance, Decreased Sensation,Decreased Strength,Incoordination,Poor Balance,Poor Safety Awareness Comments Gait Comments Improved foot clearance, no instances of scissoring gait, better ability to visually scan for path finding and obstacle avoidance. Stair Climbing Evaluation Evaluation Level of Assist On Stairs Contact Guard Assistance Devices Stair Climbing Assistive Devices Right Railing Technique/Endurance Stair Climbing Direction Ascend and Descend Stair Climbing Technique Step Over Step,Step to Step Number of Steps Climbed 4 Stair Climbing Set # Repetitions (reps) 6 Comments Stair Climbing Comments Step-over ascending, step-to descending. Occasional scissoring with left during descent. PT-OP-H Neuro Start: 09/17/19 18:00 Freq: Status: Active Protocol: Document 05/04/20 15:15 DCW (Rec: 05/04/20 15:55 DCW [id number]) Sensation Evaluation Gross Sensation Gross Sensation Left UE Impaired,Left LE Impaired Sensation Description Paresthesia,Numbness,Pain Location Details Left Leg Light Touch Impaired Sharp/Dull Impaired Deep Pressure Intact/Normal Proprioception (Position) Impaired Kinesthesia (Movement) Impaired Deep Tendon Reflex & Clonus Assessment Deep Tendon Reflex Left Achilles Deep Tendon Reflex 3+ Normal But Brisk Left Patellar Deep Tendon Reflex 3+ Normal But Brisk Ankle Clonus Left Clonus Assessment Sustained Muscle Tone Tone Assessment Left Lower Extremity Flexor Tone Description Moderate Hypotonicity PT-OP-M Strength Start: 09/17/19 18:00 Freq: Status: Active Protocol: Document 05/04/20 15:15 DCW (Rec: 05/04/20 15:55 DCW [id number]) Hip Strength Hip Manual Muscle Testing Left Flexion (L2) 3 Fair Extension (S1) 3- Fair- Abduction 3 Fair Adduction 3+ Fair+ External Rotation 3+ Fair+ Internal Rotation 3+ Fair+ Reason Not Measured Muscle Tone Knee Strength Knee Manual Muscle Testing Left Flexion (S2) 4- Good- Extension (L3) 4 Good Reason Not Measured Muscle Tone,Pain Ankle/Foot Strength Ankle and Foot Manual Muscle Testing Left Dorsiflexion (L4) 4 Good Plantarflexion (S1) 3+ Fair+ Inversion 3+ Fair+ Eversion (S1) 3+ Fair+ PT-OP-Q Treatments Start: 09/17/19 18:00 Freq: Status: Active Protocol: Document 07/22/20 11:15 DCW (Rec: 07/22/20 12:00 DCW [id number]) Gym Equipment Shuttle Recovery Unilateral Squats Details Left Resistance 62# Shuttle Recovery Platform Stable Bilateral Squats Resistance 100# Shuttle Recovery Platform Stable Therapeutic Exercises Standing Exercises Hip Extension Standing Exercise Name Hip Extension Side bilateral Resistance Yellow Equipment Used T-band Other Exercises Side-stepping Other Exercise Name Side-stepping at rail - CGA Resistance Yellow Equipment Used T-band Comments B UE use Gait Training Gait Activity No AD Description No AD Device Used None Level of Assistance SBA Distance/Duration 990' x1 Comments VCs to promote heel-toe gait, extend left knee during stance phase Neuro Re-Education Treatment Balance Activities Cone transfers Details Bending down to pick balls up from cone, kick cone over, balltoss to target PT-OP-R Modalities Start: 09/17/19 18:00 Freq: Status: Active Protocol: Document 07/22/20 11:15 DCW (Rec: 07/22/20 12:00 DCW [id number]) Electric Stimulation Electric Stimulation Interferential Current (IFC) Body Location L ant ankle Duration (Minutes) 15 Patient Position Sitting Combined With Heat/Cold Cold Pack PT-OP-S Aquatic Treatment Start: 09/17/19 18:00 Freq: Status: Active Protocol: Document 01/30/20 12:30 LJ (Rec: 01/30/20 14:54 LJ [id number]) Aquatics Treatment Pool Entry/Exit Pool Entry/Exit Method Lift Assistance Minimal Assistance Water Walking Slow motion Water Level Chest Level Walking Equipment wet vest, UE float, #2.5 ankle wt Level of Assistance Standby Assistance,Contact Guard Assistance,Moderate Assistance Comments emphasis on LLE extension stance phase January Water Level Chest Level Walking Equipment wet vest, UE float, #2.5 ankle wt Level of Assistance Standby Assistance,Contact Guard Assistance,Moderate Assistance,Verbal Cues Forward with emphasis on reciprocal gait pattern Water Level Chest Level Level of Assistance Standby Assistance,Contact Guard Assistance,Minimal Assistance,Verbal Cues Comments wetvest, sm float on LUE, #3. 75 ankle wt on LLE start stop walking forward and backward Water Level Chest Level Walking Equipment vest Level of Assistance Contact Guard Assistance, Verbal Cues Comments wetvest, sm float on LUE, #3. 75 ankle wt on LLE Sideways Water Level Chest Level Walking Equipment wet vest, UE float, #2.5 ankle wt Level of Assistance Standby Assistance,Contact Guard Assistance,Minimal Assistance,Verbal Cues Lower Extremity Exercises SL aquats Details HH on wall Body Position Standing Water Level Waist Level Equipment wetvest Reps/Duration 2x10 LLE Comments VC to extend knee knee extensions Details seated in lift chair Equipment Ankle Weight- 5.0# Reps/Duration 20 B Comments seated in lift SLS Details bracing LLE Body Position Standing Water Level Chest Level Equipment vest Reps/Duration 1 min marching at wall Water Level Chest Level Reps/Duration 2 min Comments opposite UE/LE tapping wall squats Body Position Standing Water Level Chest Level Reps/Duration 20x Lower Extremity Stretches adductors Comments seated in chair Gastroc Body Position Sitting Reps/Duration 2 x 45 sec B Comments manual assist hip flexors Details at wall Body Position Standing Water Level Waist Level Reps/Duration 2x45 Comments manually assisted HS Details at wall Body Position Sitting Water Level Waist Level Equipment wet vest Reps/Duration 2x45 Comments sitting in lift chair assisted Upper Extremity Exercises breastroke UE's Body Position Standing Water Level Chest Level Reps/Duration 3 min Comments during walking and deep water hor ab/ad Water Level Chest Level Comments during side walking, CGA Balance step ups Details step ups/down using boxes Body Position Standing Water Level Waist Level Equipment 8 boxes Comments mod verbal cues for coordination [place] Activities [place] Activities Bicycle,Cross Country Equipment wet vest, white noodle Duration 7 min Comments Guy and cues for vertical alignmernt. PT-OP-T Assessment and Plan Start: 09/17/19 18:00 Freq: Status: Active Protocol: Document 07/22/20 11:15 DCW (Rec: 07/22/20 12:00 DCW [id number]) Physical Therapy Assessment Impairments Impairments Activity Tolerance,Balance, Coordination,Functional Activities,Functional Mobility ,Gait,Pain,ROM,Sensation, Strength,Tone,Transfers Goals Six Impairment Decreased Static Balance Short Term Goal (STG) Pt to score <9 seconds on TUG STG Duration 08/05/20 Room Service Server Goal (LTG) Pt to score 35/56 or better on the [place]ler Balance LTG Duration 09/04/20 Five Impairment Pt uses R rail and step-over gait pattern ascending stairs Room Service Server Goal (LTG) Pt to ascend/descend stairs independently without use of rail LTG Duration 09/04/20 Four Impairment Pt demonstrates strength impairment throughout left LE Residential Goal (LTG) Pt to display MMT >3+/5 through L LE LTG Duration 09/04/20 - Improving Three Impairment Pt SBA for transfers and bed mobility d/t Left Neglect Residential Goal (LTG) Pt to demonstrate independent transfers and bed mobility with an ability to address left LE and UE 80% of the time LTG Duration Met Two Impairment Pt ambulates 280' CGA /s an AD Short Term Goal (STG) Pt to ambulate 400' SBA independently STG Duration Met Residential Goal (LTG) Pt to ambulate 800' during 6 MWT Independently without SBA LTG Duration 09/04/20 One Impairment Pt does not have an appropriate home exercise program Short Term Goal (STG) Pt to be independent and compliant with an appropriate HEP STG Duration Met Assessment Summary Assessment Continued work on glute strength, pt showing improved stability with left leg. Physical Therapy Plan Frequency and Duration Frequency of Treatment 2x/Week Duration of Treatment 3 months Plan of Care Start Date 05/04/20 Plan of Care End Date 08/04/20 Therapeutic Interventions Therapeutic Interventions Aquatic Therapy,Balance Training,Coordination Training ,Gait Training,Home Exercise Program,Manual Therapy, Neuromuscular Re-education, Patient/Caregiver Education, Self-Care/Home Management, Therapeutic Activities, Therapeutic Exercises Modalities Cold Pack/Ice Massage,Electric Stimulation,Hot Packs, Ultrasound Next Visit Focus/Plan Next Note Type Treatment Note Next Visit Plan Continue to challenge, continue strengthening, balance and gait training with NMR. Continue deep water for cardio training and core stabilization. Focus on bilateral knee extension in shallow water gait training
--- NOTE | 2020-07-28 14:27 | PT.OTN ---
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) Physical Therapy Treatment Note PT-OP-A Visit Information Start: 09/17/19 18:00 Freq: Status: Active Protocol: Document 07/28/20 13:45 DCW (Rec: 07/28/20 14:27 DCW [id number]) Out-Patient Physical Therapy Visit Information Visit Information Visit Type Treatment Note Visit Start Time 13:45 Visit Stop Time 14:30 Total Visit Minutes 45 Visit Number 59 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 Pt was transferred from [facility] to [facility], where a craniotomy was performed on 04/16/19. Pt completed 7 weeks of rehab/ recovery at [facility], and then underwent a second surgery on 06/26/19 to replace the skull fragment. Pt was then at an acute rehab facility 06/30-07/18/19, and since then has been receiving home health physical therapy. Pt presents today with limited left-sided function, left visual and physical neglect, difficulty with transfers, decreased activity tolerance, decreased gait, and many other secondary effects following his CVA. Pt has been working on ambulation with a vale walker with home health, and his states he has walked around 100' a few times, but always with a therapist, as she does not feel comfortable walking with him yet. Pt exclusively gets around at time of evaluation in a manual wheelchair. Pt's transfers have been going fairly well, with his caregivers performing CGA, however pt will occasionally need assistance with placement of his left UE and LE due to neglect. Pt's biggest complaint at the moment is leg pain, his reports they have tried PT, Massage, CBD il, Tylenol, Oxycodine, and Gabapentin, all with minimal benefit. Prior to CVA, pt was fully independent in all activities. Pt and have garegivers 8 hrs a day for assistance. Prior Treatments and Tests Craniotomy 04/16/19, Acute rehab, Skull fragment replacement 06/26/19, home health PT Prior Functional Status Baseline Function- ADL's Independent Baseline Function- Mobility Independent PT-OP-C Subjective Start: 09/17/19 18:00 Freq: Status: Active Protocol: Document 07/28/20 13:45 DCW (Rec: 07/28/20 14:27 DCW [id number]) OP-PT Subjective Patient Comments Patient Comments Pt reports he has some nerve pain over night, always on the left side. PT-OP-E Functional Tests Start: 05/04/20 15:15 Freq: Status: Active Protocol: Document 05/04/20 15:15 DCW (Rec: 05/04/20 15:55 DCW [id number]) Functional Tests 6 Minute Walk Test Distance 870' Device Used none Comments 2.42 ft/sec Timed Up and Go (TUG) Score 10.82 seconds Comments 3-trial average (11.15, 11.05, 10.26) TUG Impairment Rating 1 to <20% Impaired (Score 11) PT-OP-G Mobility & Gait Start: 09/17/19 18:00 Freq: Status: Active Protocol: Document 05/04/20 15:15 DCW (Rec: 05/04/20 15:55 DCW [id number]) OP Mobility Evaluation Bed Mobility Rolling Independent Supine to and from Sit Independent Transfers Sit to Stand SBA Bed to Chair Transfers SBA OP Gait Assessment Gait Gait Assistance Required: Contact Guard Assist Distance (Feet) 870 Assistive Devices Assistive Device None Gait Deviations General Gait Pattern Antalgic,Ataxic,Decreased Stride Length,Decreased Feet Clearance,Flexed Trunk,Lateral Trunk Lean Factors Limiting Gait Function Factors Limiting Gait Function Abnormal Tonal Influences, Decreased Activity Tolerance, Decreased Sensation,Decreased Strength,Incoordination,Poor Balance,Poor Safety Awareness Comments Gait Comments Improved foot clearance, no instances of scissoring gait, better ability to visually scan for path finding and obstacle avoidance. Stair Climbing Evaluation Evaluation Level of Assist On Stairs Contact Guard Assistance Devices Stair Climbing Assistive Devices Right Railing Technique/Endurance Stair Climbing Direction Ascend and Descend Stair Climbing Technique Step Over Step,Step to Step Number of Steps Climbed 4 Stair Climbing Set # Repetitions (reps) 6 Comments Stair Climbing Comments Step-over ascending, step-to descending. Occasional scissoring with left during descent. PT-OP-H Neuro Start: 09/17/19 18:00 Freq: Status: Active Protocol: Document 05/04/20 15:15 DCW (Rec: 05/04/20 15:55 DCW [id number]) Sensation Evaluation Gross Sensation Gross Sensation Left UE Impaired,Left LE Impaired Sensation Description Paresthesia,Numbness,Pain Location Details Left Leg Light Touch Impaired Sharp/Dull Impaired Deep Pressure Intact/Normal Proprioception (Position) Impaired Kinesthesia (Movement) Impaired Deep Tendon Reflex & Clonus Assessment Deep Tendon Reflex Left Achilles Deep Tendon Reflex 3+ Normal But Brisk Left Patellar Deep Tendon Reflex 3+ Normal But Brisk Ankle Clonus Left Clonus Assessment Sustained Muscle Tone Tone Assessment Left Lower Extremity Flexor Tone Description Moderate Hypotonicity PT-OP-M Strength Start: 09/17/19 18:00 Freq: Status: Active Protocol: Document 05/04/20 15:15 DCW (Rec: 05/04/20 15:55 DCW [id number]) Hip Strength Hip Manual Muscle Testing Left Flexion (L2) 3 Fair Extension (S1) 3- Fair- Abduction 3 Fair Adduction 3+ Fair+ External Rotation 3+ Fair+ Internal Rotation 3+ Fair+ Reason Not Measured Muscle Tone Knee Strength Knee Manual Muscle Testing Left Flexion (S2) 4- Good- Extension (L3) 4 Good Reason Not Measured Muscle Tone,Pain Ankle/Foot Strength Ankle and Foot Manual Muscle Testing Left Dorsiflexion (L4) 4 Good Plantarflexion (S1) 3+ Fair+ Inversion 3+ Fair+ Eversion (S1) 3+ Fair+ PT-OP-Q Treatments Start: 09/17/19 18:00 Freq: Status: Active Protocol: Document 07/28/20 13:45 DCW (Rec: 07/28/20 14:27 DCW [id number]) Gym Equipment Shuttle Balance Red Details Wide [id number] Comments Min Ax1 Gait Training Gait Activity No AD Description No AD Device Used None Level of Assistance SBA Distance/Duration 990' x1 Comments VCs to promote heel-toe gait, extend left knee during stance phase Neuro Re-Education Treatment Balance Activities Ball Kick Details Ball kick to goal Comments Weight shift, SLS, Coordination Cone transfers Details Bending down to pick balls up from cone, kick cone over, balltoss to target PT-OP-R Modalities Start: 09/17/19 18:00 Freq: Status: Active Protocol: Document 07/28/20 13:45 DCW (Rec: 07/28/20 14:27 DCW [id number]) Electric Stimulation Electric Stimulation Interferential Current (IFC) Body Location L ant ankle Duration (Minutes) 10 Patient Position Sitting Combined With Heat/Cold Cold Pack PT-OP-S Aquatic Treatment Start: 09/17/19 18:00 Freq: Status: Active Protocol: Document 01/30/20 12:30 LJ (Rec: 01/30/20 14:54 LJ [id number]) Aquatics Treatment Pool Entry/Exit Pool Entry/Exit Method Lift Assistance Minimal Assistance Water Walking Slow motion Water Level Chest Level Walking Equipment wet vest, UE float, #2.5 ankle wt Level of Assistance Standby Assistance,Contact Guard Assistance,Moderate Assistance Comments emphasis on LLE extension stance phase January Water Level Chest Level Walking Equipment wet vest, UE float, #2.5 ankle wt Level of Assistance Standby Assistance,Contact Guard Assistance,Moderate Assistance,Verbal Cues Forward with emphasis on reciprocal gait pattern Water Level Chest Level Level of Assistance Standby Assistance,Contact Guard Assistance,Minimal Assistance,Verbal Cues Comments wetvest, sm float on LUE, #3. 75 ankle wt on LLE start stop walking forward and backward Water Level Chest Level Walking Equipment vest Level of Assistance Contact Guard Assistance, Verbal Cues Comments wetvest, sm float on LUE, #3. 75 ankle wt on LLE Sideways Water Level Chest Level Walking Equipment wet vest, UE float, #2.5 ankle wt Level of Assistance Standby Assistance,Contact Guard Assistance,Minimal Assistance,Verbal Cues Lower Extremity Exercises SL aquats Details HH on wall Body Position Standing Water Level Waist Level Equipment wetvest Reps/Duration 2x10 LLE Comments VC to extend knee knee extensions Details seated in lift chair Equipment Ankle Weight- 5.0# Reps/Duration 20 B Comments seated in lift SLS Details bracing LLE Body Position Standing Water Level Chest Level Equipment vest Reps/Duration 1 min marching at wall Water Level Chest Level Reps/Duration 2 min Comments opposite UE/LE tapping wall squats Body Position Standing Water Level Chest Level Reps/Duration 20x Lower Extremity Stretches adductors Comments seated in chair Gastroc Body Position Sitting Reps/Duration 2 x 45 sec B Comments manual assist hip flexors Details at wall Body Position Standing Water Level Waist Level Reps/Duration 2x45 Comments manually assisted HS Details at wall Body Position Sitting Water Level Waist Level Equipment wet vest Reps/Duration 2x45 Comments sitting in lift chair assisted Upper Extremity Exercises breastroke UE's Body Position Standing Water Level Chest Level Reps/Duration 3 min Comments during walking and deep water hor ab/ad Water Level Chest Level Comments during side walking, CGA Balance step ups Details step ups/down using boxes Body Position Standing Water Level Waist Level Equipment 8 boxes Comments mod verbal cues for coordination Milmay Activities Milmay Activities Bicycle,Cross Country Equipment wet vest, white noodle Duration 7 min Comments Guy and cues for vertical alignmernt. PT-OP-T Assessment and Plan Start: 09/17/19 18:00 Freq: Status: Active Protocol: Document 07/28/20 13:45 DCW (Rec: 07/28/20 14:27 DCW [id number]) Physical Therapy Assessment Impairments Impairments Activity Tolerance,Balance, Coordination,Functional Activities,Functional Mobility ,Gait,Pain,ROM,Sensation, Strength,Tone,Transfers Goals Six Impairment Decreased Static Balance Short Term Goal (STG) Pt to score <9 seconds on TUG STG Duration 08/05/20 Precision Agronomist Goal (LTG) Pt to score 35/56 or better on the Adler Balance LTG Duration 09/04/20 Five Impairment Pt uses R rail and step-over gait pattern ascending stairs Group Home Goal (LTG) Pt to ascend/descend stairs independently without use of rail LTG Duration 09/04/20 Four Impairment Pt demonstrates strength impairment throughout left LE Precision Agronomist Goal (LTG) Pt to display MMT >3+/5 through L LE LTG Duration 09/04/20 - Improving Three Impairment Pt SBA for transfers and bed mobility d/t Left Neglect Group Home Goal (LTG) Pt to demonstrate independent transfers and bed mobility with an ability to address left LE and UE 80% of the time LTG Duration Met Two Impairment Pt ambulates 280' CGA /s an AD Short Term Goal (STG) Pt to ambulate 400' SBA independently STG Duration Met Group Home Goal (LTG) Pt to ambulate 800' during 6 MWT Independently without SBA LTG Duration 09/04/20 One Impairment Pt does not have an appropriate home exercise program Short Term Goal (STG) Pt to be independent and compliant with an appropriate HEP STG Duration Met Assessment Summary Assessment Due to OT appointment immediately following PT appointment, both treatment time and e-stim time were reduced to ensure pt would get to OT on time. Overall, pt tolerated treatment well today , feeling more stable when walking, minimal toe catching today. Physical Therapy Plan Frequency and Duration Frequency of Treatment 2x/Week Duration of Treatment 3 months Plan of Care Start Date 05/04/20 Plan of Care End Date 08/04/20 Therapeutic Interventions Therapeutic Interventions Aquatic Therapy,Balance Training,Coordination Training ,Gait Training,Home Exercise Program,Manual Therapy, Neuromuscular Re-education, Patient/Caregiver Education, Self-Care/Home Management, Therapeutic Activities, Therapeutic Exercises Modalities Cold Pack/Ice Massage,Electric Stimulation,Hot Packs, Ultrasound Next Visit Focus/Plan Next Note Type Treatment Note Next Visit Plan Continue to challenge, continue strengthening, balance and gait training with NMR. Continue deep water for cardio training and core stabilization. Focus on bilateral knee extension in shallow water gait training
--- NOTE | 2020-07-30 14:30 | PT.OTN ---
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) Physical Therapy Treatment Note PT-OP-A Visit Information Start: 09/17/19 18:00 Freq: Status: Active Protocol: Document 07/30/20 13:45 DCW (Rec: 07/30/20 14:30 DCW [id number]) Out-Patient Physical Therapy Visit Information Visit Information Visit Type Treatment Note Visit Start Time 13:45 Visit Stop Time 14:40 Total Visit Minutes 55 Visit Number 60 Number of SUPERINTENDENT BUILDING Visits 0 Evaluation Information Evaluation Date 09/17/19 PT-OP-B Current Condition Start: 09/17/19 18:00 Freq: Status: Active Protocol: Document 09/17/19 12:00 DCW (Rec: 09/18/19 10:29 DCW [id number]) Current Condition History of Current Condition Onset Date 04/14/19 Current Complaints Hemiparesis secondary to CVA History of Current Condition Pt is a 69 year old male presenting to skilled outpatient physical therapy with left-side neglect, hemiparesis, loss of independence, and difficulty walking following an intraparenchymal hemorrhage on 04/14/19. Pt was transferred from [facility] to [facility], where a craniotomy was performed on 04/16/19. Pt completed 7 weeks of rehab/ recovery at [facility], and then underwent a second surgery on 06/26/19 to replace the skull fragment. Pt was then at an acute rehab facility 06/30-07/18/19, and since then has been receiving home health physical therapy. Pt presents today with limited left-sided function, left visual and physical neglect, difficulty with transfers, decreased activity tolerance, decreased gait, and many other secondary effects following his CVA. Pt has been working on ambulation with a vale walker with home health, and his states he has walked around 100' a few times, but always with a therapist, as she does not feel comfortable walking with him yet. Pt exclusively gets around at time of evaluation in a manual wheelchair. Pt's transfers have been going fairly well, with his caregivers performing CGA, however pt will occasionally need assistance with placement of his left UE and LE due to neglect. Pt's biggest complaint at the moment is leg pain, his reports they have tried PT, Massage, CBD il, Tylenol, Oxycodine, and Gabapentin, all with minimal benefit. Prior to CVA, pt was fully independent in all activities. Pt and have garegivers 8 hrs a day for assistance. Prior Treatments and Tests Craniotomy 04/16/19, Acute rehab, Skull fragment replacement 06/26/19, home health PT Prior Functional Status Baseline Function- ADL's Independent Baseline Function- Mobility Independent PT-OP-C Subjective Start: 09/17/19 18:00 Freq: Status: Active Protocol: Document 07/30/20 13:45 DCW (Rec: 07/30/20 14:30 DCW [id number]) OP-PT Subjective Patient Comments Patient Comments Pt reports he has been thinking more about his situation, and he is very thankful that he is able to continue with his 2x/weekly therapy sessions. PT-OP-E Functional Tests Start: 05/04/20 15:15 Freq: Status: Active Protocol: Document 05/04/20 15:15 DCW (Rec: 05/04/20 15:55 DCW [id number]) Functional Tests 6 Minute Walk Test Distance 870' Device Used none Comments 2.42 ft/sec Timed Up and Go (TUG) Score 10.82 seconds Comments 3-trial average (11.15, 11.05, 10.26) TUG Impairment Rating 1 to <20% Impaired (Score 11) PT-OP-G Mobility & Gait Start: 09/17/19 18:00 Freq: Status: Active Protocol: Document 05/04/20 15:15 DCW (Rec: 05/04/20 15:55 DCW [id number]) OP Mobility Evaluation Bed Mobility Rolling Independent Supine to and from Sit Independent Transfers Sit to Stand SBA Bed to Chair Transfers SBA OP Gait Assessment Gait Gait Assistance Required: Contact Guard Assist Distance (Feet) 870 Assistive Devices Assistive Device None Gait Deviations General Gait Pattern Antalgic,Ataxic,Decreased Stride Length,Decreased Feet Clearance,Flexed Trunk,Lateral Trunk Lean Factors Limiting Gait Function Factors Limiting Gait Function Abnormal Tonal Influences, Decreased Activity Tolerance, Decreased Sensation,Decreased Strength,Incoordination,Poor Balance,Poor Safety Awareness Comments Gait Comments Improved foot clearance, no instances of scissoring gait, better ability to visually scan for path finding and obstacle avoidance. Stair Climbing Evaluation Evaluation Level of Assist On Stairs Contact Guard Assistance Devices Stair Climbing Assistive Devices Right Railing Technique/Endurance Stair Climbing Direction Ascend and Descend Stair Climbing Technique Step Over Step,Step to Step Number of Steps Climbed 4 Stair Climbing Set # Repetitions (reps) 6 Comments Stair Climbing Comments Step-over ascending, step-to descending. Occasional scissoring with left during descent. PT-OP-H Neuro Start: 09/17/19 18:00 Freq: Status: Active Protocol: Document 05/04/20 15:15 DCW (Rec: 05/04/20 15:55 DCW [id number]) Sensation Evaluation Gross Sensation Gross Sensation Left UE Impaired,Left LE Impaired Sensation Description Paresthesia,Numbness,Pain Location Details Left Leg Light Touch Impaired Sharp/Dull Impaired Deep Pressure Intact/Normal Proprioception (Position) Impaired Kinesthesia (Movement) Impaired Deep Tendon Reflex & Clonus Assessment Deep Tendon Reflex Left Achilles Deep Tendon Reflex 3+ Normal But Brisk Left Patellar Deep Tendon Reflex 3+ Normal But Brisk Ankle Clonus Left Clonus Assessment Sustained Muscle Tone Tone Assessment Left Lower Extremity Flexor Tone Description Moderate Hypotonicity PT-OP-M Strength Start: 09/17/19 18:00 Freq: Status: Active Protocol: Document 05/04/20 15:15 DCW (Rec: 05/04/20 15:55 DCW [id number]) Hip Strength Hip Manual Muscle Testing Left Flexion (L2) 3 Fair Extension (S1) 3- Fair- Abduction 3 Fair Adduction 3+ Fair+ External Rotation 3+ Fair+ Internal Rotation 3+ Fair+ Reason Not Measured Muscle Tone Knee Strength Knee Manual Muscle Testing Left Flexion (S2) 4- Good- Extension (L3) 4 Good Reason Not Measured Muscle Tone,Pain Ankle/Foot Strength Ankle and Foot Manual Muscle Testing Left Dorsiflexion (L4) 4 Good Plantarflexion (S1) 3+ Fair+ Inversion 3+ Fair+ Eversion (S1) 3+ Fair+ PT-OP-Q Treatments Start: 09/17/19 18:00 Freq: Status: Active Protocol: Document 07/30/20 13:45 DCW (Rec: 07/30/20 14:30 DCW [id number]) Therapeutic Exercises Sitting Exercises Hamstring Curls Sitting Exercise Name HS curl Side left Resistance Lv 3 Equipment Used T-band Standing Exercises Hip Extension Standing Exercise Name Hip Extension Side bilateral Resistance Yellow Equipment Used T-band Other Exercises Hurdles Other Exercise Name Hurdles Comments Fwd Side-stepping Other Exercise Name Side-stepping at rail - CGA Resistance Yellow Equipment Used T-band Comments B UE use Gait Training Gait Activity No AD Description No AD Device Used None Level of Assistance SBA Distance/Duration 990' x1 Comments VCs to promote heel-toe gait, extend left knee during stance phase Neuro Re-Education Treatment Balance Activities Ball Kick Details Ball kick to goal Comments Weight shift, SLS, Coordination Cone transfers Details Bending down to pick balls up from cone, kick cone over, balltoss to target PT-OP-R Modalities Start: 09/17/19 18:00 Freq: Status: Active Protocol: Document 07/30/20 13:45 DCW (Rec: 07/30/20 14:30 DCW [id number]) Electric Stimulation Electric Stimulation Interferential Current (IFC) Body Location L ant ankle Duration (Minutes) 15 Patient Position Sitting Combined With Heat/Cold Cold Pack PT-OP-S Aquatic Treatment Start: 09/17/19 18:00 Freq: Status: Active Protocol: Document 01/30/20 12:30 LJ (Rec: 01/30/20 14:54 LJ [id number]) Aquatics Treatment Pool Entry/Exit Pool Entry/Exit Method Lift Assistance Minimal Assistance Water Walking Slow motion Water Level Chest Level Walking Equipment wet vest, UE float, #2.5 ankle wt Level of Assistance Standby Assistance,Contact Guard Assistance,Moderate Assistance Comments emphasis on LLE extension stance phase January Water Level Chest Level Walking Equipment wet vest, UE float, #2.5 ankle wt Level of Assistance Standby Assistance,Contact Guard Assistance,Moderate Assistance,Verbal Cues Forward with emphasis on reciprocal gait pattern Water Level Chest Level Level of Assistance Standby Assistance,Contact Guard Assistance,Minimal Assistance,Verbal Cues Comments wetvest, sm float on LUE, #3. 75 ankle wt on LLE start stop walking forward and backward Water Level Chest Level Walking Equipment vest Level of Assistance Contact Guard Assistance, Verbal Cues Comments wetvest, sm float on LUE, #3. 75 ankle wt on LLE Sideways Water Level Chest Level Walking Equipment wet vest, UE float, #2.5 ankle wt Level of Assistance Standby Assistance,Contact Guard Assistance,Minimal Assistance,Verbal Cues Lower Extremity Exercises SL aquats Details HH on wall Body Position Standing Water Level Waist Level Equipment wetvest Reps/Duration 2x10 LLE Comments VC to extend knee knee extensions Details seated in lift chair Equipment Ankle Weight- 5.0# Reps/Duration 20 B Comments seated in lift SLS Details bracing LLE Body Position Standing Water Level Chest Level Equipment vest Reps/Duration 1 min marching at wall Water Level Chest Level Reps/Duration 2 min Comments opposite UE/LE tapping wall squats Body Position Standing Water Level Chest Level Reps/Duration 20x Lower Extremity Stretches adductors Comments seated in chair Gastroc Body Position Sitting Reps/Duration 2 x 45 sec B Comments manual assist hip flexors Details at wall Body Position Standing Water Level Waist Level Reps/Duration 2x45 Comments manually assisted HS Details at wall Body Position Sitting Water Level Waist Level Equipment wet vest Reps/Duration 2x45 Comments sitting in lift chair assisted Upper Extremity Exercises breastroke UE's Body Position Standing Water Level Chest Level Reps/Duration 3 min Comments during walking and deep water hor ab/ad Water Level Chest Level Comments during side walking, CGA Balance step ups Details step ups/down using boxes Body Position Standing Water Level Waist Level Equipment 8 boxes Comments mod verbal cues for coordination [place] Activities [place] Activities Bicycle,Cross Country Equipment wet vest, white noodle Duration 7 min Comments Guy and cues for vertical alignmernt. PT-OP-T Assessment and Plan Start: 09/17/19 18:00 Freq: Status: Active Protocol: Document 07/30/20 13:45 DCW (Rec: 07/30/20 14:30 DCW [id number]) Physical Therapy Assessment Impairments Impairments Activity Tolerance,Balance, Coordination,Functional Activities,Functional Mobility ,Gait,Pain,ROM,Sensation, Strength,Tone,Transfers Goals Six Impairment Decreased Static Balance Short Term Goal (STG) Pt to score <9 seconds on TUG STG Duration 08/05/20 Associate Brand Manager Goal (LTG) Pt to score 35/56 or better on the [place] Balance LTG Duration 09/04/20 Five Impairment Pt uses R rail and step-over gait pattern ascending stairs Custodial Goal (LTG) Pt to ascend/descend stairs independently without use of rail LTG Duration 09/04/20 Four Impairment Pt demonstrates strength impairment throughout left LE Associate Brand Manager Goal (LTG) Pt to display MMT >3+/5 through L LE LTG Duration 09/04/20 - Improving Three Impairment Pt SBA for transfers and bed mobility d/t Left Neglect Associate Brand Manager Goal (LTG) Pt to demonstrate independent transfers and bed mobility with an ability to address left LE and UE 80% of the time LTG Duration Met Two Impairment Pt ambulates 280' CGA /s an AD Short Term Goal (STG) Pt to ambulate 400' SBA independently STG Duration Met Custodial Goal (LTG) Pt to ambulate 800' during 6 MWT Independently without SBA LTG Duration 09/04/20 One Impairment Pt does not have an appropriate home exercise program Short Term Goal (STG) Pt to be independent and compliant with an appropriate HEP STG Duration Met Assessment Summary Assessment Pt did well today, showed substantial improvement with ball pick-up/toss and amb over hurdles, much improved stability. Physical Therapy Plan Frequency and Duration Frequency of Treatment 2x/Week Duration of Treatment 3 months Plan of Care Start Date 05/04/20 Plan of Care End Date 08/04/20 Therapeutic Interventions Therapeutic Interventions Aquatic Therapy,Balance Training,Coordination Training ,Gait Training,Home Exercise Program,Manual Therapy, Neuromuscular Re-education, Patient/Caregiver Education, Self-Care/Home Management, Therapeutic Activities, Therapeutic Exercises Modalities Cold Pack/Ice Massage,Electric Stimulation,Hot Packs, Ultrasound Next Visit Focus/Plan Next Note Type Treatment Note Next Visit Plan Continue to challenge, continue strengthening, balance and gait training with NMR. Continue deep water for cardio training and core stabilization. Focus on bilateral knee extension in shallow water gait training
--- NOTE | 2020-08-02 14:22 | PT.OTN ---
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) Physical Therapy Treatment Note PT-OP-A Visit Information Start: 09/17/19 18:00 Freq: Status: Active Protocol: Document 08/02/20 13:45 DCW (Rec: 08/02/20 14:22 DCW [id number]) Out-Patient Physical Therapy Visit Information Visit Information Visit Type Treatment Note Visit Start Time 13:45 Visit Stop Time 14:30 Total Visit Minutes 45 Visit Number 61 Number of SUSTAINABLE AGRICULTURE FACULTY Visits 0 Evaluation Information Evaluation Date 09/17/19 PT-OP-B Current Condition Start: 09/17/19 18:00 Freq: Status: Active Protocol: Document 09/17/19 12:00 DCW (Rec: 09/18/19 10:29 DCW [id number]) Current Condition History of Current Condition Onset Date 04/14/19 Current Complaints Hemiparesis secondary to CVA History of Current Condition Pt is a 69 year old male presenting to skilled outpatient physical therapy with left-side neglect, hemiparesis, loss of independence, and difficulty walking following an intraparenchymal hemorrhage on 04/14/19. Pt was transferred from [facility] to [facility], where a craniotomy was performed on 04/16/19. Pt completed 7 weeks of rehab/ recovery at [facility], and then underwent a second surgery on 06/26/19 to replace the skull fragment. Pt was then at an acute rehab facility 06/30-07/18/19, and since then has been receiving home health physical therapy. Pt presents today with limited left-sided function, left visual and physical neglect, difficulty with transfers, decreased activity tolerance, decreased gait, and many other secondary effects following his CVA. Pt has been working on ambulation with a vale walker with home health, and his states he has walked around 100' a few times, but always with a therapist, as she does not feel comfortable walking with him yet. Pt exclusively gets around at time of evaluation in a manual wheelchair. Pt's transfers have been going fairly well, with his caregivers performing CGA, however pt will occasionally need assistance with placement of his left UE and LE due to neglect. Pt's biggest complaint at the moment is leg pain, his reports they have tried PT, Massage, CBD il, Tylenol, Oxycodine, and Gabapentin, all with minimal benefit. Prior to CVA, pt was fully independent in all activities. Pt and have garegivers 8 hrs a day for assistance. Prior Treatments and Tests Craniotomy 04/16/19, Acute rehab, Skull fragment replacement 06/26/19, home health PT Prior Functional Status Baseline Function- ADL's Independent Baseline Function- Mobility Independent PT-OP-C Subjective Start: 09/17/19 18:00 Freq: Status: Active Protocol: Document 08/02/20 13:45 DCW (Rec: 08/02/20 14:22 DCW [id number]) OP-PT Subjective Patient Comments Patient Comments Pt reports that he feels good today, no pain. Pt notes that he has speech therapy immediately after PT, and would like to finish early to have time for E-stim. PT-OP-E Functional Tests Start: 05/04/20 15:15 Freq: Status: Active Protocol: Document 05/04/20 15:15 DCW (Rec: 05/04/20 15:55 DCW [id number]) Functional Tests 6 Minute Walk Test Distance 870' Device Used none Comments 2.42 ft/sec Timed Up and Go (TUG) Score 10.82 seconds Comments 3-trial average (11.15, 11.05, 10.26) TUG Impairment Rating 1 to <20% Impaired (Score 11) PT-OP-G Mobility & Gait Start: 09/17/19 18:00 Freq: Status: Active Protocol: Document 05/04/20 15:15 DCW (Rec: 05/04/20 15:55 DCW [id number]) OP Mobility Evaluation Bed Mobility Rolling Independent Supine to and from Sit Independent Transfers Sit to Stand SBA Bed to Chair Transfers SBA OP Gait Assessment Gait Gait Assistance Required: Contact Guard Assist Distance (Feet) 870 Assistive Devices Assistive Device None Gait Deviations General Gait Pattern Antalgic,Ataxic,Decreased Stride Length,Decreased Feet Clearance,Flexed Trunk,Lateral Trunk Lean Factors Limiting Gait Function Factors Limiting Gait Function Abnormal Tonal Influences, Decreased Activity Tolerance, Decreased Sensation,Decreased Strength,Incoordination,Poor Balance,Poor Safety Awareness Comments Gait Comments Improved foot clearance, no instances of scissoring gait, better ability to visually scan for path finding and obstacle avoidance. Stair Climbing Evaluation Evaluation Level of Assist On Stairs Contact Guard Assistance Devices Stair Climbing Assistive Devices Right Railing Technique/Endurance Stair Climbing Direction Ascend and Descend Stair Climbing Technique Step Over Step,Step to Step Number of Steps Climbed 4 Stair Climbing Set # Repetitions (reps) 6 Comments Stair Climbing Comments Step-over ascending, step-to descending. Occasional scissoring with left during descent. PT-OP-H Neuro Start: 09/17/19 18:00 Freq: Status: Active Protocol: Document 05/04/20 15:15 DCW (Rec: 05/04/20 15:55 DCW [id number]) Sensation Evaluation Gross Sensation Gross Sensation Left UE Impaired,Left LE Impaired Sensation Description Paresthesia,Numbness,Pain Location Details Left Leg Light Touch Impaired Sharp/Dull Impaired Deep Pressure Intact/Normal Proprioception (Position) Impaired Kinesthesia (Movement) Impaired Deep Tendon Reflex & Clonus Assessment Deep Tendon Reflex Left Achilles Deep Tendon Reflex 3+ Normal But Brisk Left Patellar Deep Tendon Reflex 3+ Normal But Brisk Ankle Clonus Left Clonus Assessment Sustained Muscle Tone Tone Assessment Left Lower Extremity Flexor Tone Description Moderate Hypotonicity PT-OP-M Strength Start: 09/17/19 18:00 Freq: Status: Active Protocol: Document 05/04/20 15:15 DCW (Rec: 05/04/20 15:55 DCW [id number]) Hip Strength Hip Manual Muscle Testing Left Flexion (L2) 3 Fair Extension (S1) 3- Fair- Abduction 3 Fair Adduction 3+ Fair+ External Rotation 3+ Fair+ Internal Rotation 3+ Fair+ Reason Not Measured Muscle Tone Knee Strength Knee Manual Muscle Testing Left Flexion (S2) 4- Good- Extension (L3) 4 Good Reason Not Measured Muscle Tone,Pain Ankle/Foot Strength Ankle and Foot Manual Muscle Testing Left Dorsiflexion (L4) 4 Good Plantarflexion (S1) 3+ Fair+ Inversion 3+ Fair+ Eversion (S1) 3+ Fair+ PT-OP-Q Treatments Start: 09/17/19 18:00 Freq: Status: Active Protocol: Document 08/02/20 13:45 DCW (Rec: 08/02/20 14:22 DCW [id number]) Gym Equipment Shuttle Recovery Unilateral Heel Raises Details Left Resistance 25# Reps/Time calf stretch at end Unilateral Squats Details Left Resistance 62# Shuttle Recovery Platform Stable Bilateral Squats Resistance 100# Shuttle Recovery Platform Stable Shuttle Balance Red Details Wide [id number] Comments Min Ax1 Therapeutic Exercises Sitting Exercises Seated Marching Sitting Exercise Name Seated Marching Side bilateral Resistance 10# Equipment Used ankle weights Reps/Minutes 10 bilat Comments cues for slow controlled movement Abduction Sitting Exercise Name Hip Abduction Side bilateral Resistance Lv 3 Equipment Used T-band LAQ Sitting Exercise Name LAQ Side bilateral Resistance 10# Equipment Used ankle weights Gait Training Gait Activity No AD Description No AD Device Used None Level of Assistance SBA Distance/Duration 820' x1 Comments VCs to promote heel-toe gait, extend left knee during stance phase PT-OP-R Modalities Start: 09/17/19 18:00 Freq: Status: Active Protocol: Document 08/02/20 13:45 DCW (Rec: 08/02/20 14:22 DCW [id number]) Electric Stimulation Electric Stimulation Interferential Current (IFC) Body Location L ant ankle Duration (Minutes) 10 Patient Position Sitting Combined With Heat/Cold Cold Pack PT-OP-S Aquatic Treatment Start: 09/17/19 18:00 Freq: Status: Active Protocol: Document 01/30/20 12:30 LJ (Rec: 01/30/20 14:54 LJ [id number]) Aquatics Treatment Pool Entry/Exit Pool Entry/Exit Method Lift Assistance Minimal Assistance Water Walking Slow motion Water Level Chest Level Walking Equipment wet vest, UE float, #2.5 ankle wt Level of Assistance Standby Assistance,Contact Guard Assistance,Moderate Assistance Comments emphasis on LLE extension stance phase January Water Level Chest Level Walking Equipment wet vest, UE float, #2.5 ankle wt Level of Assistance Standby Assistance,Contact Guard Assistance,Moderate Assistance,Verbal Cues Forward with emphasis on reciprocal gait pattern Water Level Chest Level Level of Assistance Standby Assistance,Contact Guard Assistance,Minimal Assistance,Verbal Cues Comments wetvest, sm float on LUE, #3. 75 ankle wt on LLE start stop walking forward and backward Water Level Chest Level Walking Equipment vest Level of Assistance Contact Guard Assistance, Verbal Cues Comments wetvest, sm float on LUE, #3. 75 ankle wt on LLE Sideways Water Level Chest Level Walking Equipment wet vest, UE float, #2.5 ankle wt Level of Assistance Standby Assistance,Contact Guard Assistance,Minimal Assistance,Verbal Cues Lower Extremity Exercises SL aquats Details HH on wall Body Position Standing Water Level Waist Level Equipment wetvest Reps/Duration 2x10 LLE Comments VC to extend knee knee extensions Details seated in lift chair Equipment Ankle Weight- 5.0# Reps/Duration 20 B Comments seated in lift SLS Details bracing LLE Body Position Standing Water Level Chest Level Equipment vest Reps/Duration 1 min marching at wall Water Level Chest Level Reps/Duration 2 min Comments opposite UE/LE tapping wall squats Body Position Standing Water Level Chest Level Reps/Duration 20x Lower Extremity Stretches adductors Comments seated in chair Gastroc Body Position Sitting Reps/Duration 2 x 45 sec B Comments manual assist hip flexors Details at wall Body Position Standing Water Level Waist Level Reps/Duration 2x45 Comments manually assisted HS Details at wall Body Position Sitting Water Level Waist Level Equipment wet vest Reps/Duration 2x45 Comments sitting in lift chair assisted Upper Extremity Exercises breastroke UE's Body Position Standing Water Level Chest Level Reps/Duration 3 min Comments during walking and deep water hor ab/ad Water Level Chest Level Comments during side walking, CGA Balance step ups Details step ups/down using boxes Body Position Standing Water Level Waist Level Equipment 8 boxes Comments mod verbal cues for coordination Gile Activities Gile Activities Bicycle,Cross Country Equipment wet vest, white noodle Duration 7 min Comments Guy and cues for vertical alignmernt. PT-OP-T Assessment and Plan Start: 09/17/19 18:00 Freq: Status: Active Protocol: Document 08/02/20 13:45 DCW (Rec: 08/02/20 14:22 DCW [id number]) Physical Therapy Assessment Impairments Impairments Activity Tolerance,Balance, Coordination,Functional Activities,Functional Mobility ,Gait,Pain,ROM,Sensation, Strength,Tone,Transfers Goals Six Impairment Decreased Static Balance Short Term Goal (STG) Pt to score <9 seconds on TUG STG Duration 08/05/20 Final Application Reviewer Goal (LTG) Pt to score 35/56 or better on the Adler Balance LTG Duration 09/04/20 Five Impairment Pt uses R rail and step-over gait pattern ascending stairs Nursing Home Goal (LTG) Pt to ascend/descend stairs independently without use of rail LTG Duration 09/04/20 Four Impairment Pt demonstrates strength impairment throughout left LE Nursing Home Goal (LTG) Pt to display MMT >3+/5 through L LE LTG Duration 09/04/20 - Improving Three Impairment Pt SBA for transfers and bed mobility d/t Left Neglect Nursing Home Goal (LTG) Pt to demonstrate independent transfers and bed mobility with an ability to address left LE and UE 80% of the time LTG Duration Met Two Impairment Pt ambulates 280' CGA /s an AD Short Term Goal (STG) Pt to ambulate 400' SBA independently STG Duration Met Final Application Reviewer Goal (LTG) Pt to ambulate 800' during 6 MWT Independently without SBA LTG Duration 09/04/20 One Impairment Pt does not have an appropriate home exercise program Short Term Goal (STG) Pt to be independent and compliant with an appropriate HEP STG Duration Met Assessment Summary Assessment Focused more on strengthening in quads/glutes and balance today. Pt doing well with improving strength. Physical Therapy Plan Frequency and Duration Frequency of Treatment 2x/Week Duration of Treatment 3 months Plan of Care Start Date 05/04/20 Plan of Care End Date 08/04/20 Therapeutic Interventions Therapeutic Interventions Aquatic Therapy,Balance Training,Coordination Training ,Gait Training,Home Exercise Program,Manual Therapy, Neuromuscular Re-education, Patient/Caregiver Education, Self-Care/Home Management, Therapeutic Activities, Therapeutic Exercises Modalities Cold Pack/Ice Massage,Electric Stimulation,Hot Packs, Ultrasound Next Visit Focus/Plan Next Note Type Progress Note Next Visit Plan Continue to challenge, continue strengthening, balance and gait training with NMR. Continue deep water for cardio training and core stabilization. Focus on bilateral knee extension in shallow water gait training
--- NOTE | 2020-08-04 15:02 | PT.OTN ---
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) Physical Therapy Treatment Note PT-OP-A Visit Information Start: 09/17/19 18:00 Freq: Status: Active Protocol: Document 08/04/20 13:45 DCW (Rec: 08/04/20 15:01 DCW [id number]) Out-Patient Physical Therapy Visit Information Visit Information Visit Type Progress Note Visit Start Time 13:45 Visit Stop Time 14:30 Total Visit Minutes 45 Visit Number 62 Number of CASE MANAGER SPECIALIST Visits 0 Evaluation Information Evaluation Date 09/17/19 PT-OP-B Current Condition Start: 09/17/19 18:00 Freq: Status: Active Protocol: Document 09/17/19 12:00 DCW (Rec: 09/18/19 10:29 DCW [id number]) Current Condition History of Current Condition Onset Date 04/14/19 Current Complaints Hemiparesis secondary to CVA History of Current Condition Pt is a 69 year old male presenting to skilled outpatient physical therapy with left-side neglect, hemiparesis, loss of independence, and difficulty walking following an intraparenchymal hemorrhage on 04/14/19. Pt was transferred from [facility] to [facility], where a craniotomy was performed on 04/16/19. Pt completed 7 weeks of rehab/ recovery at [facility], and then underwent a second surgery on 06/26/19 to replace the skull fragment. Pt was then at an acute rehab facility 06/30-07/18/19, and since then has been receiving home health physical therapy. Pt presents today with limited left-sided function, left visual and physical neglect, difficulty with transfers, decreased activity tolerance, decreased gait, and many other secondary effects following his CVA. Pt has been working on ambulation with a vale walker with home health, and his states he has walked around 100' a few times, but always with a therapist, as she does not feel comfortable walking with him yet. Pt exclusively gets around at time of evaluation in a manual wheelchair. Pt's transfers have been going fairly well, with his caregivers performing CGA, however pt will occasionally need assistance with placement of his left UE and LE due to neglect. Pt's biggest complaint at the moment is leg pain, his reports they have tried PT, Massage, CBD il, Tylenol, Oxycodine, and Gabapentin, all with minimal benefit. Prior to CVA, pt was fully independent in all activities. Pt and have garegivers 8 hrs a day for assistance. Prior Treatments and Tests Craniotomy 04/16/19, Acute rehab, Skull fragment replacement 06/26/19, home health PT Prior Functional Status Baseline Function- ADL's Independent Baseline Function- Mobility Independent PT-OP-C Subjective Start: 09/17/19 18:00 Freq: Status: Active Protocol: Document 08/04/20 13:45 DCW (Rec: 08/04/20 15:01 DCW [id number]) OP-PT Subjective Patient Comments Patient Comments Pt reports he feels like he has been making some good progress recently. PT-OP-D Balance Start: 08/04/20 14:14 Freq: Status: Active Protocol: Document 08/04/20 13:45 DCW (Rec: 08/04/20 14:28 DCW [id number]) Balance Tests Adler Balance Test Adler Balance Test Score 39/56 Adler Impairment Rating 20 to 39% Impaired (Score 34- 44) Adler Balance Assessment Evaluation Sitting to Standing Ability Independent w/out Hands Unsupported Stance Supervision- 2 minutes Sitting Unsupported, Feet on Floor Safely- 2 minutes Standing to Sitting Ability Assist, Control w/Hands Transfer Ability Safely, Hand Use Unsupported Stance- Eyes Closed Supervision, 10 seconds Unsupported Stance- Eyes Open Supervision to maintain Reaching Forward Standing Safely, 5 inches Pick- Up Object From Floor Supervision Look Behind Shoulder - Standing Shifts Weight Unilateral Turning 360 Degrees Turns slowly, but safely Unsupported Stance, Alternating Feet on 4 Steps w/Supervision Stair Unsupported Tandem Stance Small Step- 30 seconds Unilateral Leg Stance Lifts Leg/Unable to Hold Total Score Adler Total Score (out of 56 points) 39 Adler Impairment Rating 20 to 39% Impaired (Score 34- 44) PT-OP-E Functional Tests Start: 05/04/20 15:15 Freq: Status: Active Protocol: Document 08/04/20 13:45 DCW (Rec: 08/04/20 14:13 DCW [id number]) Functional Tests 6 Minute Walk Test Distance 1132' Device Used none Comments 3.14 ft/sec Timed Up and Go (TUG) Score 9.05 seconds Comments 3-trial average (10.03, 8.96, 8.16) TUG Impairment Rating 0% Impaired (Score 10) PT-OP-G Mobility & Gait Start: 09/17/19 18:00 Freq: Status: Active Protocol: Document 08/04/20 13:45 DCW (Rec: 08/04/20 14:13 DCW [id number]) OP Mobility Evaluation Bed Mobility Rolling Independent Supine to and from Sit Independent Transfers Sit to Stand SBA Bed to Chair Transfers SBA OP Gait Assessment Gait Gait Assistance Required: Standby Assistance Distance (Feet) 1,132 Assistive Devices Assistive Device None Gait Deviations General Gait Pattern Antalgic,Ataxic,Decreased Feet Clearance,Flexed Trunk, Lateral Trunk Lean Factors Limiting Gait Function Factors Limiting Gait Function Abnormal Tonal Influences, Decreased Activity Tolerance, Decreased Sensation,Decreased Strength,Incoordination,Poor Balance,Poor Safety Awareness Stair Climbing Evaluation Evaluation Level of Assist On Stairs Contact Guard Assistance Devices Stair Climbing Assistive Devices Right Railing Technique/Endurance Stair Climbing Direction Ascend and Descend Stair Climbing Technique Step Over Step,Step to Step Number of Steps Climbed 4 Stair Climbing Set # Repetitions (reps) 6 Comments Stair Climbing Comments Step-over ascending, step-to descending. Minimal scissoring with left during descent. PT-OP-H Neuro Start: 09/17/19 18:00 Freq: Status: Active Protocol: Document 08/04/20 13:45 DCW (Rec: 08/04/20 14:13 DCW [id number]) Sensation Evaluation Gross Sensation Gross Sensation Left UE Impaired,Left LE Impaired Sensation Description Paresthesia,Numbness,Pain Location Details Left Leg Light Touch Impaired Sharp/Dull Impaired Deep Pressure Intact/Normal Proprioception (Position) Impaired Kinesthesia (Movement) Impaired Deep Tendon Reflex & Clonus Assessment Deep Tendon Reflex Left Achilles Deep Tendon Reflex 3+ Normal But Brisk Left Patellar Deep Tendon Reflex 3+ Normal But Brisk Ankle Clonus Left Clonus Assessment 3 Beats Muscle Tone Tone Assessment Left Lower Extremity Flexor Tone Description Mild Hypotonicity PT-OP-M Strength Start: 09/17/19 18:00 Freq: Status: Active Protocol: Document 08/04/20 13:45 DCW (Rec: 08/04/20 14:13 DCW [id number]) Hip Strength Hip Manual Muscle Testing Left Flexion (L2) 3+ Fair+ Extension (S1) 3 Fair Abduction 3 Fair Adduction 4 Good External Rotation 3+ Fair+ Internal Rotation 3+ Fair+ Knee Strength Knee Manual Muscle Testing Left Flexion (S2) 4- Good- Extension (L3) 4+ Good+ Ankle/Foot Strength Ankle and Foot Manual Muscle Testing Left Dorsiflexion (L4) 4 Good Plantarflexion (S1) 3+ Fair+ Inversion 3+ Fair+ Eversion (S1) 3 Fair PT-OP-Q Treatments Start: 09/17/19 18:00 Freq: Status: Active Protocol: Document 08/04/20 13:45 DCW (Rec: 08/04/20 15:01 DCW [id number]) Neuro Re-Education Treatment Balance Activities Standing Balance Details Testin MWT, Adler, TUG, MMT , Sensory PT-OP-T Assessment and Plan Start: 09/17/19 18:00 Freq: Status: Active Protocol: Document 08/04/20 13:45 DCW (Rec: 08/04/20 15:01 DCW [id number]) Physical Therapy Assessment Impairments Impairments Activity Tolerance,Balance, Coordination,Functional Activities,Functional Mobility ,Gait,Pain,ROM,Sensation, Strength,Tone,Transfers Goals Six Impairment Decreased Static Balance Short Term Goal (STG) Pt to score <9 seconds on TUG STG Duration 09/13/20 - Improving (9.05 seconds) Half-Way Goal (LTG) MET - Pt to score 35/56 or better on the Adler Balance NEW GOAL - Pt to score 45/56 or better on the Adler Balance Scale LTG Duration 11/03/20 Five Impairment Pt uses R rail and step-over gait pattern ascending stairs Molecular Technologist Goal (LTG) Pt to ascend/descend stairs independently without use of rail LTG Duration 11/13/20 - Improving Four Impairment Pt demonstrates strength impairment throughout left LE Molecular Technologist Goal (LTG) Pt to display MMT >3+/5 through L LE LTG Duration 11/13/20 - Improving Three Impairment Pt SBA for transfers and bed mobility d/t Left Neglect Half-Way Goal (LTG) Pt to demonstrate independent transfers and bed mobility with an ability to address left LE and UE 80% of the time LTG Duration Met Two Impairment Pt ambulates 280' CGA /s an AD Short Term Goal (STG) Pt to ambulate 400' SBA independently STG Duration Met Molecular Technologist Goal (LTG) Pt to ambulate 800' during 6 MWT Independently without SBA LTG Duration 11/03/20 - Improving (1132' SBA) One Impairment Pt does not have an appropriate home exercise program Short Term Goal (STG) Pt to be independent and compliant with an appropriate HEP STG Duration Met Assessment Summary Assessment Pt showing improvement in nearly all areas. 6 MWT improved from 870' to 1132' SBA, TUG decreased from 10.82 sec to 9.05 sec. Improved MMT, Neuro testing appears to be improving, with clonus testing showing a decrease from sustained clonus to 3-4 beats. Pt able to score 39/56 on Adler Balance. Continued skilled therapy indicated to allow pt to progress in gait, balance, strength, and sensation recovery following his CVA on 04/04/19. Physical Therapy Plan Frequency and Duration Frequency of Treatment 2x/Week Duration of Treatment 3 months Plan of Care Start Date 08/04/20 Plan of Care End Date 11/03/20 Therapeutic Interventions Therapeutic Interventions Aquatic Therapy,Balance Training,Coordination Training ,Gait Training,Home Exercise Program,Manual Therapy, Neuromuscular Re-education, Patient/Caregiver Education, Self-Care/Home Management, Therapeutic Activities, Therapeutic Exercises Modalities Cold Pack/Ice Massage,Electric Stimulation,Hot Packs, Ultrasound Next Visit Focus/Plan Next Note Type Treatment Note Next Visit Plan Continue to challenge, continue strengthening, balance and gait training with NMR. Continue deep water for cardio training and core stabilization. Focus on bilateral knee extension in shallow water gait training
--- NOTE | 2020-08-04 15:03 | PT.OPPOC ---
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) Visit Care Team Role Provider Type Yesy Cortes MD Attending Provider Physician Primary Care Provider Specialty: Internal Medicine Address: [address] [place] [address], [facility] Email: [email or web address] [email or web address] Plan Of Care PT-OP-T Assessment and Plan Start: 09/17/19 18:00 Freq: Status: Active Protocol: Document 08/04/20 13:45 DCW (Rec: 08/04/20 15:01 DCW [id number]) Physical Therapy Assessment Impairments Impairments Activity Tolerance,Balance, Coordination,Functional Activities,Functional Mobility ,Gait,Pain,ROM,Sensation, Strength,Tone,Transfers Goals Six Impairment Decreased Static Balance Short Term Goal (STG) Pt to score <9 seconds on TUG STG Duration 09/13/20 - Improving (9.05 seconds) Wool Hat Finisher Goal (LTG) MET - Pt to score 35/56 or better on the Adler Balance NEW GOAL - Pt to score 45/56 or better on the Adler Balance Scale LTG Duration 11/03/20 Five Impairment Pt uses R rail and step-over gait pattern ascending stairs Intermediate Goal (LTG) Pt to ascend/descend stairs independently without use of rail LTG Duration 11/13/20 - Improving Four Impairment Pt demonstrates strength impairment throughout left LE Intermediate Goal (LTG) Pt to display MMT >3+/5 through L LE LTG Duration 11/13/20 - Improving Three Impairment Pt SBA for transfers and bed mobility d/t Left Neglect Wool Hat Finisher Goal (LTG) Pt to demonstrate independent transfers and bed mobility with an ability to address left LE and UE 80% of the time LTG Duration Met Two Impairment Pt ambulates 280' CGA /s an AD Short Term Goal (STG) Pt to ambulate 400' SBA independently STG Duration Met Wool Hat Finisher Goal (LTG) Pt to ambulate 800' during 6 MWT Independently without SBA LTG Duration 11/03/20 - Improving (1132' SBA) One Impairment Pt does not have an appropriate home exercise program Short Term Goal (STG) Pt to be independent and compliant with an appropriate HEP STG Duration Met Assessment Summary Assessment Pt showing improvement in nearly all areas. 6 MWT improved from 870' to 1132' SBA, TUG decreased from 10.82 sec to 9.05 sec. Improved MMT, Neuro testing appears to be improving, with clonus testing showing a decrease from sustained clonus to 3-4 beats. Pt able to score 39/56 on Adler Balance. Continued skilled therapy indicated to allow pt to progress in gait, balance, strength, and sensation recovery following his CVA on 04/04/19. Physical Therapy Plan Frequency and Duration Frequency of Treatment 2x/Week Duration of Treatment 3 months Plan of Care Start Date 08/04/20 Plan of Care End Date 11/03/20 Therapeutic Interventions Therapeutic Interventions Aquatic Therapy,Balance Training,Coordination Training ,Gait Training,Home Exercise Program,Manual Therapy, Neuromuscular Re-education, Patient/Caregiver Education, Self-Care/Home Management, Therapeutic Activities, Therapeutic Exercises Modalities Cold Pack/Ice Massage,Electric Stimulation,Hot Packs, Ultrasound Next Visit Focus/Plan Next Note Type Treatment Note Next Visit Plan Continue to challenge, continue strengthening, balance and gait training with NMR. Continue deep water for cardio training and core stabilization. Focus on bilateral knee extension in shallow water gait training Plan of Care Dates Plan of Care Start Date 08/04/20 Plan of Care End Date 11/03/20 Electronically Signed by: Osbaldo Barrios, PT 08/04/20 [id number] Please Sign and Return: I have reviewed this Plan of Care and certify that the skilled therapy services above are required to meet the patient?s needs. Physician Signature Date Printed Name and Credentials Clinical Instructor Signature Printed Name and Credentials
--- NOTE | 2020-08-09 14:19 | PT.OTN ---
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) Physical Therapy Treatment Note PT-OP-A Visit Information Start: 09/17/19 18:00 Freq: Status: Active Protocol: Document 08/09/20 13:45 DCW (Rec: 08/09/20 14:19 DCW [id number]) Out-Patient Physical Therapy Visit Information Visit Information Visit Type Treatment Note Visit Start Time 13:45 Visit Stop Time 14:30 Total Visit Minutes 45 Visit Number 63 Number of BASEBALL GLOVE STUFFER Visits 0 Evaluation Information Evaluation Date 09/17/19 PT-OP-B Current Condition Start: 09/17/19 18:00 Freq: Status: Active Protocol: Document 09/17/19 12:00 DCW (Rec: 09/18/19 10:29 DCW [id number]) Current Condition History of Current Condition Onset Date 04/14/19 Current Complaints Hemiparesis secondary to CVA History of Current Condition Pt is a 69 year old male presenting to skilled outpatient physical therapy with left-side neglect, hemiparesis, loss of independence, and difficulty walking following an intraparenchymal hemorrhage on 04/14/19. Pt was transferred from [facility] to [facility], where a craniotomy was performed on 04/16/19. Pt completed 7 weeks of rehab/ recovery at [facility], and then underwent a second surgery on 06/26/19 to replace the skull fragment. Pt was then at an acute rehab facility 06/30-07/18/19, and since then has been receiving home health physical therapy. Pt presents today with limited left-sided function, left visual and physical neglect, difficulty with transfers, decreased activity tolerance, decreased gait, and many other secondary effects following his CVA. Pt has been working on ambulation with a vale walker with home health, and his states he has walked around 100' a few times, but always with a therapist, as she does not feel comfortable walking with him yet. Pt exclusively gets around at time of evaluation in a manual wheelchair. Pt's transfers have been going fairly well, with his caregivers performing CGA, however pt will occasionally need assistance with placement of his left UE and LE due to neglect. Pt's biggest complaint at the moment is leg pain, his reports they have tried PT, Massage, CBD il, Tylenol, Oxycodine, and Gabapentin, all with minimal benefit. Prior to CVA, pt was fully independent in all activities. Pt and have garegivers 8 hrs a day for assistance. Prior Treatments and Tests Craniotomy 04/16/19, Acute rehab, Skull fragment replacement 06/26/19, home health PT Prior Functional Status Baseline Function- ADL's Independent Baseline Function- Mobility Independent PT-OP-C Subjective Start: 09/17/19 18:00 Freq: Status: Active Protocol: Document 08/09/20 13:45 DCW (Rec: 08/09/20 14:19 DCW [id number]) OP-PT Subjective Patient Comments Patient Comments Pt doing well today, feels rested following his weekend. PT-OP-D Balance Start: 08/04/20 14:14 Freq: Status: Active Protocol: Document 08/04/20 13:45 DCW (Rec: 08/04/20 14:28 DCW [id number]) Balance Tests Adler Balance Test Adler Balance Test Score 39/56 Adler Impairment Rating 20 to 39% Impaired (Score 34- 44) Adler Balance Assessment Evaluation Sitting to Standing Ability Independent w/out Hands Unsupported Stance Supervision- 2 minutes Sitting Unsupported, Feet on Floor Safely- 2 minutes Standing to Sitting Ability Assist, Control w/Hands Transfer Ability Safely, Hand Use Unsupported Stance- Eyes Closed Supervision, 10 seconds Unsupported Stance- Eyes Open Supervision to maintain Reaching Forward Standing Safely, 5 inches Pick- Up Object From Floor Supervision Look Behind Shoulder - Standing Shifts Weight Unilateral Turning 360 Degrees Turns slowly, but safely Unsupported Stance, Alternating Feet on 4 Steps w/Supervision Stair Unsupported Tandem Stance Small Step- 30 seconds Unilateral Leg Stance Lifts Leg/Unable to Hold Total Score Adler Total Score (out of 56 points) 39 Adler Impairment Rating 20 to 39% Impaired (Score 34- 44) PT-OP-E Functional Tests Start: 05/04/20 15:15 Freq: Status: Active Protocol: Document 08/04/20 13:45 DCW (Rec: 08/04/20 14:13 DCW [id number]) Functional Tests 6 Minute Walk Test Distance 1132' Device Used none Comments 3.14 ft/sec Timed Up and Go (TUG) Score 9.05 seconds Comments 3-trial average (10.03, 8.96, 8.16) TUG Impairment Rating 0% Impaired (Score 10) PT-OP-G Mobility & Gait Start: 09/17/19 18:00 Freq: Status: Active Protocol: Document 08/04/20 13:45 DCW (Rec: 08/04/20 14:13 DCW [id number]) OP Mobility Evaluation Bed Mobility Rolling Independent Supine to and from Sit Independent Transfers Sit to Stand SBA Bed to Chair Transfers SBA OP Gait Assessment Gait Gait Assistance Required: Standby Assistance Distance (Feet) 1,132 Assistive Devices Assistive Device None Gait Deviations General Gait Pattern Antalgic,Ataxic,Decreased Feet Clearance,Flexed Trunk, Lateral Trunk Lean Factors Limiting Gait Function Factors Limiting Gait Function Abnormal Tonal Influences, Decreased Activity Tolerance, Decreased Sensation,Decreased Strength,Incoordination,Poor Balance,Poor Safety Awareness Stair Climbing Evaluation Evaluation Level of Assist On Stairs Contact Guard Assistance Devices Stair Climbing Assistive Devices Right Railing Technique/Endurance Stair Climbing Direction Ascend and Descend Stair Climbing Technique Step Over Step,Step to Step Number of Steps Climbed 4 Stair Climbing Set # Repetitions (reps) 6 Comments Stair Climbing Comments Step-over ascending, step-to descending. Minimal scissoring with left during descent. PT-OP-H Neuro Start: 09/17/19 18:00 Freq: Status: Active Protocol: Document 08/04/20 13:45 DCW (Rec: 08/04/20 14:13 DCW [id number]) Sensation Evaluation Gross Sensation Gross Sensation Left UE Impaired,Left LE Impaired Sensation Description Paresthesia,Numbness,Pain Location Details Left Leg Light Touch Impaired Sharp/Dull Impaired Deep Pressure Intact/Normal Proprioception (Position) Impaired Kinesthesia (Movement) Impaired Deep Tendon Reflex & Clonus Assessment Deep Tendon Reflex Left Achilles Deep Tendon Reflex 3+ Normal But Brisk Left Patellar Deep Tendon Reflex 3+ Normal But Brisk Ankle Clonus Left Clonus Assessment 3 Beats Muscle Tone Tone Assessment Left Lower Extremity Flexor Tone Description Mild Hypotonicity PT-OP-M Strength Start: 09/17/19 18:00 Freq: Status: Active Protocol: Document 08/04/20 13:45 DCW (Rec: 08/04/20 14:13 DCW [id number]) Hip Strength Hip Manual Muscle Testing Left Flexion (L2) 3+ Fair+ Extension (S1) 3 Fair Abduction 3 Fair Adduction 4 Good External Rotation 3+ Fair+ Internal Rotation 3+ Fair+ Knee Strength Knee Manual Muscle Testing Left Flexion (S2) 4- Good- Extension (L3) 4+ Good+ Ankle/Foot Strength Ankle and Foot Manual Muscle Testing Left Dorsiflexion (L4) 4 Good Plantarflexion (S1) 3+ Fair+ Inversion 3+ Fair+ Eversion (S1) 3 Fair PT-OP-Q Treatments Start: 09/17/19 18:00 Freq: Status: Active Protocol: Document 08/09/20 13:45 DCW (Rec: 08/09/20 14:19 DCW [id number]) Gym Equipment Shuttle Recovery Unilateral Heel Raises Details Left Resistance 25# Reps/Time calf stretch at end Unilateral Squats Details Left Resistance 62# Shuttle Recovery Platform Stable Bilateral Squats Resistance 100# Shuttle Recovery Platform Stable Shuttle Balance Red Details Wide [id number] Comments Min Ax1 Gait Training Gait Activity No AD Description No AD Device Used None Level of Assistance SBA Distance/Duration 930' x1 Comments VCs to promote heel-toe gait, extend left knee during stance phase PT-OP-R Modalities Start: 09/17/19 18:00 Freq: Status: Active Protocol: Document 08/09/20 13:45 DCW (Rec: 08/09/20 14:19 DCW [id number]) Electric Stimulation Electric Stimulation Interferential Current (IFC) Body Location L ant ankle Duration (Minutes) 15 Patient Position Sitting Combined With Heat/Cold Cold Pack PT-OP-S Aquatic Treatment Start: 09/17/19 18:00 Freq: Status: Active Protocol: Document 01/30/20 12:30 LJ (Rec: 01/30/20 14:54 LJ [id number]) Aquatics Treatment Pool Entry/Exit Pool Entry/Exit Method Lift Assistance Minimal Assistance Water Walking Slow motion Water Level Chest Level Walking Equipment wet vest, UE float, #2.5 ankle wt Level of Assistance Standby Assistance,Contact Guard Assistance,Moderate Assistance Comments emphasis on LLE extension stance phase Gibson March Water Level Chest Level Walking Equipment wet vest, UE float, #2.5 ankle wt Level of Assistance Standby Assistance,Contact Guard Assistance,Moderate Assistance,Verbal Cues Forward with emphasis on reciprocal gait pattern Water Level Chest Level Level of Assistance Standby Assistance,Contact Guard Assistance,Minimal Assistance,Verbal Cues Comments wetvest, sm float on LUE, #3. 75 ankle wt on LLE start stop walking forward and backward Water Level Chest Level Walking Equipment vest Level of Assistance Contact Guard Assistance, Verbal Cues Comments wetvest, sm float on LUE, #3. 75 ankle wt on LLE Sideways Water Level Chest Level Walking Equipment wet vest, UE float, #2.5 ankle wt Level of Assistance Standby Assistance,Contact Guard Assistance,Minimal Assistance,Verbal Cues Lower Extremity Exercises SL aquats Details HH on wall Body Position Standing Water Level Waist Level Equipment wetvest Reps/Duration 2x10 LLE Comments VC to extend knee knee extensions Details seated in lift chair Equipment Ankle Weight- 5.0# Reps/Duration 20 B Comments seated in lift SLS Details bracing LLE Body Position Standing Water Level Chest Level Equipment vest Reps/Duration 1 min marching at wall Water Level Chest Level Reps/Duration 2 min Comments opposite UE/LE tapping wall squats Body Position Standing Water Level Chest Level Reps/Duration 20x Lower Extremity Stretches adductors Comments seated in chair Gastroc Body Position Sitting Reps/Duration 2 x 45 sec B Comments manual assist hip flexors Details at wall Body Position Standing Water Level Waist Level Reps/Duration 2x45 Comments manually assisted HS Details at wall Body Position Sitting Water Level Waist Level Equipment wet vest Reps/Duration 2x45 Comments sitting in lift chair assisted Upper Extremity Exercises breastroke UE's Body Position Standing Water Level Chest Level Reps/Duration 3 min Comments during walking and deep water hor ab/ad Water Level Chest Level Comments during side walking, CGA Balance step ups Details step ups/down using boxes Body Position Standing Water Level Waist Level Equipment 8 boxes Comments mod verbal cues for coordination [place] Activities [place] Activities Bicycle,Cross Country Equipment wet vest, white noodle Duration 7 min Comments Guy and cues for vertical alignmernt. PT-OP-T Assessment and Plan Start: 09/17/19 18:00 Freq: Status: Active Protocol: Document 08/09/20 13:45 DCW (Rec: 08/09/20 14:19 DCW [id number]) Physical Therapy Assessment Impairments Impairments Activity Tolerance,Balance, Coordination,Functional Activities,Functional Mobility ,Gait,Pain,ROM,Sensation, Strength,Tone,Transfers Goals Six Impairment Decreased Static Balance Short Term Goal (STG) Pt to score <9 seconds on TUG STG Duration 09/13/20 - Improving (9.05 seconds) Perfume Compounder Goal (LTG) MET - Pt to score 35/56 or better on the Adler Balance NEW GOAL - Pt to score 45/56 or better on the Adler Balance Scale LTG Duration 11/03/20 Five Impairment Pt uses R rail and step-over gait pattern ascending stairs Senior Care Goal (LTG) Pt to ascend/descend stairs independently without use of rail LTG Duration 11/13/20 - Improving Four Impairment Pt demonstrates strength impairment throughout left LE Senior Care Goal (LTG) Pt to display MMT >3+/5 through L LE LTG Duration 11/13/20 - Improving Three Impairment Pt SBA for transfers and bed mobility d/t Left Neglect Perfume Compounder Goal (LTG) Pt to demonstrate independent transfers and bed mobility with an ability to address left LE and UE 80% of the time LTG Duration Met Two Impairment Pt ambulates 280' CGA /s an AD Short Term Goal (STG) Pt to ambulate 400' SBA independently STG Duration Met Senior Care Goal (LTG) Pt to ambulate 800' during 6 MWT Independently without SBA LTG Duration 11/03/20 - Improving (1132' SBA) One Impairment Pt does not have an appropriate home exercise program Short Term Goal (STG) Pt to be independent and compliant with an appropriate HEP STG Duration Met Assessment Summary Assessment Pt tolerating increased activity today, showing improvement with balance and strength. Physical Therapy Plan Frequency and Duration Frequency of Treatment 2x/Week Duration of Treatment 3 months Plan of Care Start Date 08/04/20 Plan of Care End Date 11/03/20 Therapeutic Interventions Therapeutic Interventions Aquatic Therapy,Balance Training,Coordination Training ,Gait Training,Home Exercise Program,Manual Therapy, Neuromuscular Re-education, Patient/Caregiver Education, Self-Care/Home Management, Therapeutic Activities, Therapeutic Exercises Modalities Cold Pack/Ice Massage,Electric Stimulation,Hot Packs, Ultrasound Next Visit Focus/Plan Next Note Type Treatment Note Next Visit Plan Continue to challenge, continue strengthening, balance and gait training with NMR. Continue deep water for cardio training and core stabilization. Focus on bilateral knee extension in shallow water gait training
--- NOTE | 2020-08-11 14:22 | PT.OTN ---
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) Physical Therapy Treatment Note PT-OP-A Visit Information Start: 09/17/19 18:00 Freq: Status: Active Protocol: Document 08/11/20 13:47 DCW (Rec: 08/11/20 14:21 DCW [id number]) Out-Patient Physical Therapy Visit Information Visit Information Visit Type Treatment Note Visit Start Time 13:47 Visit Stop Time 14:30 Total Visit Minutes 43 Visit Number 64 Number of DENTIST/OWNER Visits 0 Evaluation Information Evaluation Date 09/17/19 PT-OP-B Current Condition Start: 09/17/19 18:00 Freq: Status: Active Protocol: Document 09/17/19 12:00 DCW (Rec: 09/18/19 10:29 DCW [id number]) Current Condition History of Current Condition Onset Date 04/14/19 Current Complaints Hemiparesis secondary to CVA History of Current Condition Pt is a 69 year old male presenting to skilled outpatient physical therapy with left-side neglect, hemiparesis, loss of independence, and difficulty walking following an intraparenchymal hemorrhage on 04/14/19. Pt was transferred from [facility] to [facility], where a craniotomy was performed on 04/16/19. Pt completed 7 weeks of rehab/ recovery at [facility], and then underwent a second surgery on 06/26/19 to replace the skull fragment. Pt was then at an acute rehab facility 06/30-07/18/19, and since then has been receiving home health physical therapy. Pt presents today with limited left-sided function, left visual and physical neglect, difficulty with transfers, decreased activity tolerance, decreased gait, and many other secondary effects following his CVA. Pt has been working on ambulation with a vale walker with home health, and his states he has walked around 100' a few times, but always with a therapist, as she does not feel comfortable walking with him yet. Pt exclusively gets around at time of evaluation in a manual wheelchair. Pt's transfers have been going fairly well, with his caregivers performing CGA, however pt will occasionally need assistance with placement of his left UE and LE due to neglect. Pt's biggest complaint at the moment is leg pain, his reports they have tried PT, Massage, CBD il, Tylenol, Oxycodine, and Gabapentin, all with minimal benefit. Prior to CVA, pt was fully independent in all activities. Pt and have garegivers 8 hrs a day for assistance. Prior Treatments and Tests Craniotomy 04/16/19, Acute rehab, Skull fragment replacement 06/26/19, home health PT Prior Functional Status Baseline Function- ADL's Independent Baseline Function- Mobility Independent PT-OP-C Subjective Start: 09/17/19 18:00 Freq: Status: Active Protocol: Document 08/11/20 13:47 DCW (Rec: 08/11/20 14:21 DCW [id number]) OP-PT Subjective Patient Comments Patient Comments I'm good today. PT-OP-D Balance Start: 08/04/20 14:14 Freq: Status: Active Protocol: Document 08/04/20 13:45 DCW (Rec: 08/04/20 14:28 DCW [id number]) Balance Tests Adler Balance Test Adler Balance Test Score 39/56 Adler Impairment Rating 20 to 39% Impaired (Score 34- 44) Adler Balance Assessment Evaluation Sitting to Standing Ability Independent w/out Hands Unsupported Stance Supervision- 2 minutes Sitting Unsupported, Feet on Floor Safely- 2 minutes Standing to Sitting Ability Assist, Control w/Hands Transfer Ability Safely, Hand Use Unsupported Stance- Eyes Closed Supervision, 10 seconds Unsupported Stance- Eyes Open Supervision to maintain Reaching Forward Standing Safely, 5 inches Pick- Up Object From Floor Supervision Look Behind Shoulder - Standing Shifts Weight Unilateral Turning 360 Degrees Turns slowly, but safely Unsupported Stance, Alternating Feet on 4 Steps w/Supervision Stair Unsupported Tandem Stance Small Step- 30 seconds Unilateral Leg Stance Lifts Leg/Unable to Hold Total Score Adler Total Score (out of 56 points) 39 Adler Impairment Rating 20 to 39% Impaired (Score 34- 44) PT-OP-E Functional Tests Start: 05/04/20 15:15 Freq: Status: Active Protocol: Document 08/04/20 13:45 DCW (Rec: 08/04/20 14:13 DCW [id number]) Functional Tests 6 Minute Walk Test Distance 1132' Device Used none Comments 3.14 ft/sec Timed Up and Go (TUG) Score 9.05 seconds Comments 3-trial average (10.03, 8.96, 8.16) TUG Impairment Rating 0% Impaired (Score 10) PT-OP-G Mobility & Gait Start: 09/17/19 18:00 Freq: Status: Active Protocol: Document 08/04/20 13:45 DCW (Rec: 08/04/20 14:13 DCW [id number]) OP Mobility Evaluation Bed Mobility Rolling Independent Supine to and from Sit Independent Transfers Sit to Stand SBA Bed to Chair Transfers SBA OP Gait Assessment Gait Gait Assistance Required: Standby Assistance Distance (Feet) 1,132 Assistive Devices Assistive Device None Gait Deviations General Gait Pattern Antalgic,Ataxic,Decreased Feet Clearance,Flexed Trunk, Lateral Trunk Lean Factors Limiting Gait Function Factors Limiting Gait Function Abnormal Tonal Influences, Decreased Activity Tolerance, Decreased Sensation,Decreased Strength,Incoordination,Poor Balance,Poor Safety Awareness Stair Climbing Evaluation Evaluation Level of Assist On Stairs Contact Guard Assistance Devices Stair Climbing Assistive Devices Right Railing Technique/Endurance Stair Climbing Direction Ascend and Descend Stair Climbing Technique Step Over Step,Step to Step Number of Steps Climbed 4 Stair Climbing Set # Repetitions (reps) 6 Comments Stair Climbing Comments Step-over ascending, step-to descending. Minimal scissoring with left during descent. PT-OP-H Neuro Start: 09/17/19 18:00 Freq: Status: Active Protocol: Document 08/04/20 13:45 DCW (Rec: 08/04/20 14:13 DCW [id number]) Sensation Evaluation Gross Sensation Gross Sensation Left UE Impaired,Left LE Impaired Sensation Description Paresthesia,Numbness,Pain Location Details Left Leg Light Touch Impaired Sharp/Dull Impaired Deep Pressure Intact/Normal Proprioception (Position) Impaired Kinesthesia (Movement) Impaired Deep Tendon Reflex & Clonus Assessment Deep Tendon Reflex Left Achilles Deep Tendon Reflex 3+ Normal But Brisk Left Patellar Deep Tendon Reflex 3+ Normal But Brisk Ankle Clonus Left Clonus Assessment 3 Beats Muscle Tone Tone Assessment Left Lower Extremity Flexor Tone Description Mild Hypotonicity PT-OP-M Strength Start: 09/17/19 18:00 Freq: Status: Active Protocol: Document 08/04/20 13:45 DCW (Rec: 08/04/20 14:13 DCW [id number]) Hip Strength Hip Manual Muscle Testing Left Flexion (L2) 3+ Fair+ Extension (S1) 3 Fair Abduction 3 Fair Adduction 4 Good External Rotation 3+ Fair+ Internal Rotation 3+ Fair+ Knee Strength Knee Manual Muscle Testing Left Flexion (S2) 4- Good- Extension (L3) 4+ Good+ Ankle/Foot Strength Ankle and Foot Manual Muscle Testing Left Dorsiflexion (L4) 4 Good Plantarflexion (S1) 3+ Fair+ Inversion 3+ Fair+ Eversion (S1) 3 Fair PT-OP-Q Treatments Start: 09/17/19 18:00 Freq: Status: Active Protocol: Document 08/11/20 13:47 DCW (Rec: 08/11/20 14:21 DCW [id number]) Gym Equipment Shuttle Balance Red Details Wide [email or web address] Comments Min Ax1 Therapeutic Exercises Standing Exercises Hip Extension Standing Exercise Name Hip Extension Side bilateral Resistance Yellow Equipment Used T-band Other Exercises Sit<->Stand Other Exercise Name Sit<->Stand Equipment Used // bars Comments VCs for foot placement and L knee extension Side-stepping Other Exercise Name Side-stepping at rail - CGA Resistance Yellow Equipment Used T-band Comments B UE use Gait Training Gait Activity No AD Description No AD Device Used None Level of Assistance SBA Distance/Duration 950' x1 Comments VCs to promote heel-toe gait, extend left knee during stance phase PT-OP-R Modalities Start: 09/17/19 18:00 Freq: Status: Active Protocol: Document 08/11/20 13:47 DCW (Rec: 08/11/20 14:21 DCW [id number]) Electric Stimulation Electric Stimulation Interferential Current (IFC) Body Location L ant ankle Duration (Minutes) 15 Patient Position Sitting Combined With Heat/Cold Cold Pack PT-OP-S Aquatic Treatment Start: 09/17/19 18:00 Freq: Status: Active Protocol: Document 01/30/20 12:30 LJ (Rec: 01/30/20 14:54 LJ [id number]) Aquatics Treatment Pool Entry/Exit Pool Entry/Exit Method Lift Assistance Minimal Assistance Water Walking Slow motion Water Level Chest Level Walking Equipment wet vest, UE float, #2.5 ankle wt Level of Assistance Standby Assistance,Contact Guard Assistance,Moderate Assistance Comments emphasis on LLE extension stance phase [place] March Water Level Chest Level Walking Equipment wet vest, UE float, #2.5 ankle wt Level of Assistance Standby Assistance,Contact Guard Assistance,Moderate Assistance,Verbal Cues Forward with emphasis on reciprocal gait pattern Water Level Chest Level Level of Assistance Standby Assistance,Contact Guard Assistance,Minimal Assistance,Verbal Cues Comments wetvest, sm float on LUE, #3. 75 ankle wt on LLE start stop walking forward and backward Water Level Chest Level Walking Equipment vest Level of Assistance Contact Guard Assistance, Verbal Cues Comments wetvest, sm float on LUE, #3. 75 ankle wt on LLE Sideways Water Level Chest Level Walking Equipment wet vest, UE float, #2.5 ankle wt Level of Assistance Standby Assistance,Contact Guard Assistance,Minimal Assistance,Verbal Cues Lower Extremity Exercises SL aquats Details HH on wall Body Position Standing Water Level Waist Level Equipment wetvest Reps/Duration 2x10 LLE Comments VC to extend knee knee extensions Details seated in lift chair Equipment Ankle Weight- 5.0# Reps/Duration 20 B Comments seated in lift SLS Details bracing LLE Body Position Standing Water Level Chest Level Equipment vest Reps/Duration 1 min marching at wall Water Level Chest Level Reps/Duration 2 min Comments opposite UE/LE tapping wall squats Body Position Standing Water Level Chest Level Reps/Duration 20x Lower Extremity Stretches adductors Comments seated in chair Gastroc Body Position Sitting Reps/Duration 2 x 45 sec B Comments manual assist hip flexors Details at wall Body Position Standing Water Level Waist Level Reps/Duration 2x45 Comments manually assisted HS Details at wall Body Position Sitting Water Level Waist Level Equipment wet vest Reps/Duration 2x45 Comments sitting in lift chair assisted Upper Extremity Exercises breastroke UE's Body Position Standing Water Level Chest Level Reps/Duration 3 min Comments during walking and deep water hor ab/ad Water Level Chest Level Comments during side walking, CGA Balance step ups Details step ups/down using boxes Body Position Standing Water Level Waist Level Equipment 8 boxes Comments mod verbal cues for coordination [place] Activities [place] Activities Bicycle,Cross Country Equipment wet vest, white noodle Duration 7 min Comments Guy and cues for vertical alignmernt. PT-OP-T Assessment and Plan Start: 09/17/19 18:00 Freq: Status: Active Protocol: Document 08/11/20 13:47 DCW (Rec: 08/11/20 14:21 DCW [id number]) Physical Therapy Assessment Impairments Impairments Activity Tolerance,Balance, Coordination,Functional Activities,Functional Mobility ,Gait,Pain,ROM,Sensation, Strength,Tone,Transfers Goals Six Impairment Decreased Static Balance Short Term Goal (STG) Pt to score <9 seconds on TUG STG Duration 09/13/20 - Improving (9.05 seconds) Long-Term Goal (LTG) MET - Pt to score 35/56 or better on the Adler Balance NEW GOAL - Pt to score 45/56 or better on the Adler Balance Scale LTG Duration 11/03/20 Five Impairment Pt uses R rail and step-over gait pattern ascending stairs Hand Router Operator Goal (LTG) Pt to ascend/descend stairs independently without use of rail LTG Duration 11/13/20 - Improving Four Impairment Pt demonstrates strength impairment throughout left LE Long-Term Goal (LTG) Pt to display MMT >3+/5 through L LE LTG Duration 11/13/20 - Improving Three Impairment Pt SBA for transfers and bed mobility d/t Left Neglect Long-Term Goal (LTG) Pt to demonstrate independent transfers and bed mobility with an ability to address left LE and UE 80% of the time LTG Duration Met Two Impairment Pt ambulates 280' CGA /s an AD Short Term Goal (STG) Pt to ambulate 400' SBA independently STG Duration Met Hand Router Operator Goal (LTG) Pt to ambulate 800' during 6 MWT Independently without SBA LTG Duration 11/03/20 - Improving (1132' SBA) One Impairment Pt does not have an appropriate home exercise program Short Term Goal (STG) Pt to be independent and compliant with an appropriate HEP STG Duration Met Assessment Summary Assessment Pt again needed treatment session cut short to fit in TherEx and E-stim to limit post-therapy L leg pain, as he has OT scheduled immediately following PT. Increased challenge on Shuttle balance today, pt tolerated well, but needed constant min Ax1 to maintain balance. Physical Therapy Plan Frequency and Duration Frequency of Treatment 2x/Week Duration of Treatment 3 months Plan of Care Start Date 08/04/20 Plan of Care End Date 11/03/20 Therapeutic Interventions Therapeutic Interventions Aquatic Therapy,Balance Training,Coordination Training ,Gait Training,Home Exercise Program,Manual Therapy, Neuromuscular Re-education, Patient/Caregiver Education, Self-Care/Home Management, Therapeutic Activities, Therapeutic Exercises Modalities Cold Pack/Ice Massage,Electric Stimulation,Hot Packs, Ultrasound Next Visit Focus/Plan Next Note Type Treatment Note Next Visit Plan Continue to challenge, continue strengthening, balance and gait training with NMR. Continue deep water for cardio training and core stabilization. Focus on bilateral knee extension in shallow water gait training
--- NOTE | 2020-08-16 14:23 | PT.OTN ---
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) Physical Therapy Treatment Note PT-OP-A Visit Information Start: 09/17/19 18:00 Freq: Status: Active Protocol: Document 08/16/20 13:45 DCW (Rec: 08/16/20 14:23 DCW [id number]) Out-Patient Physical Therapy Visit Information Visit Information Visit Type Treatment Note Visit Start Time 13:45 Visit Stop Time 14:30 Total Visit Minutes 45 Visit Number 65 Number of WIRELINE FIELD OPERATOR Visits 0 Evaluation Information Evaluation Date 09/17/19 PT-OP-B Current Condition Start: 09/17/19 18:00 Freq: Status: Active Protocol: Document 09/17/19 12:00 DCW (Rec: 09/18/19 10:29 DCW [id number]) Current Condition History of Current Condition Onset Date 04/14/19 Current Complaints Hemiparesis secondary to CVA History of Current Condition Pt is a 69 year old male presenting to skilled outpatient physical therapy with left-side neglect, hemiparesis, loss of independence, and difficulty walking following an intraparenchymal hemorrhage on 04/14/19. Pt was transferred from [facility] to [facility], where a craniotomy was performed on 04/16/19. Pt completed 7 weeks of rehab/ recovery at [facility], and then underwent a second surgery on 06/26/19 to replace the skull fragment. Pt was then at an acute rehab facility 06/30-07/18/19, and since then has been receiving home health physical therapy. Pt presents today with limited left-sided function, left visual and physical neglect, difficulty with transfers, decreased activity tolerance, decreased gait, and many other secondary effects following his CVA. Pt has been working on ambulation with a vale walker with home health, and his states he has walked around 100' a few times, but always with a therapist, as she does not feel comfortable walking with him yet. Pt exclusively gets around at time of evaluation in a manual wheelchair. Pt's transfers have been going fairly well, with his caregivers performing CGA, however pt will occasionally need assistance with placement of his left UE and LE due to neglect. Pt's biggest complaint at the moment is leg pain, his reports they have tried PT, Massage, CBD il, Tylenol, Oxycodine, and Gabapentin, all with minimal benefit. Prior to CVA, pt was fully independent in all activities. Pt and have garegivers 8 hrs a day for assistance. Prior Treatments and Tests Craniotomy 04/16/19, Acute rehab, Skull fragment replacement 06/26/19, home health PT Prior Functional Status Baseline Function- ADL's Independent Baseline Function- Mobility Independent PT-OP-C Subjective Start: 09/17/19 18:00 Freq: Status: Active Protocol: Document 08/16/20 13:45 DCW (Rec: 08/16/20 14:23 DCW [id number]) OP-PT Subjective Patient Comments Patient Comments Pt very happily reports today that this weekend, he was able to stand up to urinate in his bathroom for the first time since his intraparenchymal hemorrhage. PT-OP-D Balance Start: 08/04/20 14:14 Freq: Status: Active Protocol: Document 08/04/20 13:45 DCW (Rec: 08/04/20 14:28 DCW [id number]) Balance Tests Adler Balance Test Adler Balance Test Score 39/56 Adler Impairment Rating 20 to 39% Impaired (Score 34- 44) Adler Balance Assessment Evaluation Sitting to Standing Ability Independent w/out Hands Unsupported Stance Supervision- 2 minutes Sitting Unsupported, Feet on Floor Safely- 2 minutes Standing to Sitting Ability Assist, Control w/Hands Transfer Ability Safely, Hand Use Unsupported Stance- Eyes Closed Supervision, 10 seconds Unsupported Stance- Eyes Open Supervision to maintain Reaching Forward Standing Safely, 5 inches Pick- Up Object From Floor Supervision Look Behind Shoulder - Standing Shifts Weight Unilateral Turning 360 Degrees Turns slowly, but safely Unsupported Stance, Alternating Feet on 4 Steps w/Supervision Stair Unsupported Tandem Stance Small Step- 30 seconds Unilateral Leg Stance Lifts Leg/Unable to Hold Total Score Adler Total Score (out of 56 points) 39 Adler Impairment Rating 20 to 39% Impaired (Score 34- 44) PT-OP-E Functional Tests Start: 05/04/20 15:15 Freq: Status: Active Protocol: Document 08/04/20 13:45 DCW (Rec: 08/04/20 14:13 DCW [id number]) Functional Tests 6 Minute Walk Test Distance 1132' Device Used none Comments 3.14 ft/sec Timed Up and Go (TUG) Score 9.05 seconds Comments 3-trial average (10.03, 8.96, 8.16) TUG Impairment Rating 0% Impaired (Score 10) PT-OP-G Mobility & Gait Start: 09/17/19 18:00 Freq: Status: Active Protocol: Document 08/04/20 13:45 DCW (Rec: 08/04/20 14:13 DCW [id number]) OP Mobility Evaluation Bed Mobility Rolling Independent Supine to and from Sit Independent Transfers Sit to Stand SBA Bed to Chair Transfers SBA OP Gait Assessment Gait Gait Assistance Required: Standby Assistance Distance (Feet) 1,132 Assistive Devices Assistive Device None Gait Deviations General Gait Pattern Antalgic,Ataxic,Decreased Feet Clearance,Flexed Trunk, Lateral Trunk Lean Factors Limiting Gait Function Factors Limiting Gait Function Abnormal Tonal Influences, Decreased Activity Tolerance, Decreased Sensation,Decreased Strength,Incoordination,Poor Balance,Poor Safety Awareness Stair Climbing Evaluation Evaluation Level of Assist On Stairs Contact Guard Assistance Devices Stair Climbing Assistive Devices Right Railing Technique/Endurance Stair Climbing Direction Ascend and Descend Stair Climbing Technique Step Over Step,Step to Step Number of Steps Climbed 4 Stair Climbing Set # Repetitions (reps) 6 Comments Stair Climbing Comments Step-over ascending, step-to descending. Minimal scissoring with left during descent. PT-OP-H Neuro Start: 09/17/19 18:00 Freq: Status: Active Protocol: Document 08/04/20 13:45 DCW (Rec: 08/04/20 14:13 DCW [id number]) Sensation Evaluation Gross Sensation Gross Sensation Left UE Impaired,Left LE Impaired Sensation Description Paresthesia,Numbness,Pain Location Details Left Leg Light Touch Impaired Sharp/Dull Impaired Deep Pressure Intact/Normal Proprioception (Position) Impaired Kinesthesia (Movement) Impaired Deep Tendon Reflex & Clonus Assessment Deep Tendon Reflex Left Achilles Deep Tendon Reflex 3+ Normal But Brisk Left Patellar Deep Tendon Reflex 3+ Normal But Brisk Ankle Clonus Left Clonus Assessment 3 Beats Muscle Tone Tone Assessment Left Lower Extremity Flexor Tone Description Mild Hypotonicity PT-OP-M Strength Start: 09/17/19 18:00 Freq: Status: Active Protocol: Document 08/04/20 13:45 DCW (Rec: 08/04/20 14:13 DCW [id number]) Hip Strength Hip Manual Muscle Testing Left Flexion (L2) 3+ Fair+ Extension (S1) 3 Fair Abduction 3 Fair Adduction 4 Good External Rotation 3+ Fair+ Internal Rotation 3+ Fair+ Knee Strength Knee Manual Muscle Testing Left Flexion (S2) 4- Good- Extension (L3) 4+ Good+ Ankle/Foot Strength Ankle and Foot Manual Muscle Testing Left Dorsiflexion (L4) 4 Good Plantarflexion (S1) 3+ Fair+ Inversion 3+ Fair+ Eversion (S1) 3 Fair PT-OP-Q Treatments Start: 09/17/19 18:00 Freq: Status: Active Protocol: Document 08/16/20 13:45 DCW (Rec: 08/16/20 14:23 DCW [id number]) Gait Training Gait Activity No AD Description No AD Device Used None Level of Assistance SBA Distance/Duration 950' x1 Comments VCs to promote heel-toe gait, extend left knee during stance phase Neuro Re-Education Treatment Balance Activities Cone easter egg mchugh Details Visual scan for cone mchugh Cone transfers Details Bending down to pick balls up from cone, kick cone over, balltoss to target PT-OP-R Modalities Start: 09/17/19 18:00 Freq: Status: Active Protocol: Document 08/16/20 13:45 DCW (Rec: 08/16/20 14:23 DCW [id number]) Electric Stimulation Electric Stimulation Interferential Current (IFC) Body Location L ant ankle Duration (Minutes) 15 Patient Position Sitting Combined With Heat/Cold Cold Pack PT-OP-S Aquatic Treatment Start: 09/17/19 18:00 Freq: Status: Active Protocol: Document 01/30/20 12:30 LJ (Rec: 01/30/20 14:54 LJ [id number]) Aquatics Treatment Pool Entry/Exit Pool Entry/Exit Method Lift Assistance Minimal Assistance Water Walking Slow motion Water Level Chest Level Walking Equipment wet vest, UE float, #2.5 ankle wt Level of Assistance Standby Assistance,Contact Guard Assistance,Moderate Assistance Comments emphasis on LLE extension stance phase [place] March Water Level Chest Level Walking Equipment wet vest, UE float, #2.5 ankle wt Level of Assistance Standby Assistance,Contact Guard Assistance,Moderate Assistance,Verbal Cues Forward with emphasis on reciprocal gait pattern Water Level Chest Level Level of Assistance Standby Assistance,Contact Guard Assistance,Minimal Assistance,Verbal Cues Comments wetvest, sm float on LUE, #3. 75 ankle wt on LLE start stop walking forward and backward Water Level Chest Level Walking Equipment vest Level of Assistance Contact Guard Assistance, Verbal Cues Comments wetvest, sm float on LUE, #3. 75 ankle wt on LLE Sideways Water Level Chest Level Walking Equipment wet vest, UE float, #2.5 ankle wt Level of Assistance Standby Assistance,Contact Guard Assistance,Minimal Assistance,Verbal Cues Lower Extremity Exercises SL aquats Details HH on wall Body Position Standing Water Level Waist Level Equipment wetvest Reps/Duration 2x10 LLE Comments VC to extend knee knee extensions Details seated in lift chair Equipment Ankle Weight- 5.0# Reps/Duration 20 B Comments seated in lift SLS Details bracing LLE Body Position Standing Water Level Chest Level Equipment vest Reps/Duration 1 min marching at wall Water Level Chest Level Reps/Duration 2 min Comments opposite UE/LE tapping wall squats Body Position Standing Water Level Chest Level Reps/Duration 20x Lower Extremity Stretches adductors Comments seated in chair Gastroc Body Position Sitting Reps/Duration 2 x 45 sec B Comments manual assist hip flexors Details at wall Body Position Standing Water Level Waist Level Reps/Duration 2x45 Comments manually assisted HS Details at wall Body Position Sitting Water Level Waist Level Equipment wet vest Reps/Duration 2x45 Comments sitting in lift chair assisted Upper Extremity Exercises breastroke UE's Body Position Standing Water Level Chest Level Reps/Duration 3 min Comments during walking and deep water hor ab/ad Water Level Chest Level Comments during side walking, CGA Balance step ups Details step ups/down using boxes Body Position Standing Water Level Waist Level Equipment 8 boxes Comments mod verbal cues for coordination [place] Activities [place] Activities Bicycle,Cross Country Equipment wet vest, white noodle Duration 7 min Comments Guy and cues for vertical alignmernt. PT-OP-T Assessment and Plan Start: 09/17/19 18:00 Freq: Status: Active Protocol: Document 08/16/20 13:45 DCW (Rec: 08/16/20 14:23 DCW [id number]) Physical Therapy Assessment Impairments Impairments Activity Tolerance,Balance, Coordination,Functional Activities,Functional Mobility ,Gait,Pain,ROM,Sensation, Strength,Tone,Transfers Goals Six Impairment Decreased Static Balance Short Term Goal (STG) Pt to score <9 seconds on TUG STG Duration 09/13/20 - Improving (9.05 seconds) Associate Professor Of Radiology Goal (LTG) MET - Pt to score 35/56 or better on the Adler Balance NEW GOAL - Pt to score 45/56 or better on the Adler Balance Scale LTG Duration 11/03/20 Five Impairment Pt uses R rail and step-over gait pattern ascending stairs Senior Living Goal (LTG) Pt to ascend/descend stairs independently without use of rail LTG Duration 11/13/20 - Improving Four Impairment Pt demonstrates strength impairment throughout left LE Senior Living Goal (LTG) Pt to display MMT >3+/5 through L LE LTG Duration 11/13/20 - Improving Three Impairment Pt SBA for transfers and bed mobility d/t Left Neglect Associate Professor Of Radiology Goal (LTG) Pt to demonstrate independent transfers and bed mobility with an ability to address left LE and UE 80% of the time LTG Duration Met Two Impairment Pt ambulates 280' CGA /s an AD Short Term Goal (STG) Pt to ambulate 400' SBA independently STG Duration Met Associate Professor Of Radiology Goal (LTG) Pt to ambulate 800' during 6 MWT Independently without SBA LTG Duration 11/03/20 - Improving (1132' SBA) One Impairment Pt does not have an appropriate home exercise program Short Term Goal (STG) Pt to be independent and compliant with an appropriate HEP STG Duration Met Assessment Summary Assessment Pt showed excellent progress today in both activity tolerance and speed during visual scanning exercises and cone/ball pick-up. Pt able to complete at a fast speed and with much less fatigue than previous attempts. Physical Therapy Plan Frequency and Duration Frequency of Treatment 2x/Week Duration of Treatment 3 months Plan of Care Start Date 08/04/20 Plan of Care End Date 11/03/20 Therapeutic Interventions Therapeutic Interventions Aquatic Therapy,Balance Training,Coordination Training ,Gait Training,Home Exercise Program,Manual Therapy, Neuromuscular Re-education, Patient/Caregiver Education, Self-Care/Home Management, Therapeutic Activities, Therapeutic Exercises Modalities Cold Pack/Ice Massage,Electric Stimulation,Hot Packs, Ultrasound Next Visit Focus/Plan Next Note Type Treatment Note Next Visit Plan Continue to challenge, continue strengthening, balance and gait training with NMR. Continue deep water for cardio training and core stabilization. Focus on bilateral knee extension in shallow water gait training
--- NOTE | 2020-08-18 14:27 | PT.OTN ---
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) Physical Therapy Treatment Note PT-OP-A Visit Information Start: 09/17/19 18:00 Freq: Status: Active Protocol: Document 08/18/20 13:45 DCW (Rec: 08/18/20 14:26 DCW [id number]) Out-Patient Physical Therapy Visit Information Visit Information Visit Type Treatment Note Visit Start Time 13:45 Visit Stop Time 14:30 Total Visit Minutes 45 Visit Number 66 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 Pt was transferred from [facility] to [facility], where a craniotomy was performed on 04/16/19. Pt completed 7 weeks of rehab/ recovery at [facility], and then underwent a second surgery on 06/26/19 to replace the skull fragment. Pt was then at an acute rehab facility 06/30-07/18/19, and since then has been receiving home health physical therapy. Pt presents today with limited left-sided function, left visual and physical neglect, difficulty with transfers, decreased activity tolerance, decreased gait, and many other secondary effects following his CVA. Pt has been working on ambulation with a vale walker with home health, and his states he has walked around 100' a few times, but always with a therapist, as she does not feel comfortable walking with him yet. Pt exclusively gets around at time of evaluation in a manual wheelchair. Pt's transfers have been going fairly well, with his caregivers performing CGA, however pt will occasionally need assistance with placement of his left UE and LE due to neglect. Pt's biggest complaint at the moment is leg pain, his reports they have tried PT, Massage, CBD il, Tylenol, Oxycodine, and Gabapentin, all with minimal benefit. Prior to CVA, pt was fully independent in all activities. Pt and have garegivers 8 hrs a day for assistance. Prior Treatments and Tests Craniotomy 04/16/19, Acute rehab, Skull fragment replacement 06/26/19, home health PT Prior Functional Status Baseline Function- ADL's Independent Baseline Function- Mobility Independent PT-OP-C Subjective Start: 09/17/19 18:00 Freq: Status: Active Protocol: Document 08/18/20 13:45 DCW (Rec: 08/18/20 14:26 DCW [id number]) OP-PT Subjective Patient Comments Patient Comments Pt reports he is feeling pretty good today. PT-OP-D Balance Start: 08/04/20 14:14 Freq: Status: Active Protocol: Document 08/04/20 13:45 DCW (Rec: 08/04/20 14:28 DCW [id number]) Balance Tests Adler Balance Test Adler Balance Test Score 39/56 Adler Impairment Rating 20 to 39% Impaired (Score 34- 44) Adler Balance Assessment Evaluation Sitting to Standing Ability Independent w/out Hands Unsupported Stance Supervision- 2 minutes Sitting Unsupported, Feet on Floor Safely- 2 minutes Standing to Sitting Ability Assist, Control w/Hands Transfer Ability Safely, Hand Use Unsupported Stance- Eyes Closed Supervision, 10 seconds Unsupported Stance- Eyes Open Supervision to maintain Reaching Forward Standing Safely, 5 inches Pick- Up Object From Floor Supervision Look Behind Shoulder - Standing Shifts Weight Unilateral Turning 360 Degrees Turns slowly, but safely Unsupported Stance, Alternating Feet on 4 Steps w/Supervision Stair Unsupported Tandem Stance Small Step- 30 seconds Unilateral Leg Stance Lifts Leg/Unable to Hold Total Score Adler Total Score (out of 56 points) 39 Adler Impairment Rating 20 to 39% Impaired (Score 34- 44) PT-OP-E Functional Tests Start: 05/04/20 15:15 Freq: Status: Active Protocol: Document 08/04/20 13:45 DCW (Rec: 08/04/20 14:13 DCW [id number]) Functional Tests 6 Minute Walk Test Distance 1132' Device Used none Comments 3.14 ft/sec Timed Up and Go (TUG) Score 9.05 seconds Comments 3-trial average (10.03, 8.96, 8.16) TUG Impairment Rating 0% Impaired (Score 10) PT-OP-G Mobility & Gait Start: 09/17/19 18:00 Freq: Status: Active Protocol: Document 08/04/20 13:45 DCW (Rec: 08/04/20 14:13 DCW [id number]) OP Mobility Evaluation Bed Mobility Rolling Independent Supine to and from Sit Independent Transfers Sit to Stand SBA Bed to Chair Transfers SBA OP Gait Assessment Gait Gait Assistance Required: Standby Assistance Distance (Feet) 1,132 Assistive Devices Assistive Device None Gait Deviations General Gait Pattern Antalgic,Ataxic,Decreased Feet Clearance,Flexed Trunk, Lateral Trunk Lean Factors Limiting Gait Function Factors Limiting Gait Function Abnormal Tonal Influences, Decreased Activity Tolerance, Decreased Sensation,Decreased Strength,Incoordination,Poor Balance,Poor Safety Awareness Stair Climbing Evaluation Evaluation Level of Assist On Stairs Contact Guard Assistance Devices Stair Climbing Assistive Devices Right Railing Technique/Endurance Stair Climbing Direction Ascend and Descend Stair Climbing Technique Step Over Step,Step to Step Number of Steps Climbed 4 Stair Climbing Set # Repetitions (reps) 6 Comments Stair Climbing Comments Step-over ascending, step-to descending. Minimal scissoring with left during descent. PT-OP-H Neuro Start: 09/17/19 18:00 Freq: Status: Active Protocol: Document 08/04/20 13:45 DCW (Rec: 08/04/20 14:13 DCW [id number]) Sensation Evaluation Gross Sensation Gross Sensation Left UE Impaired,Left LE Impaired Sensation Description Paresthesia,Numbness,Pain Location Details Left Leg Light Touch Impaired Sharp/Dull Impaired Deep Pressure Intact/Normal Proprioception (Position) Impaired Kinesthesia (Movement) Impaired Deep Tendon Reflex & Clonus Assessment Deep Tendon Reflex Left Achilles Deep Tendon Reflex 3+ Normal But Brisk Left Patellar Deep Tendon Reflex 3+ Normal But Brisk Ankle Clonus Left Clonus Assessment 3 Beats Muscle Tone Tone Assessment Left Lower Extremity Flexor Tone Description Mild Hypotonicity PT-OP-M Strength Start: 09/17/19 18:00 Freq: Status: Active Protocol: Document 08/04/20 13:45 DCW (Rec: 08/04/20 14:13 DCW [id number]) Hip Strength Hip Manual Muscle Testing Left Flexion (L2) 3+ Fair+ Extension (S1) 3 Fair Abduction 3 Fair Adduction 4 Good External Rotation 3+ Fair+ Internal Rotation 3+ Fair+ Knee Strength Knee Manual Muscle Testing Left Flexion (S2) 4- Good- Extension (L3) 4+ Good+ Ankle/Foot Strength Ankle and Foot Manual Muscle Testing Left Dorsiflexion (L4) 4 Good Plantarflexion (S1) 3+ Fair+ Inversion 3+ Fair+ Eversion (S1) 3 Fair PT-OP-Q Treatments Start: 09/17/19 18:00 Freq: Status: Active Protocol: Document 08/18/20 13:45 DCW (Rec: 08/18/20 14:26 DCW [id number]) Gym Equipment Shuttle Balance Red Details Wide [id number] Comments Min Ax1 Gait Training Gait Activity No AD Description No AD Device Used None Level of Assistance SBA Distance/Duration 950' x1 Comments VCs to promote heel-toe gait, extend left knee during stance phase Neuro Re-Education Treatment Balance Activities Obstacle Course Details Obstacle course Surface Foam, cones, steps Cone transfers Details Bending down to pick balls up from cone, kick cone over, balltoss to target PT-OP-R Modalities Start: 09/17/19 18:00 Freq: Status: Active Protocol: Document 08/18/20 13:45 DCW (Rec: 08/18/20 14:26 DCW [id number]) Electric Stimulation Electric Stimulation Interferential Current (IFC) Body Location L ant ankle Duration (Minutes) 15 Patient Position Sitting Combined With Heat/Cold Cold Pack PT-OP-S Aquatic Treatment Start: 09/17/19 18:00 Freq: Status: Active Protocol: Document 01/30/20 12:30 LJ (Rec: 01/30/20 14:54 LJ [id number]) Aquatics Treatment Pool Entry/Exit Pool Entry/Exit Method Lift Assistance Minimal Assistance Water Walking Slow motion Water Level Chest Level Walking Equipment wet vest, UE float, #2.5 ankle wt Level of Assistance Standby Assistance,Contact Guard Assistance,Moderate Assistance Comments emphasis on LLE extension stance phase [place] March Water Level Chest Level Walking Equipment wet vest, UE float, #2.5 ankle wt Level of Assistance Standby Assistance,Contact Guard Assistance,Moderate Assistance,Verbal Cues Forward with emphasis on reciprocal gait pattern Water Level Chest Level Level of Assistance Standby Assistance,Contact Guard Assistance,Minimal Assistance,Verbal Cues Comments wetvest, sm float on LUE, #3. 75 ankle wt on LLE start stop walking forward and backward Water Level Chest Level Walking Equipment vest Level of Assistance Contact Guard Assistance, Verbal Cues Comments wetvest, sm float on LUE, #3. 75 ankle wt on LLE Sideways Water Level Chest Level Walking Equipment wet vest, UE float, #2.5 ankle wt Level of Assistance Standby Assistance,Contact Guard Assistance,Minimal Assistance,Verbal Cues Lower Extremity Exercises SL aquats Details HH on wall Body Position Standing Water Level Waist Level Equipment wetvest Reps/Duration 2x10 LLE Comments VC to extend knee knee extensions Details seated in lift chair Equipment Ankle Weight- 5.0# Reps/Duration 20 B Comments seated in lift SLS Details bracing LLE Body Position Standing Water Level Chest Level Equipment vest Reps/Duration 1 min marching at wall Water Level Chest Level Reps/Duration 2 min Comments opposite UE/LE tapping wall squats Body Position Standing Water Level Chest Level Reps/Duration 20x Lower Extremity Stretches adductors Comments seated in chair Gastroc Body Position Sitting Reps/Duration 2 x 45 sec B Comments manual assist hip flexors Details at wall Body Position Standing Water Level Waist Level Reps/Duration 2x45 Comments manually assisted HS Details at wall Body Position Sitting Water Level Waist Level Equipment wet vest Reps/Duration 2x45 Comments sitting in lift chair assisted Upper Extremity Exercises breastroke UE's Body Position Standing Water Level Chest Level Reps/Duration 3 min Comments during walking and deep water hor ab/ad Water Level Chest Level Comments during side walking, CGA Balance step ups Details step ups/down using boxes Body Position Standing Water Level Waist Level Equipment 8 boxes Comments mod verbal cues for coordination [place] Activities [place] Activities Bicycle,Cross Country Equipment wet vest, white noodle Duration 7 min Comments Guy and cues for vertical alignmernt. PT-OP-T Assessment and Plan Start: 09/17/19 18:00 Freq: Status: Active Protocol: Document 08/18/20 13:45 DCW (Rec: 08/18/20 14:26 [facility] [id number]) Physical Therapy Assessment Impairments Impairments Activity Tolerance,Balance, Coordination,Functional Activities,Functional Mobility ,Gait,Pain,ROM,Sensation, Strength,Tone,Transfers Goals Six Impairment Decreased Static Balance Short Term Goal (STG) Pt to score <9 seconds on TUG STG Duration 09/13/20 - Improving (9.05 seconds) [facility] Goal (LTG) MET - Pt to score 35/56 or better on the Adler Balance NEW GOAL - Pt to score 45/56 or better on the Adler Balance Scale LTG Duration 11/03/20 Five Impairment Pt uses R rail and step-over gait pattern ascending stairs Super[facility] Goal (LTG) Pt to ascend/descend stairs independently without use of rail LTG Duration 11/13/20 - Improving Four Impairment Pt demonstrates strength impairment throughout left LE Fdc Goal (LTG) Pt to display MMT >3+/5 through L LE LTG Duration 11/13/20 - Improving Three Impairment Pt SBA for transfers and bed mobility d/t Left Neglect [facility] Goal (LTG) Pt to demonstrate independent transfers and bed mobility with an ability to address left LE and UE 80% of the time LTG Duration Met Two Impairment Pt ambulates 280' CGA /s an AD Short Term Goal (STG) Pt to ambulate 400' SBA independently STG Duration Met [facility] Goal (LTG) Pt to ambulate 800' during 6 MWT Independently without SBA LTG Duration 11/03/20 - Improving (1132' SBA) One Impairment Pt does not have an appropriate home exercise program Short Term Goal (STG) Pt to be independent and compliant with an appropriate HEP STG Duration Met Assessment Summary Assessment Pt continues to have increased ability to perform balance activities with less fatigue and imbalance. Physical Therapy Plan Frequency and Duration Frequency of Treatment 2x/Week Duration of Treatment 3 months Plan of Care Start Date 08/04/20 Plan of Care End Date 11/03/20 Therapeutic Interventions Therapeutic Interventions Aquatic Therapy,Balance Training,Coordination Training ,Gait Training,Home Exercise Program,Manual Therapy, Neuromuscular Re-education, Patient/Caregiver Education, Self-Care/Home Management, Therapeutic Activities, Therapeutic Exercises Modalities Cold Pack/Ice Massage,Electric Stimulation,Hot Packs, Ultrasound Next Visit Focus/Plan Next Note Type Treatment Note Next Visit Plan Continue to challenge, continue strengthening, balance and gait training with NMR. Continue deep water for cardio training and core stabilization. Focus on bilateral knee extension in shallow water gait training
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
--- NOTE | 2020-08-25 14:27 | PT.OTN ---
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) Physical Therapy Treatment Note PT-OP-A Visit Information Start: 09/17/19 18:00 Freq: Status: Active Protocol: Document 08/25/20 13:45 DCW (Rec: 08/25/20 14:27 DCW [id number]) Out-Patient Physical Therapy Visit Information Visit Information Visit Type Treatment Note Visit Start Time 13:45 Visit Stop Time 14:30 Total Visit Minutes 45 Visit Number 68 Number of CAFE OR RESTAURANT MANAGER Visits 0 Evaluation Information Evaluation Date 09/17/19 PT-OP-B Current Condition Start: 09/17/19 18:00 Freq: Status: Active Protocol: Document 09/17/19 12:00 DCW (Rec: 09/18/19 10:29 DCW [id number]) Current Condition History of Current Condition Onset Date 04/14/19 Current Complaints Hemiparesis secondary to CVA History of Current Condition Pt is a 69 year old male presenting to skilled outpatient physical therapy with left-side neglect, hemiparesis, loss of independence, and difficulty walking following an intraparenchymal hemorrhage on 04/14/19. Pt was transferred from [facility] to [facility], where a craniotomy was performed on 04/16/19. Pt completed 7 weeks of rehab/ recovery at [facility], and then underwent a second surgery on 06/26/19 to replace the skull fragment. Pt was then at an acute rehab facility 06/30-07/18/19, and since then has been receiving home health physical therapy. Pt presents today with limited left-sided function, left visual and physical neglect, difficulty with transfers, decreased activity tolerance, decreased gait, and many other secondary effects following his CVA. Pt has been working on ambulation with a vale walker with home health, and his states he has walked around 100' a few times, but always with a therapist, as she does not feel comfortable walking with him yet. Pt exclusively gets around at time of evaluation in a manual wheelchair. Pt's transfers have been going fairly well, with his caregivers performing CGA, however pt will occasionally need assistance with placement of his left UE and LE due to neglect. Pt's biggest complaint at the moment is leg pain, his reports they have tried PT, Massage, CBD il, Tylenol, Oxycodine, and Gabapentin, all with minimal benefit. Prior to CVA, pt was fully independent in all activities. Pt and have garegivers 8 hrs a day for assistance. Prior Treatments and Tests Craniotomy 04/16/19, Acute rehab, Skull fragment replacement 06/26/19, home health PT Prior Functional Status Baseline Function- ADL's Independent Baseline Function- Mobility Independent PT-OP-C Subjective Start: 09/17/19 18:00 Freq: Status: Active Protocol: Document 08/25/20 13:45 DCW (Rec: 08/25/20 14:27 DCW [id number]) OP-PT Subjective Patient Comments Patient Comments Pt reports he has been doing better the last day or so. PT-OP-D Balance Start: 08/04/20 14:14 Freq: Status: Active Protocol: Document 08/04/20 13:45 DCW (Rec: 08/04/20 14:28 DCW [id number]) Balance Tests Adler Balance Test Adler Balance Test Score 39/56 Adler Impairment Rating 20 to 39% Impaired (Score 34- 44) Adler Balance Assessment Evaluation Sitting to Standing Ability Independent w/out Hands Unsupported Stance Supervision- 2 minutes Sitting Unsupported, Feet on Floor Safely- 2 minutes Standing to Sitting Ability Assist, Control w/Hands Transfer Ability Safely, Hand Use Unsupported Stance- Eyes Closed Supervision, 10 seconds Unsupported Stance- Eyes Open Supervision to maintain Reaching Forward Standing Safely, 5 inches Pick- Up Object From Floor Supervision Look Behind Shoulder - Standing Shifts Weight Unilateral Turning 360 Degrees Turns slowly, but safely Unsupported Stance, Alternating Feet on 4 Steps w/Supervision Stair Unsupported Tandem Stance Small Step- 30 seconds Unilateral Leg Stance Lifts Leg/Unable to Hold Total Score Adler Total Score (out of 56 points) 39 Adler Impairment Rating 20 to 39% Impaired (Score 34- 44) PT-OP-E Functional Tests Start: 05/04/20 15:15 Freq: Status: Active Protocol: Document 08/04/20 13:45 DCW (Rec: 08/04/20 14:13 DCW [id number]) Functional Tests 6 Minute Walk Test Distance 1132' Device Used none Comments 3.14 ft/sec Timed Up and Go (TUG) Score 9.05 seconds Comments 3-trial average (10.03, 8.96, 8.16) TUG Impairment Rating 0% Impaired (Score 10) PT-OP-G Mobility & Gait Start: 09/17/19 18:00 Freq: Status: Active Protocol: Document 08/04/20 13:45 DCW (Rec: 08/04/20 14:13 DCW [id number]) OP Mobility Evaluation Bed Mobility Rolling Independent Supine to and from Sit Independent Transfers Sit to Stand SBA Bed to Chair Transfers SBA OP Gait Assessment Gait Gait Assistance Required: Standby Assistance Distance (Feet) 1,132 Assistive Devices Assistive Device None Gait Deviations General Gait Pattern Antalgic,Ataxic,Decreased Feet Clearance,Flexed Trunk, Lateral Trunk Lean Factors Limiting Gait Function Factors Limiting Gait Function Abnormal Tonal Influences, Decreased Activity Tolerance, Decreased Sensation,Decreased Strength,Incoordination,Poor Balance,Poor Safety Awareness Stair Climbing Evaluation Evaluation Level of Assist On Stairs Contact Guard Assistance Devices Stair Climbing Assistive Devices Right Railing Technique/Endurance Stair Climbing Direction Ascend and Descend Stair Climbing Technique Step Over Step,Step to Step Number of Steps Climbed 4 Stair Climbing Set # Repetitions (reps) 6 Comments Stair Climbing Comments Step-over ascending, step-to descending. Minimal scissoring with left during descent. PT-OP-H Neuro Start: 09/17/19 18:00 Freq: Status: Active Protocol: Document 08/04/20 13:45 DCW (Rec: 08/04/20 14:13 DCW [id number]) Sensation Evaluation Gross Sensation Gross Sensation Left UE Impaired,Left LE Impaired Sensation Description Paresthesia,Numbness,Pain Location Details Left Leg Light Touch Impaired Sharp/Dull Impaired Deep Pressure Intact/Normal Proprioception (Position) Impaired Kinesthesia (Movement) Impaired Deep Tendon Reflex & Clonus Assessment Deep Tendon Reflex Left Achilles Deep Tendon Reflex 3+ Normal But Brisk Left Patellar Deep Tendon Reflex 3+ Normal But Brisk Ankle Clonus Left Clonus Assessment 3 Beats Muscle Tone Tone Assessment Left Lower Extremity Flexor Tone Description Mild Hypotonicity PT-OP-M Strength Start: 09/17/19 18:00 Freq: Status: Active Protocol: Document 08/04/20 13:45 DCW (Rec: 08/04/20 14:13 DCW [id number]) Hip Strength Hip Manual Muscle Testing Left Flexion (L2) 3+ Fair+ Extension (S1) 3 Fair Abduction 3 Fair Adduction 4 Good External Rotation 3+ Fair+ Internal Rotation 3+ Fair+ Knee Strength Knee Manual Muscle Testing Left Flexion (S2) 4- Good- Extension (L3) 4+ Good+ Ankle/Foot Strength Ankle and Foot Manual Muscle Testing Left Dorsiflexion (L4) 4 Good Plantarflexion (S1) 3+ Fair+ Inversion 3+ Fair+ Eversion (S1) 3 Fair PT-OP-Q Treatments Start: 09/17/19 18:00 Freq: Status: Active Protocol: Document 08/25/20 13:45 DCW (Rec: 08/25/20 14:27 DCW [id number]) Gym Equipment Shuttle Recovery Unilateral Heel Raises Details Left Resistance 25# Reps/Time calf stretch at end Unilateral Squats Details Left Resistance 62# Shuttle Recovery Platform Stable Bilateral Squats Resistance 100# Shuttle Recovery Platform Stable Shuttle Balance Red Details Wide [id number] Comments Min Ax1 Therapeutic Exercises Standing Exercises Toe-taps Standing Exercise Name Toe-taps Side bilateral Resistance 10# Equipment Used 6 step Gait Training Gait Activity No AD Description No AD Device Used None Level of Assistance SBA Distance/Duration 960' x1 Comments VCs to promote heel-toe gait, extend left knee during stance phase PT-OP-R Modalities Start: 09/17/19 18:00 Freq: Status: Active Protocol: Document 08/25/20 13:45 DCW (Rec: 08/25/20 14:27 DCW [id number]) Electric Stimulation Electric Stimulation Interferential Current (IFC) Body Location L ant ankle Duration (Minutes) 15 Patient Position Sitting Combined With Heat/Cold Cold Pack PT-OP-S Aquatic Treatment Start: 09/17/19 18:00 Freq: Status: Active Protocol: Document 01/30/20 12:30 LJ (Rec: 01/30/20 14:54 LJ [id number]) Aquatics Treatment Pool Entry/Exit Pool Entry/Exit Method Lift Assistance Minimal Assistance Water Walking Slow motion Water Level Chest Level Walking Equipment wet vest, UE float, #2.5 ankle wt Level of Assistance Standby Assistance,Contact Guard Assistance,Moderate Assistance Comments emphasis on LLE extension stance phase Clinton March Water Level Chest Level Walking Equipment wet vest, UE float, #2.5 ankle wt Level of Assistance Standby Assistance,Contact Guard Assistance,Moderate Assistance,Verbal Cues Forward with emphasis on reciprocal gait pattern Water Level Chest Level Level of Assistance Standby Assistance,Contact Guard Assistance,Minimal Assistance,Verbal Cues Comments wetvest, sm float on LUE, #3. 75 ankle wt on LLE start stop walking forward and backward Water Level Chest Level Walking Equipment vest Level of Assistance Contact Guard Assistance, Verbal Cues Comments wetvest, sm float on LUE, #3. 75 ankle wt on LLE Sideways Water Level Chest Level Walking Equipment wet vest, UE float, #2.5 ankle wt Level of Assistance Standby Assistance,Contact Guard Assistance,Minimal Assistance,Verbal Cues Lower Extremity Exercises SL aquats Details HH on wall Body Position Standing Water Level Waist Level Equipment wetvest Reps/Duration 2x10 LLE Comments VC to extend knee knee extensions Details seated in lift chair Equipment Ankle Weight- 5.0# Reps/Duration 20 B Comments seated in lift SLS Details bracing LLE Body Position Standing Water Level Chest Level Equipment vest Reps/Duration 1 min marching at wall Water Level Chest Level Reps/Duration 2 min Comments opposite UE/LE tapping wall squats Body Position Standing Water Level Chest Level Reps/Duration 20x Lower Extremity Stretches adductors Comments seated in chair Gastroc Body Position Sitting Reps/Duration 2 x 45 sec B Comments manual assist hip flexors Details at wall Body Position Standing Water Level Waist Level Reps/Duration 2x45 Comments manually assisted HS Details at wall Body Position Sitting Water Level Waist Level Equipment wet vest Reps/Duration 2x45 Comments sitting in lift chair assisted Upper Extremity Exercises breastroke UE's Body Position Standing Water Level Chest Level Reps/Duration 3 min Comments during walking and deep water hor ab/ad Water Level Chest Level Comments during side walking, CGA Balance step ups Details step ups/down using boxes Body Position Standing Water Level Waist Level Equipment 8 boxes Comments mod verbal cues for coordination Bedford Activities Bedford Activities Bicycle,Cross Country Equipment wet vest, white noodle Duration 7 min Comments Guy and cues for vertical alignmernt. PT-OP-T Assessment and Plan Start: 09/17/19 18:00 Freq: Status: Active Protocol: Document 08/25/20 13:45 DCW (Rec: 08/25/20 14:27 DCW [id number]) Physical Therapy Assessment Impairments Impairments Activity Tolerance,Balance, Coordination,Functional Activities,Functional Mobility ,Gait,Pain,ROM,Sensation, Strength,Tone,Transfers Goals Six Impairment Decreased Static Balance Short Term Goal (STG) Pt to score <9 seconds on TUG STG Duration 09/13/20 - Improving (9.05 seconds) Comfort Station Attendant Goal (LTG) MET - Pt to score 35/56 or better on the Adler Balance NEW GOAL - Pt to score 45/56 or better on the Adler Balance Scale LTG Duration 11/03/20 Five Impairment Pt uses R rail and step-over gait pattern ascending stairs Comfort Station Attendant Goal (LTG) Pt to ascend/descend stairs independently without use of rail LTG Duration 11/13/20 - Improving Four Impairment Pt demonstrates strength impairment throughout left LE Senior Living Goal (LTG) Pt to display MMT >3+/5 through L LE LTG Duration 11/13/20 - Improving Three Impairment Pt SBA for transfers and bed mobility d/t Left Neglect Comfort Station Attendant Goal (LTG) Pt to demonstrate independent transfers and bed mobility with an ability to address left LE and UE 80% of the time LTG Duration Met Two Impairment Pt ambulates 280' CGA /s an AD Short Term Goal (STG) Pt to ambulate 400' SBA independently STG Duration Met Senior Living Goal (LTG) Pt to ambulate 800' during 6 MWT Independently without SBA LTG Duration 11/03/20 - Improving (1132' SBA) One Impairment Pt does not have an appropriate home exercise program Short Term Goal (STG) Pt to be independent and compliant with an appropriate HEP STG Duration Met Assessment Summary Assessment Pt seems to be improving with balance and mobility, still limited occasionally by left neglect. Physical Therapy Plan Frequency and Duration Frequency of Treatment 2x/Week Duration of Treatment 3 months Plan of Care Start Date 08/04/20 Plan of Care End Date 11/03/20 Therapeutic Interventions Therapeutic Interventions Aquatic Therapy,Balance Training,Coordination Training ,Gait Training,Home Exercise Program,Manual Therapy, Neuromuscular Re-education, Patient/Caregiver Education, Self-Care/Home Management, Therapeutic Activities, Therapeutic Exercises Modalities Cold Pack/Ice Massage,Electric Stimulation,Hot Packs, Ultrasound Next Visit Focus/Plan Next Note Type Treatment Note Next Visit Plan Continue to challenge, continue strengthening, balance and gait training with NMR. Continue deep water for cardio training and core stabilization. Focus on bilateral knee extension in shallow water gait training
--- NOTE | 2020-08-30 15:14 | PT.OTN ---
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) Physical Therapy Treatment Note PT-OP-A Visit Information Start: 09/17/19 18:00 Freq: Status: Active Protocol: Document 08/30/20 14:30 DCW (Rec: 08/30/20 15:14 DCW [id number]) Out-Patient Physical Therapy Visit Information Visit Information Visit Type Treatment Note Visit Start Time 14:30 Visit Stop Time 15:25 Total Visit Minutes 55 Visit Number 69 Number of LIFE SKILLS TEACHER Visits 0 Evaluation Information Evaluation Date 09/17/19 PT-OP-B Current Condition Start: 09/17/19 18:00 Freq: Status: Active Protocol: Document 09/17/19 12:00 DCW (Rec: 09/18/19 10:29 DCW [id number]) Current Condition History of Current Condition Onset Date 04/14/19 Current Complaints Hemiparesis secondary to CVA History of Current Condition Pt is a 69 year old male presenting to skilled outpatient physical therapy with left-side neglect, hemiparesis, loss of independence, and difficulty walking following an intraparenchymal hemorrhage on 04/14/19. Pt was transferred from [facility] to [facility], where a craniotomy was performed on 04/16/19. Pt completed 7 weeks of rehab/ recovery at [facility], and then underwent a second surgery on 06/26/19 to replace the skull fragment. Pt was then at an acute rehab facility 06/30-07/18/19, and since then has been receiving home health physical therapy. Pt presents today with limited left-sided function, left visual and physical neglect, difficulty with transfers, decreased activity tolerance, decreased gait, and many other secondary effects following his CVA. Pt has been working on ambulation with a vale walker with home health, and his states he has walked around 100' a few times, but always with a therapist, as she does not feel comfortable walking with him yet. Pt exclusively gets around at time of evaluation in a manual wheelchair. Pt's transfers have been going fairly well, with his caregivers performing CGA, however pt will occasionally need assistance with placement of his left UE and LE due to neglect. Pt's biggest complaint at the moment is leg pain, his reports they have tried PT, Massage, CBD il, Tylenol, Oxycodine, and Gabapentin, all with minimal benefit. Prior to CVA, pt was fully independent in all activities. Pt and have garegivers 8 hrs a day for assistance. Prior Treatments and Tests Craniotomy 04/16/19, Acute rehab, Skull fragment replacement 06/26/19, home health PT Prior Functional Status Baseline Function- ADL's Independent Baseline Function- Mobility Independent PT-OP-C Subjective Start: 09/17/19 18:00 Freq: Status: Active Protocol: Document 08/30/20 14:30 DCW (Rec: 08/30/20 15:14 DCW [id number]) OP-PT Subjective Patient Comments Patient Comments Pt notes that when he was walking this weekend, he was more in control than usual. PT-OP-D Balance Start: 08/04/20 14:14 Freq: Status: Active Protocol: Document 08/04/20 13:45 DCW (Rec: 08/04/20 14:28 DCW [id number]) Balance Tests Adler Balance Test Adler Balance Test Score 39/56 Adler Impairment Rating 20 to 39% Impaired (Score 34- 44) Adler Balance Assessment Evaluation Sitting to Standing Ability Independent w/out Hands Unsupported Stance Supervision- 2 minutes Sitting Unsupported, Feet on Floor Safely- 2 minutes Standing to Sitting Ability Assist, Control w/Hands Transfer Ability Safely, Hand Use Unsupported Stance- Eyes Closed Supervision, 10 seconds Unsupported Stance- Eyes Open Supervision to maintain Reaching Forward Standing Safely, 5 inches Pick- Up Object From Floor Supervision Look Behind Shoulder - Standing Shifts Weight Unilateral Turning 360 Degrees Turns slowly, but safely Unsupported Stance, Alternating Feet on 4 Steps w/Supervision Stair Unsupported Tandem Stance Small Step- 30 seconds Unilateral Leg Stance Lifts Leg/Unable to Hold Total Score Adler Total Score (out of 56 points) 39 Adler Impairment Rating 20 to 39% Impaired (Score 34- 44) PT-OP-E Functional Tests Start: 05/04/20 15:15 Freq: Status: Active Protocol: Document 08/04/20 13:45 DCW (Rec: 08/04/20 14:13 DCW [id number]) Functional Tests 6 Minute Walk Test Distance 1132' Device Used none Comments 3.14 ft/sec Timed Up and Go (TUG) Score 9.05 seconds Comments 3-trial average (10.03, 8.96, 8.16) TUG Impairment Rating 0% Impaired (Score 10) PT-OP-G Mobility & Gait Start: 09/17/19 18:00 Freq: Status: Active Protocol: Document 08/04/20 13:45 DCW (Rec: 08/04/20 14:13 DCW [id number]) OP Mobility Evaluation Bed Mobility Rolling Independent Supine to and from Sit Independent Transfers Sit to Stand SBA Bed to Chair Transfers SBA OP Gait Assessment Gait Gait Assistance Required: Standby Assistance Distance (Feet) 1,132 Assistive Devices Assistive Device None Gait Deviations General Gait Pattern Antalgic,Ataxic,Decreased Feet Clearance,Flexed Trunk, Lateral Trunk Lean Factors Limiting Gait Function Factors Limiting Gait Function Abnormal Tonal Influences, Decreased Activity Tolerance, Decreased Sensation,Decreased Strength,Incoordination,Poor Balance,Poor Safety Awareness Stair Climbing Evaluation Evaluation Level of Assist On Stairs Contact Guard Assistance Devices Stair Climbing Assistive Devices Right Railing Technique/Endurance Stair Climbing Direction Ascend and Descend Stair Climbing Technique Step Over Step,Step to Step Number of Steps Climbed 4 Stair Climbing Set # Repetitions (reps) 6 Comments Stair Climbing Comments Step-over ascending, step-to descending. Minimal scissoring with left during descent. PT-OP-H Neuro Start: 09/17/19 18:00 Freq: Status: Active Protocol: Document 08/04/20 13:45 DCW (Rec: 08/04/20 14:13 DCW [id number]) Sensation Evaluation Gross Sensation Gross Sensation Left UE Impaired,Left LE Impaired Sensation Description Paresthesia,Numbness,Pain Location Details Left Leg Light Touch Impaired Sharp/Dull Impaired Deep Pressure Intact/Normal Proprioception (Position) Impaired Kinesthesia (Movement) Impaired Deep Tendon Reflex & Clonus Assessment Deep Tendon Reflex Left Achilles Deep Tendon Reflex 3+ Normal But Brisk Left Patellar Deep Tendon Reflex 3+ Normal But Brisk Ankle Clonus Left Clonus Assessment 3 Beats Muscle Tone Tone Assessment Left Lower Extremity Flexor Tone Description Mild Hypotonicity PT-OP-M Strength Start: 09/17/19 18:00 Freq: Status: Active Protocol: Document 08/04/20 13:45 DCW (Rec: 08/04/20 14:13 DCW [id number]) Hip Strength Hip Manual Muscle Testing Left Flexion (L2) 3+ Fair+ Extension (S1) 3 Fair Abduction 3 Fair Adduction 4 Good External Rotation 3+ Fair+ Internal Rotation 3+ Fair+ Knee Strength Knee Manual Muscle Testing Left Flexion (S2) 4- Good- Extension (L3) 4+ Good+ Ankle/Foot Strength Ankle and Foot Manual Muscle Testing Left Dorsiflexion (L4) 4 Good Plantarflexion (S1) 3+ Fair+ Inversion 3+ Fair+ Eversion (S1) 3 Fair PT-OP-Q Treatments Start: 09/17/19 18:00 Freq: Status: Active Protocol: Document 08/30/20 14:30 DCW (Rec: 08/30/20 15:14 DCW [id number]) Gym Equipment Shuttle Balance Red Details Wide [email or web address] Comments Min Ax1 Gait Training Gait Activity No AD Description No AD Device Used None Level of Assistance SBA Distance/Duration 950' x1 Comments VCs to promote heel-toe gait, extend left knee during stance phase Neuro Re-Education Treatment Balance Activities Ball Kick Details Ball kick to goal Comments Weight shift, SLS, Coordination Balance Board Details Lateral weight shift Hurdles Details Hurdles Comments Min Ax1 Cone transfers Details Bending down to pick balls up from cone, kick cone over, balltoss to target PT-OP-R Modalities Start: 09/17/19 18:00 Freq: Status: Active Protocol: Document 08/30/20 14:30 DCW (Rec: 08/30/20 15:14 DCW [id number]) Electric Stimulation Electric Stimulation Interferential Current (IFC) Body Location L ant ankle Duration (Minutes) 15 Patient Position Sitting Combined With Heat/Cold Cold Pack PT-OP-S Aquatic Treatment Start: 09/17/19 18:00 Freq: Status: Active Protocol: Document 01/30/20 12:30 LJ (Rec: 01/30/20 14:54 LJ [id number]) Aquatics Treatment Pool Entry/Exit Pool Entry/Exit Method Lift Assistance Minimal Assistance Water Walking Slow motion Water Level Chest Level Walking Equipment wet vest, UE float, #2.5 ankle wt Level of Assistance Standby Assistance,Contact Guard Assistance,Moderate Assistance Comments emphasis on LLE extension stance phase [place] March Water Level Chest Level Walking Equipment wet vest, UE float, #2.5 ankle wt Level of Assistance Standby Assistance,Contact Guard Assistance,Moderate Assistance,Verbal Cues Forward with emphasis on reciprocal gait pattern Water Level Chest Level Level of Assistance Standby Assistance,Contact Guard Assistance,Minimal Assistance,Verbal Cues Comments wetvest, sm float on LUE, #3. 75 ankle wt on LLE start stop walking forward and backward Water Level Chest Level Walking Equipment vest Level of Assistance Contact Guard Assistance, Verbal Cues Comments wetvest, sm float on LUE, #3. 75 ankle wt on LLE Sideways Water Level Chest Level Walking Equipment wet vest, UE float, #2.5 ankle wt Level of Assistance Standby Assistance,Contact Guard Assistance,Minimal Assistance,Verbal Cues Lower Extremity Exercises SL aquats Details HH on wall Body Position Standing Water Level Waist Level Equipment wetvest Reps/Duration 2x10 LLE Comments VC to extend knee knee extensions Details seated in lift chair Equipment Ankle Weight- 5.0# Reps/Duration 20 B Comments seated in lift SLS Details bracing LLE Body Position Standing Water Level Chest Level Equipment vest Reps/Duration 1 min marching at wall Water Level Chest Level Reps/Duration 2 min Comments opposite UE/LE tapping wall squats Body Position Standing Water Level Chest Level Reps/Duration 20x Lower Extremity Stretches adductors Comments seated in chair Gastroc Body Position Sitting Reps/Duration 2 x 45 sec B Comments manual assist hip flexors Details at wall Body Position Standing Water Level Waist Level Reps/Duration 2x45 Comments manually assisted HS Details at wall Body Position Sitting Water Level Waist Level Equipment wet vest Reps/Duration 2x45 Comments sitting in lift chair assisted Upper Extremity Exercises breastroke UE's Body Position Standing Water Level Chest Level Reps/Duration 3 min Comments during walking and deep water hor ab/ad Water Level Chest Level Comments during side walking, CGA Balance step ups Details step ups/down using boxes Body Position Standing Water Level Waist Level Equipment 8 boxes Comments mod verbal cues for coordination [place] Activities [place] Activities Bicycle,Cross Country Equipment wet vest, white noodle Duration 7 min Comments Guy and cues for vertical alignmernt. PT-OP-T Assessment and Plan Start: 09/17/19 18:00 Freq: Status: Active Protocol: Document 08/30/20 14:30 DCW (Rec: 08/30/20 15:14 DCW [id number]) Physical Therapy Assessment Impairments Impairments Activity Tolerance,Balance, Coordination,Functional Activities,Functional Mobility ,Gait,Pain,ROM,Sensation, Strength,Tone,Transfers Goals Six Impairment Decreased Static Balance Short Term Goal (STG) Pt to score <9 seconds on TUG STG Duration 09/13/20 - Improving (9.05 seconds) Halfway Goal (LTG) MET - Pt to score 35/56 or better on the Alder Balance NEW GOAL - Pt to score 45/56 or better on the Adler Balance Scale LTG Duration 11/03/20 Five Impairment Pt uses R rail and step-over gait pattern ascending stairs Medical Lab Technologist Goal (LTG) Pt to ascend/descend stairs independently without use of rail LTG Duration 11/13/20 - Improving Four Impairment Pt demonstrates strength impairment throughout left LE Halfway Goal (LTG) Pt to display MMT >3+/5 through L LE LTG Duration 11/13/20 - Improving Three Impairment Pt SBA for transfers and bed mobility d/t Left Neglect Halfway Goal (LTG) Pt to demonstrate independent transfers and bed mobility with an ability to address left LE and UE 80% of the time LTG Duration Met Two Impairment Pt ambulates 280' CGA /s an AD Short Term Goal (STG) Pt to ambulate 400' SBA independently STG Duration Met Medical Lab Technologist Goal (LTG) Pt to ambulate 800' during 6 MWT Independently without SBA LTG Duration 11/03/20 - Improving (1132' SBA) One Impairment Pt does not have an appropriate home exercise program Short Term Goal (STG) Pt to be independent and compliant with an appropriate HEP STG Duration Met Assessment Summary Assessment Pt ambulating with much more confidence and stability today, improved gait pattern. Pt tolerating increased activity level. Physical Therapy Plan Frequency and Duration Frequency of Treatment 2x/Week Duration of Treatment 3 months Plan of Care Start Date 08/04/20 Plan of Care End Date 11/03/20 Therapeutic Interventions Therapeutic Interventions Aquatic Therapy,Balance Training,Coordination Training ,Gait Training,Home Exercise Program,Manual Therapy, Neuromuscular Re-education, Patient/Caregiver Education, Self-Care/Home Management, Therapeutic Activities, Therapeutic Exercises Modalities Cold Pack/Ice Massage,Electric Stimulation,Hot Packs, Ultrasound Next Visit Focus/Plan Next Note Type Treatment Note Next Visit Plan Continue to challenge, continue strengthening, balance and gait training with NMR. Continue deep water for cardio training and core stabilization. Focus on bilateral knee extension in shallow water gait training
--- NOTE | 2020-09-01 16:04 | PT.OTN ---
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) Physical Therapy Treatment Note PT-OP-A Visit Information Start: 09/17/19 18:00 Freq: Status: Active Protocol: Document 09/01/20 15:15 DCW (Rec: 09/01/20 16:02 DCW [id number]) Out-Patient Physical Therapy Visit Information Visit Information Visit Type Treatment Note Visit Start Time 15:15 Visit Stop Time 16:10 Total Visit Minutes 55 Visit Number 70 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 Pt was transferred from [facility] to [facility], where a craniotomy was performed on 04/16/19. Pt completed 7 weeks of rehab/ recovery at [facility], and then underwent a second surgery on 06/26/19 to replace the skull fragment. Pt was then at an acute rehab facility 06/30-07/18/19, and since then has been receiving home health physical therapy. Pt presents today with limited left-sided function, left visual and physical neglect, difficulty with transfers, decreased activity tolerance, decreased gait, and many other secondary effects following his CVA. Pt has been working on ambulation with a vale walker with home health, and his states he has walked around 100' a few times, but always with a therapist, as she does not feel comfortable walking with him yet. Pt exclusively gets around at time of evaluation in a manual wheelchair. Pt's transfers have been going fairly well, with his caregivers performing CGA, however pt will occasionally need assistance with placement of his left UE and LE due to neglect. Pt's biggest complaint at the moment is leg pain, his reports they have tried PT, Massage, CBD il, Tylenol, Oxycodine, and Gabapentin, all with minimal benefit. Prior to CVA, pt was fully independent in all activities. Pt and have garegivers 8 hrs a day for assistance. Prior Treatments and Tests Craniotomy 04/16/19, Acute rehab, Skull fragment replacement 06/26/19, home health PT Prior Functional Status Baseline Function- ADL's Independent Baseline Function- Mobility Independent PT-OP-C Subjective Start: 09/17/19 18:00 Freq: Status: Active Protocol: Document 09/01/20 15:15 DCW (Rec: 09/01/20 16:02 DCW [id number]) OP-PT Subjective Patient Comments Patient Comments Pt reports he feels good today . PT-OP-D Balance Start: 08/04/20 14:14 Freq: Status: Active Protocol: Document 08/04/20 13:45 DCW (Rec: 08/04/20 14:28 DCW [id number]) Balance Tests Adler Balance Test Adler Balance Test Score 39/56 Adler Impairment Rating 20 to 39% Impaired (Score 34- 44) Adler Balance Assessment Evaluation Sitting to Standing Ability Independent w/out Hands Unsupported Stance Supervision- 2 minutes Sitting Unsupported, Feet on Floor Safely- 2 minutes Standing to Sitting Ability Assist, Control w/Hands Transfer Ability Safely, Hand Use Unsupported Stance- Eyes Closed Supervision, 10 seconds Unsupported Stance- Eyes Open Supervision to maintain Reaching Forward Standing Safely, 5 inches Pick- Up Object From Floor Supervision Look Behind Shoulder - Standing Shifts Weight Unilateral Turning 360 Degrees Turns slowly, but safely Unsupported Stance, Alternating Feet on 4 Steps w/Supervision Stair Unsupported Tandem Stance Small Step- 30 seconds Unilateral Leg Stance Lifts Leg/Unable to Hold Total Score Adler Total Score (out of 56 points) 39 Adler Impairment Rating 20 to 39% Impaired (Score 34- 44) PT-OP-E Functional Tests Start: 05/04/20 15:15 Freq: Status: Active Protocol: Document 08/04/20 13:45 DCW (Rec: 08/04/20 14:13 DCW [id number]) Functional Tests 6 Minute Walk Test Distance 1132' Device Used none Comments 3.14 ft/sec Timed Up and Go (TUG) Score 9.05 seconds Comments 3-trial average (10.03, 8.96, 8.16) TUG Impairment Rating 0% Impaired (Score 10) PT-OP-G Mobility & Gait Start: 09/17/19 18:00 Freq: Status: Active Protocol: Document 08/04/20 13:45 DCW (Rec: 08/04/20 14:13 DCW [id number]) OP Mobility Evaluation Bed Mobility Rolling Independent Supine to and from Sit Independent Transfers Sit to Stand SBA Bed to Chair Transfers SBA OP Gait Assessment Gait Gait Assistance Required: Standby Assistance Distance (Feet) 1,132 Assistive Devices Assistive Device None Gait Deviations General Gait Pattern Antalgic,Ataxic,Decreased Feet Clearance,Flexed Trunk, Lateral Trunk Lean Factors Limiting Gait Function Factors Limiting Gait Function Abnormal Tonal Influences, Decreased Activity Tolerance, Decreased Sensation,Decreased Strength,Incoordination,Poor Balance,Poor Safety Awareness Stair Climbing Evaluation Evaluation Level of Assist On Stairs Contact Guard Assistance Devices Stair Climbing Assistive Devices Right Railing Technique/Endurance Stair Climbing Direction Ascend and Descend Stair Climbing Technique Step Over Step,Step to Step Number of Steps Climbed 4 Stair Climbing Set # Repetitions (reps) 6 Comments Stair Climbing Comments Step-over ascending, step-to descending. Minimal scissoring with left during descent. PT-OP-H Neuro Start: 09/17/19 18:00 Freq: Status: Active Protocol: Document 08/04/20 13:45 DCW (Rec: 08/04/20 14:13 DCW [id number]) Sensation Evaluation Gross Sensation Gross Sensation Left UE Impaired,Left LE Impaired Sensation Description Paresthesia,Numbness,Pain Location Details Left Leg Light Touch Impaired Sharp/Dull Impaired Deep Pressure Intact/Normal Proprioception (Position) Impaired Kinesthesia (Movement) Impaired Deep Tendon Reflex & Clonus Assessment Deep Tendon Reflex Left Achilles Deep Tendon Reflex 3+ Normal But Brisk Left Patellar Deep Tendon Reflex 3+ Normal But Brisk Ankle Clonus Left Clonus Assessment 3 Beats Muscle Tone Tone Assessment Left Lower Extremity Flexor Tone Description Mild Hypotonicity PT-OP-M Strength Start: 09/17/19 18:00 Freq: Status: Active Protocol: Document 08/04/20 13:45 DCW (Rec: 08/04/20 14:13 DCW [id number]) Hip Strength Hip Manual Muscle Testing Left Flexion (L2) 3+ Fair+ Extension (S1) 3 Fair Abduction 3 Fair Adduction 4 Good External Rotation 3+ Fair+ Internal Rotation 3+ Fair+ Knee Strength Knee Manual Muscle Testing Left Flexion (S2) 4- Good- Extension (L3) 4+ Good+ Ankle/Foot Strength Ankle and Foot Manual Muscle Testing Left Dorsiflexion (L4) 4 Good Plantarflexion (S1) 3+ Fair+ Inversion 3+ Fair+ Eversion (S1) 3 Fair PT-OP-Q Treatments Start: 09/17/19 18:00 Freq: Status: Active Protocol: Document 09/01/20 15:15 DCW (Rec: 09/01/20 16:02 DCW [id number]) Gym Equipment Shuttle Recovery Unilateral Heel Raises Details Left Resistance 25# Reps/Time calf stretch at end Unilateral Squats Details Left Resistance 62# Shuttle Recovery Platform Stable Bilateral Squats Resistance 100# Shuttle Recovery Platform Stable Shuttle Balance Red Details Wide [id number] Comments Min Ax1 Gait Training Gait Activity No AD Description No AD Device Used None Level of Assistance SBA Distance/Duration 950' x1 Comments VCs to promote heel-toe gait, extend left knee during stance phase Neuro Re-Education Treatment Balance Activities Cone transfers Details Bending down to pick balls up from cone, kick cone over, balltoss to target PT-OP-R Modalities Start: 09/17/19 18:00 Freq: Status: Active Protocol: Document 09/01/20 15:15 DCW (Rec: 09/01/20 16:02 DCW [id number]) Electric Stimulation Electric Stimulation Interferential Current (IFC) Body Location L ant ankle Duration (Minutes) 15 Patient Position Sitting Combined With Heat/Cold Cold Pack PT-OP-S Aquatic Treatment Start: 09/17/19 18:00 Freq: Status: Active Protocol: Document 01/30/20 12:30 LJ (Rec: 01/30/20 14:54 LJ [id number]) Aquatics Treatment Pool Entry/Exit Pool Entry/Exit Method Lift Assistance Minimal Assistance Water Walking Slow motion Water Level Chest Level Walking Equipment wet vest, UE float, #2.5 ankle wt Level of Assistance Standby Assistance,Contact Guard Assistance,Moderate Assistance Comments emphasis on LLE extension stance phase [place] March Water Level Chest Level Walking Equipment wet vest, UE float, #2.5 ankle wt Level of Assistance Standby Assistance,Contact Guard Assistance,Moderate Assistance,Verbal Cues Forward with emphasis on reciprocal gait pattern Water Level Chest Level Level of Assistance Standby Assistance,Contact Guard Assistance,Minimal Assistance,Verbal Cues Comments wetvest, sm float on LUE, #3. 75 ankle wt on LLE start stop walking forward and backward Water Level Chest Level Walking Equipment vest Level of Assistance Contact Guard Assistance, Verbal Cues Comments wetvest, sm float on LUE, #3. 75 ankle wt on LLE Sideways Water Level Chest Level Walking Equipment wet vest, UE float, #2.5 ankle wt Level of Assistance Standby Assistance,Contact Guard Assistance,Minimal Assistance,Verbal Cues Lower Extremity Exercises SL aquats Details HH on wall Body Position Standing Water Level Waist Level Equipment wetvest Reps/Duration 2x10 LLE Comments VC to extend knee knee extensions Details seated in lift chair Equipment Ankle Weight- 5.0# Reps/Duration 20 B Comments seated in lift SLS Details bracing LLE Body Position Standing Water Level Chest Level Equipment vest Reps/Duration 1 min marching at wall Water Level Chest Level Reps/Duration 2 min Comments opposite UE/LE tapping wall squats Body Position Standing Water Level Chest Level Reps/Duration 20x Lower Extremity Stretches adductors Comments seated in chair Gastroc Body Position Sitting Reps/Duration 2 x 45 sec B Comments manual assist hip flexors Details at wall Body Position Standing Water Level Waist Level Reps/Duration 2x45 Comments manually assisted HS Details at wall Body Position Sitting Water Level Waist Level Equipment wet vest Reps/Duration 2x45 Comments sitting in lift chair assisted Upper Extremity Exercises breastroke UE's Body Position Standing Water Level Chest Level Reps/Duration 3 min Comments during walking and deep water hor ab/ad Water Level Chest Level Comments during side walking, CGA Balance step ups Details step ups/down using boxes Body Position Standing Water Level Waist Level Equipment 8 boxes Comments mod verbal cues for coordination [place] Activities [place] Activities Bicycle,Cross Country Equipment wet vest, white noodle Duration 7 min Comments Guy and cues for vertical alignmernt. PT-OP-T Assessment and Plan Start: 09/17/19 18:00 Freq: Status: Active Protocol: Document 09/01/20 15:15 DCW (Rec: 09/01/20 16:02 DCW [id number]) Physical Therapy Assessment Impairments Impairments Activity Tolerance,Balance, Coordination,Functional Activities,Functional Mobility ,Gait,Pain,ROM,Sensation, Strength,Tone,Transfers Goals Six Impairment Decreased Static Balance Short Term Goal (STG) Pt to score <9 seconds on TUG STG Duration 09/13/20 - Improving (9.05 seconds) Cat Hooker Goal (LTG) MET - Pt to score 35/56 or better on the Adler Balance NEW GOAL - Pt to score 45/56 or better on the Adler Balance Scale LTG Duration 11/03/20 Five Impairment Pt uses R rail and step-over gait pattern ascending stairs Cat Hooker Goal (LTG) Pt to ascend/descend stairs independently without use of rail LTG Duration 11/13/20 - Improving Four Impairment Pt demonstrates strength impairment throughout left LE Cat Hooker Goal (LTG) Pt to display MMT >3+/5 through L LE LTG Duration 11/13/20 - Improving Three Impairment Pt SBA for transfers and bed mobility d/t Left Neglect Cat Hooker Goal (LTG) Pt to demonstrate independent transfers and bed mobility with an ability to address left LE and UE 80% of the time LTG Duration Met Two Impairment Pt ambulates 280' CGA /s an AD Short Term Goal (STG) Pt to ambulate 400' SBA independently STG Duration Met Cat Hooker Goal (LTG) Pt to ambulate 800' during 6 MWT Independently without SBA LTG Duration 11/03/20 - Improving (1132' SBA) One Impairment Pt does not have an appropriate home exercise program Short Term Goal (STG) Pt to be independent and compliant with an appropriate HEP STG Duration Met Assessment Summary Assessment Pt continues to progress with balance and ambulation recently. Less frequently having problems related to left neglect. Physical Therapy Plan Frequency and Duration Frequency of Treatment 2x/Week Duration of Treatment 3 months Plan of Care Start Date 08/04/20 Plan of Care End Date 11/03/20 Therapeutic Interventions Therapeutic Interventions Aquatic Therapy,Balance Training,Coordination Training ,Gait Training,Home Exercise Program,Manual Therapy, Neuromuscular Re-education, Patient/Caregiver Education, Self-Care/Home Management, Therapeutic Activities, Therapeutic Exercises Modalities Cold Pack/Ice Massage,Electric Stimulation,Hot Packs, Ultrasound Next Visit Focus/Plan Next Note Type Treatment Note Next Visit Plan Continue to challenge, continue strengthening, balance and gait training with NMR. Continue deep water for cardio training and core stabilization. Focus on bilateral knee extension in shallow water gait training
--- NOTE | 2020-09-13 15:15 | PT.OTN ---
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) Physical Therapy Treatment Note PT-OP-A Visit Information Start: 09/17/19 18:00 Freq: Status: Active Protocol: Document 09/13/20 14:30 DCW (Rec: 09/13/20 15:15 DCW [id number]) Out-Patient Physical Therapy Visit Information Visit Information Visit Type Treatment Note Visit Start Time 14:30 Visit Stop Time 15:25 Total Visit Minutes 55 Visit Number 71 Number of [employer] Visits 0 Evaluation Information Evaluation Date 09/17/19 PT-OP-B Current Condition Start: 09/17/19 18:00 Freq: Status: Active Protocol: Document 09/17/19 12:00 DCW (Rec: 09/18/19 10:29 DCW [id number]) Current Condition History of Current Condition Onset Date 04/14/19 Current Complaints Hemiparesis secondary to CVA History of Current Condition Pt is a 69 year old male presenting to skilled outpatient physical therapy with left-side neglect, hemiparesis, loss of independence, and difficulty walking following an intraparenchymal hemorrhage on 04/14/19. Pt was transferred from [facility] to [facility], where a craniotomy was performed on 04/16/19. Pt completed 7 weeks of rehab/ recovery at [facility], and then underwent a second surgery on 06/26/19 to replace the skull fragment. Pt was then at an acute rehab facility 06/30-07/18/19, and since then has been receiving home health physical therapy. Pt presents today with limited left-sided function, left visual and physical neglect, difficulty with transfers, decreased activity tolerance, decreased gait, and many other secondary effects following his CVA. Pt has been working on ambulation with a vale walker with home health, and his states he has walked around 100' a few times, but always with a therapist, as she does not feel comfortable walking with him yet. Pt exclusively gets around at time of evaluation in a manual wheelchair. Pt's transfers have been going fairly well, with his caregivers performing CGA, however pt will occasionally need assistance with placement of his left UE and LE due to neglect. Pt's biggest complaint at the moment is leg pain, his reports they have tried PT, Massage, CBD il, Tylenol, Oxycodine, and Gabapentin, all with minimal benefit. Prior to CVA, pt was fully independent in all activities. Pt and have garegivers 8 hrs a day for assistance. Prior Treatments and Tests Craniotomy 04/16/19, Acute rehab, Skull fragment replacement 06/26/19, home health PT Prior Functional Status Baseline Function- ADL's Independent Baseline Function- Mobility Independent PT-OP-C Subjective Start: 09/17/19 18:00 Freq: Status: Active Protocol: Document 09/13/20 14:30 DCW (Rec: 09/13/20 15:15 DCW [id number]) OP-PT Subjective Patient Comments Patient Comments Pt reports that last week, he walked 1/2 mile on two consecutive days. PT-OP-D Balance Start: 08/04/20 14:14 Freq: Status: Active Protocol: Document 08/04/20 13:45 DCW (Rec: 08/04/20 14:28 DCW [id number]) Balance Tests Adler Balance Test Adler Balance Test Score 39/56 Adler Impairment Rating 20 to 39% Impaired (Score 34- 44) Adler Balance Assessment Evaluation Sitting to Standing Ability Independent w/out Hands Unsupported Stance Supervision- 2 minutes Sitting Unsupported, Feet on Floor Safely- 2 minutes Standing to Sitting Ability Assist, Control w/Hands Transfer Ability Safely, Hand Use Unsupported Stance- Eyes Closed Supervision, 10 seconds Unsupported Stance- Eyes Open Supervision to maintain Reaching Forward Standing Safely, 5 inches Pick- Up Object From Floor Supervision Look Behind Shoulder - Standing Shifts Weight Unilateral Turning 360 Degrees Turns slowly, but safely Unsupported Stance, Alternating Feet on 4 Steps w/Supervision Stair Unsupported Tandem Stance Small Step- 30 seconds Unilateral Leg Stance Lifts Leg/Unable to Hold Total Score Adler Total Score (out of 56 points) 39 Adler Impairment Rating 20 to 39% Impaired (Score 34- 44) PT-OP-E Functional Tests Start: 05/04/20 15:15 Freq: Status: Active Protocol: Document 08/04/20 13:45 DCW (Rec: 08/04/20 14:13 DCW [id number]) Functional Tests 6 Minute Walk Test Distance 1132' Device Used none Comments 3.14 ft/sec Timed Up and Go (TUG) Score 9.05 seconds Comments 3-trial average (10.03, 8.96, 8.16) TUG Impairment Rating 0% Impaired (Score 10) PT-OP-G Mobility & Gait Start: 09/17/19 18:00 Freq: Status: Active Protocol: Document 08/04/20 13:45 DCW (Rec: 08/04/20 14:13 DCW [id number]) OP Mobility Evaluation Bed Mobility Rolling Independent Supine to and from Sit Independent Transfers Sit to Stand SBA Bed to Chair Transfers SBA OP Gait Assessment Gait Gait Assistance Required: Standby Assistance Distance (Feet) 1,132 Assistive Devices Assistive Device None Gait Deviations General Gait Pattern Antalgic,Ataxic,Decreased Feet Clearance,Flexed Trunk, Lateral Trunk Lean Factors Limiting Gait Function Factors Limiting Gait Function Abnormal Tonal Influences, Decreased Activity Tolerance, Decreased Sensation,Decreased Strength,Incoordination,Poor Balance,Poor Safety Awareness Stair Climbing Evaluation Evaluation Level of Assist On Stairs Contact Guard Assistance Devices Stair Climbing Assistive Devices Right Railing Technique/Endurance Stair Climbing Direction Ascend and Descend Stair Climbing Technique Step Over Step,Step to Step Number of Steps Climbed 4 Stair Climbing Set # Repetitions (reps) 6 Comments Stair Climbing Comments Step-over ascending, step-to descending. Minimal scissoring with left during descent. PT-OP-H Neuro Start: 09/17/19 18:00 Freq: Status: Active Protocol: Document 08/04/20 13:45 DCW (Rec: 08/04/20 14:13 DCW [id number]) Sensation Evaluation Gross Sensation Gross Sensation Left UE Impaired,Left LE Impaired Sensation Description Paresthesia,Numbness,Pain Location Details Left Leg Light Touch Impaired Sharp/Dull Impaired Deep Pressure Intact/Normal Proprioception (Position) Impaired Kinesthesia (Movement) Impaired Deep Tendon Reflex & Clonus Assessment Deep Tendon Reflex Left Achilles Deep Tendon Reflex 3+ Normal But Brisk Left Patellar Deep Tendon Reflex 3+ Normal But Brisk Ankle Clonus Left Clonus Assessment 3 Beats Muscle Tone Tone Assessment Left Lower Extremity Flexor Tone Description Mild Hypotonicity PT-OP-M Strength Start: 09/17/19 18:00 Freq: Status: Active Protocol: Document 08/04/20 13:45 DCW (Rec: 08/04/20 14:13 DCW [id number]) Hip Strength Hip Manual Muscle Testing Left Flexion (L2) 3+ Fair+ Extension (S1) 3 Fair Abduction 3 Fair Adduction 4 Good External Rotation 3+ Fair+ Internal Rotation 3+ Fair+ Knee Strength Knee Manual Muscle Testing Left Flexion (S2) 4- Good- Extension (L3) 4+ Good+ Ankle/Foot Strength Ankle and Foot Manual Muscle Testing Left Dorsiflexion (L4) 4 Good Plantarflexion (S1) 3+ Fair+ Inversion 3+ Fair+ Eversion (S1) 3 Fair PT-OP-Q Treatments Start: 09/17/19 18:00 Freq: Status: Active Protocol: Document 09/13/20 14:30 DCW (Rec: 09/13/20 15:15 DCW [id number]) Gait Training Gait Activity No AD Description No AD Device Used None Level of Assistance SBA Distance/Duration 950' x1 Comments VCs to promote heel-toe gait, extend left knee during stance phase Neuro Re-Education Treatment Balance Activities Ball Kick Details Ball kick to goal Comments Weight shift, SLS, Coordination Balance Board Details Lateral weight shift Hurdles Details Hurdles Comments Min Ax1 Cone transfers Details Bending down to pick balls up from cone, kick cone over, balltoss to target PT-OP-R Modalities Start: 09/17/19 18:00 Freq: Status: Active Protocol: Document 09/13/20 14:30 DCW (Rec: 09/13/20 15:15 DCW [id number]) Electric Stimulation Electric Stimulation Interferential Current (IFC) Body Location L ant ankle Duration (Minutes) 15 Patient Position Sitting Combined With Heat/Cold Cold Pack PT-OP-S Aquatic Treatment Start: 09/17/19 18:00 Freq: Status: Active Protocol: Document 01/30/20 12:30 LJ (Rec: 01/30/20 14:54 LJ [id number]) Aquatics Treatment Pool Entry/Exit Pool Entry/Exit Method Lift Assistance Minimal Assistance Water Walking Slow motion Water Level Chest Level Walking Equipment wet vest, UE float, #2.5 ankle wt Level of Assistance Standby Assistance,Contact Guard Assistance,Moderate Assistance Comments emphasis on LLE extension stance phase Eugene March Water Level Chest Level Walking Equipment wet vest, UE float, #2.5 ankle wt Level of Assistance Standby Assistance,Contact Guard Assistance,Moderate Assistance,Verbal Cues Forward with emphasis on reciprocal gait pattern Water Level Chest Level Level of Assistance Standby Assistance,Contact Guard Assistance,Minimal Assistance,Verbal Cues Comments wetvest, sm float on LUE, #3. 75 ankle wt on LLE start stop walking forward and backward Water Level Chest Level Walking Equipment vest Level of Assistance Contact Guard Assistance, Verbal Cues Comments wetvest, sm float on LUE, #3. 75 ankle wt on LLE Sideways Water Level Chest Level Walking Equipment wet vest, UE float, #2.5 ankle wt Level of Assistance Standby Assistance,Contact Guard Assistance,Minimal Assistance,Verbal Cues Lower Extremity Exercises SL aquats Details HH on wall Body Position Standing Water Level Waist Level Equipment wetvest Reps/Duration 2x10 LLE Comments VC to extend knee knee extensions Details seated in lift chair Equipment Ankle Weight- 5.0# Reps/Duration 20 B Comments seated in lift SLS Details bracing LLE Body Position Standing Water Level Chest Level Equipment vest Reps/Duration 1 min marching at wall Water Level Chest Level Reps/Duration 2 min Comments opposite UE/LE tapping wall squats Body Position Standing Water Level Chest Level Reps/Duration 20x Lower Extremity Stretches adductors Comments seated in chair Gastroc Body Position Sitting Reps/Duration 2 x 45 sec B Comments manual assist hip flexors Details at wall Body Position Standing Water Level Waist Level Reps/Duration 2x45 Comments manually assisted HS Details at wall Body Position Sitting Water Level Waist Level Equipment wet vest Reps/Duration 2x45 Comments sitting in lift chair assisted Upper Extremity Exercises breastroke UE's Body Position Standing Water Level Chest Level Reps/Duration 3 min Comments during walking and deep water hor ab/ad Water Level Chest Level Comments during side walking, CGA Balance step ups Details step ups/down using boxes Body Position Standing Water Level Waist Level Equipment 8 boxes Comments mod verbal cues for coordination [place] Activities [place] Activities Bicycle,Cross Country Equipment wet vest, white noodle Duration 7 min Comments Guy and cues for vertical alignmernt. PT-OP-T Assessment and Plan Start: 09/17/19 18:00 Freq: Status: Active Protocol: Document 09/13/20 14:30 DCW (Rec: 09/13/20 15:15 DCW [id number]) Physical Therapy Assessment Impairments Impairments Activity Tolerance,Balance, Coordination,Functional Activities,Functional Mobility ,Gait,Pain,ROM,Sensation, Strength,Tone,Transfers Goals Six Impairment Decreased Static Balance Short Term Goal (STG) Pt to score <9 seconds on TUG STG Duration 09/13/20 - Improving (9.05 seconds) Chcf Goal (LTG) MET - Pt to score 35/56 or better on the Adler Balance NEW GOAL - Pt to score 45/56 or better on the Adler Balance Scale LTG Duration 11/03/20 Five Impairment Pt uses R rail and step-over gait pattern ascending stairs [employer] Systems Goal (LTG) Pt to ascend/descend stairs independently without use of rail LTG Duration 11/13/20 - Improving Four Impairment Pt demonstrates strength impairment throughout left LE Chcf Goal (LTG) Pt to display MMT >3+/5 through L LE LTG Duration 11/13/20 - Improving Three Impairment Pt SBA for transfers and bed mobility d/t Left Neglect [employer] Goal (LTG) Pt to demonstrate independent transfers and bed mobility with an ability to address left LE and UE 80% of the time LTG Duration Met Two Impairment Pt ambulates 280' CGA /s an AD Short Term Goal (STG) Pt to ambulate 400' SBA independently STG Duration Met Chcf Goal (LTG) Pt to ambulate 800' during 6 MWT Independently without SBA LTG Duration 11/03/20 - Improving (1132' SBA) One Impairment Pt does not have an appropriate home exercise program Short Term Goal (STG) Pt to be independent and compliant with an appropriate HEP STG Duration Met Assessment Summary Assessment Pt having slightly more trouble advancing left leg over hurdles today, but overall still doing very well. Physical Therapy Plan Frequency and Duration Frequency of Treatment 2x/Week Duration of Treatment 3 months Plan of Care Start Date 08/04/20 Plan of Care End Date 11/03/20 Therapeutic Interventions Therapeutic Interventions Aquatic Therapy,Balance Training,Coordination Training ,Gait Training,Home Exercise Program,Manual Therapy, Neuromuscular Re-education, Patient/Caregiver Education, Self-Care/Home Management, Therapeutic Activities, Therapeutic Exercises Modalities Cold Pack/Ice Massage,Electric Stimulation,Hot Packs, Ultrasound Next Visit Focus/Plan Next Note Type Treatment Note Next Visit Plan Continue to challenge, continue strengthening, balance and gait training with NMR. Continue deep water for cardio training and core stabilization. Focus on bilateral knee extension in shallow water gait training
--- NOTE | 2020-09-15 15:24 | PT.OTN ---
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) Physical Therapy Treatment Note PT-OP-A Visit Information Start: 09/17/19 18:00 Freq: Status: Active Protocol: Document 09/15/20 14:30 DCW (Rec: 09/15/20 15:24 DCW [id number]) Out-Patient Physical Therapy Visit Information Visit Information Visit Type Treatment Note Visit Start Time 14:30 Visit Stop Time 15:25 Total Visit Minutes 55 Visit Number 72 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 Pt was transferred from [facility] to [facility], where a craniotomy was performed on 04/16/19. Pt completed 7 weeks of rehab/ recovery at [facility], and then underwent a second surgery on 06/26/19 to replace the skull fragment. Pt was then at an acute rehab facility 06/30-07/18/19, and since then has been receiving home health physical therapy. Pt presents today with limited left-sided function, left visual and physical neglect, difficulty with transfers, decreased activity tolerance, decreased gait, and many other secondary effects following his CVA. Pt has been working on ambulation with a vale walker with home health, and his states he has walked around 100' a few times, but always with a therapist, as she does not feel comfortable walking with him yet. Pt exclusively gets around at time of evaluation in a manual wheelchair. Pt's transfers have been going fairly well, with his caregivers performing CGA, however pt will occasionally need assistance with placement of his left UE and LE due to neglect. Pt's biggest complaint at the moment is leg pain, his reports they have tried PT, Massage, CBD il, Tylenol, Oxycodine, and Gabapentin, all with minimal benefit. Prior to CVA, pt was fully independent in all activities. Pt and have garegivers 8 hrs a day for assistance. Prior Treatments and Tests Craniotomy 04/16/19, Acute rehab, Skull fragment replacement 06/26/19, home health PT Prior Functional Status Baseline Function- ADL's Independent Baseline Function- Mobility Independent PT-OP-C Subjective Start: 09/17/19 18:00 Freq: Status: Active Protocol: Document 09/15/20 14:30 DCW (Rec: 09/15/20 15:24 DCW [id number]) OP-PT Subjective Patient Comments Patient Comments My foot was hurting yesterday morning. I couldn't really figure out why. PT-OP-D Balance Start: 08/04/20 14:14 Freq: Status: Active Protocol: Document 08/04/20 13:45 DCW (Rec: 08/04/20 14:28 DCW [id number]) Balance Tests Adler Balance Test Adler Balance Test Score 39/56 Adler Impairment Rating 20 to 39% Impaired (Score 34- 44) Adler Balance Assessment Evaluation Sitting to Standing Ability Independent w/out Hands Unsupported Stance Supervision- 2 minutes Sitting Unsupported, Feet on Floor Safely- 2 minutes Standing to Sitting Ability Assist, Control w/Hands Transfer Ability Safely, Hand Use Unsupported Stance- Eyes Closed Supervision, 10 seconds Unsupported Stance- Eyes Open Supervision to maintain Reaching Forward Standing Safely, 5 inches Pick- Up Object From Floor Supervision Look Behind Shoulder - Standing Shifts Weight Unilateral Turning 360 Degrees Turns slowly, but safely Unsupported Stance, Alternating Feet on 4 Steps w/Supervision Stair Unsupported Tandem Stance Small Step- 30 seconds Unilateral Leg Stance Lifts Leg/Unable to Hold Total Score Adler Total Score (out of 56 points) 39 Adler Impairment Rating 20 to 39% Impaired (Score 34- 44) PT-OP-E Functional Tests Start: 05/04/20 15:15 Freq: Status: Active Protocol: Document 08/04/20 13:45 DCW (Rec: 08/04/20 14:13 DCW [id number]) Functional Tests 6 Minute Walk Test Distance 1132' Device Used none Comments 3.14 ft/sec Timed Up and Go (TUG) Score 9.05 seconds Comments 3-trial average (10.03, 8.96, 8.16) TUG Impairment Rating 0% Impaired (Score 10) PT-OP-G Mobility & Gait Start: 09/17/19 18:00 Freq: Status: Active Protocol: Document 08/04/20 13:45 DCW (Rec: 08/04/20 14:13 DCW [id number]) OP Mobility Evaluation Bed Mobility Rolling Independent Supine to and from Sit Independent Transfers Sit to Stand SBA Bed to Chair Transfers SBA OP Gait Assessment Gait Gait Assistance Required: Standby Assistance Distance (Feet) 1,132 Assistive Devices Assistive Device None Gait Deviations General Gait Pattern Antalgic,Ataxic,Decreased Feet Clearance,Flexed Trunk, Lateral Trunk Lean Factors Limiting Gait Function Factors Limiting Gait Function Abnormal Tonal Influences, Decreased Activity Tolerance, Decreased Sensation,Decreased Strength,Incoordination,Poor Balance,Poor Safety Awareness Stair Climbing Evaluation Evaluation Level of Assist On Stairs Contact Guard Assistance Devices Stair Climbing Assistive Devices Right Railing Technique/Endurance Stair Climbing Direction Ascend and Descend Stair Climbing Technique Step Over Step,Step to Step Number of Steps Climbed 4 Stair Climbing Set # Repetitions (reps) 6 Comments Stair Climbing Comments Step-over ascending, step-to descending. Minimal scissoring with left during descent. PT-OP-H Neuro Start: 09/17/19 18:00 Freq: Status: Active Protocol: Document 08/04/20 13:45 DCW (Rec: 08/04/20 14:13 DCW [id number]) Sensation Evaluation Gross Sensation Gross Sensation Left UE Impaired,Left LE Impaired Sensation Description Paresthesia,Numbness,Pain Location Details Left Leg Light Touch Impaired Sharp/Dull Impaired Deep Pressure Intact/Normal Proprioception (Position) Impaired Kinesthesia (Movement) Impaired Deep Tendon Reflex & Clonus Assessment Deep Tendon Reflex Left Achilles Deep Tendon Reflex 3+ Normal But Brisk Left Patellar Deep Tendon Reflex 3+ Normal But Brisk Ankle Clonus Left Clonus Assessment 3 Beats Muscle Tone Tone Assessment Left Lower Extremity Flexor Tone Description Mild Hypotonicity PT-OP-M Strength Start: 09/17/19 18:00 Freq: Status: Active Protocol: Document 08/04/20 13:45 DCW (Rec: 08/04/20 14:13 DCW [id number]) Hip Strength Hip Manual Muscle Testing Left Flexion (L2) 3+ Fair+ Extension (S1) 3 Fair Abduction 3 Fair Adduction 4 Good External Rotation 3+ Fair+ Internal Rotation 3+ Fair+ Knee Strength Knee Manual Muscle Testing Left Flexion (S2) 4- Good- Extension (L3) 4+ Good+ Ankle/Foot Strength Ankle and Foot Manual Muscle Testing Left Dorsiflexion (L4) 4 Good Plantarflexion (S1) 3+ Fair+ Inversion 3+ Fair+ Eversion (S1) 3 Fair PT-OP-Q Treatments Start: 09/17/19 18:00 Freq: Status: Active Protocol: Document 09/15/20 14:30 DCW (Rec: 09/15/20 15:24 DCW [id number]) Gym Equipment Shuttle Recovery Unilateral Heel Raises Details Left Resistance 25# Reps/Time calf stretch at end Unilateral Squats Details Left Resistance 62# Shuttle Recovery Platform Stable Bilateral Squats Resistance 100# Shuttle Recovery Platform Stable Shuttle Balance Red Details Wide [id number] Comments Min Ax1 Gait Training Gait Activity No AD Description No AD Device Used None Level of Assistance SBA Distance/Duration 940' x1 Comments VCs to promote heel-toe gait, extend left knee during stance phase Neuro Re-Education Treatment Balance Activities Hurdles Details Hurdles Comments Min Ax1 Cone transfers Details Bending down to pick balls up from cone, kick cone over, balltoss to target PT-OP-R Modalities Start: 09/17/19 18:00 Freq: Status: Active Protocol: Document 09/15/20 14:30 DCW (Rec: 09/15/20 15:24 DCW [id number]) Electric Stimulation Electric Stimulation Interferential Current (IFC) Body Location L ant ankle Duration (Minutes) 15 Patient Position Sitting Combined With Heat/Cold Cold Pack PT-OP-S Aquatic Treatment Start: 09/17/19 18:00 Freq: Status: Active Protocol: Document 01/30/20 12:30 LJ (Rec: 01/30/20 14:54 LJ [id number]) Aquatics Treatment Pool Entry/Exit Pool Entry/Exit Method Lift Assistance Minimal Assistance Water Walking Slow motion Water Level Chest Level Walking Equipment wet vest, UE float, #2.5 ankle wt Level of Assistance Standby Assistance,Contact Guard Assistance,Moderate Assistance Comments emphasis on LLE extension stance phase [place] March Water Level Chest Level Walking Equipment wet vest, UE float, #2.5 ankle wt Level of Assistance Standby Assistance,Contact Guard Assistance,Moderate Assistance,Verbal Cues Forward with emphasis on reciprocal gait pattern Water Level Chest Level Level of Assistance Standby Assistance,Contact Guard Assistance,Minimal Assistance,Verbal Cues Comments wetvest, sm float on LUE, #3. 75 ankle wt on LLE start stop walking forward and backward Water Level Chest Level Walking Equipment vest Level of Assistance Contact Guard Assistance, Verbal Cues Comments wetvest, sm float on LUE, #3. 75 ankle wt on LLE Sideways Water Level Chest Level Walking Equipment wet vest, UE float, #2.5 ankle wt Level of Assistance Standby Assistance,Contact Guard Assistance,Minimal Assistance,Verbal Cues Lower Extremity Exercises SL aquats Details HH on wall Body Position Standing Water Level Waist Level Equipment wetvest Reps/Duration 2x10 LLE Comments VC to extend knee knee extensions Details seated in lift chair Equipment Ankle Weight- 5.0# Reps/Duration 20 B Comments seated in lift SLS Details bracing LLE Body Position Standing Water Level Chest Level Equipment vest Reps/Duration 1 min marching at wall Water Level Chest Level Reps/Duration 2 min Comments opposite UE/LE tapping wall squats Body Position Standing Water Level Chest Level Reps/Duration 20x Lower Extremity Stretches adductors Comments seated in chair Gastroc Body Position Sitting Reps/Duration 2 x 45 sec B Comments manual assist hip flexors Details at wall Body Position Standing Water Level Waist Level Reps/Duration 2x45 Comments manually assisted HS Details at wall Body Position Sitting Water Level Waist Level Equipment wet vest Reps/Duration 2x45 Comments sitting in lift chair assisted Upper Extremity Exercises breastroke UE's Body Position Standing Water Level Chest Level Reps/Duration 3 min Comments during walking and deep water hor ab/ad Water Level Chest Level Comments during side walking, CGA Balance step ups Details step ups/down using boxes Body Position Standing Water Level Waist Level Equipment 8 boxes Comments mod verbal cues for coordination Rutledge Activities Rutledge Activities Bicycle,Cross Country Equipment wet vest, white noodle Duration 7 min Comments Guy and cues for vertical alignmernt. PT-OP-T Assessment and Plan Start: 09/17/19 18:00 Freq: Status: Active Protocol: Document 09/15/20 14:30 DCW (Rec: 09/15/20 15:24 DCW [id number]) Physical Therapy Assessment Impairments Impairments Activity Tolerance,Balance, Coordination,Functional Activities,Functional Mobility ,Gait,Pain,ROM,Sensation, Strength,Tone,Transfers Goals Six Impairment Decreased Static Balance Short Term Goal (STG) Pt to score <9 seconds on TUG STG Duration 09/13/20 - Improving (9.05 seconds) Alf Goal (LTG) MET - Pt to score 35/56 or better on the Adler Balance NEW GOAL - Pt to score 45/56 or better on the Adler Balance Scale LTG Duration 11/03/20 Five Impairment Pt uses R rail and step-over gait pattern ascending stairs Alf Goal (LTG) Pt to ascend/descend stairs independently without use of rail LTG Duration 11/13/20 - Improving Four Impairment Pt demonstrates strength impairment throughout left LE Coat Maker Goal (LTG) Pt to display MMT >3+/5 through L LE LTG Duration 11/13/20 - Improving Three Impairment Pt SBA for transfers and bed mobility d/t Left Neglect Alf Goal (LTG) Pt to demonstrate independent transfers and bed mobility with an ability to address left LE and UE 80% of the time LTG Duration Met Two Impairment Pt ambulates 280' CGA /s an AD Short Term Goal (STG) Pt to ambulate 400' SBA independently STG Duration Met Coat Maker Goal (LTG) Pt to ambulate 800' during 6 MWT Independently without SBA LTG Duration 11/03/20 - Improving (1132' SBA) One Impairment Pt does not have an appropriate home exercise program Short Term Goal (STG) Pt to be independent and compliant with an appropriate HEP STG Duration Met Assessment Summary Assessment Pt worked hard today on advancing left foot over hurdles, had some instability, but was much more effective with foot clearance. Physical Therapy Plan Frequency and Duration Frequency of Treatment 2x/Week Duration of Treatment 3 months Plan of Care Start Date 08/04/20 Plan of Care End Date 11/03/20 Therapeutic Interventions Therapeutic Interventions Aquatic Therapy,Balance Training,Coordination Training ,Gait Training,Home Exercise Program,Manual Therapy, Neuromuscular Re-education, Patient/Caregiver Education, Self-Care/Home Management, Therapeutic Activities, Therapeutic Exercises Modalities Cold Pack/Ice Massage,Electric Stimulation,Hot Packs, Ultrasound Next Visit Focus/Plan Next Note Type Treatment Note Next Visit Plan Continue to challenge, continue strengthening, balance and gait training with NMR. Continue deep water for cardio training and core stabilization. Focus on bilateral knee extension in shallow water gait training
--- NOTE | 2020-09-20 15:17 | PT.OTN ---
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) Physical Therapy Treatment Note PT-OP-A Visit Information Start: 09/17/19 18:00 Freq: Status: Active Protocol: Document 09/20/20 14:30 DCW (Rec: 09/20/20 15:17 DCW [id number]) Out-Patient Physical Therapy Visit Information Visit Information Visit Type Treatment Note Visit Start Time 14:30 Visit Stop Time 15:25 Total Visit Minutes 55 Visit Number 73 Number of BAKELITE MOLDER Visits 0 Evaluation Information Evaluation Date 09/17/19 PT-OP-B Current Condition Start: 09/17/19 18:00 Freq: Status: Active Protocol: Document 09/17/19 12:00 DCW (Rec: 09/18/19 10:29 DCW [id number]) Current Condition History of Current Condition Onset Date 04/14/19 Current Complaints Hemiparesis secondary to CVA History of Current Condition Pt is a 69 year old male presenting to skilled outpatient physical therapy with left-side neglect, hemiparesis, loss of independence, and difficulty walking following an intraparenchymal hemorrhage on 04/14/19. Pt was transferred from [facility] to [facility], where a craniotomy was performed on 04/16/19. Pt completed 7 weeks of rehab/ recovery at [facility], and then underwent a second surgery on 06/26/19 to replace the skull fragment. Pt was then at an acute rehab facility 06/30-07/18/19, and since then has been receiving home health physical therapy. Pt presents today with limited left-sided function, left visual and physical neglect, difficulty with transfers, decreased activity tolerance, decreased gait, and many other secondary effects following his CVA. Pt has been working on ambulation with a vale walker with home health, and his states he has walked around 100' a few times, but always with a therapist, as she does not feel comfortable walking with him yet. Pt exclusively gets around at time of evaluation in a manual wheelchair. Pt's transfers have been going fairly well, with his caregivers performing CGA, however pt will occasionally need assistance with placement of his left UE and LE due to neglect. Pt's biggest complaint at the moment is leg pain, his reports they have tried PT, Massage, CBD il, Tylenol, Oxycodine, and Gabapentin, all with minimal benefit. Prior to CVA, pt was fully independent in all activities. Pt and have garegivers 8 hrs a day for assistance. Prior Treatments and Tests Craniotomy 04/16/19, Acute rehab, Skull fragment replacement 06/26/19, home health PT Prior Functional Status Baseline Function- ADL's Independent Baseline Function- Mobility Independent PT-OP-C Subjective Start: 09/17/19 18:00 Freq: Status: Active Protocol: Document 09/20/20 14:30 DCW (Rec: 09/20/20 15:17 DCW [id number]) OP-PT Subjective Patient Comments Patient Comments Not good but alright. PT-OP-D Balance Start: 08/04/20 14:14 Freq: Status: Active Protocol: Document 08/04/20 13:45 DCW (Rec: 08/04/20 14:28 DCW [id number]) Balance Tests Adler Balance Test Adler Balance Test Score 39/56 Adler Impairment Rating 20 to 39% Impaired (Score 34- 44) Adler Balance Assessment Evaluation Sitting to Standing Ability Independent w/out Hands Unsupported Stance Supervision- 2 minutes Sitting Unsupported, Feet on Floor Safely- 2 minutes Standing to Sitting Ability Assist, Control w/Hands Transfer Ability Safely, Hand Use Unsupported Stance- Eyes Closed Supervision, 10 seconds Unsupported Stance- Eyes Open Supervision to maintain Reaching Forward Standing Safely, 5 inches Pick- Up Object From Floor Supervision Look Behind Shoulder - Standing Shifts Weight Unilateral Turning 360 Degrees Turns slowly, but safely Unsupported Stance, Alternating Feet on 4 Steps w/Supervision Stair Unsupported Tandem Stance Small Step- 30 seconds Unilateral Leg Stance Lifts Leg/Unable to Hold Total Score Adler Total Score (out of 56 points) 39 Adler Impairment Rating 20 to 39% Impaired (Score 34- 44) PT-OP-E Functional Tests Start: 05/04/20 15:15 Freq: Status: Active Protocol: Document 08/04/20 13:45 DCW (Rec: 08/04/20 14:13 DCW [id number]) Functional Tests 6 Minute Walk Test Distance 1132' Device Used none Comments 3.14 ft/sec Timed Up and Go (TUG) Score 9.05 seconds Comments 3-trial average (10.03, 8.96, 8.16) TUG Impairment Rating 0% Impaired (Score 10) PT-OP-G Mobility & Gait Start: 09/17/19 18:00 Freq: Status: Active Protocol: Document 08/04/20 13:45 DCW (Rec: 08/04/20 14:13 DCW [id number]) OP Mobility Evaluation Bed Mobility Rolling Independent Supine to and from Sit Independent Transfers Sit to Stand SBA Bed to Chair Transfers SBA OP Gait Assessment Gait Gait Assistance Required: Standby Assistance Distance (Feet) 1,132 Assistive Devices Assistive Device None Gait Deviations General Gait Pattern Antalgic,Ataxic,Decreased Feet Clearance,Flexed Trunk, Lateral Trunk Lean Factors Limiting Gait Function Factors Limiting Gait Function Abnormal Tonal Influences, Decreased Activity Tolerance, Decreased Sensation,Decreased Strength,Incoordination,Poor Balance,Poor Safety Awareness Stair Climbing Evaluation Evaluation Level of Assist On Stairs Contact Guard Assistance Devices Stair Climbing Assistive Devices Right Railing Technique/Endurance Stair Climbing Direction Ascend and Descend Stair Climbing Technique Step Over Step,Step to Step Number of Steps Climbed 4 Stair Climbing Set # Repetitions (reps) 6 Comments Stair Climbing Comments Step-over ascending, step-to descending. Minimal scissoring with left during descent. PT-OP-H Neuro Start: 09/17/19 18:00 Freq: Status: Active Protocol: Document 08/04/20 13:45 DCW (Rec: 08/04/20 14:13 DCW [id number]) Sensation Evaluation Gross Sensation Gross Sensation Left UE Impaired,Left LE Impaired Sensation Description Paresthesia,Numbness,Pain Location Details Left Leg Light Touch Impaired Sharp/Dull Impaired Deep Pressure Intact/Normal Proprioception (Position) Impaired Kinesthesia (Movement) Impaired Deep Tendon Reflex & Clonus Assessment Deep Tendon Reflex Left Achilles Deep Tendon Reflex 3+ Normal But Brisk Left Patellar Deep Tendon Reflex 3+ Normal But Brisk Ankle Clonus Left Clonus Assessment 3 Beats Muscle Tone Tone Assessment Left Lower Extremity Flexor Tone Description Mild Hypotonicity PT-OP-M Strength Start: 09/17/19 18:00 Freq: Status: Active Protocol: Document 08/04/20 13:45 DCW (Rec: 08/04/20 14:13 DCW [id number]) Hip Strength Hip Manual Muscle Testing Left Flexion (L2) 3+ Fair+ Extension (S1) 3 Fair Abduction 3 Fair Adduction 4 Good External Rotation 3+ Fair+ Internal Rotation 3+ Fair+ Knee Strength Knee Manual Muscle Testing Left Flexion (S2) 4- Good- Extension (L3) 4+ Good+ Ankle/Foot Strength Ankle and Foot Manual Muscle Testing Left Dorsiflexion (L4) 4 Good Plantarflexion (S1) 3+ Fair+ Inversion 3+ Fair+ Eversion (S1) 3 Fair PT-OP-Q Treatments Start: 09/17/19 18:00 Freq: Status: Active Protocol: Document 09/20/20 14:30 DCW (Rec: 09/20/20 15:17 DCW [id number]) Gym Equipment Shuttle Recovery Unilateral Heel Raises Details Left Resistance 25# Reps/Time calf stretch at end Unilateral Squats Details Left Resistance 62# Shuttle Recovery Platform Stable Bilateral Squats Resistance 100# Shuttle Recovery Platform Stable Gait Training Gait Activity No AD Description No AD Device Used None Level of Assistance SBA Distance/Duration 950' x1 Comments VCs to promote heel-toe gait, extend left knee during stance phase Neuro Re-Education Treatment Balance Activities Ball Kick Details Ball kick to goal Comments Weight shift, SLS, Coordination Balance Board Details Lateral weight shift Cone transfers Details Bending down to pick balls up from cone, kick cone over, balltoss to target PT-OP-R Modalities Start: 09/17/19 18:00 Freq: Status: Active Protocol: Document 09/20/20 14:30 DCW (Rec: 09/20/20 15:17 DCW [id number]) Electric Stimulation Electric Stimulation Interferential Current (IFC) Body Location L ant ankle Duration (Minutes) 15 Patient Position Sitting Combined With Heat/Cold Cold Pack PT-OP-S Aquatic Treatment Start: 09/17/19 18:00 Freq: Status: Active Protocol: Document 01/30/20 12:30 LJ (Rec: 01/30/20 14:54 LJ [id number]) Aquatics Treatment Pool Entry/Exit Pool Entry/Exit Method Lift Assistance Minimal Assistance Water Walking Slow motion Water Level Chest Level Walking Equipment wet vest, UE float, #2.5 ankle wt Level of Assistance Standby Assistance,Contact Guard Assistance,Moderate Assistance Comments emphasis on LLE extension stance phase [place] March Water Level Chest Level Walking Equipment wet vest, UE float, #2.5 ankle wt Level of Assistance Standby Assistance,Contact Guard Assistance,Moderate Assistance,Verbal Cues Forward with emphasis on reciprocal gait pattern Water Level Chest Level Level of Assistance Standby Assistance,Contact Guard Assistance,Minimal Assistance,Verbal Cues Comments wetvest, sm float on LUE, #3. 75 ankle wt on LLE start stop walking forward and backward Water Level Chest Level Walking Equipment vest Level of Assistance Contact Guard Assistance, Verbal Cues Comments wetvest, sm float on LUE, #3. 75 ankle wt on LLE Sideways Water Level Chest Level Walking Equipment wet vest, UE float, #2.5 ankle wt Level of Assistance Standby Assistance,Contact Guard Assistance,Minimal Assistance,Verbal Cues Lower Extremity Exercises SL aquats Details HH on wall Body Position Standing Water Level Waist Level Equipment wetvest Reps/Duration 2x10 LLE Comments VC to extend knee knee extensions Details seated in lift chair Equipment Ankle Weight- 5.0# Reps/Duration 20 B Comments seated in lift SLS Details bracing LLE Body Position Standing Water Level Chest Level Equipment vest Reps/Duration 1 min marching at wall Water Level Chest Level Reps/Duration 2 min Comments opposite UE/LE tapping wall squats Body Position Standing Water Level Chest Level Reps/Duration 20x Lower Extremity Stretches adductors Comments seated in chair Gastroc Body Position Sitting Reps/Duration 2 x 45 sec B Comments manual assist hip flexors Details at wall Body Position Standing Water Level Waist Level Reps/Duration 2x45 Comments manually assisted HS Details at wall Body Position Sitting Water Level Waist Level Equipment wet vest Reps/Duration 2x45 Comments sitting in lift chair assisted Upper Extremity Exercises breastroke UE's Body Position Standing Water Level Chest Level Reps/Duration 3 min Comments during walking and deep water hor ab/ad Water Level Chest Level Comments during side walking, CGA Balance step ups Details step ups/down using boxes Body Position Standing Water Level Waist Level Equipment 8 boxes Comments mod verbal cues for coordination [place] Activities [place] Activities Bicycle,Cross Country Equipment wet vest, white noodle Duration 7 min Comments Guy and cues for vertical alignmernt. PT-OP-T Assessment and Plan Start: 09/17/19 18:00 Freq: Status: Active Protocol: Document 09/20/20 14:30 DCW (Rec: 09/20/20 15:17 DCW [id number]) Physical Therapy Assessment Impairments Impairments Activity Tolerance,Balance, Coordination,Functional Activities,Functional Mobility ,Gait,Pain,ROM,Sensation, Strength,Tone,Transfers Goals Six Impairment Decreased Static Balance Short Term Goal (STG) Pt to score <9 seconds on TUG STG Duration 09/13/20 - Improving (9.05 seconds) Fdc Goal (LTG) MET - Pt to score 35/56 or better on the Adler Balance NEW GOAL - Pt to score 45/56 or better on the Adler Balance Scale LTG Duration 11/03/20 Five Impairment Pt uses R rail and step-over gait pattern ascending stairs Lingo Cleaner Goal (LTG) Pt to ascend/descend stairs independently without use of rail LTG Duration 11/13/20 - Improving Four Impairment Pt demonstrates strength impairment throughout left LE Lingo Cleaner Goal (LTG) Pt to display MMT >3+/5 through L LE LTG Duration 11/13/20 - Improving Three Impairment Pt SBA for transfers and bed mobility d/t Left Neglect Fdc Goal (LTG) Pt to demonstrate independent transfers and bed mobility with an ability to address left LE and UE 80% of the time LTG Duration Met Two Impairment Pt ambulates 280' CGA /s an AD Short Term Goal (STG) Pt to ambulate 400' SBA independently STG Duration Met Fdc Goal (LTG) Pt to ambulate 800' during 6 MWT Independently without SBA LTG Duration 11/03/20 - Improving (1132' SBA) One Impairment Pt does not have an appropriate home exercise program Short Term Goal (STG) Pt to be independent and compliant with an appropriate HEP STG Duration Met Assessment Summary Assessment Pt did well today with activity tolerance, shows improved weight shift. Therapist did note today when putting electrodes on his foot that pt appears to have the beginnings of an ingrown toenail on his left great toe. Toe red and slightly swollen, mild discharge along base of nail. Pt instructed to follow up with PCP. Physical Therapy Plan Frequency and Duration Frequency of Treatment 2x/Week Duration of Treatment 3 months Plan of Care Start Date 08/04/20 Plan of Care End Date 11/03/20 Therapeutic Interventions Therapeutic Interventions Aquatic Therapy,Balance Training,Coordination Training ,Gait Training,Home Exercise Program,Manual Therapy, Neuromuscular Re-education, Patient/Caregiver Education, Self-Care/Home Management, Therapeutic Activities, Therapeutic Exercises Modalities Cold Pack/Ice Massage,Electric Stimulation,Hot Packs, Ultrasound Next Visit Focus/Plan Next Note Type Treatment Note Next Visit Plan Continue to challenge, continue strengthening, balance and gait training with NMR. Continue deep water for cardio training and core stabilization. Focus on bilateral knee extension in shallow water gait training
--- NOTE | 2020-09-22 15:14 | PT.OTN ---
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) Physical Therapy Treatment Note PT-OP-A Visit Information Start: 09/17/19 18:00 Freq: Status: Active Protocol: Document 09/22/20 14:30 DCW (Rec: 09/22/20 15:14 DCW [id number]) Out-Patient Physical Therapy Visit Information Visit Information Visit Type Treatment Note Visit Start Time 14:30 Visit Stop Time 15:20 Total Visit Minutes 50 Visit Number 74 Number of EDITOR MAGAZINE Visits 0 Evaluation Information Evaluation Date 09/17/19 PT-OP-B Current Condition Start: 09/17/19 18:00 Freq: Status: Active Protocol: Document 09/17/19 12:00 DCW (Rec: 09/18/19 10:29 DCW [id number]) Current Condition History of Current Condition Onset Date 04/14/19 Current Complaints Hemiparesis secondary to CVA History of Current Condition Pt is a 69 year old male presenting to skilled outpatient physical therapy with left-side neglect, hemiparesis, loss of independence, and difficulty walking following an intraparenchymal hemorrhage on 04/14/19. Pt was transferred from [facility] to [facility], where a craniotomy was performed on 04/16/19. Pt completed 7 weeks of rehab/ recovery at [facility], and then underwent a second surgery on 06/26/19 to replace the skull fragment. Pt was then at an acute rehab facility 06/30-07/18/19, and since then has been receiving home health physical therapy. Pt presents today with limited left-sided function, left visual and physical neglect, difficulty with transfers, decreased activity tolerance, decreased gait, and many other secondary effects following his CVA. Pt has been working on ambulation with a vale walker with home health, and his states he has walked around 100' a few times, but always with a therapist, as she does not feel comfortable walking with him yet. Pt exclusively gets around at time of evaluation in a manual wheelchair. Pt's transfers have been going fairly well, with his caregivers performing CGA, however pt will occasionally need assistance with placement of his left UE and LE due to neglect. Pt's biggest complaint at the moment is leg pain, his reports they have tried PT, Massage, CBD il, Tylenol, Oxycodine, and Gabapentin, all with minimal benefit. Prior to CVA, pt was fully independent in all activities. Pt and have garegivers 8 hrs a day for assistance. Prior Treatments and Tests Craniotomy 04/16/19, Acute rehab, Skull fragment replacement 06/26/19, home health PT Prior Functional Status Baseline Function- ADL's Independent Baseline Function- Mobility Independent PT-OP-C Subjective Start: 09/17/19 18:00 Freq: Status: Active Protocol: Document 09/22/20 14:30 DCW (Rec: 09/22/20 15:14 DCW [id number]) OP-PT Subjective Patient Comments Patient Comments I'm doing as well as can be expected. PT-OP-D Balance Start: 08/04/20 14:14 Freq: Status: Active Protocol: Document 08/04/20 13:45 DCW (Rec: 08/04/20 14:28 DCW [id number]) Balance Tests Adler Balance Test Adler Balance Test Score 39/56 Adler Impairment Rating 20 to 39% Impaired (Score 34- 44) Adler Balance Assessment Evaluation Sitting to Standing Ability Independent w/out Hands Unsupported Stance Supervision- 2 minutes Sitting Unsupported, Feet on Floor Safely- 2 minutes Standing to Sitting Ability Assist, Control w/Hands Transfer Ability Safely, Hand Use Unsupported Stance- Eyes Closed Supervision, 10 seconds Unsupported Stance- Eyes Open Supervision to maintain Reaching Forward Standing Safely, 5 inches Pick- Up Object From Floor Supervision Look Behind Shoulder - Standing Shifts Weight Unilateral Turning 360 Degrees Turns slowly, but safely Unsupported Stance, Alternating Feet on 4 Steps w/Supervision Stair Unsupported Tandem Stance Small Step- 30 seconds Unilateral Leg Stance Lifts Leg/Unable to Hold Total Score Adler Total Score (out of 56 points) 39 Adler Impairment Rating 20 to 39% Impaired (Score 34- 44) PT-OP-E Functional Tests Start: 05/04/20 15:15 Freq: Status: Active Protocol: Document 08/04/20 13:45 DCW (Rec: 08/04/20 14:13 DCW [id number]) Functional Tests 6 Minute Walk Test Distance 1132' Device Used none Comments 3.14 ft/sec Timed Up and Go (TUG) Score 9.05 seconds Comments 3-trial average (10.03, 8.96, 8.16) TUG Impairment Rating 0% Impaired (Score 10) PT-OP-G Mobility & Gait Start: 09/17/19 18:00 Freq: Status: Active Protocol: Document 08/04/20 13:45 DCW (Rec: 08/04/20 14:13 DCW [id number]) OP Mobility Evaluation Bed Mobility Rolling Independent Supine to and from Sit Independent Transfers Sit to Stand SBA Bed to Chair Transfers SBA OP Gait Assessment Gait Gait Assistance Required: Standby Assistance Distance (Feet) 1,132 Assistive Devices Assistive Device None Gait Deviations General Gait Pattern Antalgic,Ataxic,Decreased Feet Clearance,Flexed Trunk, Lateral Trunk Lean Factors Limiting Gait Function Factors Limiting Gait Function Abnormal Tonal Influences, Decreased Activity Tolerance, Decreased Sensation,Decreased Strength,Incoordination,Poor Balance,Poor Safety Awareness Stair Climbing Evaluation Evaluation Level of Assist On Stairs Contact Guard Assistance Devices Stair Climbing Assistive Devices Right Railing Technique/Endurance Stair Climbing Direction Ascend and Descend Stair Climbing Technique Step Over Step,Step to Step Number of Steps Climbed 4 Stair Climbing Set # Repetitions (reps) 6 Comments Stair Climbing Comments Step-over ascending, step-to descending. Minimal scissoring with left during descent. PT-OP-H Neuro Start: 09/17/19 18:00 Freq: Status: Active Protocol: Document 08/04/20 13:45 DCW (Rec: 08/04/20 14:13 DCW [id number]) Sensation Evaluation Gross Sensation Gross Sensation Left UE Impaired,Left LE Impaired Sensation Description Paresthesia,Numbness,Pain Location Details Left Leg Light Touch Impaired Sharp/Dull Impaired Deep Pressure Intact/Normal Proprioception (Position) Impaired Kinesthesia (Movement) Impaired Deep Tendon Reflex & Clonus Assessment Deep Tendon Reflex Left Achilles Deep Tendon Reflex 3+ Normal But Brisk Left Patellar Deep Tendon Reflex 3+ Normal But Brisk Ankle Clonus Left Clonus Assessment 3 Beats Muscle Tone Tone Assessment Left Lower Extremity Flexor Tone Description Mild Hypotonicity PT-OP-M Strength Start: 09/17/19 18:00 Freq: Status: Active Protocol: Document 08/04/20 13:45 DCW (Rec: 08/04/20 14:13 DCW [id number]) Hip Strength Hip Manual Muscle Testing Left Flexion (L2) 3+ Fair+ Extension (S1) 3 Fair Abduction 3 Fair Adduction 4 Good External Rotation 3+ Fair+ Internal Rotation 3+ Fair+ Knee Strength Knee Manual Muscle Testing Left Flexion (S2) 4- Good- Extension (L3) 4+ Good+ Ankle/Foot Strength Ankle and Foot Manual Muscle Testing Left Dorsiflexion (L4) 4 Good Plantarflexion (S1) 3+ Fair+ Inversion 3+ Fair+ Eversion (S1) 3 Fair PT-OP-Q Treatments Start: 09/17/19 18:00 Freq: Status: Active Protocol: Document 09/22/20 14:30 DCW (Rec: 09/22/20 15:14 DCW [id number]) Gym Equipment Shuttle Recovery Unilateral Heel Raises Details Left Resistance 25# Reps/Time calf stretch at end Unilateral Squats Details Left Resistance 62# Shuttle Recovery Platform Stable Bilateral Squats Resistance 100# Shuttle Recovery Platform Stable Shuttle Balance Red Details Wide [id number] Comments Min Ax1 Gait Training Gait Activity No AD Description No AD Device Used None Level of Assistance SBA Distance/Duration 980' x1 Comments VCs to promote heel-toe gait, extend left knee during stance phase Neuro Re-Education Treatment Balance Activities Hurdles Details Hurdles Comments Min Ax1 Cone transfers Details Bending down to pick balls up from cone, kick cone over, balltoss to target PT-OP-R Modalities Start: 09/17/19 18:00 Freq: Status: Active Protocol: Document 09/22/20 14:30 DCW (Rec: 09/22/20 15:14 DCW [id number]) Electric Stimulation Electric Stimulation Interferential Current (IFC) Body Location L ant ankle Duration (Minutes) 15 Patient Position Sitting Combined With Heat/Cold Cold Pack PT-OP-S Aquatic Treatment Start: 09/17/19 18:00 Freq: Status: Active Protocol: Document 01/30/20 12:30 LJ (Rec: 01/30/20 14:54 LJ [id number]) Aquatics Treatment Pool Entry/Exit Pool Entry/Exit Method Lift Assistance Minimal Assistance Water Walking Slow motion Water Level Chest Level Walking Equipment wet vest, UE float, #2.5 ankle wt Level of Assistance Standby Assistance,Contact Guard Assistance,Moderate Assistance Comments emphasis on LLE extension stance phase [place] March Water Level Chest Level Walking Equipment wet vest, UE float, #2.5 ankle wt Level of Assistance Standby Assistance,Contact Guard Assistance,Moderate Assistance,Verbal Cues Forward with emphasis on reciprocal gait pattern Water Level Chest Level Level of Assistance Standby Assistance,Contact Guard Assistance,Minimal Assistance,Verbal Cues Comments wetvest, sm float on LUE, #3. 75 ankle wt on LLE start stop walking forward and backward Water Level Chest Level Walking Equipment vest Level of Assistance Contact Guard Assistance, Verbal Cues Comments wetvest, sm float on LUE, #3. 75 ankle wt on LLE Sideways Water Level Chest Level Walking Equipment wet vest, UE float, #2.5 ankle wt Level of Assistance Standby Assistance,Contact Guard Assistance,Minimal Assistance,Verbal Cues Lower Extremity Exercises SL aquats Details HH on wall Body Position Standing Water Level Waist Level Equipment wetvest Reps/Duration 2x10 LLE Comments VC to extend knee knee extensions Details seated in lift chair Equipment Ankle Weight- 5.0# Reps/Duration 20 B Comments seated in lift SLS Details bracing LLE Body Position Standing Water Level Chest Level Equipment vest Reps/Duration 1 min marching at wall Water Level Chest Level Reps/Duration 2 min Comments opposite UE/LE tapping wall squats Body Position Standing Water Level Chest Level Reps/Duration 20x Lower Extremity Stretches adductors Comments seated in chair Gastroc Body Position Sitting Reps/Duration 2 x 45 sec B Comments manual assist hip flexors Details at wall Body Position Standing Water Level Waist Level Reps/Duration 2x45 Comments manually assisted HS Details at wall Body Position Sitting Water Level Waist Level Equipment wet vest Reps/Duration 2x45 Comments sitting in lift chair assisted Upper Extremity Exercises breastroke UE's Body Position Standing Water Level Chest Level Reps/Duration 3 min Comments during walking and deep water hor ab/ad Water Level Chest Level Comments during side walking, CGA Balance step ups Details step ups/down using boxes Body Position Standing Water Level Waist Level Equipment 8 boxes Comments mod verbal cues for coordination [place] Activities [place] Activities Bicycle,Cross Country Equipment wet vest, white noodle Duration 7 min Comments Guy and cues for vertical alignmernt. PT-OP-T Assessment and Plan Start: 09/17/19 18:00 Freq: Status: Active Protocol: Document 09/22/20 14:30 DCW (Rec: 09/22/20 15:14 DCW [id number]) Physical Therapy Assessment Impairments Impairments Activity Tolerance,Balance, Coordination,Functional Activities,Functional Mobility ,Gait,Pain,ROM,Sensation, Strength,Tone,Transfers Goals Six Impairment Decreased Static Balance Short Term Goal (STG) Pt to score <9 seconds on TUG STG Duration 09/13/20 - Improving (9.05 seconds) Data Center [employer] Goal (LTG) MET - Pt to score 35/56 or better on the Adler Balance NEW GOAL - Pt to score 45/56 or better on the Adler Balance Scale LTG Duration 11/03/20 Five Impairment Pt uses R rail and step-over gait pattern ascending stairs Data Center Architect Goal (LTG) Pt to ascend/descend stairs independently without use of rail LTG Duration 11/13/20 - Improving Four Impairment Pt demonstrates strength impairment throughout left LE Data Center Architect Goal (LTG) Pt to display MMT >3+/5 through L LE LTG Duration 11/13/20 - Improving Three Impairment Pt SBA for transfers and bed mobility d/t Left Neglect Long-Term Goal (LTG) Pt to demonstrate independent transfers and bed mobility with an ability to address left LE and UE 80% of the time LTG Duration Met Two Impairment Pt ambulates 280' CGA /s an AD Short Term Goal (STG) Pt to ambulate 400' SBA independently STG Duration Met Long-Term Goal (LTG) Pt to ambulate 800' during 6 MWT Independently without SBA LTG Duration 11/03/20 - Improving (1132' SBA) One Impairment Pt does not have an appropriate home exercise program Short Term Goal (STG) Pt to be independent and compliant with an appropriate HEP STG Duration Met Assessment Summary Assessment Pt continues to show mild improvements between visits, weight shift, balance, gait all slowly improving. Pt has appointment for possible ingrown toenail after his PT appointment today. Physical Therapy Plan Frequency and Duration Frequency of Treatment 2x/Week Duration of Treatment 3 months Plan of Care Start Date 08/04/20 Plan of Care End Date 11/03/20 Therapeutic Interventions Therapeutic Interventions Aquatic Therapy,Balance Training,Coordination Training ,Gait Training,Home Exercise Program,Manual Therapy, Neuromuscular Re-education, Patient/Caregiver Education, Self-Care/Home Management, Therapeutic Activities, Therapeutic Exercises Modalities Cold Pack/Ice Massage,Electric Stimulation,Hot Packs, Ultrasound Next Visit Focus/Plan Next Note Type Treatment Note Next Visit Plan Continue to challenge, continue strengthening, balance and gait training with NMR. Continue deep water for cardio training and core stabilization. Focus on bilateral knee extension in shallow water gait training
--- NOTE | 2020-09-27 15:15 | PT.OTN ---
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) Physical Therapy Treatment Note PT-OP-A Visit Information Start: 09/17/19 18:00 Freq: Status: Active Protocol: Document 09/27/20 14:30 DCW (Rec: 09/27/20 15:15 DCW [id number]) Out-Patient Physical Therapy Visit Information Visit Information Visit Type Treatment Note Visit Start Time 14:30 Visit Stop Time 15:25 Total Visit Minutes 55 Visit Number 75 Number of CAB WORKER Visits 0 Evaluation Information Evaluation Date 09/17/19 PT-OP-B Current Condition Start: 09/17/19 18:00 Freq: Status: Active Protocol: Document 09/17/19 12:00 DCW (Rec: 09/18/19 10:29 DCW [id number]) Current Condition History of Current Condition Onset Date 04/14/19 Current Complaints Hemiparesis secondary to CVA History of Current Condition Pt is a 69 year old male presenting to skilled outpatient physical therapy with left-side neglect, hemiparesis, loss of independence, and difficulty walking following an intraparenchymal hemorrhage on 04/14/19. Pt was transferred from [facility] to [facility], where a craniotomy was performed on 04/16/19. Pt completed 7 weeks of rehab/ recovery at [facility], and then underwent a second surgery on 06/26/19 to replace the skull fragment. Pt was then at an acute rehab facility 06/30-07/18/19, and since then has been receiving home health physical therapy. Pt presents today with limited left-sided function, left visual and physical neglect, difficulty with transfers, decreased activity tolerance, decreased gait, and many other secondary effects following his CVA. Pt has been working on ambulation with a vale walker with home health, and his states he has walked around 100' a few times, but always with a therapist, as she does not feel comfortable walking with him yet. Pt exclusively gets around at time of evaluation in a manual wheelchair. Pt's transfers have been going fairly well, with his caregivers performing CGA, however pt will occasionally need assistance with placement of his left UE and LE due to neglect. Pt's biggest complaint at the moment is leg pain, his reports they have tried PT, Massage, CBD il, Tylenol, Oxycodine, and Gabapentin, all with minimal benefit. Prior to CVA, pt was fully independent in all activities. Pt and have garegivers 8 hrs a day for assistance. Prior Treatments and Tests Craniotomy 04/16/19, Acute rehab, Skull fragment replacement 06/26/19, home health PT Prior Functional Status Baseline Function- ADL's Independent Baseline Function- Mobility Independent PT-OP-C Subjective Start: 09/17/19 18:00 Freq: Status: Active Protocol: Document 09/27/20 14:30 DCW (Rec: 09/27/20 15:15 DCW [id number]) OP-PT Subjective Patient Comments Patient Comments Pt reports he is a little tired from Speech Therapy earlier today. PT-OP-D Balance Start: 08/04/20 14:14 Freq: Status: Active Protocol: Document 08/04/20 13:45 DCW (Rec: 08/04/20 14:28 DCW [id number]) Balance Tests Adler Balance Test Adler Balance Test Score 39/56 Adler Impairment Rating 20 to 39% Impaired (Score 34- 44) Adler Balance Assessment Evaluation Sitting to Standing Ability Independent w/out Hands Unsupported Stance Supervision- 2 minutes Sitting Unsupported, Feet on Floor Safely- 2 minutes Standing to Sitting Ability Assist, Control w/Hands Transfer Ability Safely, Hand Use Unsupported Stance- Eyes Closed Supervision, 10 seconds Unsupported Stance- Eyes Open Supervision to maintain Reaching Forward Standing Safely, 5 inches Pick- Up Object From Floor Supervision Look Behind Shoulder - Standing Shifts Weight Unilateral Turning 360 Degrees Turns slowly, but safely Unsupported Stance, Alternating Feet on 4 Steps w/Supervision Stair Unsupported Tandem Stance Small Step- 30 seconds Unilateral Leg Stance Lifts Leg/Unable to Hold Total Score Adler Total Score (out of 56 points) 39 Adler Impairment Rating 20 to 39% Impaired (Score 34- 44) PT-OP-E Functional Tests Start: 05/04/20 15:15 Freq: Status: Active Protocol: Document 08/04/20 13:45 DCW (Rec: 08/04/20 14:13 DCW [id number]) Functional Tests 6 Minute Walk Test Distance 1132' Device Used none Comments 3.14 ft/sec Timed Up and Go (TUG) Score 9.05 seconds Comments 3-trial average (10.03, 8.96, 8.16) TUG Impairment Rating 0% Impaired (Score 10) PT-OP-G Mobility & Gait Start: 09/17/19 18:00 Freq: Status: Active Protocol: Document 08/04/20 13:45 DCW (Rec: 08/04/20 14:13 DCW [id number]) OP Mobility Evaluation Bed Mobility Rolling Independent Supine to and from Sit Independent Transfers Sit to Stand SBA Bed to Chair Transfers SBA OP Gait Assessment Gait Gait Assistance Required: Standby Assistance Distance (Feet) 1,132 Assistive Devices Assistive Device None Gait Deviations General Gait Pattern Antalgic,Ataxic,Decreased Feet Clearance,Flexed Trunk, Lateral Trunk Lean Factors Limiting Gait Function Factors Limiting Gait Function Abnormal Tonal Influences, Decreased Activity Tolerance, Decreased Sensation,Decreased Strength,Incoordination,Poor Balance,Poor Safety Awareness Stair Climbing Evaluation Evaluation Level of Assist On Stairs Contact Guard Assistance Devices Stair Climbing Assistive Devices Right Railing Technique/Endurance Stair Climbing Direction Ascend and Descend Stair Climbing Technique Step Over Step,Step to Step Number of Steps Climbed 4 Stair Climbing Set # Repetitions (reps) 6 Comments Stair Climbing Comments Step-over ascending, step-to descending. Minimal scissoring with left during descent. PT-OP-H Neuro Start: 09/17/19 18:00 Freq: Status: Active Protocol: Document 08/04/20 13:45 DCW (Rec: 08/04/20 14:13 DCW [id number]) Sensation Evaluation Gross Sensation Gross Sensation Left UE Impaired,Left LE Impaired Sensation Description Paresthesia,Numbness,Pain Location Details Left Leg Light Touch Impaired Sharp/Dull Impaired Deep Pressure Intact/Normal Proprioception (Position) Impaired Kinesthesia (Movement) Impaired Deep Tendon Reflex & Clonus Assessment Deep Tendon Reflex Left Achilles Deep Tendon Reflex 3+ Normal But Brisk Left Patellar Deep Tendon Reflex 3+ Normal But Brisk Ankle Clonus Left Clonus Assessment 3 Beats Muscle Tone Tone Assessment Left Lower Extremity Flexor Tone Description Mild Hypotonicity PT-OP-M Strength Start: 10/30/19 18:00 Freq: Status: Active Protocol: Document 08/04/20 13:45 DCW (Rec: 08/04/20 14:13 DCW [id number]) Hip Strength Hip Manual Muscle Testing Left Flexion (L2) 3+ Fair+ Extension (S1) 3 Fair Abduction 3 Fair Adduction 4 Good External Rotation 3+ Fair+ Internal Rotation 3+ Fair+ Knee Strength Knee Manual Muscle Testing Left Flexion (S2) 4- Good- Extension (L3) 4+ Good+ Ankle/Foot Strength Ankle and Foot Manual Muscle Testing Left Dorsiflexion (L4) 4 Good Plantarflexion (S1) 3+ Fair+ Inversion 3+ Fair+ Eversion (S1) 3 Fair PT-OP-Q Treatments Start: 09/17/19 18:00 Freq: Status: Active Protocol: Document 09/27/20 14:30 DCW (Rec: 09/27/20 15:15 DCW [id number]) Gym Equipment Shuttle Recovery Unilateral Heel Raises Details Left Resistance 25# Reps/Time calf stretch at end Unilateral Squats Details Left Resistance 62# Shuttle Recovery Platform Stable Bilateral Squats Resistance 100# Shuttle Recovery Platform Stable Shuttle Balance Red Details Wide SRIDEVI, Staggered Comments Min Ax1 Therapeutic Exercises Other Exercises Hurdles Other Exercise Name Hurdles Comments Fwd Gait Training Gait Activity No AD Description No AD Device Used None Level of Assistance SBA Distance/Duration 950' x1 Comments VCs to promote heel-toe gait, extend left knee during stance phase PT-OP-R Modalities Start: 09/17/19 18:00 Freq: Status: Active Protocol: Document 09/27/20 14:30 DCW (Rec: 09/27/20 15:15 DCW [id number]) Electric Stimulation Electric Stimulation Interferential Current (IFC) Body Location L ant ankle Duration (Minutes) 15 Patient Position Sitting Combined With Heat/Cold Cold Pack PT-OP-S Aquatic Treatment Start: 09/17/19 18:00 Freq: Status: Active Protocol: Document 01/30/20 12:30 LJ (Rec: 01/30/20 14:54 LJ [id number]) Aquatics Treatment Pool Entry/Exit Pool Entry/Exit Method Lift Assistance Minimal Assistance Water Walking Slow motion Water Level Chest Level Walking Equipment wet vest, UE float, #2.5 ankle wt Level of Assistance Standby Assistance,Contact Guard Assistance,Moderate Assistance Comments emphasis on LLE extension stance phase Concepcion March Water Level Chest Level Walking Equipment wet vest, UE float, #2.5 ankle wt Level of Assistance Standby Assistance,Contact Guard Assistance,Moderate Assistance,Verbal Cues Forward with emphasis on reciprocal gait pattern Water Level Chest Level Level of Assistance Standby Assistance,Contact Guard Assistance,Minimal Assistance,Verbal Cues Comments wetvest, sm float on LUE, #3. 75 ankle wt on LLE start stop walking forward and backward Water Level Chest Level Walking Equipment vest Level of Assistance Contact Guard Assistance, Verbal Cues Comments wetvest, sm float on LUE, #3. 75 ankle wt on LLE Sideways Water Level Chest Level Walking Equipment wet vest, UE float, #2.5 ankle wt Level of Assistance Standby Assistance,Contact Guard Assistance,Minimal Assistance,Verbal Cues Lower Extremity Exercises SL aquats Details HH on wall Body Position Standing Water Level Waist Level Equipment wetvest Reps/Duration 2x10 LLE Comments VC to extend knee knee extensions Details seated in lift chair Equipment Ankle Weight- 5.0# Reps/Duration 20 B Comments seated in lift SLS Details bracing LLE Body Position Standing Water Level Chest Level Equipment vest Reps/Duration 1 min marching at wall Water Level Chest Level Reps/Duration 2 min Comments opposite UE/LE tapping wall squats Body Position Standing Water Level Chest Level Reps/Duration 20x Lower Extremity Stretches adductors Comments seated in chair Gastroc Body Position Sitting Reps/Duration 2 x 45 sec B Comments manual assist hip flexors Details at wall Body Position Standing Water Level Waist Level Reps/Duration 2x45 Comments manually assisted HS Details at wall Body Position Sitting Water Level Waist Level Equipment wet vest Reps/Duration 2x45 Comments sitting in lift chair assisted Upper Extremity Exercises breastroke UE's Body Position Standing Water Level Chest Level Reps/Duration 3 min Comments during walking and deep water hor ab/ad Water Level Chest Level Comments during side walking, CGA Balance step ups Details step ups/down using boxes Body Position Standing Water Level Waist Level Equipment 8 boxes Comments mod verbal cues for coordination Sparks Activities Sparks Activities Bicycle,Cross Country Equipment wet vest, white noodle Duration 7 min Comments Guy and cues for vertical alignmernt. PT-OP-T Assessment and Plan Start: 09/17/19 18:00 Freq: Status: Active Protocol: Document 09/27/20 14:30 DCW (Rec: 09/27/20 15:15 DCW [id number]) Physical Therapy Assessment Impairments Impairments Activity Tolerance,Balance, Coordination,Functional Activities,Functional Mobility ,Gait,Pain,ROM,Sensation, Strength,Tone,Transfers Goals Six Impairment Decreased Static Balance Short Term Goal (STG) Pt to score <9 seconds on TUG STG Duration 09/13/20 - Improving (9.05 seconds) Mcc Goal (LTG) MET - Pt to score 35/56 or better on the Adler Balance NEW GOAL - Pt to score 45/56 or better on the Adler Balance Scale LTG Duration 11/03/20 Five Impairment Pt uses R rail and step-over gait pattern ascending stairs Remote Sensing Specialist Goal (LTG) Pt to ascend/descend stairs independently without use of rail LTG Duration 11/13/20 - Improving Four Impairment Pt demonstrates strength impairment throughout left LE Remote Sensing Specialist Goal (LTG) Pt to display MMT >3+/5 through L LE LTG Duration 11/13/20 - Improving Three Impairment Pt SBA for transfers and bed mobility d/t Left Neglect Remote Sensing Specialist Goal (LTG) Pt to demonstrate independent transfers and bed mobility with an ability to address left LE and UE 80% of the time LTG Duration Met Two Impairment Pt ambulates 280' CGA /s an AD Short Term Goal (STG) Pt to ambulate 400' SBA independently STG Duration Met Remote Sensing Specialist Goal (LTG) Pt to ambulate 800' during 6 MWT Independently without SBA LTG Duration 11/03/20 - Improving (1132' SBA) One Impairment Pt does not have an appropriate home exercise program Short Term Goal (STG) Pt to be independent and compliant with an appropriate HEP STG Duration Met Assessment Summary Assessment fatigued by end of session today, did very well pushing himself to increased activity tolerance. Physical Therapy Plan Frequency and Duration Frequency of Treatment 2x/Week Duration of Treatment 3 months Plan of Care Start Date 08/04/20 Plan of Care End Date 11/03/20 Therapeutic Interventions Therapeutic Interventions Aquatic Therapy,Balance Training,Coordination Training ,Gait Training,Home Exercise Program,Manual Therapy, Neuromuscular Re-education, Patient/Caregiver Education, Self-Care/Home Management, Therapeutic Activities, Therapeutic Exercises Modalities Cold Pack/Ice Massage,Electric Stimulation,Hot Packs, Ultrasound Next Visit Focus/Plan Next Note Type Treatment Note Next Visit Plan Continue to challenge, continue strengthening, balance and gait training with NMR. Continue deep water for cardio training and core stabilization. Focus on bilateral knee extension in shallow water gait training
--- NOTE | 2020-09-29 15:16 | PT.OTN ---
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) Physical Therapy Treatment Note PT-OP-A Visit Information Start: 09/17/19 18:00 Freq: Status: Active Protocol: Document 09/29/20 14:30 DCW (Rec: 09/29/20 15:16 DCW [id number]) Out-Patient Physical Therapy Visit Information Visit Information Visit Type Treatment Note Visit Start Time 14:30 Visit Stop Time 15:25 Total Visit Minutes 55 Visit Number 76 Number of ULTRASOUND SPECIALIST Visits 0 Evaluation Information Evaluation Date 09/17/19 PT-OP-B Current Condition Start: 09/17/19 18:00 Freq: Status: Active Protocol: Document 09/17/19 12:00 DCW (Rec: 09/18/19 10:29 DCW [id number]) Current Condition History of Current Condition Onset Date 04/14/19 Current Complaints Hemiparesis secondary to CVA History of Current Condition Pt is a 69 year old male presenting to skilled outpatient physical therapy with left-side neglect, hemiparesis, loss of independence, and difficulty walking following an intraparenchymal hemorrhage on 04/14/19. Pt was [facility], where a craniotomy was performed on 04/16/19. Pt completed 7 weeks of rehab/ recovery at [facility], and then underwent a second surgery on 06/26/19 to replace the skull fragment. Pt was then at an acute rehab facility 06/30-07/18/19, and since then has been receiving home health physical therapy. Pt presents today with limited left-sided function, left visual and physical neglect, difficulty with transfers, decreased activity tolerance, decreased gait, and many other secondary effects following his CVA. Pt has been working on ambulation with a vale walker with home health, and his states he has walked around 100' a few times, but always with a therapist, as she does not feel comfortable walking with him yet. Pt exclusively gets around at time of evaluation in a manual wheelchair. Pt's transfers have been going fairly well, with his caregivers performing CGA, however pt will occasionally need assistance with placement of his left UE and LE due to neglect. Pt's biggest complaint at the moment is leg pain, his reports they have tried PT, Massage, CBD il, Tylenol, Oxycodine, and Gabapentin, all with minimal benefit. Prior to CVA, pt was fully independent in all activities. Pt and have garegivers 8 hrs a day for assistance. Prior Treatments and Tests Craniotomy 04/16/19, Acute rehab, Skull fragment replacement 06/26/19, home health PT Prior Functional Status Baseline Function- ADL's Independent Baseline Function- Mobility Independent PT-OP-C Subjective Start: 09/17/19 18:00 Freq: Status: Active Protocol: Document 09/29/20 14:30 DCW (Rec: 09/29/20 15:16 DCW [id number]) OP-PT Subjective Patient Comments Patient Comments Pt reports he is doing well today, but notes he was getting a stabbing pain in his left foot last night. PT-OP-D Balance Start: 08/04/20 14:14 Freq: Status: Active Protocol: Document 08/04/20 13:45 DCW (Rec: 08/04/20 14:28 DCW [id number]) Balance Tests Adler Balance Test Adler Balance Test Score 39/56 Adler Impairment Rating 20 to 39% Impaired (Score 34- 44) Adler Balance Assessment Evaluation Sitting to Standing Ability Independent w/out Hands Unsupported Stance Supervision- 2 minutes Sitting Unsupported, Feet on Floor Safely- 2 minutes Standing to Sitting Ability Assist, Control w/Hands Transfer Ability Safely, Hand Use Unsupported Stance- Eyes Closed Supervision, 10 seconds Unsupported Stance- Eyes Open Supervision to maintain Reaching Forward Standing Safely, 5 inches Pick- Up Object From Floor Supervision Look Behind Shoulder - Standing Shifts Weight Unilateral Turning 360 Degrees Turns slowly, but safely Unsupported Stance, Alternating Feet on 4 Steps w/Supervision Stair Unsupported Tandem Stance Small Step- 30 seconds Unilateral Leg Stance Lifts Leg/Unable to Hold Total Score Adler Total Score (out of 56 points) 39 Adler Impairment Rating 20 to 39% Impaired (Score 34- 44) PT-OP-E Functional Tests Start: 05/04/20 15:15 Freq: Status: Active Protocol: Document 08/04/20 13:45 DCW (Rec: 08/04/20 14:13 DCW [id number]) Functional Tests 6 Minute Walk Test Distance 1132' Device Used none Comments 3.14 ft/sec Timed Up and Go (TUG) Score 9.05 seconds Comments 3-trial average (10.03, 8.96, 8.16) TUG Impairment Rating 0% Impaired (Score 10) PT-OP-G Mobility & Gait Start: 09/17/19 18:00 Freq: Status: Active Protocol: Document 08/04/20 13:45 DCW (Rec: 08/04/20 14:13 DCW [id number]) OP Mobility Evaluation Bed Mobility Rolling Independent Supine to and from Sit Independent Transfers Sit to Stand SBA Bed to Chair Transfers SBA OP Gait Assessment Gait Gait Assistance Required: Standby Assistance Distance (Feet) 1,132 Assistive Devices Assistive Device None Gait Deviations General Gait Pattern Antalgic,Ataxic,Decreased Feet Clearance,Flexed Trunk, Lateral Trunk Lean Factors Limiting Gait Function Factors Limiting Gait Function Abnormal Tonal Influences, Decreased Activity Tolerance, Decreased Sensation,Decreased Strength,Incoordination,Poor Balance,Poor Safety Awareness Stair Climbing Evaluation Evaluation Level of Assist On Stairs Contact Guard Assistance Devices Stair Climbing Assistive Devices Right Railing Technique/Endurance Stair Climbing Direction Ascend and Descend Stair Climbing Technique Step Over Step,Step to Step Number of Steps Climbed 4 Stair Climbing Set # Repetitions (reps) 6 Comments Stair Climbing Comments Step-over ascending, step-to descending. Minimal scissoring with left during descent. PT-OP-H Neuro Start: 09/17/19 18:00 Freq: Status: Active Protocol: Document 08/04/20 13:45 DCW (Rec: 08/04/20 14:13 DCW [id number]) Sensation Evaluation Gross Sensation Gross Sensation Left UE Impaired,Left LE Impaired Sensation Description Paresthesia,Numbness,Pain Location Details Left Leg Light Touch Impaired Sharp/Dull Impaired Deep Pressure Intact/Normal Proprioception (Position) Impaired Kinesthesia (Movement) Impaired Deep Tendon Reflex & Clonus Assessment Deep Tendon Reflex Left Achilles Deep Tendon Reflex 3+ Normal But Brisk Left Patellar Deep Tendon Reflex 3+ Normal But Brisk Ankle Clonus Left Clonus Assessment 3 Beats Muscle Tone Tone Assessment Left Lower Extremity Flexor Tone Description Mild Hypotonicity PT-OP-M Strength Start: 09/17/19 18:00 Freq: Status: Active Protocol: Document 08/04/20 13:45 DCW (Rec: 08/04/20 14:13 DCW [id number]) Hip Strength Hip Manual Muscle Testing Left Flexion (L2) 3+ Fair+ Extension (S1) 3 Fair Abduction 3 Fair Adduction 4 Good External Rotation 3+ Fair+ Internal Rotation 3+ Fair+ Knee Strength Knee Manual Muscle Testing Left Flexion (S2) 4- Good- Extension (L3) 4+ Good+ Ankle/Foot Strength Ankle and Foot Manual Muscle Testing Left Dorsiflexion (L4) 4 Good Plantarflexion (S1) 3+ Fair+ Inversion 3+ Fair+ Eversion (S1) 3 Fair PT-OP-Q Treatments Start: 09/17/19 18:00 Freq: Status: Active Protocol: Document 09/29/20 14:30 DCW (Rec: 09/29/20 15:16 DCW [id number]) Gym Equipment Shuttle Recovery Unilateral Heel Raises Details Left Resistance 25# Reps/Time calf stretch at end Unilateral Squats Details Left Resistance 62# Shuttle Recovery Platform Stable Bilateral Squats Resistance 100# Shuttle Recovery Platform Stable Shuttle Balance Red Details Wide SRIDEVI, Staggered Comments Min Ax1 Therapeutic Exercises Other Exercises Hurdles Other Exercise Name Hurdles Comments Fwd Gait Training Gait Activity No AD Description No AD Device Used None Level of Assistance SBA Distance/Duration 950' x1 Comments VCs to promote heel-toe gait, extend left knee during stance phase Neuro Re-Education Treatment Balance Activities Cone transfers Details Bending down to pick balls up from cone, kick cone over, balltoss to target PT-OP-R Modalities Start: 09/17/19 18:00 Freq: Status: Active Protocol: Document 09/29/20 14:30 DCW (Rec: 09/29/20 15:16 DCW [id number]) Electric Stimulation Electric Stimulation Interferential Current (IFC) Body Location L ant ankle Duration (Minutes) 15 Patient Position Sitting Combined With Heat/Cold Cold Pack PT-OP-S Aquatic Treatment Start: 09/17/19 18:00 Freq: Status: Active Protocol: Document 01/30/20 12:30 LJ (Rec: 01/30/20 14:54 LJ [id number]) Aquatics Treatment Pool Entry/Exit Pool Entry/Exit Method Lift Assistance Minimal Assistance Water Walking Slow motion Water Level Chest Level Walking Equipment wet vest, UE float, #2.5 ankle wt Level of Assistance Standby Assistance,Contact Guard Assistance,Moderate Assistance Comments emphasis on LLE extension stance phase [place] March Water Level Chest Level Walking Equipment wet vest, UE float, #2.5 ankle wt Level of Assistance Standby Assistance,Contact Guard Assistance,Moderate Assistance,Verbal Cues Forward with emphasis on reciprocal gait pattern Water Level Chest Level Level of Assistance Standby Assistance,Contact Guard Assistance,Minimal Assistance,Verbal Cues Comments wetvest, sm float on LUE, #3. 75 ankle wt on LLE start stop walking forward and backward Water Level Chest Level Walking Equipment vest Level of Assistance Contact Guard Assistance, Verbal Cues Comments wetvest, sm float on LUE, #3. 75 ankle wt on LLE Sideways Water Level Chest Level Walking Equipment wet vest, UE float, #2.5 ankle wt Level of Assistance Standby Assistance,Contact Guard Assistance,Minimal Assistance,Verbal Cues Lower Extremity Exercises SL aquats Details HH on wall Body Position Standing Water Level Waist Level Equipment wetvest Reps/Duration 2x10 LLE Comments VC to extend knee knee extensions Details seated in lift chair Equipment Ankle Weight- 5.0# Reps/Duration 20 B Comments seated in lift SLS Details bracing LLE Body Position Standing Water Level Chest Level Equipment vest Reps/Duration 1 min marching at wall Water Level Chest Level Reps/Duration 2 min Comments opposite UE/LE tapping wall squats Body Position Standing Water Level Chest Level Reps/Duration 20x Lower Extremity Stretches adductors Comments seated in chair Gastroc Body Position Sitting Reps/Duration 2 x 45 sec B Comments manual assist hip flexors Details at wall Body Position Standing Water Level Waist Level Reps/Duration 2x45 Comments manually assisted HS Details at wall Body Position Sitting Water Level Waist Level Equipment wet vest Reps/Duration 2x45 Comments sitting in lift chair assisted Upper Extremity Exercises breastroke UE's Body Position Standing Water Level Chest Level Reps/Duration 3 min Comments during walking and deep water hor ab/ad Water Level Chest Level Comments during side walking, CGA Balance step ups Details step ups/down using boxes Body Position Standing Water Level Waist Level Equipment 8 boxes Comments mod verbal cues for coordination [place] Activities [place] Activities Bicycle,Cross Country Equipment wet vest, white noodle Duration 7 min Comments Guy and cues for vertical alignmernt. PT-OP-T Assessment and Plan Start: 09/17/19 18:00 Freq: Status: Active Protocol: Document 09/29/20 14:30 DCW (Rec: 09/29/20 15:16 DCW [id number]) Physical Therapy Assessment Impairments Impairments Activity Tolerance,Balance, Coordination,Functional Activities,Functional Mobility ,Gait,Pain,ROM,Sensation, Strength,Tone,Transfers Goals Six Impairment Decreased Static Balance Short Term Goal (STG) Pt to score <9 seconds on TUG STG Duration 09/13/20 - Improving (9.05 seconds) Fdc Goal (LTG) MET - Pt to score 35/56 or better on the Adler Balance NEW GOAL - Pt to score 45/56 or better on the Adler Balance Scale LTG Duration 11/03/20 Five Impairment Pt uses R rail and step-over gait pattern ascending stairs Drafter Seismograph Goal (LTG) Pt to ascend/descend stairs independently without use of rail LTG Duration 11/13/20 - Improving Four Impairment Pt demonstrates strength impairment throughout left LE Fdc Goal (LTG) Pt to display MMT >3+/5 through L LE LTG Duration 11/13/20 - Improving Three Impairment Pt SBA for transfers and bed mobility d/t Left Neglect Drafter Seismograph Goal (LTG) Pt to demonstrate independent transfers and bed mobility with an ability to address left LE and UE 80% of the time LTG Duration Met Two Impairment Pt ambulates 280' CGA /s an AD Short Term Goal (STG) Pt to ambulate 400' SBA independently STG Duration Met Drafter Seismograph Goal (LTG) Pt to ambulate 800' during 6 MWT Independently without SBA LTG Duration 11/03/20 - Improving (1132' SBA) One Impairment Pt does not have an appropriate home exercise program Short Term Goal (STG) Pt to be independent and compliant with an appropriate HEP STG Duration Met Assessment Summary Assessment Pt doing much better with independent static standing, shows increased confidence in his own abilities. Physical Therapy Plan Frequency and Duration Frequency of Treatment 2x/Week Duration of Treatment 3 months Plan of Care Start Date 08/04/20 Plan of Care End Date 11/03/20 Therapeutic Interventions Therapeutic Interventions Aquatic Therapy,Balance Training,Coordination Training ,Gait Training,Home Exercise Program,Manual Therapy, Neuromuscular Re-education, Patient/Caregiver Education, Self-Care/Home Management, Therapeutic Activities, Therapeutic Exercises Modalities Cold Pack/Ice Massage,Electric Stimulation,Hot Packs, Ultrasound Next Visit Focus/Plan Next Note Type Treatment Note Next Visit Plan Continue to challenge, continue strengthening, balance and gait training with NMR. Continue deep water for cardio training and core stabilization. Focus on bilateral knee extension in shallow water gait training
--- NOTE | 2020-10-04 15:13 | PT.OTN ---
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) Physical Therapy Treatment Note PT-OP-A Visit Information Start: 09/17/19 18:00 Freq: Status: Active Protocol: Document 10/04/20 14:30 DCW (Rec: 10/04/20 15:13 DCW [id number]) Out-Patient Physical Therapy Visit Information Visit Information Visit Type Treatment Note Visit Start Time 14:30 Visit Stop Time 15:25 Total Visit Minutes 55 Visit Number 77 Number of [employer]PERATOR Visits 0 Evaluation Information Evaluation Date 09/17/19 PT-OP-B Current Condition Start: 09/17/19 18:00 Freq: Status: Active Protocol: Document 09/17/19 12:00 DCW (Rec: 09/18/19 10:29 DCW [id number]) Current Condition History of Current Condition Onset Date 04/14/19 Current Complaints Hemiparesis secondary to CVA History of Current Condition Pt is a 69 year old male presenting to skilled outpatient physical therapy with left-side neglect, hemiparesis, loss of independence, and difficulty walking following an intraparenchymal hemorrhage on 04/14/19. Pt was transferred from [facility] to [facility], where a craniotomy was performed on 04/16/19. Pt completed 7 weeks of rehab/ recovery at [facility], and then underwent a second surgery on 06/26/19 to replace the skull fragment. Pt was then at an acute rehab facility 06/30-07/18/19, and since then has been receiving home health physical therapy. Pt presents today with limited left-sided function, left visual and physical neglect, difficulty with transfers, decreased activity tolerance, decreased gait, and many other secondary effects following his CVA. Pt has been working on ambulation with a vale walker with home health, and his states he has walked around 100' a few times, but always with a therapist, as she does not feel comfortable walking with him yet. Pt exclusively gets around at time of evaluation in a manual wheelchair. Pt's transfers have been going fairly well, with his caregivers performing CGA, however pt will occasionally need assistance with placement of his left UE and LE due to neglect. Pt's biggest complaint at the moment is leg pain, his reports they have tried PT, Massage, CBD il, Tylenol, Oxycodine, and Gabapentin, all with minimal benefit. Prior to CVA, pt was fully independent in all activities. Pt and have garegivers 8 hrs a day for assistance. Prior Treatments and Tests Craniotomy 04/16/19, Acute rehab, Skull fragment replacement 06/26/19, home health PT Prior Functional Status Baseline Function- ADL's Independent Baseline Function- Mobility Independent PT-OP-C Subjective Start: 09/17/19 18:00 Freq: Status: Active Protocol: Document 10/04/20 14:30 DCW (Rec: 10/04/20 15:13 DCW [id number]) OP-PT Subjective Patient Comments Patient Comments Pt notes he was pretty tired after his last appointment, but is now feeling much better after a few days off from therapy. PT-OP-D Balance Start: 08/04/20 14:14 Freq: Status: Active Protocol: Document 08/04/20 13:45 DCW (Rec: 08/04/20 14:28 DCW [id number]) Balance Tests Adler Balance Test Adler Balance Test Score 39/56 Adler Impairment Rating 20 to 39% Impaired (Score 34- 44) Adler Balance Assessment Evaluation Sitting to Standing Ability Independent w/out Hands Unsupported Stance Supervision- 2 minutes Sitting Unsupported, Feet on Floor Safely- 2 minutes Standing to Sitting Ability Assist, Control w/Hands Transfer Ability Safely, Hand Use Unsupported Stance- Eyes Closed Supervision, 10 seconds Unsupported Stance- Eyes Open Supervision to maintain Reaching Forward Standing Safely, 5 inches Pick- Up Object From Floor Supervision Look Behind Shoulder - Standing Shifts Weight Unilateral Turning 360 Degrees Turns slowly, but safely Unsupported Stance, Alternating Feet on 4 Steps w/Supervision Stair Unsupported Tandem Stance Small Step- 30 seconds Unilateral Leg Stance Lifts Leg/Unable to Hold Total Score Adler Total Score (out of 56 points) 39 Adler Impairment Rating 20 to 39% Impaired (Score 34- 44) PT-OP-E Functional Tests Start: 05/04/20 15:15 Freq: Status: Active Protocol: Document 08/04/20 13:45 DCW (Rec: 08/04/20 14:13 DCW [id number]) Functional Tests 6 Minute Walk Test Distance 1132' Device Used none Comments 3.14 ft/sec Timed Up and Go (TUG) Score 9.05 seconds Comments 3-trial average (10.03, 8.96, 8.16) TUG Impairment Rating 0% Impaired (Score 10) PT-OP-G Mobility & Gait Start: 09/17/19 18:00 Freq: Status: Active Protocol: Document 08/04/20 13:45 DCW (Rec: 08/04/20 14:13 DCW [id number]) OP Mobility Evaluation Bed Mobility Rolling Independent Supine to and from Sit Independent Transfers Sit to Stand SBA Bed to Chair Transfers SBA OP Gait Assessment Gait Gait Assistance Required: Standby Assistance Distance (Feet) 1,132 Assistive Devices Assistive Device None Gait Deviations General Gait Pattern Antalgic,Ataxic,Decreased Feet Clearance,Flexed Trunk, Lateral Trunk Lean Factors Limiting Gait Function Factors Limiting Gait Function Abnormal Tonal Influences, Decreased Activity Tolerance, Decreased Sensation,Decreased Strength,Incoordination,Poor Balance,Poor Safety Awareness Stair Climbing Evaluation Evaluation Level of Assist On Stairs Contact Guard Assistance Devices Stair Climbing Assistive Devices Right Railing Technique/Endurance Stair Climbing Direction Ascend and Descend Stair Climbing Technique Step Over Step,Step to Step Number of Steps Climbed 4 Stair Climbing Set # Repetitions (reps) 6 Comments Stair Climbing Comments Step-over ascending, step-to descending. Minimal scissoring with left during descent. PT-OP-H Neuro Start: 09/17/19 18:00 Freq: Status: Active Protocol: Document 08/04/20 13:45 DCW (Rec: 08/04/20 14:13 DCW [id number]) Sensation Evaluation Gross Sensation Gross Sensation Left UE Impaired,Left LE Impaired Sensation Description Paresthesia,Numbness,Pain Location Details Left Leg Light Touch Impaired Sharp/Dull Impaired Deep Pressure Intact/Normal Proprioception (Position) Impaired Kinesthesia (Movement) Impaired Deep Tendon Reflex & Clonus Assessment Deep Tendon Reflex Left Achilles Deep Tendon Reflex 3+ Normal But Brisk Left Patellar Deep Tendon Reflex 3+ Normal But Brisk Ankle Clonus Left Clonus Assessment 3 Beats Muscle Tone Tone Assessment Left Lower Extremity Flexor Tone Description Mild Hypotonicity PT-OP-M Strength Start: 09/17/19 18:00 Freq: Status: Active Protocol: Document 08/04/20 13:45 DCW (Rec: 08/04/20 14:13 DCW [id number]) Hip Strength Hip Manual Muscle Testing Left Flexion (L2) 3+ Fair+ Extension (S1) 3 Fair Abduction 3 Fair Adduction 4 Good External Rotation 3+ Fair+ Internal Rotation 3+ Fair+ Knee Strength Knee Manual Muscle Testing Left Flexion (S2) 4- Good- Extension (L3) 4+ Good+ Ankle/Foot Strength Ankle and Foot Manual Muscle Testing Left Dorsiflexion (L4) 4 Good Plantarflexion (S1) 3+ Fair+ Inversion 3+ Fair+ Eversion (S1) 3 Fair PT-OP-Q Treatments Start: 09/17/19 18:00 Freq: Status: Active Protocol: Document 10/04/20 14:30 DCW (Rec: 10/04/20 15:13 DCW [id number]) Gym Equipment Shuttle Recovery Unilateral Heel Raises Details Left Resistance 25# Reps/Time calf stretch at end Unilateral Squats Details Left Resistance 62# Shuttle Recovery Platform Stable Bilateral Squats Resistance 100# Shuttle Recovery Platform Stable Therapeutic Exercises Other Exercises Hurdles Other Exercise Name Hurdles Comments Fwd Side-stepping Other Exercise Name Side-stepping at rail - CGA Resistance Yellow Equipment Used T-band Comments B UE use Gait Training Gait Activity No AD Description No AD Device Used None Level of Assistance SBA Distance/Duration 870' x1 Comments VCs to promote heel-toe gait, extend left knee during stance phase Neuro Re-Education Treatment Balance Activities Cone transfers Details Bending down ball pick-up from cone, kick cone over, ball toss to target PT-OP-R Modalities Start: 09/17/19 18:00 Freq: Status: Active Protocol: Document 10/04/20 14:30 DCW (Rec: 10/04/20 15:13 DCW [id number]) Electric Stimulation Electric Stimulation Interferential Current (IFC) Body Location L ant ankle Duration (Minutes) 15 Patient Position Sitting Combined With Heat/Cold Cold Pack PT-OP-S Aquatic Treatment Start: 09/17/19 18:00 Freq: Status: Active Protocol: Document 01/30/20 12:30 LJ (Rec: 01/30/20 14:54 LJ [id number]) Aquatics Treatment Pool Entry/Exit Pool Entry/Exit Method Lift Assistance Minimal Assistance Water Walking Slow motion Water Level Chest Level Walking Equipment wet vest, UE float, #2.5 ankle wt Level of Assistance Standby Assistance,Contact Guard Assistance,Moderate Assistance Comments emphasis on LLE extension stance phase [place] January Water Level Chest Level Walking Equipment wet vest, UE float, #2.5 ankle wt Level of Assistance Standby Assistance,Contact Guard Assistance,Moderate Assistance,Verbal Cues Forward with emphasis on reciprocal gait pattern Water Level Chest Level Level of Assistance Standby Assistance,Contact Guard Assistance,Minimal Assistance,Verbal Cues Comments wetvest, sm float on LUE, #3. 75 ankle wt on LLE start stop walking forward and backward Water Level Chest Level Walking Equipment vest Level of Assistance Contact Guard Assistance, Verbal Cues Comments wetvest, sm float on LUE, #3. 75 ankle wt on LLE Sideways Water Level Chest Level Walking Equipment wet vest, UE float, #2.5 ankle wt Level of Assistance Standby Assistance,Contact Guard Assistance,Minimal Assistance,Verbal Cues Lower Extremity Exercises SL aquats Details HH on wall Body Position Standing Water Level Waist Level Equipment wetvest Reps/Duration 2x10 LLE Comments VC to extend knee knee extensions Details seated in lift chair Equipment Ankle Weight- 5.0# Reps/Duration 20 B Comments seated in lift SLS Details bracing LLE Body Position Standing Water Level Chest Level Equipment vest Reps/Duration 1 min marching at wall Water Level Chest Level Reps/Duration 2 min Comments opposite UE/LE tapping wall squats Body Position Standing Water Level Chest Level Reps/Duration 20x Lower Extremity Stretches adductors Comments seated in chair Gastroc Body Position Sitting Reps/Duration 2 x 45 sec B Comments manual assist hip flexors Details at wall Body Position Standing Water Level Waist Level Reps/Duration 2x45 Comments manually assisted HS Details at wall Body Position Sitting Water Level Waist Level Equipment wet vest Reps/Duration 2x45 Comments sitting in lift chair assisted Upper Extremity Exercises breastroke UE's Body Position Standing Water Level Chest Level Reps/Duration 3 min Comments during walking and deep water hor ab/ad Water Level Chest Level Comments during side walking, CGA Balance step ups Details step ups/down using boxes Body Position Standing Water Level Waist Level Equipment 8 boxes Comments mod verbal cues for coordination [place] Activities [place] Activities Bicycle,Cross Country Equipment wet vest, white noodle Duration 7 min Comments Guy and cues for vertical alignmernt. PT-OP-T Assessment and Plan Start: 09/17/19 18:00 Freq: Status: Active Protocol: Document 10/04/20 14:30 DCW (Rec: 10/04/20 15:13 DCW [id number]) Physical Therapy Assessment Impairments Impairments Activity Tolerance,Balance, Coordination,Functional Activities,Functional Mobility ,Gait,Pain,ROM,Sensation, Strength,Tone,Transfers Goals Six Impairment Decreased Static Balance Short Term Goal (STG) Pt to score <9 seconds on TUG STG Duration 09/13/20 - Improving (9.05 seconds) Fpc Goal (LTG) MET - Pt to score 35/56 or better on the Adler Balance NEW GOAL - Pt to score 45/56 or better on the Adler Balance Scale LTG Duration 11/03/20 Five Impairment Pt uses R rail and step-over gait pattern ascending stairs Fpc Goal (LTG) Pt to ascend/descend stairs independently without use of rail LTG Duration 11/13/20 - Improving Four Impairment Pt demonstrates strength impairment throughout left LE Director Of Medical Services Goal (LTG) Pt to display MMT >3+/5 through L LE LTG Duration 11/13/20 - Improving Three Impairment Pt SBA for transfers and bed mobility d/t Left Neglect Director Of Medical Services Goal (LTG) Pt to demonstrate independent transfers and bed mobility with an ability to address left LE and UE 80% of the time LTG Duration Met Two Impairment Pt ambulates 280' CGA /s an AD Short Term Goal (STG) Pt to ambulate 400' SBA independently STG Duration Met Director Of Medical Services Goal (LTG) Pt to ambulate 800' during 6 MWT Independently without SBA LTG Duration 11/03/20 - Improving (1132' SBA) One Impairment Pt does not have an appropriate home exercise program Short Term Goal (STG) Pt to be independent and compliant with an appropriate HEP STG Duration Met Assessment Summary Assessment Pt tolerated treatment very well today. Appeared to be3 much less fatigued than usual, no heavy breathing after gait or balance activities. Physical Therapy Plan Frequency and Duration Frequency of Treatment 2x/Week Duration of Treatment 3 months Plan of Care Start Date 08/04/20 Plan of Care End Date 11/03/20 Therapeutic Interventions Therapeutic Interventions Aquatic Therapy,Balance Training,Coordination Training ,Gait Training,Home Exercise Program,Manual Therapy, Neuromuscular Re-education, Patient/Caregiver Education, Self-Care/Home Management, Therapeutic Activities, Therapeutic Exercises Modalities Cold Pack/Ice Massage,Electric Stimulation,Hot Packs, Ultrasound Next Visit Focus/Plan Next Note Type Treatment Note Next Visit Plan Continue to challenge, continue strengthening, balance and gait training with NMR. Continue deep water for cardio training and core stabilization. Focus on bilateral knee extension in shallow water gait training
--- NOTE | 2020-10-06 15:18 | PT.OTN ---
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) Physical Therapy Treatment Note PT-OP-A Visit Information Start: 09/17/19 18:00 Freq: Status: Active Protocol: Document 10/06/20 14:30 DCW (Rec: 10/06/20 15:17 DCW [id number]) Out-Patient Physical Therapy Visit Information Visit Information Visit Type Treatment Note Visit Start Time 14:30 Visit Stop Time 15:25 Total Visit Minutes 55 Visit Number 78 Number of ACCOUNTS MANAGER Visits 0 Evaluation Information Evaluation Date 09/17/19 PT-OP-B Current Condition Start: 09/17/19 18:00 Freq: Status: Active Protocol: Document 09/17/19 12:00 DCW (Rec: 09/18/19 10:29 DCW [id number]) Current Condition History of Current Condition Onset Date 04/14/19 Current Complaints Hemiparesis secondary to CVA History of Current Condition Pt is a 69 year old male presenting to skilled outpatient physical therapy with left-side neglect, hemiparesis, loss of independence, and difficulty walking following an intraparenchymal hemorrhage on 04/14/19. Pt was transferred from [facility] to [facility], where a craniotomy was performed on 04/16/19. Pt completed 7 weeks of rehab/ recovery at [facility], and then underwent a second surgery on 06/26/19 to replace the skull fragment. Pt was then at an acute rehab facility 06/30-07/18/19, and since then has been receiving home health physical therapy. Pt presents today with limited left-sided function, left visual and physical neglect, difficulty with transfers, decreased activity tolerance, decreased gait, and many other secondary effects following his CVA. Pt has been working on ambulation with a vale walker with home health, and his states he has walked around 100' a few times, but always with a therapist, as she does not feel comfortable walking with him yet. Pt exclusively gets around at time of evaluation in a manual wheelchair. Pt's transfers have been going fairly well, with his caregivers performing CGA, however pt will occasionally need assistance with placement of his left UE and LE due to neglect. Pt's biggest complaint at the moment is leg pain, his reports they have tried PT, Massage, CBD il, Tylenol, Oxycodine, and Gabapentin, all with minimal benefit. Prior to CVA, pt was fully independent in all activities. Pt and have garegivers 8 hrs a day for assistance. Prior Treatments and Tests Craniotomy 04/16/19, Acute rehab, Skull fragment replacement 06/26/19, home health PT Prior Functional Status Baseline Function- ADL's Independent Baseline Function- Mobility Independent PT-OP-C Subjective Start: 09/17/19 18:00 Freq: Status: Active Protocol: Document 10/06/20 14:30 DCW (Rec: 10/06/20 15:17 DCW [id number]) OP-PT Subjective Patient Comments Patient Comments Pt reports he has been having more pain in his feet, especially when getting up in the morning. Admits that prior to his CVA, he was diagnosed with arthritis, and he was given orthotics, which helped his pain a lot, but he has stopped using them. PT-OP-D Balance Start: 08/04/20 14:14 Freq: Status: Active Protocol: Document 08/04/20 13:45 DCW (Rec: 08/04/20 14:28 DCW [id number]) Balance Tests Adler Balance Test Adler Balance Test Score 39/56 Adler Impairment Rating 20 to 39% Impaired (Score 34- 44) Adler Balance Assessment Evaluation Sitting to Standing Ability Independent w/out Hands Unsupported Stance Supervision- 2 minutes Sitting Unsupported, Feet on Floor Safely- 2 minutes Standing to Sitting Ability Assist, Control w/Hands Transfer Ability Safely, Hand Use Unsupported Stance- Eyes Closed Supervision, 10 seconds Unsupported Stance- Eyes Open Supervision to maintain Reaching Forward Standing Safely, 5 inches Pick- Up Object From Floor Supervision Look Behind Shoulder - Standing Shifts Weight Unilateral Turning 360 Degrees Turns slowly, but safely Unsupported Stance, Alternating Feet on 4 Steps w/Supervision Stair Unsupported Tandem Stance Small Step- 30 seconds Unilateral Leg Stance Lifts Leg/Unable to Hold Total Score Adler Total Score (out of 56 points) 39 Adler Impairment Rating 20 to 39% Impaired (Score 34- 44) PT-OP-E Functional Tests Start: 05/04/20 15:15 Freq: Status: Active Protocol: Document 08/04/20 13:45 DCW (Rec: 08/04/20 14:13 DCW [id number]) Functional Tests 6 Minute Walk Test Distance 1132' Device Used none Comments 3.14 ft/sec Timed Up and Go (TUG) Score 9.05 seconds Comments 3-trial average (10.03, 8.96, 8.16) TUG Impairment Rating 0% Impaired (Score 10) PT-OP-G Mobility & Gait Start: 09/17/19 18:00 Freq: Status: Active Protocol: Document 08/04/20 13:45 DCW (Rec: 08/04/20 14:13 DCW [id number]) OP Mobility Evaluation Bed Mobility Rolling Independent Supine to and from Sit Independent Transfers Sit to Stand SBA Bed to Chair Transfers SBA OP Gait Assessment Gait Gait Assistance Required: Standby Assistance Distance (Feet) 1,132 Assistive Devices Assistive Device None Gait Deviations General Gait Pattern Antalgic,Ataxic,Decreased Feet Clearance,Flexed Trunk, Lateral Trunk Lean Factors Limiting Gait Function Factors Limiting Gait Function Abnormal Tonal Influences, Decreased Activity Tolerance, Decreased Sensation,Decreased Strength,Incoordination,Poor Balance,Poor Safety Awareness Stair Climbing Evaluation Evaluation Level of Assist On Stairs Contact Guard Assistance Devices Stair Climbing Assistive Devices Right Railing Technique/Endurance Stair Climbing Direction Ascend and Descend Stair Climbing Technique Step Over Step,Step to Step Number of Steps Climbed 4 Stair Climbing Set # Repetitions (reps) 6 Comments Stair Climbing Comments Step-over ascending, step-to descending. Minimal scissoring with left during descent. PT-OP-H Neuro Start: 09/17/19 18:00 Freq: Status: Active Protocol: Document 08/04/20 13:45 DCW (Rec: 08/04/20 14:13 DCW [id number]) Sensation Evaluation Gross Sensation Gross Sensation Left UE Impaired,Left LE Impaired Sensation Description Paresthesia,Numbness,Pain Location Details Left Leg Light Touch Impaired Sharp/Dull Impaired Deep Pressure Intact/Normal Proprioception (Position) Impaired Kinesthesia (Movement) Impaired Deep Tendon Reflex & Clonus Assessment Deep Tendon Reflex Left Achilles Deep Tendon Reflex 3+ Normal But Brisk Left Patellar Deep Tendon Reflex 3+ Normal But Brisk Ankle Clonus Left Clonus Assessment 3 Beats Muscle Tone Tone Assessment Left Lower Extremity Flexor Tone Description Mild Hypotonicity PT-OP-M Strength Start: 09/17/19 18:00 Freq: Status: Active Protocol: Document 08/04/20 13:45 DCW (Rec: 08/04/20 14:13 DCW [id number]) Hip Strength Hip Manual Muscle Testing Left Flexion (L2) 3+ Fair+ Extension (S1) 3 Fair Abduction 3 Fair Adduction 4 Good External Rotation 3+ Fair+ Internal Rotation 3+ Fair+ Knee Strength Knee Manual Muscle Testing Left Flexion (S2) 4- Good- Extension (L3) 4+ Good+ Ankle/Foot Strength Ankle and Foot Manual Muscle Testing Left Dorsiflexion (L4) 4 Good Plantarflexion (S1) 3+ Fair+ Inversion 3+ Fair+ Eversion (S1) 3 Fair PT-OP-Q Treatments Start: 09/17/19 18:00 Freq: Status: Active Protocol: Document 10/06/20 14:30 DCW (Rec: 10/06/20 15:17 DCW [id number]) Gym Equipment Shuttle Recovery Unilateral Heel Raises Details Left Resistance 25# Reps/Time calf stretch at end Unilateral Squats Details Left Resistance 62# Shuttle Recovery Platform Stable Bilateral Squats Resistance 100# Shuttle Recovery Platform Stable Shuttle Balance Red Details Wide SRIDEVI, Staggered Comments Min Ax1 Gait Training Gait Activity No AD Description No AD Device Used None Level of Assistance SBA Distance/Duration 910' x1 Comments VCs to promote heel-toe gait, extend left knee during stance phase Neuro Re-Education Treatment Balance Activities Cone transfers Details Bending down ball pick-up from cone, kick cone over, ball toss to target PT-OP-R Modalities Start: 09/17/19 18:00 Freq: Status: Active Protocol: Document 10/06/20 14:30 DCW (Rec: 10/06/20 15:17 DCW [id number]) Electric Stimulation Electric Stimulation Interferential Current (IFC) Body Location L ant ankle Duration (Minutes) 15 Patient Position Sitting Combined With Heat/Cold Cold Pack PT-OP-S Aquatic Treatment Start: 09/17/19 18:00 Freq: Status: Active Protocol: Document 01/30/20 12:30 LJ (Rec: 01/30/20 14:54 LJ [id number]) Aquatics Treatment Pool Entry/Exit Pool Entry/Exit Method Lift Assistance Minimal Assistance Water Walking Slow motion Water Level Chest Level Walking Equipment wet vest, UE float, #2.5 ankle wt Level of Assistance Standby Assistance,Contact Guard Assistance,Moderate Assistance Comments emphasis on LLE extension stance phase [place] January Water Level Chest Level Walking Equipment wet vest, UE float, #2.5 ankle wt Level of Assistance Standby Assistance,Contact Guard Assistance,Moderate Assistance,Verbal Cues Forward with emphasis on reciprocal gait pattern Water Level Chest Level Level of Assistance Standby Assistance,Contact Guard Assistance,Minimal Assistance,Verbal Cues Comments wetvest, sm float on LUE, #3. 75 ankle wt on LLE start stop walking forward and backward Water Level Chest Level Walking Equipment vest Level of Assistance Contact Guard Assistance, Verbal Cues Comments wetvest, sm float on LUE, #3. 75 ankle wt on LLE Sideways Water Level Chest Level Walking Equipment wet vest, UE float, #2.5 ankle wt Level of Assistance Standby Assistance,Contact Guard Assistance,Minimal Assistance,Verbal Cues Lower Extremity Exercises SL aquats Details HH on wall Body Position Standing Water Level Waist Level Equipment wetvest Reps/Duration 2x10 LLE Comments VC to extend knee knee extensions Details seated in lift chair Equipment Ankle Weight- 5.0# Reps/Duration 20 B Comments seated in lift SLS Details bracing LLE Body Position Standing Water Level Chest Level Equipment vest Reps/Duration 1 min marching at wall Water Level Chest Level Reps/Duration 2 min Comments opposite UE/LE tapping wall squats Body Position Standing Water Level Chest Level Reps/Duration 20x Lower Extremity Stretches adductors Comments seated in chair Gastroc Body Position Sitting Reps/Duration 2 x 45 sec B Comments manual assist hip flexors Details at wall Body Position Standing Water Level Waist Level Reps/Duration 2x45 Comments manually assisted HS Details at wall Body Position Sitting Water Level Waist Level Equipment wet vest Reps/Duration 2x45 Comments sitting in lift chair assisted Upper Extremity Exercises breastroke UE's Body Position Standing Water Level Chest Level Reps/Duration 3 min Comments during walking and deep water hor ab/ad Water Level Chest Level Comments during side walking, CGA Balance step ups Details step ups/down using boxes Body Position Standing Water Level Waist Level Equipment 8 boxes Comments mod verbal cues for coordination [place] Activities [place] Activities Bicycle,Cross Country Equipment wet vest, white noodle Duration 7 min Comments Guy and cues for vertical alignmernt. PT-OP-T Assessment and Plan Start: 09/17/19 18:00 Freq: Status: Active Protocol: Document 10/06/20 14:30 DCW (Rec: 10/06/20 15:17 DCW [id number]) Physical Therapy Assessment Impairments Impairments Activity Tolerance,Balance, Coordination,Functional Activities,Functional Mobility ,Gait,Pain,ROM,Sensation, Strength,Tone,Transfers Goals Six Impairment Decreased Static Balance Short Term Goal (STG) Pt to score <9 seconds on TUG STG Duration 09/13/20 - Improving (9.05 seconds) [place] Operator Goal (LTG) MET - Pt to score 35/56 or better on the Adler Balance NEW GOAL - Pt to score 45/56 or better on the Adler Balance Scale LTG Duration 11/03/20 Five Impairment Pt uses R rail and step-over gait pattern ascending stairs Halfway Goal (LTG) Pt to ascend/descend stairs independently without use of rail LTG Duration 11/13/20 - Improving Four Impairment Pt demonstrates strength impairment throughout left LE [place] Operator Goal (LTG) Pt to display MMT >3+/5 through L LE LTG Duration 11/13/20 - Improving Three Impairment Pt SBA for transfers and bed mobility d/t Left Neglect Halfway Goal (LTG) Pt to demonstrate independent transfers and bed mobility with an ability to address left LE and UE 80% of the time LTG Duration Met Two Impairment Pt ambulates 280' CGA /s an AD Short Term Goal (STG) Pt to ambulate 400' SBA independently STG Duration Met [place] Operator Goal (LTG) Pt to ambulate 800' during 6 MWT Independently without SBA LTG Duration 11/03/20 - Improving (1132' SBA) One Impairment Pt does not have an appropriate home exercise program Short Term Goal (STG) Pt to be independent and compliant with an appropriate HEP STG Duration Met Assessment Summary Assessment Pt had increased fatigue today , but was working very hard to make it through session. Pt did well with ambulation and balance. Physical Therapy Plan Frequency and Duration Frequency of Treatment 2x/Week Duration of Treatment 3 months Plan of Care Start Date 08/04/20 Plan of Care End Date 11/03/20 Therapeutic Interventions Therapeutic Interventions Aquatic Therapy,Balance Training,Coordination Training ,Gait Training,Home Exercise Program,Manual Therapy, Neuromuscular Re-education, Patient/Caregiver Education, Self-Care/Home Management, Therapeutic Activities, Therapeutic Exercises Modalities Cold Pack/Ice Massage,Electric Stimulation,Hot Packs, Ultrasound Next Visit Focus/Plan Next Note Type Treatment Note Next Visit Plan Continue to challenge, continue strengthening, balance and gait training with NMR. Continue deep water for cardio training and core stabilization. Focus on bilateral knee extension in shallow water gait training
--- NOTE | 2020-10-11 15:12 | PT.OTN ---
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) Physical Therapy Treatment Note PT-OP-A Visit Information Start: 09/17/19 18:00 Freq: Status: Active Protocol: Document 10/11/20 14:30 DCW (Rec: 10/11/20 15:12 DCW [id number]) Out-Patient Physical Therapy Visit Information Visit Information Visit Type Treatment Note Visit Start Time 14:30 Visit Stop Time 15:25 Total Visit Minutes 55 Visit Number 79 Number of PLASTIC SHEETING CUTTER Visits 0 Evaluation Information Evaluation Date 09/17/19 PT-OP-B Current Condition Start: 09/17/19 18:00 Freq: Status: Active Protocol: Document 09/17/19 12:00 DCW (Rec: 09/18/19 10:29 DCW [id number]) Current Condition History of Current Condition Onset Date 04/14/19 Current Complaints Hemiparesis secondary to CVA History of Current Condition Pt is a 69 year old male presenting to skilled outpatient physical therapy with left-side neglect, hemiparesis, loss of independence, and difficulty walking following an intraparenchymal hemorrhage on 04/14/19. Pt was transferred from [facility] to [facility], where a craniotomy was performed on 04/16/19. Pt completed 7 weeks of rehab/ recovery at [facility], and then underwent a second surgery on 06/26/19 to replace the skull fragment. Pt was then at an acute rehab facility 06/30-07/18/19, and since then has been receiving home health physical therapy. Pt presents today with limited left-sided function, left visual and physical neglect, difficulty with transfers, decreased activity tolerance, decreased gait, and many other secondary effects following his CVA. Pt has been working on ambulation with a vale walker with home health, and his states he has walked around 100' a few times, but always with a therapist, as she does not feel comfortable walking with him yet. Pt exclusively gets around at time of evaluation in a manual wheelchair. Pt's transfers have been going fairly well, with his caregivers performing CGA, however pt will occasionally need assistance with placement of his left UE and LE due to neglect. Pt's biggest complaint at the moment is leg pain, his reports they have tried PT, Massage, CBD il, Tylenol, Oxycodine, and Gabapentin, all with minimal benefit. Prior to CVA, pt was fully independent in all activities. Pt and have garegivers 8 hrs a day for assistance. Prior Treatments and Tests Craniotomy 04/16/19, Acute rehab, Skull fragment replacement 06/26/19, home health PT Prior Functional Status Baseline Function- ADL's Independent Baseline Function- Mobility Independent PT-OP-C Subjective Start: 09/17/19 18:00 Freq: Status: Active Protocol: Document 10/11/20 14:30 DCW (Rec: 10/11/20 15:12 DCW [id number]) OP-PT Subjective Patient Comments Patient Comments Pt notes he has been experiencing increased cramping in his right calf recently. Other than that, he has been feeling pretty good. PT-OP-D Balance Start: 08/04/20 14:14 Freq: Status: Active Protocol: Document 08/04/20 13:45 DCW (Rec: 08/04/20 14:28 DCW [id number]) Balance Tests Adler Balance Test Adler Balance Test Score 39/56 Adler Impairment Rating 20 to 39% Impaired (Score 34- 44) Adler Balance Assessment Evaluation Sitting to Standing Ability Independent w/out Hands Unsupported Stance Supervision- 2 minutes Sitting Unsupported, Feet on Floor Safely- 2 minutes Standing to Sitting Ability Assist, Control w/Hands Transfer Ability Safely, Hand Use Unsupported Stance- Eyes Closed Supervision, 10 seconds Unsupported Stance- Eyes Open Supervision to maintain Reaching Forward Standing Safely, 5 inches Pick- Up Object From Floor Supervision Look Behind Shoulder - Standing Shifts Weight Unilateral Turning 360 Degrees Turns slowly, but safely Unsupported Stance, Alternating Feet on 4 Steps w/Supervision Stair Unsupported Tandem Stance Small Step- 30 seconds Unilateral Leg Stance Lifts Leg/Unable to Hold Total Score Adler Total Score (out of 56 points) 39 Adler Impairment Rating 20 to 39% Impaired (Score 34- 44) PT-OP-E Functional Tests Start: 05/04/20 15:15 Freq: Status: Active Protocol: Document 08/04/20 13:45 DCW (Rec: 08/04/20 14:13 DCW [id number]) Functional Tests 6 Minute Walk Test Distance 1132' Device Used none Comments 3.14 ft/sec Timed Up and Go (TUG) Score 9.05 seconds Comments 3-trial average (10.03, 8.96, 8.16) TUG Impairment Rating 0% Impaired (Score 10) PT-OP-G Mobility & Gait Start: 09/17/19 18:00 Freq: Status: Active Protocol: Document 08/04/20 13:45 DCW (Rec: 08/04/20 14:13 DCW [id number]) OP Mobility Evaluation Bed Mobility Rolling Independent Supine to and from Sit Independent Transfers Sit to Stand SBA Bed to Chair Transfers SBA OP Gait Assessment Gait Gait Assistance Required: Standby Assistance Distance (Feet) 1,132 Assistive Devices Assistive Device None Gait Deviations General Gait Pattern Antalgic,Ataxic,Decreased Feet Clearance,Flexed Trunk, Lateral Trunk Lean Factors Limiting Gait Function Factors Limiting Gait Function Abnormal Tonal Influences, Decreased Activity Tolerance, Decreased Sensation,Decreased Strength,Incoordination,Poor Balance,Poor Safety Awareness Stair Climbing Evaluation Evaluation Level of Assist On Stairs Contact Guard Assistance Devices Stair Climbing Assistive Devices Right Railing Technique/Endurance Stair Climbing Direction Ascend and Descend Stair Climbing Technique Step Over Step,Step to Step Number of Steps Climbed 4 Stair Climbing Set # Repetitions (reps) 6 Comments Stair Climbing Comments Step-over ascending, step-to descending. Minimal scissoring with left during descent. PT-OP-H Neuro Start: 09/17/19 18:00 Freq: Status: Active Protocol: Document 08/04/20 13:45 DCW (Rec: 08/04/20 14:13 DCW [id number]) Sensation Evaluation Gross Sensation Gross Sensation Left UE Impaired,Left LE Impaired Sensation Description Paresthesia,Numbness,Pain Location Details Left Leg Light Touch Impaired Sharp/Dull Impaired Deep Pressure Intact/Normal Proprioception (Position) Impaired Kinesthesia (Movement) Impaired Deep Tendon Reflex & Clonus Assessment Deep Tendon Reflex Left Achilles Deep Tendon Reflex 3+ Normal But Brisk Left Patellar Deep Tendon Reflex 3+ Normal But Brisk Ankle Clonus Left Clonus Assessment 3 Beats Muscle Tone Tone Assessment Left Lower Extremity Flexor Tone Description Mild Hypotonicity PT-OP-M Strength Start: 09/17/19 18:00 Freq: Status: Active Protocol: Document 08/04/20 13:45 DCW (Rec: 08/04/20 14:13 DCW [id number]) Hip Strength Hip Manual Muscle Testing Left Flexion (L2) 3+ Fair+ Extension (S1) 3 Fair Abduction 3 Fair Adduction 4 Good External Rotation 3+ Fair+ Internal Rotation 3+ Fair+ Knee Strength Knee Manual Muscle Testing Left Flexion (S2) 4- Good- Extension (L3) 4+ Good+ Ankle/Foot Strength Ankle and Foot Manual Muscle Testing Left Dorsiflexion (L4) 4 Good Plantarflexion (S1) 3+ Fair+ Inversion 3+ Fair+ Eversion (S1) 3 Fair PT-OP-Q Treatments Start: 09/17/19 18:00 Freq: Status: Active Protocol: Document 10/11/20 14:30 DCW (Rec: 10/11/20 15:12 DCW [id number]) Therapeutic Exercises Standing Exercises SLS Standing Exercise Name SLS Equipment Used rail Comments CGA Gait Training Gait Activity No AD Description No AD Device Used None Level of Assistance SBA Distance/Duration 900' x1 Comments VCs to promote heel-toe gait, extend left knee during stance phase Neuro Re-Education Treatment Balance Activities Ball Kick Details Ball kick to goal Comments Weight shift, SLS, Coordination Balance Board Details Lateral weight shift Hurdles Details Hurdles Comments Min Ax1 Cone transfers Details Bending down ball pick-up from cone, kick cone over, ball toss to target PT-OP-R Modalities Start: 09/17/19 18:00 Freq: Status: Active Protocol: Document 10/11/20 14:30 DCW (Rec: 10/11/20 15:12 DCW [id number]) Electric Stimulation Electric Stimulation Interferential Current (IFC) Body Location L ant ankle Duration (Minutes) 15 Patient Position Sitting Combined With Heat/Cold Cold Pack PT-OP-S Aquatic Treatment Start: 09/17/19 18:00 Freq: Status: Active Protocol: Document 01/30/20 12:30 LJ (Rec: 01/30/20 14:54 LJ [id number]) Aquatics Treatment Pool Entry/Exit Pool Entry/Exit Method Lift Assistance Minimal Assistance Water Walking Slow motion Water Level Chest Level Walking Equipment wet vest, UE float, #2.5 ankle wt Level of Assistance Standby Assistance,Contact Guard Assistance,Moderate Assistance Comments emphasis on LLE extension stance phase [place] March Water Level Chest Level Walking Equipment wet vest, UE float, #2.5 ankle wt Level of Assistance Standby Assistance,Contact Guard Assistance,Moderate Assistance,Verbal Cues Forward with emphasis on reciprocal gait pattern Water Level Chest Level Level of Assistance Standby Assistance,Contact Guard Assistance,Minimal Assistance,Verbal Cues Comments wetvest, sm float on LUE, #3. 75 ankle wt on LLE start stop walking forward and backward Water Level Chest Level Walking Equipment vest Level of Assistance Contact Guard Assistance, Verbal Cues Comments wetvest, sm float on LUE, #3. 75 ankle wt on LLE Sideways Water Level Chest Level Walking Equipment wet vest, UE float, #2.5 ankle wt Level of Assistance Standby Assistance,Contact Guard Assistance,Minimal Assistance,Verbal Cues Lower Extremity Exercises SL aquats Details HH on wall Body Position Standing Water Level Waist Level Equipment wetvest Reps/Duration 2x10 LLE Comments VC to extend knee knee extensions Details seated in lift chair Equipment Ankle Weight- 5.0# Reps/Duration 20 B Comments seated in lift SLS Details bracing LLE Body Position Standing Water Level Chest Level Equipment vest Reps/Duration 1 min marching at wall Water Level Chest Level Reps/Duration 2 min Comments opposite UE/LE tapping wall squats Body Position Standing Water Level Chest Level Reps/Duration 20x Lower Extremity Stretches adductors Comments seated in chair Gastroc Body Position Sitting Reps/Duration 2 x 45 sec B Comments manual assist hip flexors Details at wall Body Position Standing Water Level Waist Level Reps/Duration 2x45 Comments manually assisted HS Details at wall Body Position Sitting Water Level Waist Level Equipment wet vest Reps/Duration 2x45 Comments sitting in lift chair assisted Upper Extremity Exercises breastroke UE's Body Position Standing Water Level Chest Level Reps/Duration 3 min Comments during walking and deep water hor ab/ad Water Level Chest Level Comments during side walking, CGA Balance step ups Details step ups/down using boxes Body Position Standing Water Level Waist Level Equipment 8 boxes Comments mod verbal cues for coordination [place] Activities [place] Activities Bicycle,Cross Country Equipment wet vest, white noodle Duration 7 min Comments Guy and cues for vertical alignmernt. PT-OP-T Assessment and Plan Start: 09/17/19 18:00 Freq: Status: Active Protocol: Document 10/11/20 14:30 DCW (Rec: 10/11/20 15:12 DCW [id number]) Physical Therapy Assessment Impairments Impairments Activity Tolerance,Balance, Coordination,Functional Activities,Functional Mobility ,Gait,Pain,ROM,Sensation, Strength,Tone,Transfers Goals Six Impairment Decreased Static Balance Short Term Goal (STG) Pt to score <9 seconds on TUG STG Duration 09/13/20 - Improving (9.05 seconds) Gas Appliance Repairer Goal (LTG) MET - Pt to score 35/56 or better on the Adler Balance NEW GOAL - Pt to score 45/56 or better on the Adler Balance Scale LTG Duration 11/03/20 Five Impairment Pt uses R rail and step-over gait pattern ascending stairs Longterm Goal (LTG) Pt to ascend/descend stairs independently without use of rail LTG Duration 11/13/20 - Improving Four Impairment Pt demonstrates strength impairment throughout left LE Gas Appliance Repairer Goal (LTG) Pt to display MMT >3+/5 through L LE LTG Duration 11/13/20 - Improving Three Impairment Pt SBA for transfers and bed mobility d/t Left Neglect Gas Appliance Repairer Goal (LTG) Pt to demonstrate independent transfers and bed mobility with an ability to address left LE and UE 80% of the time LTG Duration Met Two Impairment Pt ambulates 280' CGA /s an AD Short Term Goal (STG) Pt to ambulate 400' SBA independently STG Duration Met Longterm Goal (LTG) Pt to ambulate 800' during 6 MWT Independently without SBA LTG Duration 11/03/20 - Improving (1132' SBA) One Impairment Pt does not have an appropriate home exercise program Short Term Goal (STG) Pt to be independent and compliant with an appropriate HEP STG Duration Met Assessment Summary Assessment Much smoother gait pattern today. Much more natural left arm swing, and demonstrated a significant improvement in heel strike through push off of left foot. Physical Therapy Plan Frequency and Duration Frequency of Treatment 2x/Week Duration of Treatment 3 months Plan of Care Start Date 08/04/20 Plan of Care End Date 11/03/20 Therapeutic Interventions Therapeutic Interventions Aquatic Therapy,Balance Training,Coordination Training ,Gait Training,Home Exercise Program,Manual Therapy, Neuromuscular Re-education, Patient/Caregiver Education, Self-Care/Home Management, Therapeutic Activities, Therapeutic Exercises Modalities Cold Pack/Ice Massage,Electric Stimulation,Hot Packs, Ultrasound Next Visit Focus/Plan Next Note Type Treatment Note Next Visit Plan Continue to challenge, continue strengthening, balance and gait training with NMR. Continue deep water for cardio training and core stabilization. Focus on bilateral knee extension in shallow water gait training
--- NOTE | 2020-10-13 15:20 | PT.OTN ---
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) Physical Therapy Treatment Note PT-OP-A Visit Information Start: 09/17/19 18:00 Freq: Status: Active Protocol: Document 10/13/20 14:30 DCW (Rec: 10/13/20 15:20 DCW [id number]) Out-Patient Physical Therapy Visit Information Visit Information Visit Type Treatment Note Visit Start Time 14:30 Visit Stop Time 15:25 Total Visit Minutes 55 Visit Number 80 Number of DIRECTOR CHEMISTRY Visits 0 Evaluation Information Evaluation Date 09/17/19 PT-OP-B Current Condition Start: 09/17/19 18:00 Freq: Status: Active Protocol: Document 09/17/19 12:00 DCW (Rec: 09/18/19 10:29 DCW [id number]) Current Condition History of Current Condition Onset Date 04/14/19 Current Complaints Hemiparesis secondary to CVA History of Current Condition Pt is a 69 year old male presenting to skilled outpatient physical therapy with left-side neglect, hemiparesis, loss of independence, and difficulty walking following an intraparenchymal hemorrhage on 04/14/19. Pt was transferred from [facility] to [facility], where a craniotomy was performed on 04/16/19. Pt completed 7 weeks of rehab/ recovery at [facility], and then underwent a second surgery on 06/26/19 to replace the skull fragment. Pt was then at an acute rehab facility 06/30-07/18/19, and since then has been receiving home health physical therapy. Pt presents today with limited left-sided function, left visual and physical neglect, difficulty with transfers, decreased activity tolerance, decreased gait, and many other secondary effects following his CVA. Pt has been working on ambulation with a vale walker with home health, and his states he has walked around 100' a few times, but always with a therapist, as she does not feel comfortable walking with him yet. Pt exclusively gets around at time of evaluation in a manual wheelchair. Pt's transfers have been going fairly well, with his caregivers performing CGA, however pt will occasionally need assistance with placement of his left UE and LE due to neglect. Pt's biggest complaint at the moment is leg pain, his reports they have tried PT, Massage, CBD il, Tylenol, Oxycodine, and Gabapentin, all with minimal benefit. Prior to CVA, pt was fully independent in all activities. Pt and have garegivers 8 hrs a day for assistance. Prior Treatments and Tests Craniotomy 04/16/19, Acute rehab, Skull fragment replacement 06/26/19, home health PT Prior Functional Status Baseline Function- ADL's Independent Baseline Function- Mobility Independent PT-OP-C Subjective Start: 09/17/19 18:00 Freq: Status: Active Protocol: Document 10/13/20 14:30 DCW (Rec: 10/13/20 15:20 DCW [id number]) OP-PT Subjective Patient Comments Patient Comments Pt reports he has been using Magnesium cream on his leg, which has helped with the cramping. PT-OP-D Balance Start: 08/04/20 14:14 Freq: Status: Active Protocol: Document 08/04/20 13:45 DCW (Rec: 08/04/20 14:28 DCW [id number]) Balance Tests Adler Balance Test Adler Balance Test Score 39/56 Adler Impairment Rating 20 to 39% Impaired (Score 34- 44) Adler Balance Assessment Evaluation Sitting to Standing Ability Independent w/out Hands Unsupported Stance Supervision- 2 minutes Sitting Unsupported, Feet on Floor Safely- 2 minutes Standing to Sitting Ability Assist, Control w/Hands Transfer Ability Safely, Hand Use Unsupported Stance- Eyes Closed Supervision, 10 seconds Unsupported Stance- Eyes Open Supervision to maintain Reaching Forward Standing Safely, 5 inches Pick- Up Object From Floor Supervision Look Behind Shoulder - Standing Shifts Weight Unilateral Turning 360 Degrees Turns slowly, but safely Unsupported Stance, Alternating Feet on 4 Steps w/Supervision Stair Unsupported Tandem Stance Small Step- 30 seconds Unilateral Leg Stance Lifts Leg/Unable to Hold Total Score Adler Total Score (out of 56 points) 39 Adler Impairment Rating 20 to 39% Impaired (Score 34- 44) PT-OP-E Functional Tests Start: 05/04/20 15:15 Freq: Status: Active Protocol: Document 08/04/20 13:45 DCW (Rec: 08/04/20 14:13 DCW [id number]) Functional Tests 6 Minute Walk Test Distance 1132' Device Used none Comments 3.14 ft/sec Timed Up and Go (TUG) Score 9.05 seconds Comments 3-trial average (10.03, 8.96, 8.16) TUG Impairment Rating 0% Impaired (Score 10) PT-OP-G Mobility & Gait Start: 09/17/19 18:00 Freq: Status: Active Protocol: Document 08/04/20 13:45 DCW (Rec: 08/04/20 14:13 DCW [id number]) OP Mobility Evaluation Bed Mobility Rolling Independent Supine to and from Sit Independent Transfers Sit to Stand SBA Bed to Chair Transfers SBA OP Gait Assessment Gait Gait Assistance Required: Standby Assistance Distance (Feet) 1,132 Assistive Devices Assistive Device None Gait Deviations General Gait Pattern Antalgic,Ataxic,Decreased Feet Clearance,Flexed Trunk, Lateral Trunk Lean Factors Limiting Gait Function Factors Limiting Gait Function Abnormal Tonal Influences, Decreased Activity Tolerance, Decreased Sensation,Decreased Strength,Incoordination,Poor Balance,Poor Safety Awareness Stair Climbing Evaluation Evaluation Level of Assist On Stairs Contact Guard Assistance Devices Stair Climbing Assistive Devices Right Railing Technique/Endurance Stair Climbing Direction Ascend and Descend Stair Climbing Technique Step Over Step,Step to Step Number of Steps Climbed 4 Stair Climbing Set # Repetitions (reps) 6 Comments Stair Climbing Comments Step-over ascending, step-to descending. Minimal scissoring with left during descent. PT-OP-H Neuro Start: 09/17/19 18:00 Freq: Status: Active Protocol: Document 08/04/20 13:45 DCW (Rec: 08/04/20 14:13 DCW [id number]) Sensation Evaluation Gross Sensation Gross Sensation Left UE Impaired,Left LE Impaired Sensation Description Paresthesia,Numbness,Pain Location Details Left Leg Light Touch Impaired Sharp/Dull Impaired Deep Pressure Intact/Normal Proprioception (Position) Impaired Kinesthesia (Movement) Impaired Deep Tendon Reflex & Clonus Assessment Deep Tendon Reflex Left Achilles Deep Tendon Reflex 3+ Normal But Brisk Left Patellar Deep Tendon Reflex 3+ Normal But Brisk Ankle Clonus Left Clonus Assessment 3 Beats Muscle Tone Tone Assessment Left Lower Extremity Flexor Tone Description Mild Hypotonicity PT-OP-M Strength Start: 09/17/19 18:00 Freq: Status: Active Protocol: Document 08/04/20 13:45 DCW (Rec: 08/04/20 14:13 DCW [id number]) Hip Strength Hip Manual Muscle Testing Left Flexion (L2) 3+ Fair+ Extension (S1) 3 Fair Abduction 3 Fair Adduction 4 Good External Rotation 3+ Fair+ Internal Rotation 3+ Fair+ Knee Strength Knee Manual Muscle Testing Left Flexion (S2) 4- Good- Extension (L3) 4+ Good+ Ankle/Foot Strength Ankle and Foot Manual Muscle Testing Left Dorsiflexion (L4) 4 Good Plantarflexion (S1) 3+ Fair+ Inversion 3+ Fair+ Eversion (S1) 3 Fair PT-OP-Q Treatments Start: 09/17/19 18:00 Freq: Status: Active Protocol: Document 10/13/20 14:30 DCW (Rec: 10/13/20 15:20 DCW [id number]) Gym Equipment Shuttle Recovery Unilateral Heel Raises Details Left Resistance 25# Reps/Time calf stretch at end Unilateral Squats Details Left Resistance 62# Shuttle Recovery Platform Stable Bilateral Squats Resistance 100# Shuttle Recovery Platform Stable Shuttle Balance Red Details Wide SRIDEVI, Staggered Comments Min Ax1 Gait Training Gait Activity No AD Description No AD Device Used None Level of Assistance SBA Distance/Duration 950' x1 Comments VCs to promote heel-toe gait, extend left knee during stance phase Neuro Re-Education Treatment Balance Activities Foam Details Staggered on foam Surface Blue foam Cone transfers Details Bending down ball pick-up from cone, kick cone over, ball toss to target PT-OP-R Modalities Start: 09/17/19 18:00 Freq: Status: Active Protocol: Document 10/13/20 14:30 DCW (Rec: 10/13/20 15:20 DCW [id number]) Electric Stimulation Electric Stimulation Interferential Current (IFC) Body Location L ant ankle Duration (Minutes) 15 Patient Position Sitting Combined With Heat/Cold Cold Pack PT-OP-S Aquatic Treatment Start: 09/17/19 18:00 Freq: Status: Active Protocol: Document 01/30/20 12:30 LJ (Rec: 01/30/20 14:54 LJ [id number]) Aquatics Treatment Pool Entry/Exit Pool Entry/Exit Method Lift Assistance Minimal Assistance Water Walking Slow motion Water Level Chest Level Walking Equipment wet vest, UE float, #2.5 ankle wt Level of Assistance Standby Assistance,Contact Guard Assistance,Moderate Assistance Comments emphasis on LLE extension stance phase [place] March Water Level Chest Level Walking Equipment wet vest, UE float, #2.5 ankle wt Level of Assistance Standby Assistance,Contact Guard Assistance,Moderate Assistance,Verbal Cues Forward with emphasis on reciprocal gait pattern Water Level Chest Level Level of Assistance Standby Assistance,Contact Guard Assistance,Minimal Assistance,Verbal Cues Comments wetvest, sm float on LUE, #3. 75 ankle wt on LLE start stop walking forward and backward Water Level Chest Level Walking Equipment vest Level of Assistance Contact Guard Assistance, Verbal Cues Comments wetvest, sm float on LUE, #3. 75 ankle wt on LLE Sideways Water Level Chest Level Walking Equipment wet vest, UE float, #2.5 ankle wt Level of Assistance Standby Assistance,Contact Guard Assistance,Minimal Assistance,Verbal Cues Lower Extremity Exercises SL aquats Details HH on wall Body Position Standing Water Level Waist Level Equipment wetvest Reps/Duration 2x10 LLE Comments VC to extend knee knee extensions Details seated in lift chair Equipment Ankle Weight- 5.0# Reps/Duration 20 B Comments seated in lift SLS Details bracing LLE Body Position Standing Water Level Chest Level Equipment vest Reps/Duration 1 min marching at wall Water Level Chest Level Reps/Duration 2 min Comments opposite UE/LE tapping wall squats Body Position Standing Water Level Chest Level Reps/Duration 20x Lower Extremity Stretches adductors Comments seated in chair Gastroc Body Position Sitting Reps/Duration 2 x 45 sec B Comments manual assist hip flexors Details at wall Body Position Standing Water Level Waist Level Reps/Duration 2x45 Comments manually assisted HS Details at wall Body Position Sitting Water Level Waist Level Equipment wet vest Reps/Duration 2x45 Comments sitting in lift chair assisted Upper Extremity Exercises breastroke UE's Body Position Standing Water Level Chest Level Reps/Duration 3 min Comments during walking and deep water hor ab/ad Water Level Chest Level Comments during side walking, CGA Balance step ups Details step ups/down using boxes Body Position Standing Water Level Waist Level Equipment 8 boxes Comments mod verbal cues for coordination [place] Activities [place] Activities Bicycle,Cross Country Equipment wet vest, white noodle Duration 7 min Comments Guy and cues for vertical alignmernt. PT-OP-T Assessment and Plan Start: 09/17/19 18:00 Freq: Status: Active Protocol: Document 10/13/20 14:30 DCW (Rec: 10/13/20 15:20 DCW [id number]) Physical Therapy Assessment Impairments Impairments Activity Tolerance,Balance, Coordination,Functional Activities,Functional Mobility ,Gait,Pain,ROM,Sensation, Strength,Tone,Transfers Goals Six Impairment Decreased Static Balance Short Term Goal (STG) Pt to score <9 seconds on TUG STG Duration 09/13/20 - Improving (9.05 seconds) Resistor Inspector Goal (LTG) MET - Pt to score 35/56 or better on the Adler Balance NEW GOAL - Pt to score 45/56 or better on the Adler Balance Scale LTG Duration 11/03/20 Five Impairment Pt uses R rail and step-over gait pattern ascending stairs Resistor Inspector Goal (LTG) Pt to ascend/descend stairs independently without use of rail LTG Duration 11/13/20 - Improving Four Impairment Pt demonstrates strength impairment throughout left LE Resistor Inspector Goal (LTG) Pt to display MMT >3+/5 through L LE LTG Duration 11/13/20 - Improving Three Impairment Pt SBA for transfers and bed mobility d/t Left Neglect Intermediate Goal (LTG) Pt to demonstrate independent transfers and bed mobility with an ability to address left LE and UE 80% of the time LTG Duration Met Two Impairment Pt ambulates 280' CGA /s an AD Short Term Goal (STG) Pt to ambulate 400' SBA independently STG Duration Met Resistor Inspector Goal (LTG) Pt to ambulate 800' during 6 MWT Independently without SBA LTG Duration 11/03/20 - Improving (1132' SBA) One Impairment Pt does not have an appropriate home exercise program Short Term Goal (STG) Pt to be independent and compliant with an appropriate HEP STG Duration Met Assessment Summary Assessment Pt still showing a significant improvement with gait, appears to not need to think about heel strike or arm swing as much, just coming more naturally. Physical Therapy Plan Frequency and Duration Frequency of Treatment 2x/Week Duration of Treatment 3 months Plan of Care Start Date 08/04/20 Plan of Care End Date 11/03/20 Therapeutic Interventions Therapeutic Interventions Aquatic Therapy,Balance Training,Coordination Training ,Gait Training,Home Exercise Program,Manual Therapy, Neuromuscular Re-education, Patient/Caregiver Education, Self-Care/Home Management, Therapeutic Activities, Therapeutic Exercises Modalities Cold Pack/Ice Massage,Electric Stimulation,Hot Packs, Ultrasound Next Visit Focus/Plan Next Note Type Treatment Note Next Visit Plan Continue to challenge, continue strengthening, balance and gait training with NMR. Continue deep water for cardio training and core stabilization. Focus on bilateral knee extension in shallow water gait training
--- NOTE | 2020-10-18 15:13 | PT.OTN ---
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) Physical Therapy Treatment Note PT-OP-A Visit Information Start: 09/17/19 18:00 Freq: Status: Active Protocol: Document 10/18/20 14:30 DCW (Rec: 10/18/20 15:12 DCW [id number]) Out-Patient Physical Therapy Visit Information Visit Information Visit Type Treatment Note Visit Start Time 14:30 Visit Stop Time 15:20 Total Visit Minutes 50 Visit Number 81 Number of TERMINAL CARMAN Visits 0 Evaluation Information Evaluation Date 09/17/19 PT-OP-B Current Condition Start: 09/17/19 18:00 Freq: Status: Active Protocol: Document 09/17/19 12:00 DCW (Rec: 09/18/19 10:29 DCW [id number]) Current Condition History of Current Condition Onset Date 04/14/19 Current Complaints Hemiparesis secondary to CVA History of Current Condition Pt is a 69 year old male presenting to skilled outpatient physical therapy with left-side neglect, hemiparesis, loss of independence, and difficulty walking following an intraparenchymal hemorrhage on 04/14/19. Pt was transferred from [facility] to [facility], where a craniotomy was performed on 04/16/19. Pt completed 7 weeks of rehab/ recovery at [facility], and then underwent a second surgery on 06/26/19 to replace the skull fragment. Pt was then at an acute rehab facility 06/30-07/18/19, and since then has been receiving home health physical therapy. Pt presents today with limited left-sided function, left visual and physical neglect, difficulty with transfers, decreased activity tolerance, decreased gait, and many other secondary effects following his CVA. Pt has been working on ambulation with a vale walker with home health, and his states he has walked around 100' a few times, but always with a therapist, as she does not feel comfortable walking with him yet. Pt exclusively gets around at time of evaluation in a manual wheelchair. Pt's transfers have been going fairly well, with his caregivers performing CGA, however pt will occasionally need assistance with placement of his left UE and LE due to neglect. Pt's biggest complaint at the moment is leg pain, his reports they have tried PT, Massage, CBD il, Tylenol, Oxycodine, and Gabapentin, all with minimal benefit. Prior to CVA, pt was fully independent in all activities. Pt and have garegivers 8 hrs a day for assistance. Prior Treatments and Tests Craniotomy 04/16/19, Acute rehab, Skull fragment replacement 06/26/19, home health PT Prior Functional Status Baseline Function- ADL's Independent Baseline Function- Mobility Independent PT-OP-C Subjective Start: 09/17/19 18:00 Freq: Status: Active Protocol: Document 10/18/20 14:30 DCW (Rec: 10/18/20 15:12 DCW [id number]) OP-PT Subjective Patient Comments Patient Comments Pt's notes he walked .6 miles on Sunday. Pt notes his foot has been feeling much better. PT-OP-D Balance Start: 08/04/20 14:14 Freq: Status: Active Protocol: Document 08/04/20 13:45 DCW (Rec: 08/04/20 14:28 DCW [id number]) Balance Tests Adler Balance Test Adler Balance Test Score 39/56 Adler Impairment Rating 20 to 39% Impaired (Score 34- 44) Adler Balance Assessment Evaluation Sitting to Standing Ability Independent w/out Hands Unsupported Stance Supervision- 2 minutes Sitting Unsupported, Feet on Floor Safely- 2 minutes Standing to Sitting Ability Assist, Control w/Hands Transfer Ability Safely, Hand Use Unsupported Stance- Eyes Closed Supervision, 10 seconds Unsupported Stance- Eyes Open Supervision to maintain Reaching Forward Standing Safely, 5 inches Pick- Up Object From Floor Supervision Look Behind Shoulder - Standing Shifts Weight Unilateral Turning 360 Degrees Turns slowly, but safely Unsupported Stance, Alternating Feet on 4 Steps w/Supervision Stair Unsupported Tandem Stance Small Step- 30 seconds Unilateral Leg Stance Lifts Leg/Unable to Hold Total Score Adler Total Score (out of 56 points) 39 Adler Impairment Rating 20 to 39% Impaired (Score 34- 44) PT-OP-E Functional Tests Start: 05/04/20 15:15 Freq: Status: Active Protocol: Document 08/04/20 13:45 DCW (Rec: 08/04/20 14:13 DCW [id number]) Functional Tests 6 Minute Walk Test Distance 1132' Device Used none Comments 3.14 ft/sec Timed Up and Go (TUG) Score 9.05 seconds Comments 3-trial average (10.03, 8.96, 8.16) TUG Impairment Rating 0% Impaired (Score 10) PT-OP-G Mobility & Gait Start: 09/17/19 18:00 Freq: Status: Active Protocol: Document 08/04/20 13:45 DCW (Rec: 08/04/20 14:13 DCW [id number]) OP Mobility Evaluation Bed Mobility Rolling Independent Supine to and from Sit Independent Transfers Sit to Stand SBA Bed to Chair Transfers SBA OP Gait Assessment Gait Gait Assistance Required: Standby Assistance Distance (Feet) 1,132 Assistive Devices Assistive Device None Gait Deviations General Gait Pattern Antalgic,Ataxic,Decreased Feet Clearance,Flexed Trunk, Lateral Trunk Lean Factors Limiting Gait Function Factors Limiting Gait Function Abnormal Tonal Influences, Decreased Activity Tolerance, Decreased Sensation,Decreased Strength,Incoordination,Poor Balance,Poor Safety Awareness Stair Climbing Evaluation Evaluation Level of Assist On Stairs Contact Guard Assistance Devices Stair Climbing Assistive Devices Right Railing Technique/Endurance Stair Climbing Direction Ascend and Descend Stair Climbing Technique Step Over Step,Step to Step Number of Steps Climbed 4 Stair Climbing Set # Repetitions (reps) 6 Comments Stair Climbing Comments Step-over ascending, step-to descending. Minimal scissoring with left during descent. PT-OP-H Neuro Start: 09/17/19 18:00 Freq: Status: Active Protocol: Document 08/04/20 13:45 DCW (Rec: 08/04/20 14:13 DCW [id number]) Sensation Evaluation Gross Sensation Gross Sensation Left UE Impaired,Left LE Impaired Sensation Description Paresthesia,Numbness,Pain Location Details Left Leg Light Touch Impaired Sharp/Dull Impaired Deep Pressure Intact/Normal Proprioception (Position) Impaired Kinesthesia (Movement) Impaired Deep Tendon Reflex & Clonus Assessment Deep Tendon Reflex Left Achilles Deep Tendon Reflex 3+ Normal But Brisk Left Patellar Deep Tendon Reflex 3+ Normal But Brisk Ankle Clonus Left Clonus Assessment 3 Beats Muscle Tone Tone Assessment Left Lower Extremity Flexor Tone Description Mild Hypotonicity PT-OP-M Strength Start: 09/17/19 18:00 Freq: Status: Active Protocol: Document 08/04/20 13:45 DCW (Rec: 08/04/20 14:13 DCW [id number]) Hip Strength Hip Manual Muscle Testing Left Flexion (L2) 3+ Fair+ Extension (S1) 3 Fair Abduction 3 Fair Adduction 4 Good External Rotation 3+ Fair+ Internal Rotation 3+ Fair+ Knee Strength Knee Manual Muscle Testing Left Flexion (S2) 4- Good- Extension (L3) 4+ Good+ Ankle/Foot Strength Ankle and Foot Manual Muscle Testing Left Dorsiflexion (L4) 4 Good Plantarflexion (S1) 3+ Fair+ Inversion 3+ Fair+ Eversion (S1) 3 Fair PT-OP-Q Treatments Start: 09/17/19 18:00 Freq: Status: Active Protocol: Document 10/18/20 14:30 DCW (Rec: 10/18/20 15:12 DCW [id number]) Gym Equipment Shuttle Balance Red Details Wide SRIDEVI, Staggered Comments Min Ax1 Gait Training Gait Activity No AD Description No AD Device Used None Level of Assistance SBA Distance/Duration 1020' x1 Comments VCs to promote heel-toe gait, extend left knee during stance phase Neuro Re-Education Treatment Balance Activities Hurdles Details Hurdles Comments Min Ax1 Cone transfers Details Bending down ball pick-up from cone, kick cone over, ball toss to target PT-OP-R Modalities Start: 09/17/19 18:00 Freq: Status: Active Protocol: Document 10/18/20 14:30 DCW (Rec: 10/18/20 15:12 DCW [id number]) Electric Stimulation Electric Stimulation Interferential Current (IFC) Body Location L ant ankle Duration (Minutes) 15 Patient Position Sitting Combined With Heat/Cold Cold Pack PT-OP-S Aquatic Treatment Start: 09/17/19 18:00 Freq: Status: Active Protocol: Document 01/30/20 12:30 LJ (Rec: 01/30/20 14:54 LJ [id number]) Aquatics Treatment Pool Entry/Exit Pool Entry/Exit Method Lift Assistance Minimal Assistance Water Walking Slow motion Water Level Chest Level Walking Equipment wet vest, UE float, #2.5 ankle wt Level of Assistance Standby Assistance,Contact Guard Assistance,Moderate Assistance Comments emphasis on LLE extension stance phase Marvin March Water Level Chest Level Walking Equipment wet vest, UE float, #2.5 ankle wt Level of Assistance Standby Assistance,Contact Guard Assistance,Moderate Assistance,Verbal Cues Forward with emphasis on reciprocal gait pattern Water Level Chest Level Level of Assistance Standby Assistance,Contact Guard Assistance,Minimal Assistance,Verbal Cues Comments wetvest, sm float on LUE, #3. 75 ankle wt on LLE start stop walking forward and backward Water Level Chest Level Walking Equipment vest Level of Assistance Contact Guard Assistance, Verbal Cues Comments wetvest, sm float on LUE, #3. 75 ankle wt on LLE Sideways Water Level Chest Level Walking Equipment wet vest, UE float, #2.5 ankle wt Level of Assistance Standby Assistance,Contact Guard Assistance,Minimal Assistance,Verbal Cues Lower Extremity Exercises SL aquats Details HH on wall Body Position Standing Water Level Waist Level Equipment wetvest Reps/Duration 2x10 LLE Comments VC to extend knee knee extensions Details seated in lift chair Equipment Ankle Weight- 5.0# Reps/Duration 20 B Comments seated in lift SLS Details bracing LLE Body Position Standing Water Level Chest Level Equipment vest Reps/Duration 1 min marching at wall Water Level Chest Level Reps/Duration 2 min Comments opposite UE/LE tapping wall squats Body Position Standing Water Level Chest Level Reps/Duration 20x Lower Extremity Stretches adductors Comments seated in chair Gastroc Body Position Sitting Reps/Duration 2 x 45 sec B Comments manual assist hip flexors Details at wall Body Position Standing Water Level Waist Level Reps/Duration 2x45 Comments manually assisted HS Details at wall Body Position Sitting Water Level Waist Level Equipment wet vest Reps/Duration 2x45 Comments sitting in lift chair assisted Upper Extremity Exercises breastroke UE's Body Position Standing Water Level Chest Level Reps/Duration 3 min Comments during walking and deep water hor ab/ad Water Level Chest Level Comments during side walking, CGA Balance step ups Details step ups/down using boxes Body Position Standing Water Level Waist Level Equipment 8 boxes Comments mod verbal cues for coordination Katy Activities Katy Activities Bicycle,Cross Country Equipment wet vest, white noodle Duration 7 min Comments Guy and cues for vertical alignmernt. PT-OP-T Assessment and Plan Start: 09/17/19 18:00 Freq: Status: Active Protocol: Document 10/18/20 14:30 DCW (Rec: 10/18/20 15:12 DCW [id number]) Physical Therapy Assessment Impairments Impairments Activity Tolerance,Balance, Coordination,Functional Activities,Functional Mobility ,Gait,Pain,ROM,Sensation, Strength,Tone,Transfers Goals Six Impairment Decreased Static Balance Short Term Goal (STG) Pt to score <9 seconds on TUG STG Duration 09/13/20 - Improving (9.05 seconds) Permit Technician Goal (LTG) MET - Pt to score 35/56 or better on the Adler Balance NEW GOAL - Pt to score 45/56 or better on the Adler Balance Scale LTG Duration 11/03/20 Five Impairment Pt uses R rail and step-over gait pattern ascending stairs Permit Technician Goal (LTG) Pt to ascend/descend stairs independently without use of rail LTG Duration 11/13/20 - Improving Four Impairment Pt demonstrates strength impairment throughout left LE Fpc Goal (LTG) Pt to display MMT >3+/5 through L LE LTG Duration 11/13/20 - Improving Three Impairment Pt SBA for transfers and bed mobility d/t Left Neglect Permit Technician Goal (LTG) Pt to demonstrate independent transfers and bed mobility with an ability to address left LE and UE 80% of the time LTG Duration Met Two Impairment Pt ambulates 280' CGA /s an AD Short Term Goal (STG) Pt to ambulate 400' SBA independently STG Duration Met Permit Technician Goal (LTG) Pt to ambulate 800' during 6 MWT Independently without SBA LTG Duration 11/03/20 - Improving (1132' SBA) One Impairment Pt does not have an appropriate home exercise program Short Term Goal (STG) Pt to be independent and compliant with an appropriate HEP STG Duration Met Assessment Summary Assessment Pt did well today with normal activities. Able to walk farther with no increased fatigue. Pt showed improved balance on Shuttle balance. Physical Therapy Plan Frequency and Duration Frequency of Treatment 2x/Week Duration of Treatment 3 months Plan of Care Start Date 08/04/20 Plan of Care End Date 11/03/20 Therapeutic Interventions Therapeutic Interventions Aquatic Therapy,Balance Training,Coordination Training ,Gait Training,Home Exercise Program,Manual Therapy, Neuromuscular Re-education, Patient/Caregiver Education, Self-Care/Home Management, Therapeutic Activities, Therapeutic Exercises Modalities Cold Pack/Ice Massage,Electric Stimulation,Hot Packs, Ultrasound Next Visit Focus/Plan Next Note Type Treatment Note Next Visit Plan Continue to challenge, continue strengthening, balance and gait training with NMR. Continue deep water for cardio training and core stabilization. Focus on bilateral knee extension in shallow water gait training
--- NOTE | 2020-11-05 13:00 | PT.OTN ---
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) Physical Therapy Treatment Note PT-OP-A Visit Information Start: 09/17/19 18:00 Freq: Status: Active Protocol: Document 11/05/20 12:00 DCW (Rec: 11/05/20 13:00 DCW [id number]) Out-Patient Physical Therapy Visit Information Visit Information Visit Type Progress Note Visit Start Time 12:00 Visit Stop Time 13:00 Total Visit Minutes 60 Visit Number 82 Number of COMPOSITION MIXER Visits 0 Evaluation Information Evaluation Date 09/17/19 PT-OP-B Current Condition Start: 09/17/19 18:00 Freq: Status: Active Protocol: Document 09/17/19 12:00 DCW (Rec: 09/18/19 10:29 DCW [id number]) Current Condition History of Current Condition Onset Date 04/14/19 Current Complaints Hemiparesis secondary to CVA History of Current Condition Pt is a 69 year old male presenting to skilled outpatient physical therapy with left-side neglect, hemiparesis, loss of independence, and difficulty walking following an intraparenchymal hemorrhage on 04/14/19. Pt was transferred from [facility] to [facility], where a craniotomy was performed on 04/16/19. Pt completed 7 weeks of rehab/ recovery at [facility], and then underwent a second surgery on 06/26/19 to replace the skull fragment. Pt was then at an acute rehab facility 06/30-07/18/19, and since then has been receiving home health physical therapy. Pt presents today with limited left-sided function, left visual and physical neglect, difficulty with transfers, decreased activity tolerance, decreased gait, and many other secondary effects following his CVA. Pt has been working on ambulation with a vale walker with home health, and his states he has walked around 100' a few times, but always with a therapist, as she does not feel comfortable walking with him yet. Pt exclusively gets around at time of evaluation in a manual wheelchair. Pt's transfers have been going fairly well, with his caregivers performing CGA, however pt will occasionally need assistance with placement of his left UE and LE due to neglect. Pt's biggest complaint at the moment is leg pain, his reports they have tried PT, Massage, CBD il, Tylenol, Oxycodine, and Gabapentin, all with minimal benefit. Prior to CVA, pt was fully independent in all activities. Pt and have garegivers 8 hrs a day for assistance. Prior Treatments and Tests Craniotomy 04/16/19, Acute rehab, Skull fragment replacement 06/26/19, home health PT Prior Functional Status Baseline Function- ADL's Independent Baseline Function- Mobility Independent PT-OP-C Subjective Start: 09/17/19 18:00 Freq: Status: Active Protocol: Document 11/05/20 12:00 DCW (Rec: 11/05/20 13:00 DCW [id number]) OP-PT Subjective Patient Comments Patient Comments Pt again has been walking .6 miles on his walking days with his caregiver. PT-OP-D Balance Start: 08/04/20 14:14 Freq: Status: Active Protocol: Document 11/05/20 12:00 DCW (Rec: 11/05/20 12:48 DCW [id number]) Balance Tests Adler Balance Test Adler Balance Test Score 44/56 Adler Impairment Rating 20 to 39% Impaired (Score 34- 44) Adler Balance Assessment Evaluation Sitting to Standing Ability Independent w/out Hands Unsupported Stance Safely- 2 minutes Sitting Unsupported, Feet on Floor Safely- 2 minutes Standing to Sitting Ability Safely, Minimal Hand Use Transfer Ability Safely, Minimal Hand Use Unsupported Stance- Eyes Closed Supervision, 10 seconds Unsupported Stance- Eyes Open Supervision to maintain Reaching Forward Standing Safely, 5 inches Pick- Up Object From Floor Independent/Safe Look Behind Shoulder - Standing Shifts Weight Unilateral Turning 360 Degrees Turns slowly, but safely Unsupported Stance, Alternating Feet on 4 Steps w/Supervision Stair Unsupported Tandem Stance Small Step- 30 seconds Unilateral Leg Stance Lifts Leg/Holds > 3 secs Total Score Adler Total Score (out of 56 points) 44 Adler Impairment Rating 20 to 39% Impaired (Score 34- 44) PT-OP-E Functional Tests Start: 05/04/20 15:15 Freq: Status: Active Protocol: Document 11/05/20 12:00 DCW (Rec: 11/05/20 12:48 DCW [id number]) Functional Tests 6 Minute Walk Test Distance 1347' Device Used none Comments 3.74 ft/sec Timed Up and Go (TUG) Score 7.88 seconds Comments 3-trial average (8.16, 7.75, 7 .73) TUG Impairment Rating 0% Impaired (Score 10) PT-OP-G Mobility & Gait Start: 09/17/19 18:00 Freq: Status: Active Protocol: Document 11/05/20 12:00 DCW (Rec: 11/05/20 12:48 DCW [id number]) OP Gait Assessment Gait Gait Assistance Required: Standby Assistance Distance (Feet) 1,347 Assistive Devices Assistive Device None Gait Deviations General Gait Pattern Antalgic,Ataxic,Decreased Feet Clearance,Flexed Trunk, Lateral Trunk Lean Factors Limiting Gait Function Factors Limiting Gait Function Abnormal Tonal Influences, Decreased Activity Tolerance, Decreased Sensation,Decreased Strength,Incoordination,Poor Balance,Poor Safety Awareness PT-OP-H Neuro Start: 09/17/19 18:00 Freq: Status: Active Protocol: Document 11/05/20 12:00 DCW (Rec: 11/05/20 12:48 DCW [id number]) Sensation Evaluation Gross Sensation Gross Sensation Left UE Impaired,Left LE Impaired Sensation Description Paresthesia,Numbness,Pain Location Details Left Leg Light Touch Impaired Sharp/Dull Impaired Deep Pressure Impaired Proprioception (Position) Impaired Kinesthesia (Movement) Impaired Deep Tendon Reflex & Clonus Assessment Deep Tendon Reflex Left Achilles Deep Tendon Reflex 3+ Normal But Brisk Left Patellar Deep Tendon Reflex 3+ Normal But Brisk Ankle Clonus Left Clonus Assessment Sustained Muscle Tone Tone Assessment Left Lower Extremity Flexor Tone Description Mild Hypotonicity PT-OP-M Strength Start: 09/17/19 18:00 Freq: Status: Active Protocol: Document 11/05/20 12:00 DCW (Rec: 11/05/20 12:48 DCW [id number]) Hip Strength Hip Manual Muscle Testing Left Flexion (L2) 4- Good- Extension (S1) 4 Good Abduction 3 Fair Adduction 4 Good External Rotation 3+ Fair+ Internal Rotation 3+ Fair+ Knee Strength Knee Manual Muscle Testing Left Flexion (S2) 4- Good- Extension (L3) 4+ Good+ Ankle/Foot Strength Ankle and Foot Manual Muscle Testing Left Dorsiflexion (L4) 4 Good Plantarflexion (S1) 3+ Fair+ Inversion 3+ Fair+ Eversion (S1) 3 Fair PT-OP-Q Treatments Start: 09/17/19 18:00 Freq: Status: Active Protocol: Document 11/05/20 12:00 DCW (Rec: 11/05/20 13:00 DCW [id number]) Neuro Re-Education Treatment Balance Activities Standing Balance Comments Testing PT-OP-R Modalities Start: 09/17/19 18:00 Freq: Status: Active Protocol: Document 11/05/20 12:00 DCW (Rec: 11/05/20 13:00 DCW [id number]) Electric Stimulation Electric Stimulation Interferential Current (IFC) Body Location L ant ankle Duration (Minutes) 15 Patient Position Sitting Combined With Heat/Cold Cold Pack PT-OP-S Aquatic Treatment Start: 09/17/19 18:00 Freq: Status: Active Protocol: Document 01/30/20 12:30 LJ (Rec: 01/30/20 14:54 LJ [id number]) Aquatics Treatment Pool Entry/Exit Pool Entry/Exit Method Lift Assistance Minimal Assistance Water Walking Slow motion Water Level Chest Level Walking Equipment wet vest, UE float, #2.5 ankle wt Level of Assistance Standby Assistance,Contact Guard Assistance,Moderate Assistance Comments emphasis on LLE extension stance phase January Water Level Chest Level Walking Equipment wet vest, UE float, #2.5 ankle wt Level of Assistance Standby Assistance,Contact Guard Assistance,Moderate Assistance,Verbal Cues Forward with emphasis on reciprocal gait pattern Water Level Chest Level Level of Assistance Standby Assistance,Contact Guard Assistance,Minimal Assistance,Verbal Cues Comments wetvest, sm float on LUE, #3. 75 ankle wt on LLE start stop walking forward and backward Water Level Chest Level Walking Equipment vest Level of Assistance Contact Guard Assistance, Verbal Cues Comments wetvest, sm float on LUE, #3. 75 ankle wt on LLE Sideways Water Level Chest Level Walking Equipment wet vest, UE float, #2.5 ankle wt Level of Assistance Standby Assistance,Contact Guard Assistance,Minimal Assistance,Verbal Cues Lower Extremity Exercises SL aquats Details HH on wall Body Position Standing Water Level Waist Level Equipment wetvest Reps/Duration 2x10 LLE Comments VC to extend knee knee extensions Details seated in lift chair Equipment Ankle Weight- 5.0# Reps/Duration 20 B Comments seated in lift SLS Details bracing LLE Body Position Standing Water Level Chest Level Equipment vest Reps/Duration 1 min marching at wall Water Level Chest Level Reps/Duration 2 min Comments opposite UE/LE tapping wall squats Body Position Standing Water Level Chest Level Reps/Duration 20x Lower Extremity Stretches adductors Comments seated in chair Gastroc Body Position Sitting Reps/Duration 2 x 45 sec B Comments manual assist hip flexors Details at wall Body Position Standing Water Level Waist Level Reps/Duration 2x45 Comments manually assisted HS Details at wall Body Position Sitting Water Level Waist Level Equipment wet vest Reps/Duration 2x45 Comments sitting in lift chair assisted Upper Extremity Exercises breastroke UE's Body Position Standing Water Level Chest Level Reps/Duration 3 min Comments during walking and deep water hor ab/ad Water Level Chest Level Comments during side walking, CGA Balance step ups Details step ups/down using boxes Body Position Standing Water Level Waist Level Equipment 8 boxes Comments mod verbal cues for coordination [place] Activities [place] Activities Bicycle,Cross Country Equipment wet vest, white noodle Duration 7 min Comments Guy and cues for vertical alignmernt. PT-OP-T Assessment and Plan Start: 09/17/19 18:00 Freq: Status: Active Protocol: Document 11/05/20 12:00 DCW (Rec: 11/05/20 13:00 DCW [id number]) Physical Therapy Assessment Impairments Impairments Activity Tolerance,Balance, Coordination,Functional Activities,Functional Mobility ,Gait,Pain,ROM,Sensation, Strength,Tone,Transfers Goals Six Impairment Decreased Static Balance Short Term Goal (STG) Pt to score <9 seconds on TUG STG Duration Met Halfway Goal (LTG) MET - Pt to score 35/56 or better on the Adler Balance NEW GOAL - Pt to score 45/56 or better on the Adler Balance Scale LTG Duration 02/03/21 - Improvin/56 Five Impairment Pt uses R rail and step-over gait pattern ascending stairs Quick Service Technician Goal (LTG) Pt to ascend/descend stairs independently without use of rail LTG Duration 02/03/21 - Improving Four Impairment Pt demonstrates strength impairment throughout left LE Halfway Goal (LTG) Pt to display MMT >3+/5 through L LE LTG Duration 02/03/21 - Improving Three Impairment Pt SBA for transfers and bed mobility d/t Left Neglect Quick Service Technician Goal (LTG) Pt to demonstrate independent transfers and bed mobility with an ability to address left LE and UE 80% of the time LTG Duration Met Two Impairment Pt ambulates 280' CGA /s an AD Short Term Goal (STG) Pt to ambulate 400' SBA independently STG Duration Met Quick Service Technician Goal (LTG) Pt to ambulate 800' during 6 MWT Independently without SBA LTG Duration 02/03/21 - Improving (1347' SBA ) One Impairment Pt does not have an appropriate home exercise program Short Term Goal (STG) Pt to be independent and compliant with an appropriate HEP STG Duration Met Assessment Summary Assessment Pt showing great improvement in nearly all areas. More than 200' improvement in 6 MWT, decreased TUG score below 8 seconds, Adler score improved from 39/56 to 44/56. Mild improvements with MMT, and minimal to no improvement with sensation. Physical Therapy Plan Frequency and Duration Frequency of Treatment 2x/Week Duration of Treatment 3 months Plan of Care Start Date 11/05/20 Plan of Care End Date 02/03/21 Therapeutic Interventions Therapeutic Interventions Aquatic Therapy,Balance Training,Coordination Training ,Gait Training,Home Exercise Program,Manual Therapy, Neuromuscular Re-education, Patient/Caregiver Education, Self-Care/Home Management, Therapeutic Activities, Therapeutic Exercises Modalities Cold Pack/Ice Massage,Electric Stimulation,Hot Packs, Ultrasound Next Visit Focus/Plan Next Note Type Treatment Note Next Visit Plan Continue to challenge, continue strengthening, balance and gait training with NMR. Continue deep water for cardio training and core stabilization. Focus on bilateral knee extension in shallow water gait training
--- NOTE | 2020-11-05 13:00 | PT.OPPOC ---
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) Visit Care Team Role Provider Type Yesy Cortes MD Attending Provider Physician Primary Care Provider Specialty: Internal Medicine Address: [address] [place] [address], [facility] Email: [email or web address] Of Care PT-OP-T Assessment and Plan Start: 09/17/19 18:00 Freq: Status: Active Protocol: Document 11/05/20 12:00 DCW (Rec: 11/05/20 13:00 DCW [id number]) Physical Therapy Assessment Impairments Impairments Activity Tolerance,Balance, Coordination,Functional Activities,Functional Mobility ,Gait,Pain,ROM,Sensation, Strength,Tone,Transfers Goals Six Impairment Decreased Static Balance Short Term Goal (STG) Pt to score <9 seconds on TUG STG Duration Met Electronic Video Games Servicer Goal (LTG) MET - Pt to score 35/56 or better on the Adler Balance NEW GOAL - Pt to score 45/56 or better on the Adler Balance Scale LTG Duration 02/03/21 - Improvin/56 Five Impairment Pt uses R rail and step-over gait pattern ascending stairs Correction Goal (LTG) Pt to ascend/descend stairs independently without use of rail LTG Duration 02/03/21 - Improving Four Impairment Pt demonstrates strength impairment throughout left LE Correction Goal (LTG) Pt to display MMT >3+/5 through L LE LTG Duration 02/03/21 - Improving Three Impairment Pt SBA for transfers and bed mobility d/t Left Neglect Electronic Video Games Servicer Goal (LTG) Pt to demonstrate independent transfers and bed mobility with an ability to address left LE and UE 80% of the time LTG Duration Met Two Impairment Pt ambulates 280' CGA /s an AD Short Term Goal (STG) Pt to ambulate 400' SBA independently STG Duration Met Correction Goal (LTG) Pt to ambulate 800' during 6 MWT Independently without SBA LTG Duration 02/03/21 - Improving (1347' SBA ) One Impairment Pt does not have an appropriate home exercise program Short Term Goal (STG) Pt to be independent and compliant with an appropriate HEP STG Duration Met Assessment Summary Assessment Pt showing great improvement in nearly all areas. More than 200' improvement in 6 MWT, decreased TUG score below 8 seconds, Adler score improved from 39/56 to 44/56. Mild improvements with MMT, and minimal to no improvement with sensation. Physical Therapy Plan Frequency and Duration Frequency of Treatment 2x/Week Duration of Treatment 3 months Plan of Care Start Date 11/05/20 Plan of Care End Date 02/03/21 Therapeutic Interventions Therapeutic Interventions Aquatic Therapy,Balance Training,Coordination Training ,Gait Training,Home Exercise Program,Manual Therapy, Neuromuscular Re-education, Patient/Caregiver Education, Self-Care/Home Management, Therapeutic Activities, Therapeutic Exercises Modalities Cold Pack/Ice Massage,Electric Stimulation,Hot Packs, Ultrasound Next Visit Focus/Plan Next Note Type Treatment Note Next Visit Plan Continue to challenge, continue strengthening, balance and gait training with NMR. Continue deep water for cardio training and core stabilization. Focus on bilateral knee extension in shallow water gait training Plan of Care Dates Plan of Care Start Date 11/05/20 Plan of Care End Date 02/03/21 Electronically Signed by: Osbaldo Barrios, PT 11/05/20 1300 Please Sign and Return: I have reviewed this Plan of Care and certify that the skilled therapy services above are required to meet the patient?s needs. Physician Signature Date Printed Name and Credentials Clinical Instructor Signature Printed Name and Credentials
--- NOTE | 2020-11-09 12:04 | PT.OTN ---
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) Physical Therapy Treatment Note PT-OP-A Visit Information Start: 09/17/19 18:00 Freq: Status: Active Protocol: Document 11/09/20 11:20 DCW (Rec: 11/09/20 12:02 DCW [id number]) Out-Patient Physical Therapy Visit Information Visit Information Visit Type Treatment Note Visit Start Time 11:20 Visit Stop Time 12:10 Total Visit Minutes 50 Visit Number 83 Number of RICE FIELD WORKER Visits 0 Evaluation Information Evaluation Date 09/17/19 PT-OP-B Current Condition Start: 09/17/19 18:00 Freq: Status: Active Protocol: Document 09/17/19 12:00 DCW (Rec: 09/18/19 10:29 DCW [id number]) Current Condition History of Current Condition Onset Date 04/14/19 Current Complaints Hemiparesis secondary to CVA History of Current Condition Pt is a 69 year old male presenting to skilled outpatient physical therapy with left-side neglect, hemiparesis, loss of independence, and difficulty walking following an intraparenchymal hemorrhage on 04/14/19. Pt was transferred from [facility] to [facility], where a craniotomy was performed on 04/16/19. Pt completed 7 weeks of rehab/ recovery at [facility], and then underwent a second surgery on 06/26/19 to replace the skull fragment. Pt was then at an acute rehab facility 06/30-07/18/19, and since then has been receiving home health physical therapy. Pt presents today with limited left-sided function, left visual and physical neglect, difficulty with transfers, decreased activity tolerance, decreased gait, and many other secondary effects following his CVA. Pt has been working on ambulation with a vale walker with home health, and his states he has walked around 100' a few times, but always with a therapist, as she does not feel comfortable walking with him yet. Pt exclusively gets around at time of evaluation in a manual wheelchair. Pt's transfers have been going fairly well, with his caregivers performing CGA, however pt will occasionally need assistance with placement of his left UE and LE due to neglect. Pt's biggest complaint at the moment is leg pain, his reports they have tried PT, Massage, CBD il, Tylenol, Oxycodine, and Gabapentin, all with minimal benefit. Prior to CVA, pt was fully independent in all activities. Pt and have garegivers 8 hrs a day for assistance. Prior Treatments and Tests Craniotomy 04/16/19, Acute rehab, Skull fragment replacement 06/26/19, home health PT Prior Functional Status Baseline Function- ADL's Independent Baseline Function- Mobility Independent PT-OP-C Subjective Start: 09/17/19 18:00 Freq: Status: Active Protocol: Document 11/09/20 11:20 DCW (Rec: 11/09/20 12:02 DCW [id number]) OP-PT Subjective Patient Comments Patient Comments Pt reports he is doing well today. PT-OP-D Balance Start: 08/04/20 14:14 Freq: Status: Active Protocol: Document 11/05/20 12:00 DCW (Rec: 11/05/20 12:48 DCW [id number]) Balance Tests Adler Balance Test Adler Balance Test Score 44/56 Adler Impairment Rating 20 to 39% Impaired (Score 34- 44) Adler Balance Assessment Evaluation Sitting to Standing Ability Independent w/out Hands Unsupported Stance Safely- 2 minutes Sitting Unsupported, Feet on Floor Safely- 2 minutes Standing to Sitting Ability Safely, Minimal Hand Use Transfer Ability Safely, Minimal Hand Use Unsupported Stance- Eyes Closed Supervision, 10 seconds Unsupported Stance- Eyes Open Supervision to maintain Reaching Forward Standing Safely, 5 inches Pick- Up Object From Floor Independent/Safe Look Behind Shoulder - Standing Shifts Weight Unilateral Turning 360 Degrees Turns slowly, but safely Unsupported Stance, Alternating Feet on 4 Steps w/Supervision Stair Unsupported Tandem Stance Small Step- 30 seconds Unilateral Leg Stance Lifts Leg/Holds > 3 secs Total Score Adler Total Score (out of 56 points) 44 Adler Impairment Rating 20 to 39% Impaired (Score 34- 44) PT-OP-E Functional Tests Start: 05/04/20 15:15 Freq: Status: Active Protocol: Document 11/05/20 12:00 DCW (Rec: 11/05/20 12:48 DCW [id number]) Functional Tests 6 Minute Walk Test Distance 1347' Device Used none Comments 3.74 ft/sec Timed Up and Go (TUG) Score 7.88 seconds Comments 3-trial average (8.16, 7.75, 7 .73) TUG Impairment Rating 0% Impaired (Score 10) PT-OP-G Mobility & Gait Start: 09/17/19 18:00 Freq: Status: Active Protocol: Document 11/05/20 12:00 DCW (Rec: 11/05/20 12:48 DCW [id number]) OP Gait Assessment Gait Gait Assistance Required: Standby Assistance Distance (Feet) 1,347 Assistive Devices Assistive Device None Gait Deviations General Gait Pattern Antalgic,Ataxic,Decreased Feet Clearance,Flexed Trunk, Lateral Trunk Lean Factors Limiting Gait Function Factors Limiting Gait Function Abnormal Tonal Influences, Decreased Activity Tolerance, Decreased Sensation,Decreased Strength,Incoordination,Poor Balance,Poor Safety Awareness PT-OP-H Neuro Start: 09/17/19 18:00 Freq: Status: Active Protocol: Document 11/05/20 12:00 DCW (Rec: 11/05/20 12:48 DCW [id number]) Sensation Evaluation Gross Sensation Gross Sensation Left UE Impaired,Left LE Impaired Sensation Description Paresthesia,Numbness,Pain Location Details Left Leg Light Touch Impaired Sharp/Dull Impaired Deep Pressure Impaired Proprioception (Position) Impaired Kinesthesia (Movement) Impaired Deep Tendon Reflex & Clonus Assessment Deep Tendon Reflex Left Achilles Deep Tendon Reflex 3+ Normal But Brisk Left Patellar Deep Tendon Reflex 3+ Normal But Brisk Ankle Clonus Left Clonus Assessment Sustained Muscle Tone Tone Assessment Left Lower Extremity Flexor Tone Description Mild Hypotonicity PT-OP-M Strength Start: 09/17/19 18:00 Freq: Status: Active Protocol: Document 11/05/20 12:00 DCW (Rec: 11/05/20 12:48 DCW [id number]) Hip Strength Hip Manual Muscle Testing Left Flexion (L2) 4- Good- Extension (S1) 4 Good Abduction 3 Fair Adduction 4 Good External Rotation 3+ Fair+ Internal Rotation 3+ Fair+ Knee Strength Knee Manual Muscle Testing Left Flexion (S2) 4- Good- Extension (L3) 4+ Good+ Ankle/Foot Strength Ankle and Foot Manual Muscle Testing Left Dorsiflexion (L4) 4 Good Plantarflexion (S1) 3+ Fair+ Inversion 3+ Fair+ Eversion (S1) 3 Fair PT-OP-Q Treatments Start: 09/17/19 18:00 Freq: Status: Active Protocol: Document 11/09/20 11:20 DCW (Rec: 11/09/20 12:02 DCW [id number]) Gym Equipment Shuttle Balance Red Details Wide SRIDEVI, Staggered Comments Min Ax1 Gait Training Gait Activity No AD Description No AD Device Used None Level of Assistance SBA Distance/Duration 950' x1 Comments VCs to promote heel-toe gait, extend left knee during stance phase Neuro Re-Education Treatment Balance Activities Hurdles Details Hurdles Comments Min Ax1 Cone transfers Details Bending down ball pick-up from cone, kick cone over, ball toss to target PT-OP-R Modalities Start: 09/17/19 18:00 Freq: Status: Active Protocol: Document 11/09/20 11:20 DCW (Rec: 11/09/20 12:02 DCW [id number]) Electric Stimulation Electric Stimulation Interferential Current (IFC) Body Location L ant ankle Duration (Minutes) 15 Patient Position Sitting Combined With Heat/Cold Cold Pack PT-OP-S Aquatic Treatment Start: 09/17/19 18:00 Freq: Status: Active Protocol: Document 01/30/20 12:30 LJ (Rec: 01/30/20 14:54 LJ [id number]) Aquatics Treatment Pool Entry/Exit Pool Entry/Exit Method Lift Assistance Minimal Assistance Water Walking Slow motion Water Level Chest Level Walking Equipment wet vest, UE float, #2.5 ankle wt Level of Assistance Standby Assistance,Contact Guard Assistance,Moderate Assistance Comments emphasis on LLE extension stance phase January Water Level Chest Level Walking Equipment wet vest, UE float, #2.5 ankle wt Level of Assistance Standby Assistance,Contact Guard Assistance,Moderate Assistance,Verbal Cues Forward with emphasis on reciprocal gait pattern Water Level Chest Level Level of Assistance Standby Assistance,Contact Guard Assistance,Minimal Assistance,Verbal Cues Comments wetvest, sm float on LUE, #3. 75 ankle wt on LLE start stop walking forward and backward Water Level Chest Level Walking Equipment vest Level of Assistance Contact Guard Assistance, Verbal Cues Comments wetvest, sm float on LUE, #3. 75 ankle wt on LLE Sideways Water Level Chest Level Walking Equipment wet vest, UE float, #2.5 ankle wt Level of Assistance Standby Assistance,Contact Guard Assistance,Minimal Assistance,Verbal Cues Lower Extremity Exercises SL aquats Details HH on wall Body Position Standing Water Level Waist Level Equipment wetvest Reps/Duration 2x10 LLE Comments VC to extend knee knee extensions Details seated in lift chair Equipment Ankle Weight- 5.0# Reps/Duration 20 B Comments seated in lift SLS Details bracing LLE Body Position Standing Water Level Chest Level Equipment vest Reps/Duration 1 min marching at wall Water Level Chest Level Reps/Duration 2 min Comments opposite UE/LE tapping wall squats Body Position Standing Water Level Chest Level Reps/Duration 20x Lower Extremity Stretches adductors Comments seated in chair Gastroc Body Position Sitting Reps/Duration 2 x 45 sec B Comments manual assist hip flexors Details at wall Body Position Standing Water Level Waist Level Reps/Duration 2x45 Comments manually assisted HS Details at wall Body Position Sitting Water Level Waist Level Equipment wet vest Reps/Duration 2x45 Comments sitting in lift chair assisted Upper Extremity Exercises breastroke UE's Body Position Standing Water Level Chest Level Reps/Duration 3 min Comments during walking and deep water hor ab/ad Water Level Chest Level Comments during side walking, CGA Balance step ups Details step ups/down using boxes Body Position Standing Water Level Waist Level Equipment 8 boxes Comments mod verbal cues for coordination [place] Activities [place] Activities Bicycle,Cross Country Equipment wet vest, white noodle Duration 7 min Comments Guy and cues for vertical alignmernt. PT-OP-T Assessment and Plan Start: 09/17/19 18:00 Freq: Status: Active Protocol: Document 11/09/20 11:20 DCW (Rec: 11/09/20 12:02 DCW [id number]) Physical Therapy Assessment Impairments Impairments Activity Tolerance,Balance, Coordination,Functional Activities,Functional Mobility ,Gait,Pain,ROM,Sensation, Strength,Tone,Transfers Goals Six Impairment Decreased Static Balance Short Term Goal (STG) Pt to score <9 seconds on TUG STG Duration Met Half-Way Goal (LTG) MET - Pt to score 35/56 or better on the Adler Balance NEW GOAL - Pt to score 45/56 or better on the Adler Balance Scale LTG Duration 02/03/21 - Improvin/56 Five Impairment Pt uses R rail and step-over gait pattern ascending stairs Knitting Machine Operator Helper Goal (LTG) Pt to ascend/descend stairs independently without use of rail LTG Duration 02/03/21 - Improving Four Impairment Pt demonstrates strength impairment throughout left LE Knitting Machine Operator Helper Goal (LTG) Pt to display MMT >3+/5 through L LE LTG Duration 02/03/21 - Improving Three Impairment Pt SBA for transfers and bed mobility d/t Left Neglect Knitting Machine Operator Helper Goal (LTG) Pt to demonstrate independent transfers and bed mobility with an ability to address left LE and UE 80% of the time LTG Duration Met Two Impairment Pt ambulates 280' CGA /s an AD Short Term Goal (STG) Pt to ambulate 400' SBA independently STG Duration Met Knitting Machine Operator Helper Goal (LTG) Pt to ambulate 800' during 6 MWT Independently without SBA LTG Duration 02/03/21 - Improving (1347' SBA ) One Impairment Pt does not have an appropriate home exercise program Short Term Goal (STG) Pt to be independent and compliant with an appropriate HEP STG Duration Met Assessment Summary Assessment Pt doing well today, showing significant improvement with hurdles and standing balance. Physical Therapy Plan Frequency and Duration Frequency of Treatment 2x/Week Duration of Treatment 3 months Plan of Care Start Date 11/05/20 Plan of Care End Date 02/03/21 Therapeutic Interventions Therapeutic Interventions Aquatic Therapy,Balance Training,Coordination Training ,Gait Training,Home Exercise Program,Manual Therapy, Neuromuscular Re-education, Patient/Caregiver Education, Self-Care/Home Management, Therapeutic Activities, Therapeutic Exercises Modalities Cold Pack/Ice Massage,Electric Stimulation,Hot Packs, Ultrasound Next Visit Focus/Plan Next Note Type Treatment Note Next Visit Plan Continue to challenge, continue strengthening, balance and gait training with NMR. Continue deep water for cardio training and core stabilization. Focus on bilateral knee extension in shallow water gait training
--- NOTE | 2020-11-16 16:36 | PT.OTN ---
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) Physical Therapy Treatment Note PT-OP-A Visit Information Start: 09/17/19 18:00 Freq: Status: Active Protocol: Document 11/16/20 16:02 DCW (Rec: 11/16/20 16:36 DCW [id number]) Out-Patient Physical Therapy Visit Information Visit Information Visit Type Treatment Note Visit Start Time 16:02 Visit Stop Time 16:45 Total Visit Minutes 43 Visit Number 84 Number of STORM DOOR MAKER Visits 0 Evaluation Information Evaluation Date 09/17/19 PT-OP-B Current Condition Start: 09/17/19 18:00 Freq: Status: Active Protocol: Document 09/17/19 12:00 DCW (Rec: 09/18/19 10:29 DCW [id number]) Current Condition History of Current Condition Onset Date 04/14/19 Current Complaints Hemiparesis secondary to CVA History of Current Condition Pt is a 69 year old male presenting to skilled outpatient physical therapy with left-side neglect, hemiparesis, loss of independence, and difficulty walking following an intraparenchymal hemorrhage on 04/14/19. Pt was transferred from [facility] to [facility], where a craniotomy was performed on 04/16/19. Pt completed 7 weeks of rehab/ recovery at [facility], and then underwent a second surgery on 06/26/19 to replace the skull fragment. Pt was then at an acute rehab facility 06/30-07/18/19, and since then has been receiving home health physical therapy. Pt presents today with limited left-sided function, left visual and physical neglect, difficulty with transfers, decreased activity tolerance, decreased gait, and many other secondary effects following his CVA. Pt has been working on ambulation with a vale walker with home health, and his states he has walked around 100' a few times, but always with a therapist, as she does not feel comfortable walking with him yet. Pt exclusively gets around at time of evaluation in a manual wheelchair. Pt's transfers have been going fairly well, with his caregivers performing CGA, however pt will occasionally need assistance with placement of his left UE and LE due to neglect. Pt's biggest complaint at the moment is leg pain, his reports they have tried PT, Massage, CBD il, Tylenol, Oxycodine, and Gabapentin, all with minimal benefit. Prior to CVA, pt was fully independent in all activities. Pt and have garegivers 8 hrs a day for assistance. Prior Treatments and Tests Craniotomy 04/16/19, Acute rehab, Skull fragment replacement 06/26/19, home health PT Prior Functional Status Baseline Function- ADL's Independent Baseline Function- Mobility Independent PT-OP-C Subjective Start: 09/17/19 18:00 Freq: Status: Active Protocol: Document 11/16/20 16:02 DCW (Rec: 11/16/20 16:36 DCW [id number]) OP-PT Subjective Patient Comments Patient Comments I spent too much of the holidays sitting around eating . Pt's notes that on morning, pt was able to walk from the kitchen to the living room with no assistance carrying a cup of coffee for her, which was a very big deal for us. Report they cannot stay any later than 1645 due to schedule conflict. PT-OP-D Balance Start: 08/04/20 14:14 Freq: Status: Active Protocol: Document 11/05/20 12:00 DCW (Rec: 11/05/20 12:48 DCW [id number]) Balance Tests Adler Balance Test Adler Balance Test Score 44/56 Adler Impairment Rating 20 to 39% Impaired (Score 34- 44) Adler Balance Assessment Evaluation Sitting to Standing Ability Independent w/out Hands Unsupported Stance Safely- 2 minutes Sitting Unsupported, Feet on Floor Safely- 2 minutes Standing to Sitting Ability Safely, Minimal Hand Use Transfer Ability Safely, Minimal Hand Use Unsupported Stance- Eyes Closed Supervision, 10 seconds Unsupported Stance- Eyes Open Supervision to maintain Reaching Forward Standing Safely, 5 inches Pick- Up Object From Floor Independent/Safe Look Behind Shoulder - Standing Shifts Weight Unilateral Turning 360 Degrees Turns slowly, but safely Unsupported Stance, Alternating Feet on 4 Steps w/Supervision Stair Unsupported Tandem Stance Small Step- 30 seconds Unilateral Leg Stance Lifts Leg/Holds > 3 secs Total Score Adler Total Score (out of 56 points) 44 Adler Impairment Rating 20 to 39% Impaired (Score 34- 44) PT-OP-E Functional Tests Start: 05/04/20 15:15 Freq: Status: Active Protocol: Document 11/05/20 12:00 DCW (Rec: 11/05/20 12:48 DCW [id number]) Functional Tests 6 Minute Walk Test Distance 1347' Device Used none Comments 3.74 ft/sec Timed Up and Go (TUG) Score 7.88 seconds Comments 3-trial average (8.16, 7.75, 7 .73) TUG Impairment Rating 0% Impaired (Score 10) PT-OP-G Mobility & Gait Start: 09/17/19 18:00 Freq: Status: Active Protocol: Document 11/05/20 12:00 DCW (Rec: 11/05/20 12:48 DCW [id number]) OP Gait Assessment Gait Gait Assistance Required: Standby Assistance Distance (Feet) 1,347 Assistive Devices Assistive Device None Gait Deviations General Gait Pattern Antalgic,Ataxic,Decreased Feet Clearance,Flexed Trunk, Lateral Trunk Lean Factors Limiting Gait Function Factors Limiting Gait Function Abnormal Tonal Influences, Decreased Activity Tolerance, Decreased Sensation,Decreased Strength,Incoordination,Poor Balance,Poor Safety Awareness PT-OP-H Neuro Start: 09/17/19 18:00 Freq: Status: Active Protocol: Document 11/05/20 12:00 DCW (Rec: 11/05/20 12:48 DCW [id number]) Sensation Evaluation Gross Sensation Gross Sensation Left UE Impaired,Left LE Impaired Sensation Description Paresthesia,Numbness,Pain Location Details Left Leg Light Touch Impaired Sharp/Dull Impaired Deep Pressure Impaired Proprioception (Position) Impaired Kinesthesia (Movement) Impaired Deep Tendon Reflex & Clonus Assessment Deep Tendon Reflex Left Achilles Deep Tendon Reflex 3+ Normal But Brisk Left Patellar Deep Tendon Reflex 3+ Normal But Brisk Ankle Clonus Left Clonus Assessment Sustained Muscle Tone Tone Assessment Left Lower Extremity Flexor Tone Description Mild Hypotonicity PT-OP-M Strength Start: 09/17/19 18:00 Freq: Status: Active Protocol: Document 11/05/20 12:00 DCW (Rec: 11/05/20 12:48 DCW [id number]) Hip Strength Hip Manual Muscle Testing Left Flexion (L2) 4- Good- Extension (S1) 4 Good Abduction 3 Fair Adduction 4 Good External Rotation 3+ Fair+ Internal Rotation 3+ Fair+ Knee Strength Knee Manual Muscle Testing Left Flexion (S2) 4- Good- Extension (L3) 4+ Good+ Ankle/Foot Strength Ankle and Foot Manual Muscle Testing Left Dorsiflexion (L4) 4 Good Plantarflexion (S1) 3+ Fair+ Inversion 3+ Fair+ Eversion (S1) 3 Fair PT-OP-Q Treatments Start: 09/17/19 18:00 Freq: Status: Active Protocol: Document 11/16/20 16:02 DCW (Rec: 11/16/20 16:36 DCW [id number]) Therapeutic Exercises Standing Exercises Toe-taps Standing Exercise Name Toe-taps Side bilateral Resistance 10# Equipment Used 6 step Gait Training Gait Activity No AD Description No AD Device Used None Level of Assistance SBA Distance/Duration 950' x1 Comments VCs to promote heel-toe gait, extend left knee during stance phase Neuro Re-Education Treatment Balance Activities Hurdles Details Hurdles Comments Min Ax1 Cone transfers Details Bending down ball pick-up from cone, kick cone over, ball toss to target PT-OP-R Modalities Start: 09/17/19 18:00 Freq: Status: Active Protocol: Document 11/16/20 16:02 DCW (Rec: 11/16/20 16:36 DCW [id number]) Electric Stimulation Electric Stimulation Interferential Current (IFC) Body Location L ant ankle Duration (Minutes) 15 Patient Position Sitting Combined With Heat/Cold Cold Pack PT-OP-S Aquatic Treatment Start: 09/17/19 18:00 Freq: Status: Active Protocol: Document 01/30/20 12:30 LJ (Rec: 01/30/20 14:54 LJ [id number]) Aquatics Treatment Pool Entry/Exit Pool Entry/Exit Method Lift Assistance Minimal Assistance Water Walking Slow motion Water Level Chest Level Walking Equipment wet vest, UE float, #2.5 ankle wt Level of Assistance Standby Assistance,Contact Guard Assistance,Moderate Assistance Comments emphasis on LLE extension stance phase January Water Level Chest Level Walking Equipment wet vest, UE float, #2.5 ankle wt Level of Assistance Standby Assistance,Contact Guard Assistance,Moderate Assistance,Verbal Cues Forward with emphasis on reciprocal gait pattern Water Level Chest Level Level of Assistance Standby Assistance,Contact Guard Assistance,Minimal Assistance,Verbal Cues Comments wetvest, sm float on LUE, #3. 75 ankle wt on LLE start stop walking forward and backward Water Level Chest Level Walking Equipment vest Level of Assistance Contact Guard Assistance, Verbal Cues Comments wetvest, sm float on LUE, #3. 75 ankle wt on LLE Sideways Water Level Chest Level Walking Equipment wet vest, UE float, #2.5 ankle wt Level of Assistance Standby Assistance,Contact Guard Assistance,Minimal Assistance,Verbal Cues Lower Extremity Exercises SL aquats Details HH on wall Body Position Standing Water Level Waist Level Equipment wetvest Reps/Duration 2x10 LLE Comments VC to extend knee knee extensions Details seated in lift chair Equipment Ankle Weight- 5.0# Reps/Duration 20 B Comments seated in lift SLS Details bracing LLE Body Position Standing Water Level Chest Level Equipment vest Reps/Duration 1 min marching at wall Water Level Chest Level Reps/Duration 2 min Comments opposite UE/LE tapping wall squats Body Position Standing Water Level Chest Level Reps/Duration 20x Lower Extremity Stretches adductors Comments seated in chair Gastroc Body Position Sitting Reps/Duration 2 x 45 sec B Comments manual assist hip flexors Details at wall Body Position Standing Water Level Waist Level Reps/Duration 2x45 Comments manually assisted HS Details at wall Body Position Sitting Water Level Waist Level Equipment wet vest Reps/Duration 2x45 Comments sitting in lift chair assisted Upper Extremity Exercises breastroke UE's Body Position Standing Water Level Chest Level Reps/Duration 3 min Comments during walking and deep water hor ab/ad Water Level Chest Level Comments during side walking, CGA Balance step ups Details step ups/down using boxes Body Position Standing Water Level Waist Level Equipment 8 boxes Comments mod verbal cues for coordination Way[place] Activities Waycross Activities Bicycle,Cross Country Equipment wet vest, white noodle Duration 7 min Comments Guy and cues for vertical alignmernt. PT-OP-T Assessment and Plan Start: 09/17/19 18:00 Freq: Status: Active Protocol: Document 11/16/20 16:02 DCW (Rec: 11/16/20 16:36 DCW [id number]) Physical Therapy Assessment Impairments Impairments Activity Tolerance,Balance, Coordination,Functional Activities,Functional Mobility ,Gait,Pain,ROM,Sensation, Strength,Tone,Transfers Goals Six Impairment Decreased Static Balance Short Term Goal (STG) Pt to score <9 seconds on TUG STG Duration Met Nursing Home Goal (LTG) MET - Pt to score 35/56 or better on the Adler Balance NEW GOAL - Pt to score 45/56 or better on the Adler Balance Scale LTG Duration 02/03/21 - Improvin/56 Five Impairment Pt uses R rail and step-over gait pattern ascending stairs Nursing Home Goal (LTG) Pt to ascend/descend stairs independently without use of rail LTG Duration 02/03/21 - Improving Four Impairment Pt demonstrates strength impairment throughout left LE Nursing Home Goal (LTG) Pt to display MMT >3+/5 through L LE LTG Duration 02/03/21 - Improving Three Impairment Pt SBA for transfers and bed mobility d/t Left Neglect Physical Security Manager Goal (LTG) Pt to demonstrate independent transfers and bed mobility with an ability to address left LE and UE 80% of the time LTG Duration Met Two Impairment Pt ambulates 280' CGA /s an AD Short Term Goal (STG) Pt to ambulate 400' SBA independently STG Duration Met Physical Security Manager Goal (LTG) Pt to ambulate 800' during 6 MWT Independently without SBA LTG Duration 02/03/21 - Improving (1347' SBA ) One Impairment Pt does not have an appropriate home exercise program Short Term Goal (STG) Pt to be independent and compliant with an appropriate HEP STG Duration Met Assessment Summary Assessment Pt mobility good today, continues to progress with gait and stability. Slightly more fatigued today than normal. Physical Therapy Plan Frequency and Duration Frequency of Treatment 2x/Week Duration of Treatment 3 months Plan of Care Start Date 11/05/20 Plan of Care End Date 02/03/21 Therapeutic Interventions Therapeutic Interventions Aquatic Therapy,Balance Training,Coordination Training ,Gait Training,Home Exercise Program,Manual Therapy, Neuromuscular Re-education, Patient/Caregiver Education, Self-Care/Home Management, Therapeutic Activities, Therapeutic Exercises Modalities Cold Pack/Ice Massage,Electric Stimulation,Hot Packs, Ultrasound Next Visit Focus/Plan Next Note Type Treatment Note Next Visit Plan Continue to challenge, continue strengthening, balance and gait training with NMR. Continue deep water for cardio training and core stabilization. Focus on bilateral knee extension in shallow water gait training
--- NOTE | 2020-11-22 14:39 | PT.OTN ---
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) Physical Therapy Treatment Note PT-OP-A Visit Information Start: 09/17/19 18:00 Freq: Status: Active Protocol: Document 11/22/20 13:45 DCW (Rec: 11/22/20 14:39 DCW [id number]) Out-Patient Physical Therapy Visit Information Visit Information Visit Type Treatment Note Visit Start Time 13:45 Visit Stop Time 14:40 Total Visit Minutes 55 Visit Number 85 Number of CARE TECHNICIAN Visits 0 Evaluation Information Evaluation Date 09/17/19 PT-OP-B Current Condition Start: 09/17/19 18:00 Freq: Status: Active Protocol: Document 09/17/19 12:00 DCW (Rec: 09/18/19 10:29 DCW [id number]) Current Condition History of Current Condition Onset Date 04/14/19 Current Complaints Hemiparesis secondary to CVA History of Current Condition Pt is a 69 year old male presenting to skilled outpatient physical therapy with left-side neglect, hemiparesis, loss of independence, and difficulty walking following an intraparenchymal hemorrhage on 04/14/19. Pt was transferred from [facility] to [facility], where a craniotomy was performed on 04/16/19. Pt completed 7 weeks of rehab/ recovery at [facility], and then underwent a second surgery on 06/26/19 to replace the skull fragment. Pt was then at an acute rehab facility 06/30-07/18/19, and since then has been receiving home health physical therapy. Pt presents today with limited left-sided function, left visual and physical neglect, difficulty with transfers, decreased activity tolerance, decreased gait, and many other secondary effects following his CVA. Pt has been working on ambulation with a vale walker with home health, and his states he has walked around 100' a few times, but always with a therapist, as she does not feel comfortable walking with him yet. Pt exclusively gets around at time of evaluation in a manual wheelchair. Pt's transfers have been going fairly well, with his caregivers performing CGA, however pt will occasionally need assistance with placement of his left UE and LE due to neglect. Pt's biggest complaint at the moment is leg pain, his reports they have tried PT, Massage, CBD il, Tylenol, Oxycodine, and Gabapentin, all with minimal benefit. Prior to CVA, pt was fully independent in all activities. Pt and have garegivers 8 hrs a day for assistance. Prior Treatments and Tests Craniotomy 04/16/19, Acute rehab, Skull fragment replacement 06/26/19, home health PT Prior Functional Status Baseline Function- ADL's Independent Baseline Function- Mobility Independent PT-OP-C Subjective Start: 09/17/19 18:00 Freq: Status: Active Protocol: Document 11/22/20 13:45 DCW (Rec: 11/22/20 14:39 DCW [id number]) OP-PT Subjective Patient Comments Patient Comments I guess I have a sinus infection, they're planning to give me some antibiotics, but I haven't gotten the perscription yet. It's been giving me a pretty bad headache, though. PT-OP-D Balance Start: 08/04/20 14:14 Freq: Status: Active Protocol: Document 11/05/20 12:00 DCW (Rec: 11/05/20 12:48 DCW [id number]) Balance Tests Adler Balance Test Adler Balance Test Score 44/56 Adler Impairment Rating 20 to 39% Impaired (Score 34- 44) Adler Balance Assessment Evaluation Sitting to Standing Ability Independent w/out Hands Unsupported Stance Safely- 2 minutes Sitting Unsupported, Feet on Floor Safely- 2 minutes Standing to Sitting Ability Safely, Minimal Hand Use Transfer Ability Safely, Minimal Hand Use Unsupported Stance- Eyes Closed Supervision, 10 seconds Unsupported Stance- Eyes Open Supervision to maintain Reaching Forward Standing Safely, 5 inches Pick- Up Object From Floor Independent/Safe Look Behind Shoulder - Standing Shifts Weight Unilateral Turning 360 Degrees Turns slowly, but safely Unsupported Stance, Alternating Feet on 4 Steps w/Supervision Stair Unsupported Tandem Stance Small Step- 30 seconds Unilateral Leg Stance Lifts Leg/Holds > 3 secs Total Score Adler Total Score (out of 56 points) 44 Adler Impairment Rating 20 to 39% Impaired (Score 34- 44) PT-OP-E Functional Tests Start: 05/04/20 15:15 Freq: Status: Active Protocol: Document 11/05/20 12:00 DCW (Rec: 11/05/20 12:48 DCW [id number]) Functional Tests 6 Minute Walk Test Distance 1347' Device Used none Comments 3.74 ft/sec Timed Up and Go (TUG) Score 7.88 seconds Comments 3-trial average (8.16, 7.75, 7 .73) TUG Impairment Rating 0% Impaired (Score 10) PT-OP-G Mobility & Gait Start: 09/17/19 18:00 Freq: Status: Active Protocol: Document 11/05/20 12:00 DCW (Rec: 11/05/20 12:48 DCW [id number]) OP Gait Assessment Gait Gait Assistance Required: Standby Assistance Distance (Feet) 1,347 Assistive Devices Assistive Device None Gait Deviations General Gait Pattern Antalgic,Ataxic,Decreased Feet Clearance,Flexed Trunk, Lateral Trunk Lean Factors Limiting Gait Function Factors Limiting Gait Function Abnormal Tonal Influences, Decreased Activity Tolerance, Decreased Sensation,Decreased Strength,Incoordination,Poor Balance,Poor Safety Awareness PT-OP-H Neuro Start: 09/17/19 18:00 Freq: Status: Active Protocol: Document 11/05/20 12:00 DCW (Rec: 11/05/20 12:48 DCW [id number]) Sensation Evaluation Gross Sensation Gross Sensation Left UE Impaired,Left LE Impaired Sensation Description Paresthesia,Numbness,Pain Location Details Left Leg Light Touch Impaired Sharp/Dull Impaired Deep Pressure Impaired Proprioception (Position) Impaired Kinesthesia (Movement) Impaired Deep Tendon Reflex & Clonus Assessment Deep Tendon Reflex Left Achilles Deep Tendon Reflex 3+ Normal But Brisk Left Patellar Deep Tendon Reflex 3+ Normal But Brisk Ankle Clonus Left Clonus Assessment Sustained Muscle Tone Tone Assessment Left Lower Extremity Flexor Tone Description Mild Hypotonicity PT-OP-M Strength Start: 09/17/19 18:00 Freq: Status: Active Protocol: Document 11/05/20 12:00 DCW (Rec: 11/05/20 12:48 DCW [id number]) Hip Strength Hip Manual Muscle Testing Left Flexion (L2) 4- Good- Extension (S1) 4 Good Abduction 3 Fair Adduction 4 Good External Rotation 3+ Fair+ Internal Rotation 3+ Fair+ Knee Strength Knee Manual Muscle Testing Left Flexion (S2) 4- Good- Extension (L3) 4+ Good+ Ankle/Foot Strength Ankle and Foot Manual Muscle Testing Left Dorsiflexion (L4) 4 Good Plantarflexion (S1) 3+ Fair+ Inversion 3+ Fair+ Eversion (S1) 3 Fair PT-OP-Q Treatments Start: 09/17/19 18:00 Freq: Status: Active Protocol: Document 11/22/20 13:45 DCW (Rec: 11/22/20 14:39 DCW [id number]) Gym Equipment Shuttle Recovery Unilateral Heel Raises Details Left Resistance 25# Reps/Time calf stretch at end Unilateral Squats Details Left Resistance 62# Shuttle Recovery Platform Stable Bilateral Squats Resistance 100# Shuttle Recovery Platform Stable Shuttle Balance Red Details Wide SRIDEVI, Staggered Comments Min Ax1 Gait Training Gait Activity No AD Description No AD Device Used None Level of Assistance SBA Distance/Duration 900' x1 Comments VCs to promote heel-toe gait, extend left knee during stance phase Neuro Re-Education Treatment Balance Activities Cone transfers Details Bending down ball pick-up from cone, kick cone over, ball toss to target PT-OP-R Modalities Start: 09/17/19 18:00 Freq: Status: Active Protocol: Document 11/22/20 13:45 DCW (Rec: 11/22/20 14:39 DCW [id number]) Electric Stimulation Electric Stimulation Interferential Current (IFC) Body Location L ant ankle Duration (Minutes) 15 Patient Position Sitting Combined With Heat/Cold Cold Pack PT-OP-S Aquatic Treatment Start: 09/17/19 18:00 Freq: Status: Active Protocol: Document 01/30/20 12:30 LJ (Rec: 01/30/20 14:54 LJ [id number]) Aquatics Treatment Pool Entry/Exit Pool Entry/Exit Method Lift Assistance Minimal Assistance Water Walking Slow motion Water Level Chest Level Walking Equipment wet vest, UE float, #2.5 ankle wt Level of Assistance Standby Assistance,Contact Guard Assistance,Moderate Assistance Comments emphasis on LLE extension stance phase January Water Level Chest Level Walking Equipment wet vest, UE float, #2.5 ankle wt Level of Assistance Standby Assistance,Contact Guard Assistance,Moderate Assistance,Verbal Cues Forward with emphasis on reciprocal gait pattern Water Level Chest Level Level of Assistance Standby Assistance,Contact Guard Assistance,Minimal Assistance,Verbal Cues Comments wetvest, sm float on LUE, #3. 75 ankle wt on LLE start stop walking forward and backward Water Level Chest Level Walking Equipment vest Level of Assistance Contact Guard Assistance, Verbal Cues Comments wetvest, sm float on LUE, #3. 75 ankle wt on LLE Sideways Water Level Chest Level Walking Equipment wet vest, UE float, #2.5 ankle wt Level of Assistance Standby Assistance,Contact Guard Assistance,Minimal Assistance,Verbal Cues Lower Extremity Exercises SL aquats Details HH on wall Body Position Standing Water Level Waist Level Equipment wetvest Reps/Duration 2x10 LLE Comments VC to extend knee knee extensions Details seated in lift chair Equipment Ankle Weight- 5.0# Reps/Duration 20 B Comments seated in lift SLS Details bracing LLE Body Position Standing Water Level Chest Level Equipment vest Reps/Duration 1 min marching at wall Water Level Chest Level Reps/Duration 2 min Comments opposite UE/LE tapping wall squats Body Position Standing Water Level Chest Level Reps/Duration 20x Lower Extremity Stretches adductors Comments seated in chair Gastroc Body Position Sitting Reps/Duration 2 x 45 sec B Comments manual assist hip flexors Details at wall Body Position Standing Water Level Waist Level Reps/Duration 2x45 Comments manually assisted HS Details at wall Body Position Sitting Water Level Waist Level Equipment wet vest Reps/Duration 2x45 Comments sitting in lift chair assisted Upper Extremity Exercises breastroke UE's Body Position Standing Water Level Chest Level Reps/Duration 3 min Comments during walking and deep water hor ab/ad Water Level Chest Level Comments during side walking, CGA Balance step ups Details step ups/down using boxes Body Position Standing Water Level Waist Level Equipment 8 boxes Comments mod verbal cues for coordination [place] Activities [place] Activities Bicycle,Cross Country Equipment wet vest, white noodle Duration 7 min Comments Guy and cues for vertical alignmernt. PT-OP-T Assessment and Plan Start: 09/17/19 18:00 Freq: Status: Active Protocol: Document 11/22/20 13:45 DCW (Rec: 11/22/20 14:39 DCW [id number]) Physical Therapy Assessment Impairments Impairments Activity Tolerance,Balance, Coordination,Functional Activities,Functional Mobility ,Gait,Pain,ROM,Sensation, Strength,Tone,Transfers Goals Six Impairment Decreased Static Balance Short Term Goal (STG) Pt to score <9 seconds on TUG STG Duration Met Detention Goal (LTG) MET - Pt to score 35/56 or better on the Adler Balance NEW GOAL - Pt to score 45/56 or better on the Adler Balance Scale LTG Duration 02/03/21 - Improvin/56 Five Impairment Pt uses R rail and step-over gait pattern ascending stairs Detention Goal (LTG) Pt to ascend/descend stairs independently without use of rail LTG Duration 02/03/21 - Improving Four Impairment Pt demonstrates strength impairment throughout left LE Lead Embedded Software Engineer Goal (LTG) Pt to display MMT >3+/5 through L LE LTG Duration 02/03/21 - Improving Three Impairment Pt SBA for transfers and bed mobility d/t Left Neglect Detention Goal (LTG) Pt to demonstrate independent transfers and bed mobility with an ability to address left LE and UE 80% of the time LTG Duration Met Two Impairment Pt ambulates 280' CGA /s an AD Short Term Goal (STG) Pt to ambulate 400' SBA independently STG Duration Met Lead Embedded Software Engineer Goal (LTG) Pt to ambulate 800' during 6 MWT Independently without SBA LTG Duration 02/03/21 - Improving (1347' SBA ) One Impairment Pt does not have an appropriate home exercise program Short Term Goal (STG) Pt to be independent and compliant with an appropriate HEP STG Duration Met Assessment Summary Assessment Pt noticeably decreased darryl today, more hesitant, likely related to pt's complaints of a sinus headache. Physical Therapy Plan Frequency and Duration Frequency of Treatment 2x/Week Duration of Treatment 3 months Plan of Care Start Date 11/05/20 Plan of Care End Date 02/03/21 Therapeutic Interventions Therapeutic Interventions Aquatic Therapy,Balance Training,Coordination Training ,Gait Training,Home Exercise Program,Manual Therapy, Neuromuscular Re-education, Patient/Caregiver Education, Self-Care/Home Management, Therapeutic Activities, Therapeutic Exercises Modalities Cold Pack/Ice Massage,Electric Stimulation,Hot Packs, Ultrasound Next Visit Focus/Plan Next Note Type Treatment Note Next Visit Plan Continue to challenge, continue strengthening, balance and gait training with NMR. Continue deep water for cardio training and core stabilization. Focus on bilateral knee extension in shallow water gait training
--- NOTE | 2020-11-29 14:17 | PT.OTN ---
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) Physical Therapy Treatment Note PT-OP-A Visit Information Start: 09/17/19 18:00 Freq: Status: Active Protocol: Document 11/29/20 13:45 DCW (Rec: 11/29/20 14:17 DCW [id number]) Out-Patient Physical Therapy Visit Information Visit Information Visit Type Treatment Note Visit Start Time 13:45 Visit Stop Time 14:30 Total Visit Minutes 45 Visit Number 86 Number of [employer] HAND Visits 0 Evaluation Information Evaluation Date 09/17/19 PT-OP-B Current Condition Start: 09/17/19 18:00 Freq: Status: Active Protocol: Document 09/17/19 12:00 DCW (Rec: 09/18/19 10:29 DCW [id number]) Current Condition History of Current Condition Onset Date 04/14/19 Current Complaints Hemiparesis secondary to CVA History of Current Condition Pt is a 69 year old male presenting to skilled outpatient physical therapy with left-side neglect, hemiparesis, loss of independence, and difficulty walking following an intraparenchymal hemorrhage on 04/14/19. Pt was transferred from [facility] to [facility], where a craniotomy was performed on 04/16/19. Pt completed 7 weeks of rehab/ recovery at [facility], and then underwent a second surgery on 06/26/19 to replace the skull fragment. Pt was then at an acute rehab facility 06/30-07/18/19, and since then has been receiving home health physical therapy. Pt presents today with limited left-sided function, left visual and physical neglect, difficulty with transfers, decreased activity tolerance, decreased gait, and many other secondary effects following his CVA. Pt has been working on ambulation with a vale walker with home health, and his states he has walked around 100' a few times, but always with a therapist, as she does not feel comfortable walking with him yet. Pt exclusively gets around at time of evaluation in a manual wheelchair. Pt's transfers have been going fairly well, with his caregivers performing CGA, however pt will occasionally need assistance with placement of his left UE and LE due to neglect. Pt's biggest complaint at the moment is leg pain, his reports they have tried PT, Massage, CBD il, Tylenol, Oxycodine, and Gabapentin, all with minimal benefit. Prior to CVA, pt was fully independent in all activities. Pt and have garegivers 8 hrs a day for assistance. Prior Treatments and Tests Craniotomy 04/16/19, Acute rehab, Skull fragment replacement 06/26/19, home health PT Prior Functional Status Baseline Function- ADL's Independent Baseline Function- Mobility Independent PT-OP-C Subjective Start: 09/17/19 18:00 Freq: Status: Active Protocol: Document 11/29/20 13:45 DCW (Rec: 11/29/20 14:17 DCW [id number]) OP-PT Subjective Patient Comments Patient Comments Pt notes that he has some mild dizziness today due to sinus congestion, describes worsened dizziness with positional changes. Pt also notes a recent fall in the kitchen, tried to sit in his wheelchair , but it was not locked, and he notes he had a slow, controlled fall to his knees, was able to get himself up, no injuries. PT-OP-D Balance Start: 08/04/20 14:14 Freq: Status: Active Protocol: Document 11/05/20 12:00 DCW (Rec: 11/05/20 12:48 DCW [id number]) Balance Tests Adler Balance Test Adler Balance Test Score 44/56 Adler Impairment Rating 20 to 39% Impaired (Score 34- 44) Adler Balance Assessment Evaluation Sitting to Standing Ability Independent w/out Hands Unsupported Stance Safely- 2 minutes Sitting Unsupported, Feet on Floor Safely- 2 minutes Standing to Sitting Ability Safely, Minimal Hand Use Transfer Ability Safely, Minimal Hand Use Unsupported Stance- Eyes Closed Supervision, 10 seconds Unsupported Stance- Eyes Open Supervision to maintain Reaching Forward Standing Safely, 5 inches Pick- Up Object From Floor Independent/Safe Look Behind Shoulder - Standing Shifts Weight Unilateral Turning 360 Degrees Turns slowly, but safely Unsupported Stance, Alternating Feet on 4 Steps w/Supervision Stair Unsupported Tandem Stance Small Step- 30 seconds Unilateral Leg Stance Lifts Leg/Holds > 3 secs Total Score Adler Total Score (out of 56 points) 44 Adler Impairment Rating 20 to 39% Impaired (Score 34- 44) PT-OP-E Functional Tests Start: 05/04/20 15:15 Freq: Status: Active Protocol: Document 11/05/20 12:00 DCW (Rec: 11/05/20 12:48 DCW [id number]) Functional Tests 6 Minute Walk Test Distance 1347' Device Used none Comments 3.74 ft/sec Timed Up and Go (TUG) Score 7.88 seconds Comments 3-trial average (8.16, 7.75, 7 .73) TUG Impairment Rating 0% Impaired (Score 10) PT-OP-G Mobility & Gait Start: 09/17/19 18:00 Freq: Status: Active Protocol: Document 11/05/20 12:00 DCW (Rec: 11/05/20 12:48 DCW [id number]) OP Gait Assessment Gait Gait Assistance Required: Standby Assistance Distance (Feet) 1,347 Assistive Devices Assistive Device None Gait Deviations General Gait Pattern Antalgic,Ataxic,Decreased Feet Clearance,Flexed Trunk, Lateral Trunk Lean Factors Limiting Gait Function Factors Limiting Gait Function Abnormal Tonal Influences, Decreased Activity Tolerance, Decreased Sensation,Decreased Strength,Incoordination,Poor Balance,Poor Safety Awareness PT-OP-H Neuro Start: 09/17/19 18:00 Freq: Status: Active Protocol: Document 11/05/20 12:00 DCW (Rec: 11/05/20 12:48 DCW [id number]) Sensation Evaluation Gross Sensation Gross Sensation Left UE Impaired,Left LE Impaired Sensation Description Paresthesia,Numbness,Pain Location Details Left Leg Light Touch Impaired Sharp/Dull Impaired Deep Pressure Impaired Proprioception (Position) Impaired Kinesthesia (Movement) Impaired Deep Tendon Reflex & Clonus Assessment Deep Tendon Reflex Left Achilles Deep Tendon Reflex 3+ Normal But Brisk Left Patellar Deep Tendon Reflex 3+ Normal But Brisk Ankle Clonus Left Clonus Assessment Sustained Muscle Tone Tone Assessment Left Lower Extremity Flexor Tone Description Mild Hypotonicity PT-OP-M Strength Start: 09/17/19 18:00 Freq: Status: Active Protocol: Document 11/05/20 12:00 DCW (Rec: 11/05/20 12:48 DCW [id number]) Hip Strength Hip Manual Muscle Testing Left Flexion (L2) 4- Good- Extension (S1) 4 Good Abduction 3 Fair Adduction 4 Good External Rotation 3+ Fair+ Internal Rotation 3+ Fair+ Knee Strength Knee Manual Muscle Testing Left Flexion (S2) 4- Good- Extension (L3) 4+ Good+ Ankle/Foot Strength Ankle and Foot Manual Muscle Testing Left Dorsiflexion (L4) 4 Good Plantarflexion (S1) 3+ Fair+ Inversion 3+ Fair+ Eversion (S1) 3 Fair PT-OP-Q Treatments Start: 09/17/19 18:00 Freq: Status: Active Protocol: Document 11/29/20 13:45 DCW (Rec: 11/29/20 14:17 DCW [id number]) Gym Equipment Shuttle Recovery Unilateral Heel Raises Details Left Resistance 25# Reps/Time calf stretch at end Unilateral Squats Details Left Resistance 62# Shuttle Recovery Platform Stable Bilateral Squats Resistance 100# Shuttle Recovery Platform Stable Shuttle Balance Red Details Wide SRIDEVI, Staggered Comments Min Ax1 Gait Training Gait Activity No AD Description No AD Device Used None Level of Assistance SBA Distance/Duration 950' x1 Comments VCs to promote heel-toe gait, extend left knee during stance phase PT-OP-R Modalities Start: 09/17/19 18:00 Freq: Status: Active Protocol: Document 11/29/20 13:45 DCW (Rec: 11/29/20 14:17 DCW [id number]) Electric Stimulation Electric Stimulation Interferential Current (IFC) Body Location L ant ankle Duration (Minutes) 15 Patient Position Sitting Combined With Heat/Cold Cold Pack PT-OP-S Aquatic Treatment Start: 09/17/19 18:00 Freq: Status: Active Protocol: Document 01/30/20 12:30 LJ (Rec: 01/30/20 14:54 LJ [id number]) Aquatics Treatment Pool Entry/Exit Pool Entry/Exit Method Lift Assistance Minimal Assistance Water Walking Slow motion Water Level Chest Level Walking Equipment wet vest, UE float, #2.5 ankle wt Level of Assistance Standby Assistance,Contact Guard Assistance,Moderate Assistance Comments emphasis on LLE extension stance phase January Water Level Chest Level Walking Equipment wet vest, UE float, #2.5 ankle wt Level of Assistance Standby Assistance,Contact Guard Assistance,Moderate Assistance,Verbal Cues Forward with emphasis on reciprocal gait pattern Water Level Chest Level Level of Assistance Standby Assistance,Contact Guard Assistance,Minimal Assistance,Verbal Cues Comments wetvest, sm float on LUE, #3. 75 ankle wt on LLE start stop walking forward and backward Water Level Chest Level Walking Equipment vest Level of Assistance Contact Guard Assistance, Verbal Cues Comments wetvest, sm float on LUE, #3. 75 ankle wt on LLE Sideways Water Level Chest Level Walking Equipment wet vest, UE float, #2.5 ankle wt Level of Assistance Standby Assistance,Contact Guard Assistance,Minimal Assistance,Verbal Cues Lower Extremity Exercises SL aquats Details HH on wall Body Position Standing Water Level Waist Level Equipment wetvest Reps/Duration 2x10 LLE Comments VC to extend knee knee extensions Details seated in lift chair Equipment Ankle Weight- 5.0# Reps/Duration 20 B Comments seated in lift SLS Details bracing LLE Body Position Standing Water Level Chest Level Equipment vest Reps/Duration 1 min marching at wall Water Level Chest Level Reps/Duration 2 min Comments opposite UE/LE tapping wall squats Body Position Standing Water Level Chest Level Reps/Duration 20x Lower Extremity Stretches adductors Comments seated in chair Gastroc Body Position Sitting Reps/Duration 2 x 45 sec B Comments manual assist hip flexors Details at wall Body Position Standing Water Level Waist Level Reps/Duration 2x45 Comments manually assisted HS Details at wall Body Position Sitting Water Level Waist Level Equipment wet vest Reps/Duration 2x45 Comments sitting in lift chair assisted Upper Extremity Exercises breastroke UE's Body Position Standing Water Level Chest Level Reps/Duration 3 min Comments during walking and deep water hor ab/ad Water Level Chest Level Comments during side walking, CGA Balance step ups Details step ups/down using boxes Body Position Standing Water Level Waist Level Equipment 8 boxes Comments mod verbal cues for coordination Vaughan Activities Vaughan Activities Bicycle,Cross Country Equipment wet vest, white noodle Duration 7 min Comments Guy and cues for vertical alignmernt. PT-OP-T Assessment and Plan Start: 09/17/19 18:00 Freq: Status: Active Protocol: Document 11/29/20 13:45 DCW (Rec: 11/29/20 14:17 DCW [id number]) Physical Therapy Assessment Impairments Impairments Activity Tolerance,Balance, Coordination,Functional Activities,Functional Mobility ,Gait,Pain,ROM,Sensation, Strength,Tone,Transfers Goals Six Impairment Decreased Static Balance Short Term Goal (STG) Pt to score <9 seconds on TUG STG Duration Met Surveyor Helper Rod Goal (LTG) MET - Pt to score 35/56 or better on the Adler Balance NEW GOAL - Pt to score 45/56 or better on the Adler Balance Scale LTG Duration 02/03/21 - Improvin/56 Five Impairment Pt uses R rail and step-over gait pattern ascending stairs Surveyor Helper Rod Goal (LTG) Pt to ascend/descend stairs independently without use of rail LTG Duration 02/03/21 - Improving Four Impairment Pt demonstrates strength impairment throughout left LE Residential Goal (LTG) Pt to display MMT >3+/5 through L LE LTG Duration 02/03/21 - Improving Three Impairment Pt SBA for transfers and bed mobility d/t Left Neglect Surveyor Helper Rod Goal (LTG) Pt to demonstrate independent transfers and bed mobility with an ability to address left LE and UE 80% of the time LTG Duration Met Two Impairment Pt ambulates 280' CGA /s an AD Short Term Goal (STG) Pt to ambulate 400' SBA independently STG Duration Met Residential Goal (LTG) Pt to ambulate 800' during 6 MWT Independently without SBA LTG Duration 02/03/21 - Improving (1347' SBA ) One Impairment Pt does not have an appropriate home exercise program Short Term Goal (STG) Pt to be independent and compliant with an appropriate HEP STG Duration Met Assessment Summary Assessment Pt did well overall today, shorter than usual treatment today due to scheduled Speech Therapy appt immediately following PT. Physical Therapy Plan Frequency and Duration Frequency of Treatment 2x/Week Duration of Treatment 3 months Plan of Care Start Date 11/05/20 Plan of Care End Date 02/03/21 Therapeutic Interventions Therapeutic Interventions Aquatic Therapy,Balance Training,Coordination Training ,Gait Training,Home Exercise Program,Manual Therapy, Neuromuscular Re-education, Patient/Caregiver Education, Self-Care/Home Management, Therapeutic Activities, Therapeutic Exercises Modalities Cold Pack/Ice Massage,Electric Stimulation,Hot Packs, Ultrasound Next Visit Focus/Plan Next Note Type Treatment Note Next Visit Plan Continue to challenge, continue strengthening, balance and gait training with NMR. Continue deep water for cardio training and core stabilization. Focus on bilateral knee extension in shallow water gait training
--- NOTE | 2020-12-02 12:43 | PT.OTN ---
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) Physical Therapy Treatment Note PT-OP-A Visit Information Start: 09/17/19 18:00 Freq: Status: Active Protocol: Document 12/02/20 12:00 DCW (Rec: 12/02/20 12:42 DCW [id number]) Out-Patient Physical Therapy Visit Information Visit Information Visit Type Treatment Note Visit Start Time 12:00 Visit Stop Time 12:55 Total Visit Minutes 55 Visit Number 87 Number of STEAM TENDER Visits 0 Evaluation Information Evaluation Date 09/17/19 PT-OP-B Current Condition Start: 09/17/19 18:00 Freq: Status: Active Protocol: Document 09/17/19 12:00 DCW (Rec: 09/18/19 10:29 DCW [id number]) Current Condition History of Current Condition Onset Date 04/14/19 Current Complaints Hemiparesis secondary to CVA History of Current Condition Pt is a 69 year old male presenting to skilled outpatient physical therapy with left-side neglect, hemiparesis, loss of independence, and difficulty walking following an intraparenchymal hemorrhage on 04/14/19. Pt was transferred from [facility] to [facility], where a craniotomy was performed on 04/16/19. Pt completed 7 weeks of rehab/ recovery at [facility], and then underwent a second surgery on 06/26/19 to replace the skull fragment. Pt was then at an acute rehab facility 06/30-07/18/19, and since then has been receiving home health physical therapy. Pt presents today with limited left-sided function, left visual and physical neglect, difficulty with transfers, decreased activity tolerance, decreased gait, and many other secondary effects following his CVA. Pt has been working on ambulation with a vale walker with home health, and his states he has walked around 100' a few times, but always with a therapist, as she does not feel comfortable walking with him yet. Pt exclusively gets around at time of evaluation in a manual wheelchair. Pt's transfers have been going fairly well, with his caregivers performing CGA, however pt will occasionally need assistance with placement of his left UE and LE due to neglect. Pt's biggest complaint at the moment is leg pain, his reports they have tried PT, Massage, CBD il, Tylenol, Oxycodine, and Gabapentin, all with minimal benefit. Prior to CVA, pt was fully independent in all activities. Pt and have garegivers 8 hrs a day for assistance. Prior Treatments and Tests Craniotomy 04/16/19, Acute rehab, Skull fragment replacement 06/26/19, home health PT Prior Functional Status Baseline Function- ADL's Independent Baseline Function- Mobility Independent PT-OP-C Subjective Start: 09/17/19 18:00 Freq: Status: Active Protocol: Document 12/02/20 12:00 DCW (Rec: 12/02/20 12:42 DCW [id number]) OP-PT Subjective Patient Comments Patient Comments Pt's notes that he has been having cramping in his right calf. PT-OP-D Balance Start: 08/04/20 14:14 Freq: Status: Active Protocol: Document 11/05/20 12:00 DCW (Rec: 11/05/20 12:48 DCW [id number]) Balance Tests Adler Balance Test Adler Balance Test Score 44/56 Adler Impairment Rating 20 to 39% Impaired (Score 34- 44) Adler Balance Assessment Evaluation Sitting to Standing Ability Independent w/out Hands Unsupported Stance Safely- 2 minutes Sitting Unsupported, Feet on Floor Safely- 2 minutes Standing to Sitting Ability Safely, Minimal Hand Use Transfer Ability Safely, Minimal Hand Use Unsupported Stance- Eyes Closed Supervision, 10 seconds Unsupported Stance- Eyes Open Supervision to maintain Reaching Forward Standing Safely, 5 inches Pick- Up Object From Floor Independent/Safe Look Behind Shoulder - Standing Shifts Weight Unilateral Turning 360 Degrees Turns slowly, but safely Unsupported Stance, Alternating Feet on 4 Steps w/Supervision Stair Unsupported Tandem Stance Small Step- 30 seconds Unilateral Leg Stance Lifts Leg/Holds > 3 secs Total Score Adler Total Score (out of 56 points) 44 Adler Impairment Rating 20 to 39% Impaired (Score 34- 44) PT-OP-E Functional Tests Start: 05/04/20 15:15 Freq: Status: Active Protocol: Document 11/05/20 12:00 DCW (Rec: 11/05/20 12:48 DCW [id number]) Functional Tests 6 Minute Walk Test Distance 1347' Device Used none Comments 3.74 ft/sec Timed Up and Go (TUG) Score 7.88 seconds Comments 3-trial average (8.16, 7.75, 7 .73) TUG Impairment Rating 0% Impaired (Score 10) PT-OP-G Mobility & Gait Start: 09/17/19 18:00 Freq: Status: Active Protocol: Document 11/05/20 12:00 DCW (Rec: 11/05/20 12:48 DCW [id number]) OP Gait Assessment Gait Gait Assistance Required: Standby Assistance Distance (Feet) 1,347 Assistive Devices Assistive Device None Gait Deviations General Gait Pattern Antalgic,Ataxic,Decreased Feet Clearance,Flexed Trunk, Lateral Trunk Lean Factors Limiting Gait Function Factors Limiting Gait Function Abnormal Tonal Influences, Decreased Activity Tolerance, Decreased Sensation,Decreased Strength,Incoordination,Poor Balance,Poor Safety Awareness PT-OP-H Neuro Start: 09/17/19 18:00 Freq: Status: Active Protocol: Document 11/05/20 12:00 DCW (Rec: 11/05/20 12:48 DCW [id number]) Sensation Evaluation Gross Sensation Gross Sensation Left UE Impaired,Left LE Impaired Sensation Description Paresthesia,Numbness,Pain Location Details Left Leg Light Touch Impaired Sharp/Dull Impaired Deep Pressure Impaired Proprioception (Position) Impaired Kinesthesia (Movement) Impaired Deep Tendon Reflex & Clonus Assessment Deep Tendon Reflex Left Achilles Deep Tendon Reflex 3+ Normal But Brisk Left Patellar Deep Tendon Reflex 3+ Normal But Brisk Ankle Clonus Left Clonus Assessment Sustained Muscle Tone Tone Assessment Left Lower Extremity Flexor Tone Description Mild Hypotonicity PT-OP-M Strength Start: 09/17/19 18:00 Freq: Status: Active Protocol: Document 11/05/20 12:00 DCW (Rec: 11/05/20 12:48 DCW [id number]) Hip Strength Hip Manual Muscle Testing Left Flexion (L2) 4- Good- Extension (S1) 4 Good Abduction 3 Fair Adduction 4 Good External Rotation 3+ Fair+ Internal Rotation 3+ Fair+ Knee Strength Knee Manual Muscle Testing Left Flexion (S2) 4- Good- Extension (L3) 4+ Good+ Ankle/Foot Strength Ankle and Foot Manual Muscle Testing Left Dorsiflexion (L4) 4 Good Plantarflexion (S1) 3+ Fair+ Inversion 3+ Fair+ Eversion (S1) 3 Fair PT-OP-Q Treatments Start: 09/17/19 18:00 Freq: Status: Active Protocol: Document 12/02/20 12:00 DCW (Rec: 12/02/20 12:42 DCW [id number]) Gym Equipment Shuttle Recovery Unilateral Heel Raises Details Left Resistance 25# Reps/Time calf stretch at end Unilateral Squats Details Left Resistance 62# Shuttle Recovery Platform Stable Bilateral Squats Resistance 100# Shuttle Recovery Platform Stable Therapeutic Exercises Standing Exercises Toe-taps Standing Exercise Name Toe-taps Side bilateral Resistance 10# Equipment Used 6 step Gait Training Gait Activity No AD Description No AD Device Used None Level of Assistance SBA Distance/Duration 1100' x1 Comments VCs to promote heel-toe gait, extend left knee during stance phase Neuro Re-Education Treatment Balance Activities Cone transfers Details Bending down ball pick-up from cone, kick cone over, ball toss to target PT-OP-R Modalities Start: 09/17/19 18:00 Freq: Status: Active Protocol: Document 12/02/20 12:00 DCW (Rec: 12/02/20 12:42 DCW [id number]) Electric Stimulation Electric Stimulation Interferential Current (IFC) Body Location L ant ankle Duration (Minutes) 15 Patient Position Sitting Combined With Heat/Cold Cold Pack PT-OP-S Aquatic Treatment Start: 09/17/19 18:00 Freq: Status: Active Protocol: Document 01/30/20 12:30 LJ (Rec: 01/30/20 14:54 LJ [id number]) Aquatics Treatment Pool Entry/Exit Pool Entry/Exit Method Lift Assistance Minimal Assistance Water Walking Slow motion Water Level Chest Level Walking Equipment wet vest, UE float, #2.5 ankle wt Level of Assistance Standby Assistance,Contact Guard Assistance,Moderate Assistance Comments emphasis on LLE extension stance phase January Water Level Chest Level Walking Equipment wet vest, UE float, #2.5 ankle wt Level of Assistance Standby Assistance,Contact Guard Assistance,Moderate Assistance,Verbal Cues Forward with emphasis on reciprocal gait pattern Water Level Chest Level Level of Assistance Standby Assistance,Contact Guard Assistance,Minimal Assistance,Verbal Cues Comments wetvest, sm float on LUE, #3. 75 ankle wt on LLE start stop walking forward and backward Water Level Chest Level Walking Equipment vest Level of Assistance Contact Guard Assistance, Verbal Cues Comments wetvest, sm float on LUE, #3. 75 ankle wt on LLE Sideways Water Level Chest Level Walking Equipment wet vest, UE float, #2.5 ankle wt Level of Assistance Standby Assistance,Contact Guard Assistance,Minimal Assistance,Verbal Cues Lower Extremity Exercises SL aquats Details HH on wall Body Position Standing Water Level Waist Level Equipment wetvest Reps/Duration 2x10 LLE Comments VC to extend knee knee extensions Details seated in lift chair Equipment Ankle Weight- 5.0# Reps/Duration 20 B Comments seated in lift SLS Details bracing LLE Body Position Standing Water Level Chest Level Equipment vest Reps/Duration 1 min marching at wall Water Level Chest Level Reps/Duration 2 min Comments opposite UE/LE tapping wall squats Body Position Standing Water Level Chest Level Reps/Duration 20x Lower Extremity Stretches adductors Comments seated in chair Gastroc Body Position Sitting Reps/Duration 2 x 45 sec B Comments manual assist hip flexors Details at wall Body Position Standing Water Level Waist Level Reps/Duration 2x45 Comments manually assisted HS Details at wall Body Position Sitting Water Level Waist Level Equipment wet vest Reps/Duration 2x45 Comments sitting in lift chair assisted Upper Extremity Exercises breastroke UE's Body Position Standing Water Level Chest Level Reps/Duration 3 min Comments during walking and deep water hor ab/ad Water Level Chest Level Comments during side walking, CGA Balance step ups Details step ups/down using boxes Body Position Standing Water Level Waist Level Equipment 8 boxes Comments mod verbal cues for coordination [place] Activities [place] Activities Bicycle,Cross Country Equipment wet vest, white noodle Duration 7 min Comments Guy and cues for vertical alignmernt. PT-OP-T Assessment and Plan Start: 09/17/19 18:00 Freq: Status: Active Protocol: Document 12/02/20 12:00 DCW (Rec: 12/02/20 12:42 DCW [id number]) Physical Therapy Assessment Impairments Impairments Activity Tolerance,Balance, Coordination,Functional Activities,Functional Mobility ,Gait,Pain,ROM,Sensation, Strength,Tone,Transfers Goals Six Impairment Decreased Static Balance Short Term Goal (STG) Pt to score <9 seconds on TUG STG Duration Met Long-Term Goal (LTG) MET - Pt to score 35/56 or better on the Adler Balance NEW GOAL - Pt to score 45/56 or better on the Adler Balance Scale LTG Duration 02/03/21 - Improvin/56 Five Impairment Pt uses R rail and step-over gait pattern ascending stairs Long-Term Goal (LTG) Pt to ascend/descend stairs independently without use of rail LTG Duration 02/03/21 - Improving Four Impairment Pt demonstrates strength impairment throughout left LE [place] Chopper Goal (LTG) Pt to display MMT >3+/5 through L LE LTG Duration 02/03/21 - Improving Three Impairment Pt SBA for transfers and bed mobility d/t Left Neglect [place] Chopper Goal (LTG) Pt to demonstrate independent transfers and bed mobility with an ability to address left LE and UE 80% of the time LTG Duration Met Two Impairment Pt ambulates 280' CGA /s an AD Short Term Goal (STG) Pt to ambulate 400' SBA independently STG Duration Met [place] Chopper Goal (LTG) Pt to ambulate 800' during 6 MWT Independently without SBA LTG Duration 02/03/21 - Improving (1347' SBA ) One Impairment Pt does not have an appropriate home exercise program Short Term Goal (STG) Pt to be independent and compliant with an appropriate HEP STG Duration Met Assessment Summary Assessment Pt was very fatigued by the end of todays session, pushed himself a little harder during gait and with ball pick-up. Physical Therapy Plan Frequency and Duration Frequency of Treatment 2x/Week Duration of Treatment 3 months Plan of Care Start Date 11/05/20 Plan of Care End Date 02/03/21 Therapeutic Interventions Therapeutic Interventions Aquatic Therapy,Balance Training,Coordination Training ,Gait Training,Home Exercise Program,Manual Therapy, Neuromuscular Re-education, Patient/Caregiver Education, Self-Care/Home Management, Therapeutic Activities, Therapeutic Exercises Modalities Cold Pack/Ice Massage,Electric Stimulation,Hot Packs, Ultrasound Next Visit Focus/Plan Next Note Type Treatment Note Next Visit Plan Continue to challenge, continue strengthening, balance and gait training with NMR. Continue deep water for cardio training and core stabilization. Focus on bilateral knee extension in shallow water gait training
--- NOTE | 2020-12-13 16:01 | PT.OTN ---
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) Physical Therapy Treatment Note PT-OP-A Visit Information Start: 09/17/19 18:00 Freq: Status: Active Protocol: Document 12/13/20 15:15 DCW (Rec: 12/13/20 16:01 DCW [id number]) Out-Patient Physical Therapy Visit Information Visit Information Visit Type Treatment Note Visit Start Time 15:15 Visit Stop Time 16:10 Total Visit Minutes 55 Visit Number 88 Number of PANEL EDGE PAINTER Visits 0 Evaluation Information Evaluation Date 09/17/19 PT-OP-B Current Condition Start: 09/17/19 18:00 Freq: Status: Active Protocol: Document 09/17/19 12:00 DCW (Rec: 09/18/19 10:29 DCW [id number]) Current Condition History of Current Condition Onset Date 04/14/19 Current Complaints Hemiparesis secondary to CVA History of Current Condition Pt is a 69 year old male presenting to skilled outpatient physical therapy with left-side neglect, hemiparesis, loss of independence, and difficulty walking following an intraparenchymal hemorrhage on 04/14/19. Pt was transferred from [facility] to [facility] ([place], [place]), where a craniotomy was performed on 04/16/19. Pt completed 7 weeks of rehab/ recovery at [facility], and then underwent a second surgery on 06/26/19 to replace the skull fragment. Pt was then at an acute rehab facility 06/30-07/18/19, and since then has been receiving home health physical therapy. Pt presents today with limited left-sided function, left visual and physical neglect, difficulty with transfers, decreased activity tolerance, decreased gait, and many other secondary effects following his CVA. Pt has been working on ambulation with a vale walker with home health, and his states he has walked around 100' a few times, but always with a therapist, as she does not feel comfortable walking with him yet. Pt exclusively gets around at time of evaluation in a manual wheelchair. Pt's transfers have been going fairly well, with his caregivers performing CGA, however pt will occasionally need assistance with placement of his left UE and LE due to neglect. Pt's biggest complaint at the moment is leg pain, his reports they have tried PT, Massage, CBD il, Tylenol, Oxycodine, and Gabapentin, all with minimal benefit. Prior to CVA, pt was fully independent in all activities. Pt and have garegivers 8 hrs a day for assistance. Prior Treatments and Tests Craniotomy 04/16/19, Acute rehab, Skull fragment replacement 06/26/19, home health PT Prior Functional Status Baseline Function- ADL's Independent Baseline Function- Mobility Independent PT-OP-C Subjective Start: 09/17/19 18:00 Freq: Status: Active Protocol: Document 12/13/20 15:15 DCW (Rec: 12/13/20 16:01 DCW [id number]) OP-PT Subjective Patient Comments Patient Comments Pt reports overall he is feeling pretty good, I'm still fighting my sinuses, but it seems to be getting better . PT-OP-D Balance Start: 08/04/20 14:14 Freq: Status: Active Protocol: Document 11/05/20 12:00 DCW (Rec: 11/05/20 12:48 DCW [id number]) Balance Tests Adler Balance Test Adler Balance Test Score 44/56 Adler Impairment Rating 20 to 39% Impaired (Score 34- 44) Adler Balance Assessment Evaluation Sitting to Standing Ability Independent w/out Hands Unsupported Stance Safely- 2 minutes Sitting Unsupported, Feet on Floor Safely- 2 minutes Standing to Sitting Ability Safely, Minimal Hand Use Transfer Ability Safely, Minimal Hand Use Unsupported Stance- Eyes Closed Supervision, 10 seconds Unsupported Stance- Eyes Open Supervision to maintain Reaching Forward Standing Safely, 5 inches Pick- Up Object From Floor Independent/Safe Look Behind Shoulder - Standing Shifts Weight Unilateral Turning 360 Degrees Turns slowly, but safely Unsupported Stance, Alternating Feet on 4 Steps w/Supervision Stair Unsupported Tandem Stance Small Step- 30 seconds Unilateral Leg Stance Lifts Leg/Holds > 3 secs Total Score Adler Total Score (out of 56 points) 44 Adler Impairment Rating 20 to 39% Impaired (Score 34- 44) PT-OP-E Functional Tests Start: 05/04/20 15:15 Freq: Status: Active Protocol: Document 11/05/20 12:00 DCW (Rec: 11/05/20 12:48 DCW [id number]) Functional Tests 6 Minute Walk Test Distance 1347' Device Used none Comments 3.74 ft/sec Timed Up and Go (TUG) Score 7.88 seconds Comments 3-trial average (8.16, 7.75, 7 .73) TUG Impairment Rating 0% Impaired (Score 10) PT-OP-G Mobility & Gait Start: 09/17/19 18:00 Freq: Status: Active Protocol: Document 11/05/20 12:00 DCW (Rec: 11/05/20 12:48 DCW [id number]) OP Gait Assessment Gait Gait Assistance Required: Standby Assistance Distance (Feet) 1,347 Assistive Devices Assistive Device None Gait Deviations General Gait Pattern Antalgic,Ataxic,Decreased Feet Clearance,Flexed Trunk, Lateral Trunk Lean Factors Limiting Gait Function Factors Limiting Gait Function Abnormal Tonal Influences, Decreased Activity Tolerance, Decreased Sensation,Decreased Strength,Incoordination,Poor Balance,Poor Safety Awareness PT-OP-H Neuro Start: 09/17/19 18:00 Freq: Status: Active Protocol: Document 11/05/20 12:00 DCW (Rec: 11/05/20 12:48 DCW [id number]) Sensation Evaluation Gross Sensation Gross Sensation Left UE Impaired,Left LE Impaired Sensation Description Paresthesia,Numbness,Pain Location Details Left Leg Light Touch Impaired Sharp/Dull Impaired Deep Pressure Impaired Proprioception (Position) Impaired Kinesthesia (Movement) Impaired Deep Tendon Reflex & Clonus Assessment Deep Tendon Reflex Left Achilles Deep Tendon Reflex 3+ Normal But Brisk Left Patellar Deep Tendon Reflex 3+ Normal But Brisk Ankle Clonus Left Clonus Assessment Sustained Muscle Tone Tone Assessment Left Lower Extremity Flexor Tone Description Mild Hypotonicity PT-OP-M Strength Start: 09/17/19 18:00 Freq: Status: Active Protocol: Document 11/05/20 12:00 DCW (Rec: 11/05/20 12:48 DCW [id number]) Hip Strength Hip Manual Muscle Testing Left Flexion (L2) 4- Good- Extension (S1) 4 Good Abduction 3 Fair Adduction 4 Good External Rotation 3+ Fair+ Internal Rotation 3+ Fair+ Knee Strength Knee Manual Muscle Testing Left Flexion (S2) 4- Good- Extension (L3) 4+ Good+ Ankle/Foot Strength Ankle and Foot Manual Muscle Testing Left Dorsiflexion (L4) 4 Good Plantarflexion (S1) 3+ Fair+ Inversion 3+ Fair+ Eversion (S1) 3 Fair PT-OP-Q Treatments Start: 09/17/19 18:00 Freq: Status: Active Protocol: Document 12/13/20 15:15 DCW (Rec: 12/13/20 16:01 DCW [id number]) Gym Equipment Shuttle Balance Red Details Wide SRIDEVI, Staggered Comments Min Ax1 Therapeutic Exercises Other Exercises Side-stepping Other Exercise Name Side-stepping at rail - CGA Resistance Yellow Equipment Used T-band Comments B UE use Gait Training Gait Activity No AD Description No AD Device Used None Level of Assistance SBA Distance/Duration 950' x1 Comments VCs to promote heel-toe gait, extend left knee during stance phase Neuro Re-Education Treatment Balance Activities Foam Details NBOS (EO/EC) Surface Guillaume foam Cone transfers Details Bending down ball pick-up from cone, kick cone over, ball toss to target PT-OP-R Modalities Start: 09/17/19 18:00 Freq: Status: Active Protocol: Document 12/13/20 15:15 DCW (Rec: 12/13/20 16:01 DCW [id number]) Electric Stimulation Electric Stimulation Interferential Current (IFC) Body Location L ant ankle Duration (Minutes) 15 Patient Position Sitting Combined With Heat/Cold Cold Pack PT-OP-S Aquatic Treatment Start: 09/17/19 18:00 Freq: Status: Active Protocol: Document 01/30/20 12:30 LJ (Rec: 01/30/20 14:54 LJ [id number]) Aquatics Treatment Pool Entry/Exit Pool Entry/Exit Method Lift Assistance Minimal Assistance Water Walking Slow motion Water Level Chest Level Walking Equipment wet vest, UE float, #2.5 ankle wt Level of Assistance Standby Assistance,Contact Guard Assistance,Moderate Assistance Comments emphasis on LLE extension stance phase January Water Level Chest Level Walking Equipment wet vest, UE float, #2.5 ankle wt Level of Assistance Standby Assistance,Contact Guard Assistance,Moderate Assistance,Verbal Cues Forward with emphasis on reciprocal gait pattern Water Level Chest Level Level of Assistance Standby Assistance,Contact Guard Assistance,Minimal Assistance,Verbal Cues Comments wetvest, sm float on LUE, #3. 75 ankle wt on LLE start stop walking forward and backward Water Level Chest Level Walking Equipment vest Level of Assistance Contact Guard Assistance, Verbal Cues Comments wetvest, sm float on LUE, #3. 75 ankle wt on LLE Sideways Water Level Chest Level Walking Equipment wet vest, UE float, #2.5 ankle wt Level of Assistance Standby Assistance,Contact Guard Assistance,Minimal Assistance,Verbal Cues Lower Extremity Exercises SL aquats Details HH on wall Body Position Standing Water Level Waist Level Equipment wetvest Reps/Duration 2x10 LLE Comments VC to extend knee knee extensions Details seated in lift chair Equipment Ankle Weight- 5.0# Reps/Duration 20 B Comments seated in lift SLS Details bracing LLE Body Position Standing Water Level Chest Level Equipment vest Reps/Duration 1 min marching at wall Water Level Chest Level Reps/Duration 2 min Comments opposite UE/LE tapping wall squats Body Position Standing Water Level Chest Level Reps/Duration 20x Lower Extremity Stretches adductors Comments seated in chair Gastroc Body Position Sitting Reps/Duration 2 x 45 sec B Comments manual assist hip flexors Details at wall Body Position Standing Water Level Waist Level Reps/Duration 2x45 Comments manually assisted HS Details at wall Body Position Sitting Water Level Waist Level Equipment wet vest Reps/Duration 2x45 Comments sitting in lift chair assisted Upper Extremity Exercises breastroke UE's Body Position Standing Water Level Chest Level Reps/Duration 3 min Comments during walking and deep water hor ab/ad Water Level Chest Level Comments during side walking, CGA Balance step ups Details step ups/down using boxes Body Position Standing Water Level Waist Level Equipment 8 boxes Comments mod verbal cues for coordination [place] Activities [place] Activities Bicycle,Cross Country Equipment wet vest, white noodle Duration 7 min Comments Guy and cues for vertical alignmernt. PT-OP-T Assessment and Plan Start: 09/17/19 18:00 Freq: Status: Active Protocol: Document 12/13/20 15:15 DCW (Rec: 12/13/20 16:01 DCW [id number]) Physical Therapy Assessment Impairments Impairments Activity Tolerance,Balance, Coordination,Functional Activities,Functional Mobility ,Gait,Pain,ROM,Sensation, Strength,Tone,Transfers Goals Six Impairment Decreased Static Balance Short Term Goal (STG) Pt to score <9 seconds on TUG STG Duration Met Chcf Goal (LTG) MET - Pt to score 35/56 or better on the Adler Balance NEW GOAL - Pt to score 45/56 or better on the Adler Balance Scale LTG Duration 02/03/21 - Improvin/56 Five Impairment Pt uses R rail and step-over gait pattern ascending stairs Chcf Goal (LTG) Pt to ascend/descend stairs independently without use of rail LTG Duration 02/03/21 - Improving Four Impairment Pt demonstrates strength impairment throughout left LE Day Care Provider Goal (LTG) Pt to display MMT >3+/5 through L LE LTG Duration 02/03/21 - Improving Three Impairment Pt SBA for transfers and bed mobility d/t Left Neglect Day Care Provider Goal (LTG) Pt to demonstrate independent transfers and bed mobility with an ability to address left LE and UE 80% of the time LTG Duration Met Two Impairment Pt ambulates 280' CGA /s an AD Short Term Goal (STG) Pt to ambulate 400' SBA independently STG Duration Met Chcf Goal (LTG) Pt to ambulate 800' during 6 MWT Independently without SBA LTG Duration 02/03/21 - Improving (1347' SBA ) One Impairment Pt does not have an appropriate home exercise program Short Term Goal (STG) Pt to be independent and compliant with an appropriate HEP STG Duration Met Assessment Summary Assessment Pt did well today, no complaints of fatigue or weakness, did notice some heavy breathing following ambulation. Physical Therapy Plan Frequency and Duration Frequency of Treatment 2x/Week Duration of Treatment 3 months Plan of Care Start Date 11/05/20 Plan of Care End Date 02/03/21 Therapeutic Interventions Therapeutic Interventions Aquatic Therapy,Balance Training,Coordination Training ,Gait Training,Home Exercise Program,Manual Therapy, Neuromuscular Re-education, Patient/Caregiver Education, Self-Care/Home Management, Therapeutic Activities, Therapeutic Exercises Modalities Cold Pack/Ice Massage,Electric Stimulation,Hot Packs, Ultrasound Next Visit Focus/Plan Next Note Type Treatment Note Next Visit Plan Continue to challenge, continue strengthening, balance and gait training with NMR. Continue deep water for cardio training and core stabilization. Focus on bilateral knee extension in shallow water gait training
--- NOTE | 2020-12-23 11:18 | PT.OTN ---
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) Physical Therapy Treatment Note PT-OP-A Visit Information Start: 09/17/19 18:00 Freq: Status: Active Protocol: Document 12/23/20 10:34 DCW (Rec: 12/23/20 11:18 DCW [id number]) Out-Patient Physical Therapy Visit Information Visit Information Visit Type Treatment Note Visit Start Time 10:34 Visit Stop Time 11:25 Total Visit Minutes 51 Visit Number 89 Number of CHEMICAL PROCESSING SUPERVISOR Visits 0 Evaluation Information Evaluation Date 09/17/19 PT-OP-B Current Condition Start: 09/17/19 18:00 Freq: Status: Active Protocol: Document 09/17/19 12:00 DCW (Rec: 09/18/19 10:29 DCW [id number]) Current Condition History of Current Condition Onset Date 04/14/19 Current Complaints Hemiparesis secondary to CVA History of Current Condition Pt is a 69 year old male presenting to skilled outpatient physical therapy with left-side neglect, hemiparesis, loss of independence, and difficulty walking following an intraparenchymal hemorrhage on 04/14/19. Pt was transferred from [facility] to [facility], where a craniotomy was performed on 04/16/19. Pt completed 7 weeks of rehab/ recovery at [facility], and then underwent a second surgery on 06/26/19 to replace the skull fragment. Pt was then at an acute rehab facility 06/30-07/18/19, and since then has been receiving home health physical therapy. Pt presents today with limited left-sided function, left visual and physical neglect, difficulty with transfers, decreased activity tolerance, decreased gait, and many other secondary effects following his CVA. Pt has been working on ambulation with a vale walker with home health, and his states he has walked around 100' a few times, but always with a therapist, as she does not feel comfortable walking with him yet. Pt exclusively gets around at time of evaluation in a manual wheelchair. Pt's transfers have been going fairly well, with his caregivers performing CGA, however pt will occasionally need assistance with placement of his left UE and LE due to neglect. Pt's biggest complaint at the moment is leg pain, his reports they have tried PT, Massage, CBD il, Tylenol, Oxycodine, and Gabapentin, all with minimal benefit. Prior to CVA, pt was fully independent in all activities. Pt and have garegivers 8 hrs a day for assistance. Prior Treatments and Tests Craniotomy 04/16/19, Acute rehab, Skull fragment replacement 06/26/19, home health PT Prior Functional Status Baseline Function- ADL's Independent Baseline Function- Mobility Independent PT-OP-C Subjective Start: 09/17/19 18:00 Freq: Status: Active Protocol: Document 12/23/20 10:34 DCW (Rec: 12/23/20 11:18 DCW [id number]) OP-PT Subjective Patient Comments Patient Comments I'm okay. I'm getting more nerve pain in my foot after walking recently. PT-OP-D Balance Start: 08/04/20 14:14 Freq: Status: Active Protocol: Document 11/05/20 12:00 DCW (Rec: 11/05/20 12:48 DCW [id number]) Balance Tests Adler Balance Test Adler Balance Test Score 44/56 Adler Impairment Rating 20 to 39% Impaired (Score 34- 44) Adler Balance Assessment Evaluation Sitting to Standing Ability Independent w/out Hands Unsupported Stance Safely- 2 minutes Sitting Unsupported, Feet on Floor Safely- 2 minutes Standing to Sitting Ability Safely, Minimal Hand Use Transfer Ability Safely, Minimal Hand Use Unsupported Stance- Eyes Closed Supervision, 10 seconds Unsupported Stance- Eyes Open Supervision to maintain Reaching Forward Standing Safely, 5 inches Pick- Up Object From Floor Independent/Safe Look Behind Shoulder - Standing Shifts Weight Unilateral Turning 360 Degrees Turns slowly, but safely Unsupported Stance, Alternating Feet on 4 Steps w/Supervision Stair Unsupported Tandem Stance Small Step- 30 seconds Unilateral Leg Stance Lifts Leg/Holds > 3 secs Total Score Adler Total Score (out of 56 points) 44 Adler Impairment Rating 20 to 39% Impaired (Score 34- 44) PT-OP-E Functional Tests Start: 05/04/20 15:15 Freq: Status: Active Protocol: Document 11/05/20 12:00 DCW (Rec: 11/05/20 12:48 DCW [id number]) Functional Tests 6 Minute Walk Test Distance 1347' Device Used none Comments 3.74 ft/sec Timed Up and Go (TUG) Score 7.88 seconds Comments 3-trial average (8.16, 7.75, 7 .73) TUG Impairment Rating 0% Impaired (Score 10) PT-OP-G Mobility & Gait Start: 09/17/19 18:00 Freq: Status: Active Protocol: Document 11/05/20 12:00 DCW (Rec: 11/05/20 12:48 DCW [id number]) OP Gait Assessment Gait Gait Assistance Required: Standby Assistance Distance (Feet) 1,347 Assistive Devices Assistive Device None Gait Deviations General Gait Pattern Antalgic,Ataxic,Decreased Feet Clearance,Flexed Trunk, Lateral Trunk Lean Factors Limiting Gait Function Factors Limiting Gait Function Abnormal Tonal Influences, Decreased Activity Tolerance, Decreased Sensation,Decreased Strength,Incoordination,Poor Balance,Poor Safety Awareness PT-OP-H Neuro Start: 09/17/19 18:00 Freq: Status: Active Protocol: Document 11/05/20 12:00 DCW (Rec: 11/05/20 12:48 DCW [id number]) Sensation Evaluation Gross Sensation Gross Sensation Left UE Impaired,Left LE Impaired Sensation Description Paresthesia,Numbness,Pain Location Details Left Leg Light Touch Impaired Sharp/Dull Impaired Deep Pressure Impaired Proprioception (Position) Impaired Kinesthesia (Movement) Impaired Deep Tendon Reflex & Clonus Assessment Deep Tendon Reflex Left Achilles Deep Tendon Reflex 3+ Normal But Brisk Left Patellar Deep Tendon Reflex 3+ Normal But Brisk Ankle Clonus Left Clonus Assessment Sustained Muscle Tone Tone Assessment Left Lower Extremity Flexor Tone Description Mild Hypotonicity PT-OP-M Strength Start: 09/17/19 18:00 Freq: Status: Active Protocol: Document 11/05/20 12:00 DCW (Rec: 11/05/20 12:48 DCW [id number]) Hip Strength Hip Manual Muscle Testing Left Flexion (L2) 4- Good- Extension (S1) 4 Good Abduction 3 Fair Adduction 4 Good External Rotation 3+ Fair+ Internal Rotation 3+ Fair+ Knee Strength Knee Manual Muscle Testing Left Flexion (S2) 4- Good- Extension (L3) 4+ Good+ Ankle/Foot Strength Ankle and Foot Manual Muscle Testing Left Dorsiflexion (L4) 4 Good Plantarflexion (S1) 3+ Fair+ Inversion 3+ Fair+ Eversion (S1) 3 Fair PT-OP-Q Treatments Start: 09/17/19 18:00 Freq: Status: Active Protocol: Document 12/23/20 10:34 DCW (Rec: 12/23/20 11:18 DCW [id number]) Gym Equipment Shuttle Recovery Unilateral Heel Raises Details Left Resistance 25# Reps/Time calf stretch at end Unilateral Squats Details Left Resistance 62# Shuttle Recovery Platform Stable Bilateral Squats Resistance 100# Shuttle Recovery Platform Stable Shuttle Balance Red Details Wide SRIDEVI, Staggered Comments Min Ax1 Gait Training Gait Activity No AD Description No AD Device Used None Level of Assistance SBA Distance/Duration 950' x1 Comments VCs to promote heel-toe gait, extend left knee during stance phase Neuro Re-Education Treatment Balance Activities Cone transfers Details Bending down ball pick-up from cone, kick cone over, ball toss to target PT-OP-R Modalities Start: 09/17/19 18:00 Freq: Status: Active Protocol: Document 12/23/20 10:34 DCW (Rec: 12/23/20 11:18 DCW [id number]) Electric Stimulation Electric Stimulation Interferential Current (IFC) Body Location L ant ankle Duration (Minutes) 15 Patient Position Sitting Combined With Heat/Cold Cold Pack PT-OP-S Aquatic Treatment Start: 09/17/19 18:00 Freq: Status: Active Protocol: Document 01/30/20 12:30 LJ (Rec: 01/30/20 14:54 LJ [id number]) Aquatics Treatment Pool Entry/Exit Pool Entry/Exit Method Lift Assistance Minimal Assistance Water Walking Slow motion Water Level Chest Level Walking Equipment wet vest, UE float, #2.5 ankle wt Level of Assistance Standby Assistance,Contact Guard Assistance,Moderate Assistance Comments emphasis on LLE extension stance phase January Water Level Chest Level Walking Equipment wet vest, UE float, #2.5 ankle wt Level of Assistance Standby Assistance,Contact Guard Assistance,Moderate Assistance,Verbal Cues Forward with emphasis on reciprocal gait pattern Water Level Chest Level Level of Assistance Standby Assistance,Contact Guard Assistance,Minimal Assistance,Verbal Cues Comments wetvest, sm float on LUE, #3. 75 ankle wt on LLE start stop walking forward and backward Water Level Chest Level Walking Equipment vest Level of Assistance Contact Guard Assistance, Verbal Cues Comments wetvest, sm float on LUE, #3. 75 ankle wt on LLE Sideways Water Level Chest Level Walking Equipment wet vest, UE float, #2.5 ankle wt Level of Assistance Standby Assistance,Contact Guard Assistance,Minimal Assistance,Verbal Cues Lower Extremity Exercises SL aquats Details HH on wall Body Position Standing Water Level Waist Level Equipment wetvest Reps/Duration 2x10 LLE Comments VC to extend knee knee extensions Details seated in lift chair Equipment Ankle Weight- 5.0# Reps/Duration 20 B Comments seated in lift SLS Details bracing LLE Body Position Standing Water Level Chest Level Equipment vest Reps/Duration 1 min marching at wall Water Level Chest Level Reps/Duration 2 min Comments opposite UE/LE tapping wall squats Body Position Standing Water Level Chest Level Reps/Duration 20x Lower Extremity Stretches adductors Comments seated in chair Gastroc Body Position Sitting Reps/Duration 2 x 45 sec B Comments manual assist hip flexors Details at wall Body Position Standing Water Level Waist Level Reps/Duration 2x45 Comments manually assisted HS Details at wall Body Position Sitting Water Level Waist Level Equipment wet vest Reps/Duration 2x45 Comments sitting in lift chair assisted Upper Extremity Exercises breastroke UE's Body Position Standing Water Level Chest Level Reps/Duration 3 min Comments during walking and deep water hor ab/ad Water Level Chest Level Comments during side walking, CGA Balance step ups Details step ups/down using boxes Body Position Standing Water Level Waist Level Equipment 8 boxes Comments mod verbal cues for coordination [place] Activities [place] Activities Bicycle,Cross Country Equipment wet vest, white noodle Duration 7 min Comments Guy and cues for vertical alignmernt. PT-OP-T Assessment and Plan Start: 09/17/19 18:00 Freq: Status: Active Protocol: Document 12/23/20 10:34 DCW (Rec: 12/23/20 11:18 DCW [id number]) Physical Therapy Assessment Impairments Impairments Activity Tolerance,Balance, Coordination,Functional Activities,Functional Mobility ,Gait,Pain,ROM,Sensation, Strength,Tone,Transfers Goals Six Impairment Decreased Static Balance Short Term Goal (STG) Pt to score <9 seconds on TUG STG Duration Met Longterm Goal (LTG) MET - Pt to score 35/56 or better on the Adler Balance NEW GOAL - Pt to score 45/56 or better on the Adler Balance Scale LTG Duration 02/03/21 - Improvin/56 Five Impairment Pt uses R rail and step-over gait pattern ascending stairs Cold Type Artist Goal (LTG) Pt to ascend/descend stairs independently without use of rail LTG Duration 02/03/21 - Improving Four Impairment Pt demonstrates strength impairment throughout left LE Longterm Goal (LTG) Pt to display MMT >3+/5 through L LE LTG Duration 02/03/21 - Improving Three Impairment Pt SBA for transfers and bed mobility d/t Left Neglect Cold Type Artist Goal (LTG) Pt to demonstrate independent transfers and bed mobility with an ability to address left LE and UE 80% of the time LTG Duration Met Two Impairment Pt ambulates 280' CGA /s an AD Short Term Goal (STG) Pt to ambulate 400' SBA independently STG Duration Met Longterm Goal (LTG) Pt to ambulate 800' during 6 MWT Independently without SBA LTG Duration 02/03/21 - Improving (1347' SBA ) One Impairment Pt does not have an appropriate home exercise program Short Term Goal (STG) Pt to be independent and compliant with an appropriate HEP STG Duration Met Assessment Summary Assessment Pt slightly more fatigued today, requiring a bit longer rest breaks, but overall showing some good progress with increased independence with gait. Physical Therapy Plan Frequency and Duration Frequency of Treatment 2x/Week Duration of Treatment 3 months Plan of Care Start Date 11/05/20 Plan of Care End Date 02/03/21 Therapeutic Interventions Therapeutic Interventions Aquatic Therapy,Balance Training,Coordination Training ,Gait Training,Home Exercise Program,Manual Therapy, Neuromuscular Re-education, Patient/Caregiver Education, Self-Care/Home Management, Therapeutic Activities, Therapeutic Exercises Modalities Cold Pack/Ice Massage,Electric Stimulation,Hot Packs, Ultrasound Next Visit Focus/Plan Next Note Type Treatment Note Next Visit Plan Continue to challenge, continue strengthening, balance and gait training with NMR. Continue deep water for cardio training and core stabilization. Focus on bilateral knee extension in shallow water gait training
--- NOTE | 2020-12-27 11:58 | PT.OTN ---
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) Physical Therapy Treatment Note PT-OP-A Visit Information Start: 09/17/19 18:00 Freq: Status: Active Protocol: Document 12/27/20 11:17 DCW (Rec: 12/27/20 11:58 DCW [id number]) Out-Patient Physical Therapy Visit Information Visit Information Visit Type Treatment Note Visit Start Time 11:17 Visit Stop Time 12:10 Total Visit Minutes 53 Visit Number 90 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 Pt was transferred from [facility] to [facility], where a craniotomy was performed on 04/16/19. Pt completed 7 weeks of rehab/ recovery at [facility], and then underwent a second surgery on 06/26/19 to replace the skull fragment. Pt was then at an acute rehab facility 06/30-07/18/19, and since then has been receiving home health physical therapy. Pt presents today with limited left-sided function, left visual and physical neglect, difficulty with transfers, decreased activity tolerance, decreased gait, and many other secondary effects following his CVA. Pt has been working on ambulation with a vale walker with home health, and his states he has walked around 100' a few times, but always with a therapist, as she does not feel comfortable walking with him yet. Pt exclusively gets around at time of evaluation in a manual wheelchair. Pt's transfers have been going fairly well, with his caregivers performing CGA, however pt will occasionally need assistance with placement of his left UE and LE due to neglect. Pt's biggest complaint at the moment is leg pain, his reports they have tried PT, Massage, CBD il, Tylenol, Oxycodine, and Gabapentin, all with minimal benefit. Prior to CVA, pt was fully independent in all activities. Pt and have garegivers 8 hrs a day for assistance. Prior Treatments and Tests Craniotomy 04/16/19, Acute rehab, Skull fragment replacement 06/26/19, home health PT Prior Functional Status Baseline Function- ADL's Independent Baseline Function- Mobility Independent PT-OP-C Subjective Start: 09/17/19 18:00 Freq: Status: Active Protocol: Document 12/27/20 11:17 DCW (Rec: 12/27/20 11:58 DCW [id number]) OP-PT Subjective Patient Comments Patient Comments Pt reports recent increase in right calf cramping, especially during the night. PT-OP-D Balance Start: 08/04/20 14:14 Freq: Status: Active Protocol: Document 11/05/20 12:00 DCW (Rec: 11/05/20 12:48 DCW [id number]) Balance Tests Adler Balance Test Adler Balance Test Score 44/56 Adler Impairment Rating 20 to 39% Impaired (Score 34- 44) Adler Balance Assessment Evaluation Sitting to Standing Ability Independent w/out Hands Unsupported Stance Safely- 2 minutes Sitting Unsupported, Feet on Floor Safely- 2 minutes Standing to Sitting Ability Safely, Minimal Hand Use Transfer Ability Safely, Minimal Hand Use Unsupported Stance- Eyes Closed Supervision, 10 seconds Unsupported Stance- Eyes Open Supervision to maintain Reaching Forward Standing Safely, 5 inches Pick- Up Object From Floor Independent/Safe Look Behind Shoulder - Standing Shifts Weight Unilateral Turning 360 Degrees Turns slowly, but safely Unsupported Stance, Alternating Feet on 4 Steps w/Supervision Stair Unsupported Tandem Stance Small Step- 30 seconds Unilateral Leg Stance Lifts Leg/Holds > 3 secs Total Score Adler Total Score (out of 56 points) 44 Adler Impairment Rating 20 to 39% Impaired (Score 34- 44) PT-OP-E Functional Tests Start: 05/04/20 15:15 Freq: Status: Active Protocol: Document 11/05/20 12:00 DCW (Rec: 11/05/20 12:48 DCW [id number]) Functional Tests 6 Minute Walk Test Distance 1347' Device Used none Comments 3.74 ft/sec Timed Up and Go (TUG) Score 7.88 seconds Comments 3-trial average (8.16, 7.75, 7 .73) TUG Impairment Rating 0% Impaired (Score 10) PT-OP-G Mobility & Gait Start: 09/17/19 18:00 Freq: Status: Active Protocol: Document 11/05/20 12:00 DCW (Rec: 11/05/20 12:48 DCW [id number]) OP Gait Assessment Gait Gait Assistance Required: Standby Assistance Distance (Feet) 1,347 Assistive Devices Assistive Device None Gait Deviations General Gait Pattern Antalgic,Ataxic,Decreased Feet Clearance,Flexed Trunk, Lateral Trunk Lean Factors Limiting Gait Function Factors Limiting Gait Function Abnormal Tonal Influences, Decreased Activity Tolerance, Decreased Sensation,Decreased Strength,Incoordination,Poor Balance,Poor Safety Awareness PT-OP-H Neuro Start: 09/17/19 18:00 Freq: Status: Active Protocol: Document 11/05/20 12:00 DCW (Rec: 11/05/20 12:48 DCW [id number]) Sensation Evaluation Gross Sensation Gross Sensation Left UE Impaired,Left LE Impaired Sensation Description Paresthesia,Numbness,Pain Location Details Left Leg Light Touch Impaired Sharp/Dull Impaired Deep Pressure Impaired Proprioception (Position) Impaired Kinesthesia (Movement) Impaired Deep Tendon Reflex & Clonus Assessment Deep Tendon Reflex Left Achilles Deep Tendon Reflex 3+ Normal But Brisk Left Patellar Deep Tendon Reflex 3+ Normal But Brisk Ankle Clonus Left Clonus Assessment Sustained Muscle Tone Tone Assessment Left Lower Extremity Flexor Tone Description Mild Hypotonicity PT-OP-M Strength Start: 09/17/19 18:00 Freq: Status: Active Protocol: Document 11/05/20 12:00 DCW (Rec: 11/05/20 12:48 DCW [id number]) Hip Strength Hip Manual Muscle Testing Left Flexion (L2) 4- Good- Extension (S1) 4 Good Abduction 3 Fair Adduction 4 Good External Rotation 3+ Fair+ Internal Rotation 3+ Fair+ Knee Strength Knee Manual Muscle Testing Left Flexion (S2) 4- Good- Extension (L3) 4+ Good+ Ankle/Foot Strength Ankle and Foot Manual Muscle Testing Left Dorsiflexion (L4) 4 Good Plantarflexion (S1) 3+ Fair+ Inversion 3+ Fair+ Eversion (S1) 3 Fair PT-OP-Q Treatments Start: 09/17/19 18:00 Freq: Status: Active Protocol: Document 12/27/20 11:17 DCW (Rec: 12/27/20 11:58 DCW [id number]) Gym Equipment Shuttle Balance Red Details Wide SRIDEVI, Staggered Comments Min Ax1 Therapeutic Exercises Sitting Exercises Gastroc Stretch Sitting Exercise Name Gastroc Stretch Side bilateral Equipment Used Belt Other Exercises Side-stepping Other Exercise Name Side-stepping at rail - CGA Resistance Yellow Equipment Used T-band Comments B UE use Gait Training Gait Activity No AD Description No AD Device Used None Level of Assistance SBA Distance/Duration 980' x1 Comments VCs to promote heel-toe gait, extend left knee during stance phase Neuro Re-Education Treatment Balance Activities Cone transfers Details Bending down ball pick-up from cone, kick cone over, ball toss to target PT-OP-R Modalities Start: 09/17/19 18:00 Freq: Status: Active Protocol: Document 12/27/20 11:17 DCW (Rec: 12/27/20 11:58 DCW [id number]) Electric Stimulation Electric Stimulation Interferential Current (IFC) Body Location L ant ankle Duration (Minutes) 15 Patient Position Sitting Combined With Heat/Cold Cold Pack PT-OP-S Aquatic Treatment Start: 09/17/19 18:00 Freq: Status: Active Protocol: Document 01/30/20 12:30 LJ (Rec: 01/30/20 14:54 LJ [id number]) Aquatics Treatment Pool Entry/Exit Pool Entry/Exit Method Lift Assistance Minimal Assistance Water Walking Slow motion Water Level Chest Level Walking Equipment wet vest, UE float, #2.5 ankle wt Level of Assistance Standby Assistance,Contact Guard Assistance,Moderate Assistance Comments emphasis on LLE extension stance phase January Water Level Chest Level Walking Equipment wet vest, UE float, #2.5 ankle wt Level of Assistance Standby Assistance,Contact Guard Assistance,Moderate Assistance,Verbal Cues Forward with emphasis on reciprocal gait pattern Water Level Chest Level Level of Assistance Standby Assistance,Contact Guard Assistance,Minimal Assistance,Verbal Cues Comments wetvest, sm float on LUE, #3. 75 ankle wt on LLE start stop walking forward and backward Water Level Chest Level Walking Equipment vest Level of Assistance Contact Guard Assistance, Verbal Cues Comments wetvest, sm float on LUE, #3. 75 ankle wt on LLE Sideways Water Level Chest Level Walking Equipment wet vest, UE float, #2.5 ankle wt Level of Assistance Standby Assistance,Contact Guard Assistance,Minimal Assistance,Verbal Cues Lower Extremity Exercises SL aquats Details HH on wall Body Position Standing Water Level Waist Level Equipment wetvest Reps/Duration 2x10 LLE Comments VC to extend knee knee extensions Details seated in lift chair Equipment Ankle Weight- 5.0# Reps/Duration 20 B Comments seated in lift SLS Details bracing LLE Body Position Standing Water Level Chest Level Equipment vest Reps/Duration 1 min marching at wall Water Level Chest Level Reps/Duration 2 min Comments opposite UE/LE tapping wall squats Body Position Standing Water Level Chest Level Reps/Duration 20x Lower Extremity Stretches adductors Comments seated in chair Gastroc Body Position Sitting Reps/Duration 2 x 45 sec B Comments manual assist hip flexors Details at wall Body Position Standing Water Level Waist Level Reps/Duration 2x45 Comments manually assisted HS Details at wall Body Position Sitting Water Level Waist Level Equipment wet vest Reps/Duration 2x45 Comments sitting in lift chair assisted Upper Extremity Exercises breastroke UE's Body Position Standing Water Level Chest Level Reps/Duration 3 min Comments during walking and deep water hor ab/ad Water Level Chest Level Comments during side walking, CGA Balance step ups Details step ups/down using boxes Body Position Standing Water Level Waist Level Equipment 8 boxes Comments mod verbal cues for coordination Johnston Activities Johnston Activities Bicycle,Cross Country Equipment wet vest, white noodle Duration 7 min Comments Guy and cues for vertical alignmernt. PT-OP-T Assessment and Plan Start: 09/17/19 18:00 Freq: Status: Active Protocol: Document 12/27/20 11:17 DCW (Rec: 12/27/20 11:58 DCW [id number]) Physical Therapy Assessment Impairments Impairments Activity Tolerance,Balance, Coordination,Functional Activities,Functional Mobility ,Gait,Pain,ROM,Sensation, Strength,Tone,Transfers Goals Six Impairment Decreased Static Balance Short Term Goal (STG) Pt to score <9 seconds on TUG STG Duration Met Jail Goal (LTG) MET - Pt to score 35/56 or better on the Adler Balance NEW GOAL - Pt to score 45/56 or better on the Adler Balance Scale LTG Duration 02/03/21 - Improvin/56 Five Impairment Pt uses R rail and step-over gait pattern ascending stairs Jail Goal (LTG) Pt to ascend/descend stairs independently without use of rail LTG Duration 02/03/21 - Improving Four Impairment Pt demonstrates strength impairment throughout left LE Livestock Trucker Goal (LTG) Pt to display MMT >3+/5 through L LE LTG Duration 02/03/21 - Improving Three Impairment Pt SBA for transfers and bed mobility d/t Left Neglect Jail Goal (LTG) Pt to demonstrate independent transfers and bed mobility with an ability to address left LE and UE 80% of the time LTG Duration Met Two Impairment Pt ambulates 280' CGA /s an AD Short Term Goal (STG) Pt to ambulate 400' SBA independently STG Duration Met Livestock Trucker Goal (LTG) Pt to ambulate 800' during 6 MWT Independently without SBA LTG Duration 02/03/21 - Improving (1347' SBA ) One Impairment Pt does not have an appropriate home exercise program Short Term Goal (STG) Pt to be independent and compliant with an appropriate HEP STG Duration Met Assessment Summary Assessment Pt did well today, improved tolerance during gait with less heavy breathing. Pt performed resisted side stepping with fewer required verbal cues. Physical Therapy Plan Frequency and Duration Frequency of Treatment 2x/Week Duration of Treatment 3 months Plan of Care Start Date 11/05/20 Plan of Care End Date 02/03/21 Therapeutic Interventions Therapeutic Interventions Aquatic Therapy,Balance Training,Coordination Training ,Gait Training,Home Exercise Program,Manual Therapy, Neuromuscular Re-education, Patient/Caregiver Education, Self-Care/Home Management, Therapeutic Activities, Therapeutic Exercises Modalities Cold Pack/Ice Massage,Electric Stimulation,Hot Packs, Ultrasound Next Visit Focus/Plan Next Note Type Treatment Note Next Visit Plan Continue to challenge, continue strengthening, balance and gait training with NMR. Continue deep water for cardio training and core stabilization. Focus on bilateral knee extension in shallow water gait training
--- NOTE | 2020-12-30 12:03 | PT.OTN ---
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) Physical Therapy Treatment Note PT-OP-A Visit Information Start: 09/17/19 18:00 Freq: Status: Active Protocol: Document 12/30/20 11:15 DCW (Rec: 12/30/20 12:03 DCW [id number]) Out-Patient Physical Therapy Visit Information Visit Information Visit Type Treatment Note Visit Start Time 11:15 Visit Stop Time 12:10 Total Visit Minutes 55 Visit Number 91 Number of [employer]GER Visits 0 Evaluation Information Evaluation Date 09/17/19 PT-OP-B Current Condition Start: 09/17/19 18:00 Freq: Status: Active Protocol: Document 09/17/19 12:00 DCW (Rec: 09/18/19 10:29 DCW [id number]) Current Condition History of Current Condition Onset Date 04/14/19 Current Complaints Hemiparesis secondary to CVA History of Current Condition Pt is a 69 year old male presenting to skilled outpatient physical therapy with left-side neglect, hemiparesis, loss of independence, and difficulty walking following an intraparenchymal hemorrhage on 04/14/19. Pt was transferred from [facility] to [facility], where a craniotomy was performed on 04/16/19. Pt completed 7 weeks of rehab/ recovery at [facility], and then underwent a second surgery on 06/26/19 to replace the skull fragment. Pt was then at an acute rehab facility 06/30-07/18/19, and since then has been receiving home health physical therapy. Pt presents today with limited left-sided function, left visual and physical neglect, difficulty with transfers, decreased activity tolerance, decreased gait, and many other secondary effects following his CVA. Pt has been working on ambulation with a vale walker with home health, and his states he has walked around 100' a few times, but always with a therapist, as she does not feel comfortable walking with him yet. Pt exclusively gets around at time of evaluation in a manual wheelchair. Pt's transfers have been going fairly well, with his caregivers performing CGA, however pt will occasionally need assistance with placement of his left UE and LE due to neglect. Pt's biggest complaint at the moment is leg pain, his reports they have tried PT, Massage, CBD il, Tylenol, Oxycodine, and Gabapentin, all with minimal benefit. Prior to CVA, pt was fully independent in all activities. Pt and have garegivers 8 hrs a day for assistance. Prior Treatments and Tests Craniotomy 04/16/19, Acute rehab, Skull fragment replacement 06/26/19, home health PT Prior Functional Status Baseline Function- ADL's Independent Baseline Function- Mobility Independent PT-OP-C Subjective Start: 09/17/19 18:00 Freq: Status: Active Protocol: Document 12/30/20 11:15 DCW (Rec: 12/30/20 12:03 DCW [id number]) OP-PT Subjective Patient Comments Patient Comments Pt notes he has a zoom appointment with his neurologist later today. PT-OP-D Balance Start: 08/04/20 14:14 Freq: Status: Active Protocol: Document 11/05/20 12:00 DCW (Rec: 11/05/20 12:48 DCW [id number]) Balance Tests Adler Balance Test Adler Balance Test Score 44/56 Adler Impairment Rating 20 to 39% Impaired (Score 34- 44) Adler Balance Assessment Evaluation Sitting to Standing Ability Independent w/out Hands Unsupported Stance Safely- 2 minutes Sitting Unsupported, Feet on Floor Safely- 2 minutes Standing to Sitting Ability Safely, Minimal Hand Use Transfer Ability Safely, Minimal Hand Use Unsupported Stance- Eyes Closed Supervision, 10 seconds Unsupported Stance- Eyes Open Supervision to maintain Reaching Forward Standing Safely, 5 inches Pick- Up Object From Floor Independent/Safe Look Behind Shoulder - Standing Shifts Weight Unilateral Turning 360 Degrees Turns slowly, but safely Unsupported Stance, Alternating Feet on 4 Steps w/Supervision Stair Unsupported Tandem Stance Small Step- 30 seconds Unilateral Leg Stance Lifts Leg/Holds > 3 secs Total Score Adler Total Score (out of 56 points) 44 Adler Impairment Rating 20 to 39% Impaired (Score 34- 44) PT-OP-E Functional Tests Start: 05/04/20 15:15 Freq: Status: Active Protocol: Document 11/05/20 12:00 DCW (Rec: 11/05/20 12:48 DCW [id number]) Functional Tests 6 Minute Walk Test Distance 1347' Device Used none Comments 3.74 ft/sec Timed Up and Go (TUG) Score 7.88 seconds Comments 3-trial average (8.16, 7.75, 7 .73) TUG Impairment Rating 0% Impaired (Score 10) PT-OP-G Mobility & Gait Start: 09/17/19 18:00 Freq: Status: Active Protocol: Document 11/05/20 12:00 DCW (Rec: 11/05/20 12:48 DCW [id number]) OP Gait Assessment Gait Gait Assistance Required: Standby Assistance Distance (Feet) 1,347 Assistive Devices Assistive Device None Gait Deviations General Gait Pattern Antalgic,Ataxic,Decreased Feet Clearance,Flexed Trunk, Lateral Trunk Lean Factors Limiting Gait Function Factors Limiting Gait Function Abnormal Tonal Influences, Decreased Activity Tolerance, Decreased Sensation,Decreased Strength,Incoordination,Poor Balance,Poor Safety Awareness PT-OP-H Neuro Start: 09/17/19 18:00 Freq: Status: Active Protocol: Document 11/05/20 12:00 DCW (Rec: 11/05/20 12:48 DCW [id number]) Sensation Evaluation Gross Sensation Gross Sensation Left UE Impaired,Left LE Impaired Sensation Description Paresthesia,Numbness,Pain Location Details Left Leg Light Touch Impaired Sharp/Dull Impaired Deep Pressure Impaired Proprioception (Position) Impaired Kinesthesia (Movement) Impaired Deep Tendon Reflex & Clonus Assessment Deep Tendon Reflex Left Achilles Deep Tendon Reflex 3+ Normal But Brisk Left Patellar Deep Tendon Reflex 3+ Normal But Brisk Ankle Clonus Left Clonus Assessment Sustained Muscle Tone Tone Assessment Left Lower Extremity Flexor Tone Description Mild Hypotonicity PT-OP-M Strength Start: 09/17/19 18:00 Freq: Status: Active Protocol: Document 11/05/20 12:00 DCW (Rec: 11/05/20 12:48 DCW [id number]) Hip Strength Hip Manual Muscle Testing Left Flexion (L2) 4- Good- Extension (S1) 4 Good Abduction 3 Fair Adduction 4 Good External Rotation 3+ Fair+ Internal Rotation 3+ Fair+ Knee Strength Knee Manual Muscle Testing Left Flexion (S2) 4- Good- Extension (L3) 4+ Good+ Ankle/Foot Strength Ankle and Foot Manual Muscle Testing Left Dorsiflexion (L4) 4 Good Plantarflexion (S1) 3+ Fair+ Inversion 3+ Fair+ Eversion (S1) 3 Fair PT-OP-Q Treatments Start: 09/17/19 18:00 Freq: Status: Active Protocol: Document 12/30/20 11:15 DCW (Rec: 12/30/20 12:03 DCW [id number]) Gym Equipment Shuttle Balance Red Details Wide SRIDEVI, Staggered Comments Min Ax1 Therapeutic Exercises Sitting Exercises LAQ Sitting Exercise Name LAQ Side bilateral Resistance 10# Equipment Used ankle weights Standing Exercises Toe-taps Standing Exercise Name Toe-taps Side bilateral Resistance 10# Equipment Used 6 step Gait Training Gait Activity No AD Description No AD Device Used None Level of Assistance SBA Distance/Duration 980' x1 Comments VCs to promote heel-toe gait, extend left knee during stance phase Neuro Re-Education Treatment Balance Activities Ball Kick Details Ball kick to goal Comments Weight shift, SLS, Coordination Cone transfers Details Bending down ball pick-up from cone, kick cone over, ball toss to target PT-OP-R Modalities Start: 09/17/19 18:00 Freq: Status: Active Protocol: Document 12/30/20 11:15 DCW (Rec: 12/30/20 12:03 DCW [id number]) Electric Stimulation Electric Stimulation Interferential Current (IFC) Body Location L ant ankle Duration (Minutes) 15 Patient Position Sitting Combined With Heat/Cold Cold Pack PT-OP-S Aquatic Treatment Start: 09/17/19 18:00 Freq: Status: Active Protocol: Document 01/30/20 12:30 LJ (Rec: 01/30/20 14:54 LJ [id number]) Aquatics Treatment Pool Entry/Exit Pool Entry/Exit Method Lift Assistance Minimal Assistance Water Walking Slow motion Water Level Chest Level Walking Equipment wet vest, UE float, #2.5 ankle wt Level of Assistance Standby Assistance,Contact Guard Assistance,Moderate Assistance Comments emphasis on LLE extension stance phase January Water Level Chest Level Walking Equipment wet vest, UE float, #2.5 ankle wt Level of Assistance Standby Assistance,Contact Guard Assistance,Moderate Assistance,Verbal Cues Forward with emphasis on reciprocal gait pattern Water Level Chest Level Level of Assistance Standby Assistance,Contact Guard Assistance,Minimal Assistance,Verbal Cues Comments wetvest, sm float on LUE, #3. 75 ankle wt on LLE start stop walking forward and backward Water Level Chest Level Walking Equipment vest Level of Assistance Contact Guard Assistance, Verbal Cues Comments wetvest, sm float on LUE, #3. 75 ankle wt on LLE Sideways Water Level Chest Level Walking Equipment wet vest, UE float, #2.5 ankle wt Level of Assistance Standby Assistance,Contact Guard Assistance,Minimal Assistance,Verbal Cues Lower Extremity Exercises SL aquats Details HH on wall Body Position Standing Water Level Waist Level Equipment wetvest Reps/Duration 2x10 LLE Comments VC to extend knee knee extensions Details seated in lift chair Equipment Ankle Weight- 5.0# Reps/Duration 20 B Comments seated in lift SLS Details bracing LLE Body Position Standing Water Level Chest Level Equipment vest Reps/Duration 1 min marching at wall Water Level Chest Level Reps/Duration 2 min Comments opposite UE/LE tapping wall squats Body Position Standing Water Level Chest Level Reps/Duration 20x Lower Extremity Stretches adductors Comments seated in chair Gastroc Body Position Sitting Reps/Duration 2 x 45 sec B Comments manual assist hip flexors Details at wall Body Position Standing Water Level Waist Level Reps/Duration 2x45 Comments manually assisted HS Details at wall Body Position Sitting Water Level Waist Level Equipment wet vest Reps/Duration 2x45 Comments sitting in lift chair assisted Upper Extremity Exercises breastroke UE's Body Position Standing Water Level Chest Level Reps/Duration 3 min Comments during walking and deep water hor ab/ad Water Level Chest Level Comments during side walking, CGA Balance step ups Details step ups/down using boxes Body Position Standing Water Level Waist Level Equipment 8 boxes Comments mod verbal cues for coordination [place] Activities [place] Activities Bicycle,Cross Country Equipment wet vest, white noodle Duration 7 min Comments Guy and cues for vertical alignmernt. PT-OP-T Assessment and Plan Start: 09/17/19 18:00 Freq: Status: Active Protocol: Document 12/30/20 11:15 DCW (Rec: 12/30/20 12:03 DCW [id number]) Physical Therapy Assessment Impairments Impairments Activity Tolerance,Balance, Coordination,Functional Activities,Functional Mobility ,Gait,Pain,ROM,Sensation, Strength,Tone,Transfers Goals Six Impairment Decreased Static Balance Short Term Goal (STG) Pt to score <9 seconds on TUG STG Duration Met Inspector Insulation Goal (LTG) MET - Pt to score 35/56 or better on the Adler Balance NEW GOAL - Pt to score 45/56 or better on the Adler Balance Scale LTG Duration 02/03/21 - Improvin/56 Five Impairment Pt uses R rail and step-over gait pattern ascending stairs Inspector Insulation Goal (LTG) Pt to ascend/descend stairs independently without use of rail LTG Duration 02/03/21 - Improving Four Impairment Pt demonstrates strength impairment throughout left LE Snf Goal (LTG) Pt to display MMT >3+/5 through L LE LTG Duration 02/03/21 - Improving Three Impairment Pt SBA for transfers and bed mobility d/t Left Neglect Snf Goal (LTG) Pt to demonstrate independent transfers and bed mobility with an ability to address left LE and UE 80% of the time LTG Duration Met Two Impairment Pt ambulates 280' CGA /s an AD Short Term Goal (STG) Pt to ambulate 400' SBA independently STG Duration Met Snf Goal (LTG) Pt to ambulate 800' during 6 MWT Independently without SBA LTG Duration 02/03/21 - Improving (1347' SBA ) One Impairment Pt does not have an appropriate home exercise program Short Term Goal (STG) Pt to be independent and compliant with an appropriate HEP STG Duration Met Assessment Summary Assessment Pt pushed himself hard today, reports he worked into his reserve energy. Physical Therapy Plan Frequency and Duration Frequency of Treatment 2x/Week Duration of Treatment 3 months Plan of Care Start Date 11/05/20 Plan of Care End Date 02/03/21 Therapeutic Interventions Therapeutic Interventions Aquatic Therapy,Balance Training,Coordination Training ,Gait Training,Home Exercise Program,Manual Therapy, Neuromuscular Re-education, Patient/Caregiver Education, Self-Care/Home Management, Therapeutic Activities, Therapeutic Exercises Modalities Cold Pack/Ice Massage,Electric Stimulation,Hot Packs, Ultrasound Next Visit Focus/Plan Next Note Type Treatment Note Next Visit Plan Continue to challenge, continue strengthening, balance and gait training with NMR. Continue deep water for cardio training and core stabilization. Focus on bilateral knee extension in shallow water gait training
--- NOTE | 2021-01-04 15:58 | PT.OTN ---
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) Physical Therapy Treatment Note PT-OP-A Visit Information Start: 09/17/19 18:00 Freq: Status: Active Protocol: Document 01/04/21 15:15 DCW (Rec: 01/04/21 15:58 DCW [id number]) Out-Patient Physical Therapy Visit Information Visit Information Visit Type Treatment Note Visit Start Time 15:15 Visit Stop Time 16:10 Total Visit Minutes 55 Visit Number 92 Number of WATER RESOURCES PROGRAM DIRECTOR Visits 0 Evaluation Information Evaluation Date 09/17/19 PT-OP-B Current Condition Start: 09/17/19 18:00 Freq: Status: Active Protocol: Document 09/17/19 12:00 DCW (Rec: 09/18/19 10:29 DCW [id number]) Current Condition History of Current Condition Onset Date 04/14/19 Current Complaints Hemiparesis secondary to CVA History of Current Condition Pt is a 69 year old male presenting to skilled outpatient physical therapy with left-side neglect, hemiparesis, loss of independence, and difficulty walking following an intraparenchymal hemorrhage on 04/14/19. Pt was transferred from [facility] to [facility], where a craniotomy was performed on 04/16/19. Pt completed 7 weeks of rehab/ recovery at [facility], and then underwent a second surgery on 06/26/19 to replace the skull fragment. Pt was then at an acute rehab facility 06/30-07/18/19, and since then has been receiving home health physical therapy. Pt presents today with limited left-sided function, left visual and physical neglect, difficulty with transfers, decreased activity tolerance, decreased gait, and many other secondary effects following his CVA. Pt has been working on ambulation with a vale walker with home health, and his states he has walked around 100' a few times, but always with a therapist, as she does not feel comfortable walking with him yet. Pt exclusively gets around at time of evaluation in a manual wheelchair. Pt's transfers have been going fairly well, with his caregivers performing CGA, however pt will occasionally need assistance with placement of his left UE and LE due to neglect. Pt's biggest complaint at the moment is leg pain, his reports they have tried PT, Massage, CBD il, Tylenol, Oxycodine, and Gabapentin, all with minimal benefit. Prior to CVA, pt was fully independent in all activities. Pt and have garegivers 8 hrs a day for assistance. Prior Treatments and Tests Craniotomy 04/16/19, Acute rehab, Skull fragment replacement 06/26/19, home health PT Prior Functional Status Baseline Function- ADL's Independent Baseline Function- Mobility Independent PT-OP-C Subjective Start: 09/17/19 18:00 Freq: Status: Active Protocol: Document 01/04/21 15:15 DCW (Rec: 01/04/21 15:58 DCW [id number]) OP-PT Subjective Patient Comments Patient Comments Pt reports he is still struggling with my sinuses, so I have an x-ray coming up this week. Pt's reports his neurologist admits he is doing better than most. PT-OP-D Balance Start: 08/04/20 14:14 Freq: Status: Active Protocol: Document 11/05/20 12:00 DCW (Rec: 11/05/20 12:48 DCW [id number]) Balance Tests Adler Balance Test Adler Balance Test Score 44/56 Adler Impairment Rating 20 to 39% Impaired (Score 34- 44) Adler Balance Assessment Evaluation Sitting to Standing Ability Independent w/out Hands Unsupported Stance Safely- 2 minutes Sitting Unsupported, Feet on Floor Safely- 2 minutes Standing to Sitting Ability Safely, Minimal Hand Use Transfer Ability Safely, Minimal Hand Use Unsupported Stance- Eyes Closed Supervision, 10 seconds Unsupported Stance- Eyes Open Supervision to maintain Reaching Forward Standing Safely, 5 inches Pick- Up Object From Floor Independent/Safe Look Behind Shoulder - Standing Shifts Weight Unilateral Turning 360 Degrees Turns slowly, but safely Unsupported Stance, Alternating Feet on 4 Steps w/Supervision Stair Unsupported Tandem Stance Small Step- 30 seconds Unilateral Leg Stance Lifts Leg/Holds > 3 secs Total Score Adler Total Score (out of 56 points) 44 Adler Impairment Rating 20 to 39% Impaired (Score 34- 44) PT-OP-E Functional Tests Start: 05/04/20 15:15 Freq: Status: Active Protocol: Document 11/05/20 12:00 DCW (Rec: 11/05/20 12:48 DCW [id number]) Functional Tests 6 Minute Walk Test Distance 1347' Device Used none Comments 3.74 ft/sec Timed Up and Go (TUG) Score 7.88 seconds Comments 3-trial average (8.16, 7.75, 7 .73) TUG Impairment Rating 0% Impaired (Score 10) PT-OP-G Mobility & Gait Start: 09/17/19 18:00 Freq: Status: Active Protocol: Document 11/05/20 12:00 DCW (Rec: 11/05/20 12:48 DCW [id number]) OP Gait Assessment Gait Gait Assistance Required: Standby Assistance Distance (Feet) 1,347 Assistive Devices Assistive Device None Gait Deviations General Gait Pattern Antalgic,Ataxic,Decreased Feet Clearance,Flexed Trunk, Lateral Trunk Lean Factors Limiting Gait Function Factors Limiting Gait Function Abnormal Tonal Influences, Decreased Activity Tolerance, Decreased Sensation,Decreased Strength,Incoordination,Poor Balance,Poor Safety Awareness PT-OP-H Neuro Start: 09/17/19 18:00 Freq: Status: Active Protocol: Document 11/05/20 12:00 DCW (Rec: 11/05/20 12:48 DCW [id number]) Sensation Evaluation Gross Sensation Gross Sensation Left UE Impaired,Left LE Impaired Sensation Description Paresthesia,Numbness,Pain Location Details Left Leg Light Touch Impaired Sharp/Dull Impaired Deep Pressure Impaired Proprioception (Position) Impaired Kinesthesia (Movement) Impaired Deep Tendon Reflex & Clonus Assessment Deep Tendon Reflex Left Achilles Deep Tendon Reflex 3+ Normal But Brisk Left Patellar Deep Tendon Reflex 3+ Normal But Brisk Ankle Clonus Left Clonus Assessment Sustained Muscle Tone Tone Assessment Left Lower Extremity Flexor Tone Description Mild Hypotonicity PT-OP-M Strength Start: 09/17/19 18:00 Freq: Status: Active Protocol: Document 11/05/20 12:00 DCW (Rec: 11/05/20 12:48 DCW [id number]) Hip Strength Hip Manual Muscle Testing Left Flexion (L2) 4- Good- Extension (S1) 4 Good Abduction 3 Fair Adduction 4 Good External Rotation 3+ Fair+ Internal Rotation 3+ Fair+ Knee Strength Knee Manual Muscle Testing Left Flexion (S2) 4- Good- Extension (L3) 4+ Good+ Ankle/Foot Strength Ankle and Foot Manual Muscle Testing Left Dorsiflexion (L4) 4 Good Plantarflexion (S1) 3+ Fair+ Inversion 3+ Fair+ Eversion (S1) 3 Fair PT-OP-Q Treatments Start: 09/17/19 18:00 Freq: Status: Active Protocol: Document 01/04/21 15:15 DCW (Rec: 01/04/21 15:58 DCW [id number]) Gym Equipment Shuttle Recovery Unilateral Heel Raises Details Left Resistance 25# Reps/Time calf stretch at end Unilateral Squats Details Left Resistance 62# Shuttle Recovery Platform Stable Bilateral Squats Resistance 100# Shuttle Recovery Platform Stable Shuttle Balance Red Details Wide SRIDEVI, Staggered Comments Min Ax1 Gait Training Gait Activity No AD Description No AD Device Used None Level of Assistance SBA Distance/Duration 950' x1 Comments VCs to promote heel-toe gait, extend left knee during stance phase Neuro Re-Education Treatment Balance Activities Hurdles Details Hurdles Comments Min Ax1 Cone transfers Details Bending down ball pick-up from cone, kick cone over, ball toss to target PT-OP-R Modalities Start: 09/17/19 18:00 Freq: Status: Active Protocol: Document 01/04/21 15:15 DCW (Rec: 01/04/21 15:58 DCW [id number]) Electric Stimulation Electric Stimulation Interferential Current (IFC) Body Location L ant ankle Duration (Minutes) 15 Patient Position Sitting Combined With Heat/Cold Cold Pack PT-OP-S Aquatic Treatment Start: 09/17/19 18:00 Freq: Status: Active Protocol: Document 01/30/20 12:30 LJ (Rec: 01/30/20 14:54 LJ [id number]) Aquatics Treatment Pool Entry/Exit Pool Entry/Exit Method Lift Assistance Minimal Assistance Water Walking Slow motion Water Level Chest Level Walking Equipment wet vest, UE float, #2.5 ankle wt Level of Assistance Standby Assistance,Contact Guard Assistance,Moderate Assistance Comments emphasis on LLE extension stance phase January Water Level Chest Level Walking Equipment wet vest, UE float, #2.5 ankle wt Level of Assistance Standby Assistance,Contact Guard Assistance,Moderate Assistance,Verbal Cues Forward with emphasis on reciprocal gait pattern Water Level Chest Level Level of Assistance Standby Assistance,Contact Guard Assistance,Minimal Assistance,Verbal Cues Comments wetvest, sm float on LUE, #3. 75 ankle wt on LLE start stop walking forward and backward Water Level Chest Level Walking Equipment vest Level of Assistance Contact Guard Assistance, Verbal Cues Comments wetvest, sm float on LUE, #3. 75 ankle wt on LLE Sideways Water Level Chest Level Walking Equipment wet vest, UE float, #2.5 ankle wt Level of Assistance Standby Assistance,Contact Guard Assistance,Minimal Assistance,Verbal Cues Lower Extremity Exercises SL aquats Details HH on wall Body Position Standing Water Level Waist Level Equipment wetvest Reps/Duration 2x10 LLE Comments VC to extend knee knee extensions Details seated in lift chair Equipment Ankle Weight- 5.0# Reps/Duration 20 B Comments seated in lift SLS Details bracing LLE Body Position Standing Water Level Chest Level Equipment vest Reps/Duration 1 min marching at wall Water Level Chest Level Reps/Duration 2 min Comments opposite UE/LE tapping wall squats Body Position Standing Water Level Chest Level Reps/Duration 20x Lower Extremity Stretches adductors Comments seated in chair Gastroc Body Position Sitting Reps/Duration 2 x 45 sec B Comments manual assist hip flexors Details at wall Body Position Standing Water Level Waist Level Reps/Duration 2x45 Comments manually assisted HS Details at wall Body Position Sitting Water Level Waist Level Equipment wet vest Reps/Duration 2x45 Comments sitting in lift chair assisted Upper Extremity Exercises breastroke UE's Body Position Standing Water Level Chest Level Reps/Duration 3 min Comments during walking and deep water hor ab/ad Water Level Chest Level Comments during side walking, CGA Balance step ups Details step ups/down using boxes Body Position Standing Water Level Waist Level Equipment 8 boxes Comments mod verbal cues for coordination [place] Activities [place] Activities Bicycle,Cross Country Equipment wet vest, white noodle Duration 7 min Comments Guy and cues for vertical alignmernt. PT-OP-T Assessment and Plan Start: 09/17/19 18:00 Freq: Status: Active Protocol: Document 01/04/21 15:15 DCW (Rec: 01/04/21 15:58 DCW [id number]) Physical Therapy Assessment Impairments Impairments Activity Tolerance,Balance, Coordination,Functional Activities,Functional Mobility ,Gait,Pain,ROM,Sensation, Strength,Tone,Transfers Goals Six Impairment Decreased Static Balance Short Term Goal (STG) Pt to score <9 seconds on TUG STG Duration Met Residential Goal (LTG) MET - Pt to score 35/56 or better on the Adler Balance NEW GOAL - Pt to score 45/56 or better on the Adler Balance Scale LTG Duration 02/03/21 - Improvin/56 Five Impairment Pt uses R rail and step-over gait pattern ascending stairs Internet Application Developer Goal (LTG) Pt to ascend/descend stairs independently without use of rail LTG Duration 02/03/21 - Improving Four Impairment Pt demonstrates strength impairment throughout left LE Internet Application Developer Goal (LTG) Pt to display MMT >3+/5 through L LE LTG Duration 02/03/21 - Improving Three Impairment Pt SBA for transfers and bed mobility d/t Left Neglect Internet Application Developer Goal (LTG) Pt to demonstrate independent transfers and bed mobility with an ability to address left LE and UE 80% of the time LTG Duration Met Two Impairment Pt ambulates 280' CGA /s an AD Short Term Goal (STG) Pt to ambulate 400' SBA independently STG Duration Met Internet Application Developer Goal (LTG) Pt to ambulate 800' during 6 MWT Independently without SBA LTG Duration 02/03/21 - Improving (1347' SBA ) One Impairment Pt does not have an appropriate home exercise program Short Term Goal (STG) Pt to be independent and compliant with an appropriate HEP STG Duration Met Assessment Summary Assessment Pt reported concerns that his endurance is declining, but was then pleased when therapist pointed out he is preforming all activities much better with less fatigue, less heavy breathing, and fewer rest breaks. Physical Therapy Plan Frequency and Duration Frequency of Treatment 2x/Week Duration of Treatment 3 months Plan of Care Start Date 11/05/20 Plan of Care End Date 02/03/21 Therapeutic Interventions Therapeutic Interventions Aquatic Therapy,Balance Training,Coordination Training ,Gait Training,Home Exercise Program,Manual Therapy, Neuromuscular Re-education, Patient/Caregiver Education, Self-Care/Home Management, Therapeutic Activities, Therapeutic Exercises Modalities Cold Pack/Ice Massage,Electric Stimulation,Hot Packs, Ultrasound Next Visit Focus/Plan Next Note Type Treatment Note Next Visit Plan Continue to challenge, continue strengthening, balance and gait training with NMR. Continue deep water for cardio training and core stabilization. Focus on bilateral knee extension in shallow water gait training
--- NOTE | 2021-01-10 12:48 | PT.OTN ---
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) Physical Therapy Treatment Note PT-OP-A Visit Information Start: 09/17/19 18:00 Freq: Status: Active Protocol: Document 01/10/21 12:00 DCW (Rec: 01/10/21 12:48 DCW [id number]) Out-Patient Physical Therapy Visit Information Visit Information Visit Type Treatment Note Visit Start Time 12:00 Visit Stop Time 12:55 Total Visit Minutes 55 Visit Number 93 Number of VAULT WORKER Visits 0 Evaluation Information Evaluation Date 09/17/19 PT-OP-B Current Condition Start: 09/17/19 18:00 Freq: Status: Active Protocol: Document 09/17/19 12:00 DCW (Rec: 09/18/19 10:29 DCW [id number]) Current Condition History of Current Condition Onset Date 04/14/19 Current Complaints Hemiparesis secondary to CVA History of Current Condition Pt is a 69 year old male presenting to skilled outpatient physical therapy with left-side neglect, hemiparesis, loss of independence, and difficulty walking following an intraparenchymal hemorrhage on 04/14/19. Pt was transferred from [facility] to [facility], where a craniotomy was performed on 04/16/19. Pt completed 7 weeks of rehab/ recovery at [facility], and then underwent a second surgery on 06/26/19 to replace the skull fragment. Pt was then at an acute rehab facility 06/30-07/18/19, and since then has been receiving home health physical therapy. Pt presents today with limited left-sided function, left visual and physical neglect, difficulty with transfers, decreased activity tolerance, decreased gait, and many other secondary effects following his CVA. Pt has been working on ambulation with a vale walker with home health, and his states he has walked around 100' a few times, but always with a therapist, as she does not feel comfortable walking with him yet. Pt exclusively gets around at time of evaluation in a manual wheelchair. Pt's transfers have been going fairly well, with his caregivers performing CGA, however pt will occasionally need assistance with placement of his left UE and LE due to neglect. Pt's biggest complaint at the moment is leg pain, his reports they have tried PT, Massage, CBD il, Tylenol, Oxycodine, and Gabapentin, all with minimal benefit. Prior to CVA, pt was fully independent in all activities. Pt and have garegivers 8 hrs a day for assistance. Prior Treatments and Tests Craniotomy 04/16/19, Acute rehab, Skull fragment replacement 06/26/19, home health PT Prior Functional Status Baseline Function- ADL's Independent Baseline Function- Mobility Independent PT-OP-C Subjective Start: 09/17/19 18:00 Freq: Status: Active Protocol: Document 01/10/21 12:00 DCW (Rec: 01/10/21 12:48 DCW [id number]) OP-PT Subjective Patient Comments Patient Comments Pt very happy with how he did last week ambulating with less assistance. PT-OP-D Balance Start: 08/04/20 14:14 Freq: Status: Active Protocol: Document 11/05/20 12:00 DCW (Rec: 11/05/20 12:48 DCW [id number]) Balance Tests Adler Balance Test Adler Balance Test Score 44/56 Adler Impairment Rating 20 to 39% Impaired (Score 34- 44) Adler Balance Assessment Evaluation Sitting to Standing Ability Independent w/out Hands Unsupported Stance Safely- 2 minutes Sitting Unsupported, Feet on Floor Safely- 2 minutes Standing to Sitting Ability Safely, Minimal Hand Use Transfer Ability Safely, Minimal Hand Use Unsupported Stance- Eyes Closed Supervision, 10 seconds Unsupported Stance- Eyes Open Supervision to maintain Reaching Forward Standing Safely, 5 inches Pick- Up Object From Floor Independent/Safe Look Behind Shoulder - Standing Shifts Weight Unilateral Turning 360 Degrees Turns slowly, but safely Unsupported Stance, Alternating Feet on 4 Steps w/Supervision Stair Unsupported Tandem Stance Small Step- 30 seconds Unilateral Leg Stance Lifts Leg/Holds > 3 secs Total Score Adler Total Score (out of 56 points) 44 Adler Impairment Rating 20 to 39% Impaired (Score 34- 44) PT-OP-E Functional Tests Start: 05/04/20 15:15 Freq: Status: Active Protocol: Document 11/05/20 12:00 DCW (Rec: 11/05/20 12:48 DCW [id number]) Functional Tests 6 Minute Walk Test Distance 1347' Device Used none Comments 3.74 ft/sec Timed Up and Go (TUG) Score 7.88 seconds Comments 3-trial average (8.16, 7.75, 7 .73) TUG Impairment Rating 0% Impaired (Score 10) PT-OP-G Mobility & Gait Start: 09/17/19 18:00 Freq: Status: Active Protocol: Document 11/05/20 12:00 DCW (Rec: 11/05/20 12:48 DCW [id number]) OP Gait Assessment Gait Gait Assistance Required: Standby Assistance Distance (Feet) 1,347 Assistive Devices Assistive Device None Gait Deviations General Gait Pattern Antalgic,Ataxic,Decreased Feet Clearance,Flexed Trunk, Lateral Trunk Lean Factors Limiting Gait Function Factors Limiting Gait Function Abnormal Tonal Influences, Decreased Activity Tolerance, Decreased Sensation,Decreased Strength,Incoordination,Poor Balance,Poor Safety Awareness PT-OP-H Neuro Start: 09/17/19 18:00 Freq: Status: Active Protocol: Document 11/05/20 12:00 DCW (Rec: 11/05/20 12:48 DCW [id number]) Sensation Evaluation Gross Sensation Gross Sensation Left UE Impaired,Left LE Impaired Sensation Description Paresthesia,Numbness,Pain Location Details Left Leg Light Touch Impaired Sharp/Dull Impaired Deep Pressure Impaired Proprioception (Position) Impaired Kinesthesia (Movement) Impaired Deep Tendon Reflex & Clonus Assessment Deep Tendon Reflex Left Achilles Deep Tendon Reflex 3+ Normal But Brisk Left Patellar Deep Tendon Reflex 3+ Normal But Brisk Ankle Clonus Left Clonus Assessment Sustained Muscle Tone Tone Assessment Left Lower Extremity Flexor Tone Description Mild Hypotonicity PT-OP-M Strength Start: 09/17/19 18:00 Freq: Status: Active Protocol: Document 11/05/20 12:00 DCW (Rec: 11/05/20 12:48 DCW [id number]) Hip Strength Hip Manual Muscle Testing Left Flexion (L2) 4- Good- Extension (S1) 4 Good Abduction 3 Fair Adduction 4 Good External Rotation 3+ Fair+ Internal Rotation 3+ Fair+ Knee Strength Knee Manual Muscle Testing Left Flexion (S2) 4- Good- Extension (L3) 4+ Good+ Ankle/Foot Strength Ankle and Foot Manual Muscle Testing Left Dorsiflexion (L4) 4 Good Plantarflexion (S1) 3+ Fair+ Inversion 3+ Fair+ Eversion (S1) 3 Fair PT-OP-Q Treatments Start: 09/17/19 18:00 Freq: Status: Active Protocol: Document 01/10/21 12:00 DCW (Rec: 01/10/21 12:48 DCW [id number]) Gym Equipment Shuttle Recovery Unilateral Heel Raises Details Left Resistance 25# Reps/Time calf stretch at end Unilateral Squats Details Left Resistance 62# Shuttle Recovery Platform Stable Bilateral Squats Resistance 100# Shuttle Recovery Platform Stable Therapeutic Exercises Sitting Exercises LAQ Sitting Exercise Name LAQ Side bilateral Resistance 10# Equipment Used ankle weights Reps/Minutes x15 Gait Training Gait Activity No AD Description No AD Device Used None Level of Assistance SBA Distance/Duration 950' x1 Comments VCs to promote heel-toe gait, extend left knee during stance phase Neuro Re-Education Treatment Balance Activities Hurdles Details Hurdles Comments Min Ax1 Cone transfers Details Bending down ball pick-up from cone, kick cone over, ball toss to target PT-OP-R Modalities Start: 09/17/19 18:00 Freq: Status: Active Protocol: Document 01/10/21 12:00 DCW (Rec: 01/10/21 12:48 DCW [id number]) Electric Stimulation Electric Stimulation Interferential Current (IFC) Body Location L ant ankle Duration (Minutes) 15 Patient Position Sitting Combined With Heat/Cold Cold Pack PT-OP-S Aquatic Treatment Start: 09/17/19 18:00 Freq: Status: Active Protocol: Document 01/30/20 12:30 LJ (Rec: 01/30/20 14:54 LJ [id number]) Aquatics Treatment Pool Entry/Exit Pool Entry/Exit Method Lift Assistance Minimal Assistance Water Walking Slow motion Water Level Chest Level Walking Equipment wet vest, UE float, #2.5 ankle wt Level of Assistance Standby Assistance,Contact Guard Assistance,Moderate Assistance Comments emphasis on LLE extension stance phase January Water Level Chest Level Walking Equipment wet vest, UE float, #2.5 ankle wt Level of Assistance Standby Assistance,Contact Guard Assistance,Moderate Assistance,Verbal Cues Forward with emphasis on reciprocal gait pattern Water Level Chest Level Level of Assistance Standby Assistance,Contact Guard Assistance,Minimal Assistance,Verbal Cues Comments wetvest, sm float on LUE, #3. 75 ankle wt on LLE start stop walking forward and backward Water Level Chest Level Walking Equipment vest Level of Assistance Contact Guard Assistance, Verbal Cues Comments wetvest, sm float on LUE, #3. 75 ankle wt on LLE Sideways Water Level Chest Level Walking Equipment wet vest, UE float, #2.5 ankle wt Level of Assistance Standby Assistance,Contact Guard Assistance,Minimal Assistance,Verbal Cues Lower Extremity Exercises SL aquats Details HH on wall Body Position Standing Water Level Waist Level Equipment wetvest Reps/Duration 2x10 LLE Comments VC to extend knee knee extensions Details seated in lift chair Equipment Ankle Weight- 5.0# Reps/Duration 20 B Comments seated in lift SLS Details bracing LLE Body Position Standing Water Level Chest Level Equipment vest Reps/Duration 1 min marching at wall Water Level Chest Level Reps/Duration 2 min Comments opposite UE/LE tapping wall squats Body Position Standing Water Level Chest Level Reps/Duration 20x Lower Extremity Stretches adductors Comments seated in chair Gastroc Body Position Sitting Reps/Duration 2 x 45 sec B Comments manual assist hip flexors Details at wall Body Position Standing Water Level Waist Level Reps/Duration 2x45 Comments manually assisted HS Details at wall Body Position Sitting Water Level Waist Level Equipment wet vest Reps/Duration 2x45 Comments sitting in lift chair assisted Upper Extremity Exercises breastroke UE's Body Position Standing Water Level Chest Level Reps/Duration 3 min Comments during walking and deep water hor ab/ad Water Level Chest Level Comments during side walking, CGA Balance step ups Details step ups/down using boxes Body Position Standing Water Level Waist Level Equipment 8 boxes Comments mod verbal cues for coordination [place] Activities [place] Activities Bicycle,Cross [place] Equipment wet vest, white noodle Duration 7 min Comments Guy and cues for vertical alignmernt. PT-OP-T Assessment and Plan Start: 09/17/19 18:00 Freq: Status: Active Protocol: Document 01/10/21 12:00 DCW (Rec: 01/10/21 12:48 DCW [id number]) Physical Therapy Assessment Impairments Impairments Activity Tolerance,Balance, Coordination,Functional Activities,Functional Mobility ,Gait,Pain,ROM,Sensation, Strength,Tone,Transfers Goals Six Impairment Decreased Static Balance Short Term Goal (STG) Pt to score <9 seconds on TUG STG Duration Met Usp Goal (LTG) MET - Pt to score 35/56 or better on the Adler Balance NEW GOAL - Pt to score 45/56 or better on the Adler Balance Scale LTG Duration 02/03/21 - Improvin/56 Five Impairment Pt uses R rail and step-over gait pattern ascending stairs Distribution Lead Goal (LTG) Pt to ascend/descend stairs independently without use of rail LTG Duration 02/03/21 - Improving Four Impairment Pt demonstrates strength impairment throughout left LE Distribution Lead Goal (LTG) Pt to display MMT >3+/5 through L LE LTG Duration 02/03/21 - Improving Three Impairment Pt SBA for transfers and bed mobility d/t Left Neglect Usp Goal (LTG) Pt to demonstrate independent transfers and bed mobility with an ability to address left LE and UE 80% of the time LTG Duration Met Two Impairment Pt ambulates 280' CGA /s an AD Short Term Goal (STG) Pt to ambulate 400' SBA independently STG Duration Met Usp Goal (LTG) Pt to ambulate 800' during 6 MWT Independently without SBA LTG Duration 02/03/21 - Improving (1347' SBA ) One Impairment Pt does not have an appropriate home exercise program Short Term Goal (STG) Pt to be independent and compliant with an appropriate HEP STG Duration Met Assessment Summary Assessment Pt feeling very optimistic today, happy with current level of function, overall just had a great day at therapy. Physical Therapy Plan Frequency and Duration Frequency of Treatment 2x/Week Duration of Treatment 3 months Plan of Care Start Date 11/05/20 Plan of Care End Date 02/03/21 Therapeutic Interventions Therapeutic Interventions Aquatic Therapy,Balance Training,Coordination Training ,Gait Training,Home Exercise Program,Manual Therapy, Neuromuscular Re-education, Patient/Caregiver Education, Self-Care/Home Management, Therapeutic Activities, Therapeutic Exercises Modalities Cold Pack/Ice Massage,Electric Stimulation,Hot Packs, Ultrasound Next Visit Focus/Plan Next Note Type Treatment Note Next Visit Plan Continue to challenge, continue strengthening, balance and gait training with NMR. Continue deep water for cardio training and core stabilization. Focus on bilateral knee extension in shallow water gait training
--- NOTE | 2021-01-13 12:47 | PT.OTN ---
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) Physical Therapy Treatment Note PT-OP-A Visit Information Start: 09/17/19 18:00 Freq: Status: Active Protocol: Document 01/13/21 12:06 DCW (Rec: 01/13/21 12:47 DCW [id number]) Out-Patient Physical Therapy Visit Information Visit Information Visit Type Treatment Note Visit Start Time 12:06 Visit Stop Time 12:55 Total Visit Minutes 49 Visit Number 94 Number of FLOWER GRADER Visits 0 Evaluation Information Evaluation Date 09/17/19 PT-OP-B Current Condition Start: 09/17/19 18:00 Freq: Status: Active Protocol: Document 09/17/19 12:00 DCW (Rec: 09/18/19 10:29 DCW [id number]) Current Condition History of Current Condition Onset Date 04/14/19 Current Complaints Hemiparesis secondary to CVA History of Current Condition Pt is a 69 year old male presenting to skilled outpatient physical therapy with left-side neglect, hemiparesis, loss of independence, and difficulty walking following an intraparenchymal hemorrhage on 04/14/19. Pt was transferred from [facility] to [facility], where a craniotomy was performed on 04/16/19. Pt completed 7 weeks of rehab/ recovery at [facility], and then underwent a second surgery on 06/26/19 to replace the skull fragment. Pt was then at an acute rehab facility 06/30-07/18/19, and since then has been receiving home health physical therapy. Pt presents today with limited left-sided function, left visual and physical neglect, difficulty with transfers, decreased activity tolerance, decreased gait, and many other secondary effects following his CVA. Pt has been working on ambulation with a vale walker with home health, and his states he has walked around 100' a few times, but always with a therapist, as she does not feel comfortable walking with him yet. Pt exclusively gets around at time of evaluation in a manual wheelchair. Pt's transfers have been going fairly well, with his caregivers performing CGA, however pt will occasionally need assistance with placement of his left UE and LE due to neglect. Pt's biggest complaint at the moment is leg pain, his reports they have tried PT, Massage, CBD il, Tylenol, Oxycodine, and Gabapentin, all with minimal benefit. Prior to CVA, pt was fully independent in all activities. Pt and have garegivers 8 hrs a day for assistance. Prior Treatments and Tests Craniotomy 04/16/19, Acute rehab, Skull fragment replacement 06/26/19, home health PT Prior Functional Status Baseline Function- ADL's Independent Baseline Function- Mobility Independent PT-OP-C Subjective Start: 09/17/19 18:00 Freq: Status: Active Protocol: Document 01/13/21 12:06 DCW (Rec: 01/13/21 12:47 DCW [id number]) OP-PT Subjective Patient Comments Patient Comments Pt feeling good so far. PT-OP-D Balance Start: 08/04/20 14:14 Freq: Status: Active Protocol: Document 11/05/20 12:00 DCW (Rec: 11/05/20 12:48 DCW [id number]) Balance Tests Adler Balance Test Adler Balance Test Score 44/56 Adler Impairment Rating 20 to 39% Impaired (Score 34- 44) Adler Balance Assessment Evaluation Sitting to Standing Ability Independent w/out Hands Unsupported Stance Safely- 2 minutes Sitting Unsupported, Feet on Floor Safely- 2 minutes Standing to Sitting Ability Safely, Minimal Hand Use Transfer Ability Safely, Minimal Hand Use Unsupported Stance- Eyes Closed Supervision, 10 seconds Unsupported Stance- Eyes Open Supervision to maintain Reaching Forward Standing Safely, 5 inches Pick- Up Object From Floor Independent/Safe Look Behind Shoulder - Standing Shifts Weight Unilateral Turning 360 Degrees Turns slowly, but safely Unsupported Stance, Alternating Feet on 4 Steps w/Supervision Stair Unsupported Tandem Stance Small Step- 30 seconds Unilateral Leg Stance Lifts Leg/Holds > 3 secs Total Score Adler Total Score (out of 56 points) 44 Adler Impairment Rating 20 to 39% Impaired (Score 34- 44) PT-OP-E Functional Tests Start: 05/04/20 15:15 Freq: Status: Active Protocol: Document 11/05/20 12:00 DCW (Rec: 11/05/20 12:48 DCW [id number]) Functional Tests 6 Minute Walk Test Distance 1347' Device Used none Comments 3.74 ft/sec Timed Up and Go (TUG) Score 7.88 seconds Comments 3-trial average (8.16, 7.75, 7 .73) TUG Impairment Rating 0% Impaired (Score 10) PT-OP-G Mobility & Gait Start: 09/17/19 18:00 Freq: Status: Active Protocol: Document 11/05/20 12:00 DCW (Rec: 11/05/20 12:48 DCW [id number]) OP Gait Assessment Gait Gait Assistance Required: Standby Assistance Distance (Feet) 1,347 Assistive Devices Assistive Device None Gait Deviations General Gait Pattern Antalgic,Ataxic,Decreased Feet Clearance,Flexed Trunk, Lateral Trunk Lean Factors Limiting Gait Function Factors Limiting Gait Function Abnormal Tonal Influences, Decreased Activity Tolerance, Decreased Sensation,Decreased Strength,Incoordination,Poor Balance,Poor Safety Awareness PT-OP-H Neuro Start: 09/17/19 18:00 Freq: Status: Active Protocol: Document 11/05/20 12:00 DCW (Rec: 11/05/20 12:48 DCW [id number]) Sensation Evaluation Gross Sensation Gross Sensation Left UE Impaired,Left LE Impaired Sensation Description Paresthesia,Numbness,Pain Location Details Left Leg Light Touch Impaired Sharp/Dull Impaired Deep Pressure Impaired Proprioception (Position) Impaired Kinesthesia (Movement) Impaired Deep Tendon Reflex & Clonus Assessment Deep Tendon Reflex Left Achilles Deep Tendon Reflex 3+ Normal But Brisk Left Patellar Deep Tendon Reflex 3+ Normal But Brisk Ankle Clonus Left Clonus Assessment Sustained Muscle Tone Tone Assessment Left Lower Extremity Flexor Tone Description Mild Hypotonicity PT-OP-M Strength Start: 09/17/19 18:00 Freq: Status: Active Protocol: Document 11/05/20 12:00 DCW (Rec: 11/05/20 12:48 DCW [id number]) Hip Strength Hip Manual Muscle Testing Left Flexion (L2) 4- Good- Extension (S1) 4 Good Abduction 3 Fair Adduction 4 Good External Rotation 3+ Fair+ Internal Rotation 3+ Fair+ Knee Strength Knee Manual Muscle Testing Left Flexion (S2) 4- Good- Extension (L3) 4+ Good+ Ankle/Foot Strength Ankle and Foot Manual Muscle Testing Left Dorsiflexion (L4) 4 Good Plantarflexion (S1) 3+ Fair+ Inversion 3+ Fair+ Eversion (S1) 3 Fair PT-OP-Q Treatments Start: 09/17/19 18:00 Freq: Status: Active Protocol: Document 01/13/21 12:06 DCW (Rec: 01/13/21 12:47 DCW [id number]) Gym Equipment Shuttle Balance Red Details Wide SRIDEVI, Staggered Comments Min Ax1 Therapeutic Exercises Standing Exercises Toe-taps Standing Exercise Name Toe-taps Side bilateral Resistance 10# Equipment Used 6 step Gait Training Gait Activity No AD Description No AD Device Used None Level of Assistance SBA Distance/Duration 960' x1 Comments VCs to promote heel-toe gait, extend left knee during stance phase Neuro Re-Education Treatment Balance Activities Hurdles Details Hurdles Comments Min Ax1 Cone transfers Details Bending down ball pick-up from cone, kick cone over, ball toss to target PT-OP-R Modalities Start: 09/17/19 18:00 Freq: Status: Active Protocol: Document 01/13/21 12:06 DCW (Rec: 01/13/21 12:47 DCW [id number]) Electric Stimulation Electric Stimulation Interferential Current (IFC) Body Location L ant ankle Duration (Minutes) 15 Patient Position Sitting Combined With Heat/Cold Cold Pack PT-OP-S Aquatic Treatment Start: 09/17/19 18:00 Freq: Status: Active Protocol: Document 01/30/20 12:30 LJ (Rec: 01/30/20 14:54 LJ [id number]) Aquatics Treatment Pool Entry/Exit Pool Entry/Exit Method Lift Assistance Minimal Assistance Water Walking Slow motion Water Level Chest Level Walking Equipment wet vest, UE float, #2.5 ankle wt Level of Assistance Standby Assistance,Contact Guard Assistance,Moderate Assistance Comments emphasis on LLE extension stance phase January Water Level Chest Level Walking Equipment wet vest, UE float, #2.5 ankle wt Level of Assistance Standby Assistance,Contact Guard Assistance,Moderate Assistance,Verbal Cues Forward with emphasis on reciprocal gait pattern Water Level Chest Level Level of Assistance Standby Assistance,Contact Guard Assistance,Minimal Assistance,Verbal Cues Comments wetvest, sm float on LUE, #3. 75 ankle wt on LLE start stop walking forward and backward Water Level Chest Level Walking Equipment vest Level of Assistance Contact Guard Assistance, Verbal Cues Comments wetvest, sm float on LUE, #3. 75 ankle wt on LLE Sideways Water Level Chest Level Walking Equipment wet vest, UE float, #2.5 ankle wt Level of Assistance Standby Assistance,Contact Guard Assistance,Minimal Assistance,Verbal Cues Lower Extremity Exercises SL aquats Details HH on wall Body Position Standing Water Level Waist Level Equipment wetvest Reps/Duration 2x10 LLE Comments VC to extend knee knee extensions Details seated in lift chair Equipment Ankle Weight- 5.0# Reps/Duration 20 B Comments seated in lift SLS Details bracing LLE Body Position Standing Water Level Chest Level Equipment vest Reps/Duration 1 min marching at wall Water Level Chest Level Reps/Duration 2 min Comments opposite UE/LE tapping wall squats Body Position Standing Water Level Chest Level Reps/Duration 20x Lower Extremity Stretches adductors Comments seated in chair Gastroc Body Position Sitting Reps/Duration 2 x 45 sec B Comments manual assist hip flexors Details at wall Body Position Standing Water Level Waist Level Reps/Duration 2x45 Comments manually assisted HS Details at wall Body Position Sitting Water Level Waist Level Equipment wet vest Reps/Duration 2x45 Comments sitting in lift chair assisted Upper Extremity Exercises breastroke UE's Body Position Standing Water Level Chest Level Reps/Duration 3 min Comments during walking and deep water hor ab/ad Water Level Chest Level Comments during side walking, CGA Balance step ups Details step ups/down using boxes Body Position Standing Water Level Waist Level Equipment 8 boxes Comments mod verbal cues for coordination [place] Activities [place] Activities Bicycle,Cross Country Equipment wet vest, white noodle Duration 7 min Comments Guy and cues for vertical alignmernt. PT-OP-T Assessment and Plan Start: 09/17/19 18:00 Freq: Status: Active Protocol: Document 01/13/21 12:06 DCW (Rec: 01/13/21 12:47 DCW [id number]) Physical Therapy Assessment Impairments Impairments Activity Tolerance,Balance, Coordination,Functional Activities,Functional Mobility ,Gait,Pain,ROM,Sensation, Strength,Tone,Transfers Goals Six Impairment Decreased Static Balance Short Term Goal (STG) Pt to score <9 seconds on TUG STG Duration Met Fdc Goal (LTG) MET - Pt to score 35/56 or better on the Adler Balance NEW GOAL - Pt to score 45/56 or better on the Adler Balance Scale LTG Duration 02/03/21 - Improvin/56 Five Impairment Pt uses R rail and step-over gait pattern ascending stairs Fire Sprinkler Inspector Goal (LTG) Pt to ascend/descend stairs independently without use of rail LTG Duration 02/03/21 - Improving Four Impairment Pt demonstrates strength impairment throughout left LE Fire Sprinkler Inspector Goal (LTG) Pt to display MMT >3+/5 through L LE LTG Duration 02/03/21 - Improving Three Impairment Pt SBA for transfers and bed mobility d/t Left Neglect Fdc Goal (LTG) Pt to demonstrate independent transfers and bed mobility with an ability to address left LE and UE 80% of the time LTG Duration Met Two Impairment Pt ambulates 280' CGA /s an AD Short Term Goal (STG) Pt to ambulate 400' SBA independently STG Duration Met Fdc Goal (LTG) Pt to ambulate 800' during 6 MWT Independently without SBA LTG Duration 02/03/21 - Improving (1347' SBA ) One Impairment Pt does not have an appropriate home exercise program Short Term Goal (STG) Pt to be independent and compliant with an appropriate HEP STG Duration Met Assessment Summary Assessment Pt continues recent trend of performing very well, demonstrating increased independence and improved balance. Physical Therapy Plan Frequency and Duration Frequency of Treatment 2x/Week Duration of Treatment 3 months Plan of Care Start Date 11/05/20 Plan of Care End Date 02/03/21 Therapeutic Interventions Therapeutic Interventions Aquatic Therapy,Balance Training,Coordination Training ,Gait Training,Home Exercise Program,Manual Therapy, Neuromuscular Re-education, Patient/Caregiver Education, Self-Care/Home Management, Therapeutic Activities, Therapeutic Exercises Modalities Cold Pack/Ice Massage,Electric Stimulation,Hot Packs, Ultrasound Next Visit Focus/Plan Next Note Type Treatment Note Next Visit Plan Continue to challenge, continue strengthening, balance and gait training with NMR. Continue deep water for cardio training and core stabilization. Focus on bilateral knee extension in shallow water gait training
--- NOTE | 2021-01-19 11:59 | PT.OTN ---
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) Physical Therapy Treatment Note PT-OP-A Visit Information Start: 09/17/19 18:00 Freq: Status: Active Protocol: Document 01/19/21 11:16 DCW (Rec: 01/19/21 11:59 DCW [id number]) Out-Patient Physical Therapy Visit Information Visit Information Visit Type Treatment Note Visit Start Time 11:16 Visit Stop Time 12:10 Total Visit Minutes 54 Visit Number 95 Number of MARINE MACHINIST Visits 0 Evaluation Information Evaluation Date 09/17/19 PT-OP-B Current Condition Start: 09/17/19 18:00 Freq: Status: Active Protocol: Document 09/17/19 12:00 DCW (Rec: 09/18/19 10:29 DCW [id number]) Current Condition History of Current Condition Onset Date 04/14/19 Current Complaints Hemiparesis secondary to CVA History of Current Condition Pt is a 69 year old male presenting to skilled outpatient physical therapy with left-side neglect, hemiparesis, loss of independence, and difficulty walking following an intraparenchymal hemorrhage on 04/14/19. Pt was transferred from [facility] to [facility], where a craniotomy was performed on 04/16/19. Pt completed 7 weeks of rehab/ recovery at [facility], and then underwent a second surgery on 06/26/19 to replace the skull fragment. Pt was then at an acute rehab facility 06/30-07/18/19, and since then has been receiving home health physical therapy. Pt presents today with limited left-sided function, left visual and physical neglect, difficulty with transfers, decreased activity tolerance, decreased gait, and many other secondary effects following his CVA. Pt has been working on ambulation with a vale walker with home health, and his states he has walked around 100' a few times, but always with a therapist, as she does not feel comfortable walking with him yet. Pt exclusively gets around at time of evaluation in a manual wheelchair. Pt's transfers have been going fairly well, with his caregivers performing CGA, however pt will occasionally need assistance with placement of his left UE and LE due to neglect. Pt's biggest complaint at the moment is leg pain, his reports they have tried PT, Massage, CBD il, Tylenol, Oxycodine, and Gabapentin, all with minimal benefit. Prior to CVA, pt was fully independent in all activities. Pt and have garegivers 8 hrs a day for assistance. Prior Treatments and Tests Craniotomy 04/16/19, Acute rehab, Skull fragment replacement 06/26/19, home health PT Prior Functional Status Baseline Function- ADL's Independent Baseline Function- Mobility Independent PT-OP-C Subjective Start: 09/17/19 18:00 Freq: Status: Active Protocol: Document 01/19/21 11:16 DCW (Rec: 01/19/21 11:59 DCW [id number]) OP-PT Subjective Patient Comments Patient Comments I feel better today than I did on Sunday. Pt notes the second Covid vaccination really hit hard for a few days . PT-OP-D Balance Start: 08/04/20 14:14 Freq: Status: Active Protocol: Document 11/05/20 12:00 DCW (Rec: 11/05/20 12:48 DCW [id number]) Balance Tests Adler Balance Test Adler Balance Test Score 44/56 Adler Impairment Rating 20 to 39% Impaired (Score 34- 44) Adler Balance Assessment Evaluation Sitting to Standing Ability Independent w/out Hands Unsupported Stance Safely- 2 minutes Sitting Unsupported, Feet on Floor Safely- 2 minutes Standing to Sitting Ability Safely, Minimal Hand Use Transfer Ability Safely, Minimal Hand Use Unsupported Stance- Eyes Closed Supervision, 10 seconds Unsupported Stance- Eyes Open Supervision to maintain Reaching Forward Standing Safely, 5 inches Pick- Up Object From Floor Independent/Safe Look Behind Shoulder - Standing Shifts Weight Unilateral Turning 360 Degrees Turns slowly, but safely Unsupported Stance, Alternating Feet on 4 Steps w/Supervision Stair Unsupported Tandem Stance Small Step- 30 seconds Unilateral Leg Stance Lifts Leg/Holds > 3 secs Total Score Adler Total Score (out of 56 points) 44 Adler Impairment Rating 20 to 39% Impaired (Score 34- 44) PT-OP-E Functional Tests Start: 05/04/20 15:15 Freq: Status: Active Protocol: Document 11/05/20 12:00 DCW (Rec: 11/05/20 12:48 DCW [id number]) Functional Tests 6 Minute Walk Test Distance 1347' Device Used none Comments 3.74 ft/sec Timed Up and Go (TUG) Score 7.88 seconds Comments 3-trial average (8.16, 7.75, 7 .73) TUG Impairment Rating 0% Impaired (Score 10) PT-OP-G Mobility & Gait Start: 09/17/19 18:00 Freq: Status: Active Protocol: Document 11/05/20 12:00 DCW (Rec: 11/05/20 12:48 DCW [id number]) OP Gait Assessment Gait Gait Assistance Required: Standby Assistance Distance (Feet) 1,347 Assistive Devices Assistive Device None Gait Deviations General Gait Pattern Antalgic,Ataxic,Decreased Feet Clearance,Flexed Trunk, Lateral Trunk Lean Factors Limiting Gait Function Factors Limiting Gait Function Abnormal Tonal Influences, Decreased Activity Tolerance, Decreased Sensation,Decreased Strength,Incoordination,Poor Balance,Poor Safety Awareness PT-OP-H Neuro Start: 09/17/19 18:00 Freq: Status: Active Protocol: Document 11/05/20 12:00 DCW (Rec: 11/05/20 12:48 DCW [id number]) Sensation Evaluation Gross Sensation Gross Sensation Left UE Impaired,Left LE Impaired Sensation Description Paresthesia,Numbness,Pain Location Details Left Leg Light Touch Impaired Sharp/Dull Impaired Deep Pressure Impaired Proprioception (Position) Impaired Kinesthesia (Movement) Impaired Deep Tendon Reflex & Clonus Assessment Deep Tendon Reflex Left Achilles Deep Tendon Reflex 3+ Normal But Brisk Left Patellar Deep Tendon Reflex 3+ Normal But Brisk Ankle Clonus Left Clonus Assessment Sustained Muscle Tone Tone Assessment Left Lower Extremity Flexor Tone Description Mild Hypotonicity PT-OP-M Strength Start: 09/17/19 18:00 Freq: Status: Active Protocol: Document 11/05/20 12:00 DCW (Rec: 11/05/20 12:48 DCW [id number]) Hip Strength Hip Manual Muscle Testing Left Flexion (L2) 4- Good- Extension (S1) 4 Good Abduction 3 Fair Adduction 4 Good External Rotation 3+ Fair+ Internal Rotation 3+ Fair+ Knee Strength Knee Manual Muscle Testing Left Flexion (S2) 4- Good- Extension (L3) 4+ Good+ Ankle/Foot Strength Ankle and Foot Manual Muscle Testing Left Dorsiflexion (L4) 4 Good Plantarflexion (S1) 3+ Fair+ Inversion 3+ Fair+ Eversion (S1) 3 Fair PT-OP-Q Treatments Start: 09/17/19 18:00 Freq: Status: Active Protocol: Document 01/19/21 11:16 DCW (Rec: 01/19/21 11:59 DCW [id number]) Gym Equipment Shuttle Recovery Unilateral Heel Raises Details Left Resistance 25# Reps/Time calf stretch at end Unilateral Squats Details Left Resistance 62# Shuttle Recovery Platform Stable Bilateral Squats Resistance 100# Shuttle Recovery Platform Stable Shuttle Balance Red Details Wide SRIDEVI, Staggered Comments Min Ax1 Gait Training Gait Activity No AD Description No AD Device Used None Level of Assistance SBA Distance/Duration 950' x1 Comments VCs to promote heel-toe gait, extend left knee during stance phase Neuro Re-Education Treatment Balance Activities Cone transfers Details Bending down ball pick-up from cone, kick cone over, ball toss to target PT-OP-R Modalities Start: 09/17/19 18:00 Freq: Status: Active Protocol: Document 01/19/21 11:16 DCW (Rec: 01/19/21 11:59 DCW [id number]) Electric Stimulation Electric Stimulation Interferential Current (IFC) Body Location L ant ankle Duration (Minutes) 15 Patient Position Sitting Combined With Heat/Cold Cold Pack PT-OP-S Aquatic Treatment Start: 09/17/19 18:00 Freq: Status: Active Protocol: Document 01/30/20 12:30 LJ (Rec: 01/30/20 14:54 LJ [id number]) Aquatics Treatment Pool Entry/Exit Pool Entry/Exit Method Lift Assistance Minimal Assistance Water Walking Slow motion Water Level Chest Level Walking Equipment wet vest, UE float, #2.5 ankle wt Level of Assistance Standby Assistance,Contact Guard Assistance,Moderate Assistance Comments emphasis on LLE extension stance phase January Water Level Chest Level Walking Equipment wet vest, UE float, #2.5 ankle wt Level of Assistance Standby Assistance,Contact Guard Assistance,Moderate Assistance,Verbal Cues Forward with emphasis on reciprocal gait pattern Water Level Chest Level Level of Assistance Standby Assistance,Contact Guard Assistance,Minimal Assistance,Verbal Cues Comments wetvest, sm float on LUE, #3. 75 ankle wt on LLE start stop walking forward and backward Water Level Chest Level Walking Equipment vest Level of Assistance Contact Guard Assistance, Verbal Cues Comments wetvest, sm float on LUE, #3. 75 ankle wt on LLE Sideways Water Level Chest Level Walking Equipment wet vest, UE float, #2.5 ankle wt Level of Assistance Standby Assistance,Contact Guard Assistance,Minimal Assistance,Verbal Cues Lower Extremity Exercises SL aquats Details HH on wall Body Position Standing Water Level Waist Level Equipment wetvest Reps/Duration 2x10 LLE Comments VC to extend knee knee extensions Details seated in lift chair Equipment Ankle Weight- 5.0# Reps/Duration 20 B Comments seated in lift SLS Details bracing LLE Body Position Standing Water Level Chest Level Equipment vest Reps/Duration 1 min marching at wall Water Level Chest Level Reps/Duration 2 min Comments opposite UE/LE tapping wall squats Body Position Standing Water Level Chest Level Reps/Duration 20x Lower Extremity Stretches adductors Comments seated in chair Gastroc Body Position Sitting Reps/Duration 2 x 45 sec B Comments manual assist hip flexors Details at wall Body Position Standing Water Level Waist Level Reps/Duration 2x45 Comments manually assisted HS Details at wall Body Position Sitting Water Level Waist Level Equipment wet vest Reps/Duration 2x45 Comments sitting in lift chair assisted Upper Extremity Exercises breastroke UE's Body Position Standing Water Level Chest Level Reps/Duration 3 min Comments during walking and deep water hor ab/ad Water Level Chest Level Comments during side walking, CGA Balance step ups Details step ups/down using boxes Body Position Standing Water Level Waist Level Equipment 8 boxes Comments mod verbal cues for coordination [place] Activities [place] Activities Bicycle,Cross Country Equipment wet vest, white noodle Duration 7 min Comments Guy and cues for vertical alignmernt. PT-OP-T Assessment and Plan Start: 09/17/19 18:00 Freq: Status: Active Protocol: Document 01/19/21 11:16 DCW (Rec: 01/19/21 11:59 DCW [id number]) Physical Therapy Assessment Impairments Impairments Activity Tolerance,Balance, Coordination,Functional Activities,Functional Mobility ,Gait,Pain,ROM,Sensation, Strength,Tone,Transfers Goals Six Impairment Decreased Static Balance Short Term Goal (STG) Pt to score <9 seconds on TUG STG Duration Met Job Placement Specialist Goal (LTG) MET - Pt to score 35/56 or better on the Adler Balance NEW GOAL - Pt to score 45/56 or better on the Adler Balance Scale LTG Duration 02/03/21 - Improvin/56 Five Impairment Pt uses R rail and step-over gait pattern ascending stairs Assisted Goal (LTG) Pt to ascend/descend stairs independently without use of rail LTG Duration 02/03/21 - Improving Four Impairment Pt demonstrates strength impairment throughout left LE Assisted Goal (LTG) Pt to display MMT >3+/5 through L LE LTG Duration 02/03/21 - Improving Three Impairment Pt SBA for transfers and bed mobility d/t Left Neglect Assisted Goal (LTG) Pt to demonstrate independent transfers and bed mobility with an ability to address left LE and UE 80% of the time LTG Duration Met Two Impairment Pt ambulates 280' CGA /s an AD Short Term Goal (STG) Pt to ambulate 400' SBA independently STG Duration Met Assisted Goal (LTG) Pt to ambulate 800' during 6 MWT Independently without SBA LTG Duration 02/03/21 - Improving (1347' SBA ) One Impairment Pt does not have an appropriate home exercise program Short Term Goal (STG) Pt to be independent and compliant with an appropriate HEP STG Duration Met Assessment Summary Assessment Pt tolerated treatment very well today, no concerns at the moment. Gait and balance improving. Physical Therapy Plan Frequency and Duration Frequency of Treatment 2x/Week Duration of Treatment 3 months Plan of Care Start Date 11/05/20 Plan of Care End Date 02/03/21 Therapeutic Interventions Therapeutic Interventions Aquatic Therapy,Balance Training,Coordination Training ,Gait Training,Home Exercise Program,Manual Therapy, Neuromuscular Re-education, Patient/Caregiver Education, Self-Care/Home Management, Therapeutic Activities, Therapeutic Exercises Modalities Cold Pack/Ice Massage,Electric Stimulation,Hot Packs, Ultrasound Next Visit Focus/Plan Next Note Type Treatment Note Next Visit Plan Continue to challenge, continue strengthening, balance and gait training with NMR. Continue deep water for cardio training and core stabilization. Focus on bilateral knee extension in shallow water gait training
--- NOTE | 2021-01-24 11:57 | PT.OTN ---
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) Physical Therapy Treatment Note PT-OP-A Visit Information Start: 09/17/19 18:00 Freq: Status: Active Protocol: Document 01/24/21 11:15 DCW (Rec: 01/24/21 11:57 DCW [id number]) Out-Patient Physical Therapy Visit Information Visit Information Visit Type Treatment Note Visit Start Time 11:15 Visit Stop Time 12:10 Total Visit Minutes 55 Visit Number 96 Number of TRAFFIC SIGNAL SUPERVISOR MAINTENANCE Visits 0 Evaluation Information Evaluation Date 09/17/19 PT-OP-B Current Condition Start: 09/17/19 18:00 Freq: Status: Active Protocol: Document 09/17/19 12:00 DCW (Rec: 09/18/19 10:29 DCW [id number]) Current Condition History of Current Condition Onset Date 04/14/19 Current Complaints Hemiparesis secondary to CVA History of Current Condition Pt is a 69 year old male presenting to skilled outpatient physical therapy with left-side neglect, hemiparesis, loss of independence, and difficulty walking following an intraparenchymal hemorrhage on 04/14/19. Pt was transferred from [facility] to [facility], where a craniotomy was performed on 04/16/19. Pt completed 7 weeks of rehab/ recovery at [facility], and then underwent a second surgery on 06/26/19 to replace the skull fragment. Pt was then at an acute rehab facility 06/30-07/18/19, and since then has been receiving home health physical therapy. Pt presents today with limited left-sided function, left visual and physical neglect, difficulty with transfers, decreased activity tolerance, decreased gait, and many other secondary effects following his CVA. Pt has been working on ambulation with a vale walker with home health, and his states he has walked around 100' a few times, but always with a therapist, as she does not feel comfortable walking with him yet. Pt exclusively gets around at time of evaluation in a manual wheelchair. Pt's transfers have been going fairly well, with his caregivers performing CGA, however pt will occasionally need assistance with placement of his left UE and LE due to neglect. Pt's biggest complaint at the moment is leg pain, his reports they have tried PT, Massage, CBD il, Tylenol, Oxycodine, and Gabapentin, all with minimal benefit. Prior to CVA, pt was fully independent in all activities. Pt and have garegivers 8 hrs a day for assistance. Prior Treatments and Tests Craniotomy 04/16/19, Acute rehab, Skull fragment replacement 06/26/19, home health PT Prior Functional Status Baseline Function- ADL's Independent Baseline Function- Mobility Independent PT-OP-C Subjective Start: 09/17/19 18:00 Freq: Status: Active Protocol: Document 01/24/21 11:15 DCW (Rec: 01/24/21 11:57 DCW [id number]) OP-PT Subjective Patient Comments Patient Comments Pt feeling pretty good today PT-OP-D Balance Start: 08/04/20 14:14 Freq: Status: Active Protocol: Document 11/05/20 12:00 DCW (Rec: 11/05/20 12:48 DCW [id number]) Balance Tests Adler Balance Test Adler Balance Test Score 44/56 Adler Impairment Rating 20 to 39% Impaired (Score 34- 44) Adler Balance Assessment Evaluation Sitting to Standing Ability Independent w/out Hands Unsupported Stance Safely- 2 minutes Sitting Unsupported, Feet on Floor Safely- 2 minutes Standing to Sitting Ability Safely, Minimal Hand Use Transfer Ability Safely, Minimal Hand Use Unsupported Stance- Eyes Closed Supervision, 10 seconds Unsupported Stance- Eyes Open Supervision to maintain Reaching Forward Standing Safely, 5 inches Pick- Up Object From Floor Independent/Safe Look Behind Shoulder - Standing Shifts Weight Unilateral Turning 360 Degrees Turns slowly, but safely Unsupported Stance, Alternating Feet on 4 Steps w/Supervision Stair Unsupported Tandem Stance Small Step- 30 seconds Unilateral Leg Stance Lifts Leg/Holds > 3 secs Total Score Adler Total Score (out of 56 points) 44 Adler Impairment Rating 20 to 39% Impaired (Score 34- 44) PT-OP-E Functional Tests Start: 05/04/20 15:15 Freq: Status: Active Protocol: Document 11/05/20 12:00 DCW (Rec: 11/05/20 12:48 DCW [id number]) Functional Tests 6 Minute Walk Test Distance 1347' Device Used none Comments 3.74 ft/sec Timed Up and Go (TUG) Score 7.88 seconds Comments 3-trial average (8.16, 7.75, 7 .73) TUG Impairment Rating 0% Impaired (Score 10) PT-OP-G Mobility & Gait Start: 09/17/19 18:00 Freq: Status: Active Protocol: Document 11/05/20 12:00 DCW (Rec: 11/05/20 12:48 DCW [id number]) OP Gait Assessment Gait Gait Assistance Required: Standby Assistance Distance (Feet) 1,347 Assistive Devices Assistive Device None Gait Deviations General Gait Pattern Antalgic,Ataxic,Decreased Feet Clearance,Flexed Trunk, Lateral Trunk Lean Factors Limiting Gait Function Factors Limiting Gait Function Abnormal Tonal Influences, Decreased Activity Tolerance, Decreased Sensation,Decreased Strength,Incoordination,Poor Balance,Poor Safety Awareness PT-OP-H Neuro Start: 09/17/19 18:00 Freq: Status: Active Protocol: Document 11/05/20 12:00 DCW (Rec: 11/05/20 12:48 DCW [id number]) Sensation Evaluation Gross Sensation Gross Sensation Left UE Impaired,Left LE Impaired Sensation Description Paresthesia,Numbness,Pain Location Details Left Leg Light Touch Impaired Sharp/Dull Impaired Deep Pressure Impaired Proprioception (Position) Impaired Kinesthesia (Movement) Impaired Deep Tendon Reflex & Clonus Assessment Deep Tendon Reflex Left Achilles Deep Tendon Reflex 3+ Normal But Brisk Left Patellar Deep Tendon Reflex 3+ Normal But Brisk Ankle Clonus Left Clonus Assessment Sustained Muscle Tone Tone Assessment Left Lower Extremity Flexor Tone Description Mild Hypotonicity PT-OP-M Strength Start: 09/17/19 18:00 Freq: Status: Active Protocol: Document 11/05/20 12:00 DCW (Rec: 11/05/20 12:48 DCW [id number]) Hip Strength Hip Manual Muscle Testing Left Flexion (L2) 4- Good- Extension (S1) 4 Good Abduction 3 Fair Adduction 4 Good External Rotation 3+ Fair+ Internal Rotation 3+ Fair+ Knee Strength Knee Manual Muscle Testing Left Flexion (S2) 4- Good- Extension (L3) 4+ Good+ Ankle/Foot Strength Ankle and Foot Manual Muscle Testing Left Dorsiflexion (L4) 4 Good Plantarflexion (S1) 3+ Fair+ Inversion 3+ Fair+ Eversion (S1) 3 Fair PT-OP-Q Treatments Start: 09/17/19 18:00 Freq: Status: Active Protocol: Document 01/24/21 11:15 DCW (Rec: 01/24/21 11:57 DCW [id number]) Gym Equipment Shuttle Recovery Unilateral Heel Raises Details Left Resistance 25# Reps/Time calf stretch at end Unilateral Squats Details Left Resistance 62# Shuttle Recovery Platform Stable Bilateral Squats Resistance 100# Shuttle Recovery Platform Stable Therapeutic Activity Therapeutic Activity 1 Name Bed mobility Comments Sidelying->sitting without UE grab bar Gait Training Gait Activity No AD Description No AD Device Used None Level of Assistance SBA Distance/Duration 940' x1 Comments VCs to promote heel-toe gait, extend left knee during stance phase Neuro Re-Education Treatment Balance Activities Hurdles Details Hurdles Comments Min Ax1 Cone transfers Details Bending down ball pick-up from cone, kick cone over, ball toss to target PT-OP-R Modalities Start: 09/17/19 18:00 Freq: Status: Active Protocol: Document 01/24/21 11:15 DCW (Rec: 01/24/21 11:57 DCW [id number]) Electric Stimulation Electric Stimulation Interferential Current (IFC) Body Location L ant ankle Duration (Minutes) 15 Patient Position Sitting Combined With Heat/Cold Cold Pack PT-OP-S Aquatic Treatment Start: 09/17/19 18:00 Freq: Status: Active Protocol: Document 01/30/20 12:30 LJ (Rec: 01/30/20 14:54 LJ [id number]) Aquatics Treatment Pool Entry/Exit Pool Entry/Exit Method Lift Assistance Minimal Assistance Water Walking Slow motion Water Level Chest Level Walking Equipment wet vest, UE float, #2.5 ankle wt Level of Assistance Standby Assistance,Contact Guard Assistance,Moderate Assistance Comments emphasis on LLE extension stance phase January Water Level Chest Level Walking Equipment wet vest, UE float, #2.5 ankle wt Level of Assistance Standby Assistance,Contact Guard Assistance,Moderate Assistance,Verbal Cues Forward with emphasis on reciprocal gait pattern Water Level Chest Level Level of Assistance Standby Assistance,Contact Guard Assistance,Minimal Assistance,Verbal Cues Comments wetvest, sm float on LUE, #3. 75 ankle wt on LLE start stop walking forward and backward Water Level Chest Level Walking Equipment vest Level of Assistance Contact Guard Assistance, Verbal Cues Comments wetvest, sm float on LUE, #3. 75 ankle wt on LLE Sideways Water Level Chest Level Walking Equipment wet vest, UE float, #2.5 ankle wt Level of Assistance Standby Assistance,Contact Guard Assistance,Minimal Assistance,Verbal Cues Lower Extremity Exercises SL aquats Details HH on wall Body Position Standing Water Level Waist Level Equipment wetvest Reps/Duration 2x10 LLE Comments VC to extend knee knee extensions Details seated in lift chair Equipment Ankle Weight- 5.0# Reps/Duration 20 B Comments seated in lift SLS Details bracing LLE Body Position Standing Water Level Chest Level Equipment vest Reps/Duration 1 min marching at wall Water Level Chest Level Reps/Duration 2 min Comments opposite UE/LE tapping wall squats Body Position Standing Water Level Chest Level Reps/Duration 20x Lower Extremity Stretches adductors Comments seated in chair Gastroc Body Position Sitting Reps/Duration 2 x 45 sec B Comments manual assist hip flexors Details at wall Body Position Standing Water Level Waist Level Reps/Duration 2x45 Comments manually assisted HS Details at wall Body Position Sitting Water Level Waist Level Equipment wet vest Reps/Duration 2x45 Comments sitting in lift chair assisted Upper Extremity Exercises breastroke UE's Body Position Standing Water Level Chest Level Reps/Duration 3 min Comments during walking and deep water hor ab/ad Water Level Chest Level Comments during side walking, CGA Balance step ups Details step ups/down using boxes Body Position Standing Water Level Waist Level Equipment 8 boxes Comments mod verbal cues for coordination Clothier Activities Clothier Activities Bicycle,Cross Country Equipment wet vest, white noodle Duration 7 min Comments Guy and cues for vertical alignmernt. PT-OP-T Assessment and Plan Start: 09/17/19 18:00 Freq: Status: Active Protocol: Document 01/24/21 11:15 DCW (Rec: 01/24/21 11:57 DCW [id number]) Physical Therapy Assessment Impairments Impairments Activity Tolerance,Balance, Coordination,Functional Activities,Functional Mobility ,Gait,Pain,ROM,Sensation, Strength,Tone,Transfers Goals Six Impairment Decreased Static Balance Short Term Goal (STG) Pt to score <9 seconds on TUG STG Duration Met Chcf Goal (LTG) MET - Pt to score 35/56 or better on the Adler Balance NEW GOAL - Pt to score 45/56 or better on the Adler Balance Scale LTG Duration 02/03/21 - Improvin/56 Five Impairment Pt uses R rail and step-over gait pattern ascending stairs Chcf Goal (LTG) Pt to ascend/descend stairs independently without use of rail LTG Duration 02/03/21 - Improving Four Impairment Pt demonstrates strength impairment throughout left LE Chcf Goal (LTG) Pt to display MMT >3+/5 through L LE LTG Duration 02/03/21 - Improving Three Impairment Pt SBA for transfers and bed mobility d/t Left Neglect Carrier Loader Goal (LTG) Pt to demonstrate independent transfers and bed mobility with an ability to address left LE and UE 80% of the time LTG Duration Met Two Impairment Pt ambulates 280' CGA /s an AD Short Term Goal (STG) Pt to ambulate 400' SBA independently STG Duration Met Chcf Goal (LTG) Pt to ambulate 800' during 6 MWT Independently without SBA LTG Duration 02/03/21 - Improving (1347' SBA ) One Impairment Pt does not have an appropriate home exercise program Short Term Goal (STG) Pt to be independent and compliant with an appropriate HEP STG Duration Met Assessment Summary Assessment Pt mentioned he and his had been talking about going on an overnight trip, but he was worried about getting out of bed without using his grab bar from home. Practiced in clinic, and pt did very well with no difficulties or safety issues. Physical Therapy Plan Frequency and Duration Frequency of Treatment 2x/Week Duration of Treatment 3 months Plan of Care Start Date 11/05/20 Plan of Care End Date 02/03/21 Therapeutic Interventions Therapeutic Interventions Aquatic Therapy,Balance Training,Coordination Training ,Gait Training,Home Exercise Program,Manual Therapy, Neuromuscular Re-education, Patient/Caregiver Education, Self-Care/Home Management, Therapeutic Activities, Therapeutic Exercises Modalities Cold Pack/Ice Massage,Electric Stimulation,Hot Packs, Ultrasound Next Visit Focus/Plan Next Note Type Treatment Note Next Visit Plan Continue to challenge, continue strengthening, balance and gait training with NMR. Continue deep water for cardio training and core stabilization. Focus on bilateral knee extension in shallow water gait training
--- NOTE | 2021-01-26 12:00 | PT.OTN ---
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) Physical Therapy Treatment Note PT-OP-A Visit Information Start: 09/17/19 18:00 Freq: Status: Active Protocol: Document 01/26/21 11:15 DCW (Rec: 01/26/21 12:00 DCW [id number]) Out-Patient Physical Therapy Visit Information Visit Information Visit Type Treatment Note Visit Start Time 11:15 Visit Stop Time 12:10 Total Visit Minutes 55 Visit Number 97 Number of X RAY EQUIPMENT SERVICER Visits 0 Evaluation Information Evaluation Date 09/17/19 PT-OP-B Current Condition Start: 09/17/19 18:00 Freq: Status: Active Protocol: Document 09/17/19 12:00 DCW (Rec: 09/18/19 10:29 DCW [id number]) Current Condition History of Current Condition Onset Date 04/14/19 Current Complaints Hemiparesis secondary to CVA History of Current Condition Pt is a 69 year old male presenting to skilled outpatient physical therapy with left-side neglect, hemiparesis, loss of independence, and difficulty walking following an intraparenchymal hemorrhage on 04/14/19. Pt was transferred from [facility] to [facility], where a craniotomy was performed on 04/16/19. Pt completed 7 weeks of rehab/ recovery at [facility], and then underwent a second surgery on 06/26/19 to replace the skull fragment. Pt was then at an acute rehab facility 06/30-07/18/19, and since then has been receiving home health physical therapy. Pt presents today with limited left-sided function, left visual and physical neglect, difficulty with transfers, decreased activity tolerance, decreased gait, and many other secondary effects following his CVA. Pt has been working on ambulation with a vale walker with home health, and his states he has walked around 100' a few times, but always with a therapist, as she does not feel comfortable walking with him yet. Pt exclusively gets around at time of evaluation in a manual wheelchair. Pt's transfers have been going fairly well, with his caregivers performing CGA, however pt will occasionally need assistance with placement of his left UE and LE due to neglect. Pt's biggest complaint at the moment is leg pain, his reports they have tried PT, Massage, CBD il, Tylenol, Oxycodine, and Gabapentin, all with minimal benefit. Prior to CVA, pt was fully independent in all activities. Pt and have garegivers 8 hrs a day for assistance. Prior Treatments and Tests Craniotomy 04/16/19, Acute rehab, Skull fragment replacement 06/26/19, home health PT Prior Functional Status Baseline Function- ADL's Independent Baseline Function- Mobility Independent PT-OP-C Subjective Start: 09/17/19 18:00 Freq: Status: Active Protocol: Document 01/26/21 11:15 DCW (Rec: 01/26/21 12:00 DCW [id number]) OP-PT Subjective Patient Comments Patient Comments Pt reports he has recently seen an ENT, and discovered he had poylps in his sinuses, which he believes is the cause of his SOB during gait. PT-OP-D Balance Start: 08/04/20 14:14 Freq: Status: Active Protocol: Document 11/05/20 12:00 DCW (Rec: 11/05/20 12:48 DCW [id number]) Balance Tests Adler Balance Test Adler Balance Test Score 44/56 Adler Impairment Rating 20 to 39% Impaired (Score 34- 44) Adler Balance Assessment Evaluation Sitting to Standing Ability Independent w/out Hands Unsupported Stance Safely- 2 minutes Sitting Unsupported, Feet on Floor Safely- 2 minutes Standing to Sitting Ability Safely, Minimal Hand Use Transfer Ability Safely, Minimal Hand Use Unsupported Stance- Eyes Closed Supervision, 10 seconds Unsupported Stance- Eyes Open Supervision to maintain Reaching Forward Standing Safely, 5 inches Pick- Up Object From Floor Independent/Safe Look Behind Shoulder - Standing Shifts Weight Unilateral Turning 360 Degrees Turns slowly, but safely Unsupported Stance, Alternating Feet on 4 Steps w/Supervision Stair Unsupported Tandem Stance Small Step- 30 seconds Unilateral Leg Stance Lifts Leg/Holds > 3 secs Total Score Adler Total Score (out of 56 points) 44 Adler Impairment Rating 20 to 39% Impaired (Score 34- 44) PT-OP-E Functional Tests Start: 05/04/20 15:15 Freq: Status: Active Protocol: Document 11/05/20 12:00 DCW (Rec: 11/05/20 12:48 DCW [id number]) Functional Tests 6 Minute Walk Test Distance 1347' Device Used none Comments 3.74 ft/sec Timed Up and Go (TUG) Score 7.88 seconds Comments 3-trial average (8.16, 7.75, 7 .73) TUG Impairment Rating 0% Impaired (Score 10) PT-OP-G Mobility & Gait Start: 09/17/19 18:00 Freq: Status: Active Protocol: Document 11/05/20 12:00 DCW (Rec: 11/05/20 12:48 DCW [id number]) OP Gait Assessment Gait Gait Assistance Required: Standby Assistance Distance (Feet) 1,347 Assistive Devices Assistive Device None Gait Deviations General Gait Pattern Antalgic,Ataxic,Decreased Feet Clearance,Flexed Trunk, Lateral Trunk Lean Factors Limiting Gait Function Factors Limiting Gait Function Abnormal Tonal Influences, Decreased Activity Tolerance, Decreased Sensation,Decreased Strength,Incoordination,Poor Balance,Poor Safety Awareness PT-OP-H Neuro Start: 09/17/19 18:00 Freq: Status: Active Protocol: Document 11/05/20 12:00 DCW (Rec: 11/05/20 12:48 DCW [id number]) Sensation Evaluation Gross Sensation Gross Sensation Left UE Impaired,Left LE Impaired Sensation Description Paresthesia,Numbness,Pain Location Details Left Leg Light Touch Impaired Sharp/Dull Impaired Deep Pressure Impaired Proprioception (Position) Impaired Kinesthesia (Movement) Impaired Deep Tendon Reflex & Clonus Assessment Deep Tendon Reflex Left Achilles Deep Tendon Reflex 3+ Normal But Brisk Left Patellar Deep Tendon Reflex 3+ Normal But Brisk Ankle Clonus Left Clonus Assessment Sustained Muscle Tone Tone Assessment Left Lower Extremity Flexor Tone Description Mild Hypotonicity PT-OP-M Strength Start: 09/17/19 18:00 Freq: Status: Active Protocol: Document 11/05/20 12:00 DCW (Rec: 11/05/20 12:48 DCW [id number]) Hip Strength Hip Manual Muscle Testing Left Flexion (L2) 4- Good- Extension (S1) 4 Good Abduction 3 Fair Adduction 4 Good External Rotation 3+ Fair+ Internal Rotation 3+ Fair+ Knee Strength Knee Manual Muscle Testing Left Flexion (S2) 4- Good- Extension (L3) 4+ Good+ Ankle/Foot Strength Ankle and Foot Manual Muscle Testing Left Dorsiflexion (L4) 4 Good Plantarflexion (S1) 3+ Fair+ Inversion 3+ Fair+ Eversion (S1) 3 Fair PT-OP-Q Treatments Start: 09/17/19 18:00 Freq: Status: Active Protocol: Document 01/26/21 11:15 DCW (Rec: 01/26/21 12:00 DCW [id number]) Gym Equipment Shuttle Recovery Unilateral Heel Raises Details Left Resistance 25# Reps/Time calf stretch at end Unilateral Squats Details Left Resistance 62# Shuttle Recovery Platform Stable Bilateral Squats Resistance 100# Shuttle Recovery Platform Stable Gait Training Gait Activity No AD Description No AD Device Used None Level of Assistance SBA Distance/Duration 950' x1 Comments VCs to promote heel-toe gait, extend left knee during stance phase Neuro Re-Education Treatment Balance Activities Hurdles Details Hurdles Comments Min Ax1 Cone transfers Details Bending down ball pick-up from cone, kick cone over, ball toss to target PT-OP-R Modalities Start: 09/17/19 18:00 Freq: Status: Active Protocol: Document 01/26/21 11:15 DCW (Rec: 01/26/21 12:00 DCW [id number]) Electric Stimulation Electric Stimulation Interferential Current (IFC) Body Location L ant ankle Duration (Minutes) 15 Patient Position Sitting Combined With Heat/Cold Cold Pack PT-OP-S Aquatic Treatment Start: 09/17/19 18:00 Freq: Status: Active Protocol: Document 01/30/20 12:30 LJ (Rec: 01/30/20 14:54 LJ [id number]) Aquatics Treatment Pool Entry/Exit Pool Entry/Exit Method Lift Assistance Minimal Assistance Water Walking Slow motion Water Level Chest Level Walking Equipment wet vest, UE float, #2.5 ankle wt Level of Assistance Standby Assistance,Contact Guard Assistance,Moderate Assistance Comments emphasis on LLE extension stance phase January Water Level Chest Level Walking Equipment wet vest, UE float, #2.5 ankle wt Level of Assistance Standby Assistance,Contact Guard Assistance,Moderate Assistance,Verbal Cues Forward with emphasis on reciprocal gait pattern Water Level Chest Level Level of Assistance Standby Assistance,Contact Guard Assistance,Minimal Assistance,Verbal Cues Comments wetvest, sm float on LUE, #3. 75 ankle wt on LLE start stop walking forward and backward Water Level Chest Level Walking Equipment vest Level of Assistance Contact Guard Assistance, Verbal Cues Comments wetvest, sm float on LUE, #3. 75 ankle wt on LLE Sideways Water Level Chest Level Walking Equipment wet vest, UE float, #2.5 ankle wt Level of Assistance Standby Assistance,Contact Guard Assistance,Minimal Assistance,Verbal Cues Lower Extremity Exercises SL aquats Details HH on wall Body Position Standing Water Level Waist Level Equipment wetvest Reps/Duration 2x10 LLE Comments VC to extend knee knee extensions Details seated in lift chair Equipment Ankle Weight- 5.0# Reps/Duration 20 B Comments seated in lift SLS Details bracing LLE Body Position Standing Water Level Chest Level Equipment vest Reps/Duration 1 min marching at wall Water Level Chest Level Reps/Duration 2 min Comments opposite UE/LE tapping wall squats Body Position Standing Water Level Chest Level Reps/Duration 20x Lower Extremity Stretches adductors Comments seated in chair Gastroc Body Position Sitting Reps/Duration 2 x 45 sec B Comments manual assist hip flexors Details at wall Body Position Standing Water Level Waist Level Reps/Duration 2x45 Comments manually assisted HS Details at wall Body Position Sitting Water Level Waist Level Equipment wet vest Reps/Duration 2x45 Comments sitting in lift chair assisted Upper Extremity Exercises breastroke UE's Body Position Standing Water Level Chest Level Reps/Duration 3 min Comments during walking and deep water hor ab/ad Water Level Chest Level Comments during side walking, CGA Balance step ups Details step ups/down using boxes Body Position Standing Water Level Waist Level Equipment 8 boxes Comments mod verbal cues for coordination [place] Activities [place] Activities Bicycle,Cross Country Equipment wet vest, white noodle Duration 7 min Comments Guy and cues for vertical alignmernt. PT-OP-T Assessment and Plan Start: 09/17/19 18:00 Freq: Status: Active Protocol: Document 01/26/21 11:15 DCW (Rec: 01/26/21 12:00 DCW [id number]) Physical Therapy Assessment Impairments Impairments Activity Tolerance,Balance, Coordination,Functional Activities,Functional Mobility ,Gait,Pain,ROM,Sensation, Strength,Tone,Transfers Goals Six Impairment Decreased Static Balance Short Term Goal (STG) Pt to score <9 seconds on TUG STG Duration Met Wind Turbine Electrical Engineer Goal (LTG) MET - Pt to score 35/56 or better on the Adler Balance NEW GOAL - Pt to score 45/56 or better on the Adler Balance Scale LTG Duration 02/03/21 - Improvin/56 Five Impairment Pt uses R rail and step-over gait pattern ascending stairs Snf Goal (LTG) Pt to ascend/descend stairs independently without use of rail LTG Duration 02/03/21 - Improving Four Impairment Pt demonstrates strength impairment throughout left LE Wind Turbine Electrical Engineer Goal (LTG) Pt to display MMT >3+/5 through L LE LTG Duration 02/03/21 - Improving Three Impairment Pt SBA for transfers and bed mobility d/t Left Neglect Snf Goal (LTG) Pt to demonstrate independent transfers and bed mobility with an ability to address left LE and UE 80% of the time LTG Duration Met Two Impairment Pt ambulates 280' CGA /s an AD Short Term Goal (STG) Pt to ambulate 400' SBA independently STG Duration Met Wind Turbine Electrical Engineer Goal (LTG) Pt to ambulate 800' during 6 MWT Independently without SBA LTG Duration 02/03/21 - Improving (1347' SBA ) One Impairment Pt does not have an appropriate home exercise program Short Term Goal (STG) Pt to be independent and compliant with an appropriate HEP STG Duration Met Assessment Summary Assessment Pt takes instruction well, was struggling with hurdles today , however after therapist explained what was happening to cause him to kick the denys, pt was able to correct and do very well afterward. Physical Therapy Plan Frequency and Duration Frequency of Treatment 2x/Week Duration of Treatment 3 months Plan of Care Start Date 11/05/20 Plan of Care End Date 02/03/21 Therapeutic Interventions Therapeutic Interventions Aquatic Therapy,Balance Training,Coordination Training ,Gait Training,Home Exercise Program,Manual Therapy, Neuromuscular Re-education, Patient/Caregiver Education, Self-Care/Home Management, Therapeutic Activities, Therapeutic Exercises Modalities Cold Pack/Ice Massage,Electric Stimulation,Hot Packs, Ultrasound Next Visit Focus/Plan Next Note Type Treatment Note Next Visit Plan Continue to challenge, continue strengthening, balance and gait training with NMR. Continue deep water for cardio training and core stabilization. Focus on bilateral knee extension in shallow water gait training
--- NOTE | 2021-01-31 11:58 | PT.OTN ---
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) Physical Therapy Treatment Note PT-OP-A Visit Information Start: 09/17/19 18:00 Freq: Status: Active Protocol: Document 01/31/21 11:22 DCW (Rec: 01/31/21 11:58 DCW [id number]) Out-Patient Physical Therapy Visit Information Visit Information Visit Type Treatment Note Visit Start Time 11:22 Visit Stop Time 12:10 Total Visit Minutes 48 Visit Number 98 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 Pt was transferred from [facility] to [facility], where a craniotomy was performed on 04/16/19. Pt completed 7 weeks of rehab/ recovery at [facility], and then underwent a second surgery on 06/26/19 to replace the skull fragment. Pt was then at an acute rehab facility 06/30-07/18/19, and since then has been receiving home health physical therapy. Pt presents today with limited left-sided function, left visual and physical neglect, difficulty with transfers, decreased activity tolerance, decreased gait, and many other secondary effects following his CVA. Pt has been working on ambulation with a vale walker with home health, and his states he has walked around 100' a few times, but always with a therapist, as she does not feel comfortable walking with him yet. Pt exclusively gets around at time of evaluation in a manual wheelchair. Pt's transfers have been going fairly well, with his caregivers performing CGA, however pt will occasionally need assistance with placement of his left UE and LE due to neglect. Pt's biggest complaint at the moment is leg pain, his reports they have tried PT, Massage, CBD il, Tylenol, Oxycodine, and Gabapentin, all with minimal benefit. Prior to CVA, pt was fully independent in all activities. Pt and have garegivers 8 hrs a day for assistance. Prior Treatments and Tests Craniotomy 04/16/19, Acute rehab, Skull fragment replacement 06/26/19, home health PT Prior Functional Status Baseline Function- ADL's Independent Baseline Function- Mobility Independent PT-OP-C Subjective Start: 09/17/19 18:00 Freq: Status: Active Protocol: Document 01/31/21 11:22 DCW (Rec: 01/31/21 11:58 DCW [id number]) OP-PT Subjective Patient Comments Patient Comments Pt feels like he is doing well today. PT-OP-D Balance Start: 08/04/20 14:14 Freq: Status: Active Protocol: Document 11/05/20 12:00 DCW (Rec: 11/05/20 12:48 DCW [id number]) Balance Tests Adler Balance Test Adler Balance Test Score 44/56 Adler Impairment Rating 20 to 39% Impaired (Score 34- 44) Adler Balance Assessment Evaluation Sitting to Standing Ability Independent w/out Hands Unsupported Stance Safely- 2 minutes Sitting Unsupported, Feet on Floor Safely- 2 minutes Standing to Sitting Ability Safely, Minimal Hand Use Transfer Ability Safely, Minimal Hand Use Unsupported Stance- Eyes Closed Supervision, 10 seconds Unsupported Stance- Eyes Open Supervision to maintain Reaching Forward Standing Safely, 5 inches Pick- Up Object From Floor Independent/Safe Look Behind Shoulder - Standing Shifts Weight Unilateral Turning 360 Degrees Turns slowly, but safely Unsupported Stance, Alternating Feet on 4 Steps w/Supervision Stair Unsupported Tandem Stance Small Step- 30 seconds Unilateral Leg Stance Lifts Leg/Holds > 3 secs Total Score Adler Total Score (out of 56 points) 44 Adler Impairment Rating 20 to 39% Impaired (Score 34- 44) PT-OP-E Functional Tests Start: 05/04/20 15:15 Freq: Status: Active Protocol: Document 11/05/20 12:00 DCW (Rec: 11/05/20 12:48 DCW [id number]) Functional Tests 6 Minute Walk Test Distance 1347' Device Used none Comments 3.74 ft/sec Timed Up and Go (TUG) Score 7.88 seconds Comments 3-trial average (8.16, 7.75, 7 .73) TUG Impairment Rating 0% Impaired (Score 10) PT-OP-G Mobility & Gait Start: 09/17/19 18:00 Freq: Status: Active Protocol: Document 11/05/20 12:00 DCW (Rec: 11/05/20 12:48 DCW [id number]) OP Gait Assessment Gait Gait Assistance Required: Standby Assistance Distance (Feet) 1,347 Assistive Devices Assistive Device None Gait Deviations General Gait Pattern Antalgic,Ataxic,Decreased Feet Clearance,Flexed Trunk, Lateral Trunk Lean Factors Limiting Gait Function Factors Limiting Gait Function Abnormal Tonal Influences, Decreased Activity Tolerance, Decreased Sensation,Decreased Strength,Incoordination,Poor Balance,Poor Safety Awareness PT-OP-H Neuro Start: 09/17/19 18:00 Freq: Status: Active Protocol: Document 11/05/20 12:00 DCW (Rec: 11/05/20 12:48 DCW [id number]) Sensation Evaluation Gross Sensation Gross Sensation Left UE Impaired,Left LE Impaired Sensation Description Paresthesia,Numbness,Pain Location Details Left Leg Light Touch Impaired Sharp/Dull Impaired Deep Pressure Impaired Proprioception (Position) Impaired Kinesthesia (Movement) Impaired Deep Tendon Reflex & Clonus Assessment Deep Tendon Reflex Left Achilles Deep Tendon Reflex 3+ Normal But Brisk Left Patellar Deep Tendon Reflex 3+ Normal But Brisk Ankle Clonus Left Clonus Assessment Sustained Muscle Tone Tone Assessment Left Lower Extremity Flexor Tone Description Mild Hypotonicity PT-OP-M Strength Start: 09/17/19 18:00 Freq: Status: Active Protocol: Document 11/05/20 12:00 DCW (Rec: 11/05/20 12:48 DCW [id number]) Hip Strength Hip Manual Muscle Testing Left Flexion (L2) 4- Good- Extension (S1) 4 Good Abduction 3 Fair Adduction 4 Good External Rotation 3+ Fair+ Internal Rotation 3+ Fair+ Knee Strength Knee Manual Muscle Testing Left Flexion (S2) 4- Good- Extension (L3) 4+ Good+ Ankle/Foot Strength Ankle and Foot Manual Muscle Testing Left Dorsiflexion (L4) 4 Good Plantarflexion (S1) 3+ Fair+ Inversion 3+ Fair+ Eversion (S1) 3 Fair PT-OP-Q Treatments Start: 09/17/19 18:00 Freq: Status: Active Protocol: Document 01/31/21 11:22 DCW (Rec: 01/31/21 11:58 DCW [id number]) Gym Equipment Shuttle Recovery Unilateral Heel Raises Details Left Resistance 25# Reps/Time calf stretch at end Unilateral Squats Details Left Resistance 62# Shuttle Recovery Platform Stable Bilateral Squats Resistance 100# Shuttle Recovery Platform Stable Gait Training Gait Activity No AD Description No AD Device Used None Level of Assistance SBA Distance/Duration 930' x1 Comments VCs to promote heel-toe gait, extend left knee during stance phase Neuro Re-Education Treatment Balance Activities Hurdles Details Hurdles Comments Min Ax1 Cone transfers Details Bending down ball pick-up from cone, kick cone over, ball toss to target PT-OP-R Modalities Start: 09/17/19 18:00 Freq: Status: Active Protocol: Document 01/31/21 11:22 DCW (Rec: 01/31/21 11:58 DCW [id number]) Electric Stimulation Electric Stimulation Interferential Current (IFC) Body Location L ant ankle Duration (Minutes) 15 Patient Position Sitting Combined With Heat/Cold Cold Pack PT-OP-S Aquatic Treatment Start: 09/17/19 18:00 Freq: Status: Active Protocol: Document 01/30/20 12:30 LJ (Rec: 01/30/20 14:54 LJ [id number]) Aquatics Treatment Pool Entry/Exit Pool Entry/Exit Method Lift Assistance Minimal Assistance Water Walking Slow motion Water Level Chest Level Walking Equipment wet vest, UE float, #2.5 ankle wt Level of Assistance Standby Assistance,Contact Guard Assistance,Moderate Assistance Comments emphasis on LLE extension stance phase January Water Level Chest Level Walking Equipment wet vest, UE float, #2.5 ankle wt Level of Assistance Standby Assistance,Contact Guard Assistance,Moderate Assistance,Verbal Cues Forward with emphasis on reciprocal gait pattern Water Level Chest Level Level of Assistance Standby Assistance,Contact Guard Assistance,Minimal Assistance,Verbal Cues Comments wetvest, sm float on LUE, #3. 75 ankle wt on LLE start stop walking forward and backward Water Level Chest Level Walking Equipment vest Level of Assistance Contact Guard Assistance, Verbal Cues Comments wetvest, sm float on LUE, #3. 75 ankle wt on LLE Sideways Water Level Chest Level Walking Equipment wet vest, UE float, #2.5 ankle wt Level of Assistance Standby Assistance,Contact Guard Assistance,Minimal Assistance,Verbal Cues Lower Extremity Exercises SL aquats Details HH on wall Body Position Standing Water Level Waist Level Equipment wetvest Reps/Duration 2x10 LLE Comments VC to extend knee knee extensions Details seated in lift chair Equipment Ankle Weight- 5.0# Reps/Duration 20 B Comments seated in lift SLS Details bracing LLE Body Position Standing Water Level Chest Level Equipment vest Reps/Duration 1 min marching at wall Water Level Chest Level Reps/Duration 2 min Comments opposite UE/LE tapping wall squats Body Position Standing Water Level Chest Level Reps/Duration 20x Lower Extremity Stretches adductors Comments seated in chair Gastroc Body Position Sitting Reps/Duration 2 x 45 sec B Comments manual assist hip flexors Details at wall Body Position Standing Water Level Waist Level Reps/Duration 2x45 Comments manually assisted HS Details at wall Body Position Sitting Water Level Waist Level Equipment wet vest Reps/Duration 2x45 Comments sitting in lift chair assisted Upper Extremity Exercises breastroke UE's Body Position Standing Water Level Chest Level Reps/Duration 3 min Comments during walking and deep water hor ab/ad Water Level Chest Level Comments during side walking, CGA Balance step ups Details step ups/down using boxes Body Position Standing Water Level Waist Level Equipment 8 boxes Comments mod verbal cues for coordination [place] Activities [place] Activities Bicycle,Cross Country Equipment wet vest, white noodle Duration 7 min Comments Guy and cues for vertical alignmernt. PT-OP-T Assessment and Plan Start: 09/17/19 18:00 Freq: Status: Active Protocol: Document 01/31/21 11:22 DCW (Rec: 01/31/21 11:58 DCW [id number]) Physical Therapy Assessment Impairments Impairments Activity Tolerance,Balance, Coordination,Functional Activities,Functional Mobility ,Gait,Pain,ROM,Sensation, Strength,Tone,Transfers Goals Six Impairment Decreased Static Balance Short Term Goal (STG) Pt to score <9 seconds on TUG STG Duration Met Jail Goal (LTG) MET - Pt to score 35/56 or better on the Adler Balance NEW GOAL - Pt to score 45/56 or better on the Adler Balance Scale LTG Duration 02/03/21 - Improvin/56 Five Impairment Pt uses R rail and step-over gait pattern ascending stairs Automatic Hemmer Goal (LTG) Pt to ascend/descend stairs independently without use of rail LTG Duration 02/03/21 - Improving Four Impairment Pt demonstrates strength impairment throughout left LE Jail Goal (LTG) Pt to display MMT >3+/5 through L LE LTG Duration 02/03/21 - Improving Three Impairment Pt SBA for transfers and bed mobility d/t Left Neglect Automatic Hemmer Goal (LTG) Pt to demonstrate independent transfers and bed mobility with an ability to address left LE and UE 80% of the time LTG Duration Met Two Impairment Pt ambulates 280' CGA /s an AD Short Term Goal (STG) Pt to ambulate 400' SBA independently STG Duration Met Automatic Hemmer Goal (LTG) Pt to ambulate 800' during 6 MWT Independently without SBA LTG Duration 02/03/21 - Improving (1347' SBA ) One Impairment Pt does not have an appropriate home exercise program Short Term Goal (STG) Pt to be independent and compliant with an appropriate HEP STG Duration Met Assessment Summary Assessment Pt ran into gym equipment today, just didn't see it on his left side. Pt was able to self-correct balance, was in no danger of fall/LOB. Reinforced idea of scanning visually. Physical Therapy Plan Frequency and Duration Frequency of Treatment 2x/Week Duration of Treatment 3 months Plan of Care Start Date 11/05/20 Plan of Care End Date 02/03/21 Therapeutic Interventions Therapeutic Interventions Aquatic Therapy,Balance Training,Coordination Training ,Gait Training,Home Exercise Program,Manual Therapy, Neuromuscular Re-education, Patient/Caregiver Education, Self-Care/Home Management, Therapeutic Activities, Therapeutic Exercises Modalities Cold Pack/Ice Massage,Electric Stimulation,Hot Packs, Ultrasound Next Visit Focus/Plan Next Note Type Progress Note Next Visit Plan Prog note
--- NOTE | 2021-02-02 12:47 | PT.OTN ---
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) Physical Therapy Treatment Note PT-OP-A Visit Information Start: 09/17/19 18:00 Freq: Status: Active Protocol: Document 02/09/21 09:32 DCW (Rec: 02/02/21 12:17 DCW [id number]) Out-Patient Physical Therapy Visit Information Visit Information Visit Type Progress Note Visit Start Time 11:15 Visit Stop Time 12:15 Total Visit Minutes 60 Visit Number 99 Number of SERVICE STATION CONSOLE OPERATOR Visits 0 Evaluation Information Evaluation Date 09/17/19 PT-OP-B Current Condition Start: 09/17/19 18:00 Freq: Status: Active Protocol: Document 09/17/19 12:00 DCW (Rec: 09/18/19 10:29 DCW [id number]) Current Condition History of Current Condition Onset Date 04/14/19 Current Complaints Hemiparesis secondary to CVA History of Current Condition Pt is a 69 year old male presenting to skilled outpatient physical therapy with left-side neglect, hemiparesis, loss of independence, and difficulty walking following an intraparenchymal hemorrhage on 04/14/19. Pt was [facility], where a craniotomy was performed on 04/16/19. Pt completed 7 weeks of rehab/ recovery at [facility], and then underwent a second surgery on 06/26/19 to replace the skull fragment. Pt was then at an acute rehab facility 06/30-07/18/19, and since then has been receiving home health physical therapy. Pt presents today with limited left-sided function, left visual and physical neglect, difficulty with transfers, decreased activity tolerance, decreased gait, and many other secondary effects following his CVA. Pt has been working on ambulation with a vale walker with home health, and his states he has walked around 100' a few times, but always with a therapist, as she does not feel comfortable walking with him yet. Pt exclusively gets around at time of evaluation in a manual wheelchair. Pt's transfers have been going fairly well, with his caregivers performing CGA, however pt will occasionally need assistance with placement of his left UE and LE due to neglect. Pt's biggest complaint at the moment is leg pain, his reports they have tried PT, Massage, CBD il, Tylenol, Oxycodine, and Gabapentin, all with minimal benefit. Prior to CVA, pt was fully independent in all activities. Pt and have garegivers 8 hrs a day for assistance. Prior Treatments and Tests Craniotomy 04/16/19, Acute rehab, Skull fragment replacement 06/26/19, home health PT Prior Functional Status Baseline Function- ADL's Independent Baseline Function- Mobility Independent PT-OP-C Subjective Start: 09/17/19 18:00 Freq: Status: Active Protocol: Document 02/09/21 09:33 DCW (Rec: 02/02/21 12:17 DCW [id number]) OP-PT Subjective Patient Comments Patient Comments Pt both excited and nervous about his reassessment today. PT-OP-D Balance Start: 08/04/20 14:14 Freq: Status: Active Protocol: Document 02/02/21 11:15 DCW (Rec: 02/02/21 11:56 DCW [id number]) Balance Tests Adler Balance Test Adler Balance Test Score 49/56 Adler Impairment Rating 1 to 19% Impaired (Score 45-55 ) Adler Balance Assessment Evaluation Sitting to Standing Ability Independent w/out Hands Unsupported Stance Safely- 2 minutes Sitting Unsupported, Feet on Floor Safely- 2 minutes Standing to Sitting Ability Safely, Minimal Hand Use Transfer Ability Safely, Minimal Hand Use Unsupported Stance- Eyes Closed Safely, 10 seconds Unsupported Stance- Eyes Open Independent, 1 minute Reaching Forward Standing Confidently, 10 inches Pick- Up Object From Floor Independent/Safe Look Behind Shoulder - Standing Shifts Weight Well Turning 360 Degrees Turns , < 4 secs Unsupported Stance, Alternating Feet on 4 Steps w/Supervision Stair Unsupported Tandem Stance Holds Tandem- 30 seconds Unilateral Leg Stance Lifts Leg/Unable to Hold Total Score Adler Total Score (out of 56 points) 49 Adler Impairment Rating 1 to 19% Impaired (Score 45-55 ) PT-OP-E Functional Tests Start: 05/04/20 15:15 Freq: Status: Active Protocol: Document 02/02/21 11:15 DCW (Rec: 02/02/21 11:56 DCW [id number]) Functional Tests 6 Minute Walk Test Distance 1374 Device Used none Comments 3.82 ft/sec Timed Up and Go (TUG) Score 8.2 seconds Comments 3-trial average (8.58, 8.35, 7 .67) TUG Impairment Rating 0% Impaired (Score 10) PT-OP-G Mobility & Gait Start: 09/17/19 18:00 Freq: Status: Active Protocol: Document 02/02/21 11:15 DCW (Rec: 02/02/21 11:56 DCW [id number]) OP Gait Assessment Gait Gait Assistance Required: Standby Assistance Distance (Feet) 1,374 Assistive Devices Assistive Device None Gait Deviations General Gait Pattern Antalgic,Ataxic,Flexed Trunk Factors Limiting Gait Function Factors Limiting Gait Function Abnormal Tonal Influences, Decreased Activity Tolerance, Decreased Sensation,Decreased Strength Stair Climbing Evaluation Evaluation Level of Assist On Stairs Standby Assistance Devices Stair Climbing Assistive Devices Right Railing Technique/Endurance Stair Climbing Direction Ascend and Descend Stair Climbing Technique Step Over Step Number of Steps Climbed 4 PT-OP-H Neuro Start: 09/17/19 18:00 Freq: Status: Active Protocol: Document 02/02/21 11:15 DCW (Rec: 02/02/21 11:56 DCW [id number]) Deep Tendon Reflex & Clonus Assessment Deep Tendon Reflex Left Achilles Deep Tendon Reflex 4+ Brisk Left Patellar Deep Tendon Reflex 3+ Normal But Brisk Ankle Clonus Left Clonus Assessment Sustained Muscle Tone Tone Assessment Left Lower Extremity Flexor Tone Description Mild Hypotonicity PT-OP-M Strength Start: 09/17/19 18:00 Freq: Status: Active Protocol: Document 02/02/21 11:15 DCW (Rec: 02/02/21 11:56 DCW [id number]) Hip Strength Hip Manual Muscle Testing Left Flexion (L2) 4 Good Extension (S1) 5 Normal Abduction 4 Good Adduction 4+ Good+ External Rotation 4 Good Internal Rotation 4 Good Knee Strength Knee Manual Muscle Testing Left Flexion (S2) 4 Good Extension (L3) 5 Normal Ankle/Foot Strength Ankle and Foot Manual Muscle Testing Left Dorsiflexion (L4) 4 Good Plantarflexion (S1) 4 Good Inversion 4- Good- Eversion (S1) 3 Fair PT-OP-Q Treatments Start: 09/17/19 18:00 Freq: Status: Active Protocol: Document 02/09/21 09:33 DCW (Rec: 02/02/21 12:17 DCW [id number]) Neuro Re-Education Treatment Other Activities Testing Details 6MWT, Adler, TUG, Reflex testing, MMT PT-OP-R Modalities Start: 09/17/19 18:00 Freq: Status: Active Protocol: Document 02/09/21 09:34 DCW (Rec: 02/02/21 12:17 DCW [id number]) Electric Stimulation Electric Stimulation Interferential Current (IFC) Body Location L ant ankle Duration (Minutes) 15 Patient Position Sitting Combined With Heat/Cold Cold Pack PT-OP-S Aquatic Treatment Start: 09/17/19 18:00 Freq: Status: Active Protocol: Document 01/30/20 12:30 LJ (Rec: 01/30/20 14:54 LJ [id number]) Aquatics Treatment Pool Entry/Exit Pool Entry/Exit Method Lift Assistance Minimal Assistance Water Walking Slow motion Water Level Chest Level Walking Equipment wet vest, UE float, #2.5 ankle wt Level of Assistance Standby Assistance,Contact Guard Assistance,Moderate Assistance Comments emphasis on LLE extension stance phase January Water Level Chest Level Walking Equipment wet vest, UE float, #2.5 ankle wt Level of Assistance Standby Assistance,Contact Guard Assistance,Moderate Assistance,Verbal Cues Forward with emphasis on reciprocal gait pattern Water Level Chest Level Level of Assistance Standby Assistance,Contact Guard Assistance,Minimal Assistance,Verbal Cues Comments wetvest, sm float on LUE, #3. 75 ankle wt on LLE start stop walking forward and backward Water Level Chest Level Walking Equipment vest Level of Assistance Contact Guard Assistance, Verbal Cues Comments wetvest, sm float on LUE, #3. 75 ankle wt on LLE Sideways Water Level Chest Level Walking Equipment wet vest, UE float, #2.5 ankle wt Level of Assistance Standby Assistance,Contact Guard Assistance,Minimal Assistance,Verbal Cues Lower Extremity Exercises SL aquats Details HH on wall Body Position Standing Water Level Waist Level Equipment wetvest Reps/Duration 2x10 LLE Comments VC to extend knee knee extensions Details seated in lift chair Equipment Ankle Weight- 5.0# Reps/Duration 20 B Comments seated in lift SLS Details bracing LLE Body Position Standing Water Level Chest Level Equipment vest Reps/Duration 1 min marching at wall Water Level Chest Level Reps/Duration 2 min Comments opposite UE/LE tapping wall squats Body Position Standing Water Level Chest Level Reps/Duration 20x Lower Extremity Stretches adductors Comments seated in chair Gastroc Body Position Sitting Reps/Duration 2 x 45 sec B Comments manual assist hip flexors Details at wall Body Position Standing Water Level Waist Level Reps/Duration 2x45 Comments manually assisted HS Details at wall Body Position Sitting Water Level Waist Level Equipment wet vest Reps/Duration 2x45 Comments sitting in lift chair assisted Upper Extremity Exercises breastroke UE's Body Position Standing Water Level Chest Level Reps/Duration 3 min Comments during walking and deep water hor ab/ad Water Level Chest Level Comments during side walking, CGA Balance step ups Details step ups/down using boxes Body Position Standing Water Level Waist Level Equipment 8 boxes Comments mod verbal cues for coordination [place] Activities [place] Activities Bicycle,Cross Country Equipment wet vest, white noodle Duration 7 min Comments Guy and cues for vertical alignmernt. PT-OP-T Assessment and Plan Start: 09/17/19 18:00 Freq: Status: Active Protocol: Document 02/09/21 09:33 DCW (Rec: 02/02/21 12:17 DCW [id number]) Physical Therapy Assessment Impairments Impairments Activity Tolerance,Balance, Coordination,Functional Activities,Functional Mobility ,Gait,Pain,ROM,Sensation, Strength,Tone,Transfers Goals Six Impairment Decreased Static Balance Short Term Goal (STG) Pt to score <9 seconds on TUG STG Duration Met Pole Shaver Helper Goal (LTG) MET - Pt to score 35/56 or better on the Adler Balance MET - Pt to score 45/56 or better on the Adler Balance Scale NEW GOAL: Pt to score 53/56 on Adler Balance Scale LTG Duration 05/05/21 Five Impairment Pt uses R rail and step-over gait pattern ascending stairs Correction Goal (LTG) Pt to ascend/descend stairs independently without use of rail LTG Duration 05/05/21 - Improving Four Impairment Pt demonstrates strength impairment throughout left LE Correction Goal (LTG) Pt to display MMT >3+/5 through L LE LTG Duration 05/05/21 - Met /c all but inversion Three Impairment Pt SBA for transfers and bed mobility d/t Left Neglect Correction Goal (LTG) Pt to demonstrate independent transfers and bed mobility with an ability to address left LE and UE 80% of the time LTG Duration Met Two Impairment Pt ambulates 280' CGA /s an AD Short Term Goal (STG) Pt to ambulate 400' SBA independently STG Duration Met Pole Shaver Helper Goal (LTG) Pt to ambulate 800' during 6 MWT Independently without SBA LTG Duration 05/05/21 - Improving (1374' SBA ) One Impairment Pt does not have an appropriate home exercise program Short Term Goal (STG) Pt to be independent and compliant with an appropriate HEP STG Duration Met Assessment Summary Assessment Pt continues to make great progress overall. Areas of continued difficulty include single leg stance, visual scanning to make up for left visual neglect, reliance on wheelchair at home. Adler has improved from 44/56 to 49/56, pt much more confident and comfortable during gait, progressing more to independent gait from CGA or SBA. Continued skilled therapy should help pt decrease his burden of care and regain more independence. Physical Therapy Plan Frequency and Duration Frequency of Treatment 2x/Week Duration of Treatment 3 months Plan of Care Start Date 02/02/21 Plan of Care End Date 05/05/21 Therapeutic Interventions Therapeutic Interventions Aquatic Therapy,Balance Training,Coordination Training ,Gait Training,Home Exercise Program,Manual Therapy, Neuromuscular Re-education, Patient/Caregiver Education, Self-Care/Home Management, Therapeutic Activities, Therapeutic Exercises Modalities Cold Pack/Ice Massage,Electric Stimulation,Hot Packs, Ultrasound Next Visit Focus/Plan Next Note Type Treatment Note Next Visit Plan SLS, visual scanning, increased activity tolerance
--- NOTE | 2021-02-02 12:47 | PT.OPPOC ---
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 Plan Of Care PT-OP-T Assessment and Plan Start: 09/17/19 18:00 Freq: Status: Active Protocol: Document 02/09/21 09:33 DCW (Rec: 02/02/21 12:17 DCW [id number]) Physical Therapy Assessment Impairments Impairments Activity Tolerance,Balance, Coordination,Functional Activities,Functional Mobility ,Gait,Pain,ROM,Sensation, Strength,Tone,Transfers Goals Six Impairment Decreased Static Balance Short Term Goal (STG) Pt to score <9 seconds on TUG STG Duration Met Gang Worker Goal (LTG) MET - Pt to score 35/56 or better on the Adler Balance MET - Pt to score 45/56 or better on the Adler Balance Scale NEW GOAL: Pt to score 53/56 on Adler Balance Scale LTG Duration 05/05/21 Five Impairment Pt uses R rail and step-over gait pattern ascending stairs Gang Worker Goal (LTG) Pt to ascend/descend stairs independently without use of rail LTG Duration 05/05/21 - Improving Four Impairment Pt demonstrates strength impairment throughout left LE Gang Worker Goal (LTG) Pt to display MMT >3+/5 through L LE LTG Duration 05/05/21 - Met /c all but inversion Three Impairment Pt SBA for transfers and bed mobility d/t Left Neglect [facility] Goal (LTG) Pt to demonstrate independent transfers and bed mobility with an ability to address left LE and UE 80% of the time LTG Duration Met Two Impairment Pt ambulates 280' CGA /s an AD Short Term Goal (STG) Pt to ambulate 400' SBA independently STG Duration Met Gang Worker Goal (LTG) Pt to ambulate 800' during 6 MWT Independently without SBA LTG Duration 05/05/21 - Improving (1374' SBA ) One Impairment Pt does not have an appropriate home exercise program Short Term Goal (STG) Pt to be independent and compliant with an appropriate HEP STG Duration Met Assessment Summary Assessment Pt continues to make great progress overall. Areas of continued difficulty include single leg stance, visual scanning to make up for left visual neglect, reliance on wheelchair at home. Adler has improved from 44/56 to 49/56, pt much more confident and comfortable during gait, progressing more to independent gait from CGA or SBA. Continued skilled therapy should help pt decrease his burden of care and regain more independence. Physical Therapy Plan Frequency and Duration Frequency of Treatment 2x/Week Duration of Treatment 3 months Plan of Care Start Date 02/02/21 Plan of Care End Date 05/05/21 Therapeutic Interventions Therapeutic Interventions Aquatic Therapy,Balance Training,Coordination Training ,Gait Training,Home Exercise Program,Manual Therapy, Neuromuscular Re-education, Patient/Caregiver Education, Self-Care/Home Management, Therapeutic Activities, Therapeutic Exercises Modalities Cold Pack/Ice Massage,Electric Stimulation,Hot Packs, Ultrasound Next Visit Focus/Plan Next Note Type Treatment Note Next Visit Plan SLS, visual scanning, increased activity tolerance Plan of Care Dates Plan of Care Start Date 02/02/21 Plan of Care End Date 05/05/21 Electronically Signed by: Osbaldo Barrios, PT 02/09/21 [id number] Please Sign and Return: I have reviewed this Plan of Care and certify that the skilled therapy services above are required to meet the patient?s needs. Physician Signature Date Printed Name and Credentials Clinical Instructor Signature Printed Name and Credentials
--- NOTE | 2021-02-02 12:47 | PT.OTN ---
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) Physical Therapy Treatment Note PT-OP-A Visit Information Start: 09/17/19 18:00 Freq: Status: Active Protocol: Document 02/02/21 11:15 DCW (Rec: 02/02/21 12:17 DCW [id number]) Out-Patient Physical Therapy Visit Information Visit Information Visit Type Progress Note Visit Start Time 11:15 Visit Stop Time 12:15 Total Visit Minutes 60 Visit Number 99 Number of DRUG AND ALCOHOL TREATMENT SPECIALIST Visits 0 Evaluation Information Evaluation Date 09/17/19 PT-OP-B Current Condition Start: 09/17/19 18:00 Freq: Status: Active Protocol: Document 09/17/19 12:00 DCW (Rec: 09/18/19 10:29 DCW [id number]) Current Condition History of Current Condition Onset Date 04/14/19 Current Complaints Hemiparesis secondary to CVA History of Current Condition Pt is a 69 year old male presenting to skilled outpatient physical therapy with left-side neglect, hemiparesis, loss of independence, and difficulty walking following an intraparenchymal hemorrhage on 04/14/19. Pt was transferred from [facility] to [facility], where a craniotomy was performed on 04/16/19. Pt completed 7 weeks of rehab/ recovery at [facility], and then underwent a second surgery on 06/26/19 to replace the skull fragment. Pt was then at an acute rehab facility 06/30-07/18/19, and since then has been receiving home health physical therapy. Pt presents today with limited left-sided function, left visual and physical neglect, difficulty with transfers, decreased activity tolerance, decreased gait, and many other secondary effects following his CVA. Pt has been working on ambulation with a vale walker with home health, and his states he has walked around 100' a few times, but always with a therapist, as she does not feel comfortable walking with him yet. Pt exclusively gets around at time of evaluation in a manual wheelchair. Pt's transfers have been going fairly well, with his caregivers performing CGA, however pt will occasionally need assistance with placement of his left UE and LE due to neglect. Pt's biggest complaint at the moment is leg pain, his reports they have tried PT, Massage, CBD il, Tylenol, Oxycodine, and Gabapentin, all with minimal benefit. Prior to CVA, pt was fully independent in all activities. Pt and have garegivers 8 hrs a day for assistance. Prior Treatments and Tests Craniotomy 04/16/19, Acute rehab, Skull fragment replacement 06/26/19, home health PT Prior Functional Status Baseline Function- ADL's Independent Baseline Function- Mobility Independent PT-OP-C Subjective Start: 09/17/19 18:00 Freq: Status: Active Protocol: Document 02/02/21 11:15 DCW (Rec: 02/02/21 12:17 DCW [id number]) OP-PT Subjective Patient Comments Patient Comments Pt both excited and nervous about his reassessment today. PT-OP-D Balance Start: 08/04/20 14:14 Freq: Status: Active Protocol: Document 02/02/21 11:15 DCW (Rec: 02/02/21 11:56 DCW [id number]) Balance Tests Adler Balance Test Adler Balance Test Score 49/56 Adler Impairment Rating 1 to 19% Impaired (Score 45-55 ) Adler Balance Assessment Evaluation Sitting to Standing Ability Independent w/out Hands Unsupported Stance Safely- 2 minutes Sitting Unsupported, Feet on Floor Safely- 2 minutes Standing to Sitting Ability Safely, Minimal Hand Use Transfer Ability Safely, Minimal Hand Use Unsupported Stance- Eyes Closed Safely, 10 seconds Unsupported Stance- Eyes Open Independent, 1 minute Reaching Forward Standing Confidently, 10 inches Pick- Up Object From Floor Independent/Safe Look Behind Shoulder - Standing Shifts Weight Well Turning 360 Degrees Turns , < 4 secs Unsupported Stance, Alternating Feet on 4 Steps w/Supervision Stair Unsupported Tandem Stance Holds Tandem- 30 seconds Unilateral Leg Stance Lifts Leg/Unable to Hold Total Score Adler Total Score (out of 56 points) 49 Adler Impairment Rating 1 to 19% Impaired (Score 45-55 ) PT-OP-E Functional Tests Start: 05/04/20 15:15 Freq: Status: Active Protocol: Document 02/02/21 11:15 DCW (Rec: 02/02/21 11:56 DCW [id number]) Functional Tests 6 Minute Walk Test Distance 1374 Device Used none Comments 3.82 ft/sec Timed Up and Go (TUG) Score 8.2 seconds Comments 3-trial average (8.58, 8.35, 7 .67) TUG Impairment Rating 0% Impaired (Score 10) PT-OP-G Mobility & Gait Start: 09/17/19 18:00 Freq: Status: Active Protocol: Document 02/02/21 11:15 DCW (Rec: 02/02/21 11:56 DCW [id number]) OP Gait Assessment Gait Gait Assistance Required: Standby Assistance Distance (Feet) 1,374 Assistive Devices Assistive Device None Gait Deviations General Gait Pattern Antalgic,Ataxic,Flexed Trunk Factors Limiting Gait Function Factors Limiting Gait Function Abnormal Tonal Influences, Decreased Activity Tolerance, Decreased Sensation,Decreased Strength Stair Climbing Evaluation Evaluation Level of Assist On Stairs Standby Assistance Devices Stair Climbing Assistive Devices Right Railing Technique/Endurance Stair Climbing Direction Ascend and Descend Stair Climbing Technique Step Over Step Number of Steps Climbed 4 PT-OP-H Neuro Start: 09/17/19 18:00 Freq: Status: Active Protocol: Document 02/02/21 11:15 DCW (Rec: 02/02/21 11:56 DCW [id number]) Deep Tendon Reflex & Clonus Assessment Deep Tendon Reflex Left Achilles Deep Tendon Reflex 4+ Brisk Left Patellar Deep Tendon Reflex 3+ Normal But Brisk Ankle Clonus Left Clonus Assessment Sustained Muscle Tone Tone Assessment Left Lower Extremity Flexor Tone Description Mild Hypotonicity PT-OP-M Strength Start: 09/17/19 18:00 Freq: Status: Active Protocol: Document 02/02/21 11:15 DCW (Rec: 02/02/21 11:56 DCW [id number]) Hip Strength Hip Manual Muscle Testing Left Flexion (L2) 4 Good Extension (S1) 5 Normal Abduction 4 Good Adduction 4+ Good+ External Rotation 4 Good Internal Rotation 4 Good Knee Strength Knee Manual Muscle Testing Left Flexion (S2) 4 Good Extension (L3) 5 Normal Ankle/Foot Strength Ankle and Foot Manual Muscle Testing Left Dorsiflexion (L4) 4 Good Plantarflexion (S1) 4 Good Inversion 4- Good- Eversion (S1) 3 Fair PT-OP-Q Treatments Start: 09/17/19 18:00 Freq: Status: Active Protocol: Document 02/02/21 11:15 DCW (Rec: 02/02/21 12:17 DCW [id number]) Neuro Re-Education Treatment Other Activities Testing Details 6MWT, Adler, TUG, Reflex testing, MMT PT-OP-R Modalities Start: 09/17/19 18:00 Freq: Status: Active Protocol: Document 02/02/21 11:15 DCW (Rec: 02/02/21 12:17 DCW [id number]) Electric Stimulation Electric Stimulation Interferential Current (IFC) Body Location L ant ankle Duration (Minutes) 15 Patient Position Sitting Combined With Heat/Cold Cold Pack PT-OP-S Aquatic Treatment Start: 09/17/19 18:00 Freq: Status: Active Protocol: Document 01/30/20 12:30 LJ (Rec: 01/30/20 14:54 LJ [id number]) Aquatics Treatment Pool Entry/Exit Pool Entry/Exit Method Lift Assistance Minimal Assistance Water Walking Slow motion Water Level Chest Level Walking Equipment wet vest, UE float, #2.5 ankle wt Level of Assistance Standby Assistance,Contact Guard Assistance,Moderate Assistance Comments emphasis on LLE extension stance phase January Water Level Chest Level Walking Equipment wet vest, UE float, #2.5 ankle wt Level of Assistance Standby Assistance,Contact Guard Assistance,Moderate Assistance,Verbal Cues Forward with emphasis on reciprocal gait pattern Water Level Chest Level Level of Assistance Standby Assistance,Contact Guard Assistance,Minimal Assistance,Verbal Cues Comments wetvest, sm float on LUE, #3. 75 ankle wt on LLE start stop walking forward and backward Water Level Chest Level Walking Equipment vest Level of Assistance Contact Guard Assistance, Verbal Cues Comments wetvest, sm float on LUE, #3. 75 ankle wt on LLE Sideways Water Level Chest Level Walking Equipment wet vest, UE float, #2.5 ankle wt Level of Assistance Standby Assistance,Contact Guard Assistance,Minimal Assistance,Verbal Cues Lower Extremity Exercises SL aquats Details HH on wall Body Position Standing Water Level Waist Level Equipment wetvest Reps/Duration 2x10 LLE Comments VC to extend knee knee extensions Details seated in lift chair Equipment Ankle Weight- 5.0# Reps/Duration 20 B Comments seated in lift SLS Details bracing LLE Body Position Standing Water Level Chest Level Equipment vest Reps/Duration 1 min marching at wall Water Level Chest Level Reps/Duration 2 min Comments opposite UE/LE tapping wall squats Body Position Standing Water Level Chest Level Reps/Duration 20x Lower Extremity Stretches adductors Comments seated in chair Gastroc Body Position Sitting Reps/Duration 2 x 45 sec B Comments manual assist hip flexors Details at wall Body Position Standing Water Level Waist Level Reps/Duration 2x45 Comments manually assisted HS Details at wall Body Position Sitting Water Level Waist Level Equipment wet vest Reps/Duration 2x45 Comments sitting in lift chair assisted Upper Extremity Exercises breastroke UE's Body Position Standing Water Level Chest Level Reps/Duration 3 min Comments during walking and deep water hor ab/ad Water Level Chest Level Comments during side walking, CGA Balance step ups Details step ups/down using boxes Body Position Standing Water Level Waist Level Equipment 8 boxes Comments mod verbal cues for coordination Freedom Activities Freedom Activities Bicycle,Cross Country Equipment wet vest, white noodle Duration 7 min Comments Guy and cues for vertical alignmernt. PT-OP-T Assessment and Plan Start: 09/17/19 18:00 Freq: Status: Active Protocol: Document 02/02/21 11:15 DCW (Rec: 02/02/21 12:17 DCW [id number]) Physical Therapy Assessment Impairments Impairments Activity Tolerance,Balance, Coordination,Functional Activities,Functional Mobility ,Gait,Pain,ROM,Sensation, Strength,Tone,Transfers Goals Six Impairment Decreased Static Balance Short Term Goal (STG) Pt to score <9 seconds on TUG STG Duration Met Family Mediator Goal (LTG) MET - Pt to score 35/56 or better on the Adler Balance MET - Pt to score 45/56 or better on the Adler Balance Scale NEW GOAL: Pt to score 53/56 on Adler Balance Scale LTG Duration 05/05/21 Five Impairment Pt uses R rail and step-over gait pattern ascending stairs Fci Goal (LTG) Pt to ascend/descend stairs independently without use of rail LTG Duration 05/05/21 - Improving Four Impairment Pt demonstrates strength impairment throughout left LE Fci Goal (LTG) Pt to display MMT >3+/5 through L LE LTG Duration 05/05/21 - Met /c all but inversion Three Impairment Pt SBA for transfers and bed mobility d/t Left Neglect Fci Goal (LTG) Pt to demonstrate independent transfers and bed mobility with an ability to address left LE and UE 80% of the time LTG Duration Met Two Impairment Pt ambulates 280' CGA /s an AD Short Term Goal (STG) Pt to ambulate 400' SBA independently STG Duration Met Family Mediator Goal (LTG) Pt to ambulate 800' during 6 MWT Independently without SBA LTG Duration 05/05/21 - Improving (1374' SBA ) One Impairment Pt does not have an appropriate home exercise program Short Term Goal (STG) Pt to be independent and compliant with an appropriate HEP STG Duration Met Assessment Summary Assessment Pt continues to make great progress overall. Areas of continued difficulty include single leg stance, visual scanning to make up for left visual neglect, reliance on wheelchair at home. Adler has improved from 44/56 to 49/56, pt much more confident and comfortable during gait, progressing more to independent gait from CGA or SBA. Continued skilled therapy should help pt decrease his burden of care and regain more independence. Physical Therapy Plan Frequency and Duration Frequency of Treatment 2x/Week Duration of Treatment 3 months Plan of Care Start Date 11/05/20 Plan of Care End Date 02/03/21 Therapeutic Interventions Therapeutic Interventions Aquatic Therapy,Balance Training,Coordination Training ,Gait Training,Home Exercise Program,Manual Therapy, Neuromuscular Re-education, Patient/Caregiver Education, Self-Care/Home Management, Therapeutic Activities, Therapeutic Exercises Modalities Cold Pack/Ice Massage,Electric Stimulation,Hot Packs, Ultrasound Next Visit Focus/Plan Next Note Type Treatment Note Next Visit Plan SLS, visual scanning, increased activity tolerance
--- NOTE | 2021-02-02 12:47 | PT.OPPOC ---
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) Visit Care Team Role Provider Type Yesy Cortes MD Attending Provider Physician Primary Care Provider Specialty: Internal Medicine Address: [address] [place] [address], [facility] Email: [email or web address] Plan Of Care PT-OP-T Assessment and Plan Start: 09/17/19 18:00 Freq: Status: Active Protocol: Document 02/02/21 11:15 DCW (Rec: 02/02/21 12:17 DCW [id number]) Physical Therapy Assessment Impairments Impairments Activity Tolerance,Balance, Coordination,Functional Activities,Functional Mobility ,Gait,Pain,ROM,Sensation, Strength,Tone,Transfers Goals Six Impairment Decreased Static Balance Short Term Goal (STG) Pt to score <9 seconds on TUG STG Duration Met Greenkeeper Goal (LTG) MET - Pt to score 35/56 or better on the Adler Balance MET - Pt to score 45/56 or better on the Adler Balance Scale NEW GOAL: Pt to score 53/56 on Adler Balance Scale LTG Duration 05/05/21 Five Impairment Pt uses R rail and step-over gait pattern ascending stairs Greenkeeper Goal (LTG) Pt to ascend/descend stairs independently without use of rail LTG Duration 05/05/21 - Improving Four Impairment Pt demonstrates strength impairment throughout left LE Greenkeeper Goal (LTG) Pt to display MMT >3+/5 through L LE LTG Duration 05/05/21 - Met /c all but inversion Three Impairment Pt SBA for transfers and bed mobility d/t Left Neglect Mcc Goal (LTG) Pt to demonstrate independent transfers and bed mobility with an ability to address left LE and UE 80% of the time LTG Duration Met Two Impairment Pt ambulates 280' CGA /s an AD Short Term Goal (STG) Pt to ambulate 400' SBA independently STG Duration Met Greenkeeper Goal (LTG) Pt to ambulate 800' during 6 MWT Independently without SBA LTG Duration 05/05/21 - Improving (1374' SBA ) One Impairment Pt does not have an appropriate home exercise program Short Term Goal (STG) Pt to be independent and compliant with an appropriate HEP STG Duration Met Assessment Summary Assessment Pt continues to make great progress overall. Areas of continued difficulty include single leg stance, visual scanning to make up for left visual neglect, reliance on wheelchair at home. Adler has improved from 44/56 to 49/56, pt much more confident and comfortable during gait, progressing more to independent gait from CGA or SBA. Continued skilled therapy should help pt decrease his burden of care and regain more independence. Physical Therapy Plan Frequency and Duration Frequency of Treatment 2x/Week Duration of Treatment 3 months Plan of Care Start Date 11/05/20 Plan of Care End Date 02/03/21 Therapeutic Interventions Therapeutic Interventions Aquatic Therapy,Balance Training,Coordination Training ,Gait Training,Home Exercise Program,Manual Therapy, Neuromuscular Re-education, Patient/Caregiver Education, Self-Care/Home Management, Therapeutic Activities, Therapeutic Exercises Modalities Cold Pack/Ice Massage,Electric Stimulation,Hot Packs, Ultrasound Next Visit Focus/Plan Next Note Type Treatment Note Next Visit Plan SLS, visual scanning, increased activity tolerance Plan of Care Dates Plan of Care Start Date 11/05/20 Plan of Care End Date 02/03/21 Electronically Signed by: sObaldo Barrios, PT 02/02/21 [id number] Please Sign and Return: I have reviewed this Plan of Care and certify that the skilled therapy services above are required to meet the patient?s needs. Physician Signature Date Printed Name and Credentials Clinical Instructor Signature Printed Name and Credentials
--- NOTE | 2021-02-07 12:03 | PT.OTN ---
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) Physical Therapy Treatment Note PT-OP-A Visit Information Start: 09/17/19 18:00 Freq: Status: Active Protocol: Document 02/07/21 11:15 DCW (Rec: 02/07/21 12:02 DCW [id number]) Out-Patient Physical Therapy Visit Information Visit Information Visit Type Treatment Note Visit Start Time 11:15 Visit Stop Time 12:10 Total Visit Minutes 55 Visit Number 100 Number of SURFACING TECHNICIAN Visits 0 Evaluation Information Evaluation Date 09/17/19 PT-OP-B Current Condition Start: 09/17/19 18:00 Freq: Status: Active Protocol: Document 09/17/19 12:00 DCW (Rec: 09/18/19 10:29 DCW [id number]) Current Condition History of Current Condition Onset Date 04/14/19 Current Complaints Hemiparesis secondary to CVA History of Current Condition Pt is a 69 year old male presenting to skilled outpatient physical therapy with left-side neglect, hemiparesis, loss of independence, and difficulty walking following an intraparenchymal hemorrhage on 04/14/19. Pt was transferred from [facility] to [facility], where a craniotomy was performed on 04/16/19. Pt completed 7 weeks of rehab/ recovery at [facility], and then underwent a second surgery on 06/26/19 to replace the skull fragment. Pt was then at an acute rehab facility 06/30-07/18/19, and since then has been receiving home health physical therapy. Pt presents today with limited left-sided function, left visual and physical neglect, difficulty with transfers, decreased activity tolerance, decreased gait, and many other secondary effects following his CVA. Pt has been working on ambulation with a vale walker with home health, and his states he has walked around 100' a few times, but always with a therapist, as she does not feel comfortable walking with him yet. Pt exclusively gets around at time of evaluation in a manual wheelchair. Pt's transfers have been going fairly well, with his caregivers performing CGA, however pt will occasionally need assistance with placement of his left UE and LE due to neglect. Pt's biggest complaint at the moment is leg pain, his reports they have tried PT, Massage, CBD il, Tylenol, Oxycodine, and Gabapentin, all with minimal benefit. Prior to CVA, pt was fully independent in all activities. Pt and have garegivers 8 hrs a day for assistance. Prior Treatments and Tests Craniotomy 04/16/19, Acute rehab, Skull fragment replacement 06/26/19, home health PT Prior Functional Status Baseline Function- ADL's Independent Baseline Function- Mobility Independent PT-OP-C Subjective Start: 09/17/19 18:00 Freq: Status: Active Protocol: Document 02/07/21 11:15 DCW (Rec: 02/07/21 12:02 DCW [id number]) OP-PT Subjective Patient Comments Patient Comments Pt okay today, notes he had a lot of nerve pain last night. PT-OP-D Balance Start: 08/04/20 14:14 Freq: Status: Active Protocol: Document 02/02/21 11:15 DCW (Rec: 02/02/21 11:56 DCW [id number]) Balance Tests Adler Balance Test Adler Balance Test Score 49/56 Adler Impairment Rating 1 to 19% Impaired (Score 45-55 ) Adler Balance Assessment Evaluation Sitting to Standing Ability Independent w/out Hands Unsupported Stance Safely- 2 minutes Sitting Unsupported, Feet on Floor Safely- 2 minutes Standing to Sitting Ability Safely, Minimal Hand Use Transfer Ability Safely, Minimal Hand Use Unsupported Stance- Eyes Closed Safely, 10 seconds Unsupported Stance- Eyes Open Independent, 1 minute Reaching Forward Standing Confidently, 10 inches Pick- Up Object From Floor Independent/Safe Look Behind Shoulder - Standing Shifts Weight Well Turning 360 Degrees Turns , < 4 secs Unsupported Stance, Alternating Feet on 4 Steps w/Supervision Stair Unsupported Tandem Stance Holds Tandem- 30 seconds Unilateral Leg Stance Lifts Leg/Unable to Hold Total Score Adler Total Score (out of 56 points) 49 Adler Impairment Rating 1 to 19% Impaired (Score 45-55 ) PT-OP-E Functional Tests Start: 05/04/20 15:15 Freq: Status: Active Protocol: Document 02/02/21 11:15 DCW (Rec: 02/02/21 11:56 DCW [id number]) Functional Tests 6 Minute Walk Test Distance 1374 Device Used none Comments 3.82 ft/sec Timed Up and Go (TUG) Score 8.2 seconds Comments 3-trial average (8.58, 8.35, 7 .67) TUG Impairment Rating 0% Impaired (Score 10) PT-OP-G Mobility & Gait Start: 09/17/19 18:00 Freq: Status: Active Protocol: Document 02/02/21 11:15 DCW (Rec: 02/02/21 11:56 DCW [id number]) OP Gait Assessment Gait Gait Assistance Required: Standby Assistance Distance (Feet) 1,374 Assistive Devices Assistive Device None Gait Deviations General Gait Pattern Antalgic,Ataxic,Flexed Trunk Factors Limiting Gait Function Factors Limiting Gait Function Abnormal Tonal Influences, Decreased Activity Tolerance, Decreased Sensation,Decreased Strength Stair Climbing Evaluation Evaluation Level of Assist On Stairs Standby Assistance Devices Stair Climbing Assistive Devices Right Railing Technique/Endurance Stair Climbing Direction Ascend and Descend Stair Climbing Technique Step Over Step Number of Steps Climbed 4 PT-OP-H Neuro Start: 09/17/19 18:00 Freq: Status: Active Protocol: Document 02/02/21 11:15 DCW (Rec: 02/02/21 11:56 DCW [id number]) Deep Tendon Reflex & Clonus Assessment Deep Tendon Reflex Left Achilles Deep Tendon Reflex 4+ Brisk Left Patellar Deep Tendon Reflex 3+ Normal But Brisk Ankle Clonus Left Clonus Assessment Sustained Muscle Tone Tone Assessment Left Lower Extremity Flexor Tone Description Mild Hypotonicity PT-OP-M Strength Start: 09/17/19 18:00 Freq: Status: Active Protocol: Document 02/02/21 11:15 DCW (Rec: 02/02/21 11:56 DCW [id number]) Hip Strength Hip Manual Muscle Testing Left Flexion (L2) 4 Good Extension (S1) 5 Normal Abduction 4 Good Adduction 4+ Good+ External Rotation 4 Good Internal Rotation 4 Good Knee Strength Knee Manual Muscle Testing Left Flexion (S2) 4 Good Extension (L3) 5 Normal Ankle/Foot Strength Ankle and Foot Manual Muscle Testing Left Dorsiflexion (L4) 4 Good Plantarflexion (S1) 4 Good Inversion 4- Good- Eversion (S1) 3 Fair PT-OP-Q Treatments Start: 09/17/19 18:00 Freq: Status: Active Protocol: Document 02/07/21 11:15 DCW (Rec: 02/07/21 12:02 DCW [id number]) Gym Equipment Shuttle Recovery Unilateral Heel Raises Details Left Resistance 25# Reps/Time calf stretch at end Unilateral Squats Details Left Resistance 62# Shuttle Recovery Platform Stable Bilateral Squats Resistance 100# Shuttle Recovery Platform Stable Therapeutic Exercises Sitting Exercises LAQ Sitting Exercise Name LAQ Side bilateral Resistance 5# Equipment Used ankle weights Reps/Minutes x15 Standing Exercises Marching Standing Exercise Name Toe-taps at rail Side bilateral Resistance 5# Equipment Used 6 step Gait Training Gait Activity No AD Description No AD Device Used None Level of Assistance SBA Distance/Duration 1040' x1 Comments VCs to promote heel-toe gait, extend left knee during stance phase Neuro Re-Education Treatment Balance Activities Cone transfers Details Bending down ball pick-up from cone, kick cone over, ball toss to target PT-OP-R Modalities Start: 09/17/19 18:00 Freq: Status: Active Protocol: Document 02/07/21 11:15 DCW (Rec: 02/07/21 12:02 DCW [id number]) Electric Stimulation Electric Stimulation Interferential Current (IFC) Body Location L ant ankle Duration (Minutes) 15 Patient Position Sitting Combined With Heat/Cold Cold Pack PT-OP-S Aquatic Treatment Start: 09/17/19 18:00 Freq: Status: Active Protocol: Document 01/30/20 12:30 LJ (Rec: 01/30/20 14:54 LJ [id number]) Aquatics Treatment Pool Entry/Exit Pool Entry/Exit Method Lift Assistance Minimal Assistance Water Walking Slow motion Water Level Chest Level Walking Equipment wet vest, UE float, #2.5 ankle wt Level of Assistance Standby Assistance,Contact Guard Assistance,Moderate Assistance Comments emphasis on LLE extension stance phase January Water Level Chest Level Walking Equipment wet vest, UE float, #2.5 ankle wt Level of Assistance Standby Assistance,Contact Guard Assistance,Moderate Assistance,Verbal Cues Forward with emphasis on reciprocal gait pattern Water Level Chest Level Level of Assistance Standby Assistance,Contact Guard Assistance,Minimal Assistance,Verbal Cues Comments wetvest, sm float on LUE, #3. 75 ankle wt on LLE start stop walking forward and backward Water Level Chest Level Walking Equipment vest Level of Assistance Contact Guard Assistance, Verbal Cues Comments wetvest, sm float on LUE, #3. 75 ankle wt on LLE Sideways Water Level Chest Level Walking Equipment wet vest, UE float, #2.5 ankle wt Level of Assistance Standby Assistance,Contact Guard Assistance,Minimal Assistance,Verbal Cues Lower Extremity Exercises SL aquats Details HH on wall Body Position Standing Water Level Waist Level Equipment wetvest Reps/Duration 2x10 LLE Comments VC to extend knee knee extensions Details seated in lift chair Equipment Ankle Weight- 5.0# Reps/Duration 20 B Comments seated in lift SLS Details bracing LLE Body Position Standing Water Level Chest Level Equipment vest Reps/Duration 1 min marching at wall Water Level Chest Level Reps/Duration 2 min Comments opposite UE/LE tapping wall squats Body Position Standing Water Level Chest Level Reps/Duration 20x Lower Extremity Stretches adductors Comments seated in chair Gastroc Body Position Sitting Reps/Duration 2 x 45 sec B Comments manual assist hip flexors Details at wall Body Position Standing Water Level Waist Level Reps/Duration 2x45 Comments manually assisted HS Details at wall Body Position Sitting Water Level Waist Level Equipment wet vest Reps/Duration 2x45 Comments sitting in lift chair assisted Upper Extremity Exercises breastroke UE's Body Position Standing Water Level Chest Level Reps/Duration 3 min Comments during walking and deep water hor ab/ad Water Level Chest Level Comments during side walking, CGA Balance step ups Details step ups/down using boxes Body Position Standing Water Level Waist Level Equipment 8 boxes Comments mod verbal cues for coordination [place] Activities [place] Activities Bicycle,Cross Country Equipment wet vest, white noodle Duration 7 min Comments Guy and cues for vertical alignmernt. PT-OP-T Assessment and Plan Start: 09/17/19 18:00 Freq: Status: Active Protocol: Document 02/07/21 11:15 DCW (Rec: 02/07/21 12:02 DCW [id number]) Physical Therapy Assessment Impairments Impairments Activity Tolerance,Balance, Coordination,Functional Activities,Functional Mobility ,Gait,Pain,ROM,Sensation, Strength,Tone,Transfers Goals Six Impairment Decreased Static Balance Short Term Goal (STG) Pt to score <9 seconds on TUG STG Duration Met Sound Art Instructor Goal (LTG) MET - Pt to score 35/56 or better on the Adler Balance MET - Pt to score 45/56 or better on the Adler Balance Scale NEW GOAL: Pt to score 53/56 on Adler Balance Scale LTG Duration 05/05/21 Five Impairment Pt uses R rail and step-over gait pattern ascending stairs Skilled Nursing Goal (LTG) Pt to ascend/descend stairs independently without use of rail LTG Duration 05/05/21 - Improving Four Impairment Pt demonstrates strength impairment throughout left LE Skilled Nursing Goal (LTG) Pt to display MMT >3+/5 through L LE LTG Duration 05/05/21 - Met /c all but inversion Three Impairment Pt SBA for transfers and bed mobility d/t Left Neglect Sound Art Instructor Goal (LTG) Pt to demonstrate independent transfers and bed mobility with an ability to address left LE and UE 80% of the time LTG Duration Met Two Impairment Pt ambulates 280' CGA /s an AD Short Term Goal (STG) Pt to ambulate 400' SBA independently STG Duration Met Sound Art Instructor Goal (LTG) Pt to ambulate 800' during 6 MWT Independently without SBA LTG Duration 05/05/21 - Improving (1374' SBA ) One Impairment Pt does not have an appropriate home exercise program Short Term Goal (STG) Pt to be independent and compliant with an appropriate HEP STG Duration Met Assessment Summary Assessment Pt tolerated treatment well, mild fatigue with activity. Sensation continues to improve some with sharp and deep touch, light touch still inconsistent, and proprioception is completely impaired. Physical Therapy Plan Frequency and Duration Frequency of Treatment 2x/Week Duration of Treatment 3 months Plan of Care Start Date 11/05/20 Plan of Care End Date 02/03/21 Therapeutic Interventions Therapeutic Interventions Aquatic Therapy,Balance Training,Coordination Training ,Gait Training,Home Exercise Program,Manual Therapy, Neuromuscular Re-education, Patient/Caregiver Education, Self-Care/Home Management, Therapeutic Activities, Therapeutic Exercises Modalities Cold Pack/Ice Massage,Electric Stimulation,Hot Packs, Ultrasound Next Visit Focus/Plan Next Note Type Treatment Note Next Visit Plan SLS, visual scanning, increased activity tolerance
--- NOTE | 2021-02-09 11:59 | PT.OTN ---
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) Physical Therapy Treatment Note PT-OP-A Visit Information Start: 09/17/19 18:00 Freq: Status: Active Protocol: Document 02/09/21 11:18 DCW (Rec: 02/09/21 11:59 DCW [id number]) Out-Patient Physical Therapy Visit Information Visit Information Visit Type Treatment Note Visit Start Time 11:18 Visit Stop Time 12:05 Total Visit Minutes 47 Visit Number 101 Number of [employer] Visits 0 Evaluation Information Evaluation Date 09/17/19 PT-OP-B Current Condition Start: 09/17/19 18:00 Freq: Status: Active Protocol: Document 09/17/19 12:00 DCW (Rec: 09/18/19 10:29 DCW [id number]) Current Condition History of Current Condition Onset Date 04/14/19 Current Complaints Hemiparesis secondary to CVA History of Current Condition Pt is a 69 year old male presenting to skilled outpatient physical therapy with left-side neglect, hemiparesis, loss of independence, and difficulty walking following an intraparenchymal hemorrhage on 04/14/19. Pt was transferred from [facility] to [facility], where a craniotomy was performed on 04/16/19. Pt completed 7 weeks of rehab/ recovery at [facility], and then underwent a second surgery on 06/26/19 to replace the skull fragment. Pt was then at an acute rehab facility 06/30-07/18/19, and since then has been receiving home health physical therapy. Pt presents today with limited left-sided function, left visual and physical neglect, difficulty with transfers, decreased activity tolerance, decreased gait, and many other secondary effects following his CVA. Pt has been working on ambulation with a vale walker with home health, and his states he has walked around 100' a few times, but always with a therapist, as she does not feel comfortable walking with him yet. Pt exclusively gets around at time of evaluation in a manual wheelchair. Pt's transfers have been going fairly well, with his caregivers performing CGA, however pt will occasionally need assistance with placement of his left UE and LE due to neglect. Pt's biggest complaint at the moment is leg pain, his reports they have tried PT, Massage, CBD il, Tylenol, Oxycodine, and Gabapentin, all with minimal benefit. Prior to CVA, pt was fully independent in all activities. Pt and have garegivers 8 hrs a day for assistance. Prior Treatments and Tests Craniotomy 04/16/19, Acute rehab, Skull fragment replacement 06/26/19, home health PT Prior Functional Status Baseline Function- ADL's Independent Baseline Function- Mobility Independent PT-OP-C Subjective Start: 09/17/19 18:00 Freq: Status: Active Protocol: Document 02/09/21 11:18 DCW (Rec: 02/09/21 11:59 DCW [id number]) OP-PT Subjective Patient Comments Patient Comments notes that they have been trying to walk more at home. PT-OP-D Balance Start: 08/04/20 14:14 Freq: Status: Active Protocol: Document 02/02/21 11:15 DCW (Rec: 02/02/21 11:56 DCW [id number]) Balance Tests Adler Balance Test Adler Balance Test Score 49/56 Adler Impairment Rating 1 to 19% Impaired (Score 45-55 ) Adler Balance Assessment Evaluation Sitting to Standing Ability Independent w/out Hands Unsupported Stance Safely- 2 minutes Sitting Unsupported, Feet on Floor Safely- 2 minutes Standing to Sitting Ability Safely, Minimal Hand Use Transfer Ability Safely, Minimal Hand Use Unsupported Stance- Eyes Closed Safely, 10 seconds Unsupported Stance- Eyes Open Independent, 1 minute Reaching Forward Standing Confidently, 10 inches Pick- Up Object From Floor Independent/Safe Look Behind Shoulder - Standing Shifts Weight Well Turning 360 Degrees Turns , < 4 secs Unsupported Stance, Alternating Feet on 4 Steps w/Supervision Stair Unsupported Tandem Stance Holds Tandem- 30 seconds Unilateral Leg Stance Lifts Leg/Unable to Hold Total Score Adler Total Score (out of 56 points) 49 Adler Impairment Rating 1 to 19% Impaired (Score 45-55 ) PT-OP-E Functional Tests Start: 05/04/20 15:15 Freq: Status: Active Protocol: Document 02/02/21 11:15 DCW (Rec: 02/02/21 11:56 DCW [id number]) Functional Tests 6 Minute Walk Test Distance 1374 Device Used none Comments 3.82 ft/sec Timed Up and Go (TUG) Score 8.2 seconds Comments 3-trial average (8.58, 8.35, 7 .67) TUG Impairment Rating 0% Impaired (Score 10) PT-OP-G Mobility & Gait Start: 09/17/19 18:00 Freq: Status: Active Protocol: Document 02/02/21 11:15 DCW (Rec: 02/02/21 11:56 DCW [id number]) OP Gait Assessment Gait Gait Assistance Required: Standby Assistance Distance (Feet) 1,374 Assistive Devices Assistive Device None Gait Deviations General Gait Pattern Antalgic,Ataxic,Flexed Trunk Factors Limiting Gait Function Factors Limiting Gait Function Abnormal Tonal Influences, Decreased Activity Tolerance, Decreased Sensation,Decreased Strength Stair Climbing Evaluation Evaluation Level of Assist On Stairs Standby Assistance Devices Stair Climbing Assistive Devices Right Railing Technique/Endurance Stair Climbing Direction Ascend and Descend Stair Climbing Technique Step Over Step Number of Steps Climbed 4 PT-OP-H Neuro Start: 09/17/19 18:00 Freq: Status: Active Protocol: Document 02/02/21 11:15 DCW (Rec: 02/02/21 11:56 DCW [id number]) Deep Tendon Reflex & Clonus Assessment Deep Tendon Reflex Left Achilles Deep Tendon Reflex 4+ Brisk Left Patellar Deep Tendon Reflex 3+ Normal But Brisk Ankle Clonus Left Clonus Assessment Sustained Muscle Tone Tone Assessment Left Lower Extremity Flexor Tone Description Mild Hypotonicity PT-OP-M Strength Start: 09/17/19 18:00 Freq: Status: Active Protocol: Document 02/02/21 11:15 DCW (Rec: 02/02/21 11:56 DCW [id number]) Hip Strength Hip Manual Muscle Testing Left Flexion (L2) 4 Good Extension (S1) 5 Normal Abduction 4 Good Adduction 4+ Good+ External Rotation 4 Good Internal Rotation 4 Good Knee Strength Knee Manual Muscle Testing Left Flexion (S2) 4 Good Extension (L3) 5 Normal Ankle/Foot Strength Ankle and Foot Manual Muscle Testing Left Dorsiflexion (L4) 4 Good Plantarflexion (S1) 4 Good Inversion 4- Good- Eversion (S1) 3 Fair PT-OP-Q Treatments Start: 09/17/19 18:00 Freq: Status: Active Protocol: Document 02/09/21 11:18 DCW (Rec: 02/09/21 11:59 DCW [id number]) Gym Equipment Shuttle Recovery Unilateral Heel Raises Details Left Resistance 25# Reps/Time calf stretch at end Unilateral Squats Details Left Resistance 62# Shuttle Recovery Platform Stable Bilateral Squats Resistance 100# Shuttle Recovery Platform Stable Gait Training Gait Activity No AD Description No AD Device Used None Level of Assistance SBA Distance/Duration 840' x1 Comments VCs to promote heel-toe gait, extend left knee during stance phase Neuro Re-Education Treatment Balance Activities Cone easter egg mchugh Details Visual scan for cone mchugh PT-OP-R Modalities Start: 09/17/19 18:00 Freq: Status: Active Protocol: Document 02/09/21 11:18 DCW (Rec: 02/09/21 11:59 DCW [id number]) Electric Stimulation Electric Stimulation Interferential Current (IFC) Body Location L ant ankle Duration (Minutes) 15 Patient Position Sitting Combined With Heat/Cold Cold Pack PT-OP-S Aquatic Treatment Start: 09/17/19 18:00 Freq: Status: Active Protocol: Document 01/30/20 12:30 LJ (Rec: 01/30/20 14:54 LJ [id number]) Aquatics Treatment Pool Entry/Exit Pool Entry/Exit Method Lift Assistance Minimal Assistance Water Walking Slow motion Water Level Chest Level Walking Equipment wet vest, UE float, #2.5 ankle wt Level of Assistance Standby Assistance,Contact Guard Assistance,Moderate Assistance Comments emphasis on LLE extension stance phase January Water Level Chest Level Walking Equipment wet vest, UE float, #2.5 ankle wt Level of Assistance Standby Assistance,Contact Guard Assistance,Moderate Assistance,Verbal Cues Forward with emphasis on reciprocal gait pattern Water Level Chest Level Level of Assistance Standby Assistance,Contact Guard Assistance,Minimal Assistance,Verbal Cues Comments wetvest, sm float on LUE, #3. 75 ankle wt on LLE start stop walking forward and backward Water Level Chest Level Walking Equipment vest Level of Assistance Contact Guard Assistance, Verbal Cues Comments wetvest, sm float on LUE, #3. 75 ankle wt on LLE Sideways Water Level Chest Level Walking Equipment wet vest, UE float, #2.5 ankle wt Level of Assistance Standby Assistance,Contact Guard Assistance,Minimal Assistance,Verbal Cues Lower Extremity Exercises SL aquats Details HH on wall Body Position Standing Water Level Waist Level Equipment wetvest Reps/Duration 2x10 LLE Comments VC to extend knee knee extensions Details seated in lift chair Equipment Ankle Weight- 5.0# Reps/Duration 20 B Comments seated in lift SLS Details bracing LLE Body Position Standing Water Level Chest Level Equipment vest Reps/Duration 1 min marching at wall Water Level Chest Level Reps/Duration 2 min Comments opposite UE/LE tapping wall squats Body Position Standing Water Level Chest Level Reps/Duration 20x Lower Extremity Stretches adductors Comments seated in chair Gastroc Body Position Sitting Reps/Duration 2 x 45 sec B Comments manual assist hip flexors Details at wall Body Position Standing Water Level Waist Level Reps/Duration 2x45 Comments manually assisted HS Details at wall Body Position Sitting Water Level Waist Level Equipment wet vest Reps/Duration 2x45 Comments sitting in lift chair assisted Upper Extremity Exercises breastroke UE's Body Position Standing Water Level Chest Level Reps/Duration 3 min Comments during walking and deep water hor ab/ad Water Level Chest Level Comments during side walking, CGA Balance step ups Details step ups/down using boxes Body Position Standing Water Level Waist Level Equipment 8 boxes Comments mod verbal cues for coordination [place] Activities [place] Activities Bicycle,Cross Country Equipment wet vest, white noodle Duration 7 min Comments Guy and cues for vertical alignmernt. PT-OP-T Assessment and Plan Start: 09/17/19 18:00 Freq: Status: Active Protocol: Document 02/09/21 11:18 DCW (Rec: 02/09/21 11:59 DCW [id number]) Physical Therapy Assessment Impairments Impairments Activity Tolerance,Balance, Coordination,Functional Activities,Functional Mobility ,Gait,Pain,ROM,Sensation, Strength,Tone,Transfers Goals Six Impairment Decreased Static Balance Short Term Goal (STG) Pt to score <9 seconds on TUG STG Duration Met [employer] Sales [employer] Goal (LTG) MET - Pt to score 35/56 or better on the Adler Balance MET - Pt to score 45/56 or better on the Adler Balance Scale NEW GOAL: Pt to score 53/56 on Adler Balance Scale LTG Duration 05/05/21 Five Impairment Pt uses R rail and step-over gait pattern ascending stairs [employer] Sales Representative Goal (LTG) Pt to ascend/descend stairs independently without use of rail LTG Duration 05/05/21 - Improving Four Impairment Pt demonstrates strength impairment throughout left LE [employer] Sales Representative Goal (LTG) Pt to display MMT >3+/5 through L LE LTG Duration 05/05/21 - Met /c all but inversion Three Impairment Pt SBA for transfers and bed mobility d/t Left Neglect Snf Goal (LTG) Pt to demonstrate independent transfers and bed mobility with an ability to address left LE and UE 80% of the time LTG Duration Met Two Impairment Pt ambulates 280' CGA /s an AD Short Term Goal (STG) Pt to ambulate 400' SBA independently STG Duration Met [employer] Sales Representative Goal (LTG) Pt to ambulate 800' during 6 MWT Independently without SBA LTG Duration 05/05/21 - Improving (1374' SBA ) One Impairment Pt does not have an appropriate home exercise program Short Term Goal (STG) Pt to be independent and compliant with an appropriate HEP STG Duration Met Assessment Summary Assessment Pt complained of some increased left hip pain today, limited his ambulation a little more than usual. Physical Therapy Plan Frequency and Duration Frequency of Treatment 2x/Week Duration of Treatment 3 months Plan of Care Start Date 02/02/21 Plan of Care End Date 05/05/21 Therapeutic Interventions Therapeutic Interventions Aquatic Therapy,Balance Training,Coordination Training ,Gait Training,Home Exercise Program,Manual Therapy, Neuromuscular Re-education, Patient/Caregiver Education, Self-Care/Home Management, Therapeutic Activities, Therapeutic Exercises Modalities Cold Pack/Ice Massage,Electric Stimulation,Hot Packs, Ultrasound Next Visit Focus/Plan Next Note Type Treatment Note Next Visit Plan SLS, visual scanning, increased activity tolerance
--- NOTE | 2021-02-14 12:00 | PT.OTN ---
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) Physical Therapy Treatment Note PT-OP-A Visit Information Start: 09/17/19 18:00 Freq: Status: Active Protocol: Document 02/14/21 11:16 DCW (Rec: 02/14/21 12:00 DCW [id number]) Out-Patient Physical Therapy Visit Information Visit Information Visit Type Treatment Note Visit Start Time 11:16 Visit Stop Time 12:10 Total Visit Minutes 54 Visit Number 102 Number of RAVELER Visits 0 Evaluation Information Evaluation Date 09/17/19 PT-OP-B Current Condition Start: 09/17/19 18:00 Freq: Status: Active Protocol: Document 09/17/19 12:00 DCW (Rec: 09/18/19 10:29 DCW [id number]) Current Condition History of Current Condition Onset Date 04/14/19 Current Complaints Hemiparesis secondary to CVA History of Current Condition Pt is a 69 year old male presenting to skilled outpatient physical therapy with left-side neglect, hemiparesis, loss of independence, and difficulty walking following an intraparenchymal hemorrhage on 04/14/19. Pt was transferred from [facility] to [facility], where a craniotomy was performed on 04/16/19. Pt completed 7 weeks of rehab/ recovery at [facility], and then underwent a second surgery on 06/26/19 to replace the skull fragment. Pt was then at an acute rehab facility 06/30-07/18/19, and since then has been receiving home health physical therapy. Pt presents today with limited left-sided function, left visual and physical neglect, difficulty with transfers, decreased activity tolerance, decreased gait, and many other secondary effects following his CVA. Pt has been working on ambulation with a vale walker with home health, and his states he has walked around 100' a few times, but always with a therapist, as she does not feel comfortable walking with him yet. Pt exclusively gets around at time of evaluation in a manual wheelchair. Pt's transfers have been going fairly well, with his caregivers performing CGA, however pt will occasionally need assistance with placement of his left UE and LE due to neglect. Pt's biggest complaint at the moment is leg pain, his reports they have tried PT, Massage, CBD il, Tylenol, Oxycodine, and Gabapentin, all with minimal benefit. Prior to CVA, pt was fully independent in all activities. Pt and have garegivers 8 hrs a day for assistance. Prior Treatments and Tests Craniotomy 04/16/19, Acute rehab, Skull fragment replacement 06/26/19, home health PT Prior Functional Status Baseline Function- ADL's Independent Baseline Function- Mobility Independent PT-OP-C Subjective Start: 09/17/19 18:00 Freq: Status: Active Protocol: Document 02/14/21 11:16 DCW (Rec: 02/14/21 12:00 DCW [id number]) OP-PT Subjective Patient Comments Patient Comments Pt notes today has been a little rough, but overall he is alright. PT-OP-D Balance Start: 08/04/20 14:14 Freq: Status: Active Protocol: Document 02/02/21 11:15 DCW (Rec: 02/02/21 11:56 DCW [id number]) Balance Tests Adler Balance Test Adler Balance Test Score 49/56 Adler Impairment Rating 1 to 19% Impaired (Score 45-55 ) Adler Balance Assessment Evaluation Sitting to Standing Ability Independent w/out Hands Unsupported Stance Safely- 2 minutes Sitting Unsupported, Feet on Floor Safely- 2 minutes Standing to Sitting Ability Safely, Minimal Hand Use Transfer Ability Safely, Minimal Hand Use Unsupported Stance- Eyes Closed Safely, 10 seconds Unsupported Stance- Eyes Open Independent, 1 minute Reaching Forward Standing Confidently, 10 inches Pick- Up Object From Floor Independent/Safe Look Behind Shoulder - Standing Shifts Weight Well Turning 360 Degrees Turns , < 4 secs Unsupported Stance, Alternating Feet on 4 Steps w/Supervision Stair Unsupported Tandem Stance Holds Tandem- 30 seconds Unilateral Leg Stance Lifts Leg/Unable to Hold Total Score Adler Total Score (out of 56 points) 49 Adler Impairment Rating 1 to 19% Impaired (Score 45-55 ) PT-OP-E Functional Tests Start: 05/04/20 15:15 Freq: Status: Active Protocol: Document 02/02/21 11:15 DCW (Rec: 02/02/21 11:56 DCW [id number]) Functional Tests 6 Minute Walk Test Distance 1374 Device Used none Comments 3.82 ft/sec Timed Up and Go (TUG) Score 8.2 seconds Comments 3-trial average (8.58, 8.35, 7 .67) TUG Impairment Rating 0% Impaired (Score 10) PT-OP-G Mobility & Gait Start: 09/17/19 18:00 Freq: Status: Active Protocol: Document 02/02/21 11:15 DCW (Rec: 02/02/21 11:56 DCW [id number]) OP Gait Assessment Gait Gait Assistance Required: Standby Assistance Distance (Feet) 1,374 Assistive Devices Assistive Device None Gait Deviations General Gait Pattern Antalgic,Ataxic,Flexed Trunk Factors Limiting Gait Function Factors Limiting Gait Function Abnormal Tonal Influences, Decreased Activity Tolerance, Decreased Sensation,Decreased Strength Stair Climbing Evaluation Evaluation Level of Assist On Stairs Standby Assistance Devices Stair Climbing Assistive Devices Right Railing Technique/Endurance Stair Climbing Direction Ascend and Descend Stair Climbing Technique Step Over Step Number of Steps Climbed 4 PT-OP-H Neuro Start: 09/17/19 18:00 Freq: Status: Active Protocol: Document 02/02/21 11:15 DCW (Rec: 02/02/21 11:56 DCW [id number]) Deep Tendon Reflex & Clonus Assessment Deep Tendon Reflex Left Achilles Deep Tendon Reflex 4+ Brisk Left Patellar Deep Tendon Reflex 3+ Normal But Brisk Ankle Clonus Left Clonus Assessment Sustained Muscle Tone Tone Assessment Left Lower Extremity Flexor Tone Description Mild Hypotonicity PT-OP-M Strength Start: 09/17/19 18:00 Freq: Status: Active Protocol: Document 02/02/21 11:15 DCW (Rec: 02/02/21 11:56 DCW [id number]) Hip Strength Hip Manual Muscle Testing Left Flexion (L2) 4 Good Extension (S1) 5 Normal Abduction 4 Good Adduction 4+ Good+ External Rotation 4 Good Internal Rotation 4 Good Knee Strength Knee Manual Muscle Testing Left Flexion (S2) 4 Good Extension (L3) 5 Normal Ankle/Foot Strength Ankle and Foot Manual Muscle Testing Left Dorsiflexion (L4) 4 Good Plantarflexion (S1) 4 Good Inversion 4- Good- Eversion (S1) 3 Fair PT-OP-Q Treatments Start: 09/17/19 18:00 Freq: Status: Active Protocol: Document 02/14/21 11:16 DCW (Rec: 02/14/21 12:00 DCW [id number]) Gym Equipment Shuttle Recovery Unilateral Heel Raises Details Left Resistance 25# Reps/Time calf stretch at end Unilateral Squats Details Left Resistance 62# Shuttle Recovery Platform Stable Bilateral Squats Resistance 100# Shuttle Recovery Platform Stable Shuttle Balance Red Details Wide SRIDEVI, Staggered Comments Min Ax1 Therapeutic Exercises Standing Exercises Marching Standing Exercise Name Toe-taps at rail Side bilateral Resistance 5# Equipment Used 6 step Gait Training Gait Activity No AD Description No AD Device Used None Level of Assistance SBA Distance/Duration 950' x1 Comments VCs to promote heel-toe gait, extend left knee during stance phase Neuro Re-Education Treatment Balance Activities Cone transfers Details Bending down ball pick-up from cone, kick cone over, ball toss to target PT-OP-R Modalities Start: 09/17/19 18:00 Freq: Status: Active Protocol: Document 02/14/21 11:16 DCW (Rec: 02/14/21 12:00 DCW [id number]) Electric Stimulation Electric Stimulation Interferential Current (IFC) Body Location L ant ankle Duration (Minutes) 15 Patient Position Sitting Combined With Heat/Cold Cold Pack PT-OP-S Aquatic Treatment Start: 09/17/19 18:00 Freq: Status: Active Protocol: Document 01/30/20 12:30 LJ (Rec: 01/30/20 14:54 LJ [id number]) Aquatics Treatment Pool Entry/Exit Pool Entry/Exit Method Lift Assistance Minimal Assistance Water Walking Slow motion Water Level Chest Level Walking Equipment wet vest, UE float, #2.5 ankle wt Level of Assistance Standby Assistance,Contact Guard Assistance,Moderate Assistance Comments emphasis on LLE extension stance phase January Water Level Chest Level Walking Equipment wet vest, UE float, #2.5 ankle wt Level of Assistance Standby Assistance,Contact Guard Assistance,Moderate Assistance,Verbal Cues Forward with emphasis on reciprocal gait pattern Water Level Chest Level Level of Assistance Standby Assistance,Contact Guard Assistance,Minimal Assistance,Verbal Cues Comments wetvest, sm float on LUE, #3. 75 ankle wt on LLE start stop walking forward and backward Water Level Chest Level Walking Equipment vest Level of Assistance Contact Guard Assistance, Verbal Cues Comments wetvest, sm float on LUE, #3. 75 ankle wt on LLE Sideways Water Level Chest Level Walking Equipment wet vest, UE float, #2.5 ankle wt Level of Assistance Standby Assistance,Contact Guard Assistance,Minimal Assistance,Verbal Cues Lower Extremity Exercises SL aquats Details HH on wall Body Position Standing Water Level Waist Level Equipment wetvest Reps/Duration 2x10 LLE Comments VC to extend knee knee extensions Details seated in lift chair Equipment Ankle Weight- 5.0# Reps/Duration 20 B Comments seated in lift SLS Details bracing LLE Body Position Standing Water Level Chest Level Equipment vest Reps/Duration 1 min marching at wall Water Level Chest Level Reps/Duration 2 min Comments opposite UE/LE tapping wall squats Body Position Standing Water Level Chest Level Reps/Duration 20x Lower Extremity Stretches adductors Comments seated in chair Gastroc Body Position Sitting Reps/Duration 2 x 45 sec B Comments manual assist hip flexors Details at wall Body Position Standing Water Level Waist Level Reps/Duration 2x45 Comments manually assisted HS Details at wall Body Position Sitting Water Level Waist Level Equipment wet vest Reps/Duration 2x45 Comments sitting in lift chair assisted Upper Extremity Exercises breastroke UE's Body Position Standing Water Level Chest Level Reps/Duration 3 min Comments during walking and deep water hor ab/ad Water Level Chest Level Comments during side walking, CGA Balance step ups Details step ups/down using boxes Body Position Standing Water Level Waist Level Equipment 8 boxes Comments mod verbal cues for coordination [place] Activities [place] Activities Bicycle,Cross Country Equipment wet vest, white noodle Duration 7 min Comments Guy and cues for vertical alignmernt. PT-OP-T Assessment and Plan Start: 09/17/19 18:00 Freq: Status: Active Protocol: Document 02/14/21 11:16 DCW (Rec: 02/14/21 12:00 DCW [id number]) Physical Therapy Assessment Impairments Impairments Activity Tolerance,Balance, Coordination,Functional Activities,Functional Mobility ,Gait,Pain,ROM,Sensation, Strength,Tone,Transfers Goals Six Impairment Decreased Static Balance Short Term Goal (STG) Pt to score <9 seconds on TUG STG Duration Met Supervisor [employer] Goal (LTG) MET - Pt to score 35/56 or better on the Adler Balance MET - Pt to score 45/56 or better on the Adler Balance Scale NEW GOAL: Pt to score 53/56 on Daler Balance Scale LTG Duration 05/05/21 Five Impairment Pt uses R rail and step-over gait pattern ascending stairs Supervisor [employer] Goal (LTG) Pt to ascend/descend stairs independently without use of rail LTG Duration 05/05/21 - Improving Four Impairment Pt demonstrates strength impairment throughout left LE Half-Way Goal (LTG) Pt to display MMT >3+/5 through L LE LTG Duration 05/05/21 - Met /c all but inversion Three Impairment Pt SBA for transfers and bed mobility d/t Left Neglect Supervisor [employer] Goal (LTG) Pt to demonstrate independent transfers and bed mobility with an ability to address left LE and UE 80% of the time LTG Duration Met Two Impairment Pt ambulates 280' CGA /s an AD Short Term Goal (STG) Pt to ambulate 400' SBA independently STG Duration Met Supervisor [employer] Goal (LTG) Pt to ambulate 800' during 6 MWT Independently without SBA LTG Duration 05/05/21 - Improving (1374' SBA ) One Impairment Pt does not have an appropriate home exercise program Short Term Goal (STG) Pt to be independent and compliant with an appropriate HEP STG Duration Met Assessment Summary Assessment Pt did well today, still having some increased SOB, however did not cause decrease in participation. Physical Therapy Plan Frequency and Duration Frequency of Treatment 2x/Week Duration of Treatment 3 months Plan of Care Start Date 02/02/21 Plan of Care End Date 05/05/21 Therapeutic Interventions Therapeutic Interventions Aquatic Therapy,Balance Training,Coordination Training ,Gait Training,Home Exercise Program,Manual Therapy, Neuromuscular Re-education, Patient/Caregiver Education, Self-Care/Home Management, Therapeutic Activities, Therapeutic Exercises Modalities Cold Pack/Ice Massage,Electric Stimulation,Hot Packs, Ultrasound Next Visit Focus/Plan Next Note Type Treatment Note Next Visit Plan SLS, visual scanning, increased activity tolerance
--- NOTE | 2021-02-21 12:04 | PT.OTN ---
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) Physical Therapy Treatment Note PT-OP-A Visit Information Start: 09/17/19 18:00 Freq: Status: Active Protocol: Document 02/21/21 11:18 DCW (Rec: 02/21/21 12:03 DCW [id number]) Out-Patient Physical Therapy Visit Information Visit Information Visit Type Treatment Note Visit Start Time 11:18 Visit Stop Time 12:12 Total Visit Minutes 54 Visit Number 103 Number of FRONT SERVICES AGENT Visits 0 Evaluation Information Evaluation Date 09/17/19 PT-OP-B Current Condition Start: 09/17/19 18:00 Freq: Status: Active Protocol: Document 09/17/19 12:00 DCW (Rec: 09/18/19 10:29 DCW [id number]) Current Condition History of Current Condition Onset Date 04/14/19 Current Complaints Hemiparesis secondary to CVA History of Current Condition Pt is a 69 year old male presenting to skilled outpatient physical therapy with left-side neglect, hemiparesis, loss of independence, and difficulty walking following an intraparenchymal hemorrhage on 04/14/19. Pt was transferred from [facility] to [facility], where a craniotomy was performed on 04/16/19. Pt completed 7 weeks of rehab/ recovery at [facility], and then underwent a second surgery on 06/26/19 to replace the skull fragment. Pt was then at an acute rehab facility 06/30-07/18/19, and since then has been receiving home health physical therapy. Pt presents today with limited left-sided function, left visual and physical neglect, difficulty with transfers, decreased activity tolerance, decreased gait, and many other secondary effects following his CVA. Pt has been working on ambulation with a vale walker with home health, and his states he has walked around 100' a few times, but always with a therapist, as she does not feel comfortable walking with him yet. Pt exclusively gets around at time of evaluation in a manual wheelchair. Pt's transfers have been going fairly well, with his caregivers performing CGA, however pt will occasionally need assistance with placement of his left UE and LE due to neglect. Pt's biggest complaint at the moment is leg pain, his reports they have tried PT, Massage, CBD il, Tylenol, Oxycodine, and Gabapentin, all with minimal benefit. Prior to CVA, pt was fully independent in all activities. Pt and have garegivers 8 hrs a day for assistance. Prior Treatments and Tests Craniotomy 04/16/19, Acute rehab, Skull fragment replacement 06/26/19, home health PT Prior Functional Status Baseline Function- ADL's Independent Baseline Function- Mobility Independent PT-OP-C Subjective Start: 09/17/19 18:00 Freq: Status: Active Protocol: Document 02/21/21 11:18 DCW (Rec: 02/21/21 12:03 DCW [id number]) OP-PT Subjective Patient Comments Patient Comments Pt still bothered by difficulty breathing with most activity, worried he is going backwards, hopeful he will get answers with follow-up visit at [facility] next week. PT-OP-D Balance Start: 08/04/20 14:14 Freq: Status: Active Protocol: Document 02/02/21 11:15 DCW (Rec: 02/02/21 11:56 DCW [id number]) Balance Tests Adler Balance Test Adler Balance Test Score 49/56 Adler Impairment Rating 1 to 19% Impaired (Score 45-55 ) Adler Balance Assessment Evaluation Sitting to Standing Ability Independent w/out Hands Unsupported Stance Safely- 2 minutes Sitting Unsupported, Feet on Floor Safely- 2 minutes Standing to Sitting Ability Safely, Minimal Hand Use Transfer Ability Safely, Minimal Hand Use Unsupported Stance- Eyes Closed Safely, 10 seconds Unsupported Stance- Eyes Open Independent, 1 minute Reaching Forward Standing Confidently, 10 inches Pick- Up Object From Floor Independent/Safe Look Behind Shoulder - Standing Shifts Weight Well Turning 360 Degrees Turns , < 4 secs Unsupported Stance, Alternating Feet on 4 Steps w/Supervision Stair Unsupported Tandem Stance Holds Tandem- 30 seconds Unilateral Leg Stance Lifts Leg/Unable to Hold Total Score Adler Total Score (out of 56 points) 49 Adler Impairment Rating 1 to 19% Impaired (Score 45-55 ) PT-OP-E Functional Tests Start: 05/04/20 15:15 Freq: Status: Active Protocol: Document 02/02/21 11:15 DCW (Rec: 02/02/21 11:56 DCW [id number]) Functional Tests 6 Minute Walk Test Distance 1374 Device Used none Comments 3.82 ft/sec Timed Up and Go (TUG) Score 8.2 seconds Comments 3-trial average (8.58, 8.35, 7 .67) TUG Impairment Rating 0% Impaired (Score 10) PT-OP-G Mobility & Gait Start: 09/17/19 18:00 Freq: Status: Active Protocol: Document 02/02/21 11:15 DCW (Rec: 02/02/21 11:56 DCW [id number]) OP Gait Assessment Gait Gait Assistance Required: Standby Assistance Distance (Feet) 1,374 Assistive Devices Assistive Device None Gait Deviations General Gait Pattern Antalgic,Ataxic,Flexed Trunk Factors Limiting Gait Function Factors Limiting Gait Function Abnormal Tonal Influences, Decreased Activity Tolerance, Decreased Sensation,Decreased Strength Stair Climbing Evaluation Evaluation Level of Assist On Stairs Standby Assistance Devices Stair Climbing Assistive Devices Right Railing Technique/Endurance Stair Climbing Direction Ascend and Descend Stair Climbing Technique Step Over Step Number of Steps Climbed 4 PT-OP-H Neuro Start: 09/17/19 18:00 Freq: Status: Active Protocol: Document 02/02/21 11:15 DCW (Rec: 02/02/21 11:56 DCW [id number]) Deep Tendon Reflex & Clonus Assessment Deep Tendon Reflex Left Achilles Deep Tendon Reflex 4+ Brisk Left Patellar Deep Tendon Reflex 3+ Normal But Brisk Ankle Clonus Left Clonus Assessment Sustained Muscle Tone Tone Assessment Left Lower Extremity Flexor Tone Description Mild Hypotonicity PT-OP-M Strength Start: 09/17/19 18:00 Freq: Status: Active Protocol: Document 02/02/21 11:15 DCW (Rec: 02/02/21 11:56 DCW [id number]) Hip Strength Hip Manual Muscle Testing Left Flexion (L2) 4 Good Extension (S1) 5 Normal Abduction 4 Good Adduction 4+ Good+ External Rotation 4 Good Internal Rotation 4 Good Knee Strength Knee Manual Muscle Testing Left Flexion (S2) 4 Good Extension (L3) 5 Normal Ankle/Foot Strength Ankle and Foot Manual Muscle Testing Left Dorsiflexion (L4) 4 Good Plantarflexion (S1) 4 Good Inversion 4- Good- Eversion (S1) 3 Fair PT-OP-Q Treatments Start: 09/17/19 18:00 Freq: Status: Active Protocol: Document 02/21/21 11:18 DCW (Rec: 02/21/21 12:03 DCW [id number]) Gym Equipment Shuttle Recovery Unilateral Heel Raises Details Left Resistance 25# Reps/Time calf stretch at end Unilateral Squats Details Left Resistance 62# Shuttle Recovery Platform Stable Bilateral Squats Resistance 100# Shuttle Recovery Platform Stable Shuttle Balance Red Details Wide SRIDEVI, Staggered Comments Min Ax1 Therapeutic Exercises Sitting Exercises LAQ Sitting Exercise Name LAQ Side bilateral Resistance 5# Equipment Used ankle weights Reps/Minutes x15 Hamstring Curls Sitting Exercise Name HS curl Side left Resistance Lv 3 Equipment Used T-band Gait Training Gait Activity No AD Description No AD Device Used None Level of Assistance SBA Distance/Duration 550' x1 Comments VCs to promote heel-toe gait, extend left knee during stance phase PT-OP-R Modalities Start: 09/17/19 18:00 Freq: Status: Active Protocol: Document 02/21/21 11:18 DCW (Rec: 02/21/21 12:03 DCW [id number]) Electric Stimulation Electric Stimulation Interferential Current (IFC) Body Location L ant ankle Duration (Minutes) 15 Patient Position Sitting Combined With Heat/Cold Cold Pack PT-OP-S Aquatic Treatment Start: 09/17/19 18:00 Freq: Status: Active Protocol: Document 01/30/20 12:30 LJ (Rec: 01/30/20 14:54 LJ [id number]) Aquatics Treatment Pool Entry/Exit Pool Entry/Exit Method Lift Assistance Minimal Assistance Water Walking Slow motion Water Level Chest Level Walking Equipment wet vest, UE float, #2.5 ankle wt Level of Assistance Standby Assistance,Contact Guard Assistance,Moderate Assistance Comments emphasis on LLE extension stance phase January Water Level Chest Level Walking Equipment wet vest, UE float, #2.5 ankle wt Level of Assistance Standby Assistance,Contact Guard Assistance,Moderate Assistance,Verbal Cues Forward with emphasis on reciprocal gait pattern Water Level Chest Level Level of Assistance Standby Assistance,Contact Guard Assistance,Minimal Assistance,Verbal Cues Comments wetvest, sm float on LUE, #3. 75 ankle wt on LLE start stop walking forward and backward Water Level Chest Level Walking Equipment vest Level of Assistance Contact Guard Assistance, Verbal Cues Comments wetvest, sm float on LUE, #3. 75 ankle wt on LLE Sideways Water Level Chest Level Walking Equipment wet vest, UE float, #2.5 ankle wt Level of Assistance Standby Assistance,Contact Guard Assistance,Minimal Assistance,Verbal Cues Lower Extremity Exercises SL aquats Details HH on wall Body Position Standing Water Level Waist Level Equipment wetvest Reps/Duration 2x10 LLE Comments VC to extend knee knee extensions Details seated in lift chair Equipment Ankle Weight- 5.0# Reps/Duration 20 B Comments seated in lift SLS Details bracing LLE Body Position Standing Water Level Chest Level Equipment vest Reps/Duration 1 min marching at wall Water Level Chest Level Reps/Duration 2 min Comments opposite UE/LE tapping wall squats Body Position Standing Water Level Chest Level Reps/Duration 20x Lower Extremity Stretches adductors Comments seated in chair Gastroc Body Position Sitting Reps/Duration 2 x 45 sec B Comments manual assist hip flexors Details at wall Body Position Standing Water Level Waist Level Reps/Duration 2x45 Comments manually assisted HS Details at wall Body Position Sitting Water Level Waist Level Equipment wet vest Reps/Duration 2x45 Comments sitting in lift chair assisted Upper Extremity Exercises breastroke UE's Body Position Standing Water Level Chest Level Reps/Duration 3 min Comments during walking and deep water hor ab/ad Water Level Chest Level Comments during side walking, CGA Balance step ups Details step ups/down using boxes Body Position Standing Water Level Waist Level Equipment 8 boxes Comments mod verbal cues for coordination Cannon Ball Activities Cannon Ball Activities Bicycle,Cross Country Equipment wet vest, white noodle Duration 7 min Comments Guy and cues for vertical alignmernt. PT-OP-T Assessment and Plan Start: 09/17/19 18:00 Freq: Status: Active Protocol: Document 02/21/21 11:18 DCW (Rec: 02/21/21 12:03 DCW [id number]) Physical Therapy Assessment Impairments Impairments Activity Tolerance,Balance, Coordination,Functional Activities,Functional Mobility ,Gait,Pain,ROM,Sensation, Strength,Tone,Transfers Goals Six Impairment Decreased Static Balance Short Term Goal (STG) Pt to score <9 seconds on TUG STG Duration Met Long-Term Goal (LTG) MET - Pt to score 35/56 or better on the Adler Balance MET - Pt to score 45/56 or better on the Adler Balance Scale NEW GOAL: Pt to score 53/56 on Adler Balance Scale LTG Duration 05/05/21 Five Impairment Pt uses R rail and step-over gait pattern ascending stairs Mr Teacher Goal (LTG) Pt to ascend/descend stairs independently without use of rail LTG Duration 05/05/21 - Improving Four Impairment Pt demonstrates strength impairment throughout left LE Long-Term Goal (LTG) Pt to display MMT >3+/5 through L LE LTG Duration 05/05/21 - Met /c all but inversion Three Impairment Pt SBA for transfers and bed mobility d/t Left Neglect Mr Teacher Goal (LTG) Pt to demonstrate independent transfers and bed mobility with an ability to address left LE and UE 80% of the time LTG Duration Met Two Impairment Pt ambulates 280' CGA /s an AD Short Term Goal (STG) Pt to ambulate 400' SBA independently STG Duration Met Mr Teacher Goal (LTG) Pt to ambulate 800' during 6 MWT Independently without SBA LTG Duration 05/05/21 - Improving (1374' SBA ) One Impairment Pt does not have an appropriate home exercise program Short Term Goal (STG) Pt to be independent and compliant with an appropriate HEP STG Duration Met Assessment Summary Assessment Pt wanted to take it easy today, he was too SOB after his appointment last Sunday that he had to cancel Sunday's appointment, so he would rather not push himself as much so he can make it to both appointments. Physical Therapy Plan Frequency and Duration Frequency of Treatment 2x/Week Duration of Treatment 3 months Plan of Care Start Date 02/02/21 Plan of Care End Date 05/05/21 Therapeutic Interventions Therapeutic Interventions Aquatic Therapy,Balance Training,Coordination Training ,Gait Training,Home Exercise Program,Manual Therapy, Neuromuscular Re-education, Patient/Caregiver Education, Self-Care/Home Management, Therapeutic Activities, Therapeutic Exercises Modalities Cold Pack/Ice Massage,Electric Stimulation,Hot Packs, Ultrasound Next Visit Focus/Plan Next Note Type Treatment Note Next Visit Plan SLS, visual scanning, increased activity tolerance
--- NOTE | 2021-02-23 11:57 | PT.OTN ---
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) Physical Therapy Treatment Note PT-OP-A Visit Information Start: 09/17/19 18:00 Freq: Status: Active Protocol: Document 02/23/21 11:16 DCW (Rec: 02/23/21 11:57 DCW [id number]) Out-Patient Physical Therapy Visit Information Visit Information Visit Type Treatment Note Visit Start Time 11:16 Visit Stop Time 12:06 Total Visit Minutes 50 Visit Number 104 Number of [employer] Visits 0 Evaluation Information Evaluation Date 09/17/19 PT-OP-B Current Condition Start: 09/17/19 18:00 Freq: Status: Active Protocol: Document 09/17/19 12:00 DCW (Rec: 09/18/19 10:29 DCW [id number]) Current Condition History of Current Condition Onset Date 04/14/19 Current Complaints Hemiparesis secondary to CVA History of Current Condition Pt is a 69 year old male presenting to skilled outpatient physical therapy with left-side neglect, hemiparesis, loss of independence, and difficulty walking following an intraparenchymal hemorrhage on 04/14/19. Pt was transferred from [facility] to [facility], where a craniotomy was performed on 04/16/19. Pt completed 7 weeks of rehab/ recovery at [facility], and then underwent a second surgery on 06/26/19 to replace the skull fragment. Pt was then at an acute rehab facility 06/30-07/18/19, and since then has been receiving home health physical therapy. Pt presents today with limited left-sided function, left visual and physical neglect, difficulty with transfers, decreased activity tolerance, decreased gait, and many other secondary effects following his CVA. Pt has been working on ambulation with a vale walker with home health, and his states he has walked around 100' a few times, but always with a therapist, as she does not feel comfortable walking with him yet. Pt exclusively gets around at time of evaluation in a manual wheelchair. Pt's transfers have been going fairly well, with his caregivers performing CGA, however pt will occasionally need assistance with placement of his left UE and LE due to neglect. Pt's biggest complaint at the moment is leg pain, his reports they have tried PT, Massage, CBD il, Tylenol, Oxycodine, and Gabapentin, all with minimal benefit. Prior to CVA, pt was fully independent in all activities. Pt and have garegivers 8 hrs a day for assistance. Prior Treatments and Tests Craniotomy 04/16/19, Acute rehab, Skull fragment replacement 06/26/19, home health PT Prior Functional Status Baseline Function- ADL's Independent Baseline Function- Mobility Independent PT-OP-C Subjective Start: 09/17/19 18:00 Freq: Status: Active Protocol: Document 02/23/21 11:16 DCW (Rec: 02/23/21 11:57 DCW [id number]) OP-PT Subjective Patient Comments Patient Comments Pt feeling a little better about his breathing today. Notes he had cramping in both feet in the middle of the night. Does note some issues with his vision after getting new glasses. PT-OP-D Balance Start: 08/04/20 14:14 Freq: Status: Active Protocol: Document 02/02/21 11:15 DCW (Rec: 02/02/21 11:56 DCW [id number]) Balance Tests Adler Balance Test Adler Balance Test Score 49/56 Adler Impairment Rating 1 to 19% Impaired (Score 45-55 ) Adler Balance Assessment Evaluation Sitting to Standing Ability Independent w/out Hands Unsupported Stance Safely- 2 minutes Sitting Unsupported, Feet on Floor Safely- 2 minutes Standing to Sitting Ability Safely, Minimal Hand Use Transfer Ability Safely, Minimal Hand Use Unsupported Stance- Eyes Closed Safely, 10 seconds Unsupported Stance- Eyes Open Independent, 1 minute Reaching Forward Standing Confidently, 10 inches Pick- Up Object From Floor Independent/Safe Look Behind Shoulder - Standing Shifts Weight Well Turning 360 Degrees Turns , < 4 secs Unsupported Stance, Alternating Feet on 4 Steps w/Supervision Stair Unsupported Tandem Stance Holds Tandem- 30 seconds Unilateral Leg Stance Lifts Leg/Unable to Hold Total Score Adler Total Score (out of 56 points) 49 Daler Impairment Rating 1 to 19% Impaired (Score 45-55 ) PT-OP-E Functional Tests Start: 05/04/20 15:15 Freq: Status: Active Protocol: Document 02/02/21 11:15 DCW (Rec: 02/02/21 11:56 DCW [id number]) Functional Tests 6 Minute Walk Test Distance 1374 Device Used none Comments 3.82 ft/sec Timed Up and Go (TUG) Score 8.2 seconds Comments 3-trial average (8.58, 8.35, 7 .67) TUG Impairment Rating 0% Impaired (Score 10) PT-OP-G Mobility & Gait Start: 09/17/19 18:00 Freq: Status: Active Protocol: Document 02/02/21 11:15 DCW (Rec: 02/02/21 11:56 DCW [id number]) OP Gait Assessment Gait Gait Assistance Required: Standby Assistance Distance (Feet) 1,374 Assistive Devices Assistive Device None Gait Deviations General Gait Pattern Antalgic,Ataxic,Flexed Trunk Factors Limiting Gait Function Factors Limiting Gait Function Abnormal Tonal Influences, Decreased Activity Tolerance, Decreased Sensation,Decreased Strength Stair Climbing Evaluation Evaluation Level of Assist On Stairs Standby Assistance Devices Stair Climbing Assistive Devices Right Railing Technique/Endurance Stair Climbing Direction Ascend and Descend Stair Climbing Technique Step Over Step Number of Steps Climbed 4 PT-OP-H Neuro Start: 09/17/19 18:00 Freq: Status: Active Protocol: Document 02/02/21 11:15 DCW (Rec: 02/02/21 11:56 DCW [id number]) Deep Tendon Reflex & Clonus Assessment Deep Tendon Reflex Left Achilles Deep Tendon Reflex 4+ Brisk Left Patellar Deep Tendon Reflex 3+ Normal But Brisk Ankle Clonus Left Clonus Assessment Sustained Muscle Tone Tone Assessment Left Lower Extremity Flexor Tone Description Mild Hypotonicity PT-OP-M Strength Start: 09/17/19 18:00 Freq: Status: Active Protocol: Document 02/02/21 11:15 DCW (Rec: 02/02/21 11:56 DCW [id number]) Hip Strength Hip Manual Muscle Testing Left Flexion (L2) 4 Good Extension (S1) 5 Normal Abduction 4 Good Adduction 4+ Good+ External Rotation 4 Good Internal Rotation 4 Good Knee Strength Knee Manual Muscle Testing Left Flexion (S2) 4 Good Extension (L3) 5 Normal Ankle/Foot Strength Ankle and Foot Manual Muscle Testing Left Dorsiflexion (L4) 4 Good Plantarflexion (S1) 4 Good Inversion 4- Good- Eversion (S1) 3 Fair PT-OP-Q Treatments Start: 09/17/19 18:00 Freq: Status: Active Protocol: Document 02/23/21 11:16 DCW (Rec: 02/23/21 11:57 DCW [id number]) Gym Equipment Shuttle Balance Red Details Wide SRIDEVI, Staggered Comments Min Ax1 Gait Training Gait Activity No AD Description No AD Device Used None Level of Assistance SBA Distance/Duration 950' x1 Comments VCs to promote heel-toe gait, extend left knee during stance phase Neuro Re-Education Treatment Balance Activities Cone transfers Details Bending down ball pick-up from cone, kick cone over, ball toss to target PT-OP-R Modalities Start: 09/17/19 18:00 Freq: Status: Active Protocol: Document 02/23/21 11:16 DCW (Rec: 02/23/21 11:57 DCW [id number]) Electric Stimulation Electric Stimulation Interferential Current (IFC) Body Location L ant ankle Duration (Minutes) 15 Patient Position Sitting Combined With Heat/Cold Cold Pack PT-OP-S Aquatic Treatment Start: 09/17/19 18:00 Freq: Status: Active Protocol: Document 01/30/20 12:30 LJ (Rec: 01/30/20 14:54 LJ [id number]) Aquatics Treatment Pool Entry/Exit Pool Entry/Exit Method Lift Assistance Minimal Assistance Water Walking Slow motion Water Level Chest Level Walking Equipment wet vest, UE float, #2.5 ankle wt Level of Assistance Standby Assistance,Contact Guard Assistance,Moderate Assistance Comments emphasis on LLE extension stance phase January Water Level Chest Level Walking Equipment wet vest, UE float, #2.5 ankle wt Level of Assistance Standby Assistance,Contact Guard Assistance,Moderate Assistance,Verbal Cues Forward with emphasis on reciprocal gait pattern Water Level Chest Level Level of Assistance Standby Assistance,Contact Guard Assistance,Minimal Assistance,Verbal Cues Comments wetvest, sm float on LUE, #3. 75 ankle wt on LLE start stop walking forward and backward Water Level Chest Level Walking Equipment vest Level of Assistance Contact Guard Assistance, Verbal Cues Comments wetvest, sm float on LUE, #3. 75 ankle wt on LLE Sideways Water Level Chest Level Walking Equipment wet vest, UE float, #2.5 ankle wt Level of Assistance Standby Assistance,Contact Guard Assistance,Minimal Assistance,Verbal Cues Lower Extremity Exercises SL aquats Details HH on wall Body Position Standing Water Level Waist Level Equipment wetvest Reps/Duration 2x10 LLE Comments VC to extend knee knee extensions Details seated in lift chair Equipment Ankle Weight- 5.0# Reps/Duration 20 B Comments seated in lift SLS Details bracing LLE Body Position Standing Water Level Chest Level Equipment vest Reps/Duration 1 min marching at wall Water Level Chest Level Reps/Duration 2 min Comments opposite UE/LE tapping wall squats Body Position Standing Water Level Chest Level Reps/Duration 20x Lower Extremity Stretches adductors Comments seated in chair Gastroc Body Position Sitting Reps/Duration 2 x 45 sec B Comments manual assist hip flexors Details at wall Body Position Standing Water Level Waist Level Reps/Duration 2x45 Comments manually assisted HS Details at wall Body Position Sitting Water Level Waist Level Equipment wet vest Reps/Duration 2x45 Comments sitting in lift chair assisted Upper Extremity Exercises breastroke UE's Body Position Standing Water Level Chest Level Reps/Duration 3 min Comments during walking and deep water hor ab/ad Water Level Chest Level Comments during side walking, CGA Balance step ups Details step ups/down using boxes Body Position Standing Water Level Waist Level Equipment 8 boxes Comments mod verbal cues for coordination [place] Activities [place] Activities Bicycle,Cross Country Equipment wet vest, white noodle Duration 7 min Comments Guy and cues for vertical alignmernt. PT-OP-T Assessment and Plan Start: 09/17/19 18:00 Freq: Status: Active Protocol: Document 02/23/21 11:16 DCW (Rec: 02/23/21 11:57 DCW [id number]) Physical Therapy Assessment Impairments Impairments Activity Tolerance,Balance, Coordination,Functional Activities,Functional Mobility ,Gait,Pain,ROM,Sensation, Strength,Tone,Transfers Goals Six Impairment Decreased Static Balance Short Term Goal (STG) Pt to score <9 seconds on TUG STG Duration Met Cardiovascular Specialist Goal (LTG) MET - Pt to score 35/56 or better on the Adler Balance MET - Pt to score 45/56 or better on the Adler Balance Scale NEW GOAL: Pt to score 53/56 on Adler Balance Scale LTG Duration 05/05/21 Five Impairment Pt uses R rail and step-over gait pattern ascending stairs Cardiovascular Specialist Goal (LTG) Pt to ascend/descend stairs independently without use of rail LTG Duration 05/05/21 - Improving Four Impairment Pt demonstrates strength impairment throughout left LE Cardiovascular Specialist Goal (LTG) Pt to display MMT >3+/5 through L LE LTG Duration 05/05/21 - Met /c all but inversion Three Impairment Pt SBA for transfers and bed mobility d/t Left Neglect Assisted Goal (LTG) Pt to demonstrate independent transfers and bed mobility with an ability to address left LE and UE 80% of the time LTG Duration Met Two Impairment Pt ambulates 280' CGA /s an AD Short Term Goal (STG) Pt to ambulate 400' SBA independently STG Duration Met Assisted Goal (LTG) Pt to ambulate 800' during 6 MWT Independently without SBA LTG Duration 05/05/21 - Improving (1374' SBA ) One Impairment Pt does not have an appropriate home exercise program Short Term Goal (STG) Pt to be independent and compliant with an appropriate HEP STG Duration Met Assessment Summary Assessment Pt tolerated treatment well today, less difficulty breathing, noted he felt much better after today's session. Physical Therapy Plan Frequency and Duration Frequency of Treatment 2x/Week Duration of Treatment 3 months Plan of Care Start Date 02/02/21 Plan of Care End Date 05/05/21 Therapeutic Interventions Therapeutic Interventions Aquatic Therapy,Balance Training,Coordination Training ,Gait Training,Home Exercise Program,Manual Therapy, Neuromuscular Re-education, Patient/Caregiver Education, Self-Care/Home Management, Therapeutic Activities, Therapeutic Exercises Modalities Cold Pack/Ice Massage,Electric Stimulation,Hot Packs, Ultrasound Next Visit Focus/Plan Next Note Type Treatment Note Next Visit Plan SLS, visual scanning, increased activity tolerance
--- NOTE | 2021-02-28 12:02 | PT.OTN ---
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) Physical Therapy Treatment Note PT-OP-A Visit Information Start: 09/17/19 18:00 Freq: Status: Active Protocol: Document 02/28/21 11:15 DCW (Rec: 02/28/21 12:02 DCW [id number]) Out-Patient Physical Therapy Visit Information Visit Information Visit Type Treatment Note Visit Start Time 11:15 Visit Stop Time 12:10 Total Visit Minutes 55 Visit Number 105 Number of MANAGER OF ENTERPRISE Visits 0 Evaluation Information Evaluation Date 09/17/19 PT-OP-B Current Condition Start: 09/17/19 18:00 Freq: Status: Active Protocol: Document 09/17/19 12:00 DCW (Rec: 09/18/19 10:29 DCW [id number]) Current Condition History of Current Condition Onset Date 04/14/19 Current Complaints Hemiparesis secondary to CVA History of Current Condition Pt is a 69 year old male presenting to skilled outpatient physical therapy with left-side neglect, hemiparesis, loss of independence, and difficulty walking following an intraparenchymal hemorrhage on 04/14/19. Pt was transferred from [facility] to [facility], where a craniotomy was performed on 04/16/19. Pt completed 7 weeks of rehab/ recovery at [facility], and then underwent a second surgery on 06/26/19 to replace the skull fragment. Pt was then at an acute rehab facility 06/30-07/18/19, and since then has been receiving home health physical therapy. Pt presents today with limited left-sided function, left visual and physical neglect, difficulty with transfers, decreased activity tolerance, decreased gait, and many other secondary effects following his CVA. Pt has been working on ambulation with a vale walker with home health, and his states he has walked around 100' a few times, but always with a therapist, as she does not feel comfortable walking with him yet. Pt exclusively gets around at time of evaluation in a manual wheelchair. Pt's transfers have been going fairly well, with his caregivers performing CGA, however pt will occasionally need assistance with placement of his left UE and LE due to neglect. Pt's biggest complaint at the moment is leg pain, his reports they have tried PT, Massage, CBD il, Tylenol, Oxycodine, and Gabapentin, all with minimal benefit. Prior to CVA, pt was fully independent in all activities. Pt and have garegivers 8 hrs a day for assistance. Prior Treatments and Tests Craniotomy 04/16/19, Acute rehab, Skull fragment replacement 06/26/19, home health PT Prior Functional Status Baseline Function- ADL's Independent Baseline Function- Mobility Independent PT-OP-C Subjective Start: 09/17/19 18:00 Freq: Status: Active Protocol: Document 02/28/21 11:15 DCW (Rec: 02/28/21 12:02 DCW [id number]) OP-PT Subjective Patient Comments Patient Comments Pt states he has a treadmill at home, would like to try the clinic's to see how well he does. PT-OP-D Balance Start: 08/04/20 14:14 Freq: Status: Active Protocol: Document 02/02/21 11:15 DCW (Rec: 02/02/21 11:56 DCW [id number]) Balance Tests Adler Balance Test Adler Balance Test Score 49/56 Adler Impairment Rating 1 to 19% Impaired (Score 45-55 ) Adler Balance Assessment Evaluation Sitting to Standing Ability Independent w/out Hands Unsupported Stance Safely- 2 minutes Sitting Unsupported, Feet on Floor Safely- 2 minutes Standing to Sitting Ability Safely, Minimal Hand Use Transfer Ability Safely, Minimal Hand Use Unsupported Stance- Eyes Closed Safely, 10 seconds Unsupported Stance- Eyes Open Independent, 1 minute Reaching Forward Standing Confidently, 10 inches Pick- Up Object From Floor Independent/Safe Look Behind Shoulder - Standing Shifts Weight Well Turning 360 Degrees Turns , < 4 secs Unsupported Stance, Alternating Feet on 4 Steps w/Supervision Stair Unsupported Tandem Stance Holds Tandem- 30 seconds Unilateral Leg Stance Lifts Leg/Unable to Hold Total Score Adler Total Score (out of 56 points) 49 Adler Impairment Rating 1 to 19% Impaired (Score 45-55 ) PT-OP-E Functional Tests Start: 05/04/20 15:15 Freq: Status: Active Protocol: Document 02/02/21 11:15 DCW (Rec: 02/02/21 11:56 DCW [id number]) Functional Tests 6 Minute Walk Test Distance 1374 Device Used none Comments 3.82 ft/sec Timed Up and Go (TUG) Score 8.2 seconds Comments 3-trial average (8.58, 8.35, 7 .67) TUG Impairment Rating 0% Impaired (Score 10) PT-OP-G Mobility & Gait Start: 09/17/19 18:00 Freq: Status: Active Protocol: Document 02/02/21 11:15 DCW (Rec: 02/02/21 11:56 DCW [id number]) OP Gait Assessment Gait Gait Assistance Required: Standby Assistance Distance (Feet) 1,374 Assistive Devices Assistive Device None Gait Deviations General Gait Pattern Antalgic,Ataxic,Flexed Trunk Factors Limiting Gait Function Factors Limiting Gait Function Abnormal Tonal Influences, Decreased Activity Tolerance, Decreased Sensation,Decreased Strength Stair Climbing Evaluation Evaluation Level of Assist On Stairs Standby Assistance Devices Stair Climbing Assistive Devices Right Railing Technique/Endurance Stair Climbing Direction Ascend and Descend Stair Climbing Technique Step Over Step Number of Steps Climbed 4 PT-OP-H Neuro Start: 09/17/19 18:00 Freq: Status: Active Protocol: Document 02/02/21 11:15 DCW (Rec: 02/02/21 11:56 DCW [id number]) Deep Tendon Reflex & Clonus Assessment Deep Tendon Reflex Left Achilles Deep Tendon Reflex 4+ Brisk Left Patellar Deep Tendon Reflex 3+ Normal But Brisk Ankle Clonus Left Clonus Assessment Sustained Muscle Tone Tone Assessment Left Lower Extremity Flexor Tone Description Mild Hypotonicity PT-OP-M Strength Start: 09/17/19 18:00 Freq: Status: Active Protocol: Document 02/02/21 11:15 DCW (Rec: 02/02/21 11:56 DCW [id number]) Hip Strength Hip Manual Muscle Testing Left Flexion (L2) 4 Good Extension (S1) 5 Normal Abduction 4 Good Adduction 4+ Good+ External Rotation 4 Good Internal Rotation 4 Good Knee Strength Knee Manual Muscle Testing Left Flexion (S2) 4 Good Extension (L3) 5 Normal Ankle/Foot Strength Ankle and Foot Manual Muscle Testing Left Dorsiflexion (L4) 4 Good Plantarflexion (S1) 4 Good Inversion 4- Good- Eversion (S1) 3 Fair PT-OP-Q Treatments Start: 09/17/19 18:00 Freq: Status: Active Protocol: Document 02/28/21 11:15 DCW (Rec: 02/28/21 12:02 DCW [id number]) Cardio Equipment Treadmill Duration (Minutes) 5 Speed 0.5->0.7 Gym Equipment Shuttle Recovery Unilateral Heel Raises Details Left Resistance 25# Reps/Time calf stretch at end Unilateral Squats Details Left Resistance 62# Shuttle Recovery Platform Stable Bilateral Squats Resistance 100# Shuttle Recovery Platform Stable Gait Training Gait Activity No AD Description No AD Device Used None Level of Assistance SBA Distance/Duration 200' x1 Comments VCs to promote heel-toe gait, extend left knee during stance phase Neuro Re-Education Treatment Balance Activities Hurdles Details Hurdles Comments Min Ax1 Cone transfers Details Bending down ball pick-up from cone, kick cone over, ball toss to target PT-OP-R Modalities Start: 09/17/19 18:00 Freq: Status: Active Protocol: Document 02/28/21 11:15 DCW (Rec: 02/28/21 12:02 DCW [id number]) Electric Stimulation Electric Stimulation Interferential Current (IFC) Body Location L ant ankle Duration (Minutes) 15 Patient Position Sitting Combined With Heat/Cold Cold Pack PT-OP-S Aquatic Treatment Start: 09/17/19 18:00 Freq: Status: Active Protocol: Document 01/30/20 12:30 LJ (Rec: 01/30/20 14:54 LJ [id number]) Aquatics Treatment Pool Entry/Exit Pool Entry/Exit Method Lift Assistance Minimal Assistance Water Walking Slow motion Water Level Chest Level Walking Equipment wet vest, UE float, #2.5 ankle wt Level of Assistance Standby Assistance,Contact Guard Assistance,Moderate Assistance Comments emphasis on LLE extension stance phase January Water Level Chest Level Walking Equipment wet vest, UE float, #2.5 ankle wt Level of Assistance Standby Assistance,Contact Guard Assistance,Moderate Assistance,Verbal Cues Forward with emphasis on reciprocal gait pattern Water Level Chest Level Level of Assistance Standby Assistance,Contact Guard Assistance,Minimal Assistance,Verbal Cues Comments wetvest, sm float on LUE, #3. 75 ankle wt on LLE start stop walking forward and backward Water Level Chest Level Walking Equipment vest Level of Assistance Contact Guard Assistance, Verbal Cues Comments wetvest, sm float on LUE, #3. 75 ankle wt on LLE Sideways Water Level Chest Level Walking Equipment wet vest, UE float, #2.5 ankle wt Level of Assistance Standby Assistance,Contact Guard Assistance,Minimal Assistance,Verbal Cues Lower Extremity Exercises SL aquats Details HH on wall Body Position Standing Water Level Waist Level Equipment wetvest Reps/Duration 2x10 LLE Comments VC to extend knee knee extensions Details seated in lift chair Equipment Ankle Weight- 5.0# Reps/Duration 20 B Comments seated in lift SLS Details bracing LLE Body Position Standing Water Level Chest Level Equipment vest Reps/Duration 1 min marching at wall Water Level Chest Level Reps/Duration 2 min Comments opposite UE/LE tapping wall squats Body Position Standing Water Level Chest Level Reps/Duration 20x Lower Extremity Stretches adductors Comments seated in chair Gastroc Body Position Sitting Reps/Duration 2 x 45 sec B Comments manual assist hip flexors Details at wall Body Position Standing Water Level Waist Level Reps/Duration 2x45 Comments manually assisted HS Details at wall Body Position Sitting Water Level Waist Level Equipment wet vest Reps/Duration 2x45 Comments sitting in lift chair assisted Upper Extremity Exercises breastroke UE's Body Position Standing Water Level Chest Level Reps/Duration 3 min Comments during walking and deep water hor ab/ad Water Level Chest Level Comments during side walking, CGA Balance step ups Details step ups/down using boxes Body Position Standing Water Level Waist Level Equipment 8 boxes Comments mod verbal cues for coordination [place] Activities [place] Activities Bicycle,Cross Country Equipment wet vest, white noodle Duration 7 min Comments Guy and cues for vertical alignmernt. PT-OP-T Assessment and Plan Start: 09/17/19 18:00 Freq: Status: Active Protocol: Document 02/28/21 11:15 DCW (Rec: 02/28/21 12:02 DCW [id number]) Physical Therapy Assessment Impairments Impairments Activity Tolerance,Balance, Coordination,Functional Activities,Functional Mobility ,Gait,Pain,ROM,Sensation, Strength,Tone,Transfers Goals Six Impairment Decreased Static Balance Short Term Goal (STG) Pt to score <9 seconds on TUG STG Duration Met Skilled Nursing Goal (LTG) MET - Pt to score 35/56 or better on the Adler Balance MET - Pt to score 45/56 or better on the Adler Balance Scale NEW GOAL: Pt to score 53/56 on Adler Balance Scale LTG Duration 05/05/21 Five Impairment Pt uses R rail and step-over gait pattern ascending stairs Skilled Nursing Goal (LTG) Pt to ascend/descend stairs independently without use of rail LTG Duration 05/05/21 - Improving Four Impairment Pt demonstrates strength impairment throughout left LE Skilled Nursing Goal (LTG) Pt to display MMT >3+/5 through L LE LTG Duration 05/05/21 - Met /c all but inversion Three Impairment Pt SBA for transfers and bed mobility d/t Left Neglect Senior Account Manager Goal (LTG) Pt to demonstrate independent transfers and bed mobility with an ability to address left LE and UE 80% of the time LTG Duration Met Two Impairment Pt ambulates 280' CGA /s an AD Short Term Goal (STG) Pt to ambulate 400' SBA independently STG Duration Met Senior Account Manager Goal (LTG) Pt to ambulate 800' during 6 MWT Independently without SBA LTG Duration 05/05/21 - Improving (1374' SBA ) One Impairment Pt does not have an appropriate home exercise program Short Term Goal (STG) Pt to be independent and compliant with an appropriate HEP STG Duration Met Assessment Summary Assessment Pt did well with treadmill today, no notable safety concerns. Pt still having some difficulty with SOB, but appears to be overall doing better with it. Physical Therapy Plan Frequency and Duration Frequency of Treatment 2x/Week Duration of Treatment 3 months Plan of Care Start Date 02/02/21 Plan of Care End Date 05/05/21 Therapeutic Interventions Therapeutic Interventions Aquatic Therapy,Balance Training,Coordination Training ,Gait Training,Home Exercise Program,Manual Therapy, Neuromuscular Re-education, Patient/Caregiver Education, Self-Care/Home Management, Therapeutic Activities, Therapeutic Exercises Modalities Cold Pack/Ice Massage,Electric Stimulation,Hot Packs, Ultrasound Next Visit Focus/Plan Next Note Type Treatment Note Next Visit Plan SLS, visual scanning, increased activity tolerance
--- NOTE | 2021-03-02 12:01 | PT.OTN ---
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) Physical Therapy Treatment Note PT-OP-A Visit Information Start: 09/17/19 18:00 Freq: Status: Active Protocol: Document 03/02/21 11:20 DCW (Rec: 03/02/21 12:01 DCW [id number]) Out-Patient Physical Therapy Visit Information Visit Information Visit Type Treatment Note Visit Start Time 11:20 Visit Stop Time 12:10 Total Visit Minutes 50 Visit Number 106 Number of SECOND STEWARD Visits 0 Evaluation Information Evaluation Date 09/17/19 PT-OP-B Current Condition Start: 09/17/19 18:00 Freq: Status: Active Protocol: Document 09/17/19 12:00 DCW (Rec: 09/18/19 10:29 DCW [id number]) Current Condition History of Current Condition Onset Date 04/14/19 Current Complaints Hemiparesis secondary to CVA History of Current Condition Pt is a 69 year old male presenting to skilled outpatient physical therapy with left-side neglect, hemiparesis, loss of independence, and difficulty walking following an intraparenchymal hemorrhage on 04/14/19. Pt was transferred from [facility] to [facility], where a craniotomy was performed on 04/16/19. Pt completed 7 weeks of rehab/ recovery at [facility], and then underwent a second surgery on 06/26/19 to replace the skull fragment. Pt was then at an acute rehab facility 06/30-07/18/19, and since then has been receiving home health physical therapy. Pt presents today with limited left-sided function, left visual and physical neglect, difficulty with transfers, decreased activity tolerance, decreased gait, and many other secondary effects following his CVA. Pt has been working on ambulation with a vale walker with home health, and his states he has walked around 100' a few times, but always with a therapist, as she does not feel comfortable walking with him yet. Pt exclusively gets around at time of evaluation in a manual wheelchair. Pt's transfers have been going fairly well, with his caregivers performing CGA, however pt will occasionally need assistance with placement of his left UE and LE due to neglect. Pt's biggest complaint at the moment is leg pain, his reports they have tried PT, Massage, CBD il, Tylenol, Oxycodine, and Gabapentin, all with minimal benefit. Prior to CVA, pt was fully independent in all activities. Pt and have garegivers 8 hrs a day for assistance. Prior Treatments and Tests Craniotomy 04/16/19, Acute rehab, Skull fragment replacement 06/26/19, home health PT Prior Functional Status Baseline Function- ADL's Independent Baseline Function- Mobility Independent PT-OP-C Subjective Start: 09/17/19 18:00 Freq: Status: Active Protocol: Document 03/02/21 11:20 DCW (Rec: 03/02/21 12:01 DCW [id number]) OP-PT Subjective Patient Comments Patient Comments Pt notes he got steroids from his ENT in hopes to improve his breathing. PT-OP-D Balance Start: 08/04/20 14:14 Freq: Status: Active Protocol: Document 02/02/21 11:15 DCW (Rec: 02/02/21 11:56 DCW [id number]) Balance Tests Adler Balance Test Adler Balance Test Score 49/56 Adler Impairment Rating 1 to 19% Impaired (Score 45-55 ) Adler Balance Assessment Evaluation Sitting to Standing Ability Independent w/out Hands Unsupported Stance Safely- 2 minutes Sitting Unsupported, Feet on Floor Safely- 2 minutes Standing to Sitting Ability Safely, Minimal Hand Use Transfer Ability Safely, Minimal Hand Use Unsupported Stance- Eyes Closed Safely, 10 seconds Unsupported Stance- Eyes Open Independent, 1 minute Reaching Forward Standing Confidently, 10 inches Pick- Up Object From Floor Independent/Safe Look Behind Shoulder - Standing Shifts Weight Well Turning 360 Degrees Turns , < 4 secs Unsupported Stance, Alternating Feet on 4 Steps w/Supervision Stair Unsupported Tandem Stance Holds Tandem- 30 seconds Unilateral Leg Stance Lifts Leg/Unable to Hold Total Score Adler Total Score (out of 56 points) 49 Adler Impairment Rating 1 to 19% Impaired (Score 45-55 ) PT-OP-E Functional Tests Start: 05/04/20 15:15 Freq: Status: Active Protocol: Document 02/02/21 11:15 DCW (Rec: 02/02/21 11:56 DCW [id number]) Functional Tests 6 Minute Walk Test Distance 1374 Device Used none Comments 3.82 ft/sec Timed Up and Go (TUG) Score 8.2 seconds Comments 3-trial average (8.58, 8.35, 7 .67) TUG Impairment Rating 0% Impaired (Score 10) PT-OP-G Mobility & Gait Start: 09/17/19 18:00 Freq: Status: Active Protocol: Document 02/02/21 11:15 DCW (Rec: 02/02/21 11:56 DCW [id number]) OP Gait Assessment Gait Gait Assistance Required: Standby Assistance Distance (Feet) 1,374 Assistive Devices Assistive Device None Gait Deviations General Gait Pattern Antalgic,Ataxic,Flexed Trunk Factors Limiting Gait Function Factors Limiting Gait Function Abnormal Tonal Influences, Decreased Activity Tolerance, Decreased Sensation,Decreased Strength Stair Climbing Evaluation Evaluation Level of Assist On Stairs Standby Assistance Devices Stair Climbing Assistive Devices Right Railing Technique/Endurance Stair Climbing Direction Ascend and Descend Stair Climbing Technique Step Over Step Number of Steps Climbed 4 PT-OP-H Neuro Start: 09/17/19 18:00 Freq: Status: Active Protocol: Document 02/02/21 11:15 DCW (Rec: 02/02/21 11:56 DCW [id number]) Deep Tendon Reflex & Clonus Assessment Deep Tendon Reflex Left Achilles Deep Tendon Reflex 4+ Brisk Left Patellar Deep Tendon Reflex 3+ Normal But Brisk Ankle Clonus Left Clonus Assessment Sustained Muscle Tone Tone Assessment Left Lower Extremity Flexor Tone Description Mild Hypotonicity PT-OP-M Strength Start: 09/17/19 18:00 Freq: Status: Active Protocol: Document 02/02/21 11:15 DCW (Rec: 02/02/21 11:56 DCW [id number]) Hip Strength Hip Manual Muscle Testing Left Flexion (L2) 4 Good Extension (S1) 5 Normal Abduction 4 Good Adduction 4+ Good+ External Rotation 4 Good Internal Rotation 4 Good Knee Strength Knee Manual Muscle Testing Left Flexion (S2) 4 Good Extension (L3) 5 Normal Ankle/Foot Strength Ankle and Foot Manual Muscle Testing Left Dorsiflexion (L4) 4 Good Plantarflexion (S1) 4 Good Inversion 4- Good- Eversion (S1) 3 Fair PT-OP-Q Treatments Start: 09/17/19 18:00 Freq: Status: Active Protocol: Document 03/02/21 11:20 DCW (Rec: 03/02/21 12:01 DCW [id number]) Therapeutic Exercises Standing Exercises Hamstring Curl Standing Exercise Name HS Curl Side bilateral Resistance 10# SLS Standing Exercise Name SLS Equipment Used rail Comments CGA Abduction Standing Exercise Name L hip abduction Resistance 10# Toe-taps Standing Exercise Name Toe-taps Side bilateral Resistance 10# Equipment Used 6 step Gait Training Gait Activity No AD Description No AD Device Used None Level of Assistance SBA Distance/Duration 950' x1 Comments VCs to promote heel-toe gait, extend left knee during stance phase Neuro Re-Education Treatment Balance Activities Hurdles Details Hurdles Comments Min Ax1 Cone transfers Details Bending down ball pick-up from cone, kick cone over, ball toss to target PT-OP-R Modalities Start: 09/17/19 18:00 Freq: Status: Active Protocol: Document 03/02/21 11:20 DCW (Rec: 03/02/21 12:01 DCW [id number]) Electric Stimulation Electric Stimulation Interferential Current (IFC) Body Location L ant ankle Duration (Minutes) 15 Patient Position Sitting Combined With Heat/Cold Cold Pack PT-OP-S Aquatic Treatment Start: 09/17/19 18:00 Freq: Status: Active Protocol: Document 01/30/20 12:30 LJ (Rec: 01/30/20 14:54 LJ [id number]) Aquatics Treatment Pool Entry/Exit Pool Entry/Exit Method Lift Assistance Minimal Assistance Water Walking Slow motion Water Level Chest Level Walking Equipment wet vest, UE float, #2.5 ankle wt Level of Assistance Standby Assistance,Contact Guard Assistance,Moderate Assistance Comments emphasis on LLE extension stance phase January Water Level Chest Level Walking Equipment wet vest, UE float, #2.5 ankle wt Level of Assistance Standby Assistance,Contact Guard Assistance,Moderate Assistance,Verbal Cues Forward with emphasis on reciprocal gait pattern Water Level Chest Level Level of Assistance Standby Assistance,Contact Guard Assistance,Minimal Assistance,Verbal Cues Comments wetvest, sm float on LUE, #3. 75 ankle wt on LLE start stop walking forward and backward Water Level Chest Level Walking Equipment vest Level of Assistance Contact Guard Assistance, Verbal Cues Comments wetvest, sm float on LUE, #3. 75 ankle wt on LLE Sideways Water Level Chest Level Walking Equipment wet vest, UE float, #2.5 ankle wt Level of Assistance Standby Assistance,Contact Guard Assistance,Minimal Assistance,Verbal Cues Lower Extremity Exercises SL aquats Details HH on wall Body Position Standing Water Level Waist Level Equipment wetvest Reps/Duration 2x10 LLE Comments VC to extend knee knee extensions Details seated in lift chair Equipment Ankle Weight- 5.0# Reps/Duration 20 B Comments seated in lift SLS Details bracing LLE Body Position Standing Water Level Chest Level Equipment vest Reps/Duration 1 min marching at wall Water Level Chest Level Reps/Duration 2 min Comments opposite UE/LE tapping wall squats Body Position Standing Water Level Chest Level Reps/Duration 20x Lower Extremity Stretches adductors Comments seated in chair Gastroc Body Position Sitting Reps/Duration 2 x 45 sec B Comments manual assist hip flexors Details at wall Body Position Standing Water Level Waist Level Reps/Duration 2x45 Comments manually assisted HS Details at wall Body Position Sitting Water Level Waist Level Equipment wet vest Reps/Duration 2x45 Comments sitting in lift chair assisted Upper Extremity Exercises breastroke UE's Body Position Standing Water Level Chest Level Reps/Duration 3 min Comments during walking and deep water hor ab/ad Water Level Chest Level Comments during side walking, CGA Balance step ups Details step ups/down using boxes Body Position Standing Water Level Waist Level Equipment 8 boxes Comments mod verbal cues for coordination [place] Activities [place] Activities Bicycle,Cross Country Equipment wet vest, white noodle Duration 7 min Comments Guy and cues for vertical alignmernt. PT-OP-T Assessment and Plan Start: 09/17/19 18:00 Freq: Status: Active Protocol: Document 03/02/21 11:20 DCW (Rec: 03/02/21 12:01 DCW [id number]) Physical Therapy Assessment Impairments Impairments Activity Tolerance,Balance, Coordination,Functional Activities,Functional Mobility ,Gait,Pain,ROM,Sensation, Strength,Tone,Transfers Goals Six Impairment Decreased Static Balance Short Term Goal (STG) Pt to score <9 seconds on TUG STG Duration Met Lock Corner Machine Operator Goal (LTG) MET - Pt to score 35/56 or better on the Adler Balance MET - Pt to score 45/56 or better on the Adler Balance Scale NEW GOAL: Pt to score 53/56 on Adler Balance Scale LTG Duration 05/05/21 Five Impairment Pt uses R rail and step-over gait pattern ascending stairs Lock [place] Machine Operator Goal (LTG) Pt to ascend/descend stairs independently without use of rail LTG Duration 05/05/21 - Improving Four Impairment Pt demonstrates strength impairment throughout left LE [place] Machine Operator Goal (LTG) Pt to display MMT >3+/5 through L LE LTG Duration 05/05/21 - Met /c all but inversion Three Impairment Pt SBA for transfers and bed mobility d/t Left Neglect Residential Goal (LTG) Pt to demonstrate independent transfers and bed mobility with an ability to address left LE and UE 80% of the time LTG Duration Met Two Impairment Pt ambulates 280' CGA /s an AD Short Term Goal (STG) Pt to ambulate 400' SBA independently STG Duration Met Residential Goal (LTG) Pt to ambulate 800' during 6 MWT Independently without SBA LTG Duration 05/05/21 - Improving (1374' SBA ) One Impairment Pt does not have an appropriate home exercise program Short Term Goal (STG) Pt to be independent and compliant with an appropriate HEP STG Duration Met Assessment Summary Assessment Pt tolerated treatment well today, better with his breathing during gait. Physical Therapy Plan Frequency and Duration Frequency of Treatment 2x/Week Duration of Treatment 3 months Plan of Care Start Date 02/02/21 Plan of Care End Date 05/05/21 Therapeutic Interventions Therapeutic Interventions Aquatic Therapy,Balance Training,Coordination Training ,Gait Training,Home Exercise Program,Manual Therapy, Neuromuscular Re-education, Patient/Caregiver Education, Self-Care/Home Management, Therapeutic Activities, Therapeutic Exercises Modalities Cold Pack/Ice Massage,Electric Stimulation,Hot Packs, Ultrasound Next Visit Focus/Plan Next Note Type Treatment Note Next Visit Plan SLS, visual scanning, increased activity tolerance
--- NOTE | 2021-03-07 11:59 | PT.OTN ---
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) Physical Therapy Treatment Note PT-OP-A Visit Information Start: 09/17/19 18:00 Freq: Status: Active Protocol: Document 03/07/21 11:15 DCW (Rec: 03/07/21 11:59 DCW [id number]) Out-Patient Physical Therapy Visit Information Visit Information Visit Type Treatment Note Visit Start Time 11:15 Visit Stop Time 12:10 Total Visit Minutes 55 Visit Number 107 Number of APPRENTICE/LINEMAN Visits 0 Evaluation Information Evaluation Date 09/17/19 PT-OP-B Current Condition Start: 09/17/19 18:00 Freq: Status: Active Protocol: Document 09/17/19 12:00 DCW (Rec: 09/18/19 10:29 DCW [id number]) Current Condition History of Current Condition Onset Date 04/14/19 Current Complaints Hemiparesis secondary to CVA History of Current Condition Pt is a 69 year old male presenting to skilled outpatient physical therapy with left-side neglect, hemiparesis, loss of independence, and difficulty walking following an intraparenchymal hemorrhage on 04/14/19. Pt was transferred from [facility] to [facility], where a craniotomy was performed on 04/16/19. Pt completed 7 weeks of rehab/ recovery at [facility], and then underwent a second surgery on 06/26/19 to replace the skull fragment. Pt was then at an acute rehab facility 06/30-07/18/19, and since then has been receiving home health physical therapy. Pt presents today with limited left-sided function, left visual and physical neglect, difficulty with transfers, decreased activity tolerance, decreased gait, and many other secondary effects following his CVA. Pt has been working on ambulation with a vale walker with home health, and his states he has walked around 100' a few times, but always with a therapist, as she does not feel comfortable walking with him yet. Pt exclusively gets around at time of evaluation in a manual wheelchair. Pt's transfers have been going fairly well, with his caregivers performing CGA, however pt will occasionally need assistance with placement of his left UE and LE due to neglect. Pt's biggest complaint at the moment is leg pain, his reports they have tried PT, Massage, CBD il, Tylenol, Oxycodine, and Gabapentin, all with minimal benefit. Prior to CVA, pt was fully independent in all activities. Pt and have garegivers 8 hrs a day for assistance. Prior Treatments and Tests Craniotomy 04/16/19, Acute rehab, Skull fragment replacement 06/26/19, home health PT Prior Functional Status Baseline Function- ADL's Independent Baseline Function- Mobility Independent PT-OP-C Subjective Start: 09/17/19 18:00 Freq: Status: Active Protocol: Document 03/07/21 11:15 DCW (Rec: 03/07/21 11:59 DCW [id number]) OP-PT Subjective Patient Comments Patient Comments Pt reports he does not notice any improvement yet in his breathing after starting steroids. PT-OP-D Balance Start: 08/04/20 14:14 Freq: Status: Active Protocol: Document 02/02/21 11:15 DCW (Rec: 02/02/21 11:56 DCW [id number]) Balance Tests Adler Balance Test Adler Balance Test Score 49/56 Adler Impairment Rating 1 to 19% Impaired (Score 45-55 ) Adler Balance Assessment Evaluation Sitting to Standing Ability Independent w/out Hands Unsupported Stance Safely- 2 minutes Sitting Unsupported, Feet on Floor Safely- 2 minutes Standing to Sitting Ability Safely, Minimal Hand Use Transfer Ability Safely, Minimal Hand Use Unsupported Stance- Eyes Closed Safely, 10 seconds Unsupported Stance- Eyes Open Independent, 1 minute Reaching Forward Standing Confidently, 10 inches Pick- Up Object From Floor Independent/Safe Look Behind Shoulder - Standing Shifts Weight Well Turning 360 Degrees Turns , < 4 secs Unsupported Stance, Alternating Feet on 4 Steps w/Supervision Stair Unsupported Tandem Stance Holds Tandem- 30 seconds Unilateral Leg Stance Lifts Leg/Unable to Hold Total Score Adler Total Score (out of 56 points) 49 Adler Impairment Rating 1 to 19% Impaired (Score 45-55 ) PT-OP-E Functional Tests Start: 05/04/20 15:15 Freq: Status: Active Protocol: Document 02/02/21 11:15 DCW (Rec: 02/02/21 11:56 DCW [id number]) Functional Tests 6 Minute Walk Test Distance 1374 Device Used none Comments 3.82 ft/sec Timed Up and Go (TUG) Score 8.2 seconds Comments 3-trial average (8.58, 8.35, 7 .67) TUG Impairment Rating 0% Impaired (Score 10) PT-OP-G Mobility & Gait Start: 09/17/19 18:00 Freq: Status: Active Protocol: Document 02/02/21 11:15 DCW (Rec: 02/02/21 11:56 DCW [id number]) OP Gait Assessment Gait Gait Assistance Required: Standby Assistance Distance (Feet) 1,374 Assistive Devices Assistive Device None Gait Deviations General Gait Pattern Antalgic,Ataxic,Flexed Trunk Factors Limiting Gait Function Factors Limiting Gait Function Abnormal Tonal Influences, Decreased Activity Tolerance, Decreased Sensation,Decreased Strength Stair Climbing Evaluation Evaluation Level of Assist On Stairs Standby Assistance Devices Stair Climbing Assistive Devices Right Railing Technique/Endurance Stair Climbing Direction Ascend and Descend Stair Climbing Technique Step Over Step Number of Steps Climbed 4 PT-OP-H Neuro Start: 09/17/19 18:00 Freq: Status: Active Protocol: Document 02/02/21 11:15 DCW (Rec: 02/02/21 11:56 DCW [id number]) Deep Tendon Reflex & Clonus Assessment Deep Tendon Reflex Left Achilles Deep Tendon Reflex 4+ Brisk Left Patellar Deep Tendon Reflex 3+ Normal But Brisk Ankle Clonus Left Clonus Assessment Sustained Muscle Tone Tone Assessment Left Lower Extremity Flexor Tone Description Mild Hypotonicity PT-OP-M Strength Start: 09/17/19 18:00 Freq: Status: Active Protocol: Document 02/02/21 11:15 DCW (Rec: 02/02/21 11:56 DCW [id number]) Hip Strength Hip Manual Muscle Testing Left Flexion (L2) 4 Good Extension (S1) 5 Normal Abduction 4 Good Adduction 4+ Good+ External Rotation 4 Good Internal Rotation 4 Good Knee Strength Knee Manual Muscle Testing Left Flexion (S2) 4 Good Extension (L3) 5 Normal Ankle/Foot Strength Ankle and Foot Manual Muscle Testing Left Dorsiflexion (L4) 4 Good Plantarflexion (S1) 4 Good Inversion 4- Good- Eversion (S1) 3 Fair PT-OP-Q Treatments Start: 09/17/19 18:00 Freq: Status: Active Protocol: Document 03/07/21 11:15 DCW (Rec: 03/07/21 11:59 DCW [id number]) Gym Equipment Shuttle Balance Red Details Wide SRIDEVI, Staggered Comments Min Ax1 Therapeutic Exercises Standing Exercises Hamstring Curl Standing Exercise Name HS Curl Side bilateral Resistance 10# SLS Standing Exercise Name SLS Equipment Used rail Comments CGA Abduction Standing Exercise Name Hip abduction Side bilateral Resistance 10# Gait Training Gait Activity No AD Description No AD Device Used None Level of Assistance SBA Distance/Duration 950' x1 Comments VCs to promote heel-toe gait, extend left knee during stance phase Neuro Re-Education Treatment Balance Activities Hurdles Details Hurdles Comments Min Ax1 Cone transfers Details Bending down ball pick-up from cone, kick cone over, ball toss to target PT-OP-R Modalities Start: 09/17/19 18:00 Freq: Status: Active Protocol: Document 03/07/21 11:15 DCW (Rec: 03/07/21 11:59 DCW [id number]) Electric Stimulation Electric Stimulation Interferential Current (IFC) Body Location L ant ankle Duration (Minutes) 15 Patient Position Sitting Combined With Heat/Cold Cold Pack PT-OP-S Aquatic Treatment Start: 09/17/19 18:00 Freq: Status: Active Protocol: Document 01/30/20 12:30 LJ (Rec: 01/30/20 14:54 LJ [id number]) Aquatics Treatment Pool Entry/Exit Pool Entry/Exit Method Lift Assistance Minimal Assistance Water Walking Slow motion Water Level Chest Level Walking Equipment wet vest, UE float, #2.5 ankle wt Level of Assistance Standby Assistance,Contact Guard Assistance,Moderate Assistance Comments emphasis on LLE extension stance phase January Water Level Chest Level Walking Equipment wet vest, UE float, #2.5 ankle wt Level of Assistance Standby Assistance,Contact Guard Assistance,Moderate Assistance,Verbal Cues Forward with emphasis on reciprocal gait pattern Water Level Chest Level Level of Assistance Standby Assistance,Contact Guard Assistance,Minimal Assistance,Verbal Cues Comments wetvest, sm float on LUE, #3. 75 ankle wt on LLE start stop walking forward and backward Water Level Chest Level Walking Equipment vest Level of Assistance Contact Guard Assistance, Verbal Cues Comments wetvest, sm float on LUE, #3. 75 ankle wt on LLE Sideways Water Level Chest Level Walking Equipment wet vest, UE float, #2.5 ankle wt Level of Assistance Standby Assistance,Contact Guard Assistance,Minimal Assistance,Verbal Cues Lower Extremity Exercises SL aquats Details HH on wall Body Position Standing Water Level Waist Level Equipment wetvest Reps/Duration 2x10 LLE Comments VC to extend knee knee extensions Details seated in lift chair Equipment Ankle Weight- 5.0# Reps/Duration 20 B Comments seated in lift SLS Details bracing LLE Body Position Standing Water Level Chest Level Equipment vest Reps/Duration 1 min marching at wall Water Level Chest Level Reps/Duration 2 min Comments opposite UE/LE tapping wall squats Body Position Standing Water Level Chest Level Reps/Duration 20x Lower Extremity Stretches adductors Comments seated in chair Gastroc Body Position Sitting Reps/Duration 2 x 45 sec B Comments manual assist hip flexors Details at wall Body Position Standing Water Level Waist Level Reps/Duration 2x45 Comments manually assisted HS Details at wall Body Position Sitting Water Level Waist Level Equipment wet vest Reps/Duration 2x45 Comments sitting in lift chair assisted Upper Extremity Exercises breastroke UE's Body Position Standing Water Level Chest Level Reps/Duration 3 min Comments during walking and deep water hor ab/ad Water Level Chest Level Comments during side walking, CGA Balance step ups Details step ups/down using boxes Body Position Standing Water Level Waist Level Equipment 8 boxes Comments mod verbal cues for coordination [place] Activities [place] Activities Bicycle,Cross Country Equipment wet vest, white noodle Duration 7 min Comments Guy and cues for vertical alignmernt. PT-OP-T Assessment and Plan Start: 09/17/19 18:00 Freq: Status: Active Protocol: Document 03/07/21 11:15 DCW (Rec: 03/07/21 11:59 DCW [id number]) Physical Therapy Assessment Impairments Impairments Activity Tolerance,Balance, Coordination,Functional Activities,Functional Mobility ,Gait,Pain,ROM,Sensation, Strength,Tone,Transfers Goals Six Impairment Decreased Static Balance Short Term Goal (STG) Pt to score <9 seconds on TUG STG Duration Met Roller Picker Goal (LTG) MET - Pt to score 35/56 or better on the Adler Balance MET - Pt to score 45/56 or better on the Adler Balance Scale NEW GOAL: Pt to score 53/56 on Adler Balance Scale LTG Duration 05/05/21 Five Impairment Pt uses R rail and step-over gait pattern ascending stairs Fci Goal (LTG) Pt to ascend/descend stairs independently without use of rail LTG Duration 05/05/21 - Improving Four Impairment Pt demonstrates strength impairment throughout left LE Fci Goal (LTG) Pt to display MMT >3+/5 through L LE LTG Duration 05/05/21 - Met /c all but inversion Three Impairment Pt SBA for transfers and bed mobility d/t Left Neglect Fci Goal (LTG) Pt to demonstrate independent transfers and bed mobility with an ability to address left LE and UE 80% of the time LTG Duration Met Two Impairment Pt ambulates 280' CGA /s an AD Short Term Goal (STG) Pt to ambulate 400' SBA independently STG Duration Met Fci Goal (LTG) Pt to ambulate 800' during 6 MWT Independently without SBA LTG Duration 05/05/21 - Improving (1374' SBA ) One Impairment Pt does not have an appropriate home exercise program Short Term Goal (STG) Pt to be independent and compliant with an appropriate HEP STG Duration Met Assessment Summary Assessment Although he still loses his breath fairly quickly, pt has been getting better able returning to baseline breathing with rest more quickly over the past week. Physical Therapy Plan Frequency and Duration Frequency of Treatment 2x/Week Duration of Treatment 3 months Plan of Care Start Date 02/02/21 Plan of Care End Date 05/05/21 Therapeutic Interventions Therapeutic Interventions Aquatic Therapy,Balance Training,Coordination Training ,Gait Training,Home Exercise Program,Manual Therapy, Neuromuscular Re-education, Patient/Caregiver Education, Self-Care/Home Management, Therapeutic Activities, Therapeutic Exercises Modalities Cold Pack/Ice Massage,Electric Stimulation,Hot Packs, Ultrasound Next Visit Focus/Plan Next Note Type Treatment Note Next Visit Plan SLS, visual scanning, increased activity tolerance
--- NOTE | 2021-03-09 12:02 | PT.OTN ---
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) Physical Therapy Treatment Note PT-OP-A Visit Information Start: 09/17/19 18:00 Freq: Status: Active Protocol: Document 03/09/21 11:20 DCW (Rec: 03/09/21 12:02 DCW [id number]) Out-Patient Physical Therapy Visit Information Visit Information Visit Type Treatment Note Visit Start Time 11:20 Visit Stop Time 12:10 Total Visit Minutes 50 Visit Number 106 Number of GAUGER CHIEF DELIVERY Visits 0 Evaluation Information Evaluation Date 09/17/19 PT-OP-B Current Condition Start: 09/17/19 18:00 Freq: Status: Active Protocol: Document 09/17/19 12:00 DCW (Rec: 09/18/19 10:29 DCW [id number]) Current Condition History of Current Condition Onset Date 04/14/19 Current Complaints Hemiparesis secondary to CVA History of Current Condition Pt is a 69 year old male presenting to skilled outpatient physical therapy with left-side neglect, hemiparesis, loss of independence, and difficulty walking following an intraparenchymal hemorrhage on 04/14/19. Pt was transferred from [facility] to [facility], where a craniotomy was performed on 04/16/19. Pt completed 7 weeks of rehab/ recovery at [facility], and then underwent a second surgery on 06/26/19 to replace the skull fragment. Pt was then at an acute rehab facility 06/30-07/18/19, and since then has been receiving home health physical therapy. Pt presents today with limited left-sided function, left visual and physical neglect, difficulty with transfers, decreased activity tolerance, decreased gait, and many other secondary effects following his CVA. Pt has been working on ambulation with a vale walker with home health, and his states he has walked around 100' a few times, but always with a therapist, as she does not feel comfortable walking with him yet. Pt exclusively gets around at time of evaluation in a manual wheelchair. Pt's transfers have been going fairly well, with his caregivers performing CGA, however pt will occasionally need assistance with placement of his left UE and LE due to neglect. Pt's biggest complaint at the moment is leg pain, his reports they have tried PT, Massage, CBD il, Tylenol, Oxycodine, and Gabapentin, all with minimal benefit. Prior to CVA, pt was fully independent in all activities. Pt and have garegivers 8 hrs a day for assistance. Prior Treatments and Tests Craniotomy 04/16/19, Acute rehab, Skull fragment replacement 06/26/19, home health PT Prior Functional Status Baseline Function- ADL's Independent Baseline Function- Mobility Independent PT-OP-C Subjective Start: 09/17/19 18:00 Freq: Status: Active Protocol: Document 03/09/21 11:20 DCW (Rec: 03/09/21 12:02 DCW [id number]) OP-PT Subjective Patient Comments Patient Comments Pt would like to try the treadmill again today. PT-OP-D Balance Start: 08/04/20 14:14 Freq: Status: Active Protocol: Document 02/02/21 11:15 DCW (Rec: 02/02/21 11:56 DCW [id number]) Balance Tests Adler Balance Test Adler Balance Test Score 49/56 Adler Impairment Rating 1 to 19% Impaired (Score 45-55 ) Adler Balance Assessment Evaluation Sitting to Standing Ability Independent w/out Hands Unsupported Stance Safely- 2 minutes Sitting Unsupported, Feet on Floor Safely- 2 minutes Standing to Sitting Ability Safely, Minimal Hand Use Transfer Ability Safely, Minimal Hand Use Unsupported Stance- Eyes Closed Safely, 10 seconds Unsupported Stance- Eyes Open Independent, 1 minute Reaching Forward Standing Confidently, 10 inches Pick- Up Object From Floor Independent/Safe Look Behind Shoulder - Standing Shifts Weight Well Turning 360 Degrees Turns , < 4 secs Unsupported Stance, Alternating Feet on 4 Steps w/Supervision Stair Unsupported Tandem Stance Holds Tandem- 30 seconds Unilateral Leg Stance Lifts Leg/Unable to Hold Total Score Adler Total Score (out of 56 points) 49 Adler Impairment Rating 1 to 19% Impaired (Score 45-55 ) PT-OP-E Functional Tests Start: 05/04/20 15:15 Freq: Status: Active Protocol: Document 02/02/21 11:15 DCW (Rec: 02/02/21 11:56 DCW [id number]) Functional Tests 6 Minute Walk Test Distance 1374 Device Used none Comments 3.82 ft/sec Timed Up and Go (TUG) Score 8.2 seconds Comments 3-trial average (8.58, 8.35, 7 .67) TUG Impairment Rating 0% Impaired (Score 10) PT-OP-G Mobility & Gait Start: 09/17/19 18:00 Freq: Status: Active Protocol: Document 02/02/21 11:15 DCW (Rec: 02/02/21 11:56 DCW [id number]) OP Gait Assessment Gait Gait Assistance Required: Standby Assistance Distance (Feet) 1,374 Assistive Devices Assistive Device None Gait Deviations General Gait Pattern Antalgic,Ataxic,Flexed Trunk Factors Limiting Gait Function Factors Limiting Gait Function Abnormal Tonal Influences, Decreased Activity Tolerance, Decreased Sensation,Decreased Strength Stair Climbing Evaluation Evaluation Level of Assist On Stairs Standby Assistance Devices Stair Climbing Assistive Devices Right Railing Technique/Endurance Stair Climbing Direction Ascend and Descend Stair Climbing Technique Step Over Step Number of Steps Climbed 4 PT-OP-H Neuro Start: 09/17/19 18:00 Freq: Status: Active Protocol: Document 02/02/21 11:15 DCW (Rec: 02/02/21 11:56 DCW [id number]) Deep Tendon Reflex & Clonus Assessment Deep Tendon Reflex Left Achilles Deep Tendon Reflex 4+ Brisk Left Patellar Deep Tendon Reflex 3+ Normal But Brisk Ankle Clonus Left Clonus Assessment Sustained Muscle Tone Tone Assessment Left Lower Extremity Flexor Tone Description Mild Hypotonicity PT-OP-M Strength Start: 09/17/19 18:00 Freq: Status: Active Protocol: Document 02/02/21 11:15 DCW (Rec: 02/02/21 11:56 DCW [id number]) Hip Strength Hip Manual Muscle Testing Left Flexion (L2) 4 Good Extension (S1) 5 Normal Abduction 4 Good Adduction 4+ Good+ External Rotation 4 Good Internal Rotation 4 Good Knee Strength Knee Manual Muscle Testing Left Flexion (S2) 4 Good Extension (L3) 5 Normal Ankle/Foot Strength Ankle and Foot Manual Muscle Testing Left Dorsiflexion (L4) 4 Good Plantarflexion (S1) 4 Good Inversion 4- Good- Eversion (S1) 3 Fair PT-OP-Q Treatments Start: 09/17/19 18:00 Freq: Status: Active Protocol: Document 03/09/21 11:20 DCW (Rec: 03/09/21 12:02 DCW [id number]) Cardio Equipment Treadmill Duration (Minutes) 10 Speed 1.4 Incline 0 Other 0.17 miles Neuro Re-Education Treatment Balance Activities Hurdles Details Hurdles Comments Min Ax1 Cone transfers Details Bending down ball pick-up from cone, kick cone over, ball toss to target PT-OP-R Modalities Start: 09/17/19 18:00 Freq: Status: Active Protocol: Document 03/09/21 11:20 DCW (Rec: 03/09/21 12:02 DCW [id number]) Electric Stimulation Electric Stimulation Interferential Current (IFC) Body Location L ant ankle Duration (Minutes) 15 Patient Position Sitting Combined With Heat/Cold Cold Pack PT-OP-S Aquatic Treatment Start: 09/17/19 18:00 Freq: Status: Active Protocol: Document 01/30/20 12:30 LJ (Rec: 01/30/20 14:54 LJ [id number]) Aquatics Treatment Pool Entry/Exit Pool Entry/Exit Method Lift Assistance Minimal Assistance Water Walking Slow motion Water Level Chest Level Walking Equipment wet vest, UE float, #2.5 ankle wt Level of Assistance Standby Assistance,Contact Guard Assistance,Moderate Assistance Comments emphasis on LLE extension stance phase January Water Level Chest Level Walking Equipment wet vest, UE float, #2.5 ankle wt Level of Assistance Standby Assistance,Contact Guard Assistance,Moderate Assistance,Verbal Cues Forward with emphasis on reciprocal gait pattern Water Level Chest Level Level of Assistance Standby Assistance,Contact Guard Assistance,Minimal Assistance,Verbal Cues Comments wetvest, sm float on LUE, #3. 75 ankle wt on LLE start stop walking forward and backward Water Level Chest Level Walking Equipment vest Level of Assistance Contact Guard Assistance, Verbal Cues Comments wetvest, sm float on LUE, #3. 75 ankle wt on LLE Sideways Water Level Chest Level Walking Equipment wet vest, UE float, #2.5 ankle wt Level of Assistance Standby Assistance,Contact Guard Assistance,Minimal Assistance,Verbal Cues Lower Extremity Exercises SL aquats Details HH on wall Body Position Standing Water Level Waist Level Equipment wetvest Reps/Duration 2x10 LLE Comments VC to extend knee knee extensions Details seated in lift chair Equipment Ankle Weight- 5.0# Reps/Duration 20 B Comments seated in lift SLS Details bracing LLE Body Position Standing Water Level Chest Level Equipment vest Reps/Duration 1 min marching at wall Water Level Chest Level Reps/Duration 2 min Comments opposite UE/LE tapping wall squats Body Position Standing Water Level Chest Level Reps/Duration 20x Lower Extremity Stretches adductors Comments seated in chair Gastroc Body Position Sitting Reps/Duration 2 x 45 sec B Comments manual assist hip flexors Details at wall Body Position Standing Water Level Waist Level Reps/Duration 2x45 Comments manually assisted HS Details at wall Body Position Sitting Water Level Waist Level Equipment wet vest Reps/Duration 2x45 Comments sitting in lift chair assisted Upper Extremity Exercises breastroke UE's Body Position Standing Water Level Chest Level Reps/Duration 3 min Comments during walking and deep water hor ab/ad Water Level Chest Level Comments during side walking, CGA Balance step ups Details step ups/down using boxes Body Position Standing Water Level Waist Level Equipment 8 boxes Comments mod verbal cues for coordination [place] Activities [place] Activities Bicycle,Cross Country Equipment wet vest, white noodle Duration 7 min Comments Guy and cues for vertical alignmernt. PT-OP-T Assessment and Plan Start: 09/17/19 18:00 Freq: Status: Active Protocol: Document 03/09/21 11:20 DCW (Rec: 03/09/21 12:02 DCW [id number]) Physical Therapy Assessment Impairments Impairments Activity Tolerance,Balance, Coordination,Functional Activities,Functional Mobility ,Gait,Pain,ROM,Sensation, Strength,Tone,Transfers Goals Six Impairment Decreased Static Balance Short Term Goal (STG) Pt to score <9 seconds on TUG STG Duration Met Cutter Helper Goal (LTG) MET - Pt to score 35/56 or better on the Adler Balance MET - Pt to score 45/56 or better on the Adler Balance Scale NEW GOAL: Pt to score 53/56 on Adler Balance Scale LTG Duration 05/05/21 Five Impairment Pt uses R rail and step-over gait pattern ascending stairs Cutter Helper Goal (LTG) Pt to ascend/descend stairs independently without use of rail LTG Duration 05/05/21 - Improving Four Impairment Pt demonstrates strength impairment throughout left LE Cutter Helper Goal (LTG) Pt to display MMT >3+/5 through L LE LTG Duration 05/05/21 - Met /c all but inversion Three Impairment Pt SBA for transfers and bed mobility d/t Left Neglect Detention Goal (LTG) Pt to demonstrate independent transfers and bed mobility with an ability to address left LE and UE 80% of the time LTG Duration Met Two Impairment Pt ambulates 280' CGA /s an AD Short Term Goal (STG) Pt to ambulate 400' SBA independently STG Duration Met Cutter Helper Goal (LTG) Pt to ambulate 800' during 6 MWT Independently without SBA LTG Duration 05/05/21 - Improving (1374' SBA ) One Impairment Pt does not have an appropriate home exercise program Short Term Goal (STG) Pt to be independent and compliant with an appropriate HEP STG Duration Met Assessment Summary Assessment Pt happy with his ability on the treadmill today, able to tolerate 10 minutes, did experience some SOB, mainly at the 7-8 minute point. Physical Therapy Plan Frequency and Duration Frequency of Treatment 2x/Week Duration of Treatment 3 months Plan of Care Start Date 02/02/21 Plan of Care End Date 05/05/21 Therapeutic Interventions Therapeutic Interventions Aquatic Therapy,Balance Training,Coordination Training ,Gait Training,Home Exercise Program,Manual Therapy, Neuromuscular Re-education, Patient/Caregiver Education, Self-Care/Home Management, Therapeutic Activities, Therapeutic Exercises Modalities Cold Pack/Ice Massage,Electric Stimulation,Hot Packs, Ultrasound Next Visit Focus/Plan Next Note Type Treatment Note Next Visit Plan SLS, visual scanning, increased activity tolerance
--- NOTE | 2021-03-14 12:04 | PT.OTN ---
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) Physical Therapy Treatment Note PT-OP-A Visit Information Start: 09/17/19 18:00 Freq: Status: Active Protocol: Document 03/14/21 11:17 DCW (Rec: 03/14/21 12:03 DCW [id number]) Out-Patient Physical Therapy Visit Information Visit Information Visit Type Treatment Note Visit Start Time 11:17 Visit Stop Time 12:10 Total Visit Minutes 53 Visit Number 107 Number of OIL PAINT SHADER Visits 0 Evaluation Information Evaluation Date 09/17/19 PT-OP-B Current Condition Start: 09/17/19 18:00 Freq: Status: Active Protocol: Document 09/17/19 12:00 DCW (Rec: 09/18/19 10:29 DCW [id number]) Current Condition History of Current Condition Onset Date 04/14/19 Current Complaints Hemiparesis secondary to CVA History of Current Condition Pt is a 69 year old male presenting to skilled outpatient physical therapy with left-side neglect, hemiparesis, loss of independence, and difficulty walking following an intraparenchymal hemorrhage on 04/14/19. Pt was transferred from [facility] to [facility], where a craniotomy was performed on 04/16/19. Pt completed 7 weeks of rehab/ recovery at [facility], and then underwent a second surgery on 06/26/19 to replace the skull fragment. Pt was then at an acute rehab facility 06/30-07/18/19, and since then has been receiving home health physical therapy. Pt presents today with limited left-sided function, left visual and physical neglect, difficulty with transfers, decreased activity tolerance, decreased gait, and many other secondary effects following his CVA. Pt has been working on ambulation with a vale walker with home health, and his states he has walked around 100' a few times, but always with a therapist, as she does not feel comfortable walking with him yet. Pt exclusively gets around at time of evaluation in a manual wheelchair. Pt's transfers have been going fairly well, with his caregivers performing CGA, however pt will occasionally need assistance with placement of his left UE and LE due to neglect. Pt's biggest complaint at the moment is leg pain, his reports they have tried PT, Massage, CBD il, Tylenol, Oxycodine, and Gabapentin, all with minimal benefit. Prior to CVA, pt was fully independent in all activities. Pt and have garegivers 8 hrs a day for assistance. Prior Treatments and Tests Craniotomy 04/16/19, Acute rehab, Skull fragment replacement 06/26/19, home health PT Prior Functional Status Baseline Function- ADL's Independent Baseline Function- Mobility Independent PT-OP-C Subjective Start: 09/17/19 18:00 Freq: Status: Active Protocol: Document 03/14/21 11:17 DCW (Rec: 03/14/21 12:04 DCW [id number]) OP-PT Subjective Patient Comments Patient Comments My breathing doesn't seem to be any better today. PT-OP-D Balance Start: 08/04/20 14:14 Freq: Status: Active Protocol: Document 02/02/21 11:15 DCW (Rec: 02/02/21 11:56 DCW [id number]) Balance Tests Adler Balance Test Adler Balance Test Score 49/56 Adler Impairment Rating 1 to 19% Impaired (Score 45-55 ) Adler Balance Assessment Evaluation Sitting to Standing Ability Independent w/out Hands Unsupported Stance Safely- 2 minutes Sitting Unsupported, Feet on Floor Safely- 2 minutes Standing to Sitting Ability Safely, Minimal Hand Use Transfer Ability Safely, Minimal Hand Use Unsupported Stance- Eyes Closed Safely, 10 seconds Unsupported Stance- Eyes Open Independent, 1 minute Reaching Forward Standing Confidently, 10 inches Pick- Up Object From Floor Independent/Safe Look Behind Shoulder - Standing Shifts Weight Well Turning 360 Degrees Turns , < 4 secs Unsupported Stance, Alternating Feet on 4 Steps w/Supervision Stair Unsupported Tandem Stance Holds Tandem- 30 seconds Unilateral Leg Stance Lifts Leg/Unable to Hold Total Score Adler Total Score (out of 56 points) 49 Adler Impairment Rating 1 to 19% Impaired (Score 45-55 ) PT-OP-E Functional Tests Start: 05/04/20 15:15 Freq: Status: Active Protocol: Document 02/02/21 11:15 DCW (Rec: 02/02/21 11:56 DCW [id number]) Functional Tests 6 Minute Walk Test Distance 1374 Device Used none Comments 3.82 ft/sec Timed Up and Go (TUG) Score 8.2 seconds Comments 3-trial average (8.58, 8.35, 7 .67) TUG Impairment Rating 0% Impaired (Score 10) PT-OP-G Mobility & Gait Start: 09/17/19 18:00 Freq: Status: Active Protocol: Document 02/02/21 11:15 DCW (Rec: 02/02/21 11:56 DCW [id number]) OP Gait Assessment Gait Gait Assistance Required: Standby Assistance Distance (Feet) 1,374 Assistive Devices Assistive Device None Gait Deviations General Gait Pattern Antalgic,Ataxic,Flexed Trunk Factors Limiting Gait Function Factors Limiting Gait Function Abnormal Tonal Influences, Decreased Activity Tolerance, Decreased Sensation,Decreased Strength Stair Climbing Evaluation Evaluation Level of Assist On Stairs Standby Assistance Devices Stair Climbing Assistive Devices Right Railing Technique/Endurance Stair Climbing Direction Ascend and Descend Stair Climbing Technique Step Over Step Number of Steps Climbed 4 PT-OP-H Neuro Start: 09/17/19 18:00 Freq: Status: Active Protocol: Document 02/02/21 11:15 DCW (Rec: 02/02/21 11:56 DCW [id number]) Deep Tendon Reflex & Clonus Assessment Deep Tendon Reflex Left Achilles Deep Tendon Reflex 4+ Brisk Left Patellar Deep Tendon Reflex 3+ Normal But Brisk Ankle Clonus Left Clonus Assessment Sustained Muscle Tone Tone Assessment Left Lower Extremity Flexor Tone Description Mild Hypotonicity PT-OP-M Strength Start: 09/17/19 18:00 Freq: Status: Active Protocol: Document 02/02/21 11:15 DCW (Rec: 02/02/21 11:56 DCW [id number]) Hip Strength Hip Manual Muscle Testing Left Flexion (L2) 4 Good Extension (S1) 5 Normal Abduction 4 Good Adduction 4+ Good+ External Rotation 4 Good Internal Rotation 4 Good Knee Strength Knee Manual Muscle Testing Left Flexion (S2) 4 Good Extension (L3) 5 Normal Ankle/Foot Strength Ankle and Foot Manual Muscle Testing Left Dorsiflexion (L4) 4 Good Plantarflexion (S1) 4 Good Inversion 4- Good- Eversion (S1) 3 Fair PT-OP-Q Treatments Start: 09/17/19 18:00 Freq: Status: Active Protocol: Document 03/14/21 11:17 DCW (Rec: 03/14/21 12:03 DCW [id number]) Cardio Equipment Treadmill Duration (Minutes) 11 Speed 1.6<->2.1 Incline 0 Other 0.32 miles Gym Equipment Shuttle Balance Red Details Wide SRIDEVI, Staggered Comments Min Ax1 Therapeutic Exercises Standing Exercises Hamstring Curl Standing Exercise Name HS Curl Side bilateral Resistance 10# SLS Standing Exercise Name SLS Equipment Used rail Comments CGA Abduction Standing Exercise Name Hip abduction Side bilateral Resistance 10# PT-OP-R Modalities Start: 09/17/19 18:00 Freq: Status: Active Protocol: Document 03/14/21 11:17 DCW (Rec: 03/14/21 12:04 DCW [id number]) Electric Stimulation Electric Stimulation Interferential Current (IFC) Body Location L ant ankle Duration (Minutes) 15 Patient Position Sitting Combined With Heat/Cold Cold Pack PT-OP-S Aquatic Treatment Start: 09/17/19 18:00 Freq: Status: Active Protocol: Document 01/30/20 12:30 LJ (Rec: 01/30/20 14:54 LJ [id number]) Aquatics Treatment Pool Entry/Exit Pool Entry/Exit Method Lift Assistance Minimal Assistance Water Walking Slow motion Water Level Chest Level Walking Equipment wet vest, UE float, #2.5 ankle wt Level of Assistance Standby Assistance,Contact Guard Assistance,Moderate Assistance Comments emphasis on LLE extension stance phase January Water Level Chest Level Walking Equipment wet vest, UE float, #2.5 ankle wt Level of Assistance Standby Assistance,Contact Guard Assistance,Moderate Assistance,Verbal Cues Forward with emphasis on reciprocal gait pattern Water Level Chest Level Level of Assistance Standby Assistance,Contact Guard Assistance,Minimal Assistance,Verbal Cues Comments wetvest, sm float on LUE, #3. 75 ankle wt on LLE start stop walking forward and backward Water Level Chest Level Walking Equipment vest Level of Assistance Contact Guard Assistance, Verbal Cues Comments wetvest, sm float on LUE, #3. 75 ankle wt on LLE Sideways Water Level Chest Level Walking Equipment wet vest, UE float, #2.5 ankle wt Level of Assistance Standby Assistance,Contact Guard Assistance,Minimal Assistance,Verbal Cues Lower Extremity Exercises SL aquats Details HH on wall Body Position Standing Water Level Waist Level Equipment wetvest Reps/Duration 2x10 LLE Comments VC to extend knee knee extensions Details seated in lift chair Equipment Ankle Weight- 5.0# Reps/Duration 20 B Comments seated in lift SLS Details bracing LLE Body Position Standing Water Level Chest Level Equipment vest Reps/Duration 1 min marching at wall Water Level Chest Level Reps/Duration 2 min Comments opposite UE/LE tapping wall squats Body Position Standing Water Level Chest Level Reps/Duration 20x Lower Extremity Stretches adductors Comments seated in chair Gastroc Body Position Sitting Reps/Duration 2 x 45 sec B Comments manual assist hip flexors Details at wall Body Position Standing Water Level Waist Level Reps/Duration 2x45 Comments manually assisted HS Details at wall Body Position Sitting Water Level Waist Level Equipment wet vest Reps/Duration 2x45 Comments sitting in lift chair assisted Upper Extremity Exercises breastroke UE's Body Position Standing Water Level Chest Level Reps/Duration 3 min Comments during walking and deep water hor ab/ad Water Level Chest Level Comments during side walking, CGA Balance step ups Details step ups/down using boxes Body Position Standing Water Level Waist Level Equipment 8 boxes Comments mod verbal cues for coordination Delavan Activities Delavan Activities Bicycle,Cross Country Equipment wet vest, white noodle Duration 7 min Comments Guy and cues for vertical alignmernt. PT-OP-T Assessment and Plan Start: 09/17/19 18:00 Freq: Status: Active Protocol: Document 03/14/21 11:17 DCW (Rec: 03/14/21 12:03 DCW [id number]) Physical Therapy Assessment Impairments Impairments Activity Tolerance,Balance, Coordination,Functional Activities,Functional Mobility ,Gait,Pain,ROM,Sensation, Strength,Tone,Transfers Goals Six Impairment Decreased Static Balance Short Term Goal (STG) Pt to score <9 seconds on TUG STG Duration Met Skirt Clipper Goal (LTG) MET - Pt to score 35/56 or better on the Adler Balance MET - Pt to score 45/56 or better on the Adler Balance Scale NEW GOAL: Pt to score 53/56 on Adler Balance Scale LTG Duration 05/05/21 Five Impairment Pt uses R rail and step-over gait pattern ascending stairs Skirt Clipper Goal (LTG) Pt to ascend/descend stairs independently without use of rail LTG Duration 05/05/21 - Improving Four Impairment Pt demonstrates strength impairment throughout left LE Mcfp Goal (LTG) Pt to display MMT >3+/5 through L LE LTG Duration 05/05/21 - Met /c all but inversion Three Impairment Pt SBA for transfers and bed mobility d/t Left Neglect Skirt Clipper Goal (LTG) Pt to demonstrate independent transfers and bed mobility with an ability to address left LE and UE 80% of the time LTG Duration Met Two Impairment Pt ambulates 280' CGA /s an AD Short Term Goal (STG) Pt to ambulate 400' SBA independently STG Duration Met Mcfp Goal (LTG) Pt to ambulate 800' during 6 MWT Independently without SBA LTG Duration 05/05/21 - Improving (1374' SBA ) One Impairment Pt does not have an appropriate home exercise program Short Term Goal (STG) Pt to be independent and compliant with an appropriate HEP STG Duration Met Assessment Summary Assessment Pt progressing on treadmill, able to increase speed by 50%, much less SOB after using for 10 minutes. Physical Therapy Plan Frequency and Duration Frequency of Treatment 2x/Week Duration of Treatment 3 months Plan of Care Start Date 02/02/21 Plan of Care End Date 05/05/21 Therapeutic Interventions Therapeutic Interventions Aquatic Therapy,Balance Training,Coordination Training ,Gait Training,Home Exercise Program,Manual Therapy, Neuromuscular Re-education, Patient/Caregiver Education, Self-Care/Home Management, Therapeutic Activities, Therapeutic Exercises Modalities Cold Pack/Ice Massage,Electric Stimulation,Hot Packs, Ultrasound Next Visit Focus/Plan Next Note Type Treatment Note Next Visit Plan SLS, visual scanning, increased activity tolerance
--- NOTE | 2021-03-16 11:56 | PT.OTN ---
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) Physical Therapy Treatment Note PT-OP-A Visit Information Start: 09/17/19 18:00 Freq: Status: Active Protocol: Document 03/16/21 11:15 DCW (Rec: 03/16/21 11:36 DCW [id number]) Out-Patient Physical Therapy Visit Information Visit Information Visit Type Treatment Note Visit Start Time 11:15 Visit Stop Time 12:10 Total Visit Minutes 55 Visit Number 108 Number of SMART ENERGY SPECIALIST Visits 0 Evaluation Information Evaluation Date 09/17/19 PT-OP-B Current Condition Start: 09/17/19 18:00 Freq: Status: Active Protocol: Document 09/17/19 12:00 DCW (Rec: 09/18/19 10:29 DCW [id number]) Current Condition History of Current Condition Onset Date 04/14/19 Current Complaints Hemiparesis secondary to CVA History of Current Condition Pt is a 69 year old male presenting to skilled outpatient physical therapy with left-side neglect, hemiparesis, loss of independence, and difficulty walking following an intraparenchymal hemorrhage on 04/14/19. Pt was transferred from [facility] to [facility], where a craniotomy was performed on 04/16/19. Pt completed 7 weeks of rehab/ recovery at [facility], and then underwent a second surgery on 06/26/19 to replace the skull fragment. Pt was then at an acute rehab facility 06/30-07/18/19, and since then has been receiving home health physical therapy. Pt presents today with limited left-sided function, left visual and physical neglect, difficulty with transfers, decreased activity tolerance, decreased gait, and many other secondary effects following his CVA. Pt has been working on ambulation with a vale walker with home health, and his states he has walked around 100' a few times, but always with a therapist, as she does not feel comfortable walking with him yet. Pt exclusively gets around at time of evaluation in a manual wheelchair. Pt's transfers have been going fairly well, with his caregivers performing CGA, however pt will occasionally need assistance with placement of his left UE and LE due to neglect. Pt's biggest complaint at the moment is leg pain, his reports they have tried PT, Massage, CBD il, Tylenol, Oxycodine, and Gabapentin, all with minimal benefit. Prior to CVA, pt was fully independent in all activities. Pt and have garegivers 8 hrs a day for assistance. Prior Treatments and Tests Craniotomy 04/16/19, Acute rehab, Skull fragment replacement 06/26/19, home health PT Prior Functional Status Baseline Function- ADL's Independent Baseline Function- Mobility Independent PT-OP-C Subjective Start: 09/17/19 18:00 Freq: Status: Active Protocol: Document 03/16/21 11:15 DCW (Rec: 03/16/21 11:36 DCW [id number]) OP-PT Subjective Patient Comments Patient Comments I could tell when I woke up my breathing would be difficulty today if I started walking. PT-OP-D Balance Start: 08/04/20 14:14 Freq: Status: Active Protocol: Document 02/02/21 11:15 DCW (Rec: 02/02/21 11:56 DCW [id number]) Balance Tests Adler Balance Test Adler Balance Test Score 49/56 Adler Impairment Rating 1 to 19% Impaired (Score 45-55 ) Adler Balance Assessment Evaluation Sitting to Standing Ability Independent w/out Hands Unsupported Stance Safely- 2 minutes Sitting Unsupported, Feet on Floor Safely- 2 minutes Standing to Sitting Ability Safely, Minimal Hand Use Transfer Ability Safely, Minimal Hand Use Unsupported Stance- Eyes Closed Safely, 10 seconds Unsupported Stance- Eyes Open Independent, 1 minute Reaching Forward Standing Confidently, 10 inches Pick- Up Object From Floor Independent/Safe Look Behind Shoulder - Standing Shifts Weight Well Turning 360 Degrees Turns , < 4 secs Unsupported Stance, Alternating Feet on 4 Steps w/Supervision Stair Unsupported Tandem Stance Holds Tandem- 30 seconds Unilateral Leg Stance Lifts Leg/Unable to Hold Total Score Adler Total Score (out of 56 points) 49 Adler Impairment Rating 1 to 19% Impaired (Score 45-55 ) PT-OP-E Functional Tests Start: 05/04/20 15:15 Freq: Status: Active Protocol: Document 02/02/21 11:15 DCW (Rec: 02/02/21 11:56 DCW [id number]) Functional Tests 6 Minute Walk Test Distance 1374 Device Used none Comments 3.82 ft/sec Timed Up and Go (TUG) Score 8.2 seconds Comments 3-trial average (8.58, 8.35, 7 .67) TUG Impairment Rating 0% Impaired (Score 10) PT-OP-G Mobility & Gait Start: 09/17/19 18:00 Freq: Status: Active Protocol: Document 02/02/21 11:15 DCW (Rec: 02/02/21 11:56 DCW [id number]) OP Gait Assessment Gait Gait Assistance Required: Standby Assistance Distance (Feet) 1,374 Assistive Devices Assistive Device None Gait Deviations General Gait Pattern Antalgic,Ataxic,Flexed Trunk Factors Limiting Gait Function Factors Limiting Gait Function Abnormal Tonal Influences, Decreased Activity Tolerance, Decreased Sensation,Decreased Strength Stair Climbing Evaluation Evaluation Level of Assist On Stairs Standby Assistance Devices Stair Climbing Assistive Devices Right Railing Technique/Endurance Stair Climbing Direction Ascend and Descend Stair Climbing Technique Step Over Step Number of Steps Climbed 4 PT-OP-H Neuro Start: 09/17/19 18:00 Freq: Status: Active Protocol: Document 02/02/21 11:15 DCW (Rec: 02/02/21 11:56 DCW [id number]) Deep Tendon Reflex & Clonus Assessment Deep Tendon Reflex Left Achilles Deep Tendon Reflex 4+ Brisk Left Patellar Deep Tendon Reflex 3+ Normal But Brisk Ankle Clonus Left Clonus Assessment Sustained Muscle Tone Tone Assessment Left Lower Extremity Flexor Tone Description Mild Hypotonicity PT-OP-M Strength Start: 09/17/19 18:00 Freq: Status: Active Protocol: Document 02/02/21 11:15 DCW (Rec: 02/02/21 11:56 DCW [id number]) Hip Strength Hip Manual Muscle Testing Left Flexion (L2) 4 Good Extension (S1) 5 Normal Abduction 4 Good Adduction 4+ Good+ External Rotation 4 Good Internal Rotation 4 Good Knee Strength Knee Manual Muscle Testing Left Flexion (S2) 4 Good Extension (L3) 5 Normal Ankle/Foot Strength Ankle and Foot Manual Muscle Testing Left Dorsiflexion (L4) 4 Good Plantarflexion (S1) 4 Good Inversion 4- Good- Eversion (S1) 3 Fair PT-OP-Q Treatments Start: 09/17/19 18:00 Freq: Status: Active Protocol: Document 03/16/21 11:15 DCW (Rec: 03/16/21 11:56 DCW [id number]) Gym Equipment Shuttle Recovery Unilateral Heel Raises Details Left Resistance 25# Reps/Time calf stretch at end Unilateral Squats Details Left Resistance 62# Shuttle Recovery Platform Stable Bilateral Squats Resistance 100# Shuttle Recovery Platform Stable Reps/Time x50 Shuttle Balance Red Details Wide SRIDEVI, Staggered Comments Min Ax1 Gait Training Gait Activity No AD Description No AD Device Used None Level of Assistance SBA Distance/Duration 950' x1 Comments VCs to promote heel-toe gait, extend left knee during stance phase Neuro Re-Education Treatment Balance Activities Cone transfers Details Bending down ball pick-up from cone, kick cone over, ball toss to target PT-OP-R Modalities Start: 09/17/19 18:00 Freq: Status: Active Protocol: Document 03/16/21 11:15 DCW (Rec: 03/16/21 11:36 DCW [id number]) Electric Stimulation Electric Stimulation Interferential Current (IFC) Body Location L ant ankle Duration (Minutes) 15 Patient Position Sitting Combined With Heat/Cold Cold Pack PT-OP-S Aquatic Treatment Start: 09/17/19 18:00 Freq: Status: Active Protocol: Document 01/30/20 12:30 LJ (Rec: 01/30/20 14:54 LJ [id number]) Aquatics Treatment Pool Entry/Exit Pool Entry/Exit Method Lift Assistance Minimal Assistance Water Walking Slow motion Water Level Chest Level Walking Equipment wet vest, UE float, #2.5 ankle wt Level of Assistance Standby Assistance,Contact Guard Assistance,Moderate Assistance Comments emphasis on LLE extension stance phase January Water Level Chest Level Walking Equipment wet vest, UE float, #2.5 ankle wt Level of Assistance Standby Assistance,Contact Guard Assistance,Moderate Assistance,Verbal Cues Forward with emphasis on reciprocal gait pattern Water Level Chest Level Level of Assistance Standby Assistance,Contact Guard Assistance,Minimal Assistance,Verbal Cues Comments wetvest, sm float on LUE, #3. 75 ankle wt on LLE start stop walking forward and backward Water Level Chest Level Walking Equipment vest Level of Assistance Contact Guard Assistance, Verbal Cues Comments wetvest, sm float on LUE, #3. 75 ankle wt on LLE Sideways Water Level Chest Level Walking Equipment wet vest, UE float, #2.5 ankle wt Level of Assistance Standby Assistance,Contact Guard Assistance,Minimal Assistance,Verbal Cues Lower Extremity Exercises SL aquats Details HH on wall Body Position Standing Water Level Waist Level Equipment wetvest Reps/Duration 2x10 LLE Comments VC to extend knee knee extensions Details seated in lift chair Equipment Ankle Weight- 5.0# Reps/Duration 20 B Comments seated in lift SLS Details bracing LLE Body Position Standing Water Level Chest Level Equipment vest Reps/Duration 1 min marching at wall Water Level Chest Level Reps/Duration 2 min Comments opposite UE/LE tapping wall squats Body Position Standing Water Level Chest Level Reps/Duration 20x Lower Extremity Stretches adductors Comments seated in chair Gastroc Body Position Sitting Reps/Duration 2 x 45 sec B Comments manual assist hip flexors Details at wall Body Position Standing Water Level Waist Level Reps/Duration 2x45 Comments manually assisted HS Details at wall Body Position Sitting Water Level Waist Level Equipment wet vest Reps/Duration 2x45 Comments sitting in lift chair assisted Upper Extremity Exercises breastroke UE's Body Position Standing Water Level Chest Level Reps/Duration 3 min Comments during walking and deep water hor ab/ad Water Level Chest Level Comments during side walking, CGA Balance step ups Details step ups/down using boxes Body Position Standing Water Level Waist Level Equipment 8 boxes Comments mod verbal cues for coordination Perry Activities Perry Activities Bicycle,Cross Country Equipment wet vest, white noodle Duration 7 min Comments Guy and cues for vertical alignmernt. PT-OP-T Assessment and Plan Start: 09/17/19 18:00 Freq: Status: Active Protocol: Document 03/16/21 11:15 DCW (Rec: 03/16/21 11:36 DCW [id number]) Physical Therapy Assessment Impairments Impairments Activity Tolerance,Balance, Coordination,Functional Activities,Functional Mobility ,Gait,Pain,ROM,Sensation, Strength,Tone,Transfers Goals Six Impairment Decreased Static Balance Short Term Goal (STG) Pt to score <9 seconds on TUG STG Duration Met Fci Goal (LTG) MET - Pt to score 35/56 or better on the Adler Balance MET - Pt to score 45/56 or better on the Adler Balance Scale NEW GOAL: Pt to score 53/56 on Adler Balance Scale LTG Duration 05/05/21 Five Impairment Pt uses R rail and step-over gait pattern ascending stairs Pharmacy Intake Coordinator Goal (LTG) Pt to ascend/descend stairs independently without use of rail LTG Duration 05/05/21 - Improving Four Impairment Pt demonstrates strength impairment throughout left LE Pharmacy Intake Coordinator Goal (LTG) Pt to display MMT >3+/5 through L LE LTG Duration 05/05/21 - Met /c all but inversion Three Impairment Pt SBA for transfers and bed mobility d/t Left Neglect Fci Goal (LTG) Pt to demonstrate independent transfers and bed mobility with an ability to address left LE and UE 80% of the time LTG Duration Met Two Impairment Pt ambulates 280' CGA /s an AD Short Term Goal (STG) Pt to ambulate 400' SBA independently STG Duration Met Fci Goal (LTG) Pt to ambulate 800' during 6 MWT Independently without SBA LTG Duration 05/05/21 - Improving (1374' SBA ) One Impairment Pt does not have an appropriate home exercise program Short Term Goal (STG) Pt to be independent and compliant with an appropriate HEP STG Duration Met Assessment Summary Assessment Pt demonstrated more difficulty than usual with his cone/ball toss, and was breathing very heavily after his ambulation. Physical Therapy Plan Frequency and Duration Frequency of Treatment 2x/Week Duration of Treatment 3 months Plan of Care Start Date 02/02/21 Plan of Care End Date 05/05/21 Therapeutic Interventions Therapeutic Interventions Aquatic Therapy,Balance Training,Coordination Training ,Gait Training,Home Exercise Program,Manual Therapy, Neuromuscular Re-education, Patient/Caregiver Education, Self-Care/Home Management, Therapeutic Activities, Therapeutic Exercises Modalities Cold Pack/Ice Massage,Electric Stimulation,Hot Packs, Ultrasound Next Visit Focus/Plan Next Note Type Treatment Note Next Visit Plan SLS, visual scanning, increased activity tolerance
--- NOTE | 2021-03-21 12:02 | PT.OTN ---
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) Physical Therapy Treatment Note PT-OP-A Visit Information Start: 09/17/19 18:00 Freq: Status: Active Protocol: Document 03/21/21 11:18 DCW (Rec: 03/21/21 12:02 DCW [id number]) Out-Patient Physical Therapy Visit Information Visit Information Visit Type Treatment Note Visit Start Time 11:18 Visit Stop Time 12:11 Total Visit Minutes 53 Visit Number 109 Number of KICK PRESS SETTER Visits 0 Evaluation Information Evaluation Date 09/17/19 PT-OP-B Current Condition Start: 09/17/19 18:00 Freq: Status: Active Protocol: Document 09/17/19 12:00 DCW (Rec: 09/18/19 10:29 DCW [id number]) Current Condition History of Current Condition Onset Date 04/14/19 Current Complaints Hemiparesis secondary to CVA History of Current Condition Pt is a 69 year old male presenting to skilled outpatient physical therapy with left-side neglect, hemiparesis, loss of independence, and difficulty walking following an intraparenchymal hemorrhage on 04/14/19. Pt was transferred from [facility] to [facility], where a craniotomy was performed on 04/16/19. Pt completed 7 weeks of rehab/ recovery at [facility], and then underwent a second surgery on 06/26/19 to replace the skull fragment. Pt was then at an acute rehab facility 06/30-07/18/19, and since then has been receiving home health physical therapy. Pt presents today with limited left-sided function, left visual and physical neglect, difficulty with transfers, decreased activity tolerance, decreased gait, and many other secondary effects following his CVA. Pt has been working on ambulation with a vale walker with home health, and his states he has walked around 100' a few times, but always with a therapist, as she does not feel comfortable walking with him yet. Pt exclusively gets around at time of evaluation in a manual wheelchair. Pt's transfers have been going fairly well, with his caregivers performing CGA, however pt will occasionally need assistance with placement of his left UE and LE due to neglect. Pt's biggest complaint at the moment is leg pain, his reports they have tried PT, Massage, CBD il, Tylenol, Oxycodine, and Gabapentin, all with minimal benefit. Prior to CVA, pt was fully independent in all activities. Pt and have garegivers 8 hrs a day for assistance. Prior Treatments and Tests Craniotomy 04/16/19, Acute rehab, Skull fragment replacement 06/26/19, home health PT Prior Functional Status Baseline Function- ADL's Independent Baseline Function- Mobility Independent PT-OP-C Subjective Start: 09/17/19 18:00 Freq: Status: Active Protocol: Document 03/21/21 11:18 DCW (Rec: 03/21/21 12:02 DCW [id number]) OP-PT Subjective Patient Comments Patient Comments Pt reports he is feeling good today. PT-OP-D Balance Start: 08/04/20 14:14 Freq: Status: Active Protocol: Document 02/02/21 11:15 DCW (Rec: 02/02/21 11:56 DCW [id number]) Balance Tests Adler Balance Test Adler Balance Test Score 49/56 Adler Impairment Rating 1 to 19% Impaired (Score 45-55 ) Adler Balance Assessment Evaluation Sitting to Standing Ability Independent w/out Hands Unsupported Stance Safely- 2 minutes Sitting Unsupported, Feet on Floor Safely- 2 minutes Standing to Sitting Ability Safely, Minimal Hand Use Transfer Ability Safely, Minimal Hand Use Unsupported Stance- Eyes Closed Safely, 10 seconds Unsupported Stance- Eyes Open Independent, 1 minute Reaching Forward Standing Confidently, 10 inches Pick- Up Object From Floor Independent/Safe Look Behind Shoulder - Standing Shifts Weight Well Turning 360 Degrees Turns , < 4 secs Unsupported Stance, Alternating Feet on 4 Steps w/Supervision Stair Unsupported Tandem Stance Holds Tandem- 30 seconds Unilateral Leg Stance Lifts Leg/Unable to Hold Total Score Adler Total Score (out of 56 points) 49 Adler Impairment Rating 1 to 19% Impaired (Score 45-55 ) PT-OP-E Functional Tests Start: 05/04/20 15:15 Freq: Status: Active Protocol: Document 02/02/21 11:15 DCW (Rec: 02/02/21 11:56 DCW [id number]) Functional Tests 6 Minute Walk Test Distance 1374 Device Used none Comments 3.82 ft/sec Timed Up and Go (TUG) Score 8.2 seconds Comments 3-trial average (8.58, 8.35, 7 .67) TUG Impairment Rating 0% Impaired (Score 10) PT-OP-G Mobility & Gait Start: 09/17/19 18:00 Freq: Status: Active Protocol: Document 02/02/21 11:15 DCW (Rec: 02/02/21 11:56 DCW [id number]) OP Gait Assessment Gait Gait Assistance Required: Standby Assistance Distance (Feet) 1,374 Assistive Devices Assistive Device None Gait Deviations General Gait Pattern Antalgic,Ataxic,Flexed Trunk Factors Limiting Gait Function Factors Limiting Gait Function Abnormal Tonal Influences, Decreased Activity Tolerance, Decreased Sensation,Decreased Strength Stair Climbing Evaluation Evaluation Level of Assist On Stairs Standby Assistance Devices Stair Climbing Assistive Devices Right Railing Technique/Endurance Stair Climbing Direction Ascend and Descend Stair Climbing Technique Step Over Step Number of Steps Climbed 4 PT-OP-H Neuro Start: 09/17/19 18:00 Freq: Status: Active Protocol: Document 02/02/21 11:15 DCW (Rec: 02/02/21 11:56 DCW [id number]) Deep Tendon Reflex & Clonus Assessment Deep Tendon Reflex Left Achilles Deep Tendon Reflex 4+ Brisk Left Patellar Deep Tendon Reflex 3+ Normal But Brisk Ankle Clonus Left Clonus Assessment Sustained Muscle Tone Tone Assessment Left Lower Extremity Flexor Tone Description Mild Hypotonicity PT-OP-M Strength Start: 09/17/19 18:00 Freq: Status: Active Protocol: Document 02/02/21 11:15 DCW (Rec: 02/02/21 11:56 DCW [id number]) Hip Strength Hip Manual Muscle Testing Left Flexion (L2) 4 Good Extension (S1) 5 Normal Abduction 4 Good Adduction 4+ Good+ External Rotation 4 Good Internal Rotation 4 Good Knee Strength Knee Manual Muscle Testing Left Flexion (S2) 4 Good Extension (L3) 5 Normal Ankle/Foot Strength Ankle and Foot Manual Muscle Testing Left Dorsiflexion (L4) 4 Good Plantarflexion (S1) 4 Good Inversion 4- Good- Eversion (S1) 3 Fair PT-OP-Q Treatments Start: 09/17/19 18:00 Freq: Status: Active Protocol: Document 03/21/21 11:18 DCW (Rec: 03/21/21 12:02 DCW [id number]) Cardio Equipment Treadmill Duration (Minutes) 10 Speed 2.0 Incline 0 Other 0.30 miles Gym Equipment Shuttle Recovery Unilateral Heel Raises Details Left Resistance 25# Reps/Time calf stretch at end Unilateral Squats Details Left Resistance 62# Shuttle Recovery Platform Stable Bilateral Squats Resistance 100# Shuttle Recovery Platform Stable Reps/Time x50 Shuttle Balance Red Details Wide [id number], Staggered Comments Min Ax1 PT-OP-R Modalities Start: 09/17/19 18:00 Freq: Status: Active Protocol: Document 03/21/21 11:18 DCW (Rec: 03/21/21 12:02 DCW [id number]) Electric Stimulation Electric Stimulation Interferential Current (IFC) Body Location L ant ankle Duration (Minutes) 15 Patient Position Sitting Combined With Heat/Cold Cold Pack PT-OP-S Aquatic Treatment Start: 09/17/19 18:00 Freq: Status: Active Protocol: Document 01/30/20 12:30 LJ (Rec: 01/30/20 14:54 LJ [id number]) Aquatics Treatment Pool Entry/Exit Pool Entry/Exit Method Lift Assistance Minimal Assistance Water Walking Slow motion Water Level Chest Level Walking Equipment wet vest, UE float, #2.5 ankle wt Level of Assistance Standby Assistance,Contact Guard Assistance,Moderate Assistance Comments emphasis on LLE extension stance phase January Water Level Chest Level Walking Equipment wet vest, UE float, #2.5 ankle wt Level of Assistance Standby Assistance,Contact Guard Assistance,Moderate Assistance,Verbal Cues Forward with emphasis on reciprocal gait pattern Water Level Chest Level Level of Assistance Standby Assistance,Contact Guard Assistance,Minimal Assistance,Verbal Cues Comments wetvest, sm float on LUE, #3. 75 ankle wt on LLE start stop walking forward and backward Water Level Chest Level Walking Equipment vest Level of Assistance Contact Guard Assistance, Verbal Cues Comments wetvest, sm float on LUE, #3. 75 ankle wt on LLE Sideways Water Level Chest Level Walking Equipment wet vest, UE float, #2.5 ankle wt Level of Assistance Standby Assistance,Contact Guard Assistance,Minimal Assistance,Verbal Cues Lower Extremity Exercises SL aquats Details HH on wall Body Position Standing Water Level Waist Level Equipment wetvest Reps/Duration 2x10 LLE Comments VC to extend knee knee extensions Details seated in lift chair Equipment Ankle Weight- 5.0# Reps/Duration 20 B Comments seated in lift SLS Details bracing LLE Body Position Standing Water Level Chest Level Equipment vest Reps/Duration 1 min marching at wall Water Level Chest Level Reps/Duration 2 min Comments opposite UE/LE tapping wall squats Body Position Standing Water Level Chest Level Reps/Duration 20x Lower Extremity Stretches adductors Comments seated in chair Gastroc Body Position Sitting Reps/Duration 2 x 45 sec B Comments manual assist hip flexors Details at wall Body Position Standing Water Level Waist Level Reps/Duration 2x45 Comments manually assisted HS Details at wall Body Position Sitting Water Level Waist Level Equipment wet vest Reps/Duration 2x45 Comments sitting in lift chair assisted Upper Extremity Exercises breastroke UE's Body Position Standing Water Level Chest Level Reps/Duration 3 min Comments during walking and deep water hor ab/ad Water Level Chest Level Comments during side walking, CGA Balance step ups Details step ups/down using boxes Body Position Standing Water Level Waist Level Equipment 8 boxes Comments mod verbal cues for coordination [place] Activities [place] Activities Bicycle,Cross Country Equipment wet vest, white noodle Duration 7 min Comments Guy and cues for vertical alignmernt. PT-OP-T Assessment and Plan Start: 09/17/19 18:00 Freq: Status: Active Protocol: Document 03/21/21 11:18 DCW (Rec: 03/21/21 12:02 DCW [id number]) Physical Therapy Assessment Impairments Impairments Activity Tolerance,Balance, Coordination,Functional Activities,Functional Mobility ,Gait,Pain,ROM,Sensation, Strength,Tone,Transfers Goals Six Impairment Decreased Static Balance Short Term Goal (STG) Pt to score <9 seconds on TUG STG Duration Met Senior Living Goal (LTG) MET - Pt to score 35/56 or better on the Adler Balance MET - Pt to score 45/56 or better on the Adler Balance Scale NEW GOAL: Pt to score 53/56 on Adler Balance Scale LTG Duration 05/05/21 Five Impairment Pt uses R rail and step-over gait pattern ascending stairs Mincing Machine Operator Goal (LTG) Pt to ascend/descend stairs independently without use of rail LTG Duration 05/05/21 - Improving Four Impairment Pt demonstrates strength impairment throughout left LE Mincing Machine Operator Goal (LTG) Pt to display MMT >3+/5 through L LE LTG Duration 05/05/21 - Met /c all but inversion Three Impairment Pt SBA for transfers and bed mobility d/t Left Neglect Senior Living Goal (LTG) Pt to demonstrate independent transfers and bed mobility with an ability to address left LE and UE 80% of the time LTG Duration Met Two Impairment Pt ambulates 280' CGA /s an AD Short Term Goal (STG) Pt to ambulate 400' SBA independently STG Duration Met Mincing Machine Operator Goal (LTG) Pt to ambulate 800' during 6 MWT Independently without SBA LTG Duration 05/05/21 - Improving (1374' SBA ) One Impairment Pt does not have an appropriate home exercise program Short Term Goal (STG) Pt to be independent and compliant with an appropriate HEP STG Duration Met Assessment Summary Assessment Pt has significantly less breathing difficulty when using treadmill than when walking without an assistive device. Feels pretty good overall, would like to get out walking more frequently. Physical Therapy Plan Frequency and Duration Frequency of Treatment 2x/Week Duration of Treatment 3 months Plan of Care Start Date 02/02/21 Plan of Care End Date 05/05/21 Therapeutic Interventions Therapeutic Interventions Aquatic Therapy,Balance Training,Coordination Training ,Gait Training,Home Exercise Program,Manual Therapy, Neuromuscular Re-education, Patient/Caregiver Education, Self-Care/Home Management, Therapeutic Activities, Therapeutic Exercises Modalities Cold Pack/Ice Massage,Electric Stimulation,Hot Packs, Ultrasound Next Visit Focus/Plan Next Note Type Treatment Note Next Visit Plan SLS, visual scanning, increased activity tolerance
--- NOTE | 2021-03-23 12:07 | PT.OTN ---
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) Physical Therapy Treatment Note PT-OP-A Visit Information Start: 09/17/19 18:00 Freq: Status: Active Protocol: Document 03/23/21 11:15 DCW (Rec: 03/23/21 12:07 DCW [id number]) Out-Patient Physical Therapy Visit Information Visit Information Visit Type Treatment Note Visit Start Time 11:15 Visit Stop Time 12:10 Total Visit Minutes 55 Visit Number 110 Number of MEDICAL REFERRAL COORDINATOR Visits 0 Evaluation Information Evaluation Date 09/17/19 PT-OP-B Current Condition Start: 09/17/19 18:00 Freq: Status: Active Protocol: Document 09/17/19 12:00 DCW (Rec: 09/18/19 10:29 DCW [id number]) Current Condition History of Current Condition Onset Date 04/14/19 Current Complaints Hemiparesis secondary to CVA History of Current Condition Pt is a 69 year old male presenting to skilled outpatient physical therapy with left-side neglect, hemiparesis, loss of independence, and difficulty walking following an intraparenchymal hemorrhage on 04/14/19. Pt was transferred from [facility] to [facility], where a craniotomy was performed on 04/16/19. Pt completed 7 weeks of rehab/ recovery at [facility], and then underwent a second surgery on 06/26/19 to replace the skull fragment. Pt was then at an acute rehab facility 06/30-07/18/19, and since then has been receiving home health physical therapy. Pt presents today with limited left-sided function, left visual and physical neglect, difficulty with transfers, decreased activity tolerance, decreased gait, and many other secondary effects following his CVA. Pt has been working on ambulation with a vale walker with home health, and his states he has walked around 100' a few times, but always with a therapist, as she does not feel comfortable walking with him yet. Pt exclusively gets around at time of evaluation in a manual wheelchair. Pt's transfers have been going fairly well, with his caregivers performing CGA, however pt will occasionally need assistance with placement of his left UE and LE due to neglect. Pt's biggest complaint at the moment is leg pain, his reports they have tried PT, Massage, CBD il, Tylenol, Oxycodine, and Gabapentin, all with minimal benefit. Prior to CVA, pt was fully independent in all activities. Pt and have garegivers 8 hrs a day for assistance. Prior Treatments and Tests Craniotomy 04/16/19, Acute rehab, Skull fragment replacement 06/26/19, home health PT Prior Functional Status Baseline Function- ADL's Independent Baseline Function- Mobility Independent PT-OP-C Subjective Start: 09/17/19 18:00 Freq: Status: Active Protocol: Document 03/23/21 11:15 DCW (Rec: 03/23/21 12:07 DCW [id number]) OP-PT Subjective Patient Comments Patient Comments Pt reports he is having a nuclear stress test next Sunday. PT-OP-D Balance Start: 08/04/20 14:14 Freq: Status: Active Protocol: Document 02/02/21 11:15 DCW (Rec: 02/02/21 11:56 DCW [id number]) Balance Tests Adler Balance Test Adler Balance Test Score 49/56 Adler Impairment Rating 1 to 19% Impaired (Score 45-55 ) Adler Balance Assessment Evaluation Sitting to Standing Ability Independent w/out Hands Unsupported Stance Safely- 2 minutes Sitting Unsupported, Feet on Floor Safely- 2 minutes Standing to Sitting Ability Safely, Minimal Hand Use Transfer Ability Safely, Minimal Hand Use Unsupported Stance- Eyes Closed Safely, 10 seconds Unsupported Stance- Eyes Open Independent, 1 minute Reaching Forward Standing Confidently, 10 inches Pick- Up Object From Floor Independent/Safe Look Behind Shoulder - Standing Shifts Weight Well Turning 360 Degrees Turns , < 4 secs Unsupported Stance, Alternating Feet on 4 Steps w/Supervision Stair Unsupported Tandem Stance Holds Tandem- 30 seconds Unilateral Leg Stance Lifts Leg/Unable to Hold Total Score Adler Total Score (out of 56 points) 49 Adler Impairment Rating 1 to 19% Impaired (Score 45-55 ) PT-OP-E Functional Tests Start: 05/04/20 15:15 Freq: Status: Active Protocol: Document 02/02/21 11:15 DCW (Rec: 02/02/21 11:56 DCW [id number]) Functional Tests 6 Minute Walk Test Distance 1374 Device Used none Comments 3.82 ft/sec Timed Up and Go (TUG) Score 8.2 seconds Comments 3-trial average (8.58, 8.35, 7 .67) TUG Impairment Rating 0% Impaired (Score 10) PT-OP-G Mobility & Gait Start: 09/17/19 18:00 Freq: Status: Active Protocol: Document 02/02/21 11:15 DCW (Rec: 02/02/21 11:56 DCW [id number]) OP Gait Assessment Gait Gait Assistance Required: Standby Assistance Distance (Feet) 1,374 Assistive Devices Assistive Device None Gait Deviations General Gait Pattern Antalgic,Ataxic,Flexed Trunk Factors Limiting Gait Function Factors Limiting Gait Function Abnormal Tonal Influences, Decreased Activity Tolerance, Decreased Sensation,Decreased Strength Stair Climbing Evaluation Evaluation Level of Assist On Stairs Standby Assistance Devices Stair Climbing Assistive Devices Right Railing Technique/Endurance Stair Climbing Direction Ascend and Descend Stair Climbing Technique Step Over Step Number of Steps Climbed 4 PT-OP-H Neuro Start: 09/17/19 18:00 Freq: Status: Active Protocol: Document 02/02/21 11:15 DCW (Rec: 02/02/21 11:56 DCW [id number]) Deep Tendon Reflex & Clonus Assessment Deep Tendon Reflex Left Achilles Deep Tendon Reflex 4+ Brisk Left Patellar Deep Tendon Reflex 3+ Normal But Brisk Ankle Clonus Left Clonus Assessment Sustained Muscle Tone Tone Assessment Left Lower Extremity Flexor Tone Description Mild Hypotonicity PT-OP-M Strength Start: 09/17/19 18:00 Freq: Status: Active Protocol: Document 02/02/21 11:15 DCW (Rec: 02/02/21 11:56 DCW [id number]) Hip Strength Hip Manual Muscle Testing Left Flexion (L2) 4 Good Extension (S1) 5 Normal Abduction 4 Good Adduction 4+ Good+ External Rotation 4 Good Internal Rotation 4 Good Knee Strength Knee Manual Muscle Testing Left Flexion (S2) 4 Good Extension (L3) 5 Normal Ankle/Foot Strength Ankle and Foot Manual Muscle Testing Left Dorsiflexion (L4) 4 Good Plantarflexion (S1) 4 Good Inversion 4- Good- Eversion (S1) 3 Fair PT-OP-Q Treatments Start: 09/17/19 18:00 Freq: Status: Active Protocol: Document 03/23/21 11:15 DCW (Rec: 03/23/21 12:07 DCW [id number]) Gym Equipment Shuttle Recovery Unilateral Heel Raises Details Left Resistance 25# Reps/Time calf stretch at end Unilateral Squats Details Left Resistance 62# Shuttle Recovery Platform Stable Bilateral Squats Resistance 100# Shuttle Recovery Platform Stable Reps/Time x50 Therapeutic Exercises Sitting Exercises Dorsiflexion Sitting Exercise Name Dorsiflexion Side left Resistance Lv 1 Hamstring Curls Sitting Exercise Name HS curl Side left Resistance Lv 3 Equipment Used T-band Gait Training Gait Activity No AD Description No AD Device Used None Level of Assistance SBA Distance/Duration 950' x1 Comments VCs to promote heel-toe gait, extend left knee during stance phase Neuro Re-Education Treatment Balance Activities Cone transfers Details Bending down ball pick-up from cone, kick cone over, ball toss to target PT-OP-R Modalities Start: 09/17/19 18:00 Freq: Status: Active Protocol: Document 03/23/21 11:15 DCW (Rec: 03/23/21 12:07 DCW [id number]) Electric Stimulation Electric Stimulation Interferential Current (IFC) Body Location L ant ankle Duration (Minutes) 15 Patient Position Sitting Combined With Heat/Cold Cold Pack PT-OP-S Aquatic Treatment Start: 09/17/19 18:00 Freq: Status: Active Protocol: Document 01/30/20 12:30 LJ (Rec: 01/30/20 14:54 LJ [id number]) Aquatics Treatment Pool Entry/Exit Pool Entry/Exit Method Lift Assistance Minimal Assistance Water Walking Slow motion Water Level Chest Level Walking Equipment wet vest, UE float, #2.5 ankle wt Level of Assistance Standby Assistance,Contact Guard Assistance,Moderate Assistance Comments emphasis on LLE extension stance phase January Water Level Chest Level Walking Equipment wet vest, UE float, #2.5 ankle wt Level of Assistance Standby Assistance,Contact Guard Assistance,Moderate Assistance,Verbal Cues Forward with emphasis on reciprocal gait pattern Water Level Chest Level Level of Assistance Standby Assistance,Contact Guard Assistance,Minimal Assistance,Verbal Cues Comments wetvest, sm float on LUE, #3. 75 ankle wt on LLE start stop walking forward and backward Water Level Chest Level Walking Equipment vest Level of Assistance Contact Guard Assistance, Verbal Cues Comments wetvest, sm float on LUE, #3. 75 ankle wt on LLE Sideways Water Level Chest Level Walking Equipment wet vest, UE float, #2.5 ankle wt Level of Assistance Standby Assistance,Contact Guard Assistance,Minimal Assistance,Verbal Cues Lower Extremity Exercises SL aquats Details HH on wall Body Position Standing Water Level Waist Level Equipment wetvest Reps/Duration 2x10 LLE Comments VC to extend knee knee extensions Details seated in lift chair Equipment Ankle Weight- 5.0# Reps/Duration 20 B Comments seated in lift SLS Details bracing LLE Body Position Standing Water Level Chest Level Equipment vest Reps/Duration 1 min marching at wall Water Level Chest Level Reps/Duration 2 min Comments opposite UE/LE tapping wall squats Body Position Standing Water Level Chest Level Reps/Duration 20x Lower Extremity Stretches adductors Comments seated in chair Gastroc Body Position Sitting Reps/Duration 2 x 45 sec B Comments manual assist hip flexors Details at wall Body Position Standing Water Level Waist Level Reps/Duration 2x45 Comments manually assisted HS Details at wall Body Position Sitting Water Level Waist Level Equipment wet vest Reps/Duration 2x45 Comments sitting in lift chair assisted Upper Extremity Exercises breastroke UE's Body Position Standing Water Level Chest Level Reps/Duration 3 min Comments during walking and deep water hor ab/ad Water Level Chest Level Comments during side walking, CGA Balance step ups Details step ups/down using boxes Body Position Standing Water Level Waist Level Equipment 8 boxes Comments mod verbal cues for coordination [place] Activities [place] Activities Bicycle,Cross Country Equipment wet vest, white noodle Duration 7 min Comments Guy and cues for vertical alignmernt. PT-OP-T Assessment and Plan Start: 09/17/19 18:00 Freq: Status: Active Protocol: Document 03/23/21 11:15 DCW (Rec: 03/23/21 12:07 DCW [id number]) Physical Therapy Assessment Impairments Impairments Activity Tolerance,Balance, Coordination,Functional Activities,Functional Mobility ,Gait,Pain,ROM,Sensation, Strength,Tone,Transfers Goals Six Impairment Decreased Static Balance Short Term Goal (STG) Pt to score <9 seconds on TUG STG Duration Met Oil[employer]er Goal (LTG) MET - Pt to score 35/56 or better on the Adler Balance MET - Pt to score 45/56 or better on the Adler Balance Scale NEW GOAL: Pt to score 53/56 on Adler Balance Scale LTG Duration 05/05/21 Five Impairment Pt uses R rail and step-over gait pattern ascending stairs Skilled Nursing Goal (LTG) Pt to ascend/descend stairs independently without use of rail LTG Duration 05/05/21 - Improving Four Impairment Pt demonstrates strength impairment throughout left LE Skilled Nursing Goal (LTG) Pt to display MMT >3+/5 through L LE LTG Duration 05/05/21 - Met /c all but inversion Three Impairment Pt SBA for transfers and bed mobility d/t Left Neglect [employer] Goal (LTG) Pt to demonstrate independent transfers and bed mobility with an ability to address left LE and UE 80% of the time LTG Duration Met Two Impairment Pt ambulates 280' CGA /s an AD Short Term Goal (STG) Pt to ambulate 400' SBA independently STG Duration Met [employer] Goal (LTG) Pt to ambulate 800' during 6 MWT Independently without SBA LTG Duration 05/05/21 - Improving (1374' SBA ) One Impairment Pt does not have an appropriate home exercise program Short Term Goal (STG) Pt to be independent and compliant with an appropriate HEP STG Duration Met Assessment Summary Assessment Pt having a little bit more difficulty with his left knee today, fatigued more quickly, had trouble keeping knee in alignment during single leg press. Physical Therapy Plan Frequency and Duration Frequency of Treatment 2x/Week Duration of Treatment 3 months Plan of Care Start Date 02/02/21 Plan of Care End Date 05/05/21 Therapeutic Interventions Therapeutic Interventions Aquatic Therapy,Balance Training,Coordination Training ,Gait Training,Home Exercise Program,Manual Therapy, Neuromuscular Re-education, Patient/Caregiver Education, Self-Care/Home Management, Therapeutic Activities, Therapeutic Exercises Modalities Cold Pack/Ice Massage,Electric Stimulation,Hot Packs, Ultrasound Next Visit Focus/Plan Next Note Type Treatment Note Next Visit Plan SLS, visual scanning, increased activity tolerance
--- NOTE | 2021-03-30 12:02 | PT.OTN ---
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) Physical Therapy Treatment Note PT-OP-A Visit Information Start: 09/17/19 18:00 Freq: Status: Active Protocol: Document 03/30/21 11:18 DCW (Rec: 03/30/21 12:02 DCW [id number]) Out-Patient Physical Therapy Visit Information Visit Information Visit Type Treatment Note Visit Start Time 11:18 Visit Stop Time 12:12 Total Visit Minutes 54 Visit Number 111 Number of TANK TRUCK MILK RECEIVER Visits 0 Evaluation Information Evaluation Date 09/17/19 PT-OP-B Current Condition Start: 09/17/19 18:00 Freq: Status: Active Protocol: Document 09/17/19 12:00 DCW (Rec: 09/18/19 10:29 DCW [id number]) Current Condition History of Current Condition Onset Date 04/14/19 Current Complaints Hemiparesis secondary to CVA History of Current Condition Pt is a 69 year old male presenting to skilled outpatient physical therapy with left-side neglect, hemiparesis, loss of independence, and difficulty walking following an intraparenchymal hemorrhage on 04/14/19. Pt was transferred from [facility] to [facility], where a craniotomy was performed on 04/16/19. Pt completed 7 weeks of rehab/ recovery at [facility], and then underwent a second surgery on 06/26/19 to replace the skull fragment. Pt was then at an acute rehab facility 06/30-07/18/19, and since then has been receiving home health physical therapy. Pt presents today with limited left-sided function, left visual and physical neglect, difficulty with transfers, decreased activity tolerance, decreased gait, and many other secondary effects following his CVA. Pt has been working on ambulation with a vale walker with home health, and his states he has walked around 100' a few times, but always with a therapist, as she does not feel comfortable walking with him yet. Pt exclusively gets around at time of evaluation in a manual wheelchair. Pt's transfers have been going fairly well, with his caregivers performing CGA, however pt will occasionally need assistance with placement of his left UE and LE due to neglect. Pt's biggest complaint at the moment is leg pain, his reports they have tried PT, Massage, CBD il, Tylenol, Oxycodine, and Gabapentin, all with minimal benefit. Prior to CVA, pt was fully independent in all activities. Pt and have garegivers 8 hrs a day for assistance. Prior Treatments and Tests Craniotomy 04/16/19, Acute rehab, Skull fragment replacement 06/26/19, home health PT Prior Functional Status Baseline Function- ADL's Independent Baseline Function- Mobility Independent PT-OP-C Subjective Start: 09/17/19 18:00 Freq: Status: Active Protocol: Document 03/30/21 11:18 DCW (Rec: 03/30/21 12:02 DCW [id number]) OP-PT Subjective Patient Comments Patient Comments Pt had his stress test earlier this week, reports it felt weird, but he wasn't too tired afterward. PT-OP-D Balance Start: 08/04/20 14:14 Freq: Status: Active Protocol: Document 02/02/21 11:15 DCW (Rec: 02/02/21 11:56 DCW [id number]) Balance Tests Adler Balance Test Adler Balance Test Score 49/56 Adler Impairment Rating 1 to 19% Impaired (Score 45-55 ) Adler Balance Assessment Evaluation Sitting to Standing Ability Independent w/out Hands Unsupported Stance Safely- 2 minutes Sitting Unsupported, Feet on Floor Safely- 2 minutes Standing to Sitting Ability Safely, Minimal Hand Use Transfer Ability Safely, Minimal Hand Use Unsupported Stance- Eyes Closed Safely, 10 seconds Unsupported Stance- Eyes Open Independent, 1 minute Reaching Forward Standing Confidently, 10 inches Pick- Up Object From Floor Independent/Safe Look Behind Shoulder - Standing Shifts Weight Well Turning 360 Degrees Turns , < 4 secs Unsupported Stance, Alternating Feet on 4 Steps w/Supervision Stair Unsupported Tandem Stance Holds Tandem- 30 seconds Unilateral Leg Stance Lifts Leg/Unable to Hold Total Score Adler Total Score (out of 56 points) 49 Adler Impairment Rating 1 to 19% Impaired (Score 45-55 ) PT-OP-E Functional Tests Start: 05/04/20 15:15 Freq: Status: Active Protocol: Document 02/02/21 11:15 DCW (Rec: 02/02/21 11:56 DCW [id number]) Functional Tests 6 Minute Walk Test Distance 1374 Device Used none Comments 3.82 ft/sec Timed Up and Go (TUG) Score 8.2 seconds Comments 3-trial average (8.58, 8.35, 7 .67) TUG Impairment Rating 0% Impaired (Score 10) PT-OP-G Mobility & Gait Start: 09/17/19 18:00 Freq: Status: Active Protocol: Document 02/02/21 11:15 DCW (Rec: 02/02/21 11:56 DCW [id number]) OP Gait Assessment Gait Gait Assistance Required: Standby Assistance Distance (Feet) 1,374 Assistive Devices Assistive Device None Gait Deviations General Gait Pattern Antalgic,Ataxic,Flexed Trunk Factors Limiting Gait Function Factors Limiting Gait Function Abnormal Tonal Influences, Decreased Activity Tolerance, Decreased Sensation,Decreased Strength Stair Climbing Evaluation Evaluation Level of Assist On Stairs Standby Assistance Devices Stair Climbing Assistive Devices Right Railing Technique/Endurance Stair Climbing Direction Ascend and Descend Stair Climbing Technique Step Over Step Number of Steps Climbed 4 PT-OP-H Neuro Start: 09/17/19 18:00 Freq: Status: Active Protocol: Document 02/02/21 11:15 DCW (Rec: 02/02/21 11:56 DCW [id number]) Deep Tendon Reflex & Clonus Assessment Deep Tendon Reflex Left Achilles Deep Tendon Reflex 4+ Brisk Left Patellar Deep Tendon Reflex 3+ Normal But Brisk Ankle Clonus Left Clonus Assessment Sustained Muscle Tone Tone Assessment Left Lower Extremity Flexor Tone Description Mild Hypotonicity PT-OP-M Strength Start: 09/17/19 18:00 Freq: Status: Active Protocol: Document 02/02/21 11:15 DCW (Rec: 02/02/21 11:56 DCW [id number]) Hip Strength Hip Manual Muscle Testing Left Flexion (L2) 4 Good Extension (S1) 5 Normal Abduction 4 Good Adduction 4+ Good+ External Rotation 4 Good Internal Rotation 4 Good Knee Strength Knee Manual Muscle Testing Left Flexion (S2) 4 Good Extension (L3) 5 Normal Ankle/Foot Strength Ankle and Foot Manual Muscle Testing Left Dorsiflexion (L4) 4 Good Plantarflexion (S1) 4 Good Inversion 4- Good- Eversion (S1) 3 Fair PT-OP-Q Treatments Start: 09/17/19 18:00 Freq: Status: Active Protocol: Document 03/30/21 11:18 DCW (Rec: 03/30/21 12:02 DCW [id number]) Gym Equipment Shuttle Recovery Unilateral Heel Raises Details Left Resistance 25# Reps/Time calf stretch at end Unilateral Squats Details Left Resistance 62# Shuttle Recovery Platform Stable Bilateral Squats Resistance 100# Shuttle Recovery Platform Stable Reps/Time x50 Shuttle Balance Red Details Wide SRIDEVI, Staggered Comments Min Ax1 Gait Training Gait Activity No AD Description No AD Device Used None Level of Assistance SBA Distance/Duration 950' x1 Comments VCs to promote heel-toe gait, extend left knee during stance phase Neuro Re-Education Treatment Balance Activities Hurdles Details Hurdles Comments Min Ax1 Cone transfers Details Bending down ball pick-up from cone, kick cone over, ball toss to target PT-OP-R Modalities Start: 09/17/19 18:00 Freq: Status: Active Protocol: Document 03/30/21 11:18 DCW (Rec: 03/30/21 12:02 DCW [id number]) Electric Stimulation Electric Stimulation Interferential Current (IFC) Body Location L ant ankle Duration (Minutes) 15 Patient Position Sitting Combined With Heat/Cold Cold Pack PT-OP-S Aquatic Treatment Start: 09/17/19 18:00 Freq: Status: Active Protocol: Document 01/30/20 12:30 LJ (Rec: 01/30/20 14:54 LJ [id number]) Aquatics Treatment Pool Entry/Exit Pool Entry/Exit Method Lift Assistance Minimal Assistance Water Walking Slow motion Water Level Chest Level Walking Equipment wet vest, UE float, #2.5 ankle wt Level of Assistance Standby Assistance,Contact Guard Assistance,Moderate Assistance Comments emphasis on LLE extension stance phase January Water Level Chest Level Walking Equipment wet vest, UE float, #2.5 ankle wt Level of Assistance Standby Assistance,Contact Guard Assistance,Moderate Assistance,Verbal Cues Forward with emphasis on reciprocal gait pattern Water Level Chest Level Level of Assistance Standby Assistance,Contact Guard Assistance,Minimal Assistance,Verbal Cues Comments wetvest, sm float on LUE, #3. 75 ankle wt on LLE start stop walking forward and backward Water Level Chest Level Walking Equipment vest Level of Assistance Contact Guard Assistance, Verbal Cues Comments wetvest, sm float on LUE, #3. 75 ankle wt on LLE Sideways Water Level Chest Level Walking Equipment wet vest, UE float, #2.5 ankle wt Level of Assistance Standby Assistance,Contact Guard Assistance,Minimal Assistance,Verbal Cues Lower Extremity Exercises SL aquats Details HH on wall Body Position Standing Water Level Waist Level Equipment wetvest Reps/Duration 2x10 LLE Comments VC to extend knee knee extensions Details seated in lift chair Equipment Ankle Weight- 5.0# Reps/Duration 20 B Comments seated in lift SLS Details bracing LLE Body Position Standing Water Level Chest Level Equipment vest Reps/Duration 1 min marching at wall Water Level Chest Level Reps/Duration 2 min Comments opposite UE/LE tapping wall squats Body Position Standing Water Level Chest Level Reps/Duration 20x Lower Extremity Stretches adductors Comments seated in chair Gastroc Body Position Sitting Reps/Duration 2 x 45 sec B Comments manual assist hip flexors Details at wall Body Position Standing Water Level Waist Level Reps/Duration 2x45 Comments manually assisted HS Details at wall Body Position Sitting Water Level Waist Level Equipment wet vest Reps/Duration 2x45 Comments sitting in lift chair assisted Upper Extremity Exercises breastroke UE's Body Position Standing Water Level Chest Level Reps/Duration 3 min Comments during walking and deep water hor ab/ad Water Level Chest Level Comments during side walking, CGA Balance step ups Details step ups/down using boxes Body Position Standing Water Level Waist Level Equipment 8 boxes Comments mod verbal cues for coordination [place] Activities [place] Activities Bicycle,Cross Country Equipment wet vest, white noodle Duration 7 min Comments Guy and cues for vertical alignmernt. PT-OP-T Assessment and Plan Start: 09/17/19 18:00 Freq: Status: Active Protocol: Document 03/30/21 11:18 DCW (Rec: 03/30/21 12:02 DCW [id number]) Physical Therapy Assessment Impairments Impairments Activity Tolerance,Balance, Coordination,Functional Activities,Functional Mobility ,Gait,Pain,ROM,Sensation, Strength,Tone,Transfers Goals Six Impairment Decreased Static Balance Short Term Goal (STG) Pt to score <9 seconds on TUG STG Duration Met Detention Goal (LTG) MET - Pt to score 35/56 or better on the Adler Balance MET - Pt to score 45/56 or better on the Adler Balance Scale NEW GOAL: Pt to score 53/56 on Adler Balance Scale LTG Duration 05/05/21 Five Impairment Pt uses R rail and step-over gait pattern ascending stairs It Senior Software Engineer Java Goal (LTG) Pt to ascend/descend stairs independently without use of rail LTG Duration 05/05/21 - Improving Four Impairment Pt demonstrates strength impairment throughout left LE It Senior Software Engineer [employer] Goal (LTG) Pt to display MMT >3+/5 through L LE LTG Duration 05/05/21 - Met /c all but inversion Three Impairment Pt SBA for transfers and bed mobility d/t Left Neglect It Senior Software Engineer [employer] Goal (LTG) Pt to demonstrate independent transfers and bed mobility with an ability to address left LE and UE 80% of the time LTG Duration Met Two Impairment Pt ambulates 280' CGA /s an AD Short Term Goal (STG) Pt to ambulate 400' SBA independently STG Duration Met It Senior Software Engineer [employer] Goal (LTG) Pt to ambulate 800' during 6 MWT Independently without SBA LTG Duration 05/05/21 - Improving (1374' SBA ) One Impairment Pt does not have an appropriate home exercise program Short Term Goal (STG) Pt to be independent and compliant with an appropriate HEP STG Duration Met Assessment Summary Assessment Pt did well today, able to breathe easier after gait today, showed good balance overall on balance board. Physical Therapy Plan Frequency and Duration Frequency of Treatment 2x/Week Duration of Treatment 3 months Plan of Care Start Date 02/02/21 Plan of Care End Date 05/05/21 Therapeutic Interventions Therapeutic Interventions Aquatic Therapy,Balance Training,Coordination Training ,Gait Training,Home Exercise Program,Manual Therapy, Neuromuscular Re-education, Patient/Caregiver Education, Self-Care/Home Management, Therapeutic Activities, Therapeutic Exercises Modalities Cold Pack/Ice Massage,Electric Stimulation,Hot Packs, Ultrasound Next Visit Focus/Plan Next Note Type Treatment Note Next Visit Plan SLS, visual scanning, increased activity tolerance
--- NOTE | 2021-04-04 12:06 | PT.OTN ---
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) Physical Therapy Treatment Note PT-OP-A Visit Information Start: 09/17/19 18:00 Freq: Status: Active Protocol: Document 04/04/21 11:17 DCW (Rec: 04/04/21 12:05 DCW [id number]) Out-Patient Physical Therapy Visit Information Visit Information Visit Type Treatment Note Visit Start Time 11:17 Visit Stop Time 12:10 Total Visit Minutes 53 Visit Number 112 Number of METAL FILER Visits 0 Evaluation Information Evaluation Date 09/17/19 PT-OP-B Current Condition Start: 09/17/19 18:00 Freq: Status: Active Protocol: Document 09/17/19 12:00 DCW (Rec: 09/18/19 10:29 DCW [id number]) Current Condition History of Current Condition Onset Date 04/14/19 Current Complaints Hemiparesis secondary to CVA History of Current Condition Pt is a 69 year old male presenting to skilled outpatient physical therapy with left-side neglect, hemiparesis, loss of independence, and difficulty walking following an intraparenchymal hemorrhage on 04/14/19. Pt was transferred [facility] to [facility], where a craniotomy was performed on 04/16/19. Pt completed 7 weeks of rehab/ recovery at [facility], and then underwent a second surgery on 06/26/19 to replace the skull fragment. Pt was then at an acute rehab facility 06/30-07/18/19, and since then has been receiving home health physical therapy. Pt presents today with limited left-sided function, left visual and physical neglect, difficulty with transfers, decreased activity tolerance, decreased gait, and many other secondary effects following his CVA. Pt has been working on ambulation with a vale walker with home health, and his states he has walked around 100' a few times, but always with a therapist, as she does not feel comfortable walking with him yet. Pt exclusively gets around at time of evaluation in a manual wheelchair. Pt's transfers have been going fairly well, with his caregivers performing CGA, however pt will occasionally need assistance with placement of his left UE and LE due to neglect. Pt's biggest complaint at the moment is leg pain, his reports they have tried PT, Massage, CBD il, Tylenol, Oxycodine, and Gabapentin, all with minimal benefit. Prior to CVA, pt was fully independent in all activities. Pt and have garegivers 8 hrs a day for assistance. Prior Treatments and Tests Craniotomy 04/16/19, Acute rehab, Skull fragment replacement 06/26/19, home health PT Prior Functional Status Baseline Function- ADL's Independent Baseline Function- Mobility Independent PT-OP-C Subjective Start: 09/17/19 18:00 Freq: Status: Active Protocol: Document 04/04/21 11:17 DCW (Rec: 04/04/21 12:06 DCW [id number]) OP-PT Subjective Patient Comments Patient Comments My breathing is still giving me trouble. PT-OP-D Balance Start: 08/04/20 14:14 Freq: Status: Active Protocol: Document 02/02/21 11:15 DCW (Rec: 02/02/21 11:56 DCW [id number]) Balance Tests Adler Balance Test Adler Balance Test Score 49/56 Adler Impairment Rating 1 to 19% Impaired (Score 45-55 ) Adler Balance Assessment Evaluation Sitting to Standing Ability Independent w/out Hands Unsupported Stance Safely- 2 minutes Sitting Unsupported, Feet on Floor Safely- 2 minutes Standing to Sitting Ability Safely, Minimal Hand Use Transfer Ability Safely, Minimal Hand Use Unsupported Stance- Eyes Closed Safely, 10 seconds Unsupported Stance- Eyes Open Independent, 1 minute Reaching Forward Standing Confidently, 10 inches Pick- Up Object From Floor Independent/Safe Look Behind Shoulder - Standing Shifts Weight Well Turning 360 Degrees Turns , < 4 secs Unsupported Stance, Alternating Feet on 4 Steps w/Supervision Stair Unsupported Tandem Stance Holds Tandem- 30 seconds Unilateral Leg Stance Lifts Leg/Unable to Hold Total Score Adler Total Score (out of 56 points) 49 Adler Impairment Rating 1 to 19% Impaired (Score 45-55 ) PT-OP-E Functional Tests Start: 05/04/20 15:15 Freq: Status: Active Protocol: Document 02/02/21 11:15 DCW (Rec: 02/02/21 11:56 DCW [id number]) Functional Tests 6 Minute Walk Test Distance 1374 Device Used none Comments 3.82 ft/sec Timed Up and Go (TUG) Score 8.2 seconds Comments 3-trial average (8.58, 8.35, 7 .67) TUG Impairment Rating 0% Impaired (Score 10) PT-OP-G Mobility & Gait Start: 09/17/19 18:00 Freq: Status: Active Protocol: Document 02/02/21 11:15 DCW (Rec: 02/02/21 11:56 DCW [id number]) OP Gait Assessment Gait Gait Assistance Required: Standby Assistance Distance (Feet) 1,374 Assistive Devices Assistive Device None Gait Deviations General Gait Pattern Antalgic,Ataxic,Flexed Trunk Factors Limiting Gait Function Factors Limiting Gait Function Abnormal Tonal Influences, Decreased Activity Tolerance, Decreased Sensation,Decreased Strength Stair Climbing Evaluation Evaluation Level of Assist On Stairs Standby Assistance Devices Stair Climbing Assistive Devices Right Railing Technique/Endurance Stair Climbing Direction Ascend and Descend Stair Climbing Technique Step Over Step Number of Steps Climbed 4 PT-OP-H Neuro Start: 09/17/19 18:00 Freq: Status: Active Protocol: Document 02/02/21 11:15 DCW (Rec: 02/02/21 11:56 DCW [id number]) Deep Tendon Reflex & Clonus Assessment Deep Tendon Reflex Left Achilles Deep Tendon Reflex 4+ Brisk Left Patellar Deep Tendon Reflex 3+ Normal But Brisk Ankle Clonus Left Clonus Assessment Sustained Muscle Tone Tone Assessment Left Lower Extremity Flexor Tone Description Mild Hypotonicity PT-OP-M Strength Start: 09/17/19 18:00 Freq: Status: Active Protocol: Document 02/02/21 11:15 DCW (Rec: 02/02/21 11:56 DCW [id number]) Hip Strength Hip Manual Muscle Testing Left Flexion (L2) 4 Good Extension (S1) 5 Normal Abduction 4 Good Adduction 4+ Good+ External Rotation 4 Good Internal Rotation 4 Good Knee Strength Knee Manual Muscle Testing Left Flexion (S2) 4 Good Extension (L3) 5 Normal Ankle/Foot Strength Ankle and Foot Manual Muscle Testing Left Dorsiflexion (L4) 4 Good Plantarflexion (S1) 4 Good Inversion 4- Good- Eversion (S1) 3 Fair PT-OP-Q Treatments Start: 09/17/19 18:00 Freq: Status: Active Protocol: Document 04/04/21 11:17 DCW (Rec: 04/04/21 12:05 DCW [id number]) Cardio Equipment Treadmill Duration (Minutes) 10 Speed 2.0 Incline 0 Other 0.32 miles Gym Equipment Shuttle Recovery Unilateral Heel Raises Details Left Resistance 25# Reps/Time calf stretch at end Unilateral Squats Details Left Resistance 62# Shuttle Recovery Platform Stable Bilateral Squats Resistance 100# Shuttle Recovery Platform Stable Reps/Time x50 Shuttle Balance Red Details Wide SRIDEVI, Staggered Comments Min Ax1 Neuro Re-Education Treatment Balance Activities Cone transfers Details Bending down ball pick-up from cone, kick cone over, ball toss to target PT-OP-R Modalities Start: 09/17/19 18:00 Freq: Status: Active Protocol: Document 04/04/21 11:17 DCW (Rec: 04/04/21 12:05 DCW [id number]) Electric Stimulation Electric Stimulation Interferential Current (IFC) Body Location L ant ankle Duration (Minutes) 15 Patient Position Sitting Combined With Heat/Cold Cold Pack PT-OP-S Aquatic Treatment Start: 09/17/19 18:00 Freq: Status: Active Protocol: Document 01/30/20 12:30 LJ (Rec: 01/30/20 14:54 LJ [id number]) Aquatics Treatment Pool Entry/Exit Pool Entry/Exit Method Lift Assistance Minimal Assistance Water Walking Slow motion Water Level Chest Level Walking Equipment wet vest, UE float, #2.5 ankle wt Level of Assistance Standby Assistance,Contact Guard Assistance,Moderate Assistance Comments emphasis on LLE extension stance phase January Water Level Chest Level Walking Equipment wet vest, UE float, #2.5 ankle wt Level of Assistance Standby Assistance,Contact Guard Assistance,Moderate Assistance,Verbal Cues Forward with emphasis on reciprocal gait pattern Water Level Chest Level Level of Assistance Standby Assistance,Contact Guard Assistance,Minimal Assistance,Verbal Cues Comments wetvest, sm float on LUE, #3. 75 ankle wt on LLE start stop walking forward and backward Water Level Chest Level Walking Equipment vest Level of Assistance Contact Guard Assistance, Verbal Cues Comments wetvest, sm float on LUE, #3. 75 ankle wt on LLE Sideways Water Level Chest Level Walking Equipment wet vest, UE float, #2.5 ankle wt Level of Assistance Standby Assistance,Contact Guard Assistance,Minimal Assistance,Verbal Cues Lower Extremity Exercises SL aquats Details HH on wall Body Position Standing Water Level Waist Level Equipment wetvest Reps/Duration 2x10 LLE Comments VC to extend knee knee extensions Details seated in lift chair Equipment Ankle Weight- 5.0# Reps/Duration 20 B Comments seated in lift SLS Details bracing LLE Body Position Standing Water Level Chest Level Equipment vest Reps/Duration 1 min marching at wall Water Level Chest Level Reps/Duration 2 min Comments opposite UE/LE tapping wall squats Body Position Standing Water Level Chest Level Reps/Duration 20x Lower Extremity Stretches adductors Comments seated in chair Gastroc Body Position Sitting Reps/Duration 2 x 45 sec B Comments manual assist hip flexors Details at wall Body Position Standing Water Level Waist Level Reps/Duration 2x45 Comments manually assisted HS Details at wall Body Position Sitting Water Level Waist Level Equipment wet vest Reps/Duration 2x45 Comments sitting in lift chair assisted Upper Extremity Exercises breastroke UE's Body Position Standing Water Level Chest Level Reps/Duration 3 min Comments during walking and deep water hor ab/ad Water Level Chest Level Comments during side walking, CGA Balance step ups Details step ups/down using boxes Body Position Standing Water Level Waist Level Equipment 8 boxes Comments mod verbal cues for coordination [place] Activities [place] Activities Bicycle,Cross Country Equipment wet vest, white noodle Duration 7 min Comments Guy and cues for vertical alignmernt. PT-OP-T Assessment and Plan Start: 09/17/19 18:00 Freq: Status: Active Protocol: Document 04/04/21 11:17 DCW (Rec: 04/04/21 12:05 DCW [id number]) Physical Therapy Assessment Impairments Impairments Activity Tolerance,Balance, Coordination,Functional Activities,Functional Mobility ,Gait,Pain,ROM,Sensation, Strength,Tone,Transfers Goals Six Impairment Decreased Static Balance Short Term Goal (STG) Pt to score <9 seconds on TUG STG Duration Met Litigation Associate Goal (LTG) MET - Pt to score 35/56 or better on the Adler Balance MET - Pt to score 45/56 or better on the Adler Balance Scale NEW GOAL: Pt to score 53/56 on Adler Balance Scale LTG Duration 05/05/21 Five Impairment Pt uses R rail and step-over gait pattern ascending stairs Retirement Goal (LTG) Pt to ascend/descend stairs independently without use of rail LTG Duration 05/05/21 - Improving Four Impairment Pt demonstrates strength impairment throughout left LE Retirement Goal (LTG) Pt to display MMT >3+/5 through L LE LTG Duration 05/05/21 - Met /c all but inversion Three Impairment Pt SBA for transfers and bed mobility d/t Left Neglect Retirement Goal (LTG) Pt to demonstrate independent transfers and bed mobility with an ability to address left LE and UE 80% of the time LTG Duration Met Two Impairment Pt ambulates 280' CGA /s an AD Short Term Goal (STG) Pt to ambulate 400' SBA independently STG Duration Met Litigation Associate Goal (LTG) Pt to ambulate 800' during 6 MWT Independently without SBA LTG Duration 05/05/21 - Improving (1374' SBA ) One Impairment Pt does not have an appropriate home exercise program Short Term Goal (STG) Pt to be independent and compliant with an appropriate HEP STG Duration Met Assessment Summary Assessment Pt tolerated treatment well, still some SOB with treadmill walking, pt does have an appointment tomorrow for review of stress test results from last week. Physical Therapy Plan Frequency and Duration Frequency of Treatment 2x/Week Duration of Treatment 3 months Plan of Care Start Date 02/02/21 Plan of Care End Date 05/05/21 Therapeutic Interventions Therapeutic Interventions Aquatic Therapy,Balance Training,Coordination Training ,Gait Training,Home Exercise Program,Manual Therapy, Neuromuscular Re-education, Patient/Caregiver Education, Self-Care/Home Management, Therapeutic Activities, Therapeutic Exercises Modalities Cold Pack/Ice Massage,Electric Stimulation,Hot Packs, Ultrasound Next Visit Focus/Plan Next Note Type Treatment Note Next Visit Plan SLS, visual scanning, increased activity tolerance
--- NOTE | 2021-04-06 11:59 | PT.OTN ---
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) Physical Therapy Treatment Note PT-OP-A Visit Information Start: 09/17/19 18:00 Freq: Status: Active Protocol: Document 04/06/21 11:15 DCW (Rec: 04/06/21 11:58 DCW [id number]) Out-Patient Physical Therapy Visit Information Visit Information Visit Type Treatment Note Visit Start Time 11:15 Visit Stop Time 12:10 Total Visit Minutes 55 Visit Number 113 Number of DETONATOR MAKER Visits 0 Evaluation Information Evaluation Date 09/17/19 PT-OP-B Current Condition Start: 09/17/19 18:00 Freq: Status: Active Protocol: Document 09/17/19 12:00 DCW (Rec: 09/18/19 10:29 DCW [id number]) Current Condition History of Current Condition Onset Date 04/14/19 Current Complaints Hemiparesis secondary to CVA History of Current Condition Pt is a 69 year old male presenting to skilled outpatient physical therapy with left-side neglect, hemiparesis, loss of independence, and difficulty walking following an intraparenchymal hemorrhage on 04/14/19. Pt was transferred from [facility] to [facility], where a craniotomy was performed on 04/16/19. Pt completed 7 weeks of rehab/ recovery at [facility], and then underwent a second surgery on 06/26/19 to replace the skull fragment. Pt was then at an acute rehab facility 06/30-07/18/19, and since then has been receiving home health physical therapy. Pt presents today with limited left-sided function, left visual and physical neglect, difficulty with transfers, decreased activity tolerance, decreased gait, and many other secondary effects following his CVA. Pt has been working on ambulation with a vale walker with home health, and his states he has walked around 100' a few times, but always with a therapist, as she does not feel comfortable walking with him yet. Pt exclusively gets around at time of evaluation in a manual wheelchair. Pt's transfers have been going fairly well, with his caregivers performing CGA, however pt will occasionally need assistance with placement of his left UE and LE due to neglect. Pt's biggest complaint at the moment is leg pain, his reports they have tried PT, Massage, CBD il, Tylenol, Oxycodine, and Gabapentin, all with minimal benefit. Prior to CVA, pt was fully independent in all activities. Pt and have garegivers 8 hrs a day for assistance. Prior Treatments and Tests Craniotomy 04/16/19, Acute rehab, Skull fragment replacement 06/26/19, home health PT Prior Functional Status Baseline Function- ADL's Independent Baseline Function- Mobility Independent PT-OP-C Subjective Start: 09/17/19 18:00 Freq: Status: Active Protocol: Document 04/06/21 11:15 DCW (Rec: 04/06/21 11:59 DCW [id number]) OP-PT Subjective Patient Comments Patient Comments Pt reports he is feeling good today. PT-OP-D Balance Start: 08/04/20 14:14 Freq: Status: Active Protocol: Document 02/02/21 11:15 DCW (Rec: 02/02/21 11:56 DCW [id number]) Balance Tests Adler Balance Test Adler Balance Test Score 49/56 Adler Impairment Rating 1 to 19% Impaired (Score 45-55 ) Adler Balance Assessment Evaluation Sitting to Standing Ability Independent w/out Hands Unsupported Stance Safely- 2 minutes Sitting Unsupported, Feet on Floor Safely- 2 minutes Standing to Sitting Ability Safely, Minimal Hand Use Transfer Ability Safely, Minimal Hand Use Unsupported Stance- Eyes Closed Safely, 10 seconds Unsupported Stance- Eyes Open Independent, 1 minute Reaching Forward Standing Confidently, 10 inches Pick- Up Object From Floor Independent/Safe Look Behind Shoulder - Standing Shifts Weight Well Turning 360 Degrees Turns , < 4 secs Unsupported Stance, Alternating Feet on 4 Steps w/Supervision Stair Unsupported Tandem Stance Holds Tandem- 30 seconds Unilateral Leg Stance Lifts Leg/Unable to Hold Total Score Adler Total Score (out of 56 points) 49 Adler Impairment Rating 1 to 19% Impaired (Score 45-55 ) PT-OP-E Functional Tests Start: 05/04/20 15:15 Freq: Status: Active Protocol: Document 02/02/21 11:15 DCW (Rec: 02/02/21 11:56 DCW [id number]) Functional Tests 6 Minute Walk Test Distance 1374 Device Used none Comments 3.82 ft/sec Timed Up and Go (TUG) Score 8.2 seconds Comments 3-trial average (8.58, 8.35, 7 .67) TUG Impairment Rating 0% Impaired (Score 10) PT-OP-G Mobility & Gait Start: 09/17/19 18:00 Freq: Status: Active Protocol: Document 02/02/21 11:15 DCW (Rec: 02/02/21 11:56 DCW [id number]) OP Gait Assessment Gait Gait Assistance Required: Standby Assistance Distance (Feet) 1,374 Assistive Devices Assistive Device None Gait Deviations General Gait Pattern Antalgic,Ataxic,Flexed Trunk Factors Limiting Gait Function Factors Limiting Gait Function Abnormal Tonal Influences, Decreased Activity Tolerance, Decreased Sensation,Decreased Strength Stair Climbing Evaluation Evaluation Level of Assist On Stairs Standby Assistance Devices Stair Climbing Assistive Devices Right Railing Technique/Endurance Stair Climbing Direction Ascend and Descend Stair Climbing Technique Step Over Step Number of Steps Climbed 4 PT-OP-H Neuro Start: 09/17/19 18:00 Freq: Status: Active Protocol: Document 02/02/21 11:15 DCW (Rec: 02/02/21 11:56 DCW [id number]) Deep Tendon Reflex & Clonus Assessment Deep Tendon Reflex Left Achilles Deep Tendon Reflex 4+ Brisk Left Patellar Deep Tendon Reflex 3+ Normal But Brisk Ankle Clonus Left Clonus Assessment Sustained Muscle Tone Tone Assessment Left Lower Extremity Flexor Tone Description Mild Hypotonicity PT-OP-M Strength Start: 09/17/19 18:00 Freq: Status: Active Protocol: Document 02/02/21 11:15 DCW (Rec: 02/02/21 11:56 DCW [id number]) Hip Strength Hip Manual Muscle Testing Left Flexion (L2) 4 Good Extension (S1) 5 Normal Abduction 4 Good Adduction 4+ Good+ External Rotation 4 Good Internal Rotation 4 Good Knee Strength Knee Manual Muscle Testing Left Flexion (S2) 4 Good Extension (L3) 5 Normal Ankle/Foot Strength Ankle and Foot Manual Muscle Testing Left Dorsiflexion (L4) 4 Good Plantarflexion (S1) 4 Good Inversion 4- Good- Eversion (S1) 3 Fair PT-OP-Q Treatments Start: 09/17/19 18:00 Freq: Status: Active Protocol: Document 04/06/21 11:15 DCW (Rec: 04/06/21 11:58 DCW [id number]) Gym Equipment Shuttle Recovery Unilateral Heel Raises Details Left Resistance 25# Reps/Time calf stretch at end Unilateral Squats Details Left Resistance 62# Shuttle Recovery Platform Stable Bilateral Squats Resistance 100# Shuttle Recovery Platform Stable Reps/Time x50 Shuttle Balance Red Details Wide SRIDEVI, Staggered Comments Min Ax1 Gait Training Gait Activity No AD Description No AD Device Used None Level of Assistance SBA Distance/Duration 950' x1 Comments VCs to promote heel-toe gait, extend left knee during stance phase Neuro Re-Education Treatment Balance Activities Hurdles Details Hurdles Comments Min Ax1 Cone transfers Details Bending down ball pick-up from cone, kick cone over, ball toss to target PT-OP-R Modalities Start: 09/17/19 18:00 Freq: Status: Active Protocol: Document 04/06/21 11:15 DCW (Rec: 04/06/21 11:58 DCW [id number]) Electric Stimulation Electric Stimulation Interferential Current (IFC) Body Location L ant ankle Duration (Minutes) 15 Patient Position Sitting Combined With Heat/Cold Cold Pack PT-OP-S Aquatic Treatment Start: 09/17/19 18:00 Freq: Status: Active Protocol: Document 01/30/20 12:30 LJ (Rec: 01/30/20 14:54 LJ [id number]) Aquatics Treatment Pool Entry/Exit Pool Entry/Exit Method Lift Assistance Minimal Assistance Water Walking Slow motion Water Level Chest Level Walking Equipment wet vest, UE float, #2.5 ankle wt Level of Assistance Standby Assistance,Contact Guard Assistance,Moderate Assistance Comments emphasis on LLE extension stance phase January Water Level Chest Level Walking Equipment wet vest, UE float, #2.5 ankle wt Level of Assistance Standby Assistance,Contact Guard Assistance,Moderate Assistance,Verbal Cues Forward with emphasis on reciprocal gait pattern Water Level Chest Level Level of Assistance Standby Assistance,Contact Guard Assistance,Minimal Assistance,Verbal Cues Comments wetvest, sm float on LUE, #3. 75 ankle wt on LLE start stop walking forward and backward Water Level Chest Level Walking Equipment vest Level of Assistance Contact Guard Assistance, Verbal Cues Comments wetvest, sm float on LUE, #3. 75 ankle wt on LLE Sideways Water Level Chest Level Walking Equipment wet vest, UE float, #2.5 ankle wt Level of Assistance Standby Assistance,Contact Guard Assistance,Minimal Assistance,Verbal Cues Lower Extremity Exercises SL aquats Details HH on wall Body Position Standing Water Level Waist Level Equipment wetvest Reps/Duration 2x10 LLE Comments VC to extend knee knee extensions Details seated in lift chair Equipment Ankle Weight- 5.0# Reps/Duration 20 B Comments seated in lift SLS Details bracing LLE Body Position Standing Water Level Chest Level Equipment vest Reps/Duration 1 min marching at wall Water Level Chest Level Reps/Duration 2 min Comments opposite UE/LE tapping wall squats Body Position Standing Water Level Chest Level Reps/Duration 20x Lower Extremity Stretches adductors Comments seated in chair Gastroc Body Position Sitting Reps/Duration 2 x 45 sec B Comments manual assist hip flexors Details at wall Body Position Standing Water Level Waist Level Reps/Duration 2x45 Comments manually assisted HS Details at wall Body Position Sitting Water Level Waist Level Equipment wet vest Reps/Duration 2x45 Comments sitting in lift chair assisted Upper Extremity Exercises breastroke UE's Body Position Standing Water Level Chest Level Reps/Duration 3 min Comments during walking and deep water hor ab/ad Water Level Chest Level Comments during side walking, CGA Balance step ups Details step ups/down using boxes Body Position Standing Water Level Waist Level Equipment 8 boxes Comments mod verbal cues for coordination [place] Activities [place] Activities Bicycle,Cross Country Equipment wet vest, white noodle Duration 7 min Comments Guy and cues for vertical alignmernt. PT-OP-T Assessment and Plan Start: 09/17/19 18:00 Freq: Status: Active Protocol: Document 04/06/21 11:15 DCW (Rec: 04/06/21 11:58 DCW [id number]) Physical Therapy Assessment Impairments Impairments Activity Tolerance,Balance, Coordination,Functional Activities,Functional Mobility ,Gait,Pain,ROM,Sensation, Strength,Tone,Transfers Goals Six Impairment Decreased Static Balance Short Term Goal (STG) Pt to score <9 seconds on TUG STG Duration Met [employer] Goal (LTG) MET - Pt to score 35/56 or better on the Adler Balance MET - Pt to score 45/56 or better on the Adler Balance Scale NEW GOAL: Pt to score 53/56 on Adler Balance Scale LTG Duration 05/05/21 Five Impairment Pt uses R rail and step-over gait pattern ascending stairs [employer] Secretary Goal (LTG) Pt to ascend/descend stairs independently without use of rail LTG Duration 05/05/21 - Improving Four Impairment Pt demonstrates strength impairment throughout left LE Assisted Goal (LTG) Pt to display MMT >3+/5 through L LE LTG Duration 05/05/21 - Met /c all but inversion Three Impairment Pt SBA for transfers and bed mobility d/t Left Neglect [employer] Secretary Goal (LTG) Pt to demonstrate independent transfers and bed mobility with an ability to address left LE and UE 80% of the time LTG Duration Met Two Impairment Pt ambulates 280' CGA /s an AD Short Term Goal (STG) Pt to ambulate 400' SBA independently STG Duration Met Assisted Goal (LTG) Pt to ambulate 800' during 6 MWT Independently without SBA LTG Duration 05/05/21 - Improving (1374' SBA ) One Impairment Pt does not have an appropriate home exercise program Short Term Goal (STG) Pt to be independent and compliant with an appropriate HEP STG Duration Met Assessment Summary Assessment Pt did well today, appears to be getting much better with the hurdles, less frequently hitting hurdles during LE advancement. Physical Therapy Plan Frequency and Duration Frequency of Treatment 2x/Week Duration of Treatment 3 months Plan of Care Start Date 02/02/21 Plan of Care End Date 05/05/21 Therapeutic Interventions Therapeutic Interventions Aquatic Therapy,Balance Training,Coordination Training ,Gait Training,Home Exercise Program,Manual Therapy, Neuromuscular Re-education, Patient/Caregiver Education, Self-Care/Home Management, Therapeutic Activities, Therapeutic Exercises Modalities Cold Pack/Ice Massage,Electric Stimulation,Hot Packs, Ultrasound Next Visit Focus/Plan Next Note Type Treatment Note Next Visit Plan SLS, visual scanning, increased activity tolerance
--- NOTE | 2021-04-11 12:00 | PT.OTN ---
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) Physical Therapy Treatment Note PT-OP-A Visit Information Start: 09/17/19 18:00 Freq: Status: Active Protocol: Document 04/11/21 11:15 DCW (Rec: 04/11/21 12:00 DCW [id number]) Out-Patient Physical Therapy Visit Information Visit Information Visit Type Treatment Note Visit Start Time 11:15 Visit Stop Time 12:10 Total Visit Minutes 55 Visit Number 114 Number of SHUTTLE FITTING SUPERVISOR Visits 0 Evaluation Information Evaluation Date 09/17/19 PT-OP-B Current Condition Start: 09/17/19 18:00 Freq: Status: Active Protocol: Document 09/17/19 12:00 DCW (Rec: 09/18/19 10:29 DCW [id number]) Current Condition History of Current Condition Onset Date 04/14/19 Current Complaints Hemiparesis secondary to CVA History of Current Condition Pt is a 69 year old male presenting to skilled outpatient physical therapy with left-side neglect, hemiparesis, loss of independence, and difficulty walking following an intraparenchymal hemorrhage on 04/14/19. Pt was transferred from [facility] to [facility], where a craniotomy was performed on 04/16/19. Pt completed 7 weeks of rehab/ recovery at [facility], and then underwent a second surgery on 06/26/19 to replace the skull fragment. Pt was then at an acute rehab facility 06/30-07/18/19, and since then has been receiving home health physical therapy. Pt presents today with limited left-sided function, left visual and physical neglect, difficulty with transfers, decreased activity tolerance, decreased gait, and many other secondary effects following his CVA. Pt has been working on ambulation with a vale walker with home health, and his states he has walked around 100' a few times, but always with a therapist, as she does not feel comfortable walking with him yet. Pt exclusively gets around at time of evaluation in a manual wheelchair. Pt's transfers have been going fairly well, with his caregivers performing CGA, however pt will occasionally need assistance with placement of his left UE and LE due to neglect. Pt's biggest complaint at the moment is leg pain, his reports they have tried PT, Massage, CBD il, Tylenol, Oxycodine, and Gabapentin, all with minimal benefit. Prior to CVA, pt was fully independent in all activities. Pt and have garegivers 8 hrs a day for assistance. Prior Treatments and Tests Craniotomy 04/16/19, Acute rehab, Skull fragment replacement 06/26/19, home health PT Prior Functional Status Baseline Function- ADL's Independent Baseline Function- Mobility Independent PT-OP-C Subjective Start: 09/17/19 18:00 Freq: Status: Active Protocol: Document 04/11/21 11:15 DCW (Rec: 04/11/21 12:00 DCW [id number]) OP-PT Subjective Patient Comments Patient Comments Yesterday morning, I got up, and my low back hurt so much I could barely move. As I got up and got around, it did get better. PT-OP-D Balance Start: 08/04/20 14:14 Freq: Status: Active Protocol: Document 02/02/21 11:15 DCW (Rec: 02/02/21 11:56 DCW [id number]) Balance Tests Adler Balance Test Adler Balance Test Score 49/56 Adler Impairment Rating 1 to 19% Impaired (Score 45-55 ) Adler Balance Assessment Evaluation Sitting to Standing Ability Independent w/out Hands Unsupported Stance Safely- 2 minutes Sitting Unsupported, Feet on Floor Safely- 2 minutes Standing to Sitting Ability Safely, Minimal Hand Use Transfer Ability Safely, Minimal Hand Use Unsupported Stance- Eyes Closed Safely, 10 seconds Unsupported Stance- Eyes Open Independent, 1 minute Reaching Forward Standing Confidently, 10 inches Pick- Up Object From Floor Independent/Safe Look Behind Shoulder - Standing Shifts Weight Well Turning 360 Degrees Turns , < 4 secs Unsupported Stance, Alternating Feet on 4 Steps w/Supervision Stair Unsupported Tandem Stance Holds Tandem- 30 seconds Unilateral Leg Stance Lifts Leg/Unable to Hold Total Score Adler Total Score (out of 56 points) 49 Adler Impairment Rating 1 to 19% Impaired (Score 45-55 ) PT-OP-E Functional Tests Start: 05/04/20 15:15 Freq: Status: Active Protocol: Document 02/02/21 11:15 DCW (Rec: 02/02/21 11:56 DCW [id number]) Functional Tests 6 Minute Walk Test Distance 1374 Device Used none Comments 3.82 ft/sec Timed Up and Go (TUG) Score 8.2 seconds Comments 3-trial average (8.58, 8.35, 7 .67) TUG Impairment Rating 0% Impaired (Score 10) PT-OP-G Mobility & Gait Start: 09/17/19 18:00 Freq: Status: Active Protocol: Document 02/02/21 11:15 DCW (Rec: 02/02/21 11:56 DCW [id number]) OP Gait Assessment Gait Gait Assistance Required: Standby Assistance Distance (Feet) 1,374 Assistive Devices Assistive Device None Gait Deviations General Gait Pattern Antalgic,Ataxic,Flexed Trunk Factors Limiting Gait Function Factors Limiting Gait Function Abnormal Tonal Influences, Decreased Activity Tolerance, Decreased Sensation,Decreased Strength Stair Climbing Evaluation Evaluation Level of Assist On Stairs Standby Assistance Devices Stair Climbing Assistive Devices Right Railing Technique/Endurance Stair Climbing Direction Ascend and Descend Stair Climbing Technique Step Over Step Number of Steps Climbed 4 PT-OP-H Neuro Start: 09/17/19 18:00 Freq: Status: Active Protocol: Document 02/02/21 11:15 DCW (Rec: 02/02/21 11:56 DCW [id number]) Deep Tendon Reflex & Clonus Assessment Deep Tendon Reflex Left Achilles Deep Tendon Reflex 4+ Brisk Left Patellar Deep Tendon Reflex 3+ Normal But Brisk Ankle Clonus Left Clonus Assessment Sustained Muscle Tone Tone Assessment Left Lower Extremity Flexor Tone Description Mild Hypotonicity PT-OP-M Strength Start: 09/17/19 18:00 Freq: Status: Active Protocol: Document 02/02/21 11:15 DCW (Rec: 02/02/21 11:56 DCW [id number]) Hip Strength Hip Manual Muscle Testing Left Flexion (L2) 4 Good Extension (S1) 5 Normal Abduction 4 Good Adduction 4+ Good+ External Rotation 4 Good Internal Rotation 4 Good Knee Strength Knee Manual Muscle Testing Left Flexion (S2) 4 Good Extension (L3) 5 Normal Ankle/Foot Strength Ankle and Foot Manual Muscle Testing Left Dorsiflexion (L4) 4 Good Plantarflexion (S1) 4 Good Inversion 4- Good- Eversion (S1) 3 Fair PT-OP-Q Treatments Start: 09/17/19 18:00 Freq: Status: Active Protocol: Document 04/11/21 11:15 DCW (Rec: 04/11/21 12:00 DCW [id number]) Cardio Equipment Treadmill Duration (Minutes) 10 Speed 2.0-2.6 Incline 0 Other 0.38 miles Gym Equipment Shuttle Recovery Unilateral Heel Raises Details Left Resistance 25# Reps/Time calf stretch at end Unilateral Squats Details Left Resistance 62# Shuttle Recovery Platform Stable Bilateral Squats Resistance 100# Shuttle Recovery Platform Stable Reps/Time x50 Shuttle Balance Red Details Wide [id number], Staggered Comments Min Ax1 Neuro Re-Education Treatment Balance Activities Hurdles Details Hurdles Comments Min Ax1 PT-OP-R Modalities Start: 09/17/19 18:00 Freq: Status: Active Protocol: Document 04/11/21 11:15 DCW (Rec: 04/11/21 12:00 DCW [id number]) Electric Stimulation Electric Stimulation Interferential Current (IFC) Body Location L ant ankle Duration (Minutes) 15 Patient Position Sitting Combined With Heat/Cold Cold Pack PT-OP-S Aquatic Treatment Start: 09/17/19 18:00 Freq: Status: Active Protocol: Document 01/30/20 12:30 LJ (Rec: 01/30/20 14:54 LJ [id number]) Aquatics Treatment Pool Entry/Exit Pool Entry/Exit Method Lift Assistance Minimal Assistance Water Walking Slow motion Water Level Chest Level Walking Equipment wet vest, UE float, #2.5 ankle wt Level of Assistance Standby Assistance,Contact Guard Assistance,Moderate Assistance Comments emphasis on LLE extension stance phase January Water Level Chest Level Walking Equipment wet vest, UE float, #2.5 ankle wt Level of Assistance Standby Assistance,Contact Guard Assistance,Moderate Assistance,Verbal Cues Forward with emphasis on reciprocal gait pattern Water Level Chest Level Level of Assistance Standby Assistance,Contact Guard Assistance,Minimal Assistance,Verbal Cues Comments wetvest, sm float on LUE, #3. 75 ankle wt on LLE start stop walking forward and backward Water Level Chest Level Walking Equipment vest Level of Assistance Contact Guard Assistance, Verbal Cues Comments wetvest, sm float on LUE, #3. 75 ankle wt on LLE Sideways Water Level Chest Level Walking Equipment wet vest, UE float, #2.5 ankle wt Level of Assistance Standby Assistance,Contact Guard Assistance,Minimal Assistance,Verbal Cues Lower Extremity Exercises SL aquats Details HH on wall Body Position Standing Water Level Waist Level Equipment wetvest Reps/Duration 2x10 LLE Comments VC to extend knee knee extensions Details seated in lift chair Equipment Ankle Weight- 5.0# Reps/Duration 20 B Comments seated in lift SLS Details bracing LLE Body Position Standing Water Level Chest Level Equipment vest Reps/Duration 1 min marching at wall Water Level Chest Level Reps/Duration 2 min Comments opposite UE/LE tapping wall squats Body Position Standing Water Level Chest Level Reps/Duration 20x Lower Extremity Stretches adductors Comments seated in chair Gastroc Body Position Sitting Reps/Duration 2 x 45 sec B Comments manual assist hip flexors Details at wall Body Position Standing Water Level Waist Level Reps/Duration 2x45 Comments manually assisted HS Details at wall Body Position Sitting Water Level Waist Level Equipment wet vest Reps/Duration 2x45 Comments sitting in lift chair assisted Upper Extremity Exercises breastroke UE's Body Position Standing Water Level Chest Level Reps/Duration 3 min Comments during walking and deep water hor ab/ad Water Level Chest Level Comments during side walking, CGA Balance step ups Details step ups/down using boxes Body Position Standing Water Level Waist Level Equipment 8 boxes Comments mod verbal cues for coordination [place] Activities [place] Activities Bicycle,Cross Country Equipment wet vest, white noodle Duration 7 min Comments Guy and cues for vertical alignmernt. PT-OP-T Assessment and Plan Start: 09/17/19 18:00 Freq: Status: Active Protocol: Document 04/11/21 11:15 DCW (Rec: 04/11/21 12:00 DCW [id number]) Physical Therapy Assessment Impairments Impairments Activity Tolerance,Balance, Coordination,Functional Activities,Functional Mobility ,Gait,Pain,ROM,Sensation, Strength,Tone,Transfers Goals Six Impairment Decreased Static Balance Short Term Goal (STG) Pt to score <9 seconds on TUG STG Duration Met Longterm Goal (LTG) MET - Pt to score 35/56 or better on the Adler Balance MET - Pt to score 45/56 or better on the Adler Balance Scale NEW GOAL: Pt to score 53/56 on Adler Balance Scale LTG Duration 05/05/21 Five Impairment Pt uses R rail and step-over gait pattern ascending stairs Nipple Threader Goal (LTG) Pt to ascend/descend stairs independently without use of rail LTG Duration 05/05/21 - Improving Four Impairment Pt demonstrates strength impairment throughout left LE Nipple Threader Goal (LTG) Pt to display MMT >3+/5 through L LE LTG Duration 05/05/21 - Met /c all but inversion Three Impairment Pt SBA for transfers and bed mobility d/t Left Neglect Nipple Threader Goal (LTG) Pt to demonstrate independent transfers and bed mobility with an ability to address left LE and UE 80% of the time LTG Duration Met Two Impairment Pt ambulates 280' CGA /s an AD Short Term Goal (STG) Pt to ambulate 400' SBA independently STG Duration Met Longterm Goal (LTG) Pt to ambulate 800' during 6 MWT Independently without SBA LTG Duration 05/05/21 - Improving (1374' SBA ) One Impairment Pt does not have an appropriate home exercise program Short Term Goal (STG) Pt to be independent and compliant with an appropriate HEP STG Duration Met Assessment Summary Assessment Pt continues to progress with hurdles, increased speed and distance on treadmill. Improved weight-shift onto left side, but still needs verbal reminders. Physical Therapy Plan Frequency and Duration Frequency of Treatment 2x/Week Duration of Treatment 3 months Plan of Care Start Date 02/02/21 Plan of Care End Date 05/05/21 Therapeutic Interventions Therapeutic Interventions Aquatic Therapy,Balance Training,Coordination Training ,Gait Training,Home Exercise Program,Manual Therapy, Neuromuscular Re-education, Patient/Caregiver Education, Self-Care/Home Management, Therapeutic Activities, Therapeutic Exercises Modalities Cold Pack/Ice Massage,Electric Stimulation,Hot Packs, Ultrasound Next Visit Focus/Plan Next Note Type Treatment Note Next Visit Plan SLS, visual scanning, increased activity tolerance
--- NOTE | 2021-04-13 11:58 | PT.OTN ---
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) Physical Therapy Treatment Note PT-OP-A Visit Information Start: 09/17/19 18:00 Freq: Status: Active Protocol: Document 04/13/21 11:16 DCW (Rec: 04/13/21 11:58 DCW [id number]) Out-Patient Physical Therapy Visit Information Visit Information Visit Type Treatment Note Visit Start Time 11:16 Visit Stop Time 12:10 Total Visit Minutes 54 Visit Number 115 Number of MOBILE THERAPIST Visits 0 Evaluation Information Evaluation Date 09/17/19 PT-OP-B Current Condition Start: 09/17/19 18:00 Freq: Status: Active Protocol: Document 09/17/19 12:00 DCW (Rec: 09/18/19 10:29 DCW [id number]) Current Condition History of Current Condition Onset Date 04/14/19 Current Complaints Hemiparesis secondary to CVA History of Current Condition Pt is a 69 year old male presenting to skilled outpatient physical therapy with left-side neglect, hemiparesis, loss of independence, and difficulty walking following an intraparenchymal hemorrhage on 04/14/19. Pt was transferred from [facility] to [facility], where a craniotomy was performed on 04/16/19. Pt completed 7 weeks of rehab/ recovery at [facility], and then underwent a second surgery on 06/26/19 to replace the skull fragment. Pt was then at an acute rehab facility 06/30-07/18/19, and since then has been receiving home health physical therapy. Pt presents today with limited left-sided function, left visual and physical neglect, difficulty with transfers, decreased activity tolerance, decreased gait, and many other secondary effects following his CVA. Pt has been working on ambulation with a vale walker with home health, and his states he has walked around 100' a few times, but always with a therapist, as she does not feel comfortable walking with him yet. Pt exclusively gets around at time of evaluation in a manual wheelchair. Pt's transfers have been going fairly well, with his caregivers performing CGA, however pt will occasionally need assistance with placement of his left UE and LE due to neglect. Pt's biggest complaint at the moment is leg pain, his reports they have tried PT, Massage, CBD il, Tylenol, Oxycodine, and Gabapentin, all with minimal benefit. Prior to CVA, pt was fully independent in all activities. Pt and have garegivers 8 hrs a day for assistance. Prior Treatments and Tests Craniotomy 04/16/19, Acute rehab, Skull fragment replacement 06/26/19, home health PT Prior Functional Status Baseline Function- ADL's Independent Baseline Function- Mobility Independent PT-OP-C Subjective Start: 09/17/19 18:00 Freq: Status: Active Protocol: Document 04/13/21 11:16 DCW (Rec: 04/13/21 11:58 DCW [id number]) OP-PT Subjective Patient Comments Patient Comments Pt feeling pretty good today, but my head is very stuffy. PT-OP-D Balance Start: 08/04/20 14:14 Freq: Status: Active Protocol: Document 02/02/21 11:15 DCW (Rec: 02/02/21 11:56 DCW [id number]) Balance Tests Adler Balance Test Adler Balance Test Score 49/56 Alder Impairment Rating 1 to 19% Impaired (Score 45-55 ) Adler Balance Assessment Evaluation Sitting to Standing Ability Independent w/out Hands Unsupported Stance Safely- 2 minutes Sitting Unsupported, Feet on Floor Safely- 2 minutes Standing to Sitting Ability Safely, Minimal Hand Use Transfer Ability Safely, Minimal Hand Use Unsupported Stance- Eyes Closed Safely, 10 seconds Unsupported Stance- Eyes Open Independent, 1 minute Reaching Forward Standing Confidently, 10 inches Pick- Up Object From Floor Independent/Safe Look Behind Shoulder - Standing Shifts Weight Well Turning 360 Degrees Turns , < 4 secs Unsupported Stance, Alternating Feet on 4 Steps w/Supervision Stair Unsupported Tandem Stance Holds Tandem- 30 seconds Unilateral Leg Stance Lifts Leg/Unable to Hold Total Score Adler Total Score (out of 56 points) 49 Adler Impairment Rating 1 to 19% Impaired (Score 45-55 ) PT-OP-E Functional Tests Start: 05/04/20 15:15 Freq: Status: Active Protocol: Document 02/02/21 11:15 DCW (Rec: 02/02/21 11:56 DCW [id number]) Functional Tests 6 Minute Walk Test Distance 1374 Device Used none Comments 3.82 ft/sec Timed Up and Go (TUG) Score 8.2 seconds Comments 3-trial average (8.58, 8.35, 7 .67) TUG Impairment Rating 0% Impaired (Score 10) PT-OP-G Mobility & Gait Start: 09/17/19 18:00 Freq: Status: Active Protocol: Document 02/02/21 11:15 DCW (Rec: 02/02/21 11:56 DCW [id number]) OP Gait Assessment Gait Gait Assistance Required: Standby Assistance Distance (Feet) 1,374 Assistive Devices Assistive Device None Gait Deviations General Gait Pattern Antalgic,Ataxic,Flexed Trunk Factors Limiting Gait Function Factors Limiting Gait Function Abnormal Tonal Influences, Decreased Activity Tolerance, Decreased Sensation,Decreased Strength Stair Climbing Evaluation Evaluation Level of Assist On Stairs Standby Assistance Devices Stair Climbing Assistive Devices Right Railing Technique/Endurance Stair Climbing Direction Ascend and Descend Stair Climbing Technique Step Over Step Number of Steps Climbed 4 PT-OP-H Neuro Start: 09/17/19 18:00 Freq: Status: Active Protocol: Document 02/02/21 11:15 DCW (Rec: 02/02/21 11:56 DCW [id number]) Deep Tendon Reflex & Clonus Assessment Deep Tendon Reflex Left Achilles Deep Tendon Reflex 4+ Brisk Left Patellar Deep Tendon Reflex 3+ Normal But Brisk Ankle Clonus Left Clonus Assessment Sustained Muscle Tone Tone Assessment Left Lower Extremity Flexor Tone Description Mild Hypotonicity PT-OP-M Strength Start: 09/17/19 18:00 Freq: Status: Active Protocol: Document 02/02/21 11:15 DCW (Rec: 02/02/21 11:56 DCW [id number]) Hip Strength Hip Manual Muscle Testing Left Flexion (L2) 4 Good Extension (S1) 5 Normal Abduction 4 Good Adduction 4+ Good+ External Rotation 4 Good Internal Rotation 4 Good Knee Strength Knee Manual Muscle Testing Left Flexion (S2) 4 Good Extension (L3) 5 Normal Ankle/Foot Strength Ankle and Foot Manual Muscle Testing Left Dorsiflexion (L4) 4 Good Plantarflexion (S1) 4 Good Inversion 4- Good- Eversion (S1) 3 Fair PT-OP-Q Treatments Start: 09/17/19 18:00 Freq: Status: Active Protocol: Document 04/13/21 11:16 DCW (Rec: 04/13/21 11:58 DCW [id number]) Gym Equipment Shuttle Recovery Unilateral Heel Raises Details Left Resistance 25# Reps/Time calf stretch at end Unilateral Squats Details Left Resistance 62# Shuttle Recovery Platform Stable Bilateral Squats Resistance 100# Shuttle Recovery Platform Stable Reps/Time x50 Shuttle Balance Red Details Wide SRIDEVI, Staggered Comments Min Ax1 Gait Training Gait Activity No AD Description No AD Device Used None Level of Assistance SBA Distance/Duration 950' x1 Comments VCs to promote heel-toe gait, extend left knee during stance phase Neuro Re-Education Treatment Balance Activities Hurdles Details Hurdles Comments Min Ax1 Cone transfers Details Bending down ball pick-up from cone, kick cone over, ball toss to target PT-OP-R Modalities Start: 09/17/19 18:00 Freq: Status: Active Protocol: Document 04/13/21 11:16 DCW (Rec: 04/13/21 11:58 DCW [id number]) Electric Stimulation Electric Stimulation Interferential Current (IFC) Body Location L ant ankle Duration (Minutes) 15 Patient Position Sitting Combined With Heat/Cold Cold Pack PT-OP-S Aquatic Treatment Start: 09/17/19 18:00 Freq: Status: Active Protocol: Document 01/30/20 12:30 LJ (Rec: 01/30/20 14:54 LJ [id number]) Aquatics Treatment Pool Entry/Exit Pool Entry/Exit Method Lift Assistance Minimal Assistance Water Walking Slow motion Water Level Chest Level Walking Equipment wet vest, UE float, #2.5 ankle wt Level of Assistance Standby Assistance,Contact Guard Assistance,Moderate Assistance Comments emphasis on LLE extension stance phase January Water Level Chest Level Walking Equipment wet vest, UE float, #2.5 ankle wt Level of Assistance Standby Assistance,Contact Guard Assistance,Moderate Assistance,Verbal Cues Forward with emphasis on reciprocal gait pattern Water Level Chest Level Level of Assistance Standby Assistance,Contact Guard Assistance,Minimal Assistance,Verbal Cues Comments wetvest, sm float on LUE, #3. 75 ankle wt on LLE start stop walking forward and backward Water Level Chest Level Walking Equipment vest Level of Assistance Contact Guard Assistance, Verbal Cues Comments wetvest, sm float on LUE, #3. 75 ankle wt on LLE Sideways Water Level Chest Level Walking Equipment wet vest, UE float, #2.5 ankle wt Level of Assistance Standby Assistance,Contact Guard Assistance,Minimal Assistance,Verbal Cues Lower Extremity Exercises SL aquats Details HH on wall Body Position Standing Water Level Waist Level Equipment wetvest Reps/Duration 2x10 LLE Comments VC to extend knee knee extensions Details seated in lift chair Equipment Ankle Weight- 5.0# Reps/Duration 20 B Comments seated in lift SLS Details bracing LLE Body Position Standing Water Level Chest Level Equipment vest Reps/Duration 1 min marching at wall Water Level Chest Level Reps/Duration 2 min Comments opposite UE/LE tapping wall squats Body Position Standing Water Level Chest Level Reps/Duration 20x Lower Extremity Stretches adductors Comments seated in chair Gastroc Body Position Sitting Reps/Duration 2 x 45 sec B Comments manual assist hip flexors Details at wall Body Position Standing Water Level Waist Level Reps/Duration 2x45 Comments manually assisted HS Details at wall Body Position Sitting Water Level Waist Level Equipment wet vest Reps/Duration 2x45 Comments sitting in lift chair assisted Upper Extremity Exercises breastroke UE's Body Position Standing Water Level Chest Level Reps/Duration 3 min Comments during walking and deep water hor ab/ad Water Level Chest Level Comments during side walking, CGA Balance step ups Details step ups/down using boxes Body Position Standing Water Level Waist Level Equipment 8 boxes Comments mod verbal cues for coordination [place] Activities [place] Activities Bicycle,Cross Country Equipment wet vest, white noodle Duration 7 min Comments Guy and cues for vertical alignmernt. PT-OP-T Assessment and Plan Start: 09/17/19 18:00 Freq: Status: Active Protocol: Document 04/13/21 11:16 DCW (Rec: 04/13/21 11:58 DCW [id number]) Physical Therapy Assessment Impairments Impairments Activity Tolerance,Balance, Coordination,Functional Activities,Functional Mobility ,Gait,Pain,ROM,Sensation, Strength,Tone,Transfers Goals Six Impairment Decreased Static Balance Short Term Goal (STG) Pt to score <9 seconds on TUG STG Duration Met Group Home Goal (LTG) MET - Pt to score 35/56 or better on the Adler Balance MET - Pt to score 45/56 or better on the Adler Balance Scale NEW GOAL: Pt to score 53/56 on Adler Balance Scale LTG Duration 05/05/21 Five Impairment Pt uses R rail and step-over gait pattern ascending stairs Group Home Goal (LTG) Pt to ascend/descend stairs independently without use of rail LTG Duration 05/05/21 - Improving Four Impairment Pt demonstrates strength impairment throughout left LE Group Home Goal (LTG) Pt to display MMT >3+/5 through L LE LTG Duration 05/05/21 - Met /c all but inversion Three Impairment Pt SBA for transfers and bed mobility d/t Left Neglect Customer Business Manager Goal (LTG) Pt to demonstrate independent transfers and bed mobility with an ability to address left LE and UE 80% of the time LTG Duration Met Two Impairment Pt ambulates 280' CGA /s an AD Short Term Goal (STG) Pt to ambulate 400' SBA independently STG Duration Met Group Home Goal (LTG) Pt to ambulate 800' during 6 MWT Independently without SBA LTG Duration 05/05/21 - Improving (1374' SBA ) One Impairment Pt does not have an appropriate home exercise program Short Term Goal (STG) Pt to be independent and compliant with an appropriate HEP STG Duration Met Assessment Summary Assessment Pt doing very well today, did have a very mild LOB when first starting ambulation, however was able to self correct and then did well the rest of his session. Physical Therapy Plan Frequency and Duration Frequency of Treatment 2x/Week Duration of Treatment 3 months Plan of Care Start Date 02/02/21 Plan of Care End Date 05/05/21 Therapeutic Interventions Therapeutic Interventions Aquatic Therapy,Balance Training,Coordination Training ,Gait Training,Home Exercise Program,Manual Therapy, Neuromuscular Re-education, Patient/Caregiver Education, Self-Care/Home Management, Therapeutic Activities, Therapeutic Exercises Modalities Cold Pack/Ice Massage,Electric Stimulation,Hot Packs, Ultrasound Next Visit Focus/Plan Next Note Type Treatment Note Next Visit Plan SLS, visual scanning, increased activity tolerance
--- NOTE | 2021-04-19 12:03 | PT.OTN ---
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) Physical Therapy Treatment Note PT-OP-A Visit Information Start: 09/17/19 18:00 Freq: Status: Active Protocol: Document 04/19/21 11:17 DCW (Rec: 04/19/21 12:02 DCW [id number]) Out-Patient Physical Therapy Visit Information Visit Information Visit Type Treatment Note Visit Start Time 11:17 Visit Stop Time 12:00 Total Visit Minutes 53 Visit Number 116 Number of COMMUNITY PROGRAM ASSISTANT Visits 0 Evaluation Information Evaluation Date 09/17/19 PT-OP-B Current Condition Start: 09/17/19 18:00 Freq: Status: Active Protocol: Document 09/17/19 12:00 DCW (Rec: 09/18/19 10:29 DCW [id number]) Current Condition History of Current Condition Onset Date 04/14/19 Current Complaints Hemiparesis secondary to CVA History of Current Condition Pt is a 69 year old male presenting to skilled outpatient physical therapy with left-side neglect, hemiparesis, loss of independence, and difficulty walking following an intraparenchymal hemorrhage on 04/14/19. Pt was transferred from [facility] to [facility], where a craniotomy was performed on 04/16/19. Pt completed 7 weeks of rehab/ recovery at [facility], and then underwent a second surgery on 06/26/19 to replace the skull fragment. Pt was then at an acute rehab facility 06/30-07/18/19, and since then has been receiving home health physical therapy. Pt presents today with limited left-sided function, left visual and physical neglect, difficulty with transfers, decreased activity tolerance, decreased gait, and many other secondary effects following his CVA. Pt has been working on ambulation with a vale walker with home health, and his states he has walked around 100' a few times, but always with a therapist, as she does not feel comfortable walking with him yet. Pt exclusively gets around at time of evaluation in a manual wheelchair. Pt's transfers have been going fairly well, with his caregivers performing CGA, however pt will occasionally need assistance with placement of his left UE and LE due to neglect. Pt's biggest complaint at the moment is leg pain, his reports they have tried PT, Massage, CBD il, Tylenol, Oxycodine, and Gabapentin, all with minimal benefit. Prior to CVA, pt was fully independent in all activities. Pt and have garegivers 8 hrs a day for assistance. Prior Treatments and Tests Craniotomy 04/16/19, Acute rehab, Skull fragment replacement 06/26/19, home health PT Prior Functional Status Baseline Function- ADL's Independent Baseline Function- Mobility Independent PT-OP-C Subjective Start: 09/17/19 18:00 Freq: Status: Active Protocol: Document 04/19/21 11:17 DCW (Rec: 04/19/21 12:02 DCW [id number]) OP-PT Subjective Patient Comments Patient Comments Pt notes he is doing well today. PT-OP-D Balance Start: 08/04/20 14:14 Freq: Status: Active Protocol: Document 02/02/21 11:15 DCW (Rec: 02/02/21 11:56 DCW [id number]) Balance Tests Adler Balance Test Adler Balance Test Score 49/56 Adler Impairment Rating 1 to 19% Impaired (Score 45-55 ) Adler Balance Assessment Evaluation Sitting to Standing Ability Independent w/out Hands Unsupported Stance Safely- 2 minutes Sitting Unsupported, Feet on Floor Safely- 2 minutes Standing to Sitting Ability Safely, Minimal Hand Use Transfer Ability Safely, Minimal Hand Use Unsupported Stance- Eyes Closed Safely, 10 seconds Unsupported Stance- Eyes Open Independent, 1 minute Reaching Forward Standing Confidently, 10 inches Pick- Up Object From Floor Independent/Safe Look Behind Shoulder - Standing Shifts Weight Well Turning 360 Degrees Turns , < 4 secs Unsupported Stance, Alternating Feet on 4 Steps w/Supervision Stair Unsupported Tandem Stance Holds Tandem- 30 seconds Unilateral Leg Stance Lifts Leg/Unable to Hold Total Score Daler Total Score (out of 56 points) 49 Adler Impairment Rating 1 to 19% Impaired (Score 45-55 ) PT-OP-E Functional Tests Start: 05/04/20 15:15 Freq: Status: Active Protocol: Document 02/02/21 11:15 DCW (Rec: 02/02/21 11:56 DCW [id number]) Functional Tests 6 Minute Walk Test Distance 1374 Device Used none Comments 3.82 ft/sec Timed Up and Go (TUG) Score 8.2 seconds Comments 3-trial average (8.58, 8.35, 7 .67) TUG Impairment Rating 0% Impaired (Score 10) PT-OP-G Mobility & Gait Start: 09/17/19 18:00 Freq: Status: Active Protocol: Document 02/02/21 11:15 DCW (Rec: 02/02/21 11:56 DCW [id number]) OP Gait Assessment Gait Gait Assistance Required: Standby Assistance Distance (Feet) 1,374 Assistive Devices Assistive Device None Gait Deviations General Gait Pattern Antalgic,Ataxic,Flexed Trunk Factors Limiting Gait Function Factors Limiting Gait Function Abnormal Tonal Influences, Decreased Activity Tolerance, Decreased Sensation,Decreased Strength Stair Climbing Evaluation Evaluation Level of Assist On Stairs Standby Assistance Devices Stair Climbing Assistive Devices Right Railing Technique/Endurance Stair Climbing Direction Ascend and Descend Stair Climbing Technique Step Over Step Number of Steps Climbed 4 PT-OP-H Neuro Start: 09/17/19 18:00 Freq: Status: Active Protocol: Document 02/02/21 11:15 DCW (Rec: 02/02/21 11:56 DCW [id number]) Deep Tendon Reflex & Clonus Assessment Deep Tendon Reflex Left Achilles Deep Tendon Reflex 4+ Brisk Left Patellar Deep Tendon Reflex 3+ Normal But Brisk Ankle Clonus Left Clonus Assessment Sustained Muscle Tone Tone Assessment Left Lower Extremity Flexor Tone Description Mild Hypotonicity PT-OP-M Strength Start: 09/17/19 18:00 Freq: Status: Active Protocol: Document 02/02/21 11:15 DCW (Rec: 02/02/21 11:56 DCW [id number]) Hip Strength Hip Manual Muscle Testing Left Flexion (L2) 4 Good Extension (S1) 5 Normal Abduction 4 Good Adduction 4+ Good+ External Rotation 4 Good Internal Rotation 4 Good Knee Strength Knee Manual Muscle Testing Left Flexion (S2) 4 Good Extension (L3) 5 Normal Ankle/Foot Strength Ankle and Foot Manual Muscle Testing Left Dorsiflexion (L4) 4 Good Plantarflexion (S1) 4 Good Inversion 4- Good- Eversion (S1) 3 Fair PT-OP-Q Treatments Start: 09/17/19 18:00 Freq: Status: Active Protocol: Document 04/19/21 11:17 DCW (Rec: 04/19/21 12:02 DCW [id number]) Gym Equipment Shuttle Recovery Unilateral Heel Raises Details Left Resistance 25# Reps/Time calf stretch at end Unilateral Squats Details Left Resistance 62# Shuttle Recovery Platform Stable Bilateral Squats Resistance 100# Shuttle Recovery Platform Stable Reps/Time x50 Shuttle Balance Red Details Wide SRIDEVI, Staggered Comments Min Ax1 Gait Training Gait Activity No AD Description No AD Device Used None Level of Assistance SBA Distance/Duration 950' x1 Comments VCs to promote heel-toe gait, extend left knee during stance phase Neuro Re-Education Treatment Balance Activities Hurdles Details Hurdles Comments Min Ax1 Cone transfers Details Bending down ball pick-up from cone, kick cone over, ball toss to target PT-OP-R Modalities Start: 09/17/19 18:00 Freq: Status: Active Protocol: Document 04/19/21 11:17 DCW (Rec: 04/19/21 12:02 DCW [id number]) Electric Stimulation Electric Stimulation Interferential Current (IFC) Body Location L ant ankle Duration (Minutes) 15 Patient Position Sitting Combined With Heat/Cold Cold Pack PT-OP-S Aquatic Treatment Start: 09/17/19 18:00 Freq: Status: Active Protocol: Document 01/30/20 12:30 LJ (Rec: 01/30/20 14:54 LJ [id number]) Aquatics Treatment Pool Entry/Exit Pool Entry/Exit Method Lift Assistance Minimal Assistance Water Walking Slow motion Water Level Chest Level Walking Equipment wet vest, UE float, #2.5 ankle wt Level of Assistance Standby Assistance,Contact Guard Assistance,Moderate Assistance Comments emphasis on LLE extension stance phase January Water Level Chest Level Walking Equipment wet vest, UE float, #2.5 ankle wt Level of Assistance Standby Assistance,Contact Guard Assistance,Moderate Assistance,Verbal Cues Forward with emphasis on reciprocal gait pattern Water Level Chest Level Level of Assistance Standby Assistance,Contact Guard Assistance,Minimal Assistance,Verbal Cues Comments wetvest, sm float on LUE, #3. 75 ankle wt on LLE start stop walking forward and backward Water Level Chest Level Walking Equipment vest Level of Assistance Contact Guard Assistance, Verbal Cues Comments wetvest, sm float on LUE, #3. 75 ankle wt on LLE Sideways Water Level Chest Level Walking Equipment wet vest, UE float, #2.5 ankle wt Level of Assistance Standby Assistance,Contact Guard Assistance,Minimal Assistance,Verbal Cues Lower Extremity Exercises SL aquats Details HH on wall Body Position Standing Water Level Waist Level Equipment wetvest Reps/Duration 2x10 LLE Comments VC to extend knee knee extensions Details seated in lift chair Equipment Ankle Weight- 5.0# Reps/Duration 20 B Comments seated in lift SLS Details bracing LLE Body Position Standing Water Level Chest Level Equipment vest Reps/Duration 1 min marching at wall Water Level Chest Level Reps/Duration 2 min Comments opposite UE/LE tapping wall squats Body Position Standing Water Level Chest Level Reps/Duration 20x Lower Extremity Stretches adductors Comments seated in chair Gastroc Body Position Sitting Reps/Duration 2 x 45 sec B Comments manual assist hip flexors Details at wall Body Position Standing Water Level Waist Level Reps/Duration 2x45 Comments manually assisted HS Details at wall Body Position Sitting Water Level Waist Level Equipment wet vest Reps/Duration 2x45 Comments sitting in lift chair assisted Upper Extremity Exercises breastroke UE's Body Position Standing Water Level Chest Level Reps/Duration 3 min Comments during walking and deep water hor ab/ad Water Level Chest Level Comments during side walking, CGA Balance step ups Details step ups/down using boxes Body Position Standing Water Level Waist Level Equipment 8 boxes Comments mod verbal cues for coordination [place] Activities [place] Activities Bicycle,Cross Country Equipment wet vest, white noodle Duration 7 min Comments Guy and cues for vertical alignmernt. PT-OP-T Assessment and Plan Start: 09/17/19 18:00 Freq: Status: Active Protocol: Document 04/19/21 11:17 DCW (Rec: 04/19/21 12:02 DCW [id number]) Physical Therapy Assessment Impairments Impairments Activity Tolerance,Balance, Coordination,Functional Activities,Functional Mobility ,Gait,Pain,ROM,Sensation, Strength,Tone,Transfers Goals Six Impairment Decreased Static Balance Short Term Goal (STG) Pt to score <9 seconds on TUG STG Duration Met Mcfp Goal (LTG) MET - Pt to score 35/56 or better on the Adler Balance MET - Pt to score 45/56 or better on the Adler Balance Scale NEW GOAL: Pt to score 53/56 on Adler Balance Scale LTG Duration 05/05/21 Five Impairment Pt uses R rail and step-over gait pattern ascending stairs Mcfp Goal (LTG) Pt to ascend/descend stairs independently without use of rail LTG Duration 05/05/21 - Improving Four Impairment Pt demonstrates strength impairment throughout left LE Embedded Software Manager Goal (LTG) Pt to display MMT >3+/5 through L LE LTG Duration 05/05/21 - Met /c all but inversion Three Impairment Pt SBA for transfers and bed mobility d/t Left Neglect Mcfp Goal (LTG) Pt to demonstrate independent transfers and bed mobility with an ability to address left LE and UE 80% of the time LTG Duration Met Two Impairment Pt ambulates 280' CGA /s an AD Short Term Goal (STG) Pt to ambulate 400' SBA independently STG Duration Met Mcfp Goal (LTG) Pt to ambulate 800' during 6 MWT Independently without SBA LTG Duration 05/05/21 - Improving (1374' SBA ) One Impairment Pt does not have an appropriate home exercise program Short Term Goal (STG) Pt to be independent and compliant with an appropriate HEP STG Duration Met Assessment Summary Assessment Pt did very well on hurdles today, showing improved ability to increase left foot clearance, also getting better at bringing himself back to midline when leaning too far to the right. Physical Therapy Plan Frequency and Duration Frequency of Treatment 2x/Week Duration of Treatment 3 months Plan of Care Start Date 02/02/21 Plan of Care End Date 05/05/21 Therapeutic Interventions Therapeutic Interventions Aquatic Therapy,Balance Training,Coordination Training ,Gait Training,Home Exercise Program,Manual Therapy, Neuromuscular Re-education, Patient/Caregiver Education, Self-Care/Home Management, Therapeutic Activities, Therapeutic Exercises Modalities Cold Pack/Ice Massage,Electric Stimulation,Hot Packs, Ultrasound Next Visit Focus/Plan Next Note Type Treatment Note Next Visit Plan SLS, visual scanning, increased activity tolerance
--- NOTE | 2021-04-21 12:04 | PT.OTN ---
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) Physical Therapy Treatment Note PT-OP-A Visit Information Start: 09/17/19 18:00 Freq: Status: Active Protocol: Document 04/21/21 11:20 DCW (Rec: 04/21/21 12:03 DCW [id number]) Out-Patient Physical Therapy Visit Information Visit Information Visit Type Treatment Note Visit Start Time 11:20 Visit Stop Time 12:15 Total Visit Minutes 55 Visit Number 117 Number of ECOLOGY TEACHER Visits 0 Evaluation Information Evaluation Date 09/17/19 PT-OP-B Current Condition Start: 09/17/19 18:00 Freq: Status: Active Protocol: Document 09/17/19 12:00 DCW (Rec: 09/18/19 10:29 DCW [id number]) Current Condition History of Current Condition Onset Date 04/14/19 Current Complaints Hemiparesis secondary to CVA History of Current Condition Pt is a 69 year old male presenting to skilled outpatient physical therapy with left-side neglect, hemiparesis, loss of independence, and difficulty walking following an intraparenchymal hemorrhage on 04/14/19. Pt was transferred from [facility] to [facility], where a craniotomy was performed on 04/16/19. Pt completed 7 weeks of rehab/ recovery at [facility], and then underwent a second surgery on 06/26/19 to replace the skull fragment. Pt was then at an acute rehab facility 06/30-07/18/19, and since then has been receiving home health physical therapy. Pt presents today with limited left-sided function, left visual and physical neglect, difficulty with transfers, decreased activity tolerance, decreased gait, and many other secondary effects following his CVA. Pt has been working on ambulation with a vale walker with home health, and his states he has walked around 100' a few times, but always with a therapist, as she does not feel comfortable walking with him yet. Pt exclusively gets around at time of evaluation in a manual wheelchair. Pt's transfers have been going fairly well, with his caregivers performing CGA, however pt will occasionally need assistance with placement of his left UE and LE due to neglect. Pt's biggest complaint at the moment is leg pain, his reports they have tried PT, Massage, CBD il, Tylenol, Oxycodine, and Gabapentin, all with minimal benefit. Prior to CVA, pt was fully independent in all activities. Pt and have garegivers 8 hrs a day for assistance. Prior Treatments and Tests Craniotomy 04/16/19, Acute rehab, Skull fragment replacement 06/26/19, home health PT Prior Functional Status Baseline Function- ADL's Independent Baseline Function- Mobility Independent PT-OP-C Subjective Start: 09/17/19 18:00 Freq: Status: Active Protocol: Document 04/21/21 11:20 DCW (Rec: 04/21/21 12:03 DCW [id number]) OP-PT Subjective Patient Comments Patient Comments My nose is stuffed, my head is stuffed, I'm stiff, it's a rough day. PT-OP-D Balance Start: 08/04/20 14:14 Freq: Status: Active Protocol: Document 02/02/21 11:15 DCW (Rec: 02/02/21 11:56 DCW [id number]) Balance Tests Adler Balance Test Adler Balance Test Score 49/56 Adler Impairment Rating 1 to 19% Impaired (Score 45-55 ) Adler Balance Assessment Evaluation Sitting to Standing Ability Independent w/out Hands Unsupported Stance Safely- 2 minutes Sitting Unsupported, Feet on Floor Safely- 2 minutes Standing to Sitting Ability Safely, Minimal Hand Use Transfer Ability Safely, Minimal Hand Use Unsupported Stance- Eyes Closed Safely, 10 seconds Unsupported Stance- Eyes Open Independent, 1 minute Reaching Forward Standing Confidently, 10 inches Pick- Up Object From Floor Independent/Safe Look Behind Shoulder - Standing Shifts Weight Well Turning 360 Degrees Turns , < 4 secs Unsupported Stance, Alternating Feet on 4 Steps w/Supervision Stair Unsupported Tandem Stance Holds Tandem- 30 seconds Unilateral Leg Stance Lifts Leg/Unable to Hold Total Score Adler Total Score (out of 56 points) 49 Adler Impairment Rating 1 to 19% Impaired (Score 45-55 ) PT-OP-E Functional Tests Start: 05/04/20 15:15 Freq: Status: Active Protocol: Document 02/02/21 11:15 DCW (Rec: 02/02/21 11:56 DCW [id number]) Functional Tests 6 Minute Walk Test Distance 1374 Device Used none Comments 3.82 ft/sec Timed Up and Go (TUG) Score 8.2 seconds Comments 3-trial average (8.58, 8.35, 7 .67) TUG Impairment Rating 0% Impaired (Score 10) PT-OP-G Mobility & Gait Start: 09/17/19 18:00 Freq: Status: Active Protocol: Document 02/02/21 11:15 DCW (Rec: 02/02/21 11:56 DCW [id number]) OP Gait Assessment Gait Gait Assistance Required: Standby Assistance Distance (Feet) 1,374 Assistive Devices Assistive Device None Gait Deviations General Gait Pattern Antalgic,Ataxic,Flexed Trunk Factors Limiting Gait Function Factors Limiting Gait Function Abnormal Tonal Influences, Decreased Activity Tolerance, Decreased Sensation,Decreased Strength Stair Climbing Evaluation Evaluation Level of Assist On Stairs Standby Assistance Devices Stair Climbing Assistive Devices Right Railing Technique/Endurance Stair Climbing Direction Ascend and Descend Stair Climbing Technique Step Over Step Number of Steps Climbed 4 PT-OP-H Neuro Start: 09/17/19 18:00 Freq: Status: Active Protocol: Document 02/02/21 11:15 DCW (Rec: 02/02/21 11:56 DCW [id number]) Deep Tendon Reflex & Clonus Assessment Deep Tendon Reflex Left Achilles Deep Tendon Reflex 4+ Brisk Left Patellar Deep Tendon Reflex 3+ Normal But Brisk Ankle Clonus Left Clonus Assessment Sustained Muscle Tone Tone Assessment Left Lower Extremity Flexor Tone Description Mild Hypotonicity PT-OP-M Strength Start: 09/17/19 18:00 Freq: Status: Active Protocol: Document 02/02/21 11:15 DCW (Rec: 02/02/21 11:56 DCW [id number]) Hip Strength Hip Manual Muscle Testing Left Flexion (L2) 4 Good Extension (S1) 5 Normal Abduction 4 Good Adduction 4+ Good+ External Rotation 4 Good Internal Rotation 4 Good Knee Strength Knee Manual Muscle Testing Left Flexion (S2) 4 Good Extension (L3) 5 Normal Ankle/Foot Strength Ankle and Foot Manual Muscle Testing Left Dorsiflexion (L4) 4 Good Plantarflexion (S1) 4 Good Inversion 4- Good- Eversion (S1) 3 Fair PT-OP-Q Treatments Start: 09/17/19 18:00 Freq: Status: Active Protocol: Document 04/21/21 11:20 DCW (Rec: 04/21/21 12:03 DCW [id number]) Gym Equipment Shuttle Recovery Unilateral Heel Raises Details Left Resistance 25# Reps/Time calf stretch at end Unilateral Squats Details Left Resistance 62# Shuttle Recovery Platform Stable Bilateral Squats Resistance 100# Shuttle Recovery Platform Stable Reps/Time x50 Therapeutic Exercises Sitting Exercises Dorsiflexion Sitting Exercise Name Dorsiflexion Side bilateral Resistance Lv 2 Gait Training Gait Activity No AD Description No AD Device Used None Level of Assistance SBA Distance/Duration 950' x1 Comments VCs to promote heel-toe gait, extend left knee during stance phase Neuro Re-Education Treatment Balance Activities Hurdles Details Hurdles Comments Min Ax1 Cone transfers Details Bending down ball pick-up from cone, kick cone over, ball toss to target PT-OP-R Modalities Start: 09/17/19 18:00 Freq: Status: Active Protocol: Document 04/21/21 11:20 DCW (Rec: 04/21/21 12:03 DCW [id number]) Electric Stimulation Electric Stimulation Interferential Current (IFC) Body Location L ant ankle Duration (Minutes) 15 Patient Position Sitting Combined With Heat/Cold Cold Pack PT-OP-S Aquatic Treatment Start: 09/17/19 18:00 Freq: Status: Active Protocol: Document 01/30/20 12:30 LJ (Rec: 01/30/20 14:54 LJ [id number]) Aquatics Treatment Pool Entry/Exit Pool Entry/Exit Method Lift Assistance Minimal Assistance Water Walking Slow motion Water Level Chest Level Walking Equipment wet vest, UE float, #2.5 ankle wt Level of Assistance Standby Assistance,Contact Guard Assistance,Moderate Assistance Comments emphasis on LLE extension stance phase January Water Level Chest Level Walking Equipment wet vest, UE float, #2.5 ankle wt Level of Assistance Standby Assistance,Contact Guard Assistance,Moderate Assistance,Verbal Cues Forward with emphasis on reciprocal gait pattern Water Level Chest Level Level of Assistance Standby Assistance,Contact Guard Assistance,Minimal Assistance,Verbal Cues Comments wetvest, sm float on LUE, #3. 75 ankle wt on LLE start stop walking forward and backward Water Level Chest Level Walking Equipment vest Level of Assistance Contact Guard Assistance, Verbal Cues Comments wetvest, sm float on LUE, #3. 75 ankle wt on LLE Sideways Water Level Chest Level Walking Equipment wet vest, UE float, #2.5 ankle wt Level of Assistance Standby Assistance,Contact Guard Assistance,Minimal Assistance,Verbal Cues Lower Extremity Exercises SL aquats Details HH on wall Body Position Standing Water Level Waist Level Equipment wetvest Reps/Duration 2x10 LLE Comments VC to extend knee knee extensions Details seated in lift chair Equipment Ankle Weight- 5.0# Reps/Duration 20 B Comments seated in lift SLS Details bracing LLE Body Position Standing Water Level Chest Level Equipment vest Reps/Duration 1 min marching at wall Water Level Chest Level Reps/Duration 2 min Comments opposite UE/LE tapping wall squats Body Position Standing Water Level Chest Level Reps/Duration 20x Lower Extremity Stretches adductors Comments seated in chair Gastroc Body Position Sitting Reps/Duration 2 x 45 sec B Comments manual assist hip flexors Details at wall Body Position Standing Water Level Waist Level Reps/Duration 2x45 Comments manually assisted HS Details at wall Body Position Sitting Water Level Waist Level Equipment wet vest Reps/Duration 2x45 Comments sitting in lift chair assisted Upper Extremity Exercises breastroke UE's Body Position Standing Water Level Chest Level Reps/Duration 3 min Comments during walking and deep water hor ab/ad Water Level Chest Level Comments during side walking, CGA Balance step ups Details step ups/down using boxes Body Position Standing Water Level Waist Level Equipment 8 boxes Comments mod verbal cues for coordination Sylvester Activities Sylvester Activities Bicycle,Cross Country Equipment wet vest, white noodle Duration 7 min Comments Guy and cues for vertical alignmernt. PT-OP-T Assessment and Plan Start: 09/17/19 18:00 Freq: Status: Active Protocol: Document 04/21/21 11:20 DCW (Rec: 04/21/21 12:03 DCW [id number]) Physical Therapy Assessment Impairments Impairments Activity Tolerance,Balance, Coordination,Functional Activities,Functional Mobility ,Gait,Pain,ROM,Sensation, Strength,Tone,Transfers Goals Six Impairment Decreased Static Balance Short Term Goal (STG) Pt to score <9 seconds on TUG STG Duration Met Usp Goal (LTG) MET - Pt to score 35/56 or better on the Adler Balance MET - Pt to score 45/56 or better on the Adler Balance Scale NEW GOAL: Pt to score 53/56 on Adler Balance Scale LTG Duration 05/05/21 Five Impairment Pt uses R rail and step-over gait pattern ascending stairs Usp Goal (LTG) Pt to ascend/descend stairs independently without use of rail LTG Duration 05/05/21 - Improving Four Impairment Pt demonstrates strength impairment throughout left LE Stoneworking Sander Goal (LTG) Pt to display MMT >3+/5 through L LE LTG Duration 05/05/21 - Met /c all but inversion Three Impairment Pt SBA for transfers and bed mobility d/t Left Neglect Stoneworking Sander Goal (LTG) Pt to demonstrate independent transfers and bed mobility with an ability to address left LE and UE 80% of the time LTG Duration Met Two Impairment Pt ambulates 280' CGA /s an AD Short Term Goal (STG) Pt to ambulate 400' SBA independently STG Duration Met Usp Goal (LTG) Pt to ambulate 800' during 6 MWT Independently without SBA LTG Duration 05/05/21 - Improving (1374' SBA ) One Impairment Pt does not have an appropriate home exercise program Short Term Goal (STG) Pt to be independent and compliant with an appropriate HEP STG Duration Met Assessment Summary Assessment Pt was struggling a bit more than usual today, had increased LOB while walking, increased SOB, may be at least partially caused by a very heavy allergen day today. Physical Therapy Plan Frequency and Duration Frequency of Treatment 2x/Week Duration of Treatment 3 months Plan of Care Start Date 02/02/21 Plan of Care End Date 05/05/21 Therapeutic Interventions Therapeutic Interventions Aquatic Therapy,Balance Training,Coordination Training ,Gait Training,Home Exercise Program,Manual Therapy, Neuromuscular Re-education, Patient/Caregiver Education, Self-Care/Home Management, Therapeutic Activities, Therapeutic Exercises Modalities Cold Pack/Ice Massage,Electric Stimulation,Hot Packs, Ultrasound Next Visit Focus/Plan Next Note Type Treatment Note Next Visit Plan SLS, visual scanning, increased activity tolerance
--- NOTE | 2021-04-26 12:05 | PT.OTN ---
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) Physical Therapy Treatment Note PT-OP-A Visit Information Start: 09/17/19 18:00 Freq: Status: Active Protocol: Document 04/26/21 11:18 DCW (Rec: 04/26/21 12:05 DCW [id number]) Out-Patient Physical Therapy Visit Information Visit Information Visit Type Treatment Note Visit Start Time 11:18 Visit Stop Time 12:11 Total Visit Minutes 53 Visit Number 118 Number of ENVIRONMENTAL INTERN Visits 0 Evaluation Information Evaluation Date 09/17/19 PT-OP-B Current Condition Start: 09/17/19 18:00 Freq: Status: Active Protocol: Document 09/17/19 12:00 DCW (Rec: 09/18/19 10:29 DCW [id number]) Current Condition History of Current Condition Onset Date 04/14/19 Current Complaints Hemiparesis secondary to CVA History of Current Condition Pt is a 69 year old male presenting to skilled outpatient physical therapy with left-side neglect, hemiparesis, loss of independence, and difficulty walking following an intraparenchymal hemorrhage on 04/14/19. Pt was transferred from [facility] to [facility], where a craniotomy was performed on 04/16/19. Pt completed 7 weeks of rehab/ recovery at [facility], and then underwent a second surgery on 06/26/19 to replace the skull fragment. Pt was then at an acute rehab facility 06/30-07/18/19, and since then has been receiving home health physical therapy. Pt presents today with limited left-sided function, left visual and physical neglect, difficulty with transfers, decreased activity tolerance, decreased gait, and many other secondary effects following his CVA. Pt has been working on ambulation with a vale walker with home health, and his states he has walked around 100' a few times, but always with a therapist, as she does not feel comfortable walking with him yet. Pt exclusively gets around at time of evaluation in a manual wheelchair. Pt's transfers have been going fairly well, with his caregivers performing CGA, however pt will occasionally need assistance with placement of his left UE and LE due to neglect. Pt's biggest complaint at the moment is leg pain, his reports they have tried PT, Massage, CBD il, Tylenol, Oxycodine, and Gabapentin, all with minimal benefit. Prior to CVA, pt was fully independent in all activities. Pt and have garegivers 8 hrs a day for assistance. Prior Treatments and Tests Craniotomy 04/16/19, Acute rehab, Skull fragment replacement 06/26/19, home health PT Prior Functional Status Baseline Function- ADL's Independent Baseline Function- Mobility Independent PT-OP-C Subjective Start: 09/17/19 18:00 Freq: Status: Active Protocol: Document 04/26/21 11:18 DCW (Rec: 04/26/21 12:05 DCW [id number]) OP-PT Subjective Patient Comments Patient Comments Pt reports he had some positive allergy testing performed yesterday, which he believes is the cause of his breathing problems. PT-OP-D Balance Start: 08/04/20 14:14 Freq: Status: Active Protocol: Document 02/02/21 11:15 DCW (Rec: 02/02/21 11:56 DCW [id number]) Balance Tests Adler Balance Test Adler Balance Test Score 49/56 Adler Impairment Rating 1 to 19% Impaired (Score 45-55 ) Adler Balance Assessment Evaluation Sitting to Standing Ability Independent w/out Hands Unsupported Stance Safely- 2 minutes Sitting Unsupported, Feet on Floor Safely- 2 minutes Standing to Sitting Ability Safely, Minimal Hand Use Transfer Ability Safely, Minimal Hand Use Unsupported Stance- Eyes Closed Safely, 10 seconds Unsupported Stance- Eyes Open Independent, 1 minute Reaching Forward Standing Confidently, 10 inches Pick- Up Object From Floor Independent/Safe Look Behind Shoulder - Standing Shifts Weight Well Turning 360 Degrees Turns , < 4 secs Unsupported Stance, Alternating Feet on 4 Steps w/Supervision Stair Unsupported Tandem Stance Holds Tandem- 30 seconds Unilateral Leg Stance Lifts Leg/Unable to Hold Total Score Adler Total Score (out of 56 points) 49 Adler Impairment Rating 1 to 19% Impaired (Score 45-55 ) PT-OP-E Functional Tests Start: 05/04/20 15:15 Freq: Status: Active Protocol: Document 02/02/21 11:15 DCW (Rec: 02/02/21 11:56 DCW [id number]) Functional Tests 6 Minute Walk Test Distance 1374 Device Used none Comments 3.82 ft/sec Timed Up and Go (TUG) Score 8.2 seconds Comments 3-trial average (8.58, 8.35, 7 .67) TUG Impairment Rating 0% Impaired (Score 10) PT-OP-G Mobility & Gait Start: 09/17/19 18:00 Freq: Status: Active Protocol: Document 02/02/21 11:15 DCW (Rec: 02/02/21 11:56 DCW [id number]) OP Gait Assessment Gait Gait Assistance Required: Standby Assistance Distance (Feet) 1,374 Assistive Devices Assistive Device None Gait Deviations General Gait Pattern Antalgic,Ataxic,Flexed Trunk Factors Limiting Gait Function Factors Limiting Gait Function Abnormal Tonal Influences, Decreased Activity Tolerance, Decreased Sensation,Decreased Strength Stair Climbing Evaluation Evaluation Level of Assist On Stairs Standby Assistance Devices Stair Climbing Assistive Devices Right Railing Technique/Endurance Stair Climbing Direction Ascend and Descend Stair Climbing Technique Step Over Step Number of Steps Climbed 4 PT-OP-H Neuro Start: 09/17/19 18:00 Freq: Status: Active Protocol: Document 02/02/21 11:15 DCW (Rec: 02/02/21 11:56 DCW [id number]) Deep Tendon Reflex & Clonus Assessment Deep Tendon Reflex Left Achilles Deep Tendon Reflex 4+ Brisk Left Patellar Deep Tendon Reflex 3+ Normal But Brisk Ankle Clonus Left Clonus Assessment Sustained Muscle Tone Tone Assessment Left Lower Extremity Flexor Tone Description Mild Hypotonicity PT-OP-M Strength Start: 09/17/19 18:00 Freq: Status: Active Protocol: Document 02/02/21 11:15 DCW (Rec: 02/02/21 11:56 DCW [id number]) Hip Strength Hip Manual Muscle Testing Left Flexion (L2) 4 Good Extension (S1) 5 Normal Abduction 4 Good Adduction 4+ Good+ External Rotation 4 Good Internal Rotation 4 Good Knee Strength Knee Manual Muscle Testing Left Flexion (S2) 4 Good Extension (L3) 5 Normal Ankle/Foot Strength Ankle and Foot Manual Muscle Testing Left Dorsiflexion (L4) 4 Good Plantarflexion (S1) 4 Good Inversion 4- Good- Eversion (S1) 3 Fair PT-OP-Q Treatments Start: 09/17/19 18:00 Freq: Status: Active Protocol: Document 04/26/21 11:18 DCW (Rec: 04/26/21 12:05 DCW [id number]) Gym Equipment Shuttle Recovery Unilateral Heel Raises Details Left Resistance 25# Reps/Time calf stretch at end Unilateral Squats Details Left Resistance 62# Shuttle Recovery Platform Stable Bilateral Squats Resistance 100# Shuttle Recovery Platform Stable Reps/Time x50 Therapeutic Exercises Sitting Exercises Dorsiflexion Sitting Exercise Name 3-way ankle flexion Side left Resistance Lv 2 Gait Training Gait Activity No AD Description No AD Device Used None Level of Assistance SBA Distance/Duration 950' x1 Comments VCs to promote heel-toe gait, extend left knee during stance phase Neuro Re-Education Treatment Balance Activities Cone transfers Details Bending down ball pick-up from cone, kick cone over, ball toss to target PT-OP-R Modalities Start: 09/17/19 18:00 Freq: Status: Active Protocol: Document 04/26/21 11:18 DCW (Rec: 04/26/21 12:05 DCW [id number]) Electric Stimulation Electric Stimulation Interferential Current (IFC) Body Location L ant ankle Duration (Minutes) 15 Patient Position Sitting Combined With Heat/Cold Cold Pack PT-OP-S Aquatic Treatment Start: 09/17/19 18:00 Freq: Status: Active Protocol: Document 01/30/20 12:30 LJ (Rec: 01/30/20 14:54 LJ [id number]) Aquatics Treatment Pool Entry/Exit Pool Entry/Exit Method Lift Assistance Minimal Assistance Water Walking Slow motion Water Level Chest Level Walking Equipment wet vest, UE float, #2.5 ankle wt Level of Assistance Standby Assistance,Contact Guard Assistance,Moderate Assistance Comments emphasis on LLE extension stance phase January Water Level Chest Level Walking Equipment wet vest, UE float, #2.5 ankle wt Level of Assistance Standby Assistance,Contact Guard Assistance,Moderate Assistance,Verbal Cues Forward with emphasis on reciprocal gait pattern Water Level Chest Level Level of Assistance Standby Assistance,Contact Guard Assistance,Minimal Assistance,Verbal Cues Comments wetvest, sm float on LUE, #3. 75 ankle wt on LLE start stop walking forward and backward Water Level Chest Level Walking Equipment vest Level of Assistance Contact Guard Assistance, Verbal Cues Comments wetvest, sm float on LUE, #3. 75 ankle wt on LLE Sideways Water Level Chest Level Walking Equipment wet vest, UE float, #2.5 ankle wt Level of Assistance Standby Assistance,Contact Guard Assistance,Minimal Assistance,Verbal Cues Lower Extremity Exercises SL aquats Details HH on wall Body Position Standing Water Level Waist Level Equipment wetvest Reps/Duration 2x10 LLE Comments VC to extend knee knee extensions Details seated in lift chair Equipment Ankle Weight- 5.0# Reps/Duration 20 B Comments seated in lift SLS Details bracing LLE Body Position Standing Water Level Chest Level Equipment vest Reps/Duration 1 min marching at wall Water Level Chest Level Reps/Duration 2 min Comments opposite UE/LE tapping wall squats Body Position Standing Water Level Chest Level Reps/Duration 20x Lower Extremity Stretches adductors Comments seated in chair Gastroc Body Position Sitting Reps/Duration 2 x 45 sec B Comments manual assist hip flexors Details at wall Body Position Standing Water Level Waist Level Reps/Duration 2x45 Comments manually assisted HS Details at wall Body Position Sitting Water Level Waist Level Equipment wet vest Reps/Duration 2x45 Comments sitting in lift chair assisted Upper Extremity Exercises breastroke UE's Body Position Standing Water Level Chest Level Reps/Duration 3 min Comments during walking and deep water hor ab/ad Water Level Chest Level Comments during side walking, CGA Balance step ups Details step ups/down using boxes Body Position Standing Water Level Waist Level Equipment 8 boxes Comments mod verbal cues for coordination [place] Activities [place] Activities Bicycle,Cross Country Equipment wet vest, white noodle Duration 7 min Comments Guy and cues for vertical alignmernt. PT-OP-T Assessment and Plan Start: 09/17/19 18:00 Freq: Status: Active Protocol: Document 04/26/21 11:18 DCW (Rec: 04/26/21 12:05 DCW [id number]) Physical Therapy Assessment Impairments Impairments Activity Tolerance,Balance, Coordination,Functional Activities,Functional Mobility ,Gait,Pain,ROM,Sensation, Strength,Tone,Transfers Goals Six Impairment Decreased Static Balance Short Term Goal (STG) Pt to score <9 seconds on TUG STG Duration Met Technical Communication Teacher Goal (LTG) MET - Pt to score 35/56 or better on the Adler Balance MET - Pt to score 45/56 or better on the Adler Balance Scale NEW GOAL: Pt to score 53/56 on Adler Balance Scale LTG Duration 05/05/21 Five Impairment Pt uses R rail and step-over gait pattern ascending stairs Halfway Goal (LTG) Pt to ascend/descend stairs independently without use of rail LTG Duration 05/05/21 - Improving Four Impairment Pt demonstrates strength impairment throughout left LE Technical Communication Teacher Goal (LTG) Pt to display MMT >3+/5 through L LE LTG Duration 05/05/21 - Met /c all but inversion Three Impairment Pt SBA for transfers and bed mobility d/t Left Neglect Halfway Goal (LTG) Pt to demonstrate independent transfers and bed mobility with an ability to address left LE and UE 80% of the time LTG Duration Met Two Impairment Pt ambulates 280' CGA /s an AD Short Term Goal (STG) Pt to ambulate 400' SBA independently STG Duration Met Technical Communication Teacher Goal (LTG) Pt to ambulate 800' during 6 MWT Independently without SBA LTG Duration 05/05/21 - Improving (1374' SBA ) One Impairment Pt does not have an appropriate home exercise program Short Term Goal (STG) Pt to be independent and compliant with an appropriate HEP STG Duration Met Assessment Summary Assessment Pt did much better today, breathing was improved, pt tolerated treatment well. Physical Therapy Plan Frequency and Duration Frequency of Treatment 2x/Week Duration of Treatment 3 months Plan of Care Start Date 02/02/21 Plan of Care End Date 05/05/21 Therapeutic Interventions Therapeutic Interventions Aquatic Therapy,Balance Training,Coordination Training ,Gait Training,Home Exercise Program,Manual Therapy, Neuromuscular Re-education, Patient/Caregiver Education, Self-Care/Home Management, Therapeutic Activities, Therapeutic Exercises Modalities Cold Pack/Ice Massage,Electric Stimulation,Hot Packs, Ultrasound Next Visit Focus/Plan Next Note Type Progress Note Next Visit Plan SLS, visual scanning, increased activity tolerance
--- NOTE | 2021-04-28 12:58 | PT.OTN ---
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) Physical Therapy Treatment Note PT-OP-A Visit Information Start: 09/17/19 18:00 Freq: Status: Active Protocol: Document 04/28/21 11:15 DCW (Rec: 04/28/21 12:58 DCW [id number]) Out-Patient Physical Therapy Visit Information Visit Information Visit Type Progress Note Visit Start Time 11:15 Visit Stop Time 12:10 Total Visit Minutes 55 Visit Number 119 Number of ADOLESCENT MEDICINE SPECIALIST Visits 0 Evaluation Information Evaluation Date 09/17/19 PT-OP-B Current Condition Start: 09/17/19 18:00 Freq: Status: Active Protocol: Document 09/17/19 12:00 DCW (Rec: 09/18/19 10:29 DCW [id number]) Current Condition History of Current Condition Onset Date 04/14/19 Current Complaints Hemiparesis secondary to CVA History of Current Condition Pt is a 69 year old male presenting to skilled outpatient physical therapy with left-side neglect, hemiparesis, loss of independence, and difficulty walking following an intraparenchymal hemorrhage on 04/14/19. Pt was transferred from [facility] to [facility], where a craniotomy was performed on 04/16/19. Pt completed 7 weeks of rehab/ recovery at [facility], and then underwent a second surgery on 06/26/19 to replace the skull fragment. Pt was then at an acute rehab facility 06/30-07/18/19, and since then has been receiving home health physical therapy. Pt presents today with limited left-sided function, left visual and physical neglect, difficulty with transfers, decreased activity tolerance, decreased gait, and many other secondary effects following his CVA. Pt has been working on ambulation with a vale walker with home health, and his states he has walked around 100' a few times, but always with a therapist, as she does not feel comfortable walking with him yet. Pt exclusively gets around at time of evaluation in a manual wheelchair. Pt's transfers have been going fairly well, with his caregivers performing CGA, however pt will occasionally need assistance with placement of his left UE and LE due to neglect. Pt's biggest complaint at the moment is leg pain, his reports they have tried PT, Massage, CBD il, Tylenol, Oxycodine, and Gabapentin, all with minimal benefit. Prior to CVA, pt was fully independent in all activities. Pt and have garegivers 8 hrs a day for assistance. Prior Treatments and Tests Craniotomy 04/16/19, Acute rehab, Skull fragment replacement 06/26/19, home health PT Prior Functional Status Baseline Function- ADL's Independent Baseline Function- Mobility Independent PT-OP-C Subjective Start: 09/17/19 18:00 Freq: Status: Active Protocol: Document 04/28/21 11:15 DCW (Rec: 04/28/21 12:58 DCW [id number]) OP-PT Subjective Patient Comments Patient Comments Pt still having concerns regarding his breathing PT-OP-D Balance Start: 08/04/20 14:14 Freq: Status: Active Protocol: Document 02/02/21 11:15 DCW (Rec: 02/02/21 11:56 DCW [id number]) Balance Tests Adler Balance Test Adler Balance Test Score 49/56 Adler Impairment Rating 1 to 19% Impaired (Score 45-55 ) Adler Balance Assessment Evaluation Sitting to Standing Ability Independent w/out Hands Unsupported Stance Safely- 2 minutes Sitting Unsupported, Feet on Floor Safely- 2 minutes Standing to Sitting Ability Safely, Minimal Hand Use Transfer Ability Safely, Minimal Hand Use Unsupported Stance- Eyes Closed Safely, 10 seconds Unsupported Stance- Eyes Open Independent, 1 minute Reaching Forward Standing Confidently, 10 inches Pick- Up Object From Floor Independent/Safe Look Behind Shoulder - Standing Shifts Weight Well Turning 360 Degrees Turns , < 4 secs Unsupported Stance, Alternating Feet on 4 Steps w/Supervision Stair Unsupported Tandem Stance Holds Tandem- 30 seconds Unilateral Leg Stance Lifts Leg/Unable to Hold Total Score Adler Total Score (out of 56 points) 49 Adler Impairment Rating 1 to 19% Impaired (Score 45-55 ) PT-OP-E Functional Tests Start: 05/04/20 15:15 Freq: Status: Active Protocol: Document 04/28/21 11:15 DCW (Rec: 04/28/21 11:58 DCW [id number]) Functional Tests 6 Minute Walk Test Distance 1408 Device Used none Comments 3.91 ft/sec Timed Up and Go (TUG) Score 8.36 seconds Comments 3-trial average (9.02, 8.46, 7 .60) TUG Impairment Rating 0% Impaired (Score 10) PT-OP-G Mobility & Gait Start: 09/17/19 18:00 Freq: Status: Active Protocol: Document 04/28/21 11:15 DCW (Rec: 04/28/21 11:58 DCW [id number]) OP Gait Assessment Gait Gait Assistance Required: Standby Assistance Distance (Feet) 1,408 Assistive Devices Assistive Device None Gait Deviations General Gait Pattern Antalgic,Ataxic,Flexed Trunk Factors Limiting Gait Function Factors Limiting Gait Function Abnormal Tonal Influences, Decreased Activity Tolerance, Decreased Sensation,Poor Safety Awareness,Respiratory Distress Stair Climbing Evaluation Evaluation Level of Assist On Stairs Standby Assistance Devices Stair Climbing Assistive Devices Right Railing Technique/Endurance Stair Climbing Direction Ascend and Descend Stair Climbing Technique Step Over Step Number of Steps Climbed 4 PT-OP-H Neuro Start: 09/17/19 18:00 Freq: Status: Active Protocol: Document 04/28/21 11:15 DCW (Rec: 04/28/21 11:58 DCW [id number]) Deep Tendon Reflex & Clonus Assessment Deep Tendon Reflex Left Achilles Deep Tendon Reflex 2+ Normal Left Patellar Deep Tendon Reflex 2+ Normal Ankle Clonus Left Clonus Assessment Sustained Muscle Tone Tone Assessment Left Lower Extremity Flexor Tone Description Mild Hypotonicity PT-OP-M Strength Start: 09/17/19 18:00 Freq: Status: Active Protocol: Document 04/28/21 11:15 DCW (Rec: 04/28/21 11:58 DCW [id number]) Hip Strength Hip Manual Muscle Testing Left Flexion (L2) 4+ Good+ Extension (S1) 5 Normal Abduction 4 Good Adduction 5 Normal External Rotation 4 Good Internal Rotation 4 Good Knee Strength Knee Manual Muscle Testing Left Flexion (S2) 4 Good Extension (L3) 5 Normal Ankle/Foot Strength Ankle and Foot Manual Muscle Testing Left Dorsiflexion (L4) 5 Normal Plantarflexion (S1) 4 Good Inversion 4 Good Eversion (S1) 4 Good PT-OP-Q Treatments Start: 09/17/19 18:00 Freq: Status: Active Protocol: Document 04/28/21 11:15 DCW (Rec: 04/28/21 12:58 DCW [id number]) Neuro Re-Education Treatment Other Activities Testing Details 6MWT, TUG, Reflex testing, MMT Comments Adler testing skipped due to extended bathroom emergency PT-OP-R Modalities Start: 09/17/19 18:00 Freq: Status: Active Protocol: Document 04/28/21 11:15 DCW (Rec: 04/28/21 12:58 DCW [id number]) Electric Stimulation Electric Stimulation Interferential Current (IFC) Body Location L ant ankle Duration (Minutes) 15 Patient Position Sitting Combined With Heat/Cold Cold Pack PT-OP-S Aquatic Treatment Start: 09/17/19 18:00 Freq: Status: Active Protocol: Document 01/30/20 12:30 LJ (Rec: 01/30/20 14:54 LJ [id number]) Aquatics Treatment Pool Entry/Exit Pool Entry/Exit Method Lift Assistance Minimal Assistance Water Walking Slow motion Water Level Chest Level Walking Equipment wet vest, UE float, #2.5 ankle wt Level of Assistance Standby Assistance,Contact Guard Assistance,Moderate Assistance Comments emphasis on LLE extension stance phase January Water Level Chest Level Walking Equipment wet vest, UE float, #2.5 ankle wt Level of Assistance Standby Assistance,Contact Guard Assistance,Moderate Assistance,Verbal Cues Forward with emphasis on reciprocal gait pattern Water Level Chest Level Level of Assistance Standby Assistance,Contact Guard Assistance,Minimal Assistance,Verbal Cues Comments wetvest, sm float on LUE, #3. 75 ankle wt on LLE start stop walking forward and backward Water Level Chest Level Walking Equipment vest Level of Assistance Contact Guard Assistance, Verbal Cues Comments wetvest, sm float on LUE, #3. 75 ankle wt on LLE Sideways Water Level Chest Level Walking Equipment wet vest, UE float, #2.5 ankle wt Level of Assistance Standby Assistance,Contact Guard Assistance,Minimal Assistance,Verbal Cues Lower Extremity Exercises SL aquats Details HH on wall Body Position Standing Water Level Waist Level Equipment wetvest Reps/Duration 2x10 LLE Comments VC to extend knee knee extensions Details seated in lift chair Equipment Ankle Weight- 5.0# Reps/Duration 20 B Comments seated in lift SLS Details bracing LLE Body Position Standing Water Level Chest Level Equipment vest Reps/Duration 1 min marching at wall Water Level Chest Level Reps/Duration 2 min Comments opposite UE/LE tapping wall squats Body Position Standing Water Level Chest Level Reps/Duration 20x Lower Extremity Stretches adductors Comments seated in chair Gastroc Body Position Sitting Reps/Duration 2 x 45 sec B Comments manual assist hip flexors Details at wall Body Position Standing Water Level Waist Level Reps/Duration 2x45 Comments manually assisted HS Details at wall Body Position Sitting Water Level Waist Level Equipment wet vest Reps/Duration 2x45 Comments sitting in lift chair assisted Upper Extremity Exercises breastroke UE's Body Position Standing Water Level Chest Level Reps/Duration 3 min Comments during walking and deep water hor ab/ad Water Level Chest Level Comments during side walking, CGA Balance step ups Details step ups/down using boxes Body Position Standing Water Level Waist Level Equipment 8 boxes Comments mod verbal cues for coordination Belt Activities Belt Activities Bicycle,Cross Country Equipment wet vest, white noodle Duration 7 min Comments Guy and cues for vertical alignmernt. PT-OP-T Assessment and Plan Start: 09/17/19 18:00 Freq: Status: Active Protocol: Document 04/28/21 11:15 DCW (Rec: 04/28/21 12:58 DCW [id number]) Physical Therapy Assessment Impairments Impairments Activity Tolerance,Balance, Coordination,Functional Activities,Functional Mobility ,Gait,Pain,ROM,Sensation, Strength,Tone,Transfers Goals Six Impairment Decreased Static Balance Short Term Goal (STG) Pt to score <9 seconds on TUG STG Duration Met Senior Care Goal (LTG) NEW GOAL: Pt to score 53/56 on Adler Balance Scale LTG Duration 07/29/21 Five Impairment Pt uses R rail and step-over gait pattern ascending stairs Senior Care Goal (LTG) Pt to ascend/descend stairs independently without use of rail LTG Duration 07/29/21 - Improving Four Impairment Pt demonstrates strength impairment throughout left LE Coreroom Foundry Laborer Goal (LTG) Pt to display MMT >3+/5 through L LE LTG Duration Met Three Impairment Pt SBA for transfers and bed mobility d/t Left Neglect Senior Care Goal (LTG) Pt to demonstrate independent transfers and bed mobility with an ability to address left LE and UE 80% of the time LTG Duration Met Two Impairment Pt ambulates 280' CGA /s an AD Short Term Goal (STG) Pt to ambulate 400' SBA independently STG Duration Met Senior Care Goal (LTG) Pt to ambulate 800' during 6 MWT Independently without SBA LTG Duration 07/29/21 - Improving (1408' SBA ) One Impairment Pt does not have an appropriate home exercise program Short Term Goal (STG) Pt to be independent and compliant with an appropriate HEP STG Duration Met Assessment Summary Assessment Overall, pt is making great progress. Increased gait speed with 6MWT, better technique with sit->stand during TUG, much better LE strength overall. Pt's main deficit now is more safety concerns due to decreased safety awareness and continuing left neglect. Therapist also discussed more today desire to have patient stop using the wheel chair, or at least drastically decrease is time spent in it. Pt should benefit from continued therapy focusing on improving visual scanning and decreasing effects of left visual neglect, as well as increased safety awareness and balance training. Physical Therapy Plan Frequency and Duration Frequency of Treatment 2x/Week Duration of Treatment 3 months Plan of Care Start Date 04/28/21 Plan of Care End Date 07/29/21 Therapeutic Interventions Therapeutic Interventions Aquatic Therapy,Balance Training,Coordination Training ,Gait Training,Home Exercise Program,Manual Therapy, Neuromuscular Re-education, Patient/Caregiver Education, Self-Care/Home Management, Therapeutic Activities, Therapeutic Exercises Modalities Cold Pack/Ice Massage,Electric Stimulation,Hot Packs, Ultrasound Next Visit Focus/Plan Next Note Type Treatment Note Next Visit Plan SLS, visual scanning, increased activity tolerance
--- NOTE | 2021-04-28 12:59 | PT.OPPOC ---
Physical, Occupational & Speech Therapy At 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) Visit Care Team Role Provider Type Yesy Cortes MD Attending Provider Physician Primary Care Provider Specialty: Internal Medicine Address: [address] [place] [address], [facility] Email: [email or web address] Plan Of Care PT-OP-T Assessment and Plan Start: 09/17/19 18:00 Freq: Status: Active Protocol: Document 04/28/21 11:15 DCW (Rec: 04/28/21 12:58 DCW [id number]) Physical Therapy Assessment Impairments Impairments Activity Tolerance,Balance, Coordination,Functional Activities,Functional Mobility ,Gait,Pain,ROM,Sensation, Strength,Tone,Transfers Goals Six Impairment Decreased Static Balance Short Term Goal (STG) Pt to score <9 seconds on TUG STG Duration Met Assisted Goal (LTG) NEW GOAL: Pt to score 53/56 on Adler Balance Scale LTG Duration 07/29/21 Five Impairment Pt uses R rail and step-over gait pattern ascending stairs Assisted Goal (LTG) Pt to ascend/descend stairs independently without use of rail LTG Duration 07/29/21 - Improving Four Impairment Pt demonstrates strength impairment throughout left LE Loft Worker Head Goal (LTG) Pt to display MMT >3+/5 through L LE LTG Duration Met Three Impairment Pt SBA for transfers and bed mobility d/t Left Neglect Assisted Goal (LTG) Pt to demonstrate independent transfers and bed mobility with an ability to address left LE and UE 80% of the time LTG Duration Met Two Impairment Pt ambulates 280' CGA /s an AD Short Term Goal (STG) Pt to ambulate 400' SBA independently STG Duration Met Assisted Goal (LTG) Pt to ambulate 800' during 6 MWT Independently without SBA LTG Duration 07/29/21 - Improving (1408' SBA ) One Impairment Pt does not have an appropriate home exercise program Short Term Goal (STG) Pt to be independent and compliant with an appropriate HEP STG Duration Met Assessment Summary Assessment Overall, pt is making great progress. Increased gait speed with 6MWT, better technique with sit->stand during TUG, much better LE strength overall. Pt's main deficit now is more safety concerns due to decreased safety awareness and continuing left neglect. Therapist also discussed more today desire to have patient stop using the wheel chair, or at least drastically decrease is time spent in it. Pt should benefit from continued therapy focusing on improving visual scanning and decreasing effects of left visual neglect, as well as increased safety awareness and balance training. Physical Therapy Plan Frequency and Duration Frequency of Treatment 2x/Week Duration of Treatment 3 months Plan of Care Start Date 04/28/21 Plan of Care End Date 07/29/21 Therapeutic Interventions Therapeutic Interventions Aquatic Therapy,Balance Training,Coordination Training ,Gait Training,Home Exercise Program,Manual Therapy, Neuromuscular Re-education, Patient/Caregiver Education, Self-Care/Home Management, Therapeutic Activities, Therapeutic Exercises Modalities Cold Pack/Ice Massage,Electric Stimulation,Hot Packs, Ultrasound Next Visit Focus/Plan Next Note Type Treatment Note Next Visit Plan SLS, visual scanning, increased activity tolerance Plan of Care Dates Plan of Care Start Date 04/28/21 Plan of Care End Date 07/29/21 Electronically Signed by: Osbaldo Barrios, PT 04/28/21 [id number] Please Sign and Return: I have reviewed this Plan of Care and certify that the skilled therapy services above are required to meet the patient?s needs. Physician Signature Date Printed Name and Credentials Clinical Instructor Signature Printed Name and Credentials
--- NOTE | 2021-05-09 11:58 | PT.OTN ---
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) Physical Therapy Treatment Note PT-OP-A Visit Information Start: 09/17/19 18:00 Freq: Status: Active Protocol: Document 05/09/21 11:16 DCW (Rec: 05/09/21 11:58 DCW [id number]) Out-Patient Physical Therapy Visit Information Visit Information Visit Type Treatment Note Visit Start Time 11:16 Visit Stop Time 12:00 Total Visit Minutes 54 Visit Number 120 Number of ELECTRIC APPLIANCE INSTALLER Visits 0 Evaluation Information Evaluation Date 09/17/19 PT-OP-B Current Condition Start: 09/17/19 18:00 Freq: Status: Active Protocol: Document 09/17/19 12:00 DCW (Rec: 09/18/19 10:29 DCW [id number]) Current Condition History of Current Condition Onset Date 04/14/19 Current Complaints Hemiparesis secondary to CVA History of Current Condition Pt is a 69 year old male presenting to skilled outpatient physical therapy with left-side neglect, hemiparesis, loss of independence, and difficulty walking following an intraparenchymal hemorrhage on 04/14/19. Pt was transferred from [facility] to [facility], where a craniotomy was performed on 04/16/19. Pt completed 7 weeks of rehab/ recovery at [facility], and then underwent a second surgery on 06/26/19 to replace the skull fragment. Pt was then at an acute rehab facility 06/30-07/18/19, and since then has been receiving home health physical therapy. Pt presents today with limited left-sided function, left visual and physical neglect, difficulty with transfers, decreased activity tolerance, decreased gait, and many other secondary effects following his CVA. Pt has been working on ambulation with a vale walker with home health, and his states he has walked around 100' a few times, but always with a therapist, as she does not feel comfortable walking with him yet. Pt exclusively gets around at time of evaluation in a manual wheelchair. Pt's transfers have been going fairly well, with his caregivers performing CGA, however pt will occasionally need assistance with placement of his left UE and LE due to neglect. Pt's biggest complaint at the moment is leg pain, his reports they have tried PT, Massage, CBD il, Tylenol, Oxycodine, and Gabapentin, all with minimal benefit. Prior to CVA, pt was fully independent in all activities. Pt and have garegivers 8 hrs a day for assistance. Prior Treatments and Tests Craniotomy 04/16/19, Acute rehab, Skull fragment replacement 06/26/19, home health PT Prior Functional Status Baseline Function- ADL's Independent Baseline Function- Mobility Independent PT-OP-C Subjective Start: 09/17/19 18:00 Freq: Status: Active Protocol: Document 05/09/21 11:16 DCW (Rec: 05/09/21 11:58 DCW [id number]) OP-PT Subjective Patient Comments Patient Comments Pt still having some trouble with the breathing stuff. PT-OP-D Balance Start: 08/04/20 14:14 Freq: Status: Active Protocol: Document 02/02/21 11:15 DCW (Rec: 02/02/21 11:56 DCW [id number]) Balance Tests Adler Balance Test Adler Balance Test Score 49/56 Adler Impairment Rating 1 to 19% Impaired (Score 45-55 ) Adler Balance Assessment Evaluation Sitting to Standing Ability Independent w/out Hands Unsupported Stance Safely- 2 minutes Sitting Unsupported, Feet on Floor Safely- 2 minutes Standing to Sitting Ability Safely, Minimal Hand Use Transfer Ability Safely, Minimal Hand Use Unsupported Stance- Eyes Closed Safely, 10 seconds Unsupported Stance- Eyes Open Independent, 1 minute Reaching Forward Standing Confidently, 10 inches Pick- Up Object From Floor Independent/Safe Look Behind Shoulder - Standing Shifts Weight Well Turning 360 Degrees Turns , < 4 secs Unsupported Stance, Alternating Feet on 4 Steps w/Supervision Stair Unsupported Tandem Stance Holds Tandem- 30 seconds Unilateral Leg Stance Lifts Leg/Unable to Hold Total Score Adler Total Score (out of 56 points) 49 Adler Impairment Rating 1 to 19% Impaired (Score 45-55 ) PT-OP-E Functional Tests Start: 05/04/20 15:15 Freq: Status: Active Protocol: Document 04/28/21 11:15 DCW (Rec: 04/28/21 11:58 DCW [id number]) Functional Tests 6 Minute Walk Test Distance 1408 Device Used none Comments 3.91 ft/sec Timed Up and Go (TUG) Score 8.36 seconds Comments 3-trial average (9.02, 8.46, 7 .60) TUG Impairment Rating 0% Impaired (Score 10) PT-OP-G Mobility & Gait Start: 09/17/19 18:00 Freq: Status: Active Protocol: Document 04/28/21 11:15 DCW (Rec: 04/28/21 11:58 DCW [id number]) OP Gait Assessment Gait Gait Assistance Required: Standby Assistance Distance (Feet) 1,408 Assistive Devices Assistive Device None Gait Deviations General Gait Pattern Antalgic,Ataxic,Flexed Trunk Factors Limiting Gait Function Factors Limiting Gait Function Abnormal Tonal Influences, Decreased Activity Tolerance, Decreased Sensation,Poor Safety Awareness,Respiratory Distress Stair Climbing Evaluation Evaluation Level of Assist On Stairs Standby Assistance Devices Stair Climbing Assistive Devices Right Railing Technique/Endurance Stair Climbing Direction Ascend and Descend Stair Climbing Technique Step Over Step Number of Steps Climbed 4 PT-OP-H Neuro Start: 09/17/19 18:00 Freq: Status: Active Protocol: Document 04/28/21 11:15 DCW (Rec: 04/28/21 11:58 DCW [id number]) Deep Tendon Reflex & Clonus Assessment Deep Tendon Reflex Left Achilles Deep Tendon Reflex 2+ Normal Left Patellar Deep Tendon Reflex 2+ Normal Ankle Clonus Left Clonus Assessment Sustained Muscle Tone Tone Assessment Left Lower Extremity Flexor Tone Description Mild Hypotonicity PT-OP-M Strength Start: 09/17/19 18:00 Freq: Status: Active Protocol: Document 04/28/21 11:15 DCW (Rec: 04/28/21 11:58 DCW [id number]) Hip Strength Hip Manual Muscle Testing Left Flexion (L2) 4+ Good+ Extension (S1) 5 Normal Abduction 4 Good Adduction 5 Normal External Rotation 4 Good Internal Rotation 4 Good Knee Strength Knee Manual Muscle Testing Left Flexion (S2) 4 Good Extension (L3) 5 Normal Ankle/Foot Strength Ankle and Foot Manual Muscle Testing Left Dorsiflexion (L4) 5 Normal Plantarflexion (S1) 4 Good Inversion 4 Good Eversion (S1) 4 Good PT-OP-Q Treatments Start: 09/17/19 18:00 Freq: Status: Active Protocol: Document 05/09/21 11:16 DCW (Rec: 05/09/21 11:58 DCW [id number]) Cardio Equipment Treadmill Duration (Minutes) 10 Speed 1.5-2.1 Incline 0 Other 0.30 miles Gym Equipment Shuttle Recovery Unilateral Heel Raises Details Left Resistance 25# Reps/Time calf stretch at end Unilateral Squats Details Left Resistance 62# Shuttle Recovery Platform Stable Bilateral Squats Resistance 100# Shuttle Recovery Platform Stable Reps/Time x50 Shuttle Balance Red Details Wide [id number], Staggered Comments Min Ax1 PT-OP-R Modalities Start: 09/17/19 18:00 Freq: Status: Active Protocol: Document 05/09/21 11:16 DCW (Rec: 05/09/21 11:58 DCW [id number]) Electric Stimulation Electric Stimulation Interferential Current (IFC) Body Location L ant ankle Duration (Minutes) 15 Patient Position Sitting Combined With Heat/Cold Cold Pack PT-OP-S Aquatic Treatment Start: 09/17/19 18:00 Freq: Status: Active Protocol: Document 01/30/20 12:30 LJ (Rec: 01/30/20 14:54 LJ [id number]) Aquatics Treatment Pool Entry/Exit Pool Entry/Exit Method Lift Assistance Minimal Assistance Water Walking Slow motion Water Level Chest Level Walking Equipment wet vest, UE float, #2.5 ankle wt Level of Assistance Standby Assistance,Contact Guard Assistance,Moderate Assistance Comments emphasis on LLE extension stance phase January Water Level Chest Level Walking Equipment wet vest, UE float, #2.5 ankle wt Level of Assistance Standby Assistance,Contact Guard Assistance,Moderate Assistance,Verbal Cues Forward with emphasis on reciprocal gait pattern Water Level Chest Level Level of Assistance Standby Assistance,Contact Guard Assistance,Minimal Assistance,Verbal Cues Comments wetvest, sm float on LUE, #3. 75 ankle wt on LLE start stop walking forward and backward Water Level Chest Level Walking Equipment vest Level of Assistance Contact Guard Assistance, Verbal Cues Comments wetvest, sm float on LUE, #3. 75 ankle wt on LLE Sideways Water Level Chest Level Walking Equipment wet vest, UE float, #2.5 ankle wt Level of Assistance Standby Assistance,Contact Guard Assistance,Minimal Assistance,Verbal Cues Lower Extremity Exercises SL aquats Details HH on wall Body Position Standing Water Level Waist Level Equipment wetvest Reps/Duration 2x10 LLE Comments VC to extend knee knee extensions Details seated in lift chair Equipment Ankle Weight- 5.0# Reps/Duration 20 B Comments seated in lift SLS Details bracing LLE Body Position Standing Water Level Chest Level Equipment vest Reps/Duration 1 min marching at wall Water Level Chest Level Reps/Duration 2 min Comments opposite UE/LE tapping wall squats Body Position Standing Water Level Chest Level Reps/Duration 20x Lower Extremity Stretches adductors Comments seated in chair Gastroc Body Position Sitting Reps/Duration 2 x 45 sec B Comments manual assist hip flexors Details at wall Body Position Standing Water Level Waist Level Reps/Duration 2x45 Comments manually assisted HS Details at wall Body Position Sitting Water Level Waist Level Equipment wet vest Reps/Duration 2x45 Comments sitting in lift chair assisted Upper Extremity Exercises breastroke UE's Body Position Standing Water Level Chest Level Reps/Duration 3 min Comments during walking and deep water hor ab/ad Water Level Chest Level Comments during side walking, CGA Balance step ups Details step ups/down using boxes Body Position Standing Water Level Waist Level Equipment 8 boxes Comments mod verbal cues for coordination [place] Activities [place] Activities Bicycle,Cross Country Equipment wet vest, white noodle Duration 7 min Comments Guy and cues for vertical alignmernt. PT-OP-T Assessment and Plan Start: 09/17/19 18:00 Freq: Status: Active Protocol: Document 05/09/21 11:16 DCW (Rec: 05/09/21 11:58 DCW [id number]) Physical Therapy Assessment Assessment Summary Assessment Pt requests decreased frequency, at least until I get the breathing straightened out, as he feels his breathing is limiting his PT progress. Physical Therapy Plan Frequency and Duration Frequency of Treatment 1-2x/wk Duration of Treatment 3 months Plan of Care Start Date 04/28/21 Plan of Care End Date 07/29/21 Therapeutic Interventions Therapeutic Interventions Aquatic Therapy,Balance Training,Coordination Training ,Gait Training,Home Exercise Program,Manual Therapy, Neuromuscular Re-education, Patient/Caregiver Education, Self-Care/Home Management, Therapeutic Activities, Therapeutic Exercises Modalities Cold Pack/Ice Massage,Electric Stimulation,Hot Packs, Ultrasound Next Visit Focus/Plan Next Note Type Treatment Note Next Visit Plan SLS, visual scanning, increased activity tolerance
--- NOTE | 2021-05-16 12:01 | PT.OTN ---
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 (05/16/21) Pain in left leg (05/16/21) Pain in left lower leg (05/16/21) Other abnormalities of gait and mobility (05/16/21) Abnormal posture (05/16/21) Neurologic neglect syndrome (05/16/21) Physical Therapy Treatment Note PT-OP-A Visit Information Start: 09/17/19 18:00 Freq: Status: Active Protocol: Document 05/16/21 11:20 DCW (Rec: 05/16/21 12:00 DCW [id number]) Out-Patient Physical Therapy Visit Information Visit Information Visit Type Treatment Note Visit Start Time 11:20 Visit Stop Time 12:10 Total Visit Minutes 50 Visit Number 121 Number of ELECTRONIC SYSTEMS SECURITY ASSESSMENT Visits 0 Evaluation Information Evaluation Date 09/17/19 PT-OP-B Current Condition Start: 09/17/19 18:00 Freq: Status: Active Protocol: Document 09/17/19 12:00 DCW (Rec: 09/18/19 10:29 DCW [id number]) Current Condition History of Current Condition Onset Date 04/14/19 Current Complaints Hemiparesis secondary to CVA History of Current Condition Pt is a 69 year old male presenting to skilled outpatient physical therapy with left-side neglect, hemiparesis, loss of independence, and difficulty walking following an intraparenchymal hemorrhage on 04/14/19. Pt was transferred from [facility] to [facility], where a craniotomy was performed on 04/16/19. Pt completed 7 weeks of rehab/ recovery at [facility], and then underwent a second surgery on 06/26/19 to replace the skull fragment. Pt was then at an acute rehab facility 06/30-07/18/19, and since then has been receiving home health physical therapy. Pt presents today with limited left-sided function, left visual and physical neglect, difficulty with transfers, decreased activity tolerance, decreased gait, and many other secondary effects following his CVA. Pt has been working on ambulation with a vale walker with home health, and his states he has walked around 100' a few times, but always with a therapist, as she does not feel comfortable walking with him yet. Pt exclusively gets around at time of evaluation in a manual wheelchair. Pt's transfers have been going fairly well, with his caregivers performing CGA, however pt will occasionally need assistance with placement of his left UE and LE due to neglect. Pt's biggest complaint at the moment is leg pain, his reports they have tried PT, Massage, CBD il, Tylenol, Oxycodine, and Gabapentin, all with minimal benefit. Prior to CVA, pt was fully independent in all activities. Pt and have garegivers 8 hrs a day for assistance. Prior Treatments and Tests Craniotomy 04/16/19, Acute rehab, Skull fragment replacement 06/26/19, home health PT Prior Functional Status Baseline Function- ADL's Independent Baseline Function- Mobility Independent PT-OP-C Subjective Start: 09/17/19 18:00 Freq: Status: Active Protocol: Document 05/16/21 11:20 DCW (Rec: 05/16/21 12:01 DCW [id number]) OP-PT Subjective Patient Comments Patient Comments Pt reports he is struggling more today with the heat. PT-OP-D Balance Start: 08/04/20 14:14 Freq: Status: Active Protocol: Document 02/02/21 11:15 DCW (Rec: 02/02/21 11:56 DCW [id number]) Balance Tests Adler Balance Test Adler Balance Test Score 49/56 Adler Impairment Rating 1 to 19% Impaired (Score 45-55 ) Adler Balance Assessment Evaluation Sitting to Standing Ability Independent w/out Hands Unsupported Stance Safely- 2 minutes Sitting Unsupported, Feet on Floor Safely- 2 minutes Standing to Sitting Ability Safely, Minimal Hand Use Transfer Ability Safely, Minimal Hand Use Unsupported Stance- Eyes Closed Safely, 10 seconds Unsupported Stance- Eyes Open Independent, 1 minute Reaching Forward Standing Confidently, 10 inches Pick- Up Object From Floor Independent/Safe Look Behind Shoulder - Standing Shifts Weight Well Turning 360 Degrees Turns , < 4 secs Unsupported Stance, Alternating Feet on 4 Steps w/Supervision Stair Unsupported Tandem Stance Holds Tandem- 30 seconds Unilateral Leg Stance Lifts Leg/Unable to Hold Total Score Adler Total Score (out of 56 points) 49 Adler Impairment Rating 1 to 19% Impaired (Score 45-55 ) PT-OP-E Functional Tests Start: 05/04/20 15:15 Freq: Status: Active Protocol: Document 04/28/21 11:15 DCW (Rec: 04/28/21 11:58 DCW [id number]) Functional Tests 6 Minute Walk Test Distance 1408 Device Used none Comments 3.91 ft/sec Timed Up and Go (TUG) Score 8.36 seconds Comments 3-trial average (9.02, 8.46, 7 .60) TUG Impairment Rating 0% Impaired (Score 10) PT-OP-G Mobility & Gait Start: 09/17/19 18:00 Freq: Status: Active Protocol: Document 04/28/21 11:15 DCW (Rec: 04/28/21 11:58 DCW [id number]) OP Gait Assessment Gait Gait Assistance Required: Standby Assistance Distance (Feet) 1,408 Assistive Devices Assistive Device None Gait Deviations General Gait Pattern Antalgic,Ataxic,Flexed Trunk Factors Limiting Gait Function Factors Limiting Gait Function Abnormal Tonal Influences, Decreased Activity Tolerance, Decreased Sensation,Poor Safety Awareness,Respiratory Distress Stair Climbing Evaluation Evaluation Level of Assist On Stairs Standby Assistance Devices Stair Climbing Assistive Devices Right Railing Technique/Endurance Stair Climbing Direction Ascend and Descend Stair Climbing Technique Step Over Step Number of Steps Climbed 4 PT-OP-H Neuro Start: 09/17/19 18:00 Freq: Status: Active Protocol: Document 04/28/21 11:15 DCW (Rec: 04/28/21 11:58 DCW [id number]) Deep Tendon Reflex & Clonus Assessment Deep Tendon Reflex Left Achilles Deep Tendon Reflex 2+ Normal Left Patellar Deep Tendon Reflex 2+ Normal Ankle Clonus Left Clonus Assessment Sustained Muscle Tone Tone Assessment Left Lower Extremity Flexor Tone Description Mild Hypotonicity PT-OP-M Strength Start: 09/17/19 18:00 Freq: Status: Active Protocol: Document 04/28/21 11:15 DCW (Rec: 04/28/21 11:58 DCW [id number]) Hip Strength Hip Manual Muscle Testing Left Flexion (L2) 4+ Good+ Extension (S1) 5 Normal Abduction 4 Good Adduction 5 Normal External Rotation 4 Good Internal Rotation 4 Good Knee Strength Knee Manual Muscle Testing Left Flexion (S2) 4 Good Extension (L3) 5 Normal Ankle/Foot Strength Ankle and Foot Manual Muscle Testing Left Dorsiflexion (L4) 5 Normal Plantarflexion (S1) 4 Good Inversion 4 Good Eversion (S1) 4 Good PT-OP-Q Treatments Start: 09/17/19 18:00 Freq: Status: Active Protocol: Document 05/16/21 11:20 DCW (Rec: 05/16/21 12:00 DCW [id number]) Therapeutic Exercises Standing Exercises SLS Standing Exercise Name SLS Equipment Used rail Comments CGA Gait Training Gait Activity No AD Description No AD Device Used None Level of Assistance SBA Distance/Duration 950' x1 Comments VCs to promote heel-toe gait, extend left knee during stance phase Neuro Re-Education Treatment Balance Activities Ball Kick Details Ball kick to goal Comments Weight shift, SLS, Coordination Hurdles Details Hurdles Comments Min Ax1 Cone transfers Details Bending down ball pick-up from cone, kick cone over, ball toss to target PT-OP-R Modalities Start: 09/17/19 18:00 Freq: Status: Active Protocol: Document 05/16/21 11:20 DCW (Rec: 05/16/21 12:01 DCW [id number]) Electric Stimulation Electric Stimulation Interferential Current (IFC) Body Location L ant ankle Duration (Minutes) 15 Patient Position Sitting Combined With Heat/Cold Cold Pack PT-OP-S Aquatic Treatment Start: 09/17/19 18:00 Freq: Status: Active Protocol: Document 01/30/20 12:30 LJ (Rec: 01/30/20 14:54 LJ [id number]) Aquatics Treatment Pool Entry/Exit Pool Entry/Exit Method Lift Assistance Minimal Assistance Water Walking Slow motion Water Level Chest Level Walking Equipment wet vest, UE float, #2.5 ankle wt Level of Assistance Standby Assistance,Contact Guard Assistance,Moderate Assistance Comments emphasis on LLE extension stance phase January Water Level Chest Level Walking Equipment wet vest, UE float, #2.5 ankle wt Level of Assistance Standby Assistance,Contact Guard Assistance,Moderate Assistance,Verbal Cues Forward with emphasis on reciprocal gait pattern Water Level Chest Level Level of Assistance Standby Assistance,Contact Guard Assistance,Minimal Assistance,Verbal Cues Comments wetvest, sm float on LUE, #3. 75 ankle wt on LLE start stop walking forward and backward Water Level Chest Level Walking Equipment vest Level of Assistance Contact Guard Assistance, Verbal Cues Comments wetvest, sm float on LUE, #3. 75 ankle wt on LLE Sideways Water Level Chest Level Walking Equipment wet vest, UE float, #2.5 ankle wt Level of Assistance Standby Assistance,Contact Guard Assistance,Minimal Assistance,Verbal Cues Lower Extremity Exercises SL aquats Details HH on wall Body Position Standing Water Level Waist Level Equipment wetvest Reps/Duration 2x10 LLE Comments VC to extend knee knee extensions Details seated in lift chair Equipment Ankle Weight- 5.0# Reps/Duration 20 B Comments seated in lift SLS Details bracing LLE Body Position Standing Water Level Chest Level Equipment vest Reps/Duration 1 min marching at wall Water Level Chest Level Reps/Duration 2 min Comments opposite UE/LE tapping wall squats Body Position Standing Water Level Chest Level Reps/Duration 20x Lower Extremity Stretches adductors Comments seated in chair Gastroc Body Position Sitting Reps/Duration 2 x 45 sec B Comments manual assist hip flexors Details at wall Body Position Standing Water Level Waist Level Reps/Duration 2x45 Comments manually assisted HS Details at wall Body Position Sitting Water Level Waist Level Equipment wet vest Reps/Duration 2x45 Comments sitting in lift chair assisted Upper Extremity Exercises breastroke UE's Body Position Standing Water Level Chest Level Reps/Duration 3 min Comments during walking and deep water hor ab/ad Water Level Chest Level Comments during side walking, CGA Balance step ups Details step ups/down using boxes Body Position Standing Water Level Waist Level Equipment 8 boxes Comments mod verbal cues for coordination [place] Activities [place] Activities Bicycle,Cross Country Equipment wet vest, white noodle Duration 7 min Comments Guy and cues for vertical alignmernt. PT-OP-T Assessment and Plan Start: 09/17/19 18:00 Freq: Status: Active Protocol: Document 05/16/21 11:20 DCW (Rec: 05/16/21 12:00 DCW [id number]) Physical Therapy Assessment Impairments Impairments Activity Tolerance,Balance, Coordination,Functional Activities,Functional Mobility ,Gait,Pain,ROM,Sensation, Strength,Tone,Transfers Goals Six Impairment Decreased Static Balance Short Term Goal (STG) Pt to score <9 seconds on TUG STG Duration Met Jail Goal (LTG) NEW GOAL: Pt to score 53/56 on Adler Balance Scale LTG Duration 07/29/21 Five Impairment Pt uses R rail and step-over gait pattern ascending stairs Jail Goal (LTG) Pt to ascend/descend stairs independently without use of rail LTG Duration 07/29/21 - Improving Four Impairment Pt demonstrates strength impairment throughout left LE Jail Goal (LTG) Pt to display MMT >3+/5 through L LE LTG Duration Met Three Impairment Pt SBA for transfers and bed mobility d/t Left Neglect Jail Goal (LTG) Pt to demonstrate independent transfers and bed mobility with an ability to address left LE and UE 80% of the time LTG Duration Met Two Impairment Pt ambulates 280' CGA /s an AD Short Term Goal (STG) Pt to ambulate 400' SBA independently STG Duration Met Dough Mixing Machine Operator Goal (LTG) Pt to ambulate 800' during 6 MWT Independently without SBA LTG Duration 07/29/21 - Improving (1408' SBA ) One Impairment Pt does not have an appropriate home exercise program Short Term Goal (STG) Pt to be independent and compliant with an appropriate HEP STG Duration Met Assessment Summary Assessment Pt had a bit more difficulty today in standing, multiple instances of his left leg almost giving out, pt able to self-correct. Physical Therapy Plan Frequency and Duration Frequency of Treatment 1-2x/wk Duration of Treatment 3 months Plan of Care Start Date 04/28/21 Plan of Care End Date 07/29/21 Therapeutic Interventions Therapeutic Interventions Aquatic Therapy,Balance Training,Coordination Training ,Gait Training,Home Exercise Program,Manual Therapy, Neuromuscular Re-education, Patient/Caregiver Education, Self-Care/Home Management, Therapeutic Activities, Therapeutic Exercises Modalities Cold Pack/Ice Massage,Electric Stimulation,Hot Packs, Ultrasound Next Visit Focus/Plan Next Note Type Treatment Note Next Visit Plan SLS, visual scanning, increased activity tolerance
--- NOTE | 2021-05-30 15:17 | PT.OTN ---
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) Physical Therapy Treatment Note PT-OP-A Visit Information Start: 09/17/19 18:00 Freq: Status: Active Protocol: Document 05/30/21 14:30 DCW (Rec: 05/30/21 15:16 DCW [id number]) Out-Patient Physical Therapy Visit Information Visit Information Visit Type Treatment Note Visit Start Time 14:30 Visit Stop Time 15:25 Total Visit Minutes 55 Visit Number 122 Number of FINANCIAL PROCESSING CLERK Visits 0 Evaluation Information Evaluation Date 09/17/19 PT-OP-B Current Condition Start: 09/17/19 18:00 Freq: Status: Active Protocol: Document 09/17/19 12:00 DCW (Rec: 09/18/19 10:29 DCW [id number]) Current Condition History of Current Condition Onset Date 04/14/19 Current Complaints Hemiparesis secondary to CVA History of Current Condition Pt is a 69 year old male presenting to skilled outpatient physical therapy with left-side neglect, hemiparesis, loss of independence, and difficulty walking following an intraparenchymal hemorrhage on 04/14/19. Pt was transferred from [facility] to [facility], where a craniotomy was performed on 04/16/19. Pt completed 7 weeks of rehab/ recovery at [facility], and then underwent a second surgery on 06/26/19 to replace the skull fragment. Pt was then at an acute rehab facility 06/30-07/18/19, and since then has been receiving home health physical therapy. Pt presents today with limited left-sided function, left visual and physical neglect, difficulty with transfers, decreased activity tolerance, decreased gait, and many other secondary effects following his CVA. Pt has been working on ambulation with a vale walker with home health, and his states he has walked around 100' a few times, but always with a therapist, as she does not feel comfortable walking with him yet. Pt exclusively gets around at time of evaluation in a manual wheelchair. Pt's transfers have been going fairly well, with his caregivers performing CGA, however pt will occasionally need assistance with placement of his left UE and LE due to neglect. Pt's biggest complaint at the moment is leg pain, his reports they have tried PT, Massage, CBD il, Tylenol, Oxycodine, and Gabapentin, all with minimal benefit. Prior to CVA, pt was fully independent in all activities. Pt and have garegivers 8 hrs a day for assistance. Prior Treatments and Tests Craniotomy 04/16/19, Acute rehab, Skull fragment replacement 06/26/19, home health PT Prior Functional Status Baseline Function- ADL's Independent Baseline Function- Mobility Independent PT-OP-C Subjective Start: 09/17/19 18:00 Freq: Status: Active Protocol: Document 05/30/21 14:30 DCW (Rec: 05/30/21 15:16 DCW [id number]) OP-PT Subjective Patient Comments Patient Comments Per , he's been walking at home a tiny bit. PT-OP-D Balance Start: 08/04/20 14:14 Freq: Status: Active Protocol: Document 02/02/21 11:15 DCW (Rec: 02/02/21 11:56 DCW [id number]) Balance Tests Adler Balance Test Adler Balance Test Score 49/56 Adler Impairment Rating 1 to 19% Impaired (Score 45-55 ) Adler Balance Assessment Evaluation Sitting to Standing Ability Independent w/out Hands Unsupported Stance Safely- 2 minutes Sitting Unsupported, Feet on Floor Safely- 2 minutes Standing to Sitting Ability Safely, Minimal Hand Use Transfer Ability Safely, Minimal Hand Use Unsupported Stance- Eyes Closed Safely, 10 seconds Unsupported Stance- Eyes Open Independent, 1 minute Reaching Forward Standing Confidently, 10 inches Pick- Up Object From Floor Independent/Safe Look Behind Shoulder - Standing Shifts Weight Well Turning 360 Degrees Turns , < 4 secs Unsupported Stance, Alternating Feet on 4 Steps w/Supervision Stair Unsupported Tandem Stance Holds Tandem- 30 seconds Unilateral Leg Stance Lifts Leg/Unable to Hold Total Score Adler Total Score (out of 56 points) 49 Adler Impairment Rating 1 to 19% Impaired (Score 45-55 ) PT-OP-E Functional Tests Start: 05/04/20 15:15 Freq: Status: Active Protocol: Document 04/28/21 11:15 DCW (Rec: 04/28/21 11:58 DCW [id number]) Functional Tests 6 Minute Walk Test Distance 1408 Device Used none Comments 3.91 ft/sec Timed Up and Go (TUG) Score 8.36 seconds Comments 3-trial average (9.02, 8.46, 7 .60) TUG Impairment Rating 0% Impaired (Score 10) PT-OP-G Mobility & Gait Start: 09/17/19 18:00 Freq: Status: Active Protocol: Document 04/28/21 11:15 DCW (Rec: 04/28/21 11:58 DCW [id number]) OP Gait Assessment Gait Gait Assistance Required: Standby Assistance Distance (Feet) 1,408 Assistive Devices Assistive Device None Gait Deviations General Gait Pattern Antalgic,Ataxic,Flexed Trunk Factors Limiting Gait Function Factors Limiting Gait Function Abnormal Tonal Influences, Decreased Activity Tolerance, Decreased Sensation,Poor Safety Awareness,Respiratory Distress Stair Climbing Evaluation Evaluation Level of Assist On Stairs Standby Assistance Devices Stair Climbing Assistive Devices Right Railing Technique/Endurance Stair Climbing Direction Ascend and Descend Stair Climbing Technique Step Over Step Number of Steps Climbed 4 PT-OP-H Neuro Start: 09/17/19 18:00 Freq: Status: Active Protocol: Document 04/28/21 11:15 DCW (Rec: 04/28/21 11:58 DCW [id number]) Deep Tendon Reflex & Clonus Assessment Deep Tendon Reflex Left Achilles Deep Tendon Reflex 2+ Normal Left Patellar Deep Tendon Reflex 2+ Normal Ankle Clonus Left Clonus Assessment Sustained Muscle Tone Tone Assessment Left Lower Extremity Flexor Tone Description Mild Hypotonicity PT-OP-M Strength Start: 09/17/19 18:00 Freq: Status: Active Protocol: Document 04/28/21 11:15 DCW (Rec: 04/28/21 11:58 DCW [id number]) Hip Strength Hip Manual Muscle Testing Left Flexion (L2) 4+ Good+ Extension (S1) 5 Normal Abduction 4 Good Adduction 5 Normal External Rotation 4 Good Internal Rotation 4 Good Knee Strength Knee Manual Muscle Testing Left Flexion (S2) 4 Good Extension (L3) 5 Normal Ankle/Foot Strength Ankle and Foot Manual Muscle Testing Left Dorsiflexion (L4) 5 Normal Plantarflexion (S1) 4 Good Inversion 4 Good Eversion (S1) 4 Good PT-OP-Q Treatments Start: 09/17/19 18:00 Freq: Status: Active Protocol: Document 05/30/21 14:30 DCW (Rec: 05/30/21 15:16 DCW [id number]) Gym Equipment Shuttle Balance Red Details Wide SRIDEVI, Staggered Comments Min Ax1 Therapeutic Exercises Standing Exercises Hamstring Curl Standing Exercise Name HS Curl Side bilateral Resistance 10# SLS Standing Exercise Name SLS Equipment Used rail Comments CGA Gait Training Gait Activity No AD Description No AD Device Used None Level of Assistance SBA Distance/Duration 950' x1 Comments VCs to promote heel-toe gait, extend left knee during stance phase Neuro Re-Education Treatment Balance Activities Hurdles Details Hurdles Comments Min Ax1 Cone transfers Details Bending down ball pick-up from cone, kick cone over, ball toss to target PT-OP-R Modalities Start: 09/17/19 18:00 Freq: Status: Active Protocol: Document 05/30/21 14:30 DCW (Rec: 05/30/21 15:16 DCW [id number]) Electric Stimulation Electric Stimulation Interferential Current (IFC) Body Location L ant ankle Duration (Minutes) 15 Patient Position Sitting Combined With Heat/Cold Cold Pack PT-OP-S Aquatic Treatment Start: 09/17/19 18:00 Freq: Status: Active Protocol: Document 01/30/20 12:30 LJ (Rec: 01/30/20 14:54 LJ [id number]) Aquatics Treatment Pool Entry/Exit Pool Entry/Exit Method Lift Assistance Minimal Assistance Water Walking Slow motion Water Level Chest Level Walking Equipment wet vest, UE float, #2.5 ankle wt Level of Assistance Standby Assistance,Contact Guard Assistance,Moderate Assistance Comments emphasis on LLE extension stance phase January Water Level Chest Level Walking Equipment wet vest, UE float, #2.5 ankle wt Level of Assistance Standby Assistance,Contact Guard Assistance,Moderate Assistance,Verbal Cues Forward with emphasis on reciprocal gait pattern Water Level Chest Level Level of Assistance Standby Assistance,Contact Guard Assistance,Minimal Assistance,Verbal Cues Comments wetvest, sm float on LUE, #3. 75 ankle wt on LLE start stop walking forward and backward Water Level Chest Level Walking Equipment vest Level of Assistance Contact Guard Assistance, Verbal Cues Comments wetvest, sm float on LUE, #3. 75 ankle wt on LLE Sideways Water Level Chest Level Walking Equipment wet vest, UE float, #2.5 ankle wt Level of Assistance Standby Assistance,Contact Guard Assistance,Minimal Assistance,Verbal Cues Lower Extremity Exercises SL aquats Details HH on wall Body Position Standing Water Level Waist Level Equipment wetvest Reps/Duration 2x10 LLE Comments VC to extend knee knee extensions Details seated in lift chair Equipment Ankle Weight- 5.0# Reps/Duration 20 B Comments seated in lift SLS Details bracing LLE Body Position Standing Water Level Chest Level Equipment vest Reps/Duration 1 min marching at wall Water Level Chest Level Reps/Duration 2 min Comments opposite UE/LE tapping wall squats Body Position Standing Water Level Chest Level Reps/Duration 20x Lower Extremity Stretches adductors Comments seated in chair Gastroc Body Position Sitting Reps/Duration 2 x 45 sec B Comments manual assist hip flexors Details at wall Body Position Standing Water Level Waist Level Reps/Duration 2x45 Comments manually assisted HS Details at wall Body Position Sitting Water Level Waist Level Equipment wet vest Reps/Duration 2x45 Comments sitting in lift chair assisted Upper Extremity Exercises breastroke UE's Body Position Standing Water Level Chest Level Reps/Duration 3 min Comments during walking and deep water hor ab/ad Water Level Chest Level Comments during side walking, CGA Balance step ups Details step ups/down using boxes Body Position Standing Water Level Waist Level Equipment 8 boxes Comments mod verbal cues for coordination [place] Activities [place] Activities Bicycle,Cross Country Equipment wet vest, white noodle Duration 7 min Comments Guy and cues for vertical alignmernt. PT-OP-T Assessment and Plan Start: 09/17/19 18:00 Freq: Status: Active Protocol: Document 05/30/21 14:30 DCW (Rec: 05/30/21 15:16 DCW [id number]) Physical Therapy Assessment Impairments Impairments Activity Tolerance,Balance, Coordination,Functional Activities,Functional Mobility ,Gait,Pain,ROM,Sensation, Strength,Tone,Transfers Goals Six Impairment Decreased Static Balance Short Term Goal (STG) Pt to score <9 seconds on TUG STG Duration Met [facility] Goal (LTG) NEW GOAL: Pt to score 53/56 on Adler Balance Scale LTG Duration 07/29/21 Five Impairment Pt uses R rail and step-over gait pattern ascending stairs Data Deliverables Manager Goal (LTG) Pt to ascend/descend stairs independently without use of rail LTG Duration 07/29/21 - Improving Four Impairment Pt demonstrates strength impairment throughout left LE [facility] Goal (LTG) Pt to display MMT >3+/5 through L LE LTG Duration Met Three Impairment Pt SBA for transfers and bed mobility d/t Left Neglect [facility] Goal (LTG) Pt to demonstrate independent transfers and bed mobility with an ability to address left LE and UE 80% of the time LTG Duration Met Two Impairment Pt ambulates 280' CGA /s an AD Short Term Goal (STG) Pt to ambulate 400' SBA independently STG Duration Met [facility] Goal (LTG) Pt to ambulate 800' during 6 MWT Independently without SBA LTG Duration 07/29/21 - Improving (1408' SBA ) One Impairment Pt does not have an appropriate home exercise program Short Term Goal (STG) Pt to be independent and compliant with an appropriate HEP STG Duration Met Assessment Summary Assessment Pt performed very well today with all activities, performed hurdles potentially the best since beginning therapy. Physical Therapy Plan Frequency and Duration Frequency of Treatment 1-2x/wk Duration of Treatment 3 months Plan of Care Start Date 04/28/21 Plan of Care End Date 07/29/21 Therapeutic Interventions Therapeutic Interventions Aquatic Therapy,Balance Training,Coordination Training ,Gait Training,Home Exercise Program,Manual Therapy, Neuromuscular Re-education, Patient/Caregiver Education, Self-Care/Home Management, Therapeutic Activities, Therapeutic Exercises Modalities Cold Pack/Ice Massage,Electric Stimulation,Hot Packs, Ultrasound Next Visit Focus/Plan Next Note Type Treatment Note Next Visit Plan SLS, visual scanning, increased activity tolerance
--- NOTE | 2021-06-06 11:58 | PT.OTN ---
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) Physical Therapy Treatment Note PT-OP-A Visit Information Start: 09/17/19 18:00 Freq: Status: Active Protocol: Document 06/06/21 11:18 DCW (Rec: 06/06/21 11:58 DCW [id number]) Out-Patient Physical Therapy Visit Information Visit Information Visit Type Treatment Note Visit Start Time 11:18 Visit Stop Time 12:11 Total Visit Minutes 53 Visit Number 123 Number of MICROWAVE RADIO TECHNICIAN Visits 0 Evaluation Information Evaluation Date 09/17/19 PT-OP-B Current Condition Start: 09/17/19 18:00 Freq: Status: Active Protocol: Document 09/17/19 12:00 DCW (Rec: 09/18/19 10:29 DCW [id number]) Current Condition History of Current Condition Onset Date 04/14/19 Current Complaints Hemiparesis secondary to CVA History of Current Condition Pt is a 69 year old male presenting to skilled outpatient physical therapy with left-side neglect, hemiparesis, loss of independence, and difficulty walking following an intraparenchymal hemorrhage on 04/14/19. Pt was transferred from [facility] to [facility], where a craniotomy was performed on 04/16/19. Pt completed 7 weeks of rehab/ recovery at [facility], and then underwent a second surgery on 06/26/19 to replace the skull fragment. Pt was then at an acute rehab facility 06/30-07/18/19, and since then has been receiving home health physical therapy. Pt presents today with limited left-sided function, left visual and physical neglect, difficulty with transfers, decreased activity tolerance, decreased gait, and many other secondary effects following his CVA. Pt has been working on ambulation with a vale walker with home health, and his states he has walked around 100' a few times, but always with a therapist, as she does not feel comfortable walking with him yet. Pt exclusively gets around at time of evaluation in a manual wheelchair. Pt's transfers have been going fairly well, with his caregivers performing CGA, however pt will occasionally need assistance with placement of his left UE and LE due to neglect. Pt's biggest complaint at the moment is leg pain, his reports they have tried PT, Massage, CBD il, Tylenol, Oxycodine, and Gabapentin, all with minimal benefit. Prior to CVA, pt was fully independent in all activities. Pt and have garegivers 8 hrs a day for assistance. Prior Treatments and Tests Craniotomy 04/16/19, Acute rehab, Skull fragment replacement 06/26/19, home health PT Prior Functional Status Baseline Function- ADL's Independent Baseline Function- Mobility Independent PT-OP-C Subjective Start: 09/17/19 18:00 Freq: Status: Active Protocol: Document 06/06/21 11:18 DCW (Rec: 06/06/21 11:58 DCW [id number]) OP-PT Subjective Patient Comments Patient Comments I'm walking in the house now, not using the chair, or at least using the chair a lot less. PT-OP-D Balance Start: 08/04/20 14:14 Freq: Status: Active Protocol: Document 02/02/21 11:15 DCW (Rec: 02/02/21 11:56 DCW [id number]) Balance Tests Adler Balance Test Adler Balance Test Score 49/56 Adler Impairment Rating 1 to 19% Impaired (Score 45-55 ) Adler Balance Assessment Evaluation Sitting to Standing Ability Independent w/out Hands Unsupported Stance Safely- 2 minutes Sitting Unsupported, Feet on Floor Safely- 2 minutes Standing to Sitting Ability Safely, Minimal Hand Use Transfer Ability Safely, Minimal Hand Use Unsupported Stance- Eyes Closed Safely, 10 seconds Unsupported Stance- Eyes Open Independent, 1 minute Reaching Forward Standing Confidently, 10 inches Pick- Up Object From Floor Independent/Safe Look Behind Shoulder - Standing Shifts Weight Well Turning 360 Degrees Turns , < 4 secs Unsupported Stance, Alternating Feet on 4 Steps w/Supervision Stair Unsupported Tandem Stance Holds Tandem- 30 seconds Unilateral Leg Stance Lifts Leg/Unable to Hold Total Score Adler Total Score (out of 56 points) 49 Adler Impairment Rating 1 to 19% Impaired (Score 45-55 ) PT-OP-E Functional Tests Start: 05/04/20 15:15 Freq: Status: Active Protocol: Document 04/28/21 11:15 DCW (Rec: 04/28/21 11:58 DCW [id number]) Functional Tests 6 Minute Walk Test Distance 1408 Device Used none Comments 3.91 ft/sec Timed Up and Go (TUG) Score 8.36 seconds Comments 3-trial average (9.02, 8.46, 7 .60) TUG Impairment Rating 0% Impaired (Score 10) PT-OP-G Mobility & Gait Start: 09/17/19 18:00 Freq: Status: Active Protocol: Document 04/28/21 11:15 DCW (Rec: 04/28/21 11:58 DCW [id number]) OP Gait Assessment Gait Gait Assistance Required: Standby Assistance Distance (Feet) 1,408 Assistive Devices Assistive Device None Gait Deviations General Gait Pattern Antalgic,Ataxic,Flexed Trunk Factors Limiting Gait Function Factors Limiting Gait Function Abnormal Tonal Influences, Decreased Activity Tolerance, Decreased Sensation,Poor Safety Awareness,Respiratory Distress Stair Climbing Evaluation Evaluation Level of Assist On Stairs Standby Assistance Devices Stair Climbing Assistive Devices Right Railing Technique/Endurance Stair Climbing Direction Ascend and Descend Stair Climbing Technique Step Over Step Number of Steps Climbed 4 PT-OP-H Neuro Start: 09/17/19 18:00 Freq: Status: Active Protocol: Document 04/28/21 11:15 DCW (Rec: 04/28/21 11:58 DCW [id number]) Deep Tendon Reflex & Clonus Assessment Deep Tendon Reflex Left Achilles Deep Tendon Reflex 2+ Normal Left Patellar Deep Tendon Reflex 2+ Normal Ankle Clonus Left Clonus Assessment Sustained Muscle Tone Tone Assessment Left Lower Extremity Flexor Tone Description Mild Hypotonicity PT-OP-M Strength Start: 09/17/19 18:00 Freq: Status: Active Protocol: Document 04/28/21 11:15 DCW (Rec: 04/28/21 11:58 DCW [id number]) Hip Strength Hip Manual Muscle Testing Left Flexion (L2) 4+ Good+ Extension (S1) 5 Normal Abduction 4 Good Adduction 5 Normal External Rotation 4 Good Internal Rotation 4 Good Knee Strength Knee Manual Muscle Testing Left Flexion (S2) 4 Good Extension (L3) 5 Normal Ankle/Foot Strength Ankle and Foot Manual Muscle Testing Left Dorsiflexion (L4) 5 Normal Plantarflexion (S1) 4 Good Inversion 4 Good Eversion (S1) 4 Good PT-OP-Q Treatments Start: 09/17/19 18:00 Freq: Status: Active Protocol: Document 06/06/21 11:18 DCW (Rec: 06/06/21 11:58 DCW [id number]) Gym Equipment Shuttle Recovery Unilateral Heel Raises Details Left Resistance 25# Reps/Time calf stretch at end Unilateral Squats Details Left Resistance 62# Shuttle Recovery Platform Stable Bilateral Squats Resistance 100# Shuttle Recovery Platform Stable Reps/Time x50 Shuttle Balance Red Details Wide SRIDEVI, Staggered Comments Min Ax1 Gait Training Gait Activity No AD Description No AD Device Used None Level of Assistance SBA Distance/Duration 900' x1 Comments VCs to promote heel-toe gait, extend left knee during stance phase Neuro Re-Education Treatment Balance Activities Hurdles Details Hurdles Comments Min Ax1 Cone transfers Details Bending down ball pick-up from cone, kick cone over, ball toss to target PT-OP-R Modalities Start: 09/17/19 18:00 Freq: Status: Active Protocol: Document 06/06/21 11:18 DCW (Rec: 06/06/21 11:58 DCW [id number]) Electric Stimulation Electric Stimulation Interferential Current (IFC) Body Location L ant ankle Duration (Minutes) 15 Patient Position Sitting Combined With Heat/Cold Cold Pack PT-OP-S Aquatic Treatment Start: 09/17/19 18:00 Freq: Status: Active Protocol: Document 01/30/20 12:30 LJ (Rec: 01/30/20 14:54 LJ [id number]) Aquatics Treatment Pool Entry/Exit Pool Entry/Exit Method Lift Assistance Minimal Assistance Water Walking Slow motion Water Level Chest Level Walking Equipment wet vest, UE float, #2.5 ankle wt Level of Assistance Standby Assistance,Contact Guard Assistance,Moderate Assistance Comments emphasis on LLE extension stance phase January Water Level Chest Level Walking Equipment wet vest, UE float, #2.5 ankle wt Level of Assistance Standby Assistance,Contact Guard Assistance,Moderate Assistance,Verbal Cues Forward with emphasis on reciprocal gait pattern Water Level Chest Level Level of Assistance Standby Assistance,Contact Guard Assistance,Minimal Assistance,Verbal Cues Comments wetvest, sm float on LUE, #3. 75 ankle wt on LLE start stop walking forward and backward Water Level Chest Level Walking Equipment vest Level of Assistance Contact Guard Assistance, Verbal Cues Comments wetvest, sm float on LUE, #3. 75 ankle wt on LLE Sideways Water Level Chest Level Walking Equipment wet vest, UE float, #2.5 ankle wt Level of Assistance Standby Assistance,Contact Guard Assistance,Minimal Assistance,Verbal Cues Lower Extremity Exercises SL aquats Details HH on wall Body Position Standing Water Level Waist Level Equipment wetvest Reps/Duration 2x10 LLE Comments VC to extend knee knee extensions Details seated in lift chair Equipment Ankle Weight- 5.0# Reps/Duration 20 B Comments seated in lift SLS Details bracing LLE Body Position Standing Water Level Chest Level Equipment vest Reps/Duration 1 min marching at wall Water Level Chest Level Reps/Duration 2 min Comments opposite UE/LE tapping wall squats Body Position Standing Water Level Chest Level Reps/Duration 20x Lower Extremity Stretches adductors Comments seated in chair Gastroc Body Position Sitting Reps/Duration 2 x 45 sec B Comments manual assist hip flexors Details at wall Body Position Standing Water Level Waist Level Reps/Duration 2x45 Comments manually assisted HS Details at wall Body Position Sitting Water Level Waist Level Equipment wet vest Reps/Duration 2x45 Comments sitting in lift chair assisted Upper Extremity Exercises breastroke UE's Body Position Standing Water Level Chest Level Reps/Duration 3 min Comments during walking and deep water hor ab/ad Water Level Chest Level Comments during side walking, CGA Balance step ups Details step ups/down using boxes Body Position Standing Water Level Waist Level Equipment 8 boxes Comments mod verbal cues for coordination [place] Activities [place] Activities Bicycle,Cross Country Equipment wet vest, white noodle Duration 7 min Comments Guy and cues for vertical alignmernt. PT-OP-T Assessment and Plan Start: 09/17/19 18:00 Freq: Status: Active Protocol: Document 06/06/21 11:18 DCW (Rec: 06/06/21 11:58 DCW [id number]) Physical Therapy Assessment Impairments Impairments Activity Tolerance,Balance, Coordination,Functional Activities,Functional Mobility ,Gait,Pain,ROM,Sensation, Strength,Tone,Transfers Goals Six Impairment Decreased Static Balance Short Term Goal (STG) Pt to score <9 seconds on TUG STG Duration Met Logistics Project Manager Goal (LTG) NEW GOAL: Pt to score 53/56 on Adler Balance Scale LTG Duration 07/29/21 Five Impairment Pt uses R rail and step-over gait pattern ascending stairs Logistics Project Manager Goal (LTG) Pt to ascend/descend stairs independently without use of rail LTG Duration 07/29/21 - Improving Four Impairment Pt demonstrates strength impairment throughout left LE Group Home Goal (LTG) Pt to display MMT >3+/5 through L LE LTG Duration Met Three Impairment Pt SBA for transfers and bed mobility d/t Left Neglect Logistics Project Manager Goal (LTG) Pt to demonstrate independent transfers and bed mobility with an ability to address left LE and UE 80% of the time LTG Duration Met Two Impairment Pt ambulates 280' CGA /s an AD Short Term Goal (STG) Pt to ambulate 400' SBA independently STG Duration Met Group Home Goal (LTG) Pt to ambulate 800' during 6 MWT Independently without SBA LTG Duration 07/29/21 - Improving (1408' SBA ) One Impairment Pt does not have an appropriate home exercise program Short Term Goal (STG) Pt to be independent and compliant with an appropriate HEP STG Duration Met Assessment Summary Assessment Pt had some increased complaints of back pain today, but overall did very well. Physical Therapy Plan Frequency and Duration Frequency of Treatment 1-2x/wk Duration of Treatment 3 months Plan of Care Start Date 04/28/21 Plan of Care End Date 07/29/21 Therapeutic Interventions Therapeutic Interventions Aquatic Therapy,Balance Training,Coordination Training ,Gait Training,Home Exercise Program,Manual Therapy, Neuromuscular Re-education, Patient/Caregiver Education, Self-Care/Home Management, Therapeutic Activities, Therapeutic Exercises Modalities Cold Pack/Ice Massage,Electric Stimulation,Hot Packs, Ultrasound Next Visit Focus/Plan Next Note Type Treatment Note Next Visit Plan SLS, visual scanning, increased activity tolerance
--- NOTE | 2021-06-13 12:00 | PT.OTN ---
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) Physical Therapy Treatment Note PT-OP-A Visit Information Start: 09/17/19 18:00 Freq: Status: Active Protocol: Document 06/13/21 11:15 DCW (Rec: 06/13/21 12:00 DCW [id number]) Out-Patient Physical Therapy Visit Information Visit Information Visit Type Treatment Note Visit Start Time 11:15 Visit Stop Time 12:10 Total Visit Minutes 55 Visit Number 124 Number of HAT TRIMMER Visits 0 Evaluation Information Evaluation Date 09/17/19 PT-OP-B Current Condition Start: 09/17/19 18:00 Freq: Status: Active Protocol: Document 09/17/19 12:00 DCW (Rec: 09/18/19 10:29 DCW [id number]) Current Condition History of Current Condition Onset Date 04/14/19 Current Complaints Hemiparesis secondary to CVA History of Current Condition Pt is a 69 year old male presenting to skilled outpatient physical therapy with left-side neglect, hemiparesis, loss of independence, and difficulty walking following an intraparenchymal hemorrhage on 04/14/19. Pt was transferred from [facility] to [facility], where a craniotomy was performed on 04/16/19. Pt completed 7 weeks of rehab/ recovery at [facility], and then underwent a second surgery on 06/26/19 to replace the skull fragment. Pt was then at an acute rehab facility 06/30-07/18/19, and since then has been receiving home health physical therapy. Pt presents today with limited left-sided function, left visual and physical neglect, difficulty with transfers, decreased activity tolerance, decreased gait, and many other secondary effects following his CVA. Pt has been working on ambulation with a vale walker with home health, and his states he has walked around 100' a few times, but always with a therapist, as she does not feel comfortable walking with him yet. Pt exclusively gets around at time of evaluation in a manual wheelchair. Pt's transfers have been going fairly well, with his caregivers performing CGA, however pt will occasionally need assistance with placement of his left UE and LE due to neglect. Pt's biggest complaint at the moment is leg pain, his reports they have tried PT, Massage, CBD il, Tylenol, Oxycodine, and Gabapentin, all with minimal benefit. Prior to CVA, pt was fully independent in all activities. Pt and have garegivers 8 hrs a day for assistance. Prior Treatments and Tests Craniotomy 04/16/19, Acute rehab, Skull fragment replacement 06/26/19, home health PT Prior Functional Status Baseline Function- ADL's Independent Baseline Function- Mobility Independent PT-OP-C Subjective Start: 09/17/19 18:00 Freq: Status: Active Protocol: Document 06/13/21 11:15 DCW (Rec: 06/13/21 12:00 DCW [id number]) OP-PT Subjective Patient Comments Patient Comments Pt notes his back is a little sore today. PT-OP-D Balance Start: 08/04/20 14:14 Freq: Status: Active Protocol: Document 02/02/21 11:15 DCW (Rec: 02/02/21 11:56 DCW [id number]) Balance Tests Adler Balance Test Adler Balance Test Score 49/56 Adler Impairment Rating 1 to 19% Impaired (Score 45-55 ) Adler Balance Assessment Evaluation Sitting to Standing Ability Independent w/out Hands Unsupported Stance Safely- 2 minutes Sitting Unsupported, Feet on Floor Safely- 2 minutes Standing to Sitting Ability Safely, Minimal Hand Use Transfer Ability Safely, Minimal Hand Use Unsupported Stance- Eyes Closed Safely, 10 seconds Unsupported Stance- Eyes Open Independent, 1 minute Reaching Forward Standing Confidently, 10 inches Pick- Up Object From Floor Independent/Safe Look Behind Shoulder - Standing Shifts Weight Well Turning 360 Degrees Turns , < 4 secs Unsupported Stance, Alternating Feet on 4 Steps w/Supervision Stair Unsupported Tandem Stance Holds Tandem- 30 seconds Unilateral Leg Stance Lifts Leg/Unable to Hold Total Score Adler Total Score (out of 56 points) 49 Adler Impairment Rating 1 to 19% Impaired (Score 45-55 ) PT-OP-E Functional Tests Start: 05/04/20 15:15 Freq: Status: Active Protocol: Document 04/28/21 11:15 DCW (Rec: 04/28/21 11:58 DCW [id number]) Functional Tests 6 Minute Walk Test Distance 1408 Device Used none Comments 3.91 ft/sec Timed Up and Go (TUG) Score 8.36 seconds Comments 3-trial average (9.02, 8.46, 7 .60) TUG Impairment Rating 0% Impaired (Score 10) PT-OP-G Mobility & Gait Start: 09/17/19 18:00 Freq: Status: Active Protocol: Document 04/28/21 11:15 DCW (Rec: 04/28/21 11:58 DCW [id number]) OP Gait Assessment Gait Gait Assistance Required: Standby Assistance Distance (Feet) 1,408 Assistive Devices Assistive Device None Gait Deviations General Gait Pattern Antalgic,Ataxic,Flexed Trunk Factors Limiting Gait Function Factors Limiting Gait Function Abnormal Tonal Influences, Decreased Activity Tolerance, Decreased Sensation,Poor Safety Awareness,Respiratory Distress Stair Climbing Evaluation Evaluation Level of Assist On Stairs Standby Assistance Devices Stair Climbing Assistive Devices Right Railing Technique/Endurance Stair Climbing Direction Ascend and Descend Stair Climbing Technique Step Over Step Number of Steps Climbed 4 PT-OP-H Neuro Start: 09/17/19 18:00 Freq: Status: Active Protocol: Document 04/28/21 11:15 DCW (Rec: 04/28/21 11:58 DCW [id number]) Deep Tendon Reflex & Clonus Assessment Deep Tendon Reflex Left Achilles Deep Tendon Reflex 2+ Normal Left Patellar Deep Tendon Reflex 2+ Normal Ankle Clonus Left Clonus Assessment Sustained Muscle Tone Tone Assessment Left Lower Extremity Flexor Tone Description Mild Hypotonicity PT-OP-M Strength Start: 09/17/19 18:00 Freq: Status: Active Protocol: Document 04/28/21 11:15 DCW (Rec: 04/28/21 11:58 DCW [id number]) Hip Strength Hip Manual Muscle Testing Left Flexion (L2) 4+ Good+ Extension (S1) 5 Normal Abduction 4 Good Adduction 5 Normal External Rotation 4 Good Internal Rotation 4 Good Knee Strength Knee Manual Muscle Testing Left Flexion (S2) 4 Good Extension (L3) 5 Normal Ankle/Foot Strength Ankle and Foot Manual Muscle Testing Left Dorsiflexion (L4) 5 Normal Plantarflexion (S1) 4 Good Inversion 4 Good Eversion (S1) 4 Good PT-OP-Q Treatments Start: 09/17/19 18:00 Freq: Status: Active Protocol: Document 06/13/21 11:15 DCW (Rec: 06/13/21 12:00 DCW [id number]) Cardio Equipment Treadmill Duration (Minutes) 10 Speed 1.8-2.3 Incline 0 Other 0.33 miles Neuro Re-Education Treatment Balance Activities Foam Details NBOS (EO/EC) Surface Guillaume foam Hurdles Details Hurdles Comments Min Ax1 Cone transfers Details Bending down ball pick-up from cone, kick cone over, ball toss to target PT-OP-R Modalities Start: 09/17/19 18:00 Freq: Status: Active Protocol: Document 06/13/21 11:15 DCW (Rec: 06/13/21 12:00 DCW [id number]) Electric Stimulation Electric Stimulation Interferential Current (IFC) Body Location L ant ankle Duration (Minutes) 15 Patient Position Sitting Combined With Heat/Cold Cold Pack PT-OP-S Aquatic Treatment Start: 09/17/19 18:00 Freq: Status: Active Protocol: Document 01/30/20 12:30 LJ (Rec: 01/30/20 14:54 LJ [id number]) Aquatics Treatment Pool Entry/Exit Pool Entry/Exit Method Lift Assistance Minimal Assistance Water Walking Slow motion Water Level Chest Level Walking Equipment wet vest, UE float, #2.5 ankle wt Level of Assistance Standby Assistance,Contact Guard Assistance,Moderate Assistance Comments emphasis on LLE extension stance phase January Water Level Chest Level Walking Equipment wet vest, UE float, #2.5 ankle wt Level of Assistance Standby Assistance,Contact Guard Assistance,Moderate Assistance,Verbal Cues Forward with emphasis on reciprocal gait pattern Water Level Chest Level Level of Assistance Standby Assistance,Contact Guard Assistance,Minimal Assistance,Verbal Cues Comments wetvest, sm float on LUE, #3. 75 ankle wt on LLE start stop walking forward and backward Water Level Chest Level Walking Equipment vest Level of Assistance Contact Guard Assistance, Verbal Cues Comments wetvest, sm float on LUE, #3. 75 ankle wt on LLE Sideways Water Level Chest Level Walking Equipment wet vest, UE float, #2.5 ankle wt Level of Assistance Standby Assistance,Contact Guard Assistance,Minimal Assistance,Verbal Cues Lower Extremity Exercises SL aquats Details HH on wall Body Position Standing Water Level Waist Level Equipment wetvest Reps/Duration 2x10 LLE Comments VC to extend knee knee extensions Details seated in lift chair Equipment Ankle Weight- 5.0# Reps/Duration 20 B Comments seated in lift SLS Details bracing LLE Body Position Standing Water Level Chest Level Equipment vest Reps/Duration 1 min marching at wall Water Level Chest Level Reps/Duration 2 min Comments opposite UE/LE tapping wall squats Body Position Standing Water Level Chest Level Reps/Duration 20x Lower Extremity Stretches adductors Comments seated in chair Gastroc Body Position Sitting Reps/Duration 2 x 45 sec B Comments manual assist hip flexors Details at wall Body Position Standing Water Level Waist Level Reps/Duration 2x45 Comments manually assisted HS Details at wall Body Position Sitting Water Level Waist Level Equipment wet vest Reps/Duration 2x45 Comments sitting in lift chair assisted Upper Extremity Exercises breastroke UE's Body Position Standing Water Level Chest Level Reps/Duration 3 min Comments during walking and deep water hor ab/ad Water Level Chest Level Comments during side walking, CGA Balance step ups Details step ups/down using boxes Body Position Standing Water Level Waist Level Equipment 8 boxes Comments mod verbal cues for coordination [place] Activities [place] Activities Bicycle,Cross Country Equipment wet vest, white noodle Duration 7 min Comments Guy and cues for vertical alignmernt. PT-OP-T Assessment and Plan Start: 09/17/19 18:00 Freq: Status: Active Protocol: Document 06/13/21 11:15 DCW (Rec: 06/13/21 12:00 DCW [id number]) Physical Therapy Assessment Impairments Impairments Activity Tolerance,Balance, Coordination,Functional Activities,Functional Mobility ,Gait,Pain,ROM,Sensation, Strength,Tone,Transfers Goals Six Impairment Decreased Static Balance Short Term Goal (STG) Pt to score <9 seconds on TUG STG Duration Met Assistant Housekeeping Manager Goal (LTG) NEW GOAL: Pt to score 53/56 on Adler Balance Scale LTG Duration 07/29/21 Five Impairment Pt uses R rail and step-over gait pattern ascending stairs Detention Goal (LTG) Pt to ascend/descend stairs independently without use of rail LTG Duration 07/29/21 - Improving Four Impairment Pt demonstrates strength impairment throughout left LE Detention Goal (LTG) Pt to display MMT >3+/5 through L LE LTG Duration Met Three Impairment Pt SBA for transfers and bed mobility d/t Left Neglect Assistant Housekeeping Manager Goal (LTG) Pt to demonstrate independent transfers and bed mobility with an ability to address left LE and UE 80% of the time LTG Duration Met Two Impairment Pt ambulates 280' CGA /s an AD Short Term Goal (STG) Pt to ambulate 400' SBA independently STG Duration Met Assistant Housekeeping Manager Goal (LTG) Pt to ambulate 800' during 6 MWT Independently without SBA LTG Duration 07/29/21 - Improving (1408' SBA ) One Impairment Pt does not have an appropriate home exercise program Short Term Goal (STG) Pt to be independent and compliant with an appropriate HEP STG Duration Met Assessment Summary Assessment Pt fairly concerned today about plateauing, nervous about the potential that he would have to discharge at some point in the future. Had a little bit of instability with his left leg today. Physical Therapy Plan Frequency and Duration Frequency of Treatment 1-2x/wk Duration of Treatment 3 months Plan of Care Start Date 04/28/21 Plan of Care End Date 07/29/21 Therapeutic Interventions Therapeutic Interventions Aquatic Therapy,Balance Training,Coordination Training ,Gait Training,Home Exercise Program,Manual Therapy, Neuromuscular Re-education, Patient/Caregiver Education, Self-Care/Home Management, Therapeutic Activities, Therapeutic Exercises Modalities Cold Pack/Ice Massage,Electric Stimulation,Hot Packs, Ultrasound Next Visit Focus/Plan Next Note Type Treatment Note Next Visit Plan SLS, visual scanning, increased activity tolerance
--- NOTE | 2021-06-21 17:22 | PT.OTN ---
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) Physical Therapy Treatment Note PT-OP-A Visit Information Start: 09/17/19 18:00 Freq: Status: Active Protocol: Document 06/21/21 16:45 DCW (Rec: 06/21/21 17:22 DCW [id number]) Out-Patient Physical Therapy Visit Information Visit Information Visit Type Treatment Note Visit Start Time 16:45 Visit Stop Time 17:30 Total Visit Minutes 45 Visit Number 125 Number of EMERY WHEEL WORKER Visits 0 Evaluation Information Evaluation Date 09/17/19 PT-OP-B Current Condition Start: 09/17/19 18:00 Freq: Status: Active Protocol: Document 09/17/19 12:00 DCW (Rec: 09/18/19 10:29 DCW [id number]) Current Condition History of Current Condition Onset Date 04/14/19 Current Complaints Hemiparesis secondary to CVA History of Current Condition Pt is a 69 year old male presenting to skilled outpatient physical therapy with left-side neglect, hemiparesis, loss of independence, and difficulty walking following an intraparenchymal hemorrhage on 04/14/19. Pt was transferred from [facility] to [facility], where a craniotomy was performed on 04/16/19. Pt completed 7 weeks of rehab/ recovery at [facility], and then underwent a second surgery on 06/26/19 to replace the skull fragment. Pt was then at an acute rehab facility 06/30-07/18/19, and since then has been receiving home health physical therapy. Pt presents today with limited left-sided function, left visual and physical neglect, difficulty with transfers, decreased activity tolerance, decreased gait, and many other secondary effects following his CVA. Pt has been working on ambulation with a vale walker with home health, and his states he has walked around 100' a few times, but always with a therapist, as she does not feel comfortable walking with him yet. Pt exclusively gets around at time of evaluation in a manual wheelchair. Pt's transfers have been going fairly well, with his caregivers performing CGA, however pt will occasionally need assistance with placement of his left UE and LE due to neglect. Pt's biggest complaint at the moment is leg pain, his reports they have tried PT, Massage, CBD il, Tylenol, Oxycodine, and Gabapentin, all with minimal benefit. Prior to CVA, pt was fully independent in all activities. Pt and have garegivers 8 hrs a day for assistance. Prior Treatments and Tests Craniotomy 04/16/19, Acute rehab, Skull fragment replacement 06/26/19, home health PT Prior Functional Status Baseline Function- ADL's Independent Baseline Function- Mobility Independent PT-OP-C Subjective Start: 09/17/19 18:00 Freq: Status: Active Protocol: Document 06/21/21 16:45 DCW (Rec: 06/21/21 17:22 DCW [id number]) OP-PT Subjective Patient Comments Patient Comments Pt and request finishing and getting out by 5:30 due to house guests. PT-OP-D Balance Start: 08/04/20 14:14 Freq: Status: Active Protocol: Document 02/02/21 11:15 DCW (Rec: 02/02/21 11:56 DCW [id number]) Balance Tests Adler Balance Test Adler Balance Test Score 49/56 Adler Impairment Rating 1 to 19% Impaired (Score 45-55 ) Adler Balance Assessment Evaluation Sitting to Standing Ability Independent w/out Hands Unsupported Stance Safely- 2 minutes Sitting Unsupported, Feet on Floor Safely- 2 minutes Standing to Sitting Ability Safely, Minimal Hand Use Transfer Ability Safely, Minimal Hand Use Unsupported Stance- Eyes Closed Safely, 10 seconds Unsupported Stance- Eyes Open Independent, 1 minute Reaching Forward Standing Confidently, 10 inches Pick- Up Object From Floor Independent/Safe Look Behind Shoulder - Standing Shifts Weight Well Turning 360 Degrees Turns , < 4 secs Unsupported Stance, Alternating Feet on 4 Steps w/Supervision Stair Unsupported Tandem Stance Holds Tandem- 30 seconds Unilateral Leg Stance Lifts Leg/Unable to Hold Total Score Adler Total Score (out of 56 points) 49 Adler Impairment Rating 1 to 19% Impaired (Score 45-55 ) PT-OP-E Functional Tests Start: 05/04/20 15:15 Freq: Status: Active Protocol: Document 04/28/21 11:15 DCW (Rec: 04/28/21 11:58 DCW [id number]) Functional Tests 6 Minute Walk Test Distance 1408 Device Used none Comments 3.91 ft/sec Timed Up and Go (TUG) Score 8.36 seconds Comments 3-trial average (9.02, 8.46, 7 .60) TUG Impairment Rating 0% Impaired (Score 10) PT-OP-G Mobility & Gait Start: 09/17/19 18:00 Freq: Status: Active Protocol: Document 04/28/21 11:15 DCW (Rec: 04/28/21 11:58 DCW [id number]) OP Gait Assessment Gait Gait Assistance Required: Standby Assistance Distance (Feet) 1,408 Assistive Devices Assistive Device None Gait Deviations General Gait Pattern Antalgic,Ataxic,Flexed Trunk Factors Limiting Gait Function Factors Limiting Gait Function Abnormal Tonal Influences, Decreased Activity Tolerance, Decreased Sensation,Poor Safety Awareness,Respiratory Distress Stair Climbing Evaluation Evaluation Level of Assist On Stairs Standby Assistance Devices Stair Climbing Assistive Devices Right Railing Technique/Endurance Stair Climbing Direction Ascend and Descend Stair Climbing Technique Step Over Step Number of Steps Climbed 4 PT-OP-H Neuro Start: 09/17/19 18:00 Freq: Status: Active Protocol: Document 04/28/21 11:15 DCW (Rec: 04/28/21 11:58 DCW [id number]) Deep Tendon Reflex & Clonus Assessment Deep Tendon Reflex Left Achilles Deep Tendon Reflex 2+ Normal Left Patellar Deep Tendon Reflex 2+ Normal Ankle Clonus Left Clonus Assessment Sustained Muscle Tone Tone Assessment Left Lower Extremity Flexor Tone Description Mild Hypotonicity PT-OP-M Strength Start: 09/17/19 18:00 Freq: Status: Active Protocol: Document 04/28/21 11:15 DCW (Rec: 04/28/21 11:58 DCW [id number]) Hip Strength Hip Manual Muscle Testing Left Flexion (L2) 4+ Good+ Extension (S1) 5 Normal Abduction 4 Good Adduction 5 Normal External Rotation 4 Good Internal Rotation 4 Good Knee Strength Knee Manual Muscle Testing Left Flexion (S2) 4 Good Extension (L3) 5 Normal Ankle/Foot Strength Ankle and Foot Manual Muscle Testing Left Dorsiflexion (L4) 5 Normal Plantarflexion (S1) 4 Good Inversion 4 Good Eversion (S1) 4 Good PT-OP-Q Treatments Start: 09/17/19 18:00 Freq: Status: Active Protocol: Document 06/21/21 16:45 DCW (Rec: 06/21/21 17:22 DCW [id number]) Gait Training Gait Activity No AD Description No AD Device Used None Level of Assistance SBA Distance/Duration 900' x1 Comments VCs to promote heel-toe gait, extend left knee during stance phase Neuro Re-Education Treatment Balance Activities Hurdles Details Hurdles Comments Min Ax1 Cone transfers Details Bending down ball pick-up from cone, kick cone over, ball toss to target PT-OP-R Modalities Start: 09/17/19 18:00 Freq: Status: Active Protocol: Document 06/21/21 16:45 DCW (Rec: 06/21/21 17:22 DCW [id number]) Electric Stimulation Electric Stimulation Interferential Current (IFC) Body Location L ant ankle Duration (Minutes) 15 Patient Position Sitting Combined With Heat/Cold Cold Pack PT-OP-S Aquatic Treatment Start: 09/17/19 18:00 Freq: Status: Active Protocol: Document 01/30/20 12:30 LJ (Rec: 01/30/20 14:54 LJ [id number]) Aquatics Treatment Pool Entry/Exit Pool Entry/Exit Method Lift Assistance Minimal Assistance Water Walking Slow motion Water Level Chest Level Walking Equipment wet vest, UE float, #2.5 ankle wt Level of Assistance Standby Assistance,Contact Guard Assistance,Moderate Assistance Comments emphasis on LLE extension stance phase January Water Level Chest Level Walking Equipment wet vest, UE float, #2.5 ankle wt Level of Assistance Standby Assistance,Contact Guard Assistance,Moderate Assistance,Verbal Cues Forward with emphasis on reciprocal gait pattern Water Level Chest Level Level of Assistance Standby Assistance,Contact Guard Assistance,Minimal Assistance,Verbal Cues Comments wetvest, sm float on LUE, #3. 75 ankle wt on LLE start stop walking forward and backward Water Level Chest Level Walking Equipment vest Level of Assistance Contact Guard Assistance, Verbal Cues Comments wetvest, sm float on LUE, #3. 75 ankle wt on LLE Sideways Water Level Chest Level Walking Equipment wet vest, UE float, #2.5 ankle wt Level of Assistance Standby Assistance,Contact Guard Assistance,Minimal Assistance,Verbal Cues Lower Extremity Exercises SL aquats Details HH on wall Body Position Standing Water Level Waist Level Equipment wetvest Reps/Duration 2x10 LLE Comments VC to extend knee knee extensions Details seated in lift chair Equipment Ankle Weight- 5.0# Reps/Duration 20 B Comments seated in lift SLS Details bracing LLE Body Position Standing Water Level Chest Level Equipment vest Reps/Duration 1 min marching at wall Water Level Chest Level Reps/Duration 2 min Comments opposite UE/LE tapping wall squats Body Position Standing Water Level Chest Level Reps/Duration 20x Lower Extremity Stretches adductors Comments seated in chair Gastroc Body Position Sitting Reps/Duration 2 x 45 sec B Comments manual assist hip flexors Details at wall Body Position Standing Water Level Waist Level Reps/Duration 2x45 Comments manually assisted HS Details at wall Body Position Sitting Water Level Waist Level Equipment wet vest Reps/Duration 2x45 Comments sitting in lift chair assisted Upper Extremity Exercises breastroke UE's Body Position Standing Water Level Chest Level Reps/Duration 3 min Comments during walking and deep water hor ab/ad Water Level Chest Level Comments during side walking, CGA Balance step ups Details step ups/down using boxes Body Position Standing Water Level Waist Level Equipment 8 boxes Comments mod verbal cues for coordination Warren Activities Warren Activities Bicycle,Cross Country Equipment wet vest, white noodle Duration 7 min Comments Guy and cues for vertical alignmernt. PT-OP-T Assessment and Plan Start: 09/17/19 18:00 Freq: Status: Active Protocol: Document 06/21/21 16:45 DCW (Rec: 06/21/21 17:22 DCW [id number]) Physical Therapy Assessment Impairments Impairments Activity Tolerance,Balance, Coordination,Functional Activities,Functional Mobility ,Gait,Pain,ROM,Sensation, Strength,Tone,Transfers Goals Six Impairment Decreased Static Balance Short Term Goal (STG) Pt to score <9 seconds on TUG STG Duration Met Mcc Goal (LTG) NEW GOAL: Pt to score 53/56 on Adler Balance Scale LTG Duration 07/29/21 Five Impairment Pt uses R rail and step-over gait pattern ascending stairs Mcc Goal (LTG) Pt to ascend/descend stairs independently without use of rail LTG Duration 07/29/21 - Improving Four Impairment Pt demonstrates strength impairment throughout left LE Mcc Goal (LTG) Pt to display MMT >3+/5 through L LE LTG Duration Met Three Impairment Pt SBA for transfers and bed mobility d/t Left Neglect Mcc Goal (LTG) Pt to demonstrate independent transfers and bed mobility with an ability to address left LE and UE 80% of the time LTG Duration Met Two Impairment Pt ambulates 280' CGA /s an AD Short Term Goal (STG) Pt to ambulate 400' SBA independently STG Duration Met Turkish Line Attendant Goal (LTG) Pt to ambulate 800' during 6 MWT Independently without SBA LTG Duration 07/29/21 - Improving (1408' SBA ) One Impairment Pt does not have an appropriate home exercise program Short Term Goal (STG) Pt to be independent and compliant with an appropriate HEP STG Duration Met Assessment Summary Assessment Pt showing some increased SOB today with gait. Physical Therapy Plan Frequency and Duration Frequency of Treatment 1-2x/wk Duration of Treatment 3 months Plan of Care Start Date 04/28/21 Plan of Care End Date 07/29/21 Therapeutic Interventions Therapeutic Interventions Aquatic Therapy,Balance Training,Coordination Training ,Gait Training,Home Exercise Program,Manual Therapy, Neuromuscular Re-education, Patient/Caregiver Education, Self-Care/Home Management, Therapeutic Activities, Therapeutic Exercises Modalities Cold Pack/Ice Massage,Electric Stimulation,Hot Packs, Ultrasound Next Visit Focus/Plan Next Note Type Treatment Note Next Visit Plan SLS, visual scanning, increased activity tolerance
--- NOTE | 2021-06-27 12:01 | PT.OTN ---
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) Physical Therapy Treatment Note PT-OP-A Visit Information Start: 09/17/19 18:00 Freq: Status: Active Protocol: Document 06/27/21 11:16 DCW (Rec: 06/27/21 12:01 DCW [id number]) Out-Patient Physical Therapy Visit Information Visit Information Visit Type Treatment Note Visit Start Time 11:16 Visit Stop Time 12:00 Total Visit Minutes 44 Visit Number 126 Number of CLINICAL SCIENCE LIAISON Visits 0 Evaluation Information Evaluation Date 09/17/19 PT-OP-B Current Condition Start: 09/17/19 18:00 Freq: Status: Active Protocol: Document 09/17/19 12:00 DCW (Rec: 09/18/19 10:29 DCW [id number]) Current Condition History of Current Condition Onset Date 04/14/19 Current Complaints Hemiparesis secondary to CVA History of Current Condition Pt is a 69 year old male presenting to skilled outpatient physical therapy with left-side neglect, hemiparesis, loss of independence, and difficulty walking following an intraparenchymal hemorrhage on 04/14/19. Pt was transferred from [facility] to [facility], where a craniotomy was performed on 04/16/19. Pt completed 7 weeks of rehab/ recovery at [facility], and then underwent a second surgery on 06/26/19 to replace the skull fragment. Pt was then at an acute rehab facility 06/30-07/18/19, and since then has been receiving home health physical therapy. Pt presents today with limited left-sided function, left visual and physical neglect, difficulty with transfers, decreased activity tolerance, decreased gait, and many other secondary effects following his CVA. Pt has been working on ambulation with a vale walker with home health, and his states he has walked around 100' a few times, but always with a therapist, as she does not feel comfortable walking with him yet. Pt exclusively gets around at time of evaluation in a manual wheelchair. Pt's transfers have been going fairly well, with his caregivers performing CGA, however pt will occasionally need assistance with placement of his left UE and LE due to neglect. Pt's biggest complaint at the moment is leg pain, his reports they have tried PT, Massage, CBD il, Tylenol, Oxycodine, and Gabapentin, all with minimal benefit. Prior to CVA, pt was fully independent in all activities. Pt and have garegivers 8 hrs a day for assistance. Prior Treatments and Tests Craniotomy 04/16/19, Acute rehab, Skull fragment replacement 06/26/19, home health PT Prior Functional Status Baseline Function- ADL's Independent Baseline Function- Mobility Independent PT-OP-C Subjective Start: 09/17/19 18:00 Freq: Status: Active Protocol: Document 06/27/21 11:16 DCW (Rec: 06/27/21 12:01 DCW [id number]) OP-PT Subjective Patient Comments Patient Comments My low back is huirting today , but it always feels better once I'm up moving around. PT-OP-D Balance Start: 08/04/20 14:14 Freq: Status: Active Protocol: Document 02/02/21 11:15 DCW (Rec: 02/02/21 11:56 DCW [id number]) Balance Tests Adler Balance Test Adler Balance Test Score 49/56 Adler Impairment Rating 1 to 19% Impaired (Score 45-55 ) Adler Balance Assessment Evaluation Sitting to Standing Ability Independent w/out Hands Unsupported Stance Safely- 2 minutes Sitting Unsupported, Feet on Floor Safely- 2 minutes Standing to Sitting Ability Safely, Minimal Hand Use Transfer Ability Safely, Minimal Hand Use Unsupported Stance- Eyes Closed Safely, 10 seconds Unsupported Stance- Eyes Open Independent, 1 minute Reaching Forward Standing Confidently, 10 inches Pick- Up Object From Floor Independent/Safe Look Behind Shoulder - Standing Shifts Weight Well Turning 360 Degrees Turns , < 4 secs Unsupported Stance, Alternating Feet on 4 Steps w/Supervision Stair Unsupported Tandem Stance Holds Tandem- 30 seconds Unilateral Leg Stance Lifts Leg/Unable to Hold Total Score Adler Total Score (out of 56 points) 49 Adler Impairment Rating 1 to 19% Impaired (Score 45-55 ) PT-OP-E Functional Tests Start: 05/04/20 15:15 Freq: Status: Active Protocol: Document 04/28/21 11:15 DCW (Rec: 04/28/21 11:58 DCW [id number]) Functional Tests 6 Minute Walk Test Distance 1408 Device Used none Comments 3.91 ft/sec Timed Up and Go (TUG) Score 8.36 seconds Comments 3-trial average (9.02, 8.46, 7 .60) TUG Impairment Rating 0% Impaired (Score 10) PT-OP-G Mobility & Gait Start: 09/17/19 18:00 Freq: Status: Active Protocol: Document 04/28/21 11:15 DCW (Rec: 04/28/21 11:58 DCW [id number]) OP Gait Assessment Gait Gait Assistance Required: Standby Assistance Distance (Feet) 1,408 Assistive Devices Assistive Device None Gait Deviations General Gait Pattern Antalgic,Ataxic,Flexed Trunk Factors Limiting Gait Function Factors Limiting Gait Function Abnormal Tonal Influences, Decreased Activity Tolerance, Decreased Sensation,Poor Safety Awareness,Respiratory Distress Stair Climbing Evaluation Evaluation Level of Assist On Stairs Standby Assistance Devices Stair Climbing Assistive Devices Right Railing Technique/Endurance Stair Climbing Direction Ascend and Descend Stair Climbing Technique Step Over Step Number of Steps Climbed 4 PT-OP-H Neuro Start: 09/17/19 18:00 Freq: Status: Active Protocol: Document 04/28/21 11:15 DCW (Rec: 04/28/21 11:58 DCW [id number]) Deep Tendon Reflex & Clonus Assessment Deep Tendon Reflex Left Achilles Deep Tendon Reflex 2+ Normal Left Patellar Deep Tendon Reflex 2+ Normal Ankle Clonus Left Clonus Assessment Sustained Muscle Tone Tone Assessment Left Lower Extremity Flexor Tone Description Mild Hypotonicity PT-OP-M Strength Start: 09/17/19 18:00 Freq: Status: Active Protocol: Document 04/28/21 11:15 DCW (Rec: 04/28/21 11:58 DCW [id number]) Hip Strength Hip Manual Muscle Testing Left Flexion (L2) 4+ Good+ Extension (S1) 5 Normal Abduction 4 Good Adduction 5 Normal External Rotation 4 Good Internal Rotation 4 Good Knee Strength Knee Manual Muscle Testing Left Flexion (S2) 4 Good Extension (L3) 5 Normal Ankle/Foot Strength Ankle and Foot Manual Muscle Testing Left Dorsiflexion (L4) 5 Normal Plantarflexion (S1) 4 Good Inversion 4 Good Eversion (S1) 4 Good PT-OP-Q Treatments Start: 09/17/19 18:00 Freq: Status: Active Protocol: Document 06/27/21 11:16 DCW (Rec: 06/27/21 12:01 DCW [id number]) Gym Equipment Shuttle Recovery Unilateral Heel Raises Details Left Resistance 25# Reps/Time calf stretch at end Unilateral Squats Details Left Resistance 62# Shuttle Recovery Platform Stable Bilateral Squats Resistance 100# Shuttle Recovery Platform Stable Reps/Time x50 Shuttle Balance Red Details Wide SRIDEVI, Staggered Comments Min Ax1 Therapeutic Exercises Standing Exercises Hamstring Curl Standing Exercise Name HS Curl Side bilateral Resistance 10# Marching Standing Exercise Name Toe-taps at rail Side bilateral Resistance 5# Equipment Used 6 step Gait Training Gait Activity No AD Description No AD Device Used None Level of Assistance SBA Distance/Duration 1080' x1 Comments VCs to promote heel-toe gait, extend left knee during stance phase Neuro Re-Education Treatment Balance Activities Cone transfers Details Bending down ball pick-up from cone, kick cone over, ball toss to target PT-OP-R Modalities Start: 09/17/19 18:00 Freq: Status: Active Protocol: Document 06/27/21 11:16 DCW (Rec: 06/27/21 12:01 DCW [id number]) Electric Stimulation Electric Stimulation Interferential Current (IFC) Body Location L ant ankle Duration (Minutes) 15 Patient Position Sitting Combined With Heat/Cold Cold Pack PT-OP-S Aquatic Treatment Start: 09/17/19 18:00 Freq: Status: Active Protocol: Document 01/30/20 12:30 LJ (Rec: 01/30/20 14:54 LJ [id number]) Aquatics Treatment Pool Entry/Exit Pool Entry/Exit Method Lift Assistance Minimal Assistance Water Walking Slow motion Water Level Chest Level Walking Equipment wet vest, UE float, #2.5 ankle wt Level of Assistance Standby Assistance,Contact Guard Assistance,Moderate Assistance Comments emphasis on LLE extension stance phase January Water Level Chest Level Walking Equipment wet vest, UE float, #2.5 ankle wt Level of Assistance Standby Assistance,Contact Guard Assistance,Moderate Assistance,Verbal Cues Forward with emphasis on reciprocal gait pattern Water Level Chest Level Level of Assistance Standby Assistance,Contact Guard Assistance,Minimal Assistance,Verbal Cues Comments wetvest, sm float on LUE, #3. 75 ankle wt on LLE start stop walking forward and backward Water Level Chest Level Walking Equipment vest Level of Assistance Contact Guard Assistance, Verbal Cues Comments wetvest, sm float on LUE, #3. 75 ankle wt on LLE Sideways Water Level Chest Level Walking Equipment wet vest, UE float, #2.5 ankle wt Level of Assistance Standby Assistance,Contact Guard Assistance,Minimal Assistance,Verbal Cues Lower Extremity Exercises SL aquats Details HH on wall Body Position Standing Water Level Waist Level Equipment wetvest Reps/Duration 2x10 LLE Comments VC to extend knee knee extensions Details seated in lift chair Equipment Ankle Weight- 5.0# Reps/Duration 20 B Comments seated in lift SLS Details bracing LLE Body Position Standing Water Level Chest Level Equipment vest Reps/Duration 1 min marching at wall Water Level Chest Level Reps/Duration 2 min Comments opposite UE/LE tapping wall squats Body Position Standing Water Level Chest Level Reps/Duration 20x Lower Extremity Stretches adductors Comments seated in chair Gastroc Body Position Sitting Reps/Duration 2 x 45 sec B Comments manual assist hip flexors Details at wall Body Position Standing Water Level Waist Level Reps/Duration 2x45 Comments manually assisted HS Details at wall Body Position Sitting Water Level Waist Level Equipment wet vest Reps/Duration 2x45 Comments sitting in lift chair assisted Upper Extremity Exercises breastroke UE's Body Position Standing Water Level Chest Level Reps/Duration 3 min Comments during walking and deep water hor ab/ad Water Level Chest Level Comments during side walking, CGA Balance step ups Details step ups/down using boxes Body Position Standing Water Level Waist Level Equipment 8 boxes Comments mod verbal cues for coordination [place] Activities [place] Activities Bicycle,Cross Country Equipment wet vest, white noodle Duration 7 min Comments Guy and cues for vertical alignmernt. PT-OP-T Assessment and Plan Start: 09/17/19 18:00 Freq: Status: Active Protocol: Document 06/27/21 11:16 DCW (Rec: 06/27/21 12:01 DCW [id number]) Physical Therapy Assessment Impairments Impairments Activity Tolerance,Balance, Coordination,Functional Activities,Functional Mobility ,Gait,Pain,ROM,Sensation, Strength,Tone,Transfers Goals Six Impairment Decreased Static Balance Short Term Goal (STG) Pt to score <9 seconds on TUG STG Duration Met Estate Planning Attorney Goal (LTG) NEW GOAL: Pt to score 53/56 on Adler Balance Scale LTG Duration 07/29/21 Five Impairment Pt uses R rail and step-over gait pattern ascending stairs Estate Planning Attorney Goal (LTG) Pt to ascend/descend stairs independently without use of rail LTG Duration 07/29/21 - Improving Four Impairment Pt demonstrates strength impairment throughout left LE Estate Planning Attorney Goal (LTG) Pt to display MMT >3+/5 through L LE LTG Duration Met Three Impairment Pt SBA for transfers and bed mobility d/t Left Neglect Estate Planning Attorney Goal (LTG) Pt to demonstrate independent transfers and bed mobility with an ability to address left LE and UE 80% of the time LTG Duration Met Two Impairment Pt ambulates 280' CGA /s an AD Short Term Goal (STG) Pt to ambulate 400' SBA independently STG Duration Met Correction Goal (LTG) Pt to ambulate 800' during 6 MWT Independently without SBA LTG Duration 07/29/21 - Improving (1408' SBA ) One Impairment Pt does not have an appropriate home exercise program Short Term Goal (STG) Pt to be independent and compliant with an appropriate HEP STG Duration Met Assessment Summary Assessment Pt SOB better today, but experiencing increased low back pain and discomfort with standing exercises. Physical Therapy Plan Frequency and Duration Frequency of Treatment 1-2x/wk Duration of Treatment 3 months Plan of Care Start Date 04/28/21 Plan of Care End Date 07/29/21 Therapeutic Interventions Therapeutic Interventions Aquatic Therapy,Balance Training,Coordination Training ,Gait Training,Home Exercise Program,Manual Therapy, Neuromuscular Re-education, Patient/Caregiver Education, Self-Care/Home Management, Therapeutic Activities, Therapeutic Exercises Modalities Cold Pack/Ice Massage,Electric Stimulation,Hot Packs, Ultrasound Next Visit Focus/Plan Next Note Type Treatment Note Next Visit Plan SLS, visual scanning, increased activity tolerance
--- NOTE | 2021-07-04 15:55 | PT.OTN ---
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) Physical Therapy Treatment Note PT-OP-A Visit Information Start: 09/17/19 18:00 Freq: Status: Active Protocol: Document 07/04/21 15:15 DCW (Rec: 07/04/21 15:55 DCW [id number]) Out-Patient Physical Therapy Visit Information Visit Information Visit Type Treatment Note Visit Start Time 15:15 Visit Stop Time 16:10 Total Visit Minutes 55 Visit Number 127 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 Pt was transferred from [facility] to [facility], where a craniotomy was performed on 04/16/19. Pt completed 7 weeks of rehab/ recovery at [facility], and then underwent a second surgery on 06/26/19 to replace the skull fragment. Pt was then at an acute rehab facility 06/30-07/18/19, and since then has been receiving home health physical therapy. Pt presents today with limited left-sided function, left visual and physical neglect, difficulty with transfers, decreased activity tolerance, decreased gait, and many other secondary effects following his CVA. Pt has been working on ambulation with a vale walker with home health, and his states he has walked around 100' a few times, but always with a therapist, as she does not feel comfortable walking with him yet. Pt exclusively gets around at time of evaluation in a manual wheelchair. Pt's transfers have been going fairly well, with his caregivers performing CGA, however pt will occasionally need assistance with placement of his left UE and LE due to neglect. Pt's biggest complaint at the moment is leg pain, his reports they have tried PT, Massage, CBD il, Tylenol, Oxycodine, and Gabapentin, all with minimal benefit. Prior to CVA, pt was fully independent in all activities. Pt and have garegivers 8 hrs a day for assistance. Prior Treatments and Tests Craniotomy 04/16/19, Acute rehab, Skull fragment replacement 06/26/19, home health PT Prior Functional Status Baseline Function- ADL's Independent Baseline Function- Mobility Independent PT-OP-C Subjective Start: 09/17/19 18:00 Freq: Status: Active Protocol: Document 07/04/21 15:15 DCW (Rec: 07/04/21 15:55 DCW [id number]) OP-PT Subjective Patient Comments Patient Comments My stroke doctor was impressed that I've been doing the treadmill here. PT-OP-D Balance Start: 08/04/20 14:14 Freq: Status: Active Protocol: Document 02/02/21 11:15 DCW (Rec: 02/02/21 11:56 DCW [id number]) Balance Tests Adler Balance Test Adler Balance Test Score 49/56 Adler Impairment Rating 1 to 19% Impaired (Score 45-55 ) Adler Balance Assessment Evaluation Sitting to Standing Ability Independent w/out Hands Unsupported Stance Safely- 2 minutes Sitting Unsupported, Feet on Floor Safely- 2 minutes Standing to Sitting Ability Safely, Minimal Hand Use Transfer Ability Safely, Minimal Hand Use Unsupported Stance- Eyes Closed Safely, 10 seconds Unsupported Stance- Eyes Open Independent, 1 minute Reaching Forward Standing Confidently, 10 inches Pick- Up Object From Floor Independent/Safe Look Behind Shoulder - Standing Shifts Weight Well Turning 360 Degrees Turns , < 4 secs Unsupported Stance, Alternating Feet on 4 Steps w/Supervision Stair Unsupported Tandem Stance Holds Tandem- 30 seconds Unilateral Leg Stance Lifts Leg/Unable to Hold Total Score Adler Total Score (out of 56 points) 49 Adler Impairment Rating 1 to 19% Impaired (Score 45-55 ) PT-OP-E Functional Tests Start: 05/04/20 15:15 Freq: Status: Active Protocol: Document 04/28/21 11:15 DCW (Rec: 04/28/21 11:58 DCW [id number]) Functional Tests 6 Minute Walk Test Distance 1408 Device Used none Comments 3.91 ft/sec Timed Up and Go (TUG) Score 8.36 seconds Comments 3-trial average (9.02, 8.46, 7 .60) TUG Impairment Rating 0% Impaired (Score 10) PT-OP-G Mobility & Gait Start: 09/17/19 18:00 Freq: Status: Active Protocol: Document 04/28/21 11:15 DCW (Rec: 04/28/21 11:58 DCW [id number]) OP Gait Assessment Gait Gait Assistance Required: Standby Assistance Distance (Feet) 1,408 Assistive Devices Assistive Device None Gait Deviations General Gait Pattern Antalgic,Ataxic,Flexed Trunk Factors Limiting Gait Function Factors Limiting Gait Function Abnormal Tonal Influences, Decreased Activity Tolerance, Decreased Sensation,Poor Safety Awareness,Respiratory Distress Stair Climbing Evaluation Evaluation Level of Assist On Stairs Standby Assistance Devices Stair Climbing Assistive Devices Right Railing Technique/Endurance Stair Climbing Direction Ascend and Descend Stair Climbing Technique Step Over Step Number of Steps Climbed 4 PT-OP-H Neuro Start: 09/17/19 18:00 Freq: Status: Active Protocol: Document 04/28/21 11:15 DCW (Rec: 04/28/21 11:58 DCW [id number]) Deep Tendon Reflex & Clonus Assessment Deep Tendon Reflex Left Achilles Deep Tendon Reflex 2+ Normal Left Patellar Deep Tendon Reflex 2+ Normal Ankle Clonus Left Clonus Assessment Sustained Muscle Tone Tone Assessment Left Lower Extremity Flexor Tone Description Mild Hypotonicity PT-OP-M Strength Start: 09/17/19 18:00 Freq: Status: Active Protocol: Document 04/28/21 11:15 DCW (Rec: 04/28/21 11:58 DCW [id number]) Hip Strength Hip Manual Muscle Testing Left Flexion (L2) 4+ Good+ Extension (S1) 5 Normal Abduction 4 Good Adduction 5 Normal External Rotation 4 Good Internal Rotation 4 Good Knee Strength Knee Manual Muscle Testing Left Flexion (S2) 4 Good Extension (L3) 5 Normal Ankle/Foot Strength Ankle and Foot Manual Muscle Testing Left Dorsiflexion (L4) 5 Normal Plantarflexion (S1) 4 Good Inversion 4 Good Eversion (S1) 4 Good PT-OP-Q Treatments Start: 09/17/19 18:00 Freq: Status: Active Protocol: Document 07/04/21 15:15 DCW (Rec: 07/04/21 15:55 DCW [id number]) Gym Equipment Shuttle Balance Red Details Wide SRIDEVI (EO/EC Comments Min Ax1 Therapeutic Exercises Sitting Exercises Dorsiflexion Sitting Exercise Name 4-way ankle flexion Side left Resistance Lv 2 Abduction Sitting Exercise Name Hip Abduction Side bilateral Resistance Lv 3 Equipment Used T-band Gait Training Gait Activity No AD Description No AD Device Used None Level of Assistance SBA Distance/Duration 900' x1 Comments VCs to promote heel-toe gait, extend left knee during stance phase Neuro Re-Education Treatment Balance Activities Cone transfers Details Bending down ball pick-up from cone, kick cone over, ball toss to target PT-OP-R Modalities Start: 09/17/19 18:00 Freq: Status: Active Protocol: Document 07/04/21 15:15 DCW (Rec: 07/04/21 15:55 DCW [id number]) Electric Stimulation Electric Stimulation Interferential Current (IFC) Body Location L ant ankle Duration (Minutes) 15 Patient Position Sitting Combined With Heat/Cold Cold Pack PT-OP-S Aquatic Treatment Start: 09/17/19 18:00 Freq: Status: Active Protocol: Document 01/30/20 12:30 LJ (Rec: 01/30/20 14:54 LJ [id number]) Aquatics Treatment Pool Entry/Exit Pool Entry/Exit Method Lift Assistance Minimal Assistance Water Walking Slow motion Water Level Chest Level Walking Equipment wet vest, UE float, #2.5 ankle wt Level of Assistance Standby Assistance,Contact Guard Assistance,Moderate Assistance Comments emphasis on LLE extension stance phase January Water Level Chest Level Walking Equipment wet vest, UE float, #2.5 ankle wt Level of Assistance Standby Assistance,Contact Guard Assistance,Moderate Assistance,Verbal Cues Forward with emphasis on reciprocal gait pattern Water Level Chest Level Level of Assistance Standby Assistance,Contact Guard Assistance,Minimal Assistance,Verbal Cues Comments wetvest, sm float on LUE, #3. 75 ankle wt on LLE start stop walking forward and backward Water Level Chest Level Walking Equipment vest Level of Assistance Contact Guard Assistance, Verbal Cues Comments wetvest, sm float on LUE, #3. 75 ankle wt on LLE Sideways Water Level Chest Level Walking Equipment wet vest, UE float, #2.5 ankle wt Level of Assistance Standby Assistance,Contact Guard Assistance,Minimal Assistance,Verbal Cues Lower Extremity Exercises SL aquats Details HH on wall Body Position Standing Water Level Waist Level Equipment wetvest Reps/Duration 2x10 LLE Comments VC to extend knee knee extensions Details seated in lift chair Equipment Ankle Weight- 5.0# Reps/Duration 20 B Comments seated in lift SLS Details bracing LLE Body Position Standing Water Level Chest Level Equipment vest Reps/Duration 1 min marching at wall Water Level Chest Level Reps/Duration 2 min Comments opposite UE/LE tapping wall squats Body Position Standing Water Level Chest Level Reps/Duration 20x Lower Extremity Stretches adductors Comments seated in chair Gastroc Body Position Sitting Reps/Duration 2 x 45 sec B Comments manual assist hip flexors Details at wall Body Position Standing Water Level Waist Level Reps/Duration 2x45 Comments manually assisted HS Details at wall Body Position Sitting Water Level Waist Level Equipment wet vest Reps/Duration 2x45 Comments sitting in lift chair assisted Upper Extremity Exercises breastroke UE's Body Position Standing Water Level Chest Level Reps/Duration 3 min Comments during walking and deep water hor ab/ad Water Level Chest Level Comments during side walking, CGA Balance step ups Details step ups/down using boxes Body Position Standing Water Level Waist Level Equipment 8 boxes Comments mod verbal cues for coordination Export Activities Export Activities Bicycle,Cross Country Equipment wet vest, white noodle Duration 7 min Comments Guy and cues for vertical alignmernt. PT-OP-T Assessment and Plan Start: 09/17/19 18:00 Freq: Status: Active Protocol: Document 07/04/21 15:15 DCW (Rec: 07/04/21 15:55 DCW [id number]) Physical Therapy Assessment Impairments Impairments Activity Tolerance,Balance, Coordination,Functional Activities,Functional Mobility ,Gait,Pain,ROM,Sensation, Strength,Tone,Transfers Goals Six Impairment Decreased Static Balance Short Term Goal (STG) Pt to score <9 seconds on TUG STG Duration Met [facility] Goal (LTG) NEW GOAL: Pt to score 53/56 on Adler Balance Scale LTG Duration 07/29/21 Five Impairment Pt uses R rail and step-over gait pattern ascending stairs Senior Electrical Estimator Goal (LTG) Pt to ascend/descend stairs independently without use of rail LTG Duration 07/29/21 - Improving Four Impairment Pt demonstrates strength impairment throughout left LE [facility] Goal (LTG) Pt to display MMT >3+/5 through L LE LTG Duration Met Three Impairment Pt SBA for transfers and bed mobility d/t Left Neglect Senior Electrical Estimator Goal (LTG) Pt to demonstrate independent transfers and bed mobility with an ability to address left LE and UE 80% of the time LTG Duration Met Two Impairment Pt ambulates 280' CGA /s an AD Short Term Goal (STG) Pt to ambulate 400' SBA independently STG Duration Met [facility] Goal (LTG) Pt to ambulate 800' during 6 MWT Independently without SBA LTG Duration 07/29/21 - Improving (1408' SBA ) One Impairment Pt does not have an appropriate home exercise program Short Term Goal (STG) Pt to be independent and compliant with an appropriate HEP STG Duration Met Assessment Summary Assessment Pt did not complain of LPB today, was able to perform all activities without any major complaints of pain or SOB. Physical Therapy Plan Frequency and Duration Frequency of Treatment 1-2x/wk Duration of Treatment 3 months Plan of Care Start Date 04/28/21 Plan of Care End Date 07/29/21 Therapeutic Interventions Therapeutic Interventions Aquatic Therapy,Balance Training,Coordination Training ,Gait Training,Home Exercise Program,Manual Therapy, Neuromuscular Re-education, Patient/Caregiver Education, Self-Care/Home Management, Therapeutic Activities, Therapeutic Exercises Modalities Cold Pack/Ice Massage,Electric Stimulation,Hot Packs, Ultrasound Next Visit Focus/Plan Next Note Type Treatment Note Next Visit Plan SLS, visual scanning, increased activity tolerance
--- NOTE | 2021-07-11 14:32 | PT.OTN ---
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) Physical Therapy Treatment Note PT-OP-A Visit Information Start: 09/17/19 18:00 Freq: Status: Active Protocol: Document 07/11/21 13:48 DCW (Rec: 07/11/21 14:32 DCW [id number]) Out-Patient Physical Therapy Visit Information Visit Information Visit Type Treatment Note Visit Start Time 13:48 Visit Stop Time 14:42 Total Visit Minutes 54 Visit Number 128 Number of HELMINTHOLOGIST Visits 0 Evaluation Information Evaluation Date 09/17/19 PT-OP-B Current Condition Start: 09/17/19 18:00 Freq: Status: Active Protocol: Document 09/17/19 12:00 DCW (Rec: 09/18/19 10:29 DCW [id number]) Current Condition History of Current Condition Onset Date 04/14/19 Current Complaints Hemiparesis secondary to CVA History of Current Condition Pt is a 69 year old male presenting to skilled outpatient physical therapy with left-side neglect, hemiparesis, loss of independence, and difficulty walking following an intraparenchymal hemorrhage on 04/14/19. Pt was transferred from [facility] to [facility], where a craniotomy was performed on 04/16/19. Pt completed 7 weeks of rehab/ recovery at [facility], and then underwent a second surgery on 06/26/19 to replace the skull fragment. Pt was then at an acute rehab facility 06/30-07/18/19, and since then has been receiving home health physical therapy. Pt presents today with limited left-sided function, left visual and physical neglect, difficulty with transfers, decreased activity tolerance, decreased gait, and many other secondary effects following his CVA. Pt has been working on ambulation with a vale walker with home health, and his states he has walked around 100' a few times, but always with a therapist, as she does not feel comfortable walking with him yet. Pt exclusively gets around at time of evaluation in a manual wheelchair. Pt's transfers have been going fairly well, with his caregivers performing CGA, however pt will occasionally need assistance with placement of his left UE and LE due to neglect. Pt's biggest complaint at the moment is leg pain, his reports they have tried PT, Massage, CBD il, Tylenol, Oxycodine, and Gabapentin, all with minimal benefit. Prior to CVA, pt was fully independent in all activities. Pt and have garegivers 8 hrs a day for assistance. Prior Treatments and Tests Craniotomy 04/16/19, Acute rehab, Skull fragment replacement 06/26/19, home health PT Prior Functional Status Baseline Function- ADL's Independent Baseline Function- Mobility Independent PT-OP-C Subjective Start: 09/17/19 18:00 Freq: Status: Active Protocol: Document 07/11/21 13:48 DCW (Rec: 07/11/21 14:32 DCW [id number]) OP-PT Subjective Patient Comments Patient Comments Pt reports his back was severely sore this AM, but loosened up after getting up and moving around. PT-OP-D Balance Start: 08/04/20 14:14 Freq: Status: Active Protocol: Document 02/02/21 11:15 DCW (Rec: 02/02/21 11:56 DCW [id number]) Balance Tests Adler Balance Test Adler Balance Test Score 49/56 Adler Impairment Rating 1 to 19% Impaired (Score 45-55 ) Adler Balance Assessment Evaluation Sitting to Standing Ability Independent w/out Hands Unsupported Stance Safely- 2 minutes Sitting Unsupported, Feet on Floor Safely- 2 minutes Standing to Sitting Ability Safely, Minimal Hand Use Transfer Ability Safely, Minimal Hand Use Unsupported Stance- Eyes Closed Safely, 10 seconds Unsupported Stance- Eyes Open Independent, 1 minute Reaching Forward Standing Confidently, 10 inches Pick- Up Object From Floor Independent/Safe Look Behind Shoulder - Standing Shifts Weight Well Turning 360 Degrees Turns , < 4 secs Unsupported Stance, Alternating Feet on 4 Steps w/Supervision Stair Unsupported Tandem Stance Holds Tandem- 30 seconds Unilateral Leg Stance Lifts Leg/Unable to Hold Total Score Adler Total Score (out of 56 points) 49 Adler Impairment Rating 1 to 19% Impaired (Score 45-55 ) PT-OP-E Functional Tests Start: 05/04/20 15:15 Freq: Status: Active Protocol: Document 04/28/21 11:15 DCW (Rec: 04/28/21 11:58 DCW [id number]) Functional Tests 6 Minute Walk Test Distance 1408 Device Used none Comments 3.91 ft/sec Timed Up and Go (TUG) Score 8.36 seconds Comments 3-trial average (9.02, 8.46, 7 .60) TUG Impairment Rating 0% Impaired (Score 10) PT-OP-G Mobility & Gait Start: 09/17/19 18:00 Freq: Status: Active Protocol: Document 04/28/21 11:15 DCW (Rec: 04/28/21 11:58 DCW [id number]) OP Gait Assessment Gait Gait Assistance Required: Standby Assistance Distance (Feet) 1,408 Assistive Devices Assistive Device None Gait Deviations General Gait Pattern Antalgic,Ataxic,Flexed Trunk Factors Limiting Gait Function Factors Limiting Gait Function Abnormal Tonal Influences, Decreased Activity Tolerance, Decreased Sensation,Poor Safety Awareness,Respiratory Distress Stair Climbing Evaluation Evaluation Level of Assist On Stairs Standby Assistance Devices Stair Climbing Assistive Devices Right Railing Technique/Endurance Stair Climbing Direction Ascend and Descend Stair Climbing Technique Step Over Step Number of Steps Climbed 4 PT-OP-H Neuro Start: 09/17/19 18:00 Freq: Status: Active Protocol: Document 04/28/21 11:15 DCW (Rec: 04/28/21 11:58 DCW [id number]) Deep Tendon Reflex & Clonus Assessment Deep Tendon Reflex Left Achilles Deep Tendon Reflex 2+ Normal Left Patellar Deep Tendon Reflex 2+ Normal Ankle Clonus Left Clonus Assessment Sustained Muscle Tone Tone Assessment Left Lower Extremity Flexor Tone Description Mild Hypotonicity PT-OP-M Strength Start: 09/17/19 18:00 Freq: Status: Active Protocol: Document 04/28/21 11:15 DCW (Rec: 04/28/21 11:58 DCW [id number]) Hip Strength Hip Manual Muscle Testing Left Flexion (L2) 4+ Good+ Extension (S1) 5 Normal Abduction 4 Good Adduction 5 Normal External Rotation 4 Good Internal Rotation 4 Good Knee Strength Knee Manual Muscle Testing Left Flexion (S2) 4 Good Extension (L3) 5 Normal Ankle/Foot Strength Ankle and Foot Manual Muscle Testing Left Dorsiflexion (L4) 5 Normal Plantarflexion (S1) 4 Good Inversion 4 Good Eversion (S1) 4 Good PT-OP-Q Treatments Start: 09/17/19 18:00 Freq: Status: Active Protocol: Document 07/11/21 13:48 DCW (Rec: 07/11/21 14:32 DCW [id number]) Gym Equipment Shuttle Recovery Unilateral Heel Raises Details Left Resistance 25# Reps/Time calf stretch at end Unilateral Squats Details Left Resistance 62# Shuttle Recovery Platform Stable Bilateral Squats Resistance 100# Shuttle Recovery Platform Stable Reps/Time x50 Shuttle Balance Red Details Wide SRIDEVI (EO/EC Comments Min Ax1 Therapeutic Exercises Sitting Exercises Dorsiflexion Sitting Exercise Name 4-way ankle flexion Side left Resistance Lv 2 Abduction Sitting Exercise Name Hip Abduction Side bilateral Resistance Lv 3 Equipment Used T-band Gait Training Gait Activity No AD Description No AD Device Used None Level of Assistance SBA Distance/Duration 900' x1 Comments VCs to promote heel-toe gait, extend left knee during stance phase Neuro Re-Education Treatment Balance Activities Cone transfers Details Bending down ball pick-up from cone, kick cone over, ball toss to target PT-OP-R Modalities Start: 09/17/19 18:00 Freq: Status: Active Protocol: Document 07/11/21 13:48 DCW (Rec: 07/11/21 14:32 DCW [id number]) Electric Stimulation Electric Stimulation Interferential Current (IFC) Body Location L ant ankle Duration (Minutes) 15 Patient Position Sitting Combined With Heat/Cold Cold Pack PT-OP-S Aquatic Treatment Start: 09/17/19 18:00 Freq: Status: Active Protocol: Document 01/30/20 12:30 LJ (Rec: 01/30/20 14:54 LJ [id number]) Aquatics Treatment Pool Entry/Exit Pool Entry/Exit Method Lift Assistance Minimal Assistance Water Walking Slow motion Water Level Chest Level Walking Equipment wet vest, UE float, #2.5 ankle wt Level of Assistance Standby Assistance,Contact Guard Assistance,Moderate Assistance Comments emphasis on LLE extension stance phase January Water Level Chest Level Walking Equipment wet vest, UE float, #2.5 ankle wt Level of Assistance Standby Assistance,Contact Guard Assistance,Moderate Assistance,Verbal Cues Forward with emphasis on reciprocal gait pattern Water Level Chest Level Level of Assistance Standby Assistance,Contact Guard Assistance,Minimal Assistance,Verbal Cues Comments wetvest, sm float on LUE, #3. 75 ankle wt on LLE start stop walking forward and backward Water Level Chest Level Walking Equipment vest Level of Assistance Contact Guard Assistance, Verbal Cues Comments wetvest, sm float on LUE, #3. 75 ankle wt on LLE Sideways Water Level Chest Level Walking Equipment wet vest, UE float, #2.5 ankle wt Level of Assistance Standby Assistance,Contact Guard Assistance,Minimal Assistance,Verbal Cues Lower Extremity Exercises SL aquats Details HH on wall Body Position Standing Water Level Waist Level Equipment wetvest Reps/Duration 2x10 LLE Comments VC to extend knee knee extensions Details seated in lift chair Equipment Ankle Weight- 5.0# Reps/Duration 20 B Comments seated in lift SLS Details bracing LLE Body Position Standing Water Level Chest Level Equipment vest Reps/Duration 1 min marching at wall Water Level Chest Level Reps/Duration 2 min Comments opposite UE/LE tapping wall squats Body Position Standing Water Level Chest Level Reps/Duration 20x Lower Extremity Stretches adductors Comments seated in chair Gastroc Body Position Sitting Reps/Duration 2 x 45 sec B Comments manual assist hip flexors Details at wall Body Position Standing Water Level Waist Level Reps/Duration 2x45 Comments manually assisted HS Details at wall Body Position Sitting Water Level Waist Level Equipment wet vest Reps/Duration 2x45 Comments sitting in lift chair assisted Upper Extremity Exercises breastroke UE's Body Position Standing Water Level Chest Level Reps/Duration 3 min Comments during walking and deep water hor ab/ad Water Level Chest Level Comments during side walking, CGA Balance step ups Details step ups/down using boxes Body Position Standing Water Level Waist Level Equipment 8 boxes Comments mod verbal cues for coordination [place] Activities [place] Activities Bicycle,Cross Country Equipment wet vest, white noodle Duration 7 min Comments Guy and cues for vertical alignmernt. PT-OP-T Assessment and Plan Start: 09/17/19 18:00 Freq: Status: Active Protocol: Document 07/11/21 13:48 DCW (Rec: 07/11/21 14:32 DCW [id number]) Physical Therapy Assessment Impairments Impairments Activity Tolerance,Balance, Coordination,Functional Activities,Functional Mobility ,Gait,Pain,ROM,Sensation, Strength,Tone,Transfers Goals Six Impairment Decreased Static Balance Short Term Goal (STG) Pt to score <9 seconds on TUG STG Duration Met Alf Goal (LTG) NEW GOAL: Pt to score 53/56 on Adler Balance Scale LTG Duration 07/29/21 Five Impairment Pt uses R rail and step-over gait pattern ascending stairs Overweaver Goal (LTG) Pt to ascend/descend stairs independently without use of rail LTG Duration 07/29/21 - Improving Four Impairment Pt demonstrates strength impairment throughout left LE Alf Goal (LTG) Pt to display MMT >3+/5 through L LE LTG Duration Met Three Impairment Pt SBA for transfers and bed mobility d/t Left Neglect Overweaver Goal (LTG) Pt to demonstrate independent transfers and bed mobility with an ability to address left LE and UE 80% of the time LTG Duration Met Two Impairment Pt ambulates 280' CGA /s an AD Short Term Goal (STG) Pt to ambulate 400' SBA independently STG Duration Met Overweaver Goal (LTG) Pt to ambulate 800' during 6 MWT Independently without SBA LTG Duration 07/29/21 - Improving (1408' SBA ) One Impairment Pt does not have an appropriate home exercise program Short Term Goal (STG) Pt to be independent and compliant with an appropriate HEP STG Duration Met Assessment Summary Assessment Pt had increased pain in low back today, had 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 Physical Therapy Plan Frequency and Duration Frequency of Treatment 1-2x/wk Duration of Treatment 3 months Plan of Care Start Date 04/28/21 Plan of Care End Date 07/29/21 Therapeutic Interventions Therapeutic Interventions Aquatic Therapy,Balance Training,Coordination Training ,Gait Training,Home Exercise Program,Manual Therapy, Neuromuscular Re-education, Patient/Caregiver Education, Self-Care/Home Management, Therapeutic Activities, Therapeutic Exercises Modalities Cold Pack/Ice Massage,Electric Stimulation,Hot Packs, Ultrasound Next Visit Focus/Plan Next Note Type Treatment Note Next Visit Plan SLS, visual scanning, increased activity tolerance
--- NOTE | 2021-07-18 14:32 | PT.OTN ---
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) Physical Therapy Treatment Note PT-OP-A Visit Information Start: 09/17/19 18:00 Freq: Status: Active Protocol: Document 07/18/21 13:48 DCW (Rec: 07/18/21 14:31 DCW [id number]) Out-Patient Physical Therapy Visit Information Visit Information Visit Type Treatment Note Visit Start Time 13:48 Visit Stop Time 14:43 Total Visit Minutes 55 Visit Number 129 Number of PROVIDER SCRIBE Visits 0 Evaluation Information Evaluation Date 09/17/19 PT-OP-B Current Condition Start: 09/17/19 18:00 Freq: Status: Active Protocol: Document 09/17/19 12:00 DCW (Rec: 09/18/19 10:29 DCW [id number]) Current Condition History of Current Condition Onset Date 04/14/19 Current Complaints Hemiparesis secondary to CVA History of Current Condition Pt is a 69 year old male presenting to skilled outpatient physical therapy with left-side neglect, hemiparesis, loss of independence, and difficulty walking following an intraparenchymal hemorrhage on 04/14/19. Pt was transferred from [facility] to [facility], where a craniotomy was performed on 04/16/19. Pt completed 7 weeks of rehab/ recovery at [facility], and then underwent a second surgery on 06/26/19 to replace the skull fragment. Pt was then at an acute rehab facility 06/30-07/18/19, and since then has been receiving home health physical therapy. Pt presents today with limited left-sided function, left visual and physical neglect, difficulty with transfers, decreased activity tolerance, decreased gait, and many other secondary effects following his CVA. Pt has been working on ambulation with a vale walker with home health, and his states he has walked around 100' a few times, but always with a therapist, as she does not feel comfortable walking with him yet. Pt exclusively gets around at time of evaluation in a manual wheelchair. Pt's transfers have been going fairly well, with his caregivers performing CGA, however pt will occasionally need assistance with placement of his left UE and LE due to neglect. Pt's biggest complaint at the moment is leg pain, his reports they have tried PT, Massage, CBD il, Tylenol, Oxycodine, and Gabapentin, all with minimal benefit. Prior to CVA, pt was fully independent in all activities. Pt and have garegivers 8 hrs a day for assistance. Prior Treatments and Tests Craniotomy 04/16/19, Acute rehab, Skull fragment replacement 06/26/19, home health PT Prior Functional Status Baseline Function- ADL's Independent Baseline Function- Mobility Independent PT-OP-C Subjective Start: 09/17/19 18:00 Freq: Status: Active Protocol: Document 07/18/21 13:48 DCW (Rec: 07/18/21 14:31 DCW [id number]) OP-PT Subjective Patient Comments Patient Comments Reports he had lumbar x-rays on Sunday, now just waiting for results. PT-OP-D Balance Start: 08/04/20 14:14 Freq: Status: Active Protocol: Document 02/02/21 11:15 DCW (Rec: 02/02/21 11:56 DCW [id number]) Balance Tests Adler Balance Test Adler Balance Test Score 49/56 Adler Impairment Rating 1 to 19% Impaired (Score 45-55 ) Adler Balance Assessment Evaluation Sitting to Standing Ability Independent w/out Hands Unsupported Stance Safely- 2 minutes Sitting Unsupported, Feet on Floor Safely- 2 minutes Standing to Sitting Ability Safely, Minimal Hand Use Transfer Ability Safely, Minimal Hand Use Unsupported Stance- Eyes Closed Safely, 10 seconds Unsupported Stance- Eyes Open Independent, 1 minute Reaching Forward Standing Confidently, 10 inches Pick- Up Object From Floor Independent/Safe Look Behind Shoulder - Standing Shifts Weight Well Turning 360 Degrees Turns , < 4 secs Unsupported Stance, Alternating Feet on 4 Steps w/Supervision Stair Unsupported Tandem Stance Holds Tandem- 30 seconds Unilateral Leg Stance Lifts Leg/Unable to Hold Total Score Adler Total Score (out of 56 points) 49 Adler Impairment Rating 1 to 19% Impaired (Score 45-55 ) PT-OP-E Functional Tests Start: 05/04/20 15:15 Freq: Status: Active Protocol: Document 04/28/21 11:15 DCW (Rec: 04/28/21 11:58 DCW [id number]) Functional Tests 6 Minute Walk Test Distance 1408 Device Used none Comments 3.91 ft/sec Timed Up and Go (TUG) Score 8.36 seconds Comments 3-trial average (9.02, 8.46, 7 .60) TUG Impairment Rating 0% Impaired (Score 10) PT-OP-G Mobility & Gait Start: 09/17/19 18:00 Freq: Status: Active Protocol: Document 04/28/21 11:15 DCW (Rec: 04/28/21 11:58 DCW [id number]) OP Gait Assessment Gait Gait Assistance Required: Standby Assistance Distance (Feet) 1,408 Assistive Devices Assistive Device None Gait Deviations General Gait Pattern Antalgic,Ataxic,Flexed Trunk Factors Limiting Gait Function Factors Limiting Gait Function Abnormal Tonal Influences, Decreased Activity Tolerance, Decreased Sensation,Poor Safety Awareness,Respiratory Distress Stair Climbing Evaluation Evaluation Level of Assist On Stairs Standby Assistance Devices Stair Climbing Assistive Devices Right Railing Technique/Endurance Stair Climbing Direction Ascend and Descend Stair Climbing Technique Step Over Step Number of Steps Climbed 4 PT-OP-H Neuro Start: 09/17/19 18:00 Freq: Status: Active Protocol: Document 04/28/21 11:15 DCW (Rec: 04/28/21 11:58 DCW [id number]) Deep Tendon Reflex & Clonus Assessment Deep Tendon Reflex Left Achilles Deep Tendon Reflex 2+ Normal Left Patellar Deep Tendon Reflex 2+ Normal Ankle Clonus Left Clonus Assessment Sustained Muscle Tone Tone Assessment Left Lower Extremity Flexor Tone Description Mild Hypotonicity PT-OP-M Strength Start: 09/17/19 18:00 Freq: Status: Active Protocol: Document 04/28/21 11:15 DCW (Rec: 04/28/21 11:58 DCW [id number]) Hip Strength Hip Manual Muscle Testing Left Flexion (L2) 4+ Good+ Extension (S1) 5 Normal Abduction 4 Good Adduction 5 Normal External Rotation 4 Good Internal Rotation 4 Good Knee Strength Knee Manual Muscle Testing Left Flexion (S2) 4 Good Extension (L3) 5 Normal Ankle/Foot Strength Ankle and Foot Manual Muscle Testing Left Dorsiflexion (L4) 5 Normal Plantarflexion (S1) 4 Good Inversion 4 Good Eversion (S1) 4 Good PT-OP-Q Treatments Start: 09/17/19 18:00 Freq: Status: Active Protocol: Document 07/18/21 13:48 DCW (Rec: 07/18/21 14:31 DCW [id number]) Gym Equipment Shuttle Recovery Unilateral Heel Raises Details Left Resistance 25# Reps/Time calf stretch at end Unilateral Squats Details Left Resistance 62# Shuttle Recovery Platform Stable Bilateral Squats Resistance 100# Shuttle Recovery Platform Stable Reps/Time x50 Shuttle Balance Red Details Wide SRIDEVI (EO/EC) Comments Min Ax1 Therapeutic Exercises Sitting Exercises Dorsiflexion Sitting Exercise Name 4-way ankle flexion Side left Resistance Lv 2 Abduction Sitting Exercise Name Hip Abduction Side bilateral Resistance Lv 3 Equipment Used T-band Hamstring Curls Sitting Exercise Name HS Curls Side left Resistance Lv 3 Equipment Used T-band Gait Training Gait Activity No AD Description No AD Device Used None Level of Assistance SBA Distance/Duration 1020' Comments VCs to promote heel-toe gait, extend left knee during stance phase Neuro Re-Education Treatment Balance Activities Cone transfers Details Bending down ball pick-up from cone, kick cone over, ball toss to target PT-OP-R Modalities Start: 09/17/19 18:00 Freq: Status: Active Protocol: Document 07/18/21 13:48 DCW (Rec: 07/18/21 14:31 DCW [id number]) Electric Stimulation Electric Stimulation Interferential Current (IFC) Body Location L ant ankle Duration (Minutes) 15 Patient Position Sitting Combined With Heat/Cold Cold Pack PT-OP-S Aquatic Treatment Start: 09/17/19 18:00 Freq: Status: Active Protocol: Document 01/30/20 12:30 LJ (Rec: 01/30/20 14:54 LJ [id number]) Aquatics Treatment Pool Entry/Exit Pool Entry/Exit Method Lift Assistance Minimal Assistance Water Walking Slow motion Water Level Chest Level Walking Equipment wet vest, UE float, #2.5 ankle wt Level of Assistance Standby Assistance,Contact Guard Assistance,Moderate Assistance Comments emphasis on LLE extension stance phase January Water Level Chest Level Walking Equipment wet vest, UE float, #2.5 ankle wt Level of Assistance Standby Assistance,Contact Guard Assistance,Moderate Assistance,Verbal Cues Forward with emphasis on reciprocal gait pattern Water Level Chest Level Level of Assistance Standby Assistance,Contact Guard Assistance,Minimal Assistance,Verbal Cues Comments wetvest, sm float on LUE, #3. 75 ankle wt on LLE start stop walking forward and backward Water Level Chest Level Walking Equipment vest Level of Assistance Contact Guard Assistance, Verbal Cues Comments wetvest, sm float on LUE, #3. 75 ankle wt on LLE Sideways Water Level Chest Level Walking Equipment wet vest, UE float, #2.5 ankle wt Level of Assistance Standby Assistance,Contact Guard Assistance,Minimal Assistance,Verbal Cues Lower Extremity Exercises SL aquats Details HH on wall Body Position Standing Water Level Waist Level Equipment wetvest Reps/Duration 2x10 LLE Comments VC to extend knee knee extensions Details seated in lift chair Equipment Ankle Weight- 5.0# Reps/Duration 20 B Comments seated in lift SLS Details bracing LLE Body Position Standing Water Level Chest Level Equipment vest Reps/Duration 1 min marching at wall Water Level Chest Level Reps/Duration 2 min Comments opposite UE/LE tapping wall squats Body Position Standing Water Level Chest Level Reps/Duration 20x Lower Extremity Stretches adductors Comments seated in chair Gastroc Body Position Sitting Reps/Duration 2 x 45 sec B Comments manual assist hip flexors Details at wall Body Position Standing Water Level Waist Level Reps/Duration 2x45 Comments manually assisted HS Details at wall Body Position Sitting Water Level Waist Level Equipment wet vest Reps/Duration 2x45 Comments sitting in lift chair assisted Upper Extremity Exercises breastroke UE's Body Position Standing Water Level Chest Level Reps/Duration 3 min Comments during walking and deep water hor ab/ad Water Level Chest Level Comments during side walking, CGA Balance step ups Details step ups/down using boxes Body Position Standing Water Level Waist Level Equipment 8 boxes Comments mod verbal cues for coordination Dendron Activities Dendron Activities Bicycle,Cross Country Equipment wet vest, white noodle Duration 7 min Comments Guy and cues for vertical alignmernt. PT-OP-T Assessment and Plan Start: 09/17/19 18:00 Freq: Status: Active Protocol: Document 07/18/21 13:48 DCW (Rec: 07/18/21 14:31 DCW [id number]) Physical Therapy Assessment Impairments Impairments Activity Tolerance,Balance, Coordination,Functional Activities,Functional Mobility ,Gait,Pain,ROM,Sensation, Strength,Tone,Transfers Goals Six Impairment Decreased Static Balance Short Term Goal (STG) Pt to score <9 seconds on TUG STG Duration Met Duplicating Machine Mechanic Goal (LTG) NEW GOAL: Pt to score 53/56 on Adler Balance Scale LTG Duration 07/29/21 Five Impairment Pt uses R rail and step-over gait pattern ascending stairs Duplicating Machine Mechanic Goal (LTG) Pt to ascend/descend stairs independently without use of rail LTG Duration 07/29/21 - Improving Four Impairment Pt demonstrates strength impairment throughout left LE Duplicating Machine Mechanic Goal (LTG) Pt to display MMT >3+/5 through L LE LTG Duration Met Three Impairment Pt SBA for transfers and bed mobility d/t Left Neglect Duplicating Machine Mechanic Goal (LTG) Pt to demonstrate independent transfers and bed mobility with an ability to address left LE and UE 80% of the time LTG Duration Met Two Impairment Pt ambulates 280' CGA /s an AD Short Term Goal (STG) Pt to ambulate 400' SBA independently STG Duration Met Mcc Goal (LTG) Pt to ambulate 800' during 6 MWT Independently without SBA LTG Duration 07/29/21 - Improving (1408' SBA ) One Impairment Pt does not have an appropriate home exercise program Short Term Goal (STG) Pt to be independent and compliant with an appropriate HEP STG Duration Met Assessment Summary Assessment Pt moving better than last week with his back pain, but still feeling that it limits his functional mobility. Physical Therapy Plan Frequency and Duration Frequency of Treatment 1-2x/wk Duration of Treatment 3 months Plan of Care Start Date 04/28/21 Plan of Care End Date 07/29/21 Therapeutic Interventions Therapeutic Interventions Aquatic Therapy,Balance Training,Coordination Training ,Gait Training,Home Exercise Program,Manual Therapy, Neuromuscular Re-education, Patient/Caregiver Education, Self-Care/Home Management, Therapeutic Activities, Therapeutic Exercises Modalities Cold Pack/Ice Massage,Electric Stimulation,Hot Packs, Ultrasound Next Visit Focus/Plan Next Note Type Treatment Note Next Visit Plan SLS, visual scanning, increased activity tolerance
--- NOTE | 2021-07-27 14:29 | PT.OTN ---
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) Physical Therapy Treatment Note PT-OP-A Visit Information Start: 09/17/19 18:00 Freq: Status: Active Protocol: Document 07/27/21 13:45 DCW (Rec: 07/27/21 14:29 DCW [id number]) Out-Patient Physical Therapy Visit Information Visit Information Visit Type Treatment Note Visit Start Time 13:45 Visit Stop Time 14:40 Total Visit Minutes 55 Visit Number 130 Number of SENIOR APPLICATION SOFTWARE ENGINEER Visits 0 Evaluation Information Evaluation Date 09/17/19 PT-OP-B Current Condition Start: 09/17/19 18:00 Freq: Status: Active Protocol: Document 09/17/19 12:00 DCW (Rec: 09/18/19 10:29 DCW [id number]) Current Condition History of Current Condition Onset Date 04/14/19 Current Complaints Hemiparesis secondary to CVA History of Current Condition Pt is a 69 year old male presenting to skilled outpatient physical therapy with left-side neglect, hemiparesis, loss of independence, and difficulty walking following an intraparenchymal hemorrhage on 04/14/19. Pt was transferred from [facility] to [facility], where a craniotomy was performed on 04/16/19. Pt completed 7 weeks of rehab/ recovery at [facility], and then underwent a second surgery on 06/26/19 to replace the skull fragment. Pt was then at an acute rehab facility 06/30-07/18/19, and since then has been receiving home health physical therapy. Pt presents today with limited left-sided function, left visual and physical neglect, difficulty with transfers, decreased activity tolerance, decreased gait, and many other secondary effects following his CVA. Pt has been working on ambulation with a vale walker with home health, and his states he has walked around 100' a few times, but always with a therapist, as she does not feel comfortable walking with him yet. Pt exclusively gets around at time of evaluation in a manual wheelchair. Pt's transfers have been going fairly well, with his caregivers performing CGA, however pt will occasionally need assistance with placement of his left UE and LE due to neglect. Pt's biggest complaint at the moment is leg pain, his reports they have tried PT, Massage, CBD il, Tylenol, Oxycodine, and Gabapentin, all with minimal benefit. Prior to CVA, pt was fully independent in all activities. Pt and have garegivers 8 hrs a day for assistance. Prior Treatments and Tests Craniotomy 04/16/19, Acute rehab, Skull fragment replacement 06/26/19, home health PT Prior Functional Status Baseline Function- ADL's Independent Baseline Function- Mobility Independent PT-OP-C Subjective Start: 09/17/19 18:00 Freq: Status: Active Protocol: Document 07/27/21 13:45 DCW (Rec: 07/27/21 14:29 DCW [id number]) OP-PT Subjective Patient Comments Patient Comments Pt reports that in the process of getting some lumbar imaging done, they determined that her may have enlargement of the abdominal aorta, so he had an US yeszterday, and is anxiously awaiting the results. PT-OP-D Balance Start: 08/04/20 14:14 Freq: Status: Active Protocol: Document 02/02/21 11:15 DCW (Rec: 02/02/21 11:56 DCW [id number]) Balance Tests Adler Balance Test Adler Balance Test Score 49/56 Adler Impairment Rating 1 to 19% Impaired (Score 45-55 ) Adler Balance Assessment Evaluation Sitting to Standing Ability Independent w/out Hands Unsupported Stance Safely- 2 minutes Sitting Unsupported, Feet on Floor Safely- 2 minutes Standing to Sitting Ability Safely, Minimal Hand Use Transfer Ability Safely, Minimal Hand Use Unsupported Stance- Eyes Closed Safely, 10 seconds Unsupported Stance- Eyes Open Independent, 1 minute Reaching Forward Standing Confidently, 10 inches Pick- Up Object From Floor Independent/Safe Look Behind Shoulder - Standing Shifts Weight Well Turning 360 Degrees Turns , < 4 secs Unsupported Stance, Alternating Feet on 4 Steps w/Supervision Stair Unsupported Tandem Stance Holds Tandem- 30 seconds Unilateral Leg Stance Lifts Leg/Unable to Hold Total Score Adler Total Score (out of 56 points) 49 Adler Impairment Rating 1 to 19% Impaired (Score 45-55 ) PT-OP-E Functional Tests Start: 05/04/20 15:15 Freq: Status: Active Protocol: Document 04/28/21 11:15 DCW (Rec: 04/28/21 11:58 DCW [id number]) Functional Tests 6 Minute Walk Test Distance 1408 Device Used none Comments 3.91 ft/sec Timed Up and Go (TUG) Score 8.36 seconds Comments 3-trial average (9.02, 8.46, 7 .60) TUG Impairment Rating 0% Impaired (Score 10) PT-OP-G Mobility & Gait Start: 09/17/19 18:00 Freq: Status: Active Protocol: Document 04/28/21 11:15 DCW (Rec: 04/28/21 11:58 DCW [id number]) OP Gait Assessment Gait Gait Assistance Required: Standby Assistance Distance (Feet) 1,408 Assistive Devices Assistive Device None Gait Deviations General Gait Pattern Antalgic,Ataxic,Flexed Trunk Factors Limiting Gait Function Factors Limiting Gait Function Abnormal Tonal Influences, Decreased Activity Tolerance, Decreased Sensation,Poor Safety Awareness,Respiratory Distress Stair Climbing Evaluation Evaluation Level of Assist On Stairs Standby Assistance Devices Stair Climbing Assistive Devices Right Railing Technique/Endurance Stair Climbing Direction Ascend and Descend Stair Climbing Technique Step Over Step Number of Steps Climbed 4 PT-OP-H Neuro Start: 09/17/19 18:00 Freq: Status: Active Protocol: Document 04/28/21 11:15 DCW (Rec: 04/28/21 11:58 DCW [id number]) Deep Tendon Reflex & Clonus Assessment Deep Tendon Reflex Left Achilles Deep Tendon Reflex 2+ Normal Left Patellar Deep Tendon Reflex 2+ Normal Ankle Clonus Left Clonus Assessment Sustained Muscle Tone Tone Assessment Left Lower Extremity Flexor Tone Description Mild Hypotonicity PT-OP-M Strength Start: 09/17/19 18:00 Freq: Status: Active Protocol: Document 04/28/21 11:15 DCW (Rec: 04/28/21 11:58 DCW [id number]) Hip Strength Hip Manual Muscle Testing Left Flexion (L2) 4+ Good+ Extension (S1) 5 Normal Abduction 4 Good Adduction 5 Normal External Rotation 4 Good Internal Rotation 4 Good Knee Strength Knee Manual Muscle Testing Left Flexion (S2) 4 Good Extension (L3) 5 Normal Ankle/Foot Strength Ankle and Foot Manual Muscle Testing Left Dorsiflexion (L4) 5 Normal Plantarflexion (S1) 4 Good Inversion 4 Good Eversion (S1) 4 Good PT-OP-Q Treatments Start: 09/17/19 18:00 Freq: Status: Active Protocol: Document 07/27/21 13:45 DCW (Rec: 07/27/21 14:29 DCW [id number]) Gym Equipment Shuttle Recovery Unilateral Heel Raises Details Left Resistance 25# Reps/Time calf stretch at end Unilateral Squats Details Left Resistance 62# Shuttle Recovery Platform Stable Bilateral Squats Resistance 100# Shuttle Recovery Platform Stable Reps/Time x50 Shuttle Balance Red Details Wide SRIDEVI (EO/EC) Comments Min Ax1 Therapeutic Exercises Sitting Exercises Dorsiflexion Sitting Exercise Name 4-way ankle flexion Side left Resistance Lv 2 Abduction Sitting Exercise Name Hip Abduction Side bilateral Resistance Lv 3 Equipment Used T-band Hamstring Curls Sitting Exercise Name HS Curls Side left Resistance Lv 3 Equipment Used T-band Gait Training Gait Activity No AD Description No AD Device Used None Level of Assistance SBA Distance/Duration 950' Comments VCs to promote heel-toe gait, extend left knee during stance phase Neuro Re-Education Treatment Balance Activities Cone transfers Details Bending down ball pick-up from cone, kick cone over, ball toss to target PT-OP-R Modalities Start: 09/17/19 18:00 Freq: Status: Active Protocol: Document 07/27/21 13:45 DCW (Rec: 07/27/21 14:29 DCW [id number]) Electric Stimulation Electric Stimulation Interferential Current (IFC) Body Location L ant ankle Duration (Minutes) 15 Patient Position Sitting Combined With Heat/Cold Cold Pack PT-OP-S Aquatic Treatment Start: 09/17/19 18:00 Freq: Status: Active Protocol: Document 01/30/20 12:30 LJ (Rec: 01/30/20 14:54 LJ [id number]) Aquatics Treatment Pool Entry/Exit Pool Entry/Exit Method Lift Assistance Minimal Assistance Water Walking Slow motion Water Level Chest Level Walking Equipment wet vest, UE float, #2.5 ankle wt Level of Assistance Standby Assistance,Contact Guard Assistance,Moderate Assistance Comments emphasis on LLE extension stance phase January Water Level Chest Level Walking Equipment wet vest, UE float, #2.5 ankle wt Level of Assistance Standby Assistance,Contact Guard Assistance,Moderate Assistance,Verbal Cues Forward with emphasis on reciprocal gait pattern Water Level Chest Level Level of Assistance Standby Assistance,Contact Guard Assistance,Minimal Assistance,Verbal Cues Comments wetvest, sm float on LUE, #3. 75 ankle wt on LLE start stop walking forward and backward Water Level Chest Level Walking Equipment vest Level of Assistance Contact Guard Assistance, Verbal Cues Comments wetvest, sm float on LUE, #3. 75 ankle wt on LLE Sideways Water Level Chest Level Walking Equipment wet vest, UE float, #2.5 ankle wt Level of Assistance Standby Assistance,Contact Guard Assistance,Minimal Assistance,Verbal Cues Lower Extremity Exercises SL aquats Details HH on wall Body Position Standing Water Level Waist Level Equipment wetvest Reps/Duration 2x10 LLE Comments VC to extend knee knee extensions Details seated in lift chair Equipment Ankle Weight- 5.0# Reps/Duration 20 B Comments seated in lift SLS Details bracing LLE Body Position Standing Water Level Chest Level Equipment vest Reps/Duration 1 min marching at wall Water Level Chest Level Reps/Duration 2 min Comments opposite UE/LE tapping wall squats Body Position Standing Water Level Chest Level Reps/Duration 20x Lower Extremity Stretches adductors Comments seated in chair Gastroc Body Position Sitting Reps/Duration 2 x 45 sec B Comments manual assist hip flexors Details at wall Body Position Standing Water Level Waist Level Reps/Duration 2x45 Comments manually assisted HS Details at wall Body Position Sitting Water Level Waist Level Equipment wet vest Reps/Duration 2x45 Comments sitting in lift chair assisted Upper Extremity Exercises breastroke UE's Body Position Standing Water Level Chest Level Reps/Duration 3 min Comments during walking and deep water hor ab/ad Water Level Chest Level Comments during side walking, CGA Balance step ups Details step ups/down using boxes Body Position Standing Water Level Waist Level Equipment 8 boxes Comments mod verbal cues for coordination [place] Activities [place] Activities Bicycle,Cross Country Equipment wet vest, white noodle Duration 7 min Comments Guy and cues for vertical alignmernt. PT-OP-T Assessment and Plan Start: 09/17/19 18:00 Freq: Status: Active Protocol: Document 07/27/21 13:45 DCW (Rec: 07/27/21 14:29 DCW [id number]) Physical Therapy Assessment Impairments Impairments Activity Tolerance,Balance, Coordination,Functional Activities,Functional Mobility ,Gait,Pain,ROM,Sensation, Strength,Tone,Transfers Goals Six Impairment Decreased Static Balance Short Term Goal (STG) Pt to score <9 seconds on TUG STG Duration Met Jail Goal (LTG) NEW GOAL: Pt to score 53/56 on Adler Balance Scale LTG Duration 07/29/21 Five Impairment Pt uses R rail and step-over gait pattern ascending stairs Media Librarian Goal (LTG) Pt to ascend/descend stairs independently without use of rail LTG Duration 07/29/21 - Improving Four Impairment Pt demonstrates strength impairment throughout left LE Jail Goal (LTG) Pt to display MMT >3+/5 through L LE LTG Duration Met Three Impairment Pt SBA for transfers and bed mobility d/t Left Neglect Media Librarian Goal (LTG) Pt to demonstrate independent transfers and bed mobility with an ability to address left LE and UE 80% of the time LTG Duration Met Two Impairment Pt ambulates 280' CGA /s an AD Short Term Goal (STG) Pt to ambulate 400' SBA independently STG Duration Met Media Librarian Goal (LTG) Pt to ambulate 800' during 6 MWT Independently without SBA LTG Duration 07/29/21 - Improving (1408' SBA ) One Impairment Pt does not have an appropriate home exercise program Short Term Goal (STG) Pt to be independent and compliant with an appropriate HEP STG Duration Met Assessment Summary Assessment Pt back didn't bother him much this week, still having some difficulty with fatigue and SOB. Physical Therapy Plan Frequency and Duration Frequency of Treatment 1-2x/wk Duration of Treatment 3 months Plan of Care Start Date 04/28/21 Plan of Care End Date 07/29/21 Therapeutic Interventions Therapeutic Interventions Aquatic Therapy,Balance Training,Coordination Training ,Gait Training,Home Exercise Program,Manual Therapy, Neuromuscular Re-education, Patient/Caregiver Education, Self-Care/Home Management, Therapeutic Activities, Therapeutic Exercises Modalities Cold Pack/Ice Massage,Electric Stimulation,Hot Packs, Ultrasound Next Visit Focus/Plan Next Note Type Treatment Note Next Visit Plan SLS, visual scanning, increased activity tolerance
--- NOTE | 2021-08-04 17:50 | PT.OTN ---
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) Physical Therapy Treatment Note PT-OP-A Visit Information Start: 09/17/19 18:00 Freq: Status: Active Protocol: Document 08/04/21 16:50 DCW (Rec: 08/04/21 17:50 DCW [id number]) Out-Patient Physical Therapy Visit Information Visit Information Visit Type Progress Note Visit Start Time 16:50 Visit Stop Time 17:40 Total Visit Minutes 50 Visit Number 131 Number of STRAPPER OPERATOR Visits 0 Evaluation Information Evaluation Date 09/17/19 PT-OP-B Current Condition Start: 09/17/19 18:00 Freq: Status: Active Protocol: Document 09/17/19 12:00 DCW (Rec: 09/18/19 10:29 DCW [id number]) Current Condition History of Current Condition Onset Date 04/14/19 Current Complaints Hemiparesis secondary to CVA History of Current Condition Pt is a 69 year old male presenting to skilled outpatient physical therapy with left-side neglect, hemiparesis, loss of independence, and difficulty walking following an intraparenchymal hemorrhage on 04/14/19. Pt was transferred from [facility] to [facility], where a craniotomy was performed on 04/16/19. Pt completed 7 weeks of rehab/ recovery at [facility], and then underwent a second surgery on 06/26/19 to replace the skull fragment. Pt was then at an acute rehab facility 06/30-07/18/19, and since then has been receiving home health physical therapy. Pt presents today with limited left-sided function, left visual and physical neglect, difficulty with transfers, decreased activity tolerance, decreased gait, and many other secondary effects following his CVA. Pt has been working on ambulation with a vale walker with home health, and his states he has walked around 100' a few times, but always with a therapist, as she does not feel comfortable walking with him yet. Pt exclusively gets around at time of evaluation in a manual wheelchair. Pt's transfers have been going fairly well, with his caregivers performing CGA, however pt will occasionally need assistance with placement of his left UE and LE due to neglect. Pt's biggest complaint at the moment is leg pain, his reports they have tried PT, Massage, CBD il, Tylenol, Oxycodine, and Gabapentin, all with minimal benefit. Prior to CVA, pt was fully independent in all activities. Pt and have garegivers 8 hrs a day for assistance. Prior Treatments and Tests Craniotomy 04/16/19, Acute rehab, Skull fragment replacement 06/26/19, home health PT Prior Functional Status Baseline Function- ADL's Independent Baseline Function- Mobility Independent PT-OP-C Subjective Start: 09/17/19 18:00 Freq: Status: Active Protocol: Document 08/04/21 16:50 DCW (Rec: 08/04/21 17:50 DCW [id number]) OP-PT Subjective Patient Comments Patient Comments Pt concerned about how his recent increased back pain will affect his scores during today's testing PT-OP-D Balance Start: 08/04/20 14:14 Freq: Status: Active Protocol: Document 08/04/21 16:50 DCW (Rec: 08/04/21 17:40 DCW [id number]) Balance Tests Adler Balance Test Adler Balance Test Score 51/56 Adler Impairment Rating 1 to 19% Impaired (Score 45-55 ) Adler Balance Assessment Evaluation Sitting to Standing Ability Independent w/out Hands Unsupported Stance Safely- 2 minutes Sitting Unsupported, Feet on Floor Safely- 2 minutes Standing to Sitting Ability Safely, Minimal Hand Use Transfer Ability Safely, Minimal Hand Use Unsupported Stance- Eyes Closed Safely, 10 seconds Unsupported Stance- Eyes Open Independent, 1 minute Reaching Forward Standing Confidently, 10 inches Pick- Up Object From Floor Independent/Safe Look Behind Shoulder - Standing Shifts Weight Well Turning 360 Degrees Turns , < 4 secs Unsupported Stance, Alternating Feet on (I)- 8 Steps in 20 secs Stair Unsupported Tandem Stance Holds Tandem- 30 seconds Unilateral Leg Stance Lifts Leg/Unable to Hold Total Score Adler Total Score (out of 56 points) 51 Adler Impairment Rating 1 to 19% Impaired (Score 45-55 ) PT-OP-E Functional Tests Start: 05/04/20 15:15 Freq: Status: Active Protocol: Document 08/04/21 16:50 DCW (Rec: 08/04/21 17:40 DCW [id number]) Functional Tests 6 Minute Walk Test Distance 1228' Device Used none Comments 3.41 ft/sec PT-OP-G Mobility & Gait Start: 09/17/19 18:00 Freq: Status: Active Protocol: Document 08/04/21 16:50 DCW (Rec: 08/04/21 17:40 DCW [id number]) OP Gait Assessment Gait Gait Assistance Required: Standby Assistance Distance (Feet) 1,228 Assistive Devices Assistive Device None Gait Deviations General Gait Pattern Antalgic,Ataxic,Flexed Trunk Factors Limiting Gait Function Factors Limiting Gait Function Abnormal Tonal Influences, Decreased Activity Tolerance, Decreased Sensation,Poor Safety Awareness,Respiratory Distress Stair Climbing Evaluation Evaluation Level of Assist On Stairs Standby Assistance Devices Stair Climbing Assistive Devices Right Railing Technique/Endurance Stair Climbing Direction Ascend and Descend Stair Climbing Technique Step Over Step Number of Steps Climbed 4 PT-OP-H Neuro Start: 09/17/19 18:00 Freq: Status: Active Protocol: Document 04/28/21 11:15 DCW (Rec: 04/28/21 11:58 DCW [id number]) Deep Tendon Reflex & Clonus Assessment Deep Tendon Reflex Left Achilles Deep Tendon Reflex 2+ Normal Left Patellar Deep Tendon Reflex 2+ Normal Ankle Clonus Left Clonus Assessment Sustained Muscle Tone Tone Assessment Left Lower Extremity Flexor Tone Description Mild Hypotonicity PT-OP-M Strength Start: 09/17/19 18:00 Freq: Status: Active Protocol: Document 04/28/21 11:15 DCW (Rec: 04/28/21 11:58 DCW [id number]) Hip Strength Hip Manual Muscle Testing Left Flexion (L2) 4+ Good+ Extension (S1) 5 Normal Abduction 4 Good Adduction 5 Normal External Rotation 4 Good Internal Rotation 4 Good Knee Strength Knee Manual Muscle Testing Left Flexion (S2) 4 Good Extension (L3) 5 Normal Ankle/Foot Strength Ankle and Foot Manual Muscle Testing Left Dorsiflexion (L4) 5 Normal Plantarflexion (S1) 4 Good Inversion 4 Good Eversion (S1) 4 Good PT-OP-Q Treatments Start: 09/17/19 18:00 Freq: Status: Active Protocol: Document 08/04/21 16:50 DCW (Rec: 08/04/21 17:50 DCW [id number]) Neuro Re-Education Treatment Other Activities Testing Details 6MWT, Adler PT-OP-R Modalities Start: 09/17/19 18:00 Freq: Status: Active Protocol: Document 07/27/21 13:45 DCW (Rec: 07/27/21 14:29 DCW [id number]) Electric Stimulation Electric Stimulation Interferential Current (IFC) Body Location L ant ankle Duration (Minutes) 15 Patient Position Sitting Combined With Heat/Cold Cold Pack PT-OP-S Aquatic Treatment Start: 09/17/19 18:00 Freq: Status: Active Protocol: Document 01/30/20 12:30 LJ (Rec: 01/30/20 14:54 LJ [id number]) Aquatics Treatment Pool Entry/Exit Pool Entry/Exit Method Lift Assistance Minimal Assistance Water Walking Slow motion Water Level Chest Level Walking Equipment wet vest, UE float, #2.5 ankle wt Level of Assistance Standby Assistance,Contact Guard Assistance,Moderate Assistance Comments emphasis on LLE extension stance phase Reagan March Water Level Chest Level Walking Equipment wet vest, UE float, #2.5 ankle wt Level of Assistance Standby Assistance,Contact Guard Assistance,Moderate Assistance,Verbal Cues Forward with emphasis on reciprocal gait pattern Water Level Chest Level Level of Assistance Standby Assistance,Contact Guard Assistance,Minimal Assistance,Verbal Cues Comments wetvest, sm float on LUE, #3. 75 ankle wt on LLE start stop walking forward and backward Water Level Chest Level Walking Equipment vest Level of Assistance Contact Guard Assistance, Verbal Cues Comments wetvest, sm float on LUE, #3. 75 ankle wt on LLE Sideways Water Level Chest Level Walking Equipment wet vest, UE float, #2.5 ankle wt Level of Assistance Standby Assistance,Contact Guard Assistance,Minimal Assistance,Verbal Cues Lower Extremity Exercises SL aquats Details HH on wall Body Position Standing Water Level Waist Level Equipment wetvest Reps/Duration 2x10 LLE Comments VC to extend knee knee extensions Details seated in lift chair Equipment Ankle Weight- 5.0# Reps/Duration 20 B Comments seated in lift SLS Details bracing LLE Body Position Standing Water Level Chest Level Equipment vest Reps/Duration 1 min marching at wall Water Level Chest Level Reps/Duration 2 min Comments opposite UE/LE tapping wall squats Body Position Standing Water Level Chest Level Reps/Duration 20x Lower Extremity Stretches adductors Comments seated in chair Gastroc Body Position Sitting Reps/Duration 2 x 45 sec B Comments manual assist hip flexors Details at wall Body Position Standing Water Level Waist Level Reps/Duration 2x45 Comments manually assisted HS Details at wall Body Position Sitting Water Level Waist Level Equipment wet vest Reps/Duration 2x45 Comments sitting in lift chair assisted Upper Extremity Exercises breastroke UE's Body Position Standing Water Level Chest Level Reps/Duration 3 min Comments during walking and deep water hor ab/ad Water Level Chest Level Comments during side walking, CGA Balance step ups Details step ups/down using boxes Body Position Standing Water Level Waist Level Equipment 8 boxes Comments mod verbal cues for coordination [place] Activities [place] Activities Bicycle,Cross Country Equipment wet vest, white noodle Duration 7 min Comments Guy and cues for vertical alignmernt. PT-OP-T Assessment and Plan Start: 09/17/19 18:00 Freq: Status: Active Protocol: Document 08/04/21 16:50 DCW (Rec: 08/04/21 17:50 DCW [id number]) Physical Therapy Assessment Impairments Impairments Activity Tolerance,Balance, Coordination,Functional Activities,Functional Mobility ,Gait,Pain,ROM,Sensation, Strength,Tone,Transfers Goals Six Impairment Decreased Static Balance Short Term Goal (STG) Pt to score <9 seconds on TUG STG Duration Met Sound Technician Goal (LTG) NEW GOAL: Pt to score 53/56 on Adler Balance Scale LTG Duration 10/04/21 - Improving, 51/56 Five Impairment Pt uses R rail and step-over gait pattern ascending stairs Sound Technician Goal (LTG) Pt to ascend/descend stairs independently without use of rail LTG Duration 10/04/21 - Improving Four Impairment Pt demonstrates strength impairment throughout left LE Care Home Goal (LTG) Pt to display MMT >3+/5 through L LE LTG Duration Met Three Impairment Pt SBA for transfers and bed mobility d/t Left Neglect Care Home Goal (LTG) Pt to demonstrate independent transfers and bed mobility with an ability to address left LE and UE 80% of the time LTG Duration Met Two Impairment Pt ambulates 280' CGA /s an AD Short Term Goal (STG) Pt to ambulate 400' SBA independently STG Duration Met Care Home Goal (LTG) Pt to ambulate 800' during 6 MWT Independently without SBA LTG Duration 11/03/21 - Improving (1408' SBA) One Impairment Pt does not have an appropriate home exercise program Short Term Goal (STG) Pt to be independent and compliant with an appropriate HEP STG Duration Met Assessment Summary Assessment Pt overall doing very well with his post-CVA rehab. Adler scoreing, gait, and strength all continue to improve. Discussed with pt and his today need to use wheelchair less. There is still some resistance with this idea due to feeling uncomfortable with his ongoing left visual neglect. Agreeable to work more on visual exercises and visual scanning in therapy in return to reduce reliance on w /c. At this point, pt's ongoing difficulty with back pain, PEREZ, and visual neglect are the biggest limiting factor to further recovery. Physical Therapy Plan Frequency and Duration Frequency of Treatment 1-2x/wk Duration of Treatment 3 months Plan of Care Start Date 04/28/21 Plan of Care End Date 07/29/21 Therapeutic Interventions Therapeutic Interventions Aquatic Therapy,Balance Training,Coordination Training ,Gait Training,Home Exercise Program,Manual Therapy, Neuromuscular Re-education, Patient/Caregiver Education, Self-Care/Home Management, Therapeutic Activities, Therapeutic Exercises Modalities Cold Pack/Ice Massage,Electric Stimulation,Hot Packs, Ultrasound Next Visit Focus/Plan Next Note Type Treatment Note Next Visit Plan SLS, visual scanning, increased activity tolerance
--- NOTE | 2021-08-04 17:50 | PT.OTN ---
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) Physical Therapy Treatment Note PT-OP-A Visit Information Start: 09/17/19 18:00 Freq: Status: Active Protocol: Document 08/04/21 16:50 DCW (Rec: 08/04/21 17:50 DCW [id number]) Out-Patient Physical Therapy Visit Information Visit Information Visit Type Progress Note Visit Start Time 16:50 Visit Stop Time 17:40 Total Visit Minutes 50 Visit Number 131 Number of GRAPHIC ILLUSTRATOR Visits 0 Evaluation Information Evaluation Date 09/17/19 PT-OP-B Current Condition Start: 09/17/19 18:00 Freq: Status: Active Protocol: Document 09/17/19 12:00 DCW (Rec: 09/18/19 10:29 DCW [id number]) Current Condition History of Current Condition Onset Date 04/14/19 Current Complaints Hemiparesis secondary to CVA History of Current Condition Pt is a 69 year old male presenting to skilled outpatient physical therapy with left-side neglect, hemiparesis, loss of independence, and difficulty walking following an intraparenchymal hemorrhage on 04/14/19. Pt was transferred from [facility] to [facility], where a craniotomy was performed on 04/16/19. Pt completed 7 weeks of rehab/ recovery at [facility], and then underwent a second surgery on 06/26/19 to replace the skull fragment. Pt was then at an acute rehab facility 06/30-07/18/19, and since then has been receiving home health physical therapy. Pt presents today with limited left-sided function, left visual and physical neglect, difficulty with transfers, decreased activity tolerance, decreased gait, and many other secondary effects following his CVA. Pt has been working on ambulation with a vale walker with home health, and his states he has walked around 100' a few times, but always with a therapist, as she does not feel comfortable walking with him yet. Pt exclusively gets around at time of evaluation in a manual wheelchair. Pt's transfers have been going fairly well, with his caregivers performing CGA, however pt will occasionally need assistance with placement of his left UE and LE due to neglect. Pt's biggest complaint at the moment is leg pain, his reports they have tried PT, Massage, CBD il, Tylenol, Oxycodine, and Gabapentin, all with minimal benefit. Prior to CVA, pt was fully independent in all activities. Pt and have garegivers 8 hrs a day for assistance. Prior Treatments and Tests Craniotomy 04/16/19, Acute rehab, Skull fragment replacement 06/26/19, home health PT Prior Functional Status Baseline Function- ADL's Independent Baseline Function- Mobility Independent PT-OP-C Subjective Start: 09/17/19 18:00 Freq: Status: Active Protocol: Document 08/04/21 16:50 DCW (Rec: 08/04/21 17:50 DCW [id number]) OP-PT Subjective Patient Comments Patient Comments Pt concerned about how his recent increased back pain will affect his scores during today's testing PT-OP-D Balance Start: 08/04/20 14:14 Freq: Status: Active Protocol: Document 08/04/21 16:50 DCW (Rec: 08/04/21 17:40 DCW [id number]) Balance Tests Adler Balance Test Adler Balance Test Score 51/56 Adler Impairment Rating 1 to 19% Impaired (Score 45-55 ) Adler Balance Assessment Evaluation Sitting to Standing Ability Independent w/out Hands Unsupported Stance Safely- 2 minutes Sitting Unsupported, Feet on Floor Safely- 2 minutes Standing to Sitting Ability Safely, Minimal Hand Use Transfer Ability Safely, Minimal Hand Use Unsupported Stance- Eyes Closed Safely, 10 seconds Unsupported Stance- Eyes Open Independent, 1 minute Reaching Forward Standing Confidently, 10 inches Pick- Up Object From Floor Independent/Safe Look Behind Shoulder - Standing Shifts Weight Well Turning 360 Degrees Turns , < 4 secs Unsupported Stance, Alternating Feet on (I)- 8 Steps in 20 secs Stair Unsupported Tandem Stance Holds Tandem- 30 seconds Unilateral Leg Stance Lifts Leg/Unable to Hold Total Score Adler Total Score (out of 56 points) 51 Adler Impairment Rating 1 to 19% Impaired (Score 45-55 ) PT-OP-E Functional Tests Start: 05/04/20 15:15 Freq: Status: Active Protocol: Document 08/04/21 16:50 DCW (Rec: 08/04/21 17:40 DCW [id number]) Functional Tests 6 Minute Walk Test Distance 1228' Device Used none Comments 3.41 ft/sec PT-OP-G Mobility & Gait Start: 09/17/19 18:00 Freq: Status: Active Protocol: Document 08/04/21 16:50 DCW (Rec: 08/04/21 17:40 DCW [id number]) OP Gait Assessment Gait Gait Assistance Required: Standby Assistance Distance (Feet) 1,228 Assistive Devices Assistive Device None Gait Deviations General Gait Pattern Antalgic,Ataxic,Flexed Trunk Factors Limiting Gait Function Factors Limiting Gait Function Abnormal Tonal Influences, Decreased Activity Tolerance, Decreased Sensation,Poor Safety Awareness,Respiratory Distress Stair Climbing Evaluation Evaluation Level of Assist On Stairs Standby Assistance Devices Stair Climbing Assistive Devices Right Railing Technique/Endurance Stair Climbing Direction Ascend and Descend Stair Climbing Technique Step Over Step Number of Steps Climbed 4 PT-OP-H Neuro Start: 09/17/19 18:00 Freq: Status: Active Protocol: Document 04/28/21 11:15 DCW (Rec: 04/28/21 11:58 DCW [id number]) Deep Tendon Reflex & Clonus Assessment Deep Tendon Reflex Left Achilles Deep Tendon Reflex 2+ Normal Left Patellar Deep Tendon Reflex 2+ Normal Ankle Clonus Left Clonus Assessment Sustained Muscle Tone Tone Assessment Left Lower Extremity Flexor Tone Description Mild Hypotonicity PT-OP-M Strength Start: 09/17/19 18:00 Freq: Status: Active Protocol: Document 04/28/21 11:15 DCW (Rec: 04/28/21 11:58 DCW [id number]) Hip Strength Hip Manual Muscle Testing Left Flexion (L2) 4+ Good+ Extension (S1) 5 Normal Abduction 4 Good Adduction 5 Normal External Rotation 4 Good Internal Rotation 4 Good Knee Strength Knee Manual Muscle Testing Left Flexion (S2) 4 Good Extension (L3) 5 Normal Ankle/Foot Strength Ankle and Foot Manual Muscle Testing Left Dorsiflexion (L4) 5 Normal Plantarflexion (S1) 4 Good Inversion 4 Good Eversion (S1) 4 Good PT-OP-Q Treatments Start: 09/17/19 18:00 Freq: Status: Active Protocol: Document 08/04/21 16:50 DCW (Rec: 08/04/21 17:50 DCW [id number]) Neuro Re-Education Treatment Other Activities Testing Details 6MWT, Adler PT-OP-R Modalities Start: 09/17/19 18:00 Freq: Status: Active Protocol: Document 07/27/21 13:45 DCW (Rec: 07/27/21 14:29 DCW [id number]) Electric Stimulation Electric Stimulation Interferential Current (IFC) Body Location L ant ankle Duration (Minutes) 15 Patient Position Sitting Combined With Heat/Cold Cold Pack PT-OP-S Aquatic Treatment Start: 09/17/19 18:00 Freq: Status: Active Protocol: Document 01/30/20 12:30 LJ (Rec: 01/30/20 14:54 LJ [id number]) Aquatics Treatment Pool Entry/Exit Pool Entry/Exit Method Lift Assistance Minimal Assistance Water Walking Slow motion Water Level Chest Level Walking Equipment wet vest, UE float, #2.5 ankle wt Level of Assistance Standby Assistance,Contact Guard Assistance,Moderate Assistance Comments emphasis on LLE extension stance phase Lignite March Water Level Chest Level Walking Equipment wet vest, UE float, #2.5 ankle wt Level of Assistance Standby Assistance,Contact Guard Assistance,Moderate Assistance,Verbal Cues Forward with emphasis on reciprocal gait pattern Water Level Chest Level Level of Assistance Standby Assistance,Contact Guard Assistance,Minimal Assistance,Verbal Cues Comments wetvest, sm float on LUE, #3. 75 ankle wt on LLE start stop walking forward and backward Water Level Chest Level Walking Equipment vest Level of Assistance Contact Guard Assistance, Verbal Cues Comments wetvest, sm float on LUE, #3. 75 ankle wt on LLE Sideways Water Level Chest Level Walking Equipment wet vest, UE float, #2.5 ankle wt Level of Assistance Standby Assistance,Contact Guard Assistance,Minimal Assistance,Verbal Cues Lower Extremity Exercises SL aquats Details HH on wall Body Position Standing Water Level Waist Level Equipment wetvest Reps/Duration 2x10 LLE Comments VC to extend knee knee extensions Details seated in lift chair Equipment Ankle Weight- 5.0# Reps/Duration 20 B Comments seated in lift SLS Details bracing LLE Body Position Standing Water Level Chest Level Equipment vest Reps/Duration 1 min marching at wall Water Level Chest Level Reps/Duration 2 min Comments opposite UE/LE tapping wall squats Body Position Standing Water Level Chest Level Reps/Duration 20x Lower Extremity Stretches adductors Comments seated in chair Gastroc Body Position Sitting Reps/Duration 2 x 45 sec B Comments manual assist hip flexors Details at wall Body Position Standing Water Level Waist Level Reps/Duration 2x45 Comments manually assisted HS Details at wall Body Position Sitting Water Level Waist Level Equipment wet vest Reps/Duration 2x45 Comments sitting in lift chair assisted Upper Extremity Exercises breastroke UE's Body Position Standing Water Level Chest Level Reps/Duration 3 min Comments during walking and deep water hor ab/ad Water Level Chest Level Comments during side walking, CGA Balance step ups Details step ups/down using boxes Body Position Standing Water Level Waist Level Equipment 8 boxes Comments mod verbal cues for coordination Magnolia Activities Magnolia Activities Bicycle,Cross Country Equipment wet vest, white noodle Duration 7 min Comments Guy and cues for vertical alignmernt. PT-OP-T Assessment and Plan Start: 09/17/19 18:00 Freq: Status: Active Protocol: Document 08/04/21 16:50 DCW (Rec: 08/04/21 17:50 DCW [id number]) Physical Therapy Assessment Impairments Impairments Activity Tolerance,Balance, Coordination,Functional Activities,Functional Mobility ,Gait,Pain,ROM,Sensation, Strength,Tone,Transfers Goals Six Impairment Decreased Static Balance Short Term Goal (STG) Pt to score <9 seconds on TUG STG Duration Met Office Equipment Technician Goal (LTG) NEW GOAL: Pt to score 53/56 on Adler Balance Scale LTG Duration 10/04/21 - Improving, 51/56 Five Impairment Pt uses R rail and step-over gait pattern ascending stairs Office Equipment Technician Goal (LTG) Pt to ascend/descend stairs independently without use of rail LTG Duration 10/04/21 - Improving Four Impairment Pt demonstrates strength impairment throughout left LE Senior Living Goal (LTG) Pt to display MMT >3+/5 through L LE LTG Duration Met Three Impairment Pt SBA for transfers and bed mobility d/t Left Neglect Senior Living Goal (LTG) Pt to demonstrate independent transfers and bed mobility with an ability to address left LE and UE 80% of the time LTG Duration Met Two Impairment Pt ambulates 280' CGA /s an AD Short Term Goal (STG) Pt to ambulate 400' SBA independently STG Duration Met Senior Living Goal (LTG) Pt to ambulate 800' during 6 MWT Independently without SBA LTG Duration 11/03/21 - Improving (1408' SBA) One Impairment Pt does not have an appropriate home exercise program Short Term Goal (STG) Pt to be independent and compliant with an appropriate HEP STG Duration Met Assessment Summary Assessment Pt overall doing very well with his post-CVA rehab. Adler scoreing, gait, and strength all continue to improve. Discussed with pt and his today need to use wheelchair less. There is still some resistance with this idea due to feeling uncomfortable with his ongoing left visual neglect. Agreeable to work more on visual exercises and visual scanning in therapy in return to reduce reliance on w /c. At this point, pt's ongoing difficulty with back pain, PEREZ, and visual neglect are the biggest limiting factor to further recovery. Physical Therapy Plan Frequency and Duration Frequency of Treatment 1-2x/wk Duration of Treatment 3 months Plan of Care Start Date 08/04/21 Plan of Care End Date 11/03/21 Therapeutic Interventions Therapeutic Interventions Aquatic Therapy,Balance Training,Coordination Training ,Gait Training,Home Exercise Program,Manual Therapy, Neuromuscular Re-education, Patient/Caregiver Education, Self-Care/Home Management, Therapeutic Activities, Therapeutic Exercises Modalities Cold Pack/Ice Massage,Electric Stimulation,Hot Packs, Ultrasound Next Visit Focus/Plan Next Note Type Treatment Note Next Visit Plan SLS, visual scanning, increased activity tolerance
--- NOTE | 2021-08-04 17:50 | PT.OTN ---
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) Physical Therapy Treatment Note PT-OP-A Visit Information Start: 09/17/19 18:00 Freq: Status: Active Protocol: Document 08/04/21 16:50 DCW (Rec: 08/04/21 17:50 DCW [id number]) Out-Patient Physical Therapy Visit Information Visit Information Visit Type Progress Note Visit Start Time 16:50 Visit Stop Time 17:40 Total Visit Minutes 50 Visit Number 131 Number of POLYMERIZATION ENGINEER Visits 0 Evaluation Information Evaluation Date 09/17/19 PT-OP-B Current Condition Start: 09/17/19 18:00 Freq: Status: Active Protocol: Document 09/17/19 12:00 DCW (Rec: 09/18/19 10:29 DCW [id number]) Current Condition History of Current Condition Onset Date 04/14/19 Current Complaints Hemiparesis secondary to CVA History of Current Condition Pt is a 69 year old male presenting to skilled outpatient physical therapy with left-side neglect, hemiparesis, loss of independence, and difficulty walking following an intraparenchymal hemorrhage on 04/14/19. Pt was transferred from [facility] to [facility], where a craniotomy was performed on 04/16/19. Pt completed 7 weeks of rehab/ recovery at [facility], and then underwent a second surgery on 06/26/19 to replace the skull fragment. Pt was then at an acute rehab facility 06/30-07/18/19, and since then has been receiving home health physical therapy. Pt presents today with limited left-sided function, left visual and physical neglect, difficulty with transfers, decreased activity tolerance, decreased gait, and many other secondary effects following his CVA. Pt has been working on ambulation with a vale walker with home health, and his states he has walked around 100' a few times, but always with a therapist, as she does not feel comfortable walking with him yet. Pt exclusively gets around at time of evaluation in a manual wheelchair. Pt's transfers have been going fairly well, with his caregivers performing CGA, however pt will occasionally need assistance with placement of his left UE and LE due to neglect. Pt's biggest complaint at the moment is leg pain, his reports they have tried PT, Massage, CBD il, Tylenol, Oxycodine, and Gabapentin, all with minimal benefit. Prior to CVA, pt was fully independent in all activities. Pt and have garegivers 8 hrs a day for assistance. Prior Treatments and Tests Craniotomy 04/16/19, Acute rehab, Skull fragment replacement 06/26/19, home health PT Prior Functional Status Baseline Function- ADL's Independent Baseline Function- Mobility Independent PT-OP-C Subjective Start: 09/17/19 18:00 Freq: Status: Active Protocol: Document 08/04/21 16:50 DCW (Rec: 08/04/21 17:50 DCW [id number]) OP-PT Subjective Patient Comments Patient Comments Pt concerned about how his recent increased back pain will affect his scores during today's testing PT-OP-D Balance Start: 08/04/20 14:14 Freq: Status: Active Protocol: Document 08/04/21 16:50 DCW (Rec: 08/04/21 17:40 DCW [id number]) Balance Tests Adler Balance Test Adler Balance Test Score 51/56 Adler Impairment Rating 1 to 19% Impaired (Score 45-55 ) Adler Balance Assessment Evaluation Sitting to Standing Ability Independent w/out Hands Unsupported Stance Safely- 2 minutes Sitting Unsupported, Feet on Floor Safely- 2 minutes Standing to Sitting Ability Safely, Minimal Hand Use Transfer Ability Safely, Minimal Hand Use Unsupported Stance- Eyes Closed Safely, 10 seconds Unsupported Stance- Eyes Open Independent, 1 minute Reaching Forward Standing Confidently, 10 inches Pick- Up Object From Floor Independent/Safe Look Behind Shoulder - Standing Shifts Weight Well Turning 360 Degrees Turns , < 4 secs Unsupported Stance, Alternating Feet on (I)- 8 Steps in 20 secs Stair Unsupported Tandem Stance Holds Tandem- 30 seconds Unilateral Leg Stance Lifts Leg/Unable to Hold Total Score Adler Total Score (out of 56 points) 51 Adler Impairment Rating 1 to 19% Impaired (Score 45-55 ) PT-OP-E Functional Tests Start: 05/04/20 15:15 Freq: Status: Active Protocol: Document 08/04/21 16:50 DCW (Rec: 08/04/21 17:40 DCW [id number]) Functional Tests 6 Minute Walk Test Distance 1228' Device Used none Comments 3.41 ft/sec PT-OP-G Mobility & Gait Start: 09/17/19 18:00 Freq: Status: Active Protocol: Document 08/04/21 16:50 DCW (Rec: 08/04/21 17:40 DCW [id number]) OP Gait Assessment Gait Gait Assistance Required: Standby Assistance Distance (Feet) 1,228 Assistive Devices Assistive Device None Gait Deviations General Gait Pattern Antalgic,Ataxic,Flexed Trunk Factors Limiting Gait Function Factors Limiting Gait Function Abnormal Tonal Influences, Decreased Activity Tolerance, Decreased Sensation,Poor Safety Awareness,Respiratory Distress Stair Climbing Evaluation Evaluation Level of Assist On Stairs Standby Assistance Devices Stair Climbing Assistive Devices Right Railing Technique/Endurance Stair Climbing Direction Ascend and Descend Stair Climbing Technique Step Over Step Number of Steps Climbed 4 PT-OP-H Neuro Start: 09/17/19 18:00 Freq: Status: Active Protocol: Document 04/28/21 11:15 DCW (Rec: 04/28/21 11:58 DCW [id number]) Deep Tendon Reflex & Clonus Assessment Deep Tendon Reflex Left Achilles Deep Tendon Reflex 2+ Normal Left Patellar Deep Tendon Reflex 2+ Normal Ankle Clonus Left Clonus Assessment Sustained Muscle Tone Tone Assessment Left Lower Extremity Flexor Tone Description Mild Hypotonicity PT-OP-M Strength Start: 09/17/19 18:00 Freq: Status: Active Protocol: Document 04/28/21 11:15 DCW (Rec: 04/28/21 11:58 DCW [id number]) Hip Strength Hip Manual Muscle Testing Left Flexion (L2) 4+ Good+ Extension (S1) 5 Normal Abduction 4 Good Adduction 5 Normal External Rotation 4 Good Internal Rotation 4 Good Knee Strength Knee Manual Muscle Testing Left Flexion (S2) 4 Good Extension (L3) 5 Normal Ankle/Foot Strength Ankle and Foot Manual Muscle Testing Left Dorsiflexion (L4) 5 Normal Plantarflexion (S1) 4 Good Inversion 4 Good Eversion (S1) 4 Good PT-OP-Q Treatments Start: 09/17/19 18:00 Freq: Status: Active Protocol: Document 08/04/21 16:50 DCW (Rec: 08/04/21 17:50 DCW [id number]) Neuro Re-Education Treatment Other Activities Testing Details 6MWT, Adler PT-OP-R Modalities Start: 09/17/19 18:00 Freq: Status: Active Protocol: Document 07/27/21 13:45 DCW (Rec: 07/27/21 14:29 DCW [id number]) Electric Stimulation Electric Stimulation Interferential Current (IFC) Body Location L ant ankle Duration (Minutes) 15 Patient Position Sitting Combined With Heat/Cold Cold Pack PT-OP-S Aquatic Treatment Start: 09/17/19 18:00 Freq: Status: Active Protocol: Document 01/30/20 12:30 LJ (Rec: 01/30/20 14:54 LJ [id number]) Aquatics Treatment Pool Entry/Exit Pool Entry/Exit Method Lift Assistance Minimal Assistance Water Walking Slow motion Water Level Chest Level Walking Equipment wet vest, UE float, #2.5 ankle wt Level of Assistance Standby Assistance,Contact Guard Assistance,Moderate Assistance Comments emphasis on LLE extension stance phase [place] March Water Level Chest Level Walking Equipment wet vest, UE float, #2.5 ankle wt Level of Assistance Standby Assistance,Contact Guard Assistance,Moderate Assistance,Verbal Cues Forward with emphasis on reciprocal gait pattern Water Level Chest Level Level of Assistance Standby Assistance,Contact Guard Assistance,Minimal Assistance,Verbal Cues Comments wetvest, sm float on LUE, #3. 75 ankle wt on LLE start stop walking forward and backward Water Level Chest Level Walking Equipment vest Level of Assistance Contact Guard Assistance, Verbal Cues Comments wetvest, sm float on LUE, #3. 75 ankle wt on LLE Sideways Water Level Chest Level Walking Equipment wet vest, UE float, #2.5 ankle wt Level of Assistance Standby Assistance,Contact Guard Assistance,Minimal Assistance,Verbal Cues Lower Extremity Exercises SL aquats Details HH on wall Body Position Standing Water Level Waist Level Equipment wetvest Reps/Duration 2x10 LLE Comments VC to extend knee knee extensions Details seated in lift chair Equipment Ankle Weight- 5.0# Reps/Duration 20 B Comments seated in lift SLS Details bracing LLE Body Position Standing Water Level Chest Level Equipment vest Reps/Duration 1 min marching at wall Water Level Chest Level Reps/Duration 2 min Comments opposite UE/LE tapping wall squats Body Position Standing Water Level Chest Level Reps/Duration 20x Lower Extremity Stretches adductors Comments seated in chair Gastroc Body Position Sitting Reps/Duration 2 x 45 sec B Comments manual assist hip flexors Details at wall Body Position Standing Water Level Waist Level Reps/Duration 2x45 Comments manually assisted HS Details at wall Body Position Sitting Water Level Waist Level Equipment wet vest Reps/Duration 2x45 Comments sitting in lift chair assisted Upper Extremity Exercises breastroke UE's Body Position Standing Water Level Chest Level Reps/Duration 3 min Comments during walking and deep water hor ab/ad Water Level Chest Level Comments during side walking, CGA Balance step ups Details step ups/down using boxes Body Position Standing Water Level Waist Level Equipment 8 boxes Comments mod verbal cues for coordination [place] Activities [place] Activities Bicycle,Cross Country Equipment wet vest, white noodle Duration 7 min Comments Guy and cues for vertical alignmernt. PT-OP-T Assessment and Plan Start: 09/17/19 18:00 Freq: Status: Active Protocol: Document 08/04/21 16:50 DCW (Rec: 08/04/21 17:50 DCW [id number]) Physical Therapy Assessment Impairments Impairments Activity Tolerance,Balance, Coordination,Functional Activities,Functional Mobility ,Gait,Pain,ROM,Sensation, Strength,Tone,Transfers Goals Six Impairment Decreased Static Balance Short Term Goal (STG) Pt to score <9 seconds on TUG STG Duration Met Furniture Servicer Goal (LTG) NEW GOAL: Pt to score 53/56 on Adler Balance Scale LTG Duration 10/04/21 - Improving, 51/56 Five Impairment Pt uses R rail and step-over gait pattern ascending stairs Furniture Servicer Goal (LTG) Pt to ascend/descend stairs independently without use of rail LTG Duration 10/04/21 - Improving Four Impairment Pt demonstrates strength impairment throughout left LE Correction Goal (LTG) Pt to display MMT >3+/5 through L LE LTG Duration Met Three Impairment Pt SBA for transfers and bed mobility d/t Left Neglect Correction Goal (LTG) Pt to demonstrate independent transfers and bed mobility with an ability to address left LE and UE 80% of the time LTG Duration Met Two Impairment Pt ambulates 280' CGA /s an AD Short Term Goal (STG) Pt to ambulate 400' SBA independently STG Duration Met Correction Goal (LTG) Pt to ambulate 800' during 6 MWT Independently without SBA LTG Duration 11/03/21 - Improving (1408' SBA) One Impairment Pt does not have an appropriate home exercise program Short Term Goal (STG) Pt to be independent and compliant with an appropriate HEP STG Duration Met Assessment Summary Assessment Pt overall doing very well with his post-CVA rehab. Adler scoreing, gait, and strength all continue to improve. Discussed with pt and his today need to use wheelchair less. There is still some resistance with this idea due to feeling uncomfortable with his ongoing left visual neglect. Agreeable to work more on visual exercises and visual scanning in therapy in return to reduce reliance on w /c. At this point, pt's ongoing difficulty with back pain, PEREZ, and visual neglect are the biggest limiting factor to further recovery. Physical Therapy Plan Frequency and Duration Frequency of Treatment 1-2x/wk Duration of Treatment 3 months Plan of Care Start Date 04/28/21 Plan of Care End Date 07/29/21 Therapeutic Interventions Therapeutic Interventions Aquatic Therapy,Balance Training,Coordination Training ,Gait Training,Home Exercise Program,Manual Therapy, Neuromuscular Re-education, Patient/Caregiver Education, Self-Care/Home Management, Therapeutic Activities, Therapeutic Exercises Modalities Cold Pack/Ice Massage,Electric Stimulation,Hot Packs, Ultrasound Next Visit Focus/Plan Next Note Type Treatment Note Next Visit Plan SLS, visual scanning, increased activity tolerance
--- NOTE | 2021-08-04 17:51 | PT.OPPOC ---
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) Visit Care Team Role Provider Type Yesy Cortes MD Attending Provider Physician Primary Care Provider Specialty: Internal Medicine Address: [address] [place] [address], [facility] Email: [email or web address] [facility] Plan Of Care PT-OP-T Assessment and Plan Start: 09/17/19 18:00 Freq: Status: Active Protocol: Document 08/04/21 16:50 DCW (Rec: 08/04/21 17:50 DCW [id number]) Physical Therapy Assessment Impairments Impairments Activity Tolerance,Balance, Coordination,Functional Activities,Functional Mobility ,Gait,Pain,ROM,Sensation, Strength,Tone,Transfers Goals Six Impairment Decreased Static Balance Short Term Goal (STG) Pt to score <9 seconds on TUG STG Duration Met Gas Collection System Operator Goal (LTG) NEW GOAL: Pt to score 53/56 on Adler Balance Scale LTG Duration 10/04/21 - Improving, 51/56 Five Impairment Pt uses R rail and step-over gait pattern ascending stairs Gas Collection System Operator Goal (LTG) Pt to ascend/descend stairs independently without use of rail LTG Duration 10/04/21 - Improving Four Impairment Pt demonstrates strength impairment throughout left LE Mcfp Goal (LTG) Pt to display MMT >3+/5 through L LE LTG Duration Met Three Impairment Pt SBA for transfers and bed mobility d/t Left Neglect Mcfp Goal (LTG) Pt to demonstrate independent transfers and bed mobility with an ability to address left LE and UE 80% of the time LTG Duration Met Two Impairment Pt ambulates 280' CGA /s an AD Short Term Goal (STG) Pt to ambulate 400' SBA independently STG Duration Met Mcfp Goal (LTG) Pt to ambulate 800' during 6 MWT Independently without SBA LTG Duration 11/03/21 - Improving (1408' SBA) One Impairment Pt does not have an appropriate home exercise program Short Term Goal (STG) Pt to be independent and compliant with an appropriate HEP STG Duration Met Assessment Summary Assessment Pt overall doing very well with his post-CVA rehab. Adler scoreing, gait, and strength all continue to improve. Discussed with pt and his today need to use wheelchair less. There is still some resistance with this idea due to feeling uncomfortable with his ongoing left visual neglect. Agreeable to work more on visual exercises and visual scanning in therapy in return to reduce reliance on w /c. At this point, pt's ongoing difficulty with back pain, PEREZ, and visual neglect are the biggest limiting factor to further recovery. Physical Therapy Plan Frequency and Duration Frequency of Treatment 1-2x/wk Duration of Treatment 3 months Plan of Care Start Date 08/04/21 Plan of Care End Date 11/03/21 Therapeutic Interventions Therapeutic Interventions Aquatic Therapy,Balance Training,Coordination Training ,Gait Training,Home Exercise Program,Manual Therapy, Neuromuscular Re-education, Patient/Caregiver Education, Self-Care/Home Management, Therapeutic Activities, Therapeutic Exercises Modalities Cold Pack/Ice Massage,Electric Stimulation,Hot Packs, Ultrasound Next Visit Focus/Plan Next Note Type Treatment Note Next Visit Plan SLS, visual scanning, increased activity tolerance Plan of Care Dates Plan of Care Start Date 08/04/21 Plan of Care End Date 11/03/21 Electronically Signed by: Osbaldo Barrios, PT 08/10/21 0963 Please Sign and Return: I have reviewed this Plan of Care and certify that the skilled therapy services above are required to meet the patient?s needs. Physician Signature Date Printed Name and Credentials Clinical Instructor Signature Printed Name and Credentials
--- NOTE | 2021-08-04 17:51 | PT.OPPOC ---
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) Visit Care Team Role Provider Type Yesy Cortes MD Attending Provider Physician Primary Care Provider Specialty: Internal Medicine Address: [address] [place] [address], [facility] Email: [email or web address] Plan Of Care PT-OP-T Assessment and Plan Start: 09/17/19 18:00 Freq: Status: Active Protocol: Document 08/04/21 16:50 DCW (Rec: 08/04/21 17:50 DCW [id number]) Physical Therapy Assessment Impairments Impairments Activity Tolerance,Balance, Coordination,Functional Activities,Functional Mobility ,Gait,Pain,ROM,Sensation, Strength,Tone,Transfers Goals Six Impairment Decreased Static Balance Short Term Goal (STG) Pt to score <9 seconds on TUG STG Duration Met Center Punch Operator Goal (LTG) NEW GOAL: Pt to score 53/56 on Adler Balance Scale LTG Duration 10/04/21 - Improving, 51/56 Five Impairment Pt uses R rail and step-over gait pattern ascending stairs Center Punch Operator Goal (LTG) Pt to ascend/descend stairs independently without use of rail LTG Duration 10/04/21 - Improving Four Impairment Pt demonstrates strength impairment throughout left LE Detention Goal (LTG) Pt to display MMT >3+/5 through L LE LTG Duration Met Three Impairment Pt SBA for transfers and bed mobility d/t Left Neglect Detention Goal (LTG) Pt to demonstrate independent transfers and bed mobility with an ability to address left LE and UE 80% of the time LTG Duration Met Two Impairment Pt ambulates 280' CGA /s an AD Short Term Goal (STG) Pt to ambulate 400' SBA independently STG Duration Met Detention Goal (LTG) Pt to ambulate 800' during 6 MWT Independently without SBA LTG Duration 11/03/21 - Improving (1408' SBA) One Impairment Pt does not have an appropriate home exercise program Short Term Goal (STG) Pt to be independent and compliant with an appropriate HEP STG Duration Met Assessment Summary Assessment Pt overall doing very well with his post-CVA rehab. Adler scoreing, gait, and strength all continue to improve. Discussed with pt and his today need to use wheelchair less. There is still some resistance with this idea due to feeling uncomfortable with his ongoing left visual neglect. Agreeable to work more on visual exercises and visual scanning in therapy in return to reduce reliance on w /c. At this point, pt's ongoing difficulty with back pain, PEREZ, and visual neglect are the biggest limiting factor to further recovery. Physical Therapy Plan Frequency and Duration Frequency of Treatment 1-2x/wk Duration of Treatment 3 months Plan of Care Start Date 04/28/21 Plan of Care End Date 07/29/21 Therapeutic Interventions Therapeutic Interventions Aquatic Therapy,Balance Training,Coordination Training ,Gait Training,Home Exercise Program,Manual Therapy, Neuromuscular Re-education, Patient/Caregiver Education, Self-Care/Home Management, Therapeutic Activities, Therapeutic Exercises Modalities Cold Pack/Ice Massage,Electric Stimulation,Hot Packs, Ultrasound Next Visit Focus/Plan Next Note Type Treatment Note Next Visit Plan SLS, visual scanning, increased activity tolerance Plan of Care Dates Plan of Care Start Date 04/28/21 Plan of Care End Date 07/29/21 Electronically Signed by: Osbaldo Barrios, PT 08/04/21 7106 Please Sign and Return: I have reviewed this Plan of Care and certify that the skilled therapy services above are required to meet the patient?s needs. Physician Signature Date Printed Name and Credentials Clinical Instructor Signature Printed Name and Credentials
--- NOTE | 2021-08-10 14:43 | PT.OTN ---
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) Physical Therapy Treatment Note PT-OP-A Visit Information Start: 09/17/19 18:00 Freq: Status: Active Protocol: Document 08/10/21 13:45 DCW (Rec: 08/10/21 14:42 DCW [id number]) Out-Patient Physical Therapy Visit Information Visit Information Visit Type Treatment Note Visit Start Time 13:45 Visit Stop Time 14:30 Total Visit Minutes 45 Visit Number 132 Number of CS ASSOCIATE Visits 0 Evaluation Information Evaluation Date 09/17/19 PT-OP-B Current Condition Start: 09/17/19 18:00 Freq: Status: Active Protocol: Document 09/17/19 12:00 DCW (Rec: 09/18/19 10:29 DCW [id number]) Current Condition History of Current Condition Onset Date 04/14/19 Current Complaints Hemiparesis secondary to CVA History of Current Condition Pt is a 69 year old male presenting to skilled outpatient physical therapy with left-side neglect, hemiparesis, loss of independence, and difficulty walking following an intraparenchymal hemorrhage on 04/14/19. Pt was transferred from [facility] to [facility], where a craniotomy was performed on 04/16/19. Pt completed 7 weeks of rehab/ recovery at [facility], and then underwent a second surgery on 06/26/19 to replace the skull fragment. Pt was then at an acute rehab facility 06/30-07/18/19, and since then has been receiving home health physical therapy. Pt presents today with limited left-sided function, left visual and physical neglect, difficulty with transfers, decreased activity tolerance, decreased gait, and many other secondary effects following his CVA. Pt has been working on ambulation with a vale walker with home health, and his states he has walked around 100' a few times, but always with a therapist, as she does not feel comfortable walking with him yet. Pt exclusively gets around at time of evaluation in a manual wheelchair. Pt's transfers have been going fairly well, with his caregivers performing CGA, however pt will occasionally need assistance with placement of his left UE and LE due to neglect. Pt's biggest complaint at the moment is leg pain, his reports they have tried PT, Massage, CBD il, Tylenol, Oxycodine, and Gabapentin, all with minimal benefit. Prior to CVA, pt was fully independent in all activities. Pt and have garegivers 8 hrs a day for assistance. Prior Treatments and Tests Craniotomy 04/16/19, Acute rehab, Skull fragment replacement 06/26/19, home health PT Prior Functional Status Baseline Function- ADL's Independent Baseline Function- Mobility Independent PT-OP-C Subjective Start: 09/17/19 18:00 Freq: Status: Active Protocol: Document 08/10/21 13:45 DCW (Rec: 08/10/21 14:42 DCW [id number]) OP-PT Subjective Patient Comments Patient Comments Pt's notes he has been put on a beta rubin, as his heart rate has been a little erratic, and this will hopefully help stabilize him. PT-OP-D Balance Start: 08/04/20 14:14 Freq: Status: Active Protocol: Document 08/04/21 16:50 DCW (Rec: 08/04/21 17:40 DCW [id number]) Balance Tests Adler Balance Test Adler Balance Test Score 51/56 Adler Impairment Rating 1 to 19% Impaired (Score 45-55 ) Adler Balance Assessment Evaluation Sitting to Standing Ability Independent w/out Hands Unsupported Stance Safely- 2 minutes Sitting Unsupported, Feet on Floor Safely- 2 minutes Standing to Sitting Ability Safely, Minimal Hand Use Transfer Ability Safely, Minimal Hand Use Unsupported Stance- Eyes Closed Safely, 10 seconds Unsupported Stance- Eyes Open Independent, 1 minute Reaching Forward Standing Confidently, 10 inches Pick- Up Object From Floor Independent/Safe Look Behind Shoulder - Standing Shifts Weight Well Turning 360 Degrees Turns , < 4 secs Unsupported Stance, Alternating Feet on (I)- 8 Steps in 20 secs Stair Unsupported Tandem Stance Holds Tandem- 30 seconds Unilateral Leg Stance Lifts Leg/Unable to Hold Total Score Adler Total Score (out of 56 points) 51 Adler Impairment Rating 1 to 19% Impaired (Score 45-55 ) PT-OP-E Functional Tests Start: 05/04/20 15:15 Freq: Status: Active Protocol: Document 08/04/21 16:50 DCW (Rec: 08/04/21 17:40 DCW [id number]) Functional Tests 6 Minute Walk Test Distance 1228' Device Used none Comments 3.41 ft/sec PT-OP-G Mobility & Gait Start: 09/17/19 18:00 Freq: Status: Active Protocol: Document 08/04/21 16:50 DCW (Rec: 08/04/21 17:40 DCW [id number]) OP Gait Assessment Gait Gait Assistance Required: Standby Assistance Distance (Feet) 1,228 Assistive Devices Assistive Device None Gait Deviations General Gait Pattern Antalgic,Ataxic,Flexed Trunk Factors Limiting Gait Function Factors Limiting Gait Function Abnormal Tonal Influences, Decreased Activity Tolerance, Decreased Sensation,Poor Safety Awareness,Respiratory Distress Stair Climbing Evaluation Evaluation Level of Assist On Stairs Standby Assistance Devices Stair Climbing Assistive Devices Right Railing Technique/Endurance Stair Climbing Direction Ascend and Descend Stair Climbing Technique Step Over Step Number of Steps Climbed 4 PT-OP-H Neuro Start: 09/17/19 18:00 Freq: Status: Active Protocol: Document 04/28/21 11:15 DCW (Rec: 04/28/21 11:58 DCW [id number]) Deep Tendon Reflex & Clonus Assessment Deep Tendon Reflex Left Achilles Deep Tendon Reflex 2+ Normal Left Patellar Deep Tendon Reflex 2+ Normal Ankle Clonus Left Clonus Assessment Sustained Muscle Tone Tone Assessment Left Lower Extremity Flexor Tone Description Mild Hypotonicity PT-OP-M Strength Start: 09/17/19 18:00 Freq: Status: Active Protocol: Document 04/28/21 11:15 DCW (Rec: 04/28/21 11:58 DCW [id number]) Hip Strength Hip Manual Muscle Testing Left Flexion (L2) 4+ Good+ Extension (S1) 5 Normal Abduction 4 Good Adduction 5 Normal External Rotation 4 Good Internal Rotation 4 Good Knee Strength Knee Manual Muscle Testing Left Flexion (S2) 4 Good Extension (L3) 5 Normal Ankle/Foot Strength Ankle and Foot Manual Muscle Testing Left Dorsiflexion (L4) 5 Normal Plantarflexion (S1) 4 Good Inversion 4 Good Eversion (S1) 4 Good PT-OP-Q Treatments Start: 09/17/19 18:00 Freq: Status: Active Protocol: Document 08/10/21 13:45 DCW (Rec: 08/10/21 14:42 DCW [id number]) Gait Training Gait Activity No AD Description No AD Device Used None Level of Assistance SBA Distance/Duration 950' Comments VCs to promote heel-toe gait, extend left knee during stance phase Neuro Re-Education Treatment Other Activities 1 Details Vision exercise Comments Vertical line down middle of horizontal 14 lines: 8 within 1/4 of center, 3 double lines PENA chart Details PENA chart reading Comments Focus on saccadic movements PT-OP-R Modalities Start: 09/17/19 18:00 Freq: Status: Active Protocol: Document 07/27/21 13:45 DCW (Rec: 07/27/21 14:29 DCW [id number]) Electric Stimulation Electric Stimulation Interferential Current (IFC) Body Location L ant ankle Duration (Minutes) 15 Patient Position Sitting Combined With Heat/Cold Cold Pack PT-OP-S Aquatic Treatment Start: 09/17/19 18:00 Freq: Status: Active Protocol: Document 01/30/20 12:30 LJ (Rec: 01/30/20 14:54 LJ [id number]) Aquatics Treatment Pool Entry/Exit Pool Entry/Exit Method Lift Assistance Minimal Assistance Water Walking Slow motion Water Level Chest Level Walking Equipment wet vest, UE float, #2.5 ankle wt Level of Assistance Standby Assistance,Contact Guard Assistance,Moderate Assistance Comments emphasis on LLE extension stance phase January Water Level Chest Level Walking Equipment wet vest, UE float, #2.5 ankle wt Level of Assistance Standby Assistance,Contact Guard Assistance,Moderate Assistance,Verbal Cues Forward with emphasis on reciprocal gait pattern Water Level Chest Level Level of Assistance Standby Assistance,Contact Guard Assistance,Minimal Assistance,Verbal Cues Comments wetvest, sm float on LUE, #3. 75 ankle wt on LLE start stop walking forward and backward Water Level Chest Level Walking Equipment vest Level of Assistance Contact Guard Assistance, Verbal Cues Comments wetvest, sm float on LUE, #3. 75 ankle wt on LLE Sideways Water Level Chest Level Walking Equipment wet vest, UE float, #2.5 ankle wt Level of Assistance Standby Assistance,Contact Guard Assistance,Minimal Assistance,Verbal Cues Lower Extremity Exercises SL aquats Details HH on wall Body Position Standing Water Level Waist Level Equipment wetvest Reps/Duration 2x10 LLE Comments VC to extend knee knee extensions Details seated in lift chair Equipment Ankle Weight- 5.0# Reps/Duration 20 B Comments seated in lift SLS Details bracing LLE Body Position Standing Water Level Chest Level Equipment vest Reps/Duration 1 min marching at wall Water Level Chest Level Reps/Duration 2 min Comments opposite UE/LE tapping wall squats Body Position Standing Water Level Chest Level Reps/Duration 20x Lower Extremity Stretches adductors Comments seated in chair Gastroc Body Position Sitting Reps/Duration 2 x 45 sec B Comments manual assist hip flexors Details at wall Body Position Standing Water Level Waist Level Reps/Duration 2x45 Comments manually assisted HS Details at wall Body Position Sitting Water Level Waist Level Equipment wet vest Reps/Duration 2x45 Comments sitting in lift chair assisted Upper Extremity Exercises breastroke UE's Body Position Standing Water Level Chest Level Reps/Duration 3 min Comments during walking and deep water hor ab/ad Water Level Chest Level Comments during side walking, CGA Balance step ups Details step ups/down using boxes Body Position Standing Water Level Waist Level Equipment 8 boxes Comments mod verbal cues for coordination [place] Activities [place] Activities Bicycle,Cross Country Equipment wet vest, white noodle Duration 7 min Comments Guy and cues for vertical alignmernt. PT-OP-T Assessment and Plan Start: 09/17/19 18:00 Freq: Status: Active Protocol: Document 08/10/21 13:45 DCW (Rec: 08/10/21 14:42 DCW [id number]) Physical Therapy Assessment Impairments Impairments Activity Tolerance,Balance, Coordination,Functional Activities,Functional Mobility ,Gait,Pain,ROM,Sensation, Strength,Tone,Transfers Goals Six Impairment Decreased Static Balance Short Term Goal (STG) Pt to score <9 seconds on TUG STG Duration Met Custodial Goal (LTG) NEW GOAL: Pt to score 53/56 on Adler Balance Scale LTG Duration 10/04/21 - Improving, 51/56 Five Impairment Pt uses R rail and step-over gait pattern ascending stairs Custodial Goal (LTG) Pt to ascend/descend stairs independently without use of rail LTG Duration 10/04/21 - Improving Four Impairment Pt demonstrates strength impairment throughout left LE Custodial Goal (LTG) Pt to display MMT >3+/5 through L LE LTG Duration Met Three Impairment Pt SBA for transfers and bed mobility d/t Left Neglect Custodial Goal (LTG) Pt to demonstrate independent transfers and bed mobility with an ability to address left LE and UE 80% of the time LTG Duration Met Two Impairment Pt ambulates 280' CGA /s an AD Short Term Goal (STG) Pt to ambulate 400' SBA independently STG Duration Met Private Equity Analyst Goal (LTG) Pt to ambulate 800' during 6 MWT Independently without SBA LTG Duration 11/03/21 - Improving (1408' SBA) One Impairment Pt does not have an appropriate home exercise program Short Term Goal (STG) Pt to be independent and compliant with an appropriate HEP STG Duration Met Assessment Summary Assessment Focus shifted today more to visual exercises, pt required near constant verbal and tactile cues with PENA chart reading, ended up relying on color-coded highlighter cues for saccadic reading. Physical Therapy Plan Frequency and Duration Frequency of Treatment 1-2x/wk Duration of Treatment 3 months Plan of Care Start Date 08/04/21 Plan of Care End Date 11/03/21 Therapeutic Interventions Therapeutic Interventions Aquatic Therapy,Balance Training,Coordination Training ,Gait Training,Home Exercise Program,Manual Therapy, Neuromuscular Re-education, Patient/Caregiver Education, Self-Care/Home Management, Therapeutic Activities, Therapeutic Exercises Modalities Cold Pack/Ice Massage,Electric Stimulation,Hot Packs, Ultrasound Next Visit Focus/Plan Next Note Type Treatment Note Next Visit Plan SLS, visual scanning, increased activity tolerance
--- NOTE | 2021-08-15 14:31 | PT.OTN ---
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) Physical Therapy Treatment Note PT-OP-A Visit Information Start: 09/17/19 18:00 Freq: Status: Active Protocol: Document 08/15/21 13:45 DCW (Rec: 08/15/21 14:31 DCW [id number]) Out-Patient Physical Therapy Visit Information Visit Information Visit Type Treatment Note Visit Start Time 13:45 Visit Stop Time 14:30 Total Visit Minutes 45 Visit Number 133 Number of TEST DRILLER Visits 0 Evaluation Information Evaluation Date 09/17/19 PT-OP-B Current Condition Start: 09/17/19 18:00 Freq: Status: Active Protocol: Document 09/17/19 12:00 DCW (Rec: 09/18/19 10:29 DCW [id number]) Current Condition History of Current Condition Onset Date 04/14/19 Current Complaints Hemiparesis secondary to CVA History of Current Condition Pt is a 69 year old male presenting to skilled outpatient physical therapy with left-side neglect, hemiparesis, loss of independence, and difficulty walking following an intraparenchymal hemorrhage on 04/14/19. Pt was transferred from [facility] to [facility], [place], where a craniotomy was performed on 04/16/19. Pt completed 7 weeks of rehab/ recovery at [facility], and then underwent a second surgery on 06/26/19 to replace the skull fragment. Pt was then at an acute rehab facility 06/30-07/18/19, and since then has been receiving home health physical therapy. Pt presents today with limited left-sided function, left visual and physical neglect, difficulty with transfers, decreased activity tolerance, decreased gait, and many other secondary effects following his CVA. Pt has been working on ambulation with a vael walker with home health, and his states he has walked around 100' a few times, but always with a therapist, as she does not feel comfortable walking with him yet. Pt exclusively gets around at time of evaluation in a manual wheelchair. Pt's transfers have been going fairly well, with his caregivers performing CGA, however pt will occasionally need assistance with placement of his left UE and LE due to neglect. Pt's biggest complaint at the moment is leg pain, his reports they have tried PT, Massage, CBD il, Tylenol, Oxycodine, and Gabapentin, all with minimal benefit. Prior to CVA, pt was fully independent in all activities. Pt and have garegivers 8 hrs a day for assistance. Prior Treatments and Tests Craniotomy 04/16/19, Acute rehab, Skull fragment replacement 06/26/19, home health PT Prior Functional Status Baseline Function- ADL's Independent Baseline Function- Mobility Independent PT-OP-C Subjective Start: 09/17/19 18:00 Freq: Status: Active Protocol: Document 08/15/21 13:45 DCW (Rec: 08/15/21 14:31 DCW [id number]) OP-PT Subjective Patient Comments Patient Comments Pt reports yesterday was terrible as far as his pain goes. notes that he was walking in to the clinic today , not paying attention to his left side, and walked out in front of a car, which had to stop to allow him to cross. PT-OP-D Balance Start: 08/04/20 14:14 Freq: Status: Active Protocol: Document 08/04/21 16:50 DCW (Rec: 08/04/21 17:40 DCW [id number]) Balance Tests Adler Balance Test Adler Balance Test Score 51/56 Adler Impairment Rating 1 to 19% Impaired (Score 45-55 ) Adler Balance Assessment Evaluation Sitting to Standing Ability Independent w/out Hands Unsupported Stance Safely- 2 minutes Sitting Unsupported, Feet on Floor Safely- 2 minutes Standing to Sitting Ability Safely, Minimal Hand Use Transfer Ability Safely, Minimal Hand Use Unsupported Stance- Eyes Closed Safely, 10 seconds Unsupported Stance- Eyes Open Independent, 1 minute Reaching Forward Standing Confidently, 10 inches Pick- Up Object From Floor Independent/Safe Look Behind Shoulder - Standing Shifts Weight Well Turning 360 Degrees Turns , < 4 secs Unsupported Stance, Alternating Feet on (I)- 8 Steps in 20 secs Stair Unsupported Tandem Stance Holds Tandem- 30 seconds Unilateral Leg Stance Lifts Leg/Unable to Hold Total Score Adler Total Score (out of 56 points) 51 Adler Impairment Rating 1 to 19% Impaired (Score 45-55 ) PT-OP-E Functional Tests Start: 05/04/20 15:15 Freq: Status: Active Protocol: Document 08/04/21 16:50 DCW (Rec: 08/04/21 17:40 DCW [id number]) Functional Tests 6 Minute Walk Test Distance 1228' Device Used none Comments 3.41 ft/sec PT-OP-G Mobility & Gait Start: 09/17/19 18:00 Freq: Status: Active Protocol: Document 08/04/21 16:50 DCW (Rec: 08/04/21 17:40 DCW [id number]) OP Gait Assessment Gait Gait Assistance Required: Standby Assistance Distance (Feet) 1,228 Assistive Devices Assistive Device None Gait Deviations General Gait Pattern Antalgic,Ataxic,Flexed Trunk Factors Limiting Gait Function Factors Limiting Gait Function Abnormal Tonal Influences, Decreased Activity Tolerance, Decreased Sensation,Poor Safety Awareness,Respiratory Distress Stair Climbing Evaluation Evaluation Level of Assist On Stairs Standby Assistance Devices Stair Climbing Assistive Devices Right Railing Technique/Endurance Stair Climbing Direction Ascend and Descend Stair Climbing Technique Step Over Step Number of Steps Climbed 4 PT-OP-H Neuro Start: 09/17/19 18:00 Freq: Status: Active Protocol: Document 04/28/21 11:15 DCW (Rec: 04/28/21 11:58 DCW [id number]) Deep Tendon Reflex & Clonus Assessment Deep Tendon Reflex Left Achilles Deep Tendon Reflex 2+ Normal Left Patellar Deep Tendon Reflex 2+ Normal Ankle Clonus Left Clonus Assessment Sustained Muscle Tone Tone Assessment Left Lower Extremity Flexor Tone Description Mild Hypotonicity PT-OP-M Strength Start: 09/17/19 18:00 Freq: Status: Active Protocol: Document 04/28/21 11:15 DCW (Rec: 04/28/21 11:58 DCW [id number]) Hip Strength Hip Manual Muscle Testing Left Flexion (L2) 4+ Good+ Extension (S1) 5 Normal Abduction 4 Good Adduction 5 Normal External Rotation 4 Good Internal Rotation 4 Good Knee Strength Knee Manual Muscle Testing Left Flexion (S2) 4 Good Extension (L3) 5 Normal Ankle/Foot Strength Ankle and Foot Manual Muscle Testing Left Dorsiflexion (L4) 5 Normal Plantarflexion (S1) 4 Good Inversion 4 Good Eversion (S1) 4 Good PT-OP-Q Treatments Start: 09/17/19 18:00 Freq: Status: Active Protocol: Document 08/15/21 13:45 DCW (Rec: 08/15/21 14:31 DCW [id number]) Gait Training Gait Activity No AD Description No AD Device Used None Level of Assistance SBA Distance/Duration 950' Comments VCs to promote heel-toe gait, extend left knee during stance phase Neuro Re-Education Treatment Other Activities Chain reading Details Chain reading Comments Reading easy->medium Skip doubles, then only doubles PENA chart Details PENA chart reading Comments Focus on saccadic movements PT-OP-R Modalities Start: 09/17/19 18:00 Freq: Status: Active Protocol: Document 07/27/21 13:45 DCW (Rec: 07/27/21 14:29 DCW [id number]) Electric Stimulation Electric Stimulation Interferential Current (IFC) Body Location L ant ankle Duration (Minutes) 15 Patient Position Sitting Combined With Heat/Cold Cold Pack PT-OP-S Aquatic Treatment Start: 09/17/19 18:00 Freq: Status: Active Protocol: Document 01/30/20 12:30 LJ (Rec: 01/30/20 14:54 LJ [id number]) Aquatics Treatment Pool Entry/Exit Pool Entry/Exit Method Lift Assistance Minimal Assistance Water Walking Slow motion Water Level Chest Level Walking Equipment wet vest, UE float, #2.5 ankle wt Level of Assistance Standby Assistance,Contact Guard Assistance,Moderate Assistance Comments emphasis on LLE extension stance phase January Water Level Chest Level Walking Equipment wet vest, UE float, #2.5 ankle wt Level of Assistance Standby Assistance,Contact Guard Assistance,Moderate Assistance,Verbal Cues Forward with emphasis on reciprocal gait pattern Water Level Chest Level Level of Assistance Standby Assistance,Contact Guard Assistance,Minimal Assistance,Verbal Cues Comments wetvest, sm float on LUE, #3. 75 ankle wt on LLE start stop walking forward and backward Water Level Chest Level Walking Equipment vest Level of Assistance Contact Guard Assistance, Verbal Cues Comments wetvest, sm float on LUE, #3. 75 ankle wt on LLE Sideways Water Level Chest Level Walking Equipment wet vest, UE float, #2.5 ankle wt Level of Assistance Standby Assistance,Contact Guard Assistance,Minimal Assistance,Verbal Cues Lower Extremity Exercises SL aquats Details HH on wall Body Position Standing Water Level Waist Level Equipment wetvest Reps/Duration 2x10 LLE Comments VC to extend knee knee extensions Details seated in lift chair Equipment Ankle Weight- 5.0# Reps/Duration 20 B Comments seated in lift SLS Details bracing LLE Body Position Standing Water Level Chest Level Equipment vest Reps/Duration 1 min marching at wall Water Level Chest Level Reps/Duration 2 min Comments opposite UE/LE tapping wall squats Body Position Standing Water Level Chest Level Reps/Duration 20x Lower Extremity Stretches adductors Comments seated in chair Gastroc Body Position Sitting Reps/Duration 2 x 45 sec B Comments manual assist hip flexors Details at wall Body Position Standing Water Level Waist Level Reps/Duration 2x45 Comments manually assisted HS Details at wall Body Position Sitting Water Level Waist Level Equipment wet vest Reps/Duration 2x45 Comments sitting in lift chair assisted Upper Extremity Exercises breastroke UE's Body Position Standing Water Level Chest Level Reps/Duration 3 min Comments during walking and deep water hor ab/ad Water Level Chest Level Comments during side walking, CGA Balance step ups Details step ups/down using boxes Body Position Standing Water Level Waist Level Equipment 8 boxes Comments mod verbal cues for coordination [place] Activities [place] Activities Bicycle,Cross Country Equipment wet vest, white noodle Duration 7 min Comments Guy and cues for vertical alignmernt. PT-OP-T Assessment and Plan Start: 09/17/19 18:00 Freq: Status: Active Protocol: Document 08/15/21 13:45 DCW (Rec: 08/15/21 14:31 DCW [id number]) Physical Therapy Assessment Impairments Impairments Activity Tolerance,Balance, Coordination,Functional Activities,Functional Mobility ,Gait,Pain,ROM,Sensation, Strength,Tone,Transfers Goals Six Impairment Decreased Static Balance Short Term Goal (STG) Pt to score <9 seconds on TUG STG Duration Met Route Carrier Goal (LTG) NEW GOAL: Pt to score 53/56 on Adler Balance Scale LTG Duration 10/04/21 - Improving, 51/56 Five Impairment Pt uses R rail and step-over gait pattern ascending stairs Route Carrier Goal (LTG) Pt to ascend/descend stairs independently without use of rail LTG Duration 10/04/21 - Improving Four Impairment Pt demonstrates strength impairment throughout left LE Route Carrier Goal (LTG) Pt to display MMT >3+/5 through L LE LTG Duration Met Three Impairment Pt SBA for transfers and bed mobility d/t Left Neglect Route Carrier Goal (LTG) Pt to demonstrate independent transfers and bed mobility with an ability to address left LE and UE 80% of the time LTG Duration Met Two Impairment Pt ambulates 280' CGA /s an AD Short Term Goal (STG) Pt to ambulate 400' SBA independently STG Duration Met Route Carrier Goal (LTG) Pt to ambulate 800' during 6 MWT Independently without SBA LTG Duration 11/03/21 - Improving (1408' SBA) One Impairment Pt does not have an appropriate home exercise program Short Term Goal (STG) Pt to be independent and compliant with an appropriate HEP STG Duration Met Assessment Summary Assessment Pt continues to require constant verbal and tactile cues with visual exercises. Physical Therapy Plan Frequency and Duration Frequency of Treatment 1-2x/wk Duration of Treatment 3 months Plan of Care Start Date 08/04/21 Plan of Care End Date 11/03/21 Therapeutic Interventions Therapeutic Interventions Aquatic Therapy,Balance Training,Coordination Training ,Gait Training,Home Exercise Program,Manual Therapy, Neuromuscular Re-education, Patient/Caregiver Education, Self-Care/Home Management, Therapeutic Activities, Therapeutic Exercises Modalities Cold Pack/Ice Massage,Electric Stimulation,Hot Packs, Ultrasound Next Visit Focus/Plan Next Note Type Treatment Note Next Visit Plan SLS, visual scanning, increased activity tolerance
--- NOTE | 2021-08-22 12:52 | PT.OTN ---
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) Physical Therapy Treatment Note PT-OP-A Visit Information Start: 09/17/19 18:00 Freq: Status: Active Protocol: Document 08/22/21 12:02 DCW (Rec: 08/22/21 12:52 DCW [id number]) Out-Patient Physical Therapy Visit Information Visit Information Visit Type Treatment Note Visit Start Time 12:02 Visit Stop Time 12:45 Total Visit Minutes 43 Visit Number 134 Number of RN URGENT CARE Visits 0 Evaluation Information Evaluation Date 09/17/19 PT-OP-B Current Condition Start: 09/17/19 18:00 Freq: Status: Active Protocol: Document 09/17/19 12:00 DCW (Rec: 09/18/19 10:29 DCW [id number]) Current Condition History of Current Condition Onset Date 04/14/19 Current Complaints Hemiparesis secondary to CVA History of Current Condition Pt is a 69 year old male presenting to skilled outpatient physical therapy with left-side neglect, hemiparesis, loss of independence, and difficulty walking following an intraparenchymal hemorrhage on 04/14/19. Pt was transferred from [facility] to [facility], where a craniotomy was performed on 04/16/19. Pt completed 7 weeks of rehab/ recovery at [facility], and then underwent a second surgery on 06/26/19 to replace the skull fragment. Pt was then at an acute rehab facility 06/30-07/18/19, and since then has been receiving home health physical therapy. Pt presents today with limited left-sided function, left visual and physical neglect, difficulty with transfers, decreased activity tolerance, decreased gait, and many other secondary effects following his CVA. Pt has been working on ambulation with a vale walker with home health, and his states he has walked around 100' a few times, but always with a therapist, as she does not feel comfortable walking with him yet. Pt exclusively gets around at time of evaluation in a manual wheelchair. Pt's transfers have been going fairly well, with his caregivers performing CGA, however pt will occasionally need assistance with placement of his left UE and LE due to neglect. Pt's biggest complaint at the moment is leg pain, his reports they have tried PT, Massage, CBD il, Tylenol, Oxycodine, and Gabapentin, all with minimal benefit. Prior to CVA, pt was fully independent in all activities. Pt and have garegivers 8 hrs a day for assistance. Prior Treatments and Tests Craniotomy 04/16/19, Acute rehab, Skull fragment replacement 06/26/19, home health PT Prior Functional Status Baseline Function- ADL's Independent Baseline Function- Mobility Independent PT-OP-C Subjective Start: 09/17/19 18:00 Freq: Status: Active Protocol: Document 08/22/21 12:02 DCW (Rec: 08/22/21 12:52 DCW [id number]) OP-PT Subjective Patient Comments Patient Comments Pt reports he had some new meds for pain, but it might as well be candy for all the good it does. PT-OP-D Balance Start: 08/04/20 14:14 Freq: Status: Active Protocol: Document 08/04/21 16:50 DCW (Rec: 08/04/21 17:40 DCW [id number]) Balance Tests Adler Balance Test Adler Balance Test Score 51/56 Adler Impairment Rating 1 to 19% Impaired (Score 45-55 ) Adler Balance Assessment Evaluation Sitting to Standing Ability Independent w/out Hands Unsupported Stance Safely- 2 minutes Sitting Unsupported, Feet on Floor Safely- 2 minutes Standing to Sitting Ability Safely, Minimal Hand Use Transfer Ability Safely, Minimal Hand Use Unsupported Stance- Eyes Closed Safely, 10 seconds Unsupported Stance- Eyes Open Independent, 1 minute Reaching Forward Standing Confidently, 10 inches Pick- Up Object From Floor Independent/Safe Look Behind Shoulder - Standing Shifts Weight Well Turning 360 Degrees Turns , < 4 secs Unsupported Stance, Alternating Feet on (I)- 8 Steps in 20 secs Stair Unsupported Tandem Stance Holds Tandem- 30 seconds Unilateral Leg Stance Lifts Leg/Unable to Hold Total Score Adler Total Score (out of 56 points) 51 Adler Impairment Rating 1 to 19% Impaired (Score 45-55 ) PT-OP-E Functional Tests Start: 05/04/20 15:15 Freq: Status: Active Protocol: Document 08/04/21 16:50 DCW (Rec: 08/04/21 17:40 DCW [id number]) Functional Tests 6 Minute Walk Test Distance 1228' Device Used none Comments 3.41 ft/sec PT-OP-G Mobility & Gait Start: 09/17/19 18:00 Freq: Status: Active Protocol: Document 08/04/21 16:50 DCW (Rec: 08/04/21 17:40 DCW [id number]) OP Gait Assessment Gait Gait Assistance Required: Standby Assistance Distance (Feet) 1,228 Assistive Devices Assistive Device None Gait Deviations General Gait Pattern Antalgic,Ataxic,Flexed Trunk Factors Limiting Gait Function Factors Limiting Gait Function Abnormal Tonal Influences, Decreased Activity Tolerance, Decreased Sensation,Poor Safety Awareness,Respiratory Distress Stair Climbing Evaluation Evaluation Level of Assist On Stairs Standby Assistance Devices Stair Climbing Assistive Devices Right Railing Technique/Endurance Stair Climbing Direction Ascend and Descend Stair Climbing Technique Step Over Step Number of Steps Climbed 4 PT-OP-H Neuro Start: 09/17/19 18:00 Freq: Status: Active Protocol: Document 04/28/21 11:15 DCW (Rec: 04/28/21 11:58 DCW [id number]) Deep Tendon Reflex & Clonus Assessment Deep Tendon Reflex Left Achilles Deep Tendon Reflex 2+ Normal Left Patellar Deep Tendon Reflex 2+ Normal Ankle Clonus Left Clonus Assessment Sustained Muscle Tone Tone Assessment Left Lower Extremity Flexor Tone Description Mild Hypotonicity PT-OP-M Strength Start: 09/17/19 18:00 Freq: Status: Active Protocol: Document 04/28/21 11:15 DCW (Rec: 04/28/21 11:58 DCW [id number]) Hip Strength Hip Manual Muscle Testing Left Flexion (L2) 4+ Good+ Extension (S1) 5 Normal Abduction 4 Good Adduction 5 Normal External Rotation 4 Good Internal Rotation 4 Good Knee Strength Knee Manual Muscle Testing Left Flexion (S2) 4 Good Extension (L3) 5 Normal Ankle/Foot Strength Ankle and Foot Manual Muscle Testing Left Dorsiflexion (L4) 5 Normal Plantarflexion (S1) 4 Good Inversion 4 Good Eversion (S1) 4 Good PT-OP-Q Treatments Start: 09/17/19 18:00 Freq: Status: Active Protocol: Document 08/22/21 12:02 DCW (Rec: 08/22/21 12:52 DCW [id number]) Gait Training Gait Activity No AD Description No AD Device Used None Level of Assistance SBA Distance/Duration 950' Comments VCs to promote heel-toe gait, extend left knee during stance phase Neuro Re-Education Treatment Other Activities Chain reading Details Chain reading Comments Reading medium Skip doubles, then only doubles 1 Details Vision exercise Comments Vertical line down middle of horizontal 20 lines: 12 within 1/4 of center, 1 double line PT-OP-R Modalities Start: 09/17/19 18:00 Freq: Status: Active Protocol: Document 07/27/21 13:45 DCW (Rec: 07/27/21 14:29 DCW [id number]) Electric Stimulation Electric Stimulation Interferential Current (IFC) Body Location L ant ankle Duration (Minutes) 15 Patient Position Sitting Combined With Heat/Cold Cold Pack PT-OP-S Aquatic Treatment Start: 09/17/19 18:00 Freq: Status: Active Protocol: Document 01/30/20 12:30 LJ (Rec: 01/30/20 14:54 LJ [id number]) Aquatics Treatment Pool Entry/Exit Pool Entry/Exit Method Lift Assistance Minimal Assistance Water Walking Slow motion Water Level Chest Level Walking Equipment wet vest, UE float, #2.5 ankle wt Level of Assistance Standby Assistance,Contact Guard Assistance,Moderate Assistance Comments emphasis on LLE extension stance phase January Water Level Chest Level Walking Equipment wet vest, UE float, #2.5 ankle wt Level of Assistance Standby Assistance,Contact Guard Assistance,Moderate Assistance,Verbal Cues Forward with emphasis on reciprocal gait pattern Water Level Chest Level Level of Assistance Standby Assistance,Contact Guard Assistance,Minimal Assistance,Verbal Cues Comments wetvest, sm float on LUE, #3. 75 ankle wt on LLE start stop walking forward and backward Water Level Chest Level Walking Equipment vest Level of Assistance Contact Guard Assistance, Verbal Cues Comments wetvest, sm float on LUE, #3. 75 ankle wt on LLE Sideways Water Level Chest Level Walking Equipment wet vest, UE float, #2.5 ankle wt Level of Assistance Standby Assistance,Contact Guard Assistance,Minimal Assistance,Verbal Cues Lower Extremity Exercises SL aquats Details HH on wall Body Position Standing Water Level Waist Level Equipment wetvest Reps/Duration 2x10 LLE Comments VC to extend knee knee extensions Details seated in lift chair Equipment Ankle Weight- 5.0# Reps/Duration 20 B Comments seated in lift SLS Details bracing LLE Body Position Standing Water Level Chest Level Equipment vest Reps/Duration 1 min marching at wall Water Level Chest Level Reps/Duration 2 min Comments opposite UE/LE tapping wall squats Body Position Standing Water Level Chest Level Reps/Duration 20x Lower Extremity Stretches adductors Comments seated in chair Gastroc Body Position Sitting Reps/Duration 2 x 45 sec B Comments manual assist hip flexors Details at wall Body Position Standing Water Level Waist Level Reps/Duration 2x45 Comments manually assisted HS Details at wall Body Position Sitting Water Level Waist Level Equipment wet vest Reps/Duration 2x45 Comments sitting in lift chair assisted Upper Extremity Exercises breastroke UE's Body Position Standing Water Level Chest Level Reps/Duration 3 min Comments during walking and deep water hor ab/ad Water Level Chest Level Comments during side walking, CGA Balance step ups Details step ups/down using boxes Body Position Standing Water Level Waist Level Equipment 8 boxes Comments mod verbal cues for coordination Laquey Activities Laquey Activities Bicycle,Cross Country Equipment wet vest, white noodle Duration 7 min Comments Guy and cues for vertical alignmernt. PT-OP-T Assessment and Plan Start: 09/17/19 18:00 Freq: Status: Active Protocol: Document 08/22/21 12:02 DCW (Rec: 08/22/21 12:52 DCW [id number]) Physical Therapy Assessment Impairments Impairments Activity Tolerance,Balance, Coordination,Functional Activities,Functional Mobility ,Gait,Pain,ROM,Sensation, Strength,Tone,Transfers Goals Six Impairment Decreased Static Balance Short Term Goal (STG) Pt to score <9 seconds on TUG STG Duration Met Retirement Goal (LTG) NEW GOAL: Pt to score 53/56 on Adler Balance Scale LTG Duration 10/04/21 - Improving, 51/56 Five Impairment Pt uses R rail and step-over gait pattern ascending stairs Retirement Goal (LTG) Pt to ascend/descend stairs independently without use of rail LTG Duration 10/04/21 - Improving Four Impairment Pt demonstrates strength impairment throughout left LE [employer]ician Goal (LTG) Pt to display MMT >3+/5 through L LE LTG Duration Met Three Impairment Pt SBA for transfers and bed mobility d/t Left Neglect [employer] Service [employer]ician Goal (LTG) Pt to demonstrate independent transfers and bed mobility with an ability to address left LE and UE 80% of the time LTG Duration Met Two Impairment Pt ambulates 280' CGA /s an AD Short Term Goal (STG) Pt to ambulate 400' SBA independently STG Duration Met [employer] T[employer] Service Technician Goal (LTG) Pt to ambulate 800' during 6 MWT Independently without SBA LTG Duration 11/03/21 - Improving (1408' SBA) One Impairment Pt does not have an appropriate home exercise program Short Term Goal (STG) Pt to be independent and compliant with an appropriate HEP STG Duration Met Assessment Summary Assessment Pt demonstrates continued difficulty with shifting vision to left, required constant prompting to check left of page during chain reading Physical Therapy Plan Frequency and Duration Frequency of Treatment 1-2x/wk Duration of Treatment 3 months Plan of Care Start Date 08/04/21 Plan of Care End Date 11/03/21 Therapeutic Interventions Therapeutic Interventions Aquatic Therapy,Balance Training,Coordination Training ,Gait Training,Home Exercise Program,Manual Therapy, Neuromuscular Re-education, Patient/Caregiver Education, Self-Care/Home Management, Therapeutic Activities, Therapeutic Exercises Modalities Cold Pack/Ice Massage,Electric Stimulation,Hot Packs, Ultrasound Next Visit Focus/Plan Next Note Type Treatment Note Next Visit Plan SLS, visual scanning, increased activity tolerance
--- NOTE | 2021-08-31 13:04 | PT.OTN ---
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) Physical Therapy Treatment Note PT-OP-A Visit Information Start: 09/17/19 18:00 Freq: Status: Active Protocol: Document 08/31/21 12:00 DCW (Rec: 08/31/21 13:04 DCW [id number]) Out-Patient Physical Therapy Visit Information Visit Information Visit Type Treatment Note Visit Start Time 12:00 Visit Stop Time 12:45 Total Visit Minutes 45 Visit Number 135 Number of PATIENT INTAKE REPRESENTATIVE Visits 0 Evaluation Information Evaluation Date 09/17/19 PT-OP-B Current Condition Start: 09/17/19 18:00 Freq: Status: Active Protocol: Document 09/17/19 12:00 DCW (Rec: 09/18/19 10:29 DCW [id number]) Current Condition History of Current Condition Onset Date 04/14/19 Current Complaints Hemiparesis secondary to CVA History of Current Condition Pt is a 69 year old male presenting to skilled outpatient physical therapy with left-side neglect, hemiparesis, loss of independence, and difficulty walking following an intraparenchymal hemorrhage on 04/14/19. Pt was transferred from [facility] to [facility], where a craniotomy was performed on 04/16/19. Pt completed 7 weeks of rehab/ recovery at [facility], and then underwent a second surgery on 06/26/19 to replace the skull fragment. Pt was then at an acute rehab facility 06/30-07/18/19, and since then has been receiving home health physical therapy. Pt presents today with limited left-sided function, left visual and physical neglect, difficulty with transfers, decreased activity tolerance, decreased gait, and many other secondary effects following his CVA. Pt has been working on ambulation with a vale walker with home health, and his states he has walked around 100' a few times, but always with a therapist, as she does not feel comfortable walking with him yet. Pt exclusively gets around at time of evaluation in a manual wheelchair. Pt's transfers have been going fairly well, with his caregivers performing CGA, however pt will occasionally need assistance with placement of his left UE and LE due to neglect. Pt's biggest complaint at the moment is leg pain, his reports they have tried PT, Massage, CBD il, Tylenol, Oxycodine, and Gabapentin, all with minimal benefit. Prior to CVA, pt was fully independent in all activities. Pt and have garegivers 8 hrs a day for assistance. Prior Treatments and Tests Craniotomy 04/16/19, Acute rehab, Skull fragment replacement 06/26/19, home health PT Prior Functional Status Baseline Function- ADL's Independent Baseline Function- Mobility Independent PT-OP-C Subjective Start: 09/17/19 18:00 Freq: Status: Active Protocol: Document 08/31/21 12:00 DCW (Rec: 08/31/21 13:04 DCW [id number]) OP-PT Subjective Patient Comments Patient Comments Pt notes his back is doing pretty well PT-OP-D Balance Start: 08/04/20 14:14 Freq: Status: Active Protocol: Document 08/04/21 16:50 DCW (Rec: 08/04/21 17:40 DCW [id number]) Balance Tests Adler Balance Test Adler Balance Test Score 51/56 Adler Impairment Rating 1 to 19% Impaired (Score 45-55 ) Adler Balance Assessment Evaluation Sitting to Standing Ability Independent w/out Hands Unsupported Stance Safely- 2 minutes Sitting Unsupported, Feet on Floor Safely- 2 minutes Standing to Sitting Ability Safely, Minimal Hand Use Transfer Ability Safely, Minimal Hand Use Unsupported Stance- Eyes Closed Safely, 10 seconds Unsupported Stance- Eyes Open Independent, 1 minute Reaching Forward Standing Confidently, 10 inches Pick- Up Object From Floor Independent/Safe Look Behind Shoulder - Standing Shifts Weight Well Turning 360 Degrees Turns , < 4 secs Unsupported Stance, Alternating Feet on (I)- 8 Steps in 20 secs Stair Unsupported Tandem Stance Holds Tandem- 30 seconds Unilateral Leg Stance Lifts Leg/Unable to Hold Total Score Adler Total Score (out of 56 points) 51 Adler Impairment Rating 1 to 19% Impaired (Score 45-55 ) PT-OP-E Functional Tests Start: 05/04/20 15:15 Freq: Status: Active Protocol: Document 08/04/21 16:50 DCW (Rec: 08/04/21 17:40 DCW [id number]) Functional Tests 6 Minute Walk Test Distance 1228' Device Used none Comments 3.41 ft/sec PT-OP-G Mobility & Gait Start: 09/17/19 18:00 Freq: Status: Active Protocol: Document 08/04/21 16:50 DCW (Rec: 08/04/21 17:40 DCW [id number]) OP Gait Assessment Gait Gait Assistance Required: Standby Assistance Distance (Feet) 1,228 Assistive Devices Assistive Device None Gait Deviations General Gait Pattern Antalgic,Ataxic,Flexed Trunk Factors Limiting Gait Function Factors Limiting Gait Function Abnormal Tonal Influences, Decreased Activity Tolerance, Decreased Sensation,Poor Safety Awareness,Respiratory Distress Stair Climbing Evaluation Evaluation Level of Assist On Stairs Standby Assistance Devices Stair Climbing Assistive Devices Right Railing Technique/Endurance Stair Climbing Direction Ascend and Descend Stair Climbing Technique Step Over Step Number of Steps Climbed 4 PT-OP-H Neuro Start: 09/17/19 18:00 Freq: Status: Active Protocol: Document 04/28/21 11:15 DCW (Rec: 04/28/21 11:58 DCW [id number]) Deep Tendon Reflex & Clonus Assessment Deep Tendon Reflex Left Achilles Deep Tendon Reflex 2+ Normal Left Patellar Deep Tendon Reflex 2+ Normal Ankle Clonus Left Clonus Assessment Sustained Muscle Tone Tone Assessment Left Lower Extremity Flexor Tone Description Mild Hypotonicity PT-OP-M Strength Start: 09/17/19 18:00 Freq: Status: Active Protocol: Document 04/28/21 11:15 DCW (Rec: 04/28/21 11:58 DCW [id number]) Hip Strength Hip Manual Muscle Testing Left Flexion (L2) 4+ Good+ Extension (S1) 5 Normal Abduction 4 Good Adduction 5 Normal External Rotation 4 Good Internal Rotation 4 Good Knee Strength Knee Manual Muscle Testing Left Flexion (S2) 4 Good Extension (L3) 5 Normal Ankle/Foot Strength Ankle and Foot Manual Muscle Testing Left Dorsiflexion (L4) 5 Normal Plantarflexion (S1) 4 Good Inversion 4 Good Eversion (S1) 4 Good PT-OP-Q Treatments Start: 09/17/19 18:00 Freq: Status: Active Protocol: Document 08/31/21 12:00 DCW (Rec: 08/31/21 13:04 DCW [id number]) Gait Training Gait Activity No AD Description No AD Device Used None Level of Assistance SBA Distance/Duration 950' Comments VCs to promote heel-toe gait, extend left knee during stance phase Neuro Re-Education Treatment Other Activities Chain reading Details Chain reading Comments Reading medium Skip doubles, then only doubles 1 Details Vision exercise Comments Vertical line down middle of horizontal 22 lines: 14 within 1/4 of center, 1 double line DURAN chart Details DURAN chart reading Comments Focus on saccadic movements PT-OP-R Modalities Start: 09/17/19 18:00 Freq: Status: Active Protocol: Document 07/27/21 13:45 DCW (Rec: 07/27/21 14:29 DCW [id number]) Electric Stimulation Electric Stimulation Interferential Current (IFC) Body Location L ant ankle Duration (Minutes) 15 Patient Position Sitting Combined With Heat/Cold Cold Pack PT-OP-S Aquatic Treatment Start: 09/17/19 18:00 Freq: Status: Active Protocol: Document 01/30/20 12:30 LJ (Rec: 01/30/20 14:54 LJ [id number]) Aquatics Treatment Pool Entry/Exit Pool Entry/Exit Method Lift Assistance Minimal Assistance Water Walking Slow motion Water Level Chest Level Walking Equipment wet vest, UE float, #2.5 ankle wt Level of Assistance Standby Assistance,Contact Guard Assistance,Moderate Assistance Comments emphasis on LLE extension stance phase January Water Level Chest Level Walking Equipment wet vest, UE float, #2.5 ankle wt Level of Assistance Standby Assistance,Contact Guard Assistance,Moderate Assistance,Verbal Cues Forward with emphasis on reciprocal gait pattern Water Level Chest Level Level of Assistance Standby Assistance,Contact Guard Assistance,Minimal Assistance,Verbal Cues Comments wetvest, sm float on LUE, #3. 75 ankle wt on LLE start stop walking forward and backward Water Level Chest Level Walking Equipment vest Level of Assistance Contact Guard Assistance, Verbal Cues Comments wetvest, sm float on LUE, #3. 75 ankle wt on LLE Sideways Water Level Chest Level Walking Equipment wet vest, UE float, #2.5 ankle wt Level of Assistance Standby Assistance,Contact Guard Assistance,Minimal Assistance,Verbal Cues Lower Extremity Exercises SL aquats Details HH on wall Body Position Standing Water Level Waist Level Equipment wetvest Reps/Duration 2x10 LLE Comments VC to extend knee knee extensions Details seated in lift chair Equipment Ankle Weight- 5.0# Reps/Duration 20 B Comments seated in lift SLS Details bracing LLE Body Position Standing Water Level Chest Level Equipment vest Reps/Duration 1 min marching at wall Water Level Chest Level Reps/Duration 2 min Comments opposite UE/LE tapping wall squats Body Position Standing Water Level Chest Level Reps/Duration 20x Lower Extremity Stretches adductors Comments seated in chair Gastroc Body Position Sitting Reps/Duration 2 x 45 sec B Comments manual assist hip flexors Details at wall Body Position Standing Water Level Waist Level Reps/Duration 2x45 Comments manually assisted HS Details at wall Body Position Sitting Water Level Waist Level Equipment wet vest Reps/Duration 2x45 Comments sitting in lift chair assisted Upper Extremity Exercises breastroke UE's Body Position Standing Water Level Chest Level Reps/Duration 3 min Comments during walking and deep water hor ab/ad Water Level Chest Level Comments during side walking, CGA Balance step ups Details step ups/down using boxes Body Position Standing Water Level Waist Level Equipment 8 boxes Comments mod verbal cues for coordination [place] Activities [place] Activities Bicycle,Cross Country Equipment wet vest, white noodle Duration 7 min Comments Guy and cues for vertical alignmernt. PT-OP-T Assessment and Plan Start: 09/17/19 18:00 Freq: Status: Active Protocol: Document 08/31/21 12:00 DCW (Rec: 08/31/21 13:04 DCW [id number]) Physical Therapy Assessment Impairments Impairments Activity Tolerance,Balance, Coordination,Functional Activities,Functional Mobility ,Gait,Pain,ROM,Sensation, Strength,Tone,Transfers Goals Six Impairment Decreased Static Balance Short Term Goal (STG) Pt to score <9 seconds on TUG STG Duration Met Cupola Mechanic Goal (LTG) NEW GOAL: Pt to score 53/56 on Adler Balance Scale LTG Duration 10/04/21 - Improving, 51/56 Five Impairment Pt uses R rail and step-over gait pattern ascending stairs Prison Goal (LTG) Pt to ascend/descend stairs independently without use of rail LTG Duration 10/04/21 - Improving Four Impairment Pt demonstrates strength impairment throughout left LE Cupola Mechanic Goal (LTG) Pt to display MMT >3+/5 through L LE LTG Duration Met Three Impairment Pt SBA for transfers and bed mobility d/t Left Neglect Prison Goal (LTG) Pt to demonstrate independent transfers and bed mobility with an ability to address left LE and UE 80% of the time LTG Duration Met Two Impairment Pt ambulates 280' CGA /s an AD Short Term Goal (STG) Pt to ambulate 400' SBA independently STG Duration Met Prison Goal (LTG) Pt to ambulate 800' during 6 MWT Independently without SBA LTG Duration 11/03/21 - Improving (1408' SBA) One Impairment Pt does not have an appropriate home exercise program Short Term Goal (STG) Pt to be independent and compliant with an appropriate HEP STG Duration Met Assessment Summary Assessment Pt continues to have difficulty with left scanning despite constant verbal cues with Duran chart saccadic reading. Physical Therapy Plan Frequency and Duration Frequency of Treatment 1-2x/wk Duration of Treatment 3 months Plan of Care Start Date 08/04/21 Plan of Care End Date 11/03/21 Therapeutic Interventions Therapeutic Interventions Aquatic Therapy,Balance Training,Coordination Training ,Gait Training,Home Exercise Program,Manual Therapy, Neuromuscular Re-education, Patient/Caregiver Education, Self-Care/Home Management, Therapeutic Activities, Therapeutic Exercises Modalities Cold Pack/Ice Massage,Electric Stimulation,Hot Packs, Ultrasound Next Visit Focus/Plan Next Note Type Treatment Note Next Visit Plan SLS, visual scanning, increased activity tolerance
--- NOTE | 2021-09-12 14:30 | PT.OTN ---
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) Physical Therapy Treatment Note PT-OP-A Visit Information Start: 09/17/19 18:00 Freq: Status: Active Protocol: Document 09/12/21 13:46 DCW (Rec: 09/12/21 14:30 DCW [id number]) Out-Patient Physical Therapy Visit Information Visit Information Visit Type Treatment Note Visit Start Time 13:46 Visit Stop Time 14:30 Total Visit Minutes 44 Visit Number 136 Number of CASH APPLICATIONS CLERK Visits 0 Evaluation Information Evaluation Date 09/17/19 PT-OP-B Current Condition Start: 09/17/19 18:00 Freq: Status: Active Protocol: Document 09/17/19 12:00 DCW (Rec: 09/18/19 10:29 DCW [id number]) Current Condition History of Current Condition Onset Date 04/14/19 Current Complaints Hemiparesis secondary to CVA History of Current Condition Pt is a 69 year old male presenting to skilled outpatient physical therapy with left-side neglect, hemiparesis, loss of independence, and difficulty walking following an intraparenchymal hemorrhage on 04/14/19. Pt was transferred from [facility] to [facility], where a craniotomy was performed on 04/16/19. Pt completed 7 weeks of rehab/ recovery at [facility], and then underwent a second surgery on 06/26/19 to replace the skull fragment. Pt was then at an acute rehab facility 06/30-07/18/19, and since then has been receiving home health physical therapy. Pt presents today with limited left-sided function, left visual and physical neglect, difficulty with transfers, decreased activity tolerance, decreased gait, and many other secondary effects following his CVA. Pt has been working on ambulation with a vale walker with home health, and his states he has walked around 100' a few times, but always with a therapist, as she does not feel comfortable walking with him yet. Pt exclusively gets around at time of evaluation in a manual wheelchair. Pt's transfers have been going fairly well, with his caregivers performing CGA, however pt will occasionally need assistance with placement of his left UE and LE due to neglect. Pt's biggest complaint at the moment is leg pain, his reports they have tried PT, Massage, CBD il, Tylenol, Oxycodine, and Gabapentin, all with minimal benefit. Prior to CVA, pt was fully independent in all activities. Pt and have garegivers 8 hrs a day for assistance. Prior Treatments and Tests Craniotomy 04/16/19, Acute rehab, Skull fragment replacement 06/26/19, home health PT Prior Functional Status Baseline Function- ADL's Independent Baseline Function- Mobility Independent PT-OP-C Subjective Start: 09/17/19 18:00 Freq: Status: Active Protocol: Document 09/12/21 13:46 DCW (Rec: 09/12/21 14:30 DCW [id number]) OP-PT Subjective Patient Comments Patient Comments Pt reports he has new orthotics in his shoes, and is still getting used to them. PT-OP-D Balance Start: 08/04/20 14:14 Freq: Status: Active Protocol: Document 08/04/21 16:50 DCW (Rec: 08/04/21 17:40 DCW [id number]) Balance Tests Adler Balance Test Adler Balance Test Score 51/56 Adler Impairment Rating 1 to 19% Impaired (Score 45-55 ) Adler Balance Assessment Evaluation Sitting to Standing Ability Independent w/out Hands Unsupported Stance Safely- 2 minutes Sitting Unsupported, Feet on Floor Safely- 2 minutes Standing to Sitting Ability Safely, Minimal Hand Use Transfer Ability Safely, Minimal Hand Use Unsupported Stance- Eyes Closed Safely, 10 seconds Unsupported Stance- Eyes Open Independent, 1 minute Reaching Forward Standing Confidently, 10 inches Pick- Up Object From Floor Independent/Safe Look Behind Shoulder - Standing Shifts Weight Well Turning 360 Degrees Turns , < 4 secs Unsupported Stance, Alternating Feet on (I)- 8 Steps in 20 secs Stair Unsupported Tandem Stance Holds Tandem- 30 seconds Unilateral Leg Stance Lifts Leg/Unable to Hold Total Score Adler Total Score (out of 56 points) 51 Adler Impairment Rating 1 to 19% Impaired (Score 45-55 ) PT-OP-E Functional Tests Start: 05/04/20 15:15 Freq: Status: Active Protocol: Document 08/04/21 16:50 DCW (Rec: 08/04/21 17:40 DCW [id number]) Functional Tests 6 Minute Walk Test Distance 1228' Device Used none Comments 3.41 ft/sec PT-OP-G Mobility & Gait Start: 09/17/19 18:00 Freq: Status: Active Protocol: Document 08/04/21 16:50 DCW (Rec: 08/04/21 17:40 DCW [id number]) OP Gait Assessment Gait Gait Assistance Required: Standby Assistance Distance (Feet) 1,228 Assistive Devices Assistive Device None Gait Deviations General Gait Pattern Antalgic,Ataxic,Flexed Trunk Factors Limiting Gait Function Factors Limiting Gait Function Abnormal Tonal Influences, Decreased Activity Tolerance, Decreased Sensation,Poor Safety Awareness,Respiratory Distress Stair Climbing Evaluation Evaluation Level of Assist On Stairs Standby Assistance Devices Stair Climbing Assistive Devices Right Railing Technique/Endurance Stair Climbing Direction Ascend and Descend Stair Climbing Technique Step Over Step Number of Steps Climbed 4 PT-OP-H Neuro Start: 09/17/19 18:00 Freq: Status: Active Protocol: Document 04/28/21 11:15 DCW (Rec: 04/28/21 11:58 DCW [id number]) Deep Tendon Reflex & Clonus Assessment Deep Tendon Reflex Left Achilles Deep Tendon Reflex 2+ Normal Left Patellar Deep Tendon Reflex 2+ Normal Ankle Clonus Left Clonus Assessment Sustained Muscle Tone Tone Assessment Left Lower Extremity Flexor Tone Description Mild Hypotonicity PT-OP-M Strength Start: 09/17/19 18:00 Freq: Status: Active Protocol: Document 04/28/21 11:15 DCW (Rec: 04/28/21 11:58 DCW [id number]) Hip Strength Hip Manual Muscle Testing Left Flexion (L2) 4+ Good+ Extension (S1) 5 Normal Abduction 4 Good Adduction 5 Normal External Rotation 4 Good Internal Rotation 4 Good Knee Strength Knee Manual Muscle Testing Left Flexion (S2) 4 Good Extension (L3) 5 Normal Ankle/Foot Strength Ankle and Foot Manual Muscle Testing Left Dorsiflexion (L4) 5 Normal Plantarflexion (S1) 4 Good Inversion 4 Good Eversion (S1) 4 Good PT-OP-Q Treatments Start: 09/17/19 18:00 Freq: Status: Active Protocol: Document 09/12/21 13:46 DCW (Rec: 09/12/21 14:30 DCW [id number]) Gait Training Gait Activity No AD Description No AD Device Used None Level of Assistance SBA Distance/Duration 950' Comments VCs to promote heel-toe gait, extend left knee during stance phase Neuro Re-Education Treatment Other Activities 1 Details Vision exercise Comments Vertical line down middle of horizontal 22 lines: 14 within 1/4 of center, 0 double lines PENA chart Details PENA chart reading Comments Focus on saccadic movements PT-OP-R Modalities Start: 09/17/19 18:00 Freq: Status: Active Protocol: Document 07/27/21 13:45 DCW (Rec: 07/27/21 14:29 DCW [id number]) Electric Stimulation Electric Stimulation Interferential Current (IFC) Body Location L ant ankle Duration (Minutes) 15 Patient Position Sitting Combined With Heat/Cold Cold Pack PT-OP-S Aquatic Treatment Start: 09/17/19 18:00 Freq: Status: Active Protocol: Document 01/30/20 12:30 LJ (Rec: 01/30/20 14:54 LJ [id number]) Aquatics Treatment Pool Entry/Exit Pool Entry/Exit Method Lift Assistance Minimal Assistance Water Walking Slow motion Water Level Chest Level Walking Equipment wet vest, UE float, #2.5 ankle wt Level of Assistance Standby Assistance,Contact Guard Assistance,Moderate Assistance Comments emphasis on LLE extension stance phase January Water Level Chest Level Walking Equipment wet vest, UE float, #2.5 ankle wt Level of Assistance Standby Assistance,Contact Guard Assistance,Moderate Assistance,Verbal Cues Forward with emphasis on reciprocal gait pattern Water Level Chest Level Level of Assistance Standby Assistance,Contact Guard Assistance,Minimal Assistance,Verbal Cues Comments wetvest, sm float on LUE, #3. 75 ankle wt on LLE start stop walking forward and backward Water Level Chest Level Walking Equipment vest Level of Assistance Contact Guard Assistance, Verbal Cues Comments wetvest, sm float on LUE, #3. 75 ankle wt on LLE Sideways Water Level Chest Level Walking Equipment wet vest, UE float, #2.5 ankle wt Level of Assistance Standby Assistance,Contact Guard Assistance,Minimal Assistance,Verbal Cues Lower Extremity Exercises SL aquats Details HH on wall Body Position Standing Water Level Waist Level Equipment wetvest Reps/Duration 2x10 LLE Comments VC to extend knee knee extensions Details seated in lift chair Equipment Ankle Weight- 5.0# Reps/Duration 20 B Comments seated in lift SLS Details bracing LLE Body Position Standing Water Level Chest Level Equipment vest Reps/Duration 1 min marching at wall Water Level Chest Level Reps/Duration 2 min Comments opposite UE/LE tapping wall squats Body Position Standing Water Level Chest Level Reps/Duration 20x Lower Extremity Stretches adductors Comments seated in chair Gastroc Body Position Sitting Reps/Duration 2 x 45 sec B Comments manual assist hip flexors Details at wall Body Position Standing Water Level Waist Level Reps/Duration 2x45 Comments manually assisted HS Details at wall Body Position Sitting Water Level Waist Level Equipment wet vest Reps/Duration 2x45 Comments sitting in lift chair assisted Upper Extremity Exercises breastroke UE's Body Position Standing Water Level Chest Level Reps/Duration 3 min Comments during walking and deep water hor ab/ad Water Level Chest Level Comments during side walking, CGA Balance step ups Details step ups/down using boxes Body Position Standing Water Level Waist Level Equipment 8 boxes Comments mod verbal cues for coordination [place] Activities [place] Activities Bicycle,Cross Country Equipment wet vest, white noodle Duration 7 min Comments Guy and cues for vertical alignmernt. PT-OP-T Assessment and Plan Start: 09/17/19 18:00 Freq: Status: Active Protocol: Document 09/12/21 13:46 DCW (Rec: 09/12/21 14:30 DCW [id number]) Physical Therapy Assessment Impairments Impairments Activity Tolerance,Balance, Coordination,Functional Activities,Functional Mobility ,Gait,Pain,ROM,Sensation, Strength,Tone,Transfers Goals Six Impairment Decreased Static Balance Short Term Goal (STG) Pt to score <9 seconds on TUG STG Duration Met Mandarin Teacher Goal (LTG) NEW GOAL: Pt to score 53/56 on Adler Balance Scale LTG Duration 10/04/21 - Improving, 51/56 Five Impairment Pt uses R rail and step-over gait pattern ascending stairs Mandarin Teacher Goal (LTG) Pt to ascend/descend stairs independently without use of rail LTG Duration 10/04/21 - Improving Four Impairment Pt demonstrates strength impairment throughout left LE Mandarin Teacher Goal (LTG) Pt to display MMT >3+/5 through L LE LTG Duration Met Three Impairment Pt SBA for transfers and bed mobility d/t Left Neglect Mandarin Teacher Goal (LTG) Pt to demonstrate independent transfers and bed mobility with an ability to address left LE and UE 80% of the time LTG Duration Met Two Impairment Pt ambulates 280' CGA /s an AD Short Term Goal (STG) Pt to ambulate 400' SBA independently STG Duration Met [facility] Goal (LTG) Pt to ambulate 800' during 6 MWT Independently without SBA LTG Duration 11/03/21 - Improving (1408' SBA) One Impairment Pt does not have an appropriate home exercise program Short Term Goal (STG) Pt to be independent and compliant with an appropriate HEP STG Duration Met Assessment Summary Assessment Pt did much better with the PENA chart today, fewer verbal cues required from the therapist. Physical Therapy Plan Frequency and Duration Frequency of Treatment 1-2x/wk Duration of Treatment 3 months Plan of Care Start Date 08/04/21 Plan of Care End Date 11/03/21 Therapeutic Interventions Therapeutic Interventions Aquatic Therapy,Balance Training,Coordination Training ,Gait Training,Home Exercise Program,Manual Therapy, Neuromuscular Re-education, Patient/Caregiver Education, Self-Care/Home Management, Therapeutic Activities, Therapeutic Exercises Modalities Cold Pack/Ice Massage,Electric Stimulation,Hot Packs, Ultrasound Next Visit Focus/Plan Next Note Type Treatment Note Next Visit Plan SLS, visual scanning, increased activity tolerance
--- NOTE | 2021-09-19 12:50 | PT.OTN ---
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) Physical Therapy Treatment Note PT-OP-A Visit Information Start: 09/17/19 18:00 Freq: Status: Active Protocol: Document 09/19/21 12:05 DCW (Rec: 09/19/21 12:50 DCW [id number]) Out-Patient Physical Therapy Visit Information Visit Information Visit Type Treatment Note Visit Start Time 12:05 Visit Stop Time 12:45 Total Visit Minutes 40 Visit Number 137 Number of HOME ADVISOR Visits 0 Evaluation Information Evaluation Date 09/17/19 PT-OP-B Current Condition Start: 09/17/19 18:00 Freq: Status: Active Protocol: Document 09/17/19 12:00 DCW (Rec: 09/18/19 10:29 DCW [id number]) Current Condition History of Current Condition Onset Date 04/14/19 Current Complaints Hemiparesis secondary to CVA History of Current Condition Pt is a 69 year old male presenting to skilled outpatient physical therapy with left-side neglect, hemiparesis, loss of independence, and difficulty walking following an intraparenchymal hemorrhage on 04/14/19. Pt was transferred from [facility] to [facility], where a craniotomy was performed on 04/16/19. Pt completed 7 weeks of rehab/ recovery at [facility], and then underwent a second surgery on 06/26/19 to replace the skull fragment. Pt was then at an acute rehab facility 06/30-07/18/19, and since then has been receiving home health physical therapy. Pt presents today with limited left-sided function, left visual and physical neglect, difficulty with transfers, decreased activity tolerance, decreased gait, and many other secondary effects following his CVA. Pt has been working on ambulation with a vale walker with home health, and his states he has walked around 100' a few times, but always with a therapist, as she does not feel comfortable walking with him yet. Pt exclusively gets around at time of evaluation in a manual wheelchair. Pt's transfers have been going fairly well, with his caregivers performing CGA, however pt will occasionally need assistance with placement of his left UE and LE due to neglect. Pt's biggest complaint at the moment is leg pain, his reports they have tried PT, Massage, CBD il, Tylenol, Oxycodine, and Gabapentin, all with minimal benefit. Prior to CVA, pt was fully independent in all activities. Pt and have garegivers 8 hrs a day for assistance. Prior Treatments and Tests Craniotomy 04/16/19, Acute rehab, Skull fragment replacement 06/26/19, home health PT Prior Functional Status Baseline Function- ADL's Independent Baseline Function- Mobility Independent PT-OP-C Subjective Start: 09/17/19 18:00 Freq: Status: Active Protocol: Document 09/19/21 12:05 DCW (Rec: 09/19/21 12:50 DCW [id number]) OP-PT Subjective Patient Comments Patient Comments I'm just frustrated with all this stroke stuff. PT-OP-D Balance Start: 08/04/20 14:14 Freq: Status: Active Protocol: Document 08/04/21 16:50 DCW (Rec: 08/04/21 17:40 DCW [id number]) Balance Tests Adler Balance Test Adler Balance Test Score 51/56 Adler Impairment Rating 1 to 19% Impaired (Score 45-55 ) Adler Balance Assessment Evaluation Sitting to Standing Ability Independent w/out Hands Unsupported Stance Safely- 2 minutes Sitting Unsupported, Feet on Floor Safely- 2 minutes Standing to Sitting Ability Safely, Minimal Hand Use Transfer Ability Safely, Minimal Hand Use Unsupported Stance- Eyes Closed Safely, 10 seconds Unsupported Stance- Eyes Open Independent, 1 minute Reaching Forward Standing Confidently, 10 inches Pick- Up Object From Floor Independent/Safe Look Behind Shoulder - Standing Shifts Weight Well Turning 360 Degrees Turns , < 4 secs Unsupported Stance, Alternating Feet on (I)- 8 Steps in 20 secs Stair Unsupported Tandem Stance Holds Tandem- 30 seconds Unilateral Leg Stance Lifts Leg/Unable to Hold Total Score Adler Total Score (out of 56 points) 51 Adler Impairment Rating 1 to 19% Impaired (Score 45-55 ) PT-OP-E Functional Tests Start: 06/16/20 15:15 Freq: Status: Active Protocol: Document 08/04/21 16:50 DCW (Rec: 08/04/21 17:40 DCW [id number]) Functional Tests 6 Minute Walk Test Distance 1228' Device Used none Comments 3.41 ft/sec PT-OP-G Mobility & Gait Start: 09/17/19 18:00 Freq: Status: Active Protocol: Document 08/04/21 16:50 DCW (Rec: 08/04/21 17:40 DCW [id number]) OP Gait Assessment Gait Gait Assistance Required: Standby Assistance Distance (Feet) 1,228 Assistive Devices Assistive Device None Gait Deviations General Gait Pattern Antalgic,Ataxic,Flexed Trunk Factors Limiting Gait Function Factors Limiting Gait Function Abnormal Tonal Influences, Decreased Activity Tolerance, Decreased Sensation,Poor Safety Awareness,Respiratory Distress Stair Climbing Evaluation Evaluation Level of Assist On Stairs Standby Assistance Devices Stair Climbing Assistive Devices Right Railing Technique/Endurance Stair Climbing Direction Ascend and Descend Stair Climbing Technique Step Over Step Number of Steps Climbed 4 PT-OP-H Neuro Start: 09/17/19 18:00 Freq: Status: Active Protocol: Document 04/28/21 11:15 DCW (Rec: 04/28/21 11:58 DCW [id number]) Deep Tendon Reflex & Clonus Assessment Deep Tendon Reflex Left Achilles Deep Tendon Reflex 2+ Normal Left Patellar Deep Tendon Reflex 2+ Normal Ankle Clonus Left Clonus Assessment Sustained Muscle Tone Tone Assessment Left Lower Extremity Flexor Tone Description Mild Hypotonicity PT-OP-M Strength Start: 09/17/19 18:00 Freq: Status: Active Protocol: Document 04/28/21 11:15 DCW (Rec: 04/28/21 11:58 DCW [id number]) Hip Strength Hip Manual Muscle Testing Left Flexion (L2) 4+ Good+ Extension (S1) 5 Normal Abduction 4 Good Adduction 5 Normal External Rotation 4 Good Internal Rotation 4 Good Knee Strength Knee Manual Muscle Testing Left Flexion (S2) 4 Good Extension (L3) 5 Normal Ankle/Foot Strength Ankle and Foot Manual Muscle Testing Left Dorsiflexion (L4) 5 Normal Plantarflexion (S1) 4 Good Inversion 4 Good Eversion (S1) 4 Good PT-OP-Q Treatments Start: 09/17/19 18:00 Freq: Status: Active Protocol: Document 09/19/21 12:05 DCW (Rec: 09/19/21 12:50 DCW [id number]) Gait Training Gait Activity No AD Description No AD Device Used None Level of Assistance SBA Distance/Duration 950' Comments VCs to promote heel-toe gait, extend left knee during stance phase Neuro Re-Education Treatment Other Activities 1 Details Vision exercise Comments Vertical line down middle of horizontal 22 lines: 15 within 1/4 of center, 2 double lines PENA chart Details PENA chart reading Comments Focus on saccadic movements PT-OP-R Modalities Start: 09/17/19 18:00 Freq: Status: Active Protocol: Document 07/27/21 13:45 DCW (Rec: 07/27/21 14:29 DCW [id number]) Electric Stimulation Electric Stimulation Interferential Current (IFC) Body Location L ant ankle Duration (Minutes) 15 Patient Position Sitting Combined With Heat/Cold Cold Pack PT-OP-S Aquatic Treatment Start: 09/17/19 18:00 Freq: Status: Active Protocol: Document 01/30/20 12:30 LJ (Rec: 01/30/20 14:54 LJ [id number]) Aquatics Treatment Pool Entry/Exit Pool Entry/Exit Method Lift Assistance Minimal Assistance Water Walking Slow motion Water Level Chest Level Walking Equipment wet vest, UE float, #2.5 ankle wt Level of Assistance Standby Assistance,Contact Guard Assistance,Moderate Assistance Comments emphasis on LLE extension stance phase January Water Level Chest Level Walking Equipment wet vest, UE float, #2.5 ankle wt Level of Assistance Standby Assistance,Contact Guard Assistance,Moderate Assistance,Verbal Cues Forward with emphasis on reciprocal gait pattern Water Level Chest Level Level of Assistance Standby Assistance,Contact Guard Assistance,Minimal Assistance,Verbal Cues Comments wetvest, sm float on LUE, #3. 75 ankle wt on LLE start stop walking forward and backward Water Level Chest Level Walking Equipment vest Level of Assistance Contact Guard Assistance, Verbal Cues Comments wetvest, sm float on LUE, #3. 75 ankle wt on LLE Sideways Water Level Chest Level Walking Equipment wet vest, UE float, #2.5 ankle wt Level of Assistance Standby Assistance,Contact Guard Assistance,Minimal Assistance,Verbal Cues Lower Extremity Exercises SL aquats Details HH on wall Body Position Standing Water Level Waist Level Equipment wetvest Reps/Duration 2x10 LLE Comments VC to extend knee knee extensions Details seated in lift chair Equipment Ankle Weight- 5.0# Reps/Duration 20 B Comments seated in lift SLS Details bracing LLE Body Position Standing Water Level Chest Level Equipment vest Reps/Duration 1 min marching at wall Water Level Chest Level Reps/Duration 2 min Comments opposite UE/LE tapping wall squats Body Position Standing Water Level Chest Level Reps/Duration 20x Lower Extremity Stretches adductors Comments seated in chair Gastroc Body Position Sitting Reps/Duration 2 x 45 sec B Comments manual assist hip flexors Details at wall Body Position Standing Water Level Waist Level Reps/Duration 2x45 Comments manually assisted HS Details at wall Body Position Sitting Water Level Waist Level Equipment wet vest Reps/Duration 2x45 Comments sitting in lift chair assisted Upper Extremity Exercises breastroke UE's Body Position Standing Water Level Chest Level Reps/Duration 3 min Comments during walking and deep water hor ab/ad Water Level Chest Level Comments during side walking, CGA Balance step ups Details step ups/down using boxes Body Position Standing Water Level Waist Level Equipment 8 boxes Comments mod verbal cues for coordination Mozier Activities Mozier Activities Bicycle,Cross Country Equipment wet vest, white noodle Duration 7 min Comments Guy and cues for vertical alignmernt. PT-OP-T Assessment and Plan Start: 09/17/19 18:00 Freq: Status: Active Protocol: Document 09/19/21 12:05 DCW (Rec: 09/19/21 12:50 DCW [id number]) Physical Therapy Assessment Impairments Impairments Activity Tolerance,Balance, Coordination,Functional Activities,Functional Mobility ,Gait,Pain,ROM,Sensation, Strength,Tone,Transfers Goals Six Impairment Decreased Static Balance Short Term Goal (STG) Pt to score <9 seconds on TUG STG Duration Met Lead Java Software Engineer Goal (LTG) NEW GOAL: Pt to score 53/56 on Adler Balance Scale LTG Duration 10/04/21 - Improving, 51/56 Five Impairment Pt uses R rail and step-over gait pattern ascending stairs Fdc Goal (LTG) Pt to ascend/descend stairs independently without use of rail LTG Duration 10/04/21 - Improving Four Impairment Pt demonstrates strength impairment throughout left LE Fdc Goal (LTG) Pt to display MMT >3+/5 through L LE LTG Duration Met Three Impairment Pt SBA for transfers and bed mobility d/t Left Neglect Fdc Goal (LTG) Pt to demonstrate independent transfers and bed mobility with an ability to address left LE and UE 80% of the time LTG Duration Met Two Impairment Pt ambulates 280' CGA /s an AD Short Term Goal (STG) Pt to ambulate 400' SBA independently STG Duration Met Lead Java Software Engineer Goal (LTG) Pt to ambulate 800' during 6 MWT Independently without SBA LTG Duration 11/03/21 - Improving (1408' SBA) One Impairment Pt does not have an appropriate home exercise program Short Term Goal (STG) Pt to be independent and compliant with an appropriate HEP STG Duration Met Assessment Summary Assessment Pt improving with finding center of line, still needs verbal reminders that he misses some lines. Physical Therapy Plan Frequency and Duration Frequency of Treatment 1-2x/wk Duration of Treatment 3 months Plan of Care Start Date 08/04/21 Plan of Care End Date 11/03/21 Therapeutic Interventions Therapeutic Interventions Aquatic Therapy,Balance Training,Coordination Training ,Gait Training,Home Exercise Program,Manual Therapy, Neuromuscular Re-education, Patient/Caregiver Education, Self-Care/Home Management, Therapeutic Activities, Therapeutic Exercises Modalities Cold Pack/Ice Massage,Electric Stimulation,Hot Packs, Ultrasound Next Visit Focus/Plan Next Note Type Treatment Note Next Visit Plan SLS, visual scanning, increased activity tolerance
--- NOTE | 2021-09-26 14:31 | PT.OTN ---
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) Physical Therapy Treatment Note PT-OP-A Visit Information Start: 09/17/19 18:00 Freq: Status: Active Protocol: Document 09/26/21 13:47 DCW (Rec: 09/26/21 14:30 DCW [id number]) Out-Patient Physical Therapy Visit Information Visit Information Visit Type Treatment Note Visit Start Time 13:47 Visit Stop Time 14:30 Total Visit Minutes 43 Visit Number 138 Number of BRIM STRETCHER Visits 0 Evaluation Information Evaluation Date 09/17/19 PT-OP-B Current Condition Start: 09/17/19 18:00 Freq: Status: Active Protocol: Document 09/17/19 12:00 DCW (Rec: 09/18/19 10:29 DCW [id number]) Current Condition History of Current Condition Onset Date 04/14/19 Current Complaints Hemiparesis secondary to CVA History of Current Condition Pt is a 69 year old male presenting to skilled outpatient physical therapy with left-side neglect, hemiparesis, loss of independence, and difficulty walking following an intraparenchymal hemorrhage on 04/14/19. Pt was transferred from [facility] to [facility], where a craniotomy was performed on 04/16/19. Pt completed 7 weeks of rehab/ recovery at [facility], and then underwent a second surgery on 06/26/19 to replace the skull fragment. Pt was then at an acute rehab facility 06/30-07/18/19, and since then has been receiving home health physical therapy. Pt presents today with limited left-sided function, left visual and physical neglect, difficulty with transfers, decreased activity tolerance, decreased gait, and many other secondary effects following his CVA. Pt has been working on ambulation with a vale walker with home health, and his states he has walked around 100' a few times, but always with a therapist, as she does not feel comfortable walking with him yet. Pt exclusively gets around at time of evaluation in a manual wheelchair. Pt's transfers have been going fairly well, with his caregivers performing CGA, however pt will occasionally need assistance with placement of his left UE and LE due to neglect. Pt's biggest complaint at the moment is leg pain, his reports they have tried PT, Massage, CBD il, Tylenol, Oxycodine, and Gabapentin, all with minimal benefit. Prior to CVA, pt was fully independent in all activities. Pt and have garegivers 8 hrs a day for assistance. Prior Treatments and Tests Craniotomy 04/16/19, Acute rehab, Skull fragment replacement 06/26/19, home health PT Prior Functional Status Baseline Function- ADL's Independent Baseline Function- Mobility Independent PT-OP-C Subjective Start: 09/17/19 18:00 Freq: Status: Active Protocol: Document 09/26/21 13:47 DCW (Rec: 09/26/21 14:30 DCW [id number]) OP-PT Subjective Patient Comments Patient Comments Pt reports he received his Covid booster vaccination last week, had a day where he felt a little sore, but is now feeling well. PT-OP-D Balance Start: 08/04/20 14:14 Freq: Status: Active Protocol: Document 08/04/21 16:50 DCW (Rec: 08/04/21 17:40 DCW [id number]) Balance Tests Adler Balance Test Adler Balance Test Score 51/56 Adler Impairment Rating 1 to 19% Impaired (Score 45-55 ) Adler Balance Assessment Evaluation Sitting to Standing Ability Independent w/out Hands Unsupported Stance Safely- 2 minutes Sitting Unsupported, Feet on Floor Safely- 2 minutes Standing to Sitting Ability Safely, Minimal Hand Use Transfer Ability Safely, Minimal Hand Use Unsupported Stance- Eyes Closed Safely, 10 seconds Unsupported Stance- Eyes Open Independent, 1 minute Reaching Forward Standing Confidently, 10 inches Pick- Up Object From Floor Independent/Safe Look Behind Shoulder - Standing Shifts Weight Well Turning 360 Degrees Turns , < 4 secs Unsupported Stance, Alternating Feet on (I)- 8 Steps in 20 secs Stair Unsupported Tandem Stance Holds Tandem- 30 seconds Unilateral Leg Stance Lifts Leg/Unable to Hold Total Score Adler Total Score (out of 56 points) 51 Adler Impairment Rating 1 to 19% Impaired (Score 45-55 ) PT-OP-E Functional Tests Start: 05/04/20 15:15 Freq: Status: Active Protocol: Document 08/04/21 16:50 DCW (Rec: 08/04/21 17:40 DCW [id number]) Functional Tests 6 Minute Walk Test Distance 1228' Device Used none Comments 3.41 ft/sec PT-OP-G Mobility & Gait Start: 09/17/19 18:00 Freq: Status: Active Protocol: Document 08/04/21 16:50 DCW (Rec: 08/04/21 17:40 DCW [id number]) OP Gait Assessment Gait Gait Assistance Required: Standby Assistance Distance (Feet) 1,228 Assistive Devices Assistive Device None Gait Deviations General Gait Pattern Antalgic,Ataxic,Flexed Trunk Factors Limiting Gait Function Factors Limiting Gait Function Abnormal Tonal Influences, Decreased Activity Tolerance, Decreased Sensation,Poor Safety Awareness,Respiratory Distress Stair Climbing Evaluation Evaluation Level of Assist On Stairs Standby Assistance Devices Stair Climbing Assistive Devices Right Railing Technique/Endurance Stair Climbing Direction Ascend and Descend Stair Climbing Technique Step Over Step Number of Steps Climbed 4 PT-OP-H Neuro Start: 09/17/19 18:00 Freq: Status: Active Protocol: Document 04/28/21 11:15 DCW (Rec: 04/28/21 11:58 DCW [id number]) Deep Tendon Reflex & Clonus Assessment Deep Tendon Reflex Left Achilles Deep Tendon Reflex 2+ Normal Left Patellar Deep Tendon Reflex 2+ Normal Ankle Clonus Left Clonus Assessment Sustained Muscle Tone Tone Assessment Left Lower Extremity Flexor Tone Description Mild Hypotonicity PT-OP-M Strength Start: 09/17/19 18:00 Freq: Status: Active Protocol: Document 04/28/21 11:15 DCW (Rec: 04/28/21 11:58 DCW [id number]) Hip Strength Hip Manual Muscle Testing Left Flexion (L2) 4+ Good+ Extension (S1) 5 Normal Abduction 4 Good Adduction 5 Normal External Rotation 4 Good Internal Rotation 4 Good Knee Strength Knee Manual Muscle Testing Left Flexion (S2) 4 Good Extension (L3) 5 Normal Ankle/Foot Strength Ankle and Foot Manual Muscle Testing Left Dorsiflexion (L4) 5 Normal Plantarflexion (S1) 4 Good Inversion 4 Good Eversion (S1) 4 Good PT-OP-Q Treatments Start: 09/17/19 18:00 Freq: Status: Active Protocol: Document 09/26/21 13:47 DCW (Rec: 09/26/21 14:30 DCW [id number]) Gait Training Gait Activity No AD Description No AD Device Used None Level of Assistance SBA Distance/Duration 950' Comments VCs to promote heel-toe gait, extend left knee during stance phase Neuro Re-Education Treatment Other Activities 1 Details Vision exercise Comments Vertical line down middle of horizontal 22 lines: 15 within 1/4 of center, 2 double lines, 1 triple line PENA chart Details PENA chart reading Comments Focus on saccadic movements PT-OP-R Modalities Start: 09/17/19 18:00 Freq: Status: Active Protocol: Document 07/27/21 13:45 DCW (Rec: 07/27/21 14:29 DCW [id number]) Electric Stimulation Electric Stimulation Interferential Current (IFC) Body Location L ant ankle Duration (Minutes) 15 Patient Position Sitting Combined With Heat/Cold Cold Pack PT-OP-S Aquatic Treatment Start: 09/17/19 18:00 Freq: Status: Active Protocol: Document 01/30/20 12:30 LJ (Rec: 01/30/20 14:54 LJ [id number]) Aquatics Treatment Pool Entry/Exit Pool Entry/Exit Method Lift Assistance Minimal Assistance Water Walking Slow motion Water Level Chest Level Walking Equipment wet vest, UE float, #2.5 ankle wt Level of Assistance Standby Assistance,Contact Guard Assistance,Moderate Assistance Comments emphasis on LLE extension stance phase January Water Level Chest Level Walking Equipment wet vest, UE float, #2.5 ankle wt Level of Assistance Standby Assistance,Contact Guard Assistance,Moderate Assistance,Verbal Cues Forward with emphasis on reciprocal gait pattern Water Level Chest Level Level of Assistance Standby Assistance,Contact Guard Assistance,Minimal Assistance,Verbal Cues Comments wetvest, sm float on LUE, #3. 75 ankle wt on LLE start stop walking forward and backward Water Level Chest Level Walking Equipment vest Level of Assistance Contact Guard Assistance, Verbal Cues Comments wetvest, sm float on LUE, #3. 75 ankle wt on LLE Sideways Water Level Chest Level Walking Equipment wet vest, UE float, #2.5 ankle wt Level of Assistance Standby Assistance,Contact Guard Assistance,Minimal Assistance,Verbal Cues Lower Extremity Exercises SL aquats Details HH on wall Body Position Standing Water Level Waist Level Equipment wetvest Reps/Duration 2x10 LLE Comments VC to extend knee knee extensions Details seated in lift chair Equipment Ankle Weight- 5.0# Reps/Duration 20 B Comments seated in lift SLS Details bracing LLE Body Position Standing Water Level Chest Level Equipment vest Reps/Duration 1 min marching at wall Water Level Chest Level Reps/Duration 2 min Comments opposite UE/LE tapping wall squats Body Position Standing Water Level Chest Level Reps/Duration 20x Lower Extremity Stretches adductors Comments seated in chair Gastroc Body Position Sitting Reps/Duration 2 x 45 sec B Comments manual assist hip flexors Details at wall Body Position Standing Water Level Waist Level Reps/Duration 2x45 Comments manually assisted HS Details at wall Body Position Sitting Water Level Waist Level Equipment wet vest Reps/Duration 2x45 Comments sitting in lift chair assisted Upper Extremity Exercises breastroke UE's Body Position Standing Water Level Chest Level Reps/Duration 3 min Comments during walking and deep water hor ab/ad Water Level Chest Level Comments during side walking, CGA Balance step ups Details step ups/down using boxes Body Position Standing Water Level Waist Level Equipment 8 boxes Comments mod verbal cues for coordination [place] Activities [place] Activities Bicycle,Cross Country Equipment wet vest, white noodle Duration 7 min Comments Guy and cues for vertical alignmernt. PT-OP-T Assessment and Plan Start: 09/17/19 18:00 Freq: Status: Active Protocol: Document 09/26/21 13:47 DCW (Rec: 09/26/21 14:30 DCW [id number]) Physical Therapy Assessment Impairments Impairments Activity Tolerance,Balance, Coordination,Functional Activities,Functional Mobility ,Gait,Pain,ROM,Sensation, Strength,Tone,Transfers Goals Six Impairment Decreased Static Balance Short Term Goal (STG) Pt to score <9 seconds on TUG STG Duration Met Care Home Goal (LTG) NEW GOAL: Pt to score 53/56 on Adler Balance Scale LTG Duration 10/04/21 - Improving, 51/56 Five Impairment Pt uses R rail and step-over gait pattern ascending stairs Care Home Goal (LTG) Pt to ascend/descend stairs independently without use of rail LTG Duration 10/04/21 - Improving Four Impairment Pt demonstrates strength impairment throughout left LE Software Development Analyst Goal (LTG) Pt to display MMT >3+/5 through L LE LTG Duration Met Three Impairment Pt SBA for transfers and bed mobility d/t Left Neglect Software Development Analyst Goal (LTG) Pt to demonstrate independent transfers and bed mobility with an ability to address left LE and UE 80% of the time LTG Duration Met Two Impairment Pt ambulates 280' CGA /s an AD Short Term Goal (STG) Pt to ambulate 400' SBA independently STG Duration Met Care Home Goal (LTG) Pt to ambulate 800' during 6 MWT Independently without SBA LTG Duration 11/03/21 - Improving (1408' SBA) One Impairment Pt does not have an appropriate home exercise program Short Term Goal (STG) Pt to be independent and compliant with an appropriate HEP STG Duration Met Assessment Summary Assessment Moving through PENA chart a little more quickly today, about to do two full rows with no verbal assistance. Physical Therapy Plan Frequency and Duration Frequency of Treatment 1-2x/wk Duration of Treatment 3 months Plan of Care Start Date 08/04/21 Plan of Care End Date 11/03/21 Therapeutic Interventions Therapeutic Interventions Aquatic Therapy,Balance Training,Coordination Training ,Gait Training,Home Exercise Program,Manual Therapy, Neuromuscular Re-education, Patient/Caregiver Education, Self-Care/Home Management, Therapeutic Activities, Therapeutic Exercises Modalities Cold Pack/Ice Massage,Electric Stimulation,Hot Packs, Ultrasound Next Visit Focus/Plan Next Note Type Treatment Note Next Visit Plan SLS, visual scanning, increased activity tolerance
--- NOTE | 2021-10-04 15:09 | PT.OTN ---
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) Physical Therapy Treatment Note PT-OP-A Visit Information Start: 09/17/19 18:00 Freq: Status: Active Protocol: Document 10/04/21 14:30 DCW (Rec: 10/04/21 15:09 DCW [id number]) Out-Patient Physical Therapy Visit Information Visit Information Visit Type Treatment Note Visit Start Time 14:30 Visit Stop Time 15:15 Total Visit Minutes 45 Visit Number 139 Number of SPRAY TECHNICIAN Visits 0 Evaluation Information Evaluation Date 09/17/19 PT-OP-B Current Condition Start: 09/17/19 18:00 Freq: Status: Active Protocol: Document 09/17/19 12:00 DCW (Rec: 09/18/19 10:29 DCW [id number]) Current Condition History of Current Condition Onset Date 04/14/19 Current Complaints Hemiparesis secondary to CVA History of Current Condition Pt is a 69 year old male presenting to skilled outpatient physical therapy with left-side neglect, hemiparesis, loss of independence, and difficulty walking following an intraparenchymal hemorrhage on 04/14/19. Pt was transferred from [facility] to [facility], where a craniotomy was performed on 04/16/19. Pt completed 7 weeks of rehab/ recovery at [facility], and then underwent a second surgery on 06/26/19 to replace the skull fragment. Pt was then at an acute rehab facility 06/30-07/18/19, and since then has been receiving home health physical therapy. Pt presents today with limited left-sided function, left visual and physical neglect, difficulty with transfers, decreased activity tolerance, decreased gait, and many other secondary effects following his CVA. Pt has been working on ambulation with a vale walker with home health, and his states he has walked around 100' a few times, but always with a therapist, as she does not feel comfortable walking with him yet. Pt exclusively gets around at time of evaluation in a manual wheelchair. Pt's transfers have been going fairly well, with his caregivers performing CGA, however pt will occasionally need assistance with placement of his left UE and LE due to neglect. Pt's biggest complaint at the moment is leg pain, his reports they have tried PT, Massage, CBD il, Tylenol, Oxycodine, and Gabapentin, all with minimal benefit. Prior to CVA, pt was fully independent in all activities. Pt and have garegivers 8 hrs a day for assistance. Prior Treatments and Tests Craniotomy 04/16/19, Acute rehab, Skull fragment replacement 06/26/19, home health PT Prior Functional Status Baseline Function- ADL's Independent Baseline Function- Mobility Independent PT-OP-C Subjective Start: 09/17/19 18:00 Freq: Status: Active Protocol: Document 10/04/21 14:30 DCW (Rec: 10/04/21 15:09 DCW [id number]) OP-PT Subjective Patient Comments Patient Comments Pt reports he went to a [employer] over the weekend, had to use a wheelchair due to the crowds. PT-OP-D Balance Start: 08/04/20 14:14 Freq: Status: Active Protocol: Document 08/04/21 16:50 DCW (Rec: 08/04/21 17:40 DCW [id number]) Balance Tests Adler Balance Test Adler Balance Test Score 51/56 Adler Impairment Rating 1 to 19% Impaired (Score 45-55 ) Adler Balance Assessment Evaluation Sitting to Standing Ability Independent w/out Hands Unsupported Stance Safely- 2 minutes Sitting Unsupported, Feet on Floor Safely- 2 minutes Standing to Sitting Ability Safely, Minimal Hand Use Transfer Ability Safely, Minimal Hand Use Unsupported Stance- Eyes Closed Safely, 10 seconds Unsupported Stance- Eyes Open Independent, 1 minute Reaching Forward Standing Confidently, 10 inches Pick- Up Object From Floor Independent/Safe Look Behind Shoulder - Standing Shifts Weight Well Turning 360 Degrees Turns , < 4 secs Unsupported Stance, Alternating Feet on (I)- 8 Steps in 20 secs Stair Unsupported Tandem Stance Holds Tandem- 30 seconds Unilateral Leg Stance Lifts Leg/Unable to Hold Total Score Adler Total Score (out of 56 points) 51 Adler Impairment Rating 1 to 19% Impaired (Score 45-55 ) PT-OP-E Functional Tests Start: 05/04/20 15:15 Freq: Status: Active Protocol: Document 08/04/21 16:50 DCW (Rec: 08/04/21 17:40 DCW [id number]) Functional Tests 6 Minute Walk Test Distance 1228' Device Used none Comments 3.41 ft/sec PT-OP-G Mobility & Gait Start: 09/17/19 18:00 Freq: Status: Active Protocol: Document 08/04/21 16:50 DCW (Rec: 08/04/21 17:40 DCW [id number]) OP Gait Assessment Gait Gait Assistance Required: Standby Assistance Distance (Feet) 1,228 Assistive Devices Assistive Device None Gait Deviations General Gait Pattern Antalgic,Ataxic,Flexed Trunk Factors Limiting Gait Function Factors Limiting Gait Function Abnormal Tonal Influences, Decreased Activity Tolerance, Decreased Sensation,Poor Safety Awareness,Respiratory Distress Stair Climbing Evaluation Evaluation Level of Assist On Stairs Standby Assistance Devices Stair Climbing Assistive Devices Right Railing Technique/Endurance Stair Climbing Direction Ascend and Descend Stair Climbing Technique Step Over Step Number of Steps Climbed 4 PT-OP-H Neuro Start: 09/17/19 18:00 Freq: Status: Active Protocol: Document 04/28/21 11:15 DCW (Rec: 04/28/21 11:58 DCW [id number]) Deep Tendon Reflex & Clonus Assessment Deep Tendon Reflex Left Achilles Deep Tendon Reflex 2+ Normal Left Patellar Deep Tendon Reflex 2+ Normal Ankle Clonus Left Clonus Assessment Sustained Muscle Tone Tone Assessment Left Lower Extremity Flexor Tone Description Mild Hypotonicity PT-OP-M Strength Start: 09/17/19 18:00 Freq: Status: Active Protocol: Document 04/28/21 11:15 DCW (Rec: 04/28/21 11:58 DCW [id number]) Hip Strength Hip Manual Muscle Testing Left Flexion (L2) 4+ Good+ Extension (S1) 5 Normal Abduction 4 Good Adduction 5 Normal External Rotation 4 Good Internal Rotation 4 Good Knee Strength Knee Manual Muscle Testing Left Flexion (S2) 4 Good Extension (L3) 5 Normal Ankle/Foot Strength Ankle and Foot Manual Muscle Testing Left Dorsiflexion (L4) 5 Normal Plantarflexion (S1) 4 Good Inversion 4 Good Eversion (S1) 4 Good PT-OP-Q Treatments Start: 09/17/19 18:00 Freq: Status: Active Protocol: Document 10/04/21 14:30 DCW (Rec: 10/04/21 15:09 DCW [id number]) Gait Training Gait Activity No AD Description No AD Device Used None Level of Assistance SBA Distance/Duration 740' Comments VCs to promote heel-toe gait, extend left knee during stance phase Neuro Re-Education Treatment Other Activities 1 Details Vision exercise Comments Vertical line down middle of horizontal 22 lines: 14 within 1/4 of center, 0 double lines PENA chart Details PENA chart reading Comments Focus on saccadic movements PT-OP-R Modalities Start: 09/17/19 18:00 Freq: Status: Active Protocol: Document 07/27/21 13:45 DCW (Rec: 07/27/21 14:29 DCW [id number]) Electric Stimulation Electric Stimulation Interferential Current (IFC) Body Location L ant ankle Duration (Minutes) 15 Patient Position Sitting Combined With Heat/Cold Cold Pack PT-OP-S Aquatic Treatment Start: 09/17/19 18:00 Freq: Status: Active Protocol: Document 01/30/20 12:30 LJ (Rec: 01/30/20 14:54 LJ [id number]) Aquatics Treatment Pool Entry/Exit Pool Entry/Exit Method Lift Assistance Minimal Assistance Water Walking Slow motion Water Level Chest Level Walking Equipment wet vest, UE float, #2.5 ankle wt Level of Assistance Standby Assistance,Contact Guard Assistance,Moderate Assistance Comments emphasis on LLE extension stance phase January Water Level Chest Level Walking Equipment wet vest, UE float, #2.5 ankle wt Level of Assistance Standby Assistance,Contact Guard Assistance,Moderate Assistance,Verbal Cues Forward with emphasis on reciprocal gait pattern Water Level Chest Level Level of Assistance Standby Assistance,Contact Guard Assistance,Minimal Assistance,Verbal Cues Comments wetvest, sm float on LUE, #3. 75 ankle wt on LLE start stop walking forward and backward Water Level Chest Level Walking Equipment vest Level of Assistance Contact Guard Assistance, Verbal Cues Comments wetvest, sm float on LUE, #3. 75 ankle wt on LLE Sideways Water Level Chest Level Walking Equipment wet vest, UE float, #2.5 ankle wt Level of Assistance Standby Assistance,Contact Guard Assistance,Minimal Assistance,Verbal Cues Lower Extremity Exercises SL aquats Details HH on wall Body Position Standing Water Level Waist Level Equipment wetvest Reps/Duration 2x10 LLE Comments VC to extend knee knee extensions Details seated in lift chair Equipment Ankle Weight- 5.0# Reps/Duration 20 B Comments seated in lift SLS Details bracing LLE Body Position Standing Water Level Chest Level Equipment vest Reps/Duration 1 min marching at wall Water Level Chest Level Reps/Duration 2 min Comments opposite UE/LE tapping wall squats Body Position Standing Water Level Chest Level Reps/Duration 20x Lower Extremity Stretches adductors Comments seated in chair Gastroc Body Position Sitting Reps/Duration 2 x 45 sec B Comments manual assist hip flexors Details at wall Body Position Standing Water Level Waist Level Reps/Duration 2x45 Comments manually assisted HS Details at wall Body Position Sitting Water Level Waist Level Equipment wet vest Reps/Duration 2x45 Comments sitting in lift chair assisted Upper Extremity Exercises breastroke UE's Body Position Standing Water Level Chest Level Reps/Duration 3 min Comments during walking and deep water hor ab/ad Water Level Chest Level Comments during side walking, CGA Balance step ups Details step ups/down using boxes Body Position Standing Water Level Waist Level Equipment 8 boxes Comments mod verbal cues for coordination [place] Activities [place] Activities Bicycle,Cross Country Equipment wet vest, white noodle Duration 7 min Comments Guy and cues for vertical alignmernt. PT-OP-T Assessment and Plan Start: 09/17/19 18:00 Freq: Status: Active Protocol: Document 10/04/21 14:30 DCW (Rec: 10/04/21 15:09 DCW [id number]) Physical Therapy Assessment Impairments Impairments Activity Tolerance,Balance, Coordination,Functional Activities,Functional Mobility ,Gait,Pain,ROM,Sensation, Strength,Tone,Transfers Goals Six Impairment Decreased Static Balance Short Term Goal (STG) Pt to score <9 seconds on TUG STG Duration Met Longterm Goal (LTG) NEW GOAL: Pt to score 53/56 on Adler Balance Scale LTG Duration 10/04/21 - Improving, 51/56 Five Impairment Pt uses R rail and step-over gait pattern ascending stairs Edger Technician Goal (LTG) Pt to ascend/descend stairs independently without use of rail LTG Duration 10/04/21 - Improving Four Impairment Pt demonstrates strength impairment throughout left LE Longterm Goal (LTG) Pt to display MMT >3+/5 through L LE LTG Duration Met Three Impairment Pt SBA for transfers and bed mobility d/t Left Neglect Longterm Goal (LTG) Pt to demonstrate independent transfers and bed mobility with an ability to address left LE and UE 80% of the time LTG Duration Met Two Impairment Pt ambulates 280' CGA /s an AD Short Term Goal (STG) Pt to ambulate 400' SBA independently STG Duration Met Edger Technician Goal (LTG) Pt to ambulate 800' during 6 MWT Independently without SBA LTG Duration 11/03/21 - Improving (1408' SBA) One Impairment Pt does not have an appropriate home exercise program Short Term Goal (STG) Pt to be independent and compliant with an appropriate HEP STG Duration Met Assessment Summary Assessment Pt had much more difficulty with his PENA chart and line bisection today, required more verbal cues than usual for these tasks Physical Therapy Plan Frequency and Duration Frequency of Treatment 1-2x/wk Duration of Treatment 3 months Plan of Care Start Date 08/04/21 Plan of Care End Date 11/03/21 Therapeutic Interventions Therapeutic Interventions Aquatic Therapy,Balance Training,Coordination Training ,Gait Training,Home Exercise Program,Manual Therapy, Neuromuscular Re-education, Patient/Caregiver Education, Self-Care/Home Management, Therapeutic Activities, Therapeutic Exercises Modalities Cold Pack/Ice Massage,Electric Stimulation,Hot Packs, Ultrasound Next Visit Focus/Plan Next Note Type Treatment Note Next Visit Plan SLS, visual scanning, increased activity tolerance
--- NOTE | 2021-10-10 15:15 | PT.OTN ---
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) Physical Therapy Treatment Note PT-OP-A Visit Information Start: 09/17/19 18:00 Freq: Status: Active Protocol: Document 10/10/21 14:30 DCW (Rec: 10/10/21 15:15 DCW [id number]) Out-Patient Physical Therapy Visit Information Visit Information Visit Type Treatment Note Visit Start Time 14:30 Visit Stop Time 15:15 Total Visit Minutes 45 Visit Number 140 Number of TICKET PRINTER AND TAGGER Visits 0 Evaluation Information Evaluation Date 09/17/19 PT-OP-B Current Condition Start: 09/17/19 18:00 Freq: Status: Active Protocol: Document 09/17/19 12:00 DCW (Rec: 09/18/19 10:29 DCW [id number]) Current Condition History of Current Condition Onset Date 04/14/19 Current Complaints Hemiparesis secondary to CVA History of Current Condition Pt is a 69 year old male presenting to skilled outpatient physical therapy with left-side neglect, hemiparesis, loss of independence, and difficulty walking following an intraparenchymal hemorrhage on 04/14/19. Pt was transferred from [facility] to [facility], where a craniotomy was performed on 04/16/19. Pt completed 7 weeks of rehab/ recovery at [facility], and then underwent a second surgery on 06/26/19 to replace the skull fragment. Pt was then at an acute rehab facility 06/30-07/18/19, and since then has been receiving home health physical therapy. Pt presents today with limited left-sided function, left visual and physical neglect, difficulty with transfers, decreased activity tolerance, decreased gait, and many other secondary effects following his CVA. Pt has been working on ambulation with a vale walker with home health, and his states he has walked around 100' a few times, but always with a therapist, as she does not feel comfortable walking with him yet. Pt exclusively gets around at time of evaluation in a manual wheelchair. Pt's transfers have been going fairly well, with his caregivers performing CGA, however pt will occasionally need assistance with placement of his left UE and LE due to neglect. Pt's biggest complaint at the moment is leg pain, his reports they have tried PT, Massage, CBD il, Tylenol, Oxycodine, and Gabapentin, all with minimal benefit. Prior to CVA, pt was fully independent in all activities. Pt and have garegivers 8 hrs a day for assistance. Prior Treatments and Tests Craniotomy 04/16/19, Acute rehab, Skull fragment replacement 06/26/19, home health PT Prior Functional Status Baseline Function- ADL's Independent Baseline Function- Mobility Independent PT-OP-C Subjective Start: 09/17/19 18:00 Freq: Status: Active Protocol: Document 10/10/21 14:30 DCW (Rec: 10/10/21 15:15 DCW [id number]) OP-PT Subjective Patient Comments Patient Comments Pt's notes that he had some mild vertigo getting up from his bed this morning, but is doing better now. PT-OP-D Balance Start: 08/04/20 14:14 Freq: Status: Active Protocol: Document 08/04/21 16:50 DCW (Rec: 08/04/21 17:40 DCW [id number]) Balance Tests Adler Balance Test Adler Balance Test Score 51/56 Adler Impairment Rating 1 to 19% Impaired (Score 45-55 ) Adler Balance Assessment Evaluation Sitting to Standing Ability Independent w/out Hands Unsupported Stance Safely- 2 minutes Sitting Unsupported, Feet on Floor Safely- 2 minutes Standing to Sitting Ability Safely, Minimal Hand Use Transfer Ability Safely, Minimal Hand Use Unsupported Stance- Eyes Closed Safely, 10 seconds Unsupported Stance- Eyes Open Independent, 1 minute Reaching Forward Standing Confidently, 10 inches Pick- Up Object From Floor Independent/Safe Look Behind Shoulder - Standing Shifts Weight Well Turning 360 Degrees Turns , < 4 secs Unsupported Stance, Alternating Feet on (I)- 8 Steps in 20 secs Stair Unsupported Tandem Stance Holds Tandem- 30 seconds Unilateral Leg Stance Lifts Leg/Unable to Hold Total Score Adler Total Score (out of 56 points) 51 Adler Impairment Rating 1 to 19% Impaired (Score 45-55 ) PT-OP-E Functional Tests Start: 05/04/20 15:15 Freq: Status: Active Protocol: Document 08/04/21 16:50 DCW (Rec: 08/04/21 17:40 DCW [id number]) Functional Tests 6 Minute Walk Test Distance 1228' Device Used none Comments 3.41 ft/sec PT-OP-G Mobility & Gait Start: 09/17/19 18:00 Freq: Status: Active Protocol: Document 08/04/21 16:50 DCW (Rec: 08/04/21 17:40 DCW [id number]) OP Gait Assessment Gait Gait Assistance Required: Standby Assistance Distance (Feet) 1,228 Assistive Devices Assistive Device None Gait Deviations General Gait Pattern Antalgic,Ataxic,Flexed Trunk Factors Limiting Gait Function Factors Limiting Gait Function Abnormal Tonal Influences, Decreased Activity Tolerance, Decreased Sensation,Poor Safety Awareness,Respiratory Distress Stair Climbing Evaluation Evaluation Level of Assist On Stairs Standby Assistance Devices Stair Climbing Assistive Devices Right Railing Technique/Endurance Stair Climbing Direction Ascend and Descend Stair Climbing Technique Step Over Step Number of Steps Climbed 4 PT-OP-H Neuro Start: 09/17/19 18:00 Freq: Status: Active Protocol: Document 04/28/21 11:15 DCW (Rec: 04/28/21 11:58 DCW [id number]) Deep Tendon Reflex & Clonus Assessment Deep Tendon Reflex Left Achilles Deep Tendon Reflex 2+ Normal Left Patellar Deep Tendon Reflex 2+ Normal Ankle Clonus Left Clonus Assessment Sustained Muscle Tone Tone Assessment Left Lower Extremity Flexor Tone Description Mild Hypotonicity PT-OP-M Strength Start: 09/17/19 18:00 Freq: Status: Active Protocol: Document 04/28/21 11:15 DCW (Rec: 04/28/21 11:58 DCW [id number]) Hip Strength Hip Manual Muscle Testing Left Flexion (L2) 4+ Good+ Extension (S1) 5 Normal Abduction 4 Good Adduction 5 Normal External Rotation 4 Good Internal Rotation 4 Good Knee Strength Knee Manual Muscle Testing Left Flexion (S2) 4 Good Extension (L3) 5 Normal Ankle/Foot Strength Ankle and Foot Manual Muscle Testing Left Dorsiflexion (L4) 5 Normal Plantarflexion (S1) 4 Good Inversion 4 Good Eversion (S1) 4 Good PT-OP-Q Treatments Start: 09/17/19 18:00 Freq: Status: Active Protocol: Document 10/10/21 14:30 DCW (Rec: 10/10/21 15:15 DCW [id number]) Gait Training Gait Activity No AD Description No AD Device Used None Level of Assistance SBA Distance/Duration 950' Comments VCs to promote heel-toe gait, extend left knee during stance phase Neuro Re-Education Treatment Other Activities 1 Details Vision exercise Comments Vertical line down middle of horizontal 22 lines: 15 within 1/4 of center, 0 double lines PENA chart Details PENA chart reading Comments Focus on saccadic movements PT-OP-R Modalities Start: 09/17/19 18:00 Freq: Status: Active Protocol: Document 07/27/21 13:45 DCW (Rec: 07/27/21 14:29 DCW [id number]) Electric Stimulation Electric Stimulation Interferential Current (IFC) Body Location L ant ankle Duration (Minutes) 15 Patient Position Sitting Combined With Heat/Cold Cold Pack PT-OP-S Aquatic Treatment Start: 09/17/19 18:00 Freq: Status: Active Protocol: Document 01/30/20 12:30 LJ (Rec: 01/30/20 14:54 LJ [id number]) Aquatics Treatment Pool Entry/Exit Pool Entry/Exit Method Lift Assistance Minimal Assistance Water Walking Slow motion Water Level Chest Level Walking Equipment wet vest, UE float, #2.5 ankle wt Level of Assistance Standby Assistance,Contact Guard Assistance,Moderate Assistance Comments emphasis on LLE extension stance phase January Water Level Chest Level Walking Equipment wet vest, UE float, #2.5 ankle wt Level of Assistance Standby Assistance,Contact Guard Assistance,Moderate Assistance,Verbal Cues Forward with emphasis on reciprocal gait pattern Water Level Chest Level Level of Assistance Standby Assistance,Contact Guard Assistance,Minimal Assistance,Verbal Cues Comments wetvest, sm float on LUE, #3. 75 ankle wt on LLE start stop walking forward and backward Water Level Chest Level Walking Equipment vest Level of Assistance Contact Guard Assistance, Verbal Cues Comments wetvest, sm float on LUE, #3. 75 ankle wt on LLE Sideways Water Level Chest Level Walking Equipment wet vest, UE float, #2.5 ankle wt Level of Assistance Standby Assistance,Contact Guard Assistance,Minimal Assistance,Verbal Cues Lower Extremity Exercises SL aquats Details HH on wall Body Position Standing Water Level Waist Level Equipment wetvest Reps/Duration 2x10 LLE Comments VC to extend knee knee extensions Details seated in lift chair Equipment Ankle Weight- 5.0# Reps/Duration 20 B Comments seated in lift SLS Details bracing LLE Body Position Standing Water Level Chest Level Equipment vest Reps/Duration 1 min marching at wall Water Level Chest Level Reps/Duration 2 min Comments opposite UE/LE tapping wall squats Body Position Standing Water Level Chest Level Reps/Duration 20x Lower Extremity Stretches adductors Comments seated in chair Gastroc Body Position Sitting Reps/Duration 2 x 45 sec B Comments manual assist hip flexors Details at wall Body Position Standing Water Level Waist Level Reps/Duration 2x45 Comments manually assisted HS Details at wall Body Position Sitting Water Level Waist Level Equipment wet vest Reps/Duration 2x45 Comments sitting in lift chair assisted Upper Extremity Exercises breastroke UE's Body Position Standing Water Level Chest Level Reps/Duration 3 min Comments during walking and deep water hor ab/ad Water Level Chest Level Comments during side walking, CGA Balance step ups Details step ups/down using boxes Body Position Standing Water Level Waist Level Equipment 8 boxes Comments mod verbal cues for coordination [place] Activities [place] Activities Bicycle,Cross Country Equipment wet vest, white noodle Duration 7 min Comments Guy and cues for vertical alignmernt. PT-OP-T Assessment and Plan Start: 09/17/19 18:00 Freq: Status: Active Protocol: Document 10/10/21 14:30 DCW (Rec: 10/10/21 15:15 DCW [id number]) Physical Therapy Assessment Impairments Impairments Activity Tolerance,Balance, Coordination,Functional Activities,Functional Mobility ,Gait,Pain,ROM,Sensation, Strength,Tone,Transfers Goals Six Impairment Decreased Static Balance Short Term Goal (STG) Pt to score <9 seconds on TUG STG Duration Met Assisted Goal (LTG) NEW GOAL: Pt to score 53/56 on Adler Balance Scale LTG Duration 10/04/21 - Improving, 51/56 Five Impairment Pt uses R rail and step-over gait pattern ascending stairs Transformer Mechanic Goal (LTG) Pt to ascend/descend stairs independently without use of rail LTG Duration 10/04/21 - Improving Four Impairment Pt demonstrates strength impairment throughout left LE Transformer Mechanic Goal (LTG) Pt to display MMT >3+/5 through L LE LTG Duration Met Three Impairment Pt SBA for transfers and bed mobility d/t Left Neglect Assisted Goal (LTG) Pt to demonstrate independent transfers and bed mobility with an ability to address left LE and UE 80% of the time LTG Duration Met Two Impairment Pt ambulates 280' CGA /s an AD Short Term Goal (STG) Pt to ambulate 400' SBA independently STG Duration Met Assisted Goal (LTG) Pt to ambulate 800' during 6 MWT Independently without SBA LTG Duration 11/03/21 - Improving (1408' SBA) One Impairment Pt does not have an appropriate home exercise program Short Term Goal (STG) Pt to be independent and compliant with an appropriate HEP STG Duration Met Assessment Summary Assessment Substantial improvement today in all visual scanning areas. Best score bisecting lines, and was able to get 4 PENA chart lines 100% accurate without any assistance, which is by far his best showing, and was going quickly enough that he got through all 10 lines, which is also a first. Physical Therapy Plan Frequency and Duration Frequency of Treatment 1-2x/wk Duration of Treatment 3 months Plan of Care Start Date 08/04/21 Plan of Care End Date 11/03/21 Therapeutic Interventions Therapeutic Interventions Aquatic Therapy,Balance Training,Coordination Training ,Gait Training,Home Exercise Program,Manual Therapy, Neuromuscular Re-education, Patient/Caregiver Education, Self-Care/Home Management, Therapeutic Activities, Therapeutic Exercises Modalities Cold Pack/Ice Massage,Electric Stimulation,Hot Packs, Ultrasound Next Visit Focus/Plan Next Note Type Treatment Note Next Visit Plan SLS, visual scanning, increased activity tolerance
--- NOTE | 2021-10-31 15:56 | PT.OTN ---
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) Physical Therapy Treatment Note PT-OP-A Visit Information Start: 09/17/19 18:00 Freq: Status: Active Protocol: Document 10/31/21 14:30 DCW (Rec: 10/31/21 15:56 DCW [id number]) Out-Patient Physical Therapy Visit Information Visit Information Visit Type Treatment Note Visit Start Time 14:30 Visit Stop Time 15:15 Total Visit Minutes 45 Visit Number 141 Number of THERAPEUTIC PROGRAM WORKER Visits 0 Evaluation Information Evaluation Date 09/17/19 PT-OP-B Current Condition Start: 09/17/19 18:00 Freq: Status: Active Protocol: Document 09/17/19 12:00 DCW (Rec: 09/18/19 10:29 DCW [id number]) Current Condition History of Current Condition Onset Date 04/14/19 Current Complaints Hemiparesis secondary to CVA History of Current Condition Pt is a 69 year old male presenting to skilled outpatient physical therapy with left-side neglect, hemiparesis, loss of independence, and difficulty walking following an intraparenchymal hemorrhage on 04/14/19. Pt was transferred from [facility] to [facility], where a craniotomy was performed on 04/16/19. Pt completed 7 weeks of rehab/ recovery at [facility], and then underwent a second surgery on 06/26/19 to replace the skull fragment. Pt was then at an acute rehab facility 06/30-07/18/19, and since then has been receiving home health physical therapy. Pt presents today with limited left-sided function, left visual and physical neglect, difficulty with transfers, decreased activity tolerance, decreased gait, and many other secondary effects following his CVA. Pt has been working on ambulation with a vale walker with home health, and his states he has walked around 100' a few times, but always with a therapist, as she does not feel comfortable walking with him yet. Pt exclusively gets around at time of evaluation in a manual wheelchair. Pt's transfers have been going fairly well, with his caregivers performing CGA, however pt will occasionally need assistance with placement of his left UE and LE due to neglect. Pt's biggest complaint at the moment is leg pain, his reports they have tried PT, Massage, CBD il, Tylenol, Oxycodine, and Gabapentin, all with minimal benefit. Prior to CVA, pt was fully independent in all activities. Pt and have garegivers 8 hrs a day for assistance. Prior Treatments and Tests Craniotomy 04/16/19, Acute rehab, Skull fragment replacement 06/26/19, home health PT Prior Functional Status Baseline Function- ADL's Independent Baseline Function- Mobility Independent PT-OP-C Subjective Start: 09/17/19 18:00 Freq: Status: Active Protocol: Document 10/31/21 14:30 DCW (Rec: 10/31/21 15:56 DCW [id number]) OP-PT Subjective Patient Comments Patient Comments Pt feeling good today, enjoys his brief break from PT PT-OP-D Balance Start: 08/04/20 14:14 Freq: Status: Active Protocol: Document 08/04/21 16:50 DCW (Rec: 08/04/21 17:40 DCW [id number]) Balance Tests Adler Balance Test Adler Balance Test Score 51/56 Adler Impairment Rating 1 to 19% Impaired (Score 45-55 ) Adler Balance Assessment Evaluation Sitting to Standing Ability Independent w/out Hands Unsupported Stance Safely- 2 minutes Sitting Unsupported, Feet on Floor Safely- 2 minutes Standing to Sitting Ability Safely, Minimal Hand Use Transfer Ability Safely, Minimal Hand Use Unsupported Stance- Eyes Closed Safely, 10 seconds Unsupported Stance- Eyes Open Independent, 1 minute Reaching Forward Standing Confidently, 10 inches Pick- Up Object From Floor Independent/Safe Look Behind Shoulder - Standing Shifts Weight Well Turning 360 Degrees Turns , < 4 secs Unsupported Stance, Alternating Feet on (I)- 8 Steps in 20 secs Stair Unsupported Tandem Stance Holds Tandem- 30 seconds Unilateral Leg Stance Lifts Leg/Unable to Hold Total Score Adler Total Score (out of 56 points) 51 Adler Impairment Rating 1 to 19% Impaired (Score 45-55 ) PT-OP-E Functional Tests Start: 05/04/20 15:15 Freq: Status: Active Protocol: Document 08/04/21 16:50 DCW (Rec: 08/04/21 17:40 DCW [id number]) Functional Tests 6 Minute Walk Test Distance 1228' Device Used none Comments 3.41 ft/sec PT-OP-G Mobility & Gait Start: 09/17/19 18:00 Freq: Status: Active Protocol: Document 08/04/21 16:50 DCW (Rec: 08/04/21 17:40 DCW [id number]) OP Gait Assessment Gait Gait Assistance Required: Standby Assistance Distance (Feet) 1,228 Assistive Devices Assistive Device None Gait Deviations General Gait Pattern Antalgic,Ataxic,Flexed Trunk Factors Limiting Gait Function Factors Limiting Gait Function Abnormal Tonal Influences, Decreased Activity Tolerance, Decreased Sensation,Poor Safety Awareness,Respiratory Distress Stair Climbing Evaluation Evaluation Level of Assist On Stairs Standby Assistance Devices Stair Climbing Assistive Devices Right Railing Technique/Endurance Stair Climbing Direction Ascend and Descend Stair Climbing Technique Step Over Step Number of Steps Climbed 4 PT-OP-H Neuro Start: 09/17/19 18:00 Freq: Status: Active Protocol: Document 04/28/21 11:15 DCW (Rec: 04/28/21 11:58 DCW [id number]) Deep Tendon Reflex & Clonus Assessment Deep Tendon Reflex Left Achilles Deep Tendon Reflex 2+ Normal Left Patellar Deep Tendon Reflex 2+ Normal Ankle Clonus Left Clonus Assessment Sustained Muscle Tone Tone Assessment Left Lower Extremity Flexor Tone Description Mild Hypotonicity PT-OP-M Strength Start: 09/17/19 18:00 Freq: Status: Active Protocol: Document 04/28/21 11:15 DCW (Rec: 04/28/21 11:58 DCW [id number]) Hip Strength Hip Manual Muscle Testing Left Flexion (L2) 4+ Good+ Extension (S1) 5 Normal Abduction 4 Good Adduction 5 Normal External Rotation 4 Good Internal Rotation 4 Good Knee Strength Knee Manual Muscle Testing Left Flexion (S2) 4 Good Extension (L3) 5 Normal Ankle/Foot Strength Ankle and Foot Manual Muscle Testing Left Dorsiflexion (L4) 5 Normal Plantarflexion (S1) 4 Good Inversion 4 Good Eversion (S1) 4 Good PT-OP-Q Treatments Start: 09/17/19 18:00 Freq: Status: Active Protocol: Document 10/31/21 14:30 DCW (Rec: 10/31/21 15:56 DCW [id number]) Gait Training Gait Activity No AD Description No AD Device Used None Level of Assistance SBA Distance/Duration 950' Comments VCs to promote heel-toe gait, extend left knee during stance phase Neuro Re-Education Treatment Other Activities 1 Details Vision exercise Comments Vertical line down middle of horizontal 22 lines: 14 within 1/4 of center, 1 double lines PENA chart Details PENA chart reading Comments Focus on saccadic movements PT-OP-R Modalities Start: 09/17/19 18:00 Freq: Status: Active Protocol: Document 07/27/21 13:45 DCW (Rec: 07/27/21 14:29 DCW [id number]) Electric Stimulation Electric Stimulation Interferential Current (IFC) Body Location L ant ankle Duration (Minutes) 15 Patient Position Sitting Combined With Heat/Cold Cold Pack PT-OP-S Aquatic Treatment Start: 09/17/19 18:00 Freq: Status: Active Protocol: Document 01/30/20 12:30 LJ (Rec: 01/30/20 14:54 LJ [id number]) Aquatics Treatment Pool Entry/Exit Pool Entry/Exit Method Lift Assistance Minimal Assistance Water Walking Slow motion Water Level Chest Level Walking Equipment wet vest, UE float, #2.5 ankle wt Level of Assistance Standby Assistance,Contact Guard Assistance,Moderate Assistance Comments emphasis on LLE extension stance phase January Water Level Chest Level Walking Equipment wet vest, UE float, #2.5 ankle wt Level of Assistance Standby Assistance,Contact Guard Assistance,Moderate Assistance,Verbal Cues Forward with emphasis on reciprocal gait pattern Water Level Chest Level Level of Assistance Standby Assistance,Contact Guard Assistance,Minimal Assistance,Verbal Cues Comments wetvest, sm float on LUE, #3. 75 ankle wt on LLE start stop walking forward and backward Water Level Chest Level Walking Equipment vest Level of Assistance Contact Guard Assistance, Verbal Cues Comments wetvest, sm float on LUE, #3. 75 ankle wt on LLE Sideways Water Level Chest Level Walking Equipment wet vest, UE float, #2.5 ankle wt Level of Assistance Standby Assistance,Contact Guard Assistance,Minimal Assistance,Verbal Cues Lower Extremity Exercises SL aquats Details HH on wall Body Position Standing Water Level Waist Level Equipment wetvest Reps/Duration 2x10 LLE Comments VC to extend knee knee extensions Details seated in lift chair Equipment Ankle Weight- 5.0# Reps/Duration 20 B Comments seated in lift SLS Details bracing LLE Body Position Standing Water Level Chest Level Equipment vest Reps/Duration 1 min marching at wall Water Level Chest Level Reps/Duration 2 min Comments opposite UE/LE tapping wall squats Body Position Standing Water Level Chest Level Reps/Duration 20x Lower Extremity Stretches adductors Comments seated in chair Gastroc Body Position Sitting Reps/Duration 2 x 45 sec B Comments manual assist hip flexors Details at wall Body Position Standing Water Level Waist Level Reps/Duration 2x45 Comments manually assisted HS Details at wall Body Position Sitting Water Level Waist Level Equipment wet vest Reps/Duration 2x45 Comments sitting in lift chair assisted Upper Extremity Exercises breastroke UE's Body Position Standing Water Level Chest Level Reps/Duration 3 min Comments during walking and deep water hor ab/ad Water Level Chest Level Comments during side walking, CGA Balance step ups Details step ups/down using boxes Body Position Standing Water Level Waist Level Equipment 8 boxes Comments mod verbal cues for coordination [place] Activities [place] Activities Bicycle,Cross Country Equipment wet vest, white noodle Duration 7 min Comments Guy and cues for vertical alignmernt. PT-OP-T Assessment and Plan Start: 09/17/19 18:00 Freq: Status: Active Protocol: Document 10/31/21 14:30 DCW (Rec: 10/31/21 15:56 DCW [id number]) Physical Therapy Assessment Impairments Impairments Activity Tolerance,Balance, Coordination,Functional Activities,Functional Mobility ,Gait,Pain,ROM,Sensation, Strength,Tone,Transfers Goals Six Impairment Decreased Static Balance Short Term Goal (STG) Pt to score <9 seconds on TUG STG Duration Met Care Home Goal (LTG) NEW GOAL: Pt to score 53/56 on Adler Balance Scale LTG Duration 10/04/21 - Improving, 51/56 Five Impairment Pt uses R rail and step-over gait pattern ascending stairs Vice President Of Business Development Goal (LTG) Pt to ascend/descend stairs independently without use of rail LTG Duration 10/04/21 - Improving Four Impairment Pt demonstrates strength impairment throughout left LE Care Home Goal (LTG) Pt to display MMT >3+/5 through L LE LTG Duration Met Three Impairment Pt SBA for transfers and bed mobility d/t Left Neglect [employer] Goal (LTG) Pt to demonstrate independent transfers and bed mobility with an ability to address left LE and UE 80% of the time LTG Duration Met Two Impairment Pt ambulates 280' CGA /s an AD Short Term Goal (STG) Pt to ambulate 400' SBA independently STG Duration Met [employer] Goal (LTG) Pt to ambulate 800' during 6 MWT Independently without SBA LTG Duration 11/03/21 - Improving (1408' SBA) One Impairment Pt does not have an appropriate home exercise program Short Term Goal (STG) Pt to be independent and compliant with an appropriate HEP STG Duration Met Assessment Summary Assessment Pt doing fairly well overall, will undergo reassessment next visit. Pt may be approaching progress plateau, discussed this with him today to help prepare him for possibility Physical Therapy Plan Frequency and Duration Frequency of Treatment 1-2x/wk Duration of Treatment 3 months Plan of Care Start Date 08/04/21 Plan of Care End Date 11/03/21 Therapeutic Interventions Therapeutic Interventions Aquatic Therapy,Balance Training,Coordination Training ,Gait Training,Home Exercise Program,Manual Therapy, Neuromuscular Re-education, Patient/Caregiver Education, Self-Care/Home Management, Therapeutic Activities, Therapeutic Exercises Modalities Cold Pack/Ice Massage,Electric Stimulation,Hot Packs, Ultrasound Next Visit Focus/Plan Next Note Type Progress Note Next Visit Plan SLS, visual scanning, increased activity tolerance
--- NOTE | 2021-11-07 12:39 | PT.OTN ---
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) Physical Therapy Treatment Note PT-OP-A Visit Information Start: 09/17/19 18:00 Freq: Status: Active Protocol: Document 11/07/21 12:05 DCW (Rec: 11/07/21 12:39 DCW [id number]) Out-Patient Physical Therapy Visit Information Visit Information Visit Type Discharge Summary Visit Start Time 12:05 Visit Stop Time 12:30 Total Visit Minutes 25 Visit Number 142 Number of CLIENT RELATIONS SPECIALIST Visits 0 Evaluation Information Evaluation Date 09/17/19 PT-OP-B Current Condition Start: 09/17/19 18:00 Freq: Status: Active Protocol: Document 09/17/19 12:00 DCW (Rec: 09/18/19 10:29 DCW [id number]) Current Condition History of Current Condition Onset Date 04/14/19 Current Complaints Hemiparesis secondary to CVA History of Current Condition Pt is a 69 year old male presenting to skilled outpatient physical therapy with left-side neglect, hemiparesis, loss of independence, and difficulty walking following an intraparenchymal hemorrhage on 04/14/19. Pt was transferred from [facility] to [facility], where a craniotomy was performed on 04/16/19. Pt completed 7 weeks of rehab/ recovery at [facility], and then underwent a second surgery on 06/26/19 to replace the skull fragment. Pt was then at an acute rehab facility 06/30-07/18/19, and since then has been receiving home health physical therapy. Pt presents today with limited left-sided function, left visual and physical neglect, difficulty with transfers, decreased activity tolerance, decreased gait, and many other secondary effects following his CVA. Pt has been working on ambulation with a vale walker with home health, and his states he has walked around 100' a few times, but always with a therapist, as she does not feel comfortable walking with him yet. Pt exclusively gets around at time of evaluation in a manual wheelchair. Pt's transfers have been going fairly well, with his caregivers performing CGA, however pt will occasionally need assistance with placement of his left UE and LE due to neglect. Pt's biggest complaint at the moment is leg pain, his reports they have tried PT, Massage, CBD il, Tylenol, Oxycodine, and Gabapentin, all with minimal benefit. Prior to CVA, pt was fully independent in all activities. Pt and have garegivers 8 hrs a day for assistance. Prior Treatments and Tests Craniotomy 04/16/19, Acute rehab, Skull fragment replacement 06/26/19, home health PT Prior Functional Status Baseline Function- ADL's Independent Baseline Function- Mobility Independent PT-OP-C Subjective Start: 09/17/19 18:00 Freq: Status: Active Protocol: Document 11/07/21 12:05 DCW (Rec: 11/07/21 12:39 DCW [id number]) OP-PT Subjective Patient Comments Patient Comments Pt very happy with his overall progress, is sad to be discharging, but understands he has reached a progress plateau. PT-OP-D Balance Start: 08/04/20 14:14 Freq: Status: Active Protocol: Document 08/04/21 16:50 DCW (Rec: 08/04/21 17:40 DCW [id number]) Balance Tests Adler Balance Test Adler Balance Test Score 51/56 Adler Impairment Rating 1 to 19% Impaired (Score 45-55 ) Adler Balance Assessment Evaluation Sitting to Standing Ability Independent w/out Hands Unsupported Stance Safely- 2 minutes Sitting Unsupported, Feet on Floor Safely- 2 minutes Standing to Sitting Ability Safely, Minimal Hand Use Transfer Ability Safely, Minimal Hand Use Unsupported Stance- Eyes Closed Safely, 10 seconds Unsupported Stance- Eyes Open Independent, 1 minute Reaching Forward Standing Confidently, 10 inches Pick- Up Object From Floor Independent/Safe Look Behind Shoulder - Standing Shifts Weight Well Turning 360 Degrees Turns , < 4 secs Unsupported Stance, Alternating Feet on (I)- 8 Steps in 20 secs Stair Unsupported Tandem Stance Holds Tandem- 30 seconds Unilateral Leg Stance Lifts Leg/Unable to Hold Total Score Adler Total Score (out of 56 points) 51 Adler Impairment Rating 1 to 19% Impaired (Score 45-55 ) PT-OP-E Functional Tests Start: 05/04/20 15:15 Freq: Status: Active Protocol: Document 08/04/21 16:50 DCW (Rec: 08/04/21 17:40 DCW [id number]) Functional Tests 6 Minute Walk Test Distance 1228' Device Used none Comments 3.41 ft/sec PT-OP-G Mobility & Gait Start: 09/17/19 18:00 Freq: Status: Active Protocol: Document 08/04/21 16:50 DCW (Rec: 08/04/21 17:40 DCW [id number]) OP Gait Assessment Gait Gait Assistance Required: Standby Assistance Distance (Feet) 1,228 Assistive Devices Assistive Device None Gait Deviations General Gait Pattern Antalgic,Ataxic,Flexed Trunk Factors Limiting Gait Function Factors Limiting Gait Function Abnormal Tonal Influences, Decreased Activity Tolerance, Decreased Sensation,Poor Safety Awareness,Respiratory Distress Stair Climbing Evaluation Evaluation Level of Assist On Stairs Standby Assistance Devices Stair Climbing Assistive Devices Right Railing Technique/Endurance Stair Climbing Direction Ascend and Descend Stair Climbing Technique Step Over Step Number of Steps Climbed 4 PT-OP-H Neuro Start: 09/17/19 18:00 Freq: Status: Active Protocol: Document 04/28/21 11:15 DCW (Rec: 04/28/21 11:58 DCW [id number]) Deep Tendon Reflex & Clonus Assessment Deep Tendon Reflex Left Achilles Deep Tendon Reflex 2+ Normal Left Patellar Deep Tendon Reflex 2+ Normal Ankle Clonus Left Clonus Assessment Sustained Muscle Tone Tone Assessment Left Lower Extremity Flexor Tone Description Mild Hypotonicity PT-OP-M Strength Start: 09/17/19 18:00 Freq: Status: Active Protocol: Document 04/28/21 11:15 DCW (Rec: 04/28/21 11:58 DCW [id number]) Hip Strength Hip Manual Muscle Testing Left Flexion (L2) 4+ Good+ Extension (S1) 5 Normal Abduction 4 Good Adduction 5 Normal External Rotation 4 Good Internal Rotation 4 Good Knee Strength Knee Manual Muscle Testing Left Flexion (S2) 4 Good Extension (L3) 5 Normal Ankle/Foot Strength Ankle and Foot Manual Muscle Testing Left Dorsiflexion (L4) 5 Normal Plantarflexion (S1) 4 Good Inversion 4 Good Eversion (S1) 4 Good PT-OP-Q Treatments Start: 09/17/19 18:00 Freq: Status: Active Protocol: Document 11/07/21 12:05 DCW (Rec: 11/07/21 12:39 DCW [id number]) Therapeutic Activity Therapeutic Activity 1 Comments HEP review, balance exercises, visual scanning PT-OP-R Modalities Start: 09/17/19 18:00 Freq: Status: Active Protocol: Document 07/27/21 13:45 DCW (Rec: 07/27/21 14:29 DCW [id number]) Electric Stimulation Electric Stimulation Interferential Current (IFC) Body Location L ant ankle Duration (Minutes) 15 Patient Position Sitting Combined With Heat/Cold Cold Pack PT-OP-S Aquatic Treatment Start: 09/17/19 18:00 Freq: Status: Active Protocol: Document 01/30/20 12:30 LJ (Rec: 01/30/20 14:54 LJ [id number]) Aquatics Treatment Pool Entry/Exit Pool Entry/Exit Method Lift Assistance Minimal Assistance Water Walking Slow motion Water Level Chest Level Walking Equipment wet vest, UE float, #2.5 ankle wt Level of Assistance Standby Assistance,Contact Guard Assistance,Moderate Assistance Comments emphasis on LLE extension stance phase [place] January Water Level Chest Level Walking Equipment wet vest, UE float, #2.5 ankle wt Level of Assistance Standby Assistance,Contact Guard Assistance,Moderate Assistance,Verbal Cues Forward with emphasis on reciprocal gait pattern Water Level Chest Level Level of Assistance Standby Assistance,Contact Guard Assistance,Minimal Assistance,Verbal Cues Comments wetvest, sm float on LUE, #3. 75 ankle wt on LLE start stop walking forward and backward Water Level Chest Level Walking Equipment vest Level of Assistance Contact Guard Assistance, Verbal Cues Comments wetvest, sm float on LUE, #3. 75 ankle wt on LLE Sideways Water Level Chest Level Walking Equipment wet vest, UE float, #2.5 ankle wt Level of Assistance Standby Assistance,Contact Guard Assistance,Minimal Assistance,Verbal Cues Lower Extremity Exercises SL aquats Details HH on wall Body Position Standing Water Level Waist Level Equipment wetvest Reps/Duration 2x10 LLE Comments VC to extend knee knee extensions Details seated in lift chair Equipment Ankle Weight- 5.0# Reps/Duration 20 B Comments seated in lift SLS Details bracing LLE Body Position Standing Water Level Chest Level Equipment vest Reps/Duration 1 min marching at wall Water Level Chest Level Reps/Duration 2 min Comments opposite UE/LE tapping wall squats Body Position Standing Water Level Chest Level Reps/Duration 20x Lower Extremity Stretches adductors Comments seated in chair Gastroc Body Position Sitting Reps/Duration 2 x 45 sec B Comments manual assist hip flexors Details at wall Body Position Standing Water Level Waist Level Reps/Duration 2x45 Comments manually assisted HS Details at wall Body Position Sitting Water Level Waist Level Equipment wet vest Reps/Duration 2x45 Comments sitting in lift chair assisted Upper Extremity Exercises breastroke UE's Body Position Standing Water Level Chest Level Reps/Duration 3 min Comments during walking and deep water hor ab/ad Water Level Chest Level Comments during side walking, CGA Balance step ups Details step ups/down using boxes Body Position Standing Water Level Waist Level Equipment 8 boxes Comments mod verbal cues for coordination Earle Activities Earle Activities Bicycle,Cross Country Equipment wet vest, white noodle Duration 7 min Comments Guy and cues for vertical alignmernt. PT-OP-T Assessment and Plan Start: 09/17/19 18:00 Freq: Status: Active Protocol: Document 11/07/21 12:05 DCW (Rec: 11/07/21 12:39 DCW [id number]) Physical Therapy Assessment Impairments Impairments Activity Tolerance,Balance, Coordination,Functional Activities,Functional Mobility ,Gait,Pain,ROM,Sensation, Strength,Tone,Transfers Goals Six Impairment Decreased Static Balance Short Term Goal (STG) Pt to score <9 seconds on TUG STG Duration Met Electronics Engineering Professor Goal (LTG) NEW GOAL: Pt to score 53/56 on Adler Balance Scale LTG Duration 10/04/21 - Improving, 51/56 Five Impairment Pt uses R rail and step-over gait pattern ascending stairs [facility] Goal (LTG) Pt to ascend/descend stairs independently without use of rail LTG Duration 10/04/21 - Improving Four Impairment Pt demonstrates strength impairment throughout left LE [facility] Goal (LTG) Pt to display MMT >3+/5 through L LE LTG Duration Met Three Impairment Pt SBA for transfers and bed mobility d/t Left Neglect Electronics Engineering Professor Goal (LTG) Pt to demonstrate independent transfers and bed mobility with an ability to address left LE and UE 80% of the time LTG Duration Met Two Impairment Pt ambulates 280' CGA /s an AD Short Term Goal (STG) Pt to ambulate 400' SBA independently STG Duration Met Electronics Engineering Professor Goal (LTG) Pt to ambulate 800' during 6 MWT Independently without SBA LTG Duration 11/03/21 - Improving (1408' SBA) One Impairment Pt does not have an appropriate home exercise program Short Term Goal (STG) Pt to be independent and compliant with an appropriate HEP STG Duration Met Assessment Summary Assessment Pt has reached progress plateau, appropriate for discharge at this time. Pt understands that with change in symptoms, he is able to return with a new referral. Physical Therapy Plan Frequency and Duration Frequency of Treatment 1x/Week Duration of Treatment 1 day Plan of Care Start Date 11/07/21 Plan of Care End Date 11/08/21 Therapeutic Interventions Therapeutic Interventions Aquatic Therapy,Balance Training,Coordination Training ,Gait Training,Home Exercise Program,Manual Therapy, Neuromuscular Re-education, Patient/Caregiver Education, Self-Care/Home Management, Therapeutic Activities, Therapeutic Exercises Modalities Cold Pack/Ice Massage,Electric Stimulation,Hot Packs, Ultrasound Discharge Physical Therapy Discharge Reasons Plateau in Progress Next Visit Focus/Plan Next Note Type Discharge Summary
--- NOTE | 2021-11-07 12:40 | PT.OPPOC ---
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) Visit Care Team Role Provider Type Yesy Cortes MD Attending Provider Physician Primary Care Provider Specialty: Internal Medicine Address: [address] [place] [address], [facility] Email: [email or web address] Plan Of Care PT-OP-T Assessment and Plan Start: 09/17/19 18:00 Freq: Status: Active Protocol: Document 11/07/21 12:05 DCW (Rec: 11/07/21 12:39 DCW [id number]) Physical Therapy Assessment Impairments Impairments Activity Tolerance,Balance, Coordination,Functional Activities,Functional Mobility ,Gait,Pain,ROM,Sensation, Strength,Tone,Transfers Goals Six Impairment Decreased Static Balance Short Term Goal (STG) Pt to score <9 seconds on TUG STG Duration Met Septic Tank Installer Goal (LTG) NEW GOAL: Pt to score 53/56 on Adler Balance Scale LTG Duration 10/04/21 - Improving, 51/56 Five Impairment Pt uses R rail and step-over gait pattern ascending stairs Septic Tank Installer Goal (LTG) Pt to ascend/descend stairs independently without use of rail LTG Duration 10/04/21 - Improving Four Impairment Pt demonstrates strength impairment throughout left LE [facility] Goal (LTG) Pt to display MMT >3+/5 through L LE LTG Duration Met Three Impairment Pt SBA for transfers and bed mobility d/t Left Neglect [facility] Goal (LTG) Pt to demonstrate independent transfers and bed mobility with an ability to address left LE and UE 80% of the time LTG Duration Met Two Impairment Pt ambulates 280' CGA /s an AD Short Term Goal (STG) Pt to ambulate 400' SBA independently STG Duration Met Prison Goal (LTG) Pt to ambulate 800' during 6 MWT Independently without SBA LTG Duration 11/03/21 - Improving (1408' SBA) One Impairment Pt does not have an appropriate home exercise program Short Term Goal (STG) Pt to be independent and compliant with an appropriate HEP STG Duration Met Assessment Summary Assessment Pt has reached progress plateau, appropriate for discharge at this time. Pt understands that with change in symptoms, he is able to return with a new referral. Physical Therapy Plan Frequency and Duration Frequency of Treatment 1x/Week Duration of Treatment 1 day Plan of Care Start Date 11/07/21 Plan of Care End Date 11/08/21 Therapeutic Interventions Therapeutic Interventions Aquatic Therapy,Balance Training,Coordination Training ,Gait Training,Home Exercise Program,Manual Therapy, Neuromuscular Re-education, Patient/Caregiver Education, Self-Care/Home Management, Therapeutic Activities, Therapeutic Exercises Modalities Cold Pack/Ice Massage,Electric Stimulation,Hot Packs, Ultrasound Discharge Physical Therapy Discharge Reasons Plateau in Progress Next Visit Focus/Plan Next Note Type Discharge Summary Plan of Care Dates Plan of Care Start Date 11/07/21 Plan of Care End Date 11/08/21 Electronically Signed by: Osbaldo Barrios, PT 11/07/21 2651 Please Sign and Return: I have reviewed this Plan of Care and certify that the skilled therapy services above are required to meet the patient?s needs. Physician Signature Date Printed Name and Credentials Clinical Instructor Signature Printed Name and Credentials
== END 2021-12-20 08:59 ==
LOC: PHYS 12:00
PROVIDERS: PCP Internal Medicine; Visit Provider Internal Medicine
DX: I61.9 Nontraumatic intracerebral hemorrhage, unspecified (principal); R26.89 Other abnormalities of gait and mobility; R29.3 Abnormal posture; R41.4 Neurologic neglect syndrome; I69.354 Hemiplegia and hemiparesis following cerebral infarction affecting left non-dominant side; M79.605 Pain in left leg; M79.662 Pain in left lower leg
CPT/HCPCS: 97010; 97014; 97032; 97110; 97112; 97113; 97116; 97140; 97163; 97530; 97535; G0283

== ENCOUNTER → 2021-12-01 14:19 | Outpatient (CLI) | payer MEDICARE, OTHER, SELFPAY ==
--- NOTE | 2021-12-01 14:21 | DI.MRI.S_ITS ---
PROCEDURE: MR LUMBAR SPINE WO CON INDICATIONS: Lumbar radiculopathy L5 pars defect TECHNIQUE: Noncontrast sagittal T1 spin echo and T2 fast echo, sagittal STIR, axial T1 and T2 fast spin echo through the lumbar spine. In cases with scoliosis, additional coronal T2 fast spin echo may be performed. COMPARISON: [facility], CR, XR LUMBAR SPINE 2-3V, 07/14/2021, 15:31. FINDINGS: Bilateral L5 pars defects with grade 2 spondylolisthesis of L5 on S1 measuring 8 mm. Mild discogenic marrow edema at the opposing L5-S1 endplates. Otherwise normal vertebral body height, alignment, and signal intensity. Normal position and appearance of the conus. Prevertebral and paraspinous soft tissues are normal. From T12-L1 through L4-L5 there is no spinal canal or neural foraminal stenosis. Mild facet osteoarthropathy L4-L5. At L5-S1, pseudo bulge related to the spondylolisthesis displaces the descending S1 nerve roots in both subarticular zones and contributes to severe bilateral neural foraminal narrowing with flattening/deformation of the exiting L5 nerve roots bilaterally. IMPRESSION: Grade 2 spondylolisthesis contributing to moderate subarticular zone stenosis and severe bilateral neural foraminal stenosis at L5-S1. Suspected impingement of the exiting L5 nerve roots. Correlate for any corresponding radicular symptoms. Dictated by: Gee Jones M.D. on 12/01/2021 at 15:33 Approved by: Gee Jones M.D. on 12/01/2021 at 15:39
== END ==
PROVIDERS: PCP Internal Medicine; Referring Provider Physical Medicine & Rehabilitation; Visit Provider Physical Medicine & Rehabilitation
DX: M43.17 Spondylolisthesis, lumbosacral region (principal); M48.07 Spinal stenosis, lumbosacral region
CPT/HCPCS: 72148

== ENCOUNTER → 2021-12-26 11:53 | Outpatient (CLI) | payer MEDICARE, OTHER, SELFPAY ==
[2021-12-26 13:20] LABS: COVID19 -Nasal RAPID Negative (Negative)
== END ==
PROVIDERS: PCP Internal Medicine; Visit Provider Physical Medicine & Rehabilitation
DX: Z20.822 Contact with and (suspected) exposure to COVID-19 (principal)
CPT/HCPCS: 87635; C9803

== ENCOUNTER 2021-12-27 13:39 | Outpatient (CLI) | payer MEDICARE, OTHER, SELFPAY ==
[2021-12-27] VITALS (8 sets, daily range): BP systolic 109–121; BP diastolic 61–85; PULSE 50–108; RESP 18–20; TEMP 35.9; O2SAT 94–97
--- NOTE | 2021-12-27 13:41 | DI.RAD.S_ITS ---
PROCEDURE: PAIN L INTERLAMINAR/CAUDAL INJ INDICATIONS: SPONDYLOSIS COMPARISON: [facility], MR, MR LUMBAR SPINE WO CON, 12/01/2021, 14:35. FINDINGS: Fluoroscopic spot filming was performed to verify placement of a spinal needle at the L5-S1 level, as labeled on the films. Appropriate location of the needle tip was confirmed by injection of iodinated contrast. IMPRESSION: No significant intraprocedural abnormality. Dictated by: Pradeep Zarco M.D. on 12/27/2021 at 14:12 Approved by: Pradeep Zarco M.D. on 12/27/2021 at 14:12
[2021-12-27] MEDS: MIDAZOLAM 5 MG/5 ML VIAL IV (14:23)
[2021-12-27] MEDS: BUPIVACAINE 0.25% (PF) VIAL 2 ML INJ (14:25)
[2021-12-27] MEDS: IOPAMIDOL 15 ML VIAL 3 ML INJ (14:26)
[2021-12-27] MEDS: BETAMETHASONE 30 MG/5 ML MDV 6 MG INJ (14:26)
[2021-12-27] MEDS: DEXAMETHASONE 10 MG/ML VIAL 20 MG INJ (14:26)
--- NOTE | 2021-12-27 14:39 | PM.PROC.IR.1 ---
Date/Time/Diagnoses Date of procedure: 12/27/21 Time of procedure: 14:40 Pre-procedure diagnosis: 1. HNP WITH RADICULAR FEATURES, 2. MULTILEVEL CENTRAL STENOSIS This procedure is found to meet the Governor's proclamation 20-24.2 regarding non urgent procedures. This patient meets multiple criteria for the procedure including continuing or worsening of significant or severe pain, combined with further deterioration of the patient's condition or overall health as well as delay in treatment would be expected to result in less positive ultimate medical outcome. Therefore the decision to perform the procedure in an outpatient hospital setting is found to be in accordance with guidelines of the proclamation. Post-procedure diagnosis: same Procedure Notes Procedure: 1. FLUOROSCOPICALLY GUIDED CONTRAST CONTROLLED INTERLAMINAR EPIDURAL STEROID INJECTION - L5/S1 Indications: Gerd is referred by Dr. Cortes for treatment of Bilateral Foraminal Stenosis L>R LE symptoms. Physician: Leon Maravilla Total Fluoroscopy time (seconds): 7 Total sedation minutes: 9 Complications: none Procedure in detail & Post-procedure care: FINDINGS Multilevel Central Spinal Stenosis with Nerve Root Compression DESCRIPTION OF PROCEDURE Fluoroscopically guided, contrast-controlled L5/S1 translaminar epidural steroid injection. Following review of allergy and review of potential side effects and complications, including, but not necessarily limited to, infection, allergic reaction, local tissue breakdown, temporary as well as permanent nerve injury, paralysis, stroke and possible , the patient indicated that the patient understood and agreed to proceed. An informed consent document was signed by the patient, witnessed by a nurse, and placed in the patient's chart. Additionally, other treatment options including modalities, medications, and physical therapy were reviewed with the patient. After review of previous anaesthesic history and IV conscious sedation the patient was deemed safe to proceed with today?s procedure with IV conscious sedation as ASA class II designation. Safety time-out was performed to confirm patient ID, procedure to be performed and site of procedure. IV sedation was accomplished with a combination of 1mg of Versed administered by the RN after DO order, titrated to patient comfort during the course of the procedure while the patient remained responsive to all verbal commands. In the prone position, following sterile prep and drape of the lumbar region, the L5/S1 translaminar space was identified fluoroscopically. The skin was anesthetized via a 25-gauge, 1.5-inch needle with 1% lidocaine solution. At this point, a 22-gauge short bevel spinal needle was atraumatically introduced and advanced under fluoroscopic guidance into the region of the L5/S1 translaminar space. Depth was confirmed on lateral view. Radiological data, including multiple fluoroscopic views of the lumbar spine, reveal a spinal needle at the L5/S1 translaminar space. Lateral views then show placement of the needle in the epidural space. Subsequent views show contrast material flowing superiorly and inferiorly in the epidural space. No vascular or intrathecal uptake is observed. At this point, using loss of resistance technique with saline and air, the epidural space was entered. This was confirmed following negative aspiration with injection of approximately 1.5cc of Isovue 200, showing excellent epidural flow without vascular or intrathecal uptake. At this point, 1 cc of 1% lidocaine solution combined with 3cc or 20mg of dexamethasone and 6mg of betamethasone was injected without incident. The patent tolerated the procedure without signs of symptoms of complications prior to transfer to the recovery area for further monitoring. The patient was then transferred to the recovery area where they were observed for an appropriate period of time after the injection. The patient reported a VAS score of 6 prior to the procedure and a post-procedure VAS of 0. POST OP INSTRUCTIONS The patient was provided a Pain Log to continue to record their response to the target-specific procedure prior to follow-up visit with their referring physician. Additionally, specific post-injection care instructions and a contact number to our office were provided if concerns arise regarding possible complications associated with the procedure are suspected.
== END 2021-12-27 15:00 | disposition home or self-care (01) ==
PROVIDERS: PCP Internal Medicine; Referring Provider Physical Medicine & Rehabilitation; Visit Provider Physical Medicine & Rehabilitation
DX: M51.17 Intervertebral disc disorders with radiculopathy, lumbosacral region (principal); M48.07 Spinal stenosis, lumbosacral region
CPT/HCPCS: 62323; J0702; J1100; J2250; J3010

== ENCOUNTER → 2022-02-16 12:39 | Outpatient (CLI) | payer MEDICARE, OTHER, SELFPAY ==
[2022-02-16 13:34] LABS: COVID19 -Nasal RAPID Negative (Negative)
== END ==
PROVIDERS: PCP Internal Medicine; Referring Provider Internal Medicine; Visit Provider Internal Medicine
DX: Z20.822 Contact with and (suspected) exposure to COVID-19 (principal)
CPT/HCPCS: 87635; C9803

== ENCOUNTER → 2022-02-16 12:41 | Outpatient (CLI) | payer MEDICARE, OTHER, SELFPAY ==
--- NOTE | 2022-02-22 10:04 | PM.PFT.1 ---
Pulmonary Function Test Referral & Results Date Patient Seen: 02/16/22 Requesting provider: Truman Carrillo Results: The spirometry demonstrates an FVC of 3.42 L which is 80% of predicted. The FEV1 was measured at 2.53 L which is 80% of predicted. The FEV1/FVC ratio was 74 which is 99% of predicted. Following the administration of bronchodilator there was no appreciable change. Lung volumes show an SVC of 4.20 L which is 94% of predicted. The diffusing capacity was measured at 20.27 which is 65% of predicted. No hemoglobin value was provided, so no correction for potential anemia could be made, if appropriate. The maximum voluntary ventilation was reduced Interpretation: This study demonstrates perhaps very mild obstructive lung disease based on reduction FEV1. However FEV1/FVC ratio is preserved. Lung volumes are normal so no evidence of restrictive lung disease There is mild reduction diffusing capacity suggesting an element of disease the capillary alveolar level
== END ==
PROVIDERS: PCP Internal Medicine; Referring Provider Internal Medicine Critical Care Medicine; Visit Provider Internal Medicine Critical Care Medicine
DX: R06.00 Dyspnea, unspecified (principal); J98.09 Other diseases of bronchus, not elsewhere classified; Z87.891 Personal history of nicotine dependence; Z20.822 Contact with and (suspected) exposure to COVID-19
CPT/HCPCS: 87635; 94060; 94726; 94729; C9803

== ENCOUNTER → 2022-03-20 14:19 | Outpatient (CLI) | payer MEDICARE, OTHER, SELFPAY ==
[2022-03-20 15:15] LABS: COVID19 -Nasal RAPID Negative (Negative)
== END ==
PROVIDERS: PCP Internal Medicine; Visit Provider Physical Medicine & Rehabilitation
DX: Z20.822 Contact with and (suspected) exposure to COVID-19 (principal); M47.816 Spondylosis without myelopathy or radiculopathy, lumbar region; R26.81 Unsteadiness on feet; M43.17 Spondylolisthesis, lumbosacral region; G47.33 Obstructive sleep apnea (adult) (pediatric); I61.9 Nontraumatic intracerebral hemorrhage, unspecified; I10 Essential (primary) hypertension
CPT/HCPCS: 87635; 99214

== ENCOUNTER 2022-03-21 09:47 | Outpatient (CLI) | payer MEDICARE, OTHER, SELFPAY ==
[2022-03-21] VITALS (9 sets, daily range): BP systolic 88–115; BP diastolic 52–70; PULSE 48–52; RESP 17–26; O2SAT 95–98
--- NOTE | 2022-03-21 09:49 | DI.RAD.S_ITS ---
PROCEDURE: PAIN L/S FACET INJ/BLK 1ST ADOLFO COMPARISON: None. INDICATIONS: SPONDYLOSIS FINDINGS: Several intraoperative fluoroscopic spot images of the lumbar spine demonstrate needles in the facet joints of L4-5 and L5-S1 bilaterally. Injection of contrast document position. IMPRESSION: Intraoperative fluoroscopy for bilateral L4-5 and L5-S1 facet joint injections. Dictated by: Blanche Osullivan M.D. on 03/21/2022 at 13:27 Approved by: Blanche Osullivan M.D. on 03/21/2022 at 13:31
[2022-03-21] MEDS: MIDAZOLAM 2 MG/2 ML VIAL IV (10:57)
[2022-03-21] MEDS: BETAMETHASONE 30 MG/5 ML MDV 12 MG INJ (11:02)
[2022-03-21] MEDS: BUPIVACAINE 0.5% (PF) VIAL 5 ML INJ (11:02)
[2022-03-21] MEDS: IOPAMIDOL 15 ML VIAL 3 ML INJ (11:03)
[2022-03-21] MEDS: LIDOCAINE 1% 20 ML (11:03)
--- NOTE | 2022-03-21 11:14 | P.PCN_ITS ---
Date/Time/Diagnoses Date of procedure: 03/21/22 Time of procedure: 11:14 Pre-procedure diagnosis: 1. FACET ARTHROPATHY 2. AXIAL LBP 3. MULTILEVEL DDD Post-procedure diagnosis: same Procedure Notes Procedure: 1. FLUOROSCOPICALLY GUIDED CONTRAST CONTROLLED FACET JOINT INJECTIONS BILATERAL L4/5, L5/S1 Indications: Gerd is referred by Dr. Cortes for treatment of Axial LBP Physician: Leon Maravilla Total Fluoroscopy time (seconds): 15 Total sedation minutes: 13 Complications: none Procedure in detail & Post-procedure care: FINDINGS Multilevel Facet Arthropathy with Clinically significant axial LBP DESCRIPTION OF PROCEDURE Fluoroscopically guided, contrast-controlled bilateral L4/5, L5/S1 facet joint injections. Following review of allergy and review of potential side effects and complications, including, but not necessarily limited to, infection, allergic reaction, local tissue breakdown, stroke, temporary or permanent nerve injury, paralysis, and possible , the patient indicated that the patient understood and agreed to proceed. An informed consent document was signed by the patient, witnessed by a nurse, and placed in the patient's chart. Additionally, other treatment options including medications, modalities, and physical therapy were reviewed with the patient. After review of previous anaesthesic history and IV conscious sedation the patient was deemed safe to proceed with today?s procedure with IV conscious sedation as ASA class II designation. Safety time-out was performed to confirm patient ID, procedure to be performed and site of procedure. IV sedation was accomplished with a combination of 1mg of Versed was administered by the RN after DO order, titrated to patient comfort during the course of the procedure while the patient remained responsive to all verbal commands In the prone position, following sterile prep and drape of the lumbar region, the posterior aspect of the L4/5, L5/S1 facet joints were identified fluoroscopically. The skin was anesthetized via a 25-gauge 1.5inch needle with 1% lidocaine solution into the corresponding facet joints. At this point, a 22- gauge 3.5-inch spinal needle was atraumatically introduced and advanced under fluoroscopic guidance into the corresponding facet joints. Following negative aspiration, injections of approximately 0.2cc of Isovue 200 confirmed interarticular placement without vascular uptake. The identical procedure was then performed at the L4/5, L5/S1 facet joints on the left. Radiological data, including multiple fluoroscopic views of the lumbosacral spine, reveal a spinal needle at the L4/5, L5/S1 facet joints bilaterally. Subsequent views show flow of contrast material both superiorly and inferiorly within the joint space without vascular or intrathecal uptake. At this point, a total of 0.5cc including a mixture of 0.25cc Marcaine and 0.25cc betamethasone was injected without complication into each of the corresponding facet joints. The patient tolerated the procedure well without signs or symptoms of complications prior to transfer to the recovery area continued monitoring without incident. The patient was then transferred to the recovery area where they were observed for an appropriate period of time after the injection. The patient reported a VAS score of 7 prior to the procedure and a post- procedure VAS of 0. POST OP INSTRUCTIONS The patient was provided a Pain Log to continue to record their response to the target-specific procedure prior to follow-up visit with their referring physician. Additionally, specific post-injection care instructions and a contact number to our office were provided if concerns arise regarding possible complications associated with the procedure are suspected.
== END 2022-03-21 11:40 | disposition home or self-care (01) ==
PROVIDERS: PCP Internal Medicine; Referring Provider Physical Medicine & Rehabilitation; Visit Provider Physical Medicine & Rehabilitation
DX: M47.816 Spondylosis without myelopathy or radiculopathy, lumbar region (principal); M47.817 Spondylosis without myelopathy or radiculopathy, lumbosacral region; M51.36 Other intervertebral disc degeneration, lumbar region; M51.37 Other intervertebral disc degeneration, lumbosacral region
CPT/HCPCS: 64493; 64494; 99152; J0702; J2250

== ENCOUNTER → 2022-05-23 14:51 | Outpatient (CLI) | payer MEDICARE, OTHER, SELFPAY ==
--- NOTE | 2022-05-23 | DI.US.S_ITS ---
PROCEDURE: US THYROID INDICATIONS: NODULES TECHNIQUE: Real-time scanning was performed of the thyroid gland, with image documentation. COMPARISON: [facility], [place], US FINE NEEDLE ASPIRATION, 08/20/2020, 14:10. [facility], [place], US THYROID, 06/24/2020, 16:47. FINDINGS: Right: Thyroid lobe measures 4.1 x 1.7 x 1.8 cm, contains a nodule. Left: Thyroid lobe measures 4.7 x 1.9 x 2.5 cm, and contains 2 nodules Isthmus: 4.5 mm thick. Nodule number: 1 Location: Right lower pole Size: 0.7 x 0.6 x 1.0 cm, previously 0.7 x 0.8 x 1.1 cm. Composition: Predominantly cystic Echogenicity: Hypoechoic Shape: Wider than tall Margins: Smooth Echogenic foci: None Total points: 2 ACR TI-RADS category: Not suspicious Nodule number: 2 Location: Left middle pole Size: 2.4 x 1.7 x 1.9 cm, previously 2.6 x 1.8 x 1.9 cm. Composition: Solid Echogenicity: Hypoechoic Shape: wider than tall. Margins: Smooth Echogenic foci: None Total points: 4 ACR TI-RADS category: Moderately suspicious Nodule number: 3 Location: Left lower pole Size: 0.8 x 0.6 x 0.9 cm, previously 1.5 x 0.8 x 0.9 c. Composition: Solid Echogenicity: Hypoechoic Shape: wider than tall. Margins: Smooth Echogenic foci: Punctate Total points: 7 ACR TI-RADS category: Highly suspicious IMPRESSION: 1. There are multiple thyroid nodules present. 2. In the left lip middle pole is a 2.4 cm maximum diameter moderately suspicious nodule. It is noted that the patient underwent a fine-needle aspiration of this nodule after the previous study. It is stable in size. Fine-needle aspiration is recommended if the previous biopsy was indeterminate. 3. Recommend routine screening follow-up in 1 year, please see chart below. ACR TI-RADS definitions and recommendations: TI-RADS 1 (benign): 0 points. FNA not needed. TI-RADS 2 (not suspicious): 2 points. FNA not needed. TI-RADS 3 (mildly suspicious): 3 points. * FNA if 2.5 cm or larger, follow up if 1.5 cm or larger (at 1, 3, and 5 years). TI-RADS 4 (moderately suspicious): 4-6 points. * FNA if 1.5 cm or larger, follow up if 1 cm or larger (at 1, 2, 3, and 5 years). TI-RADS 5 (highly suspicious): 7 points or more. * FNA if 1 cm or larger, follow up if 0.5 cm or larger (every year for 5 years). Dictated by: Vince Kern M.D. on 05/23/2022 at 17:07 Approved by: Vince Kern M.D. on 05/23/2022 at 17:14
== END ==
PROVIDERS: PCP Internal Medicine; Referring Provider Internal Medicine; Visit Provider Internal Medicine
DX: E04.2 Nontoxic multinodular goiter (principal)
CPT/HCPCS: 76536

== ENCOUNTER → 2022-07-04 14:13 | Outpatient (CLI) | payer MEDICARE, OTHER, SELFPAY ==
--- NOTE | 2022-07-04 | PATH_ITS ---
Note [facility] Accession Number: [id number] TESTS RESULT FLAG UNITS REF RANGE LAB Clinician Provided Cytology Information No. of containers..01 Other (Miscellaneous) No. of containers..02 Previously Prepared Cytology Slide Source: LEFT THYROID NODULE DIAGNOSIS: LEFT THYROID NODULE NEGATIVE FOR MALIGNANT CELLS. BETHESDA CATEGORY II. SPECIMEN CONSISTS OF SCANT BENIGN FOLLICULAR CELLS, COLLOID, AND BLOOD. THIS PATTERN IS CONSISTENT WITH A BENIGN FOLLICULAR NODULE. Pathologist ICD10: E04.2 Signed out by: Naye Gavin MD, Pathologist NPI- [id number] Performed by: Mohit Beard, Industrial Robotics Mechanic ([facility]) Gross description: 30 CC, PINK, CLEAR RECIEVED: IN CYTOLYT WITH 6 ALCOHOL FIXED AND 6 QUICK STAINED SLIDES ALSO 1 RNA VIAL WAS RECEIVED. /[facility] 07/05/2022 1137 [facility] FLAG LEGEND: L-Low Normal,H-High Normal,LL-Alert Low,HH-Alert High <-Panic Low,>-Panic High,A-Abnormal,AA-Critical Abnormal Performed at: 01 =Z [facility] [address], [place] [address] Gerson Wasserman MD, Performed at: 01 [facility] [address], [place], [place] [id number] MD Gerson Wasserman MD Phone: [phone]
--- NOTE | 2022-07-04 14:19 | DI.US.S_ITS ---
PROCEDURE: US FINE NEEDLE ASPIRATION INDICATIONS: NONTOXIC MULTINODULAR GOITER TECHNIQUE: The indications, alternatives, benefits, risks, and complications of the procedure were explained to the patient. Written informed consent was obtained and placed in the chart. The area of interest was examined sonographically and a site was chosen for ultrasound guided percutaneous sampling. The skin was prepared and draped in the usual fashion, and anesthetized with 1% lidocaine infiltrated from the skin down to the lesion. Multiple passes were then performed, with contents emptied into an appropriate pathology specimen container. A bandage was applied to the area of access at completion of the study. COMPARISON: [facility], US FINE NEEDLE ASPIRATION, 08/20/2020, 14:10. FINDINGS: Location(s) of lesion(s) sampled: Midpole left thyroid lobe nodule Mason: 25 gauge hypodermic needles. Number of passes: 6 Medications: 1% lidocaine for local anaesthesia. Complications: None. IMPRESSION: Successful ultrasound-guided left thyroid nodule fine needle aspiration, with cytology results pending. Dictated by: Lonny Ernst M.D. on 07/04/2022 at 15:55 Approved by: Lonny Ernst M.D. on 07/04/2022 at 15:55
== END ==
PROVIDERS: PCP Internal Medicine; Referring Provider Internal Medicine; Visit Provider Internal Medicine
DX: E04.1 Nontoxic single thyroid nodule (principal)
CPT/HCPCS: 10005

== ENCOUNTER → 2022-07-14 11:08 | Outpatient (CLI) | payer MEDICARE, OTHER, SELFPAY ==
[2022-07-14 13:17] LABS: COVID19 -Nasal RAPID Negative (Negative)
== END ==
PROVIDERS: PCP Internal Medicine; Visit Provider Surgery
DX: Z20.822 Contact with and (suspected) exposure to COVID-19 (principal); Z01.812 Encounter for preprocedural laboratory examination
CPT/HCPCS: 87635; C9803

== ENCOUNTER 2022-07-17 11:15 | Day surgery (SDC) | payer MEDICARE, OTHER, SELFPAY ==
--- NOTE | 2022-07-17 | PATH_ITS ---
[facility] Accession Number: [id number] . 01 Material submitted: . gastrointestinal site - ANTRUM BIOPSY . 01 Clinical history: . EGD . 01 Diagnosis: Designated Antrum, Biopsy: Specialized intestinal metaplasia, consistent with Nergo's esophagus. Please see comment. Negative for dysplasia and malignancy. V 07/19/2022 1016 Local . 01 Comment: Specimen was received designated antrum biopsy; however, per the endoscopic report, biopsies were only taken from the gastroesophageal junction. . 01 Electronically signed: . Kelley Robledo MD, Pathologist NPI- [id number] . 01 Gross description: . ANTRUM BIOPSY: Received in formalin are 3 fragment(s) of hercules, soft tissue measuring 0.4 x 0.2 x 0.1 cm to 0.2 x 0.2 x 0.2 cm submitted entirely in 1 cassette(s) /CPE 07/18/2022 0528 Local . 01 Pathologist provided ICD-10: K22.70 . 01 CPT . 922759 Specimen Comment: A courtesy copy of this report has been sent to [phone] Performed at: 01 [facility] [address] [place] [address], [place], [place] [id number] MD Gerson Wasserman MD Phone: [phone]
[2022-07-17 11:42] VITALS: BMI 29.6
[2022-07-17 11:51] VITALS: BP 123/76; PULSE 56; RESP 18; TEMP 36.1; O2SAT 96
[2022-07-17] MEDS: SODIUM CHLORIDE 0.9% 1,000 ML 84 ML IV (12:02)
--- NOTE | 2022-07-17 13:42 | PM.HP.1 ---
History of Present Illness History of Present Illness Date Patient Seen: 07/17/22 Time Patient Seen: 13:42 Chief complaint: EGD Narrative: Barretts Patient History Medical History Arthritis Negro esophagus Essential hypertension Facet arthropathy, lumbar Fibromyalgia Gait instability Hyperlipidemia Hyperlipidemia Hypertension Non-seasonal allergic rhinitis Obesity (BMI 30-39.9) Obstructive sleep apnea, adult (~06/2021) Smoking Snoring Spondylolisthesis at L5-S1 level Stroke due to intracerebral hemorrhage Surgical History History of cholecystectomy (~1979) History of hernia repair (~2005) History of varicose vein stripping (~1995) Hx of appendectomy (~1967) Hx of brain surgery Family & Social History Social History: household members spouse Tobacco & Substance use: Tobacco type cigarettes Smoking Status Former smoker alcohol intake current alcohol intake frequency 0-2 drinks per day Substance Use Type does not use Meds Home Medications and Allergies Home Medications Medication Instructions Recorded Confirmed Type omeprazole magnesium 20 mg 40 mg PO DAILY 04/14/19 07/17/22 History tablet,delayed release (Prilosec OTC) cyclobenzaprine 10 mg tablet 10 mg PO BEDTIME 01/23/20 07/17/22 History losartan 50 mg tablet 50 mg PO BID 01/23/20 07/17/22 History sennosides 8.6 mg tablet (senna) 8.6 mg PO BEDTIME PRN Constipation 08/03/21 07/17/22 History acetaminophen 500 mg tablet 1,000 mg PO DAILY pain 11/28/21 07/17/22 History azelastine 137 mcg (0.1 %) nasal 2 spray intranasal BID 11/28/21 07/17/22 History spray aerosol calcium carbonate 200 mg calcium 200 mg PO BID 11/28/21 07/17/22 History (500 mg) chewable tablet (Tums) cholecalciferol (vitamin D3) 50 100 mcg PO DAILY 11/28/21 07/17/22 History mcg (2,000 unit) capsule docusate calcium 240 mg capsule 240 mg PO DAILY PRN Constipation 11/28/21 07/17/22 History famotidine 20 mg tablet (Acid 20 mg PO DAILY PRN Indigestion 11/28/21 07/17/22 History Printing Film Stripper (famotidine)) fexofenadine 180 mg tablet 180 mg PO DAILY PRN Allergic 11/28/21 07/17/22 History (Mayra Allergy) Symptoms fluticasone propionate 50 2 spray intranasal DAILY 11/28/21 07/17/22 History mcg/actuation nasal spray,suspension (Flonase Allergy Relief) gabapentin 300 mg capsule 300 mg PO TID PRN Pain, Moderate 11/28/21 07/17/22 History levocetirizine 5 mg tablet (Xyzal) 5 mg PO QPM PRN Allergy Symptoms 11/28/21 07/17/22 History metoprolol succinate 25 mg capsule 25 mg PO DAILY 11/28/21 07/17/22 History sprinkle, ext. release 24 hr (Kapspargo Sprinkle) mometasone 0.1 % topical solution 1 applic topical BID PRN Ear Wax 11/28/21 07/17/22 History oxycodone 5 mg tablet 5 mg PO DAILY PRN Pain, Moderate 11/28/21 07/17/22 History tramadol 50 mg tablet 50 mg PO Q6H PRN Pain (Scale Score 11/28/21 07/17/22 History 7-10) potassium citrate 250 100 ml PO PRN Hypokalemia 05/10/22 07/12/22 History pseudoephedrine HCl [Sudafed] 1 tab PO PRN Allergy Symptoms 05/10/22 07/12/22 History rosuvastatin 20 mg tablet 20 mg PO DAILY 05/10/22 07/17/22 History sildenafil 50 mg tablet 50 mg PO DAILY PRN Sexual Activity 05/10/22 07/17/22 History albuterol sulfate 90 mcg/actuation 2 puff inhalation .PRN 07/12/22 07/17/22 History aerosol inhaler Allergies Allergy/AdvReac Type Severity Reaction Status Date / Time amoxicillin Allergy Unknown Nausea Verified 07/17/22 11:41 aspirin AdvReac Verified 07/17/22 11:41 NSAIDS (Non-Steroidal AdvReac Verified 07/17/22 11:41 Anti-Inflamma Review of Systems Review of Systems ROS: Yes All systems reviewed with the patient and are negative except as otherwise documented Exam Vital Signs (past 8 hours): - 07/17/22 11:51 Temperature 97 F L Pulse Rate 56 L Respiratory Rate 18 Blood Pressure 123/76 Pulse Oximetry 96 Oxygen Delivery Method Room Air Oxygen Delivery Method Room Air Const General: cooperative HENMT Head: normal to inspection Eyes General: appearance normal, both eyes and all related structures Neck Neck: normal visual inspection Chest Chest: normal inspection of the chest Resp Effort & Inspection: normal respiratory effort Cardio Rate: regular rate GI Inspection: normal to inspection Skin General: no rashes or lesions noted Neuro General: patient alert and patient awake Extrem General: normal to inspection and no pedal edema Psych Appearance: grossly normal Assessment & Plan Assessment & Plan narrative: 72-year-old male with a history of Barretts. He is scheduled for surveillance today at the request of his primary provider. EGD is planned Time Spent With Patient Critical Care time: I spent a total of [] minutes of critical care time on this patient's care today; this time is exclusive of procedural time.
--- NOTE | 2022-07-17 13:44 | PM.PREOP ---
Pre-operative Note COVID-19 COVID-19 status: Negative Result date/Date tested (Pos, Neg/Pending): 07/14/22 Criteria for continued procedure: Possibility delay results in more complex future surgery or treatment Interval Note History & Physical reviewed/Exam performed by Physician: Yes Changes to H&P: No ASA Class (for procedural sedation): III
--- NOTE | 2022-07-17 14:14 | PM.OP.EGD ---
Operative Date/Time/Diagnoses Date of procedure: 07/17/22 Time of procedure: 14:14 Pre-op diagnosis: Barretts Post-op diagnosis: same Procedure & Clinicians Study performed: EGD with biopsies Same procedure as scheduled: Yes Indications: Barretts Surgeon: Yunior Beal Procedure Notes SCOAP/Timeout: Done Procedure in detail: After the risks and benefits were explained, written and verbal informed consent was obtained. The patient was brought into the procedure room and placed into the left lateral decubitus position. Please see nurse test engine evaluator notes for sedation details. The scope was introduced into the mouth through the bite block and advanced under direct visualization to the 2nd portion of the duodenum. The scope was slowly withdrawn carefully examining the mucosa for any defects or lesions. Retroflexed views were accomplished in the stomach. The stomach was decompressed, the scope was then removed from the patient who tolerated the procedure well. Sedation minutes: 11 Complications: none Impression: 1. Duodenum: No significant pathology from the bulb through to the 2nd portion. 2. Stomach: No significant pathology appreciated throughout. Retroflexed views disclosed hiatal hernia 3. Esophagus: There was a subtle sliding hiatal hernia noted. The squamocolumnar junction extended up from the top of the gastric folds by perhaps half a cm circumferentially. Four biopsies were taken from the GE junction considering the prior diagnosis of Barretts. There was no evidence of any esophagitis no stricturing no ulceration no nodularity. The patient had very dry mucous membranes and was quite clearly not producing a lot of saliva. There were some scattered small seeds and other debris in the esophagus that had cleared properly as a consequence. No obstructing pathology was identified. Endoscopic diagnosis 1. Small sliding hiatal hernia 2. C 0.5 M 0.5 Barretts Post-procedure Plan for aftercare: 1. Await histopathology. 2. Continue anti-reflux therapy with Prilosec. 3. Consider repeat EGD in the years to come for symptoms only rather than routine scheduled surveillance. Disposition: PACU
[2022-07-17 14:22] VITALS: BP 116/71; BP 117/71; PULSE 55; PULSE 56; RESP 16; TEMP 36.6; O2SAT 94
[2022-07-17 14:32] VITALS: BP 132/74; PULSE 54; RESP 16; O2SAT 94
== END 2022-07-17 15:05 | disposition home or self-care (01) ==
PROVIDERS: PCP Internal Medicine; Referring Provider Internal Medicine Gastroenterology; Visit Provider Internal Medicine Gastroenterology
PROC: 0DJ08ZZ Inspection of Upper Intestinal Tract, Via Natural or Artificial Opening Endoscopic (ICD-10-PCS; CPT 43235; principal; 2022-07-17 14:00)
DX: K22.70 Barrett's esophagus without dysplasia (principal); K44.9 Diaphragmatic hernia without obstruction or gangrene; M79.7 Fibromyalgia; I10 Essential (primary) hypertension; E78.5 Hyperlipidemia, unspecified; E66.9 Obesity, unspecified; G47.33 Obstructive sleep apnea (adult) (pediatric); Z86.73 Personal history of transient ischemic attack (TIA), and cerebral infarction without residual deficits; Z87.891 Personal history of nicotine dependence
CPT/HCPCS: 43239; J2704

== ENCOUNTER → 2022-08-15 14:12 | Outpatient (CLI) | payer MEDICARE, OTHER, SELFPAY ==
--- NOTE | 2022-08-15 14:14 | DI.US.S_ITS ---
PROCEDURE: US ABD AORTA ANEURYSM SCREEN INDICATIONS: Other specified disorders of arteries TECHNIQUE: Real time scanning was performed of the aorta and iliac arteries, with image documentation. COMPARISON: [facility], , ABD AORTA ANEURYSM SCREEN, 07/26/2021, 15:00. FINDINGS: Aorta: Proximal aortic diameter measures 3.2 cm. Mid-aorta measures 2.9 cm. There is a mild aneurysm seen within the mid to distal abdominal aorta measuring 3 cm AP x 3 cm transversely, with a craniocaudal extent of 3.7 cm. Distal aortic diameter is 2.6 cm. Iliac arteries: Right common iliac artery measures 2.5 x 2.3 cm. Left common iliac artery measures 1 x 1.4 cm. Overall scan quality is limited, secondary to bowel gas. IMPRESSION: Mildly aneurysmal aorta, measuring 3.2 cm proximally and 3 cm within the mid to distal portion. 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 Seems like a risk factor seen like worse people worse things happen 2 to these cannot be Dictated by: Pradeep Zarco M.D. on 08/15/2022 at 14:34 Approved by: Pradeep Zarco M.D. on 08/15/2022 at 14:36
== END ==
PROVIDERS: PCP Internal Medicine; Referring Provider Internal Medicine; Visit Provider Internal Medicine
DX: I71.4 Abdominal aortic aneurysm, without rupture (principal); I77.89 Other specified disorders of arteries and arterioles
CPT/HCPCS: 76706

== ENCOUNTER 2022-09-26 09:52 | Outpatient (CLI) | payer MEDICARE, OTHER, SELFPAY ==
[2022-09-26 10:10] VITALS: BP 114/78; PULSE 52; RESP 14; TEMP 36.3; O2SAT 93
--- NOTE | 2022-09-26 13:34 | PC.NURSE ---
Patient and his Thelma had many questions regarding the procedure today. Dr. Maravilla, Mr. Nayak, and his decided that it would be best to postpone the procedure today until they could meet in clinic to discuss on 11/01/22 and then reschedule the injection if need be.
== END 2022-09-26 11:06 | disposition home or self-care (01) ==
LOC: RAD 09:54
PROVIDERS: PCP Internal Medicine; Referring Provider Physical Medicine & Rehabilitation; Visit Provider Physical Medicine & Rehabilitation
DX: M47.816 Spondylosis without myelopathy or radiculopathy, lumbar region (principal)

== ENCOUNTER 2023-05-01 13:09 | Outpatient (CLI) | payer MEDICARE, OTHER, SELFPAY ==
[2023-05-01] VITALS (9 sets, daily range): BP systolic 114–164; BP diastolic 59–83; PULSE 51–58; RESP 12–21; TEMP 36.1; O2SAT 94–96
--- NOTE | 2023-05-01 13:13 | DI.RAD.S_ITS ---
PROCEDURE: PAIN L/S FACET INJ/BLK 1ST ADOLFO COMPARISON: [facility], XA, PAIN L/S FACET INJ/BLK 1ST ADOLFO, 03/21/2022, 10:59. INDICATIONS: SPONDYLOSIS FINDINGS: Intraoperative fluoroscopic images shows spinal needle placed on right side of lower lumbar spine at L4, L5 and S1 levels. IMPRESSION: Fluoro guidance was provided intraoperatively for bilateral L4 through S1 medial branch block performed by the ordering physician. Dictated by: Lonny Ernst M.D. on 05/01/2023 at 16:31 Approved by: Lonny Ernst M.D. on 05/01/2023 at 16:32
[2023-05-01] MEDS: MIDAZOLAM 2 MG/2 ML VIAL IV (13:58)
[2023-05-01] MEDS: BUPIVACAINE 0.5% (PF) 10 ML VIAL 5 ML INJ (14:01)
[2023-05-01] MEDS: IOPAMIDOL 15 ML VIAL 3 ML INJ (14:01)
[2023-05-01] MEDS: LIDOCAINE 1% 20 ML 5 ML INJ (14:02)
--- NOTE | 2023-05-01 14:16 | PM.PROC.IR.1 ---
Date/Time/Diagnoses Date of procedure: 05/01/23 Time of procedure: 14:16 Pre-procedure diagnosis: 1. FACET ARTHROPATHY Post-procedure diagnosis: same Procedure Notes Procedure: 1. BILATERAL- L4, L5 and S1 DIAGNOSTIC MB BLOCKS with LA Anesthetic Indications: Gerd is referred by Dr. Cortes for treatment of Bilateral Axial LBP. Physician: Leon Maravilla Total Fluoroscopy time (seconds): 12 Total sedation minutes: 12 Complications: none Procedure in detail & Post-procedure care: DESCRIPTION OF PROCEDURE Fluoroscopically guided, contrast-controlled bilateral L4, L5 and S1 medial branch blocks with 0.5cc of 0.5% Marcaine. Following review of allergy and review of potential side effects and complications, including, but not necessarily limited to, infection, allergic reaction, local tissue breakdown, nerve injury, paralysis, stroke and possible , the patient indicated that the patient understood and agreed to proceed. An informed consent document was signed by the patient, witnessed by a nurse, and placed in the patient's chart. After review of previous anaesthesic history and IV conscious sedation the patient was deemed safe to proceed with today's procedure with IV conscious sedation as ASA class II designation. Safety time-out was performed to confirm patient ID, procedure to be performed and site of procedure. IV sedation was accomplished with a combination of 2mg of Versed was administered by the RN after DO order, titrated to patient comfort during the course of the procedure while the patient remained responsive to all verbal commands In the prone position, following sterile prep and drape of the lumbar region, the right L4, L5 and S1 anatomical location of the medial branch of the dorsal ramus was identified fluoroscopically. Subsequently an anesthetic skin wheal using 1% lidocaine solution was initiated at each of the anatomical spots. Subsequently then a 22-gauge 3.5-inch spinal needle was atraumatically introduced and advanced under fluoroscopic guidance at each of the corresponding sites at the right L4, L5 and S1 MB. After negative aspiration, 0.2cc of Isovue 200 was injected, confirming placement without vascular or intrathecal uptake. Subsequently then 0.5cc of 0.5% Marcaine solution was injected at each of the corresponding sites at the right L4, L5 and S1 medial branch locations. The identical procedure was replicated on the left. The patient tolerated the procedure well without signs or symptoms of complications prior to transfer to the recovery area continued monitoring without incident. Post-procedure, the patient was monitored initiating provocative activities to measure the amount of relief from block of the facetogenic pain. The patient reported a VAS of 7 prior to the procedure and a post-procedure VAS of 1. It has been a pleasure to assist in the diagnostic and therapeutic care of your patient. POST OP INSTRUCTIONS The patient was provided with a Pain Log to complete over the next several hours and subsequent days prior to the patient's follow up with the ordering physician. If the patient has junior linux systems administrator relief to the solution applied, then they may be a candidate for medial branch rhizotomy. The patient is aware, was provided, once again, with a Pain Log and will follow up with the referring physician for review and clinical correlation
== END 2023-05-01 14:38 | disposition home or self-care (01) ==
LOC: RAD 13:11
PROVIDERS: PCP Internal Medicine; Referring Provider Physical Medicine & Rehabilitation; Visit Provider Physical Medicine & Rehabilitation
DX: M47.816 Spondylosis without myelopathy or radiculopathy, lumbar region (principal); M47.817 Spondylosis without myelopathy or radiculopathy, lumbosacral region
CPT/HCPCS: 64493; 64494; 99152; J2250

== ENCOUNTER → 2023-05-03 10:16 | Outpatient (CLI) | payer MEDICARE, OTHER, SELFPAY ==
--- NOTE | 2023-05-03 | DI.US.S_ITS ---
PROCEDURE: US THYROID INDICATIONS: Nontoxic single thyroid nodule TECHNIQUE: Real-time scanning was performed of the thyroid gland, with image documentation. COMPARISON: [facility], US, US THYROID, 05/23/2022, 14:58. FINDINGS: Right: Thyroid lobe measures 4.5 x 1.7 x 1.2 cm, and is homogeneous in echotexture. Left: Thyroid lobe measures 4.2 x 1.7 x 2.2 cm, and is homogenous in echotexture. Isthmus: 1.5 mm thick. Nodule number: 1 Location: Right lower pole Size: 0.7 x 0.6 x 1.0 cm, previously 0.9 x 0.6 x 1.0 cm. Composition: Solid Echogenicity: Hypoechoic Shape: wider than tall. Margins: Smooth Echogenic foci: Punctate Total points: 7 ACR TI-RADS category: Highly suspicious Nodule number: 2 Location: Left middle pole Size: 2.4 x 1.7 x 1.9 cm, previously 2.1 x 1.5 x 1.5 cm. Composition: Solid Echogenicity: Hypoechoic Shape: wider than tall. Margins: Smooth Echogenic foci: None Total points: 4 ACR TI-RADS category: Moderately suspicious Nodule number: 3 Location: Left lower pole Size: 0.8 x 0.6 x 0.9 cm, previously 0.8 x 0.9 x 0.6 cm. Composition: Solid Echogenicity: Hypoechoic Shape: wider than tall. Margins: Smooth Echogenic foci: Punctate Total points: 7 ACR TI-RADS category: Highly suspicious IMPRESSION: 1. Multinodular thyroid, as before. 2. Nodule 1, in the right lower pole, is actually solid, and not cystic. It has probable punctate echogenic foci. By imaging criteria, it is in the highly suspicious category. 1 of the measurements is 1.0 cm. It is unchanged in size since the previous study. Consider ultrasound-guided FNA for tissue diagnosis at this point versus [place] screening follow-up. 3. Nodule 2, left middle pole, measures slightly greater today than on the previous study. However, this may be simply a difference in measurement techniques. It is noted to have been sampled less than 1 year ago. If the previous sample is consistent with a benign diagnosis, would not Re sample at this time. If the previous sampling was nondiagnostic, would recommend repeat FNA. ACR TI-RADS definitions and recommendations: TI-RADS 1 (benign): 0 points. FNA not needed. TI-RADS 2 (not suspicious): 2 points. FNA not needed. TI-RADS 3 (mildly suspicious): 3 points. * FNA if 2.5 cm or larger, follow up if 1.5 cm or larger (at 1, 3, and 5 years). TI-RADS 4 (moderately suspicious): 4-6 points. * FNA if 1.5 cm or larger, follow up if 1 cm or larger (at 1, 2, 3, and 5 years). TI-RADS 5 (highly suspicious): 7 points or more. * FNA if 1 cm or larger, follow up if 0.5 cm or larger (every year for 5 years). Dictated by: Vince Kern M.D. on 05/03/2023 at 14:01 Approved by: Vince Kern M.D. on 05/03/2023 at 14:12
== END ==
PROVIDERS: PCP Internal Medicine; Referring Provider Internal Medicine; Visit Provider Internal Medicine
DX: E04.2 Nontoxic multinodular goiter (principal)
CPT/HCPCS: 76536

== ENCOUNTER 2023-06-18 07:25 | Day surgery (SDC) | payer MEDICARE, OTHER, SELFPAY ==
--- NOTE | 2023-06-18 | PATH_ITS ---
[facility] Accession Number: [id number] No. of containers..01 Tissue . 01 Material submitted: . colon - SIGMOID POLYP . 01 Diagnosis: Sigmoid Colon Polyp: Tubular adenoma. MRV 06/25/2023 1328 Local . 01 Electronically signed: . Farshad Marquez MD, PhD, Pathologist NPI- [id number] . 01 Gross description: . SIGMOID POLYP: Received in formalin are 2 fragment(s) of hercules, soft tissue measuring 0.1 x 0.1 x 0.1 cm to 0.2 x 0.2 x 0.2 cm submitted entirely in 1 cassette(s) /AKSHAT 06/21/2023 0110 Local . 01 Pathologist provided ICD-10: D12.5 . 01 CPT . 108535 Specimen Comment: A courtesy copy of this report has been sent to [phone] Performed at: 01 [facility] [address] [place] [address], [place], [place] [id number] MD Gerson Wasserman MD Phone: [phone]
[2023-06-18 07:50] VITALS: BMI 66.1
--- NOTE | 2023-06-18 07:51 | P.HP_ITS ---
History of Present Illness History of Present Illness Date Patient Seen: 06/18/23 Time Patient Seen: 07:51 Chief complaint: Colonoscopy Narrative: personal history of colon polyps. Here for colonoscopy today [facility] Medical History Arthritis Negro esophagus Essential hypertension Facet arthropathy, lumbar Fibromyalgia Gait instability Hyperlipidemia Hyperlipidemia Hypertension Non-seasonal allergic rhinitis Obesity (BMI 30-39.9) Obstructive sleep apnea, adult (~06/2021) Smoking Snoring Spondylolisthesis at L5-S1 level Stroke due to intracerebral hemorrhage Surgical History History of cholecystectomy (~1979) History of hernia repair (~2005) History of varicose vein stripping (~1995) Hx of appendectomy (~1967) Hx of brain surgery Social History household members: spouse Smoking Status: Former smoker alcohol intake: current Meds Home Medications and Allergies Home Medications Medication Instructions Recorded Confirmed Type cyclobenzaprine 10 mg tablet 10 mg PO BEDTIME 01/23/20 06/18/23 History losartan 50 mg tablet 50 mg PO BID 01/23/20 06/18/23 History sennosides 8.6 mg tablet (senna) 8.6 mg PO BEDTIME PRN Constipation 08/03/21 04/06/23 History acetaminophen 500 mg tablet 1,000 mg PO DAILY pain 11/28/21 04/06/23 History azelastine 137 mcg (0.1 %) nasal 2 spray intranasal BID 11/28/21 04/06/23 History spray aerosol calcium carbonate 200 mg calcium 200 mg PO BID 11/28/21 04/06/23 History (500 mg) chewable tablet (Tums) cholecalciferol (vitamin D3) 50 100 mcg PO DAILY 11/28/21 04/06/23 History mcg (2,000 unit) capsule docusate calcium 240 mg capsule 240 mg PO DAILY PRN Constipation 11/28/21 04/06/23 History famotidine 20 mg tablet (Acid 20 mg PO DAILY PRN Indigestion 11/28/21 04/06/23 History Cadmium Liquor Maker (famotidine)) fexofenadine 180 mg tablet 180 mg PO DAILY PRN Allergic 11/28/21 04/06/23 History (Mayra Allergy) Symptoms gabapentin 300 mg capsule 300 mg PO TID PRN Pain, Moderate 11/28/21 06/18/23 History levocetirizine 5 mg tablet (Xyzal) 5 mg PO QPM PRN Allergy Symptoms 11/28/21 04/06/23 History metoprolol succinate 25 mg capsule 25 mg PO DAILY 11/28/21 06/18/23 History sprinkle, ext. release 24 hr (Kapspargo Sprinkle) mometasone 0.1 % topical solution 1 applic topical BID PRN Ear Wax 11/28/21 04/06/23 History oxycodone 5 mg tablet 5 mg PO DAILY PRN Pain, Moderate 11/28/21 04/06/23 History tramadol 50 mg tablet 50 mg PO Q6H PRN Pain (Scale Score 11/28/21 04/06/23 History 7-10) potassium citrate 250 100 ml PO PRN Hypokalemia 05/10/22 04/06/23 History pseudoephedrine HCl [Sudafed] 1 tab PO PRN Allergy Symptoms 05/10/22 04/06/23 History rosuvastatin 20 mg tablet 20 mg PO DAILY 05/10/22 06/18/23 History sildenafil 50 mg tablet 50 mg PO DAILY PRN Sexual Activity 05/10/22 04/06/23 History albuterol sulfate 90 mcg/actuation 2 puff inhalation .PRN 07/12/22 04/06/23 History aerosol inhaler fluticasone 100 mcg-salmeterol 50 1 inh inhalation BID 04/06/23 04/06/23 History mcg/dose blistr powdr for inhalation omeprazole 40 mg capsule,delayed 40 mg PO DAILY 04/06/23 04/06/23 History release Allergies Allergy/AdvReac Type Severity Reaction Status Date / Time amoxicillin Allergy Unknown Nausea Verified 04/06/23 14:16 aspirin AdvReac Unknown history of Verified 06/18/23 07:44 stroke NSAIDS (Non-Steroidal AdvReac Unknown history of Verified 06/18/23 07:44 Anti-Inflamma stroke Review of Systems Review of Systems ROS: Yes All systems reviewed with the patient and are negative except as otherwise documented Exam Const General: cooperative HENMT Head: normal to inspection Eyes General: appearance normal, both eyes and all related structures Neck Neck: normal visual inspection Chest Chest: normal inspection of the chest Resp Effort & Inspection: normal respiratory effort Cardio Rate: regular rate GI Inspection: normal to inspection Skin General: no rashes or lesions noted Neuro General: patient alert and patient awake Extrem General: normal to inspection and no pedal edema Psych Appearance: grossly normal Assessment & Plan Assessment & Plan narrative: 73-year-old male with a personal history of colon polyps. Colonoscopy is pursued today.
--- NOTE | 2023-06-18 07:52 | PM.PREOP ---
Pre-operative Note Interval Note History & Physical reviewed/Exam performed by Physician: Yes Changes to H&P: No ASA Class (for procedural sedation): III
[2023-06-18 07:55] VITALS: BP 125/96; PULSE 67; RESP 16; TEMP 35.9; O2SAT 94
[2023-06-18] MEDS: LACTATED RINGERS 1,000 ML 42 ML IV (08:01)
--- NOTE | 2023-06-18 09:03 | PM.OP.COLON ---
Operative Date/Time/Diagnoses Date of procedure: 06/18/23 Time of procedure: 09:04 Pre-op diagnosis: Colon polyp history Post-op diagnosis: same Procedure & Clinicians Study performed: Colonoscopy with cold biopsy Same procedure as scheduled: Yes Indications: Colon polyps history Surgeon: Yunior Beal Procedure Notes SCOAP/Timeout: Done Procedure in detail: After the risks and benefits were explained, written and verbal informed consent was obtained. The patient was brought into the procedure room and placed into the left lateral decubitus position. Please see anesthesia note for sedation details. Digital rectal examination was accomplished. The scope was introduced into the patient and advanced under direct visualization to the cecum as identified by the appendiceal orifice and ileocecal valve. The scope was slowly withdrawn to carefully examine the mucosa for any defects or lesions. Comprehensive imaging was accomplished throughout the rectum including the dentate line. The colon was decompressed, the scope was then removed from the patient who tolerated the procedure well. Adult colonoscope Bowel prep adequate Scope withdrawal time: 15 minutes Sedation minutes: 26 Complications: none Impression: The patient had rather extensive diverticulosis all through the sigmoid. There was a pedunculated polypoid structure in this region that I initially thought to excised with a hot snare. However upon closer inspection I was quite concerned that this might be an everted diverticulum and I elected to only take a biopsy of this area instead. No additional mucosal pathology was appreciated throughout. Endoscopic diagnosis 1. Diverticulosis 2. Sigmoid polyp at 28 cm from the anal verge versus inverted diverticulum Post-procedure Plan for aftercare: 1. Await histopathology. 2. If any adenomatous features are identified then an early flexible sigmoidoscopy for hot snare removal will be arranged. Disposition: PACU
[2023-06-18 09:05] VITALS: BP 123/51; PULSE 56; RESP 17; TEMP 36.1; O2SAT 91
[2023-06-18 09:10] VITALS: BP 137/80; PULSE 52; RESP 18; O2SAT 98
[2023-06-18 09:15] VITALS: BP 123/77; PULSE 52; RESP 18; TEMP 36.6; O2SAT 96
[2023-06-18 09:22] VITALS: BP 95/71; PULSE 54; RESP 18; TEMP 36.6; O2SAT 96
--- NOTE | 2023-06-18 09:48 | SUR.PHASEII ---
Pt DC to home with own WC and assist to get dressed. Steady at baseline.
== END 2023-06-18 09:43 | disposition home or self-care (01) ==
PROVIDERS: PCP Internal Medicine; Referring Provider Internal Medicine Gastroenterology; Visit Provider Internal Medicine Gastroenterology
PROC: 0DJD8ZZ Inspection of Lower Intestinal Tract, Via Natural or Artificial Opening Endoscopic (ICD-10-PCS; CPT 45378; principal; 2023-06-18 08:30)
DX: Z12.11 Encounter for screening for malignant neoplasm of colon (principal); Z86.010 Personal history of colon polyps; K57.30 Diverticulosis of large intestine without perforation or abscess without bleeding; D12.5 Benign neoplasm of sigmoid colon
CPT/HCPCS: 45380; J2704

== ENCOUNTER → 2023-06-28 14:10 | Outpatient (CLI) | payer MEDICARE, OTHER, SELFPAY ==
--- NOTE | 2023-06-28 | DI.US.S_ITS ---
PROCEDURE: US THYROID INDICATIONS: RIGHT THYROID INFERIOR FINE NEEDLE ASPIRATION CONSULT TECHNIQUE: Real-time scanning was performed of the thyroid gland, with image documentation. COMPARISON: [facility], US, US THYROID, 05/03/2023, 10:25. FINDINGS: Patient presented for fine-needle aspiration of right inferior TI-RADS 5 nodule. Preprocedural scanning demonstrated the nodule was in an unsafe location for sampling given proximity to right common carotid artery and internal jugular vein as well as small size of the nodule. Additional images acquired demonstrate that the nodule does not contain punctate echogenic foci and is characterized as below: Nodule number: 1 Location: Right inferior pole Size: 1.0 by 0.8 x 0.7 cm, previously 1.0 x 0.7 x 0.6 cm on 05/03/2023. Composition: Solid Echogenicity: Hypoechoic Shape: wider than tall. Margins: Smooth Echogenic foci: None Total points: 4 ACR TI-RADS category: TI-RADS 4 (moderately suspicious) IMPRESSION: Recommend imaging surveillance of moderately suspicious 1.0 cm right inferior pole nodule in 1 year. ACR TI-RADS definitions and recommendations: TI-RADS 1 (benign): 0 points. FNA not needed. TI-RADS 2 (not suspicious): 2 points. FNA not needed. TI-RADS 3 (mildly suspicious): 3 points. * FNA if 2.5 cm or larger, follow up if 1.5 cm or larger (at 1, 3, and 5 years). TI-RADS 4 (moderately suspicious): 4-6 points. * FNA if 1.5 cm or larger, follow up if 1 cm or larger (at 1, 2, 3, and 5 years). TI-RADS 5 (highly suspicious): 7 points or more. * FNA if 1 cm or larger, follow up if 0.5 cm or larger (every year for 5 years). Approved by: Mariama Leyva M.D. on 06/28/2023 at 19:15
== END ==
PROVIDERS: PCP Internal Medicine; Referring Provider Internal Medicine; Visit Provider Internal Medicine
DX: E04.1 Nontoxic single thyroid nodule (principal)
CPT/HCPCS: 76536

== ENCOUNTER 2023-06-29 15:45 | Emergency (ER) | payer MEDICARE, OTHER, SELFPAY ==
[2023-06-29 15:58] VITALS: BP 119/74; PULSE 61; RESP 20; TEMP 36.2; O2SAT 98; BMI 29.1
--- NOTE | 2023-06-29 16:06 | DI.RAD.S_ITS ---
PROCEDURE: XR FOOT LT MIN 3V INDICATIONS: fall with foot pain TECHNIQUE: 3 views of the foot were acquired. COMPARISON: None. FINDINGS: Bones: No dislocations. No suspicious bony lesions. There is a diagonal fracture at the distal diaphysis adjacent to the metadiaphyseal junction of the 4th metatarsal bone. No additional traumatic injury is seen. Soft tissues: No tibiotalar joint effusion. Achilles tendon appears normal. IMPRESSION: Distal metadiaphyseal junction fracture 4th metatarsal bone, mildly displaced. Dictated by: Josue Olivares M.D. on 06/29/2023 at 17:01 Approved by: Josue Olivares M.D. on 06/29/2023 at 17:02
--- NOTE | 2023-06-29 19:13 | ED.LOWEXIN ---
HPI - Extremity Injury (Lower) General Chief Complaint: Extremity Injury, Lower Stated Complaint: Fall W/O thinners Time Seen by Provider: 06/29/23 19:06 Source: patient Mode of arrival: Wheelchair Limitations: no limitations History of Present Illness HPI Narrative: Patient is a 73-year-old male. Has had a history of a stroke. Has left-sided weakness. Does use a wheelchair but also uses a walker at home. Has decreased sensation in his left foot that is not new. He occasionally falls. He lost his balance and fell earlier today. His only discomfort is pain to his left foot. No other injuries from the fall. Related Data Home Medications Medication Instructions Recorded Confirmed cyclobenzaprine 10 mg tablet 10 mg PO BEDTIME 01/23/20 06/18/23 losartan 50 mg tablet 50 mg PO BID 01/23/20 06/18/23 sennosides 8.6 mg tablet (senna) 8.6 mg PO BEDTIME PRN Constipation 08/03/21 04/06/23 acetaminophen 500 mg tablet 1,000 mg PO DAILY pain 11/28/21 04/06/23 azelastine 137 mcg (0.1 %) nasal 2 spray intranasal BID 11/28/21 04/06/23 spray aerosol calcium carbonate 200 mg calcium 200 mg PO BID 11/28/21 04/06/23 (500 mg) chewable tablet (Tums) cholecalciferol (vitamin D3) 50 100 mcg PO DAILY 11/28/21 04/06/23 mcg (2,000 unit) capsule docusate calcium 240 mg capsule 240 mg PO DAILY PRN Constipation 11/28/21 04/06/23 famotidine 20 mg tablet (Acid 20 mg PO DAILY PRN Indigestion 11/28/21 04/06/23 Technologist Development (famotidine)) fexofenadine 180 mg tablet 180 mg PO DAILY PRN Allergic 11/28/21 04/06/23 (Mayra Allergy) Symptoms gabapentin 300 mg capsule 300 mg PO TID PRN Pain, Moderate 11/28/21 06/18/23 levocetirizine 5 mg tablet (Xyzal) 5 mg PO QPM PRN Allergy Symptoms 11/28/21 04/06/23 metoprolol succinate 25 mg capsule 25 mg PO DAILY 11/28/21 06/18/23 sprinkle, ext. release 24 hr (Kapspargo Sprinkle) mometasone 0.1 % topical solution 1 applic topical BID PRN Ear Wax 11/28/21 04/06/23 oxycodone 5 mg tablet 5 mg PO DAILY PRN Pain, Moderate 11/28/21 04/06/23 tramadol 50 mg tablet 50 mg PO Q6H PRN Pain (Scale Score 11/28/21 04/06/23 7-10) potassium citrate 250 100 ml PO PRN Hypokalemia 05/10/22 04/06/23 pseudoephedrine HCl [Sudafed] 1 tab PO PRN Allergy Symptoms 05/10/22 04/06/23 rosuvastatin 20 mg tablet 20 mg PO DAILY 05/10/22 06/18/23 sildenafil 50 mg tablet 50 mg PO DAILY PRN Sexual Activity 05/10/22 04/06/23 albuterol sulfate 90 mcg/actuation 2 puff inhalation .PRN 07/12/22 04/06/23 aerosol inhaler fluticasone 100 mcg-salmeterol 50 1 inh inhalation BID 04/06/23 04/06/23 mcg/dose blistr powdr for inhalation omeprazole 40 mg capsule,delayed 40 mg PO DAILY 04/06/23 04/06/23 release Allergies Allergy/AdvReac Type Severity Reaction Status Date / Time amoxicillin [From Augmentin] AdvReac Unknown Nausea and Verified 06/29/23 16:06 vomiting aspirin AdvReac Unknown history of Verified 06/29/23 16:06 stroke clavulanic acid AdvReac Unknown Nausea and Verified 06/29/23 16:06 [From Augmentin] vomiting NSAIDS (Non-Steroidal AdvReac Unknown history of Verified 06/29/23 16:06 Anti-Inflamma stroke Review of Systems Constitutional Constitutional: Reports system reviewed and no additional complaints, except as documented Musculoskeletal Musculoskeletal: Reports system reviewed and no additional complaints, except as documented Integumentary/Breasts Skin/Breast: Reports system reviewed and no additional complaints, except as documented Neurologic Neurologic: Reports system reviewed and no additional complaints, except as documented Patient History Medical History Arthritis Negro esophagus Essential hypertension Facet arthropathy, lumbar Fibromyalgia Gait instability Hyperlipidemia Hyperlipidemia Hypertension Non-seasonal allergic rhinitis Obesity (BMI 30-39.9) Obstructive sleep apnea, adult (~06/2021) Smoking Snoring Spondylolisthesis at L5-S1 level Stroke due to intracerebral hemorrhage Surgical History History of cholecystectomy (~1979) History of hernia repair (~2005) History of varicose vein stripping (~1995) Hx of appendectomy (~1967) Hx of brain surgery Social History household members: spouse Smoking Status: Former smoker alcohol intake: current Smoking Status: Former smoker alcohol intake frequency: 0-2 drinks per day Substance Use Type: does not use Exam Initial Vital Signs Initial Vital Signs: Vital Signs Temperature 97.1 F L 06/29/23 15:58 Pulse Rate 61 06/29/23 15:58 Respiratory Rate 20 06/29/23 15:58 Blood Pressure 119/74 06/29/23 15:58 Pulse Oximetry 98 06/29/23 15:58 Oxygen Delivery Method Room Air 06/29/23 15:58 HENMT Head: normal to inspection Cardio Pulses: dorsalis pedis present on the left Skin General: no rashes or lesions noted Extrem Other: Patient with tenderness to palpation over the left forefoot at the 4th metatarsal where the fractures noted on the x-ray. No tenderness over Lisfranc joint. Procedures Orthopedic Splinting/Casting Injury #1: Side: left Lower Extremity Injury Location: foot Lower Extremity Immobilizer: boot orthosis Post splinting neuro exam: no change Post splinting vascular exam: no change Placed by: Nursing Course Orders Ordered: ED Orders 06/29/23 16:06 XR foot LT min 3V Stat Vital Signs Vital signs: Vital Signs - 8 hr 06/29/23 15:58 Temperature 97.1 F L Pulse Rate 61 Respiratory Rate 20 Blood Pressure 119/74 Pulse Oximetry 98 Oxygen Delivery Method Room Air MDM - Extremity Injury (Lower) Imaging Data Extremity x-ray #1: Radiologist's Impression: PROCEDURE:? XR FOOT LT MIN 3V ? INDICATIONS:? fall with foot pain ? TECHNIQUE:? 3 views of the foot were acquired.? ? COMPARISON:? None. ? FINDINGS:? ? Bones:? No dislocations.? No suspicious bony lesions.? There is a diagonal fracture at the distal diaphysis adjacent to the metadiaphyseal junction of the 4th metatarsal bone.? No additional traumatic injury is seen. ? Soft tissues:? No tibiotalar joint effusion.? Achilles tendon appears normal.? ? ? IMPRESSION:? Distal metadiaphyseal junction fracture 4th metatarsal bone, mildly displaced. ? MDM Narrative Medical decision making narrative: Patient does have fracture of the left 4th metatarsal and this is the area where he is having discomfort. He reports no other injuries from the event. He is at his baseline neurologic status. We discussed the fracture. We discussed being nonweightbearing until following up with Orthopedic surgery. He was placed in a orthopedic boot as I thought given his stroke and his age and the fact that he does use wheelchair most often that this would be sufficient for now. He was advised that he should be nonweightbearing to his left lower extremity until he follows up with Orthopedics. He expressed understanding with this. He was given return precautions. Discharge Plan Departure Patient Disposition: Home Clinical Impression: Foot fracture, left Instructions: DI for Foot Fracture Activity Restrictions/Additional Instructions: You do need to stay in your wheelchair and not use the walker. You should be nonweightbearing on your left foot. You can take the boot off to bathe and also at night to sleep. On Sunday contact the orthopedic doctors at the number provided below. Return to the emergency department for new symptoms. Prescriptions: No Action acetaminophen 500 mg tablet 1,000 mg PO DAILY gabapentin 300 mg capsule 300 mg PO TID PRN (Reason: Pain, Moderate) losartan 50 mg Tablet 50 mg PO BID cyclobenzaprine 10 mg Tablet 10 mg PO BEDTIME Rx Instructions: 1-2 hours before bedtime levocetirizine [Xyzal] 5 mg tablet 5 mg PO QPM PRN (Reason: Allergy Symptoms) sennosides [senna] 8.6 mg tablet 8.6 mg PO BEDTIME PRN (Reason: Constipation) azelastine 137 mcg (0.1 %) aerosol,spray 2 spray intranasal BID Rx Instructions: administer into each nostril docusate calcium 240 mg capsule 240 mg PO DAILY PRN (Reason: Constipation) Patient Comments: months ago fexofenadine [Mayra Allergy] 180 mg tablet 180 mg PO DAILY PRN (Reason: Allergic Symptoms) Patient Comments: months ago Kapspargo Sprinkle 25 mg capsule,sprinkle,ER 24hr 25 mg PO DAILY mometasone 0.1 % solution 1 applic topical BID PRN (Reason: Ear Wax) oxycodone 5 mg tablet 5 mg PO DAILY PRN (Reason: Pain, Moderate) tramadol 50 mg tablet 50 mg PO Q6H PRN (Reason: Pain (Scale Score 7-10)) Patient Comments: take 1 tablet by mouth every 6 hours if needed for pain cholecalciferol (vitamin D3) 50 mcg (2,000 unit) capsule 100 mcg PO DAILY albuterol sulfate 90 mcg/actuation HFA aerosol inhaler 2 puff inhalation .PRN omeprazole 40 mg capsule,delayed release(DR/EC) 40 mg PO DAILY Patient Comments: take 1 capsule by mouth 30 MINUTES BEFORE MORNING MEAL fluticasone propion-salmeterol 100-50 mcg/dose blister with device 1 inh inhalation BID Patient Comments: inhale 1 puff by mouth and INTO THE LUNGS twice a day Rinse mouth after use calcium carbonate [Tums] 200 mg calcium (500 mg) tablet,chewable 200 mg PO BID famotidine [Acid Technologist Development (famotidine)] 20 mg tablet 20 mg PO DAILY PRN (Reason: Indigestion) Patient Comments: months ago potassium citrate 250 100 ml PO PRN (Reason: Hypokalemia) rosuvastatin 20 mg tablet 20 mg PO DAILY pseudoephedrine HCl [Sudafed] 1 tab PO PRN (Reason: Allergy Symptoms) sildenafil 50 mg tablet 50 mg PO DAILY PRN (Reason: Sexual Activity) Patient Comments: hasnt started Rx Instructions: administer 30 minutes to 4 hours before activity Referrals: Yeimy Montemayor MD [Physician] - Yesy Cortes MD [Primary Care Provider] - Stand Alone Forms: Patient Portal/API
== END 2023-06-29 19:33 | disposition home or self-care (01) ==
PROVIDERS: Emergency Provider Emergency Medicine; PCP Internal Medicine
DX: S92.342A Displaced fracture of fourth metatarsal bone, left foot, initial encounter for closed fracture (principal); W18.30XA Fall on same level, unspecified, initial encounter
CPT/HCPCS: 73630; 99283

== ENCOUNTER → 2023-07-06 15:21 | Outpatient (CLI) | payer MEDICARE, OTHER, SELFPAY ==
[2023-07-06 16:47] LABS: HEMOLYSIS < 15 (0-50); Iron 123 ug/dL (49-181)
[2023-07-06 16:53] LABS: C-Reactive Protein Quant < 0.5 mg/dL (<1.0)
[2023-07-06 16:57] LABS: Transferrin 221 mg/dL (206-381)
[2023-07-06 16:58] LABS: Percent Iron Saturation 42 % (20-50); Total Iron Binding Capacity 295 ug/dL (261-462)
[2023-07-06 17:24] LABS: Ferritin 223 ng/mL (18-464)
== END ==
PROVIDERS: PCP Internal Medicine; Referring Provider Pediatrics; Visit Provider Pediatrics
DX: D50.9 Iron deficiency anemia, unspecified (principal); G47.61 Periodic limb movement disorder; G25.81 Restless legs syndrome
CPT/HCPCS: 36415; 82728; 83540; 83550; 86140

== ENCOUNTER 2023-08-02 12:40 | Outpatient (CLI) | payer MEDICARE, OTHER, SELFPAY ==
[2023-08-02] VITALS (16 sets, daily range): BP systolic 103–133; BP diastolic 60–94; PULSE 48–55; RESP 12–22; TEMP 36.2; O2SAT 92–97
--- NOTE | 2023-08-02 12:41 | DI.RAD.S_ITS ---
PROCEDURE: PAIN L/S FACET INJ/BLK 1ST ADOLFO INDICATIONS: SPONDYLOSIS COMPARISON: [facility], , PAIN L/S FACET INJ/BLK 1ST ADOLFO, 05/01/2023, 14:01. FINDINGS: Fluoroscopic spot filming was performed to verify placement of spinal needles at the bilateral L4, L5 and S1 pedicle level(s), as labeled on the films. Appropriate location(s) of the needle tip(s) was confirmed by injection of iodinated contrast. IMPRESSION: Access needles at the bilateral L4, L5 and S1 pedicles for bilateral L4, L5 and S1 medial branch blocks. Dictated by: Susan Edmonds MD, PhD on 08/02/2023 at 13:56 Approved by: Susan Edmonds MD, PhD on 08/02/2023 at 13:58
[2023-08-02] MEDS: MIDAZOLAM 2 MG/2 ML VIAL IV (13:18)
[2023-08-02] MEDS: LIDOCAINE 2% INJ SDV 5ML 1 ML INJ (13:31)
[2023-08-02] MEDS: LIDOCAINE 1% 20 ML 5 ML INJ (13:31)
[2023-08-02] MEDS: IOPAMIDOL 15 ML VIAL 3 ML INJ (13:31)
--- NOTE | 2023-08-02 13:44 | P.PCN_ITS ---
Date/Time/Diagnoses Date of procedure: 08/02/23 Time of procedure: 13:44 Pre-procedure diagnosis: 1. FACET ARTHROPATHY Post-procedure diagnosis: same Procedure Notes Procedure: 1. BILATERAL- L4, L5 and S1 DIAGNOSTIC MB BLOCKS with SA Anesthetic Indications: Gerd is referred by Dr. Cortes for treatment of Bilateral Axial LBP. Physician: Leon Maravilla Total Fluoroscopy time (seconds): 12 Total sedation minutes: 18 Complications: none Procedure in detail & Post-procedure care: DESCRIPTION OF PROCEDURE Fluoroscopically guided, contrast-controlled bilateral L4, L5 and S1 medial branch blocks with 0.5cc of 2% Lidocaine. Following review of allergy and review of potential side effects and complications, including, but not necessarily limited to, infection, allergic reaction, local tissue breakdown, nerve injury, paralysis, stroke and possible , the patient indicated that the patient understood and agreed to proceed. An informed consent document was signed by the patient, witnessed by a nurse, and placed in the patient's chart. After review of previous anaesthesic history and IV conscious sedation the patient was deemed safe to proceed with today's procedure with IV conscious sedation as ASA class II designation. Safety time-out was performed to confirm patient ID, procedure to be performed and site of procedure. IV sedation was accomplished with a combination of 2mg of Versed was administered by the RN after DO order, titrated to patient comfort during the course of the procedure while the patient remained responsive to all verbal commands In the prone position, following sterile prep and drape of the lumbar region, the right L4, L5 and S1 anatomical location of the medial branch of the dorsal ramus was identified fluoroscopically. Subsequently an anesthetic skin wheal us ing 1% lidocaine solution was initiated at each of the anatomical spots. Subsequently then a 22-gauge 3.5-inch spinal needle was atraumatically introduced and advanced under fluoroscopic guidance at each of the corresponding sites at the right L4, L5 and S1 MB. After negative aspiration, 0.2cc of Isovue 200 was injected, confirming placement without vascular or intrathecal uptake. Subsequently then 0.5cc of 2% Lidocaine solution was injected at each of the corresponding sites at the right L4, L5 and S1 medial branch locations. The identical procedure was replicated on the left. The patient tolerated the procedure well without signs or symptoms of complications prior to transfer to the recovery area continued monitoring without incident. Post-procedure, the patient was monitored initiating provocative activities to measure the amount of relief from block of the facetogenic pain. The patient reported a VAS of 7 prior to the procedure and a post-procedure VAS of 1. It has been a pleasure to assist in the diagnostic and therapeutic care of your patient. POST OP INSTRUCTIONS The patient was provided with a Pain Log to complete over the next several hours and subsequent days prior to the patient's follow up with the ordering physician. 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 The patient is aware, was provided, once again, with a Pain Log and will follow up with the referring physician for review and clinical correlation
--- NOTE | 2023-08-02 14:04 | PC.NURSE ---
Patient arrived to Pre-post room post injection and sedation lethargic and confused. Difficulty following commands. VSS, alexia 8-9. Patient assisted from WC to recliner with [address] Maravilla aware. Care ongoing.
--- NOTE | 2023-08-02 14:27 | PC.NURSE ---
April, patient's updated on recovery timeline. Patient with increased agitation and confusion that eventually calmed. Dozing intermittently with stable VS. Care ongoing.
== END 2023-08-02 14:45 | disposition home or self-care (01) ==
LOC: RAD 12:41
PROVIDERS: PCP Internal Medicine; Referring Provider Physical Medicine & Rehabilitation; Visit Provider Physical Medicine & Rehabilitation
DX: M47.816 Spondylosis without myelopathy or radiculopathy, lumbar region (principal); M47.817 Spondylosis without myelopathy or radiculopathy, lumbosacral region
CPT/HCPCS: 64493; 64494; 99152; J2250

== ENCOUNTER → 2023-08-28 14:17 | Outpatient (CLI) | payer MEDICARE, OTHER, SELFPAY ==
--- NOTE | 2023-08-28 | DI.US.S_ITS ---
PROCEDURE: US RETRO PERITONEAL LIMITED INDICATIONS: DISTAL ABDOMINAL AORTIC ANEURYSM WITHOUT RUPTURE TECHNIQUE: Real time scanning was performed of the aorta and iliac arteries, with image documentation. COMPARISON: [facility], , ABD AORTA ANEURYSM SCREEN, 08/15/2022, 14:27. FINDINGS: Aorta: Proximal aortic diameter measures 3.5 x 3.0 cm. Mid-aorta measures 2.8 cm. Distal aortic diameter is 3.7 x 2.9 cm. Iliac arteries: Right common iliac artery measures 2.4 x 2.2 cm. Left common iliac artery measures 1.3 cm. IMPRESSION: Abdominal aortic aneurysm measuring up to 3.7 cm. Dictated by: Taco Archuleta M.D. on 08/29/2023 at 10:32 Approved by: Taco Archuleta M.D. on 08/29/2023 at 10:35
== END ==
PROVIDERS: PCP Internal Medicine; Referring Provider Internal Medicine; Visit Provider Internal Medicine
DX: I71.40 Abdominal aortic aneurysm, without rupture, unspecified (principal)
CPT/HCPCS: 76775

== ENCOUNTER 2023-09-20 10:43 | Outpatient (CLI) | payer MEDICARE, OTHER, SELFPAY ==
[2023-09-20] VITALS (11 sets, daily range): BP systolic 105–127; BP diastolic 62–82; PULSE 45–47; RESP 13–23; TEMP 36.1; O2SAT 92–98
--- NOTE | 2023-09-20 10:46 | DI.RAD.S_ITS ---
PROCEDURE: PAIN L/S MED/LAT N RFA BILAT INDICATIONS: SPONDYLOSIS COMPARISON: [facility], , PAIN L/S FACET INJ/BLK 1ST ADOLFO, 08/02/2023, 13:26. FINDINGS: Fluoroscopic spot filming was performed to verify placement of spinal needles on both sides at the L4, L5, and S1 levels, as labeled on the films. IMPRESSION: Images during rhizotomy within normal limits. Dictated by: Pradeep Zarco M.D. on 09/20/2023 at 12:52 Approved by: Pradeep Zarco M.D. on 09/20/2023 at 12:53
[2023-09-20] MEDS: MIDAZOLAM 2 MG/2 ML VIAL IV (12:17)
[2023-09-20] MEDS: BUPIVACAINE 0.5% (PF) 10 ML VIAL 5 ML INJ (12:25)
[2023-09-20] MEDS: LIDOCAINE 1% 20 ML 5 ML INJ (12:26)
--- NOTE | 2023-09-20 12:55 | P.PCN_ITS ---
Date/Time/Diagnoses Date of procedure: 09/20/23 Time of procedure: 12:55 Pre-procedure diagnosis: 1. RECALCITRANT FACET ARTHROPATHY Post-procedure diagnosis: same Procedure Notes Procedure: 1. BILATERAL L4 AND L5 MEDIAL BRANCH RADIOFREQUENCY NEUROTOMY AND S1 DORSAL RAMUS BRANCH RADIOFREQUENCY NEUROTOMY Indications: Gerd is referred by Dr. Cortes for treatment of facet arthropathy. Physician: Leon Maravilla Total Fluoroscopy time (seconds): 25 Total sedation minutes: 34 Complications: none Procedure in detail & Post-procedure care: DESCRIPTION OF PROCEDURE Bilateral L4 and L5 medial branch radiofrequency neurotomy and bilateral S1 dorsal ramus radiofrequency neurotomy under fluoroscopy with conscious sedation. The patient is well known to this clinic having undergone previous facet injections with good but temporary relief. The patient has experienced appropriate, concordant relief with previous facet and median branch blocks but the patient's pain has been recalcitrant to further conservative measures. Therefore, based upon the patient's relief and persistent symptoms, the patient is considered an appropriate candidate for facet rhizotomy. All of the patient's questions regarding the risks versus benefits of the procedure, including, but not limited to, bleeding, infection, temporary as well as lasting nerve injury, paralysis, stroke, and , as well treatment alternatives were answered to satisfaction. After obtaining informed consent, denial of pertinent drug allergies, as well as being made aware of the potential risks of bleeding, infection, spinal cord trauma, paralysis, temporary and permanent nerve damage, seizure, stroke, and possible , the patient was brought to the fluoroscopy suite and positioned prone on the fluoroscopy table. The lumbar region was prepped in usual sterile fashion and covered with a fenestrated drape in the usual sterile fashion. Appropriate monitors applied including pulse oximeter, pulse, and blood pressure for regular monitoring throughout the procedure. After review of previous anaesthesic history and IV conscious sedation the patient was deemed safe to proceed with today's procedure with IV conscious sedation as ASA class II designation. Safety time-out was performed to confirm patient ID, procedure to be performed and site of procedure. IV sedation was accomplished with a combination of 1mg of Versed administered by the RN after DO order, titrated to patient comfort during the course of the procedure while the patient remained responsive to all verbal commands. After local infiltration using 1% lidocaine, under fluoroscopic guidance, a 10- cm RF insulated needle with a 10-mm active tip was positioned parallel to the junction of the right sacral ala and the superior articulating process where the S1 dorsal ramus resides. Needle placement was confirmed with motor stimulation of .5v on the right which produced local stimulation without radicular component. The stimulation was then increased to 2v with, once again, only local multifidus stimulation without radicular component. The needle was then removed and the identical procedure was performed along the length of the right L5 medial branch with motor stimulation at .7v on the right. The identical procedure was once again performed along the length of the right L4 medial branch with motor stimulation of .5v on the right. The medial branches were then anesthetised with 0.5% Marcaine. This was then followed by two discreet lesions performed at 80 degrees Celsius for 90 seconds each. The identical procedure was repeated on the left. The patient tolerated the procedure well without signs or symptoms of complications prior to transfer to the recovery area continued monitoring without incident. The patient was then transferred to the recovery area where they were observed for an appropriate period of time after the injection. The patient reported a VAS score of 9 prior to the procedure and a post-procedure VAS of 0. POST OP INSTRUCTIONS The patient was provided a Pain Log to continue to record the patient's response to the target-specific procedure prior to the patient's follow-up visit with the referring physician. Additionally, specific post-injection care instructions and a contact number to our office were provided if concerns arise regarding possible complications associated with the procedure are suspected.
== END 2023-09-20 13:13 | disposition home or self-care (01) ==
LOC: RAD 10:45
PROVIDERS: PCP Internal Medicine; Referring Provider Physical Medicine & Rehabilitation; Visit Provider Physical Medicine & Rehabilitation
DX: M47.816 Spondylosis without myelopathy or radiculopathy, lumbar region (principal); M47.817 Spondylosis without myelopathy or radiculopathy, lumbosacral region
CPT/HCPCS: 64635; 64636; 99152; 99153; J2250

== ENCOUNTER → 2023-10-25 13:51 | Outpatient (CLI) | payer MEDICARE, OTHER, SELFPAY ==
--- NOTE | 2023-10-25 | DI.CT.S_ITS ---
PROCEDURE: CT SINUS SCREEN WO CON INDICATIONS: SINUSITIS TECHNIQUE: Noncontrast 3.0 mm axial images acquired from the frontal sinuses to the mid-sella, with coronal and sagittal reformats. For radiation dose reduction, the following was used: automated exposure control, adjustment of mA and/or kV according to patient size. COMPARISON: [facility], CT, CT SINUS SCREEN WO CON, 01/06/2021, 16:15. FINDINGS: Image quality: Excellent. Maxillary Sinuses: Mucosal thickening of the maxillary sinuses bilaterally measuring up to 3 mm. No polyps or mucosal retention cysts. No bony remodeling or destruction. Sinuses are clear. Ethmoid Air Cells: Scattered opacification of the ethmoid air cells. No bony remodeling or destruction. Sinuses are clear. Sphenoid Sinuses: Mucosal thickening. Mucosal retention cyst in the left anterolateral sphenoid sinus. Layering fluid posteriorly on the right. No bony remodeling or destruction. Frontal Sinuses: No bony remodeling or destruction. Sinuses are clear. Ostiomeatal Complexes: A left ostiomeatal unit is patent. The right ostiomeatal unit is occluded. Septal deviation with spurring to the left. No Krystina cells. Miscellaneous: Visualized intra-orbital contents are normal. No broderick bullosa or paradoxical turbinate curvature. No nasal septal deviation. Remote right frontal cranioplasty. IMPRESSION: 1. Pansinus mucosal thickening as detailed above. Worse compared to 01/06/2021. 2. Leftward nasal septal deviation. 3. Intracranial postsurgical sequela. Dictated by: Francois Yates M.D. on 10/25/2023 at 14:32 Approved by: Francois Yates M.D. on 10/25/2023 at 14:36
== END ==
PROVIDERS: PCP Internal Medicine; Referring Provider Internal Medicine; Visit Provider Internal Medicine
DX: J32.4 Chronic pansinusitis; J34.2 Deviated nasal septum; Z98.890 Other specified postprocedural states
CPT/HCPCS: 70486

== ENCOUNTER 2023-12-17 08:47 | Day surgery (SDC) | payer MEDICARE, OTHER, SELFPAY ==
[2023-12-17] VITALS (7 sets, daily range): BP systolic 88–126; BP diastolic 56–83; PULSE 44–56; RESP 16–18; TEMP 36.1–36.2; O2SAT 90–95
--- NOTE | 2023-12-17 | PATH_ITS ---
[facility] Accession Number: [id number] No. of containers..01 Tissue . 01 Material submitted: . colon - SIGMOID POLYP . 01 Diagnosis: Sigmoid Colon, Polyp: Tubular adenoma. MRV 12/19/2023 1358 Local . 01 Electronically signed: . Kelley Robledo MD, Pathologist NPI- [id number] . 01 Gross description: . SIGMOID POLYP: Received in formalin are 3 fragment(s) of hercules, soft tissue measuring 0.2 x 0.1 x 0.1 cm to 0.3 x 0.3 x 0.3 cm submitted entirely in 1 cassette(s) /AKSHAT 12/18/2023 2229 Local . 01 Pathologist provided ICD-10: D12.5 . 01 CPT . 928288 Specimen Comment: A courtesy copy of this report has been sent to [phone] Performed at: 01 [facility] [address] [place] [address], [place], [place] [id number] MD Gerson Wasserman MD Phone: [phone]
--- NOTE | 2023-12-17 09:41 | P.HP_ITS ---
History of Present Illness History of Present Illness Date Patient Seen: 12/17/23 Time Patient Seen: 09:41 Chief complaint: Colonoscopy Narrative: Here for repeat flexible sigmoidoscopy for polyp removal in the sigmoid. Last colonoscopy was May 2023. [facility] Medical History Facet arthropathy, lumbar Gait instability Spondylolisthesis at L5-S1 level Non-seasonal allergic rhinitis Hyperlipidemia Snoring Obstructive sleep apnea, adult (~06/2021) Obesity (BMI 30-39.9) Essential hypertension Stroke due to intracerebral hemorrhage Fibromyalgia Negro esophagus Smoking Hypertension Hyperlipidemia Arthritis Surgical History Hx of brain surgery History of hernia repair (~2005) History of varicose vein stripping (~1995) History of cholecystectomy (~1979) Hx of appendectomy (~1967) Social History household members: spouse Smoking Status: Former smoker alcohol intake: current Meds Home Medications and Allergies Home Medications Medication Instructions Recorded Confirmed Type cyclobenzaprine 10 mg tablet 10 mg PO BEDTIME 01/23/20 12/17/23 History losartan 50 mg tablet 50 mg PO BID 01/23/20 12/17/23 History sennosides 8.6 mg tablet (senna) 8.6 mg PO BEDTIME PRN Constipation 08/03/21 11/26/23 History acetaminophen 500 mg tablet 1,000 mg PO DAILY pain 11/28/21 12/17/23 History azelastine 137 mcg (0.1 %) nasal 2 spray intranasal BID 11/28/21 12/17/23 History spray aerosol calcium carbonate 200 mg calcium 200 mg PO BID 11/28/21 12/17/23 History (500 mg) chewable tablet (Tums) cholecalciferol (vitamin D3) 50 100 mcg PO DAILY 11/28/21 12/17/23 History mcg (2,000 unit) capsule docusate calcium 240 mg capsule 240 mg PO DAILY PRN Constipation 11/28/21 12/17/23 History famotidine 20 mg tablet (Acid 20 mg PO DAILY PRN Indigestion 11/28/21 12/17/23 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 release 24 hr (Kapspargo Sprinkle) mometasone 0.1 % topical solution 1 applic topical BID PRN Ear Wax 11/28/21 11/26/23 History oxycodone 5 mg tablet 5 mg PO DAILY PRN Pain, Moderate 11/28/21 12/17/23 History potassium citrate 250 100 ml PO PRN Hypokalemia 05/10/22 11/26/23 History pseudoephedrine HCl [Sudafed] 1 tab PO 3XD PRN Allergy Symptoms 05/10/22 12/17/23 History sildenafil 50 mg tablet 50 mg PO DAILY PRN Sexual Activity 05/10/22 11/26/23 History albuterol sulfate 90 mcg/actuation 2 puff inhalation .PRN 07/12/22 12/17/23 History aerosol inhaler fluticasone 100 mcg-salmeterol 50 1 inh inhalation BID 04/06/23 12/17/23 History mcg/dose blistr powdr for inhalation omeprazole 40 mg capsule,delayed 40 mg PO DAILY 04/06/23 12/17/23 History release tramadol 50 mg tablet 50 mg PO BID PRN Pain (Scale Score 09/03/23 12/17/23 Rx 7-10) #30 tabs rosuvastatin 40 mg tablet 40 mg PO DAILY 11/26/23 12/17/23 History Allergies Allergy/AdvReac Type Severity Reaction Status Date / Time amoxicillin [From Augmentin] AdvReac Unknown Nausea and Verified 12/17/23 09:06 vomiting aspirin AdvReac Unknown history of Verified 12/17/23 09:06 stroke clavulanic acid AdvReac Unknown Nausea and Verified 12/17/23 09:06 [From Augmentin] vomiting NSAIDS (Non-Steroidal AdvReac Unknown history of Verified 12/17/23 09:06 Anti-Inflamma stroke Review of Systems Review of Systems ROS: Yes All systems reviewed with the patient and are negative except as otherwise documented Exam Vital Signs (past 8 hours): - 12/17/23 09:17 Temperature 97.2 F L Pulse Rate 56 L Respiratory Rate 16 Blood Pressure 115/60 Pulse Oximetry 95 Oxygen Delivery Method Room Air Oxygen Delivery Method Room Air Const General: cooperative HENMT Head: normal to inspection Eyes General: appearance normal, both eyes and all related structures Neck Neck: normal visual inspection Chest Chest: normal inspection of the chest Resp Effort & Inspection: normal respiratory effort Cardio Rate: regular rate GI Inspection: normal to inspection Skin General: no rashes or lesions noted Neuro General: patient alert and patient awake Extrem General: normal to inspection and edema Psych Appearance: grossly normal Assessment & Plan Assessment & Plan narrative: 73-year-old male with a history of an adenomatous polyp in the sigmoid here for excision. Flexible sigmoidoscopy for probable snare polypectomy is pursued today.
--- NOTE | 2023-12-17 09:48 | PM.PREOP ---
Pre-operative Note Interval Note History & Physical reviewed/Exam performed by Physician: Yes Changes to H&P: No ASA Class (for procedural sedation): III
--- NOTE | 2023-12-17 10:05 | PM.OP.COLON ---
Operative Date/Time/Diagnoses Date of procedure: 12/17/23 Time of procedure: 10:06 Pre-op diagnosis: History of adenomatous sigmoid polyp Post-op diagnosis: same Procedure & Clinicians Study performed: Flexible sigmoidoscopy with hot snare polypectomy Same procedure as scheduled: Yes Indications: History of adenomatous sigmoid polyp Surgeon: Yunior Beal Procedure Notes SCOAP/Timeout: Done Procedure in detail: After the risks and benefits were explained, written and verbal informed consent was obtained. The patient was brought into the procedure room and placed into the left lateral decubitus position. Please see anesthesia note for sedation details. Digital rectal examination was accomplished. The scope was introduced into the patient and advanced under direct visualization to approximately splenic flexure or 50 cm from the anal verge. The scope was slowly withdrawn to carefully examine the mucosa for any defects or lesions. Comprehensive imaging was accomplished throughout the rectum including the dentate line. The colon was decompressed, the scope was then removed from the patient who tolerated the procedure well. Pediatric colonoscope Bowel prep adequate Scope withdrawal time: Not applicable Sedation minutes: 9 Complications: none Impression: The patient had grade 1-2 internal hemorrhoids. There was extensive diverticulosis as before. A pedunculated polyp was identified closer to about 22 cm from the anal verge. No significant additional pathology was appreciated in the left colon. The pedunculated perhaps 6-7 mm polyp was removed with hot snare. Endoscopic diagnosis 1. Sigmoid polyp 2. Diverticulosis 3. Grade 1-2 hemorrhoids Post-procedure Plan for aftercare: 1. Await histopathology. 2. Repeat colonoscopy in 5-7 years. Disposition: PACU
--- NOTE | 2023-12-17 10:40 | SUR.PHASEII ---
Assumed care. Patient denied pain. IV saline locked. Left message on spouse's phone for call back.
== END 2023-12-17 11:08 | disposition home or self-care (01) ==
PROVIDERS: PCP Internal Medicine; Referring Provider Internal Medicine Gastroenterology; Visit Provider Internal Medicine Gastroenterology
PROC: 0DJD8ZZ Inspection of Lower Intestinal Tract, Via Natural or Artificial Opening Endoscopic (ICD-10-PCS; CPT 45378; principal; 2023-12-17 09:30)
DX: Z09 Encounter for follow-up examination after completed treatment for conditions other than malignant neoplasm (principal); Z86.010 Personal history of colon polyps; K64.1 Second degree hemorrhoids; K57.30 Diverticulosis of large intestine without perforation or abscess without bleeding; J44.9 Chronic obstructive pulmonary disease, unspecified; G47.33 Obstructive sleep apnea (adult) (pediatric); I10 Essential (primary) hypertension; I69.311 Memory deficit following cerebral infarction; I69.354 Hemiplegia and hemiparesis following cerebral infarction affecting left non-dominant side; Z87.891 Personal history of nicotine dependence; E78.5 Hyperlipidemia, unspecified; E66.9 Obesity, unspecified; D12.5 Benign neoplasm of sigmoid colon
CPT/HCPCS: 45338; J2704

== ENCOUNTER → 2024-02-29 14:55 | Outpatient (CLI) | payer MEDICARE, OTHER, SELFPAY ==
[2024-02-29 15:40] LABS: Influenza A - CEPHEID Flu A NEGATIVE (NEGATIVE); Influenza B - CEPHEID Flu B NEGATIVE (NEGATIVE); Respiratory Syncytial Virus Negative (Negative)
[2024-02-29 17:26] LABS: COVID-19 CEPHEID 4-PLEX PCR Negative (Negative)
== END ==
PROVIDERS: PCP Internal Medicine; Visit Provider Physician Assistant Surgical
DX: R09.81 Nasal congestion (principal)
CPT/HCPCS: 0241U

== ENCOUNTER → 2024-02-29 15:18 | Outpatient (CLI) | payer MEDICARE, OTHER, SELFPAY ==
--- NOTE | 2024-02-29 15:21 | DI.RAD.S_ITS ---
PROCEDURE: XR CHEST 2V INDICATIONS: Cough, dyspnea with cough TECHNIQUE: 2 views of the chest were acquired. COMPARISON: None. FINDINGS: Surgical changes and devices: None. Lungs and pleura: Lungs are clear. No pleural effusions or pneumothorax. Mediastinum: Mediastinal contours are normal. Heart size is normal. Bones and chest wall: No suspicious bony abnormalities. Soft tissues appear unremarkable. IMPRESSION: Reduced inspiratory volume, causing crowding of the bronchovascular markings. No definite consolidative pneumonia. Dictated by: Josue Olivares M.D. on 02/29/2024 at 15:50 Approved by: Josue Olivares M.D. on 02/29/2024 at 15:51
== END ==
PROVIDERS: PCP Internal Medicine; Referring Provider Physician Assistant Surgical; Visit Provider Physician Assistant Surgical
DX: R05.9 Cough, unspecified (principal); R09.89 Other specified symptoms and signs involving the circulatory and respiratory systems; R09.81 Nasal congestion
CPT/HCPCS: 0241U; 71046

== ENCOUNTER → 2024-03-20 14:28 | Outpatient (CLI) | payer MEDICARE, OTHER, SELFPAY ==
--- NOTE | 2024-03-20 14:29 | DI.RAD.S_ITS ---
PROCEDURE: XR LUMBAR SPINE MIN 4V INDICATIONS: LOW BACK PAIN TECHNIQUE: 6 views of the lumbar spine were acquired, including bilateral oblique views. COMPARISON: [facility], , XR LUMBAR SPINE 2-3V, 07/14/2021, 15:31. FINDINGS: Bones: 5 nonrib-bearing vertebrae are present. Anterolisthesis of L5 on S1 measuring 0.7 cm. No vertebral body compression fractures. No suspicious bony lesions. Soft tissues: Overlying bowel gas pattern is normal. No suspicious soft tissue calcifications. Arterial vascular calcifications. Oblique images: L5 pars defect. IMPRESSION: Grade 1 anterolisthesis of L5 on S1. Similar. Dictated by: Marvin Manrique M.D. on 03/20/2024 at 21:15 Approved by: Marvin Manrique M.D. on 03/20/2024 at 21:19
== END ==
PROVIDERS: PCP Internal Medicine; Referring Provider Physical Medicine & Rehabilitation; Visit Provider Physical Medicine & Rehabilitation
DX: M47.816 Spondylosis without myelopathy or radiculopathy, lumbar region (principal); M43.16 Spondylolisthesis, lumbar region
CPT/HCPCS: 72110

== ENCOUNTER 2024-04-22 12:34 | Outpatient (CLI) | payer MEDICARE, OTHER, SELFPAY ==
[2024-04-22] VITALS (9 sets, daily range): BP systolic 102–143; BP diastolic 59–83; PULSE 50–56; RESP 16–24; TEMP 36.1; O2SAT 94–98
--- NOTE | 2024-04-22 13:00 | DI.RAD.S_ITS ---
PROCEDURE: PAIN L INTERLAMINAR/CAUDAL INJ INDICATIONS: para left L5-S1 translaminar SABRINA COMPARISON: [facility], CR, XR LUMBAR SPINE MIN 4V, 03/20/2024, 14:32. FINDINGS: Fluoroscopic spot filming was performed to verify placement of spinal needles at the L5-S1 level(s), as labeled on the films. Appropriate location(s) of the needle tip(s) was confirmed by injection of iodinated contrast. IMPRESSION: Fluoroscopy for pain management. Dictated by: Eduard Marcus M.D. on 04/22/2024 at 17:05 Approved by: Eduard Marcus M.D. on 04/22/2024 at 17:06
[2024-04-22] MEDS: MIDAZOLAM 2 MG/2 ML VIAL 1 MG IV (13:21)
[2024-04-22] MEDS: iopamidoL 15 ML VIAL 3 ML INJ (13:27)
[2024-04-22] MEDS: BETAMETHASONE 30 MG/5 ML MDV 6 MG INJ (13:27)
[2024-04-22] MEDS: BUPIVACAINE 0.25% (PF) VIAL 2 ML INJ (13:27)
[2024-04-22] MEDS: DEXAMETHASONE 10 MG/ML VIAL INJ (13:28)
--- NOTE | 2024-04-22 13:34 | P.PCN_ITS ---
Date/Time/Diagnoses Date of procedure: 04/22/24 Time of procedure: 13:34 Pre-procedure diagnosis: 1. HNP WITH RADICULAR FEATURES, 2. MULTILEVEL CENTRAL STENOSIS, Post-procedure diagnosis: same Procedure Notes Procedure: 1. FLUOROSCOPICALLY GUIDED CONTRAST CONTROLLED INTERLAMINAR EPIDURAL STEROID INJECTION - L5/S1 Indications: Gerd is referred by Dr. Cortes for treatment of Bilateral Foraminal Stenosis L>R LE symptoms. Physician: Leon Maravilla Total Fluoroscopy time (seconds): 7 Total sedation minutes: 10 Complications: none Procedure in detail & Post-procedure care: FINDINGS Multilevel Central Spinal Stenosis with Nerve Root Compression DESCRIPTION OF PROCEDURE Fluoroscopically guided, contrast-controlled L5/S1 translaminar epidural steroid injection. Following review of allergy and review of potential side effects and complications, including, but not necessarily limited to, infection, allergic reaction, local tissue breakdown, temporary as well as permanent nerve injury, paralysis, stroke and possible , the patient indicated that the patient understood and agreed to proceed. An informed consent document was signed by the patient, witnessed by a nurse, and placed in the patient's chart. Additionally, other treatment options including modalities, medications, and physical therapy were reviewed with the patient. After review of previous anaesthesic history and IV conscious sedation the patient was deemed safe to proceed with today?s procedure with IV conscious sedation as ASA class II designation. Safety time-out was performed to confirm patient ID, procedure to be performed and site of procedure. IV sedation was accomplished with a combination of 1mg of Versed administered by the RN after DO order, titrated to patient comfort during the course of the procedure while the patient remained responsive to all verbal commands. In the prone position, following sterile prep and drape of the lumbar region, the L5/S1 translaminar space was identified fluoroscopically. The skin was anesthetized via a 25-gauge, 1.5-inch needle with 1% lidocaine solution. At this point, a 22-gauge short bevel spinal needle was atraumatically introduced a nd advanced under fluoroscopic guidance into the region of the L5/S1 translaminar space. Depth was confirmed on lateral view. Radiological data, including multiple fluoroscopic views of the lumbar spine, reveal a spinal needle at the L5/S1 translaminar space. Lateral views then show placement of the needle in the epidural space. Subsequent views show contrast material flowing superiorly and inferiorly in the epidural space. No vascular or intrathecal uptake is observed. At this point, using loss of resistance technique with saline and air, the epidural space was entered. This was confirmed following negative aspiration with injection of approximately 1.5cc of Isovue 200, showing excellent epidural flow without vascular or intrathecal uptake. At this point, 1 cc of 1% lidocaine solution combined with 2cc or 10mg of dexamethasone and 6mg of betamethasone was injected without incident. The patent tolerated the procedure without signs of symptoms of complications prior to transfer to the recovery area for further monitoring. The patient was then transferred to the recovery area where they were observed for an appropriate period of time after the injection. The patient reported a VAS score of 6 prior to the procedure and a post-procedure VAS of 0. POST OP INSTRUCTIONS The patient was provided a Pain Log to continue to record their response to the target-specific procedure prior to follow-up visit with their referring physician. Additionally, specific post-injection care instructions and a contact number to our office were provided if concerns arise regarding possible complications associated with the procedure are suspected.
== END 2024-04-22 13:59 | disposition home or self-care (01) ==
PROVIDERS: PCP Internal Medicine; Referring Provider Physical Medicine & Rehabilitation; Visit Provider Physical Medicine & Rehabilitation
DX: M51.17 Intervertebral disc disorders with radiculopathy, lumbosacral region (principal); M48.07 Spinal stenosis, lumbosacral region
CPT/HCPCS: 62323; 99152; J0702; J1100; J2250; J3490

== ENCOUNTER → 2024-05-16 09:58 | Outpatient (CLI) | payer MEDICARE, OTHER, SELFPAY ==
--- NOTE | 2024-05-16 10:00 | DI.US.S_ITS ---
PROCEDURE: US THYROID INDICATIONS: MULTIPLE THYROID NODULES/SCREENING TECHNIQUE: Real-time scanning was performed of the thyroid gland, with image documentation. COMPARISON: [facility], [place], US THYROID, 05/03/2023, 10:25. [facility], [place], [place] THYROID, 06/28/2023, 14:44. FINDINGS: Thyroid: Right lobe measures 3.6 x 2.0 x 2.2 cm. Left lobe measures 4.1 x 2.8 x 2.0 cm. Isthmus is 4 cm thick. Echotexture is homogeneous. Nodule number: 1 Location: Right inferior Size: 1.0 x 0.9 x 0.6 cm compared to 0.7 x 0.6 x 1.0 cm cm. Composition: Solid Echogenicity: Hypoechoic Shape: wider than tall. Margins: Smooth Echogenic foci: None Total points: 4 ACR TI-RADS category: 4 Nodule number: 2 Location: Left mid Size: 2.1 x 1.8 x 1.9 cm compared to 2.4 x 1.7 x 1.9 cm. Composition: Solid Echogenicity: Hypoechoic Shape: wider than tall. Margins: Smooth Echogenic foci: Punctate Total points: 7 ACR TI-RADS category: 5 Nodule number: 3 Location: Left inferior Size: 0.9 x 0.9 x 0.7 cm compared to 0.8 x 0.6 x 0.9 cm. Composition: Solid Echogenicity: Hypoechoic Shape: wider than tall. Margins: Smooth Echogenic foci: Macrocalcification Total points: 5 ACR TI-RADS category: 4 IMPRESSION: Lesions 1 is considered category 4 and stable. Recommend annual follow-up up to 5 years from initial visualization. Lesion 2 is stable category 5. Given size FNA is recommended. Lesion 3 is considered category 4. Calcification is felt to be macro calcification rather than punctate based on appearance on today's exam. Annual follow-up for 5 years is recommended. ACR TI-RADS definitions and recommendations: TI-RADS 1 (benign): 0 points. FNA not needed. TI-RADS 2 (not suspicious): 2 points. FNA not needed. TI-RADS 3 (mildly suspicious): 3 points. * FNA if 2.5 cm or larger, follow up if 1.5 cm or larger (at 1, 3, and 5 years). TI-RADS 4 (moderately suspicious): 4-6 points. * FNA if 1.5 cm or larger, follow up if 1 cm or larger (at 1, 2, 3, and 5 years). TI-RADS 5 (highly suspicious): 7 points or more. * FNA if 1 cm or larger, follow up if 0.5 cm or larger (every year for 5 years). Dictated by: Mikala Balbuena M.D. on 05/16/2024 at 14:06 Approved by: Mikala Balbuena M.D. on 05/16/2024 at 14:11
--- NOTE | 2024-05-16 10:00 | DI.CT.S_ITS ---
PROCEDURE: CT LUNG LOW DOSE SCREENING INDICATIONS: hx of smoking/screening TECHNIQUE: Noncontrast 2.0-2.5 mm thick sections acquired from the pulmonary apices to the posterior costophrenic angles. 7 mm thick axial MIP, and 5 mm coronal and sagittal reformats were then acquired. For radiation dose reduction, the following was used: automated exposure control, adjustment of mA and/or kV according to patient size. COMPARISON: Outside Film, CT, CT LOW DOSE LUNG CA SCREENING, 04/20/2021, 12:45. FINDINGS: Image quality: Diagnostic. Study limited by moderate respiratory motion artifact. Lower Neck: No enlarged lymph nodes. Thyroid: No thyroid nodules which require sonographic follow up, per consensus guidelines. Axillae: No enlarged lymph nodes. Chest Wall: Unremarkable. Bones: Visualized osseous structures appear intact without acute fracture or focal destructive lesion. No acute compression fractures of the imaged spine. Lungs and Pleura: No pneumothorax or pleural effusions. No focal consolidation. No new suspicious or enlarging pulmonary nodules identified. Bibasilar atelectasis. Redemonstration of moderate upper lobe predominant centrilobular and paraseptal pulmonary emphysematous changes. No septal thickening or nodularity. Heart: Heart size is normal. No pericardial effusion. Coronary atherosclerotic vascular calcifications are noted. Thoracic Vessels: There is mild dilatation/ectasia of the ascending thoracic aorta measuring approximately 4.5 x 4.2 cm in axial cross-sectional dimension. Mediastinum and Alexa: No enlarged lymph nodes. Esophagus: No wall thickening. No hiatal hernia. Upper Abdomen: Visualized upper abdomen solid organs and bowel loops appear normal. IMPRESSION: No suspicious pulmonary nodules. LUNG-RADS 1; continued annual screening, if eligible. Clinically Significant Non-pulmonary Findings: Atherosclerosis. Ascending thoracic aortic dilatation/ectasia measuring 4.5 x 4.2 cm in size. Moderate upper lobe predominant pulmonary emphysematous changes. Dictated by: Raciel Woods M.D. on 05/16/2024 at 19:31 Approved by: Raciel Woods M.D. on 05/16/2024 at 19:45
== END ==
LOC: CT 09:59
PROVIDERS: Family Provider Physical Medicine & Rehabilitation; PCP Internal Medicine; Referring Provider Internal Medicine; Visit Provider Internal Medicine
DX: Z12.2 Encounter for screening for malignant neoplasm of respiratory organs (principal); Z87.891 Personal history of nicotine dependence; E04.2 Nontoxic multinodular goiter; I25.10 Atherosclerotic heart disease of native coronary artery without angina pectoris; I77.810 Thoracic aortic ectasia
CPT/HCPCS: 71271; 76536

== ENCOUNTER 2024-07-11 11:15 | Outpatient (RCR) | payer MEDICARE, OTHER, SELFPAY ==
--- NOTE | 2024-06-20 12:43 | PT.OIE ---
Current Diagnoses Stiffness of other specified joint, not elsewhere classified (06/20/24) Spondylolisthesis, lumbosacral region (06/20/24) Spondylosis without myelopathy or radiculopathy, lumbar region (06/20/24) Past Medical History (Last Reviewed 03/26/24 @ 11:19 by Leon Maravilla DO) Arthritis Negro esophagus Essential hypertension Facet arthropathy, lumbar Fibromyalgia Gait instability Hyperlipidemia Hyperlipidemia Hypertension Non-seasonal allergic rhinitis Obesity (BMI 30-39.9) Obstructive sleep apnea, adult (~06/2021) Smoking Snoring Spondylolisthesis at L5-S1 level Stroke due to intracerebral hemorrhage Past Surgical History (Last Reviewed 03/26/24 @ 11:19 by Leon Maravilla DO) History of cholecystectomy (~1979) History of hernia repair (~2005) History of varicose vein stripping (~1995) Hx of appendectomy (~1967) Hx of brain surgery Visit Care Team Role Provider Type Yesy Cortes MD Primary Care Provider Physician Specialty: Internal Medicine Address: [place], [address] Email: Leon Maravilla DO Attending Provider Physician Family Provider Referring Provider Specialty: Interventional Radiology Physiatry Pain Management Address: [facility] [facility], [place], [address] Email: [email or web address] Physical Therapy Initial Evaluation PT-OP-A Visit Information Start: 06/20/24 12:07 Freq: Status: Active Protocol: Document 06/20/24 11:15 DCW (Rec: 06/20/24 12:35 [facility] [id number]) Out-Patient Physical Therapy Visit Information Visit Information Visit Type Initial Evaluation Visit Start Time 11:15 Visit Stop Time 12:00 Visit Number 1 Number of LICENSED PSYCHOLOGIST MANAGER Visits 0 Evaluation Information Evaluation Date 06/20/24 PT-OP-B Current Condition Start: 06/20/24 12:07 Freq: Status: Active Protocol: Document 06/20/24 11:15 DCW (Rec: 06/20/24 12:35 DC [id number]) Current Condition History of Current Condition Current Complaints Back pain, stiffness in morning, soft tissue tightness History of Current Condition Pt is a 74 year old male presenting with a long- standing history of low back pain with stiffness and decreased mobility. 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 Was last seen . Pt continues to mainly mobilize using a w/c, but gets up and walks with a walker independently for ~1/8 of a mile daily, and once a week walks 1/4 mile /s an AD with support from his caregiver. Has continued to work on strengthening and LE/UE mobility over the past 2.5 years. Pt has been getting seen by pain management due to worsening back pain. Has received epidurals, which last a few months, but then pain returns. Pt reports pain is worst in the morning when first getting up, as he gets around and moves, pain greatly lessens. Pt reports he has been diagnosed with arthritis and stenosis. 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 Notes occasional radicular pain in legs, as well as cramping in his calves during the night PT-OP-C Subjective Start: 06/20/24 12:07 Freq: Status: Active Protocol: Document 06/20/24 11:15 DCW (Rec: 06/20/24 12:35 DCW [id number]) OP-PT Subjective Patient Comments Patient Comments Pt admits he is fairly happy with his current level of function five years s/o intraparenchymal hemorrhage. PT-OP-F Manual Assessment Start: 06/20/24 12:07 Freq: Status: Active Protocol: Document 06/20/24 11:15 DCW (Rec: 06/20/24 12:35 DCW [id number]) Manual Assessments Soft Tissue Assessment Soft Tissue Mobility Assessment Moderate tone bilaterl calves, moderate-severe hip flexors, lumbar paraspinals Joint Mobility Assessment Joint Mobility Assessment Lumbar hypomobility, significant vertebral stiffness with ROM and joint mobilization PT-OP-G Mobility & Gait Start: 06/20/24 12:07 Freq: Status: Active Protocol: Document 06/20/24 11:15 DCW (Rec: 06/20/24 12:35 DCW [id number]) OP Gait Assessment Comments Gait Comments Pt demonstrates AD-free gait, lateral flexion bilaterally, decreased stride length. Pt exhibits trunk and hip flexion throughout entire gait process. PT-OP-K Range of Motion Start: 06/20/24 12:07 Freq: Status: Active Protocol: Document 06/20/24 11:15 DCW (Rec: 06/20/24 12:35 DCW [id number]) Lumbar Spine Range of Motion Lumbar Spine Active Degrees Testing Position Standing Flexion 43 Extension 2 ROM Limitations Soft Tissue Tightness,Bony Restriction,Muscle Weakness, Pain PT-OP-L Special Tests Start: 06/20/24 12:07 Freq: Status: Active Protocol: Document 06/20/24 11:15 DCW (Rec: 06/20/24 12:35 DCW [id number]) Special Tests Lumbar Spine Special Tests Straight Leg Raise Test Results Hamstring tightness 43? R, 56? L Slump Test Results Hamstring tightness bilaterally Compression Test Results Negative Manual Traction Test Results c/o pain/tightness in hips PT-OP-M Strength Start: 06/20/24 12:07 Freq: Status: Active Protocol: Document 06/20/24 11:15 DCW (Rec: 06/20/24 12:35 DCW [id number]) Hip Strength Hip Manual Muscle Testing Right Flexion (L2) 4+ Good+ Extension (S1) 4+ Good+ Abduction 4+ Good+ Adduction 4+ Good+ External Rotation 5 Normal Internal Rotation 5 Normal Left Flexion (L2) 4- Good- Extension (S1) 4 Good Abduction 3+ Fair+ Adduction 4 Good External Rotation 4- Good- Internal Rotation 4- Good- Knee Strength Knee Manual Muscle Testing Right Flexion (S2) 4+ Good+ Extension (L3) 4+ Good+ Left Flexion (S2) 4 Good Extension (L3) 4 Good Ankle/Foot Strength Ankle and Foot Manual Muscle Testing Right Dorsiflexion (L4) 5 Normal Left Dorsiflexion (L4) 4- Good- PT-OP-Q Treatments Start: 06/20/24 12:07 Freq: Status: Active Protocol: Document 06/20/24 11:15 DCW (Rec: 06/20/24 12:35 DCW [id number]) Therapeutic Exercises Supine Exercises Hip Flexors Supine Exercise Name Hip Flexor stretch - leg off table Side bilateral Comments HEP Marching Supine Exercise Name PPT /c core contraction - supine marching Comments HEP PPT Supine Exercise Name PPT /c core contraction Reps/Minutes 5 hold Comments HEP PT-OP-T Assessment and Plan Start: 06/20/24 12:07 Freq: Status: Active Protocol: Document 06/20/24 11:15 DCW (Rec: 06/20/24 12:43 DCW [id number]) Physical Therapy Assessment Rehab Potential Rehabilitation Potential Good Evaluation Complexity Number of Personal Factors/Comorbidities 3 or More Number of Body Systems Impaired 4 or More Clinical Presentation at Evaluation Unstable Impairments Impairments Activity Tolerance,Functional Activities,Functional Mobility ,Gait,Pain,Posture,ROM,Soft Tissue Mobility,Strength,Tone Goals Three Impairment Pt fatigues with ambulating >1 /4 mile without an assistive device Channel Development Director Goal (LTG) PT to report increased tolerance to gait without an assistive device to at least 1 /2 mile with improvement in core strength and bracing ability. LTG Duration 09/18/24 Two Impairment Limitations in lumbar ROM with flexion (43?) and extension ( 2?) Channel Development Director Goal (LTG) Pt to exhibit improvement in lumbar mobility to >55? flexion and 10? extension in order to demonstrate increased lumbar mobility, increasing ability to learning services coordinator an upright posture. 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 Rehab potential complicated by prior history of CVA and gait instability. Pt exhibits increased tone/ muscle tightness along low back and hips. Pt will likely benefit from skilled therapy focusing on core and LE strengthening, lumbar mobility , STM, joint mobilizations, posture training, and improved activity tolerance. Physical Therapy Plan Frequency and Duration Frequency of Treatment 2x/Week Plan of Care Start Date 06/20/24 Plan of Care End Date 09/18/24 Therapeutic Interventions Therapeutic Interventions Balance Training,Gait Training ,Home Exercise Program,Joint Mobilizations,Manual Therapy, Neuromuscular Re-education, Patient/Caregiver Education, Self-Care/Home Management,Soft Tissue Mobilization, Therapeutic Activities, Therapeutic Exercises Modalities Cold Pack/Ice Massage,Hot Packs Next Visit Focus/Plan Next Note Type Treatment Note Next Visit Plan Core/LE strengthening, posture training
--- NOTE | 2024-06-20 12:44 | PT.OPPOC ---
Physical, Occupational & Speech Therapy At [facility] Current Diagnoses Stiffness of other specified joint, not elsewhere classified (06/20/24) Spondylolisthesis, lumbosacral region (06/20/24) Spondylosis without myelopathy or radiculopathy, lumbar region (06/20/24) Visit Care Team Role Provider Type Yesy Cortes MD Primary Care Provider Physician Specialty: Internal Medicine Address: [place], [address] Email: Leon Maravilla DO Attending Provider Physician Family Provider Referring Provider Specialty: Interventional Radiology Physiatry Pain Management Address: [address], [place], [address] Email: [email or web address] Plan Of Care PT-OP-B Current Condition Start: 06/20/24 12:07 Freq: Status: Active Protocol: Document 06/20/24 11:15 DCW (Rec: 06/20/24 12:35 DCW [id number]) Current Condition History of Current Condition Current Complaints Back pain, stiffness in morning, soft tissue tightness History of Current Condition Pt is a 74 year old male presenting with a long- standing history of low back pain with stiffness and decreased mobility. 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 Was last seen . Pt continues to mainly mobilize using a w/c, but gets up and walks with a walker independently for ~1/8 of a mile daily, and once a week walks 1/4 mile /s an AD with support from his caregiver. Has continued to work on strengthening and LE/UE mobility over the past 2.5 years. Pt has been getting seen by pain management due to worsening back pain. Has received epidurals, which last a few months, but then pain returns. Pt reports pain is worst in the morning when first getting up, as he gets around and moves, pain greatly lessens. Pt reports he has been diagnosed with arthritis and stenosis. 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 Notes occasional radicular pain in legs, as well as cramping in his calves during the night PT-OP-T Assessment and Plan Start: 06/20/24 12:07 Freq: Status: Active Protocol: Document 06/20/24 11:15 DCW (Rec: 06/20/24 12:43 DCW [id number]) Physical Therapy Assessment Rehab Potential Rehabilitation Potential Good Evaluation Complexity Number of Personal Factors/Comorbidities 3 or More Number of Body Systems Impaired 4 or More Clinical Presentation at Evaluation Unstable Impairments Impairments Activity Tolerance,Functional Activities,Functional Mobility ,Gait,Pain,Posture,ROM,Soft Tissue Mobility,Strength,Tone Goals Three Impairment Pt fatigues with ambulating >1 /4 mile without an assistive device Service Station Equipment Mechanic Goal (LTG) PT to report increased tolerance to gait without an assistive device to at least 1 /2 mile with improvement in core strength and bracing ability. LTG Duration 09/18/24 Two Impairment Limitations in lumbar ROM with flexion (43?) and extension ( 2?) Service Station Equipment Mechanic Goal (LTG) Pt to exhibit improvement in lumbar mobility to >55? flexion and 10? extension in order to demonstrate increased lumbar mobility, increasing ability to bark grinder an upright posture. 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 Rehab potential complicated by prior history of CVA and gait instability. Pt exhibits increased tone/ muscle tightness along low back and hips. Pt will likely benefit from skilled therapy focusing on core and LE strengthening, lumbar mobility , STM, joint mobilizations, posture training, and improved activity tolerance. Physical Therapy Plan Frequency and Duration Frequency of Treatment 2x/Week Plan of Care Start Date 06/20/24 Plan of Care End Date 09/18/24 Therapeutic Interventions Therapeutic Interventions Balance Training,Gait Training ,Home Exercise Program,Joint Mobilizations,Manual Therapy, Neuromuscular Re-education, Patient/Caregiver Education, Self-Care/Home Management,Soft Tissue Mobilization, Therapeutic Activities, Therapeutic Exercises Modalities Cold Pack/Ice Massage,Hot Packs Next Visit Focus/Plan Next Note Type Treatment Note Next Visit Plan Core/LE strengthening, posture training Plan of Care Dates Plan of Care Start Date 06/20/24 Plan of Care End Date 09/18/24 Electronically Signed by: Osbaldo Barrios, JASMYN 06/20/24 0614 If you are in agreement with this Plan of Care, please return a signed and dated copy. I have reviewed this Plan of Care and certify that the skilled therapy services above are required to meet the patient?s needs. Physician Signature Date Printed Name and Credentials Clinical Instructor Signature Printed Name and Credentials
--- NOTE | 2024-06-23 12:02 | PT.OTN ---
Current Diagnoses Stiffness of other specified joint, not elsewhere classified (06/23/24) Spondylolisthesis, lumbosacral region (06/23/24) Spondylosis without myelopathy or radiculopathy, lumbar region (06/23/24) Physical Therapy Treatment Note PT-OP-A Visit Information Start: 06/20/24 12:07 Freq: Status: Active Protocol: Document 06/23/24 11:17 DCW (Rec: 06/23/24 12:02 DCW [id number]) Out-Patient Physical Therapy Visit Information Visit Information Visit Type Treatment Note Visit Start Time 11:17 Visit Stop Time 12:00 Visit Number 2 Number of MEDICAL CASH POSTER Visits 0 Evaluation Information Evaluation Date 06/20/24 PT-OP-B Current Condition Start: 06/20/24 12:07 Freq: Status: Active Protocol: Document 06/20/24 11:15 DCW (Rec: 06/20/24 12:35 DCW [id number]) Current Condition History of Current Condition Current Complaints Back pain, stiffness in morning, soft tissue tightness History of Current Condition Pt is a 74 year old male presenting with a long- standing history of low back pain with stiffness and decreased mobility. 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 Was last seen . Pt continues to mainly mobilize using a w/c, but gets up and walks with a walker independently for ~1/8 of a mile daily, and once a week walks 1/4 mile /s an AD with support from his caregiver. Has continued to work on strengthening and LE/UE mobility over the past 2.5 years. Pt has been getting seen by pain management due to worsening back pain. Has received epidurals, which last a few months, but then pain returns. Pt reports pain is worst in the morning when first getting up, as he gets around and moves, pain greatly lessens. Pt reports he has been diagnosed with arthritis and stenosis. 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 Notes occasional radicular pain in legs, as well as cramping in his calves during the night PT-OP-C Subjective Start: 06/20/24 12:07 Freq: Status: Active Protocol: Document 06/23/24 11:17 DCW (Rec: 06/23/24 12:02 DCW [id number]) OP-PT Subjective Patient Comments Patient Comments Pt feeling alright today, is a little sore PT-OP-F Manual Assessment Start: 06/20/24 12:07 Freq: Status: Active Protocol: Document 06/20/24 11:15 DCW (Rec: 06/20/24 12:35 DCW [id number]) Manual Assessments Soft Tissue Assessment Soft Tissue Mobility Assessment Moderate tone bilaterl calves, moderate-severe hip flexors, lumbar paraspinals Joint Mobility Assessment Joint Mobility Assessment Lumbar hypomobility, significant vertebral stiffness with ROM and joint mobilization PT-OP-G Mobility & Gait Start: 06/20/24 12:07 Freq: Status: Active Protocol: Document 06/20/24 11:15 DCW (Rec: 06/20/24 12:35 DCW [id number]) OP Gait Assessment Comments Gait Comments Pt demonstrates AD-free gait, lateral flexion bilaterally, decreased stride length. Pt exhibits trunk and hip flexion throughout entire gait process. PT-OP-K Range of Motion Start: 06/20/24 12:07 Freq: Status: Active Protocol: Document 06/20/24 11:15 DCW (Rec: 06/20/24 12:35 DCW [id number]) Lumbar Spine Range of Motion Lumbar Spine Active Degrees Testing Position Standing Flexion 43 Extension 2 ROM Limitations Soft Tissue Tightness,Bony Restriction,Muscle Weakness, Pain PT-OP-L Special Tests Start: 06/20/24 12:07 Freq: Status: Active Protocol: Document 06/20/24 11:15 DCW (Rec: 06/20/24 12:35 DCW [id number]) Special Tests Lumbar Spine Special Tests Straight Leg Raise Test Results Hamstring tightness 43? R, 56? L Slump Test Results Hamstring tightness bilaterally Compression Test Results Negative Manual Traction Test Results c/o pain/tightness in hips PT-OP-M Strength Start: 06/20/24 12:07 Freq: Status: Active Protocol: Document 06/20/24 11:15 DCW (Rec: 06/20/24 12:35 DCW [id number]) Hip Strength Hip Manual Muscle Testing Right Flexion (L2) 4+ Good+ Extension (S1) 4+ Good+ Abduction 4+ Good+ Adduction 4+ Good+ External Rotation 5 Normal Internal Rotation 5 Normal Left Flexion (L2) 4- Good- Extension (S1) 4 Good Abduction 3+ Fair+ Adduction 4 Good External Rotation 4- Good- Internal Rotation 4- Good- Knee Strength Knee Manual Muscle Testing Right Flexion (S2) 4+ Good+ Extension (L3) 4+ Good+ Left Flexion (S2) 4 Good Extension (L3) 4 Good Ankle/Foot Strength Ankle and Foot Manual Muscle Testing Right Dorsiflexion (L4) 5 Normal Left Dorsiflexion (L4) 4- Good- PT-OP-Q Treatments Start: 06/20/24 12:07 Freq: Status: Active Protocol: Document 06/23/24 11:17 DCW (Rec: 06/23/24 12:02 DCW [id number]) Gym Equipment Therapeutic Ball LTR Exercise Details LTR Ball Size/Color Red - 55 cm Body Position Supine Pelvic Circles Exercise Details Pelvic Circles Ball Size/Color Green - 65 cm Body Position Sitting Therapeutic Exercises Supine Exercises Marching Supine Exercise Name PPT /c core contraction - supine marching Comments HEP PPT Supine Exercise Name PPT /c core contraction Reps/Minutes 5 hold Comments HEP Sidelying Exercises Clamshell Sidelying Exercise Name Clamshell Side bilateral Open Book Sidelying Exercise Name Open Book Side bilateral Standing Exercises Pallof Press Standing Exercise Name Pallof Press Side bilateral Resistance Green Manual Therapy Treatment Soft Tissue Mobilization Lumbar paraspinals Body Location Lumbar paraspinals Mobilization Type Strumming,Sustained Pressure Body Position Sidelying PT-OP-T Assessment and Plan Start: 06/20/24 12:07 Freq: Status: Active Protocol: Document 06/23/24 11:17 DCW (Rec: 06/23/24 12:02 [facility] [id number]) Physical Therapy Assessment Impairments Impairments Activity Tolerance,Functional Activities,Functional Mobility ,Gait,Pain,Posture,ROM,Soft Tissue Mobility,Strength,Tone Goals Three Impairment Pt fatigues with ambulating >1 /4 mile without an assistive device Metal Furniture Polisher Goal (LTG) Pt to report increased tolerance to gait without an assistive device to at least 1 /2 mile with improvement in core strength and bracing ability. LTG Duration 09/18/24 Two Impairment Limitations in lumbar ROM with flexion (43?) and extension ( 2?) Care Home Goal (LTG) Pt to exhibit improvement in lumbar mobility to >55? flexion and 10? 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 LTG Duration 09/18/24 One Impairment Pt does not have an appropriate home exercise program Short Term Goal (STG) Pt to be independent and compliant with an appropriate HEP STG Duration 07/21/24 Assessment Summary Assessment Good response to treatment today, pt does need repeated cues and instructions secondary to mild confusion and moderate left visual neglect s/p CVA. Pt provided with handout for open book and clamshells to help improve lumbar mobility and core stabilization. Physical Therapy Plan Frequency and Duration Frequency of Treatment 2x/Week Plan of Care Start Date 06/20/24 Plan of Care End Date 09/18/24 Therapeutic Interventions Therapeutic Interventions Balance Training,Gait Training ,Home Exercise Program,Joint Mobilizations,Manual Therapy, Neuromuscular Re-education, Patient/Caregiver Education, Self-Care/Home Management,Soft Tissue Mobilization, Therapeutic Activities, Therapeutic Exercises Modalities Cold Pack/Ice Massage,Hot Packs Next Visit Focus/Plan Next Note Type Treatment Note Next Visit Plan Core/LE strengthening, posture training
--- NOTE | 2024-07-03 12:03 | PT.OTN ---
Current Diagnoses Stiffness of other specified joint, not elsewhere classified (07/03/24) Spondylolisthesis, lumbosacral region (07/03/24) Spondylosis without myelopathy or radiculopathy, lumbar region (07/03/24) Physical Therapy Treatment Note PT-OP-A Visit Information Start: 06/20/24 12:07 Freq: Status: Active Protocol: Document 07/03/24 11:15 DCW (Rec: 07/03/24 12:02 DCW [id number]) Out-Patient Physical Therapy Visit Information Visit Information Visit Type Treatment Note Visit Start Time 11:15 Visit Stop Time 12:00 Visit Number 3 Number of INSTRUCTOR EXTENSION WORK Visits 0 Evaluation Information Evaluation Date 06/20/24 PT-OP-B Current Condition Start: 06/20/24 12:07 Freq: Status: Active Protocol: Document 06/20/24 11:15 DCW (Rec: 06/20/24 12:35 DCW [id number]) Current Condition History of Current Condition Current Complaints Back pain, stiffness in morning, soft tissue tightness History of Current Condition Pt is a 74 year old male presenting with a long- standing history of low back pain with stiffness and decreased mobility. 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 Was last seen . Pt continues to mainly mobilize using a w/c, but gets up and walks with a walker independently for ~1/8 of a mile daily, and once a week walks 1/4 mile /s an AD with support from his caregiver. Has continued to work on strengthening and LE/UE mobility over the past 2.5 years. Pt has been getting seen by pain management due to worsening back pain. Has received epidurals, which last a few months, but then pain returns. Pt reports pain is worst in the morning when first getting up, as he gets around and moves, pain greatly lessens. Pt reports he has been diagnosed with arthritis and stenosis. 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 Notes occasional radicular pain in legs, as well as cramping in his calves during the night PT-OP-C Subjective Start: 06/20/24 12:07 Freq: Status: Active Protocol: Document 07/03/24 11:15 DCW (Rec: 07/03/24 12:02 DCW [id number]) OP-PT Subjective Patient Comments Patient Comments Pt admits he was in pain for a few days following his last visit. PT-OP-F Manual Assessment Start: 06/20/24 12:07 Freq: Status: Active Protocol: Document 06/20/24 11:15 DCW (Rec: 06/20/24 12:35 DCW [id number]) Manual Assessments Soft Tissue Assessment Soft Tissue Mobility Assessment Moderate tone bilaterl calves, moderate-severe hip flexors, lumbar paraspinals Joint Mobility Assessment Joint Mobility Assessment Lumbar hypomobility, significant vertebral stiffness with ROM and joint mobilization PT-OP-G Mobility & Gait Start: 06/20/24 12:07 Freq: Status: Active Protocol: Document 06/20/24 11:15 DCW (Rec: 06/20/24 12:35 DCW [id number]) OP Gait Assessment Comments Gait Comments Pt demonstrates AD-free gait, lateral flexion bilaterally, decreased stride length. Pt exhibits trunk and hip flexion throughout entire gait process. PT-OP-K Range of Motion Start: 06/20/24 12:07 Freq: Status: Active Protocol: Document 06/20/24 11:15 DCW (Rec: 06/20/24 12:35 DCW [id number]) Lumbar Spine Range of Motion Lumbar Spine Active Degrees Testing Position Standing Flexion 43 Extension 2 ROM Limitations Soft Tissue Tightness,Bony Restriction,Muscle Weakness, Pain PT-OP-L Special Tests Start: 06/20/24 12:07 Freq: Status: Active Protocol: Document 06/20/24 11:15 DCW (Rec: 06/20/24 12:35 DCW [id number]) Special Tests Lumbar Spine Special Tests Straight Leg Raise Test Results Hamstring tightness 43? R, 56? L Slump Test Results Hamstring tightness bilaterally Compression Test Results Negative Manual Traction Test Results c/o pain/tightness in hips PT-OP-M Strength Start: 06/20/24 12:07 Freq: Status: Active Protocol: Document 06/20/24 11:15 DCW (Rec: 06/20/24 12:35 DCW [id number]) Hip Strength Hip Manual Muscle Testing Right Flexion (L2) 4+ Good+ Extension (S1) 4+ Good+ Abduction 4+ Good+ Adduction 4+ Good+ External Rotation 5 Normal Internal Rotation 5 Normal Left Flexion (L2) 4- Good- Extension (S1) 4 Good Abduction 3+ Fair+ Adduction 4 Good External Rotation 4- Good- Internal Rotation 4- Good- Knee Strength Knee Manual Muscle Testing Right Flexion (S2) 4+ Good+ Extension (L3) 4+ Good+ Left Flexion (S2) 4 Good Extension (L3) 4 Good Ankle/Foot Strength Ankle and Foot Manual Muscle Testing Right Dorsiflexion (L4) 5 Normal Left Dorsiflexion (L4) 4- Good- PT-OP-Q Treatments Start: 06/20/24 12:07 Freq: Status: Active Protocol: Document 07/03/24 11:15 DCW (Rec: 07/03/24 12:02 DCW [id number]) Gym Equipment Therapeutic Ball Hip Flexion Exercise Details Resisted hip/knee flexion Ball Size/Color Red - 55 cm Lv 2 T-band Body Position Supine LTR Exercise Details LTR Ball Size/Color Red - 55 cm Body Position Supine Pelvic Circles Exercise Details Pelvic Circles Ball Size/Color Green - 65 cm Body Position Sitting Therapeutic Exercises Supine Exercises Hip Abduction Supine Exercise Name Hip Abduction in hooklying Side bilateral Resistance Lv 2 Bridging Supine Exercise Name Bridging /c adductor ball squeeze Manual Therapy Treatment Consent Patient gave verbal consent for manual Yes treatment Soft Tissue Mobilization Lumbar paraspinals Body Location Lumbar paraspinals Mobilization Type Strumming,Sustained Pressure Body Position Sidelying PT-OP-T Assessment and Plan Start: 06/20/24 12:07 Freq: Status: Active Protocol: Document 07/03/24 11:15 DCW (Rec: 07/03/24 12:02 DCW [id number]) Physical Therapy Assessment Impairments Impairments Activity Tolerance,Functional Activities,Functional Mobility ,Gait,Pain,Posture,ROM,Soft Tissue Mobility,Strength,Tone Goals Three Impairment Pt fatigues with ambulating >1 /4 mile without an assistive device [place] Goal (LTG) Pt to report increased tolerance to gait without an assistive device to at least 1 /2 mile with improvement in core strength and bracing ability. LTG Duration 09/18/24 Two Impairment Limitations in lumbar ROM with flexion (43?) and extension ( 2?) [place] Goal (LTG) Pt to exhibit improvement in lumbar mobility to >55? flexion and 10? 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 LTG Duration 09/18/24 One Impairment Pt does not have an appropriate home exercise program Short Term Goal (STG) Pt to be independent and compliant with an appropriate HEP STG Duration 07/21/24 Assessment Summary Assessment Pt showing some improvement with hip circles/tilts. Did well with addition of bridging , although required verbal cues to increase height of bridge. Physical Therapy Plan Frequency and Duration Frequency of Treatment 2x/Week Plan of Care Start Date 06/20/24 Plan of Care End Date 09/18/24 Therapeutic Interventions Therapeutic Interventions Balance Training,Gait Training ,Home Exercise Program,Joint Mobilizations,Manual Therapy, Neuromuscular Re-education, Patient/Caregiver Education, Self-Care/Home Management,Soft Tissue Mobilization, Therapeutic Activities, Therapeutic Exercises Modalities Cold Pack/Ice Massage,Hot Packs Next Visit Focus/Plan Next Note Type Treatment Note Next Visit Plan Core/LE strengthening, posture training
--- NOTE | 2024-07-11 11:57 | PT.OTN ---
Current Diagnoses Stiffness of other specified joint, not elsewhere classified (07/11/24) Spondylolisthesis, lumbosacral region (07/11/24) Spondylosis without myelopathy or radiculopathy, lumbar region (07/11/24) Physical Therapy Treatment Note PT-OP-A Visit Information Start: 06/20/24 12:07 Freq: Status: Active Protocol: Document 07/11/24 11:19 DCW (Rec: 07/11/24 11:57 DCW [id number]) Out-Patient Physical Therapy Visit Information Visit Information Visit Type Treatment Note Visit Start Time 11:19 Visit Stop Time 12:00 Visit Number 4 Number of APPLICATIONS CONSULTANT Visits 0 Evaluation Information Evaluation Date 06/20/24 PT-OP-B Current Condition Start: 06/20/24 12:07 Freq: Status: Active Protocol: Document 06/20/24 11:15 DCW (Rec: 06/20/24 12:35 DCW [id number]) Current Condition History of Current Condition Current Complaints Back pain, stiffness in morning, soft tissue tightness History of Current Condition Pt is a 74 year old male presenting with a long- standing history of low back pain with stiffness and decreased mobility. 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 Was last seen . Pt continues to mainly mobilize using a w/c, but gets up and walks with a walker independently for ~1/8 of a mile daily, and once a week walks 1/4 mile /s an AD with support from his caregiver. Has continued to work on strengthening and LE/UE mobility over the past 2.5 years. Pt has been getting seen by pain management due to worsening back pain. Has received epidurals, which last a few months, but then pain returns. Pt reports pain is worst in the morning when first getting up, as he gets around and moves, pain greatly lessens. Pt reports he has been diagnosed with arthritis and stenosis. 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 Notes occasional radicular pain in legs, as well as cramping in his calves during the night PT-OP-C Subjective Start: 06/20/24 12:07 Freq: Status: Active Protocol: Document 07/11/24 11:19 DCW (Rec: 07/11/24 11:57 DCW [id number]) OP-PT Subjective Patient Comments Patient Comments Pt feeling pretty good today, less sore following visit last week. PT-OP-F Manual Assessment Start: 06/20/24 12:07 Freq: Status: Active Protocol: Document 06/20/24 11:15 DCW (Rec: 06/20/24 12:35 DCW [id number]) Manual Assessments Soft Tissue Assessment Soft Tissue Mobility Assessment Moderate tone bilaterl calves, moderate-severe hip flexors, lumbar paraspinals Joint Mobility Assessment Joint Mobility Assessment Lumbar hypomobility, significant vertebral stiffness with ROM and joint mobilization PT-OP-G Mobility & Gait Start: 06/20/24 12:07 Freq: Status: Active Protocol: Document 06/20/24 11:15 DCW (Rec: 06/20/24 12:35 DCW [id number]) OP Gait Assessment Comments Gait Comments Pt demonstrates AD-free gait, lateral flexion bilaterally, decreased stride length. Pt exhibits trunk and hip flexion throughout entire gait process. PT-OP-K Range of Motion Start: 06/20/24 12:07 Freq: Status: Active Protocol: Document 06/20/24 11:15 DCW (Rec: 06/20/24 12:35 DCW [id number]) Lumbar Spine Range of Motion Lumbar Spine Active Degrees Testing Position Standing Flexion 43 Extension 2 ROM Limitations Soft Tissue Tightness,Bony Restriction,Muscle Weakness, Pain PT-OP-L Special Tests Start: 06/20/24 12:07 Freq: Status: Active Protocol: Document 06/20/24 11:15 DCW (Rec: 06/20/24 12:35 DCW [id number]) Special Tests Lumbar Spine Special Tests Straight Leg Raise Test Results Hamstring tightness 43? R, 56? L Slump Test Results Hamstring tightness bilaterally Compression Test Results Negative Manual Traction Test Results c/o pain/tightness in hips PT-OP-M Strength Start: 06/20/24 12:07 Freq: Status: Active Protocol: Document 06/20/24 11:15 DCW (Rec: 06/20/24 12:35 DCW [id number]) Hip Strength Hip Manual Muscle Testing Right Flexion (L2) 4+ Good+ Extension (S1) 4+ Good+ Abduction 4+ Good+ Adduction 4+ Good+ External Rotation 5 Normal Internal Rotation 5 Normal Left Flexion (L2) 4- Good- Extension (S1) 4 Good Abduction 3+ Fair+ Adduction 4 Good External Rotation 4- Good- Internal Rotation 4- Good- Knee Strength Knee Manual Muscle Testing Right Flexion (S2) 4+ Good+ Extension (L3) 4+ Good+ Left Flexion (S2) 4 Good Extension (L3) 4 Good Ankle/Foot Strength Ankle and Foot Manual Muscle Testing Right Dorsiflexion (L4) 5 Normal Left Dorsiflexion (L4) 4- Good- PT-OP-Q Treatments Start: 06/20/24 12:07 Freq: Status: Active Protocol: Document 07/11/24 11:19 DCW (Rec: 07/11/24 11:57 DCW [id number]) Gym Equipment Shuttle Recovery Unilateral Squats Details Left Resistance 37# Shuttle Recovery Platform Stable Bilateral Squats Resistance 100# Shuttle Recovery Platform Stable Reps/Time x50 Therapeutic Ball Bridging Exercise Details Bridging /c feet on ball Ball Size/Color Red - 55 cm LTR Exercise Details LTR Ball Size/Color Red - 55 cm Body Position Supine Pelvic Circles Exercise Details Pelvic Tilt/Circles Ball Size/Color Green - 65 cm Body Position Sitting Therapeutic Exercises Sitting Exercises Extension Sitting Exercise Name Resisted trunk extension Resistance Lv 3 Manual Therapy Treatment Soft Tissue Mobilization Lumbar paraspinals Body Location Lumbar paraspinals Mobilization Type Strumming,Sustained Pressure Body Position Sidelying PT-OP-T Assessment and Plan Start: 06/20/24 12:07 Freq: Status: Active Protocol: Document 07/11/24 11:19 DCW (Rec: 07/11/24 11:57 DCW [id number]) Physical Therapy Assessment Impairments Impairments Activity Tolerance,Functional Activities,Functional Mobility ,Gait,Pain,Posture,ROM,Soft Tissue Mobility,Strength,Tone Goals Three Impairment Pt fatigues with ambulating >1 /4 mile without an assistive device Skilled Nursing Goal (LTG) Pt to report increased tolerance to gait without an assistive device to at least 1 /2 mile with improvement in core strength and bracing ability. LTG Duration 09/18/24 Two Impairment Limitations in lumbar ROM with flexion (43?) and extension ( 2?) Wind Energy Project Manager Goal (LTG) Pt to exhibit improvement in lumbar mobility to >55? flexion and 10? 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 LTG Duration 09/18/24 One Impairment Pt does not have an appropriate home exercise program Short Term Goal (STG) Pt to be independent and compliant with an appropriate HEP STG Duration 07/21/24 Assessment Summary Assessment Pt tolerated well, showing improvement with trunk mobility, slight improvements in strength. Physical Therapy Plan Frequency and Duration Frequency of Treatment 2x/Week Plan of Care Start Date 06/20/24 Plan of Care End Date 09/18/24 Therapeutic Interventions Therapeutic Interventions Balance Training,Gait Training ,Home Exercise Program,Joint Mobilizations,Manual Therapy, Neuromuscular Re-education, Patient/Caregiver Education, Self-Care/Home Management,Soft Tissue Mobilization, Therapeutic Activities, Therapeutic Exercises Modalities Cold Pack/Ice Massage,Hot Packs Next Visit Focus/Plan Next Note Type Treatment Note Next Visit Plan Core/LE strengthening, posture training
--- NOTE | 2024-08-25 09:44 | PT.OPDS ---
Current Diagnoses Stiffness of other specified joint, not elsewhere classified (07/11/24) Spondylolisthesis, lumbosacral region (07/11/24) Spondylosis without myelopathy or radiculopathy, lumbar region (07/11/24) Visit Care Team Role Provider Type Yesy Cortes MD Primary Care Provider Physician Specialty: Internal Medicine Address: [place], [address] Email: Leon Maravilla DO Attending Provider Physician Family Provider Referring Provider Specialty: Interventional Radiology Physiatry Pain Management Address: [address], [place], [address] Email: [email or web address] Number Visit Number 4 Discharge Summary PT-OP-B Current Condition Start: 06/20/24 12:07 Freq: Status: Active Protocol: Document 06/20/24 11:15 DCW (Rec: 06/20/24 12:35 DCW [id number]) Current Condition History of Current Condition Current Complaints Back pain, stiffness in morning, soft tissue tightness History of Current Condition Pt is a 74 year old male presenting with a long- standing history of low back pain with stiffness and decreased mobility. 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 Was last seen . Pt continues to mainly mobilize using a w/c, but gets up and walks with a walker independently for ~1/8 of a mile daily, and once a week walks 1/4 mile /s an AD with support from his caregiver. Has continued to work on strengthening and LE/UE mobility over the past 2.5 years. Pt has been getting seen by pain management due to worsening back pain. Has received epidurals, which last a few months, but then pain returns. Pt reports pain is worst in the morning when first getting up, as he gets around and moves, pain greatly lessens. Pt reports he has been diagnosed with arthritis and stenosis. 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 Notes occasional radicular pain in legs, as well as cramping in his calves during the night PT-OP-C Subjective Start: 06/20/24 12:07 Freq: Status: Active Protocol: Document 07/11/24 11:19 DCW (Rec: 07/11/24 11:57 DCW [id number]) OP-PT Subjective Patient Comments Patient Comments Pt feeling pretty good today, less sore following visit last week. PT-OP-F Manual Assessment Start: 06/20/24 12:07 Freq: Status: Active Protocol: Document 06/20/24 11:15 DCW (Rec: 06/20/24 12:35 DCW [id number]) Manual Assessments Soft Tissue Assessment Soft Tissue Mobility Assessment Moderate tone bilaterl calves, moderate-severe hip flexors, lumbar paraspinals Joint Mobility Assessment Joint Mobility Assessment Lumbar hypomobility, significant vertebral stiffness with ROM and joint mobilization PT-OP-G Mobility & Gait Start: 06/20/24 12:07 Freq: Status: Active Protocol: Document 06/20/24 11:15 DCW (Rec: 06/20/24 12:35 DCW [id number]) OP Gait Assessment Comments Gait Comments Pt demonstrates AD-free gait, lateral flexion bilaterally, decreased stride length. Pt exhibits trunk and hip flexion throughout entire gait process. PT-OP-K Range of Motion Start: 06/20/24 12:07 Freq: Status: Active Protocol: Document 06/20/24 11:15 DCW (Rec: 06/20/24 12:35 DCW [id number]) Lumbar Spine Range of Motion Lumbar Spine Active Degrees Testing Position Standing Flexion 43 Extension 2 ROM Limitations Soft Tissue Tightness,Bony Restriction,Muscle Weakness, Pain PT-OP-L Special Tests Start: 06/20/24 12:07 Freq: Status: Active Protocol: Document 06/20/24 11:15 DCW (Rec: 06/20/24 12:35 DCW [id number]) Special Tests Lumbar Spine Special Tests Straight Leg Raise Test Results Hamstring tightness 43? R, 56? L Slump Test Results Hamstring tightness bilaterally Compression Test Results Negative Manual Traction Test Results c/o pain/tightness in hips PT-OP-M Strength Start: 06/20/24 12:07 Freq: Status: Active Protocol: Document 06/20/24 11:15 DCW (Rec: 06/20/24 12:35 DCW [id number]) Hip Strength Hip Manual Muscle Testing Right Flexion (L2) 4+ Good+ Extension (S1) 4+ Good+ Abduction 4+ Good+ Adduction 4+ Good+ External Rotation 5 Normal Internal Rotation 5 Normal Left Flexion (L2) 4- Good- Extension (S1) 4 Good Abduction 3+ Fair+ Adduction 4 Good External Rotation 4- Good- Internal Rotation 4- Good- Knee Strength Knee Manual Muscle Testing Right Flexion (S2) 4+ Good+ Extension (L3) 4+ Good+ Left Flexion (S2) 4 Good Extension (L3) 4 Good Ankle/Foot Strength Ankle and Foot Manual Muscle Testing Right Dorsiflexion (L4) 5 Normal Left Dorsiflexion (L4) 4- Good- PT-OP-T Assessment and Plan Start: 06/20/24 12:07 Freq: Status: Active Protocol: Document 08/25/24 09:42 DC (Rec: 08/25/24 09:44 [facility] [id number]) Physical Therapy Assessment Assessment Summary Assessment Pt hospitalized on 07/12/24 secondary to sudden left pneumothorax requiring placement of chest tube. Due to change in medical status, pt being discharged from skilled therapy. Will require new referral in order to return in the future. Physical Therapy Plan Discharge Physical Therapy Discharge Reasons Change in Medical Status
== END 2024-09-09 10:18 | disposition home or self-care (01) ==
LOC: PHYS 11:15
PROVIDERS: Family Provider Physical Medicine & Rehabilitation; PCP Internal Medicine; Referring Provider Physical Medicine & Rehabilitation; Visit Provider Physical Medicine & Rehabilitation
DX: M43.17 Spondylolisthesis, lumbosacral region (principal); M47.816 Spondylosis without myelopathy or radiculopathy, lumbar region; M25.69 Stiffness of other specified joint, not elsewhere classified
CPT/HCPCS: 97110; 97140; 97163

== ENCOUNTER 2024-07-12 20:23 | Inpatient (IN) | payer MEDICARE, OTHER, SELFPAY ==
[2024-07-12] VITALS (35 sets, daily range): BP systolic 107–203; BP diastolic 72–112; PULSE 73–105; RESP 17–38; TEMP 36.2–36.5; O2SAT 89–98; BMI 68.0
--- NOTE | 2024-07-12 20:27 | DI.RAD.S_ITS ---
PROCEDURE: XR CHEST 1V INDICATIONS: chest pain TECHNIQUE: One view of the chest was acquired. COMPARISON: [facility], CR, XR CHEST 2V, 02/29/2024, 14:28. FINDINGS: Surgical changes and devices: None. Lungs and pleura: Large left pneumothorax. Mediastinum: Mediastinal shift to the right. Bones and chest wall: No suspicious bony lesions. Overlying soft tissues appear unremarkable. IMPRESSION: Large left pneumothorax with mediastinal shift to the right. Findings discussed with Dr. Boss at the time of dictation. Dictated by: Paulo Pozo M.D. on 07/12/2024 at 20:48 Approved by: Paulo Pozo M.D. on 07/12/2024 at 20:51
--- NOTE | 2024-07-12 20:34 | EKG_ITS ---
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
--- NOTE | 2024-07-12 20:41 | ED_ITS ---
HPI - Chest Pain General Chief Complaint: Chest Pain Stated Complaint: sob, back and chest px Time Seen by Provider: 07/12/24 20:28 Source: patient and family Mode of arrival: Wheelchair Limitations: physical limitation History of Present Illness HPI narrative: 74-year-old male with history of previous CVA with residual left-sided weakness, COPD, hypertension, chronic lumbar back pain presents by private vehicle from home. Patient states that he was eating his anniversary dinner with his when he had a sudden onset of chest pain and shortness of breath. Did not improve at home and so he decided to present for evaluation. Patient noted to be in moderate distress on arrival with room oxygen saturations 89%. Related Data Home Medications Medication Instructions Recorded Confirmed cyclobenzaprine 10 mg tablet 10 mg PO BEDTIME 01/23/20 07/12/24 losartan 50 mg tablet 50 mg PO BID 01/23/20 07/12/24 sennosides 8.6 mg tablet (senna) 8.6 mg PO BEDTIME PRN Constipation 08/03/21 07/12/24 acetaminophen 500 mg tablet 1,000 mg PO DAILY pain 11/28/21 07/12/24 azelastine 137 mcg (0.1 %) nasal 2 spray intranasal BID 11/28/21 07/12/24 spray aerosol calcium carbonate (Tums) 200 mg PO BID PRN gerd 11/28/21 07/12/24 cholecalciferol (vitamin D3) 50 100 mcg PO DAILY 11/28/21 07/12/24 mcg (2,000 unit) capsule docusate calcium 240 mg capsule 240 mg PO DAILY PRN Constipation 11/28/21 07/12/24 famotidine 20 mg tablet (Acid 20 mg PO DAILY PRN Indigestion 11/28/21 07/12/24 Induction [employer]ination [employer] (famotidine)) fexofenadine 180 mg tablet 180 mg PO DAILY PRN Allergic 11/28/21 07/12/24 (Mayra Allergy) Symptoms gabapentin 300 mg capsule 600 mg PO BEDTIME 11/28/21 07/12/24 levocetirizine 5 mg tablet (Xyzal) 5 mg PO QPM PRN Allergy Symptoms 11/28/21 07/12/24 mometasone 0.1 % topical solution 1 applic topical BID PRN Ear Wax 11/28/21 07/12/24 oxycodone 5 mg tablet 5 mg PO DAILY PRN Pain, Moderate 11/28/21 07/12/24 potassium citrate 250 100 ml PO DAILY PRN Hypokalemia 05/10/22 07/12/24 pseudoephedrine HCl [Sudafed] 1 tab PO 3XD PRN Allergy Symptoms 05/10/22 07/12/24 sildenafil 50 mg tablet 50 mg PO DAILY PRN Sexual Activity 05/10/22 07/12/24 albuterol sulfate 90 mcg/actuation 2 puff inhalation .PRN 07/12/22 07/12/24 aerosol inhaler omeprazole 40 mg capsule,delayed 40 mg PO DAILY 04/06/23 07/12/24 release fluticasone propionate 50 2 spray intranasal BID 03/26/24 07/12/24 mcg/actuation nasal spray,suspension rosuvastatin 20 mg tablet 40 mg PO ONCE PM 03/26/24 07/12/24 Previous Rx's Medication Instructions Recorded tramadol 50 mg tablet 50 mg PO BID PRN Pain (Scale Score 09/03/23 7-10) #30 tabs Allergies Allergy/AdvReac Type Severity Reaction Status Date / Time amoxicillin [From Augmentin] AdvReac Unknown Nausea and Verified 03/26/24 10:53 vomiting aspirin AdvReac Unknown history of Verified 03/26/24 10:53 stroke clavulanic acid AdvReac Unknown Nausea and Verified 03/26/24 10:53 [From Augmentin] vomiting NSAIDS (Non-Steroidal AdvReac Unknown history of Verified 03/26/24 10:53 Anti-Inflamma stroke Patient History Medical History Facet arthropathy, lumbar Gait instability Spondylolisthesis at L5-S1 level Non-seasonal allergic rhinitis Hyperlipidemia Snoring Obstructive sleep apnea, adult (~06/2021) Obesity (BMI 30-39.9) Essential hypertension Stroke due to intracerebral hemorrhage Fibromyalgia Negro esophagus Smoking Hypertension Hyperlipidemia Arthritis Surgical History Hx of brain surgery History of hernia repair (~2005) History of varicose vein stripping (~1995) History of cholecystectomy (~1979) Hx of appendectomy (~1967) Social History household members: spouse Smoking Status: Former smoker alcohol intake: current Smoking Status: Former smoker alcohol intake frequency: 3 or more drinks per day Substance Use Type: does not use Exam Initial Vital Signs Initial Vital Signs: Vital Signs Pulse Rate 85 07/12/24 20:31 Respiratory Rate 30 H 07/12/24 20:31 Pulse Oximetry 89 L 07/12/24 20:31 Oxygen Delivery Method Nasal Cannula 07/12/24 20:31 Oxygen Flow Rate 2 07/12/24 20:31 Const: Awake, alert, moderate distress, ill-appearing Cardiac: regular rate, regular rhythm RESP: Increased work of breathing, absent breath sounds left-hand side, tachypnea Skin: Warm, Dry, intact, no rashes Neuro: AO x3, CN II-XII grossly intact, moves all extremities Procedures Chest Tube Chest Tube 1: Chest Tube Location: left, mid axillary line and fourth interspace Chest Tube Prep: Yes sterile drapes applied (chlorhexidine prep) Local Anesthetic: lidocaine 1% and with epi Amount of anesthesia used (mL): 10 Incision Made With: #11 blade Post Procedure: sutured to skin and sterile dressing applied Tube Drainage: other (air) Post Procedure CXR?: Yes Patient Tolerated Procedure: Yes Complications: pain Course Orders Ordered: ED Orders 07/12/24 20:27 XR chest 1V Stat EKG-12 Lead Stat 07/12/24 20:37 Complete Blood Count AUTO DIFF Stat Comprehensive Metabolic Panel Stat Lipase Stat Magnesium Stat NT-proBNP (BNP-Adult 18+) Stat PTT Partial Thromboplastin Pee Stat Prothrombin Time INR Stat Troponin & CK Cardiac Panel Stat 07/12/24 21:11 XR chest 1V Stat Discontinued Medications Droperidol (Droperidol 5 Mg/2 Ml Vial) 2.5 mg IV NOW ONE Stop: 07/12/24 22:43 Last Admin: 07/12/24 22:46 Dose: 2.5 mg Documented By: RACHNA Acetaminophen (Ofirmev) 1,000 mg in 100 mls @ 400 mls/hr IV NOW ONE Stop: 07/12/24 22:55 Last Admin: 07/12/24 22:47 Dose: 400 mls/hr Documented By: RACHNA Ketamine HCl (Ketamine 500 Mg/5 Ml Inj) 100 mg IV NOW ONE Stop: 07/12/24 20:56 Last Admin: 07/12/24 21:00 Dose: 100 mg Documented By: RL Lidocaine/Epinephrine (Lidocaine 1% W/Epi) 20 ml SUBCUT NOW ONE Stop: 07/12/24 20:56 Last Admin: 07/12/24 20:59 Dose: 20 ml Documented By: RL Morphine Sulfate (Morphine 4 Mg/Ml Inj) 4 mg IV NOW ONE Stop: 07/12/24 20:56 Last Admin: 07/12/24 20:59 Dose: 4 mg Documented By: RL Morphine Sulfate (Morphine 4 Mg/Ml Inj) 4 mg IV NOW ONE Stop: 07/12/24 22:02 Last Admin: 07/12/24 22:04 Dose: 4 mg Documented By: RL Morphine Sulfate (Morphine 2 Mg/Ml Inj) 2 mg IV NOW ONE Stop: 07/12/24 23:31 Last Admin: 07/12/24 23:35 Dose: 2 mg Documented By: AT Ondansetron HCl (Ondansetron 4 Mg/2 Ml Inj) 4 mg IV NOW ONE Stop: 07/12/24 22:02 Last Admin: 07/12/24 22:04 Dose: 4 mg Documented By: RL Vital Signs Vital signs: Vital Signs - 8 hr 07/12/24 20:31 07/12/24 20:33 07/12/24 20:33 Temperature Pulse Rate 85 81 Respiratory Rate 30 H 36 H Blood Pressure 146/88 H Pulse Oximetry 89 L 92 Oxygen Delivery Method Nasal Cannula Oxygen Flow Rate 2 07/12/24 20:34 07/12/24 20:45 07/12/24 20:46 Temperature 97.7 F Pulse Rate 85 82 Respiratory Rate 22 37 H Blood Pressure 146/88 H 127/85 Pulse Oximetry 91 94 Oxygen Delivery Method Room Air Nasal Cannula Oxygen Flow Rate 4 07/12/24 20:46 07/12/24 20:46 07/12/24 20:51 Temperature Pulse Rate 81 82 Respiratory Rate 38 H 36 H Blood Pressure 127/85 Pulse Oximetry 94 95 Oxygen Delivery Method Oxygen Flow Rate 07/12/24 20:52 07/12/24 20:52 07/12/24 20:55 Temperature Pulse Rate 81 Respiratory Rate 35 H Blood Pressure 134/90 122/79 Pulse Oximetry 95 Oxygen Delivery Method Oxygen Flow Rate 07/12/24 20:55 07/12/24 21:00 07/12/24 21:00 Temperature Pulse Rate 83 82 Respiratory Rate 29 H 35 H Blood Pressure 129/84 Pulse Oximetry 96 93 Oxygen Delivery Method Oxygen Flow Rate 07/12/24 21:05 07/12/24 21:05 07/12/24 21:10 Temperature Pulse Rate 91 H Respiratory Rate 17 Blood Pressure 203/112 H 179/102 H Pulse Oximetry 94 Oxygen Delivery Method Oxygen Flow Rate 07/12/24 21:10 07/12/24 21:15 07/12/24 21:16 Temperature Pulse Rate 100 H 105 H Respiratory Rate 29 H 32 H Blood Pressure 187/108 H Pulse Oximetry 94 96 Oxygen Delivery Method Oxygen Flow Rate 07/12/24 21:16 07/12/24 21:20 07/12/24 21:20 Temperature Pulse Rate 104 H 98 H Respiratory Rate 31 H 32 H Blood Pressure 156/86 H Pulse Oximetry 95 94 Oxygen Delivery Method Oxygen Flow Rate 07/12/24 21:25 07/12/24 21:25 07/12/24 21:30 Temperature Pulse Rate 95 H 92 H Respiratory Rate 31 H 31 H Blood Pressure 145/81 H Pulse Oximetry 94 93 Oxygen Delivery Method Oxygen Flow Rate 07/12/24 21:30 07/12/24 21:35 07/12/24 21:40 Temperature Pulse Rate 88 87 Respiratory Rate 28 H 38 H Blood Pressure 132/72 Pulse Oximetry 91 93 Oxygen Delivery Method Oxygen Flow Rate 07/12/24 21:45 07/12/24 21:50 07/12/24 21:55 Temperature Pulse Rate 83 80 79 Respiratory Rate 28 H 28 H 29 H Blood Pressure Pulse Oximetry 91 92 91 Oxygen Delivery Method Oxygen Flow Rate 07/12/24 22:00 07/12/24 22:05 07/12/24 22:10 Temperature Pulse Rate 75 75 73 Respiratory Rate 31 H 29 H 25 H Blood Pressure Pulse Oximetry 91 91 90 L Oxygen Delivery Method Oxygen Flow Rate 07/12/24 22:15 07/12/24 22:20 Temperature Pulse Rate 74 74 Respiratory Rate 24 24 Blood Pressure Pulse Oximetry 92 98 Oxygen Delivery Method Oxygen Flow Rate MDM - Chest Pain Differential Diagnosis Differential diagnosis: Likely fracture of rib, pneumothorax and stable angina Lab Data 07/12/24 20:37 07/12/24 20:37 Labs: Lab Results 07/12/24 Range/Units 20:37 WBC 8.3 (4.5-11.0) X10^3/uL RBC 4.50 (4.5-5.9) X10^6/uL Hgb 15.2 (13.5-17.5) g/dL Hct 44.7 (41-53) % MCV 99.3 (80-100) fL MCH 33.7 (26-34) PG MCHC 33.9 (30-36) % RDW 14.1 (11.6-14.8) % Plt Count 225 (150-400) X10^3/uL Neut % (Auto) 62.2 (50-75) % Lymph % (Auto) 22.8 L (25-40) % [place] % (Auto) 8.3 (3-14) % Eos % (Auto) 4.7 H (2-4) % Baso % (Auto) 2.0 (0-2) % Neut # (Auto) 5100 (1856-5662) /uL Lymph # (Auto) 1900 (0696-5619) /uL [place] # (Auto) 700 (0-900) /uL Eos # (Auto) 400 (0-450) /uL Baso # (Auto) 200 H (0-100) /uL PT 11.2 (9.4-12.5) SECONDS INR 1.0 (0.9-1.3) APTT 40 H (25.1-36.5) SECONDS Sodium 138 (137-145) mmol/L Potassium 3.8 (3.4-5.1) mmol/L Chloride 106 (98-107) mmol/L Carbon Dioxide 20 L (22-32) mmol/L BUN 13 (9-20) mg/dL Creatinine 0.76 (0.66-1.25) mg/dL Estimated GFR > 60 (>60) mL/min BUN/Creatinine Ratio 17.1 (6-22) Glucose 110 (80-110) mg/dL Calcium 9.0 (8.4-10.2) mg/dL Magnesium 2.2 (1.6-2.3) mg/dL Total Bilirubin 0.7 (0.2-1.3) mg/dL AST 36 (17-59) IU/L ALT 32 (<50) IU/L Alkaline Phosphatase 68 (38-126) U/L Total Creatine Kinase 62 (55-170) U/L Troponin I < 0.012 (0.01-0.034) ng/mL NT-Pro-B Natriuret Pep 428 H (<125) pg/mL Total Protein 7.8 (6.3-8.2) g/dL Albumin 4.4 (3.5-5.0) g/dL Globulin 3.4 (1.7-4.1) g/dL Albumin/Globulin Ratio 1.3 (1.0-2.8) Lipase 79 (23-300) U/L Imaging Data Chest x-ray: My Impression: Repeat CXR - placement of Chest tube. Pneumothorax still present Radiologist's Impression: PROCEDURE: XR CHEST 1V INDICATIONS: chest pain TECHNIQUE: One view of the chest was acquired. COMPARISON: [facility], , XR CHEST 2V, 02/29/2024, 14:28. FINDINGS: Surgical changes and devices: None. Lungs and pleura: Large left pneumothorax. Mediastinum: Mediastinal shift to the right. Bones and chest wall: No suspicious bony lesions. Overlying soft tissues appear unremarkable. IMPRESSION: Large left pneumothorax with mediastinal shift to the right. Findings discussed with Dr. Boss at the time of dictation. Dictated by: Paulo Pozo M.D. on 07/12/2024 at 20:48 Approved by: Paulo Pozo M.D. on 07/12/2024 at 20:51 MDM Narrative Medical decision making narrative: Sudden onset chest pain and shortness of breath after eating dinner. On exam patient noted to be tachypneic, moderate distress, with absent lung sounds on left-hand side. Stat chest x-ray showed large pneumothorax with some right- sided mediastinal shift. Patient and at bedside informed of x-ray results. Recommended chest tube placement for management of pneumothorax. Patient and his agreed. Chest tube placed per procedure note. Postprocedure patient did have some pain associated with the chest tube placement, however x-ray confirmed it was in the appropriate location. Placed to water seal with good seal placed,. Laboratory work reviewed, WBC count 8.3, hemoglobin 15.2, platelets 225, sodium 138, potassium 3.8, creatinine 0.76, troponin undetectable. Patient had a CT of his chest performed 05/16/2024 that showed no suspicious pulmonary nodules, moderate upper lobe predominant centrilobular and paraseptal pulmonary emphysematous changes seen. Review of images shows patient has several blebs on L hand side, suspect rupture of one of these blebs lead to PTX today. Patient's work of breathing improved after placement of chest tube, still requiring small amount of nasal cannula to maintain saturations above 92%. Patient to be admitted for further treatment of his condition. Critical Care Time Critical Care Time Critical Care Time: Yes Total Critical Care Time: 35 Attestation: Pneumothorax requiring stat chest tube placement. Admission to hospital for further treatment. Discharge Plan Departure Patient Disposition: Admitted As Inpatient Clinical Impression: Pneumothorax on left Admit Date/Time: 07/12/24 22:23 Admit Provider: Mikal Ng
[2024-07-12 20:47] LABS: Add Manual Diff / Slide Review NO; Basophils Absolute Auto 200 /uL (0-100); Eosinophils Absolute Auto 400 /uL (0-450); Eosinophils Percent Auto 4.7 % (2-4); Hematocrit 44.7 % (41-53); Hemoglobin 15.2 g/dL (13.5-17.5); Lymphocytes Absolute Auto 1900 /uL (1100-4500); Lymphocytes Percent Auto 22.8 % (25-40); Mean Corpuscular HGB Conc 33.9 % (30-36); Mean Corpuscular Hemoglobin 33.7 PG (26-34); Mean Corpuscular Volume 99.3 fL (80-100); Monocytes Absolute Auto 700 /uL (0-900); Monocytes Percent Auto 8.3 % (3-14); Neutrophils Absolute Auto 5100 /uL (1500-7000); Neutrophils Percent Auto 62.2 % (50-75); Platelet Count 225 X10^3/uL (150-400); Red Cell Distribution Width 14.1 % (11.6-14.8); White Blood Cell Count 8.3 X10^3/uL (4.5-11.0)
[2024-07-12 20:50] LABS: Prothrombin Time 11.2 SECONDS (9.4-12.5)
[2024-07-12 20:53] LABS: PTT Partial Thromboplastin Tim 40 SECONDS (25.1-36.5)
[2024-07-12 20:55] LABS: Alanine Aminotransferase 32 IU/L (<50); Albumin 4.4 g/dL (3.5-5.0); Albumin Globulin Ratio 1.3 (1.0-2.8); Alkaline Phosphatase 68 U/L (38-126); Aspartate Aminotransferase 36 IU/L (17-59); BUN Creatinine Ratio 17.1 (6-22); Bilirubin Total 0.7 mg/dL (0.2-1.3); Blood Urea Nitrogen 13 mg/dL (9-20); Carbon Dioxide 20 mmol/L (22-32); Chloride 106 mmol/L (98-107); Creatine Kinase 62 U/L (55-170); Estimated Glomerular Filt Rate > 60 mL/min (>60); Globulin 3.4 g/dL (1.7-4.1); Glucose 110 mg/dL (80-110); HEMOLYSIS 24 (0-50); Lipase 79 U/L (23-300); Magnesium 2.2 mg/dL (1.6-2.3); Potassium 3.8 mmol/L (3.4-5.1); Sodium 138 mmol/L (137-145); Total Protein 7.8 g/dL (6.3-8.2)
[2024-07-12] MEDS: MORPHINE 4 MG/ML INJ IV ×2 (20:59→22:04)
[2024-07-12] MEDS: LIDOCAINE 1% W/EPI 20 ML SUBCUT (20:59)
[2024-07-12] MEDS: KETAMINE 500 MG/5 ML INJ 100 MG IV (21:00)
[2024-07-12 21:07] LABS: NT-proBNP (BNP-Adult 18+) 428 pg/mL (<125); Troponin I < 0.012 ng/mL (0.01-0.034)
--- NOTE | 2024-07-12 21:11 | DI.RAD.S_ITS ---
PROCEDURE: XR CHEST 1V INDICATIONS: Flu like symptoms TECHNIQUE: One view of the chest was acquired. COMPARISON: [facility], CR, XR CHEST 1V, 07/12/2024, 20:37. [facility], CR, XR CHEST 2V, 02/29/2024, 14:28. FINDINGS: Surgical changes and devices: Interval placement of left chest tube. Lungs and pleura: Grossly similar appearance of large left pneumothorax. Mediastinum: Similar appearance of rightward mediastinal shift. Bones and chest wall: Mild subcutaneous emphysema within the left chest wall. No suspicious bony lesions. Overlying soft tissues appear unremarkable. IMPRESSION: And placement of left chest tube with similar appearance of large left pneumothorax and rightward mediastinal shift. Dictated by: Paulo Pozo M.D. on 07/12/2024 at 21:38 Approved by: Paulo Pozo M.D. on 07/12/2024 at 21:39
[2024-07-12] MEDS: ONDANSETRON 4 MG/2 ML INJ IV (22:04)
[2024-07-12] MEDS: DROPERIDOL 5 MG/2 ML VIAL 2.5 MG IV (22:46)
[2024-07-12] MEDS: ACETAMINOPHEN IV 1,000 MG/100 ML VIAL 400 MG IV (22:47)
[2024-07-12] MEDS: MORPHINE 2 MG/ML INJ IV (23:35)
--- NOTE | 2024-07-13 | PC.NURSE ---
Pt arrived to floor at 2313 with at bedside. Pt is AOx3, forgetful at times per . Hx of stroke in 2019, L side deficit. Pt is on 4L NC sating at 94%. Tele placed. L chest tube to low suction, dressing CDI. Pain 10/10 discomfort on L side. Notified Dr Ng at 1127 for additional pain medication. Morphine 2mg IV ordered x1. Left upper and lower lobe diminished. RT at bedside to verify lung sounds. CXR pending. On continuous pulse ox. Will monitor, call light in reach.
[2024-07-13] MEDS: HYDROMORPHONE 0.5 MG INJ 1 MG IV ×3 (00:45→06:22)
[2024-07-13 00:56] VITALS: BP 118/79; PULSE 71; RESP 22; TEMP 36.2; O2SAT 93
--- NOTE | 2024-07-13 01:01 | PC.NURSE ---
Dr. Ng spoke to patient and ; CXR reviewed by dr and listen to lung sounds. Verbalized chest tube to water seal, no suction. Dilaudid ordered and given to patient for 10/10 pain in L side. On continuous pulse ox sating 91% on 4L NC. Bed alarm activated. Call light in reach.
[2024-07-13] MEDS: OXYCODONE IR 5 MG TABLET PO (03:13)
[2024-07-13 06:00] VITALS: BP 129/96; PULSE 88; RESP 21; TEMP 36.3; O2SAT 91
[2024-07-13] MEDS: ACETAMINOPHEN 325 MG TABLET 650 MG PO (06:12)
--- NOTE | 2024-07-13 07:25 | PM.HP.1 ---
History of Present Illness History of Present Illness Date Patient Seen: 07/13/24 Time Patient Seen: 00:55 Chief complaint: sob, back and chest px Narrative: 74 years old male with past medical history of COPD, hypertension, CVA with residual left-sided weakness, chronic back pain and multiple other medical issues was brought to the emergency room for sudden onset shortness of breath with chest pain. There was no trauma. Patient was not doing any heavy physical activity at the time of the symptom onset. Noted to be in moderate distress on arrival with O2 saturation in the 80s. Respiration rate was in the 30s. Lung sounds were significantly reduced on the left side. Chest x-ray was concerning for large left pneumothorax with mediastinal shift to the right. Chest tube was placed with good symptom relief. Was placed on waterseal further evaluation [facility] Medical History Facet arthropathy, lumbar Gait instability Spondylolisthesis at L5-S1 level Non-seasonal allergic rhinitis Hyperlipidemia Snoring Obstructive sleep apnea, adult (~06/2021) Obesity (BMI 30-39.9) Essential hypertension Stroke due to intracerebral hemorrhage Fibromyalgia Negro esophagus Smoking Hypertension Hyperlipidemia Arthritis Surgical History Hx of brain surgery History of hernia repair (~2005) History of varicose vein stripping (~1995) History of cholecystectomy (~1979) Hx of appendectomy (~1967) Social History household members: spouse Smoking Status: Former smoker alcohol intake: current Meds Home Medications and Allergies Home Medications Medication Instructions Recorded Confirmed Type cyclobenzaprine 10 mg tablet 10 mg PO BEDTIME 01/23/20 07/12/24 History losartan 50 mg tablet 50 mg PO BID 01/23/20 07/12/24 History sennosides 8.6 mg tablet (senna) 8.6 mg PO BEDTIME PRN Constipation 08/03/21 07/12/24 History acetaminophen 500 mg tablet 1,000 mg PO DAILY pain 11/28/21 07/12/24 History azelastine 137 mcg (0.1 %) nasal 2 spray intranasal BID 11/28/21 07/12/24 History spray aerosol calcium carbonate (Tums) 200 mg PO BID PRN gerd 11/28/21 07/12/24 History cholecalciferol (vitamin D3) 50 100 mcg PO DAILY 11/28/21 07/12/24 History mcg (2,000 unit) capsule docusate calcium 240 mg capsule 240 mg PO DAILY PRN Constipation 11/28/21 07/12/24 History famotidine 20 mg tablet (Acid 20 mg PO DAILY PRN Indigestion 11/28/21 07/12/24 History Market Research Lead (famotidine)) fexofenadine 180 mg tablet 180 mg PO DAILY PRN Allergic 11/28/21 07/12/24 History (Mayra Allergy) Symptoms gabapentin 300 mg capsule 600 mg PO BEDTIME 11/28/21 07/12/24 History levocetirizine 5 mg tablet (Xyzal) 5 mg PO QPM PRN Allergy Symptoms 11/28/21 07/12/24 History mometasone 0.1 % topical solution 1 applic topical BID PRN Ear Wax 11/28/21 07/12/24 History oxycodone 5 mg tablet 5 mg PO DAILY PRN Pain, Moderate 11/28/21 07/12/24 History potassium citrate 250 100 ml PO DAILY PRN Hypokalemia 05/10/22 07/12/24 History pseudoephedrine HCl [Sudafed] 1 tab PO 3XD PRN Allergy Symptoms 05/10/22 07/12/24 History sildenafil 50 mg tablet 50 mg PO DAILY PRN Sexual Activity 05/10/22 07/12/24 History albuterol sulfate 90 mcg/actuation 2 puff inhalation .PRN 07/12/22 07/12/24 History aerosol inhaler omeprazole 40 mg capsule,delayed 40 mg PO DAILY 04/06/23 07/12/24 History release tramadol 50 mg tablet 50 mg PO BID PRN Pain (Scale Score 09/03/23 07/12/24 Rx 7-10) #30 tabs fluticasone propionate 50 2 spray intranasal BID 03/26/24 07/12/24 History mcg/actuation nasal spray,suspension rosuvastatin 20 mg tablet 40 mg PO ONCE PM 03/26/24 07/12/24 History Allergies Allergy/AdvReac Type Severity Reaction Status Date / Time amoxicillin [From Augmentin] AdvReac Unknown Nausea and Verified 03/26/24 10:53 vomiting aspirin AdvReac Unknown history of Verified 03/26/24 10:53 stroke clavulanic acid AdvReac Unknown Nausea and Verified 03/26/24 10:53 [From Augmentin] vomiting NSAIDS (Non-Steroidal AdvReac Unknown history of Verified 03/26/24 10:53 Anti-Inflamma stroke Review of Systems Review of Systems Narrative: 12 point review of system is negative unless otherwise stated in the history of present illness Exam Vital Signs (past 8 hours): - 07/12/24 23:30 07/13/24 00:00 07/13/24 00:56 Temperature 97.2 F L 97.2 F L Pulse Rate 77 71 Respiratory Rate 22 22 Blood Pressure 134/99 H 118/79 Pulse Oximetry 92 93 Oxygen Delivery Method Nasal Cannula Oxygen Flow Rate 4 4 07/13/24 06:00 Temperature 97.3 F L Pulse Rate 88 Respiratory Rate 21 Blood Pressure 129/96 H Pulse Oximetry 91 Oxygen Delivery Method Oxygen Flow Rate 4 Oxygen Delivery Method Nasal Cannula Oxygen Flow Rate 4 Narrative Exam Narrative: Patient is awake and appears to be in pain Chest tube in place. Air entry decreased at left base Pulses are noted bilaterally in the lower extremities Objective Labs 07/12/24 20:37 07/12/24 20:37 Labs: Laboratory Results - last 24 hr 07/12/24 20:37 WBC 8.3 RBC 4.50 Hgb 15.2 Hct 44.7 MCV 99.3 MCH 33.7 MCHC 33.9 RDW 14.1 Plt Count 225 Neut % (Auto) 62.2 Lymph % (Auto) 22.8 L [place] % (Auto) 8.3 Eos % (Auto) 4.7 H Baso % (Auto) 2.0 Neut # (Auto) 5100 Lymph # (Auto) 1900 [place] # (Auto) 700 Eos # (Auto) 400 Baso # (Auto) 200 H PT 11.2 INR 1.0 APTT 40 H Sodium 138 Potassium 3.8 Chloride 106 Carbon Dioxide 20 L BUN 13 Creatinine 0.76 Estimated GFR > 60 BUN/Creatinine Ratio 17.1 Glucose 110 Calcium 9.0 Magnesium 2.2 Total Bilirubin 0.7 AST 36 ALT 32 Alkaline Phosphatase 68 Total Creatine Kinase 62 Troponin I < 0.012 NT-Pro-B Natriuret Pep 428 H Total Protein 7.8 Albumin 4.4 Globulin 3.4 Albumin/Globulin Ratio 1.3 Lipase 79 Assessment & Plan Assessment & Plan narrative: 74 years old male with past medical history of COPD, hypertension, CVA with residual left-sided weakness, chronic back pain and multiple other medical issues was brought to the emergency room for sudden onset shortness of breath with chest pain. There was no trauma. Patient was not doing any heavy physical activity at the time of the symptom onset. Noted to be in moderate distress on arrival with O2 saturation in the 80s. Respiration rate was in the 30s. Lung sounds were significantly reduced on the left side. Chest x-ray was concerning for large left pneumothorax with mediastinal shift to the right. Chest tube was placed with good symptom relief. Was placed on waterseal further evaluation 01 pneumothorax large left side spontaneous patient with history of COPD and emphysema. Chest tube in place and is under waterseal. Nebulizers to maintain O2 saturation above 92%. Surgery consulted for chest tube management 2 chest wall pain secondary to pneumothorax. IV Dilaudid for pain control in addition to oxycodone. Can increase the dose of oxycodone if there is no good pain relief. 3 COPD with emphysema. Resume the home inhalers and nebulizers. 4 muscle spasm. In the home Flexeril 5.Hypertension be resumed home losartan 6 GERD resume home PPI 7 DVT prophylaxis will be Lovenox 8 dyslipidemia resume home statin Patient will be admitted under inpatient status given the pneumothorax with the need for chest tube placement with the need for IV pain medications. Expected length of stay is greater than 2 midnights Patient was evaluated with the help of a video communication device. Location of the patient is [facility] Time-Based Coding :: [TOTAL MINUTES] spent with patient and on the chart (including review of chart, obtaining history, exam, reviewing outside data, placing orders, documenting exam and treatment plan, and counseling patient) on [DATE].
[2024-07-13 07:27] VITALS: BP 127/90; PULSE 87; RESP 16; TEMP 36.2; O2SAT 92
--- NOTE | 2024-07-13 07:38 | DI.RAD.S_ITS ---
PROCEDURE: XR CHEST 1V INDICATIONS: pneumothorax s/p chest tube TECHNIQUE: One view of the chest was acquired. COMPARISON: [facility], CT, CT LUNG LOW DOSE SCREENING, 05/16/2024, 10:09. [facility], CR, XR CHEST 2V, 02/29/2024, 14:28. [facility], CR, XR CHEST 1V, 07/12/2024, 20:37. [facility], CR, XR CHEST 1V, 07/12/2024, 21:09. FINDINGS: Surgical changes and devices: A left-sided pleural drain is seen in place. Lungs and pleura: For there is a small to moderate left-sided pneumothorax, which is clearly improved compared to the prior image. Lung volumes are low. Mediastinum: The cardiac contours are within normal limits. The aorta demonstrates calcification and tortuosity. Bones and chest wall: No suspicious bony lesions. Age-appropriate bony degenerative changes are seen. Overlying soft tissues appear unremarkable. IMPRESSION: Left-sided pleural drain in place, with improved left-sided pneumothorax. Dictated by: Pradeep Zarco M.D. on 07/13/2024 at 7:29 Approved by: Pradeep Zarco M.D. on 07/13/2024 at 7:30
[2024-07-13] MEDS: ONDANSETRON 4 MG/2 ML INJ IV (08:22)
--- NOTE | 2024-07-13 08:57 | PC.NURSE ---
Addendum entered by Ina Al R.N. 07/13/24 10:19: Patient just had another emesis, Dr. Simmons notified via webex. Original Note: Assess- Patient is alert and oriented x4, he has left sided defecits from a previous CVA. Patient nauseated earlier and has thrown up x2, second time being 400cc. Patient is being cleaned up now. Zofran given to patient earlier and he states that he is feeling better. Will hold his morning medication for a while and try to give it to him later. Patient has a chest tube placed under l.arm and to upper side of chest. Dressing is cdi and tube is to water seal. Water leak noted in first chamber as patient has a pneumothorax. He just had another emesis, he thinks maybe the pain medication given to him is making him sick.
--- NOTE | 2024-07-13 10:53 | CM.DANOTE ---
Initial DCP Assessment Visit Note Reviewed EMR and team rounds for status updates. Met with pt at bedside to introduce self and role. Pt was found to be resting in bed, appearing comfortable, able to discuss the circumstances that let up to his admission, able to engage congruently in conversation. Pt lives independently at baseline with his spouse here in [place]. His spouse will also plan to transport him home once he's medically cleared for d/c, likely another 2-3 days is anticipated. Payer: Medicare PCP: Dr. Yesy Cortes Pt is a 74 year-old M with a PMH of previous CVA w/residual left-sided weakness who presented to the ED with c/o sudden onset chest pain and shortness of breath while at dinner with his last evening. When he arrived to the ED his O2 sats were in the 80's and he was tachypneic. Stat x-ray showed a large pneumothorax on the right lung. A chest tube was placed, and pt was started on O2, IV pain meds, and anticoagulation. He was then admitted for further tx and evaluation. DCP will continue to follow and assist with any further DCP needs for his eventual d/c home. Discharge Planning/Care Management CM Discharge Assessment Start: 07/13/24 10:36 Freq: Status: Active Protocol: Document 07/13/24 10:36 DPL (Rec: 07/13/24 10:49 DPL [id number]) Discharge Planning Assessment Assigned House Cleaner SEBASTIEN Lewis Advance Directives? Yes Advance Directives on File No History Provided By Patient,Family Member,Medical Record Has Patient been admitted in last 30 No days? Prior Living Arrangements House Household Members spouse Type of transporation used prior to Drives own vehicle admit Independent with ADL's Yes Is patient alert and oriented? Yes Caregiver for Another No Comment No anticipated home d/c needs identified at this time. Barriers to Discharge No Discharge Plan Home Transportation Arrangement Spouse Referrals Initiated None needed Whiteboard Updated in Patient Room with Yes name and ext. # of House Cleaner Review Status In Process Please Provide Date Initial DC 07/13/24 Assessment Was Performed
[2024-07-13 11:00] VITALS: BP 134/92; PULSE 60; RESP 16; TEMP 36.1; O2SAT 93
--- NOTE | 2024-07-13 11:17 | P.HP_ITS ---
History of Present Illness History of Present Illness Date Patient Seen: 07/13/24 Time Patient Seen: 07:45 Date of Onset of Symptoms: 07/12/24 Chief complaint: sob, back and chest px Narrative: 74 years old male with past medical history of COPD, hypertension, CVA with residual left-sided weakness, chronic back pain and multiple other medical issues was brought to the emergency room for sudden onset shortness of breath with chest pain. There was no trauma. Patient was not doing any heavy physical activity at the time of the symptom onset. Noted to be in moderate distress on arrival with O2 saturation in the 80s. Respiration rate was in the 30s. Lung sounds were significantly reduced on the left side. Chest x-ray was concerning for large left pneumothorax with mediastinal shift to the right. Chest tube was placed with good symptom relief. Was placed on waterseal further evaluation Interval history: The patient was celebrating his 7th anniversary yesterday with his when he suddenly felt short of breath with chest pain. He states that he continues to have some mild chest discomfort along with nausea associated with other the pain medications over the chest tube, intermittently retching this morning. [facility] Medical History Facet arthropathy, lumbar Gait instability Spondylolisthesis at L5-S1 level Non-seasonal allergic rhinitis Hyperlipidemia Snoring Obstructive sleep apnea, adult (~06/2021) Obesity (BMI 30-39.9) Essential hypertension Stroke due to intracerebral hemorrhage Fibromyalgia Negro esophagus Smoking Hypertension Hyperlipidemia Arthritis Surgical History Hx of brain surgery History of hernia repair (~2005) History of varicose vein stripping (~1995) History of cholecystectomy (~1979) Hx of appendectomy (~1967) Social History household members: spouse Smoking Status: Former smoker alcohol intake: current Meds Home Medications and Allergies Home Medications Medication Instructions Recorded Confirmed Type cyclobenzaprine 10 mg tablet 10 mg PO BEDTIME 01/23/20 07/12/24 History losartan 50 mg tablet 50 mg PO BID 01/23/20 07/12/24 History sennosides 8.6 mg tablet (senna) 8.6 mg PO BEDTIME PRN Constipation 08/03/21 07/12/24 History acetaminophen 500 mg tablet 1,000 mg PO DAILY pain 11/28/21 07/12/24 History azelastine 137 mcg (0.1 %) nasal 2 spray intranasal BID 11/28/21 07/12/24 History spray aerosol calcium carbonate (Tums) 200 mg PO BID PRN gerd 11/28/21 07/12/24 History cholecalciferol (vitamin D3) 50 100 mcg PO DAILY 11/28/21 07/12/24 History mcg (2,000 unit) capsule docusate calcium 240 mg capsule 240 mg PO DAILY PRN Constipation 11/28/21 07/12/24 History famotidine 20 mg tablet (Acid 20 mg PO DAILY PRN Indigestion 11/28/21 07/12/24 History Lead Web Application Developer (famotidine)) fexofenadine 180 mg tablet 180 mg PO DAILY PRN Allergic 11/28/21 07/12/24 History (Mayra Allergy) Symptoms gabapentin 300 mg capsule 600 mg PO BEDTIME 11/28/21 07/12/24 History levocetirizine 5 mg tablet (Xyzal) 5 mg PO QPM PRN Allergy Symptoms 11/28/21 07/12/24 History mometasone 0.1 % topical solution 1 applic topical BID PRN Ear Wax 11/28/21 07/12/24 History oxycodone 5 mg tablet 5 mg PO DAILY PRN Pain, Moderate 11/28/21 07/12/24 History potassium citrate 250 100 ml PO DAILY PRN Hypokalemia 05/10/22 07/12/24 History pseudoephedrine HCl [Sudafed] 1 tab PO 3XD PRN Allergy Symptoms 05/10/22 07/12/24 History sildenafil 50 mg tablet 50 mg PO DAILY PRN Sexual Activity 05/10/22 07/12/24 History albuterol sulfate 90 mcg/actuation 2 puff inhalation .PRN 07/12/22 07/12/24 History aerosol inhaler omeprazole 40 mg capsule,delayed 40 mg PO DAILY 04/06/23 07/12/24 History release tramadol 50 mg tablet 50 mg PO BID PRN Pain (Scale Score 09/03/23 07/12/24 Rx 7-10) #30 tabs fluticasone propionate 50 2 spray intranasal BID 03/26/24 07/12/24 History mcg/actuation nasal spray,suspension rosuvastatin 20 mg tablet 40 mg PO ONCE PM 03/26/24 07/12/24 History Allergies Allergy/AdvReac Type Severity Reaction Status Date / Time amoxicillin [From Augmentin] AdvReac Unknown Nausea and Verified 03/26/24 10:53 vomiting aspirin AdvReac Unknown history of Verified 03/26/24 10:53 stroke clavulanic acid AdvReac Unknown Nausea and Verified 03/26/24 10:53 [From Augmentin] vomiting NSAIDS (Non-Steroidal AdvReac Unknown history of Verified 03/26/24 10:53 Anti-Inflamma stroke Review of Systems Review of Systems ROS: Yes All systems reviewed with the patient and are negative except as otherwise documented Exam Vital Signs (past 8 hours): - 07/13/24 06:00 07/13/24 07:27 Temperature 97.3 F L 97.2 F L Pulse Rate 88 87 Respiratory Rate 21 16 Blood Pressure 129/96 H 127/90 Pulse Oximetry 91 92 Oxygen Flow Rate 4 3.5 Oxygen Delivery Method Nasal Cannula Oxygen Flow Rate 3.5 Narrative Exam Narrative: GENERAL: This is a well-nourished, well-developed patient, [place]-accented with some apparent mild cognitive or expressive impairment, in no apparent distress. HEAD: Atraumatic. Normocephalic. No temporal or scalp tenderness. EYES: Pupils equal round and reactive. Extraocular motions intact. No scleral icterus. No injection or drainage. ENT: Mucous membranes pink and moist. NECK: Trachea midline. No JVD, bruits or lymphadenopathy. Supple, nontender, no meningeal signs. CARDIOVASCULAR: Regular rate and rhythm without murmurs, gallops, or rubs. CHEST: Left-sided chest tube in place, no air leak. RESPIRATORY: Clear to auscultation. GASTROINTESTINAL: Abdomen soft, non-tender, nondistended. EXTREMITIES: No clubbing, cyanosis, or edema. NEUROLOGIC: Alert, oriented, speech fluent, mild left-sided weakness. DERMATOLOGIC: No rashes or skin lesions. Objective ECG Impression: Sinus rhythm with fusion complexes at 84 beats per minute Incomplete right bundle branch block ST & T wave abnormality, consider anterior ischemia Prolonged QTc 470 millisecond Imaging Chest x-ray 07/12/2024:: Radiologist's impression: Large left pneumothorax with mediastinal shift to the right. Chest x-ray post chest tube placement 07/12/2024:: My impression: Left-sided chest tube in place, persistent large left pneumothorax. Chest x-ray 07/13/2024:: Radiologist's impression: Lungs and pleura: For there is a small to moderate left-sided pneumothorax, which is clearly improved compared to the prior image. Lung volumes are low. Left-sided pleural drain in place, with improved left-sided pneumothorax. Labs 07/12/24 20:37 07/12/24 20:37 Labs: Laboratory Results - last 24 hr 07/12/24 20:37 WBC 8.3 RBC 4.50 Hgb 15.2 Hct 44.7 MCV 99.3 MCH 33.7 MCHC 33.9 RDW 14.1 Plt Count 225 Neut % (Auto) 62.2 Lymph % (Auto) 22.8 L [place] % (Auto) 8.3 Eos % (Auto) 4.7 H Baso % (Auto) 2.0 Neut # (Auto) 5100 Lymph # (Auto) 1900 [place] # (Auto) 700 Eos # (Auto) 400 Baso # (Auto) 200 H PT 11.2 INR 1.0 APTT 40 H Sodium 138 Potassium 3.8 Chloride 106 Carbon Dioxide 20 L BUN 13 Creatinine 0.76 Estimated GFR > 60 BUN/Creatinine Ratio 17.1 Glucose 110 Calcium 9.0 Magnesium 2.2 Total Bilirubin 0.7 AST 36 ALT 32 Alkaline Phosphatase 68 Total Creatine Kinase 62 Troponin I < 0.012 NT-Pro-B Natriuret Pep 428 H Total Protein 7.8 Albumin 4.4 Globulin 3.4 Albumin/Globulin Ratio 1.3 Lipase 79 Assessment & Plan Assessment & Plan narrative: 1. Large left spontaneous pneumothorax, in a patient with history of COPD and emphysema. Suspect pneumothorax due to ruptured bleb. Continue chest tube under water seal. Consult General surgery for management. 2. Chest wall pain secondary to pneumothorax. Adjust opioid analgesics due to associated nausea. 3. Nausea and vomiting, likely due to pain medications and pain. Antiemetics as needed. 4. COPD with emphysema. Continue home inhalers and nebulizers. 5. Hypertension. Continue routine losartan. 6. Hyperlipidemia. Continue routine statin. 7. GERD. Continue home PPI 8. DVT prophylaxis: Lovenox. 9. Code status: Full code. Affirmed on admission. Patient is admitted to inpatient status given the pneumothorax with the need for chest tube placement with the need for IV pain medications. Expected length of stay is greater than 2 midnights Time-Based Coding :: [TOTAL MINUTES] spent with patient and on the chart (including review of chart, obtaining history, exam, reviewing outside data, placing orders, documenting exam and treatment plan, and counseling patient) on [DATE]. Quality MIPS - Admit I confirm the patient?s Advance Care Plan is present, Code status is documented, Surrogate decision maker is in patient?s record [If Yes, STOP here]: Yes MIPS - Meds 'Current medications' to include all prescriptions, [id number] products, herbals, cannabis/cannabidiol products, and vitamin/mineral/dietary (nutritional) supplements. I have utilized all available resources to obtain, update, or review the patient?s current medications. [If Yes, STOP here]: Yes PROFEE Charge Codes Initial inpatient/observation care: 30292
[2024-07-13] MEDS: PROCHLORPERAZINE 10 MG/2 ML VIAL IV (11:42)
--- NOTE | 2024-07-13 14:34 | P.PN_ITS ---
Subjective Subjective Date Patient Seen: 07/13/24 Time Patient Seen: 14:35 Interval history: Spontaneous left PTX in face of COPD and bullae disease seen on last CT scan. Has SBO that is improving and left sided chest pain with motion. Exam Vital Signs (past 8 hours): - 07/13/24 07:27 07/13/24 11:00 Temperature 97.2 F L 96.9 F L Pulse Rate 87 60 Respiratory Rate 16 16 Blood Pressure 127/90 134/92 H Pulse Oximetry 92 93 Oxygen Flow Rate 3.5 3.5 Oxygen Delivery Method Nasal Cannula Oxygen Flow Rate 3.5 Const General: cooperative and lethargic Nutritional Appearance: obese Orientation: alert, awake and oriented x3 HENMT Head: normocephalic and atraumatic Ears: hearing grossly impaired Eyes General: appearance normal, both eyes and all related structures Sclera: sclerae normal Neck Neck: trachea midline Chest Other: left sided chest tube with large air leak. CXR has slow progress in re expanding the lung. Resp Effort & Inspection: normal respiratory effort, able to speak in complete sentences and no audible wheezes Cardio Rate: regular rate Rhythm: regular rhythm GI Palpation: soft and No tender Skin General: atrophy and dry skin Neuro General: patient alert, patient awake and patient oriented x3 Psych Mental Status: mental status grossly normal Judgment: judgment good Objective Labs 07/12/24 20:37 07/12/24 20:37 Labs: Laboratory Results - last 24 hr 07/12/24 20:37 WBC 8.3 RBC 4.50 Hgb 15.2 Hct 44.7 MCV 99.3 MCH 33.7 MCHC 33.9 RDW 14.1 Plt Count 225 Neut % (Auto) 62.2 Lymph % (Auto) 22.8 L [place] % (Auto) 8.3 Eos % (Auto) 4.7 H Baso % (Auto) 2.0 Neut # (Auto) 5100 Lymph # (Auto) 1900 [place] # (Auto) 700 Eos # (Auto) 400 Baso # (Auto) 200 H PT 11.2 INR 1.0 APTT 40 H Sodium 138 Potassium 3.8 Chloride 106 Carbon Dioxide 20 L BUN 13 Creatinine 0.76 Estimated GFR > 60 BUN/Creatinine Ratio 17.1 Glucose 110 Calcium 9.0 Magnesium 2.2 Total Bilirubin 0.7 AST 36 ALT 32 Alkaline Phosphatase 68 Total Creatine Kinase 62 Troponin I < 0.012 NT-Pro-B Natriuret Pep 428 H Total Protein 7.8 Albumin 4.4 Globulin 3.4 Albumin/Globulin Ratio 1.3 Lipase 79 PFSH Medical History Facet arthropathy, lumbar Gait instability Spondylolisthesis at L5-S1 level Non-seasonal allergic rhinitis Hyperlipidemia Snoring Obstructive sleep apnea, adult (~06/2021) Obesity (BMI 30-39.9) Essential hypertension Stroke due to intracerebral hemorrhage Fibromyalgia Negro esophagus Smoking Hypertension Hyperlipidemia Arthritis Surgical History Hx of brain surgery History of hernia repair (~2005) History of varicose vein stripping (~1995) History of cholecystectomy (~1979) Hx of appendectomy (~1967) Social History household members: spouse Smoking Status: Former smoker alcohol intake: current Assessment & Plan Assessment & Plan narrative: COPD with spontaneous left PTX. Stopped smoking 5 years ago. Large air leak and slow reexpansion of lung Plan: continue current treatment and re evaluate in am for possible need of 2nd chest tube. My recommendation is transfer to Dr. Claudio at [facility] as this may require surgical intervention. Time-Based Coding :: [TOTAL MINUTES] spent with patient and on the chart (including review of chart, obtaining history, exam, reviewing outside data, placing orders, documenting exam and treatment plan, and counseling patient) on [DATE].
[2024-07-13] MEDS: CHOLECALCIFEROL (VITAMIN D3) 1,000 UNIT TABLET 4000 UNIT PO (17:14)
[2024-07-13] MEDS: TRAMADOL 50 MG TABLET PO (17:15)
[2024-07-13] MEDS: LOSARTAN 50 MG TABLET PO (17:15)
[2024-07-13] MEDS: PANTOPRAZOLE DR 40 MG TABLET PO (17:16)
[2024-07-13] MEDS: LORATADINE 10 MG TABLET PO (17:16)
[2024-07-13 17:26] VITALS: O2SAT 93
[2024-07-13 20:00] VITALS: BP 139/93; PULSE 65; RESP 18; TEMP 36.7; O2SAT 94
[2024-07-13] MEDS: GABAPENTIN 300 MG CAPSULE 600 MG PO (20:51)
[2024-07-13] MEDS: CYCLOBENZAPRINE 10 MG TABLET PO (20:51)
[2024-07-13] MEDS: ATORVASTATIN 20 MG TABLET 80 MG PO (20:51)
[2024-07-14] VITALS: BP 161/96; PULSE 79; RESP 20; TEMP 37.2; O2SAT 93
[2024-07-14] MEDS: TRAMADOL 50 MG TABLET PO ×3 (00:16→21:21)
[2024-07-14 04:00] VITALS: BP 134/82; PULSE 68; RESP 20; TEMP 36.7; O2SAT 95
--- NOTE | 2024-07-14 07:58 | P.PN_ITS ---
Subjective Subjective Interval history: Interval history: The patient was celebrating his 7th wed anniversary yesterday with his when he suddenly felt short of breath with chest pain. Yesterday, he states that he continues to have some mild chest discomfort along with nausea associated with other the pain medications over the chest tube, intermittently retching this morning. Chest tube with large air leak on 07/13. S: He was doing okay, tolerable pain on the left side from the chest tube. No dyspnea. Chest x-ray is improved but he still does have a [id number] left-sided pneumothorax. The chest tube did not have an air leak when I was in the room. He drinks a glass or 2 of wine every day. Exam Vital Signs (past 8 hours): - 07/14/24 00:00 07/14/24 04:00 Temperature 98.9 F 98.1 F Pulse Rate 79 68 Respiratory Rate 20 20 Blood Pressure 161/96 H 134/82 Pulse Oximetry 93 95 Oxygen Flow Rate 3.5 Fraction of Inspired Oxygen 34 SaO2/FiO2 Ratio 273 Oxygen Delivery Method Nasal Cannula Oxygen Flow Rate 3.5 Narrative Exam Narrative: NAD Lungs clear Heart regular Abdomen soft No leg edema Slow to answer questions. Left sided chest tube. Objective Imaging Chest x-ray: My impression: Left-sided [id number] pneumothorax, improved. Chest tube in place. Radiologist's impression: Continued decrease of the left-sided pneumothorax. Left-sided pleural drain remains in place. Labs 07/12/24 20:37 07/12/24 20:37 [facility] Medical History Facet arthropathy, lumbar Gait instability Spondylolisthesis at L5-S1 level Non-seasonal allergic rhinitis Hyperlipidemia Snoring Obstructive sleep apnea, adult (~06/2021) Obesity (BMI 30-39.9) Essential hypertension Stroke due to intracerebral hemorrhage Fibromyalgia Negro esophagus Smoking Hypertension Hyperlipidemia Arthritis Surgical History Hx of brain surgery History of hernia repair (~2005) History of varicose vein stripping (~1995) History of cholecystectomy (~1979) Hx of appendectomy (~1967) Social History household members: spouse Smoking Status: Former smoker alcohol intake: current Assessment & Plan Assessment & Plan narrative: 1. Left pneumothorax, present on admission and active. 2. Severe bullous COPD, present on admission and active. 3. HTN, present on admission and active. 4. Morbid obesity with BMI 68, present on admission and active. 5. HLD, present on admission and active. 6. Tobacco and smoking dependence, present on admission and active. PLAN: -continue Chest tube to suction. -monitor for air leak -discuss with surgery. -repeat chest x-ray later today. There was an air leak that improved with better tape this morning. SNOW: 2 days, home. Time-Based Coding :: 30 min spent with patient and on the chart (including review of chart, obtaining history, exam, reviewing outside data, placing orders, documenting exam and treatment plan, and counseling patient) on 07/14.
[2024-07-14 08:00] VITALS: BP 130/85; PULSE 81; RESP 18; TEMP 36.3; O2SAT 93
--- NOTE | 2024-07-14 08:51 | DI.RAD.S_ITS ---
PROCEDURE: XR CHEST 1V INDICATIONS: pneumothorax TECHNIQUE: One view of the chest was acquired. COMPARISON: [facility], CR, XR CHEST 1V, 07/13/2024, 7:42. [facility], CR, XR CHEST 1V, 07/12/2024, 21:09. FINDINGS: Surgical changes and devices: Left-sided pigtail pleural drain. Lungs and pleura: Moderate left-sided pneumothorax, decreased. This measures approximately 1.4 cm at the anterior lateral aspect (previously 3 cm yesterday). Mild opacity in the left lung. No significant pleural effusion. Mediastinum: Mediastinal contours appear similar. Heart size is within normal limits. Bones and chest wall: No suspicious bony lesions. Overlying soft tissues appear unremarkable. IMPRESSION: Continued decrease of the left-sided pneumothorax. Left-sided pleural drain remains in place. Dictated by: Marvin Manrique M.D. on 07/14/2024 at 9:07 Approved by: Marvin Manrique M.D. on 07/14/2024 at 9:10
[2024-07-14] MEDS: CHOLECALCIFEROL (VITAMIN D3) 1,000 UNIT TABLET 4000 UNIT PO (09:38)
[2024-07-14 09:39] VITALS: BP 130/85
[2024-07-14] MEDS: PANTOPRAZOLE DR 40 MG TABLET PO (09:39)
[2024-07-14] MEDS: LOSARTAN 50 MG TABLET PO ×2 (09:39→21:12)
[2024-07-14] MEDS: ENOXAPARIN 40 MG/0.4 ML SYRINGE SUBCUT ×2 (09:40→21:12)
[2024-07-14] MEDS: FLUTICASONE 120 SPRAY/16 GM SPRAY.SUSP NASAL ×2 (09:40→21:12)
[2024-07-14 09:55] LABS: Hematocrit 40.9 % (41-53); Hemoglobin 14.1 g/dL (13.5-17.5); Mean Corpuscular HGB Conc 34.5 % (30-36); Mean Corpuscular Hemoglobin 34.3 PG (26-34); Mean Corpuscular Volume 99.4 fL (80-100); Platelet Count 199 X10^3/uL (150-400); Red Blood Cell Count 4.12 X10^6/uL (4.5-5.9); Red Cell Distribution Width 14.3 % (11.6-14.8); White Blood Cell Count 8.5 X10^3/uL (4.5-11.0)
[2024-07-14 10:03] LABS: BUN Creatinine Ratio 16.9 (6-22); Blood Urea Nitrogen 13 mg/dL (9-20); Carbon Dioxide 27 mmol/L (22-32); Chloride 104 mmol/L (98-107); Estimated Glomerular Filt Rate > 60 mL/min (>60); Glucose 117 mg/dL (80-110); HEMOLYSIS < 15 (0-50); Potassium 3.7 mmol/L (3.4-5.1); Sodium 138 mmol/L (137-145)
--- NOTE | 2024-07-14 11:05 | PM.PN.1 ---
Subjective Subjective Date Patient Seen: 07/14/24 Time Patient Seen: 11:05 Interval history: Improved resolution on CXR of PTX and decreased air leak. Exam Vital Signs (past 8 hours): - 07/14/24 04:00 07/14/24 07:00 07/14/24 08:00 Temperature 98.1 F 97.3 F L Pulse Rate 68 81 Respiratory Rate 20 18 Blood Pressure 134/82 130/85 Pulse Oximetry 95 93 Oxygen Delivery Method Nasal Cannula Oxygen Flow Rate 3.5 4 07/14/24 09:39 Temperature Pulse Rate Respiratory Rate Blood Pressure 130/85 Pulse Oximetry Oxygen Delivery Method Oxygen Flow Rate Fraction of Inspired Oxygen 34 SaO2/FiO2 Ratio 273 Oxygen Delivery Method Nasal Cannula Oxygen Flow Rate 4 Objective Labs 07/14/24 09:37 07/14/24 09:37 Labs: Laboratory Results - last 24 hr 07/14/24 09:37 WBC 8.5 RBC 4.12 L Hgb 14.1 Hct 40.9 L MCV 99.4 MCH 34.3 H MCHC 34.5 RDW 14.3 Plt Count 199 Sodium 138 Potassium 3.7 Chloride 104 Carbon Dioxide 27 BUN 13 Creatinine 0.77 Estimated GFR > 60 BUN/Creatinine Ratio 16.9 Glucose 117 H Calcium 9.0 PFSH Medical History Facet arthropathy, lumbar Gait instability Spondylolisthesis at L5-S1 level Non-seasonal allergic rhinitis Hyperlipidemia Snoring Obstructive sleep apnea, adult (~06/2021) Obesity (BMI 30-39.9) Essential hypertension Stroke due to intracerebral hemorrhage Fibromyalgia Negro esophagus Smoking Hypertension Hyperlipidemia Arthritis Surgical History Hx of brain surgery History of hernia repair (~2005) History of varicose vein stripping (~1995) History of cholecystectomy (~1979) Hx of appendectomy (~1967) Social History household members: spouse Smoking Status: Former smoker alcohol intake: current Assessment & Plan Assessment & Plan narrative: Continued resolution on water seal. Plan: May not need further chest tubes or transfer. Observation. Time-Based Coding :: [TOTAL MINUTES] spent with patient and on the chart (including review of chart, obtaining history, exam, reviewing outside data, placing orders, documenting exam and treatment plan, and counseling patient) on [DATE].
--- NOTE | 2024-07-14 14:00 | DI.RAD.S_ITS ---
PROCEDURE: XR CHEST 1V INDICATIONS: Follow up pneumothorax TECHNIQUE: One view of the chest was acquired. COMPARISON: [facility], , XR CHEST 1V, 07/14/2024, 8:49. FINDINGS: There is slight advancement of the left pleural catheter, with the tip projecting at the left upper lung, previously about the left mid lung. Moderate left pneumothorax, slightly increased in size on the lateral aspect. No pleural effusion. No right pneumothorax. Mild right basilar atelectasis, unchanged from prior exam. Normal cardiomediastinal silhouette. IMPRESSION: Slight bands mid of the left pleural catheter. Moderate left pneumothorax, slightly increase in size on the lateral aspect. Dictated by: Arin Lyman M.D. on 07/14/2024 at 17:34 Approved by: Arin Lyman M.D. on 07/14/2024 at 17:37
--- NOTE | 2024-07-14 15:40 | CM.DPC ---
DCP Cont: Per Surgeon, pt making progress with his pneumothorax and leak seems resolved from his chest tube and to continue care towards ongoing progress before chest tube can be removed. Not yet medically stable to discharge. Currently no need for hospital transfer. SW to continue to follow closely to confirm safe d/c home with spouse when stable. SEBASTIEN Hunter
[2024-07-14 16:00] VITALS: BP 134/97; PULSE 84; RESP 18; TEMP 36.5; O2SAT 95
[2024-07-14 20:00] VITALS: BP 134/94; PULSE 80; RESP 18; TEMP 36.4; O2SAT 91
[2024-07-14] MEDS: ATORVASTATIN 20 MG TABLET 80 MG PO (21:11)
[2024-07-14] MEDS: GABAPENTIN 300 MG CAPSULE 600 MG PO (21:11)
[2024-07-14] MEDS: SENNOSIDES 8.6 MG TABLET PO (21:11)
[2024-07-15] VITALS (8 sets, daily range): BP systolic 118–128; BP diastolic 81–95; PULSE 61–92; RESP 15–19; TEMP 36–36.7; O2SAT 92–98
[2024-07-15] MEDS: TRAMADOL 50 MG TABLET PO ×3 (01:08→20:27)
--- NOTE | 2024-07-15 08:00 | DI.RAD.S_ITS ---
PROCEDURE: XR CHEST 1V INDICATIONS: follow up pneumothorax TECHNIQUE: One view of the chest was acquired. COMPARISON: [facility], CR, XR CHEST 1V, 07/14/2024, 14:07. FINDINGS: Surgical changes and devices: Left chest tube Lungs and pleura: Moderate continued left pneumothorax. Minimal bibasilar atelectasis. Mediastinum: Mediastinal contours appear normal. Heart size is normal. Bones and chest wall: No suspicious bony lesions. Overlying soft tissues appear unremarkable. IMPRESSION: Left chest tube in place with continued moderate left pneumothorax. Dictated by: Vince Kern M.D. on 07/15/2024 at 8:35 Approved by: Vince Kern M.D. on 07/15/2024 at 8:41
[2024-07-15] MEDS: PANTOPRAZOLE DR 40 MG TABLET PO (09:54)
[2024-07-15] MEDS: ENOXAPARIN 40 MG/0.4 ML SYRINGE SUBCUT ×2 (09:54→20:27)
[2024-07-15] MEDS: FLUTICASONE 120 SPRAY/16 GM SPRAY.SUSP NASAL ×2 (09:55→20:26)
[2024-07-15] MEDS: CHOLECALCIFEROL (VITAMIN D3) 1,000 UNIT TABLET 4000 UNIT PO (09:55)
[2024-07-15] MEDS: METOPROLOL ER 25 MG TABLET PO (09:55)
[2024-07-15] MEDS: LOSARTAN 50 MG TABLET PO ×2 (09:56→20:26)
--- NOTE | 2024-07-15 10:12 | P.PN_ITS ---
Subjective Subjective Interval history: Summary: This is a pleasant 72-year-old male who presented with a left-sided pneumothorax in context with an apical bleb. He was had a persistent intermittent air leak. Discussed him with Dr. Claudio, thoracic surgery at [facility]. Dr. Claudio believes he will need surgical management of the bleb to resolve the pneumothorax remove the chest tube. Unfortunately he was not available for the next 5 days at [facility]. S: Comfortable, minimal pain from the tube. No dyspnea. Exam Vital Signs (past 8 hours): - 07/15/24 04:00 07/15/24 07:30 07/15/24 08:00 Temperature 96.9 F L 97.6 F Pulse Rate 74 92 H Respiratory Rate 17 15 Blood Pressure 124/91 H 128/91 H Pulse Oximetry 92 92 94 Oxygen Delivery Method Nasal Cannula Oxygen Flow Rate 4 4 Fraction of Inspired Oxygen 36 Fraction of Inspired Oxygen 36 SaO2/FiO2 Ratio 255 Oxygen Delivery Method Nasal Cannula Oxygen Flow Rate 4 Narrative Exam Narrative: NAD, alert and oriented. Fluent speech. Lungs are clear, normal rate and effort. Globally diminished breath sounds. Left-sided chest tube in place. Heart is regular, no murmur gallop or rub. Abdomen is soft, non distended. Extremities are free of edema. Objective Imaging CXR 07/15 08:00: : My impression: Persistent and stable pneumothorax on the left. Radiologist's impression: Left chest tube in place with continued moderate left pneumothorax. Labs 07/14/24 09:37 07/14/24 09:37 [facility] Medical History Facet arthropathy, lumbar Gait instability Spondylolisthesis at L5-S1 level Non-seasonal allergic rhinitis Hyperlipidemia Snoring Obstructive sleep apnea, adult (~06/2021) Obesity (BMI 30-39.9) Essential hypertension Stroke due to intracerebral hemorrhage Fibromyalgia Negro esophagus Smoking Hypertension Hyperlipidemia Arthritis Surgical History Hx of brain surgery History of hernia repair (~2005) History of varicose vein stripping (~1995) History of cholecystectomy (~1979) Hx of appendectomy (~1967) Social History household members: spouse Smoking Status: Former smoker alcohol intake: current Assessment & Plan Assessment & Plan narrative: 1. Left pneumothorax, present on admission and active. 2. Severe bullous COPD, present on admission and active. 3. HTN, present on admission and active. 4. Morbid obesity with BMI 68, present on admission and active. 5. HLD, present on admission and active. 6. Tobacco and smoking dependence, present on admission and active. PLAN: -continue Chest tube to suction. -monitor for air leak -surgery has recommended transfer to [facility]. I shared this with the patient and . Transfer request has been made and we are waiting for next steps. Time-Based Coding :: 25 min spent with patient and on the chart (including review of chart, obtaining history, exam, reviewing outside data, placing orders, documenting exam and treatment plan, and counseling patient) on 07/15.
--- NOTE | 2024-07-15 12:03 | P.DS_ITS ---
History of Present Illness History of Present Illness Chief complaint: sob, back and chest px Narrative: From H&P: 74 year old male with past medical history of COPD, hypertension, CVA with residual left-sided weakness, chronic back pain and multiple other medical issues was brought to the emergency room for sudden onset shortness of breath with chest pain. There was no trauma. Patient was not doing any heavy physical activity at the time of the symptom onset. Noted to be in moderate distress on arrival with O2 saturation in the 80s. Respiration rate was in the 30s. Lung sounds were significantly reduced on the left side. Chest x-ray was concerning for large left pneumothorax with mediastinal shift to the right. Chest tube was placed with good symptom relief. Was placed on waterseal further evaluation Discharge Providers Provider Date of admission: 07/12/24 22:23 Discharge Date: 07/15/24 Primary care physician: Yesy Cortes MD Consults: 07/13/24 10:23 Consult to General Surgery Routine Comment: Consulting Provider: Mohini Coleman Reason for consultation: pneumothorax Has provider been notified: Yes Discharge provider: Lukas Reynolds MD Summary Hospital Course Discharge Diagnosis: 1. Left pneumothorax with persistant air leak, present on admission and active. 2. Severe bullous COPD, present on admission and active. 3. HTN, present on admission and active. 4. Morbid obesity with BMI 68, present on admission and active. 5. HLD, present on admission and active. 6. Tobacco and smoking dependence, present on admission and active. Hospital Course: He was admitted with the chest tube to water seal. He had a failure to re expand the pneumothorax despite the chest tube. There was a persistent air leak as well. General surgery recommended transfer for thoracic surgery. [facility] thoracic surgeon reviewed the case and feels that a procedure on the blood will be required. However, he was unavailable for the next 5 days. The case was discussed with the Samy Ornelas and ultimately a transfer was accepted to [address] after speaking with their thoracic surgeon. He was otherwise stable and not hypoxic. Status at Discharge Cognitive/behavioral status at discharge: oriented Functional status at discharge: independent ambulation Overall status at discharge: patient is not back to baseline Time Spent with Patient Time spent: Greater than 30 minutes Exam Vital Signs (past 8 hours): - 07/15/24 07:30 07/15/24 08:00 Temperature 97.6 F Pulse Rate 92 H Respiratory Rate 15 Blood Pressure 128/91 H Pulse Oximetry 92 94 Oxygen Delivery Method Nasal Cannula Oxygen Flow Rate 4 Fraction of Inspired Oxygen 36 Fraction of Inspired Oxygen 36 SaO2/FiO2 Ratio 255 Oxygen Delivery Method Nasal Cannula Oxygen Flow Rate 4 Narrative Exam Narrative: NAD, alert and oriented. Fluent speech. Lungs are clear, normal rate and effort. Globally diminished breath sounds. Left-sided chest tube in place. Heart is regular, no murmur gallop or rub. Abdomen is soft, non distended. Extremities are free of edema. Objective ECG Impression: Sinus rhythm with fusion complexes Incomplete right bundle branch block ST & T wave abnormality, consider anterior ischemia Prolonged QT Imaging Multiple studies: : Radiologist's impression: Chest x-ray July 15 at 0800 a.m.: Left chest tube in place with continued moderate left pneumothorax. Chest x-ray July 14 at 17:38 p.m.: Slight bands mid of the left pleural catheter. Moderate left pneumothorax, slightly increase in size on the lateral aspect. Chest x-ray July 13 at 7:29 a.m.: Left-sided pleural drain in place, with improved left-sided pneumothorax. Admission chest x-ray on July 12: Large left pneumothorax with mediastinal shift to the right. Findings discussed with Dr. Boss at the time of dictation. Labs 07/14/24 09:37 07/14/24 09:37 [facility] Medical History Facet arthropathy, lumbar Gait instability Spondylolisthesis at L5-S1 level Non-seasonal allergic rhinitis Hyperlipidemia Snoring Obstructive sleep apnea, adult (~06/2021) Obesity (BMI 30-39.9) Essential hypertension Stroke due to intracerebral hemorrhage Fibromyalgia Negro esophagus Smoking Hypertension Hyperlipidemia Arthritis Surgical History Hx of brain surgery History of hernia repair (~2005) History of varicose vein stripping (~1995) History of cholecystectomy (~1979) Hx of appendectomy (~1967) Social History household members: spouse Smoking Status: Former smoker alcohol intake: current Discharge Assessment & Plan Assessment and Plan Assessment: 1. Left pneumothorax with persistant air leak, present on admission and active. 2. Severe bullous COPD, present on admission and active. Plan of Treatment: Transfer to [address] ambulance for thoracic surgery evaluation and probable lobectomy for ultimate chest tube removal with pneumothorax resolution. Discharge Plan Discharge Plan Patient Disposition: [facility] Other facility: [facility] Under care of provider: Dr. Epstein Provider Discharge Comment: Stable for transfer to [address] Thoracic surgery services needed. Discharge orders & Medications Prescriptions: No Action acetaminophen 500 mg tablet 1,000 mg PO DAILY gabapentin 300 mg capsule 600 mg PO BEDTIME losartan 50 mg Tablet 50 mg PO BID cyclobenzaprine 10 mg Tablet 10 mg PO BEDTIME Rx Instructions: 1-2 hours before bedtime levocetirizine [Xyzal] 5 mg tablet 5 mg PO QPM PRN (Reason: Allergy Symptoms) sennosides [senna] 8.6 mg tablet 8.6 mg PO BEDTIME PRN (Reason: Constipation) Kapspargo Sprinkle 25 mg capsule,sprinkle,ER 24hr 25 mg PO DAILY tramadol 50 mg tablet 50 mg PO BID PRN (Reason: Pain (Scale Score 7-10)) Qty: 30 0RF rosuvastatin 20 mg tablet 40 mg PO ONCE PM fluticasone propionate 50 mcg/actuation spray,suspension 2 spray intranasal BID azelastine 137 mcg (0.1 %) aerosol,spray 2 spray intranasal BID Rx Instructions: administer into each nostril docusate calcium 240 mg capsule 240 mg PO DAILY PRN (Reason: Constipation) Patient Comments: months ago fexofenadine [Mayra Allergy] 180 mg tablet 180 mg PO DAILY PRN (Reason: Allergic Symptoms) Patient Comments: months ago mometasone 0.1 % solution 1 applic topical BID PRN (Reason: Ear Wax) oxycodone 5 mg tablet 5 mg PO DAILY PRN (Reason: Pain, Moderate) cholecalciferol (vitamin D3) 50 mcg (2,000 unit) capsule 100 mcg PO DAILY albuterol sulfate 90 mcg/actuation HFA aerosol inhaler 2 puff inhalation .PRN omeprazole 40 mg capsule,delayed release(DR/EC) 40 mg PO DAILY Patient Comments: take 1 capsule by mouth 30 MINUTES BEFORE MORNING MEAL calcium carbonate [Tums] 200 mg calcium (500 mg) tablet,chewable 200 mg PO BID PRN (Reason: gerd) famotidine [Acid Entry Level Sales Associate (famotidine)] 20 mg tablet 20 mg PO DAILY PRN (Reason: Indigestion) Patient Comments: months ago potassium citrate 250 100 ml PO DAILY PRN (Reason: Hypokalemia) pseudoephedrine HCl [Sudafed] 1 tab PO 3XD PRN (Reason: Allergy Symptoms) sildenafil 50 mg tablet 50 mg PO DAILY PRN (Reason: Sexual Activity) Patient Comments: hasnt started Rx Instructions: administer 30 minutes to 4 hours before activity Follow up/Referrals: Yesy Cortes MD [Primary Care Provider] - Discharge Health Status Multidrug resistant organism: No MDRO Diet/Activity/Treatments Diet: Regular Food texture: Regular Discharge Data Primary Care Provider: Yesy Cortes Quality MIPS - DC The patient has a history of heart transplant or Left Ventricular Assist Device (LVAD). If yes, STOP here.: No The patient has current or prior documentation of left ventricular ejection fraction (LVEF) less than or equal to 40%, or moderate or severely depressed left ventricular systolic function.: No
--- NOTE | 2024-07-15 16:06 | PC.NURSE ---
Patients chest tube to water seal, he is back to bed after sitting up in the chair for a few hours. Plan is to go to [facility] when their is a bed available. will be back later. Resting comfortably.
[2024-07-15] MEDS: ATORVASTATIN 20 MG TABLET 80 MG PO (20:26)
[2024-07-15] MEDS: GABAPENTIN 300 MG CAPSULE 600 MG PO (20:27)
[2024-07-15] MEDS: CYCLOBENZAPRINE 10 MG TABLET PO (20:28)
[2024-07-16] VITALS: BP 119/75; PULSE 60; RESP 19; TEMP 35.9; O2SAT 96
--- NOTE | 2024-07-22 15:22 | PC.NURSE ---
late entry 07/12 @1966 per RN IV acetaminophen DC'd
== END 2024-07-16 01:33 | disposition short-term general hospital (02) | DRG 200 ==
LOC: ED 20:37 → AC 22:24
PROVIDERS: Hospitalist; Admitting Provider Internal Medicine; Emergency Provider Emergency Medicine; Family Provider Physical Medicine & Rehabilitation; PCP Internal Medicine; Referring Provider Emergency Medicine; Visit Provider Internal Medicine
DX: J93.83 Other pneumothorax (principal); I69.354 Hemiplegia and hemiparesis following cerebral infarction affecting left non-dominant side; Z68.44 Body mass index [BMI] 60.0-69.9, adult; E66.01 Morbid (severe) obesity due to excess calories; J43.9 Emphysema, unspecified; M62.838 Other muscle spasm; I10 Essential (primary) hypertension; K21.9 Gastro-esophageal reflux disease without esophagitis; E78.5 Hyperlipidemia, unspecified; Z87.891 Personal history of nicotine dependence
CPT/HCPCS: 32551; 36415; 71045; 80048; 80053; 82550; 83690; 83735; 83880; 84484; 85025; 85027; 85610; 85730; 93005; 96365; 96375; 96376; 97110; 97140; 99231; 99285; 99291; J0136; J0780; J1170; J1650; J1790; J2270; J2405

== ENCOUNTER → 2024-07-23 16:17 | Outpatient (CLI) | payer MEDICARE, OTHER, SELFPAY ==
[2024-07-12 22:36] VITALS: BMI 68.0
--- NOTE | 2024-07-23 16:21 | DI.RAD.S_ITS ---
PROCEDURE: XR CHEST 2V INDICATIONS: Secondary spontaneous pneumothorax TECHNIQUE: 2 views of the chest were acquired. COMPARISON: [facility], CT, CT LUNG LOW DOSE SCREENING, 05/16/2024, 10:09. [facility], CR, XR CHEST 1V, 07/15/2024, 8:00. [facility], CR, XR CHEST 1V, 07/14/2024, 14:07. FINDINGS: Surgical changes and devices: Interval removal of left chest tube. Lungs and pleura: Moderate bilateral centrilobular and lingular paraseptal emphysema. No pleural effusions or residual pneumothorax. Mediastinum: Tortuous contour of the thoracic aorta. Mediastinal contours are normal. Heart size is normal. Bones and chest wall: Exaggerated thoracic kyphosis. No suspicious bony abnormalities. Soft tissues appear unremarkable. IMPRESSION: No residual left pneumothorax or lobar collapse. Dictated by: Dima Patino M.D. on 07/24/2024 at 13:09 Approved by: Dima Patino M.D. on 07/24/2024 at 13:14
== END ==
LOC: RAD 16:20
PROVIDERS: Family Provider Physical Medicine & Rehabilitation; PCP Internal Medicine; Referring Provider Thoracic Surgery (Cardiothoracic Vascular Surgery); Visit Provider Thoracic Surgery (Cardiothoracic Vascular Surgery)
DX: J43.2 Centrilobular emphysema (principal); J93.12 Secondary spontaneous pneumothorax
CPT/HCPCS: 71046

== ENCOUNTER 2024-10-31 11:30 | Outpatient (RCR) | payer MEDICARE, OTHER, SELFPAY ==
[2024-07-29 08:58] VITALS: BMI 68.0
--- NOTE | 2024-10-13 11:30 | PT.OIE ---
Current Diagnoses Stiffness of other specified joint, not elsewhere classified (10/13/24) Spondylolisthesis, lumbosacral region (10/13/24) Spondylosis without myelopathy or radiculopathy, lumbar region (10/13/24) Past Medical History (Last Reviewed 07/14/24 @ 08:00 by Lukas Reynolds MD) Arthritis Negro esophagus Essential hypertension Facet arthropathy, lumbar Fibromyalgia Gait instability Hyperlipidemia Hyperlipidemia Hypertension Non-seasonal allergic rhinitis Obesity (BMI 30-39.9) Obstructive sleep apnea, adult (~06/2021) Smoking Snoring Spondylolisthesis at L5-S1 level Stroke due to intracerebral hemorrhage Past Surgical History (Last Reviewed 07/14/24 @ 08:00 by Lukas Reynolds MD) History of cholecystectomy (~1979) History of hernia repair (~2005) History of varicose vein stripping (~1995) Hx of appendectomy (~1967) Hx of brain surgery Visit Care Team Role Provider Type Yesy Cortes MD Primary Care Provider Physician Specialty: Internal Medicine Address: [place], [address] Email: Leon Maravilla DO Attending Provider Physician Family Provider Referring Provider Specialty: Interventional Radiology Physiatry Pain Management Address: [facility] [facility], [place], [address] Email: [email or web address] Physical Therapy Initial Evaluation PT-OP-A Visit Information Start: 10/13/24 16:20 Freq: Status: Active Protocol: Document 10/13/24 10:45 DCW (Rec: 10/13/24 16:36 DC [id number]) Out-Patient Physical Therapy Visit Information Visit Information Visit Type Initial Evaluation Visit Start Time 10:45 Visit Stop Time 11:30 Visit Number 1 Number of CONCRETE FENCE BUILDER Visits 0 Evaluation Information Evaluation Date 10/13/24 PT-OP-B Current Condition Start: 10/13/24 16:20 Freq: Status: Active Protocol: Document 10/13/24 10:45 DCW (Rec: 10/13/24 16:36 DCW [id number]) Current Condition History of Current Condition Current Complaints Back pain, stiffness/tightness in morning, lumbar stenosis History of Current Condition Pt is a 74 year old male returning to skilled therapy secondary to ongoing low back pain. 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 Pt reports he underwent surgery at , then another one at [facility], spending one week in the hospital, and then discharged home. Pt's notes that it took about eight weeks, but is has largely returned to baseline. 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 Pt mobilizes with a wheelchair, as well as a walker and occasionally without an assistive device. Pt notes back pain is at its worst in the morning, has been diagnosed with arthritis and lumbar stenosis. Occasional bilateral radicular pain and cramping in his legs. Pt also has lingering left hemiparesis and left visual neglect s/p CVA. PT-OP-C Subjective Start: 10/13/24 16:20 Freq: Status: Active Protocol: Document 10/13/24 10:45 DCW (Rec: 10/13/24 16:36 DCW [id number]) OP-PT Subjective Patient Comments Patient Comments Pt feels overall happy with level of function five years s /p intraparenchymal hemorrhage , although worsening back pain is starting to limit his activity level more. PT-OP-E Functional Tests Start: 10/13/24 16:20 Freq: Status: Active Protocol: Document 10/13/24 10:45 DCW (Rec: 10/13/24 16:36 DCW [id number]) Functional Tests 30 Second Sit to Stand Test Score x6 repetitions Comments UE use PT-OP-F Manual Assessment Start: 10/13/24 16:20 Freq: Status: Active Protocol: Document 10/13/24 10:45 DCW (Rec: 10/13/24 16:36 DCW [id number]) Manual Assessments Soft Tissue Assessment Soft Tissue Mobility Assessment Moderate-severe tone along lumbar paraspinals, hip flexors, and hamstrings Joint Mobility Assessment Joint Mobility Assessment Lumbar hypomobility PT-OP-G Mobility & Gait Start: 10/13/24 16:36 Freq: Status: Active Protocol: Document 10/13/24 10:45 DCW (Rec: 10/13/24 16:37 DCW [id number]) OP Gait Assessment Comments Gait Comments Pt demonstrates AD-free gait, lateral trunk flexion, decreased stride length. Pt exhibits trunk and hip flexion throughout entire gait process. PT-OP-K Range of Motion Start: 10/13/24 16:20 Freq: Status: Active Protocol: Document 10/13/24 10:45 DCW (Rec: 10/13/24 16:36 DCW [id number]) Lumbar Spine Range of Motion Lumbar Spine Active Degrees Testing Position Standing Flexion 35 Extension 15 PT-OP-L Special Tests Start: 10/13/24 16:20 Freq: Status: Active Protocol: Document 10/13/24 10:45 DCW (Rec: 10/13/24 16:36 DCW [id number]) Special Tests Lumbar Spine Special Tests ZAKIA Test Results Bilateral ipsilateral pain A-P Shearing Test Results Negative Straight Leg Raise Test Results Hamstring tightness 35? R, 35? L Slump Test Results Hamstring tightness bilaterally Compression Test Results Negative Manual Traction Test Results c/o pain/tightness in hips PT-OP-M Strength Start: 10/13/24 16:20 Freq: Status: Active Protocol: Document 10/13/24 10:45 DCW (Rec: 10/13/24 16:36 DCW [id number]) Hip Strength Hip Manual Muscle Testing Right Flexion (L2) 4+ Good+ Extension (S1) 4- Good- Abduction 4 Good Adduction 4+ Good+ External Rotation 4+ Good+ Internal Rotation 4+ Good+ Left Flexion (L2) 4 Good Extension (S1) 4- Good- Abduction 4- Good- Adduction 4+ Good+ External Rotation 3- Fair- Internal Rotation 3- Fair- Knee Strength Knee Manual Muscle Testing Right Flexion (S2) 5 Normal Extension (L3) 5 Normal Left Flexion (S2) 4+ Good+ Extension (L3) 4+ Good+ PT-OP-Q Treatments Start: 10/13/24 16:20 Freq: Status: Active Protocol: Document 10/13/24 10:45 DCW (Rec: 10/13/24 16:38 DCW [id number]) Therapeutic Exercises Supine Exercises Single KtC Supine Exercise Name Single KtC Side bilateral Piriformis Stretch Supine Exercise Name Piriformis Stretch Side bilateral Hamstring Stretch Supine Exercise Name Hamstring Stretch Side bilateral PT-OP-T Assessment and Plan Start: 10/13/24 16:20 Freq: Status: Active Protocol: Document 10/13/24 10:45 DCW (Rec: 10/13/24 17:54 DCW [id number]) Physical Therapy Assessment Rehab Potential Rehabilitation Potential Good Evaluation Complexity Number of Personal Factors/Comorbidities 3 or More Number of Body Systems Impaired 4 or More Clinical Presentation at Evaluation Unstable Impairments Impairments Activity Tolerance,Functional Activities,Functional Mobility ,Gait,Pain,Posture,ROM,Soft Tissue Mobility,Strength,Tone Goals Three Impairment Pt exhibits decreased activity tolerance with score of x6 on 30sStS Distributed Generation Project Manager Goal (LTG) Pt to improve 30sStS score to at least x9 to demonstrate improved activity tolerance LTG Duration 01/11/25 Two Impairment Limitations in lumbar flexion (35?) Correction Goal (LTG) Pt to exhibit improvement in lumbar mobility to >55? 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 LTG Duration 01/11/25 One Impairment Pt does not have an appropriate home exercise program Short Term Goal (STG) Pt to be independent and compliant with an appropriate HEP STG Duration 11/12/24 Assessment Summary Assessment Pt presents with signs and symptoms consistent with referring diagnosis of spinal stenosis. Pt displays increased soft tissue tone, decreased lumbar mobility, core and LE weakness, and decreased activity tolerance. Pt has difficulty standing upright secondary to weakness and secondary effects from prior CVA. Pt will likely benefit from skilled therapy focusing on LE and core strengthening, lumbar mobility , STM, joint mobilizations, posture training, and increasing activity tolerance. Rehab potential complicated by prior history of CVA and gait instability. Physical Therapy Plan Frequency and Duration Frequency of Treatment 2x/Week Plan of Care Start Date 10/13/24 Plan of Care End Date 01/11/25 Therapeutic Interventions Therapeutic Interventions Balance Training,Gait Training ,Home Exercise Program,Joint Mobilizations,Manual Therapy, Neuromuscular Re-education, Patient/Caregiver Education, Self-Care/Home Management,Soft Tissue Mobilization, Therapeutic Activities, Therapeutic Exercises Modalities Cold Pack/Ice Massage,Hot Packs Next Visit Focus/Plan Next Note Type Treatment Note Next Visit Plan LE/core strengthening, STM, joint mobilizations, increase activity tolerance
--- NOTE | 2024-10-13 11:31 | PT.OPPOC ---
Physical, Occupational & Speech Therapy At [facility] Current Diagnoses Stiffness of other specified joint, not elsewhere classified (10/13/24) Spondylolisthesis, lumbosacral region (10/13/24) Spondylosis without myelopathy or radiculopathy, lumbar region (10/13/24) Visit Care Team Role Provider Type Yesy Cortes MD Primary Care Provider Physician Specialty: Internal Medicine Address: [place], [address] Email: Leon Maravilla DO Attending Provider Physician Family Provider Referring Provider Specialty: Interventional Radiology Physiatry Pain Management Address: [address], [place], [address] Email: [email or web address] Plan Of Care PT-OP-B Current Condition Start: 10/13/24 16:20 Freq: Status: Active Protocol: Document 10/13/24 10:45 DCW (Rec: 10/13/24 16:36 DCW [id number]) Current Condition History of Current Condition Current Complaints Back pain, stiffness/tightness in morning, lumbar stenosis History of Current Condition Pt is a 74 year old male returning to skilled therapy secondary to ongoing low back pain. 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 Pt reports he underwent surgery at , then another one at [facility], spending one week in the hospital, and then discharged home. Pt's notes that it took about eight weeks, but is has largely returned to baseline. 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 Pt mobilizes with a wheelchair, as well as a walker and occasionally without an assistive device. Pt notes back pain is at its worst in the morning, has been diagnosed with arthritis and lumbar stenosis. Occasional bilateral radicular pain and cramping in his legs. Pt also has lingering left hemiparesis and left visual neglect s/p CVA. PT-OP-T Assessment and Plan Start: 10/13/24 16:20 Freq: Status: Active Protocol: Document 10/13/24 10:45 DCW (Rec: 10/13/24 17:54 DCW [id number]) Physical Therapy Assessment Rehab Potential Rehabilitation Potential Good Evaluation Complexity Number of Personal Factors/Comorbidities 3 or More Number of Body Systems Impaired 4 or More Clinical Presentation at Evaluation Unstable Impairments Impairments Activity Tolerance,Functional Activities,Functional Mobility ,Gait,Pain,Posture,ROM,Soft Tissue Mobility,Strength,Tone Goals Three Impairment Pt exhibits decreased activity tolerance with score of x6 on 30sStS Ballast Inspector Goal (LTG) Pt to improve 30sStS score to at least x9 to demonstrate improved activity tolerance LTG Duration 01/11/25 Two Impairment Limitations in lumbar flexion (35?) Ballast Inspector Goal (LTG) Pt to exhibit improvement in lumbar mobility to >55? 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 LTG Duration 01/11/25 One Impairment Pt does not have an appropriate home exercise program Short Term Goal (STG) Pt to be independent and compliant with an appropriate HEP STG Duration 11/12/24 Assessment Summary Assessment Pt presents with signs and symptoms consistent with referring diagnosis of spinal stenosis. Pt displays increased soft tissue tone, decreased lumbar mobility, core and LE weakness, and decreased activity tolerance. Pt has difficulty standing upright secondary to weakness and secondary effects from prior CVA. Pt will likely benefit from skilled therapy focusing on LE and core strengthening, lumbar mobility , STM, joint mobilizations, posture training, and increasing activity tolerance. Rehab potential complicated by prior history of CVA and gait instability. Physical Therapy Plan Frequency and Duration Frequency of Treatment 2x/Week Plan of Care Start Date 10/13/24 Plan of Care End Date 01/11/25 Therapeutic Interventions Therapeutic Interventions Balance Training,Gait Training ,Home Exercise Program,Joint Mobilizations,Manual Therapy, Neuromuscular Re-education, Patient/Caregiver Education, Self-Care/Home Management,Soft Tissue Mobilization, Therapeutic Activities, Therapeutic Exercises Modalities Cold Pack/Ice Massage,Hot Packs Next Visit Focus/Plan Next Note Type Treatment Note Next Visit Plan LE/core strengthening, STM, joint mobilizations, increase activity tolerance Plan of Care Dates Plan of Care Start Date 10/13/24 Plan of Care End Date 01/11/25 Electronically Signed by: Osbaldo Barrios, PT 10/14/24 0936 If you are in agreement with this Plan of Care, please return a signed and dated copy. I have reviewed this Plan of Care and certify that the skilled therapy services above are required to meet the patient?s needs. Physician Signature Date Printed Name and Credentials Clinical Instructor Signature Printed Name and Credentials
--- NOTE | 2024-10-15 12:15 | PT.OTN ---
Current Diagnoses Stiffness of other specified joint, not elsewhere classified (10/15/24) Spondylolisthesis, lumbosacral region (10/15/24) Spondylosis without myelopathy or radiculopathy, lumbar region (10/15/24) Physical Therapy Treatment Note PT-OP-A Visit Information Start: 10/13/24 16:20 Freq: Status: Active Protocol: Document 10/15/24 11:30 DCW (Rec: 10/15/24 12:15 DCW [id number]) Out-Patient Physical Therapy Visit Information Visit Information Visit Type Treatment Note Visit Start Time 11:30 Visit Stop Time 12:15 Visit Number 2 Number of SIGN LANGUAGE INTERPRETER Visits 0 Evaluation Information Evaluation Date 10/13/24 PT-OP-B Current Condition Start: 10/13/24 16:20 Freq: Status: Active Protocol: Document 10/13/24 10:45 DCW (Rec: 10/13/24 16:36 DCW [id number]) Current Condition History of Current Condition Current Complaints Back pain, stiffness/tightness in morning, lumbar stenosis History of Current Condition Pt is a 74 year old male returning to skilled therapy secondary to ongoing low back pain. 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 Pt reports he underwent surgery at , then another one at [facility], spending one week in the hospital, and then discharged home. Pt's notes that it took about eight weeks, but is has largely returned to baseline. 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 Pt mobilizes with a wheelchair, as well as a walker and occasionally without an assistive device. Pt notes back pain is at its worst in the morning, has been diagnosed with arthritis and lumbar stenosis. Occasional bilateral radicular pain and cramping in his legs. Pt also has lingering left hemiparesis and left visual neglect s/p CVA. PT-OP-C Subjective Start: 10/13/24 16:20 Freq: Status: Active Protocol: Document 10/15/24 11:30 DCW (Rec: 10/15/24 12:15 DCW [id number]) OP-PT Subjective Patient Comments Patient Comments Pt reports his left leg was pretty sore the past two days. PT-OP-E Functional Tests Start: 10/13/24 16:20 Freq: Status: Active Protocol: Document 10/13/24 10:45 DCW (Rec: 10/13/24 16:36 DCW [id number]) Functional Tests 30 Second Sit to Stand Test Score x6 repetitions Comments UE use PT-OP-F Manual Assessment Start: 10/13/24 16:20 Freq: Status: Active Protocol: Document 10/13/24 10:45 DCW (Rec: 10/13/24 16:36 DCW [id number]) Manual Assessments Soft Tissue Assessment Soft Tissue Mobility Assessment Moderate-severe tone along lumbar paraspinals, hip flexors, and hamstrings Joint Mobility Assessment Joint Mobility Assessment Lumbar hypomobility PT-OP-G Mobility & Gait Start: 10/13/24 16:36 Freq: Status: Active Protocol: Document 10/13/24 10:45 DCW (Rec: 10/13/24 16:37 DCW [id number]) OP Gait Assessment Comments Gait Comments Pt demonstrates AD-free gait, lateral trunk flexion, decreased stride length. Pt exhibits trunk and hip flexion throughout entire gait process. PT-OP-K Range of Motion Start: 10/13/24 16:20 Freq: Status: Active Protocol: Document 10/13/24 10:45 DCW (Rec: 10/13/24 16:36 DCW [id number]) Lumbar Spine Range of Motion Lumbar Spine Active Degrees Testing Position Standing Flexion 35 Extension 15 PT-OP-L Special Tests Start: 10/13/24 16:20 Freq: Status: Active Protocol: Document 10/13/24 10:45 DCW (Rec: 10/13/24 16:36 DCW [id number]) Special Tests Lumbar Spine Special Tests ZAKIA Test Results Bilateral ipsilateral pain A-P Shearing Test Results Negative Straight Leg Raise Test Results Hamstring tightness 35? R, 35? L Slump Test Results Hamstring tightness bilaterally Compression Test Results Negative Manual Traction Test Results c/o pain/tightness in hips PT-OP-M Strength Start: 10/13/24 16:20 Freq: Status: Active Protocol: Document 10/13/24 10:45 DCW (Rec: 10/13/24 16:36 DCW [id number]) Hip Strength Hip Manual Muscle Testing Right Flexion (L2) 4+ Good+ Extension (S1) 4- Good- Abduction 4 Good Adduction 4+ Good+ External Rotation 4+ Good+ Internal Rotation 4+ Good+ Left Flexion (L2) 4 Good Extension (S1) 4- Good- Abduction 4- Good- Adduction 4+ Good+ External Rotation 3- Fair- Internal Rotation 3- Fair- Knee Strength Knee Manual Muscle Testing Right Flexion (S2) 5 Normal Extension (L3) 5 Normal Left Flexion (S2) 4+ Good+ Extension (L3) 4+ Good+ PT-OP-Q Treatments Start: 10/13/24 16:20 Freq: Status: Active Protocol: Document 10/15/24 11:30 DCW (Rec: 10/15/24 12:15 DCW [id number]) Gym Equipment Therapeutic Ball LTR Exercise Details LTR Ball Size/Color Red - 55 cm Body Position Supine Therapeutic Exercises Supine Exercises Single KtC Supine Exercise Name Single KtC Side bilateral Piriformis Stretch Supine Exercise Name Piriformis Stretch Side bilateral Hamstring Stretch Supine Exercise Name Hamstring Stretch Side bilateral Gait Training Gait Activity Trekking Pole Device Used Unilateral (R) RatherGatherkking pole Level of Assistance SBA Treatment Focus Improve posture and stability during gait Manual Therapy Treatment Soft Tissue Mobilization Scar Massage Body Location Left trunk Body Position Sidelying Comments Scar massage of incision site of collapsed lung PT-OP-T Assessment and Plan Start: 10/13/24 16:20 Freq: Status: Active Protocol: Document 10/15/24 11:30 DCW (Rec: 10/15/24 12:15 DCW [id number]) Physical Therapy Assessment Impairments Impairments Activity Tolerance,Functional Activities,Functional Mobility ,Gait,Pain,Posture,ROM,Soft Tissue Mobility,Strength,Tone Goals Three Impairment Pt exhibits decreased activity tolerance with score of x6 on 30sStS Fire Watcher Goal (LTG) Pt to improve 30sStS score to at least x9 to demonstrate improved activity tolerance LTG Duration 01/11/25 Two Impairment Limitations in lumbar flexion (35?) Fire Watcher Goal (LTG) Pt to exhibit improvement in lumbar mobility to >55? 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 LTG Duration 01/11/25 One Impairment Pt does not have an appropriate home exercise program Short Term Goal (STG) Pt to be independent and compliant with an appropriate HEP STG Duration 11/12/24 Assessment Summary Assessment Trial of Personal Web Systemskking pole during gait, pt did very well, able to stand up straighter and ambulated with less path deviation. Spent some time today working on scar mobility from incision from surgical intervention of lung collapse. Pt tolerated well. Physical Therapy Plan Frequency and Duration Frequency of Treatment 2x/Week Plan of Care Start Date 10/13/24 Plan of Care End Date 01/11/25 Therapeutic Interventions Therapeutic Interventions Balance Training,Gait Training ,Home Exercise Program,Joint Mobilizations,Manual Therapy, Neuromuscular Re-education, Patient/Caregiver Education, Self-Care/Home Management,Soft Tissue Mobilization, Therapeutic Activities, Therapeutic Exercises Modalities Cold Pack/Ice Massage,Hot Packs Next Visit Focus/Plan Next Note Type Treatment Note Next Visit Plan LE/core strengthening, STM, joint mobilizations, increase activity tolerance
--- NOTE | 2024-10-20 12:17 | PT.OTN ---
Current Diagnoses Stiffness of other specified joint, not elsewhere classified (10/20/24) Spondylolisthesis, lumbosacral region (10/20/24) Spondylosis without myelopathy or radiculopathy, lumbar region (10/20/24) Physical Therapy Treatment Note PT-OP-A Visit Information Start: 10/13/24 16:20 Freq: Status: Active Protocol: Document 10/20/24 11:35 SP (Rec: 10/20/24 12:32 SP [id number]) Out-Patient Physical Therapy Visit Information Visit Information Visit Type Treatment Note Visit Start Time 11:35 Visit Stop Time 12:17 Visit Number 3 (01/26 with eval) Number of REVIEW RN Visits 1 Evaluation Information Evaluation Date 10/13/24 Precautions Precautions *lingering left hemiparesis and left visual neglect s/p CVA, no peripherial sight front to L. PT-OP-B Current Condition Start: 10/13/24 16:20 Freq: Status: Active Protocol: Document 10/13/24 10:45 DCW (Rec: 10/13/24 16:36 DCW [id number]) Current Condition History of Current Condition Current Complaints Back pain, stiffness/tightness in morning, lumbar stenosis History of Current Condition Pt is a 74 year old male returning to skilled therapy secondary to ongoing low back pain. 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 Pt reports he underwent surgery at , then another one at [facility], spending one week in the hospital, and then discharged home. Pt's notes that it took about eight weeks, but is has largely returned to baseline. 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 Pt mobilizes with a wheelchair, as well as a walker and occasionally without an assistive device. Pt notes back pain is at its worst in the morning, has been diagnosed with arthritis and lumbar stenosis. Occasional bilateral radicular pain and cramping in his legs. Pt also has lingering left hemiparesis and left visual neglect s/p CVA. PT-OP-C Subjective Start: 10/13/24 16:20 Freq: Status: Active Protocol: Document 10/20/24 11:35 SP (Rec: 10/20/24 12:32 SP [id number]) OP-PT Subjective Patient Comments Patient Comments Pt reports felt ok after last tx. Was not given HEP. Pt arrives with no AD, viers off to R walking to gym with miss step. PT-OP-E Functional Tests Start: 10/13/24 16:20 Freq: Status: Active Protocol: Document 10/13/24 10:45 DCW (Rec: 10/13/24 16:36 DCW [id number]) Functional Tests 30 Second Sit to Stand Test Score x6 repetitions Comments UE use PT-OP-F Manual Assessment Start: 10/13/24 16:20 Freq: Status: Active Protocol: Document 10/13/24 10:45 DCW (Rec: 10/13/24 16:36 DCW [id number]) Manual Assessments Soft Tissue Assessment Soft Tissue Mobility Assessment Moderate-severe tone along lumbar paraspinals, hip flexors, and hamstrings Joint Mobility Assessment Joint Mobility Assessment Lumbar hypomobility PT-OP-G Mobility & Gait Start: 10/13/24 16:36 Freq: Status: Active Protocol: Document 10/13/24 10:45 DCW (Rec: 10/13/24 16:37 DCW [id number]) OP Gait Assessment Comments Gait Comments Pt demonstrates AD-free gait, lateral trunk flexion, decreased stride length. Pt exhibits trunk and hip flexion throughout entire gait process. PT-OP-K Range of Motion Start: 10/13/24 16:20 Freq: Status: Active Protocol: Document 10/13/24 10:45 DCW (Rec: 10/13/24 16:36 DCW [id number]) Lumbar Spine Range of Motion Lumbar Spine Active Degrees Testing Position Standing Flexion 35 Extension 15 PT-OP-L Special Tests Start: 10/13/24 16:20 Freq: Status: Active Protocol: Document 10/13/24 10:45 DCW (Rec: 10/13/24 16:36 DCW [id number]) Special Tests Lumbar Spine Special Tests ZAKIA Test Results Bilateral ipsilateral pain A-P Shearing Test Results Negative Straight Leg Raise Test Results Hamstring tightness 35? R, 35? L Slump Test Results Hamstring tightness bilaterally Compression Test Results Negative Manual Traction Test Results c/o pain/tightness in hips PT-OP-M Strength Start: 11/25/24 16:20 Freq: Status: Active Protocol: Document 10/13/24 10:45 DCW (Rec: 10/13/24 16:36 DCW [id number]) Hip Strength Hip Manual Muscle Testing Right Flexion (L2) 4+ Good+ Extension (S1) 4- Good- Abduction 4 Good Adduction 4+ Good+ External Rotation 4+ Good+ Internal Rotation 4+ Good+ Left Flexion (L2) 4 Good Extension (S1) 4- Good- Abduction 4- Good- Adduction 4+ Good+ External Rotation 3- Fair- Internal Rotation 3- Fair- Knee Strength Knee Manual Muscle Testing Right Flexion (S2) 5 Normal Extension (L3) 5 Normal Left Flexion (S2) 4+ Good+ Extension (L3) 4+ Good+ PT-OP-Q Treatments Start: 10/13/24 16:20 Freq: Status: Active Protocol: Document 10/20/24 11:35 SP (Rec: 10/20/24 12:32 SP [id number]) Gym Equipment Therapeutic Ball LTR Exercise Details LTR Ball Size/Color Red - 55 cm Body Position Hooklying Reps/Duration 2x15 reps Therapeutic Exercises Supine Exercises LTR Supine Exercise Name added to HEP /c HO Side bilateral Resistance AROM- to therapist hand, ed with April for carryover home Reps/Minutes x10 Comments tactile cues for increased ROM , slower pacing, pnfree range Single KtC Supine Exercise Name Single KtC: added to HEP /c HO Side bilateral Resistance hand over hand- able to hold self clasp fingers Reps/Minutes 30 SH Comments good posterior pelvis gentle stretch Piriformis Stretch Supine Exercise Name Piriformis Stretch Side bilateral Resistance Manual L then able hold, R LE self hand over hand for positioning Reps/Minutes 30 SH each side Hamstring Stretch Supine Exercise Name Hamstring Stretch- inPT Side bilateral Resistance manual Equipment Used unable position use BUEs, use towel or strap onfoot Reps/Minutes 30 SH each side Comments challenging pt do himself Gait Training Gait Activity no AD Description *visual neglect on L. Device Used 0 Level of Assistance close SBA<>CGA/Min A Distance/Duration 80 ft from waiting room Treatment Focus Improve posture and stability during gait Comments walking back to gym viers off to R, mis step, Min A recovery , cues for directioning navigation through gym, not to close to chairs on R. Trekking Pole Device Used Unilateral (R) Trekking pole Level of Assistance CGA Distance/Duration 30 ft x2 laps, 170 ft around clinic Treatment Focus Improve posture and stability during gait Comments cued for taller posturing, sequencing with LLE, midline- improves with cues for slower pacing & increase SRIDEVI due to L tended to scissor step over R . PT-OP-T Assessment and Plan Start: 10/13/24 16:20 Freq: Status: Active Protocol: Document 10/20/24 11:35 SP (Rec: 10/20/24 12:32 SP [id number]) Physical Therapy Assessment Goals Three Impairment Pt exhibits decreased activity tolerance with score of x6 on 30sStS Correction Goal (LTG) Pt to improve 30sStS score to at least x9 to demonstrate improved activity tolerance LTG Duration 01/11/25 Two Impairment Limitations in lumbar flexion (35?) Child Life Therapist Goal (LTG) Pt to exhibit improvement in lumbar mobility to >55? 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 LTG Duration 01/11/25 One Impairment Pt does not have an appropriate home exercise program Short Term Goal (STG) Pt to be independent and compliant with an appropriate HEP STG Duration 11/12/24 Assessment Summary Assessment Pt improved TA and oblique LTR AROM with tactile cues for range painfree to support mobility for gait. Improved midline stabiltiy use of unilateral trek pole in RUE patterning /c LLE with cuing for slower pacing, look up in front and increase SRIDEVI on L. Education for continue use of upright rolling walker for stabiltiy while work on progress in PT, and pt verbalized understanding and in agreement. Physical Therapy Plan Frequency and Duration Frequency of Treatment 2x/Week Plan of Care Start Date 10/13/24 Plan of Care End Date 01/11/25 Therapeutic Interventions Therapeutic Interventions Balance Training,Gait Training ,Home Exercise Program,Joint Mobilizations,Manual Therapy, Neuromuscular Re-education, Patient/Caregiver Education, Self-Care/Home Management,Soft Tissue Mobilization, Therapeutic Activities, Therapeutic Exercises Modalities Cold Pack/Ice Massage,Hot Packs Next Visit Focus/Plan Next Note Type Treatment Note Next Visit Plan LE/core strengthening, STM, joint mobilizations, increase activity tolerance
--- NOTE | 2024-10-24 12:18 | PT.OTN ---
Current Diagnoses Stiffness of other specified joint, not elsewhere classified (10/24/24) Spondylolisthesis, lumbosacral region (10/24/24) Spondylosis without myelopathy or radiculopathy, lumbar region (10/24/24) Physical Therapy Treatment Note PT-OP-A Visit Information Start: 10/13/24 16:20 Freq: Status: Active Protocol: Document 10/24/24 11:30 DCW (Rec: 10/24/24 12:18 DCW [id number]) Out-Patient Physical Therapy Visit Information Visit Information Visit Type Treatment Note Visit Start Time 11:30 Visit Stop Time 12:15 Visit Number 4 Number of BUTTON TUFTER Visits 0 Evaluation Information Evaluation Date 10/13/24 Precautions Precautions *lingering left hemiparesis and left visual neglect s/p CVA, no peripherial sight front to L. PT-OP-B Current Condition Start: 10/13/24 16:20 Freq: Status: Active Protocol: Document 10/13/24 10:45 DCW (Rec: 10/13/24 16:36 DCW [id number]) Current Condition History of Current Condition Current Complaints Back pain, stiffness/tightness in morning, lumbar stenosis History of Current Condition Pt is a 74 year old male returning to skilled therapy secondary to ongoing low back pain. 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 Pt reports he underwent surgery at , then another one at [facility], spending one week in the hospital, and then discharged home. Pt's notes that it took about eight weeks, but is has largely returned to baseline. 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 Pt mobilizes with a wheelchair, as well as a walker and occasionally without an assistive device. Pt notes back pain is at its worst in the morning, has been diagnosed with arthritis and lumbar stenosis. Occasional bilateral radicular pain and cramping in his legs. Pt also has lingering left hemiparesis and left visual neglect s/p CVA. PT-OP-C Subjective Start: 10/13/24 16:20 Freq: Status: Active Protocol: Document 10/24/24 11:30 DCW (Rec: 10/24/24 12:18 DCW [id number]) OP-PT Subjective Patient Comments Patient Comments Pt reports he has ordered trekking poles, hoping to have by next week. PT-OP-E Functional Tests Start: 10/13/24 16:20 Freq: Status: Active Protocol: Document 10/13/24 10:45 DCW (Rec: 10/13/24 16:36 DCW [id number]) Functional Tests 30 Second Sit to Stand Test Score x6 repetitions Comments UE use PT-OP-F Manual Assessment Start: 10/13/24 16:20 Freq: Status: Active Protocol: Document 10/13/24 10:45 DCW (Rec: 10/13/24 16:36 DCW [id number]) Manual Assessments Soft Tissue Assessment Soft Tissue Mobility Assessment Moderate-severe tone along lumbar paraspinals, hip flexors, and hamstrings Joint Mobility Assessment Joint Mobility Assessment Lumbar hypomobility PT-OP-G Mobility & Gait Start: 10/13/24 16:36 Freq: Status: Active Protocol: Document 10/13/24 10:45 DCW (Rec: 10/13/24 16:37 DCW [id number]) OP Gait Assessment Comments Gait Comments Pt demonstrates AD-free gait, lateral trunk flexion, decreased stride length. Pt exhibits trunk and hip flexion throughout entire gait process. PT-OP-K Range of Motion Start: 10/13/24 16:20 Freq: Status: Active Protocol: Document 10/13/24 10:45 DCW (Rec: 10/13/24 16:36 DCW [id number]) Lumbar Spine Range of Motion Lumbar Spine Active Degrees Testing Position Standing Flexion 35 Extension 15 PT-OP-L Special Tests Start: 10/13/24 16:20 Freq: Status: Active Protocol: Document 10/13/24 10:45 DCW (Rec: 10/13/24 16:36 DCW [id number]) Special Tests Lumbar Spine Special Tests ZAKIA Test Results Bilateral ipsilateral pain A-P Shearing Test Results Negative Straight Leg Raise Test Results Hamstring tightness 35? R, 35? L Slump Test Results Hamstring tightness bilaterally Compression Test Results Negative Manual Traction Test Results c/o pain/tightness in hips PT-OP-M Strength Start: 10/13/24 16:20 Freq: Status: Active Protocol: Document 10/13/24 10:45 DCW (Rec: 10/13/24 16:36 DCW [id number]) Hip Strength Hip Manual Muscle Testing Right Flexion (L2) 4+ Good+ Extension (S1) 4- Good- Abduction 4 Good Adduction 4+ Good+ External Rotation 4+ Good+ Internal Rotation 4+ Good+ Left Flexion (L2) 4 Good Extension (S1) 4- Good- Abduction 4- Good- Adduction 4+ Good+ External Rotation 3- Fair- Internal Rotation 3- Fair- Knee Strength Knee Manual Muscle Testing Right Flexion (S2) 5 Normal Extension (L3) 5 Normal Left Flexion (S2) 4+ Good+ Extension (L3) 4+ Good+ PT-OP-Q Treatments Start: 10/13/24 16:20 Freq: Status: Active Protocol: Document 10/24/24 11:30 DCW (Rec: 10/24/24 12:18 DCW [id number]) Gym Equipment Therapeutic Ball LTR Exercise Details LTR Ball Size/Color Red - 55 cm Body Position Hooklying Reps/Duration 2x15 reps Therapeutic Exercises Supine Exercises Single KtC Supine Exercise Name Single KtC Side bilateral Piriformis Stretch Supine Exercise Name Piriformis Stretch Side bilateral Hamstring Stretch Supine Exercise Name Hamstring Stretch Side bilateral Gait Training Gait Activity Trekking Pole Device Used Unilateral (R) Trekking pole Level of Assistance SBA Distance/Duration 400' around clinic Treatment Focus Improve posture and stability during gait Manual Therapy Treatment Soft Tissue Mobilization Scar Massage Body Location Left trunk Body Position Sidelying Comments Scar massage of incision site of collapsed lung PT-OP-T Assessment and Plan Start: 10/13/24 16:20 Freq: Status: Active Protocol: Document 10/24/24 11:30 DCW (Rec: 10/24/24 12:18 DCW [id number]) Physical Therapy Assessment Impairments Impairments Activity Tolerance,Functional Activities,Functional Mobility ,Gait,Pain,Posture,ROM,Soft Tissue Mobility,Strength,Tone Goals Three Impairment Pt exhibits decreased activity tolerance with score of x6 on 30sStS Nursing Home Goal (LTG) Pt to improve 30sStS score to at least x9 to demonstrate improved activity tolerance LTG Duration 01/11/25 Two Impairment Limitations in lumbar flexion (35?) Nursing Home Goal (LTG) Pt to exhibit improvement in lumbar mobility to >55? 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 LTG Duration 01/11/25 One Impairment Pt does not have an appropriate home exercise program Short Term Goal (STG) Pt to be independent and compliant with an appropriate HEP STG Duration 11/12/24 Assessment Summary Assessment Spent more time today training with unilateral trekking pole , pt showing good improvement with stability. Reviewed importance of stretching for HEP. Continue working on lumbar mobility, STM, and strengthening. Physical Therapy Plan Frequency and Duration Frequency of Treatment 2x/Week Plan of Care Start Date 10/13/24 Plan of Care End Date 01/11/25 Therapeutic Interventions Therapeutic Interventions Balance Training,Gait Training ,Home Exercise Program,Joint Mobilizations,Manual Therapy, Neuromuscular Re-education, Patient/Caregiver Education, Self-Care/Home Management,Soft Tissue Mobilization, Therapeutic Activities, Therapeutic Exercises Modalities Cold Pack/Ice Massage,Hot Packs Next Visit Focus/Plan Next Note Type Treatment Note Next Visit Plan LE/core strengthening, STM, joint mobilizations, increase activity tolerance
--- NOTE | 2024-10-29 12:58 | PT.OTN ---
Current Diagnoses Stiffness of other specified joint, not elsewhere classified (10/29/24) Spondylolisthesis, lumbosacral region (10/29/24) Spondylosis without myelopathy or radiculopathy, lumbar region (10/29/24) Physical Therapy Treatment Note PT-OP-A Visit Information Start: 10/13/24 16:20 Freq: Status: Active Protocol: Document 10/29/24 12:17 DCW (Rec: 10/29/24 12:58 DCW [id number]) Out-Patient Physical Therapy Visit Information Visit Information Visit Type Treatment Note Visit Start Time 12:17 Visit Stop Time 13:00 Visit Number 5 Number of CHIEF DEPUTY Visits 0 Evaluation Information Evaluation Date 10/13/24 Precautions Precautions *lingering left hemiparesis and left visual neglect s/p CVA, no peripherial sight front to L. PT-OP-B Current Condition Start: 10/13/24 16:20 Freq: Status: Active Protocol: Document 10/13/24 10:45 DCW (Rec: 10/13/24 16:36 DCW [id number]) Current Condition History of Current Condition Current Complaints Back pain, stiffness/tightness in morning, lumbar stenosis History of Current Condition Pt is a 74 year old male returning to skilled therapy secondary to ongoing low back pain. 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 Pt reports he underwent surgery at , then another one at [facility], spending one week in the hospital, and then discharged home. Pt's notes that it took about eight weeks, but is has largely returned to baseline. 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 Pt mobilizes with a wheelchair, as well as a walker and occasionally without an assistive device. Pt notes back pain is at its worst in the morning, has been diagnosed with arthritis and lumbar stenosis. Occasional bilateral radicular pain and cramping in his legs. Pt also has lingering left hemiparesis and left visual neglect s/p CVA. PT-OP-C Subjective Start: 10/13/24 16:20 Freq: Status: Active Protocol: Document 10/29/24 12:17 DCW (Rec: 10/29/24 12:58 DCW [id number]) OP-PT Subjective Patient Comments Patient Comments Pt notes his incision was pretty sore following scar mobs last week. PT-OP-E Functional Tests Start: 10/13/24 16:20 Freq: Status: Active Protocol: Document 10/13/24 10:45 DCW (Rec: 10/13/24 16:36 DCW [id number]) Functional Tests 30 Second Sit to Stand Test Score x6 repetitions Comments UE use PT-OP-F Manual Assessment Start: 10/13/24 16:20 Freq: Status: Active Protocol: Document 10/13/24 10:45 DCW (Rec: 10/13/24 16:36 DCW [id number]) Manual Assessments Soft Tissue Assessment Soft Tissue Mobility Assessment Moderate-severe tone along lumbar paraspinals, hip flexors, and hamstrings Joint Mobility Assessment Joint Mobility Assessment Lumbar hypomobility PT-OP-G Mobility & Gait Start: 10/13/24 16:36 Freq: Status: Active Protocol: Document 10/13/24 10:45 DCW (Rec: 10/13/24 16:37 DCW [id number]) OP Gait Assessment Comments Gait Comments Pt demonstrates AD-free gait, lateral trunk flexion, decreased stride length. Pt exhibits trunk and hip flexion throughout entire gait process. PT-OP-K Range of Motion Start: 10/13/24 16:20 Freq: Status: Active Protocol: Document 10/13/24 10:45 DCW (Rec: 10/13/24 16:36 DCW [id number]) Lumbar Spine Range of Motion Lumbar Spine Active Degrees Testing Position Standing Flexion 35 Extension 15 PT-OP-L Special Tests Start: 10/13/24 16:20 Freq: Status: Active Protocol: Document 10/13/24 10:45 DCW (Rec: 10/13/24 16:36 DCW [id number]) Special Tests Lumbar Spine Special Tests ZAKIA Test Results Bilateral ipsilateral pain A-P Shearing Test Results Negative Straight Leg Raise Test Results Hamstring tightness 35? R, 35? L Slump Test Results Hamstring tightness bilaterally Compression Test Results Negative Manual Traction Test Results c/o pain/tightness in hips PT-OP-M Strength Start: 10/13/24 16:20 Freq: Status: Active Protocol: Document 10/13/24 10:45 DCW (Rec: 10/13/24 16:36 DCW [id number]) Hip Strength Hip Manual Muscle Testing Right Flexion (L2) 4+ Good+ Extension (S1) 4- Good- Abduction 4 Good Adduction 4+ Good+ External Rotation 4+ Good+ Internal Rotation 4+ Good+ Left Flexion (L2) 4 Good Extension (S1) 4- Good- Abduction 4- Good- Adduction 4+ Good+ External Rotation 3- Fair- Internal Rotation 3- Fair- Knee Strength Knee Manual Muscle Testing Right Flexion (S2) 5 Normal Extension (L3) 5 Normal Left Flexion (S2) 4+ Good+ Extension (L3) 4+ Good+ PT-OP-Q Treatments Start: 10/13/24 16:20 Freq: Status: Active Protocol: Document 10/29/24 12:17 DCW (Rec: 10/29/24 12:58 DCW [id number]) Gym Equipment Therapeutic Ball Bridging Exercise Details Bridging /c feet on ball Ball Size/Color Red - 55 cm Hip Flexion Exercise Details Resisted hip/knee flexion Ball Size/Color Red - 55 cm Lv 2 T-band Body Position Supine LTR Exercise Details LTR Ball Size/Color Red - 55 cm Body Position Hooklying Reps/Duration 2x15 reps Pelvic Circles Exercise Details Pelvic Tilt/Circles Ball Size/Color Green - 65 cm Body Position Sitting Therapeutic Exercises Supine Exercises Single KtC Supine Exercise Name Single KtC Side bilateral Piriformis Stretch Supine Exercise Name Piriformis Stretch Side bilateral Hamstring Stretch Supine Exercise Name Hamstring Stretch Side bilateral Manual Therapy Treatment Consent Patient gave verbal consent for manual Yes treatment Soft Tissue Mobilization Lumbar Body Location Lumbar paraspinals Mobilization Type Strumming,Trigger Point Release Body Position Sidelying PT-OP-T Assessment and Plan Start: 10/13/24 16:20 Freq: Status: Active Protocol: Document 10/29/24 12:17 DCW (Rec: 10/29/24 12:58 DCW [id number]) Physical Therapy Assessment Assessment Summary Assessment Pt tolerated STM well today, showing improvement with gait using trekking pole. Brought his own from home today, assisted in proper sizing. Continue to work on lumbar mobility, pain control, and tome management. Physical Therapy Plan Frequency and Duration Frequency of Treatment 2x/Week Plan of Care Start Date 10/13/24 Plan of Care End Date 01/11/25 Therapeutic Interventions Therapeutic Interventions Balance Training,Gait Training ,Home Exercise Program,Joint Mobilizations,Manual Therapy, Neuromuscular Re-education, Patient/Caregiver Education, Self-Care/Home Management,Soft Tissue Mobilization, Therapeutic Activities, Therapeutic Exercises Modalities Cold Pack/Ice Massage,Hot Packs Next Visit Focus/Plan Next Note Type Treatment Note Next Visit Plan LE/core strengthening, STM, joint mobilizations, increase activity tolerance
--- NOTE | 2024-10-31 12:11 | PT.OTN ---
Current Diagnoses Stiffness of other specified joint, not elsewhere classified (10/31/24) Spondylolisthesis, lumbosacral region (10/31/24) Spondylosis without myelopathy or radiculopathy, lumbar region (10/31/24) Physical Therapy Treatment Note PT-OP-A Visit Information Start: 10/13/24 16:20 Freq: Status: Active Protocol: Document 10/31/24 11:33 DCW (Rec: 10/31/24 12:11 DCW [id number]) Out-Patient Physical Therapy Visit Information Visit Information Visit Type Discharge Summary Visit Start Time 11: Visit Stop Time 12:00 Visit Number 6 Number of WINE SPECIALIST Visits 0 Evaluation Information Evaluation Date 10/13/24 Precautions Precautions *lingering left hemiparesis and left visual neglect s/p CVA, no peripherial sight front to L. PT-OP-B Current Condition Start: 10/13/24 16:20 Freq: Status: Active Protocol: Document 10/13/24 10:45 DCW (Rec: 10/13/24 16:36 DCW [id number]) Current Condition History of Current Condition Current Complaints Back pain, stiffness/tightness in morning, lumbar stenosis History of Current Condition Pt is a 74 year old male returning to skilled therapy secondary to ongoing low back pain. 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 Pt reports he underwent surgery at , then another one at [facility], spending one week in the hospital, and then discharged home. Pt's notes that it took about eight weeks, but is has largely returned to baseline. 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 Pt mobilizes with a wheelchair, as well as a walker and occasionally without an assistive device. Pt notes back pain is at its worst in the morning, has been diagnosed with arthritis and lumbar stenosis. Occasional bilateral radicular pain and cramping in his legs. Pt also has lingering left hemiparesis and left visual neglect s/p CVA. PT-OP-C Subjective Start: 10/13/24 16:20 Freq: Status: Active Protocol: Document 10/31/24 11:33 DCW (Rec: 10/31/24 12:11 DCW [id number]) OP-PT Subjective Patient Comments Patient Comments Dr. Maravilla said no more Physical Therapy, which I'm okay with, I need a break. PT-OP-E Functional Tests Start: 10/13/24 16:20 Freq: Status: Active Protocol: Document 10/13/24 10:45 DCW (Rec: 10/13/24 16:36 DCW [id number]) Functional Tests 30 Second Sit to Stand Test Score x6 repetitions Comments UE use PT-OP-F Manual Assessment Start: 10/13/24 16:20 Freq: Status: Active Protocol: Document 10/13/24 10:45 DCW (Rec: 10/13/24 16:36 DCW [id number]) Manual Assessments Soft Tissue Assessment Soft Tissue Mobility Assessment Moderate-severe tone along lumbar paraspinals, hip flexors, and hamstrings Joint Mobility Assessment Joint Mobility Assessment Lumbar hypomobility PT-OP-G Mobility & Gait Start: 10/13/24 16:36 Freq: Status: Active Protocol: Document 10/13/24 10:45 DCW (Rec: 10/13/24 16:37 DCW [id number]) OP Gait Assessment Comments Gait Comments Pt demonstrates AD-free gait, lateral trunk flexion, decreased stride length. Pt exhibits trunk and hip flexion throughout entire gait process. PT-OP-K Range of Motion Start: 10/13/24 16:20 Freq: Status: Active Protocol: Document 10/13/24 10:45 DCW (Rec: 10/13/24 16:36 DCW [id number]) Lumbar Spine Range of Motion Lumbar Spine Active Degrees Testing Position Standing Flexion 35 Extension 15 PT-OP-L Special Tests Start: 10/13/24 16:20 Freq: Status: Active Protocol: Document 10/13/24 10:45 DCW (Rec: 10/13/24 16:36 DCW [id number]) Special Tests Lumbar Spine Special Tests ZAKIA Test Results Bilateral ipsilateral pain A-P Shearing Test Results Negative Straight Leg Raise Test Results Hamstring tightness 35? R, 35? L Slump Test Results Hamstring tightness bilaterally Compression Test Results Negative Manual Traction Test Results c/o pain/tightness in hips PT-OP-M Strength Start: 10/13/24 16:20 Freq: Status: Active Protocol: Document 10/13/24 10:45 DCW (Rec: 10/13/24 16:36 DCW [id number]) Hip Strength Hip Manual Muscle Testing Right Flexion (L2) 4+ Good+ Extension (S1) 4- Good- Abduction 4 Good Adduction 4+ Good+ External Rotation 4+ Good+ Internal Rotation 4+ Good+ Left Flexion (L2) 4 Good Extension (S1) 4- Good- Abduction 4- Good- Adduction 4+ Good+ External Rotation 3- Fair- Internal Rotation 3- Fair- Knee Strength Knee Manual Muscle Testing Right Flexion (S2) 5 Normal Extension (L3) 5 Normal Left Flexion (S2) 4+ Good+ Extension (L3) 4+ Good+ PT-OP-Q Treatments Start: 10/13/24 16:20 Freq: Status: Active Protocol: Document 10/31/24 11:33 DCW (Rec: 10/31/24 12:11 DCW [id number]) Therapeutic Exercises Supine Exercises LTR Supine Exercise Name LTR Side bilateral Piriformis Stretch Supine Exercise Name Piriformis Stretch Side bilateral Hamstring Stretch Supine Exercise Name Supine with strap, supine with active knee extension Side bilateral Sitting Exercises Hamstring stretch Sitting Exercise Name In long sitting, sitting EOB Side bilateral PT-OP-T Assessment and Plan Start: 10/13/24 16:20 Freq: Status: Active Protocol: Document 10/31/24 11:33 DCW (Rec: 10/31/24 12:11 DCW [id number]) Physical Therapy Assessment Impairments Impairments Activity Tolerance,Functional Activities,Functional Mobility ,Gait,Pain,Posture,ROM,Soft Tissue Mobility,Strength,Tone Goals Three Impairment Pt exhibits decreased activity tolerance with score of x6 on 30sStS Residential Goal (LTG) Pt to improve 30sStS score to at least x9 to demonstrate improved activity tolerance LTG Duration 01/11/25 Two Impairment Limitations in lumbar flexion (35?) Joy Operator Goal (LTG) Pt to exhibit improvement in lumbar mobility to >55? flexion in order to demonstrate increased lumbar mobility, increasing ability to acute care certified nursing assistant an upright posture . LTG Duration 01/11/25 One Impairment Pt does not have an appropriate home exercise program Short Term Goal (STG) Pt to be independent and compliant with an appropriate HEP STG Duration 11/12/24 Assessment Summary Assessment Pt reports he and his affirmative action specialist are happy with current level of function, requests discharge from skilled therapy at this time. Physical Therapy Plan Frequency and Duration Frequency of Treatment 2x/Week Plan of Care Start Date 10/13/24 Plan of Care End Date 01/11/25 Therapeutic Interventions Therapeutic Interventions Balance Training,Gait Training ,Home Exercise Program,Joint Mobilizations,Manual Therapy, Neuromuscular Re-education, Patient/Caregiver Education, Self-Care/Home Management,Soft Tissue Mobilization, Therapeutic Activities, Therapeutic Exercises Modalities Cold Pack/Ice Massage,Hot Packs Discharge Physical Therapy Discharge Reasons Patient Request Next Visit Focus/Plan Next Note Type Discharge Summary
== END 2024-11-13 09:41 | disposition home or self-care (01) ==
LOC: PHYS 11:30
PROVIDERS: Family Provider Physical Medicine & Rehabilitation; PCP Internal Medicine; Referring Provider Physical Medicine & Rehabilitation; Visit Provider Physical Medicine & Rehabilitation
DX: M43.17 Spondylolisthesis, lumbosacral region (principal); M47.816 Spondylosis without myelopathy or radiculopathy, lumbar region; M25.69 Stiffness of other specified joint, not elsewhere classified
CPT/HCPCS: 97110; 97116; 97140; 97163

== ENCOUNTER → 2025-05-19 14:28 | Outpatient (CLI) | payer MEDICARE, OTHER, SELFPAY ==
[2024-07-29 08:58] VITALS: BMI 68.0
--- NOTE | 2025-05-19 | DI.US.S_ITS ---
PROCEDURE: US RETRO PERITONEAL LIMITED INDICATIONS: F/U AAA TECHNIQUE: Real time scanning was performed of the aorta and iliac arteries, with image documentation. COMPARISON: None. FINDINGS: Aorta: Proximal aortic diameter measures 3.0 cm, previously 3.2 centimeter. Mid to distal aorta measures a maximum diameter of 3.3 x 4.0 centimeter, previously 3.0 x 3.7 centimeter. Iliac arteries: Right common iliac artery measures 1.3 cm. Left common iliac artery measures 1.4 cm. IMPRESSION: Minimal interval growth of the bilobed infrarenal aortic aneurysm, max diameter of 4.0 centimeter, previously 3.7 centimeter. One year follow-up is recommended per consensus guidelines. Dictated by: Wes Olmos M.D. on 05/20/2025 at 10:54 Approved by: Wes Olmos M.D. on 05/20/2025 at 10:55
--- NOTE | 2025-05-19 14:30 | DI.CT.S_ITS ---
PROCEDURE: CT LUNG LOW DOSE SCREENING INDICATIONS: LOW DOse SCREENING TECHNIQUE: Noncontrast 2.0-2.5 mm thick sections acquired from the pulmonary apices to the posterior costophrenic angles. 7 mm thick axial MIP, and 5 mm coronal and sagittal reformats were then acquired. For radiation dose reduction, the following was used: automated exposure control, adjustment of mA and/or kV according to patient size. COMPARISON: [facility], CT, CT LUNG LOW DOSE SCREENING, 05/16/2024, 10:09. FINDINGS: Image quality: Diagnostic. Lower Neck: No enlarged lymph nodes. Thyroid: No thyroid nodules which require sonographic follow up, per consensus guidelines. Axillae: No enlarged lymph nodes. Chest Wall: Unremarkable. Bones: Unremarkable. Lungs and Pleura: No pneumothorax or pleural effusions. No consolidations. Emphysematous changes with bibasilar scarring. Heart: Heart size is normal. No pericardial effusion. Thoracic Vessels: Aneurysmal dilation of the ascending thoracic aorta as well focal outpouching of the descending thoracic aorta unchanged. Mediastinum and Alexa: No enlarged lymph nodes. Esophagus: No wall thickening. Prominent hiatal hernia. Upper Abdomen: Visualized upper abdomen solid organs and bowel loops appear normal. IMPRESSION: No suspicious pulmonary nodules. LUNG-RADS 1; continued annual screening, if eligible. Clinically Significant Non-pulmonary Findings: Stable aortic aneurysmal dilation Dictated by: Mikala Balbuena M.D. on 05/19/2025 at 21:11 Approved by: Mikala Balbuena M.D. on 05/19/2025 at 21:14
== END ==
PROVIDERS: Family Provider Physical Medicine & Rehabilitation; PCP Internal Medicine; Referring Provider Internal Medicine; Visit Provider Internal Medicine
DX: I71.40 Abdominal aortic aneurysm, without rupture, unspecified (principal); Z12.2 Encounter for screening for malignant neoplasm of respiratory organs; E04.2 Nontoxic multinodular goiter
CPT/HCPCS: 71271; 76706; 76775

== ENCOUNTER → 2025-06-02 11:42 | Outpatient (CLI) | payer MEDICARE, OTHER, SELFPAY ==
[2024-07-29 08:58] VITALS: BMI 68.0
--- NOTE | 2025-06-02 11:51 | DI.US.S_ITS ---
PROCEDURE: US THYROID INDICATIONS: AAA/LUNG CANCER SCREENING/THYROID TECHNIQUE: Real-time scanning was performed of the thyroid gland, with image documentation. COMPARISON: [facility], US, US THYROID, 05/16/2024, 10:49. FINDINGS: Thyroid: Right lobe measures 3.7 x 1.5 x 1.4 cm. Left lobe measures 2.9 x 2.6 x 2.0 cm. Isthmus is 0.3 cm thick. Echotexture is homogeneous. Nodule number: 1 Location: Left mid Size: 2.6 x 1.8 x 1.8 cm, previously 2.1 x 1.8 x 1.9 cm. Composition: Solid Echogenicity: Hypoechoic Shape: wider than tall. Margins: Smooth Echogenic foci: None Total points: 4 ACR TI-RADS category: TI-RADS 4 IMPRESSION: Compared to prior ultrasound on 05/16/2024, mildly increased size of left mid TI-RADS 4 nodule measuring up to 2.6 cm. Nodule meets ACR criteria for ultrasound-guided FNA as outlined below. Previously described nodules are not visualized on current exam. ACR TI-RADS definitions and recommendations: TI-RADS 1 (benign): 0 points. FNA not needed. TI-RADS 2 (not suspicious): 2 points. FNA not needed. TI-RADS 3: 3 points. * FNA if 2.5 cm or larger, follow up if 1.5 cm or larger (at 1, 3, and 5 years). TI-RADS 4: 4-6 points. * FNA if 1.5 cm or larger, follow up if 1 cm or larger (at 1, 2, 3, and 5 years). TI-RADS 5: 7 points or more. * FNA if 1 cm or larger, follow up if 0.5 cm or larger (every year for 5 years). Approved by: Mariama Leyva M.D.,Ph.D. on 06/03/2025 at 13:38
== END ==
PROVIDERS: Family Provider Physical Medicine & Rehabilitation; PCP Internal Medicine; Referring Provider Internal Medicine; Visit Provider Internal Medicine
DX: E04.1 Nontoxic single thyroid nodule (principal)
CPT/HCPCS: 76536

== ENCOUNTER → 2025-08-17 14:21 | Outpatient (CLI) | payer MEDICARE, OTHER, SELFPAY ==
[2024-07-29 08:58] VITALS: BMI 68.0
--- NOTE | 2025-08-17 | PATH_ITS ---
Note [facility] Accession Number: [id number] TESTS RESULT FLAG UNITS REF RANGE LAB Clinician Provided Cytology Information No. of containers..01 ThinPrep Vial No. of containers..08 Previously Prepared Cytology Slide Source: LEFT THYROID DIAGNOSIS: LEFT THYROID NODULE #2, FINE NEEDLE ASPIRATION. NEGATIVE FOR MALIGNANT CELLS. ADEQUATE FOR EVALUATION. FOLLICULAR GROUPS ARE PRESENT. BENIGN FOLLICULAR (GOITEROUS) NODULE ([place] CATEGORY II), SEE COMMENT. COMMENT: MICROSCOPIC EXAMINATION REVEALS A MILDLY CELLULAR ASPIRATE, COMPOSED OF COLLOID, FOLLICULAR GROUPS WITHOUT SIGNIFICANT CYTOLOGIC OR ARCHITECTURAL ATYPIA, AND BACKGROUND MACROPHAGES. THESE FINDINGS SUPPORT A BENIGN FOLLICULAR (GOITEROUS) NODULE. CORRELATION WITH CLINICAL AND RADIOGRAPHIC FINDINGS IS RECOMMENDED. ACCORDING TO THE [place] REPORTING SYSTEM FOR THYROID CYTOPATHOLOGY, THE RISK OF MALIGNANCY IN THE CATEGORY BENIGN-CATEGORY II IS 0-3%; THEREFORE RECOMMEND CONTINUED ULTRASOUND SURVEILLANCE WITH REPEAT FNA IF THE NODULE SIGNIFICANTLY INCREASES IN SIZE. Pathologist ICD10: 01 E04.2 Signed out by: Sarah Perez MD, Pathologist NPI- [id number] Performed by: Bret Salvador, Paint Preparer ([facility]) Gross description: 01 30 CC, RED, CLEAR In cytolyt with 9 alcohol fixed and 9 quick stained slides. 1 RNA vial will on Dec 04, 2026. MICHAEL JOHNSON 08/18/2025 1222 Local FLAG LEGEND: L-Low Normal,H-High Normal,LL-Alert Low,HH-Alert High <-Panic Low,>-Panic High,A-Abnormal,AA-Critical Abnormal Performed at: 01 =Z [facility], [place] [address] Gerson Wasserman MD, Performed at: [address] [facility] [address], [place], [place] [id number] MD Gerson Wasserman MD Phone: [phone]
--- NOTE | 2025-08-17 14:23 | DI.US.S_ITS ---
PROCEDURE: US FINE NEEDLE ASPIRATION INDICATIONS: thyroid nodule TECHNIQUE: The indications, alternatives, benefits, risks, and complications of the procedure were explained to the patient. Written informed consent was obtained and placed in the chart. The thyroid region was examined sonographically and a site was chosen for ultrasound guided percutaneous sampling. The skin was prepared and draped in the usual fashion, and anesthetized with 1% lidocaine infiltrated from the skin down to the thyroid gland. Multiple passes were then performed, with contents emptied into an appropriate pathology specimen container. A bandage was applied to the area of access at completion of the study. COMPARISON: [facility], US, US FINE NEEDLE ASPIRATION, 07/04/2022, 14:51. FINDINGS: Location(s) of lesion(s) sampled: Lower pole left thyroid lobe Pound: 25 gauge and 22 gauge hypodermic needles. Number of passes: 9 Medications: 1% lidocaine for local anaesthesia. Complications: None. IMPRESSION: Successful ultrasound-guided thyroid nodule fine needle aspiration, with cytology results pending. Please see chart below for management recommendations based on cytology results. [facility] ReportingRecommendationsNon-diagnostic* Repeat US-guided FNA, with on-site cytology evaluation if possible. * Repeated non-diagnostic nodules without high suspicion US features: close observation vs surgical consult. * Consider surgery if nodule has high suspicion US features, grows >20% in 2 dimensions on followup, or patient has clinical risk factors for malignancy. Benign* If nodule has high suspicion US features: repeat US and FNA within 12 months. * If nodule has low to intermediate suspicion US features: repeat US at 12-24 months. If nodule grows (20% increase in at least 2 dimensions, with minimal increase of 2 mm or >50% change in volume), or development of new suspicious US features, then repeat FNA or continue followup. * If nodule has very low suspicion US features: followup US at >24 months. Atypia of undetermined significance, follicular lesion of undetermined significanceRepeat FNA, molecular testing, followup US, or surgical consult.Follicular neoplasm, suspicious for follicular neoplasmSurgical consult; also consider molecular testing. Suspicious for malignancySurgical consult.MalignantSurgical consult. Dictated by: Lonny Ernst M.D. on 08/17/2025 at 16:47 Approved by: Lonny Ernst M.D. on 08/17/2025 at 16:47
== END ==
LOC: US 14:22
PROVIDERS: PCP Internal Medicine; Referring Provider Internal Medicine; Visit Provider Internal Medicine
DX: E04.2 Nontoxic multinodular goiter (principal)
CPT/HCPCS: 10005

== ENCOUNTER 2025-10-29 10:14 | Outpatient (CLI) | payer MEDICARE, OTHER, SELFPAY ==
[2024-07-29 08:58] VITALS: BMI 68.0
[2025-10-29] VITALS (7 sets, daily range): BP systolic 117–134; BP diastolic 68–89; PULSE 46–48; RESP 13–21; TEMP 36.4; O2SAT 96–100
[2025-10-29] MEDS: MIDAZOLAM 2 MG/2 ML VIAL 1 MG IV (11:59)
[2025-10-29] MEDS: BETAMETHASONE 30 MG/5 ML MDV 12 MG INJ (12:06)
--- NOTE | 2025-10-29 12:13 | P.PCN_ITS ---
Date/Time/Diagnoses Date of procedure: 10/29/25 Time of procedure: 12:13 Pre-procedure diagnosis: 1. HNP WITH RADICULAR FEATURES, 2. MULTILEVEL CENTRAL STENOSIS, Post-procedure diagnosis: same Procedure Notes Procedure: 1. FLUOROSCOPICALLY GUIDED CONTRAST CONTROLLED INTERLAMINAR EPIDURAL STEROID INJECTION - L5/S1 Indications: Gerd is referred by Dr. Cortes for treatment of Bilateral Foraminal Stenosis L>R LE symptoms. Physician: Leon Maravilla Total Fluoroscopy time (seconds): 7 Total sedation minutes: 10 Complications: none Procedure in detail & Post-procedure care: FINDINGS Multilevel Central Spinal Stenosis with Nerve Root Compression DESCRIPTION OF PROCEDURE Fluoroscopically guided, contrast-controlled L5/S1 translaminar epidural steroid injection. Following review of allergy and review of potential side effects and complications, including, but not necessarily limited to, infection, allergic reaction, local tissue breakdown, temporary as well as permanent nerve injury, paralysis, stroke and possible , the patient indicated that the patient understood and agreed to proceed. An informed consent document was signed by the patient, witnessed by a nurse, and placed in the patient's chart. Additionally, other treatment options including modalities, medications, and physical therapy were reviewed with the patient. After review of previous anaesthesic history and IV conscious sedation the patient was deemed safe to proceed with today?s procedure with IV conscious sedation as ASA class II designation. Safety time-out was performed to confirm patient ID, procedure to be performed and site of procedure. IV sedation was accomplished with a combination of 1mg of Versed administered by the RN after DO order, titrated to patient comfort during the course of the procedure while the patient remained responsive to all verbal commands. In the prone position, following sterile prep and drape of the lumbar region, the L5/S1 translaminar space was identified fluoroscopically. The skin was anesthetized via a 25-gauge, 1.5-inch needle with 1% lidocaine solution. At this point, a 22-gauge short bevel spinal needle was atraumatically introduced a nd advanced under fluoroscopic guidance into the region of the L5/S1 translaminar space. Depth was confirmed on lateral view. Radiological data, including multiple fluoroscopic views of the lumbar spine, reveal a spinal needle at the L5/S1 translaminar space. Lateral views then show placement of the needle in the epidural space. Subsequent views show contrast material flowing superiorly and inferiorly in the epidural space. No vascular or intrathecal uptake is observed. At this point, using loss of resistance technique with saline and air, the epidural space was entered. This was confirmed following negative aspiration with injection of approximately 1.5cc of Isovue 200, showing excellent epidural flow without vascular or intrathecal uptake. At this point, 1cc of 0.25% marcaine solution combined with 3cc or 10mg of dexamethasone and 12mg of betamethasone was injected without incident. The patent tolerated the procedure without signs of symptoms of complications prior to transfer to the recovery area for further monitoring. The patient was then transferred to the recovery area where they were observed for an appropriate period of time after the injection. The patient reported a VAS score of 6 prior to the procedure and a post-procedure VAS of 0. POST OP INSTRUCTIONS The patient was provided a Pain Log to continue to record their response to the target-specific procedure prior to follow-up visit with their referring physician. Additionally, specific post-injection care instructions and a contact number to our office were provided if concerns arise regarding possible complications associated with the procedure are suspected.
== END 2025-10-29 13:07 | disposition home or self-care (01) ==
PROVIDERS: PCP Internal Medicine; Referring Provider Physical Medicine & Rehabilitation; Visit Provider Physical Medicine & Rehabilitation
DX: M51.17 Intervertebral disc disorders with radiculopathy, lumbosacral region (principal); M48.07 Spinal stenosis, lumbosacral region
CPT/HCPCS: 62323; 99152; J0702; J1100; J2250